=== PATIENT | female | born 1990 | race Caucasian/White ===

== ENCOUNTER 2017-12-23 07:53 | Emergency (ER) | payer BC, SELFPAY ==
--- OUTSIDE RECORDS SUMMARY | 2017-12-23 07:55 | XMS REPORT | Clinical Summary ---
:1990 Author Organization [facility] Address [address] [place] [address] Care Team Providers Name Role Phone Jae Dong MD Primary Care Provider Allergies Active Allergy Reactions Severity Noted Date Comments Ciprofloxacin GI Intolerance Medium 05/04/2017 Nausea & Vomiting Current Medications Prescription Sig. Disp. Refills Start Date End Date Status acetaminophen-codei Take 1 tablet Active ne (TYLENOL WITH by mouth every CODEINE #3) 300-30 4 (four) hours mg per tablet as needed for moderate pain. promethazine Take 25 mg by Active (PHENERGAN) 25 MG mouth every 6 tablet (six) hours as needed for nausea or vomiting. ranitidine (ZANTAC) Take 150 mg by Active 150 MG tablet mouth nightly as needed for heartburn. CARAFATE 100 mg/mL 05/03/2017 Discontinued suspension 7 PEPCID 20 mg tablet 05/03/2017 Discontinued 7 ZOFRAN, 05/03/2017 Discontinued HYDROCHLORIDE, 4 mg 7 tablet acetaminophen-codei 05/01/2017 Discontinued ne (TYLENOL WITH 7 CODEINE #3) 300-30 mg per tablet promethazine 05/01/2017 Discontinued (PHENERGAN) 25 MG 7 tablet sucralfate Take 1 g by Discontinued (CARAFATE) 100 mouth 3 7 mg/mL suspension (three) times a day as needed. famotidine (PEPCID) Take 20 mg by Discontinued 20 MG tablet mouth every 12 7 (twelve) hours. ondansetron Take 4 mg by Discontinued (ZOFRAN) 4 MG mouth every 12 7 tablet (twelve) hours as needed for nausea or vomiting. esomeprazole Take 20 mg by Discontinued (NexIUM) 20 MG mouth 2 (two) 7 capsule times a day. amitriptyline Take 1 tablet 30 tablet 0 05/06/2017 (ELAVIL) 25 MG (25 mg total) 7 tablet by mouth nightly for 30 days. sucralfate Take 10 mL (1 414 mL 2 05/07/2017 (CARAFATE) 100 g total) by 7 mg/mL suspension mouth every 6 (six) hours for 30 days. ALPRAZolam (XANAX) Take 1 tablet 15 tablet 0 05/07/2017 0.25 MG tablet (0.25 mg 7 total) by mouth daily as needed for anxiety for up to 15 days. ondansetron Take 1 tablet 20 tablet 0 05/07/2017 (ZOFRAN) 4 MG (4 mg total) 7 tablet by mouth every 12 (twelve) hours as needed for nausea or vomiting for up to 30 days. acetaminophen-codei Take 1 tablet 30 tablet 0 05/07/2017 ne 300-15 mg per by mouth every 7 tablet 4 (four) hours as needed for moderate pain for up to 10 days. esomeprazole Take 1 capsule 60 capsule 0 05/07/2017 (NexIUM) 40 MG (40 mg total) 7 capsule by mouth 2 (two) times a day for 30 days. ferrous sulfate 325 Take 1 tablet 30 tablet 0 05/07/2017 (65 FE) MG EC (325 mg total) 7 tablet by mouth daily for 30 days. Active Problems Problem Noted Date Peptic ulcer disease 05/12/2017 Anxiety 05/12/2017 Iron deficiency anemia 05/12/2017 Dehydration 05/06/2017 Tachycardia 05/04/2017 Encounters Date Type Specialty Care Team Description 05/07/2017 Anesthesia Event General Internal [facility], Medicine Estevan Hammonds MD 05/07/2017 Procedure Pass General Surgery 05/07/2017 Surgery General Surgery Ernie Galeana EGD WITH AMAYA Benitez MD USING COLD FORCEPS 05/07/2017 Procedure Pass Gastroenterology 05/04/2017 Hospital General Internal Brgeri, Kevin Tachycardia (Primary Dx); - Encounter Dyllan Irvin, MD Intractable vomiting with nausea, unspecified vomiting type; 05/07/2017 Perry, Dehydration; MD Mone Abdominal pain, acute, generalized; Leukocytosis, unspecified type; SIRS (systemic inflammatory response syndrome); PUD (peptic ulcer disease); Anxiety after 12/22/2016 Immunizations Name Dates Previously Given Next Due Pneumococcal Conjugate 13-Valent 05/06/2017 Social History Tobacco Use Types Packs/Day Years Used Date Never Assessed Sex Assigned at Date Recorded Not on file Last Filed Vital Signs Vital Sign Reading Time Taken Blood Pressure 108/66 05/07/2017 10:15 AM [employer] Pulse 73 05/07/2017 10:15 AM [employer] Temperature 36.8 C (98.3 F) 05/07/2017 9:45 AM [employer] Respiratory Rate 12 05/07/2017 10:15 AM [employer] Oxygen Saturation 100% 05/07/2017 10:15 AM [employer] Inhaled Oxygen Concentration - - Weight - - Height 162.6 cm (5' 4") 05/04/2017 11:45 AM [employer] Body Mass Index - - Plan of Treatment Health Maintenance Due Date Last Done Comments CERVICAL CANCER SCREENING 2010 INFLUENZA VACCINE 01/11/2018 Procedures Procedure Name Priority Date/Time Associated Comments Diagnosis SURGICAL PATHOLOGY Routine 05/07/2017 10:11 Results for this REQUEST AM [employer] procedure are in the results section. EGD WITH BIOPSY 05/07/2017 8:15 G.I BLEED AM [employer] ESTIMATED GFR Routine 05/07/2017 5:48 Results for this AM [employer] procedure are in the results section. TOTAL IRON BINDING Routine 05/07/2017 5:48 Results for this CAPACITY AM [employer] procedure are in the results section. PROTHROMBIN TIME WITH Routine 05/07/2017 5:48 Results for this INR AM [employer] procedure are in the results section. BASIC METABOLIC PANEL Routine 05/07/2017 5:48 Results for this AM [employer] procedure are in the results section. HC COMPLETE BLD COUNT Routine 05/07/2017 5:48 Results for this W/AUTO DIFF AM [employer] procedure are in the results section. ESTIMATED GFR Routine 05/06/2017 5:02 Results for this AM [employer] procedure are in the results section. COMPREHENSIVE Routine 05/06/2017 5:02 Results for this METABOLIC PANEL AM [employer] procedure are in the results section. CBC HEMOGRAM Routine 05/06/2017 5:02 Results for this AM [employer] procedure are in the results section. URINE DRUGS OF ABUSE Routine 05/05/2017 4:30 Results for this SCREEN PM [employer] procedure are in the results section. GASTRIN LEVEL Routine 05/05/2017 12:39 Results for this PM [employer] procedure are in the results section. ESTIMATED GFR Routine 05/05/2017 10:30 Results for this AM [employer] procedure are in the results section. COMPREHENSIVE Routine 05/05/2017 10:30 Results for this METABOLIC PANEL AM [employer] procedure are in the results section. HC COMPLETE BLD COUNT Routine 05/05/2017 10:30 Results for this W/AUTO DIFF AM [employer] procedure are in the results section. BLOOD CULTURE, AEROBIC Routine 05/04/2017 4:59 Results for this & ANAEROBIC PM [employer] procedure are in the results section. BLOOD CULTURE, AEROBIC Routine 05/04/2017 4:56 Results for this & ANAEROBIC PM [employer] procedure are in the results section. CT ABDOMEN PELVIS W STAT 05/04/2017 4:38 Results for this CONTRAST PM [employer] procedure are in the results section. XR CHEST 2 VW STAT 05/04/2017 2:59 Results for this PM [employer] procedure are in the results section. US GALLBLADDER STAT 05/04/2017 1:49 Results for this PM [employer] procedure are in the results section. HCG QUALITATIVE, URINE STAT 05/04/2017 12:17 Results for this SCREEN PM [employer] procedure are in the results section. URINALYSIS SCREEN AND STAT 05/04/2017 12:17 Results for this MICROSCOPY, WITH PM [employer] procedure are in REFLEX TO CULTURE the results section. URINE CULTURE STAT 05/04/2017 12:17 Results for this PM [employer] procedure are in the results section. HC COMPLETE BLD COUNT STAT 05/04/2017 11:59 Results for this W/AUTO DIFF AM [employer] procedure are in the results section. LIPASE LEVEL STAT 05/04/2017 11:48 Results for this AM [employer] procedure are in the results section. ESTIMATED GFR STAT 05/04/2017 11:48 Results for this AM [employer] procedure are in the results section. COMPREHENSIVE STAT 05/04/2017 11:48 Results for this METABOLIC PANEL AM [employer] procedure are in the results section. after 12/22/2016 Results Surgical pathology request (05/07/2017 10:11 AM) [facility] DEPARTMENT OF PATHOLOGY AND GENOMIC MEDICINE Surgical pathology report See link below for PDF [facility] DEPARTMENT OF Lab Report PATHOLOGY AND GENOMIC MEDICINE Result status This is Final Report to [facility] DEPARTMENT OF [id number] PATHOLOGY AND GENOMIC MEDICINE Performing Organization Address City/[facility] Phone Number [facility] DEPARTMENT OF PATHOLOGY AND [address] [place] [phone] [facility] Total iron binding capacity (05/07/2017 5:48 AM) Iron level 12 (L) 37 - 145 ug/dL [facility] DEPARTMENT OF PATHOLOGY AND GENOMIC MEDICINE Iron binding capacity 367 200 - 400 ug/dL [facility] DEPARTMENT OF PATHOLOGY AND GENOMIC MEDICINE % Saturation 3.3 (L) 15.0 - 38.0 % [facility] DEPARTMENT OF PATHOLOGY AND GENOMIC MEDICINE Specimen Plasma specimen Performing Organization Address [facility] Phone Number [facility] DEPARTMENT PATHOLOGY AND [address] [place] [address] [facility] Estimated GFR (05/07/2017 5:48 AM)Only the most recent of4 resultswithin the time period is included. GFR Non Af Amer >90 mL/min/1.73 m2 [facility] DEPARTMENT OF PATHOLOGY AND GENOMIC MEDICINE GFR Af Amer >90 mL/min/1.73 m2 [facility] DEPARTMENT OF Comment: PATHOLOGY AND [employer] Chronic kidney disease: <60 mL/min/1.73m2 MEDICINE Kidney failure: <15 mL/min/1.73m2 The estimated GFR is calculated from the IDMS-traceable Modification of Diet in Renal Disease Equation. The accuracy of the calculation is poor when the creatinine is normal. Calculated values >90 mL/min/1.73m2 are not reported. This equation has not been validated in children (<18 years), women, the elderly (>70 years), or ethnic groups other than Caucasians and Americans. Specimen Plasma specimen Performing Organization Address City/[facility] Phone Number [facility] DEPARTMENT OF PATHOLOGY AND [address] [place] [phone] [facility] Prothrombin time with INR (05/07/2017 5:48 AM) Prothrombin time 13.5 12.0 - 15.0 sec [facility] DEPARTMENT OF PATHOLOGY AND GENOMIC MEDICINE INR 1.0 [facility] DEPARTMENT OF Comment: PATHOLOGY AND GENOMIC The International Normalized Ratio (INR) is a therapeutic MEDICINE monitoring tool for patients who are stable on oral anticoagulant therapy. An INR of 2.0-3.0 is suggested for deep vein thrombosis/pulmonary embolism. Specimen Blood Performing Organization Address City/[facility]/Zipcode Phone Number [facility] DEPARTMENT OF PATHOLOGY AND [address] [place] [phone] GENOMIC MEDICINE CBC with platelet and differential (05/07/2017 5:48 AM)Only the most recent of3 resultswithin the time period is included. WBC 8.17 4.50 - 11.00 k/uL [facility] DEPARTMENT OF PATHOLOGY AND GENOMIC MEDICINE RBC 3.51 (L) 4.20 - 5.50 m/uL [facility] DEPARTMENT OF PATHOLOGY AND GENOMIC MEDICINE HGB 7.9 (L) 12.0 - 16.0 g/dL [facility] DEPARTMENT OF PATHOLOGY AND GENOMIC MEDICINE HCT 27.2 (L) 37.0 - 47.0 % [facility] DEPARTMENT OF PATHOLOGY AND GENOMIC MEDICINE MCV 77.5 (L) 82.0 - 100.0 fL [facility] DEPARTMENT OF PATHOLOGY AND GENOMIC MEDICINE MCH 22.5 (L) 27.0 - 34.0 pg [facility] DEPARTMENT OF PATHOLOGY AND GENOMIC MEDICINE MCHC 29.0 (L) 31.0 - 37.0 g/dL [facility] DEPARTMENT OF PATHOLOGY AND GENOMIC MEDICINE RDW - SD 48.6 37.0 - 55.0 fL [facility] DEPARTMENT OF PATHOLOGY AND GENOMIC MEDICINE MPV 10.2 8.8 - 13.2 fL [facility] DEPARTMENT OF PATHOLOGY AND GENOMIC MEDICINE Platelet count 411 (H) 150 - 400 k/uL [facility] DEPARTMENT OF PATHOLOGY AND GENOMIC MEDICINE Nucleated RBC 0.00 /100 WBC [facility] DEPARTMENT OF PATHOLOGY AND GENOMIC MEDICINE Neutrophils 53.3 39.0 - 69.0 % [facility] DEPARTMENT OF PATHOLOGY AND GENOMIC MEDICINE Lymphocytes 30.1 25.0 - 45.0 % [facility] DEPARTMENT OF PATHOLOGY AND GENOMIC MEDICINE Monocytes 10.3 (H) 0.0 - 10.0 % [facility] DEPARTMENT OF PATHOLOGY AND GENOMIC MEDICINE Eosinophils 5.6 (H) 0.0 - 5.0 % [facility] DEPARTMENT OF PATHOLOGY AND GENOMIC MEDICINE Basophils 0.6 0.0 - 1.0 % [facility] DEPARTMENT OF PATHOLOGY AND GENOMIC MEDICINE Immature granulocytes 0.1Comment: 0.0 - 1.0 % [facility] DEPARTMENT OF "Immature PATHOLOGY AND GENOMIC granulocytes" MEDICINE (promyelocytes, myelocytes, metamyelocytes) Specimen Blood Performing Organization Address City/State/Zipcode Phone Number [facility] DEPARTMENT OF PATHOLOGY AND [address] [place] [address] GENOMIC MEDICINE Basic metabolic panel (05/07/2017 5:48 AM) Sodium 137 135 - 148 mEq/L [facility] DEPARTMENT OF PATHOLOGY AND GENOMIC MEDICINE Potassium 4.2 3.5 - 5.0 mEq/L [facility] DEPARTMENT OF PATHOLOGY AND GENOMIC MEDICINE Chloride 100 98 - 112 mEq/L [facility] DEPARTMENT OF PATHOLOGY AND GENOMIC MEDICINE CO2 24 24 - 31 mEq/L [facility] DEPARTMENT OF PATHOLOGY AND GENOMIC MEDICINE Anion gap 13 7 - 15 mEq/L [facility] DEPARTMENT OF PATHOLOGY Comment: AND [facility] Starting from September , anion gap calculation no longer incorporates potassium. Please note the change. BUN 6 6 - 20 mg/dL [facility] DEPARTMENT OF PATHOLOGY AND GENOMIC MEDICINE Creatinine 0.7 0.5 - 0.9 mg/dL [facility] DEPARTMENT OF PATHOLOGY AND GENOMIC MEDICINE Glucose 93 65 - 99 mg/dL [facility] DEPARTMENT OF PATHOLOGY AND GENOMIC MEDICINE Calcium 8.8 8.3 - 10.2 mg/dL [facility] DEPARTMENT OF PATHOLOGY AND GENOMIC MEDICINE Specimen Plasma specimen Performing Organization Address City/State/Zipcode Phone Number [facility] DEPARTMENT OF PATHOLOGY [address] [address] [facility] CBC hemogram (05/06/2017 5:02 AM) WBC 8.66 4.50 - 11.00 k/uL [facility] DEPARTMENT OF PATHOLOGY AND GENOMIC MEDICINE RBC 3.28 (L) 4.20 - 5.50 m/uL [facility] DEPARTMENT OF PATHOLOGY AND GENOMIC MEDICINE HGB 7.6 (L) 12.0 - 16.0 g/dL [facility] DEPARTMENT OF PATHOLOGY AND GENOMIC MEDICINE HCT 25.6 (L) 37.0 - 47.0 % [facility] DEPARTMENT OF PATHOLOGY AND GENOMIC MEDICINE MCV 78.0 (L) 82.0 - 100.0 fL [facility] DEPARTMENT OF PATHOLOGY AND GENOMIC MEDICINE MCH 23.2 (L) 27.0 - 34.0 pg [facility] DEPARTMENT OF PATHOLOGY AND GENOMIC MEDICINE MCHC 29.7 (L) 31.0 - 37.0 g/dL [facility] DEPARTMENT OF PATHOLOGY AND GENOMIC MEDICINE RDW - SD 49.4 37.0 - 55.0 fL [facility] DEPARTMENT OF PATHOLOGY AND GENOMIC MEDICINE MPV 9.9 8.8 - 13.2 fL [facility] DEPARTMENT OF PATHOLOGY AND GENOMIC MEDICINE Platelet count 390 150 - 400 k/uL [facility] DEPARTMENT OF PATHOLOGY AND GENOMIC MEDICINE Nucleated RBC 0.20 /100 WBC [facility] DEPARTMENT OF PATHOLOGY AND GENOMIC MEDICINE Specimen Blood Performing Organization Address City/[facility] Phone Number [facility] DEPARTMENT OF PATHOLOGY [place] [address] GENOMIC MEDICINE Comprehensive metabolic panel (05/06/2017 5:02 AM)Only the most recent of3 resultswithin the time period is included. Sodium 136 135 - 148 mEq/L [facility] DEPARTMENT OF PATHOLOGY AND GENOMIC MEDICINE Potassium 4.1 3.5 - 5.0 mEq/L [facility] DEPARTMENT OF PATHOLOGY AND GENOMIC MEDICINE Chloride 100 98 - 112 mEq/L [facility] DEPARTMENT OF PATHOLOGY AND GENOMIC MEDICINE CO2 23 (L) 24 - 31 mEq/L [facility] DEPARTMENT OF PATHOLOGY AND GENOMIC MEDICINE Anion gap 13 7 - 15 mEq/L [facility] DEPARTMENT OF Comment: PATHOLOGY AND GENOMIC Starting from September , anion gap calculation MEDICINE no longer incorporates potassium. Please note the change. BUN 7 6 - 20 mg/dL [facility] DEPARTMENT OF PATHOLOGY AND GENOMIC MEDICINE Creatinine 0.7 0.5 - 0.9 mg/dL [facility] DEPARTMENT OF PATHOLOGY AND GENOMIC MEDICINE Glucose 90 65 - 99 mg/dL [facility] DEPARTMENT OF PATHOLOGY AND GENOMIC MEDICINE Calcium 8.4 8.3 - 10.2 mg/dL [facility] DEPARTMENT OF PATHOLOGY AND GENOMIC MEDICINE Protein 6.1 (L) 6.3 - 8.3 g/dL [facility] DEPARTMENT OF Comment: PATHOLOGY AND GENOMIC [place] 4.6-7.0 g/dL MEDICINE 1 week 4.4-7.6 g/dL 7 months-1year5.1-7.3 g/dL 1-2 years5.6-7.5 g/dL >3 years6.0-8.0 g/dL 18-150 6.3-8.3 g/dL Albumin 2.9 (L) 3.5 - 5.0 g/dL [facility] DEPARTMENT OF PATHOLOGY AND GENOMIC MEDICINE A/G ratio 0.9 0.7 - 3.8 [facility] DEPARTMENT OF PATHOLOGY AND GENOMIC MEDICINE Alkaline phosphatase 58 35 - 104 U/L [facility] DEPARTMENT OF PATHOLOGY AND GENOMIC MEDICINE AST 17 10 - 35 U/L [facility] DEPARTMENT OF PATHOLOGY AND GENOMIC MEDICINE ALT 16 5 - 50 U/L [facility] DEPARTMENT OF PATHOLOGY AND GENOMIC MEDICINE Total bilirubin <0.2 0.0 - 1.2 mg/dL [facility] DEPARTMENT OF PATHOLOGY AND GENOMIC MEDICINE Specimen Plasma specimen Performing Organization Address City/State/Zipcode Phone Number [facility] DEPARTMENT OF PATHOLOGY AND [address] [place] [phone] [facility] Urine drugs of abuse screen (05/05/2017 4:30 PM) Amphetamine screen, urine Negative [facility] DEPARTMENT OF PATHOLOGY AND GENOMIC MEDICINE Barbiturate screen, urine Negative [facility] DEPARTMENT OF PATHOLOGY AND GENOMIC MEDICINE Benzodiazepine screen, Negative [facility] DEPARTMENT OF urine PATHOLOGY AND GENOMIC MEDICINE Cannabinoid screen, urine Positive (A) [facility] DEPARTMENT OF PATHOLOGY AND GENOMIC MEDICINE Cocaine screen, urine Negative [facility] DEPARTMENT OF PATHOLOGY AND GENOMIC MEDICINE Methadone metabolite Negative [facility] DEPARTMENT OF (EDDP), urine PATHOLOGY AND GENOMIC MEDICINE Opiates screen, urine Positive (A) [facility] DEPARTMENT OF PATHOLOGY AND GENOMIC MEDICINE Oxycodone screen, urine Negative [facility] DEPARTMENT OF PATHOLOGY AND GENOMIC MEDICINE Phencyclidine screen, urine Negative [facility] DEPARTMENT OF PATHOLOGY AND GENOMIC MEDICINE Tricyclic screen, urine Negative [facility] DEPARTMENT OF Comment: PATHOLOGY AND GENOMIC Drug screen minimum concentration of detectability MEDICINE Holmkvxgtoir1557 ng/mL Barbiturates 200 ng/mL Lmsoakiuaegrrgz859 ng/mL Mmxwovl804 ng/mL Jhzovnubh490 ng/mL Iuqhnty857 ng/mL Yfmrawuit246 ng/mL Phencyclidine 25 ng/mL Jdtlssnhtdso85 ng/mL Qwcuwsyiqd7584 ng/mL Negative test results indicates presumptive evidence of lack of clinically significant drug concentration in this urine specimen. Positive test results are presumptive evidence of clinically significant drug concentration in this urine specimen. Testing performed for medical purposes only. Specimen Urine Performing Organization Address City/[facility] Phone Number [facility] DEPARTMENT OF [facility] AND [address] [place] [address] [facility] MEDICINE Gastrin level (05/05/2017 12:39 PM) Gastrin 136 (H) 0 - 100 pg/mL [facility] Comment: Performed by [facility], [address] [place], [place] [id number] [email or web address], Tai Paz MD - Lab. Director Specimen Serum Performing Organization Address City/[facility]/Zipcode Phone Number [facility] [address] [place] [address] Blood culture, aerobic & anaerobic (05/04/2017 4:59 PM)Only the most recent of2 resultswithin the time period is included. Blood culture isolate No growth after 5 days of incubation. [facility] DEPARTMENT OF Comment: PATHOLOGY AND GENOMIC Specimen Information MEDICINE Specimen Source: Blood Specimen Site: Wrist, left Specimen Blood - Wrist, left Performing Organization Address [facility] Phone Number [facility] DEPARTMENT OF PATHOLOGY AND [address] [place] [address] Abdomen Pelvis W Contrast (05/04/2017 4:38 PM) Narrative Performed At EXAMINATION:CT ABDOMEN PELVIS W CONTRAST [facility] CLINICAL HISTORY:ABDOMINAL PAIN TECHNIQUE: Multiple axial images of the abdomen and pelvis were obtained following intravenous administration of iodinated contrast. Sagittal and coronal computerized reformatted images were also obtained. Radiation dose reduction technique was utilized. COMPARISON:None. FINDINGS: Abdomen: The appendix is visualized and has a normal appearance. The kidneys function symmetrically. No calcified gallstones are seen. The liver, spleen, pancreas, and adrenal glands within normal limits. The abdominal aorta is of normal caliber. Pelvis: 1. No mass, fluid collection, or adenopathy is identified in the pelvis. IMPRESSION: No acute abnormality. [facility]-[id number] Procedure Note [facility], Radiology Results Incoming - 05/04/2017 4:46 PM [employer] EXAMINATION: CT ABDOMEN PELVIS W CONTRAST CLINICAL HISTORY: ABDOMINAL PAIN TECHNIQUE: Multiple axial images of the abdomen and pelvis were obtained following intravenous administration of iodinated contrast. Sagittal and coronal computerized reformatted images were also obtained. Radiation dose reduction technique was utilized. COMPARISON: None. FINDINGS: Abdomen: The appendix is visualized and has a normal appearance. The kidneys function symmetrically. No calcified gallstones are seen. The liver, spleen, pancreas, and adrenal glands within normal limits. The abdominal aorta is of normal caliber. Pelvis: 1. No mass, fluid collection, or adenopathy is identified in the pelvis. IMPRESSION: No acute abnormality. [id number] Performing Organization Address [facility]/Zipcode Phone Number [facility] [address] [place] [address] XR Chest 2 Vw (05/04/2017 2:59 PM) Narrative Performed At EXAMINATION:XR CHEST 2 VW [facility] CLINICAL HISTORY:Pneumonia COMPARISON:None. IMPRESSION: Frontal and lateral views reveal a normal cardiomediastinal silhouette. Lungs are clear. Pleural margins are sharp. The remainder of the examination is unremarkable. [facility]-[id number] Procedure Note [facility], Radiology Results Incoming - 05/04/2017 3:04 PM [employer] EXAMINATION: XR CHEST 2 VW CLINICAL HISTORY: Pneumonia COMPARISON: None. IMPRESSION: Frontal and lateral views reveal a normal cardiomediastinal silhouette. Lungs are clear. Pleural margins are sharp. The remainder of the examination is unremarkable. [facility]-[id number] Performing Organization Address [facility] Phone Number [facility] [address] [place] [address] [place] Gallbladder (05/04/2017 1:49 PM) Narrative Performed At EXAMINATION:US GALLBLADDER [facility] CLINICAL HISTORY:Cholecystitis COMPARISON:Gallbladder ultrasound from 01/18/2012 IMPRESSION: The gallbladder is unremarkable. No gallstones or sludge is identified. No pericholecystic fluid or gallbladder wall thickening. The common bile duct measures 0.4 cm and the gallbladder wall measures 0.1 cm. Both of these measurements are within normal limits. No radiographic evidence of acute cholecystitis. INCIDENTAL FINDINGS: The portal vein is patent and demonstrates hepatopedal flow. The diameter of the portal vein measures 1.1 cm. Flow velocity within the portal vein measures 45 cm/s. 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 No gallstones or sludge is identified. No pericholecystic fluid or gallbladder wall thickening. The common bile duct measures 0.4 cm and the gallbladder wall measures 0.1 cm. Both of these measurements are within normal limits. No radiographic evidence of acute cholecystitis. INCIDENTAL FINDINGS: The portal vein is patent and demonstrates hepatopedal flow. The diameter of the portal vein measures 1.1 cm. Flow velocity within the portal vein measures 45 cm/s. [facility]-[id number] Performing Organization Address [facility]/[place] Phone Number [facility] [address] [place] [address] Urinalysis screen and microscopy, with reflex to culture (05/04/2017 12:17 PM) Specimen site Clean catch [facility] DEPARTMENT OF PATHOLOGY AND GENOMIC MEDICINE Color, UA Straw [facility] DEPARTMENT OF PATHOLOGY AND GENOMIC MEDICINE Appearance, UA Clear [facility] DEPARTMENT OF PATHOLOGY AND GENOMIC MEDICINE Specific gravity, UA 1.014 1.001 - 1.035 [facility] DEPARTMENT OF PATHOLOGY AND GENOMIC MEDICINE pH, UA 6.0 5.0 - 8.5 [facility] DEPARTMENT OF PATHOLOGY AND GENOMIC MEDICINE Protein, UA Negative Negative [facility] DEPARTMENT OF PATHOLOGY AND GENOMIC MEDICINE Glucose, UA Negative Negative [facility] DEPARTMENT OF PATHOLOGY AND GENOMIC MEDICINE Ketones, UA 1+ (A) Negative [facility] DEPARTMENT OF PATHOLOGY AND GENOMIC MEDICINE Bilirubin, UA Negative Negative [facility] DEPARTMENT OF PATHOLOGY AND GENOMIC MEDICINE Blood, UA Negative Negative [facility] DEPARTMENT OF PATHOLOGY AND GENOMIC MEDICINE Nitrite, UA Negative Negative [facility] DEPARTMENT OF PATHOLOGY AND GENOMIC MEDICINE Urobilinogen, UA <2.0 <2.0 [facility] DEPARTMENT OF PATHOLOGY AND GENOMIC MEDICINE Leukocyte esterase, UA Negative Negative [facility] DEPARTMENT OF PATHOLOGY AND GENOMIC MEDICINE Epithelial cells, UA 7 /HPF [facility] DEPARTMENT OF PATHOLOGY AND GENOMIC MEDICINE WBC, UA 1 0 - 4 /HPF [facility] DEPARTMENT OF PATHOLOGY AND GENOMIC MEDICINE RBC, UA 1 0 - 2 /HPF [facility] DEPARTMENT OF PATHOLOGY AND GENOMIC MEDICINE Bacteria, UA Few None seen [facility] DEPARTMENT OF PATHOLOGY AND GENOMIC MEDICINE Yeast, UA None seen [facility] DEPARTMENT OF PATHOLOGY AND GENOMIC MEDICINE Yeast with pseudohyphae, UA None seen [facility] DEPARTMENT OF PATHOLOGY AND GENOMIC MEDICINE Specimen Urine Performing Organization Address City/[facility] Phone Number [facility] DEPARTMENT OF PATHOLOGY AND [address] [place], [place] [phone] [facility] hCG qualitative, urine screen (05/04/2017 12:17 PM) hCG qualitative, urine NegativeComment: [facility] DEPARTMENT OF Sensitivity of HCG test: 25 PATHOLOGY AND GENOMIC mIU/mL MEDICINE Specimen Urine Performing Organization Address City/[facility] Phone Number [facility] DEPARTMENT OF PATHOLOGY AND [address] [place] [phone] [facility] Urine culture (05/04/2017 12:17 PM) Urine culture SEE COMMENTComment: Bacteriuria [facility] DEPARTMENT OF PATHOLOGY screen negative. AND GENOMIC MEDICINE Performing Organization Address City/[facility]/Zipcode Phone Number [facility] DEPARTMENT OF PATHOLOGY AND [address] [place] [phone] [facility] Lipase level (05/04/2017 11:48 AM) Lipase 35 13 - 60 U/L [facility] DEPARTMENT OF PATHOLOGY AND GENOMIC MEDICINE Specimen Plasma specimen Performing Organization Address City/[facility]/Zipcode Phone Number [facility] DEPARTMENT OF PATHOLOGY AND [address] [place] [phone] [facility] after 12/22/2016 Insurance Payer Benefit Plan / Group Subscriber ID Type Phone Address BCBS BCBS CHOICE PPO/[employer] EMPL PPO xxxxxxxxxxxx PPO
--- OUTSIDE RECORDS SUMMARY | 2017-12-23 07:57 | XMS REPORT | Summary of Care ---
:1990 Author Organization [facility] Address [id number] [place] [phone]- Encounter HQ Vladislav(FIN) [id number] Date(s): 12/20/15 - 12/21/[address] [phone] Discharge Diagnosis: Leukocytosis Discharge Diagnosis: Abdominal pain Discharge Disposition: Home Attending Physician: Siddharth Edward MD Vital Signs Most recent to oldest [Reference Range]: 1 2 Temperature Oral [96.4-99.1 DegF] 98.1 DegF 97.9 DegF (12/20/15 11:57 PM) (12/20/15 4:28 PM) Blood Pressure [90-140/60-90 mmHg] 135/75 mmHg 143/78 mmHg (12/20/15 11:57 PM) *HI* (12/20/15 4:28 PM) Respiratory Rate [14-20 BRMIN] 16 BRMIN 18 BRMIN (12/20/15 11:57 PM) (12/20/15 4:28 PM) Peripheral Pulse Rate [60-100 bpm] 85 bpm 98 bpm (12/20/15 11:57 PM) (12/20/15 4:28 PM) Weight 87.727 kg (12/20/15 4:28 PM) Problem List Condition Effective Dates Status Health Status Informant Gastric ulcer(Confirmed) Resolved Allergies, Adverse Reactions, Alerts Substance Reaction Severity Status NKDA Active Medications Bentyl 20 mg, 2 mL, Route: IM, Drug form: INJ, ONCE, Dosing Weight 87.727, kg, Start date: 12/20/15 22:35:00 CDT, Stop date: 12/20/15 22:35:00 CDT Notes: (Same as: Bentyl) Start Date: 12/20/15 Stop Date: 12/20/15 Status: CompletedGI cocktail 30 mL, Route: PO, Drug Form: SUSP, Dosing Weight 87.727, kg, ONCE, STAT, Start date: 12/20/15 21:27:00 CDT, Stop date: 12/20/15 21:27:00 CDT Notes: G.I. Cocktail=antacid with simethicone 22.5 mL - lidocaine viscous 7.5 mL Start Date: 12/20/15 Stop Date: 12/20/15 Status: Completedmorphine Sulfate 4 mg, Route: IVP, Drug form: INJ, ONCE, Dosing Weight 87.727, kg, Priority: STAT , Start date: 12/20/15 19:36:00 CDT, Stop date: 12/20/15 19:36:00 CDT Start Date: 12/20/15 Stop Date: 12/20/15 Status: Completedondansetron 4 mg, 2 mL, Route: IVP, Drug form: INJ, ONCE, Dosing Weight 87.727, kg, Priority : STAT, Start date: 12/20/15 18:37:00 CDT, Stop date: 12/20/15 18:37:00 CDT Notes: (Same as: Barrera) MEDICATION WASTE Product Size: 4 mgProduct Wasted: ___ mg Start Date: 12/20/15 Stop Date: 12/20/15 Status: CompletedReglan 10 mg, 2 mL, Route: IVP, Drug form: INJ, ONCE, Dosing Weight 87.727, kg, Priority: STAT, Start date:12/20/15 22:35:00 CDT, Stop date: 12/20/15 22:35:00 CDT Notes: (Same as: Reglan) Start Date: 12/20/15 Stop Date: 12/20/15 Status: CompletedSaline Flush 0.9% 10 mL, Route: IVP, Drug Form: INJ, Dosing Weight 87.727, kg, PRN, PRN Line Flush , Start date: 12/20/15 18:37:00 CDT, Duration: 30 day, Stop date: 01/19/16 18:36 :00 CDT Notes: (Same as: BD Posiflush) Start Date: 12/20/15 Stop Date: 12/21/15 Status: DiscontinuedSodium Chloride 0.9% (Bolus) IV 1,000 mL, 2,000 ml/hr, Infuse Over: 30 minutes, Route: IV, 1,000, Drug form: INJ , ONCE, Priority: STAT, Dosing Weight 87.727 kg, Start date: 12/20/15 18:37:00 CDT, Duration: 1 doses or times, Stop date: 12/20/15 18:37:00 CDT Start Date: 12/20/15 Stop Date: 12/20/15 Status: CompletedTylenol with Codeine #3 oral tablet 1 - 2 tab, PO, Q4H, PRN Pain, X 2 day, # 20 tab, 0 Refill(s) Start Date: 12/20/15 Stop Date: 12/22/15 Status: CompletedZofran 4 mg oral tablet 4 mg=1 tab, PO, BID, X 5 day, # 10 tab, 0 Refill(s) Start Date: 12/21/15 Stop Date: 12/26/15 Status: Suspended Results ELECTROLYTES Most recent to oldest [Reference Range]: 1 Sodium Lvl [135-145 mEq/L] 139 mEq/L (12/20/15 7:23 PM) Potassium Lvl [3.5-5.1 mEq/L] 3.7 mEq/L (12/20/15 7:23 PM) Chloride Lvl [95-109 mEq/L] 106 mEq/L (12/20/15 7:23 PM) CO2 [24-32 mEq/L] 25 mEq/L (12/20/15 7:23 PM) AGAP [10.0-20.0 mEq/L] 11.7 mEq/L (12/20/15 7:23 PM) CHEM PANEL Most recent to oldest [Reference Range]: 1 Creatinine Lvl [0.50-1.40 mg/dL] 0.76 mg/dL (12/20/15 7:23 PM) eGFR 109 mL/min/1.73m2 1 *NA* (12/20/15 7:23 PM) BUN [7-22 mg/dL] 8 mg/dL (12/20/15 7:23 PM) Glucose Lvl [70-99 mg/dL] 95 mg/dL (12/20/15 7:23 PM) Calcium Lvl [8.5-10.5 mg/dL] 8.8 mg/dL (12/20/15 7:23 PM) Lipase Lvl [73-393 unit/L] 129 unit/L (12/20/15 7:23 PM) 1Result Comment: The eGFR is calculated using the CKD-EPI formula. In most young , healthy individualsthe eGFR will be >90 mL/min/1.73m2. The eGFR declines with age. An eGFR of 60-89 may be normal in some populations, particularly the elderly, for whom the CKD-EPI formula has not been extensively validated. Use of the eGFR is not recommended in the following populations: Individuals with unstable creatinine concentrations, including patients and those with serious co-morbid conditions. Patients with extremes in muscle mass or diet. The data above are obtained from the National Kidney Disease Education Program ( NKDEP) which additionally recommends that when the eGFR is used in patients with extremes of body mass index for purposesof drug dosing, the eGFR should be multiplied by the estimated BMI.URINE CHEM Most recent to oldest [Reference Range]: 1 U Preg [Negative] Negative (12/20/15 6:17 PM) URINE AND STOOL Most recent to oldest [Reference Range]: 1 UA Turbidity [Clear] Clear (12/20/15 6:17 PM) UA Color [Yellow] Yellow *NA* (12/20/15 6:17 PM) UA pH [5.0-8.0] >=9.0 *ABN* (12/20/15 6:17 PM) UA Spec Grav [<=1.030] 1.015 (12/20/15 6:17 PM) UA Glucose [Negative] Negative (12/20/15 6:17 PM) UA Blood [Negative] Negative (12/20/15 6:17 PM) UA Ketones [Negative] Negative *NA* (12/20/15 6:17 PM) UA Protein [Negative] Trace *ABN* (12/20/15 6:17 PM) UA Urobilinogen [0.1-1.0 EU/dL] 0.2 EU/dL (12/20/15 6:17 PM) UA Bili [Negative] Negative *NA* (12/20/15 6:17 PM) UA Leuk Est [Negative] Negative (12/20/15 6:17 PM) UA Nitrite [Negative] Negative (12/20/15 6:17 PM) UA WBC [None Seen /HPF] 0-2 /HPF (12/20/15 6:17 PM) UA RBC [0-2 /HPF] 0-2 /HPF (12/20/15 6:17 PM) UA Bacteria [None Seen /HPF] Few /HPF (12/20/15 6:17 PM) UA Sq Epi [Few /LPF] Moderate /LPF *ABN* (12/20/15 6:17 PM) Micro? Performed (12/20/15 6:17 PM) HEMATOLOGY Most recent to oldest [Reference Range]: 1 WBC [3.7-10.4 K/CMM] 16.4 K/CMM *HI* (12/20/15 7:23 PM) RBC [4.20-5.40 M/CMM] 4.47 M/CMM (12/20/15 7:23 PM) Hgb [12.0-16.0 g/dL] 11.6 g/dL *LOW* (12/20/15 7:23 PM) Hct [36.0-48.0 %] 36.3 % (12/20/15 7:23 PM) MCV [80.0-98.0 fL] 81.3 fL (12/20/15 7:23 PM) MCH [27.0-31.0 pg] 25.9 pg *LOW* (12/20/15 7:23 PM) MCHC [32.0-36.0 g/dL] 31.9 g/dL *LOW* (12/20/15 7:23 PM) RDW [11.5-14.5 %] 18.3 % *HI* (12/20/15 7:23 PM) Platelet [133-450 K/CMM] 450 K/CMM (12/20/15 7:23 PM) MPV [7.4-10.4 fL] 8.0 fL (12/20/15 7:23 PM) Segs [45.0-75.0 %] 80.0 % *HI* (12/20/15 7:23 PM) Lymphocytes [20.0-40.0 %] 14.3 % *LOW* (12/20/15 7:23 PM) Monocytes [2.0-12.0 %] 4.7 % (12/20/15 7:23 PM) Eosinophils [0.0-4.0 %] 0.6 % (12/20/15 7:23 PM) Basophils [0.0-1.0 %] 0.4 % (12/20/15 7:23 PM) Segs-Bands # [1.5-8.1 K/CMM] 13.1 K/CMM *HI* (12/20/15 7:23 PM) Lymphocytes # [1.0-5.5 K/CMM] 2.4 K/CMM (12/20/15 7:23 PM) Monocytes # [0.0-0.8 K/CMM] 0.8 K/CMM (12/20/15 7:23 PM) Eosinophils # [0.0-0.5 K/CMM] 0.1 K/CMM (12/20/15 7:23 PM) Basophils # [0.0-0.2 K/CMM] 0.1 K/CMM (12/20/15 7:23 PM) Immunizations No data available for this section Procedures Procedure Date Related Diagnosis Body Site Tonsillectomy Social History Social History Type Response Smoking Status Current some day smoker; Ready to change: No; Concerns about tobacco use in household: No; Exposure to Tobacco Smoke None; Cigarette Smoking Last 365 Days No; Reg Smoking Cessation Counseling No Assessment and Plan No data available for this section
--- OUTSIDE RECORDS SUMMARY | 2017-12-23 07:57 | XMS REPORT | Summary of Care ---
:1990 Author Organization [facility] Address [id number] [place] [id number] Encounter HQ [email or web address]_[facility]rain(FIN) [id number] Date(s): 12/21/15 - 12/24/15 [facility] [id number] [place] [address] [phone] Discharge Disposition: Home Attending Physician: Payton Lynne MD Admitting Physician: Payton Lynne MD Vital Signs Most recent to oldest 1 2 3 [Reference Range]: Height 162.56 cm 162.56 cm (12/21/15 9:10 PM) (12/21/15 3:41 PM) Temperature Oral [96.4-99.1 98.1 DegF 97.8 DegF 97.4 DegF DegF] (12/24/15 4:00 PM) (12/24/15 12:00 PM) (12/24/15 8:00 AM) Blood Pressure [90-140/60-90 118/74 mmHg 117/74 mmHg 130/79 mmHg mmHg] (12/24/15 4:00 PM) (12/24/15 12:00 PM) (12/24/15 8:00 AM) Respiratory Rate [14-20 BRMIN] 18 BRMIN 18 BRMIN 18 BRMIN (12/24/15 4:00 PM) (12/24/15 12:00 PM) (12/24/15 8:00 AM) Peripheral Pulse Rate [60-100 64 bpm 65 bpm 64 bpm bpm] (12/24/15 4:00 PM) (12/24/15 12:00 PM) (12/24/15 8:00 AM) Weight 86.364 kg 88.636 kg (12/21/15 9:10 PM) (12/21/15 3:41 PM) Body Mass Index 32.68 m2 33.54 m2 (12/21/15 9:10 PM) (12/21/15 3:41 PM) Problem List Condition Effective Dates Status Health Status Informant Gastric ulcer(Confirmed) Resolved Allergies, Adverse Reactions, Alerts Substance Reaction Severity Status NKDA Active Medications Carafate 1 g/10 mL oral suspension 1 gm=10 mL, PO, QID, # 1200 mL, 0 Refill(s), Pharmacy: [facility] [id number] [facility] Start Date: 12/24/15 Stop Date: 01/23/16 Status: OrderedCarafate 1 g/10 mL oral suspension 1 gm, 10 mL, Route: PO, Drug form: SUSP, QID, Dosing Weight 86.364, kg, Start date: 12/23/15 13:00:00 CDT, Duration: 30 day, Stop date: 01/22/16 9:00:00 CDT Notes: Enteral feeds may interfere with the absorption of this medication. Shake well. Take 1 hr before or 2 hrs after antacids, dairy pdt, minerals & meals. (Same As: Carafate) Start Date: 12/23/15 Stop Date: 12/24/15 Status: Discontinuedciprofloxacin 400 mg, 200 mL, Route: IVPB, Drug form: INJ, [id number], Dosing Weight 88.636, kg, Start date: 12/20/1620:00:00 CDT, Duration: 30 day, Stop date: 01/20/16 9:00:00 CDT Notes: Do not refrigerate Start Date: 12/21/15 Stop Date: 12/23/15 Status: DiscontinuedFlagyl 500 mg, 100 mL, Route: IVPB, Drug form: INJ, [id number], Dosing Weight 88.636, kg, Start date: 12/21/15 21:00:00 CDT, Duration: 30 day, Stop date: 01/20/16 13:00: 00 CDT Notes: (Same as: Flagyl) Avoid alcohol. Start Date: 12/21/15 Stop Date: 12/23/15 Status: Discontinuedmorphine Sulfate 4 mg, 1 mL, Route: IVP, Drug form: INJ, ONCE, Dosing Weight 88.636, kg, Priority : STAT, Start date: 12/21/15 17:05:00 CDT, Stop date: 12/21/15 17:05:00 CDT Notes: (Same as:MORPhine Sulfate) Start Date: 12/21/15 Stop Date: 12/21/15 Status: Completedmorphine Sulfate 4 mg, 1 mL, Route: IVP, Drug form: INJ, ONCE, Dosing Weight 88.636, kg, Priority : STAT, Start date: 12/21/15 16:04:00 CDT, Stop date: 12/21/15 16:04:00 CDT Notes: (Same as:MORPhine Sulfate) Start Date: 12/21/15 Stop Date: 12/21/15 Status: Completedmorphine Sulfate 4 mg, 1 mL, Route: IVP, Drug form: INJ, Q4H, Dosing Weight 88.636, kg, PRN Pain Score 7-10, Start date: 12/21/15 20:22:00 CDT, Duration: 30 day, Stop date: 02/26 20:21:00 CDT Notes: (Same as:MORPhine Sulfate) Start Date: 12/21/15 Stop Date: 12/24/15 Status: Discontinuednicotine 21 mg, 1 patch, Route: TOP, Drug form: ERFILM, Daily, Dosing Weight 86.364, kg, Start date: 12/22/1618:42:00 CDT, Duration: 30 day, Stop date: 01/22/16 9:00:00 CDT Notes: (Same as: Habitrol)"Remove old patch before application of new patch "WASTE: F/P - P Waste Black; E - P Waste Black Start Date: 12/23/15 Stop Date: 12/24/15 Status: Discontinuedondansetron 4 mg, 2 mL, Route: IVP, Drug form: INJ, Q6H, Dosing Weight 88.636, kg, PRN Nausea & Vomiting, Start date: 12/21/15 20:22:00 CDT, Duration: 30 day, Stop date: 01/20/16 20:21:00 CDT Notes: (Same as: Zofran) MEDICATION WASTE Product Size: 4 mgProduct Wasted: ___ mg Start Date: 12/21/15 Stop Date: 12/24/15 Status: Discontinuedpantoprazole 40 mg, Route: IVP, Drug form: INJ, Daily, Dosing Weight 88.636, kg, Patient is NPO, Start date: 12/22/15 9:00:00 CDT, Duration: 30 day, Stop date: 01/20/16 9: 00:00 CDT Notes: Same as: Protonix) Start Date: 12/22/15 Stop Date: 12/22/15 Status: Discontinuedpantoprazole 40 mg oral enteric coated tablet 40 mg=1 tab, PO, BID-Before Meals, # 60 tab, 0 Refill(s), Pharmacy: [facility] [id number] [facility] Start Date: 12/24/15 Stop Date: 01/23/16 Status: Orderedpantoprazole 80 mg + sodium chloride 0.9% INJ 100 mL 100 mL, Rate: 10 ml/hr, Infuse over: 10 hr, Route: IVPB, Dosing Weight 86.364 kg , Total Volume: 100,Infuse at 8 mg / hr for 72 hours for GI bleeding, Start date : 12/22/15 20:36:00 CDT, Duration: 72 hr, Stop date: 12/25/15 20:35:00 CDT Start Date: 12/22/15 Stop Date: 12/24/15 Status: DiscontinuedPhenergan + sodium chloride 0.9% INJ 50 mL 12.5 mg, 0.5 mL, Route: IVPB, Q4H, Dosing Weight 88.636, kg, PRN Nausea & Vomiting, Start date: 12/21/15 20:22:00 CDT, Duration: 30 day, Stop date: 20:21:00 CDT Notes: (Same as: Phenergan) Start Date: 12/21/15 Stop Date: 12/24/15 Status: Discontinuedpotassium chloride 20 mEq, 1 tab, Route: PO, Drug form: ERTAB, ONCE, Dosing Weight 86.364, kg, Start date: 12/24/15 9:52:00 CDT, Stop date: 12/24/15 9:52:00 CDT Notes: (Same as: K-Dur 20)"Do Not Crush" With food and full glass of water Start Date: 12/24/15 Stop Date: 12/24/15 Status: Completedpromethazine + sodium chloride 0.9% INJ 50 mL 25 mg, 1 mL, Route: IVPB, ONCE, Dosing Weight 88.636, kg, Priority: STAT, Start date: 12/21/15 16:04:00 CDT, Stop date: 12/21/15 16:04:00 CDT Notes: (Same as: Phenergan) Start Date: 12/21/15 Stop Date: 12/21/15 Status: CompletedProtonix 40 mg, 1 tab, Route: PO, Drug form: ECTAB, BID-Before Meals, Dosing Weight 86.364, kg, Start date: 12/24/15 16:30:00 CDT, Duration: 30 day, Stop date: 05/28 7:30:00 CDT Notes: Tablet should not be chewed or crushed.(Same as: Protonix) Start Date: 12/24/15 Stop Date: 12/24/15 Status: DiscontinuedProtonix + sodium chloride 0.9% 10 ml INJ (PF) 20 mL 80 mg, Route: IVP, ONCE, Start date: 12/22/15 21:16:00 CDT, Stop date: 12/22/15 21:16:00 CDT Notes: For IV push reconstitute with 10 ml 0.9% sodium chloride and push over 2 minutes. (Same as: Protonix) Start Date: 12/22/15 Stop Date: 12/23/15 Status: CompletedRemove old Nicotine patch before applying Q24H Remove old Nicotine patch before applying Q24H, ONCE, Drug form: MISC, Route: N /A, Daily, 12/24/15 21:00:00 CDT, Duration: 30 day, Stop date: 01/23/16 9:00:00 CDT Start Date: 12/24/15 Stop Date: 12/24/15 Status: CanceledSaline Flush 0.9% 10 ml, Route: IVP, Drug Form: INJ, Dosing Weight 88.636, kg, PRN, PRN Line Flush , Start date: 12/21/15 20:22:00 CDT, Duration: 30 day, Stop date: 01/20/16 20:21 :00 CDT Notes: (Same as: BD Posiflush) Start Date: 12/21/15 Stop Date: 12/24/15 Status: DiscontinuedSaline Flush 0.9% 10 mL, Route: IVP, Drug Form: INJ, Dosing Weight 88.636, kg, PRN, PRN Line Flush , Start date: 12/21/15 16:04:00 CDT, Duration: 30 day, Stop date: 01/20/16 16:03 :00 CDT Notes: (Same as: BD Posiflush) Start Date: 12/21/15 Stop Date: 12/22/15 Status: DiscontinuedSodium Chloride 0.9% (Bolus) IV 1,000 mL, 2,000 ml/hr, Infuse Over: 30 minutes, Route: IV, 1,000, Drug form: INJ , ONCE, Priority: STAT, Dosing Weight 88.636 kg, Start date: 12/21/15 16:04:00 CDT, Duration: 1 doses or times, Stop date: 12/21/15 16:04:00 CDT Start Date: 12/21/15 Stop Date: 12/21/15 Status: Completedsodium chloride 0.9% 1000 ml INJ 1,000 mL 1,000 mL, Rate: 125 ml/hr, Infuse over: 8 hr, Route: IV, Dosing Weight 88.636 kg , Total Volume: 1,000, Start date: 12/21/15 20:22:00 CDT, Duration: 30 day, Stop date: 01/20/16 20:21:00 CDT Start Date: 12/21/15 Stop Date: 12/24/15 Status: Discontinuedsodium chloride 0.9% 1000 ml INJ 1,000 mL 1,000 mL, Rate: 20 ml/hr, Infuse over: 50 hr, Route: IV, Dosing Weight 86.364 kg , Total Volume: 1,000, Start date: 12/23/15 12:54:00 CDT, Duration: 2 hr, Stop date: 12/23/15 14:53:00 CDT Start Date: 12/23/15 Stop Date: 12/23/15 Status: CompletedSodium Chloride 0.9% IV 20 mL + pantoprazole 80 mg 20 mL, Rate: 240 ml/hr, Infuse over: 5 minutes, Route: IVP, Dosing Weight 86.364 kg, Total Volume: 20, Start date: 12/22/15 20:36:00 CDT, Duration: 1 doses or times, Stop date: 12/22/15 20:40:00 CDT Start Date: 12/22/15 Stop Date: 12/22/15 Status: DeletedTylenol 650 mg, 2 tab, Route: PO, Drug form: TAB, Q6H, Dosing Weight 86.364, kg, PRN Pain 1-3/Temp > 100.4 F, Start date: 12/23/15 22:53:00 CDT, Duration: 30 day, Stop date: 01/22/16 22:52:00 CDT Notes: Do not exceed 4 gm/day. (Same as: Tylenol) Start Date: 12/23/15 Stop Date: 12/24/15 Status: Discontinued Results ELECTROLYTES Most recent to oldest 1 2 3 [Reference Range]: Sodium Lvl [135-145 mEq/L] 140 mEq/L 140 mEq/L 136 mEq/L (12/24/15 6:08 AM) (12/22/15 2:33 AM) (12/21/15 4:21 PM) Potassium Lvl [3.5-5.1 3.3 mEq/L 3.9 mEq/L 3.9 mEq/L mEq/L] *LOW* (12/22/15 2:33 AM) (12/21/15 4:21 PM) (12/24/15 6:08 AM) Chloride Lvl [95-109 mEq/L] 106 mEq/L 107 mEq/L 104 mEq/L (12/24/15 6:08 AM) (12/22/15 2:33 AM) (12/21/15 4:21 PM) CO2 [24-32 mEq/L] 23 mEq/L 23 mEq/L 20 mEq/L *LOW* *LOW* *LOW* (12/24/15 6:08 AM) (12/22/15 2:33 AM) (12/21/15 4:21 PM) AGAP [10.0-20.0 mEq/L] 14.3 mEq/L 13.9 mEq/L 15.9 mEq/L (12/24/15 6:08 AM) (12/22/15 2:33 AM) (12/21/15 4:21 PM) CHEM PANEL Most recent to oldest 1 2 3 [Reference Range]: Creatinine Lvl [0.50-1.40 0.64 mg/dL 0.61 mg/dL 0.74 mg/dL mg/dL] (12/24/15 6:08 AM) (12/22/15 2:33 AM) (12/21/15 4:21 PM) eGFR 123 mL/min/1.73m2 1 125 mL/min/1.73m2 2 111 mL/min/1.73m2 3 *NA* *NA* *NA* (12/24/15 6:08 AM) (12/22/15 2:33 AM) (12/21/15 4:21 PM) BUN [7-22 mg/dL] 5 mg/dL 10 mg/dL 9 mg/dL *LOW* (12/22/15 2:33 AM) (12/21/15 4:21 PM) (12/24/15 6:08 AM) B/C Ratio [6-25] 12 (12/21/15 4:21 PM) Glucose Lvl [70-99 mg/dL] 108 mg/dL 88 mg/dL 103 mg/dL *HI* (12/22/15 2:33 AM) *HI* (12/24/15 6:08 AM) (12/21/15 4:21 PM) Total Protein [6.4-8.4 8.4 g/dL g/dL] (12/21/15 4:21 PM) Albumin Lvl [3.5-5.0 g/dL] 4.4 g/dL (12/21/15 4:21 PM) Globulin [2.0-4.0 g/dL] 4.0 g/dL (12/21/15 4:21 PM) A/G Ratio [0.7-1.6] 1.1 (12/21/15 4:21 PM) Calcium Lvl [8.5-10.5 7.6 mg/dL 8.1 mg/dL 8.8 mg/dL mg/dL] *LOW* *LOW* (12/21/15 4:21 PM) (12/24/15 6:08 AM) (12/22/15 2:33 AM) ALT [0-65 unit/L] 26 unit/L (12/21/15 4:21 PM) AST [0-37 unit/L] 23 unit/L (12/21/15 4:21 PM) Alk Phos [39-136 unit/L] 91 unit/L (12/21/15 4:21 PM) Bili Total [0.2-1.3 mg/dL] 0.6 mg/dL (12/21/15 4:21 PM) Lipase Lvl [73-393 unit/L] 139 unit/L (12/21/15 4:21 PM) 1Result Comment: The eGFR is calculated [...] eGFR should be multiplied by the estimated BMI.2Result Comment: The eGFR is calculated using the CKD-EPI formula. In most young, healthy individualsthe eGFR will be >90 mL/ min/1.73m2. The eGFR declines with age. An eGFR [...] eGFR should be multiplied by the estimated BMI.3Result Comment: The eGFR is calculated using the CKD-EPI formula. In most young, healthy individualsthe eGFR will be >90 mL/ min/1.73m2. The eGFR declines with age. An eGFR [...] recent to oldest [Reference Range]: 1 2 3 U Preg [Negative] Negative (12/21/15 5:21 PM) URINE AND STOOL Most recent to oldest [Reference Range]: 1 2 3 UA Turbidity [Clear] Clear (12/21/15 5:21 PM) UA Color [Yellow] Yellow *NA* (12/21/15 5:21 PM) UA pH [5.0-8.0] 8.0 (12/21/15 5:21 PM) UA Spec Grav [<=1.030] 1.015 (12/21/15 5:21 PM) UA Glucose [Negative] Negative (12/21/15 5:21 PM) UA Blood [Negative] Negative (12/21/15 5:21 PM) UA Ketones [Negative mg/dL] >=80 mg/dL *ABN* (12/21/15 5:21 PM) UA Protein [Negative] Negative (12/21/15 5:21 PM) UA Urobilinogen [0.1-1.0 EU/dL] 0.2 EU/dL (12/21/15 5:21 PM) UA Bili [Negative] Negative *NA* (12/21/15 5:21 PM) UA Leuk Est [Negative] Negative (12/21/15 5:21 PM) UA Nitrite [Negative] Negative (12/21/15 5:21 PM) UA WBC [None Seen /HPF] 0-2 /HPF (12/21/15 5:21 PM) UA RBC [0-2 /HPF] 0-2 /HPF (12/21/15 5:21 PM) UA Bacteria [None Seen /HPF] Occasional /HPF (12/21/15 5:21 PM) UA Sq Epi [Few /LPF] Few /LPF (12/21/15 5:21 PM) UA Mucus [None Seen] See Note (12/21/15 5:21 PM) HEMATOLOGY Most recent to oldest 1 2 3 [Reference Range]: WBC [3.7-10.4 K/CMM] 9.5 K/CMM 14.8 K/CMM 16.6 K/CMM (12/24/15 6:08 AM) *HI* *HI* (12/22/15 2:33 AM) (12/21/15 4:21 PM) RBC [4.20-5.40 M/CMM] 3.93 M/CMM 4.21 M/CMM 4.76 M/CMM *LOW* (12/22/15 2:33 AM) (12/21/15 4:21 PM) (12/24/15 6:08 AM) Hgb [12.0-16.0 g/dL] 10.5 g/dL 11.1 g/dL 12.5 g/dL *LOW* *LOW* (12/21/15 4:21 PM) (12/24/15 6:08 AM) (12/22/15 2:33 AM) Hct [36.0-48.0 %] 32.3 % 34.7 % 38.3 % *LOW* *LOW* (12/21/15 4:21 PM) (12/24/15 6:08 AM) (12/22/15 2:33 AM) MCV [80.0-98.0 fL] 82.2 fL 82.4 fL 80.5 fL (12/24/15 6:08 AM) (12/22/15 2:33 AM) (12/21/15 4:21 PM) MCH [27.0-31.0 pg] 26.7 pg 26.4 pg 26.3 pg *LOW* *LOW* *LOW* (12/24/15 6:08 AM) (12/22/15 2:33 AM) (12/21/15 4:21 PM) MCHC [32.0-36.0 g/dL] 32.4 g/dL 32.1 g/dL 32.6 g/dL (12/24/15 6:08 AM) (12/22/15 2:33 AM) (12/21/15 4:21 PM) RDW [11.5-14.5 %] 17.7 % 18.3 % 18.0 % *HI* *HI* *HI* (12/24/15 6:08 AM) (12/22/15 2:33 AM) (12/21/15 4:21 PM) Platelet [133-450 K/CMM] 371 K/CMM 419 K/CMM 497 K/CMM (12/24/15 6:08 AM) (12/22/15 2:33 AM) *HI* (12/21/15 4:21 PM) MPV [7.4-10.4 fL] 8.1 fL 8.3 fL 7.8 fL (12/24/15 6:08 AM) (12/22/15 2:33 AM) (12/21/15 4:21 PM) Segs [45.0-75.0 %] 79.0 % 78.9 % *HI* *HI* (12/22/15 2:33 AM) (12/21/15 4:21 PM) Lymphocytes [20.0-40.0 %] 14.1 % 15.3 % *LOW* *LOW* (12/22/15 2:33 AM) (12/21/15 4:21 PM) Monocytes [2.0-12.0 %] 6.3 % 5.1 % (12/22/15 2:33 AM) (12/21/15 4:21 PM) Eosinophils [0.0-4.0 %] 0.3 % 0.1 % (12/22/15 2:33 AM) (12/21/15 4:21 PM) Basophils [0.0-1.0 %] 0.3 % 0.6 % (12/22/15 2:33 AM) (12/21/15 4:21 PM) Segs-Bands # [1.5-8.1 K/CMM] 11.7 K/CMM 13.1 K/CMM *HI* *HI* (12/22/15 2:33 AM) (12/21/15 4:21 PM) Lymphocytes # [1.0-5.5 2.1 K/CMM 2.5 K/CMM K/CMM] (12/22/15 2:33 AM) (12/21/15 4:21 PM) Monocytes # [0.0-0.8 K/CMM] 0.9 K/CMM 0.8 K/CMM *HI* (12/21/15 4:21 PM) (12/22/15 2:33 AM) Basophils # [0.0-0.2 K/CMM] 0.1 K/CMM (12/21/15 4:21 PM) Immunizations No data available for this section Procedures Procedure Date Related Diagnosis Body Site Tonsillectomy Social History Social History Type Response Smoking Status Current some day smoker; Ready to change: No; Concerns about tobacco use in household: No; Exposure to Tobacco Smoke None; Cigarette Smoking Last 365 Days No; Reg Smoking Cessation Counseling No Assessment and Plan Extracted from: Title: Clinical Document Author: Ethan Plunkett MD Date: 12/21/15 History and Physical Attending: Payton Lynne MD Service: Emergency Medicine Service Code status: None Specified=FULL CODE Reason for Admission: INTRATABLE ABD PAIN,VOMITING,DEHYDRATION Working DRG: None Documented Isolation: None Documented Consulting Physicians: Cas Malcolm MD Office: MSO: [id number] Service: General Surgery CC: throwing up all the time HPI: This is a 25 yo w/ below PMHx who p/w 2 day h/o N/V and abdominal pain. Located along R side of abdomen (RUQ>RLQ), w/ radiation to R flank and back. Described as sharp and constant. Nothing aggravates or allevi ates the pain. No unusual foods eaten, nobody around her has these symptoms. Has h/o PUD (seen by EGD) but these symptoms are different. Pt was seen in the ER the day before w/ the same symptoms, was gi porsha Tylenol 3 and zofran which did not help the symptoms (vomited back up). Last BM was the day before admission. Denies CP, SOB, urinary symptoms, fevers/ chills, cough, or any other additional complaints. PMHx: Gastric ulcer PSHx: tonsillectomy FHx: reviewed and noncontributory SHx: Current everyday smoker Denies EtOH, illicit drugs Meds: See medicine reconciliation Medication List Active Medications Ordered sodium chloride: 10 mL, IVP, PRN, PRN: Line Flush. Prescribed acetaminophen-codeine: 1 - 2 tab, PO, Q4H, for 2 day, PRN: Pain, 20 tab, 0 Refill(s). ondansetron: 4 mg, 1 tab, PO, BID, for 5 day, 10 tab, 0 Refill(s). Medications Inactivated in the Last 72 Hours dicyclomine: 20 mg, 2 mL, IM, ONCE. GI cocktail: 30 mL, PO, ONCE. GI cocktail: 30 mL, PYXIS, ONCE. GI cocktail: 30 mL, PYXIS, ONCE. iohexol: 100 mL, PYXIS, ONCE. metoclopramide: 10 mg, 2 mL, IVP, ONCE. metoclopramide: 10 mg, 2 mL, PYXIS, ONCE. morphine Sulfate: 4 mg, IVP, ONCE. morphine Sulfate: 4 mg, 1 mL, PYXIS, ONCE. morphine Sulfate: 4 mg, 1 mL, IVP, ONCE. morphine Sulfate: 4 mg, 1 mL, PYXIS, ONCE. morphine Sulfate: 4 mg, 1 mL, IVP, ONCE. morphine Sulfate: 4 mg, 1 mL, PYXIS, ONCE. ondansetron: 4 mg, 2 mL, IVP, ONCE. ondansetron: 4 mg, 2 mL, PYXIS, ONCE. promethazine: 25 mg, 1 mL, PYXIS, ONCE. promethazine + sodium chloride 0.9% INJ 50 mL: 25 mg, 1 mL, 153 ml/hr, IVPB, ONCE. sodium chloride: 10 mL, IVP, PRN, PRN: Line Flush. Sodium Chloride 0.9% IV: 1,000 mL, 2,000 ml/hr, IV, ONCE. Sodium Chloride 0.9% IV: 1,000 mL, PYXIS, ONCE. Sodium Chloride 0.9% IV: 1,000 mL, 2,000 ml/hr, IV, ONCE. Sodium Chloride 0.9% IV: 1,000 mL, PYXIS, ONCE. Allergies: NKDA ROS: See HPI. All other systems reviewed by myself are negative unless noted above. Physical Exam: Vitals Tmp(F) Pulse BP RR SpO2 FIO2 12/20 18:35 ---- 76 124/72 16 100 --- 12/20 15:41 98.0 82 130/76 16 100 --- 24 Hr Tmax: 98.0F (36.67c) at 12/20 15:41 Vital Signs are the last 5 in the past 48 hours. General: NAD, nontoxic appearing HEENT: NCAT, PERRL, dry MM, no JVD Cardiovascular: RRR, S1S2 Respiratory: CTAB Abdomen: soft, +BS, ND, TTP over R side of abdomen and flank Extremities: no b/l LE edema Skin: no rashes Neurologic: comprehension and speech intact, CN III-XII grossly intact Musculoskeletal: symmetric strength in all extremities Rectal/: no b/l CVA tenderness Labs: 24hr Labs 12/20 1721 U Preg Negative UA Color Yellow UA Turbidity Clear UA Spec Grav 1.015 UA pH 8.0 UA Protein Negative UA Glucose Negative UA Ketones >=80 UA Bili Negative UA Blood Negative UA Urobilinogen 0.2 UA Nitrite Negative UA Leuk Est Negative UA RBC 0-2 UA WBC 0-2 UA Bacteria Occasional UA Mucus See Note UA Sq Epi Few 12/20 1621 Sodium Lvl 136 Potassium Lvl 3.9 Chloride Lvl 104 CO2 20 L AGAP 15.9 Glucose Lvl 103 H Creatinine Lvl 0.74 BUN 9 B/C Ratio 12 Total Protein 8.4 Albumin Lvl 4.4 Globulin 4.0 A/G Ratio 1.1 Calcium Lvl 8.8 ALT 26 AST 23 Alk Phos 91 Bili Total 0.6 eGFR 111 Lipase Lvl 139 WBC 16.6 H RBC 4.76 Hgb 12.5 Hct 38.3 MCV 80.5 MCH 26.3 L MCHC 32.6 RDW 18.0 H Platelet 497 H MPV 7.8 Segs 78.9 H Monocytes 5.1 Lymphocytes 15.3 L Eosinophils 0.1 Basophils 0.6 Segs-Bands # 13.1 H Lymphocytes # 2.5 Monocytes # 0.8 Basophils # 0.1 Micro: none Imaging: CT abd/pelvis: 1. Nonspecific nonobstructed bowel gas pattern as above discussed. No evidence of acute appendicitis. Multiple scattered subcentimeter retroperitoneal mesenteric lymph nodes are seen grea test in the right lower abdominal quadrant. Additionally, mild hazy diffusely increased attenuation is seen in the central mesentery without focal localization. Findings are suspicious for a nonspecific enteritis or mesenteric adenitis. 2. Suspect small mildly complex left ovarian cyst. RUQ u/s: Unremarkable right upper quadrant abdominal ultrasound. Assessment and Plan: This is a 25 yo who p/w N/V and R sided abdominal pain. Found to have enteritis and leukocytosis. Appendix and gallbladder are unremarkable. Pt has h/o gastric ulcers but location and symptoms are not entirely consistent w/ this. # enteritis w/ significant leukocytosis: cipro/flagyl, NPO, iv fluids, general surgery was consulted in the ER, pain and nausea control Prophylaxis: ambulation Diet: NPO Ethan Knutson
--- OUTSIDE RECORDS SUMMARY | 2017-12-23 07:57 | XMS REPORT | Continuity of Care Document ---
:1990 Author Organization Interface Problems Problem Status Onset Classification Date Comments Source Date Reported Discharge 04/14/2016 [facility] Diagnosis: 6 Abdominal pain, acute, epigastric INTRACTABLE Active [facility] VOMITING 6 [place] ABDOMINAL PAIN Active [facility] 6 Eb INTRATABLE ABD Active [facility] PAIN,VOMITING,DE 6 [place] HYDRATION VOMITING Active [facility] 6 Eb Discharge 12/24/2015 [facility] Diagnosis: 6 Leukocytosis Discharge 12/24/2015 [facility] Diagnosis: 6 Abdominal pain VOMITING/STOMACH Active [facility] PAIN 6 [place] Gastric ulcer Active Problem 04/14/2016 [facility] CYCLICAL Active [facility] VOMITING, Eb INTRACTABLE Medications Medication Details Route Status Patient Ordering Order Source Instructions Provider Date Sucralfate 100 1 gm=10 mL, Active 04/11/ [facility] MG/ML Oral PO, QID, # 2016 [place] Suspension 1200 mL, 0 [Carafate] Refill(s), Pharmacy: [facility] dicyclomine 20 20 mg=1 tab, Active 30/ MH mg oral tablet PO, QID, # 56 2016 [place] tab, 1 Refill(s), Pharmacy: [facility] gabapentin 300 300 mg=1 cap, Active 10/30/ MH MG Oral Capsule PO, TID, # 30 2015 [place] [Neurontin] cap, 1 Refill(s), Pharmacy: [facility] Protonix 40 mg, Route: No Longer IVP, Drug Active 2015 [place] form: INJ, BID-Meals, Dosing Weight 88.636, kg, Start date: 04/10/16 8:00:00 CDT, Duration: 30 day, Stop date: 05/09/16 17:00:00 CSTNotes: For IV push reconstitute with 10 ml 0.9% sodium chloride and push over 2 minutes. (Same as: Protonix) Bentyl 20 mg, 1 tab, No Longer Route: PO, Active 2015 [place] Drug form: TAB, QID, Dosing Weight 88.636, kg, Start date: 04/09/16 21:00:00 CDT, Duration: 30 day, Stop date: 05/09/16 17:00:00 CSTNotes: (Same as: Bentyl) Sucralfate 100 1 gm, 10 mL, No Longer MG/ML Oral Route: PO, Active 2015 [place] Suspension Drug form: [Carafate] SUSP, QID-Before Meals, Dosing Weight 88.636, kg, Start date: 04/09/16 21:00:00 CDT, Duration: 30 day, Stop date: 05/09/16 16:30:00 CSTNotes: Enteral feeds may interfere with the absorption of this medication. Shake well. Take 1 hr before or 2 hrs after antacids, dairy pdt, minerals & meals. (Same As: Carafate) Reglan 10 mg, 2 mL, No Longer Route: IVP, Active 2015 [place] Drug form: INJ, Q6H, Dosing Weight 88.636, kg, Start date: 04/09/16 18:00:00 CDT, Duration: 30 day, Stop date: 05/09/16 12:00:00 CSTNotes: (Same as: Reglan) Acetaminophen 650 mg, 2 tab, No Longer Route: PO, Active 2015 [place] Drug form: TAB, Q4H, Dosing Weight 88.636, kg, PRN Pain 1-3/Temp > 100.4 F, Start date: 04/09/16 17:41:00 CDT, Duration: 30 day, Stop date: 05/09/16 17:40:00 CSTNotes: Do not exceed 4 gm/day. (Same as: Tylenol) pantoprazole 40 mg, 1 tab, Inactive Route: PO, 2015 [place] Drug form: ECTAB, BID-Before Meals, Dosing Weight 88.636, kg, Start date: 04/09/16 16:30:00 CDT, Duration: 30 day, Stop date: 05/09/16 7:30:00 CSTNotes: Tablet should not be chewed or crushed. (Same as: Protonix) Sucralfate 100 1 gm, 10 mL, Inactive MG/ML Oral Route: PO, 2015 [place] Suspension Drug form: [Carafate] SUSP, QID, Dosing Weight 88.636, kg, Start date: 04/09/16 13:00:00 CDT, Duration: 30 day, Stop date: 05/09/16 9:00:00 CSTNotes: Enteral feeds may interfere with the absorption of this medication. Shake well. Take 1 hr before or 2 hrs after antacids, dairy pdt, minerals & meals. (Same As: Carafate) gabapentin 300 300 mg, 1 cap, No Longer MG Oral Capsule Route: PO, Active 2015 [place] [Neurontin] Drug form: CAP, TID, Dosing Weight 88.636, kg, Start date: 04/09/16 13:00:00 CDT, Duration: 30 day, Stop date: 05/09/16 9:00:00 CSTNotes: (Same as: Neurontin) Zofran ODT 4 mg, 1 tab, No Longer Route: PO, Active 2015 [place] Drug form: TABDIS, BID, Dosing Weight 88.636, kg, PRN Nausea & Vomiting, Start date: 04/09/16 10:58:00 CDT, Duration: 30 day, Stop date: 05/09/16 10:57:00 CSTNotes: (Same as: Zofran ODT) influenza virus 0.5 mL, Route: Inactive vaccine, IM, Drug Form: 2015 [place] inactivated SUSP, Daily, Start date: 04/09/16 9:00:00 CDT, Duration: 1 doses or times, Stop date: 04/09/16 9:00:00 CDTNotes: (Same as: Fluzone Quadrivalent, Fluarix Quadrivalent) For 3 years of age and older (0.5 mL IM) Shake well before use Metoclopramide 5 5 mg, 1 tab, Inactive MG Oral Tablet Route: PO, 2015 [place] [Reglan] Drug form: TAB, TID-Before Meals, Dosing Weight 88.636, kg, Start date: 04/09/16 7:30:00 CDT, Duration: 30 day, Stop date: 05/08/16 16:30:00 CSTNotes: (Same as: Reglan) Take 30 min before meals Protonix 40 mg, 1 tab, No Longer Route: PO, Active 2015 [place] Drug form: ECTAB, Before Breakfast, Dosing Weight 88.636, kg, Start date: 04/09/16 7:30:00 CDT, Duration: 30 day, Stop date: 05/08/16 7:30:00 CSTNotes: Tablet should not be chewed or crushed. (Same as: Protonix) pantoprazole 40 mg, Route: Inactive IVP, Drug 2015 [place] form: INJ, Before Breakfast, Dosing Weight 88.636, kg, Start date: 04/09/16 7:30:00 CDT, Duration: 30 day, Stop date: 05/08/16 7:30:00 CSTNotes: For IV push reconstitute with 10 ml 0.9% sodium chloride and push over 2 minutes. (Same as: Protonix) Protonix 40 mg, Route: Inactive IV, Drug form: 2015 [place] INJ, ONCE, Dosing Weight 88.636, kg, Start date: 04/09/16 4:43:00 CDT, Stop date: 04/09/16 4:43:00 CDTNotes: For IV push reconstitute with 10 ml 0.9% sodium chloride and push over 2 minutes. (Same as: Protonix) Phenergan 25 mg, 2 tab, No Longer Route: PO, Active 2015 [place] Drug form: TAB, Q6H, Dosing Weight 88.636, kg, PRN Nausea & Vomiting, Start date: 04/08/16 19:28:00 CDT, Stop date: 05/08/16 19:27:00 CSTNotes: (Same as: Phenergan) Zofran 4 mg, 2 mL, No Longer Route: IVP, Active 2015 [place] Drug form: INJ, Q8H, Dosing Weight 88.636, kg, PRN Nausea, Start date: 04/08/16 19:28:00 CDT, Duration: 30 day, Stop date: 05/08/16 19:27:00 CSTNotes: (Same as: Zofran) MEDICATION WASTE Product Size: 4 mg Product Wasted: ___ mg Morphine 2 mg, 1 mL, No Longer Route: IVP, Active 2015 [place] Drug form: INJ, Q2H, Dosing Weight 88.636, kg, PRN Pain Score 7-10, Start date: 04/08/16 19:27:00 CDT, Duration: 30 day, Stop date: 05/08/16 19:26:00 CSTNotes: (Same as:MORPhine Sulfate) Ibuprofen 600 mg, 1 tab, Inactive Route: PO, 2015 [place] Drug form: TAB, TID, Dosing Weight 88.636, kg, Start date: 04/08/16 18:20:00 CDT, Duration: 30 day, Stop date: 05/08/16 17:00:00 CSTNotes: (Same as: Motrin) "Do Not Crush" Take with food. Saline Flush 10 ml, Route: No Longer 0.9% IVP, Drug Active 2015 [place] Form: INJ, Dosing Weight 88.636, kg, PRN, PRN Line Flush, Start date: 04/08/16 16:35:00 CDT, Duration: 30 day, Stop date: 05/08/16 15:34:00 CSTNotes: (Same as: BD Posiflush) Sodium Chloride 1,000 mL, No Longer 0.154 MEQ/ML Rate: 125 Active 2015 [place] Injectable ml/hr, Infuse Solution over: 8 hr, Route: IV, Dosing Weight 88.636 kg, Total Volume: 1,000, Start date: 04/08/16 16:35:00 CDT, Duration: 30 day, Stop date: 05/08/16 16:34:00 [employer] Ondansetron 4 mg, 2 mL, No Longer Route: IVP, Active 2015 [place] Drug form: INJ, Q6H, Dosing Weight 88.636, kg, PRN Nausea & Vomiting, Start date: 04/08/16 16:35:00 CDT, Duration: 30 day, Stop date: 05/08/16 16:34:00 CSTNotes: (Same as: Zofran) MEDICATION WASTE Product Size: 4 mg Product Wasted: ___ mg Zofran 4 mg, Route: Inactive IVP, Drug 2015 [place] form: INJ, ONCE, Dosing Weight 88.636, kg, Priority: STAT, Start date: 04/08/16 15:22:00 CDT, Stop date: 04/08/16 15:22:00 CDT gabapentin 300 300 mg=1 cap, No Longer MG Oral Capsule PO, TID, # 30 Active 2015 [place] [Neurontin] cap, 1 Refill(s) Promethazine 25 mg=1 supp, No Longer Hydrochloride 25 NM, Q6H, PRN Active 2015 [place] MG Rectal Nausea & Suppository Vomiting, X 3 [Phenergan] day, # 12 supp, 0 Refill(s) Ondansetron 4 MG 4 mg=1 tab, No Longer Disintegrating PO, BID, PRN Active 2015 [place] Tablet [Zofran] Nausea and Vomiting, Dissolve tab under tongue, X 5 day, # 10 tab, 0 Refill(s) pantoprazole 40 mg, Route: Inactive IVP, Drug 2015 [place] form: INJ, ONCE, Dosing Weight 88.636, kg, For IV push reconstitute with 10 ml 0.9% sodium chloride and push over at least 3 minutes, Priority: STAT, Start date: 04/08/16 11:05:00 CDT, Stop date: 04/08/16 11:05:00 CDTNotes: (Same as: Protonix) Metoclopramide 10 mg, 2 mL, Inactive Route: IVP, 2015 [place] Drug form: INJ, ONCE, Dosing Weight 88.636, kg, Priority: STAT, Start date: 04/08/16 11:05:00 CDT, Stop date: 04/08/16 11:05:00 CDTNotes: (Same as: Reglan) Saline Flush 10 mL, Route: Inactive 0.9% IVP, Drug 2015 [place] Form: INJ, Dosing Weight 88.636, kg, PRN, PRN Line Flush, Start date: 04/08/16 11:05:00 CDT, Duration: 30 day, Stop date: 05/08/16 10:04:00 CSTNotes: (Same as: BD Posiflush) Sodium Chloride 1,000 mL, Inactive 0.154 MEQ/ML 2,000 ml/hr, 2015 [place] Injectable Infuse Over: Solution 30 minutes, Route: IV, 1,000, Drug form: INJ, ONCE, Priority: STAT, Dosing Weight 88.636 kg, Start date: 04/08/16 11:05:00 CDT, Duration: 1 doses or times, Stop date: 04/08/16 11:05:00 CDT Hydromorphone 1 mg, 1 mL, Inactive Route: IVP, 2015 [place] Drug form: INJ, ONCE, Dosing Weight 88.636, kg, Priority: STAT, Start date: 04/08/16 11:05:00 CDT, Stop date: 04/08/16 11:05:00 CDTNotes: Same as: Dilaudid Remove old Remove old Inactive Nicotine patch Nicotine patch 2015 [place] before applying before Q24H applying Q24H, ONCE, Drug form: MISC, Route: N/A, Daily, 12/24/15 21:00:00 CDT, Duration: 30 day, Stop date: 01/23/16 9:00:00 CDT Sucralfate 100 1 gm=10 mL, Active MG/ML Oral PO, QID, # 2016 [place] Suspension 1200 mL, 0 [Carafate] Refill(s), Pharmacy: [facility] [id number] pantoprazole 40 40 mg=1 tab, Active mg oral enteric PO, BID-Before 2015 [place] coated tablet Meals, # 60 tab, 0 Refill(s), Pharmacy: [facility] [id number] [facility] Protonix 40 mg, 1 tab, Inactive Route: PO, 2015 [place] Drug form: ECTAB, BID-Before Meals, Dosing Weight 86.364, kg, Start date: 12/24/15 16:30:00 CDT, Duration: 30 day, Stop date: 01/23/16 7:30:00 CDTNotes: Tablet should not be chewed or crushed. (Same as: Protonix) potassium 20 mEq, 1 tab, Inactive chloride Route: PO, 2015 [place] Drug form: ERTAB, ONCE, Dosing Weight 86.364, kg, Start date: 12/24/15 9:52:00 CDT, Stop date: 12/24/15 9:52:00 CDTNotes: (Same as: K-Dur 20) "Do Not Crush" With food and full glass of water Tylenol 650 mg, 2 tab, No Longer Route: PO, Active 2015 [place] Drug form: TAB, Q6H, Dosing Weight 86.364, kg, PRN Pain 1-3/Temp > 100.4 F, Start date: 12/23/15 22:53:00 CDT, Duration: 30 day, Stop date: 01/22/16 22:52:00 CDTNotes: Do not exceed 4 gm/day. (Same as: Tylenol) Nicotine 21 mg, 1 No Longer patch, Route: Active 2015 [place] TOP, Drug form: ERFILM, Daily, Dosing Weight 86.364, kg, Start date: 12/23/15 19:42:00 CDT, Duration: 30 day, Stop date: 01/22/16 9:00:00 CDTNotes: (Same as: Habitrol) "Remove old patch before application of new patch" WASTE: F/P - P Waste Black; E - P Waste Black Sucralfate 100 1 gm, 10 mL, No Longer MG/ML Oral Route: PO, Active 2015 [place] Suspension Drug form: [Carafate] SUSP, QID, Dosing Weight 86.364, kg, Start date: 12/23/15 13:00:00 CDT, Duration: 30 day, Stop date: 01/22/16 9:00:00 CDTNotes: Enteral feeds may interfere with the absorption of this medication. Shake well. Take 1 hr before or 2 hrs after antacids, dairy pdt, minerals & meals. (Same As: Carafate) Sodium Chloride 1,000 mL, Inactive 0.154 MEQ/ML Rate: 2015 [place] Injectable ml/hr, Infuse Solution over: 50 hr, Route: IV, Dosing Weight 86.364 kg, Total Volume: 1,000, Start date: 12/23/15 12:54:00 CDT, Duration: 2 hr, Stop date: 12/23/15 14:53:00 CDT Protonix + 80 mg, Route: No Longer sodium chloride IVP, ONCE, Active 2015 [place] 0.9% 10 ml INJ Start date: (PF) 20 mL 12/22/15 21:16:00 CDT, Stop date: 12/22/15 21:16:00 CDTNotes: For IV push reconstitute with 10 ml 0.9% sodium chloride and push over 2 minutes. (Same as: Protonix) Sodium Chloride 100 mL, Rate: No Longer 0.154 MEQ/ML 10 ml/hr, Active 2015 [place] Injectable Infuse over: Solution 10 hr, Route: IVPB, Dosing Weight 86.364 kg, Total Volume: 100, Infuse at 8 mg / hr for 72 hours for GI bleeding, Start date: 12/22/15 20:36:00 CDT, Duration: 72 hr, Stop date: 12/25/15 20:35:00 CDT Sodium Chloride 20 mL, Rate: Inactive 0.9% IV 20 mL + 240 ml/hr, 2015 [place] pantoprazole 80 Infuse over: 5 mg minutes, Route: IVP, Dosing Weight 86.364 kg, Total Volume: 20, Start date: 12/22/15 20:36:00 CDT, Duration: 1 doses or times, Stop date: 12/22/15 20:40:00 CDT pantoprazole 40 mg, Route: Inactive IVP, Drug 2015 [place] form: INJ, Daily, Dosing Weight 88.636, kg, Patient is NPO, Start date: 12/22/15 9:00:00 CDT, Duration: 30 day, Stop date: 01/20/16 9:00:00 CDTNotes: Same as: Protonix) Flagyl 500 mg, 100 No Longer mL, Route: Active 2015 [place] IVPB, Drug form: INJ, [id number], Dosing Weight 88.636, kg, Start date: 12/21/15 21:00:00 CDT, Duration: 30 day, Stop date: 01/20/16 13:00:00 CDTNotes: (Same as: Flagyl) Avoid alcohol. Ciprofloxacin 400 mg, 200 No Longer mL, Route: Active 2015 [place] IVPB, Drug form: INJ, [id number], Dosing Weight 88.636, kg, Start date: 12/21/15 21:00:00 CDT, Duration: 30 day, Stop date: 01/20/16 9:00:00 CDTNotes: Do not refrigerate Phenergan 12.5 mg, 0.5 No Longer mL, Route: Active 2015 [place] IVPB, Q4H, Dosing Weight 88.636, kg, PRN Nausea & Vomiting, Start date: 12/21/15 20:22:00 CDT, Duration: 30 day, Stop date: 01/20/16 20:21:00 CDTNotes: (Same as: Phenergan) Sodium Chloride 1,000 mL, No Longer 0.154 MEQ/ML Rate: 125 Active 2015 [place] Injectable ml/hr, Infuse Solution over: 8 hr, Route: IV, Dosing Weight 88.636 kg, Total Volume: 1,000, Start date: 12/21/15 20:22:00 CDT, Duration: 30 day, Stop date: 01/20/16 20:21:00 CDT Saline Flush 10 ml, Route: No Longer 0.9% IVP, Drug Active 2015 [place] Form: INJ, Dosing Weight 88.636, kg, PRN, PRN Line Flush, Start date: 12/21/15 20:22:00 CDT, Duration: 30 day, Stop date: 01/20/16 20:21:00 CDTNotes: (Same as: BD Posiflush) Ondansetron 4 mg, 2 mL, No Longer Route: IVP, Active 2015 [place] Drug form: INJ, Q6H, Dosing Weight 88.636, kg, PRN Nausea & Vomiting, Start date: 12/21/15 20:22:00 CDT, Duration: 30 day, Stop date: 01/20/16 20:21:00 CDTNotes: (Same as: Zofran) MEDICATION WASTE Product Size: 4 mg Product Wasted: ___ mg Morphine 4 mg, 1 mL, No Longer Route: IVP, Active 2015 [place] Drug form: INJ, Q4H, Dosing Weight 88.636, kg, PRN Pain Score 7-10, Start date: 12/21/15 20:22:00 CDT, Duration: 30 day, Stop date: 01/20/16 20:21:00 CDTNotes: (Same as:MORPhine Sulfate) Morphine 4 mg, 1 mL, Inactive Route: IVP, 2015 [place] Drug form: INJ, ONCE, Dosing Weight 88.636, kg, Priority: STAT, Start date: 12/21/15 17:05:00 CDT, Stop date: 12/21/15 17:05:00 CDTNotes: (Same as:MORPhine Sulfate) Morphine 4 mg, 1 mL, Inactive Route: IVP, 2015 [place] Drug form: INJ, ONCE, Dosing Weight 88.636, kg, Priority: STAT, Start date: 12/21/15 16:04:00 CDT, Stop date: 12/21/15 16:04:00 CDTNotes: (Same as:MORPhine Sulfate) Promethazine 25 mg, 1 mL, Inactive Route: IVPB, 2015 [place] ONCE, Dosing Weight 88.636, kg, Priority: STAT, Start date: 12/21/15 16:04:00 CDT, Stop date: 12/21/15 16:04:00 CDTNotes: (Same as: Phenergan) Saline Flush 10 mL, Route: No Longer 0.9% IVP, Drug Active 2015 [place] Form: INJ, Dosing Weight 88.636, kg, PRN, PRN Line Flush, Start date: 12/21/15 16:04:00 CDT, Duration: 30 day, Stop date: 01/20/16 16:03:00 CDTNotes: (Same as: BD Posiflush) Sodium Chloride 1,000 mL, Inactive 0.154 MEQ/ML 2,000 ml/hr, 2015 [place] Injectable Infuse Over: Solution 30 minutes, Route: IV, 1,000, Drug form: INJ, ONCE, Priority: STAT, Dosing Weight 88.636 kg, Start date: 12/21/15 16:04:00 CDT, Duration: 1 doses or times, Stop date: 12/21/15 16:04:00 CDT Ondansetron 4 MG 4 mg=1 tab, On Hold Oral Tablet PO, BID, X 5 2015 [place] [Zofran] day, # 10 tab, 0 Refill(s) Acetaminophen 1 - 2 tab, PO, No Longer 300 MG / Codeine Q4H, PRN Pain, Active 2015 [place] Phosphate 30 MG X 2 day, # 20 Oral Tablet tab, 0 [Tylenol with Refill(s) Codeine #3] Bentyl 20 mg, 2 mL, Inactive Route: IM, 2015 [place] Drug form: INJ, ONCE, Dosing Weight 87.727, kg, Start date: 12/20/15 22:35:00 CDT, Stop date: 12/20/15 22:35:00 CDTNotes: (Same as: Bentyl) Reglan 10 mg, 2 mL, Inactive Route: IVP, 2015 [place] Drug form: INJ, ONCE, Dosing Weight 87.727, kg, Priority: STAT, Start date: 12/20/15 22:35:00 CDT, Stop date: 12/20/15 22:35:00 CDTNotes: (Same as: Reglan) GI cocktail 30 mL, Route: Inactive PO, Drug Form: 2015 [place] SUSP, Dosing Weight 87.727, kg, ONCE, STAT, Start date: 12/20/15 21:27:00 CDT, Stop date: 12/20/15 21:27:00 CDTNotes: G.I. Cocktail=antac id with simethicone 22.5 mL - lidocaine viscous 7.5 mL Morphine 4 mg, Route: Inactive IVP, Drug 2015 [place] form: INJ, ONCE, Dosing Weight 87.727, kg, Priority: STAT, Start date: 12/20/15 19:36:00 CDT, Stop date: 12/20/15 19:36:00 CDT Ondansetron 4 mg, 2 mL, Inactive Route: IVP, 2016 [place] Drug form: INJ, ONCE, Dosing Weight 87.727, kg, Priority: STAT, Start date: 12/20/15 18:37:00 CDT, Stop date: 12/20/15 18:37:00 CDTNotes: (Same as: [place]) MEDICATION WASTE Product Size: 4 mg Product Wasted: ___ mg Sodium Chloride 1,000 mL, Inactive 0.154 MEQ/ML 2,000 ml/hr, 2015 [place] Injectable Infuse Over: Solution 30 minutes, Route: IV, 1,000, Drug form: INJ, ONCE, Priority: STAT, Dosing Weight 87.727 kg, Start date: 12/20/15 18:37:00 CDT, Duration: 1 doses or times, Stop date: 12/20/15 18:37:00 CDT Saline Flush 10 mL, Route: No Longer 0.9% IVP, Drug Active 2015 [place] Form: INJ, Dosing Weight 87.727, kg, PRN, PRN Line Flush, Start date: 12/20/15 18:37:00 CDT, Duration: 30 day, Stop date: 01/19/16 18:36:00 CDTNotes: (Same as: BD Posiflush) Allergies, Adverse Reactions, Alerts Substance Category Reaction Severity Reaction Status Date Comments Source type Reported NKDA Assertion Drug Active allergy [place] Immunizations Immunization Date Given Site Status Last Updated Comments Source influenza virus 04/11/2016 Not Given [facility] vaccine, inactivated Results Order Name Results Value Reference Date Interpretation Comments Source Range ELECTROLYTE AGAP 9.9 meq/L 10.0 - 10 S 20.0 [place] ELECTROLYTE Sodium Lvl 141 meq/L 135 - 145 04/11 [facility] S /2015 [place] ELECTROLYTE Potassium 3.9 meq/L 3.5 - 5.1 04/11 S Lvl /2015 [place] ELECTROLYTE eGFR 121 04/11 Result Comment: The eGFR is calculated using the CKD-EPI formula. In most young, healthy individuals the eGFR will be > 90 mL/min/1.73m2. The eGFR declines with age. An eGFR of 60-89 may be normal in S mL/min/1.7 /2016 some populations, particularly the elderly, for whom the CKD-EPI formula has not been extensively validated. Use of the eGFR is not recommended in the following populations: [address] Individuals with unstable creatinine concentrations, including patients and those with serious co-morbid conditions. Patients with extremes in muscle mass or diet. The data above are obtained from the National Kidney Disease Education Program (NKDEP) which additionally recommends that when the eGFR is used in patients with extremes of body mass index for purposes of drug dosing, the eGFR should be multiplied by the estimated BMI. ELECTROLYTE Chloride Lvl 105 meq/L 95 - 109 04/11 S [place] ELECTROLYTE Calcium Lvl 7.8 mg/dL 8.5 - 10.5 04/11 [place] ELECTROLYTE CO2 30 meq/L 24 - 32 04/11 [place] ELECTROLYTE Glucose Lvl 111 mg/dL 70 - 99 04/11 [place] ELECTROLYTE BUN 2 mg/dL 7 - 22 04/11 [place] ELECTROLYTE Creatinine 0.67 mg/dL 0.50 - 04/11 S Lvl 1. [place] HEMATOLOGY Hgb 10.1 g/dL 12.0 - 04/11 MH 16.0 [place] HEMATOLOGY RBC X 10x6 3.73 M/CMM 4.20 - 04/11 MH 5.40 [place] HEMATOLOGY MCV 81.8 fL 80.0 - 04/11 MH 98.0 [place] HEMATOLOGY WBC X 10x3 8.7 K/CMM 3.7 - 10.4 04/11 [place] HEMATOLOGY Hct 30.5 % 36.0 - 04/11 MH 48.0 [place] HEMATOLOGY MPV 9.0 fL 7.4 - 10.4 04/11 [place] HEMATOLOGY MCHC 33.2 g/dL 32.0 - 04/11 MH 36.0 [place] HEMATOLOGY MCH 27.1 pg 27.0 - 04/11 MH 31.0 [place] HEMATOLOGY RDW 17.4 % 11. - 04/11 MH 14. [place] HEMATOLOGY Platelet 360 K/CMM 133 - 450 04/11 [place] HEMATOLOGY Platelet 393 K/CMM 133 - 450 04/10 [place] HEMATOLOGY RDW 17.2 % 11. - 04/10 MH 14. [place] HEMATOLOGY MPV 8.6 fL 7.4 - 10.4 04/10 [place] HEMATOLOGY MCV 82.1 fL 80.0 - 04/10 MH 98.0 [place] HEMATOLOGY Hct 33.2 % 36.0 - 04/10 MH 48.0 [place] HEMATOLOGY MCH 26.8 pg 27.0 - 04/10 MH 31.0 [place] HEMATOLOGY MCHC 32.6 g/dL 32.0 - 04/10 MH 36.0 [place] HEMATOLOGY Hgb 10.8 g/dL 12.0 - 04/10 MH 16.0 [place] HEMATOLOGY WBC X 10x3 7.1 K/CMM 3.7 - 10.4 04/10 [place] HEMATOLOGY RBC X 10x6 4.04 M/CMM 4.20 - 04/10 MH 5. [place] CHEM PANEL eGFR 121 04/10 Result Comment: The eGFR is calculated using the CKD-EPI formula. In most young, healthy individuals the eGFR will be >90 mL/ min/1.73m2. The eGFR declines with age. An eGFR of 60-89 may be normal in mL/min/1. some populations, particularly the elderly, for whom the CKD-EPI formula has not been extensively validated. Use of the eGFR is not recommended in the following populations: [place] [address] Individuals with unstable creatinine concentrations, including patients and those with serious co-morbid conditions. Patients with extremes in muscle mass or diet. The data above are obtained from the National Kidney Disease Education Program (NKDEP) which additionally recommends that when the eGFR is used in patients with extremes of body mass index for purposes of drug dosing, the eGFR should be multiplied by the estimated BMI. CHEM PANEL Creatinine 0.67 mg/dL 0.50 - 04/10 [facility] Lvl 1. [place] CHEM PANEL BUN 4 mg/dL 7 - 22 04/10 [place] CHEM PANEL Chloride Lvl 108 meq/L 95 - 109 04/10 [place] CHEM PANEL Potassium 3.5 meq/L 3.5 - 5.1 04/10 MH Lvl [place] CHEM PANEL Calcium Lvl 7.8 mg/dL 8.5 - 10.5 04/10 [place] CHEM PANEL CO2 31 meq/L 24 - 32 04/10 [place] CHEM PANEL Glucose Lvl 95 mg/dL 70 - 99 04/10 [place] CHEM PANEL AGAP 7.5 meq/L 10.0 - 04/10 [facility] 20.0 [place] CHEM PANEL Sodium Lvl 143 meq/L 135 - 145 04/10 [place] CHEM PANEL Procalcitoni <0.05 0.00 - 04/09 [facility] n Lvl ng/mL 0. [place] HEMATOLOGY MPV 8.6 fL 7.4 - 10.4 04/09 [place] HEMATOLOGY Platelet 431 K/CMM 133 - 450 04/09 [place] HEMATOLOGY WBC X 10x3 11.5 K/CMM 3.7 - 10.4 04/09 [place] HEMATOLOGY RBC X 10x6 4.10 M/CMM 4.20 - 04/09 MH 5. [place] HEMATOLOGY Hgb 11.1 g/dL 12.0 - 04/09 MH 16.0 [place] HEMATOLOGY MCH 27.0 pg 27.0 - 04/09 MH 31.0 [place] HEMAT[facility] MCV 79.8 fL 80.0 - 04/09 MH 98.0 [place] [facility] HEMAT[facility] Hct 32.7 % 36.0 - 04/09 MH 48.0 [place] [facility] HEMATOLOGY RDW 17.7 % 11.5 - 04/09 MH 14. [place] [facility] HEMATOLOGY MCHC 33.9 g/dL 32.0 - 04/09 MH 36.0 [place] [facility] HEMATOLOGY Segs 68.8 % 45.0 - 04/09 MH 75.0 [place] HEMATOLOGY Basophils 0.4 % 0.0 - 1.0 04/09 [place] HEMAT[facility] Lymphocytes 2.5 K/CMM 1.0 - 5.5 04/09 MH # /2015 [place] HEMATOLOGY Segs-Bands # 7.9 K/CMM 1.5 - 8.1 04/09 [place] HEMATOLOGY Eosinophils 0.1 K/CMM 0.0 - 0.5 04/09 MH # /2015 [place] [facility] HEMATOLOGY Monocytes # 0.9 K/CMM 0.0 - 0.8 04/09 [place] HEMATOLOGY Eosinophils 1.1 % 0.0 - 4.0 04/09 [place] HEMATOLOGY Monocytes 8.1 % 2.0 - 12.0 04/09 [place] HEMATOLOGY Lymphocytes 21.6 % 20.0 - 04/09 MH 40.0 2016 [place] [facility] CHEM PANEL Lipase Lvl 129 unit/L 73 - 393 04/08 [place] ELECTROLYTE AGAP 9.5 meq/L 10.0 - 04/08 S 20.0 [place] [facility] ELECTROLYTE B/C Ratio 8 6 - 25 04/08 S [place] [facility] ELECTROLYTE A/G Ratio 1.2 0.7 - 1.6 04/08 S [facility] [facility] ELECTROLYTE Globulin 3.3 g/dL 2.7 - 4.2 04/08 S [facility] [place] ELECTROLYTE CO2 29 meq/L 24 - 32 04/08 S [place] ELECTROLYTE Chloride Lvl 106 meq/L 95 - 109 04/08 S [place] ELECTROLYTE Bili Total 0.4 mg/dL 0.2 - 1.3 04/08 S [place] ELECTROLYTE Calcium Lvl 8.5 mg/dL 8.5 - 10.5 04/08 S [place] ELECTROLYTE Total 7.1 g/dL 6.4 - 8.4 04/08 S Protein [place] ELECTROLYTE ASPARTATE 15 unit/L 0 - 37 04/08 S TRANSAMINASE [place] ELECTROLYTE eGFR 117 04/08 Result Comment: The eGFR is calculated using the CKD-EPI formula. In most young, healthy individuals the eGFR will be > 90 mL/min/1.73m2. The eGFR declines with age. An eGFR of 60-89 may be normal in mL/min/1. some populations, particularly the elderly, for whom the CKD-EPI formula has not been extensively validated. Use of the eGFR is not recommended in the following populations: [place] 3m2 Individuals with unstable creatinine concentrations, including patients and those with serious co-morbid conditions. Patients with extremes in muscle mass or diet. The data above are obtained from the National Kidney Disease Education Program (NKDEP) which additionally recommends that when the eGFR is used in patients with extremes of body mass index for purposes of drug dosing, the eGFR should be multiplied by the estimated BMI. ELECTROLYTE Albumin Lvl 3.8 g/dL 3.5 - 5.0 04/08 S [place] ELECTROLYTE Glucose Lvl 114 mg/dL 70 - 99 04/08 S [place] ELECTROLYTE ALANINE 20 unit/L 0 - 65 04/08 S AMINOTRANSFE /2015 [place] RASE ELECTROLYTE Alk Phos 80 unit/L 39 - 136 04/08 S [place] ELECTROLYTE Potassium 3.5 meq/L 3.5 - 5.1 04/08 S Lvl /2015 [place] ELECTROLYTE BUN 6 mg/dL 7 - 22 04/08 S [place] ELECTROLYTE Sodium Lvl 141 meq/L 135 - 145 04/08 S /2015 [place] ELECTROLYTE Creatinine 0.71 mg/dL 0.50 - 04/08 S Lvl 1.40 /2015 [place] HEMATOLOGY Basophils 0.3 % 0.0 - 1.0 04/08 [place] HEMATOLOGY Eosinophils 0.1 K/CMM 0.0 - 0.5 04/08 MH # /2015 [place] HEMATOLOGY Segs-Bands # 10.1 K/CMM 1.5 - 8.1 04/08 [place] HEMATOLOGY Lymphocytes 1.7 K/CMM 1.0 - 5.5 04/08 MH # /2016 [place] HEMATOLOGY Monocytes # 0.7 K/CMM 0.0 - 0.8 04/08 [place] HEMATOLOGY Segs 80.1 % 45.0 - 04/08 MH 75.0 [place] HEMATOLOGY Monocytes 5.8 % 2.0 - 12.0 04/08 /2015 [place] HEMATOLOGY Eosinophils 0.6 % 0.0 - 4.0 04/08 [place] HEMATOLOGY Lymphocytes 13.2 % 20.0 - 04/08 MH 40.0 [place] URINE AND UA Sq Epi Few /LPF Few /LPF 04/08 STOOL [place] URINE AND UA Spec Grav 1.015 <=1.030 04/08 STOOL [place] URINE AND UA Turbidity Clear Clear 04/08 STOOL [place] (04/08/16 11:28 AM) URINE AND UA Color Yellow Yellow 04/08 STOOL [place] *NA* (04/08/16 11:28 AM) URINE AND UA Bili Negative Negative 04/08 STOOL [place] *NA* (04/08/16 11:28 AM) URINE AND UA Ketones Negative Negative 04/08 STOOL mg/dL mg/dL [place] URINE AND UA Glucose Negative Negative 04/08 STOOL mg/dL mg/dL [place] URINE AND UA pH 8.5 5.0 - 8.0 04/08 STOOL [place] URINE AND UA Protein Negative Negative 04/08 STOOL mg/dL mg/dL [place] URINE AND UA Leuk Est Negative Negative 04/08 STOOL [place] (04/08/16 11:28 AM) URINE AND UA Nitrite Negative Negative 04/08 STOOL [place] (04/08/16 11:28 AM) URINE AND UA 0.2 EU/dL 0.1 - 1.0 04/08 STOOL Urobilinogen [place] URINE AND UA Blood Negative Negative 04/08 STOOL [place] (04/08/16 11:28 AM) URINE CHEM U Preg Negative Negative 04/08 [place] (04/08/16 11:28 AM) Abdomen Abdomen Clinical Indication: Worsening right upper quadrant pain, had EGD this morning; 04/08 - [facility] acute acute series /2015 - [place] series w w chest 1 Comparison: None chest 1 view DX view DX Read by: Cristobal Augustin MD Dictated Date/time: 04/08/16 13:14 FINDINGS: Electronically Signed by: Cristobal Augustin MD 04/08/16 13:15 FINAL REPORT The single view of the chest shows no consolidation effusion or pneumothorax. Heart size, vascular markings, and osseous structures are within normal limits. The supine and upright views of the abdomen shows a non-obstructive bowel gas pattern. There is no abnormal dilatation of bowel loops. No significant air fluid levels. There is no pneumoperitoneum. Ther e are no radiopaque densities noted. There are no clinically significant osseous abnormalities noted. IMPRESSION: 1. No acute radiographic abnormalities of the chest. 2. No acute radiographic abnormalities of the abdomen. SL: [id number] ELECTROLYTE AGAP 14.3 meq/L 10.0 - 12/23 MH S 20.0 [place] ELECTROLYTE Sodium Lvl 140 meq/L 135 - 145 12/23 S [place] ELECTROLYTE Potassium 3.3 meq/L 3.5 - 5.1 12/23 S Lvl [place] ELECTROLYTE CO2 23 meq/L 24 - 32 12/23 S [place] ELECTROLYTE Calcium Lvl 7.6 mg/dL 8.5 - 10.5 12/23 S [place] ELECTROLYTE Creatinine 0.64 mg/dL 0.50 - 12/23 S Lvl 1.40 [place] ELECTROLYTE BUN 5 mg/dL 7 - 22 12/23 S [place] ELECTROLYTE Chloride Lvl 106 meq/L 95 - 109 12/23 S [place] ELECTROLYTE eGFR 123 12/23 Result Comment: The eGFR is calculated using the CKD-EPI formula. In most young, healthy individuals the eGFR will be > 90 mL/min/1.73m2. The eGFR declines with age. An eGFR of 60-89 may be normal in [facility] mL/min/1.7 some populations, particularly the elderly, for whom the CKD-EPI formula has not been extensively validated. Use of the eGFR is not recommended in the following populations: [place] [address] Individuals with unstable creatinine concentrations, including patients and those with serious co-morbid conditions. Patients with extremes in muscle mass or diet. The data above are obtained from the National Kidney Disease Education Program (NKDEP) which additionally recommends that when the eGFR is used in patients with extremes of body mass index for purposes of drug dosing, the eGFR should be multiplied by the estimated BMI. ELECTROLYTE Glucose Lvl 108 mg/dL 70 - 99 12/23 S [place] HEMATOLOGY Platelet 371 K/CMM 133 - 450 12/23 [place] HEMATOLOGY MPV 8.1 fL 7.4 - 10.4 12/23 [place] HEMATOLOGY MCV 82.2 fL 80.0 - 12/23 MH 98.0 [place] HEMATOLOGY MCHC 32.4 g/dL 32.0 - 12/23 MH 36.0 [place] HEMATOLOGY RDW 17.7 % 11.5 - 12/23 MH 14.5 [place] HEMATOLOGY MCH 26.7 pg 27.0 - 12/23 MH 31.0 [place] HEMATOLOGY RBC X 10x6 3.93 M/CMM 4.20 - 12/23 MH 5.40 [place] HEMATOLOGY Hct 32.3 % 36.0 - 12/23 MH 48.0 [place] HEMATOLOGY Hgb 10.5 g/dL 12.0 - 12/23 MH 16.0 [place] HEMATOLOGY WBC X 10x3 9.5 K/CMM 3.7 - 10.4 12/23 [place] Gallbladder Gallbladder HEPATOBILIARY SCAN: 12/22 - [facility] H[facility] w scan HIDA - [place] meds NM meds NM HISTORY: Acute right upper quadrant pain, no evidence of gallstones by ultrasound.. Read by: Cristobal Brown MD Dictated Date/time: 12/23/15 13:55 Electronically Signed by: Cristobal Brown MD 12/23/15 13:57 FINAL REPORT PROCEDURE: 6.4 mCi of technetium 99m Choletec were given intravenously followed by anterior imaging over the upper abdomen. FINDINGS: There is prompt uptake and excretion of activity by the liver with prompt visualization of the biliary tree, gallbladder and small bowel. IMPRESSION: Normal hepatobiliary scan. [id number] CHEM PANEL eGFR 125 12/21 Result Comment: The eGFR is calculated using the CKD-EPI formula. In most young, healthy individuals the eGFR will be >90 mL/ min/1.73m2. The eGFR declines with age. An eGFR of 60-89 may be normal in mL/min/1.7 some populations, particularly the elderly, for whom the CKD-EPI formula has not been extensively validated. Use of the eGFR is not recommended in the following populations: [address] Individuals with unstable creatinine concentrations, including patients and those with serious co-morbid conditions. Patients with extremes in muscle mass or diet. The data above are obtained from the National Kidney Disease Education Program (NKDEP) which additionally recommends that when the eGFR is used in patients with extremes of body mass index for purposes of drug dosing, the eGFR should be multiplied by the estimated BMI. CHEM PANEL Potassium 3.9 meq/L 3.5 - 5.1 12/21 MH Lvl [place] CHEM PANEL Chloride Lvl 107 meq/L 95 - 109 12/21 [place] CHEM PANEL Creatinine 0.61 mg/dL 0.50 - 12/21 MH Lvl 1.40 [place] CHEM PANEL Sodium Lvl 140 meq/L 135 - 145 12/21 [place] CHEM PANEL Calcium Lvl 8.1 mg/dL 8.5 - 10.5 12/21 [place] CHEM PANEL BUN 10 mg/dL 7 - 22 12/21 [place] CHEM PANEL Glucose Lvl 88 mg/dL 70 - 99 12/21 [place] CHEM PANEL CO2 23 meq/L 24 - 32 07 MH /2015 [place] CHEM PANEL AGAP 13.9 meq/L 10.0 - 12/21 MH 20.0 [place] HEMATOLOGY Platelet 419 K/CMM 133 - 450 12/21 [place] HEMATOLOGY MPV 8.3 fL 7.4 - 10.4 07 [place] HEMATOLOGY RDW 18.3 % 11.5 - 12/21 MH 14.5 [place] HEMATOLOGY MCV 82.4 fL 80.0 - 12/21 MH 98.0 [place] HEMATOLOGY MCHC 32.1 g/dL 32.0 - 12/21 MH 36.0 [place] HEMATOLOGY MCH 26.4 pg 27.0 - 12/21 MH 31.0 [place] HEMATOLOGY Hct 34.7 % 36.0 - 12/21 MH 48.0 [place] HEMATOLOGY RBC X 10x6 4.21 M/CMM 4.20 - 12/21 MH 5.40 [place] HEMATOLOGY Hgb 11.1 g/dL 12.0 - 12/21 MH 16.0 [place] HEMATOLOGY WBC X 10x3 14.8 K/CMM 3.7 - 10.4 07 [place] HEMATOLOGY Lymphocytes 2.1 K/CMM 1.0 - 5.5 12/21 MH # /2015 [place] HEMATOLOGY Monocytes # 0.9 K/CMM 0.0 - 0.8 12/21 MH [place] HEMATOLOGY Segs-Bands # 11.7 K/CMM 1.5 - 8.1 12/21 [place] HEMATOLOGY Eosinophils 0.3 % 0.0 - 4.0 12/21 [place] HEMATOLOGY Lymphocytes 14.1 % 20.0 - 12/21 MH 40.0 [place] HEMATOLOGY Basophils 0.3 % 0.0 - 1.0 12/21 [place] HEMATOLOGY Monocytes 6.3 % 2.0 - 12.0 12/21 [place] HEMATOLOGY Segs 79.0 % 45.0 - 12/21 MH 75.0 [place] URINE AND UA Color Yellow Yellow 12/20 STOOL [place] *NA* (12/21/15 5:21 PM) URINE AND UA Turbidity Clear Clear 12/20 STOOL /2015 [place] (12/21/15 5:21 PM) URINE AND UA 0.2 EU/dL 0.1 - 1.0 12/20 STOOL Urobilinogen /2015 [place] URINE AND UA Nitrite Negative Negative 12/20 STOOL [place] (12/21/15 5:21 PM) URINE AND UA Sq Epi Few /LPF Few /LPF 12/20 [place] URINE AND UA WBC 0-2 /HPF None Seen 12/20 STOOL /HPF [place] URINE AND UA pH 8.0 5.0 - 8.0 12/20 [place] URINE AND UA Spec Grav 1.015 <=1.030 12/20 [place] URINE AND UA Protein Negative Negative 12/20 [place] (12/21/15 5:21 PM) URINE AND UA Bili Negative Negative 12/20 [place] *NA* (12/21/15 5:21 PM) URINE AND UA Glucose Negative Negative 12/20 [place] (12/21/15 5:21 PM) URINE AND UA Leuk Est Negative Negative 12/20 [place] (12/21/15 5:21 PM) URINE AND UA Blood Negative Negative 12/20 [place] (12/21/15 5:21 PM) URINE AND UA Ketones >=80 mg/dL Negative 12/20 [facility] mg/dL [place] URINE AND UA RBC 0-2 /HPF 0 - 2 12/20 [place] URINE AND UA Bacteria Occasional None Seen 12/20 STOOL /HPF /HPF [place] URINE AND UA Mucus See Note None Seen 12/20 [place] (12/21/15 5:21 PM) URINE CHEM U Preg Negative Negative 12/20 [place] (12/21/15 5:21 PM) CHEM PANEL Lipase Lvl 139 unit/L 73 - 393 12/20 [place] CHEM PANEL eGFR 111 12/20 Result Comment: The eGFR is calculated using the CKD-EPI formula. In most young, healthy individuals the eGFR will be >90 mL/ min/1.73m2. The eGFR declines with age. An eGFR of 60-89 may be normal in mL/min/1.7 some populations, particularly the elderly, for whom the CKD-EPI formula has not been extensively validated. Use of the eGFR is not recommended in the following populations: [address] Individuals with unstable creatinine concentrations, including patients and those with serious co-morbid conditions. Patients with extremes in muscle mass or diet. The data above are obtained from the National Kidney Disease Education Program (NKDEP) which additionally recommends that when the eGFR is used in patients with extremes of body mass index for purposes of drug dosing, the eGFR should be multiplied by the estimated BMI. CHEM PANEL Albumin Lvl 4.4 g/dL 3.5 - 5.0 12/20 [place] CHEM PANEL ALANINE 26 unit/L 0 - 65 12/20 AMINOTRANS [place] RASE CHEM PANEL BUN 9 mg/dL 7 - 22 12/20 [place] CHEM PANEL Glucose Lvl 103 mg/dL 70 - 99 12/20 [place] CHEM PANEL Alk Phos 91 unit/L 39 - 136 12/20 [place] CHEM PANEL Creatinine 0.74 mg/dL 0.50 - 12/20 MH Lvl 1.40 [place] CHEM PANEL ASPARTATE 23 unit/L 0 - 37 12/20 MH [place] CHEM PANEL Total 8.4 g/dL 6.4 - 8.4 12/20 [place] CHEM PANEL Chloride Lvl 104 meq/L 95 - 109 12/20 [place] CHEM PANEL Potassium 3.9 meq/L 3.5 - 5.1 12/20 MH Lvl [place] CHEM PANEL Sodium Lvl 136 meq/L 135 - 145 12/20 [place] CHEM PANEL Bili Total 0.6 mg/dL 0.2 - 1.3 12/20 [place] CHEM PANEL Calcium Lvl 8.8 mg/dL 8.5 - 10.5 12/20 [place] CHEM PANEL CO2 20 meq/L 24 - 32 12/20 [place] CHEM PANEL A/G Ratio 1.1 0.7 - 1.6 12/20 [place] CHEM PANEL Globulin 4.0 g/dL 2.0 - 4.0 12/20 [place] CHEM PANEL B/C Ratio 12 6 - 25 12/20 [place] CHEM PANEL AGAP 15.9 meq/L 10.0 - 07 MH 20.0 /2015 [place] HEMATOLOGY Lymphocytes 2.5 K/CMM 1.0 - 5.5 07/10 MH # /2016 [place] HEMATOLOGY Basophils # 0.1 K/CMM 0.0 - 0.2 07/ /2015 [place] HEMATOLOGY Monocytes # 0.8 K/CMM 0.0 - 0.8 07 [place] HEMATOLOGY Monocytes 5.1 % 2.0 - 12.0 07 [place] HEMATOLOGY Lymphocytes 15.3 % 20.0 - 07 MH 40.0 /2015 [place] HEMATOLOGY Eosinophils 0.1 % 0.0 - 4.0 12/20 [place] HEMATOLOGY Segs-Bands # 13.1 K/CMM 1.5 - 8.1 12/20 [place] HEMATOLOGY Basophils 0.6 % 0.0 - 1.0 12/20 [place] HEMATOLOGY Segs 78.9 % 45.0 - 12/20 MH 75.0 [place] HEMATOLOGY MPV 7.8 fL 7.4 - 10.4 12/20 [place] HEMATOLOGY MCH 26.3 pg 27.0 - 12/20 MH 31.0 [place] HEMATOLOGY RDW 18.0 % 11.5 - 12/20 MH 14.5 [place] HEMATOLOGY MCHC 32.6 g/dL 32.0 - 12/20 MH 36.0 [place] HEMATOLOGY Platelet 497 K/CMM 133 - 450 12/20 [place] HEMATOLOGY WBC X 10x3 16.6 K/CMM 3.7 - 10.4 12/20 [place] HEMATOLOGY RBC X 10x6 4.76 M/CMM 4.20 - 12/20 MH 5.40 /2015 [place] HEMATOLOGY Hgb 12.5 g/dL 12.0 - 12/20 MH 16.0 [place] HEMATOLOGY Hct 38.3 % 36.0 - 12/20 MH 48.0 [place] HEMATOLOGY MCV 80.5 fL 80.0 - 12/20 MH 98.0 /2015 [place] Abdomen/Pel Abdomen/Pelv Study: Abdomen/Pelvis wo IV contrast CT 12/21/2015 5: 29 PM CDT 12/20 - [facility] wo IV is wo IV /2015 - [place] contrast CT contrast CT Patient Name: DONNY VEELZ MR: [id number] Read by: David Zambrano MD Dictated Date/time: 12/21/15 19:02 : 1990; Age: 25 years y/o Female Electronically Signed by: Daivd Zambrano MD 12/21/15 19:10 FINAL REPORT Ordering Physician: Yarelis Heck Clinical Indication: Acute right lower abdominal quadrant pain for 3 days. Comparison: 12/30/2015. TECHNIQUE: Multiple contiguous transaxial CT images were obtained through the abdomen and pelvis. Sagittal and coronal reformatted images were prepared. IV CONTRAST: None. GI CONTRAST: None. CT ABDOMEN WITHOUT CONTRAST: BOWEL: Nonspecific nonobstructed bowel gas pattern. Normal appendix. Under distended appropriately thick-walled stomach. PERITONEUM: No free intraperitoneal fluid or air. RETROPERITONEUM: Multiple scattered subcentimeter retroperitoneal mesenteric lymph nodes greatest in the right lower abdominal quadrant. No lymphadenopathy, mass, or focal fluid collection is appreciate d. Mild hazy induration is seen in the central mesenteric fat diffusely. ABDOMINAL AORTA: Normal caliber abdominal aorta. SOLID ORGANS: The nonenhanced liver, gallbladder, spleen, pancreas, adrenal glands and kidneys are normal. Incidental contrast in the gallbladder, current examination consistent with vicarious excretion from the prior examination. LUNG BASES: Clear lung bases. Normal size heart. OSSEOUS STRUCTURES: No fracture, dislocation, or suspicious focal osseous lesion. CT PELVIS WITHOUT CONTRAST: URINARY BLADDER: Normal nonopacified urinary bladder. SOLID ORGANS: Normal uterus and ovaries with a small low-attenuation left ovarian lesion at 1.8 cm suspicious for a cyst or complex cysts. LYMPH NODES: Small to mildly enlarged benign-appearing bilateral inguinal lymph nodes. FREE FLUID: No free pelvic fluid. OSSEOUS STRUCTURES: No fracture, dislocation, or suspicious focal osseous lesion. IMPRESSION: 1. Nonspecific nonobstructed bowel gas pattern as above discussed. No evidence of acute appendicitis. Multiple scattered subcentimeter retroperitoneal mesenteric lymph nodes are seen greatest in the rig ht lower abdominal quadrant. Additionally, mild hazy diffusely increased attenuation is seen in the central mesentery without focal localization. Findings are suspicious for a nonspecific enteritis or mesenteric adenitis. 2. Suspect small mildly complex left ovarian cyst. SL: TPAINTER-PC Abdomen RUQ Abdomen RUQ Patient Name: DONNY VELEZ 12/20 - [facility] /2015 - Eb : 1990; Age: 25 years y/o Female MR: [id number] Read by: Jim Yates MD Dictated Date/time: 12/21/15 18:40 Electronically Signed by: Jim Yates MD 12/21/15 18:43 FINAL REPORT Study: Abdomen RUQ US dated 12/21/2015 Clinical Indication: Upper abdominal pain, acute; Comparison: CT abdomen pelvis dated 12/21/2015 TECHNIQUE: Grayscale and limited color sonographic evaluation of the right upper quadrant of the abdomen and gallbladder region was performed with standard technique. FINDINGS: LIVER: The visualized liver shows normal contour, size, and morphology with normal parenchymal echo texture. BILE DUCTS: The intrahepatic and extrahepatic bile ducts are not dilated with the common bile duct measuring 2.8 mm. The distal common bile duct is not well seen. GALLBLADDER: There are no gallstones, gallbladder sludge, pericholecystic fluid or wall thickening. PANCREAS: The visualized pancreas appears unremarkable. RIGHT KIDNEY: The right kidney measures 10.3 x 3.9 x 4.6 cm. No right pelvocaliectasis, no right nephrolithiasis and no right renal mass lesion identified. ASCITES: There is no right upper quadrant abdominal ascites. IMPRESSION: 1. Unremarkable right upper quadrant abdominal ultrasound. SL: RYNEODEBIRD- CHEM PANEL Lipase Lvl 129 unit/L 73 - 393 12/20 MH /2015 [place] ELECTROLYTE AGAP 11.7 meq/L 10.0 - 12/20 MH S 20.0 /2015 [place] ELECTROLYTE eGFR 109 12/20 Result Comment: The eGFR is calculated using the CKD-EPI formula. In most young, healthy individuals the eGFR will be > 90 mL/min/1.73m2. The eGFR declines with age. An eGFR of 60-89 may be normal in S mL/min/1.7 /2016 some populations, particularly the elderly, for whom the CKD-EPI formula has not been extensively validated. Use of the eGFR is not recommended in the following populations: [address] Individuals with unstable creatinine concentrations, including patients and those with serious co-morbid conditions. Patients with extremes in muscle mass or diet. The data above are obtained from the National Kidney Disease Education Program (NKDEP) which additionally recommends that when the eGFR is used in patients with extremes of body mass index for purposes of drug dosing, the eGFR should be multiplied by the estimated BMI. ELECTROLYTE BUN 8 mg/dL 7 - 22 12/20 S [place] ELECTROLYTE Glucose Lvl 95 mg/dL 70 - 99 / S [place] ELECTROLYTE Sodium Lvl 139 meq/L 135 - 145 07/ S [place] ELECTROLYTE Creatinine 0.76 mg/dL 0.50 - 12/20 S Lvl 1.40 [place] ELECTROLYTE CO2 25 meq/L 24 - 32 07/ S /2015 [place] ELECTROLYTE Calcium Lvl 8.8 mg/dL 8.5 - 10.5 12/20 S [place] ELECTROLYTE Chloride Lvl 106 meq/L 95 - 109 12/20 S [place] ELECTROLYTE Potassium 3.7 meq/L 3.5 - 5.1 12/20 S Lvl /2015 [place] HEMATOLOGY Hct 36.3 % 36.0 - 12/20 MH 48.0 [place] HEMATOLOGY Hgb 11.6 g/dL 12.0 - 12/20 MH 16.0 [place] HEMATOLOGY RBC X 10x6 4.47 M/CMM 4.20 - 12/20 MH 5.40 [place] HEMATOLOGY Platelet 450 K/CMM 133 - 450 12/20 [place] HEMATOLOGY RDW 18.3 % 11.5 - 12/20 MH 14.5 [place] HEMATOLOGY MCHC 31.9 g/dL 32.0 - 12/20 MH 36.0 [place] HEMATOLOGY MCH 25.9 pg 27.0 - 12/20 MH 31.0 [place] HEMATOLOGY MCV 81.3 fL 80.0 - 12/20 MH 98.0 [place] HEMATOLOGY MPV 8.0 fL 7.4 - 10.4 12/20 [place] HEMATOLOGY WBC X 10x3 16.4 K/CMM 3.7 - 10.4 12/20 [place] HEMATOLOGY Eosinophils 0.1 K/CMM 0.0 - 0.5 /10 MH # /2015 [place] HEMATOLOGY Monocytes # 0.8 K/CMM 0.0 - 0.8 10 [place] HEMATOLOGY Basophils # 0.1 K/CMM 0.0 - 0.2 12/20 [place] HEMATOLOGY Lymphocytes 14.3 % 20.0 - 12/20 MH 40.0 [place] HEMATOLOGY Segs 80.0 % 45.0 - 12/20 MH 75.0 [place] HEMATOLOGY Monocytes 4.7 % 2.0 - 12.0 12/20 [place] HEMATOLOGY Lymphocytes 2.4 K/CMM 1.0 - 5.5 12/20 MH # /2015 [place] HEMATOLOGY Segs-Bands # 13.1 K/CMM 1.5 - 8.1 12/20 [place] HEMATOLOGY Basophils 0.4 % 0.0 - 1.0 12/20 [place] HEMATOLOGY Eosinophils 0.6 % 0.0 - 4.0 12/20 [place] URINE AND UA Bacteria Few /HPF None Seen 12/19 STOOL /HPF [place] URINE AND UA RBC 0-2 /HPF 0 - 2 12/19 [place] URINE AND UA WBC 0-2 /HPF None Seen 12/19 STOOL /HPF [place] URINE AND UA Sq Epi Moderate Few /LPF 12/19 STOOL /LPF [place] URINE AND UA Nitrite Negative Negative 12/19 STOOL [place] (12/20/15 6:17 PM) URINE AND UA Blood Negative Negative 12/19 [place] (12/20/15 6:17 PM) URINE AND UA Leuk Est Negative Negative 12/19 STOOL [place] (12/20/15 6:17 PM) URINE AND UA Turbidity Clear Clear 12/19 STOOL [place] (12/20/15 6:17 PM) URINE AND UA Spec Grav 1.015 <=1.030 12/19 STOOL [place] URINE AND UA Color Yellow Yellow 12/19 [place] *NA* (12/20/15 6:17 PM) URINE AND UA 0.2 EU/dL 0.1 - 1.0 12/19 [facility] Urobilinogen [place] URINE AND Micro? Performed 12/19 STOOL [place] (12/20/15 6:17 PM) URINE AND UA Glucose Negative Negative 12/19 STOOL [place] (12/20/15 6:17 PM) URINE AND UA pH >=9.0 5.0 - 8.0 12/19 [place] *ABN* (12/20/15 6:17 PM) URINE AND UA Ketones Negative Negative 12/19 [place] *NA* (12/20/15 6:17 PM) URINE AND UA Protein Trace Negative 12/19 [place] *ABN* (12/20/15 6:17 PM) URINE AND UA Bili Negative Negative 12/19 [place] *NA* (12/20/15 6:17 PM) URINE CHEM U Preg Negative Negative 12/19 [place] (12/20/15 6:17 PM) Pelvis w Pelvis w Patient Name: DONNY VELEZ 12/19 - [facility] Transvag Transvag and - [place] and Pelvis Pelvis : 1990; Age: 25 years y/o Female Doppler US Doppler US MR: [id number] Read by: Sal Ayala MD Dictated Date/time: 12/20/15 22:21 Electronically Signed by: Sal Ayala MD 12/20/15 22:25 FINAL REPORT Study: Pelvis w Transvag and Pelvis Doppler US 12/20/2015 9:23 PM CDT Ordering Physician: Yarelis Heck Clinical Indication: Abdominal pain, acute; Comparison: None US PELVIS Technique: Grayscale, color and Doppler transabdominal and transvaginal imaging of the pelvis was performed with standard technique. FINDINGS: TRANSABDOMINAL PELVIC ULTRASOUND: UTERUS: The transabdominal pelvic ultrasound evaluation of the uterus shows that the heterogeneous uterus measures about 6.9 cm x 3.6 cm x 4.9 cm in size. The uterine parenchyma is not well assessed on the transabdominal pelvic ultrasound. OVARIES: The ovaries are not well seen on the transabdominal portion of the exam, related to bowel gas in the pelvis. OTHER FINDINGS: The transabdominal sonographic images show no free fluid in the pelvic cul-de-sac. IMPRESSION: 1. Limited assessment of the uterine parenchyma and ovaries on the transabdominal pelvic ultrasound, related to bowel gas in the pelvis. This necessitated a pelvic transvaginal ultrasound. Recommend cor relation with the transvaginal pelvic ultrasound report. TRANSVAGINAL PELVIC ULTRASOUND: UTERUS: The pelvic transvaginal sonographic images show normal uterine contour and morphology. There is normal parenchymal echotexture. The endometrial stripe measures 8.0 mm in thickness. OVARIES: The transvaginal pelvic sonographic images show that the right ovary measures 3.9 cm x 1.8 cm x 1.6 cm and the left ovary measures 3.1 cm x 2.0 cm x 2.3 cm. There are no adnexal masses. Pelvic Doppler evaluation of the ovaries demonstrate grossly normal waveforms. No sonographic evidence of ovarian torsion detected. If there is further concern, followup pelvic sonography or MRI of the pelvis may be performed. IMPRESSION: 1. Heterogeneous uterus. No definite fibroids. 2. No sonographic evidence of ovarian torsion detected. No definite adnexal mass detected. SL: [facility] ED ED CT SCAN OF THE ABDOMEN AND PELVIS WITH CONTRAST. 12/19 - [facility] Abdomen/Pel Abdomen/Pel - [facility] IV is IV HX: Clinical Indication: Lower abdominal pain. Urinary urgency. Nausea and vomiting. . contrast contrast only CT only CT Comparison: None Read by: Sal Ayala MD Dictated Date/time: 12/20/15 20:16 Electronically Signed by: Sal Ayala MD 12/20/15 20:20 FINAL REPORT Technique: Helical CT images were obtained from the domes the diaphragms to the symphysis pubis following the administration of intravenous contrast. No p.o. contrast was given. ABDOMEN AND PELVIS: The lung bases are clear. The heart is normal in size. Grossly normal gallbladder. Diffuse fatty liver infiltration. The spleen, pancreas, and adrenals are normal in appearance. The kidneys show good, symmetrical, excretion without hydronephrosis. Duplicated left collecting system. The bladder is nondistended. Prominent heterogeneous uterus and adnexas. IMPRESSION: 1. No definite acute abdominal or pelvic process detected. SL: [facility] Vital Signs Vital Sign Value Date Comments Source Respitory Rate 16 04/11/2016 [facility] Temperature Oral (F) 98 F 04/11/2016 [facility] Systolic (mm Hg) 118 04/11/2016 [facility] Diastolic (mm Hg) 71 04/11/2016 [facility] Heart Rate 77 04/11/2016 [facility] Respitory Rate 18 04/11/2016 [facility] Temperature Oral (F) 97.4 F 04/11/2016 [facility] Heart Rate 72 04/11/2016 [facility] Systolic (mm Hg) 125 04/11/2016 [facility] Diastolic (mm Hg) 78 04/11/2016 [facility] Temperature Oral (F) 98.1 F 04/11/2016 [facility] Systolic (mm Hg) 123 04/11/2016 [facility] Diastolic (mm Hg) 80 04/11/2016 [facility] Heart Rate 72 04/11/2016 [facility] Respitory Rate 18 04/11/2016 [facility] Height 162.56 cm 04/08/2016 [facility] Weight 88.636 04/08/2016 [facility] BMI Calculated 33.54 04/08/2016 [facility] Height 162.56 cm 04/08/2016 [facility] Weight 88.636 04/08/2016 [facility] BMI Calculated 33.54 04/08/2016 [facility] Systolic (mm Hg) 118 12/24/2015 [facility] Diastolic (mm Hg) 74 12/24/2015 [facility] Temperature Oral (F) 98.1 F 12/24/2015 [facility] Heart Rate 64 12/24/2015 [facility] Respitory Rate 18 12/24/2015 [facility] Systolic (mm Hg) 117 12/24/2015 [facility] Diastolic (mm Hg) 74 12/24/2015 [facility] Respitory Rate 18 12/24/2015 [facility] Heart Rate 65 12/24/2015 [facility] Temperature Oral (F) 97.8 F 12/24/2015 [facility] Temperature Oral (F) 97.4 F 12/24/2015 [facility] Heart Rate 64 12/24/2015 [facility] Systolic (mm Hg) 130 12/24/2015 [facility] Diastolic (mm Hg) 79 12/24/2015 [facility] Respitory Rate 18 12/24/2015 [facility] Height 162.56 cm 12/22/2015 [facility] BMI Calculated 32.68 12/22/2015 [facility] Weight 86.364 12/22/2015 [facility] Height 162.56 cm 12/21/2015 [facility] BMI Calculated 33.54 12/21/2015 [facility] Weight 88.636 12/21/2015 [facility] Heart Rate 85 12/21/2015 [facility] Temperature Oral (F) 98.1 F 12/21/2015 [facility] Respitory Rate 16 12/21/2015 [facility] Systolic (mm Hg) 135 12/21/2015 [facility] Diastolic (mm Hg) 75 12/21/2015 [facility] Weight 87.727 12/20/2015 [facility] Temperature Oral (F) 97.9 F 12/20/2015 [facility] Respitory Rate 18 12/20/2015 [facility] Systolic (mm Hg) 143 12/20/2015 [facility] Diastolic (mm Hg) 78 12/20/2015 [facility] Heart Rate 98 12/20/2015 [facility] Encounters Location Location Encounter Encounter Reason Attending ADM DC Status Source Details Type Number For Provider Date Date [facility] [id number] Siddharth 12/19 12/20 [facility] /2015 [facility] O[facility] [id number] Janeana 12/20 12/24 [facility] /2015 [facility] [id number] Janeana 04/08 04/11 Eb Lynne /2015 [facility] Procedures Procedure Code Date Perfomer Comments Source Tonsillectomy [id number] [facility]
--- OUTSIDE RECORDS SUMMARY | 2017-12-23 07:58 | XMS REPORT | Summary of Care ---
:1990 Author Organization [facility] Address [id number] [place] [id number] Encounter HQ [place]_[employer]rain(FIN) [id number] Date(s): 04/08/16 - 04/11/16 [facility] [id number] [place] [phone] Discharge Diagnosis: Abdominal pain, acute, epigastric Discharge Disposition: Home or Self Care Attending Physician: Payton Lynne MD Admitting Physician: Payton Lynne MD Vital Signs Most recent to oldest 1 2 3 [Reference Range]: Height 162.56 cm 162.56 cm (04/08/16 5:42 PM) (04/08/16 10:37 AM) Temperature Oral 98 DegF 97.4 DegF 98.1 DegF [96.4-99.1 DegF] (04/11/16 8:00 AM) (04/11/16 4:20 AM) (04/10/16 11:55 PM) Blood Pressure 118/71 mmHg 125/78 mmHg 123/80 mmHg [90-140/60-90 mmHg] (04/11/16 8:00 AM) (04/11/16 4:20 AM) (04/10/16 11:55 PM ) Respiratory Rate [14-20 16 BRMIN 18 BRMIN 18 BRMIN BRMIN] (04/11/16 8:00 AM) (04/11/16 4:20 AM) (04/10/16 11:55 PM) Peripheral Pulse Rate 77 bpm 72 bpm 72 bpm [60-100 bpm] (04/11/16 8:00 AM) (04/11/16 4:20 AM) (04/10/16 11:55 PM) Weight 88.636 kg 88.636 kg (04/08/16 5:42 PM) (04/08/16 10:37 AM) Body Mass Index 33.54 m2 33.54 m2 (04/08/16 5:42 PM) (04/08/16 10:37 AM) Problem List Condition Effective Dates Status Health Status Informant Gastric ulcer(Confirmed) Active Allergies, Adverse Reactions, Alerts Substance Reaction Severity Status NKDA Active Medications acetaminophen 650 mg, 2 tab, Route: PO, Drug form: TAB, Q4H, Dosing Weight 88.636, kg, PRN Pain 1-3/Temp > 100.4 F, Start date: 04/09/16 17:41:00 CDT, Duration: 30 day, Stop date: 05/09/16 17:40:00 [employer] Notes: Do not exceed 4 gm/day. (Same as: Tylenol) Start Date: 04/09/16 Stop Date: 04/11/16 Status: DiscontinuedBentyl 20 mg, 1 tab, Route: PO, Drug form: TAB, QID, Dosing Weight 88.636, kg, Start date: 04/09/16 21:00:00 CDT, Duration: 30 day, Stop date: 05/09/16 17:00:00 [employer] Notes: (Same as: Bentyl) Start Date: 04/09/16 Stop Date: 04/11/16 Status: DiscontinuedCarafate 1 g/10 mL oral suspension 1 gm, 10 mL, Route: PO, Drug form: SUSP, QID, Dosing Weight 88.636, kg, Start date: 04/09/16 13:00:00 CDT, Duration: 30 day, Stop date: 05/09/16 9:00:00 [employer] Notes: Enteral feeds may interfere with the absorption of this medication. Shake well. Take 1 hr before or 2 hrs after antacids, dairy pdt, minerals & meals. (Same As: Carafate) Start Date: 04/09/16 Stop Date: 04/09/16 Status: DiscontinuedCarafate 1 g/10 mL oral suspension 1 gm=10 mL, PO, QID, # 1200 mL, 0 Refill(s), Pharmacy: [id number] Start Date: 04/11/16 Stop Date: 05/11/16 Status: OrderedCarafate 1 g/10 mL oral suspension 1 gm, 10 mL, Route: PO, Drug form: SUSP, QID-Before Meals, Dosing Weight 88.636 , kg, Start date: 04/09/16 21:00:00 CDT, Duration: 30 day, Stop date: 05/09/16 16:30:00 [employer] Notes: Enteral feeds may interfere with the absorption of this medication. Shake well. Take 1 hr before or 2 hrs after antacids, dairy pdt, minerals & meals. (Same As: Carafate) Start Date: 04/09/16 Stop Date: 04/11/16 Status: Discontinueddicyclomine 20 mg oral tablet 20 mg=1 tab, PO, QID, # 56 tab, 1 Refill(s), Pharmacy: [id number] Start Date: 04/11/16 Stop Date: 05/09/16 Status: Orderedhydromorphone 1 mg, 1 mL, Route: IVP, Drug form: INJ, ONCE, Dosing Weight 88.636, kg, Priority : STAT, Start date: 04/08/16 11:05:00 CDT, Stop date: 04/08/16 11:05:00 CDT Notes: Same as: Dilaudid Start Date: 04/08/16 Stop Date: 04/08/16 Status: Completedibuprofen 600 mg, 1 tab, Route: PO, Drug form: TAB, TID, Dosing Weight 88.636, kg, Start date: 04/08/16 18:20:00 CDT, Duration: 30 day, Stop date: 05/08/16 17:00:00 [employer] Notes: (Same as: Motrin)"Do Not Crush" Take with food. Start Date: 04/08/16 Stop Date: 04/08/16 Status: Discontinuedinfluenza virus vaccine, inactivated 0.5 mL, Route: IM, Drug Form: SUSP, Daily, Start date: 04/09/16 9:00:00 CDT, Duration: 1 doses or times, Stop date: 04/09/16 9:00:00 CDT Notes: (Same as: Fluzone Quadrivalent, Fluarix Quadrivalent)For 3 years of age and older (0.5 mL IM)Shake well before use Start Date: 04/09/16 Stop Date: 04/09/16 Status: Completedmetoclopramide 10 mg, 2 mL, Route: IVP, Drug form: INJ, ONCE, Dosing Weight 88.636, kg, Priority: STAT, Start date:04/08/16 11:05:00 CDT, Stop date: 04/08/16 11:05:00 CDT Notes: (Same as: Reglan) Start Date: 04/08/16 Stop Date: 04/08/16 Status: Completedmorphine Sulfate 2 mg, 1 mL, Route: IVP, Drug form: INJ, Q2H, Dosing Weight 88.636, kg, PRN Pain Score 7-10, Start date: 04/08/16 19:27:00 CDT, Duration: 30 day, Stop date: 19:26:00 [employer] Notes: (Same as:MORPhine Sulfate) Start Date: 04/08/16 Stop Date: 04/11/16 Status: DiscontinuedNeurontin 300 mg oral capsule 300 mg, 1 cap, Route: PO, Drug form: CAP, TID, Dosing Weight 88.636, kg, Start date: 04/09/16 13:00:00 CDT, Duration: 30 day, Stop date: 05/09/16 9:00:00 [employer] Notes: (Same as: Neurontin) Start Date: 04/09/16 Stop Date: 04/11/16 Status: DiscontinuedNeurontin 300 mg oral capsule 300 mg=1 cap, PO, TID, # 30 cap, 1 Refill(s) Start Date: 04/08/16 Stop Date: 04/11/16 Status: DiscontinuedNeurontin 300 mg oral capsule 300 mg=1 cap, PO, TID, # 30 cap, 1 Refill(s), Pharmacy: [id number] Start Date: 04/11/16 Status: Orderedondansetron 4 mg, 2 mL, Route: IVP, Drug form: INJ, Q6H, Dosing Weight 88.636, kg, PRN Nausea & Vomiting, Start date: 04/08/16 16:35:00 CDT, Duration: 30 day, Stop date: 05/08/16 16:34:00 [employer] Notes: (Same as: Zofran) MEDICATION WASTE Product Size: 4 mgProduct Wasted: ___ mg Start Date: 04/08/16 Stop Date: 04/11/16 Status: Discontinuedpantoprazole 40 mg, Route: IVP, Drug form: INJ, ONCE, Dosing Weight 88.636, kg, For IV push reconstitute with 10 ml 0.9% sodium chloride and push over at least 3 minutes, Priority: STAT, Start date: 04/08/16 11:05:00 CDT, Stop date: 04/08/16 11:05:00 CDT Notes: (Same as: Protonix) Start Date: 04/08/16 Stop Date: 04/08/16 Status: Completedpantoprazole 40 mg, 1 tab, Route: PO, Drug form: ECTAB, BID-Before Meals, Dosing Weight 88.636, kg, Start date: 04/09/16 16:30:00 CDT, Duration: 30 day, Stop date: 7:30:00 [employer] Notes: Tablet should not be chewed or crushed.(Same as: Protonix) Start Date: 04/09/16 Stop Date: 04/09/16 Status: Discontinuedpantoprazole 40 mg, Route: IVP, Drug form: INJ, Before Breakfast, Dosing Weight 88.636, kg, Start date: 04/09/16 7:30:00 CDT, Duration: 30 day, Stop date: 05/08/16 7:30:00 [employer] Notes: For IV push reconstitute with 10 ml 0.9% sodium chloride and push over 2 minutes. (Same as: Protonix) Start Date: 04/09/16 Stop Date: 04/09/16 Status: DiscontinuedPhenergan 25 mg, 2 tab, Route: PO, Drug form: TAB, Q6H, Dosing Weight 88.636, kg, PRN Nausea & Vomiting, Start date: 04/08/16 19:28:00 CDT, Stop date: 05/08/16 19 :27:00 [employer] Notes: (Same as: Phenergan) Start Date: 04/08/16 Stop Date: 04/11/16 Status: DiscontinuedPhenergan 25 mg rectal suppository 25 mg=1 supp, KS, Q6H, PRN Nausea & Vomiting, X 3 day, # 12 supp, 0 Refill(s ) Start Date: 04/08/16 Stop Date: 04/11/16 Status: CompletedProtonix 40 mg, Route: IV, Drug form: INJ, ONCE, Dosing Weight 88.636, kg, Start date: 4:43:00 CDT, Stop date: 04/09/16 4:43:00 CDT Notes: For IV push reconstitute with 10 ml 0.9% sodium chloride and push over 2 minutes. (Same as: Protonix) Start Date: 04/09/16 Stop Date: 04/09/16 Status: CompletedProtonix 40 mg, 1 tab, Route: PO, Drug form: ECTAB, Before Breakfast, Dosing Weight 88.636, kg, Start date: 04/09/16 7:30:00 CDT, Duration: 30 day, Stop date: 05/08 7:30:00 [employer] Notes: Tablet should not be chewed or crushed.(Same as: Protonix) Start Date: 04/09/16 Stop Date: 04/08/16 Status: CanceledProtonix 40 mg, Route: IVP, Drug form: INJ, BID-Meals, Dosing Weight 88.636, kg, Start date: 04/10/16 8:00:00CDT, Duration: 30 day, Stop date: 05/09/16 17:00:00 [employer] Notes: For IV push reconstitute with 10 ml 0.9% sodium chloride and push over 2 minutes. (Same as: Protonix) Start Date: 04/10/16 Stop Date: 04/11/16 Status: DiscontinuedReglan 10 mg, 2 mL, Route: IVP, Drug form: INJ, Q6H, Dosing Weight 88.636, kg, Start date: 04/09/16 18:00:00 CDT, Duration: 30 day, Stop date: 05/09/16 12:00:00 [employer] Notes: (Same as: Reglan) Start Date: 04/09/16 Stop Date: 04/11/16 Status: DiscontinuedReglan 5 mg oral tablet 5 mg, 1 tab, Route: PO, Drug form: TAB, TID-Before Meals, Dosing Weight 88.636, kg, Start date: 04/09/16 7:30:00 CDT, Duration: 30 day, Stop date: 05/08/16 16: 30:00 [employer] Notes: (Same as: Reglan) Take 30 min before meals Start Date: 04/09/16 Stop Date: 04/09/16 Status: DiscontinuedSaline Flush 0.9% 10 mL, Route: IVP, Drug Form: INJ, Dosing Weight 88.636, kg, PRN, PRN Line Flush , Start date: 04/08/16 11:05:00 CDT, Duration: 30 day, Stop date: 05/08/16 10:04 :00 [employer] Notes: (Same as: BD Posiflush) Start Date: 04/08/16 Stop Date: 04/08/16 Status: DiscontinuedSaline Flush 0.9% 10 ml, Route: IVP, Drug Form: INJ, Dosing Weight 88.636, kg, PRN, PRN Line Flush , Start date: 04/08/16 16:35:00 CDT, Duration: 30 day, Stop date: 05/08/16 15:34 :00 [employer] Notes: (Same as: BD Posiflush) Start Date: 04/08/16 Stop Date: 04/11/16 Status: DiscontinuedSodium Chloride 0.9% (Bolus) IV 1,000 mL, 2,000 ml/hr, Infuse Over: 30 minutes, Route: IV, 1,000, Drug form: INJ , ONCE, Priority: STAT, Dosing Weight 88.636 kg, Start date: 04/08/16 11:05:00 CDT, Duration: 1 doses or times, Stop date: 04/08/16 11:05:00 CDT Start Date: 04/08/16 Stop Date: 04/08/16 Status: Completedsodium chloride 0.9% 1000 ml INJ 1,000 mL 1,000 mL, Rate: 125 ml/hr, Infuse over: 8 hr, Route: IV, Dosing Weight 88.636 kg , Total Volume: 1,000, Start date: 04/08/16 16:35:00 CDT, Duration: 30 day, Stop date: 05/08/16 16:34:00 [employer] Start Date: 04/08/16 Stop Date: 04/11/16 Status: DiscontinuedZofran 4 mg, Route: IVP, Drug form: INJ, ONCE, Dosing Weight 88.636, kg, Priority: STAT , Start date: 04/08/16 15:22:00 CDT, Stop date: 04/08/16 15:22:00 CDT Start Date: 04/08/16 Stop Date: 04/08/16 Status: CompletedZofran 4 mg, 2 mL, Route: IVP, Drug form: INJ, Q8H, Dosing Weight 88.636, kg, PRN Nausea, Start date: 04/08/16 19:28:00 CDT, Duration: 30 day, Stop date: 19:27:00 [employer] Notes: (Same as: Zofran) MEDICATION WASTE Product Size: 4 mgProduct Wasted: ___ mg Start Date: 04/08/16 Stop Date: 04/11/16 Status: DiscontinuedZofran ODT 4 mg, 1 tab, Route: PO, Drug form: TABDIS, BID, Dosing Weight 88.636, kg, PRN Nausea & Vomiting,Start date: 04/09/16 10:58:00 CDT, Duration: 30 day, Stop date: 05/09/16 10:57:00 [employer] Notes: (Same as: Zofran ODT) Start Date: 04/09/16 Stop Date: 04/11/16 Status: DiscontinuedZofran ODT 4 mg oral tablet, disintegrating 4 mg=1 tab, PO, BID, PRN Nausea and Vomiting, Dissolve tab under tongue, X 5 day , # 10 tab, 0 Refill(s) Start Date: 04/08/16 Stop Date: 04/13/16 Status: Completed Results ELECTROLYTES Most recent to oldest 1 2 3 [Reference Range]: Sodium Lvl [135-145 mEq/L] 141 mEq/L 143 mEq/L 141 mEq/L (04/11/16 3:44 AM) (04/10/16 3:33 AM) (04/08/16 11:28 AM) Potassium Lvl [3.5-5.1 3.9 mEq/L 3.5 mEq/L 3.5 mEq/L mEq/L] (04/11/16 3:44 AM) (04/10/16 3:33 AM) (04/08/16 11:28 AM) Chloride Lvl [95-109 mEq/L] 105 mEq/L 108 mEq/L 106 mEq/L (04/11/16 3:44 AM) (04/10/16 3:33 AM) (04/08/16 11:28 AM) CO2 [24-32 mEq/L] 30 mEq/L 31 mEq/L 29 mEq/L (04/11/16 3:44 AM) (04/10/16 3:33 AM) (04/08/16 11:28 AM) AGAP [10.0-20.0 mEq/L] 9.9 mEq/L 7.5 mEq/L 9.5 mEq/L *LOW* *LOW* *LOW* (04/11/16 3:44 AM) (04/10/16 3:33 AM) (04/08/16 11:28 AM) CHEM PANEL Most recent to oldest 1 2 3 [Reference Range]: Creatinine Lvl [0.50-1.40 0.67 mg/dL 0.67 mg/dL 0.71 mg/dL mg/dL] (04/11/16 3:44 AM) (04/10/16 3:33 AM) (04/08/16 11:28 AM) eGFR 121 mL/min/1.73m2 1 121 mL/min/1.73m2 2 117 mL/min/1.73m2 3 *NA* *NA* *NA* (04/11/16 3:44 AM) (04/10/16 3:33 AM) (04/08/16 11:28 AM) BUN [7-22 mg/dL] 2 mg/dL 4 mg/dL 6 mg/dL *LOW* *LOW* *LOW* (04/11/16 3:44 AM) (04/10/16 3:33 AM) (04/08/16 11:28 AM) B/C Ratio [6-25] 8 (04/08/16 11:28 AM) Glucose Lvl [70-99 mg/dL] 111 mg/dL 95 mg/dL 114 mg/dL *HI* (04/10/16 3:33 AM) *HI* (04/11/16 3:44 AM) (04/08/16 11:28 AM) Total Protein [6.4-8.4 g/dL] 7.1 g/dL (04/08/16 11:28 AM) Albumin Lvl [3.5-5.0 g/dL] 3.8 g/dL (04/08/16 11:28 AM) Globulin [2.7-4.2 g/dL] 3.3 g/dL (04/08/16 11:28 AM) A/G Ratio [0.7-1.6] 1.2 (04/08/16 11:28 AM) Calcium Lvl [8.5-10.5 mg/dL] 7.8 mg/dL 7.8 mg/dL 8.5 mg/dL *LOW* *LOW* (04/08/16 11:28 AM) (04/11/16 3:44 AM) (04/10/16 3:33 AM) ALT [0-65 unit/L] 20 unit/L (04/08/16 11:28 AM) AST [0-37 unit/L] 15 unit/L (04/08/16 11:28 AM) Alk Phos [39-136 unit/L] 80 unit/L (04/08/16 11:28 AM) Bili Total [0.2-1.3 mg/dL] 0.4 mg/dL (04/08/16 11:28 AM) Lipase Lvl [73-393 unit/L] 129 unit/L (04/08/16 11:28 AM) Procalcitonin Lvl [0.00-0.10 <0.05 ng/mL ng/mL] (04/09/16 4:19 AM) 1Result Comment: The eGFR is calculated using [...] 1 2 3 U Preg [Negative] Negative (04/08/16 11:28 AM) URINE AND STOOL Most recent to oldest [Reference Range]: 1 2 3 UA Turbidity [Clear] Clear (04/08/16 11:28 AM) UA Color [Yellow] Yellow *NA* (04/08/16 11:28 AM) UA pH [5.0-8.0] 8.5 *HI* (04/08/16 11:28 AM) UA Spec Grav [<=1.030] 1.015 (04/08/16 11:28 AM) UA Glucose [Negative mg/dL] Negative mg/dL (04/08/16 11:28 AM) UA Blood [Negative] Negative (04/08/16 11:28 AM) UA Ketones [Negative mg/dL] Negative mg/dL *NA* (04/08/16 11:28 AM) UA Protein [Negative mg/dL] Negative mg/dL (04/08/16 11:28 AM) UA Urobilinogen [0.1-1.0 EU/dL] 0.2 EU/dL (04/08/16 11:28 AM) UA Bili [Negative] Negative *NA* (04/08/16 11:28 AM) UA Leuk Est [Negative] Negative (04/08/16 11:28 AM) UA Nitrite [Negative] Negative (04/08/16 11:28 AM) UA Sq Epi [Few /LPF] Few /LPF (04/08/16 11:28 AM) HEMATOLOGY Most recent to oldest 1 2 3 [Reference Range]: WBC [3.7-10.4 K/CMM] 8.7 K/CMM 7.1 K/CMM 11.5 K/CMM (04/11/16 3:44 AM) (04/10/16 11:52 AM) *HI* (04/09/16 4:19 AM) RBC [4.20-5.40 M/CMM] 3.73 M/CMM 4.04 M/CMM 4.10 M/CMM *LOW* *LOW* *LOW* (04/11/16 3:44 AM) (04/10/16 11:52 AM) (04/09/16 4:19 AM) Hgb [12.0-16.0 g/dL] 10.1 g/dL 10.8 g/dL 11.1 g/dL *LOW* *LOW* *LOW* (04/11/16 3:44 AM) (04/10/16 11:52 AM) (04/09/16 4:19 AM) Hct [36.0-48.0 %] 30.5 % 33.2 % 32.7 % *LOW* *LOW* *LOW* (04/11/16 3:44 AM) (04/10/16 11:52 AM) (04/09/16 4:19 AM) MCV [80.0-98.0 fL] 81.8 fL 82.1 fL 79.8 fL (04/11/16 3:44 AM) (04/10/16 11:52 AM) *LOW* (04/09/16 4:19 AM) MCH [27.0-31.0 pg] 27.1 pg 26.8 pg 27.0 pg (04/11/16 3:44 AM) *LOW* (04/09/16 4:19 AM) (04/10/16 11:52 AM) MCHC [32.0-36.0 g/dL] 33.2 g/dL 32.6 g/dL 33.9 g/dL (04/11/16 3:44 AM) (04/10/16 11:52 AM) (04/09/16 4:19 AM) RDW [11.5-14.5 %] 17.4 % 17.2 % 17.7 % *HI* *HI* *HI* (04/11/16 3:44 AM) (04/10/16 11:52 AM) (04/09/16 4:19 AM) Platelet [133-450 K/CMM] 360 K/CMM 393 K/CMM 431 K/CMM (04/11/16 3:44 AM) (04/10/16 11:52 AM) (04/09/16 4:19 AM) MPV [7.4-10.4 fL] 9.0 fL 8.6 fL 8.6 fL (04/11/16 3:44 AM) (04/10/16 11:52 AM) (04/09/16 4:19 AM) Segs [45.0-75.0 %] 68.8 % 80.1 % (04/09/16 4:19 AM) *HI* (04/08/16 11:28 AM) Lymphocytes [20.0-40.0 %] 21.6 % 13.2 % (04/09/16 4:19 AM) *LOW* (04/08/16 11:28 AM) Monocytes [2.0-12.0 %] 8.1 % 5.8 % (04/09/16 4:19 AM) (04/08/16 11:28 AM) Eosinophils [0.0-4.0 %] 1.1 % 0.6 % (04/09/16 4:19 AM) (04/08/16 11:28 AM) Basophils [0.0-1.0 %] 0.4 % 0.3 % (04/09/16 4:19 AM) (04/08/16 11:28 AM) Segs-Bands # [1.5-8.1 K/CMM] 7.9 K/CMM 10.1 K/CMM (04/09/16 4:19 AM) *HI* (04/08/16 11:28 AM) Lymphocytes # [1.0-5.5 2.5 K/CMM 1.7 K/CMM K/CMM] (04/09/16 4:19 AM) (04/08/16 11:28 AM) Monocytes # [0.0-0.8 K/CMM] 0.9 K/CMM 0.7 K/CMM *HI* (04/08/16 11:28 AM) (04/09/16 4:19 AM) Eosinophils # [0.0-0.5 0.1 K/CMM 0.1 K/CMM K/CMM] (04/09/16 4:19 AM) (04/08/16 11:28 AM) Immunizations Not Given Vaccine Date Status Refusal Reason influenza virus vaccine, inactivated 04/11/16 Not Given Patient Refuses Procedures Procedure Date Related Diagnosis Body Site Tonsillectomy Social History Social History Type Response Substance Abuse Use: None. Alcohol Never Smoking Status Current some day smoker; Ready to change: No; Concerns about tobacco use in household: No; Exposure to Tobacco Smoke None; Other Tobacco Frequency half a pack; Cigarette Smoking Last 365 Days No; Reg Smoking Cessation Counseling No Assessment and Plan Extracted from: Title: Clinical Document Author: Vidal Plunkett MD Date: 04/11/16 Progress Note - Daily [facility] Completed: Mar, 17:36 by Vidal Plunkett MD RM: [id number] - 1P, BL PN3 [id number] 26y (: 1990) F Attending: Payton Lynne MD Service: Internal Medicine Reason for Admission: INTRACTABLE VOMITING Working DRG: None Documented Code status: None Specified=FULL CODE Current diet: Isolation: None Documented Allergies: NKDA SUBJECTIVE No further nausea ro vomitting 24hr Labs 04/11 0344 Glucose Lvl 111 H BUN 2 L Creatinine Lvl 0.67 Sodium Lvl 141 Potassium Lvl 3.9 Chloride Lvl 105 CO2 30 AGAP 9.9 L Calcium Lvl 7.8 L eGFR 121 WBC 8.7 RBC 3.73 L Hgb 10.1 L Hct 30.5 L MCV 81.8 MCH 27.1 MCHC 33.2 RDW 17.4 H Platelet 360 MPV 9.0 Hurtado still necessary (Yes/No): Line still necessary (Yes/No): Vitals Tmp(F) Pulse BP RR SpO2 FIO2 04/11 08:00 98 77 118/71 16 100 --- 04/11 04:20 97.4 72 125/78 18 98 --- 04/10 23:55 98.1 72 123/80 18 97 --- 04/10 20:08 98.0 75 124/78 18 99 --- 04/10 16:00 98.3 82 117/78 18 --- --- 24 Hr Tmax: 98.1F (36.72c) at 04/10 23:55 Vital Signs are the last 5 in the past 48 hours. Date Wt(kg) Wt(lb) Ht(cm) Ht(in) Method 04/08 (initial) 88.64 195.00 162.56 64.00 Estimated I&O Record In Out Bal 04/11 24hr Tot 0 0 0 04/10 24hr Tot [phone] Medications (13) Active Scheduled Meds (5): 04/09/16 dicyclomine (Bentyl) 20 mg PO QID 04/09/16 gabapentin (Neurontin 300 mg oral capsule) 300 mg PO TID 04/09/16 metoclopramide (Reglan) 10 mg IVP Q6H 04/10/16 pantoprazole (Protonix) 40 mg IVP BID-Meals 04/09/16 sucralfate (Carafate 1 g/10 mL oral suspension) 1 gm PO QID-Before Meals Unscheduled Meds: None PRN Meds (7): 04/09/16 acetaminophen 650 mg PO Q4H 04/08/16 morphine Sulfate 2 mg IVP Q2H 04/08/16 ondansetron 4 mg IVP Q6H 04/08/16 ondansetron (Zofran) 4 mg IVP Q8H 04/09/16 ondansetron (Zofran ODT) 4 mg PO BID 04/08/16 promethazine (Phenergan) 25 mg PO Q6H 04/08/16 sodium chloride (Saline Flush 0.9%) 10 ml IVP PRN One Time Meds: None Continuous Infusions (1): 04/08/16 sodium chloride 0.9% 1000 ml INJ 1,000 mL 1,000 mL 125 ml/hr EXAM: HEENT: EOM intact, No scleral icterus NECK: Supple CHEST: CTA B/L, No retractions, CVS: S1 and S2 WNL ABDOMEN: soft, BS +, no rebound, No guarding, No tenderness EXT: No edema, SKIN: No jaundice NEURO: AAO x 3 ASSESSMENT: 1. Upper abdominal pain. 2. Nausea and vomiting. 3. History of gastric and duodenal ulcer. Endcoscopy x2. RECOMMENDATIONS: 1. PPI IV b.i.d. 2. Carafate suspension q.i.d. 3. Reglan q.i.d. 4. Advance diet to bariatric soft sidet 5. Dc ernesto today. F/U Dr Pérez in 1-2 weeks. Pt to call to schedule office vist Extracted from: Title: Discharge Summary Author: Payton Lynne MD Date: 04/11/16 Discharge Summary [facility] Hospitalist Name: Jaye Pérez Record Number: [id number] Admission Date: 04/08/2016 Discharge Date: 04/11/2016 Copies to: Diagnoses: 1. Gastric ulcer - pain 2. Nicotine dependence Procedures: none Chief Complaint: abdominal pain, N/V HPI: 26 year old F with pmh of gastric ulcer, ?pancreatitis who just had EGD completed today, complains of 2 weeks of intractable nausea and vomiting, and body aches. She has been vomiting roughly 2x/da y. But over the past 4 days, vomiting has worsened in frequency to over 4- 5xday. She noticed specks of blood in her vomitus today. She has been able to keep down broth and water, but has a difficult darrell e with solid food. She was given zofran for nausea, but wasn't able to hold it down for it to benefit her. Dr. Pérez, who performed EGD, told her to come to ER if her symptoms did not improve, thus she presented today for treatment. Labs showed elevated WBC with left shift, no fever, hgb wnl. Vitals stable. She was treated with pain medication, zofran, reglan, and IV fluid hydration. ER called GI for consultation PMH: as noted above Hospital course: patient did well with IV PPI and bowel rest with slow advancement to re-introduce clears/fulls and now soft. Vitals T98 BP18/71 R16 P77 HEENT; looks well Lungs clear Cardiovascular S1S2 RRR without murmur Abdomen soft, NT/ND with +BS Discharge condition: stable Recent signficant physical findings: Recent significant lab & radiology results: Discharge therapy: Medications see discharge medication reconciliation Diet low fat, soft, advance as able Activity as tolerated Follow up 1. PCP 1 week hospital follow up 2. Gastroenterology in 2 weeks Time spent with face to face evaluation and discharge care support < 30 minutes Extracted from: Title: Hospitalist H&P Author: Helen Dong MD Date: 04/08/16 Patient was admitted on 04/08/2016 Attending: Helen Dong MD Service: Internal Medicine Code status: None Specified=FULL CODE Reason for Admission: INTRACTABLE VOMITING Working DRG: None Documented Isolation: None Documented Consulting Physicians: Vidal Plunkett MD Office: Service: Gastroenterology 26 year old F with pmh of gastric ulcer, ?pancreatitis who just had EGD completed today, complains of 2 weeks of intractable nausea and vomiting, and body aches. She has been vomiting roughly 2x/day. Bu t over the past 4 days, vomiting has worsened in frequency to over 4-5xday. She noticed specks of blood in her vomitus today. She has been able to keep down broth and water, but has a difficult time wit h solid food. She was given zofran for nausea, but wasn't able to hold it down for it to benefit her. Dr. Pérez, who performed EGD, told her to come to ER if her symptoms did not improve, thus she p resented today for treatment. Labs showed elevated WBC with left shift, no fever, hgb wnl. Vitals stable. She was treated with pain medication, zofran, reglan, and IV fluid hydration. ER called GI for consultation. PMH: please see HPI SH: no smoking, illicit drug use, or etoh use FH: noncontributory Home Meds: Please see med rec Allergies: NKDA ROS: 14 point systems reviewed and are negative unless otherwise noted in HPI I&O Record In Out Bal 04/08 24hr Tot 1022 0 1022 04/07 24hr Tot 0 0 0 Lines, Tubes, and Drains: 04/08/2016 11:33 Peripheral Lines: Antecubital Left 20 gauge Over the needle catheter Vitals Tmp(F) Pulse BP RR SpO2 FIO2 04/08 17:09 98.2 74 155/90 18 100 --- 04/08 16:15 98.2 80 135/84 18 99 --- 04/08 13:40 98.6 72 106/59 18 --- --- 04/08 12:04 ---- 83 133/81 18 --- --- 04/08 10:37 97.6 81 150/88 18 99 --- 24 Hr Tmax: 98.6F (37.00c) at 04/08 13:40 Vital Signs are the last 5 in the past 48 hours. Physical Exam General: alert, awake, NAD, well nourished HEENT: normocephalic, atraumatic, PERRLA, EOMI, normal pharynx, tongue midline , uvula midline, no cervical or posterior auricular lymphadenopathy Cardiovascular: rrr, no m/r/g, no JVD, no carotid bruits, chest wall tenderness noted Respiratory: CTAB, no w/r/c, normal respiratory effort, symmetric air entry Abdomen: flat, ND, nl BS, tenderness especially at right upper and right lower quadrants, with associated + muscle spasm, no HSM, no renal bruits Extremities: no edema, cyanosis Integumentary: dry, intact. Neurologic: no focal deficits Psych: normal affect, no SI/HI Medications (9) Active Scheduled: (3) influenza virus vaccine (inactivated) quad PF 0.5 mL syringe 0.5 mL, IM, Daily metoclopramide 5 mg, PO, TID-Before Meals pantoprazole 40 mg, PO, Before Breakfast Continuous: (1) sodium chloride 0.9% 1000 ml INJ 1,000 mL 1,000 mL, IV, 125 ml/hr PRN: (5) morphine Sulfate 2 mg, IVP, Q2H ondansetron 4 mg, IVP, Q8H ondansetron 4 mg/2ml INJ VL 4 mg 2 mL, IVP, Q6H promethazine 25 mg, PO, Q6H sodium chloride 0.9% 10 ml flush syr BD 10 ml, IVP, PRN Labs (Last four charted values) WBC H 12.7 (APR 08) Hgb L 11.3 (APR 08) Hct L 33.7 (APR 08) Plt 398 (APR 08) Na 141 (APR 08) K 3.5 (APR 08) CO2 29 (APR 08) Cl 106 (APR 08) Cr 0.71 (APR 08) BUN L 6 (APR 08) Glucose Random H 114 (APR 08) Ca 8.5 (APR 08) No qualifying data available Assessment and Plan: Intractable nausea and vomiting - reglan standing - prn zofran and phenergan - protonix IV daily - GI consultation - liquid diet - IV fluid hydration - pain control for muscle aches - advance diet per tolerance Large Gastric Ulcer - protonix daily IV, will switch to oral as pt can tolerate it - avoid NSAIDs, aspirin, etc Leukocytosis - possibly secondary to intravascular volume depletion - will repeat in AM, no empiric abx at this point - check procalcitonin DVT Prophylaxis: SCDs, ambulation, as per protocol 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
[2017-12-23] MEDS ORDERED: NA CHLORIDE 0.9% 1,000 ML ONE (08:41)
[2017-12-23] MEDS ORDERED: PROMETHAZINE 25 MG/ML VIAL ONE (08:41)
[2017-12-23 09:15] LABS: Absolute Lymphocytes (CBC) 0.8 K/uL (0.7-4.9); Absolute Monocytes 0.9 K/uL (0.1-1.3); Absolute Neutrophil 18.9 K/uL (1.8-8.0); Basophils % 1.3 % (0-1.3); Eosinophils % 0.1 % (0-4.4); Hematocrit 32.8 % (36.0-45.0); MCH 24.6 pg (27.0-35.0); MCV 76.3 fL (80-100); MPV 8.2 fL (7.6-11.3); Monocytes % 4.3 % (3.3-12.3)
[2017-12-23 09:20] LABS: BUN Blood Urea Nitrogen 9 mg/dL (7-18); Bicarbonate 25 mmol/L (21-32); Glucose Level 109 mg/dL (74-106); Potassium 3.5 mmol/L (3.5-5.1); Sodium Level 139 mmol/L (136-145)
[2017-12-23] MEDS ORDERED: ONDANSETRON 4 MG/2 ML VIAL ONE (09:52)
[2017-12-23] MEDS ORDERED: FAMOTIDINE 20 MG/2 ML VIAL IV ONE (09:52)
[2017-12-23 10:18] LABS: Urine Blood 3+ (NEG); Urine Glucose NEGATIVE (NEG); Urine Protein 1+ (NEG); Urine pH 8.5 (5.0-7.0)
[2017-12-23 10:42] LABS: Platelet Estimate INCR
[2017-12-23 10:43] LABS: Anisocytosis 2+; Blood Morphology Comment NOTED (NOT SEEN)
--- NOTE | 2017-12-23 11:04 | RAD REPORT ---
EXAM DESCRIPTION: CTAbdomen Pelvis W Contrast - 12/23/2017 10:20 am CLINICAL HISTORY: Abdominal pain. iv only;Abd pain COMPARISON: Abdomen Pelvis W Contrast dated 12/31/2016; Abdomen Pelvis W Contrast dated 07/12/2016 TECHNIQUE: Biphasic CT imaging of the abdomen and pelvis was performed with 100 ml non-ionic IV cont rast. All CT scans are performed using dose optimization technique as appropriate and may include automated exposure control or mA/KV adjustment according to patient size. FINDINGS: The lung bases are clear. The liver, spleen, pancreas, adrenal glands and kidneys are within normal limits. No bowel obstruction, free air, free fluid or abscess. Mild with cecal mucosal thickening is present. The appendix is normal. No evidence of significant lymphadenopathy. No suspicious bony findings. IMPRESSION: Mild cecal inflammatory changes can be seen focal colitis or typhlitis.
--- NOTE | 2017-12-23 11:26 | EDPHYS ---
Physician Documentation [facility] Name: Jaye Pérez Age: 27 yrs Sex: Female : 1990 Arrival Date: 12/23/2017 Time: 07:57 Bed 8 Private MD: Diana Linton K ED Physician Richard Castro HPI: 12/23 08:39 This 27 yrs old Female presents to ER via Ambulatory with complaints of jr8 Nausea/Vomiting. 08:39 The patient presents to the emergency department with nausea, vomiting. Onset: The jr8 symptoms/episode began/occurred acutely, yesterday. Possible causes: unknown. The symptoms are aggravated by food , The symptoms are alleviated by nothing. Associated signs and symptoms: The patient has no apparent associated signs or symptoms. Severity of symptoms: At their worst the symptoms were moderate in the emergency department the symptoms are unchanged. The patient has not experienced similar symptoms in the past. The patient has not recently seen a physician. Historical: - Allergies: 08:10 Cipro (Upset stomach); aa5 - PMHx: 08:10 GERD; PUD; aa5 - PSHx: 08:10 Tonsillectomy; aa5 - Immunization history:: Adult Immunizations up to date. - Social history:: Smoking status: Patient uses tobacco products, smokes one pack cigarettes per day. - Ebola Screening: : No symptoms or risks identified at this time. ROS: 08:39 Eyes: Negative for injury, pain, redness, and discharge, ENT: Negative for injury, jr8 pain, and discharge, Neck: Negative for injury, pain, and swelling, Cardiovascular: Negative for chest pain, palpitations, and edema, Respiratory: Negative for shortness of breath, cough, wheezing, and pleuritic chest pain, Back: Negative for injury and pain, MS/Extremity: Negative for injury and deformity, Skin: Negative for injury, rash, and discoloration, Neuro: Negative for headache, weakness, numbness, tingling, and seizure. 08:39 Abdomen/GI: Positive for nausea and vomiting, Negative for abdominal pain, diarrhea, constipation, abdominal cramps, abdominal distension, anorexia, dysphagia, hematemesis, black/tarry stool, rectal pain, rectal bleeding, bowel incontinence, flatulence. Exam: 08:39 ENT: Nares patent. No nasal discharge, no septal abnormalities noted. Tympanic jr8 membranes are normal and external auditory canals are clear. Oropharynx with no redness, swelling, or masses, exudates, or evidence of obstruction, uvula midline. Mucous membranes moist. Cardiovascular: Regular rate and rhythm with a normal S1 and S2. No gallops, murmurs, or rubs. Normal PMI, no JVD. No pulse deficits. Respiratory: Lungs have equal breath sounds bilaterally, clear to auscultation and percussion. No rales, rhonchi or wheezes noted. No increased work of breathing, no retractions or nasal flaring. Back: No spinal tenderness. No costovertebral tenderness. Full range of motion. Skin: Warm, dry with normal turgor. Normal color with no rashes, no lesions, and no evidence of cellulitis. MS/ Extremity: Pulses equal, no cyanosis. Neurovascular intact. Full, normal range of motion. Neuro: Awake and alert, GCS 15, oriented to person, place, time, and situation. Cranial nerves II-XII grossly intact. Motor strength 5/5 in all extremities. Sensory grossly intact. Cerebellar exam normal. Normal gait. 08:39 Abdomen/GI: Inspection: abdomen appears normal, Bowel sounds: active, all quadrants, Palpation: soft, in all quadrants, nontender, in all quadrants, mass, is not appreciated, rebound tenderness, is not appreciated, voluntary guarding, is not appreciated, involuntary guarding, is not appreciated, no appreciated organomegaly, Indicators: McBurney's point is not tender, Wolf's sign is negative, Rovsing's sign is negative, Liver: no appreciated palpable abnormalities, tenderness, is not appreciated. Vital Signs: 08:16 Weight 81.65 kg (R); Height 5 ft. 4 in. (162.56 cm) (R); Pain 0/10; aa5 08:18 BP 121 / 77; Pulse 87; Resp 18; Temp 99; Pulse Ox 99% on R/A; ag 09:37 BP 123 / 72; Pulse 124; Resp 18; Pulse Ox 100% on R/A; hj 10:50 BP 109 / 66; Pulse 83; Resp 20; Pulse Ox 100% on R/A; aj 11:36 BP 115 / 65; Pulse 85; Resp 17; Temp 99.8(A); Pulse Ox 99% on R/A; ae1 08:16 Body Mass Index 30.90 (81.65 kg, 162.56 cm) aa5 MDM: 08:17 Patient medically screened. jr8 11:21 Data reviewed: vital signs, nurses notes, lab test result(s), radiologic studies, CT jr8 scan, and as a result, I will discharge patient. Data interpreted: Pulse oximetry: on room air is 100 %. Interpretation: normal. Counseling: I had a detailed discussion with the patient and/or guardian regarding: the historical points, exam findings, and any diagnostic results supporting the discharge/admit diagnosis, lab results, radiology results, the need for outpatient follow up, a family practitioner, a day haul or farm charter bus driver, to return to the emergency department if symptoms worsen or persist or if there are any questions or concerns that arise at home. Response to treatment: the patient's symptoms have markedly improved after treatment, patient is well hydrated. 12/23 08:35 Order name: CBC with Diff; Complete Time: 10:44 12/23 08:35 Order name: Basic Metabolic Panel; Complete Time: 09:24 jr8 12/23 09:43 Order name: CT Abd/Pelvis - W/Contrast; Complete Time: 11:15 jr8 12/23 10:08 Order name: Urine Dipstick--Ancillary (enter results); Complete Time: 10:44 eb 12/23 10:08 Order name: Urine --Ancillary (enter results); Complete Time: 10:44 eb 12/23 10:42 Order name: Manual Differential; Complete Time: 10:44 EDMS 12/23 08:35 Order name: Urine Test (obtain specimen); Complete Time: 10:12 8 12/23 08:35 Order name: Urine Dipstick-Ancillary (obtain specimen); Complete Time: 10:12 12/23 08:35 Order name: IV; Complete Time: 09:02 jr8 Administered Medications: 08:35 Drug: Phenergan 12.5 mg Route: IVP; Site: left antecubital; hj 09:52 Follow up: Response: No adverse reaction hj 08:35 Drug: NS 0.9% 1000 ml Route: IV; Rate: 1000 ml; Site: left antecubital; hj 11:50 Follow up: IV Status: Completed infusion ae1 09:43 Drug: Zofran 4 mg Route: IVP; Site: left antecubital; hj 09:52 Follow up: Response: No adverse reaction hj 09:43 Drug: Pepcid 20 mg Route: IVP; Site: left antecubital; hj 09:52 Follow up: Response: No adverse reaction hj 11:42 Drug: Augmentin 875 mg Route: PO; ae1 11:50 Follow up: Response: Medication administered at discharge. ae1 11:42 Drug: Flagyl 500 mg Route: PO; ae1 11:50 Follow up: Response: Medication administered at discharge. ae1 Disposition: 15:27 Co-signature as Attending Physician, Richard Castro MD I agree with the assessment and kdr plan of care. Disposition: 12/23/17 11:26 Discharged to Home. Impression: Typhlitis. - Condition is Stable. - Discharge Instructions: Abdominal Pain, Adult. - Prescriptions for ondansetron 4 mg Oral tablet,disintegrating - take 1 tablet by ORAL route every 6 hours As needed; 12 tablet. Augmentin 875- 125 mg Oral Tablet - take 1 tablet by ORAL route every 12 hours for 10 days; 20 tablet. Flagyl 500 mg Oral Tablet - take 1 tablet by ORAL route every 6 hours for 10 days; 40 tablet. - Medication Reconciliation Form, Thank You Letter, Antibiotic Education, Prescription Opioid Use form. - Work release form (12/23/17 11:51). jr8 - Follow up: Diana Linton MD; When: 2 - 3 days; Reason: Recheck today's complaints, Continuance of care, Re-evaluation by your physician. - Problem is new. - Symptoms have improved. Signatures: Dispatcher [employer] EDWI Richard Castro MD MD [facility] Nimo Pugh RN RN aa5 Francisco J Tan PA PA jr8 Eduard Messina RN RN Romel Draper RN RN ae1 Corrections: (The following items were deleted from the chart) 11:50 11:26 12/23/2017 11:26 Discharged to Home. Impression: Typhlitis. Condition is Stable. ae1 Forms are Medication Reconciliation Form, Thank You Letter, Antibiotic Education, Prescription Opioid Use. Follow up: Diana Linton; When: 2 - 3 days; Reason: Recheck today's complaints, Continuance of care, Re-evaluation by your physician. Problem is new. Symptoms have improved. jr8
--- NOTE | 2017-12-23 11:26 | ER ---
Nurse's Notes [facility] Name: Jaye Pérez Age: 27 yrs Sex: Female : 1990 Arrival Date: 12/23/2017 Time: 07:57 Bed 8 Private MD: Diana Linton K Diagnosis: Typhlitis Presentation: 12/23 08:10 Presenting complaint: Patient states: nausea and vomiting x 2 days ago. Pt denies abd aa5 pain. Pt states "I had diarrhea about 4 days ago but none since then". 08:10 Transition of care: patient was not received from another setting of care. Onset of aa5 symptoms was December 2017. Risk Assessment: Do you want to hurt yourself or someone else? Patient reports no desire to harm self or others. Initial Sepsis Screen: Does the patient meet any 2 criteria? No. Patient's initial sepsis screen is negative. Does the patient have a suspected source of infection? No. Patient's initial sepsis screen is negative. Care prior to arrival: None. 08:10 Method Of Arrival: Ambulatory aa5 08:10 Acuity: JEREMIAH 3 aa5 Triage Assessment: 08:30 General: Appears in no apparent distress. uncomfortable, Behavior is calm, cooperative, hj appropriate for age. Pain: Complains of pain in abdomen. GI: Reports lower abdominal pain, upper abdominal pain, nausea, vomiting. Historical: - Allergies: 08:10 Cipro (Upset stomach); aa5 - PMHx: 08:10 GERD; PUD; aa5 - PSHx: 08:10 Tonsillectomy; aa5 - Immunization history:: Adult Immunizations up to date. - Social history:: Smoking status: Patient uses tobacco products, smokes one pack cigarettes per day. - Ebola Screening: : No symptoms or risks identified at this time. Screenin:29 Abuse screen: Denies threats or abuse. Denies injuries from another. Nutritional hj screening: No deficits noted. Tuberculosis screening: No symptoms or risk factors identified. Fall Risk None identified. Assessment: 08:30 GI: Abdomen is non-distended. hj 08:30 General: Appears in no apparent distress. uncomfortable, Behavior is calm, cooperative, hj appropriate for age. Pain: Denies pain. Neuro: Level of Consciousness is awake, alert, obeys commands, Oriented to person, place, time, situation, Appropriate for age. Cardiovascular: Capillary refill < 3 seconds Patient's skin is warm and dry. Respiratory: Airway is patent Respiratory effort is even, unlabored, Respiratory pattern is regular, symmetrical. : No signs and/or symptoms were reported regarding the genitourinary system. EENT: No signs and/or symptoms were reported regarding the EENT system. Derm: No signs and/or symptoms reported regarding the dermatologic system. Musculoskeletal: No signs and/or symptoms reported regarding the musculoskeletal system. 09:37 Reassessment: Patient and/or family updated on plan of care and expected duration. Pain hj level reassessed. Patient is alert, oriented x 3, equal unlabored respirations, skin warm/dry/pink. awaiting results and POC;. 10:50 General: Appears in no apparent distress. uncomfortable, Behavior is calm, cooperative, aj appropriate for age. Neuro: Level of Consciousness is awake, alert, obeys commands, Oriented to person, place, time, situation, Appropriate for age. Respiratory: Airway is patent Respiratory effort is even, unlabored, Respiratory pattern is regular, symmetrical. GI: Abdomen is obese, Reports nausea, vomiting. Derm: Skin is intact, is healthy with good turgor, Skin is pink, warm \\T\\ dry. normal. Vital Signs: 08:16 Weight 81.65 kg (R); Height 5 ft. 4 in. (162.56 cm) (R); Pain 0/10; aa5 08:18 BP 121 / 77; Pulse 87; Resp 18; Temp 99; Pulse Ox 99% on R/A; ag 09:37 BP 123 / 72; Pulse 124; Resp 18; Pulse Ox 100% on R/A; hj 10:50 BP 109 / 66; Pulse 83; Resp 20; Pulse Ox 100% on R/A; aj 11:36 BP 115 / 65; Pulse 85; Resp 17; Temp 99.8(A); Pulse Ox 99% on R/A; ae1 08:16 Body Mass Index 30.90 (81.65 kg, 162.56 cm) aa5 ED Course: 07:57 Patient arrived in ED. sb2 07:57 Diana Linton MD is Private Physician. sb2 08:09 Arm band placed on Patient placed in an exam room, on a stretcher. aa5 08:16 Triage completed. aa5 08:17 Francisco J Tan PA is [facility]. jr8 08:17 Richard Castro MD is Attending Physician. jr8 08:18 Romel Draper, MARCIA is Primary Nurse. ae1 08:30 Initial lab(s) drawn, by co, sent to lab. Inserted saline lock: 22 gauge in left hj antecubital area, using aseptic technique. Blood collected. 08:31 Patient has correct armband on for positive identification. Placed in gown. Bed in low hj position. Call light in reach. Side rails up X 1. 08:52 Eduard Messina, RN is Primary Nurse. hj 09:50 Radiology exam delayed due to test not completed at this time. vr 10:[address] mw3 10:12 Urine collected: clean catch specimen, clear. ag 10:17 CT completed. Patient tolerated procedure well. Patient moved back from CT. mw3 10:21 CT Abd/Pelvis - W/Contrast In Process Unspecified. EDMS 10:50 Primary Nurse role handed off by Eduard Messina, MARCIA aj 10:50 Vicenta Coleman, MARCIA is Primary Nurse. aj 11:25 Diana Linton MD is Referral Physician. jr8 11:49 No provider procedures requiring assistance completed. IV discontinued, intact, ae1 bleeding controlled, Pressure dressing applied. Administered Medications: 08:35 Drug: Phenergan 12.5 mg Route: IVP; Site: left antecubital; hj 09:52 Follow up: Response: No adverse reaction hj 08:35 Drug: NS 0.9% 1000 ml Route: IV; Rate: 1000 ml; Site: left antecubital; hj 11:50 Follow up: IV Status: Completed infusion ae1 09:43 Drug: Zofran 4 mg Route: IVP; Site: left antecubital; hj 09:52 Follow up: Response: No adverse reaction hj 09:43 Drug: Pepcid 20 mg Route: IVP; Site: left antecubital; hj 09:52 Follow up: Response: No adverse reaction hj 11:42 Drug: Augmentin 875 mg Route: PO; ae1 11:50 Follow up: Response: Medication administered at discharge. ae1 11:42 Drug: Flagyl 500 mg Route: PO; ae1 11:50 Follow up: Response: Medication administered at discharge. ae1 Outcome: 11: Discharge ordered by . angela 11:49 Discharged to home ambulatory. ae1 11:49 Condition: stable 11:49 Discharge instructions given to patient, Instructed on discharge instructions, follow up and referral plans. medication usage, Demonstrated understanding of instructions, Prescriptions given X 3. 11:50 Patient left the ED. ae1 Signatures: Dispatcher [employer] EDMS Vicenta Coleman RN RN Nimo Aragon RN RN jan5 Josette Walton Josh, PA PA jr8 Mayte Charlton Henry, RN RN Romel Blakely RN RN ae1 Tatiana Zuniga sb2 Meri Ruelas mw3
[2017-12-23] MEDS ORDERED: metroNIDAZOLE 500 MG TABLET ONE (11:37)
[2017-12-23] MEDS ORDERED: AMOX/K CLAV 875 MG TAB ONE (11:37)
[2017-12-23 11:59] VITALS: BP 115/65; TEMP 99.8; O2SAT 99
== END 2017-12-23 11:50 | disposition home or self-care (01) ==
LOC: ER 07:53
DX: K37 Unspecified appendicitis (principal); F17.210 Nicotine dependence, cigarettes, uncomplicated; Z88.1 Allergy status to other antibiotic agents
CPT/HCPCS: 36415; 74177; 80048; 81003; 81025; 85025; 96361; 96374; 96375; 99284; J2405; J2550; J7030; Q9967

== ENCOUNTER 2017-12-24 06:01 | Observation (INO) | payer SELFPAY ==
--- OUTSIDE RECORDS SUMMARY | 2017-12-24 06:03 | XMS REPORT | Clinical Summary ---
:1990 Author Organization [facility] [employer] Address [address] [place] [address] Care Team Providers Name Role Phone Jae [...] Team Description 05/07/2017 Anesthesia Event General Internal [facility], Medicine Estevan Hammonds MD 05/07/2017 Procedure Pass [...] syndrome); PUD (peptic ulcer disease); Anxiety after 12/23/2016 Immunizations Name Dates Previously Given Next Due Pneumococcal Conjugate 13-Valent 05/06/2017 Social History Tobacco Use Types Packs/Day Years Used Date Never Assessed Sex Assigned at Date Recorded Not on file Last Filed Vital Signs Vital Sign Reading Time Taken Blood Pressure 108/66 05/07/2017 10:15 AM [facility] Pulse 73 05/07/2017 10:15 AM [facility] Temperature 36.8 C (98.3 F) 05/07/2017 9:45 AM [facility] Respiratory Rate 12 05/07/2017 10:15 AM [facility] Oxygen Saturation 100% 05/07/2017 10:15 AM [facility] Inhaled Oxygen Concentration - - Weight - - Height 162.6 cm (5' 4") 05/04/2017 11:45 AM [facility] Body Mass Index - - Plan of Treatment Health Maintenance Due Date Last Done Comments CERVICAL CANCER SCREENING 2010 INFLUENZA VACCINE 01/11/2018 Procedures Procedure Name Priority Date/Time Associated Comments Diagnosis SURGICAL PATHOLOGY Routine 05/07/2017 10:11 Results for this REQUEST AM [facility] procedure are in the results section. EGD WITH BIOPSY 05/07/2017 8:15 G.I BLEED AM [facility] ESTIMATED GFR Routine 05/07/2017 5:48 Results for this AM [facility] procedure are in the results section. TOTAL IRON BINDING Routine 05/07/2017 5:48 Results for this CAPACITY AM [facility] procedure are in the results section. PROTHROMBIN TIME WITH Routine 05/07/2017 5:48 Results for this INR AM [facility] procedure are in the results section. BASIC METABOLIC PANEL Routine 05/07/2017 5:48 Results for this AM [facility] procedure are in the results section. HC COMPLETE BLD COUNT Routine 05/07/2017 5:48 Results for this W/AUTO DIFF AM [facility] [facility] procedure are in the results section. ESTIMATED GFR Routine 05/06/2017 5:02 Results for this AM [facility] procedure are in the results section. COMPREHENSIVE Routine 05/06/2017 5:02 Results for this METABOLIC PANEL AM [facility] procedure are in the results section. CBC HEMOGRAM Routine 05/06/2017 5:02 Results for this AM [facility] procedure are in the results section. URINE DRUGS OF ABUSE Routine 05/05/2017 4:30 Results for this SCREEN PM [facility] procedure are in the results section. GASTRIN LEVEL Routine 05/05/2017 12:39 Results for this PM [facility] procedure are in the results section. ESTIMATED GFR Routine 05/05/2017 10:30 Results for this AM [facility] [facility] procedure are in the results section. COMPREHENSIVE Routine 05/05/2017 10:30 Results for this METABOLIC PANEL AM [facility] procedure are in the results section. HC COMPLETE BLD COUNT Routine 05/05/2017 10:30 Results for this W/AUTO DIFF AM [facility] procedure are in the results section. BLOOD CULTURE, AEROBIC Routine 05/04/2017 4:59 Results for this & ANAEROBIC PM [facility] procedure are in the results section. BLOOD CULTURE, AEROBIC Routine 05/04/2017 4:56 Results for this & ANAEROBIC PM [facility] procedure are in the results section. CT ABDOMEN PELVIS W STAT 05/04/2017 4:38 Results for this CONTRAST PM [facility] [facility] procedure are in the results section. XR CHEST 2 VW STAT 05/04/2017 2:59 Results for this PM [facility] procedure are in the results section. US GALLBLADDER STAT 05/04/2017 1:49 Results for this PM [facility] procedure are in the results section. HCG QUALITATIVE, URINE STAT 05/04/2017 12:17 Results for this SCREEN PM [facility] [facility] procedure are in the results section. URINALYSIS SCREEN AND STAT 05/04/2017 12:17 Results for this MICROSCOPY, WITH PM [facility] [facility] procedure are in REFLEX TO CULTURE the results section. URINE CULTURE STAT 05/04/2017 12:17 Results for this PM [facility] [facility] procedure are in the results section. HC COMPLETE BLD COUNT STAT 05/04/2017 11:59 Results for this W/AUTO DIFF AM [facility] [facility] procedure are in the results section. LIPASE LEVEL STAT 05/04/2017 11:48 Results for this AM [facility] [facility] procedure are in the results section. ESTIMATED GFR STAT 05/04/2017 11:48 Results for this AM [facility] procedure are in the results section. COMPREHENSIVE STAT 05/04/2017 11:48 Results for this METABOLIC PANEL AM [facility] [facility] procedure are in the results section. after 12/23/2016 Results Surgical pathology request (05/07/2017 10:11 AM) [facility] DEPARTMENT OF PATHOLOGY AND GENOMIC MEDICINE Surgical pathology report See link below for PDF [facility] DEPARTMENT OF Lab Report PATHOLOGY AND GENOMIC MEDICINE Result status This is Final Report to [facility] DEPARTMENT OF [id number] PATHOLOGY AND GENOMIC MEDICINE Performing Organization Address City/[facility] Services[facility] Phone Number [facility] DEPARTMENT OF PATHOLOGY AND [address] [place] [phone] [facility] Total iron binding capacity (05/07/2017 5:48 AM) Iron level 12 (L) 37 - 145 ug/dL [facility] DEPARTMENT OF PATHOLOGY AND GENOMIC MEDICINE Iron binding capacity 367 200 - 400 ug/dL [facility] DEPARTMENT OF PATHOLOGY AND GENOMIC MEDICINE % Saturation 3.3 (L) 15.0 - 38.0 % [facility] DEPARTMENT OF PATHOLOGY AND GENOMIC MEDICINE Specimen Plasma specimen Performing Organization Address [facility] Services[facility] Phone Number [facility] DEPARTMENT PATHOLOGY AND [address] [place] [address] [facility] Estimated GFR (05/07/2017 5:48 AM)Only the most recent of4 resultswithin the time period is included. GFR Non Af Amer >90 mL/min/1.73 m2 [facility] DEPARTMENT OF PATHOLOGY AND GENOMIC MEDICINE GFR Af Amer >90 mL/min/1.73 m2 [facility] DEPARTMENT OF Comment: PATHOLOGY AND PredicSis Chronic kidney disease: <60 mL/min/1.73m2 MEDICINE Kidney [...] Americans. Specimen Plasma specimen Performing Organization Address City/[facility] Services[facility] Phone Number [facility] DEPARTMENT OF PATHOLOGY AND [address] [place] [phone] [facility] Prothrombin time with INR (05/07/2017 5:48 AM) Prothrombin time 13.5 12.0 - 15.0 sec [facility] DEPARTMENT OF PATHOLOGY AND GENOMIC MEDICINE INR 1.0 [facility] DEPARTMENT OF Comment: PATHOLOGY AND GENOMIC The International Normalized Ratio (INR) is a therapeutic MEDICINE monitoring tool for patients who are stable on oral anticoagulant therapy. An INR of 2.0-3.0 is suggested for deep vein thrombosis/pulmonary embolism. Specimen Blood Performing Organization Address City/[facility]/Zipcode Phone Number [facility] DEPARTMENT OF PATHOLOGY AND [address] [place] [phone] GENOMIC MEDICINE CBC with platelet and differential (05/07/2017 5:48 AM)Only the most recent of3 resultswithin the time period is included. WBC 8.17 4.50 - 11.00 k/uL [facility] DEPARTMENT OF PATHOLOGY AND GENOMIC MEDICINE RBC 3.51 (L) 4.20 - 5.50 m/uL [facility] DEPARTMENT OF PATHOLOGY AND GENOMIC MEDICINE HGB 7.9 (L) 12.0 - 16.0 g/dL [facility] DEPARTMENT OF PATHOLOGY AND GENOMIC MEDICINE HCT 27.2 (L) 37.0 - 47.0 % [facility] DEPARTMENT OF PATHOLOGY AND GENOMIC MEDICINE MCV 77.5 (L) 82.0 - 100.0 fL [facility] DEPARTMENT OF PATHOLOGY AND GENOMIC MEDICINE MCH 22.5 (L) 27.0 - 34.0 pg [facility] DEPARTMENT OF PATHOLOGY AND GENOMIC MEDICINE MCHC 29.0 (L) 31.0 - 37.0 g/dL [facility] DEPARTMENT OF PATHOLOGY AND GENOMIC MEDICINE RDW - SD 48.6 37.0 - 55.0 fL [facility] DEPARTMENT OF PATHOLOGY AND GENOMIC MEDICINE MPV 10.2 8.8 - 13.2 fL [facility] DEPARTMENT OF PATHOLOGY AND GENOMIC MEDICINE Platelet count 411 (H) 150 - 400 k/uL [facility] DEPARTMENT OF PATHOLOGY AND GENOMIC MEDICINE Nucleated RBC 0.00 /100 WBC [facility] DEPARTMENT OF PATHOLOGY AND GENOMIC MEDICINE Neutrophils 53.3 39.0 - 69.0 % [facility] DEPARTMENT OF PATHOLOGY AND GENOMIC MEDICINE Lymphocytes 30.1 25.0 - 45.0 % [facility] DEPARTMENT OF PATHOLOGY AND GENOMIC MEDICINE Monocytes 10.3 (H) 0.0 - 10.0 % [facility] DEPARTMENT OF PATHOLOGY AND GENOMIC MEDICINE Eosinophils 5.6 (H) 0.0 - 5.0 % [facility] DEPARTMENT OF PATHOLOGY AND GENOMIC MEDICINE Basophils 0.6 0.0 - 1.0 % [facility] DEPARTMENT OF PATHOLOGY AND GENOMIC MEDICINE Immature granulocytes 0.1Comment: 0.0 - 1.0 % [facility] DEPARTMENT OF "Immature PATHOLOGY AND GENOMIC granulocytes" MEDICINE (promyelocytes, myelocytes, metamyelocytes) Specimen Blood Performing Organization Address City/State/Zipcode Phone Number [facility] DEPARTMENT OF PATHOLOGY AND [address] [place] [address] GENOMIC MEDICINE Basic metabolic panel (05/07/2017 5:48 AM) Sodium 137 135 - 148 mEq/L [facility] DEPARTMENT OF PATHOLOGY AND GENOMIC MEDICINE Potassium 4.2 3.5 - 5.0 mEq/L [facility] DEPARTMENT OF PATHOLOGY AND GENOMIC MEDICINE Chloride 100 98 - 112 mEq/L [facility] DEPARTMENT OF PATHOLOGY AND GENOMIC MEDICINE CO2 24 24 - 31 mEq/L [facility] DEPARTMENT OF PATHOLOGY AND GENOMIC MEDICINE Anion gap 13 7 - 15 mEq/L [facility] DEPARTMENT OF PATHOLOGY Comment: AND [facility] Starting from September , anion gap calculation no longer incorporates potassium. Please note the change. BUN 6 6 - 20 mg/dL [facility] DEPARTMENT OF PATHOLOGY AND GENOMIC MEDICINE Creatinine 0.7 0.5 - 0.9 mg/dL [facility] DEPARTMENT OF PATHOLOGY AND GENOMIC MEDICINE Glucose 93 65 - 99 mg/dL [facility] DEPARTMENT OF PATHOLOGY AND GENOMIC MEDICINE Calcium 8.8 8.3 - 10.2 mg/dL [facility] DEPARTMENT OF PATHOLOGY AND GENOMIC MEDICINE Specimen Plasma specimen Performing Organization Address City/State/Zipcode Phone Number [facility] DEPARTMENT OF PATHOLOGY [address] [address] [facility] CBC hemogram (05/06/2017 5:02 AM) WBC 8.66 4.50 - 11.00 k/uL [facility] DEPARTMENT OF PATHOLOGY AND GENOMIC MEDICINE RBC 3.28 (L) 4.20 - 5.50 m/uL [facility] DEPARTMENT OF PATHOLOGY AND GENOMIC MEDICINE HGB 7.6 (L) 12.0 - 16.0 g/dL [facility] DEPARTMENT OF PATHOLOGY AND GENOMIC MEDICINE HCT 25.6 (L) 37.0 - 47.0 % [facility] DEPARTMENT OF PATHOLOGY AND GENOMIC MEDICINE MCV 78.0 (L) 82.0 - 100.0 fL [facility] DEPARTMENT OF PATHOLOGY AND GENOMIC MEDICINE MCH 23.2 (L) 27.0 - 34.0 pg [facility] DEPARTMENT OF PATHOLOGY AND GENOMIC MEDICINE MCHC 29.7 (L) 31.0 - 37.0 g/dL [facility] DEPARTMENT OF PATHOLOGY AND GENOMIC MEDICINE RDW - SD 49.4 37.0 - 55.0 fL [facility] DEPARTMENT OF PATHOLOGY AND GENOMIC MEDICINE MPV 9.9 8.8 - 13.2 fL [facility] DEPARTMENT OF PATHOLOGY AND GENOMIC MEDICINE Platelet count 390 150 - 400 k/uL [facility] DEPARTMENT OF PATHOLOGY AND GENOMIC MEDICINE Nucleated RBC 0.20 /100 WBC [facility] DEPARTMENT OF PATHOLOGY AND GENOMIC MEDICINE Specimen Blood Performing Organization Address City/[facility] Services[facility] Phone Number [facility] DEPARTMENT OF PATH[place] [address] GENOMIC MEDICINE Comprehensive metabolic panel (05/06/2017 5:02 AM)Only the most recent of3 resultswithin the time period is included. Sodium 136 135 - 148 mEq/L [facility] DEPARTMENT OF PATHOLOGY AND GENOMIC MEDICINE Potassium 4.1 3.5 - 5.0 mEq/L [facility] DEPARTMENT OF PATHOLOGY AND GENOMIC MEDICINE Chloride 100 98 - 112 mEq/L [facility] DEPARTMENT OF PATHOLOGY AND GENOMIC MEDICINE CO2 23 (L) 24 - 31 mEq/L [facility] DEPARTMENT OF PATHOLOGY AND GENOMIC MEDICINE Anion gap 13 7 - 15 mEq/L [facility] DEPARTMENT OF Comment: PATHOLOGY AND GENOMIC Starting from September , anion gap calculation MEDICINE no longer incorporates potassium. Please note the change. BUN 7 6 - 20 mg/dL [facility] DEPARTMENT OF PATHOLOGY AND GENOMIC MEDICINE Creatinine 0.7 0.5 - 0.9 mg/dL [facility] DEPARTMENT OF PATHOLOGY AND GENOMIC MEDICINE Glucose 90 65 - 99 mg/dL [facility] DEPARTMENT OF PATHOLOGY AND GENOMIC MEDICINE Calcium 8.4 8.3 - 10.2 mg/dL [facility] DEPARTMENT OF PATHOLOGY AND GENOMIC MEDICINE Protein 6.1 (L) 6.3 - 8.3 g/dL [facility] DEPARTMENT OF Comment: PATHOLOGY AND GENOMIC [place] 4.6-7.0 g/dL MEDICINE 1 week 4.4-7.6 g/dL 7 months-1year5.1-7.3 g/dL 1-2 years5.6-7.5 g/dL >3 years6.0-8.0 g/dL 18-150 6.3-8.3 g/dL Albumin 2.9 (L) 3.5 - 5.0 g/dL [facility] DEPARTMENT OF PATHOLOGY AND GENOMIC MEDICINE A/G ratio 0.9 0.7 - 3.8 [facility] DEPARTMENT OF PATHOLOGY AND GENOMIC MEDICINE Alkaline phosphatase 58 35 - 104 U/L [facility] DEPARTMENT OF PATHOLOGY AND GENOMIC MEDICINE AST 17 10 - 35 U/L [facility] DEPARTMENT OF PATHOLOGY AND GENOMIC MEDICINE ALT 16 5 - 50 U/L [facility] DEPARTMENT OF PATHOLOGY AND GENOMIC MEDICINE Total bilirubin <0.2 0.0 - 1.2 mg/dL [facility] DEPARTMENT OF PATHOLOGY AND GENOMIC MEDICINE Specimen Plasma specimen Performing Organization Address City/State/Zipcode Phone Number [facility] DEPARTMENT OF PATHOLOGY AND [address] [place] [phone] [facility] Urine drugs of abuse screen (05/05/2017 4:30 PM) Amphetamine screen, urine Negative [facility] DEPARTMENT OF PATHOLOGY AND GENOMIC MEDICINE Barbiturate screen, urine Negative [facility] DEPARTMENT OF PATHOLOGY AND GENOMIC MEDICINE Benzodiazepine screen, Negative [facility] DEPARTMENT OF urine PATHOLOGY AND GENOMIC MEDICINE Cannabinoid screen, urine Positive (A) [facility] DEPARTMENT OF PATHOLOGY AND GENOMIC MEDICINE Cocaine screen, urine Negative [facility] DEPARTMENT OF PATHOLOGY AND GENOMIC MEDICINE Methadone metabolite Negative [facility] DEPARTMENT OF (EDDP), urine PATHOLOGY AND GENOMIC MEDICINE Opiates screen, urine Positive (A) [facility] DEPARTMENT OF PATHOLOGY AND GENOMIC MEDICINE Oxycodone screen, urine Negative [facility] DEPARTMENT OF PATHOLOGY AND GENOMIC MEDICINE Phencyclidine screen, urine Negative [facility] DEPARTMENT OF PATHOLOGY AND GENOMIC MEDICINE Tricyclic screen, urine Negative [facility] DEPARTMENT OF Comment: PATHOLOGY AND GENOMIC Drug screen minimum concentration of detectability MEDICINE Tuhfuenpktnb9026 ng/mL Barbiturates 200 ng/mL Zolgvfzrutrfsjr579 ng/mL Wldbebz479 ng/mL Wykjzwneg794 ng/mL Xvmpbdh325 ng/mL Upcyttkgf113 ng/mL Phencyclidine 25 ng/mL Qkvomjqfkukb90 ng/mL Mkjmhsniqo5315 ng/mL Negative test results indicates presumptive evidence of lack of clinically significant drug concentration in this urine specimen. Positive test results are presumptive evidence of clinically significant drug concentration in this urine specimen. Testing performed for medical purposes only. Specimen Urine Performing Organization Address City/[facility] Services[facility] Phone Number [facility] DEPARTMENT OF [facility] AND [address] [place] [phone] [facility] MEDICINE Gastrin level (05/05/2017 12:39 PM) Gastrin 136 (H) 0 - 100 pg/mL [facility] Comment: Performed by [employer], [address], [place] [id number] [email or web address], Tai Paz MD - Lab. Director Specimen Serum Performing Organization Address City/[facility]/Zipcode Phone Number [facility] [address] [place] [address] Blood culture, aerobic & anaerobic (05/04/2017 4:59 PM)Only the most recent of2 resultswithin the time period is included. Blood culture isolate No growth after 5 days of incubation. [facility] DEPARTMENT OF Comment: PATHOLOGY AND GENOMIC Specimen Information MEDICINE Specimen Source: Blood Specimen Site: Wrist, left Specimen Blood - Wrist, left Performing Organization Address [facility] Phone Number [facility] DEPARTMENT OF PATHOLOGY AND [address] [place] [address] Abdomen Pelvis W Contrast [...] in the pelvis. IMPRESSION: No acute abnormality. [facility]-[id number] Procedure Note [facility], Radiology Results Incoming - 05/04/2017 4:46 PM [facility] [facility] EXAMINATION: CT ABDOMEN PELVIS W CONTRAST CLINICAL [...] in the pelvis. IMPRESSION: No acute abnormality. [id number] Performing Organization Address [facility]/Zipcode Phone Number [facility] [address] [place] [address] XR Chest 2 Vw (05/04/2017 2:59 PM) Narrative Performed At EXAMINATION:XR CHEST 2 VW [facility] CLINICAL HISTORY:Pneumonia COMPARISON:None. IMPRESSION: Frontal and lateral views reveal a normal cardiomediastinal silhouette. Lungs are clear. Pleural margins are sharp. The remainder of the examination is unremarkable. [facility]-[id number] Procedure Note [facility], Radiology Results Incoming - 05/04/2017 3:04 PM [facility] [facility] EXAMINATION: XR CHEST 2 VW CLINICAL HISTORY: Pneumonia COMPARISON: None. IMPRESSION: Frontal and lateral views reveal a normal cardiomediastinal silhouette. Lungs are clear. Pleural margins are sharp. The remainder of the examination is unremarkable. [facility]-[id number] Performing Organization Address [facility] Phone Number [facility] [address] [place] [address] [place] Gallbladder (05/04/2017 1:49 PM) Narrative Performed At EXAMINATION:US GALLBLADDER [facility] CLINICAL HISTORY:Cholecystitis COMPARISON:Gallbladder ultrasound from 01/18/2012 [...] within the portal vein measures 45 cm/s. [facility]-[id number] Procedure Note Interface, Radiology Results Incoming - 05/04/2017 1:55 PM [facility] [facility] EXAMINATION: US GALLBLADDER CLINICAL HISTORY:Cholecystitis COMPARISON: Gallbladder [...] within the portal vein measures 45 cm/s. [facility]-[id number] Performing Organization Address [facility]/Zipcoal Phone Number [facility] [address] [place] [address] Urinalysis screen and microscopy, with reflex to culture (05/04/2017 12:17 PM) Specimen site Clean catch [facility] DEPARTMENT OF PATHOLOGY AND GENOMIC MEDICINE Color, UA Straw [facility] DEPARTMENT OF PATHOLOGY AND GENOMIC MEDICINE Appearance, UA Clear [facility] DEPARTMENT OF PATHOLOGY AND GENOMIC MEDICINE Specific gravity, UA 1.014 1.001 - 1.035 [facility] DEPARTMENT OF PATHOLOGY AND GENOMIC MEDICINE pH, UA 6.0 5.0 - 8.5 [facility] DEPARTMENT OF PATHOLOGY AND GENOMIC MEDICINE Protein, UA Negative Negative [facility] DEPARTMENT OF PATHOLOGY AND GENOMIC MEDICINE Glucose, UA Negative Negative [facility] DEPARTMENT OF PATHOLOGY AND GENOMIC MEDICINE Ketones, UA 1+ (A) Negative [facility] DEPARTMENT OF PATHOLOGY AND GENOMIC MEDICINE Bilirubin, UA Negative Negative [facility] DEPARTMENT OF PATHOLOGY AND GENOMIC MEDICINE Blood, UA Negative Negative [facility] DEPARTMENT OF PATHOLOGY AND GENOMIC MEDICINE Nitrite, UA Negative Negative [facility] DEPARTMENT OF PATHOLOGY AND GENOMIC MEDICINE Urobilinogen, UA <2.0 <2.0 [facility] DEPARTMENT OF PATHOLOGY AND GENOMIC MEDICINE Leukocyte esterase, UA Negative Negative [facility] DEPARTMENT OF PATHOLOGY AND GENOMIC MEDICINE Epithelial cells, UA 7 /HPF [facility] DEPARTMENT OF PATHOLOGY AND GENOMIC MEDICINE WBC, UA 1 0 - 4 /HPF [facility] DEPARTMENT OF PATHOLOGY AND GENOMIC MEDICINE RBC, UA 1 0 - 2 /HPF [facility] DEPARTMENT OF PATHOLOGY AND GENOMIC MEDICINE Bacteria, UA Few None seen [facility] DEPARTMENT OF PATHOLOGY AND GENOMIC MEDICINE Yeast, UA None seen [facility] DEPARTMENT OF PATHOLOGY AND GENOMIC MEDICINE Yeast with pseudohyphae, UA None seen [facility] DEPARTMENT OF PATHOLOGY AND GENOMIC MEDICINE Specimen Urine Performing Organization Address City/[facility] Phone Number [facility] DEPARTMENT OF PATHOLOGY AND [address] [place], [place] [phone] [facility] hCG qualitative, urine screen (05/04/2017 12:17 PM) hCG qualitative, urine NegativeComment: [facility] DEPARTMENT OF Sensitivity of HCG test: 25 PATHOLOGY AND GENOMIC mIU/mL MEDICINE Specimen Urine Performing Organization Address City/[facility] Services[facility] Phone Number [facility] DEPARTMENT OF PATHOLOGY AND [address] [place] [phone] [facility] Urine culture (05/04/2017 12:17 PM) Urine culture SEE COMMENTComment: Bacteriuria [facility] DEPARTMENT OF PATHOLOGY screen negative. AND GENOMIC MEDICINE Performing Organization Address City/[facility]/Zipcode Phone Number [facility] DEPARTMENT OF PATHOLOGY AND [address] [place] [phone] [facility] Lipase level (05/04/2017 11:48 AM) Lipase 35 13 - 60 [facility] DEPARTMENT OF PATHOLOGY AND GENOMIC MEDICINE Specimen Plasma specimen Performing Organization Address City/[facility]/Zipcode Phone Number [facility] DEPARTMENT OF PATHOLOGY AND [address] [place] [id number] [facility] after 12/23/2016 Insurance Payer Benefit Plan / Group Subscriber ID Type Phone Address BCBS BCBS CHOICE PPO/FEDERAL EMPL PPO xxxxxxxxxxxx PPO
--- OUTSIDE RECORDS SUMMARY | 2017-12-24 06:06 | XMS REPORT | Continuity of Care Document ---
:1990 Author Organization Interface Problems Problem Status Onset Classification Date Comments Source Date Reported Discharge 04/14/2016 [facility] Diagnosis: 6 Abdominal pain, acute, epigastric INTRACTABLE Active [facility] VOMITING 6 [place] ABDOMINAL PAIN Active [facility] 6 Eb INTRATABLE ABD Active [facility] PAIN,VOMITING,DE 6 [place] HYDRATION VOMITING Active [facility] 6 Eb Discharge 12/24/2015 [facility] Diagnosis: 6 Leukocytosis Discharge 12/24/2015 [facility] Diagnosis: 6 Abdominal pain VOMITING/STOMACH Active [facility] PAIN 6 [place] Gastric ulcer Active Problem 04/14/2016 [facility] CYCLICAL Active [facility] VOMITING, Eb INTRACTABLE Medications Medication Details Route Status Patient Ordering Order Source Instructions Provider Date Sucralfate 100 1 gm=10 mL, Active 04/11/ MH MG/ML Oral PO, QID, # 2016 [facility] Suspension 1200 mL, 0 [Carafate] Refill(s), Pharmacy: [facility] 462 dicyclomine 20 20 mg=1 tab, Active 30/ MH mg oral tablet PO, QID, # 56 2016 [place] tab, 1 Refill(s), Pharmacy: [facility] 462 gabapentin 300 300 mg=1 cap, Active 10/30/ MH MG Oral Capsule PO, TID, # 30 2015 [place] [Neurontin] cap, 1 Refill(s), Pharmacy: [facility] 462 Protonix 40 mg, Route: No Longer IVP, Drug Active 2015 [facility] form: INJ, BID-Meals, Dosing Weight 88.636, kg, Start date: 04/10/16 8:00:00 CDT, Duration: 30 day, Stop date: 05/09/16 17:00:00 CSTNotes: For IV push reconstitute with 10 ml 0.9% sodium chloride and push over 2 minutes. (Same as: Protonix) Bentyl 20 mg, 1 tab, No Longer Route: PO, Active 2015 [facility] Drug form: TAB, QID, Dosing Weight 88.636, kg, Start date: 04/09/16 21:00:00 CDT, Duration: 30 day, Stop date: 05/09/16 17:00:00 CSTNotes: (Same as: Bentyl) Sucralfate 100 1 gm, 10 mL, No Longer MG/ML Oral Route: PO, Active 2015 [facility] Suspension Drug form: [Carafate] SUSP, QID-Before Meals, [...] mL, No Longer Route: IVP, Active 2015 [facility] Drug form: INJ, Q6H, Dosing Weight 88.636, kg, Start date: 04/09/16 18:00:00 CDT, Duration: 30 day, Stop date: 05/09/16 12:00:00 CSTNotes: (Same as: Reglan) Acetaminophen 650 mg, 2 tab, No Longer Route: PO, Active 2015 [facility] Drug form: TAB, Q4H, Dosing Weight 88.636, kg, PRN Pain 1-3/Temp > 100.4 F, Start date: 04/09/16 17:41:00 CDT, Duration: 30 day, Stop date: 05/09/16 17:40:00 CSTNotes: Do not exceed 4 gm/day. (Same as: Tylenol) pantoprazole 40 mg, 1 tab, Inactive Route: PO, 2015 [facility] Drug form: ECTAB, BID-Before Meals, Dosing Weight 88.636, kg, Start date: 04/09/16 16:30:00 CDT, Duration: 30 day, Stop date: 05/09/16 7:30:00 CSTNotes: Tablet should not be chewed or crushed. (Same as: Protonix) Sucralfate 100 1 gm, 10 mL, Inactive MG/ML Oral Route: PO, 2015 [facility] Suspension Drug form: [Carafate] SUSP, QID, Dosing [...] MG Oral Capsule Route: PO, Active 2015 [facility] [Neurontin] Drug form: CAP, TID, Dosing Weight 88.636, kg, Start date: 04/09/16 13:00:00 CDT, Duration: 30 day, Stop date: 05/09/16 9:00:00 CSTNotes: (Same as: Neurontin) Zofran ODT 4 mg, 1 tab, No Longer Route: PO, Active 2015 [facility] Drug form: TABDIS, BID, Dosing Weight 88.636, kg, PRN Nausea & Vomiting, Start date: 04/09/16 10:58:00 CDT, Duration: 30 day, Stop date: 05/09/16 10:57:00 CSTNotes: (Same as: Zofran ODT) influenza virus 0.5 mL, Route: Inactive vaccine, IM, Drug Form: 2015 [facility] inactivated SUSP, Daily, Start date: 04/09/16 9:00:00 [...] tab, No Longer Route: PO, Active 2015 [facility] Drug form: ECTAB, Before Breakfast, Dosing Weight 88.636, kg, Start date: 04/09/16 7:30:00 CDT, Duration: 30 day, Stop date: 05/08/16 7:30:00 CSTNotes: Tablet should not be chewed or crushed. (Same as: Protonix) pantoprazole 40 mg, Route: Inactive IVP, Drug 2015 [facility] form: INJ, Before Breakfast, Dosing Weight 88.636, kg, Start date: 04/09/16 7:30:00 CDT, Duration: 30 day, Stop date: 05/08/16 7:30:00 CSTNotes: For IV push reconstitute with 10 ml 0.9% sodium chloride and push over 2 minutes. (Same as: Protonix) Protonix 40 mg, Route: Inactive IV, Drug form: 2015 [facility] INJ, ONCE, Dosing Weight 88.636, kg, Start date: 04/09/16 4:43:00 CDT, Stop date: 04/09/16 4:43:00 CDTNotes: For IV push reconstitute with 10 ml 0.9% sodium chloride and push over 2 minutes. (Same as: Protonix) Phenergan 25 mg, 2 tab, No Longer Route: PO, Active 2015 [facility] Drug form: TAB, Q6H, Dosing Weight 88.636, kg, PRN Nausea & Vomiting, Start date: 04/08/16 19:28:00 CDT, Stop date: 05/08/16 19:27:00 CSTNotes: (Same as: Phenergan) Zofran 4 mg, 2 mL, No Longer Route: IVP, Active 2015 [facility] Drug form: INJ, Q8H, Dosing Weight 88.636, kg, PRN Nausea, Start date: 04/08/16 19:28:00 CDT, Duration: 30 day, Stop date: 05/08/16 19:27:00 CSTNotes: (Same as: Zofran) MEDICATION WASTE Product Size: 4 mg Product Wasted: ___ mg Morphine 2 mg, 1 mL, No Longer Route: IVP, Active 2015 [facility] Drug form: INJ, Q2H, Dosing Weight 88.636, kg, PRN Pain Score 7-10, Start date: 04/08/16 19:27:00 CDT, Duration: 30 day, Stop date: 05/08/16 19:26:00 CSTNotes: (Same as:MORPhine Sulfate) Ibuprofen 600 mg, 1 tab, Inactive Route: PO, 2015 [facility] Drug form: TAB, TID, Dosing Weight 88.636, kg, Start date: 04/08/16 18:20:00 CDT, Duration: 30 day, Stop date: 05/08/16 17:00:00 CSTNotes: (Same as: Motrin) "Do Not Crush" Take with food. Saline Flush 10 ml, Route: No Longer 0.9% IVP, Drug Active 2015 [facility] Form: INJ, Dosing Weight 88.636, kg, PRN, PRN Line Flush, Start date: 04/08/16 16:35:00 CDT, Duration: 30 day, Stop date: 05/08/16 15:34:00 CSTNotes: (Same as: BD Posiflush) Sodium Chloride 1,000 mL, No Longer 0.154 MEQ/ML Rate: 125 Active 2015 [facility] Injectable ml/hr, Infuse Solution over: 8 hr, Route: IV, Dosing Weight 88.636 kg, Total Volume: 1,000, Start date: 04/08/16 16:35:00 CDT, Duration: 30 day, Stop date: 05/08/16 16:34:00 [employer] Ondansetron 4 mg, 2 mL, No Longer Route: IVP, Active 2015 [facility] Drug form: INJ, Q6H, Dosing Weight 88.636, kg, PRN Nausea & Vomiting, Start date: 04/08/16 16:35:00 CDT, Duration: 30 day, Stop date: 05/08/16 16:34:00 CSTNotes: (Same as: Zofran) MEDICATION WASTE Product Size: 4 mg Product Wasted: ___ mg Zofran 4 mg, Route: Inactive IVP, Drug 2015 [place] form: INJ, ONCE, Dosing Weight 88.636, kg, Priority: STAT, Start date: 04/08/16 15:22:00 CDT, Stop date: 04/08/16 15:22:00 CDT gabapentin 300 300 mg=1 cap, No Longer MG Oral Capsule PO, TID, # 30 Active 2015 [facility] [Neurontin] cap, 1 Refill(s) Promethazine 25 mg=1 supp, No Longer Hydrochloride 25 AR, Q6H, PRN Active 2015 [facility] MG Rectal Nausea & Suppository Vomiting, X 3 [Phenergan] day, # 12 supp, 0 Refill(s) Ondansetron 4 MG 4 mg=1 tab, No Longer Disintegrating PO, BID, PRN Active 2015 [facility] Tablet [Zofran] Nausea and Vomiting, Dissolve tab under tongue, X 5 day, # 10 tab, 0 Refill(s) pantoprazole 40 mg, Route: Inactive IVP, Drug 2015 [facility] form: INJ, ONCE, Dosing Weight 88.636, kg, For IV push reconstitute with 10 ml 0.9% sodium chloride and push over at least 3 minutes, Priority: STAT, Start date: 04/08/16 11:05:00 CDT, Stop date: 04/08/16 11:05:00 CDTNotes: (Same as: Protonix) Metoclopramide 10 mg, 2 mL, Inactive Route: IVP, 2015 [facility] Drug form: INJ, ONCE, Dosing Weight 88.636, kg, Priority: STAT, Start date: 04/08/16 11:05:00 CDT, Stop date: 04/08/16 11:05:00 CDTNotes: (Same as: Reglan) Saline Flush 10 mL, Route: Inactive 0.9% IVP, Drug 2015 [place] Form: INJ, Dosing Weight 88.636, kg, PRN, PRN Line Flush, Start date: 04/08/16 11:05:00 CDT, Duration: 30 day, Stop date: 05/08/16 10:04:00 CSTNotes: (Same as: BD Posiflush) Sodium Chloride 1,000 mL, Inactive 0.154 MEQ/ML 2,000 ml/hr, 2015 [place] Injectable Infuse Over: Solution 30 minutes, Route: IV, 1,000, Drug form: INJ, ONCE, Priority: STAT, Dosing Weight 88.636 kg, Start date: 04/08/16 11:05:00 CDT, Duration: 1 doses or times, Stop date: 04/08/16 11:05:00 CDT Hydromorphone 1 mg, 1 mL, Inactive Route: IVP, 2015 [facility] Drug form: INJ, ONCE, Dosing Weight 88.636, kg, Priority: STAT, Start date: 04/08/16 11:05:00 CDT, Stop date: 04/08/16 11:05:00 CDTNotes: Same as: Dilaudid Remove old Remove old Inactive Nicotine patch Nicotine patch 2015 [place] before applying before Q24H applying Q24H, ONCE, Drug form: MISC, Route: N/A, Daily, 12/24/15 21:00:00 CDT, Duration: 30 day, Stop date: 01/23/16 9:00:00 CDT Sucralfate 100 1 gm=10 mL, Active MG/ML Oral PO, QID, # 2016 [place] Suspension 1200 mL, 0 [Carafate] Refill(s), Pharmacy: [facility] [id number] [facility] pantoprazole 40 40 mg=1 tab, Active mg oral enteric PO, BID-Before 2015 [place] coated tablet Meals, # 60 tab, 0 Refill(s), Pharmacy: [facility] [id number] [place] [facility] Protonix 40 mg, 1 tab, Inactive Route: PO, 2015 [facility] Drug form: ECTAB, BID-Before Meals, Dosing Weight 86.364, kg, Start date: 12/24/15 16:30:00 CDT, Duration: 30 day, Stop date: 01/23/16 7:30:00 CDTNotes: Tablet should not be chewed or crushed. (Same as: Protonix) potassium 20 mEq, 1 tab, Inactive chloride Route: PO, 2015 [facility] Drug form: ERTAB, ONCE, Dosing Weight 86.364, kg, Start date: 12/24/15 9:52:00 CDT, Stop date: 12/24/15 9:52:00 CDTNotes: (Same as: K-Dur 20) "Do Not Crush" With food and full glass of water Tylenol 650 mg, 2 tab, No Longer Route: PO, Active 2015 [facility] Drug form: TAB, Q6H, Dosing Weight 86.364, kg, PRN Pain 1-3/Temp > 100.4 F, Start date: 12/23/15 22:53:00 CDT, Duration: 30 day, Stop date: 01/22/16 22:52:00 CDTNotes: Do not exceed 4 gm/day. (Same as: Tylenol) Nicotine 21 mg, 1 No Longer patch, Route: Active 2015 [facility] TOP, Drug form: ERFILM, Daily, Dosing Weight 86.364, kg, Start date: 12/23/15 19:42:00 CDT, Duration: 30 day, Stop date: 01/22/16 9:00:00 CDTNotes: (Same as: Habitrol) "Remove old patch before application of new patch" WASTE: F/P - P Waste Black; E - P Waste Black Sucralfate 100 1 gm, 10 mL, No Longer MG/ML Oral Route: PO, Active 2015 [facility] Suspension Drug form: [Carafate] SUSP, QID, Dosing Weight 86.364, kg, Start date: 12/23/15 13:00:00 CDT, Duration: 30 day, Stop date: 01/22/16 9:00:00 CDTNotes: Enteral feeds may interfere with the absorption of this medication. Shake well. Take 1 hr before or 2 hrs after antacids, dairy pdt, minerals & meals. (Same As: Carafate) Sodium Chloride 1,000 mL, Inactive 0.154 MEQ/ML Rate: 2015 [facility] Injectable ml/hr, Infuse Solution over: 50 hr, Route: IV, Dosing Weight 86.364 kg, Total Volume: 1,000, Start date: 12/23/15 12:54:00 CDT, Duration: 2 hr, Stop date: 12/23/15 14:53:00 CDT Protonix + 80 mg, Route: No Longer sodium chloride IVP, ONCE, Active 2015 [place] 0.9% 10 ml INJ Start date: (PF) [...] 40 mg, Route: Inactive IVP, Drug 2015 [facility] form: INJ, Daily, Dosing Weight 88.636, kg, Patient is NPO, Start date: 12/22/15 9:00:00 CDT, Duration: 30 day, Stop date: 01/20/16 9:00:00 CDTNotes: Same as: Protonix) Flagyl 500 mg, 100 No Longer mL, Route: Active 2015 [facility] IVPB, Drug form: INJ, [id number], Dosing Weight 88.636, kg, Start date: 12/21/15 21:00:00 CDT, Duration: 30 day, Stop date: 01/20/16 13:00:00 CDTNotes: (Same as: Flagyl) Avoid alcohol. Ciprofloxacin 400 mg, 200 No Longer mL, Route: Active 2015 [facility] IVPB, Drug form: INJ, [id number], Dosing Weight 88.636, kg, Start date: 12/21/15 21:00:00 CDT, Duration: 30 day, Stop date: 01/20/16 9:00:00 CDTNotes: Do not refrigerate Phenergan 12.5 mg, 0.5 No Longer mL, Route: Active 2015 [facility] IVPB, Q4H, Dosing Weight 88.636, kg, PRN Nausea & Vomiting, Start date: 12/21/15 20:22:00 CDT, Duration: 30 day, Stop date: 01/20/16 20:21:00 CDTNotes: (Same as: Phenergan) Sodium Chloride 1,000 mL, No Longer 0.154 MEQ/ML Rate: 125 Active 2015 [facility] Injectable ml/hr, Infuse Solution over: 8 hr, Route: IV, Dosing Weight 88.636 kg, Total Volume: 1,000, Start date: 12/21/15 20:22:00 CDT, Duration: 30 day, Stop date: 01/20/16 20:21:00 CDT Saline Flush 10 ml, Route: No Longer 0.9% IVP, Drug Active 2015 [place] Form: INJ, Dosing Weight 88.636, kg, PRN, PRN Line Flush, Start date: 12/21/15 20:22:00 CDT, Duration: 30 day, Stop date: 01/20/16 20:21:00 CDTNotes: (Same as: BD Posiflush) Ondansetron 4 mg, 2 mL, No Longer Route: IVP, Active 2015 [facility] Drug form: INJ, Q6H, Dosing Weight 88.636, kg, PRN Nausea & Vomiting, Start date: 12/21/15 20:22:00 CDT, Duration: 30 day, Stop date: 01/20/16 20:21:00 CDTNotes: (Same as: Zofran) MEDICATION WASTE Product Size: 4 mg Product Wasted: ___ mg Morphine 4 mg, 1 mL, No Longer Route: IVP, Active 2015 [facility] Drug form: INJ, Q4H, Dosing Weight 88.636, kg, PRN Pain Score 7-10, Start date: 12/21/15 20:22:00 CDT, Duration: 30 day, Stop date: 01/20/16 20:21:00 CDTNotes: (Same as:MORPhine Sulfate) Morphine 4 mg, 1 mL, Inactive Route: IVP, 2015 [facility] Drug form: INJ, ONCE, Dosing Weight 88.636, kg, Priority: STAT, Start date: 12/21/15 17:05:00 CDT, Stop date: 12/21/15 17:05:00 CDTNotes: (Same as:MORPhine Sulfate) Morphine 4 mg, 1 mL, Inactive Route: IVP, 2015 [facility] Drug form: INJ, ONCE, Dosing Weight 88.636, kg, Priority: STAT, Start date: 12/21/15 16:04:00 CDT, Stop date: 12/21/15 16:04:00 CDTNotes: (Same as:MORPhine Sulfate) Promethazine 25 mg, 1 mL, Inactive Route: IVPB, 2015 [facility] ONCE, Dosing Weight 88.636, kg, Priority: STAT, Start date: 12/21/15 16:04:00 CDT, Stop date: 12/21/15 16:04:00 CDTNotes: (Same as: Phenergan) Saline Flush 10 mL, Route: No Longer 0.9% IVP, Drug Active 2015 [facility] Form: INJ, Dosing Weight 88.636, kg, PRN, PRN Line Flush, Start date: 12/21/15 16:04:00 CDT, Duration: 30 day, Stop date: 01/20/16 16:03:00 CDTNotes: (Same as: BD Posiflush) Sodium Chloride 1,000 mL, Inactive 0.154 MEQ/ML 2,000 ml/hr, 2015 [facility] Injectable Infuse Over: Solution 30 minutes, Route: IV, 1,000, Drug form: INJ, ONCE, Priority: STAT, Dosing Weight 88.636 kg, Start date: 12/21/15 16:04:00 CDT, Duration: 1 doses or times, Stop date: 12/21/15 16:04:00 CDT Ondansetron 4 MG 4 mg=1 tab, On Hold Oral Tablet PO, BID, X 5 2015 [facility] [Zofran] day, # 10 tab, 0 Refill(s) Acetaminophen 1 - 2 tab, PO, No Longer 300 MG / Codeine Q4H, PRN Pain, Active 2015 [facility] Phosphate 30 MG X 2 day, # 20 Oral Tablet tab, 0 [Tylenol with Refill(s) Codeine #3] Bentyl 20 mg, 2 mL, Inactive Route: IM, 2015 [facility] Drug form: INJ, ONCE, Dosing Weight 87.727, kg, Start date: 12/20/15 22:35:00 CDT, Stop date: 12/20/15 22:35:00 CDTNotes: (Same as: Bentyl) Reglan 10 mg, 2 mL, Inactive Route: IVP, 2015 [facility] Drug form: INJ, ONCE, Dosing Weight 87.727, kg, Priority: STAT, Start date: 12/20/15 22:35:00 CDT, Stop date: 12/20/15 22:35:00 CDTNotes: (Same as: Reglan) GI cocktail 30 mL, Route: Inactive PO, Drug Form: 2015 [facility] SUSP, Dosing Weight 87.727, kg, ONCE, STAT, Start date: 12/20/15 21:27:00 CDT, Stop date: 12/20/15 21:27:00 CDTNotes: G.I. Cocktail=antac id with simethicone 22.5 mL - lidocaine viscous 7.5 mL Morphine 4 mg, Route: Inactive IVP, Drug 2015 [facility] form: INJ, ONCE, Dosing Weight 87.727, kg, Priority: STAT, Start date: 12/20/15 19:36:00 CDT, Stop date: 12/20/15 19:36:00 CDT Ondansetron 4 mg, 2 mL, Inactive Route: IVP, 2016 [facility] Drug form: INJ, ONCE, Dosing Weight 87.727, kg, Priority: STAT, Start date: 12/20/15 18:37:00 CDT, Stop date: 12/20/15 18:37:00 CDTNotes: (Same as: Barrera) MEDICATION WASTE Product Size: 4 mg Product Wasted: ___ mg Sodium Chloride 1,000 mL, Inactive 0.154 MEQ/ML 2,000 ml/hr, 2015 [facility] Injectable Infuse Over: Solution 30 minutes, Route: IV, 1,000, Drug form: INJ, ONCE, Priority: STAT, Dosing Weight 87.727 kg, Start date: 12/20/15 18:37:00 CDT, Duration: 1 doses or times, Stop date: 12/20/15 18:37:00 CDT Saline Flush 10 mL, Route: No Longer 0.9% IVP, Drug Active 2015 [facility] Form: INJ, Dosing Weight 87.727, kg, PRN, PRN Line Flush, Start date: 12/20/15 18:37:00 CDT, Duration: 30 day, Stop date: 01/19/16 18:36:00 CDTNotes: (Same as: BD Posiflush) Allergies, Adverse Reactions, Alerts Substance Category Reaction Severity Reaction Status Date Comments Source type Reported NKDA Assertion Drug Active allergy [facility] Immunizations Immunization Date Given Site Status Last Updated Comments Source influenza virus 04/11/2016 Not Given [facility] vaccine, inactivated Results Order Name Results Value Reference Date Interpretation Comments Source Range ELECTROLYTE AGAP 9.9 meq/L 10.0 - 10 S 20.0 [facility] ELECTROLYTE Sodium Lvl 141 meq/L 135 - 145 04/11 MH S /2015 [facility] ELECTROLYTE Potassium 3.9 meq/L 3.5 - 5.1 04/11 S Lvl /2015 [facility] ELECTROLYTE eGFR 121 04/11 Result Comment: The [...] is not recommended in the following populations: [address] Individuals with unstable creatinine concentrations, including [...] 105 meq/L 95 - 109 04/11 S [facility] ELECTROLYTE Calcium Lvl 7.8 mg/dL 8.5 - 10.5 04/11 [facility] ELECTROLYTE CO2 30 meq/L 24 - 32 04/11 [facility] ELECTROLYTE Glucose Lvl 111 mg/dL 70 - 99 04/11 [facility] ELECTROLYTE BUN 2 mg/dL 7 - 22 04/11 [facility] ELECTROLYTE Creatinine 0.67 mg/dL 0.50 - 04/11 S Lvl 1. [facility] HEMATOLOGY Hgb 10.1 g/dL 12.0 - 04/11 MH 16.0 [facility] HEMATOLOGY RBC X 10x6 3.73 M/CMM 4.20 - 04/11 MH 5.40 [facility] HEMATOLOGY MCV 81.8 fL 80.0 - 04/11 MH 98.0 [facility] HEMATOLOGY WBC X 10x3 8.7 K/CMM 3.7 - 10.4 04/11 [facility] HEMATOLOGY Hct 30.5 % 36.0 - 04/11 MH 48.0 [facility] HEMATOLOGY MPV 9.0 fL 7.4 - 10.4 04/11 [facility] HEMATOLOGY MCHC 33.2 g/dL 32.0 - 04/11 MH 36.0 [facility] HEMATOLOGY MCH 27.1 pg 27.0 - 04/11 MH 31.0 [facility] HEMATOLOGY RDW 17.4 % 11. - 04/11 MH 14. [facility] HEMATOLOGY Platelet 360 K/CMM 133 - 450 04/11 [facility] HEMATOLOGY Platelet 393 K/CMM 133 - 450 04/10 [facility] HEMATOLOGY RDW 17.2 % 11. - 04/10 MH 14. [facility] HEMATOLOGY MPV 8.6 fL 7.4 - 10.4 04/10 [facility] HEMATOLOGY MCV 82.1 fL 80.0 - 04/10 MH 98.0 [facility] HEMATOLOGY Hct 33.2 % 36.0 - 04/10 MH 48.0 [facility] HEMATOLOGY MCH 26.8 pg 27.0 - 04/10 MH 31.0 [facility] HEMATOLOGY MCHC 32.6 g/dL 32.0 - 04/10 MH 36.0 [facility] HEMATOLOGY Hgb 10.8 g/dL 12.0 - 04/10 MH 16.0 [facility] HEMATOLOGY WBC X 10x3 7.1 K/CMM 3.7 - 10.4 04/10 [facility] HEMATOLOGY RBC X 10x6 4.04 M/CMM 4.20 - 04/10 MH 5. [facility] CHEM PANEL eGFR 121 04/10 Result Comment: [...] is not recommended in the following populations: [place] [address] Individuals with unstable creatinine concentrations, including patients [...] mg/dL 0.50 - 04/10 MH Lvl 1. [facility] CHEM PANEL BUN 4 mg/dL 7 - 22 04/10 [facility] CHEM PANEL Chloride Lvl 108 meq/L 95 - 109 04/10 [facility] CHEM PANEL Potassium 3.5 meq/L 3.5 - 5.1 04/10 MH Lvl [facility] CHEM PANEL Calcium Lvl 7.8 mg/dL 8.5 - 10.5 04/10 [facility] CHEM PANEL CO2 31 meq/L 24 - 32 04/10 [facility] CHEM PANEL Glucose Lvl 95 mg/dL 70 - 99 04/10 [facility] CHEM PANEL AGAP 7.5 meq/L 10.0 - 04/10 MH 20.0 [facility] CHEM PANEL Sodium Lvl 143 meq/L 135 - 145 04/10 [facility] CHEM PANEL Procalcitoni <0.05 0.00 - 04/09 MH n Lvl ng/mL 0. [facility] HEMATOLOGY MPV 8.6 fL 7.4 - 10.4 04/09 [facility] HEMATOLOGY Platelet 431 K/CMM 133 - 450 04/09 [facility] HEMATOLOGY WBC X 10x3 11.5 K/CMM 3.7 - 10.4 04/09 [facility] HEMATOLOGY RBC X 10x6 4.10 M/CMM 4.20 - 04/09 MH 5. [facility] HEMATOLOGY Hgb 11.1 g/dL 12.0 - 04/09 MH 16.0 [facility] HEMATOLOGY MCH 27.0 pg 27.0 - 04/09 MH 31.0 [facility] HEMATOLOGY MCV 79.8 fL 80.0 - 04/09 MH 98.0 [facility] HEMATOLOGY Hct 32.7 % 36.0 - 04/09 MH 48.0 [facility] HEMATOLOGY RDW 17.7 % 11.5 - 04/09 MH 14. [facility] HEMATOLOGY MCHC 33.9 g/dL 32.0 - 04/09 MH 36.0 [facility] HEMATOLOGY Segs 68.8 % 45.0 - 04/09 MH 75.0 [facility] HEMATOLOGY Basophils 0.4 % 0.0 - 1.0 04/09 [facility] HEMATOLOGY Lymphocytes 2.5 K/CMM 1.0 - 5.5 04/09 MH # /2015 [facility] HEMATOLOGY Segs-Bands # 7.9 K/CMM 1.5 - 8.1 04/09 [facility] HEMATOLOGY Eosinophils 0.1 K/CMM 0.0 - 0.5 04/09 MH # /2015 [facility] HEMATOLOGY Monocytes # 0.9 K/CMM 0.0 - 0.8 04/09 [facility] HEMATOLOGY Eosinophils 1.1 % 0.0 - 4.0 04/09 [facility] HEMATOLOGY Monocytes 8.1 % 2.0 - 12.0 04/09 [facility] HEMATOLOGY Lymphocytes 21.6 % 20.0 - 04/09 MH 40.0 2016 [facility] CHEM PANEL Lipase Lvl 129 unit/L 73 - 393 04/08 [facility] ELECTROLYTE AGAP 9.5 meq/L 10.0 - 04/08 S 20.0 [facility] ELECTROLYTE B/C Ratio 8 6 - 25 04/08 S [facility] ELECTROLYTE A/G Ratio 1.2 0.7 - 1.6 04/08 S [facility] ELECTROLYTE Globulin 3.3 g/dL 2.7 - 4.2 04/08 S [facility] ELECTROLYTE CO2 29 meq/L 24 - 32 04/08 S [facility] ELECTROLYTE Chloride Lvl 106 meq/L 95 - 109 04/08 S [facility] ELECTROLYTE Bili Total 0.4 mg/dL 0.2 - 1.3 04/08 S [facility] ELECTROLYTE Calcium Lvl 8.5 mg/dL 8.5 - 10.5 04/08 S [facility] ELECTROLYTE Total 7.1 g/dL 6.4 - 8.4 04/08 S Protein [facility] ELECTROLYTE ASPARTATE 15 unit/L 0 - 37 04/08 S TRANSAMINASE [facility] ELECTROLYTE eGFR 117 04/08 Result Comment: The [...] is not recommended in the following populations: [facility] 3m2 Individuals with unstable creatinine concentrations, including [...] 3.8 g/dL 3.5 - 5.0 04/08 S [facility] ELECTROLYTE Glucose Lvl 114 mg/dL 70 - 99 04/08 S [facility] ELECTROLYTE ALANINE 20 unit/L 0 - 65 04/08 S AMINOTRANSFE /2015 [facility] RASE ELECTROLYTE Alk Phos 80 unit/L 39 - 136 04/08 S [facility] ELECTROLYTE Potassium 3.5 meq/L 3.5 - 5.1 04/08 S Lvl /2015 [facility] ELECTROLYTE BUN 6 mg/dL 7 - 22 04/08 S [facility] ELECTROLYTE Sodium Lvl 141 meq/L 135 - 145 04/08 S /2015 [facility] ELECTROLYTE Creatinine 0.71 mg/dL 0.50 - 04/08 S Lvl 1.40 /2015 [facility] HEMATOLOGY Basophils 0.3 % 0.0 - 1.0 04/08 [facility] HEMATOLOGY Eosinophils 0.1 K/CMM 0.0 - 0.5 04/08 MH # /2015 [facility] HEMATOLOGY Segs-Bands # 10.1 K/CMM 1.5 - 8.1 04/08 [facility] HEMATOLOGY Lymphocytes 1.7 K/CMM 1.0 - 5.5 04/08 MH # /2016 [facility] HEMATOLOGY Monocytes # 0.7 K/CMM 0.0 - 0.8 04/08 [facility] HEMATOLOGY Segs 80.1 % 45.0 - 04/08 MH 75.0 [facility] HEMATOLOGY Monocytes 5.8 % 2.0 - 12.0 04/08 /2015 [facility] HEMATOLOGY Eosinophils 0.6 % 0.0 - 4.0 04/08 [facility] HEMATOLOGY Lymphocytes 13.2 % 20.0 - 04/08 MH 40.0 [facility] URINE AND UA Sq Epi Few /LPF Few /LPF 04/08 STOOL [facility] URINE AND UA Spec Grav 1.015 <=1.030 04/08 STOOL [facility] URINE AND UA Turbidity Clear Clear 04/08 [facility]OOL [facility] (04/08/16 11:28 AM) URINE AND UA Color Yellow Yellow 04/08 STOOL [facility] *NA* (04/08/16 11:28 AM) URINE AND UA Bili Negative Negative 04/08 STOOL [facility] *NA* (04/08/16 11:28 AM) URINE AND UA Ketones Negative Negative 04/08 [facility] mg/dL mg/dL [facility] URINE AND UA Glucose Negative Negative 04/08 [facility] mg/dL mg/dL [facility] URINE AND UA pH 8.5 5.0 - 8.0 04/08 STOOL [facility] URINE AND UA Protein Negative Negative 04/08 [facility] mg/dL mg/dL [facility] URINE AND UA Leuk Est Negative Negative 04/08 [facility] (04/08/16 11:28 AM) URINE AND UA Nitrite Negative Negative 04/08 [facility] (04/08/16 11:28 AM) URINE AND UA 0.2 EU/dL 0.1 - 1.0 04/08 [facility] Urobilinogen [facility] URINE AND UA Blood Negative Negative 04/08 STOOL [facility] (04/08/16 11:28 AM) URINE CHEM U Preg Negative Negative 04/08 [facility] (04/08/16 11:28 AM) Abdomen Abdomen Clinical Indication: Worsening right upper quadrant pain, had EGD this morning; 04/08 - [facility] acute acute series /2015 - [place] series w w chest 1 Comparison: None [...] acute radiographic abnormalities of the abdomen. SL: [id number] ELECTROLYTE AGAP 14.3 meq/L 10.0 - 12/23 MH S 20.0 [facility] ELECTROLYTE Sodium Lvl 140 meq/L 135 - 145 12/23 S [facility] ELECTROLYTE Potassium 3.3 meq/L 3.5 - 5.1 12/23 S Lvl [facility] ELECTROLYTE CO2 23 meq/L 24 - 32 12/23 S [facility] ELECTROLYTE Calcium Lvl 7.6 mg/dL 8.5 - 10.5 12/23 S [facility] ELECTROLYTE Creatinine 0.64 mg/dL 0.50 - 12/23 S Lvl 1.40 [facility] ELECTROLYTE BUN 5 mg/dL 7 - 22 12/23 S [facility] ELECTROLYTE Chloride Lvl 106 meq/L 95 - 109 12/23 S [facility] ELECTROLYTE eGFR 123 12/23 Result Comment: The eGFR is calculated using the CKD-EPI formula. In most young, healthy individuals the eGFR will be > 90 mL/min/1.73m2. The eGFR declines with age. An eGFR of 60-89 may be normal in [facility] mL/min/1.7 some populations, particularly the elderly, for whom the CKD-EPI formula has not been extensively validated. Use of the eGFR is not recommended in the following populations: [place] [id number] Individuals with unstable creatinine concentrations, including patients [...] 108 mg/dL 70 - 99 12/23 S [facility] HEMATOLOGY Platelet 371 K/CMM 133 - 450 12/23 [facility] HEMATOLOGY MPV 8.1 fL 7.4 - 10.4 12/23 [facility] HEMATOLOGY MCV 82.2 fL 80.0 - 12/23 MH 98.0 [facility] HEMATOLOGY MCHC 32.4 g/dL 32.0 - 12/23 MH 36.0 [facility] HEMATOLOGY RDW 17.7 % 11.5 - 12/23 MH 14.5 [facility] HEMATOLOGY MCH 26.7 pg 27.0 - 12/23 MH 31.0 [facility] HEMATOLOGY RBC X 10x6 3.93 M/CMM 4.20 - 12/23 MH 5.40 [facility] HEMATOLOGY Hct 32.3 % 36.0 - 12/23 MH 48.0 [facility] HEMATOLOGY Hgb 10.5 g/dL 12.0 - 12/23 MH 16.0 [facility] HEMATOLOGY WBC X 10x3 9.5 K/CMM 3.7 - 10.4 12/23 [facility] Gallbladder Gallbladder HEPATOBILIARY SCAN: 12/22 [facility] w scan HIDA - [facility] meds NM meds NM HISTORY: Acute right [...] and small bowel. IMPRESSION: Normal hepatobiliary scan. [id number] CHEM PANEL eGFR 125 12/21 Result Comment: [...] is not recommended in the following populations: [address] Individuals with unstable creatinine concentrations, including [...] meq/L 3.5 - 5.1 12/21 MH Lvl [facility] CHEM PANEL Chloride Lvl 107 meq/L 95 - 109 12/21 [facility] CHEM PANEL Creatinine 0.61 mg/dL 0.50 - 12/21 MH Lvl 1.40 [facility] CHEM PANEL Sodium Lvl 140 meq/L 135 - 145 12/21 [facility] CHEM PANEL Calcium Lvl 8.1 mg/dL 8.5 - 10.5 12/21 [facility] CHEM PANEL BUN 10 mg/dL 7 - 22 12/21 [facility] CHEM PANEL Glucose Lvl 88 mg/dL 70 - 99 12/21 [facility] CHEM PANEL CO2 23 meq/L 24 - 32 07 MH /2015 [facility] CHEM PANEL AGAP 13.9 meq/L 10.0 - 12/21 MH 20.0 [facility] HEMATOLOGY Platelet 419 K/CMM 133 - 450 12/21 [facility] HEMATOLOGY MPV 8.3 fL 7.4 - 10.4 07 [facility] HEMATOLOGY RDW 18.3 % 11.5 - 12/21 MH 14.5 [facility] HEMATOLOGY MCV 82.4 fL 80.0 - 12/21 MH 98.0 [facility] HEMATOLOGY MCHC 32.1 g/dL 32.0 - 12/21 MH 36.0 [facility] HEMATOLOGY MCH 26.4 pg 27.0 - 12/21 MH 31.0 [facility] HEMATOLOGY Hct 34.7 % 36.0 - 12/21 MH 48.0 [facility] HEMATOLOGY RBC X 10x6 4.21 M/CMM 4.20 - 12/21 MH 5.40 [facility] HEMATOLOGY Hgb 11.1 g/dL 12.0 - 12/21 MH 16.0 [facility] HEMATOLOGY WBC X 10x3 14.8 K/CMM 3.7 - 10.4 07 [facility] HEMATOLOGY Lymphocytes 2.1 K/CMM 1.0 - 5.5 12/21 MH # /2015 [facility] HEMATOLOGY Monocytes # 0.9 K/CMM 0.0 - 0.8 12/21 MH [facility] HEMATOLOGY Segs-Bands # 11.7 K/CMM 1.5 - 8.1 12/21 [facility] HEMATOLOGY Eosinophils 0.3 % 0.0 - 4.0 12/21 [facility] HEMATOLOGY Lymphocytes 14.1 % 20.0 - 12/21 MH 40.0 [facility] HEMATOLOGY Basophils 0.3 % 0.0 - 1.0 12/21 [facility] HEMATOLOGY Monocytes 6.3 % 2.0 - 12.0 12/21 [facility] HEMATOLOGY Segs 79.0 % 45.0 - 12/21 MH 75.0 [facility] URINE AND UA Color Yellow Yellow 12/20 STOOL [facility] *NA* (12/21/15 5:21 PM) URINE AND UA Turbidity Clear Clear 12/20 STOOL /2015 [facility] (12/21/15 5:21 PM) URINE AND UA 0.2 EU/dL 0.1 - 1.0 12/20 [facility] Urobilinogen /2015 [facility] URINE AND UA Nitrite Negative Negative 12/20 STOOL [facility] (12/21/15 5:21 PM) URINE AND UA Sq Epi Few /LPF Few /LPF 12/20 [facility] URINE AND UA WBC 0-2 /HPF None Seen 12/20 STOOL /HPF [facility] URINE AND UA pH 8.0 5.0 - 8.0 12/20 [facility] URINE AND UA Spec Grav 1.015 <=1.030 12/20 [facility] URINE AND UA Protein Negative Negative 12/20 [facility] (12/21/15 5:21 PM) URINE AND UA Bili Negative Negative 12/20 [facility] *NA* (12/21/15 5:21 PM) URINE AND UA Glucose Negative Negative 12/20 [facility] (12/21/15 5:21 PM) URINE AND UA Leuk Est Negative Negative 12/20 [facility] (12/21/15 5:21 PM) URINE AND UA Blood Negative Negative 12/20 [facility] (12/21/15 5:21 PM) URINE AND UA Ketones >=80 mg/dL Negative 12/20 [facility] mg/dL [facility] URINE AND UA RBC 0-2 /HPF 0 - 2 12/20 [facility] URINE AND UA Bacteria Occasional None Seen 12/20 STOOL /HPF /HPF [facility] URINE AND UA Mucus See Note None Seen 12/20 [facility] (12/21/15 5:21 PM) URINE CHEM U Preg Negative Negative 12/20 [facility] (12/21/15 5:21 PM) CHEM PANEL Lipase Lvl 139 unit/L 73 - 393 12/20 [facility] CHEM PANEL eGFR 111 12/20 Result Comment: [...] is not recommended in the following populations: [address] Individuals with unstable creatinine concentrations, including [...] Lvl 4.4 g/dL 3.5 - 5.0 12/20 [facility] CHEM PANEL ALANINE 26 unit/L 0 - 65 12/20 AMINOTRANS [facility] RASE CHEM PANEL BUN 9 mg/dL 7 - 22 12/20 [facility] CHEM PANEL Glucose Lvl 103 mg/dL 70 - 99 12/20 [facility] CHEM PANEL Alk Phos 91 unit/L 39 - 136 12/20 [facility] CHEM PANEL Creatinine 0.74 mg/dL 0.50 - 12/20 MH Lvl 1.40 [facility] CHEM PANEL ASPARTATE 23 unit/L 0 - 37 12/20 MH [facility] CHEM PANEL Total 8.4 g/dL 6.4 - 8.4 12/20 [facility] CHEM PANEL Chloride Lvl 104 meq/L 95 - 109 12/20 [facility] CHEM PANEL Potassium 3.9 meq/L 3.5 - 5.1 12/20 MH Lvl [facility] CHEM PANEL Sodium Lvl 136 meq/L 135 - 145 12/20 [facility] CHEM PANEL Bili Total 0.6 mg/dL 0.2 - 1.3 12/20 [facility] CHEM PANEL Calcium Lvl 8.8 mg/dL 8.5 - 10.5 12/20 [facility] CHEM PANEL CO2 20 meq/L 24 - 32 12/20 [facility] CHEM PANEL A/G Ratio 1.1 0.7 - 1.6 12/20 [facility] CHEM PANEL Globulin 4.0 g/dL 2.0 - 4.0 12/20 [facility] CHEM PANEL B/C Ratio 12 6 - 25 12/20 [facility] CHEM PANEL AGAP 15.9 meq/L 10.0 - 07 MH 20.0 /2015 [facility] HEMATOLOGY Lymphocytes 2.5 K/CMM 1.0 - 5.5 07/10 MH # /2016 [facility] HEMATOLOGY Basophils # 0.1 K/CMM 0.0 - 0.2 07/ /2015 [facility] HEMATOLOGY Monocytes # 0.8 K/CMM 0.0 - 0.8 07 [facility] HEMATOLOGY Monocytes 5.1 % 2.0 - 12.0 07 [facility] HEMATOLOGY Lymphocytes 15.3 % 20.0 - 07 MH 40.0 /2015 [facility] HEMATOLOGY Eosinophils 0.1 % 0.0 - 4.0 12/20 [facility] HEMATOLOGY Segs-Bands # 13.1 K/CMM 1.5 - 8.1 12/20 [facility] HEMATOLOGY Basophils 0.6 % 0.0 - 1.0 12/20 [facility] HEMATOLOGY Segs 78.9 % 45.0 - 12/20 MH 75.0 [facility] HEMATOLOGY MPV 7.8 fL 7.4 - 10.4 12/20 [facility] HEMATOLOGY MCH 26.3 pg 27.0 - 12/20 MH 31.0 [facility] HEMATOLOGY RDW 18.0 % 11.5 - 12/20 MH 14.5 [facility] HEMATOLOGY MCHC 32.6 g/dL 32.0 - 12/20 MH 36.0 [facility] HEMATOLOGY Platelet 497 K/CMM 133 - 450 12/20 [facility] HEMATOLOGY WBC X 10x3 16.6 K/CMM 3.7 - 10.4 12/20 [facility] HEMATOLOGY RBC X 10x6 4.76 M/CMM 4.20 - 12/20 MH 5.40 /2015 [facility] HEMATOLOGY Hgb 12.5 g/dL 12.0 - 12/20 MH 16.0 [facility] HEMATOLOGY Hct 38.3 % 36.0 - 12/20 MH 48.0 [facility] HEMATOLOGY MCV 80.5 fL 80.0 - 12/20 MH 98.0 /2015 [facility] Abdomen/Pel Abdomen/Pelv Study: Abdomen/Pelvis wo IV contrast CT 12/21/2015 5: 29 PM CDT 12/20 - Ani ceron wo IV is wo IV /2015 - [place] contrast CT contrast CT Patient Name: DONNY VELEZ MR: [id number] Read by: David Zambrano MD Dictated Date/time: 12/21/15 19:02 : 1990; Age: 25 years y/o Female Electronically Signed by: David Zambrano MD 12/21/15 19:10 FINAL REPORT Ordering [...] RUQ Patient Name: DONNY VELEZ 12/20 - [facility] /2015 - Eb : 1990; Age: 25 years y/o Female MR: [id number] Read by: Jim Yates MD Dictated Date/time: [...] unit/L 73 - 393 12/20 MH /2015 [facility] ELECTROLYTE AGAP 11.7 meq/L 10.0 - 12/20 MH S 20.0 /2015 [facility] ELECTROLYTE eGFR 109 12/20 Result Comment: The [...] is not recommended in the following populations: [address] Individuals with unstable creatinine concentrations, including [...] 8 mg/dL 7 - 22 12/20 S [facility] ELECTROLYTE Glucose Lvl 95 mg/dL 70 - 99 / S [facility] ELECTROLYTE Sodium Lvl 139 meq/L 135 - 145 07/ S [facility] ELECTROLYTE Creatinine 0.76 mg/dL 0.50 - 12/20 S Lvl 1.40 [facility] ELECTROLYTE CO2 25 meq/L 24 - 32 07/ S /2015 [facility] ELECTROLYTE Calcium Lvl 8.8 mg/dL 8.5 - 10.5 12/20 S [facility] ELECTROLYTE Chloride Lvl 106 meq/L 95 - 109 12/20 S [facility] ELECTROLYTE Potassium 3.7 meq/L 3.5 - 5.1 12/20 S Lvl /2015 [facility] HEMATOLOGY Hct 36.3 % 36.0 - 12/20 MH 48.0 [facility] HEMATOLOGY Hgb 11.6 g/dL 12.0 - 12/20 MH 16.0 [facility] HEMATOLOGY RBC X 10x6 4.47 M/CMM 4.20 - 12/20 MH 5.40 [facility] HEMATOLOGY Platelet 450 K/CMM 133 - 450 12/20 [facility] HEMATOLOGY RDW 18.3 % 11.5 - 12/20 MH 14.5 [facility] HEMATOLOGY MCHC 31.9 g/dL 32.0 - 12/20 MH 36.0 [facility] HEMATOLOGY MCH 25.9 pg 27.0 - 12/20 MH 31.0 [facility] HEMATOLOGY MCV 81.3 fL 80.0 - 12/20 MH 98.0 [facility] HEMATOLOGY MPV 8.0 fL 7.4 - 10.4 12/20 [facility] HEMATOLOGY WBC X 10x3 16.4 K/CMM 3.7 - 10.4 12/20 [facility] HEMATOLOGY Eosinophils 0.1 K/CMM 0.0 - 0.5 /10 MH # /2015 [facility] HEMATOLOGY Monocytes # 0.8 K/CMM 0.0 - 0.8 10 [facility] HEMATOLOGY Basophils # 0.1 K/CMM 0.0 - 0.2 12/20 [facility] HEMATOLOGY Lymphocytes 14.3 % 20.0 - 12/20 MH 40.0 [facility] HEMATOLOGY Segs 80.0 % 45.0 - 12/20 MH 75.0 [facility] HEMATOLOGY Monocytes 4.7 % 2.0 - 12.0 12/20 [facility] HEMATOLOGY Lymphocytes 2.4 K/CMM 1.0 - 5.5 12/20 MH # /2015 [facility] HEMATOLOGY Segs-Bands # 13.1 K/CMM 1.5 - 8.1 12/20 [facility] HEMATOLOGY Basophils 0.4 % 0.0 - 1.0 12/20 [facility] HEMATOLOGY Eosinophils 0.6 % 0.0 - 4.0 12/20 [facility] URINE AND UA Bacteria Few /HPF None Seen 12/19 STOOL /HPF [facility] URINE AND UA RBC 0-2 /HPF 0 - 2 12/19 [facility] URINE AND UA WBC 0-2 /HPF None Seen 12/19 STOOL /HPF [facility] URINE AND UA Sq Epi Moderate Few /LPF 12/19 STOOL /LPF [facility] URINE AND UA Nitrite Negative Negative 12/19 STOOL [facility] (12/20/15 6:17 PM) URINE AND UA Blood Negative Negative 12/19 [facility] (12/20/15 6:17 PM) URINE AND UA Leuk Est Negative Negative 12/19 STOOL [facility] (12/20/15 6:17 PM) URINE AND UA Turbidity Clear Clear 12/19 STOOL [facility] (12/20/15 6:17 PM) URINE AND UA Spec Grav 1.015 <=1.030 12/19 STOOL [facility] URINE AND UA Color Yellow Yellow 12/19 [facility] *NA* (12/20/15 6:17 PM) URINE AND UA 0.2 EU/dL 0.1 - 1.0 12/19 [facility] Urobilinogen [facility] URINE AND Micro? Performed 12/19 STOOL [facility] (12/20/15 6:17 PM) URINE AND UA Glucose Negative Negative 12/19 STOOL [facility] (12/20/15 6:17 PM) URINE AND UA pH >=9.0 5.0 - 8.0 12/19 [facility] *ABN* (12/20/15 6:17 PM) URINE AND UA Ketones Negative Negative 12/19 [facility] *NA* (12/20/15 6:17 PM) URINE AND UA Protein Trace Negative 12/19 [facility] *ABN* (12/20/15 6:17 PM) URINE AND UA Bili Negative Negative 12/19 [facility] *NA* (12/20/15 6:17 PM) URINE CHEM U Preg Negative Negative 12/19 [facility] (12/20/15 6:17 PM) Pelvis w Pelvis w Patient Name: DONNY VELEZ 12/19 - [facility] Transvag Transvag and - [place] and Pelvis Pelvis : 1990; Age: 25 years y/o Female Doppler US Doppler US MR: [id number] Read by: Sal Ayala MD Dictated Date/time: [...] ABDOMEN AND PELVIS WITH CONTRAST. 12/19 - [facility] Abdomen/Pel Abdomen/Pel - [facility] IV is IV HX: Clinical Indication: Lower [...] Date Comments Source Respitory Rate 16 04/11/2016 [facility] Temperature Oral (F) 98 F 04/11/2016 [facility] Systolic (mm Hg) 118 04/11/2016 [facility] Diastolic (mm Hg) 71 04/11/2016 [facility] Heart Rate 77 04/11/2016 [facility] Respitory Rate 18 04/11/2016 [facility] Temperature Oral (F) 97.4 F 04/11/2016 [facility] Heart Rate 72 04/11/2016 [facility] Systolic (mm Hg) 125 04/11/2016 [facility] Diastolic (mm Hg) 78 04/11/2016 [facility] Temperature Oral (F) 98.1 F 04/11/2016 [facility] Systolic (mm Hg) 123 04/11/2016 [facility] Diastolic (mm Hg) 80 04/11/2016 [facility] Heart Rate 72 04/11/2016 [facility] Respitory Rate 18 04/11/2016 [facility] Height 162.56 cm 04/08/2016 [facility] Weight 88.636 04/08/2016 [facility] BMI Calculated 33.54 04/08/2016 [facility] Height 162.56 cm 04/08/2016 [facility] Weight 88.636 04/08/2016 [facility] BMI Calculated 33.54 04/08/2016 [facility] Systolic (mm Hg) 118 12/24/2015 [facility] Diastolic (mm Hg) 74 12/24/2015 [facility] Temperature Oral (F) 98.1 F 12/24/2015 [facility] Heart Rate 64 12/24/2015 [facility] Respitory Rate 18 12/24/2015 [facility] Systolic (mm Hg) 117 12/24/2015 [facility] Diastolic (mm Hg) 74 12/24/2015 [facility] Respitory Rate 18 12/24/2015 [facility] Heart Rate 65 12/24/2015 [facility] Temperature Oral (F) 97.8 F 12/24/2015 [facility] Temperature Oral (F) 97.4 F 12/24/2015 [facility] Heart Rate 64 12/24/2015 [facility] Systolic (mm Hg) 130 12/24/2015 [facility] Diastolic (mm Hg) 79 12/24/2015 [facility] Respitory Rate 18 12/24/2015 [facility] Height 162.56 cm 12/22/2015 [facility] BMI Calculated 32.68 12/22/2015 [facility] Weight 86.364 12/22/2015 [facility] Height 162.56 cm 12/21/2015 [facility] BMI Calculated 33.54 12/21/2015 [facility] Weight 88.636 12/21/2015 [facility] Heart Rate 85 12/21/2015 [facility] Temperature Oral (F) 98.1 F 12/21/2015 [facility] Respitory Rate 16 12/21/2015 [facility] Systolic (mm Hg) 135 12/21/2015 [facility] Diastolic (mm Hg) 75 12/21/2015 [facility] Weight 87.727 12/20/2015 [facility] Temperature Oral (F) 97.9 F 12/20/2015 [facility] Respitory Rate 18 12/20/2015 [facility] Systolic (mm Hg) 143 12/20/2015 [facility] Diastolic (mm Hg) 78 12/20/2015 [facility] Heart Rate 98 12/20/2015 [facility] Encounters Location Location Encounter Encounter Reason Attending ADM DC Status Source Details Type Number For Provider Date Date [facility] [id number] Siddharth 12/19 12/20 [facility] /2015 [facility] OBS [id number] Janeana 12/20 12/24 [facility] [place] /2015 [facility] [id number] Janeana 04/08 04/11 Eb Lynne /2015 [facility] Procedures Procedure Code Date Perfomer Comments Source Tonsillectomy [id number] [facility]
[2017-12-24] MEDS ORDERED: METOCLOPRAMIDE 10 MG/2mL INJ ONE (06:52)
[2017-12-24] MEDS ORDERED: NA CHLORIDE 0.9% 1,000 ML ONE (06:52)
[2017-12-24] MEDS ORDERED: DIPHENHYDRAMINE 50 MG/ML VIAL ONE (06:52)
[2017-12-24 06:56] LABS: Absolute Lymphocytes (CBC) 1.3 K/uL (0.7-4.9); Absolute Monocytes 0.9 K/uL (0.1-1.3); Absolute Neutrophil 17.9 K/uL (1.8-8.0); Basophils % 0.2 % (0-1.3); Eosinophils % 0.1 % (0-4.4); Lymphocytes % 6.5 % (15.3-44.8); MCH 24.9 pg (27.0-35.0); MCV 75.5 fL (80-100); MPV 8.4 fL (7.6-11.3); Monocytes % 4.5 % (3.3-12.3); RBC Red Blood Cell Count 4.37 M/uL (3.86-4.86)
[2017-12-24 07:15] LABS: ALT/SGPT 22 U/L (12-78); AST/SGOT 19 U/L (15-37); Albumin 4.1 g/dL (3.4-5.0); Alkaline Phosphatase 93 U/L (45-117); Amylase Level 69 U/L (25-115); BUN Blood Urea Nitrogen 13 mg/dL (7-18); Bicarbonate 26 mmol/L (21-32); Bilirubin Direct 0.1 mg/dL (0-0.2); Bilirubin Total 0.4 mg/dL (0.2-1.0); Glucose Level 121 mg/dL (74-106); Lipase 128 U/L (73-393); Potassium 3.6 mmol/L (3.5-5.1); Protein, Total 8.7 g/dL (6.4-8.2); Sodium Level 138 mmol/L (136-145)
[2017-12-24] MEDS ORDERED: MORPHINE 4 MG/ML SYR ONE (07:22)
[2017-12-24] MEDS ORDERED: ONDANSETRON 4 MG/2 ML VIAL ONE ×2 (07:22→10:35)
[2017-12-24] MEDS ORDERED: METRONIDAZOLE 500mg IVPB 500 MG/100 ML BAG IV ONE (07:22)
--- NOTE | 2017-12-24 07:43 | EDPHYS ---
Physician Documentation [facility] Name: Jaye Pérez Age: 27 yrs Sex: Female : 1990 Arrival Date: 12/24/2017 Time: 06:07 Bed 8 Private MD: Diana Linton K ED Physician Chidi Rivera HPI: 12/24 06:38 This 27 yrs old Female presents to ER via Ambulatory with complaints of jmm Vomiting. 06:38 The patient presents to the emergency department with nausea, vomiting. Onset: The jmm symptoms/episode began/occurred gradually, 2 day(s) ago. Associated signs and symptoms: Pertinent positives: abdominal pain, vomiting. This is a 27 old female with a history of PUD that presents to the ED with vomiting and abdominal pain beginning approx 2 days ago. The patient was evaluated in the ED yesterday and diagnosed with colitis. The patient states after about 3 hours home she was unable to keep her meds or fluids down.. 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 - Social history:: Smoking status: Patient uses tobacco products, smokes one-half pack cigarettes per day. - Ebola Screening: : No symptoms or risks identified at this time. ROS: 06:38 Constitutional: Negative for fever, chills, and weight loss, Cardiovascular: Negative jmm for chest pain, palpitations, and edema, Respiratory: Negative for shortness of breath, cough, wheezing, and pleuritic chest pain. 06:38 MS/Extremity: Negative for injury and deformity, Skin: Negative for injury, rash, and discoloration, Neuro: Negative for headache, weakness, numbness, tingling, and seizure. 06:38 Abdomen/GI: Positive for abdominal pain, nausea and vomiting. 06:38 All other systems are negative. Exam: 06:38 Head/Face: atraumatic. Chest/axilla: Normal chest wall appearance and motion. jmm Cardiovascular: Regular rate and rhythm. No edema appreciated Respiratory: Normal respirations, no respiratory distress appreciated 06:38 Constitutional: The patient appears alert, awake, uncomfortable. 06:38 Abdomen/GI: Inspection: abdomen appears normal, Bowel sounds: normal, Palpation: soft, mild abdominal tenderness, in the right lower quadrant and left lower quadrant. 06:38 Back: CVA tenderness, is absent. 06:38 Skin: Appearance: Color: normal in color. 06:38 Neuro: Orientation: is normal, Mentation: is normal, Memory: is normal. 06:38 Psych: Behavior/mood is pleasant, cooperative. Vital Signs: 06:22 BP 130 / 75; Pulse 76; Resp 16; Temp 98.6(O); Pulse Ox 99% on R/A; Weight 81.65 kg; lp1 Height 5 ft. 4 in. (162.56 cm); Pain 6/10; 07:30 BP 118 / 78; Pulse 76; Resp 18; Pulse Ox 98% on R/A; ph 08:42 BP 112 / 75; Pulse 71; Resp 18; Temp 97.8; Pulse Ox 99% on R/A; ph 09:07 BP 132 / 87; Pulse 68; Resp 17; Pulse Ox 100% on R/A; dh3 10:35 BP 142 / 82; Pulse 72; Resp 18; Pulse Ox 99% on R/A; aj1 06:22 Body Mass Index 30.90 (81.65 kg, 162.56 cm) lp1 MDM: 06:36 Patient medically screened. [facility] 06:44 Data reviewed: vital signs, nurses notes. [facility] 07:38 Data reviewed: lab test result(s). Counseling: I had a detailed discussion with the [facility] patient and/or guardian regarding: the historical points, exam findings, and any diagnostic results supporting the discharge/admit diagnosis, lab results, the need for further work-up and treatment in the hospital. Physician consultation: Clau Paez MD. ED course: I discussed the patient with Dr. dave whom accepted admission. . 12/24 06:23 Order name: Amylase, Serum; Complete Time: 07:30 [facility] 12/24 06:23 Order name: Basic Metabolic Panel; Complete Time: 07:30 [facility] 12/24 06:23 Order name: CBC with Diff; Complete Time: 07:04 [facility] 12/24 06:23 Order name: Creatinine for Radiology; Complete Time: 07:30 [facility] 12/24 06:23 Order name: Hepatic Function; Complete Time: 07:30 [facility] 12/24 06:23 Order name: Lipase; Complete Time: 07:30 [facility] 12/24 06:23 Order name: Urine Microscopic Only; Complete Time: 08:14 [facility] 12/24 06:47 Order name: Urine Dipstick--Ancillary (enter results); Complete Time: 08:14 ms 12/24 07:48 Order name: Basic Metabolic Panel EDMS 12/24 07:48 Order name: Basic Metabolic Panel EDMS 12/24 07:48 Order name: Lipase EDMS 12/24 07:48 Order name: Lipase EDMS 12/24 07:49 Order name: CBC with Automated Diff EDOH 12/24 07:49 Order name: CBC with Automated Diff EDOH 12/24 06:23 Order name: IV Saline Lock; Complete Time: 06:56 [facility] 12/24 06:23 Order name: Labs collected and sent; Complete Time: 06:56 [facility] 12/24 06:23 Order name: Urine Dipstick-Ancillary (obtain specimen); Complete Time: 06:56 [facility] 12/24 07:49 Order name: NPO EDOH 12/24 07:49 Order name: Liver (Hepatic) Function EDOH 12/24 07:49 Order name: Liver (Hepatic) Function EDMS Administered Medications: 06:57 Drug: NS 0.9% 1000 ml Route: IV; Rate: 1 bolus; Site: right antecubital; bb 06:57 Drug: Reglan 10 mg Route: IVP; Site: right antecubital; bb 06:57 Drug: diphenhydrAMINE 12.5 mg Route: IVP; Site: right antecubital; bb 07:11 CANCELLED (Duplicate Order): Rocephin - (cefTRIAXone) 1 grams IVPB once over 30 mins; sv (mix in 50 mL NS) 07:32 Drug: Rocephin 1 grams Route: IV; Rate: calculated rate; Site: right antecubital; ph 07:33 Drug: Flagyl 500 mg Volume: 100 ml; Route: IVPB; Rate: 200 ml/hr; Infused Over: 30 ph mins; Site: right antecubital; 07:33 Drug: morphine 4 mg Route: IVP; Site: right antecubital; ph 07:33 Drug: Zofran 4 mg Route: IVP; Site: right antecubital; ph 10:35 Drug: Zofran 4 mg Route: IVP; Site: right antecubital; aj1 Disposition: 19:08 Co-signature as Attending Physician, Chidi Rivera MD. rn Disposition: 12/24/17 07:42 Hospitalization ordered by Clau Paez for Observation. Preliminary diagnosis are Colitis, Failed Outpatient Therapy, Intractable Vomiting. - Bed requested for Telemetry/MedSurg (observation). - Status is Observation. aj1 - Condition is Stable. - Problem is new. - Symptoms are unchanged. UTI on Admission? Yes Signatures: Dispatcher [employer] EDMS Yessica Browne RN MARCIA aj1 Kaya Allen RN RN Osmar Mtz PA PA [facility] Brittani Pinto, RN Chidi Bridges MD MD rn Pena, Laura, RN RN [facility] Tia Gregory RN RN Guera Ling Corrections: (The following items were deleted from the chart) 07:11 07:03 Rocephin - (cefTRIAXone) 1 grams IVPB once over 30 mins; (mix in 50 mL NS) sv ordered. [facility] 08:14 07:42 Hospitalization Ordered by Clau Paez MD for Observation. Preliminary [facility] diagnosis is Colitis; Failed Outpatient Therapy; Intractable Vomiting. Bed requested for Telemetry/MedSurg (observation). Status is Observation. Condition is Stable. Problem is new. Symptoms are unchanged. UTI on Admission? No. [facility] 08:33 08:14 12/24/2017 07:42 Hospitalization Ordered by Clau Paez MD for Observation. eb Preliminary diagnosis is Colitis; Failed Outpatient Therapy; Intractable Vomiting. Bed requested for Telemetry/MedSurg (observation). Status is Observation. Condition is Stable. Problem is new. Symptoms are unchanged. UTI on Admission? Yes. lilly 11:46 08:33 12/24/2017 07:42 Hospitalization Ordered by Clau Paez MD for Observation. aj1 Preliminary diagnosis is Colitis; Failed Outpatient Therapy; Intractable Vomiting. Bed requested for Telemetry/MedSurg (observation). Status is Observation. Condition is Stable. Problem is new. Symptoms are unchanged. UTI on Admission? Yes. eb
--- NOTE | 2017-12-24 07:43 | ER ---
Nurse's Notes [facility] Name: Jaye Pérez Age: 27 yrs Sex: Female : 1990 Arrival Date: 12/24/2017 Time: 06:07 Bed 8 Private MD: Diana Linton K Diagnosis: Colitis;Failed Outpatient Therapy;Intractable Vomiting Presentation: 12/24 06:21 Presenting complaint: Patient states: "I was here yesterday and diagnosed with colitis. lp1 They told me to come back if the pain got worse"; Patient states N/V x 3-4 hours, pain to throat from vomiting, denies abdominal pain, diarrhea; Patient states unable to tolerate PO meds prescribed. Transition of care: patient was not received from another setting of care. Onset of symptoms was December 24, 2017. Risk Assessment: Do you want to hurt yourself or someone else? Patient reports no desire to harm self or others. Initial Sepsis Screen: Does the patient meet any 2 criteria? No. Patient's initial sepsis screen is negative. Does the patient have a suspected source of infection? No. Patient's initial sepsis screen is negative. Care prior to arrival: None. 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 - Social history:: Smoking status: Patient uses tobacco products, smokes one-half pack cigarettes per day. - Ebola Screening: : No symptoms or risks identified at this time. Screenin:25 Abuse screen: Denies threats or abuse. Denies injuries from another. Nutritional lp1 screening: No deficits noted. Tuberculosis screening: No symptoms or risk factors identified. Fall Risk None identified. Assessment: 06:24 General: Appears uncomfortable, Behavior is appropriate for age. Pain: Complains of lp1 pain in throat from vomiting Pain currently is 6 out of 10 on a pain scale. Neuro: Level of Consciousness is awake, alert, obeys commands. Cardiovascular: Patient's skin is warm and dry. Respiratory: Respiratory effort is even, unlabored. GI: Abdomen is non-distended, Bowel sounds present X 4 quads. Reports nausea, vomiting. : Denies burning with urination. EENT: No signs and/or symptoms were reported regarding the EENT system. Derm: Skin is intact, Skin is dry, Skin is pale. Musculoskeletal: Circulation, motion, and sensation intact. 09:05 Reassessment: Patient appears in no apparent distress at this time. Patient and/or ph family updated on plan of care and expected duration. Pain level reassessed. Patient is alert, oriented x 3, equal unlabored respirations, skin warm/dry/pink. Pt resting quietly, attempted to call report to 2nd floor, placed on hold for 5 min, will attempt again. 10:35 General: Appears in no apparent distress. comfortable, Behavior is calm, cooperative, aj1 appropriate for age. Pain: Complains of pain in left lower quadrant and right lower quadrant Pain does not radiate. Quality of pain is described as crampy, Patient states that her pain is better since she was given pain medication. Neuro: Level of Consciousness is awake, alert, obeys commands. Cardiovascular: Patient's skin is warm and dry. Respiratory: Airway is patent Respiratory effort is even, unlabored, Respiratory pattern is regular, symmetrical. GI: Abdomen is non-distended, Bowel sounds present X 4 quads. Abd is soft X 4 quads Reports nausea, vomiting, Patient currently denies diarrhea. : No signs and/or symptoms were reported regarding the genitourinary system. EENT: No signs and/or symptoms were reported regarding the EENT system. Derm: No signs and/or symptoms reported regarding the dermatologic system. Skin is pink, warm \\T\\ dry. normal. Musculoskeletal: No signs and/or symptoms reported regarding the musculoskeletal system. Circulation, motion, and sensation intact. 10:35 Reassessment: Patient states that her pain is better but she is feeling nauseated. aj1 Notified VENUS Seth. Order received. 11:16 Reassessment: Report given to MARCIA Han on 2nd floor. aj1 Vital Signs: 06:22 BP 130 / 75; Pulse 76; Resp 16; Temp 98.6(O); Pulse Ox 99% on R/A; Weight 81.65 kg; lp1 Height 5 ft. 4 in. (162.56 cm); Pain 6/10; 07:30 BP 118 / 78; Pulse 76; Resp 18; Pulse Ox 98% on R/A; ph 08:42 BP 112 / 75; Pulse 71; Resp 18; Temp 97.8; Pulse Ox 99% on R/A; ph 09:07 BP 132 / 87; Pulse 68; Resp 17; Pulse Ox 100% on R/A; dh3 10:35 BP 142 / 82; Pulse 72; Resp 18; Pulse Ox 99% on R/A; aj1 06:22 Body Mass Index 30.90 (81.65 kg, 162.56 cm) lp1 ED Course: 06:07 Patient arrived in ED. es 06:12 Diana Linton MD is Private Physician. es 06:20 Camila Saavedra, MARCIA is Primary Nurse. lp1 06:22 Triage completed. lp1 06:22 Osmar Turner PA is PHCP. jm 06:22 Chidi Rivera MD is Attending Physician. jmm 06:22 Arm band placed on left wrist. lp1 06:26 Patient has correct armband on for positive identification. Placed in gown. Bed in low lp1 position. Pulse ox on. NIBP on. 07:35 called and connected with Osmar DONOVAN for patient admission consulation. eb 07:42 Clau Paez MD is Hospitalizing Provider. jm 08:49 No provider procedures requiring assistance completed. Inserted saline lock: 20 gauge ph in right antecubital area, using aseptic technique. ,using aseptic technique. inserted by previous shift. Patient admitted, IV remains in place. Administered Medications: 06:57 Drug: NS 0.9% 1000 ml Route: IV; Rate: 1 bolus; Site: right antecubital; bb 06:57 Drug: Reglan 10 mg Route: IVP; Site: right antecubital; bb 06:57 Drug: diphenhydrAMINE 12.5 mg Route: IVP; Site: right antecubital; bb 07:11 CANCELLED (Duplicate Order): Rocephin - (cefTRIAXone) 1 grams IVPB once over 30 mins; sv (mix in 50 mL NS) 07:32 Drug: Rocephin 1 grams Route: IV; Rate: calculated rate; Site: right antecubital; ph 07:33 Drug: Flagyl 500 mg Volume: 100 ml; Route: IVPB; Rate: 200 ml/hr; Infused Over: 30 ph mins; Site: right antecubital; 07:33 Drug: morphine 4 mg Route: IVP; Site: right antecubital; ph 07:33 Drug: Zofran 4 mg Route: IVP; Site: right antecubital; ph 10:35 Drug: Zofran 4 mg Route: IVP; Site: right antecubital; aj1 Outcome: 07:42 Decision to Hospitalize by Provider. lilly 11:15 Admitted to Med/surg accompanied by tech, via wheelchair. [facility] 11:15 Condition: good 11:15 Discharge instructions given to patient, Instructed on the need for admit, Demonstrated understanding of instructions. 11:46 Patient left the ED. [facility] Signatures: Yessica Browne RN RN aj1 Osmar Turner PA PA [facility] Lexie Hamilton Brenda RN RN Camila Saavedra RN RN 1 Tia Gregory RN RN Jada Garza [facility] Guera Ling Stephanie RN
[2017-12-24] MEDS ORDERED: MORPHINE 4 MG/ML SYR IV PRN (07:46)
[2017-12-24] MEDS ORDERED: ACETAMINOPHEN 500 MG TAB PO PRN (07:46)
[2017-12-24 07:54] LABS: Urine Blood 3+ (NEG); Urine Glucose NEGATIVE (NEG); Urine Protein 3+ (NEG); Urine Specific Gravity >1.030 (1.005-1.030)
[2017-12-24 07:57] LABS: Urine Bacteria >50 /HPF (<20); Urine Culture Reflex Order REFLEXED; Urine RBC TNTC /HPF (NONE SEEN)
[2017-12-24] MEDS: D5 0.45 NS 1,000 ML IV SCH ×3 (08:00→19:51)
[2017-12-24] MEDS ORDERED: CEFTRIAXONE 1 GM/NS 50 ML 1 GM/50 ML BAG IV SCH (09:00)
[2017-12-24] MEDS ORDERED: CEFTRIAXONE/SWI 1gm 1 GM/10 ML SYR IV SCH ×2 (09:00→21:00)
[2017-12-24] MEDS ORDERED: ONDANSETRON 4 MG/2 ML VIAL IV ONE (11:54)
[2017-12-24 11:55] VITALS: BMI 29.5
[2017-12-24] MEDS ORDERED: Levofloxacin 750mg IV 750 MG/150 ML BAG IV SCH (13:00)
[2017-12-24] MEDS: MORPHINE 4 MG/ML SYR IV PRN ×2 (15:11→19:52)
--- NOTE | 2017-12-24 15:15 | HP ---
Date of Admission: 12/24/2017 Reason For Admission: Nausea and vomiting. History Of Present Illness: This is a 27-year-old female with history of peptic ulcer disease, migra ine, presented to emergency room last night with history of 24 hours of migraine headache, fatigue, n ausea and vomiting. She was evaluated. CT scan of the abdomen showed very mild colitis in the cecum area, but the patient was sent home with oral antibiotic. Apparently, the patient could not tolerat e any oral intake, continued to have nausea and vomiting, and she came back to emergency room, where labs showed white blood cells of 20,000, hemoglobin 10.9, platelets 467. Chemistry within normal. T he patient was admitted for presumed gastroenteritis. Currently the patient is continuing to have na usea. She is unable to keep anything down. She would like me to have ice chips. She denies any abd ominal pain. There was no diarrhea or black stools. She did not have any hemoptysis. No fever or c hills. She reported history of peptic ulcer disease. Review of Systems: Otherwise as below. Past Medical History: Significant for peptic ulcer disease and migraine. Allergies: TO CIPRO. Home Medication: Nexium. Past Surgical History: Tonsillectomy. Social History: She is . She has no kids. 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 She does smoke half pack a day for many years. Does not drink, only socially. Does not use any drugs. Family History: Father had lung cancer. He is alive. Mother alive and healthy. Review of Systems: Denies any fever, chills, night sweats, dizziness, lightheaded. She does have headache. There is no chest pain or abdominal pain. She does have nausea and vomiting. She did not have any diarrhea. D enies dysuria, frequency, urgency, hematuria. There is no loss of consciousness. There is no fall. There is no history of depression, anxiety, seizure or stroke. Physical Examination: Vital Signs: Blood pressure is 142/82, respiratory rate 18, pulse 72, temperature 98.6. This patien t is saturating 99% on room air. General: The patient is alert and oriented. Does not look in any distress. HEENT: Atraumatic, normocephalic. PERRLA. Oral mucosa is moist. Neck: Supple. No JVP. No carotid bruits. Chest: Clear to auscultation. Good air entry. Heart: Regular rate and rhythm. S1, S2 normal. No gallop or murmur. Abdomen: Soft, nontender. No masses. No hepatosplenomegaly. Positive bowel sounds. Extremities: No clubbing, no edema. No calf tenderness. Neurologic: Grossly intact. Cranial nerve exams 2 through 12 intact. Normal sensation. Normal refl exes. Normal muscle strength. Laboratory Data: Today showed CBC within normal except for white blood cells 20.2, hematocrit 33, MC V of 75. Chemistry within normal. Glucose 121. Amylase and lipase within normal. CAT scan of the abdomen done last night showed mild cecal inflammatory changes. Assessment And Plan: Ms. Pérez is a 27-year-old female with history of refractory nausea and vomi ting for the last 48 hours admitted with questionable colitis. 1.Acute colitis. We will continue patient on IV fluids, keep her n.p.o. I will continue IV antibio tic. The patient allergic to Cipro, so we will use Flagyl and ceftriaxone. Cultures are done in the emergency room. 2.Microcytic anemia. We will check stool occult blood and also check iron profile, patient may be i sarita deficient. 3.Symptomatic treatment for nausea with Zofran. 4.No deep vein thrombosis prophylaxis. The patient is active. 5.Symptomatic treatment for pain. JAQUELIN Voice ID: [id number]
[2017-12-24] MEDS ORDERED: PROCHLORPERAZINE PR PRN (15:58)
[2017-12-24] MEDS ORDERED: SODIUM CHLORIDE 0.9% 10ML INJ IV PRN (16:01)
[2017-12-24] MEDS: LORazepam 2 MG/ML VIAL IV PRN (17:01)
[2017-12-24] MEDS: PANTOPRAZOLE 40 MG INJ IVP SCH (17:01)
[2017-12-24] MEDS: METRONIDAZOLE 500mg IVPB 500 MG/100 ML BAG IV SCH (17:02)
[2017-12-24] MEDS: ONDANSETRON 4 MG/2 ML VIAL IV PRN (19:53)
[2017-12-24] MEDS: CEFTRIAXONE/SWI 1gm 1 GM/10 ML SYR IV SCH (20:04)
[2017-12-24] MEDS: PROMETHAZINE 25 MG/ML VIAL IV PRN (22:40)
[2017-12-25] MEDS: MORPHINE 4 MG/ML SYR IV PRN ×3 (00:04→13:14)
[2017-12-25] MEDS: METRONIDAZOLE 500mg IVPB 500 MG/100 ML BAG IV SCH ×3 (00:05→17:09)
[2017-12-25 04:57] LABS: Absolute Lymphocytes (CBC) 1.5 K/uL (0.7-4.9); Absolute Monocytes 1.1 K/uL (0.1-1.3); Absolute Neutrophil 14.5 K/uL (1.8-8.0); Basophils % 0.3 % (0-1.3); Eosinophils % 0.5 % (0-4.4); Hematocrit 29.4 % (36.0-45.0); Lymphocytes % 8.7 % (15.3-44.8); MCH 24.9 pg (27.0-35.0); MCV 75.3 fL (80-100); MPV 8.2 fL (7.6-11.3); Monocytes % 6.7 % (3.3-12.3)
[2017-12-25] MEDS: ONDANSETRON 4 MG/2 ML VIAL IV PRN ×3 (05:17→12:58)
[2017-12-25] MEDS: D5 0.45 NS 1,000 ML IV SCH ×3 (05:17→23:35)
[2017-12-25 05:18] LABS: ALT/SGPT 18 U/L (12-78); AST/SGOT 9 U/L (15-37); Albumin 3.4 g/dL (3.4-5.0); Alkaline Phosphatase 76 U/L (45-117); BUN Blood Urea Nitrogen 11 mg/dL (7-18); Bicarbonate 27 mmol/L (21-32); Bilirubin Direct < 0.1 mg/dL (0-0.2); Bilirubin Total 0.3 mg/dL (0.2-1.0); Glucose Level 127 mg/dL (74-106); Lipase 156 U/L (73-393); Potassium 3.3 mmol/L (3.5-5.1); Protein, Total 7.1 g/dL (6.4-8.2); Sodium Level 139 mmol/L (136-145)
[2017-12-25] MEDS: LORazepam 2 MG/ML VIAL IV PRN (05:46)
[2017-12-25] MEDS ORDERED: KCL 20 MEQ/100 mL IVPB 20 MEQ/100 ML BAG IV SCH (07:00)
[2017-12-25 07:33] LABS: Magnesium 2.2 mg/dL (1.8-2.4)
[2017-12-25] MEDS ORDERED: POTASSIUM CL 40 MEQ in NA CHLORIDE 0.9% 500 ML IV SCH (08:00)
[2017-12-25 09:13] VITALS: O2SAT 98
[2017-12-25] MEDS: KCL 20 MEQ/100 mL IVPB 20 MEQ/100 ML BAG IV SCH (09:22)
[2017-12-25] MEDS: CEFTRIAXONE/SWI 1gm 1 GM/10 ML SYR IV SCH ×2 (09:22→20:35)
[2017-12-25] MEDS: PANTOPRAZOLE 40 MG INJ IVP SCH ×2 (09:22→20:35)
[2017-12-25] MEDS: MAGNES/ALUMIN/SIMET 30ML UCUP PO SCH ×3 (11:55→23:35)
[2017-12-25] MEDS: PROMETHAZINE 25 MG/ML VIAL IV PRN (14:14)
--- NOTE | 2017-12-25 16:34 | PN ---
Subjective: Currently, the patient is lying in bed. She is sleeping, but she is stating that she co ntinued to have nausea and vomiting all over the night. She is not able to keep anything down. She continued to have some back and stomach pain. No fever, no chills overnight, no diarrhea. Objective: Vital Signs: Blood pressure 156/83, respiratory rate 18, pulse 66, temperature 98.9. Sh e is saturating 98% on room air. General: She is sleeping, but arousable. Does not look in any distress. HEENT: Atraumatic, normocephalic. PERRLA. Oral mucosa is moist. Neck: Supple. No JVD. No carotid bruits. Chest: Clear to auscultation. Good air entry. Heart: Regular rate and rhythm. S1, S2 normal. No gallop. Abdomen: Soft, nontender. No masses. No hepatosplenomegaly. Positive bowel sounds. Extremities: No clubbing, cyanosis, or edema. No calf tenderness. Neurologic: Grossly intact. Laboratory Data: Today showed white blood cells down from 20,000 to 17,000. The patient continued t o be anemic with hemoglobin dropped to 9.7, platelets 426. Chemistry within normal except for sodium of , glucose 127, calcium 8, iron low at 19, ferritin low at 30, globulin is 3.7. Urine c ulture was less than 10,000 colony, most likely contamination. Plan: This is a 27-year-old female, presented with intractable nausea, vomiting, found to have a mil d colitis on CT. 1.Acute colitis. Not much better. We will keep the patient n.p.o. for now and will continue for na usea and vomiting with Phenergan and Zofran. The pain is slightly better. The patient is drowsy. I will reduce morphine to 2 mg every 4 hours. The patient currently on antibiotic with ceftriaxone an d Flagyl. She is allergic to Cipro. We will continue that for now and will not advance diet. 2.Severe heartburn, although try Maalox if th patient can tolerate it and she does not vomit it. We will order every 6 hours. 3.Leukocytosis. White blood cells down from 20 to 17. No culture done in the emergency room. I wi ll proceed with blood culture today with most likely going to be negative as the patient on antibioti c. 4.Microcytic anemia. The patient has severe iron deficiency. She will need to start on iron tablet as outpatient 3 times a day with vitamin C or orange juice. Follow up with primary doctor. __ still pending. 5.We will hold off DVT prophylaxis. The patient is young and she can ambulate. PAULINE/LAVELLE Voice ID: [id number] Report ID: [id number]
[2017-12-26] MEDS: METRONIDAZOLE 500mg IVPB 500 MG/100 ML BAG IV SCH ×3 (00:05→16:43)
[2017-12-26] MEDS ORDERED: POTASSIUM 25 MEQ EFFERV TAB PO ONE (00:17)
[2017-12-26] MEDS: PROMETHAZINE 25 MG/ML VIAL IV PRN ×3 (00:59→16:57)
[2017-12-26] MEDS: MORPHINE 4 MG/ML SYR IV PRN ×2 (01:17→11:35)
[2017-12-26] MEDS: ONDANSETRON 4 MG/2 ML VIAL IV PRN ×2 (04:16→12:42)
[2017-12-26] MEDS: MAGNES/ALUMIN/SIMET 30ML UCUP PO SCH ×3 (05:53→16:46)
[2017-12-26 07:37] LABS: BUN Blood Urea Nitrogen 8 mg/dL (7-18); Bicarbonate 29 mmol/L (21-32); Glucose Level 119 mg/dL (74-106); Magnesium 2.2 mg/dL (1.8-2.4); Potassium 3.3 mmol/L (3.5-5.1); Sodium Level 140 mmol/L (136-145)
[2017-12-26] MEDS: D5 0.45 NS 1,000 ML IV SCH ×2 (08:25→16:41)
[2017-12-26] MEDS: PANTOPRAZOLE 40 MG INJ IVP SCH (08:27)
[2017-12-26] MEDS: CEFTRIAXONE/SWI 1gm 1 GM/10 ML SYR IV SCH (08:27)
[2017-12-26] MEDS: KCL 20 MEQ/100 mL IVPB 20 MEQ/100 ML BAG IV SCH ×2 (10:43→12:41)
[2017-12-26 11:57] LABS: Absolute Lymphocytes (CBC) 1.9 K/uL (0.7-4.9); Absolute Monocytes 0.9 K/uL (0.1-1.3); Absolute Neutrophil 7.1 K/uL (1.8-8.0); Basophils % 0.5 % (0-1.3); Eosinophils % 1.8 % (0-4.4); Hematocrit 34.3 % (36.0-45.0); MCH 24.6 pg (27.0-35.0); MCV 75.9 fL (80-100); MPV 8.4 fL (7.6-11.3); Monocytes % 8.7 % (3.3-12.3); RBC Red Blood Cell Count 4.51 M/uL (3.86-4.86)
[2017-12-26 16:17] VITALS: BP 123/84; TEMP 98.9
[2017-12-26] MEDS ORDERED: HOME MED 1 EA UNK (Esomeprazole Mag Trihydrate [Nexium] 40 MG) PO SCH (21:00)
--- NOTE | 2017-12-27 07:21 | DS ---
Date of Discharge: 12/26/2017 Admitting Diagnoses: 1.Intractable nausea and vomiting. 2.Acute colitis. 3.Microcytic anemia. Discharge Diagnoses: 1.Acute colitis, improved. 2.Intractable nausea and vomiting, resolving. 3.Microcytic anemia, stable. 4.History of peptic ulcer disease. 5.History of migraine headaches. Hospital Course: The patient is a 27-year-old female with history of peptic ulcer disease, migraines , comes in with nausea and vomiting. CT scan of the abdomen showed some very mild colitis in the cec um area and this was done in the ER previous to admission. She was sent home with oral antibiotics. However, patient could not tolerate any oral intake, therefore came back to the ER. Upon return, irish kay had an elevated white count of 20,000. Her chemistry was normal. She was started on IV fluids, IV antibiotics. Her condition improved. Her white count normalized. She did not have any further lef t shift. She does have some mild hypokalemia, which was corrected. She was noticed to be anemic and had microcytic anemia. Therefore, iron studies were done, which showed iron deficiency anemia with iron that is low. The patient currently menstruating. The patient was informed that she should be o n iron supplementation. Her blood cultures did not show any growth. Her urine cultures showed mixed kellee. The patient's condition improved. She was started on clear liquid diet which she tolerated well and was advanced to GI soft diet. The patient denies any further nausea or vomiting. The patie nt was then cleared for discharge and sent home in a stable condition. Activity: As tolerated. Medications: As per medication reconciliation list. Followup: Follow up with primary care physician in 2-3 days. Return to ER for worsening condition. Physical Examination: General: Awake, alert, oriented x3. No acute distress. CV: S1, S2. No murmurs. Respiratory: Clear to auscultation bilaterally. No wheezing. Gastrointestinal: Abdomen is soft, no ntender, nondistended. Positive bowel sounds. Extremities: No clubbing, cyanosis, edema. Neurologic: Nonfocal. SA/MODL Voice ID: [id number] Report ID: [id number]
== END 2017-12-26 18:02 | disposition home or self-care (01) ==
LOC: ER 06:01 → ERHOLD 07:45 → 2ND 11:12
PROVIDERS: ADMIT Internal Medicine; ATTEND Internal Medicine
DX: K52.9 Noninfective gastroenteritis and colitis, unspecified (principal); D50.9 Iron deficiency anemia, unspecified; Z87.11 Personal history of peptic ulcer disease; F17.210 Nicotine dependence, cigarettes, uncomplicated; Z88.0 Allergy status to penicillin
CPT/HCPCS: 36415; 80048; 80076; 81003; 81015; 82150; 82728; 83540; 83690; 83735; 84132; 84466; 85025; 87040; 87086; 87088; 96374; 96375; 99285; C9113; G0378; J0696; J2405; J2550; J2765; J7030

== ENCOUNTER 2018-03-11 07:35 | Emergency (ER) | payer SELFPAY ==
--- OUTSIDE RECORDS SUMMARY | 2018-03-11 07:37 | XMS REPORT | Clinical Summary ---
:1990 Author Organization [facility] Address [address] [place] [address] Care Team Providers Name Role Phone Jae [...] Team Description 05/07/2017 Anesthesia Event General Internal [facility], Medicine Estevan Hammonds MD 05/07/2017 Procedure Pass General Surgery 05/07/2017 Surgery General Surgery Ernie Galeana EGD WITH AMAYA Benitez MD USING COLD FORCEPS 05/07/2017 Procedure Pass Gastroenterology 05/04/2017 Hospital General Internal Brgeri, Kevin Tachycardia (Primary Dx); - Encounter Dyllan Irvin, MD Intractable vomiting with nausea, unspecified vomiting type; 05/07/2017 Perry, Cate; MD Mone Abdominal pain, acute, generalized; Leukocytosis, unspecified type; SIRS (systemic inflammatory response syndrome); PUD (peptic ulcer disease); Anxiety after 03/10/2017 Immunizations Name Dates Previously Given Next Due Pneumococcal Conjugate 13-Valent 05/06/2017 Social History Tobacco Use Types Packs/Day Years Used Date Never Assessed Sex Assigned at Date Recorded Not on file Last Filed Vital Signs Vital Sign Reading Time Taken Blood Pressure 108/66 05/07/2017 10:15 AM [facility] Pulse 73 05/07/2017 10:15 AM [facility] Temperature 36.8 C (98.3 F) 05/07/2017 9:45 AM [facility] Respiratory Rate 12 05/07/2017 10:15 AM [facility] Oxygen Saturation 100% 05/07/2017 10:15 AM [facility] Inhaled Oxygen Concentration - - Weight - - Height 162.6 cm (5' 4") 05/04/2017 11:45 AM [facility] Body Mass Index - - Plan of Treatment Health Maintenance Due Date Last Done Comments CERVICAL CANCER SCREENING 2010 INFLUENZA VACCINE 01/11/2018 Procedures Procedure Name Priority Date/Time Associated Comments Diagnosis SURGICAL PATHOLOGY Routine 05/07/2017 10:11 Results for this REQUEST AM [facility] procedure are in the results section. EGD WITH BIOPSY 05/07/2017 8:15 G.I BLEED AM [facility] ZZESTIMATED GFR Routine 05/07/2017 5:48 Results for this AM [facility] procedure are in the results section. TOTAL IRON BINDING Routine 05/07/2017 5:48 Results for this CAPACITY AM [facility] procedure are in the results section. PROTHROMBIN TIME WITH Routine 05/07/2017 5:48 Results for this INR AM [facility] procedure are in the results section. BASIC METABOLIC PANEL Routine 05/07/2017 5:48 Results for this AM [facility] procedure are in the results section. HC COMPLETE BLD COUNT Routine 05/07/2017 5:48 Results for this W/AUTO DIFF AM [facility] procedure are in the results section. ZZESTIMATED GFR Routine 05/06/2017 5:02 Results for this AM [facility] procedure are in the results section. COMPREHENSIVE Routine 05/06/2017 5:02 Results for this METABOLIC PANEL AM [facility] procedure are in the results section. CBC HEMOGRAM Routine 05/06/2017 5:02 Results for this AM [facility] procedure are in the results section. URINE DRUGS OF ABUSE Routine 05/05/2017 4:30 Results for this SCREEN PM [facility] procedure are in the results section. GASTRIN LEVEL Routine 05/05/2017 12:39 Results for this PM [facility] procedure are in the results section. ZZESTIMATED GFR Routine 05/05/2017 10:30 Results for this AM [facility] procedure are in the results section. COMPREHENSIVE Routine 05/05/2017 10:30 Results for this METABOLIC PANEL AM [facility] procedure are in the results section. HC COMPLETE BLD COUNT Routine 05/05/2017 10:30 Results for this W/AUTO DIFF AM [facility] procedure are in the results section. BLOOD CULTURE, AEROBIC Routine 05/04/2017 4:59 Results for this & ANAEROBIC PM [facility] procedure are in the results section. BLOOD CULTURE, AEROBIC Routine 05/04/2017 4:56 Results for this & ANAEROBIC PM [facility] procedure are in the results section. CT ABDOMEN PELVIS W STAT 05/04/2017 4:38 Results for this CONTRAST PM [facility] procedure are in the results section. XR CHEST 2 VW STAT 05/04/2017 2:59 Results for this PM [facility] procedure are in the results section. US GALLBLADDER STAT 05/04/2017 1:49 Results for this PM [facility] procedure are in the results section. HCG QUALITATIVE, URINE STAT 05/04/2017 12:17 Results for this SCREEN PM [facility] procedure are in the results section. URINALYSIS SCREEN AND STAT 05/04/2017 12:17 Results for this MICROSCOPY, WITH PM [facility] procedure are in REFLEX TO CULTURE the results section. URINE CULTURE STAT 05/04/2017 12:17 Results for this PM [facility] procedure are in the results section. HC COMPLETE BLD COUNT STAT 05/04/2017 11:59 Results for this W/AUTO DIFF AM [facility] procedure are in the results section. LIPASE LEVEL STAT 05/04/2017 11:48 Results for this AM [facility] procedure are in the results section. ZZESTIMATED GFR STAT 05/04/2017 11:48 Results for this AM [facility] procedure are in the results section. COMPREHENSIVE STAT 05/04/2017 11:48 Results for this METABOLIC PANEL AM [facility] procedure are in the results section. after 03/10/2017 Results Surgical pathology request (05/07/2017 10:11 AM) [facility] DEPARTMENT OF PATHOLOGY AND GENOMIC MEDICINE Surgical pathology report See link below for PDF [facility] DEPARTMENT OF Lab Report PATHOLOGY AND GENOMIC MEDICINE Result status This is Final Report to [facility] DEPARTMENT OF [id number] PATHOLOGY AND GENOMIC MEDICINE Performing Organization Address City/[facility] Phone Number [facility] DEPARTMENT OF PATHOLOGY AND [address] [place] [address] [facility] Total iron binding capacity (05/07/2017 5:48 AM) Iron level 12 (L) 37 - 145 ug/dL [facility] DEPARTMENT OF PATHOLOGY AND GENOMIC MEDICINE Iron binding capacity 367 200 - 400 ug/dL [facility] DEPARTMENT OF PATHOLOGY AND GENOMIC MEDICINE % Saturation 3.3 (L) 15.0 - 38.0 % [facility] DEPARTMENT OF PATHOLOGY AND GENOMIC MEDICINE Specimen Plasma specimen Performing Organization Address City/[facility] Phone Number [facility] PATHOLOGY AND [address] [place] [address] [facility] Estimated GFR (05/07/2017 5:48 AM)Only the most recent of4 resultswithin the time period is included. GFR Non Af Amer >90 mL/min/1.73 m2 [facility] DEPARTMENT OF PATHOLOGY AND GENOMIC MEDICINE GFR Af Amer >90 mL/min/1.73 m2 [facility] DEPARTMENT OF Comment: PATHOLOGY AND GENOMIC Chronic kidney disease: <60 mL/min/1.73m2 MEDICINE Kidney [...] Americans. Specimen Plasma specimen Performing Organization Address City/State/[facility] Phone Number [facility] DEPARTMENT OF PATHOLOGY AND [address] [place] [address] [facility] Prothrombin time with INR (05/07/2017 5:48 AM) Prothrombin time 13.5 12.0 - 15.0 sec [facility] DEPARTMENT OF PATHOLOGY AND GENOMIC MEDICINE INR 1.0 [facility] DEPARTMENT OF Comment: PATHOLOGY AND GENOMIC The International Normalized Ratio (INR) is a therapeutic MEDICINE monitoring tool for patients who are stable on oral anticoagulant therapy. An INR of 2.0-3.0 is suggested for deep vein thrombosis/pulmonary embolism. Specimen Blood Performing Organization Address City/[facility]/Zipcode Phone Number [facility] DEPARTMENT PATHOLOGY AND [address] [place] [address] [email or web address] [place] CBC with platelet and differential (05/07/2017 5:48 AM)Only the most recent of3 resultswithin the time period is included. WBC 8.17 4.50 - 11.00 k/uL [facility] DEPARTMENT OF PATHOLOGY AND GENOMIC MEDICINE RBC 3.51 (L) 4.20 - 5.50 m/uL [facility] DEPARTMENT OF PATHOLOGY AND GENOMIC MEDICINE HGB 7.9 (L) 12.0 - 16.0 g/dL [facility] DEPARTMENT OF PATHOLOGY AND GENOMIC MEDICINE HCT 27.2 (L) 37.0 - 47.0 % [facility] DEPARTMENT OF PATHOLOGY AND GENOMIC MEDICINE MCV 77.5 (L) 82.0 - 100.0 fL [facility] DEPARTMENT OF PATHOLOGY AND GENOMIC MEDICINE MCH 22.5 (L) 27.0 - 34.0 pg [facility] DEPARTMENT OF PATHOLOGY AND GENOMIC MEDICINE MCHC 29.0 (L) 31.0 - 37.0 g/dL [facility] DEPARTMENT OF PATHOLOGY AND GENOMIC MEDICINE RDW - SD 48.6 37.0 - 55.0 fL [facility] DEPARTMENT OF PATHOLOGY AND GENOMIC MEDICINE MPV 10.2 8.8 - 13.2 fL [facility] DEPARTMENT OF PATHOLOGY AND GENOMIC MEDICINE Platelet count 411 (H) 150 - 400 k/uL [facility] DEPARTMENT OF PATHOLOGY AND GENOMIC MEDICINE Nucleated RBC 0.00 /100 WBC [facility] DEPARTMENT OF PATHOLOGY AND GENOMIC MEDICINE Neutrophils 53.3 39.0 - 69.0 % [facility] DEPARTMENT OF PATHOLOGY AND GENOMIC MEDICINE Lymphocytes 30.1 25.0 - 45.0 % [facility] DEPARTMENT OF PATHOLOGY AND GENOMIC MEDICINE Monocytes 10.3 (H) 0.0 - 10.0 % [facility] DEPARTMENT OF PATHOLOGY AND GENOMIC MEDICINE Eosinophils 5.6 (H) 0.0 - 5.0 % [facility] DEPARTMENT OF PATHOLOGY AND GENOMIC MEDICINE Basophils 0.6 0.0 - 1.0 % [facility] DEPARTMENT OF PATHOLOGY AND GENOMIC MEDICINE Immature granulocytes 0.1Comment: 0.0 - 1.0 % [facility] DEPARTMENT OF "Immature PATHOLOGY AND GENOMIC granulocytes" MEDICINE (promyelocytes, myelocytes, metamyelocytes) Specimen Blood Performing Organization Address City/[facility]/Zipcode Phone Number [facility] DEPARTMENT OF PATHOLOGY AND [address] [place] [address] [email or web address] [place] Basic metabolic panel (05/07/2017 5:48 AM) Sodium 137 135 - 148 mEq/L [facility] DEPARTMENT OF PATHOLOGY AND GENOMIC MEDICINE Potassium 4.2 3.5 - 5.0 mEq/L [facility] DEPARTMENT OF PATHOLOGY AND GENOMIC MEDICINE Chloride 100 98 - 112 mEq/L [facility] DEPARTMENT OF PATHOLOGY AND GENOMIC MEDICINE CO2 24 24 - 31 mEq/L [facility] DEPARTMENT OF PATHOLOGY AND GENOMIC MEDICINE Anion gap 13 7 - 15 mEq/L [facility] DEPARTMENT OF PATHOLOGY Comment: AND GENOMIC [place] Starting from September , anion gap calculation no longer incorporates potassium. Please note the change. BUN 6 6 - 20 mg/dL [facility] DEPARTMENT OF PATHOLOGY AND GENOMIC MEDICINE Creatinine 0.7 0.5 - 0.9 mg/dL [facility] DEPARTMENT OF PATHOLOGY AND GENOMIC MEDICINE Glucose 93 65 - 99 mg/dL [facility] DEPARTMENT OF PATHOLOGY AND GENOMIC MEDICINE Calcium 8.8 8.3 - 10.2 mg/dL [facility] DEPARTMENT OF PATHOLOGY AND GENOMIC MEDICINE Specimen Plasma specimen Performing Organization Address City/State/[facility] Hospitalconv Phone Number [facility] OF PATHOLOGY AND [address] [place] [address] CBC hemogram (05/06/2017 5:02 AM) WBC 8.66 4.50 - 11.00 k/uL [facility] DEPARTMENT OF PATHOLOGY AND GENOMIC MEDICINE RBC 3.28 (L) 4.20 - 5.50 m/uL [facility] DEPARTMENT OF PATHOLOGY AND GENOMIC MEDICINE HGB 7.6 (L) 12.0 - 16.0 g/dL [facility] DEPARTMENT OF PATHOLOGY AND GENOMIC MEDICINE HCT 25.6 (L) 37.0 - 47.0 % [facility] DEPARTMENT OF PATHOLOGY AND GENOMIC MEDICINE MCV 78.0 (L) 82.0 - 100.0 fL [facility] DEPARTMENT OF PATHOLOGY AND GENOMIC MEDICINE MCH 23.2 (L) 27.0 - 34.0 pg [facility] DEPARTMENT OF PATHOLOGY AND GENOMIC MEDICINE MCHC 29.7 (L) 31.0 - 37.0 g/dL [facility] DEPARTMENT OF PATHOLOGY AND GENOMIC MEDICINE RDW - SD 49.4 37.0 - 55.0 fL [facility] DEPARTMENT OF PATHOLOGY AND GENOMIC MEDICINE MPV 9.9 8.8 - 13.2 fL [facility] DEPARTMENT OF PATHOLOGY AND GENOMIC MEDICINE Platelet count 390 150 - 400 k/uL [facility] DEPARTMENT OF PATHOLOGY AND GENOMIC MEDICINE Nucleated RBC 0.20 /100 WBC [facility] DEPARTMENT OF PATHOLOGY AND GENOMIC MEDICINE Specimen Blood Performing Organization Address City/State/Zipcode Phone Number [facility] DEPARTMENT OF PATHOLOGY AND [address] [place] [address] GENOMIC MEDICINE Comprehensive metabolic panel (05/06/2017 5:02 AM)Only the most recent of3 resultswithin the time period is included. Sodium 136 135 - 148 mEq/L [facility] DEPARTMENT OF PATHOLOGY AND GENOMIC MEDICINE Potassium 4.1 3.5 - 5.0 mEq/L [facility] DEPARTMENT OF PATHOLOGY AND GENOMIC MEDICINE Chloride 100 98 - 112 mEq/L [facility] DEPARTMENT OF PATHOLOGY AND GENOMIC MEDICINE CO2 23 (L) 24 - 31 mEq/L [facility] DEPARTMENT OF PATHOLOGY AND GENOMIC MEDICINE Anion gap 13 7 - 15 mEq/L [facility] DEPARTMENT OF Comment: PATHOLOGY AND GENOMIC Starting from September , anion gap calculation MEDICINE no longer incorporates potassium. Please note the change. BUN 7 6 - 20 mg/dL [facility] DEPARTMENT OF PATHOLOGY AND GENOMIC MEDICINE Creatinine 0.7 0.5 - 0.9 mg/dL [facility] DEPARTMENT OF PATHOLOGY AND GENOMIC MEDICINE Glucose 90 65 - 99 mg/dL [facility] DEPARTMENT OF PATHOLOGY AND GENOMIC MEDICINE Calcium 8.4 8.3 - 10.2 mg/dL [facility] DEPARTMENT OF PATHOLOGY AND GENOMIC MEDICINE Protein 6.1 (L) 6.3 - 8.3 g/dL [facility] DEPARTMENT OF Comment: PATHOLOGY AND GENOMIC 4.6-7.0 g/dL MEDICINE 1 week 4.4-7.6 g/dL 7 months-1year5.1-7.3 g/dL 1-2 years5.6-7.5 g/dL >3 years6.0-8.0 g/dL 18-150 6.3-8.3 g/dL Albumin 2.9 (L) 3.5 - 5.0 g/dL [facility] DEPARTMENT OF PATHOLOGY AND GENOMIC MEDICINE A/G ratio 0.9 0.7 - 3.8 [facility] DEPARTMENT OF PATHOLOGY AND GENOMIC MEDICINE Alkaline phosphatase 58 35 - 104 U/L [facility] DEPARTMENT OF PATHOLOGY AND GENOMIC MEDICINE AST 17 10 - 35 U/L [facility] DEPARTMENT OF PATHOLOGY AND GENOMIC MEDICINE ALT 16 5 - 50 U/L [facility] DEPARTMENT OF PATHOLOGY AND GENOMIC MEDICINE Total bilirubin <0.2 0.0 - 1.2 mg/dL [facility] DEPARTMENT OF PATHOLOGY AND GENOMIC MEDICINE Specimen Plasma specimen Performing Organization Address City/[facility] Phone Number [facility] DEPARTMENT OF PATHOLOGY AND [address] [place] [address] [facility] Urine drugs of abuse screen (05/05/2017 4:30 PM) Amphetamine screen, urine Negative [facility] DEPARTMENT OF PATHOLOGY AND GENOMIC MEDICINE Barbiturate screen, urine Negative [facility] DEPARTMENT OF PATHOLOGY AND GENOMIC MEDICINE Benzodiazepine screen, Negative [facility] DEPARTMENT OF urine PATHOLOGY AND GENOMIC MEDICINE Cannabinoid screen, urine Positive (A) [facility] DEPARTMENT OF PATHOLOGY AND GENOMIC MEDICINE Cocaine screen, urine Negative [facility] DEPARTMENT OF PATHOLOGY AND GENOMIC MEDICINE Methadone metabolite Negative [facility] DEPARTMENT OF (EDDP), urine PATHOLOGY AND GENOMIC MEDICINE Opiates screen, urine Positive (A) [facility] DEPARTMENT OF PATHOLOGY AND GENOMIC MEDICINE Oxycodone screen, urine Negative [facility] DEPARTMENT OF PATHOLOGY AND GENOMIC MEDICINE Phencyclidine screen, urine Negative [facility] DEPARTMENT OF PATHOLOGY AND GENOMIC MEDICINE Tricyclic screen, urine Negative [facility] DEPARTMENT OF Comment: PATHOLOGY AND GENOMIC Drug screen minimum concentration of detectability MEDICINE Ulwmchyahdlw2949 ng/mL Barbiturates 200 ng/mL Iqykiechbgfinmu783 ng/mL Vmddfwr976 ng/mL Xusspjrsv040 ng/mL Rmxosdh630 ng/mL Ftycqwpcv672 ng/mL Phencyclidine 25 ng/mL Tkfqhpcuwjvy91 ng/mL Qrcjmaboyd0743 ng/mL Negative test results indicates presumptive evidence of lack of clinically significant drug concentration in this urine specimen. Positive test results are presumptive evidence of clinically significant drug concentration in this urine specimen. Testing performed for medical purposes only. Specimen Urine Performing Organization Address [facility] Phone Number [facility] DEPARTMENT OF PATHOLOGY AND [address] [place] [address] [facility] MEDICINE Gastrin level (05/05/2017 12:39 PM) Gastrin 136 (H) 0 - 100 pg/mL [facility] Comment: Performed by [employer], [address] [place], [place] [id number] [email or web address], Tai Paz MD - Lab. Director Specimen Serum Performing Organization Address [facility] Phone Number [facility] [address] [place] [address] Blood culture, aerobic & anaerobic (05/04/2017 4:59 PM)Only the most recent of2 resultswithin the time period is included. Blood culture isolate No growth after 5 days of incubation. [facility] DEPARTMENT OF Comment: PATHOLOGY AND GENOMIC Specimen Information MEDICINE Specimen Source: Blood Specimen Site: Wrist, left Specimen Blood - Wrist, left Performing Organization Address [facility] Phone Number [facility] DEPARTMENT OF PATHOLOGY AND [address] [place] [address] Abdomen Pelvis W Contrast [...] in the pelvis. IMPRESSION: No acute abnormality. [facility]-[id number] Procedure Note Interface, Radiology Results [facility] - 05/04/2017 4:46 PM [facility] EXAMINATION: CT ABDOMEN PELVIS W CONTRAST CLINICAL [...] in the pelvis. IMPRESSION: No acute abnormality. [facility]-[id number] Performing Organization Address [facility]/Zipcode Phone Number [facility] [address] [place] [address] XR Chest 2 Vw (05/04/2017 2:59 PM) Narrative Performed At EXAMINATION:XR CHEST 2 VW [facility] CLINICAL HISTORY:Pneumonia COMPARISON:None. IMPRESSION: Frontal and lateral views reveal a normal cardiomediastinal silhouette. Lungs are clear. Pleural margins are sharp. The remainder of the examination is unremarkable. [facility]-[id number] Procedure Note Hm Interface, Radiology Results Incoming - 05/04/2017 3:04 PM [facility] EXAMINATION: XR CHEST 2 VW CLINICAL HISTORY: Pneumonia COMPARISON: None. IMPRESSION: Frontal and lateral views reveal a normal cardiomediastinal silhouette. Lungs are clear. Pleural margins are sharp. The remainder of the examination is unremarkable. [facility]-[id number] Performing Organization Address [facility] Phone Number [facility] [address] [place] [address] [place] Gallbladder (05/04/2017 1:49 PM) Narrative Performed At EXAMINATION:US GALLBLADDER [facility] CLINICAL HISTORY:Cholecystitis COMPARISON:Gallbladder ultrasound from 01/18/2012 [...] within the portal vein measures 45 cm/s. [facility]-[id number] Procedure Note [facility], Radiology Results Incoming - 05/04/2017 1:55 PM [facility] EXAMINATION: US GALLBLADDER CLINICAL HISTORY:Cholecystitis COMPARISON: Gallbladder [...] within the portal vein measures 45 cm/s. [facility]-[id number] Performing Organization Address [facility]conv Phone Number [facility] [address] [place] [address] Urinalysis screen and microscopy, with reflex to culture (05/04/2017 12:17 PM) Specimen site Clean catch [facility] DEPARTMENT OF PATHOLOGY AND GENOMIC MEDICINE Color, UA Straw [facility] DEPARTMENT OF PATHOLOGY AND GENOMIC MEDICINE Appearance, UA Clear [facility] DEPARTMENT OF PATHOLOGY AND GENOMIC MEDICINE Specific gravity, UA 1.014 1.001 - 1.035 [facility] DEPARTMENT OF PATHOLOGY AND GENOMIC MEDICINE pH, UA 6.0 5.0 - 8.5 [facility] DEPARTMENT OF PATHOLOGY AND GENOMIC MEDICINE Protein, UA Negative Negative [facility] DEPARTMENT OF PATHOLOGY AND GENOMIC MEDICINE Glucose, UA Negative Negative [facility] DEPARTMENT OF PATHOLOGY AND GENOMIC MEDICINE Ketones, UA 1+ (A) Negative [facility] DEPARTMENT OF PATHOLOGY AND GENOMIC MEDICINE Bilirubin, UA Negative Negative [facility] DEPARTMENT OF PATHOLOGY AND GENOMIC MEDICINE Blood, UA Negative Negative [facility] DEPARTMENT OF PATHOLOGY AND GENOMIC MEDICINE Nitrite, UA Negative Negative [facility] DEPARTMENT OF PATHOLOGY AND GENOMIC MEDICINE Urobilinogen, UA <2.0 <2.0 [facility] DEPARTMENT OF PATHOLOGY AND GENOMIC MEDICINE Leukocyte esterase, UA Negative Negative [facility] DEPARTMENT OF PATHOLOGY AND GENOMIC MEDICINE Epithelial cells, UA 7 /HPF [facility] DEPARTMENT OF PATHOLOGY AND GENOMIC MEDICINE WBC, UA 1 0 - 4 /HPF [facility] DEPARTMENT OF PATHOLOGY AND GENOMIC MEDICINE RBC, UA 1 0 - 2 /HPF [facility] DEPARTMENT OF PATHOLOGY AND GENOMIC MEDICINE Bacteria, UA Few None seen [facility] DEPARTMENT OF PATHOLOGY AND GENOMIC MEDICINE Yeast, UA None seen [facility] DEPARTMENT OF PATHOLOGY AND GENOMIC MEDICINE Yeast with pseudohyphae, UA None seen [facility] DEPARTMENT OF PATHOLOGY AND GENOMIC MEDICINE Specimen Urine Performing Organization Address City/[facility] Phone Number [facility] DEPARTMENT OF PATHOLOGY AND [address] [place] [address] hCG qualitative, urine screen (05/04/2017 12:17 PM) hCG qualitative, urine NegativeComment: [facility] DEPARTMENT OF Sensitivity of HCG test: 25 PATHOLOGY AND GENOMIC mIU/mL MEDICINE Specimen Urine Performing Organization Address City/[facility] Phone Number [facility] DEPARTMENT OF PATHOLOGY AND [address] [place], [place] [id number] [facility] Urine culture (05/04/2017 12:17 PM) Urine culture SEE COMMENTComment: Bacteriuria [facility] DEPARTMENT OF PATHOLOGY screen negative. AND GENOMIC MEDICINE Performing Organization Address City/[facility] Phone Number [facility] DEPARTMENT OF PATHOLOGY AND [address] [place] [address] Lipase level (05/04/2017 11:48 AM) Lipase 35 13 - 60 U/L [facility] DEPARTMENT OF PATHOLOGY AND GENOMIC MEDICINE Specimen Plasma specimen Performing Organization Address City/[facility] Phone Number [facility] DEPARTMENT OF PATHOLOGY AND [address] [place] [address] after 03/10/2017 Insurance Payer Benefit Plan / Group Subscriber ID Type Phone Address BCBS BCBS CHOICE PPO/[employer] PPO xxxxxxxxxxxx PPO [id number] [phone] [facility] [address] [place] [address]
[2018-03-11] MEDS ORDERED: ONDANSETRON 4 MG (ODT) TAB ONE (07:57)
[2018-03-11 08:11] LABS: Urine Blood NEGATIVE (NEG); Urine Glucose NEGATIVE (NEG); Urine Protein NEGATIVE (NEG); Urine pH 7.5 (5.0-7.0)
[2018-03-11 08:25] LABS: Urine Bacteria <20 /HPF (<20); Urine Culture Reflex Order NOT NEEDED; Urine RBC NONE SEEN /HPF (NONE SEEN)
[2018-03-11] MEDS ORDERED: ONDANSETRON 4 MG/2 ML VIAL ONE (08:34)
[2018-03-11] MEDS ORDERED: NA CHLORIDE 0.9% 1,000 ML ONE (08:34)
[2018-03-11 09:06] LABS: ALT/SGPT 45 U/L (12-78); AST/SGOT 24 U/L (15-37); Albumin 4.1 g/dL (3.4-5.0); Alkaline Phosphatase 86 U/L (45-117); BUN Blood Urea Nitrogen 10 mg/dL (7-18); Bicarbonate 24 mmol/L (21-32); Bilirubin Direct 0.1 mg/dL (0-0.2); Bilirubin Total 0.5 mg/dL (0.2-1.0); Glucose Level 106 mg/dL (74-106); Lipase 186 U/L (73-393); Potassium 3.9 mmol/L (3.5-5.1); Sodium Level 136 mmol/L (136-145)
[2018-03-11 09:10] LABS: Absolute Lymphocytes (CBC) 1.6 K/uL (0.7-4.9); Absolute Monocytes 0.6 K/uL (0.1-1.3); Absolute Neutrophil 8.9 K/uL (1.8-8.0); Basophils % 0.2 % (0-1.3); Hematocrit 33.1 % (36.0-45.0); Lymphocytes % 13.9 % (15.3-44.8); MCH 24.2 pg (27.0-35.0); MCV 74.6 fL (80-100); MPV 7.9 fL (7.6-11.3); Monocytes % 5.4 % (3.3-12.3); RBC Red Blood Cell Count 4.43 M/uL (3.86-4.86)
[2018-03-11] MEDS ORDERED: KETOROLAC 30 MG/ML INJ ONE (09:30)
[2018-03-11] MEDS ORDERED: FAMOTIDINE 20 MG/2 ML VIAL IV ONE (09:57)
[2018-03-11] MEDS ORDERED: METOCLOPRAMIDE 10 MG/2mL INJ ONE (10:14)
--- NOTE | 2018-03-11 10:24 | RAD REPORT ---
EXAM DESCRIPTION: RAD - Abdomen Acute Series - 03/11/2018 10:16 am CLINICAL HISTORY: Vomiting, abdominal pain, shortness of breath COMPARISON: Chest exam October 2016, CT abdomen December 2017 FINDINGS: Lungs are clear. Heart size and pulmonary vasculature are normal. No pleural effusion, pne umothorax or other acute cardiopulmonary process seen. Bowel gas pattern is nonspecific. No bowel obstruction, free air or other acute findings. Moderate st ool volume is present in nondilated colon. No gastric dilatation. There are no suspicious calcificati ons seen. No other suspicious for significant findings. IMPRESSION: Negative acute abdomen series for acute or significant finding.
--- NOTE | 2018-03-11 10:59 | ER ---
Nurse's Notes [facility] Name: Jaye Pérez Age: 28 yrs Sex: Female : 1990 Arrival Date: 03/11/2018 Time: 07:38 Bed 19 Private MD: Diana Linton K Diagnosis: Nausea and vomiting Presentation: 03/11 07:47 Presenting complaint: Patient states: two teeth pulled 4 days ago and given ss amoxicillin, Tylenol #3 and ibuprofen. Patient reports since yesterday she feels like the medication is making her vomit. She is just wanting something to help her keep the medication down so that she can get some pain relief. Transition of care: patient was not received from another setting of care. Onset of symptoms was March 10, 2018. Risk Assessment: Do you want to hurt yourself or someone else? Patient reports no desire to harm self or others. Initial Sepsis Screen: Does the patient meet any 2 criteria? No. Patient's initial sepsis screen is negative. Does the patient have a suspected source of infection? No. Patient's initial sepsis screen is negative. Care prior to arrival: None. 07:47 Method Of Arrival: Ambulatory ss 07:47 Acuity: JEREMIAH 5 ss Historical: - Allergies: 07:49 Cipro (Upset stomach); ss - PMHx: 07:49 GERD; PUD; ss - PSHx: 07:49 Tonsillectomy; ss - Immunization history:: Flu vaccine is not up to date. - Ebola Screening: : Patient denies exposure to infectious person Patient denies travel to an Ebola-affected area in the 21 days before illness onset. - Social history:: Smoking status: Patient/guardian denies using tobacco. Screenin:57 Abuse screen: Denies threats or abuse. Nutritional screening: No deficits noted. em Tuberculosis screening: No symptoms or risk factors identified. Fall Risk None identified. Assessment: 08:00 General: Appears in no apparent distress. comfortable, Behavior is calm, cooperative, em Reports fever for 12-24 hours. Pain: Complains of pain in face Pain currently is 3 out of 10 on a pain scale. Neuro: Level of Consciousness is awake, alert, obeys commands, Oriented to person, place, time, situation. Cardiovascular: Capillary refill < 3 seconds Patient's skin is warm and dry. Respiratory: Airway is patent Respiratory effort is even, unlabored, Respiratory pattern is regular, symmetrical. GI: Abdomen is flat, Reports nausea, vomiting, Patient currently denies abdominal pain. : No signs and/or symptoms were reported regarding the genitourinary system. EENT: Poor dentition noted. Reports teeth pulled 4 days ago. Derm: Skin is intact, Skin is pink, warm \T\ dry. Musculoskeletal: Range of motion: intact in all extremities. 08:24 Reassessment: Patient appears in no apparent distress at this time. Patient and/or em family updated on plan of care and expected duration. Pain level reassessed. Patient is alert, oriented x 3, equal unlabored respirations, skin warm/dry/pink. given water for PO challenge, pt unable to tolerate fluids, provider notified. 09:21 Reassessment: Patient appears in no apparent distress at this time. Patient and/or em family updated on plan of care and expected duration. Pain level reassessed. Patient is alert, oriented x 3, equal unlabored respirations, skin warm/dry/pink. Patient states feeling better. 09:25 Reassessment: pt request pain medication for facial pain, provider notified, new em medication orders received. 09:50 Reassessment: Patient appears in no apparent distress at this time. Patient and/or em family updated on plan of care and expected duration. Pain level reassessed. Patient is alert, oriented x 3, equal unlabored respirations, skin warm/dry/pink. pt vomited again, provider notified. 10:30 Reassessment: Patient appears in no apparent distress at this time. Patient and/or em family updated on plan of care and expected duration. Pain level reassessed. Patient is alert, oriented x 3, equal unlabored respirations, skin warm/dry/pink. vomiting has decreased but still feels nauseous, provider at bedside. Vital Signs: 07:49 BP 124 / 63; Pulse 70; Resp 15; Temp 98.4(TE); Pulse Ox 100% on R/A; em 08:55 BP 118 / 68; Pulse 67; Resp 18; Pulse Ox 100% on R/A; Pain 3/10; em 09:21 BP 109 / 71; Pulse 70; Resp 18; Pulse Ox 100% on R/A; Pain 6/10; em 10:22 BP 107 / 64; Pulse 79; Resp 17; Pulse Ox 99% ; mh5 11:20 BP 124 / 81; Pulse 74; Resp 18; Pulse Ox 99% on R/A; em ED Course: 07:38 Patient arrived in ED. mr 07:38 Diana Linton MD is Private Physician. mr 07:43 Parker Roberts MD is Attending Physician. gs 07:49 Triage completed. ss 07:49 Arm band placed on right wrist. ss 07:57 Hunter Gudino LVN is Primary Nurse. em 07:57 Patient has correct armband on for positive identification. Bed in low position. Call em light in reach. 07:57 No provider procedures requiring assistance completed. em 08:44 Initial lab(s) drawn, by me, sent to lab. Inserted saline lock: 20 gauge in right em forearm, using aseptic technique. Blood collected. 10:12 Abdomen Acute Series XRAY In Process Unspecified. EDMS 11:19 IV discontinued, intact, bleeding controlled, No redness/swelling at site. Pressure em dressing applied. Administered Medications: 07:58 Drug: Zofran 4 mg Route: PO; em 08:30 Follow up: Response: No adverse reaction; Nausea unchanged em 08:42 Drug: NS 0.9% 1000 ml Route: IV; Rate: 1 bolus; Site: right forearm; em 09:19 Follow up: IV Status: Completed infusion; IV Intake: 1000ml em 08:46 Drug: Zofran 4 mg Route: IVP; Site: right forearm; ss 09:19 Follow up: Response: No adverse reaction; Nausea is decreased; Vomiting decreased em 09:29 Drug: TORadol 15 mg Route: IVP; Site: right forearm; ss 10:13 Follow up: Response: No adverse reaction; Pain is decreased em 10:25 Drug: Pepcid 20 mg Route: IVP; Site: right forearm; ss 10:47 Follow up: Response: No adverse reaction em 10:26 Drug: Reglan 10 mg Route: IVP; Site: right forearm; ss 10:48 Follow up: Response: No adverse reaction em Intake: 09:19 IV: 1000ml; Total: 1000ml. em Outcome: 10:58 Discharge ordered by . gs 11:19 Discharged to home ambulatory. em 11:19 Condition: good 11:19 Discharge instructions given to patient, Instructed on discharge instructions, follow up and referral plans. medication usage, Demonstrated understanding of instructions, follow-up care, medications, Prescriptions given X 3. 11:22 Patient left the ED. em Signatures: Dispatcher [employer] Radha Tian Shahab, Hunter, PUMP SERVICER HELPER PUMP SERVICER HELPER em Sandra Ellis, MARCIA RN Radha Lara 5 Parker Roberts MD MD gs Corrections: (The following items were deleted from the chart) 08:00 07:49 Pulse 70bpm; Resp 15bpm; Pulse Ox 100% RA; Temp 98.4F Temporal; ss em
--- NOTE | 2018-03-11 10:59 | EDPHYS ---
Physician Documentation [facility] Name: Jaye Pérez Age: 28 yrs Sex: Female : 1990 Arrival Date: 03/11/2018 Time: 07:38 Bed 19 Private MD: Diana Linton K ED Physician Parker Roberts HPI: 03/11 10:50 This 28 yrs old Female presents to ER via Ambulatory with complaints of gs Vomiting. 10:50 The patient presents to the emergency department with nausea, vomiting. Onset: The gs symptoms/episode began/occurred yesterday. Possible causes: antibiotics, penicillin, amoxicillin. The symptoms are aggravated by nothing. The symptoms are alleviated by nothing. Associated signs and symptoms: Pertinent negatives: diarrhea, fever. Severity of symptoms: At their worst the symptoms were moderate in the emergency department the symptoms have improved moderately. The patient has experienced similar episodes in the past, a few times. Historical: - Allergies: 07:49 Cipro (Upset stomach); ss - PMHx: 07:49 GERD; PUD; ss - PSHx: 07:49 Tonsillectomy; ss - Immunization history:: Flu vaccine is not up to date. - Ebola Screening: : Patient denies exposure to infectious person Patient denies travel to an Ebola-affected area in the 21 days before illness onset. - Social history:: Smoking status: Patient/guardian denies using tobacco. ROS: 10:50 All other systems are negative. gs Exam: 10:50 Eyes: Pupils equal round and reactive to light, extra-ocular motions intact. Lids and gs lashes normal. Conjunctiva and sclera are non-icteric and not injected. Cornea within normal limits. Periorbital areas with no swelling, redness, or edema. Neck: Trachea midline, no thyromegaly or masses palpated, and no cervical lymphadenopathy. Supple, full range of motion without nuchal rigidity, or vertebral point tenderness. No Meningismus. Chest/axilla: Normal chest wall appearance and motion. Nontender with no deformity. No lesions are appreciated. Cardiovascular: Regular rate and rhythm with a normal S1 and S2. No gallops, murmurs, or rubs. Normal PMI, no JVD. No pulse deficits. 10:50 Respiratory: Lungs have equal breath sounds bilaterally, clear to auscultation and percussion. No rales, rhonchi or wheezes noted. No increased work of breathing, no retractions or nasal flaring. Abdomen/GI: Soft, non-tender, with normal bowel sounds. No distension or tympany. No guarding or rebound. No evidence of tenderness throughout. Back: No spinal tenderness. No costovertebral tenderness. Full range of motion. Female : Normal external genitalia. Skin: Warm, dry with normal turgor. Normal color with no rashes, no lesions, and no evidence of cellulitis. MS/ Extremity: Pulses equal, no cyanosis. Neurovascular intact. Full, normal range of motion. Neuro: Awake and alert, GCS 15, oriented to person, place, time, and situation. Cranial nerves II-XII grossly intact. Motor strength 5/5 in all extremities. Sensory grossly intact. Cerebellar exam normal. Normal gait. 10:50 Constitutional: The patient appears alert, awake. 10:50 Head/face: Exam is negative for swelling. 10:50 ENT: Dental exam: dental caries, that is moderate, diffusely. Vital Signs: 07:49 BP 124 / 63; Pulse 70; Resp 15; Temp 98.4(TE); Pulse Ox 100% on R/A; em 08:55 BP 118 / 68; Pulse 67; Resp 18; Pulse Ox 100% on R/A; Pain 3/10; em 09:21 BP 109 / 71; Pulse 70; Resp 18; Pulse Ox 100% on R/A; Pain 6/10; em 10:22 BP 107 / 64; Pulse 79; Resp 17; Pulse Ox 99% ; mh5 11:20 BP 124 / 81; Pulse 74; Resp 18; Pulse Ox 99% on R/A; em MDM: 07:51 Patient medically screened. 10:50 Differential diagnosis: medication reaction, sbo, gastroenteritis. Data reviewed: vital gs signs, nurses notes. 03/11 07:53 Order name: Urine Microscopic Only; Complete Time: 09: 03/11 08:08 Order name: Urine Dipstick--Ancillary (enter results); Complete Time: 09: 03/11 08:08 Order name: Urine --Ancillary (enter results); Complete Time: 09: 03/11 08:24 Order name: Basic Metabolic Panel; Complete Time: 09: 03/11 08:24 Order name: CBC with Diff; Complete Time: 09:13 03/11 08:24 Order name: Hepatic Function; Complete Time: 09:13 03/11 08:24 Order name: Lipase; Complete Time: 09:13 03/11 09:54 Order name: Abdomen Acute Series XRAY; Complete Time: 10:47 03/11 07:53 Order name: Urine Test (obtain specimen); Complete Time: 07:58 03/11 07:53 Order name: Urine Dipstick-Ancillary (obtain specimen); Complete Time: 07:58 03/11 08:10 Order name: PO challenge; Complete Time: 08:16 03/11 08:24 Order name: IV Saline Lock; Complete Time: 08:42 03/11 08:24 Order name: Labs collected and sent; Complete Time: 08:42 gs Administered Medications: 07:58 Drug: Zofran 4 mg Route: PO; em 08:30 Follow up: Response: No adverse reaction; Nausea unchanged em 08:42 Drug: NS 0.9% 1000 ml Route: IV; Rate: 1 bolus; Site: right forearm; em 09:19 Follow up: IV Status: Completed infusion; IV Intake: 1000ml em 08:46 Drug: Zofran 4 mg Route: IVP; Site: right forearm; ss 09:19 Follow up: Response: No adverse reaction; Nausea is decreased; Vomiting decreased em 09:29 Drug: TORadol 15 mg Route: IVP; Site: right forearm; ss 10:13 Follow up: Response: No adverse reaction; Pain is decreased em 10:25 Drug: Pepcid 20 mg Route: IVP; Site: right forearm; ss 10:47 Follow up: Response: No adverse reaction em 10:26 Drug: Reglan 10 mg Route: IVP; Site: right forearm; ss 10:48 Follow up: Response: No adverse reaction em Disposition: 03/11/18 10:58 Discharged to Home. Impression: Nausea and vomiting. - Condition is Stable. - Discharge Instructions: Nausea and Vomiting, Adult. - Prescriptions for Zofran 4 mg Oral Tablet - take 1 tablet by ORAL route every 12 hours As needed; 6 tablet. Phenergan 25 mg Rectal Suppository - insert 1 suppository by RECTAL route every 6 hours As needed; 12 suppository. Clindamycin HCl 150 mg Oral Capsule - take 1 capsule by ORAL route every 6 hours for 7 days; 28 capsule. - Medication Reconciliation Form, Thank You Letter, Antibiotic Education, Prescription Opioid Use, Work release form form. - Follow up: Private Physician; When: 2 - 3 days; Reason: Re-evaluation by your physician. Signatures: Dispatcher [employer] EDHunter Becerra, SPICE MILLER HAMMER MILL SPICE MILLER HAMMER MILL Sandra Clemente RN RN ss Starr, Gregory, MD MD gs Corrections: (The following items were deleted from the chart) 11:22 10:58 03/11/2018 10:58 Discharged to Home. Impression: Nausea and vomiting. Condition em is Stable. Forms are Medication Reconciliation Form, Thank You Letter, Antibiotic Education, Prescription Opioid Use. Follow up: Private Physician; When: 2 - 3 days; Reason: Re-evaluation by your physician. gs
[2018-03-11 11:28] VITALS: TEMP 98.4
[2018-03-11 11:31] VITALS: O2SAT 99
[2018-03-11 11:32] VITALS: BP 124/81
== END 2018-03-11 11:22 | disposition home or self-care (01) ==
LOC: ER 07:35
DX: R11.2 Nausea with vomiting, unspecified (principal); Z88.8 Allergy status to other drugs, medicaments and biological substances
CPT/HCPCS: 36415; 74022; 80048; 80076; 81003; 81015; 81025; 83690; 85025; 96361; 96374; 96375; 99284; J2405; J2765; J7030

== ENCOUNTER 2018-10-03 21:41 | Emergency (ER) | payer SELFPAY ==
--- OUTSIDE RECORDS SUMMARY | 2018-10-03 21:44 | XMS REPORT | Clinical Summary ---
:1990 Author Organization [employer] Address [address] [place] [id number] Care Team Providers Name Role Phone Jae Dong MD Primary Care Provider Allergies Active Allergy Reactions Severity Noted Date Comments Ciprofloxacin GI Intolerance Medium 05/04/2017 Nausea & Vomiting Medications Medication Sig Dispensed Refills Start Date End Date Status acetaminophen-codeine Take 1 tablet by 0 Active (TYLENOL WITH CODEINE mouth every 4 #3) 300-30 mg per (four) hours as tablet needed for moderate pain. promethazine Take 25 mg by 0 Active (PHENERGAN) 25 MG mouth every 6 tablet (six) hours as needed for nausea or vomiting. ranitidine (ZANTAC) Take 150 mg by 0 Active 150 MG tablet mouth nightly as needed for heartburn. Active Problems Problem Noted Date Peptic ulcer disease 05/12/2017 Anxiety 05/12/2017 Iron deficiency anemia 05/12/2017 Dehydration 05/06/2017 Tachycardia 05/04/2017 Immunizations Name Dates Previously Given Next Due Pneumococcal Conjugate 13-Valent 05/06/2017 Social History Tobacco Use Types Packs/Day Years Used Date Never Assessed Sex Assigned at Date Recorded Not on file Job Start Date Occupation Industry Not on file Not on file Not on file Travel History Travel Start Travel End No recent travel history available. Last Filed Vital Signs Not on file Plan of Treatment Health Maintenance Due Date Last Done Comments CERVICAL CANCER SCREENING 2010 INFLUENZA VACCINE 01/11/2019 Results Not on fileafter 10/02/2017 Insurance Payer Benefit Plan / Group Subscriber ID Type Phone Address BCBS BCBS CHOICE PPO/FEDERAL EMPL PPO xxxxxxxxxxxx PPO Advance Directives Patient has advance care planning documents on file. For more information, please contact:Chip [id number] [place] [address]
[2018-10-03] MEDS ORDERED: PROMETHAZINE 25 MG/ML VIAL ONE (22:43)
[2018-10-03] MEDS ORDERED: ONDANSETRON 4 MG (ODT) TAB ONE (22:43)
[2018-10-03] MEDS ORDERED: PEN G BENZ LA 2.4 MU/4 ML SYRINGE IM ONE (22:45)
--- NOTE | 2018-10-03 23:46 | ER ---
Nurse's Notes [facility] Name: Jaye Pérez Age: 28 yrs Sex: Female : 1990 Arrival Date: 10/03/2018 Time: 21:42 Bed 20 Private MD: Diana Linton K Diagnosis: Nausea and vomiting;Patient's other noncompliance with medication regimen-second to N/V;Dental caries Presentation: 10/03 21:54 Presenting complaint: Patient states: vomiting intermittent X3 days with abd pain. 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 Transition of care: patient was not received from another setting of care. Onset of symptoms is unknown. Risk Assessment: Do you want to hurt yourself or someone else? Patient reports no desire to harm self or others. Care prior to arrival: None. 21:54 Method Of Arrival: Ambulatory ak1 21:54 Acuity: JEREMIAH 3 ak1 22:00 Initial Sepsis Screen: Does the patient meet any 2 criteria? No. Patient's initial ed1 sepsis screen is negative. Does the patient have a suspected source of infection? No. Patient's initial sepsis screen is negative. AUDIT TECH: 21:55 LMP 09/18/2018 ak1 Historical: - Allergies: 21:55 Cipro (Upset stomach); ak1 - Home Meds: 21:55 None [Active]; ak1 - PMHx: 21:55 GERD; PUD; ak1 - PSHx: 21:55 Tonsillectomy; ak1 - Immunization history:: Adult Immunizations unknown. - Social history:: Smoking status: Patient uses tobacco products, smokes one-half pack cigarettes per day. - Ebola Screening: : No symptoms or risks identified at this time. Screenin:00 Abuse screen: Denies threats or abuse. Denies injuries from another. Nutritional ed1 screening: No deficits noted. Tuberculosis screening: No symptoms or risk factors identified. Fall Risk None identified. Assessment: 22:00 General: Appears uncomfortable, Behavior is calm, cooperative, Pt states "I am getting ed1 all of my teeth pulled and I have been on these antibiotics and they are making my stomach hurt and making me nauseated.. Pain: Complains of pain in mouth Pain currently is 7 out of 10 on a pain scale. Quality of pain is described as aching, throbbing, Pain began 2-3 days ago. Is continuous. Neuro: Level of Consciousness is awake, alert, obeys commands, Oriented to person, place, time, situation. Cardiovascular: Denies chest pain, Heart tones S1 S2 present. Respiratory: Airway is patent Respiratory effort is even, unlabored, Respiratory pattern is regular, symmetrical, Breath sounds are clear bilaterally. GI: Abdomen is non-distended, Bowel sounds present X 4 quads. Abd is soft and non tender X 4 quads. Reports nausea, vomiting, Patient currently denies diarrhea. : No signs and/or symptoms were reported regarding the genitourinary system. EENT: Poor dentition noted. Derm: Skin is intact, is healthy with good turgor, Skin is dry, Skin is normal, Skin temperature is warm. Musculoskeletal: Circulation, motion, and sensation intact. Range of motion: intact in all extremities. 23:50 Reassessment: Patient appears in no apparent distress at this time. Patient and/or ed1 family updated on plan of care and expected duration. Pain level reassessed. Patient is alert, oriented x 3, equal unlabored respirations, skin warm/dry/pink. Pt states nausea has improved but she still has abdominal pain but doesn't want to wait for any further testing. Vital Signs: 21:55 BP 134 / 84; Pulse 79; Resp 16; Temp 99(O); Pulse Ox 99% on R/A; Weight 74.84 kg (R); ak1 Height 5 ft. 5 in. (165.10 cm) (R); Pain 7/10; 23:50 BP 129 / 76; Pulse 83; Resp 17; Pulse Ox 100% on R/A; Pain 7/10; ed1 21:55 Body Mass Index 27.46 (74.84 kg, 165.10 cm) ak1 ED Course: 21:42 Patient arrived in ED. am2 21:43 Diana Linton MD is Private Physician. am2 21:55 Triage completed. ak1 21:55 Arm band placed on Patient placed in an exam room, on a stretcher, Patient notified of ak1 wait time. 21:57 Kinga Aguilar FNP-C [facility]. snw 21:57 Chidi Rivera MD is Attending Physician. snw 22:00 Patient has correct armband on for positive identification. Placed in gown. Bed in low ed1 position. Call light in reach. 22:03 Katja Hamilton, RN is Primary Nurse. ed1 23:45 Diana Linton MD is Referral Physician. snw 23:50 No provider procedures requiring assistance completed. Patient did not have IV access ed1 during this emergency room visit. Administered Medications: 22:42 Drug: Zofran 8 mg Route: PO; ed1 23:51 Follow up: Response: No adverse reaction; Nausea is decreased ed1 22:42 Drug: Bicillin L-A 2.4 million units Route: IM; Site: right gluteus; ed1 23:51 Follow up: Response: No adverse reaction ed1 22:42 Drug: Phenergan 25 mg Route: IM; Site: left deltoid; ed1 23:50 Follow up: Response: No adverse reaction; Nausea is decreased ed1 Outcome: 23:45 Discharge ordered by MD. snw 23:50 Discharged to home ambulatory. ed1 23:50 Condition: good 23:50 Discharge instructions given to patient, Instructed on discharge instructions, follow up and referral plans. medication usage, Demonstrated understanding of instructions, follow-up care, medications, Prescriptions given X 2. 23:51 Patient left the ED. ed1 Signatures: Kinga Aguilar, PIPE FITTER MARINE-C PIPE FITTER MARINE-Csnw Katja Hamilton, RN RN ed1 Daisy Varela RN RN ak1 Vicenta Sher am2
--- NOTE | 2018-10-03 23:46 | EDPHYS ---
Physician Documentation [facility] Name: Jaye Pérez Age: 28 yrs Sex: Female : 1990 Arrival Date: 10/03/2018 Time: 21:42 Bed 20 Private MD: Diana Linton K ED Physician Chidi Rivera HPI: 10/03 22:18 This 28 yrs old Female presents to ER via Ambulatory with complaints of snw Nausea/Vomiting, chills. 22:18 The patient presents to the emergency department with nausea, vomiting. Onset: The snw symptoms/episode began/occurred 3 day(s) ago, and became persistent. Possible causes: antibiotics, and possibly T#3. Associated signs and symptoms: Pertinent positives: abdominal pain, nausea, vomiting. Severity of symptoms: At their worst the symptoms were moderate. The patient has experienced similar episodes in the past. pt was given T#3 and amoxil for dental caries. She stopped taking the meds for concern this was causing the N/V. 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 - Social history:: Smoking status: Patient uses tobacco products, smokes one-half pack cigarettes per day. - Ebola Screening: : No symptoms or risks identified at this time. ROS: 22:18 Constitutional: Negative for fever, chills, and weight loss, Eyes: Negative for injury, snw pain, redness, and discharge, ENT: Negative for injury, pain, and discharge, Neck: Negative for injury, pain, and swelling, Cardiovascular: Negative for chest pain, palpitations, and edema, Respiratory: Negative for shortness of breath, cough, wheezing, and pleuritic chest pain, Back: Negative for injury and pain, : Negative for injury, bleeding, discharge, and swelling, MS/Extremity: Negative for injury and deformity, Skin: Negative for injury, rash, and discoloration, Neuro: Negative for headache, weakness, numbness, tingling, and seizure. 22:18 Abdomen/GI: Positive for nausea and vomiting. Exam: 22:17 Constitutional: This is a well developed, well nourished patient who is awake, alert, snw and in no acute distress. Head/Face: Normocephalic, atraumatic. Eyes: Pupils equal round and reactive to light, extra-ocular motions intact. Lids and lashes normal. Conjunctiva and sclera are non-icteric and not injected. Cornea within normal limits. Periorbital areas with no swelling, redness, or edema. Neck: Trachea midline, no thyromegaly or masses palpated, and no cervical lymphadenopathy. Supple, full range of motion without nuchal rigidity, or vertebral point tenderness. No Meningismus. Chest/axilla: Normal chest wall appearance and motion. Nontender with no deformity. No lesions are appreciated. Cardiovascular: Regular rate and rhythm with a normal S1 and S2. No gallops, murmurs, or rubs. Normal PMI, no JVD. No pulse deficits. Respiratory: Lungs have equal breath sounds bilaterally, clear to auscultation and percussion. No rales, rhonchi or wheezes noted. No increased work of breathing, no retractions or nasal flaring. Abdomen/GI: Soft, non-tender, with normal bowel sounds. No distension or tympany. No guarding or rebound. No evidence of tenderness throughout. Back: No spinal tenderness. No costovertebral tenderness. Full range of motion. MS/ Extremity: Pulses equal, no cyanosis. Neurovascular intact. Full, normal range of motion. Neuro: Awake and alert, GCS 15, oriented to person, place, time, and situation. Cranial nerves II-XII grossly intact. Motor strength 5/5 in all extremities. Sensory grossly intact. Cerebellar exam normal. Normal gait. Psych: Awake, alert, with orientation to person, place and time. Behavior, mood, and affect are within normal limits. 22:17 ENT: TM's: are normal, Nose: is normal, Dental exam: dental caries, that is moderate, that is severe, diffusely. 22:17 Skin: Appearance: normal except for affected area, Color: normal in color, Temperature: cool, Moisture: damp. Vital Signs: 21:55 BP 134 / 84; Pulse 79; Resp 16; Temp 99(O); Pulse Ox 99% on R/A; Weight 74.84 kg (R); ak1 Height 5 ft. 5 in. (165.10 cm) (R); Pain 7/10; 23:50 BP 129 / 76; Pulse 83; Resp 17; Pulse Ox 100% on R/A; Pain 7/10; ed1 21:55 Body Mass Index 27.46 (74.84 kg, 165.10 cm) ak1 MDM: 22:08 Patient medically screened. snw 23:47 Data reviewed: vital signs, nurses notes. Data interpreted: Pulse oximetry: on room air snw is 99 %. Interpretation: normal. Counseling: I had a detailed discussion with the patient and/or guardian regarding: the historical points, exam findings, and any diagnostic results supporting the discharge/admit diagnosis, the need for outpatient follow up, to return to the emergency department if symptoms worsen or persist or if there are any questions or concerns that arise at home. Administered Medications: 22:42 Drug: Zofran 8 mg Route: PO; ed1 23:51 Follow up: Response: No adverse reaction; Nausea is decreased ed1 22:42 Drug: Bicillin L-A 2.4 million units Route: IM; Site: right gluteus; ed1 23:51 Follow up: Response: No adverse reaction ed1 22:42 Drug: Phenergan 25 mg Route: IM; Site: left deltoid; ed1 23:50 Follow up: Response: No adverse reaction; Nausea is decreased ed1 Disposition: 10/04 02:46 Co-signature as Attending Physician, Chidi Rivera MD. rn Disposition: 10/03/18 23:45 Discharged to Home. Impression: Nausea and vomiting, Patient's other noncompliance with medication regimen - second to N/V, Dental caries. - Condition is Stable. - Discharge Instructions: Dental Pain, Clear Liquid Diet, Adult, Nausea and Vomiting, Adult, Diet and Dental Disease. - Prescriptions for Zofran 4 mg Oral Tablet - take 1 tablet by ORAL route every 12 hours As needed; 20 tablet. Phenergan 25 mg Rectal Suppository - insert 1 suppository by RECTAL route every 6 hours As needed; 12 suppository. - Medication Reconciliation Form, Thank You Letter, Antibiotic Education, Prescription Opioid Use form. - Follow up: Diana Linton MD; When: 2 - 3 days; Reason: Recheck today's complaints, Continuance of care, Re-evaluation by your physician. Follow up: Emergency Department; When: As needed; Reason: Worsening of condition. 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 [facility] 23:51 23:45 10/03/2018 23:45 Discharged to Home. Impression: Nausea and vomiting; Patient's ed1 other noncompliance with medication regimen - second to N/V; Dental caries. Condition is Stable. Forms are Medication Reconciliation Form, Thank You Letter, Antibiotic Education, Prescription Opioid Use. Follow up: Diana Linton; When: 2 - 3 days; Reason: Recheck today's complaints, Continuance of care, Re-evaluation by your physician. Follow up: Emergency Department; When: As needed; Reason: Worsening of condition. snw
[2018-10-04 00:33] VITALS: BP 134/84; TEMP 99; O2SAT 99
== END 2018-10-03 23:51 | disposition home or self-care (01) ==
LOC: ER 21:41
DX: Z91.14 Patient's other noncompliance with medication regimen (principal); K02.9 Dental caries, unspecified; F17.210 Nicotine dependence, cigarettes, uncomplicated; Z88.1 Allergy status to other antibiotic agents
CPT/HCPCS: 96372; 99283; J0561; J2550

== ENCOUNTER 2020-01-16 19:09 | Emergency (ER) | payer SELFPAY ==
--- OUTSIDE RECORDS SUMMARY | 2020-01-16 19:12 | XMS REPORT | Clinical Summary ---
:1990 Author Organization [facility] Address [address] [place] [id number] Care Team Providers Name Role Phone Jae Dong MD Primary Care Provider Allergies Active Allergy Reactions Severity Noted Date Comments Ciprofloxacin GI Intolerance Medium 05/04/2017 Nausea & Vom iting Medications Medication Sig Dispensed Refills Start Date End Date Status acetaminophen-codeine Take 1 tablet by 0 Active (TYLENOL WITH CODEINE mouth every 4 #3) 300-30 mg per (four) hours as tablet needed for moderate pain. promethazine Take 25 mg by 0 Act johnny (PHENERGAN) 25 MG mouth every 6 tablet (six) hours as needed for nausea or vomiting. ranitidine (ZANTAC) Take 150 mg by 0 Active 150 MG tablet mouth nightly as needed for heartburn. 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
--- OUTSIDE RECORDS SUMMARY | 2020-01-16 19:14 | XMS REPORT | Continuity of Care Document ---
:1990 Author Organization [employer] Care Team Providers Name Role Phone [employer] Unavailable Un available Problems Problem Status Onset Classification Date Comments Sourc e Date Reported Discharge 04/14/2016 YUNI Bee nd Diagnosis: 6 Abdominal pain, acute, epigastric [facility] [place] ABDOMINAL PAIN [facility] 6 Eb VOMITING Active [facility] 6 Eb INTRATABLE ABD Active [facility] PAIN,VOMITING,DE 6 Her pelaez HYDRATION Discharge 12/24/2015 YUNI Bee nd Diagnosis: 6 Leukocytosis Discharge 12/24/2015 YUNI Bee nd Diagnosis: 6 Abdominal pain VOMITING/STOMACH Active [facility] 6 Eb Gastric ulcer Active Problem 04/14/2016 Kenyon davidson (disorder) CYCLICAL Active [facility] VOMITING, Eb INTRACTABLE Medications Medication Details Route Status Patient Ordering Order Source Instructions Provider Date Sucralfate 100 1 gm = 10 mL, Active 1030/ MH MG/ML Oral PO, QID, # 2016 [place] Suspension 1200 mL, 0 [Carafate] Refill(s), Pharmacy: [facility] dicyclomine 20 20 mg = 1 tab, Active 1030/ MH mg oral tablet PO, QID, # 56 2016 [place] tab, 1 Refill(s), Pharmacy: [facility] 462 gabapentin 300 300 mg = 1 Active 1030/ MH MG Oral Capsule cap, PO, TID, 2016 Kenyon davidson [Neurontin] # 30 cap, 1 Refill(s), Pharmacy: [facility] 462 Protonix Notes: For IV No Longer push Active 2015 [place] reconstitute with 10 ml 0.9% sodium chloride and push over 2 minutes. (Same as: Protonix) Jossyl Notes: (Same No Longer as: Bentyl) Active 2016 [place] Sucralfate 100 Notes: Enteral No Longer MG/ML Oral feeds october Active 2015 [place] Suspension interfere with [Carafate] the absorption of this medication. Shake well. Take 1 hr before or 2 hrs after antacids, dairy pdt, minerals & meals. (Same As: Carafate) Reglan Notes: (Same No Longer as: Reglan) Active 2015 [place] Acetaminophen Notes: Do not No Longer exceed 4 Active 2015 [place] gm/day. (Same as: Tylenol) pantoprazole Notes: Tablet Inactive should not be 2015 [place] chewed or crushed. (Same as: Protonix) Sucralfate 100 Notes: Enteral Inactive H MG/ML Oral feeds october 2015 [place] Suspension interfere with [Carafate] the absorption of this medication. Shake well. Take 1 hr before or 2 hrs after antacids, dairy pdt, minerals & meals. (Same As: Carafate) gabapentin 300 Notes: (Same No Longer MG Oral Capsule as: Neurontin) Active 2015 [place] [Neurontin] Zofran ODT Notes: (Same No Longer as: Zofran Active 2015 [place] ODT) influenza virus Notes: (Same Inactive vaccine, as: Fluzone 2015 [place] inactivated Quadrivalent, Fluarix Quadrivalent) For 3 years of age and older (0.5 mL IM) Shake well before use Metoclopramide 5 Notes: (Same Inactive H MG Oral Tablet as: Reglan) 2016 [place] and [Reglan] Take 30 min before meals Protonix Notes: Tablet No Longer should not be Active 2015 [place] chewed or crushed. (Same as: Protonix) pantoprazole Notes: For IV Inactive push 2015 [place] reconstitute with 10 ml 0.9% sodium chloride and push over 2 minutes. (Same as: Protonix) Protonix Notes: For IV Inactive push 2015 [place] reconstitute with 10 ml 0.9% sodium chloride and push over 2 minutes. (Same as: Protonix) Phenergan Notes: (Same No Longer as: Phenergan) Active 2015 [place] Zofran Notes: (Same No Longer as: Zofran) Active 2015 [place] MEDICATION WASTE Product Size: 4 mg Product Wasted: ___ mg Morphine Notes: (Same No Longer as:MORPhine Active 2015 [place] Sulfate) Ibuprofen Notes: (Same Inactive as: Motrin) 2015 [place] "Do Not Crush" Take with food. Saline Flush Notes: (Same No Longer 0.9% as: BD Active 2015 [place] Posiflush) Sodium Chloride 1,000 mL, No Longer 0.154 MEQ/ML Rate: 125 Active 2015 [place] Injectable ml/hr, Infuse Solution over: 8 hr, Route: IV, Dosing Weight 88.636 kg, Total Volume: 1,000, Start date: 04/08/16 16:35:00 CDT, Duration: 30 day, Stop date: 05/08/16 16:34:00 USED [employer] Ondansetron Notes: (Same No Longer as: Zofran) Active 2015 [place] MEDICATION WASTE Product Size: 4 mg Product Wasted: ___ mg Zofran 4 mg, Route: Inactive IVP, Drug 2015 [place] form: INJ, ONCE, Dosing Weight 88.636, kg, Priority: STAT, Start date: 04/08/16 15:22:00 CDT, Stop date: 04/08/16 15:22:00 CDT gabapentin 300 300 mg = 1 No Longer MG Oral Capsule cap, PO, TID, Active 2015 [place] [Neurontin] # 30 cap, 1 Refill(s) Promethazine 25 mg = 1 No Longer Hydrochloride 25 supp, FL, Q6H, Active 2015 [place] MG Rectal PRN Nausea & Suppository Vomiting, X 3 [Phenergan] day, # 12 supp, 0 Refill(s) Ondansetron 4 MG 4 mg = 1 tab, No Longer Disintegrating PO, BID, PRN Active 2015 [facility] land Tablet [Zofran] Nausea and Vomiting, Dissolve tab under tongue, X 5 day, # 10 tab, 0 Refill(s) pantoprazole Notes: (Same Inactive as: Protonix) 2015 [place] Metoclopramide Notes: (Same Inactive as: Reglan) 2015 [place] Saline Flush Notes: (Same Inactive 0.9% as: BD 2015 [place] Posiflush) Sodium Chloride 1,000 mL, Inactive 0.154 MEQ/ML 2,000 ml/hr, 2015 [place] Injectable Infuse Over: Solution 30 minutes, Route: IV, 1,000, Drug form: INJ, ONCE, Priority: STAT, Dosing Weight 88.636 kg, Start date: 04/08/16 11:05:00 CDT, Duration: 1 doses or times, Stop date: 04/08/16 11:05:00 CDT Hydromorphone Notes: Same Inactive as: Dilaudid 2015 [place] Remove old Remove old Inactive Nicotine patch Nicotine patch 2015 [facility] before applying before Q24H applying Q24H, ONCE, Drug form: MISC, Route: N/A, Daily, 12/24/15 21:00:00 CDT, Duration: 30 day, Stop date: 01/23/16 9:00:00 CDT Sucralfate 100 1 gm = 10 mL, Active MG/ML Oral PO, QID, # 2015 [place] Suspension 1200 mL, 0 [Carafate] Refill(s), Pharmacy: [email or web address] pantoprazole 40 40 mg = 1 tab, Active H mg oral enteric PO, BID-Before 2015 [place] coated tablet Meals, # 60 tab, 0 Refill(s), Pharmacy: [email or web address] Protonix Notes: Tablet Inactive should not be 2015 [place] chewed or crushed. (Same as: Protonix) potassium Notes: (Same Inactive chloride as: K-Dur 20) 2015 [place] "Do Not Crush" With food and full glass of water Tylenol Notes: Do not No Longer exceed 4 Active 2015 [place] gm/day. (Same as: Tylenol) Nicotine Notes: (Same No Longer as: Habitrol) Active 2015 [place] "Remove old patch before application of new patch" WASTE: F/P - P Waste Black; E - P Waste Black Sucralfate 100 Notes: Enteral No Longer MG/ML Oral feeds may Active 2015 [place] Suspension interfere with [Carafate] the absorption of this medication. Shake well. Take 1 hr before or 2 hrs after antacids, dairy pdt, minerals & meals. (Same As: Carafate) Sodium Chloride 1,000 mL, Inactive 0.154 MEQ/ML Rate: 20 2015 [place] Injectable ml/hr, Infuse Solution over: 50 hr, Route: IV, Dosing Weight 86.364 kg, Total Volume: 1,000, Start date: 12/23/15 12:54:00 CDT, Duration: 2 hr, Stop date: 12/23/15 14:53:00 CDT Protonix + Notes: For IV No Longer sodium chloride push Active 2015 [place] 0.9% 10 ml INJ reconstitute (PF) 20 mL with 10 ml 0.9% sodium chloride and push over 2 minutes. (Same as: Protonix) Sodium Chloride 100 mL, Rate: No Longer 0.154 MEQ/ML 10 ml/hr, Active 2015 [place] Injectable Infuse over: Solution 10 hr, Route: IVPB, Dosing Weight 86.364 kg, Total Volume: 100, Infuse at 8 mg / hr for 72 hours for GI bleeding, Start date: 12/22/15 20:36:00 CDT, Duration: 72 hr, Stop date: 12/25/15 20:35:00 CDT Sodium Chloride 20 mL, Rate: Inactive 0.9% IV 20 mL + 240 ml/hr, 2015 [place] and pantoprazole 80 Infuse over: 5 mg minutes, Route: IVP, Dosing Weight 86.364 kg, Total Volume: 20, Start date: 12/22/15 20:36:00 CDT, Duration: 1 doses or times, Stop date: 12/22/15 20:40:00 CDT pantoprazole Notes: Same Inactive as: Protonix) 2015 [place] Flagyl Notes: (Same No Longer as: Flagyl) Active 2015 [place] Avoid alcohol. Ciprofloxacin Notes: Do not No Longer refrigerate Active 2015 [place] Phenergan Notes: (Same No Longer as: Phenergan) Active 2015 [place] Sodium Chloride 1,000 mL, No Longer 0.154 MEQ/ML Rate: 125 Active 2015 [place] Injectable ml/hr, Infuse Solution over: 8 hr, Route: IV, Dosing Weight 88.636 kg, Total Volume: 1,000, Start date: 12/21/15 20:22:00 CDT, Duration: 30 day, Stop date: 01/20/16 20:21:00 CDT Saline Flush Notes: (Same No Longer 0.9% as: BD Active 2015 [place] Posiflush) Ondansetron Notes: (Same No Longer as: Zofran) Active 2015 [place] MEDICATION WASTE Product Size: 4 mg Product Wasted: ___ mg Morphine Notes: (Same No Longer as:MORPhine Active 2015 [place] Sulfate) Morphine Notes: (Same Inactive as:MORPhine 2015 [place] Sulfate) Morphine Notes: (Same Inactive as:MORPhine 2015 [place] Sulfate) Promethazine Notes: (Same Inactive as: Phenergan) 2015 [place] Saline Flush Notes: (Same No Longer 0.9% as: BD Active 2015 [place] Posiflush) Sodium Chloride 1,000 mL, Inactive 0.154 MEQ/ML 2,000 ml/hr, 2016 [facility] nd Injectable Infuse Over: Solution 30 minutes, Route: IV, 1,000, Drug form: INJ, ONCE, Priority: STAT, Dosing Weight 88.636 kg, Start date: 12/21/15 16:04:00 CDT, Duration: 1 doses or times, Stop date: 12/21/15 16:04:00 CDT Ondansetron 4 MG 4 mg = 1 tab, On Hold 07/10/ M H Oral Tablet PO, BID, X 5 2015 [place] [Zofran] day, # 10 tab, 0 Refill(s) Acetaminophen 1 - 2 tab, PO, No Longer 07/10/ M H 300 MG / Codeine Q4H, PRN Pain, Active 2015 [place] Phosphate 30 MG X 2 day, # 20 Oral Tablet tab, 0 [Tylenol with Refill(s) Codeine #3] Bentyl Notes: (Same Inactive as: Bentyl) 2015 [place] Reglan Notes: (Same Inactive as: Reglan) 2015 [place] GI cocktail Notes: G.I. Inactive Cocktail = 2015 [place] antacid with simethicone 22.5 mL - lidocaine viscous 7.5 mL Morphine 4 mg, Route: Inactive IVP, Drug 2015 [place] form: INJ, ONCE, Dosing Weight 87.727, kg, Priority: STAT, Start date: 12/20/15 19:36:00 CDT, Stop date: 12/20/15 19:36:00 CDT Ondansetron Notes: (Same Inactive as: Zofran) 2015 [place] MEDICATION WASTE Product Size: 4 mg Product Wasted: ___ mg Sodium Chloride 1,000 mL, Inactive 0.154 MEQ/ML 2,000 ml/hr, 2015 [facility] nd Injectable Infuse Over: Solution 30 minutes, Route: IV, 1,000, Drug form: INJ, ONCE, Priority: STAT, Dosing Weight 87.727 kg, Start date: 12/20/15 18:37:00 CDT, Duration: 1 doses or times, Stop date: 12/20/15 18:37:00 CDT Saline Flush Notes: (Same No Longer 0.9% as: BD Active 2015 [place] Posiflush) Allergies, Adverse Reactions, Alerts No Known Medication Allergies Immunizations Immunization Date Given Site Status Last Updated Comments Jaylyn rce influenza virus 04/11/2016 Not Given [facility] vaccine, inactivated Results Order Name Results Value Reference Date Interpretation Comments Jaylyn rce Range ELECTROLYTE AGAP 9.9 10.0 - 10 MH S 20.0 [place] ELECTROLYTE Sodium Lvl 141 135 - 145 10/30 MH S [place] ELECTROLYTE Potassium 3.9 3.5 - 5.1 10/30 MH S Lvl /2015 [place] ELECTROLYTE eGFR 121 10/ Result Comment: The [place] eGFR is calculated using the CKD-EPI formula. In most young, healthy individuals the eGFR will be >90 mL/min/1.73m2 . The eGFR declines with age. An eGFR of 60-89 may be normal in some populations, particularly the elderly, for whom the CKD-EPI formula has not been extensively validated. Use of the eGFR is not recommended in the following populations:< br/>
Malinda viduals with unstable creatinine concentration s, including patients and those with serious co-morbid conditions.<b r/>
Patie nts with extremes in muscle mass or diet.

The data above are obtained from the National Kidney Disease Education Program (NKDEP) which additionally recommends that when the eGFR is used in patients with extremes of body mass index for purposes of drug dosing, the eGFR should be multiplied by the estimated BMI. ELECTROLYTE Chloride Lvl 105 95 - 109 04/11 MH S [place] ELECTROLYTE Calcium Lvl 7.8 8.5 - 10.5 04/11 S [place] ELECTROLYTE CO2 30 24 - 32 04/11 S [place] ELECTROLYTE Glucose Lvl 111 70 - 99 04/11 S [place] ELECTROLYTE BUN 2 7 - 22 04/11 S [place] ELECTROLYTE Creatinine 0.67 0.50 - 10 MH S Lvl 1.40 [place] HEMATOLOGY Hgb 10.1 12.0 - 04/11 MH 16.0 [place] HEMATOLOGY RBC X 10x6 3.73 4.20 - 04/11 MH 5.40 [place] HEMATOLOGY MCV 81.8 80.0 - 04/11 MH 98.0 [place] HEMATOLOGY WBC X 10x3 8.7 3.7 - 10.4 04/11 [place] HEMATOLOGY Hct 30.5 36.0 - 04/11 MH 48.0 [place] HEMATOLOGY MPV 9.0 7.4 - 10.4 04/11 [place] HEMATOLOGY MCHC 33.2 32.0 - 04/11 MH 36.0 [place] HEMATOLOGY MCH 27.1 27.0 - 04/11 MH 31.0 [place] HEMATOLOGY RDW 17.4 11.5 - 04/11 MH 14. [place] HEMATOLOGY Platelet 360 133 - 450 04/11 [place] HEMATOLOGY Platelet 393 133 - 450 04/10 [place] HEMATOLOGY RDW 17.2 11.5 - 04/10 MH 14. [place] HEMATOLOGY MPV 8.6 7.4 - 10.4 04/10 [place] HEMATOLOGY MCV 82.1 80.0 - 04/10 MH 98.0 [place] HEMATOLOGY Hct 33.2 36.0 - 04/10 MH 48.0 [place] HEMATOLOGY MCH 26.8 27.0 - 04/10 MH 31.0 [place] HEMATOLOGY MCHC 32.6 32.0 - 04/10 MH 36.0 [place] HEMATOLOGY Hgb 10.8 12.0 - 04/10 MH 16.0 [place] HEMATOLOGY WBC X 10x3 7.1 3.7 - 10.4 04/10 [place] HEMATOLOGY RBC X 10x6 4.04 4.20 - 04/10 MH 5.40 [place] CHEM PANEL eGFR 121 04/10 Result Comment: The [place] eGFR is calculated using the CKD-EPI formula. In most young, healthy individuals the eGFR will be >90 mL/min/1.73m2 . The eGFR declines with age. An eGFR of 60-89 may be normal in some populations, particularly the elderly, for whom the CKD-EPI formula has not been extensively validated. Use of the eGFR is not recommended in the following populations:< br/>
Malinda viduals with unstable creatinine concentration s, including patients and those with serious co-morbid conditions.<b r/>
Patie nts with extremes in muscle mass or diet.

The data above are obtained from the National Kidney Disease Education Program (NKDEP) which additionally recommends that when the eGFR is used in patients with extremes of body mass index for purposes of drug dosing, the eGFR should be multiplied by the estimated BMI. CHEM PANEL Creatinine 0.67 0.50 - 04/10 MH Lvl 1. [place] CHEM PANEL BUN 4 7 - 22 04/10 [place] CHEM PANEL Chloride Lvl 108 95 - 109 04/10 [place] CHEM PANEL Potassium 3.5 3.5 - 5.1 04/10 MH Lvl /2015 [place] CHEM PANEL Calcium Lvl 7.8 8.5 - 10.5 04/10 [place] CHEM PANEL CO2 31 24 - 32 04/10 [place] CHEM PANEL Glucose Lvl 95 70 - 99 04/10 [place] CHEM PANEL AGAP 7.5 10.0 - 04/10 MH 20.0 [place] CHEM PANEL Sodium Lvl 143 135 - 145 04/10 [place] CHEM PANEL Procalcitoni <0.05 0.00 - 04/09 MH n Lvl ng/mL 0. [place] HEMATOLOGY MPV 8.6 7.4 - 10.4 04/09 [place] HEMATOLOGY Platelet 431 133 - 450 04/09 [place] HEMATOLOGY WBC X 10x3 11.5 3.7 - 10.4 04/09 [place] HEMATOLOGY RBC X 10x6 4.10 4.20 - 04/09 MH 5. [place] HEMATOLOGY Hgb 11.1 12.0 - 04/09 MH 16.0 [place] HEMATOLOGY MCH 27.0 27.0 - 04/09 MH 31.0 [place] HEMATOLOGY MCV 79.8 80.0 - 04/09 MH 98.0 [place] HEMATOLOGY Hct 32.7 36.0 - 04/09 MH 48.0 [place] HEMATOLOGY RDW 17.7 11.5 - 04/09 MH 14. [place] HEMATOLOGY MCHC 33.9 32.0 - 04/09 MH 36.0 [place] HEMATOLOGY Segs 68.8 45.0 - 04/09 MH 75.0 [place] HEMATOLOGY Basophils 0.4 0.0 - 1.0 04/09 [place] HEMATOLOGY Lymphocytes 2.5 1.0 - 5.5 04/09 MH # /2015 [place] HEMATOLOGY Segs-Bands # 7.9 1.5 - 8.1 04/09 [place] HEMATOLOGY Eosinophils 0.1 0.0 - 0.5 04/09 MH # /2015 [place] HEMATOLOGY Monocytes # 0.9 0.0 - 0.8 04/09 [place] HEMATOLOGY Eosinophils 1.1 0.0 - 4.0 04/09 [place] HEMATOLOGY Monocytes 8.1 2.0 - 12.0 04/09 [place] HEMATOLOGY Lymphocytes 21.6 20.0 - 04/09 MH 40.0 [place] CHEM PANEL Lipase Lvl 129 73 - 393 04/08 [place] ELECTROLYTE AGAP 9.5 10.0 - 04/08 MH S 20.0 2016 [place] ELECTROLYTE B/C Ratio 8 6 - 25 04/08 S [place] ELECTROLYTE A/G Ratio 1.2 0.7 - 1.6 04/08 S [place] ELECTROLYTE Globulin 3.3 2.7 - 4.2 04/08 S [place] ELECTROLYTE CO2 29 24 - 32 04/08 S [place] ELECTROLYTE Chloride Lvl 106 95 - 109 04/08 S [place] ELECTROLYTE Bili Total 0.4 0.2 - 1.3 04/08 S [place] ELECTROLYTE Calcium Lvl 8.5 8.5 - 10.5 04/08 S [place] ELECTROLYTE Total 7.1 6.4 - 8.4 04/08 S Protein [place] ELECTROLYTE ASPARTATE 15 0 - 37 04/08 S TRANSAMINASE [place] ELECTROLYTE eGFR 117 04/08 MH S Comment: The [place] eGFR is calculated using the CKD-EPI formula. In most young, healthy individuals the eGFR will be >90 mL/min/1.73m2 . The eGFR declines with age. An eGFR of 60-89 may be normal in some populations, particularly the elderly, for whom the CKD-EPI formula has not been extensively validated. Use of the eGFR is not recommended in the following populations:< br/>
Malinda viduals with unstable creatinine concentration s, including patients and those with serious co-morbid conditions.<b r/>
Patie nts with extremes in muscle mass or diet.

The data above are obtained from the National Kidney Disease Education Program (NKDEP) which additionally recommends that when the eGFR is used in patients with extremes of body mass index for purposes of drug dosing, the eGFR should be multiplied by the estimated BMI. ELECTROLYTE Albumin Lvl 3.8 3.5 - 5.0 04/08 S [place] ELECTROLYTE Glucose Lvl 114 70 - 99 04/08 S [place] ELECTROLYTE ALANINE 20 0 - 65 04/08 S AMINOTRANSFE [place] RASE ELECTROLYTE Alk Phos 80 39 - 136 04/08 S [place] ELECTROLYTE Potassium 3.5 3.5 - 5.1 04/08 S Lvl /2015 [place] ELECTROLYTE BUN 6 7 - 22 04/08 S /2015 [place] ELECTROLYTE Sodium Lvl 141 135 - 145 04/08 MH S /2015 [place] ELECTROLYTE Creatinine 0.71 0.50 - 04/08 MH S Lvl 1.40 /2015 [place] HEMATOLOGY Basophils 0.3 0.0 - 1.0 04/08 [place] HEMATOLOGY Eosinophils 0.1 0.0 - 0.5 04/08 MH # /2016 [place] HEMATOLOGY Segs-Bands # 10.1 1.5 - 8.1 04/08 [place] HEMATOLOGY Lymphocytes 1.7 1.0 - 5.5 04/08 MH # /2016 [place] HEMATOLOGY Monocytes # 0.7 0.0 - 0.8 04/08 [place] HEMATOLOGY Segs 80.1 45.0 - 04/08 MH 75.0 [place] HEMATOLOGY Monocytes 5.8 2.0 - 12.0 04/08 [place] HEMATOLOGY Eosinophils 0.6 0.0 - 4.0 04/08 [place] HEMATOLOGY Lymphocytes 13.2 20.0 - 04/08 MH 40.0 [place] URINE AND UA Sq Epi Few /LPF Few /LPF 04/08 STOOL /2015 [place] URINE AND UA Spec Grav 1.015 <=1.030 04/08 STOOL /2015 [place] URINE AND UA Turbidity Clear Clear 04/08 STOOL (04/08/16 11:28 AM) /2015 [facility] URINE AND UA Color Yellow Yellow 04/08 STOOL *NA* /2015 [place] (04/08/16 11:28 AM) URINE AND UA Bili Negative Negative 04/08 STOOL *NA* /2015 [place] (04/08/16 11:28 AM) URINE AND UA Ketones Negative Negative 04/08 [place] mg/dL mg/dL [place] URINE AND UA Glucose Negative Negative 04/08 STO[place] mg/dL mg/dL [place] URINE AND UA pH 8.5 5.0 - 8.0 04/08 STOOL /2015 [place] URINE AND UA Protein Negative Negative 04/08 [place] mg/dL mg/dL [place] URINE AND UA Leuk Est Negative Negative 04/08 STOOL (04/08/16 11:28 AM) /2015 [place] [facility] URINE AND UA Nitrite Negative Negative 04/08 MH STOOL (04/08/16 11:28 AM) [facility] URINE AND UA 0.2 0.1 - 1.0 04/08 STOOL Urobilinogen [place] URINE AND UA Blood Negative Negative 04/08 STOOL (04/08/16 11:28 AM) [facility] URINE CHEM U Preg Negative Negative 04/08 (04/08/16 11:28 AM) [facility] ELECTROLYTE AGAP 14.3 10.0 - 12/23 MH S 20.0 [place] ELECTROLYTE Sodium Lvl 140 135 - 145 12/23 S [place] ELECTROLYTE Potassium 3.3 3.5 - 5.1 12/23 MH S Lvl /2015 [place] ELECTROLYTE CO2 23 24 - 32 12/23 S [place] ELECTROLYTE Calcium Lvl 7.6 8.5 - 10.5 12/23 S [place] ELECTROLYTE Creatinine 0.64 0.50 - 12/23 MH S Lvl 1.40 [place] ELECTROLYTE BUN 5 7 - 22 12/23 S [place] ELECTROLYTE Chloride Lvl 106 95 - 109 12/23 S [place] ELECTROLYTE eGFR 123 12/23 MH S Comment: The [place] eGFR is calculated using the CKD-EPI formula. In most young, healthy individuals the eGFR will be >90 mL/min/1.73m2 . The eGFR declines with age. An eGFR of 60-89 may be normal in some populations, particularly the elderly, for whom the CKD-EPI formula has not been extensively validated. Use of the eGFR is not recommended in the following populations:< br/>
Malinda viduals with unstable creatinine concentration s, including patients and those with serious co-morbid conditions.<b r/>
Patie nts with extremes in muscle mass or diet.

The data above are obtained from the National Kidney Disease Education Program (NKDEP) which additionally recommends that when the eGFR is used in patients with extremes of body mass index for purposes of drug dosing, the eGFR should be multiplied by the estimated BMI. ELECTROLYTE Glucose Lvl 108 70 - 99 12/23 MH S [place] HEMATOLOGY Platelet 371 133 - 450 12/23 [place] HEMATOLOGY MPV 8.1 7.4 - 10.4 12/23 [place] HEMATOLOGY MCV 82.2 80.0 - 12/23 MH 98.0 /2015 [place] HEMATOLOGY MCHC 32.4 32.0 - 12/23 MH 36.0 /2015 [place] HEMATOLOGY RDW 17.7 11.5 - 12/23 MH 14.5 /2015 [place] HEMATOLOGY MCH 26.7 27.0 - 12/23 MH 31.0 /2015 [place] HEMATOLOGY RBC X 10x6 3.93 4.20 - 12/23 MH 5.40 /2015 [place] HEMATOLOGY Hct 32.3 36.0 - 12/23 MH 48.0 /2015 [place] HEMATOLOGY Hgb 10.5 12.0 - 12/23 MH 16.0 [place] HEMATOLOGY WBC X 10x3 9.5 3.7 - 10.4 12/23 [place] CHEM PANEL eGFR 125 12/21 Result Comment: The [place] eGFR is calculated using the CKD-EPI formula. In most young, healthy individuals the eGFR will be >90 mL/min/1.73m2 . The eGFR declines with age. An eGFR of 60-89 may be normal in some populations, particularly the elderly, for whom the CKD-EPI formula has not been extensively validated. Use of the eGFR is not recommended in the following populations:< br/>
Malinda viduals with unstable creatinine concentration s, including patients and those with serious co-morbid conditions.<b r/>
Patie nts with extremes in muscle mass or diet.

The data above are obtained from the National Kidney Disease Education Program (NKDEP) which additionally recommends that when the eGFR is used in patients with extremes of body mass index for purposes of drug dosing, the eGFR should be multiplied by the estimated BMI. CHEM PANEL Potassium 3.9 3.5 - 5.1 12/21 MH Lvl /2015 [place] CHEM PANEL Chloride Lvl 107 95 - 109 12/21 [place] CHEM PANEL Creatinine 0.61 0.50 - 12/21 MH Lvl 1.40 [place] CHEM PANEL Sodium Lvl 140 135 - 145 12/21 [place] CHEM PANEL Calcium Lvl 8.1 8.5 - 10.5 12/21 [place] CHEM PANEL BUN 10 7 - 22 12/21 [place] CHEM PANEL Glucose Lvl 88 70 - 99 12/21 [place] CHEM PANEL CO2 23 24 - 32 07 /2015 [place] CHEM PANEL AGAP 13.9 10.0 - 12/21 MH 20.0 [place] HEMATOLOGY Platelet 419 133 - 450 07 /2015 [place] HEMATOLOGY MPV 8.3 7.4 - 10.4 07 /2015 [place] HEMATOLOGY RDW 18.3 11.5 - 07 MH 14.5 /2015 [place] HEMATOLOGY MCV 82.4 80.0 - 12/21 MH 98.0 /2015 [place] HEMATOLOGY MCHC 32.1 32.0 - 12/21 MH 36.0 /2015 [place] HEMATOLOGY MCH 26.4 27.0 - 12/21 MH 31.0 [place] HEMATOLOGY Hct 34.7 36.0 - 12/21 MH 48.0 [place] HEMATOLOGY RBC X 10x6 4.21 4.20 - 12/21 MH 5.40 /2015 [place] HEMATOLOGY Hgb 11.1 12.0 - 12/21 MH 16.0 [place] HEMATOLOGY WBC X 10x3 14.8 3.7 - 10.4 12/21 /2015 [place] HEMATOLOGY Lymphocytes 2.1 1.0 - 5.5 12/21 MH # /2015 [place] HEMATOLOGY Monocytes # 0.9 0.0 - 0.8 12/21 [place] HEMATOLOGY Segs-Bands # 11.7 1.5 - 8.1 12/21 [place] HEMATOLOGY Eosinophils 0.3 0.0 - 4.0 12/21 [place] HEMATOLOGY Lymphocytes 14.1 20.0 - 12/21 MH 40.0 [place] HEMATOLOGY Basophils 0.3 0.0 - 1.0 12/21 [place] HEMATOLOGY Monocytes 6.3 2.0 - 12.0 12/21 [place] HEMATOLOGY Segs 79.0 45.0 - 12/21 MH 75.0 [place] URINE AND UA Color Yellow Yellow 12/20 STOOL *NA* /2015 [place] (12/21/15 5:21 PM) URINE AND UA Turbidity Clear Clear 12/20 STOOL (12/21/15 5:21 PM) /2015 [facility] URINE AND UA 0.2 0.1 - 1.0 12/20 STOOL Urobilinogen /2015 [place] URINE AND UA Nitrite Negative Negative 12/20 STOOL (12/21/15 5:21 PM) [place] URINE AND UA Sq Epi Few /LPF Few /LPF 12/20 STOOL [place] URINE AND UA WBC 0-2 /HPF None Seen 12/20 STOOL /HPF /2015 [place] URINE AND UA pH 8.0 5.0 - 8.0 12/20 [place] URINE AND UA Spec Grav 1.015 <=1.030 12/20 STOOL [place] URINE AND UA Protein Negative Negative 12/20 STO[facility] (12/21/15 5:21 PM) [place] [facility]INE AND UA Bili Negative Negative 12/20 STOOL *NA* /2015 [place] (12/21/15 5:21 PM) URINE AND UA Glucose Negative Negative 12/20 [facility] (12/21/15 5:21 PM) [place] URINE AND UA Leuk Est Negative Negative 12/20 [facility] (12/21/15 5:21 PM) [place] URINE AND UA Blood Negative Negative 12/20 STO[place] (12/21/15 5:21 PM) [place] URINE AND UA Ketones >=80 mg/dL Negative 12/20 [place] mg/dL [place] URINE AND UA RBC 0-2 /HPF 0 - 2 12/20 [place] URINE AND UA Bacteria Occasional None Seen 12/20 [place] /HPF /HPF [place] URINE AND UA Mucus See Note None Seen 12/20 [place] (12/21/15 5:21 PM) [place] URINE CHEM U Preg Negative Negative 12/20 (12/21/15 5:21 PM) [place] CHEM PANEL Lipase Lvl 139 73 - 393 12/20 [place] CHEM PANEL eGFR 111 12/20 [facility] Comment: The [place] eGFR is calculated using the CKD-EPI formula. In most young, healthy individuals the eGFR will be >90 mL/min/1.73m2 . The eGFR declines with age. An eGFR of 60-89 may be normal in some populations, particularly the elderly, for whom the CKD-EPI formula has not been extensively validated. Use of the eGFR is not recommended in the following populations:< br/>
Malinda viduals with unstable creatinine concentration s, including patients and those with serious co-morbid conditions.<b r/>
Patie nts with extremes in muscle mass or diet.

The data above are obtained from the National Kidney Disease Education Program (NKDEP) which additionally recommends that when the eGFR is used in patients with extremes of body mass index for purposes of drug dosing, the eGFR should be multiplied by the estimated BMI. CHEM PANEL Albumin Lvl 4.4 3.5 - 5.0 07/10 [facility] /2015 [place] CHEM PANEL ALANINE 26 0 - 65 07/10 [facility] AMINOTRANSFE /2015 [place] RASE CHEM PANEL BUN 9 7 - 22 07/10 [facility] [place] CHEM PANEL Glucose Lvl 103 70 - 99 07/10 [facility] [place] CHEM PANEL Alk Phos 91 39 - 136 07/10 [place] CHEM PANEL Creatinine 0.74 0.50 - 07/10 [facility] Lvl 1.40 /2015 [place] CHEM PANEL ASPARTATE 23 0 - 37 07/10 [facility] TRANSAMINASE /2015 [place] CHEM PANEL Total 8.4 6.4 - 8.4 07/10 [facility] Protein /2015 [place] CHEM PANEL Chloride Lvl 104 95 - 109 07/10 [facility] [place] CHEM PANEL Potassium 3.9 3.5 - 5.1 07/10 [facility] Lvl /2015 [place] CHEM PANEL Sodium Lvl 136 135 - 145 07/10 [facility] [place] CHEM PANEL Bili Total 0.6 0.2 - 1.3 07/10 [facility] [place] CHEM PANEL Calcium Lvl 8.8 8.5 - 10.5 07/10 [facility] [place] CHEM PANEL CO2 20 24 - 32 07/10 [facility] [place] CHEM PANEL A/G Ratio 1.1 0.7 - 1.6 07/10 MH /2015 [place] CHEM PANEL Globulin 4.0 2.0 - 4.0 07/10 MH /2015 [place] CHEM PANEL B/C Ratio 12 6 - 25 07/10 [facility] [place] CHEM PANEL AGAP 15.9 10.0 - 07/10 MH 20.0 /2016 [place] HEMATOLOGY Lymphocytes 2.5 1.0 - 5.5 07/10 MH # /2016 [place] HEMATOLOGY Basophils # 0.1 0.0 - 0.2 07/10 [facility] [place] HEMATOLOGY Monocytes # 0.8 0.0 - 0.8 07/ [place] HEMATOLOGY Monocytes 5.1 2.0 - 12.0 07 [place] HEMATOLOGY Lymphocytes 15.3 20.0 - 07 MH 40.0 [place] HEMATOLOGY Eosinophils 0.1 0.0 - 4.0 07 [place] HEMATOLOGY Segs-Bands # 13.1 1.5 - 8.1 12/20 [place] HEMATOLOGY Basophils 0.6 0.0 - 1.0 12/20 [place] HEMATOLOGY Segs 78.9 45.0 - 07 MH 75.0 /2015 [place] HEMATOLOGY MPV 7.8 7.4 - 10.4 12/20 [place] HEMATOLOGY MCH 26.3 27.0 - 12/20 MH 31.0 [place] HEMATOLOGY RDW 18.0 11.5 - 12/20 MH 14.5 [place] HEMATOLOGY MCHC 32.6 32.0 - 12/20 MH 36.0 [place] HEMATOLOGY Platelet 497 133 - 450 12/20 [place] HEMATOLOGY WBC X 10x3 16.6 3.7 - 10.4 07 [place] HEMATOLOGY RBC X 10x6 4.76 4.20 - 12/20 MH 5.40 /2015 [place] HEMATOLOGY Hgb 12.5 12.0 - 12/20 MH 16.0 [place] HEMATOLOGY Hct 38.3 36.0 - 12/20 MH 48.0 [place] HEMATOLOGY MCV 80.5 80.0 - 12/20 MH 98.0 [place] CHEM PANEL Lipase Lvl 129 73 - 393 12/20 [place] ELECTROLYTE AGAP 11.7 10.0 - 0710 MH S 20.0 [place] ELECTROLYTE eGFR 109 12/20 Result [facility] S /2015 Comment: The [place] eGFR is calculated using the CKD-EPI formula. In most young, healthy individuals the eGFR will be >90 mL/min/1.73m2 . The eGFR declines with age. An eGFR of 60-89 may be normal in some populations, particularly the elderly, for whom the CKD-EPI formula has not been extensively validated. Use of the eGFR is not recommended in the following populations:< br/>
Malinda viduals with unstable creatinine concentration s, including patients and those with serious co-morbid conditions.<b r/>
Patie nts with extremes in muscle mass or diet.

The data above are obtained from the National Kidney Disease Education Program (NKDEP) which additionally recommends that when the eGFR is used in patients with extremes of body mass index for purposes of drug dosing, the eGFR should be multiplied by the estimated BMI. ELECTROLYTE BUN 8 7 - 22 07/10 MH S /2015 [place] ELECTROLYTE Glucose Lvl 95 70 - 99 07/10 MH S /2015 [place] ELECTROLYTE Sodium Lvl 139 135 - 145 07/10 MH S /2015 [place] ELECTROLYTE Creatinine 0.76 0.50 - 07/10 MH S Lvl 1.40 /2015 [place] ELECTROLYTE CO2 25 24 - 32 07/10 MH S /2015 [place] ELECTROLYTE Calcium Lvl 8.8 8.5 - 10.5 07/10 MH S /2015 [place] ELECTROLYTE Chloride Lvl 106 95 - 109 07/10 MH S /2015 [place] ELECTROLYTE Potassium 3.7 3.5 - 5.1 07/10 MH S Lvl /2015 [place] HEMATOLOGY Hct 36.3 36.0 - 07 MH 48.0 /2015 [place] HEMATOLOGY Hgb 11.6 12.0 - 07 MH 16.0 /2015 [place] HEMATOLOGY RBC X 10x6 4.47 4.20 - 0710 MH 5.40 /2015 [place] HEMATOLOGY Platelet 450 133 - 450 07/ MH /2015 [place] HEMATOLOGY RDW 18.3 11.5 - 07 MH 14.5 /2015 [place] HEMATOLOGY MCHC 31.9 32.0 - 07/10 MH 36.0 /2015 [place] HEMATOLOGY MCH 25.9 27.0 - 0710 MH 31.0 /2015 [place] HEMATOLOGY MCV 81.3 80.0 - 0710 MH 98.0 /2016 [place] HEMATOLOGY MPV 8.0 7.4 - 10.4 07/10 MH /2015 [place] HEMATOLOGY WBC X 10x3 16.4 3.7 - 10.4 07/10 MH /2015 [place] HEMATOLOGY Eosinophils 0.1 0.0 - 0.5 07/10 MH # /2016 [place] HEMATOLOGY Monocytes # 0.8 0.0 - 0.8 07/10 MH /2015 [place] HEMATOLOGY Basophils # 0.1 0.0 - 0.2 07/10 MH /2015 [place] HEMATOLOGY Lymphocytes 14.3 20.0 - 12/20 MH 40.0 [place] HEMATOLOGY Segs 80.0 45.0 - 12/20 MH 75.0 [place] HEMATOLOGY Monocytes 4.7 2.0 - 12.0 12/20 [place] HEMATOLOGY Lymphocytes 2.4 1.0 - 5.5 12/20 MH # /2015 [place] HEMATOLOGY Segs-Bands # 13.1 1.5 - 8.1 12/20 [place] HEMATOLOGY Basophils 0.4 0.0 - 1.0 12/20 [place] HEMATOLOGY Eosinophils 0.6 0.0 - 4.0 12/20 [place] URINE AND UA Bacteria Few /HPF None Seen 12/19 STOOL /HPF /2015 [place] URINE AND UA RBC 0-2 /HPF 0 - 2 12/19 STOOL /2015 [place] URINE AND UA WBC 0-2 /HPF None Seen 12/19 [place]OOL /HPF [place] URINE AND UA Sq Epi Moderate Few /LPF 12/19 [place] /LPF /2015 [place] URINE AND UA Nitrite Negative Negative 12/19 STO[place] (12/20/15 6:17 PM) [place] URINE AND UA Blood Negative Negative 12/19 STOOL (12/20/15 6:17 PM) [place] URINE AND UA Leuk Est Negative Negative 12/19 [place]OOL (12/20/15 6:17 PM) [place] URINE AND UA Turbidity Clear Clear 12/19 [place] (12/20/15 6:17 PM) [place] URINE AND UA Spec Grav 1.015 <=1.030 12/19 [place] /2015 [place] URINE AND UA Color Yellow Yellow 12/19 [place] *NA* /2015 [place] (12/20/15 6:17 PM) URINE AND UA 0.2 0.1 - 1.0 12/19 [place] Urobilinogen /2015 [place] URINE AND Micro? Performed 12/19 [place] (12/20/15 6:17 PM) [place] URINE AND UA Glucose Negative Negative 12/19 [place] (12/20/15 6:17 PM) [place] URINE AND UA pH >=9.0 5.0 - 8.0 12/19 [place] *ABN* /2015 [place] (12/20/15 6:17 PM) URINE AND UA Ketones Negative Negative 12/19 [place] *NA* /2015 [place] (12/20/15 6:17 PM) URINE AND UA Protein Trace Negative 12/19 [place] *ABN* /2015 [place] (12/20/15 6:17 PM) URINE AND UA Bili Negative Negative 12/19 [place] *NA* /2015 [place] (12/20/15 6:17 PM) URINE CHEM U Preg Negative Negative 12/19 (12/20/15 6:17 PM) [place] Pathology Reports No Data Provided for This Section Diagnostic Reports Report Value Date Source Abdomen acute series w Clinical Indication: Worseni ng right upper quadrant pain, had EGD this morning; 04/08/2016 [facility] chest 1 view DX Comparison: None FINDINGS: The single view of the chest shows no consolidation effusion or pneumothorax. Heart size, vascular markings, and osseous structures are within normal limits. The supine and upright views of the abdomen shows a non-obstructive bowel gas pattern. There is no abnormal dilatation of bowel loops. No significant air fluid levels. There is no pneumoperitoneum. Ther e are no radiopaque densitie s noted. There are no clinically significant osseous abnormalities noted. IMPRESSION: 1. No acute radiographic abnormalities of the ch est. 2. No acute radiographic abnormalities of the ab domen. SL: [id number] Gallbladder scan HIDA w HEPATOBILIARY SCAN: 12/23/2015 [facility] HISTORY: Acute right upper q uadrant pain, no evidence of gallstones by ultrasound.. PROCEDURE: 6.4 mCi of techne tium 99m Choletec were given intravenously followed by anterior imaging over the upper abdomen. FINDINGS: There is prompt up take and excretion of activity by the liver with prompt visualization of the biliary tree, gallbladder and small bowel. IMPRESSION: Normal hepatobiliary scan. SL [id number] Abdomen/Pelvis wo IV Study: Abdomen/Pelvis wo IV contrast CT 12/21/2015 5:29 PM CDT 12/21/2015 [facility] contrast CT Patient Name: JAYE PÉREZ MR: [id number] : 1990; Age: 25 years y/o Female Ordering Physician: Yarelis Heck Clinical Indication: Acute right lower abdominal quadrant pain for 3 days. Comparison: 12/30/2015. TECHNIQUE: Multiple contiguo us transaxial CT images were obtained through the abdomen and pelvis. Sagittal and coronal reformatted images were prepared. IV CONTRAST: None. GI CONTRAST: None. CT ABDOMEN WITHOUT CONTRAST: BOWEL: Nonspecific nonobstru cted bowel gas pattern. Normal appendix. Under distended appropriately thick-walled stomach. PERITONEUM: No free intraperitoneal fluid or air . RETROPERITONEUM: Multiple sc attered subcentimeter retroperitoneal mesenteric lymph nodes greatest in the right lower abdominal quadrant. No lymphadenopathy, mass, or focal fluid collection is appreciate d. Mild hazy induration is seen in the central m esenteric fat diffusely. ABDOMINAL AORTA: Normal caliber abdominal aorta. SOLID ORGANS: The nonenhance d liver, gallbladder, spleen, pancreas, adrenal glands and kidneys are normal. Incidental contrast in the gallbladder, current examination consistent with vicarious excretion from the prior examination. LUNG BASES: Clear lung bases. Normal size heart. OSSEOUS STRUCTURES: No fract ure, dislocation, or suspicious focal osseous lesion. CT PELVIS WITHOUT CONTRAST: URINARY BLADDER: Normal nonopacified urinary makenna dder. SOLID ORGANS: Normal uterus and ovaries with a small low-attenuation left ovarian lesion at 1.8 cm suspicious for a cyst or complex cysts. LYMPH NODES: Small to mildly enlarged benign-appearing bilateral inguinal lymph nodes. FREE FLUID: No free pelvic fluid. OSSEOUS STRUCTURES: No fract ure, dislocation, or suspicious focal osseous lesion. IMPRESSION: [...] 2. Suspect small mildly complex left ovarian cys t. SL: [facility]- Abdomen RUQ US Patient Name: JAYE PÉREZ 6 Ani Parson : 1990; Age: 25 years y/o Female MR: [id number] Study: Abdomen RUQ US dated 12/21/2015 Clinical Indication: Upper abdominal pain, acute ; Comparison: CT abdomen pelvis dated 12/21/2015 TECHNIQUE: Grayscale and limited color sonographic evaluation of the right upper quadrant of the abdomen and gallbladder region was performed with standard technique. FINDINGS: LIVER: The visualized liver shows n ormal contour, size, and morphology with normal parenchymal echo texture. BILE DUCTS: The intrahepatic and extrahe patic bile ducts are not dilated with the common bile duct measuring 2.8 mm. The distal common bile duct is not well seen. GALLBLADDER: There are no gallstones, gal lbladder sludge, pericholecystic fluid or wall thickening. PANCREAS: The visualized pancreas appears unremarkable. RIGHT KIDNEY: The right kidney measures 10.3 x 3.9 x 4.6 cm. No right pelvocaliectasis, n o right nephrolithiasis and no right renal mass lesion identified. ASCITES: There is no right upper quadrant abdominal ascit es. IMPRESSION: 1. Unremarkable right upper quadrant abdominal u ltrasound. SL: [facility]ER[facility]-PC Pelvis w Transvag and Patient Name: JAYE PÉREZ 02/2016 [facility] Pelvis Doppler US : 1990; Age: 25 years y/o Female MR: [id number] Study: Pelvis w Transvag and Pelvis Doppler US 9:23 PM CDT Ordering Physician: Yarelis Heck Clinical Indication: Abdominal pain, acute; Comparison: None US PELVIS Technique: Grayscale, color and Doppler transabdominal and transvaginal imaging of the pelvis was performed with standard technique. FINDINGS: TRANSABDOMINAL PELVIC ULTRASOUND: UTERUS: The transabdominal p elvic ultrasound evaluation of the uterus shows that the heterogeneous uterus measures about 6.9 cm x 3.6 cm x 4.9 cm in size. The uterine parenchyma is not well assessed on the transabdominal pelvic ultrasound. OVARIES: The ovaries are not well seen on the transabdominal portion of the exam, related to bowel gas in the pelvis. OTHER FINDINGS: The transabd ominal sonographic images show no free fluid in the pelvic cul-de-sac. IMPRESSION: 1. Limited assessment of the uterine parenchyma and ovaries on the transabdominal pelvic ultrasound, related to bowel gas in the pelvis. This necessitated a pelvic transvaginal ultrasound. Recommend cor relation with the transvaginal pelvic ultrasound report. TRANSVAGINAL PELVIC ULTRASOUND: UTERUS: The pelvic transvagi nal sonographic images show normal uterine contour and morphology. There is normal parenchymal echotexture. The endometrial stripe measures 8.0 mm in thickness. OVARIES: The transvaginal pe lvic sonographic images show that the right ovary [...] No definite fibroids. 2. No sonographic evidence o f ovarian torsion detected. No definite adnexal mass detected. SL: [facility] ED Abdomen/Pelvis IV CT SCAN OF THE ABDOMEN AND PELVIS WITH CONTRAST. 12/20/2015 [facility] contrast only CT HX: Clinical Indication: Low er abdominal pain. Urinary urgency. Nausea and vomiting. . Comparison: None Technique: Helical CT images were obtained from the domes the diaphragms to the symphysis pubis following the administration of intravenous contrast. No p.o. contrast was given. ABDOMEN AND PELVIS: The lung bases are clear. The heart is normal in size. Grossly normal gallbladder. Diffuse fatty liver infiltration. The spleen, pancreas, and adrenals are normal in appearance. The kidneys show good, symmetric al, excretion without hydronephrosis. Duplicated left collecting system. The bladder is nondistended. Prominent heterogen eous uterus and adnexas. IMPRESSION: 1. No definite acute abdominal or pelvic process detected. SL: [facility] Consultation Notes No Data Provided for This Section Discharge Summaries No Data Provided for This Section History and Physicals No Data Provided for This Section Vital Signs Vital Sign Value Date Comments Source Respitory Rate 16 04/11/2016 [facility] Temperature Oral (F) 98 F 04/11/2016 [place] [facility] Systolic (mm Hg) 118 04/11/2016 [place] Diastolic (mm Hg) 71 04/11/2016 [place] Heart Rate 77 04/11/2016 [place] Respitory Rate 18 04/11/2016 [facility] Temperature Oral (F) 97.4 F 04/11/2016 [place] Heart Rate 72 04/11/2016 [facility] Systolic (mm Hg) 125 04/11/2016 [place] Diastolic (mm Hg) 78 04/11/2016 [place] Temperature Oral (F) 98.1 F 04/11/2016 [place] Systolic (mm Hg) 123 04/11/2016 [place] Diastolic (mm Hg) 80 04/11/2016 [place] Heart Rate 72 04/11/2016 [place] Respitory Rate 18 04/11/2016 [place] Height 162.56 cm 04/08/2016 [place] Weight 88.636 04/08/2016 [place] BMI Calculated 33.54 04/08/2016 [place] Height 162.56 cm 04/08/2016 [place] Weight 88.636 04/08/2016 [place] BMI Calculated 33.54 04/08/2016 [place] Systolic (mm Hg) 118 12/24/2015 [place] Diastolic (mm Hg) 74 12/24/2015 [place] Temperature Oral (F) 98.1 F 12/24/2015 [place] Heart Rate 64 12/24/2015 [place] Respitory Rate 18 12/24/2015 [place] Systolic (mm Hg) 117 12/24/2015 [place] Diastolic (mm Hg) 74 12/24/2015 [place] Respitory Rate 18 12/24/2015 [place] Heart Rate 65 12/24/2015 [place] Temperature Oral (F) 97.8 F 12/24/2015 [place] Temperature Oral (F) 97.4 F 12/24/2015 [place] Heart Rate 64 12/24/2015 [place] Systolic (mm Hg) 130 12/24/2015 [place] Diastolic (mm Hg) 79 12/24/2015 [place] Respitory Rate 18 [facility] 162.56 cm 12/22/2015 [place] BMI Calculated 32.68 12/22/2015 [place] Weight 86.364 12/22/2015 [place] Height 162.56 cm 12/21/2015 [place] BMI Calculated 33.54 12/21/2015 [place] Weight 88.636 12/21/2015 [place] Heart Rate 85 12/21/2015 [place] Temperature Oral (F) 98.1 F 12/21/2015 [place] Respitory Rate 16 12/21/2015 [place] Systolic (mm Hg) 135 12/21/2015 [place] Diastolic (mm Hg) 75 12/21/2015 [place] Weight 87.727 12/20/2015 [facility] [place] Temperature Oral (F) 97.9 F 12/20/2015 [facility] Respitory Rate 18 12/20/2015 [facility] Systolic (mm Hg) 143 12/20/2015 [facility] Diastolic (mm Hg) 78 12/20/2015 [facility] Rate 98 12/20/2015 [facility] Encounters Location Location Encounter Encounter Reason Attending ADM DC Stat us Source Details Type Number For Provider Date Date Visit [facility] Emergency [id number] Siddharth 12/19 12/20 [facility] [place] /2015 Pam ramirez [facility] OBS [id number] Janeana 12/20 12/24 [facility] Observation [place] /2015 [facility] Inpatient [id number] Juneana 04/08 04/11 [facility] /2015 [facility] Procedures Procedure Code Date Perfomer Comments Source Tonsillectomy [id number] [facility] Assessment and Plan Assessment and Plan Date Source Extracted from:Title: Clinical Document 04/11/2016 [facility] Author: Vidal Plunkett MD Date: 04/11/16 Progress Note - Daily [facility] Completed: Mar, 17:36 by Vidal Plunkett MD RM: [id number] - 1P, BL PN3 MEE PÉREZ 26y (: 1990) F Attending: Payton Lynne [...] 9.0 Hurtado still necessary (Yes/No): Line still neces juliane (Yes/No): Vitals Tmp(F) Pulse BP RR SpO2 FIO2 04/11 08:00 98 77 118/71 16 100 --- 04/11 04:20 97.4 72 125/78 18 98 --- 04/10 23:55 98.1 72 123/80 18 97 --- 04/10 20:08 98.0 75 124/78 18 99 --- 04/10 16:00 98.3 82 117/78 18 --- --- 24 Hr Tmax: 98.1F (36.72c) at 04/10 23:5 5 Vital Signs are the last 5 in the past 48 hours. Date Wt(kg) Wt(lb) Ht(cm) Ht(in) Method 04/08 (initial) 88.64 195.00 162.56 64.00 Estimated I&O Record In Out Bal 04/11 24hr Tot 0 0 0 04/10 24hr Tot 2635 0 2635 Medications (13) Active Scheduled Meds (5): 04/09/16 dicyclomine (Bentyl) 20 mg PO QID 04/09/16 gabapentin (Neurontin 300 mg oral capsule) 300 mg P O TID 04/09/16 metoclopramide (Reglan) 10 mg IVP [...] diet to bariatric soft sidet 5. Dc hoome today. F/U Dr Pérez in 1 -2 weeks. Pt to call to schedule office vist Extracted from:Title: Discharge Summary Author: Payton Lynne MD Date: 04/11/16 Discharge Summary [facility] Hospitalist Name: Jaye Pérez Record Number: [id number] Admission Date: 04/08/2016 Discharge Date: 04/11/2016 Copies to: Diagnoses: 1. Gastric ulcer - pain 2. Nicotine depen dence Procedures: none Chief Complaint: abdominal pain, N/V HPI: 26 year old F with pmh of gastric u lcer, ?pancreatitis who just had EGD completed today, complains of 2 weeks of intractable nausea and vomiting, and body aches. She has been vomiting roughly 2x/da y. But over the past 4 days, vomiting murguia s worsened in frequency to over 4-5xday. She [...] above Hospital course: patient did well with I V PPI and bowel rest with slow advancement to re-introduce clears/fulls and now soft. Vitals T98 BP18/71 R16 P77 HEENT; looks well Lungs clear Cardiovascular S1S2 RRR without murmur Abdomen soft, NT/ND with +BS Discharge condition: stable Recent signficant physical findings: Recent significant lab and radiology results: Discharge therapy: Medications see discharge medication reconciliation Diet low fat, soft, advance as able Activity as tolerated Follow up 1. PCP 1 week hospital follow up 2. Gastroenterology in 2 weeks Time spent with face to face evaluation and discharge care support < 30 minutes Extracted from:Title: Hospitalist H&P Author: Helen Dong MD Date: 04/08/16 Patient was admitted on 04/08/2016 Attending: Helen Dong MD Ph one: Service: Internal Medicine Code status: None Specified=FULL CODE Reason for Admission: INTRACTABLE VOMITING Working DRG: None Documented Isolation: None Documented Consulting Physicians: Vidal Plunkett MD Office: Service: Gas troenterology 26 year old F with pmh of gastric ulcer, ?pancreatitis who just had EGD completed today, complains of 2 weeks of intractable nausea and vomiting, and body aches. She has been vomiting roughly 2x/day. Bu t over the past 4 days, vomiting has wor sened in frequency to over 4-5xday. She noticed [...] point systems reviewed and are negative unless other chaves noted in HPI I&O Record In Out Bal 04/08 24hr Tot 1022 0 1022 04/07 24hr Tot 0 0 0 Lines, Tubes, and Drains: 04/08/2016 11:33 Peripheral Lines: Antec ubital Left 20 gauge Over the needle catheter Vitals Tmp(F) Pulse BP RR SpO2 FIO2 04/08 17:09 98.2 74 155/90 18 100 --- 04/08 16:15 98.2 80 135/84 18 99 --- 04/08 13:40 98.6 72 106/59 18 --- --- 04/08 12:04 ---- 83 133/81 18 --- --- 04/08 10:37 97.6 81 150/88 18 99 --- 24 Hr Tmax: 98.6F (37.00c) at 04/08 13:4 0 Vital Signs are the last 5 in the past 48 hours. Physical Exam General: alert, awake, NAD, well nourished HEENT: normocephalic, atraumatic, PERRLA , EOMI, normal pharynx, tongue midline, uvula midline, no cervical or posterior auricular lymphadenopathy Cardiovascular: rrr, no m/r/g, no JVD, n o carotid bruits, chest wall tenderness noted Respiratory: CTAB, no w/r/c, normal respiratory effort, symm etric air entry Abdomen: flat, ND, nl BS, tenderness karina ecially at right upper and right lower quadrants, with associated + muscle spasm, no HSM, no renal bruits Extremities: no edema, cyanosis Integumentary: dry, intact. Neurologic: no focal deficits Psych: normal affect, no SI/HI Medications (9) Active Scheduled: (3) influenza virus vaccine (inactivated) quad PF 0.5 mL s yringe 0.5 mL, IM, Daily metoclopramide 5 mg, [...] 08) Ca 8.5 (APR 08) No qualifying melia a available Assessment and Plan: Intractable nausea and [...] Prophylaxis: SCDs, ambulation, as per protocol Code: Special Library Librarian spent with patient: 30 minutes. Extracted from:Title: Clinical Document 12/25/2015 [place] Author: Ethan Plunkett MD Date: 12/21/15 History and Physical Attending: Payton Lynne MD Ph one: Service: Emergency Medicine Service Code status: None Specified=FULL CODE Reason for Admission: INTRATABLE ABD PAIN,VOMITING,DEHYDRATI ON Working DRG: None Documented Isolation: None Documented Consulting Physicians: Cas Malcolm MD Office: MSO: [id number] Service: General Surgery CC: throwing up all the time HPI: This is a 25 yo w/ below PMHx who p /w 2 day h/o N/V and abdominal pain. Located along R side of abdomen (RUQ>RLQ), w/ radiation to R flank and back. Described as sharp and constant. Nothing aggravates or alleviates the pain. No un usual foods eaten, nobody around her has these symptoms. Has h/o PUD (seen by EGD) but these symptoms are different. Pt was seen in the ER the day before w/ the s aruna symptoms, was given Tylenol 3 and zo rordigo which did not help the symptoms (vomited back up). Last BM was the day before admission. Denies CP, SOB, urinary symptoms, fevers/chills, cough, or any other additional complaints. PMHx: Gastric ulcer PSHx: tonsillectomy FHx: reviewed and noncontributory SHx: Current everyday smoker Denies EtOH, illicit drugs Meds: See medicine reconciliation Medication List Active Medications Ordered sodium chloride: 10 mL, IVP, PRN, PRN: Line Flush . Prescribed acetaminophen-codeine: 1 - 2 tab, PO, [...] 0.9% IV: 1,000 mL, 2,000 ml/hr, IV, O NCE. Sodium Chloride 0.9% IV: 1,000 mL, PYXIS, ONCE. Sodium Chloride 0.9% IV: 1,000 mL, 2,000 ml/hr, IV, O NCE. Sodium Chloride 0.9% IV: 1,000 mL, PYXIS, ONCE. Allergies: NKDA ROS: See HPI. All other systems reviewed by myself are negative u nless noted above. Physical Exam: Vitals Tmp(F) Pulse BP RR SpO2 FIO2 12/20 18:35 ---- 76 124/72 16 100 --- 12/20 15:41 98.0 82 130/76 16 100 --- 24 Hr Tmax: 98.0F (36.67c) at 12/20 15:4 1 Vital Signs are the last 5 in the past 48 hours. General: NAD, nontoxic appearing HEENT: NCAT, PERRL, dry MM, no JVD Cardiovascular: RRR, S1S2 Respiratory: CTAB Abdomen: soft, +BS, ND, TTP over R side of abdomen and flank Extremities: no b/l LE edema Skin: no rashes Neurologic: comprehension and speech intact, CN III-XII irene sly intact Musculoskeletal: symmetric strength in all extremities [...] Micro: none Imaging: CT abd/pelvis: 1. Nonspecific nonobstruc daphne bowel gas pattern as above discussed. No evidence of acute appendicitis. Multiple scattered subcentimeter retroperitoneal mesenteric lymph nodes are seen grea test in the right lower abdominal quadra nt. Additionally, mild hazy diffusely increased attenuation is seen in the central mesentery without focal localization. Findings are suspicious for a nonspecific enteritis or mesenteric adenitis. 2. Suspect small mildly complex left ovarian cyst. RUQ u/s: Unremarkable right upper quadrant abdominal ultraso und. Assessment and Plan: This is a 25 [...] control Prophylaxis: ambulation Diet: NPO Ethan Knutson Plan of Care No Data Provided for This Section Social History Social History Date Source Social History TypeResponse 04/08/2016 [facility] Substance Abuse Use: None. Alcohol Never Smoking Status Current some day smoker; Ready to change : No; Concerns about tobacco use in household: No; Exposure to Tobacco Smoke None; Other Tobacco Frequency half a pack; Cigarette Smoking Last 365 Days No; Reg Smoking Cessation Counseling No Family History No Data Provided for This Section Advance Directives No Data Provided for This Section Functional Status No Data Provided for This Section
--- OUTSIDE RECORDS SUMMARY | 2020-01-16 19:19 | XMS REPORT | Continuity of Care Document ---
:1990 Author Organization [facility] t Address 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 07-12 [facility] disease disease 00:00: st 00 Anxiety Anxiety Disease Active 2016-06 [place] 07-12 [facility] 00:00: st 00 Iron Iron Disease Active 2016-06 [place] deficiency deficiency 07-12 Vt thodi anemia anemia 00:00: st 00 Dehydratio Dehydratio Disease Active 2016-06 [place] n 1-24 [facility] 00:00: st 00 Tachycardi Tachycardi Disease Active 2016-06 [place] a a 1-22 [facility] 00:00: st 00 INTRACTABL Diagnosis Active 2015-062016-04-20 Memoria E VOMITING 0-27 16:37:00 l 00:00: Eb INTRACTABL 00 E VOMITING [facility] Active 2015-062016-04-08 Memoria PAIN 0-27 15:58:00 l 00:00: [place] ABDOMINAL 00 PAIN Active 04/08/2016 [facility] [place] VOMITING Diagnosis Active 2015-12-21 M emoria 7-10 19:15:00 l VOMITING 00:00: Garry n 00 Active 12/21/2015 [facility] INTRATABLE Diagnosis Active 2016-01-15 Memoria ABD 12-20 12:01:00 l PAIN,VOMIT 00:00: Garry n ING,DEHYDR INTRATABLE 00 ATION ABD PAIN,VOMIT ING,DEHYDR ATION Active 12/21/2015 [facility]/S Diagnosis Active 2016-01-12 Memoria TOMACH 12-19 09:13:00 l PAIN 00:00: [place] VOMITING/S 00 TOMACH PAIN Active 12/20/2015 [facility] Gastric Problem Active 2016-04-14 Kehinde batsheva ulcer 00:11:43 l (disorder) Gastric Her pelaez ulcer (disorder) Active Problem 04/14/2016 [facility] CYCLICAL Diagnosis Active 2016-04-20 M emoria VOMITING, 16:37:00 l INTRACTABL CYCLICAL He rmann E VOMITING, INTRACTABL E Active [facility] Discharge Problem 2015-062016-04-14 2016-04-14 Memoria Diagnosis: 0 00:11:43 00:11:43 l Abdominal 05:00: Eb pain, Discharge 00 acute, Diagnosis: epigastric Abdominal pain, acute, epigastric 04/08/2016 04/14/2016 [facility] Discharge Problem 2015-12-24 2015-12-24 Memoria Diagnosis: 12-19 00:19:47 00:19:47 l Leukocytos 05:00: Garry n is Discharge 00 Diagnosis: Leukocytos is 12/20/2015 12/24/2015 [facility] Discharge Problem 2015-12-24 2015-12-24 Memoria Diagnosis: 12-19 00:19:47 00:19:47 l Abdominal 05:00: Eb pain Discharge 00 Diagnosis: Abdominal pain 12/20/2015 12/24/2015 [facility] Allergies, Adverse Reactions, Alerts Allergy Allergy Status Severity Reaction(s) Onset Inactive Treating Comm ents Source Name Type Date Date Clinician Bina Dennis Active GI 2016-06 Nausea & [place] xacin ty to Intolerance 07-04 Vomiting Met hodi adverse 00:00: st reaction 00 s to drug Social History Social Habit Start Date Stop Date Quantity Comments Source Sex Assigned At [facility] ethodist Social History 2016-04-08 2016-04-08 [facility] ermann 22:45:24 22:45:24 Medications Ordered Filled Start Stop Current Ordering Indication Dosage Frequency Signature Comments Components Source Medication Medication Date Date Medication? Clinician (SIG) Name Name acetaminoph 2016-06 Yes 1{tbl} Q4H Take 1 [place] en-codeine 1-25 tablet by Meth felipe (TYLENOL 15:02: mouth st WITH 10 every 4 CODEINE #3) (four) 300-30 mg hours as per tablet needed for moderate pain. promethazin 2016-06 Yes 25mg Q6H Take 25 mg Saunders e 1-25 by mouth Methodi (PHENERGAN) 15:02: every 6 st 25 MG 10 (six) tablet hours as needed for nausea or vomiting. ranitidine 2016-06 Yes 150mg QD Take 150 [place] (ZANTAC) 1-25 mg by Methodi 150 MG 15:02: mouth st tablet 10 nightly as needed for heartburn. Sucralfate 2015-06 Yes 1 gm = 10 Me moria 100 MG/ML 0-30 mL, PO, l Oral 16:50: QID, # Eb Suspension 12 1200 mL, 0 [Carafate] Refill(s), Pharmacy: [place] [id number] Sucralfate 2015-06 Yes 1 gm = 10 Me moria 100 MG/ML 0-30 mL, PO, l Oral 16:50: QID, # Eb Suspension 12 1200 mL, 0 [Carafate] Refill(s), Pharmacy: [facility] dicyclomine 2015-06 Yes 20 mg = 1 M emoria 20 mg oral 0-30 tab, PO, l tablet 16:50: QID, # 56 Garry n 00 tab, 1 Refill(s), Pharmacy: [facility] gabapentin 2015-06 Yes 300 mg = 1 M emoria 300 MG Oral 0-30 cap, PO, l Capsule 16:50: TID, # 30 Verna nn [Neurontin] 00 cap, 1 Refill(s), Pharmacy: [facility] dicyclomine 2015-06 Yes 20 mg = 1 M emoria 20 mg oral 0-30 tab, PO, l tablet 16:50: QID, # 56 Garry n 00 tab, 1 Refill(s), Pharmacy: [place] [id number] gabapentin 2015-06 Yes 300 mg = 1 M emoria 300 MG Oral 0-30 cap, PO, l Capsule 16:50: TID, # 30 Verna nn [Neurontin] 00 cap, 1 Refill(s), Pharmacy: [id number] Protonix 2015-06 No Notes: For Mem oria 0-29 IV push l 13:00: reconstitu Eb 00 te with 10 ml 0.9% sodium chloride and push over 2 minutes. (Same as: Protonix) Protonix 2015-06 No Notes: For Mem oria 0-29 IV push l 13:00: reconstitu Eb 00 te with 10 ml 0.9% sodium chloride and push over 2 minutes. (Same as: Protonix) Bentyl 2015-06 No Notes: Memoria 0-29 (Same as: l 02:00: Bentyl) [place] Sucralfate 2015-06 No Notes: Memor ia 100 MG/ML 0-29 Enteral l Oral 02:00: feeds may Eb Suspension 00 interfere [Carafate] with the absorption of this medication . Shake well. Take 1 hr before or 2 hrs after antacids, dairy pdt, minerals & meals. (Same As: Carafate) Bentyl 2015-06 No Notes: Memoria 0-29 (Same as: l 02:00: Bentyl) Eb Sucralfate 2015-06 No Notes: Memor ia 100 MG/ML 0-29 Enteral l Oral 02:00: feeds may [place] Suspension 00 interfere [Carafate] with the absorption of this medication . Shake well. Take 1 hr before or 2 hrs after antacids, dairy pdt, minerals & meals. (Same As: Carafate) Reglan 2015-06 No Notes: Memoria 0-28 (Same as: l 23:00: Reglan) [place] 00 Reglan 2015-06 No Notes: Memoria 0-28 (Same as: l 23:00: Reglan) Eb Acetaminoph 2015-06 No Notes: Do M emoria en 0-28 not exceed l 22:41: 4 gm/day. Eb (Same as: Tylenol) Acetaminoph 2015-06 No Notes: Do M emoria en 0-28 not exceed l 22:41: 4 gm/day. [place] (Same as: Tylenol) pantoprazol 2015-06 No Notes: Kehinde batsheva e 0-28 Tablet l 21:30: should not [place] 00 be chewed or crushed. (Same as: Protonix) pantoprazol 2015-06 No Notes: Kehinde batsheva e 0-28 Tablet l 21:30: should not [place] 00 be chewed or crushed. (Same as: Protonix) Sucralfate 2015-06 No Notes: Memor ia 100 MG/ML 0-28 Enteral l Oral 18:00: feeds may Eb Suspension 00 interfere [Carafate] with the absorption of this medication . Shake well. Take 1 hr before or 2 hrs after antacids, dairy pdt, minerals & meals. (Same As: Carafate) gabapentin 2015-06 No Notes: Memor ia 300 MG Oral 0-28 (Same as: l Capsule 18:00: Neurontin) Herm bean [Neurontin] 00 Sucralfate 2015-06 No Notes: Memor ia 100 MG/ML 0-28 Enteral l Oral 18:00: feeds may [place] Suspension 00 interfere [Carafate] with the absorption of this medication . Shake well. Take 1 hr before or 2 hrs after antacids, dairy pdt, minerals & meals. (Same As: Carafate) gabapentin 2015-06 No Notes: Memor ia 300 MG Oral 0-28 (Same as: l Capsule 18:00: Neurontin) Herm bean [Neurontin] 00 Zofran ODT 2015-06 No Notes: Memor ia 0-28 (Same as: l 15:58: Zofran [place] 00 ODT) Zofran ODT 2015-06 No Notes: Memor ia 0-28 (Same as: l 15:58: Zofran Eb 00 ODT) influenza 2015-06 No Notes: Memori a virus 0-28 (Same as: l vaccine, 14:00: Fluzone Garry n inactivated 00 Quadrivale nt, Fluarix Quadrivale nt) For 3 years of age and older (0.5 mL IM) Shake well before use influenza 2015-06 No Notes: Memori a virus 0-28 (Same as: l vaccine, 14:00: Fluzone Garry n inactivated 00 Quadrivale nt, Fluarix Quadrivale nt) For 3 years of age and older (0.5 mL IM) Shake well before use Metoclopram 2015-06 No Notes: Kehinde batsheva rebecca 5 MG 0-28 (Same as: l Oral Tablet 12:30: Reglan) Her pelaez [Reglan] 00 Take 30 min before meals Protonix 2015-06 No Notes: Memoria 0-28 Tablet l 12:30: should not Eb 00 be chewed or crushed. (Same as: Protonix) pantoprazol 2015-06 No Notes: For Memoria e 0-28 IV push l 12:30: reconstitu [place] 00 te with 10 ml 0.9% sodium chloride and push over 2 minutes. (Same as: Protonix) Metoclopram 2015-06 No Notes: Kehinde batsheva rebecca 5 MG 0-28 (Same as: l Oral Tablet 12:30: Reglan) Her pealez [Reglan] 00 Take 30 min before meals Protonix 2015-06 No Notes: Memoria 0-28 Tablet l 12:30: should not Eb 00 be chewed or crushed. (Same as: Protonix) pantoprazol 2015-06 No Notes: For Memoria e 0-28 IV push l 12:30: reconstitu [place] 00 te with 10 ml 0.9% sodium chloride and push over 2 minutes. (Same as: Protonix) Protonix 2015-06 No Notes: For Mem oria 0-28 IV push l 09:43: reconstitu Eb 00 te with 10 ml 0.9% sodium chloride and push over 2 minutes. (Same as: Protonix) Protonix 2015-06 No Notes: For Mem oria 0-28 IV push l 09:43: reconstitu [place] 00 te with 10 ml 0.9% sodium chloride and push over 2 minutes. (Same as: Protonix) Phenergan 2015-06 No Notes: Memori a 0-28 (Same as: l 00:28: Phenergan) Eb 00 Zofran 2015-06 No Notes: Memoria 0-28 (Same as: l 00:28: Zofran) [place] 00 MEDICATION WASTE Product Size: 4 mg Product Wasted: ___ mg Phenergan 2015-06 No Notes: Memori a 0-28 (Same as: l 00:28: Phenergan) Eb 00 Zofran 2015-06 No Notes: Memoria 0-28 (Same as: l 00:28: Zofran) Eb 00 MEDICATION WASTE Product Size: 4 mg Product Wasted: ___ mg Morphine 2015-06 No Notes: Memoria 0-28 (Same l 00:27: as:MORPhin [place] 00 e Sulfate) Morphine 2015-06 No Notes: Memoria 0-28 (Same l 00:27: as:MORPhin Eb 00 e Sulfate) Ibuprofen 2015-06 No Notes: Memori a 0-27 (Same as: l 23:20: Motrin) Eb 00 "Do Not Crush" Take with food. Ibuprofen 2015-06 No Notes: Memori a 0-27 (Same as: l 23:20: Motrin) Eb 00 "Do Not Crush" Take with food. Saline 2015-06 No Notes: Memoria Flush 0.9% 0-27 (Same as: l 21:35: BD [place] 00 Posiflush) Sodium 2015-06 No 1,000 mL, Memori a Chloride 0-27 Rate: 125 l 0.154 21:35: ml/hr, Eb MEQ/ML 00 Infuse Injectable over: 8 Solution hr, Route: IV, Dosing Weight 88.636 kg, Total Volume: 1,000, Start date: 04/08/16 16:35:00 CDT, Duration: 30 day, Stop date: 05/08/16 16:34:00 [employer] Ondansetron 2015-06 No Notes: Kehinde batsheva 0-27 (Same as: l 21:35: Zofran) Eb 00 MEDICATION WASTE Product Size: 4 mg Product Wasted: ___ mg Saline 2015-06 No Notes: Memoria Flush 0.9% 0-27 (Same as: l 21:35: BD Eb 00 Posiflush) Sodium 2015-06 No 1,000 mL, Memori a Chloride 0-27 Rate: 125 l 0.154 21:35: ml/hr, [place] MEQ/ML 00 Infuse Injectable over: 8 Solution hr, Route: IV, Dosing Weight 88.636 kg, Total Volume: 1,000, Start date: 04/08/16 16:35:00 CDT, Duration: 30 day, Stop date: 05/08/16 16:34:00 [employer] Ondansetron 2016-1 No Notes: Kehinde batsheva 0-27 (Same as: l 21:35: Zofran) [place] MEDICATION WASTE Product Size: 4 mg Product Wasted: ___ mg Zofran 2015-06 No 4 mg, Memoria 0-27 Route: l 20:22: IVP, Drug Eb form: INJ, ONCE, Dosing Weight 88.636, kg, Priority: STAT, Start date: 04/08/16 15:22:00 CDT, Stop date: 04/08/16 15:22:00 CDT Zofran 2015-06 No 4 mg, Memoria 0-27 Route: l 20:22: IVP, Drug form: INJ, ONCE, Dosing Weight 88.636, kg, Priority: STAT, Start date: 04/08/16 15:22:00 CDT, Stop date: 04/08/16 15:22:00 CDT gabapentin 2015-06 No 300 mg = 1 M emoria 300 MG Oral 0-27 cap, PO, l Capsule 19:52: TID, # 30 Verna nn [Neurontin] 00 cap, 1 Refill(s) Promethazin 2015-06 No 25 mg = 1 M emoria e 0-27 supp, MO, l Hydrochlori 19:52: Q6H, PRN He rmbean de 25 MG 00 Nausea & Rectal Vomiting, Suppository X 3 day, # [Phenergan] 12 supp, 0 Refill(s) Ondansetron 2015-06 No 4 mg = 1 Me moria 4 MG 0-27 tab, PO, l Disintegrat 19:52: BID, PRN He rmbean ing Tablet 00 Nausea and [Zofran] Vomiting, Dissolve tab under tongue, X 5 day, # 10 tab, 0 Refill(s) gabapentin 2015-06 No 300 mg = 1 M emoria 300 MG Oral 0-27 cap, PO, l Capsule 19:52: TID, # 30 Verna nn [Neurontin] 00 cap, 1 Refill(s) Promethazin 2015-06 No 25 mg = 1 M emoria e 0-27 supp, MO, l Hydrochlori 19:52: Q6H, PRN He rmann de 25 MG 00 Nausea & Rectal Vomiting, Suppository X 3 day, # [Phenergan] 12 supp, 0 Refill(s) Ondansetron 2015-06 No 4 mg = 1 Me moria 4 MG 0-27 tab, PO, l Disintegrat 19:52: BID, PRN He rmann ing Tablet 00 Nausea and [Zofran] Vomiting, Dissolve tab under tongue, X 5 day, # 10 tab, 0 Refill(s) pantoprazol 2015-06 No Notes: Kehinde batsheva e 0-27 (Same as: l 16:05: Protonix) Metoclopram 2015-06 No Notes: Kehinde batsheva rebecca 0-27 (Same as: l 16:05: Reglan) [place] Saline 2015-06 No Notes: Memoria Flush 0.9% 0-27 (Same as: l 16:05: BD [place] Posiflush) Sodium 2015-06 No 1,000 mL, Memori a Chloride 0-27 2,000 l 0.154 16:05: ml/hr, Eb MEQ/ML 00 Infuse Injectable Over: 30 Solution minutes, Route: IV, 1,000, Drug form: INJ, ONCE, Priority: STAT, Dosing Weight 88.636 kg, Start date: 04/08/16 11:05:00 CDT, Duration: 1 doses or times, Stop date: 04/08/16 11:05:00 CDT Hydromorpho 2015-06 No Notes: Kehinde batsheva ne 0-27 Same as: l 16:05: Dilaudid pantoprazol 2015-06 No Notes: Kehinde batsheva e 0-27 (Same as: l 16:05: Protonix) Metoclopram 2015-06 No Notes: Kehinde batsheva rebecca 0-27 (Same as: l 16:05: Reglan) Eb Saline 2015-06 No Notes: Memoria Flush 0.9% 0-27 (Same as: l 16:05: BD Eb Posiflush) Sodium 2015-06 No 1,000 mL, Memori a Chloride 0-27 2,000 l 0.154 16:05: ml/hr, [place] MEQ/ML 00 Infuse Injectable Over: 30 Solution minutes, Route: IV, 1,000, Drug form: INJ, ONCE, Priority: STAT, Dosing Weight 88.636 kg, Start date: 04/08/16 11:05:00 CDT, Duration: 1 doses or times, Stop date: 04/08/16 11:05:00 CDT Hydromorpho 2015-06 No Notes: Kehinde batsheva ne 0-27 Same as: l 16:05: Dilaudid Eb 00 Remove old No Remove Memor ia Nicotine 7-14 old l patch 02:00: Nicotine Eb before 00 patch applying before Q24H applying Q24H, ONCE, Drug form: MISC, Route: N/A, Daily, 12/24/15 21:00:00 CDT, Duration: 30 day, Stop date: 01/23/16 9:00:00 CDT Remove old No Remove Memor ia Nicotine 7-14 old l patch 02:00: Nicotine [place] before 00 patch applying before Q24H applying Q24H, ONCE, Drug form: MISC, Route: N/A, Daily, 12/24/15 21:00:00 CDT, Duration: 30 day, Stop date: 01/23/16 9:00:00 CDT Sucralfate Yes 1 gm = 10 Me moria 100 MG/ML 7-13 mL, PO, l Oral 22:14: QID, # Eb Suspension 00 1200 mL, 0 [Carafate] Refill(s), Pharmacy: [email or web address] pantoprazol Yes 40 mg = 1 M emoria e 40 mg 7-13 tab, PO, l oral 22:14: BID-Before Eb enteric 00 Meals, # coated 60 tab, 0 tablet Refill(s), Pharmacy: [email or web address] Sucralfate Yes 1 gm = 10 Me moria 100 MG/ML 7-13 mL, PO, l Oral 22:14: QID, # Eb Suspension 00 1200 mL, 0 [Carafate] Refill(s), Pharmacy: [email or web address] pantoprazol Yes 40 mg = 1 M emoria e 40 mg 7-13 tab, PO, l oral 22:14: BID-Before [place] enteric 00 Meals, # coated 60 tab, 0 tablet Refill(s), Pharmacy: [email or web address] Protonix No Notes: Memoria 7-13 Tablet l 21:30: should not [place] 00 be chewed or crushed. (Same as: Protonix) Protonix No Notes: Memoria 7-13 Tablet l 21:30: should not Eb 00 be chewed or crushed. (Same as: Protonix) potassium No Notes: Memori a chloride 7-13 (Same as: l 14:52: K-Dur 20) Eb "Do Not Crush" With food and full glass of water potassium No Notes: Memori a chloride 7-13 (Same as: l 14:52: K-Dur 20) Eb 00 "Do Not Crush" With food and full glass of water Tylenol No Notes: Do Memor ia 7-13 not exceed l 03:53: 4 gm/day. Eb (Same as: Tylenol) Tylenol No Notes: Do Memor ia 7-13 not exceed l 03:53: 4 gm/day. [place] 00 (Same as: Tylenol) Nicotine No Notes: Memoria 7-13 (Same as: l 00:42: Habitrol) Eb 00 "Remove old patch before applicatio n of new patch" WASTE: F/P - P Waste Black; E - P Waste Black Nicotine No Notes: Memoria 7-13 (Same as: l 00:42: Habitrol) Eb 00 "Remove old patch before applicatio n of new patch" WASTE: F/P - P Waste Black; E - P Waste Black Sucralfate No Notes: Memor ia 100 MG/ML 7-12 Enteral l Oral 18:00: feeds may [place] Suspension interfere [Carafate] with the absorption of this medication . Shake well. Take 1 hr before or 2 hrs after antacids, dairy pdt, minerals & meals. (Same As: Carafate) Sucralfate No Notes: Memor ia 100 MG/ML 7-12 Enteral l Oral 18:00: feeds may [place] Suspension 00 interfere [Carafate] with the absorption of this medication . Shake well. Take 1 hr before or 2 hrs after antacids, dairy pdt, minerals & meals. (Same As: Carafate) Sodium No 1,000 mL, Memori a Chloride -12 Rate: 20 l 0.154 17:54: ml/hr, Eb MEQ/ML 00 Infuse Injectable over: 50 Solution hr, Route: IV, Dosing Weight 86.364 kg, Total Volume: 1,000, Start date: 12/23/15 12:54:00 CDT, Duration: 2 hr, Stop date: 12/23/15 14:53:00 CDT Sodium 2016-0 No 1,000 mL, Memori a Chloride 7-12 Rate: 20 l 0.154 17:54: ml/hr, [place] MEQ/ML 00 Infuse Injectable over: 50 Solution hr, Route: IV, Dosing Weight 86.364 kg, Total Volume: 1,000, Start date: 12/23/15 12:54:00 CDT, Duration: 2 hr, Stop date: 12/23/15 14:53:00 CDT Protonix + 2015- No Notes: For Ivy emoria sodium 7-12 IV push l chloride 02:16: reconstitu Her pelaez 0.9% 10 ml 00 te with 10 INJ (PF) 20 ml 0.9% mL sodium chloride and push over 2 minutes. (Same as: Protonix) Protonix + 2016-0 No Notes: For Ivy emoria sodium 7-12 IV push l chloride 02:16: reconstitu Her pelaez 0.9% 10 ml 00 te with 10 INJ (PF) 20 ml 0.9% mL sodium chloride and push over 2 minutes. (Same as: Protonix) Sodium 2016-0 No 100 mL, Memoria Chloride 7-12 Rate: 10 l 0.154 01:36: ml/hr, [place] MEQ/ML 00 Infuse Injectable over: 10 Solution hr, Route: IVPB, Dosing Weight 86.364 kg, Total Volume: 100, Infuse at 8 mg / hr for 72 hours for GI bleeding, Start date: 12/22/15 20:36:00 CDT, Duration: 72 hr, Stop date: 12/25/15 20:35:00 CDT Sodium 2016-0 No 20 mL, Memoria Chloride 7-12 Rate: 240 l 0.9% IV 20 01:36: ml/hr, Verna nn mL + 00 Infuse pantoprazol over: 5 e 80 mg minutes, Route: IVP, Dosing Weight 86.364 kg, Total Volume: 20, Start date: 12/22/15 20:36:00 CDT, Duration: 1 doses or times, Stop date: 12/22/15 20:40:00 CDT Sodium 2015- No 100 mL, Memoria Chloride 12-22 Rate: 10 l 0.154 01:36: ml/hr, Eb MEQ/ML 00 Infuse Injectable over: 10 Solution hr, Route: IVPB, Dosing Weight 86.364 kg, Total Volume: 100, Infuse at 8 mg / hr for 72 hours for GI bleeding, Start date: 12/22/15 20:36:00 CDT, Duration: 72 hr, Stop date: 12/25/15 20:35:00 CDT Sodium No 20 mL, Memoria Chloride 12-22 Rate: 240 l 0.9% IV 20 01:36: ml/hr, Verna nn mL + 00 Infuse pantoprazol over: 5 e 80 mg minutes, Route: IVP, Dosing Weight 86.364 kg, Total Volume: 20, Start date: 12/22/15 20:36:00 CDT, Duration: 1 doses or times, Stop date: 12/22/15 20:40:00 CDT pantoprazol No Notes: Kehinde batsheva e 12-21 Same as: l 14:00: Protonix) [place] pantoprazol No Notes: Kehinde batsheva e 12-21 Same as: l 14:00: Protonix) Eb 00 Flagyl No Notes: Memoria 12-21 (Same as: l 02:00: Flagyl) [place] Avoid alcohol. Ciprofloxac No Notes: Do M emoria in 12-21 not l 02:00: refrigerat Eb 00 e Flagyl No Notes: Memoria 12-21 (Same as: l 02:00: Flagyl) Eb 00 Avoid alcohol. Ciprofloxac No Notes: Do M emoria in 12-21 not l 02:00: refrigerat Eb 00 e Phenergan No Notes: Memori a - (Same as: l 01:22: Phenergan) Eb 00 Sodium No 1,000 mL, Memori a Chloride 12-21 Rate: 125 l 0.154 01:22: ml/hr, Eb MEQ/ML 00 Infuse Injectable over: 8 Solution hr, Route: IV, Dosing Weight 88.636 kg, Total Volume: 1,000, Start date: 12/21/15 20:22:00 CDT, Duration: 30 day, Stop date: 01/20/16 20:21:00 CDT Saline No Notes: Memoria Flush 0.9% 7-11 (Same as: l 01:22: BD Eb 00 Posiflush) Ondansetron No Notes: Kehinde batsheva 7-11 (Same as: l 01:22: Zofran) Eb 00 MEDICATION WASTE Product Size: 4 mg Product Wasted: ___ mg Morphine No Notes: Memoria 7-11 (Same l 01:22: as:MORPhin [place] 00 e Sulfate) Phenergan No Notes: Memori a 7-11 (Same as: l 01:22: Phenergan) [place] 00 Sodium No 1,000 mL, Memori a Chloride 7-11 Rate: 125 l 0.154 01:22: ml/hr, Eb MEQ/ML 00 Infuse Injectable over: 8 Solution hr, Route: IV, Dosing Weight 88.636 kg, Total Volume: 1,000, Start date: 12/21/15 20:22:00 CDT, Duration: 30 day, Stop date: 01/20/16 20:21:00 CDT Saline No Notes: Memoria Flush 0.9% 7-11 (Same as: l 01:22: BD [place] 00 Posiflush) Ondansetron No Notes: Kehinde batsheva 7-11 (Same as: l 01:22: Zofran) Eb 00 MEDICATION WASTE Product Size: 4 mg Product Wasted: ___ mg Morphine No Notes: Memoria 7-11 (Same l 01:22: as:MORPhin [place] 00 e Sulfate) Morphine No Notes: Memoria 7-10 (Same l 22:05: as:MORPhin [place] 00 e Sulfate) Morphine No Notes: Memoria 7-10 (Same l 22:05: as:MORPhin [place] 00 e Sulfate) Morphine No Notes: Memoria 7-10 (Same l 21:04: as:MORPhin Eb 00 e Sulfate) Promethazin No Notes: Kehinde batsheva e 7-10 (Same as: l 21:04: Phenergan) [place] 00 Saline No Notes: Memoria Flush 0.9% 7-10 (Same as: l 21:04: BD Eb 00 Posiflush) Sodium No 1,000 mL, Memori a Chloride 7-10 2,000 l 0.154 21:04: ml/hr, [place] MEQ/ML 00 Infuse Injectable Over: 30 Solution minutes, Route: IV, 1,000, Drug form: INJ, ONCE, Priority: STAT, Dosing Weight 88.636 kg, Start date: 12/21/15 16:04:00 CDT, Duration: 1 doses or times, Stop date: 12/21/15 16:04:00 CDT Morphine No Notes: Memoria 7-10 (Same l 21:04: as:MORPhin Eb 00 e Sulfate) Promethazin No Notes: Kehinde batsheva e 7-10 (Same as: l 21:04: Phenergan) [place] 00 Saline No Notes: Memoria Flush 0.9% 7-10 (Same as: l 21:04: BD Eb 00 Posiflush) Sodium No 1,000 mL, Memori a Chloride 7-10 2,000 l 0.154 21:04: ml/hr, Eb MEQ/ML 00 Infuse Injectable Over: 30 Solution minutes, Route: IV, 1,000, Drug form: INJ, ONCE, Priority: STAT, Dosing Weight 88.636 kg, Start date: 12/21/15 16:04:00 CDT, Duration: 1 doses or times, Stop date: 12/21/15 16:04:00 CDT Ondansetron 2015- Yes 4 mg = 1 Me moria 4 MG Oral 7-10 tab, PO, l Tablet 05:00: BID, X 5 [place] [Zofran] 00 day, # 10 tab, 0 Refill(s) Ondansetron 0 Yes 4 mg = 1 Me moria 4 MG Oral 7-10 tab, PO, l Tablet 05:00: BID, X 5 Eb [Zofran] 00 day, # 10 tab, 0 Refill(s) Acetaminoph No 1 - 2 tab, Memoria en 300 MG / 7-10 PO, Q4H, l Codeine 04:52: PRN Pain, Verna nn Phosphate 00 X 2 day, # 30 MG Oral 20 tab, 0 Tablet Refill(s) [Tylenol with Codeine #3] Acetaminoph No 1 - 2 tab, Memoria en 300 MG / 7-10 PO, Q4H, l Codeine 04:52: PRN Pain, Verna nn Phosphate 00 X 2 day, # 30 MG Oral 20 tab, 0 Tablet Refill(s) [Tylenol with Codeine #3] Bentyl No Notes: Memoria 7-10 (Same as: l 03:35: Bentyl) Eb 00 Reglan No Notes: Memoria 7-10 (Same as: l 03:35: Reglan) [place] 00 Bentyl No Notes: Memoria 7-10 (Same as: l 03:35: Bentyl) Eb 00 Reglan No Notes: Memoria 7-10 (Same as: l 03:35: Reglan) Eb 00 GI cocktail No Notes: Kehinde batsheva 7-10 G.I. l 02:27: Cocktail = Eb 00 antacid with simethicon e 22.5 mL - lidocaine viscous 7.5 mL GI cocktail No Notes: Kehinde batsheva 7-10 G.I. l 02:27: Cocktail = Eb 00 antacid with simethicon e 22.5 mL - lidocaine viscous 7.5 mL Morphine No 4 mg, Memoria 7-10 Route: l 00:36: IVP, Drug [place] 00 form: INJ, ONCE, Dosing Weight 87.727, kg, Priority: STAT, Start date: 12/20/15 19:36:00 CDT, Stop date: 12/20/15 19:36:00 CDT Morphine No 4 mg, Memoria 7-10 Route: l 00:36: IVP, Drug Eb 00 form: INJ, ONCE, Dosing Weight 87.727, kg, Priority: STAT, Start date: 12/20/15 19:36:00 CDT, Stop date: 12/20/15 19:36:00 CDT Ondansetron No Notes: Kehinde batsheva 12-19 (Same as: l 23:37: Zofran) Eb 00 MEDICATION WASTE Product Size: 4 mg Product Wasted: ___ mg Sodium No 1,000 mL, Memori a Chloride 7-09 2,000 l 0.154 23:37: ml/hr, [place] MEQ/ML 00 Infuse Injectable Over: 30 Solution minutes, Route: IV, 1,000, Drug form: INJ, ONCE, Priority: STAT, Dosing Weight 87.727 kg, Start date: 12/20/15 18:37:00 CDT, Duration: 1 doses or times, Stop date: 12/20/15 18:37:00 CDT Saline No Notes: Memoria Flush 0.9% 12-19 (Same as: l 23:37: BD [place] 00 Posiflush) Ondansetron No Notes: Kehinde batsheva 12-19 (Same as: l 23:37: Zofran) [place] 00 MEDICATION WASTE Product Size: 4 mg Product Wasted: ___ mg Sodium No 1,000 mL, [facility] a Chloride 7 2,000 l 0.154 23:37: ml/hr, [place] MEQ/ML 00 Infuse Injectable Over: 30 Solution minutes, Route: IV, 1,000, Drug form: INJ, ONCE, Priority: STAT, Dosing Weight 87.727 kg, Start date: 12/20/15 18:37:00 CDT, Duration: 1 doses or times, Stop date: 12/20/15 18:37:00 CDT Saline No Notes: [facility] Flush 0.9% 12-19 (Same as: l 23:37: BD [place] 00 Posiflush) Immunizations Ordered Immunization Filled Immunization Date Status Commen ts Source Name Name Pneumococcal 2017-05-06 Completed [facility] Conjugate 13-Valent 00:00:00 Metho dist Vital Signs Vital Name Observation Time Observation Value Comments Source Respitory Rate 2016-04-11 13:00:00 [place] Temperature Oral (F) 2016-04-11 13:00:00 98 F Ani P[place] Systolic (mm Hg) 2016-04-11 13:00:00 Kehinde rial Eb Diastolic (mm Hg) 2016-04-11 13:00:00 Mem orial [place] Heart Rate 2016-04-11 13:00:00 [facility] Eb Respitory Rate 2016-04-11 09:20:00 [facility] al [place] Temperature Oral (F) 2016-04-11 09:20:00 97.4 F [facility] Heart Rate 2016-04-11 09:20:00 [facility] Systolic (mm Hg) 2016-04-11 09:20:00 Kehinde rial Eb Diastolic (mm Hg) 2016-04-11 09:20:00 Mem orial Eb Temperature Oral (F) 2016-04-11 04:55:00 98.1 F [facility] Eb Systolic (mm Hg) 2016-04-11 04:55:00 Kehinde rial [place] Diastolic (mm Hg) 2016-04-11 04:55:00 Mem orial [place] Heart Rate 2016-04-11 04:55:00 [facility] Eb Respitory Rate 2016-04-11 04:55:00 [facility] Eb Height 2016-04-08 22:42:00 162.56 cm [facility] [place] Weight 2016-04-08 22:42:00 [facility] BMI Calculated 2016-04-08 22:42:00 [facility] [place] Height 2016-04-08 15:37:00 162.56 cm [facility] [place] Weight 2016-04-08 15:37:00 [facility] [place] BMI Calculated 2016-04-08 15:37:00 [facility] [place] Systolic (mm Hg) 2015-12-24 21:00:00 Kehinde rial [place] Diastolic (mm Hg) 2015-12-24 21:00:00 Mem orial Eb Temperature Oral (F) 2015-12-24 21:00:00 98.1 F [facility] Heart Rate 2015-12-24 21:00:00 [facility] Respitory Rate 2015-12-24 21:00:00 [facility] [place] Systolic (mm Hg) 2015-12-24 17:00:00 Kehinde rial [place] Diastolic (mm Hg) 2015-12-24 17:00:00 Mem o[facility] Eb Respitory Rate 2015-12-24 17:00:00 [facility] Eb Heart Rate 2015-12-24 17:00:00 [facility] Eb Temperature Oral (F) 2015-12-24 17:00:00 97.8 F [facility] [place] Temperature Oral (F) 2015-12-24 13:00:00 97.4 F [facility] [place] Heart Rate 2015-12-24 13:00:00 [facility] [place] Systolic (mm Hg) 2015-12-24 13:00:00 Kehinde rial [place] Diastolic (mm Hg) 2015-12-24 13:00:00 [facility] [place] Respitory Rate 2015-12-24 13:00:00 [facility] Eb Height 2015-12-22 02:10:00 162.56 cm [facility] [place] BMI Calculated 2015-12-22 02:10:00 [facility] [place] Weight 2015-12-22 02:10:00 [facility] [place] Height 2015-12-21 20:41:00 162.56 cm [facility] [place] BMI Calculated 2015-12-21 20:41:00 [facility] Eb Weight 2015-12-21 20:41:00 [facility] Heart Rate 2015-12-21 04:57:00 [facility] Temperature Oral (F) 2015-12-21 04:57:00 98.1 F [facility] Respitory Rate 2015-12-21 04:57:00 [facility] [place] Systolic (mm Hg) 2015-12-21 04:57:00 Kehinde rial Eb Diastolic (mm Hg) 2015-12-21 04:57:00 Mem o[facility] Eb Weight 2015-12-20 21:28:00 [facility] [place] Temperature Oral (F) 2015-12-20 21:28:00 97.9 F [facility] [place] Respitory Rate 2015-12-20 21:28:00 [facility] al Eb Systolic (mm Hg) 2015-12-20 21:28:00 Kehinde rial Eb Diastolic (mm Hg) 2015-12-20 21:28:00 Mem o[facility] [place] Heart Rate 2015-12-20 21:28:00 [facility] [place] Procedures Procedure Date / Time Performed Performing Clinician [facility] Planned Activity Planned Date Details Comments Source Future Scheduled 2020-01-12 INFLUENZA VACCINE [place] [facility] Test 00:00:00 [code = INFLUENZA VACCINE] Future Scheduled 2010 Screening for [facility] Vt thodist Test 00:00:00 malignant neoplasm of cervix (procedure) [code = 636108417] Encounters Start End Encounter Admission Attending Care Care Encounter Source Date/Time Date/Time Type Type Clinicians Facility Department ID 2016-04-08 2016-04-11 Outpatient White, [facility] [id number] 10:34:00 10:50:00 Janeana 02 [place] 2016-04-08 2016-04-11 Outpatient White, PL PL [id number] 10:34:00 10:50:00 Janeana 02 Lib[place] 2015-12-21 2015-12-24 Outpatient White, MHPL PL [id number] 15:38:00 19:08:00 Janeana [place] 2015-12-21 2015-12-24 Outpatient White, PL PL [id number] 15:38:00 19:08:00 Janeana [place] 2015-12-20 2015-12-21 [place] [id number] 16:20:00 00:07:00 Siddharth 00 Cas 2015-12-20 2015-12-21 Outpatient [place], PL [facility] [id number] 16:20:00 00:07:00 Siddharth 00 Cas Results Test Description Test Time Test Comments Results Result Comments Source ELECTROLYTES 2016-04-11 9.9 [facility] pel[facility]z 08:44:00 ELECTROLYTES 2016-04-11 141 [facility] pelaez 08:44:00 ELECTROLYTES 2016-04-11 3.9 [facility] pelaez 08:44:00 ELECTROLYTES 2016-04-11 121 [facility] pelaez 08:44:00 ELECTROLYTES 2016-04-11 105 [facility] pelaez 08:44:00 ELECTROLYTES 2016-04-11 7.8 [facility] pelaez 08:44:00 ELECTROLYTES 2016-04-11 30 [facility] pelaez 08:44:00 ELECTROLYTES 2016-04-11 111 [facility] pelaez 08:44:00 ELECTROLYTES 2016-04-11 2 [facility] pelaez 08:44:00 ELECTROLYTES 2016-04-11 0.67 [facility] pelaez 08:44:00 HEMATOLOGY 2016-04-11 10.1 [facility] [place] 08:44:00 HEMATOLOGY 2016-04-11 3.73 [facility] [place] [facility] 08:44:00 HEMATOLOGY 2016-04-11 81.8 [facility] [place] 08:44:00 HEMATOLOGY 2016-04-11 8.7 [facility] [place] nn 08:44:00 HEMATOLOGY 2016-04-11 30.5 [facility] [place] nn 08:44:00 HEMATOLOGY 2016-04-11 9.0 [facility] [place] nn 08:44:00 HEMATOLOGY 2016-04-11 33.2 [facility] [place] nn 08:44:00 HEMATOLOGY 2016-04-11 08:44:00 Test Item Value Reference Range Interpretation Comme nts MCH (test code = MCH) 27.1 pg 27.0-31.0 [facility] CclqdymQBHWXHVAPH9178-19-26 08:44:0017.4[facility]annHEMATOLOGY 2016-04-11 08:44:93383Wrnmdplk MmzbwlaHMICEFZCEMIY2998-25-08 08:44:009.9[facility] XotkxxoCUMIAZSAFFFO7206-96-15 08:44:17495Mmcilzyx BqyqwkxUJRAVVRIOMNV7087-70-39 08:44:003.9[facility] RrgwtrtAGVVKWIPEJIL3615-23-86 08:44:88486Grduyiwp [place] TSCFTVSQFCAQ9359-51-52 08:44:13771Aqbrmsku RcgjqkuTUCUKDAFUHQJ8208-16-94 08:44:007.8[facility] BctncwwCVQPJKYMOJHA6654-84-41 08:44:0030[facility] [place] PRENOFVYAYZO5089-82-57 08:44:55878Rkfhfqhn PesmmqvTDKOPOORKEEQ0301-96-63 08:44:002[facility] QisjhzeFUISOVOBOUIU4941-29-10 08:44:000.67[facility] Eb TSZAWFPEPX5241-77-36 08:44:0010.1[facility] VemeahuPVGQRIRXJO6904-63-56 08:44:00 3.73[facility] GijvkqsNWEIZJVJZR9521-83-14 08:44:0081.8[facility] HermannHEMATOLOGY 2016-04-11 08:44:008.7[facility] VvjtlldIHCTNJRCGI6222-10-06 08:44:0030.5[facility] BomnhscHPHMKCOVEF9219-53-91 08:44:009.0[facility] JjeqcyxKSILHVPTNF8506-00-16 08:44:0033.2[facility] JcpcnhoOHCMTLFXQE0967-95-98 08:44:00 Test Item Value Reference Range Interpretation Comments MCH (test code = MCH) 27.1 pg 27.0-31.0 [facility] VzafqrcDUJWHIVIUJ7729-79-13 08:44:0017.4[facility]annHEMATOLOGY 2016-04-11 08:44:38780Btolkvmk MqjxrmnTOJIGELACR7248-10-46 16:52:69445Wiyegkza DdpdhczGRKLBEEHYA8864-96-99 16:52:0017.2[facility] XcqrmgbLEHYAMXMLF9019-10-16 16:52:008.emorial ZauircwFVQILPRXEA3554-64-45 16:52:0082.1[facility] Eb TSWAXZUGTO8795-98-72 16:52:0033.2[facility] ChttercILHTNTXMEM9999-38-16 16:52:00 Test Item Value Reference Range Interpretation Comments MCH (test code = MCH) 26.8 pg 27.0-31.0 [facility] AonsqiaKJKQDWYEVM1384-43-10 16:52:0032.6[facility] HermannHEMATOLOGY 2016-04-10 16:52:0010.8[facility] ObstfikHRRJWJFIEF2838-25-65 16:52:007.1[facility] DpxluuxYMHENAPNVM6199-75-98 16:52:004.04[facility] TotjbbtLXNHDEZLHR5729-45-29 16:52:93560Vjbbtvoe HrxaweuCDXYEVUXJX6908-53-05 16:52:0017.2[facility] [place] WDRETIABFH0818-59-51 16:52:008.emorial FpfjsxjTCXGCLSKSV1135-53-11 16:52:00 82.emorial CneadpnJQHBLZMYIQ3205-07-89 16:52:0033.2[facility]annHEMATOLOGY 2016-04-10 16:52:00 Test Item Value Reference Range Interpretation Comments MCH (test code = MCH) 26.8 pg 27.0-31.0 [facility] XaeaybsLBBPNCIHNG2379-73-82 16:52:0032.6[facility]annHEMATOLOGY 2016-04-10 16:52:0010.8[facility] BmyiqqrSRDJZKACQR5953-93-02 16:52:007.1[facility] RlglxvxFXMZHHOZTA6792-42-00 16:52:004.04[facility] HermannCHEM CNTDO1543-22-71 08:33:16164Padyonth HermannCHEM FHPEI1788-32-63 08:33:000.67[facility] HermannCHEM JJEYM2147-40-36 08:33:004[facility] HermannCHEM PKNBA8172-34-91 08:33:20149 [facility]annCHEM VLOOU2546-20-48 08:33:003.5[facility]annCHEM PANEL 2016-04-10 08:33:007.8[facility] HermannCHEM LIOJU4503-44-08 08:33:0031[facility] HermannCHEM DAQAO7447-67-13 08:33:0095[facility]annCHEM BZUAN5874-59-89 08:33:007.5[facility] HermannCHEM UVMES7207-70-13 08:33:64492Nbxenhhz HermannCHEM FVKIF6832-94-33 08:33:97172Iwdcayms HermannCHEM JYSAG9567-55-83 08:33:000.67 [facility]annCHEM NIQPX0002-04-85 08:33:004[facility] HermannCHEM PANEL 2016-04-10 08:33:14035Pzhhgfqq HermannCHEM EBXTM2615-66-08 08:33:003.5[facility] HermannCHEM WZEAN0534-24-73 08:33:007.8[facility] HermannCHEM OGNUM3681-72-27 08:33:0031[facility] HermannCHEM VKVJG7316-99-88 08:33:0095[facility] HermannCHEM BJAUC0731-05-20 08:33:007.5[facility] HermannCHEM XKNSE5847-32-36 08:33:92105 [facility] DywqfjoRNZFUCUTZH3987-34-56 09:19:008.6[facility]annHEMATOLOGY 2016-04-09 09:19:37527Ttqpiijd WkcwatsMXKGFYRTRM2935-89-38 09:19:0011.5[facility] WlyuacyQVSQVBMJUH0512-85-00 09:19:004.10[facility] RuyrpcfOAQEKNOXOC7456-18-94 09:19:0011.1[facility] MlrchdhAODDVJEFHJ8525-35-51 09:19:00 Test Item Value Reference Range Interpretation Comments MCH (test code = MCH) 27.0 pg 27.0-31.0 [facility] KmagafuGXAPFWKAJM1721-61-01 09:19:0079.8[facility] HermannHEMATOLOGY 2016-04-09 09:19:0032.7[facility] DgqwjeqPOFODNQJAM0452-71-25 09:19:0017.7[facility] JhutqxzVJOSSOGKCE7275-04-36 09:19:0033.9[facility] NakowjmYYSXHXZADB5561-97-34 09:19:0068.8[facility] OiznyutZCFPVCQCRZ0563-81-51 09:19:000.4[facility] Eb AXANCRQLGA7879-47-92 09:19:002.5[facility] XjwivxlCINMIGYOKT0911-84-94 09:19:007.9 [facility] NfxatceIAKQBLUSHY5247-42-91 09:19:000.1[facility] HermannHEMATOLOGY 2016-04-09 09:19:000.9[facility] QflfuiiYFMKBLFXHX8781-04-43 09:19:001.1[facility] YiaajcgRVEBSTBVWH9011-14-52 09:19:008.1[facility] EcciskeYAQPQAQZUX9843-51-90 09:19:0021.6[facility] EayvctbIYCGDCSJJM2642-31-93 09:19:008.6[facility] Eb CAPXCLXRLJ8838-22-20 09:19:78068Osgfvcui WgfaifcMYJANABQQA6555-72-96 09:19:00 11.5[facility] QpbkzehMINCKCMIYT6607-83-37 09:19:004.10[facility] HermannHEMATOLOGY 2016-04-09 09:19:0011.1[facility] NjsmjfyEDFRVPWECX4691-88-12 09:19:00 Test Item Value Reference Range Interpretation Comments MCH (test code = MCH) 27.0 pg 27.0-31.0 [facility] OrxwmsiLGKSWGNLNF6604-82-35 09:19:0079.8[facility] HermannHEMATOLOGY 2016-04-09 09:19:0032.7[facility] ZcuuaumNKEFYNKUFK9338-86-64 09:19:0017.7[facility] TsemspeAJEFYVLWIV2195-24-66 09:19:0033.9[facility] MmzrjsnWLSTYENRGI4546-43-98 09:19:0068.8[facility] ZrwvjhcCRQJJKZKGU1417-59-48 09:19:000.4[facility] Eb BHGBNGJCOD9924-28-02 09:19:002.5[facility] GoxdxsvJOQCNOSYDV2393-13-33 09:19:007.9 [facility] DdfsrmmTZIGDSKNCU4042-41-60 09:19:000.1[facility] HermannHEMATOLOGY 2016-04-09 09:19:000.9[facility] KyaozveQBHJIHFMZV2629-45-64 09:19:001.1[facility] DeqkmzrQGLIKDPHCE8040-12-46 09:19:008.1[facility] GzycqyjRYLKTIUHCI8575-01-26 09:19:0021.6[facility] HermannCHEM RWQUM3355-88-41 16:28:91667Vrjgsjdz Eb LYKHEIAEBDZZ2682-77-14 16:28:009.5[facility] YumsekiDNCTHVJBZRBX2008-36-66 16:28:008[facility] QprjzzyKCAPSBPJNRQN5832-62-52 16:28:001.2[facility] Eb BXYYHSEWMOYS3364-52-75 16:28:003.3[facility] VcwywbrGRNFIFAYUBEA5372-16-16 16:28:0029[facility] TsiooszKBRAKXQGNHRQ7216-23-27 16:28:55175Uqtesshk Eb WYJRNYKFGWET5005-88-03 16:28:000.4[facility] FxrxyuqQMHEAJZGERZL2697-14-60 16:28:008.5[facility] JxwnkhzVIFNOUUWUZKL8666-89-00 16:28:007.1[facility] [place] ARGCLBZKIYXR1192-91-36 16:28:0015[facility] GtztglgNGSNUYLYPQIR0014-31-08 16:28:00 117[facility] AsqxblvPNAWQZOMPAKA1315-46-36 16:28:003.8[facility] Eb UERJYDLWRDMG4113-91-15 16:28:86541Qiqkpqom CqikzklXDGJWGRLEWJS9311-70-02 16:28:0020[facility] CsizttiVLEKEXOMTFHF8562-42-17 16:28:0080[facility] Eb OLCSKRZKCXIA5749-19-60 16:28:003.5[facility] MmengulZGLSTKQPXCGZ7873-95-71 16:28:006[facility] KlqujjcSOGAMDIXSAOR6076-47-72 16:28:22254Cgzoecpv [place] UFANQSVJZVEP5203-11-99 16:28:000.71[facility] WxlgdblIDFAPDCGED3762-71-48 16:28:00 0.3[facility] YbwtsxbTJNLIIZCIO2916-00-43 16:28:000.1[facility] HermannHEMATOLOGY 2016-04-08 16:28:0010.1[facility] KgjssuuZBXYQGWYYC4343-28-31 16:28:001.7[facility] MfhqxlgSYBGLPKIWQ0742-22-38 16:28:000.7[facility] LufvppwDKCSGDCJVV7796-38-46 16:28:0080.1[facility] TfmsytyNICBQWAEZV7861-16-90 16:28:005.8[facility] Eb IYQYMCILYW9113-81-22 16:28:000.6[facility] PfjopghSLQSNHBZIO3359-43-75 16:28:00 13.2[facility]annURINE AND BBZKJ8819-77-05 16:28:00 Test Item Value Reference Range Interpretation Comments UA Spec Grav (test code = UA Spec 1.015 1 Grav) [facility] PFPZK9955-23-76 16:28:00Clear (04/08/16 11:28 AM) [facility] XFQTE0956-57-16 16:28:00Yellow *NA*(04/08/16 11:28 AM) [facility] MPEZW9406-66-47 16:28:00Negative *NA*(04/08/16 11:28 AM)[facility] EGUHK2932-77-17 16:28:00 Test Item Value Reference Range Interpretation Comments UA pH (test code = UA pH) 8.5 1 5.0-8.0 [facility] SFWZP0757-91-39 16:28:00Negative (04/08/16 11:28 AM) [facility] PLYVT0559-01-13 16:28:00Negative (04/08/16 11:28 AM) [facility] SGOCB2730-67-86 16:28:000.2[facility] LFPEK1994-84-89 16:28:00Negative (04/08/16 11:28 AM)[facility] CHEM 2016-04-08 16:28:00Negative (04/08/16 11:28 AM)[facility] HermannCHEM PANEL 2016-04-08 16:28:12364Fgyckcph WosiiecPOUCNAWQMIFH3052-93-99 16:28:009.5[facility] ZwkceqbTIEIPTOCYJBJ1039-47-95 16:28:008[facility] IxynmojNMDTOJNSUIWC6882-30-26 16:28:001.2[facility] NludksdMNAIIVYCJYBU7760-62-36 16:28:003.3[facility] Eb OWNWNIAZSSDT0688-93-38 16:28:0029[facility] OfgqqdcNRPVQUEDKOBG1584-49-83 16:28:00 106[facility] YxhvwkhFLVONXESRHJM9319-40-92 16:28:000.4[facility] Eb KIMIRQMTSGTY0125-70-27 16:28:008.5[facility] JuozjbsBARHFYKTQMZK3978-52-37 16:28:007.1[facility] KoogmhvFFOHLJPIDSYP3568-02-32 16:28:0015[facility] [place] WHAPRWOIRCHI7315-87-43 16:28:01340Dtpiaulx VspbtesDRMAMRTNQYKG7726-63-92 16:28:003.8[facility] NwjgqrnRNNLFZZBWVIU8353-87-37 16:28:13624Czbloyhn [place] RAPRWWBIKRGK0710-95-33 16:28:0020[facility] AotyopxNSDPSIGVIRIR6307-72-75 16:28:00 80[facility] FdypcvqHHEVVUNKINZV6507-44-43 16:28:003.5[facility] HermannELECTROLYTES 2016-04-08 16:28:006[facility] MwzdxytXYVJZHVELJJB2322-06-59 16:28:18109Kuxzphtm KfybtxsRDXUOEJLZUEQ4366-65-46 16:28:000.71[facility] EjtjkyaWUIYDZVUPP9693-41-26 16:28:000.3[facility] JzzafswABKMEWSZWQ4547-82-63 16:28:000.1[facility] Eb EYMYBGMMYT2351-03-84 16:28:0010.1[facility] SeunbzuXOKHYURAST2700-59-14 16:28:00 1.7[facility] FcvgplvAUQOYXLOXC6309-12-95 16:28:000.7[facility] HermannHEMATOLOGY 2016-04-08 16:28:0080.1[facility] GwkvrnsEREJYNRMSQ7894-54-84 16:28:005.8[facility] IpqmuvfZPWTXKFCVK4985-69-15 16:28:000.6[facility] HhjgmglAGTMUGHLKI9090-12-69 16:28:0013.2[facility] NONOL7483-01-80 16:28:00 Test Item Value Reference Range Interpretation Comments UA Spec Grav (test code = UA Spec 1.015 1 Grav) [facility] XWOJG8788-29-48 16:28:00Clear (04/08/16 11:28 AM) [facility] LAYMV6731-07-27 16:28:00Yellow *NA*(04/08/16 11:28 AM) [facility] SRJCL7624-35-20 16:28:00Negative *NA*(04/08/16 11:28 AM)[facility] FTKXC9409-69-79 16:28:00 Test Item Value Reference Range Interpretation Comments UA pH (test code = UA pH) 8.5 1 5.0-8.0 [facility] NWXQJ4140-17-12 16:28:00Negative (04/08/16 11:28 AM) [facility] JIHBL1635-47-51 16:28:00Negative (04/08/16 11:28 AM) [facility] GJHQJ6798-16-47 16:28:000.2[facility] AXYAC9388-92-31 16:28:00Negative (04/08/16 11:28 AM)[facility] CHEM 2016-04-08 16:28:00Negative (04/08/16 11:28 AM)[facility] HermannELECTROLYTES 2015-12-24 11:08:0014.3[facility] WkhrrnwVQYQKBQTBYJN6179-44-07 11:08:98710 [facility] DnahdcwWQIKMGZQJBCK2134-85-16 11:08:003.3[facility] HermannELECTROLYTES 2015-12-24 11:08:0023[facility] YujyfoqFVEYIRXBCTGS9499-07-92 11:08:007.6[facility] WwqgvjgCPSFCMTMCVLD6973-37-75 11:08:000.64[facility] WpgewfhWPOSMUEKFDMI3664-43-14 11:08:005[facility] LujzefiEZOTGYEJTQDA2090-82-00 11:08:47076Plpidxlf Eb RESPXDZZVBTJ9194-91-07 11:08:98338Tnczgisb XdgiccsASWQSPQIQLSU0366-74-62 11:08:07667Pbghigmq TzxonlzQHIBOPXTHS9533-49-08 11:08:71674Ghyicigb Eb FXWNPSAQLS8476-04-12 11:08:008.1[facility] ZhdcievNXAECGHJIA8231-03-09 11:08:00 82.2[facility] XylydztJOXINTWVNB6974-85-82 11:08:0032.4[facility] HermannHEMATOLOGY 2015-12-24 11:08:0017.7[facility] UddnbsrALUTXCHYKO6996-20-23 11:08:00 Test Item Value Reference Range Interpretation Comments MCH (test code = MCH) 26.7 pg 27.0-31.0 [facility] GaduqckLFBCRZDXML7971-18-18 11:08:003.93[facility]annHEMATOLOGY 2015-12-24 11:08:0032.3[facility] OmphzpzSDSVMHEUIF5658-78-48 11:08:0010.5[facility] GchuduyOFAIVUINXP8567-31-24 11:08:009.5[facility] GbvgnmoYLEVJSKAHREQ1152-19-30 11:08:0014.3[facility] SltgsenPZGQIQHAAATQ1546-14-55 11:08:82055Fzvgdlgr Eb HWINBEWEYATR5963-06-82 11:08:003.3[facility] HhsjldbGZPPFIRNLMHP3694-68-80 11:08:0023[facility] DwvpdhdEHUAKHTISUXT2232-95-12 11:08:007.6[facility] Eb TFMANORKSVMR1323-93-86 11:08:000.64[facility] WrnfsvpNUOWFCMICLTJ9336-03-86 11:08:005[facility] KyknlzrSHNSYWWKUWXZ8580-47-33 11:08:29281Oaffwkgl Eb XVCEKNFPTEWE1558-51-94 11:08:28536Ldyctukt GggbncxAJQPGSXMGLUM0248-02-10 11:08:78096Qbkvokox ZjerqwfFMETOLXGSU7676-08-51 11:08:01502Ueiqaknz Eb GAEWMNIBHE6346-76-89 11:08:008.1[facility] ShvukyzEPDXIBMXDD8709-91-23 11:08:00 82.2[facility] HsbvwfySGZBNYJLGV2675-52-89 11:08:0032.4[facility]annHEMATOLOGY 2015-12-24 11:08:0017.7[facility] BohhkbnXFBQHYFDAA1223-93-11 11:08:00 Test Item Value Reference Range Interpretation Comments MCH (test code = MCH) 26.7 pg 27.0-31.0 [facility] NjyfekeSQLHCKETWQ7476-69-22 11:08:003.93[facility]annHEMATOLOGY 2015-12-24 11:08:0032.3[facility] XlqjtxkRQGKSWJLWQ2905-04-93 11:08:0010.5[facility] JwncqduAUMAEXGZAM3882-77-80 11:08:009.5[facility] HermannCHEM PBOFU3338-49-20 07:33:63969Dgwkcmmr HermannCHEM KTGNI7786-13-60 07:33:003.9[facility] HermannCHEM PIXYL7045-55-20 07:33:55370Mzymyonm HermannCHEM WJCLU1663-89-73 07:33:000.61 [facility] HermannCHEM TMQSE9010-33-54 07:33:76831Uefpvyla HermannCHEM PANEL 2015-12-22 07:33:008.1[facility] HermannCHEM JQDDZ1200-79-03 07:33:0010[facility] HermannCHEM LKHRM2124-46-48 07:33:0088[facility] HermannCHEM FVMHT1830-02-94 07:33:0023[facility] HermannCHEM KUKSG2903-41-37 07:33:0013.9[facility] [place] SFGOPVVYFB3330-41-72 07:33:14196[place] ZmuxcfrVJENJFDRMB9317-12-87 07:33:008.3 [facility] VcoqugvYVTYDMANKD2831-90-08 07:33:0018.3[facility]annHEMATOLOGY 2015-12-22 07:33:0082.4[facility] HdamgpnTAGBAJOFWP7676-97-97 07:33:0032.1[facility] GfvyoorSLWQJXMOTL7394-00-08 07:33:00 Test Item Value Reference Range Interpretation Comments MCH (test code = MCH) 26.4 pg 27.0-31.0 [facility] ZooafjtHAUVFVHYWO0759-49-84 07:33:0034.7[facility]annHEMATOLOGY 2015-12-22 07:33:004.21[facility] FhbyxnvQGKMQAPXWH2801-74-96 07:33:0011.1[facility] BkkljsyUGXKABUJMD6516-60-25 07:33:0014.8[facility] InpgkslGDORMLDKMN1395-49-92 07:33:002.1[facility] HsqhlyfNNVLONFSGN5675-13-38 07:33:000.9[facility] Eb JLYOELKESP9224-53-49 07:33:0011.7[facility] VxmvxlwVOKAERANOK3347-19-34 07:33:00 0.3[facility] GyknnczWKSMDWCNCV5749-89-61 07:33:0014.1[facility]annHEMATOLOGY 2015-12-22 07:33:000.3[facility] HizdwmqXSQKFWVRCB5008-60-59 07:33:006.3[facility] GubjpyeWLYZCKSBAZ8915-57-82 07:33:0079.0[facility]annCHEM IWWLV8878-42-57 07:33:30371Cprlfazu HermannCHEM WZYTM9116-70-93 07:33:003.9[facility]annCHE[facility] LMXKT4276-06-13 07:33:74087Zysbwzqi HermannCHEM ZKSEE4581-06-17 07:33:000.61 [facility] IDMCF2488-79-69 07:33:41125Wkbbnasb HermannCHEM PANEL 2015-12-22 07:33:008.1[facility]annCHE[facility] MMDDU0324-23-02 07:33:0010[facility]annCHE[facility] VTQTR3764-77-04 07:33:0088[facility]annCHE[facility] GLWIP8427-37-67 07:33:0023[facility]annCHE[facility] LFXSK0248-27-73 07:33:0013.9[facility] Eb TNTVVQNXNJ7823-38-82 07:33:03034Vgbnokbu BbvyzlpIHFTUAPKRN5989-36-27 07:33:008.3 [facility] EduiuyrFYSXUFUOPT8327-57-56 07:33:0018.3[facility]annHEMATOLOGY 2015-12-22 07:33:0082.4[facility] TbkbyxqICHBLHLCXN9695-86-98 07:33:0032.1[facility] DngaqvyOCNJLCYDEM2537-55-28 07:33:00 Test Item Value Reference Range Interpretation Comments MCH (test code = MCH) 26.4 pg 27.0-31.0 [facility] HhwrqbpPUGCEZCKVO6487-73-43 07:33:0034.7[facility]annHEMATOLOGY 2015-12-22 07:33:004.21[facility] PyuvsqcCTBULIXFMT7822-47-48 07:33:0011.1[facility] WekuwgzCNCJZAEILS5974-38-92 07:33:0014.8[facility] VromslyNMJZWRDBKQ7686-01-46 07:33:002.1[facility] FrvfwpkODRFMXYOLV2525-46-85 07:33:000.9[facility] [place] EJMQLYARHI2196-36-77 07:33:0011.7[facility] UwotxhmQFOSUBIHTS8067-54-06 07:33:00 0.3[facility] ReoqnjqRUZOWCEAGG9539-84-87 07:33:0014.1[facility]annHEMATOLOGY 2015-12-22 07:33:000.3[facility] OeqzwbwRSMFQBVBDF4404-48-83 07:33:006.3[facility] ZdgjeijNNTVNMRZLF9781-24-72 07:33:0079.0[facility] STOOL 2015-12-21 22:21:00Yellow *NA*(12/21/15 5:21 PM)[facility] STOOL 2015-12-21 22:21:00Clear (12/21/15 5:21 PM)[facility] STOOL 2015-12-21 22:21:000.2[facility] AGVYA4704-26-78 22:21:00Negative (12/21/15 5:21 PM)[facility] IEDOM0401-43-13 22:21:00 Test Item Value Reference Range Interpretation Comments UA pH (test code = UA pH) 8.0 1 5.0-8.0 [facility] XSFKS4348-93-53 22:21:00 Test Item Value Reference Range Interpretation Comments UA Spec Grav (test code = UA Spec 1.015 1 Grav) [facility] CTSLT3265-79-03 22:21:00Negative (12/21/15 5:21 PM) [facility] FTZNI1480-02-99 22:21:00Negative *NA*(12/21/15 5:21 PM) [facility] DUVYX1348-12-65 22:21:00Negative (12/21/15 5:21 PM) [facility] TQIKJ2455-27-99 22:21:00Negative (12/21/15 5:21 PM) [facility] HISJW8211-87-47 22:21:00Negative (12/21/15 5:21 PM) [facility] BYNOH6013-34-04 22:21:00See Note (12/21/15 5:21 PM) [facility] WLQG2155-39-22 22:21:00Negative (12/21/15 5:21 PM)[facility] KDDWE0072-84-64 22:21:00Yellow *NA*(12/21/15 5:21 PM)[facility] RZAVP3950-63-55 22:21:00Clear (12/21/15 5:21 PM)[facility] AND DSYER4681-79-17 22:21:000.2[facility] FGTQH3887-94-87 22:21:00Negative (12/21/15 5:21 PM)[facility] QCEJP5966-22-72 22:21:00 Test Item Value Reference Range Interpretation Comments UA pH (test code = UA pH) 8.0 1 5.0-8.0 [facility] WDTTL3226-64-04 22:21:00 Test Item Value Reference Range Interpretation Comments UA Spec Grav (test code = UA Spec 1.015 1 Grav) [facility] DSLCV2762-49-38 22:21:00Negative (12/21/15 5:21 PM) [facility] RHEKV8426-49-44 22:21:00Negative *NA*(12/21/15 5:21 PM) [facility] RUJPL2633-28-72 22:21:00Negative (12/21/15 5:21 PM) [facility] JJYWC1979-51-80 22:21:00Negative (12/21/15 5:21 PM) [facility] ANQUW1061-53-18 22:21:00Negative (12/21/15 5:21 PM) [facility] DGRPR1181-51-05 22:21:00See Note (12/21/15 5:21 PM) [facility] NGFK7238-50-76 22:21:00Negative (12/21/15 5:21 PM)[facility]annCHEM DQSEW6262-94-92 21:21:11712Mfxnevor HermannCHEM ZXQZN3440-08-16 21:21:65909Yqicikky HermannCHEM FYHMM0450-66-50 21:21:004.4[facility]annCHEM GVNXM9520-79-32 21:21:0026[facility]annCHE[facility] SWMLQ8938-12-09 21:21:009[facility]annCHE[facility] DJPGI2177-17-72 21:21:71388Iftaiawc HermannCHEM OQGYU6921-73-23 21:21:0091[facility]annCHEM BAHER6050-17-13 21:21:000.74[facility]annCHEM OZFIM3621-62-02 21:21:0023[facility]annCHEM NCQUU2535-74-47 21:21:008.4 [facility]annCHE[facility] BNNGL2852-82-78 21:21:93068Annobtbs HermannCHEM PANEL 2015-12-21 21:21:003.9[facility]annCHEM CQMHX2240-58-66 21:21:66959Zttbdvuc HermannCHEM ZHMHO5814-39-01 21:21:000.6[facility]annCHEM MPYHX8184-11-25 21:21:008.8[facility]annCHEM ZVQID3697-85-11 21:21:0020[facility]annCHE[facility] PDVHW1796-36-42 21:21:001.1[facility]annCHEM YMMIL0351-36-35 21:21:004.0 [facility] ZCYOV2855-61-99 21:21:0012[facility]annCHEM PANEL 2015-12-21 21:21:0015.9[facility] PpoafifHGYFAQDIEY2633-96-33 21:21:002.5[facility] JzamdbxVCTXUKFROD6338-76-39 21:21:000.1[facility] NdnycnfLHSRZDMJZS4236-03-10 21:21:000.8[facility] YbsicthRKUAKWNLFH3083-85-50 21:21:005.1[facility] Eb CASJYJVWWW5192-04-43 21:21:0015.3[facility] GpksxdgYOZDYHISMD1689-16-49 21:21:00 0.1[facility] GnfdniyFEHMNHJMPR7005-63-15 21:21:0013.1[facility]annHEMATOLOGY 2015-12-21 21:21:000.6[facility] PyanrlvKDQPLVWZIS5361-06-20 21:21:0078.9[facility] HqdgtkjDMWDWWKFAN9843-29-91 21:21:007.8[facility] YzucdmpEKIBXBNLZA7584-70-09 21:21:00 Test Item Value Reference Range Interpretation Comments MCH (test code = MCH) 26.3 pg 27.0-31.0 [facility] GdtwevxQWXWJVCFYI9852-30-57 21:21:0018.0[facility]annHEMATOLOGY 2015-12-21 21:21:0032.6[facility] KxkkrelMOGSFQPWZX5102-00-06 21:21:25270Utvecdzc QcxeopxWDYEKQNNCB3581-93-93 21:21:0016.6[facility] ArixpknFUSMYEQKSH0982-94-32 21:21:004.76[facility] TyxjgbdQCBJPORDQW6416-35-78 21:21:0012.5[facility] [place] ALFAJYVWFT0150-08-31 21:21:0038.3[facility] CuiwjuzPEVVJUPFNQ6228-74-11 21:21:00 80.5[facility]annCHEM WHGMQ0569-13-28 21:21:03201Sufpldna HermannCHEM PANEL 2015-12-21 21:21:42761Edtzmrjf HermannCHEM KRRKL2129-29-90 21:21:004.4[facility]annCHE[facility] XMOUK8012-37-25 21:21:0026[facility]annCHE[facility] SZSTI0920-51-33 21:21:009[facility]CHE[facility] NKPLI8916-59-26 21:21:95703Xercvuae HermannCHEM XULXI4316-95-36 21:21:0091[facility]annCHE[facility] OVSRX1937-07-26 21:21:000.74 [facility] HHKSV2366-18-40 21:21:0023[facility]annCHEM PANEL 2015-12-21 21:21:008.4[facility]annCHE[facility] ATNYP6899-39-10 21:21:76475Kdfxyxlh HermannCHEM IDLGZ8979-97-68 21:21:003.9[facility]annCHE[facility] KIAVC2290-28-55 21:21:33439Aoozfvjf HermannCHEM MNHSZ4989-24-73 21:21:000.6[facility]annCHE[facility] WBANC8757-22-17 21:21:008.8[facility]annCHE[facility] TESBZ6890-95-80 21:21:0020 [facility] ATCYR3690-60-38 21:21:001.1[facility]annCHEM PANEL 2015-12-21 21:21:004.0[facility]annCHE[facility] RTRDQ3411-39-67 21:21:0012[facility]annCHE[facility] LERMW8343-23-42 21:21:0015.9[facility] RpdkugaAGKRPVUOFX8560-38-58 21:21:002.5[facility] ZajxvodUOZCLQPUWM9937-12-67 21:21:000.1[facility] EQRRMONJOD9443-47-37 21:21:000.8[facility] LghlaqkKYGEZZXRMS6829-77-12 21:21:005.1 [facility] AcdegcxURNYWPIZYI7272-63-97 21:21:0015.3[facility]annHEMATOLOGY 2015-12-21 21:21:000.1[facility] NxdeapkFLIIWFMUZA5947-00-88 21:21:0013.1[facility] FutztezDJRDORIGCU3245-14-90 21:21:000.6[facility] KnzmrjdNZZDTFJAOV0993-53-45 21:21:0078.9[facility] RlqquznSEFWRUNSUJ6411-82-13 21:21:007.8[facility] FUKPHRXYGG3091-52-97 21:21:00 Test Item Value Reference Range Interpretation Comments MCH (test code = MCH) 26.3 pg 27.0-31.0 [facility] ZaewehxTMZNMCKFYF9493-73-50 21:21:0018.0[facility]annHEMATOLOGY 2015-12-21 21:21:0032.6[facility] YrkwuokDUWEQXVXMG5162-02-59 21:21:24446Puangsyl ZbpxbojJAMRSIQJRS8164-93-84 21:21:0016.6[facility] HdoqolcQECEDYMEDN4675-36-26 21:21:004.76[facility] FleydugAXJKGJCGWY3334-75-52 21:21:0012.5[facility] NDGUGGJHFK3124-04-88 21:21:0038.3[facility] FrhdxtfWIETHRBDZB1372-45-75 21:21:00 80.5[facility]annCHEM XHIAN7051-28-04 00:23:80760Rxljrymc HermannELECTROLYTES 2015-12-21 00:23:0011.7[facility] IjkdysbCHNXDRHNBPLG0861-61-47 00:23:18250 [facility] QqnfdteJGFFBFCIRUKS9860-69-30 00:23:008[facility] HermannELECTROLYTES 2015-12-21 00:23:0095[facility] HwbzeusKGTJHFIZTZMW5033-73-83 00:23:44603Wlotlcsq CdphqfzXALZLCEEENNO6660-18-11 00:23:000.76[facility] KwbyuxmRCKSMVHVPNLQ4833-68-27 00:23:0025[facility] DprcsxeDACEXNNXQAKW5487-40-41 00:23:008.8[facility] [place] LCPLQOUDTCZB5841-28-44 00:23:18487Csnzfpgo XhcvkkeQKRYKIHJOWIN3970-67-50 00:23:003.7[facility] BssxbhhGIPTYKVOFN1727-54-52 00:23:0036.3[facility] Eb EDNROMWHKU8144-45-89 00:23:0011.6[facility] SncijtkDRRNXOMETQ8970-73-12 00:23:00 4.47[facility] GkzqisxGWSRRVRIIN7524-01-59 00:23:58522Kzjijhvf HermannHEMATOLOGY 2015-12-21 00:23:0018.3[facility] NusagbwUVMJAWGAPC5007-91-66 00:23:0031.9[facility] BnbohchEJZEVRQFVE8495-52-69 00:23:00 Test Item Value Reference Range Interpretation Comments MCH (test code = MCH) 25.9 pg 27.0-31.0 [facility] RbvkullXLZSGPYFWK4186-56-20 00:23:0081.3[facility]annHEMATOLOGY 2015-12-21 00:23:008.0[facility] ZjjtmmcXDEIOETNEY9641-83-16 00:23:0016.4[facility] JbgcprvKYOIIRUBTI2862-93-67 00:23:000.1[facility] CwudfpgVIRGNGLHRV6173-31-67 00:23:000.8[facility] RymtujtBHXSACLRSB2130-87-05 00:23:000.1[facility] [place] NETPAGTNOI1105-88-85 00:23:0014.3[facility] CppbkacHPKZQFHARR0575-82-62 00:23:00 80.0[facility] LjwrjwwLAGGCPVQIO1471-87-09 00:23:004.7[facility]annHEMATOLOGY 2015-12-21 00:23:002.4[facility] WuuqvrcFYDVKBNTMY6101-58-06 00:23:0013.1[facility] PbonoejSUZIAUVNCF4622-54-38 00:23:000.4[facility] VzrbqktWINPDVJSSP7575-32-62 00:23:000.6[facility]annCHEM UPRCJ2784-94-73 00:23:43936Zedhmdjd [place] NAFUZLUSNNYI8299-01-98 00:23:0011.7[facility] WylqmefAQUTAJKFURCM3194-69-99 00:23:94052Azmlgznu IvrqejgKUONXTTEDBCJ8125-40-32 00:23:008[facility] BNWBMBCSVSLT1571-01-47 00:23:0095[facility] IdiodkcYEDCQGFMQTKN1003-84-75 00:23:00 139[facility] LvsskmoZFDGPYKXRGJM7283-61-81 00:23:000.76[facility] [place] FKBRCPMTQZFA1089-14-99 00:23:0025[facility] XquzhsnOZDOXHNATGZU7619-83-13 00:23:00 8.8[facility] EozyujbHPPDHYUKHJCX5202-84-31 00:23:75247Mypaqskz [place] BAPDVDLAKMUO7271-78-31 00:23:003.7[facility] AjgohuuWMNYXVOAND8176-83-42 00:23:00 36.3[facility] OmawwuuYWGHNDYJMP1318-66-02 00:23:0011.6[facility]annHEMATOLOGY 2015-12-21 00:23:004.47[facility] CthrupzRJZKMACPDU4695-77-44 00:23:08792Mciqwenj HghlyhaZUZJLCURTK3190-55-62 00:23:0018.3[facility] YfsmbpdMPSHYYNXVT8711-95-39 00:23:0031.9[facility] PduxcmwUVTMBFLRLA4265-75-50 00:23:00 Test Item Value Reference Range Interpretation Comments MCH (test code = MCH) 25.9 pg 27.0-31.0 [facility] SjobkadUTYLHOZSED0246-95-47 00:23:0081.3[facility]annHEMATOLOGY 2015-12-21 00:23:008.0[facility] WfhswctNOVICNHBYL6272-57-98 00:23:0016.4[facility] TzmbdcgNZWEXWDDUS9599-70-29 00:23:000.1[facility] LgwiluoEOMSZWVNPD8382-18-11 00:23:000.8[facility] MeshcvlYRQKMGVQAY6491-77-17 00:23:000.1[facility] Eb OZTMLNTMAT8686-02-03 00:23:0014.3[facility] DojqvcfGLYRLMRECH9077-45-11 00:23:00 80.0[facility] OntzrkbXHDHCZCJRV9583-11-92 00:23:004.7[facility]annHEMATOLOGY 2015-12-21 00:23:002.4[facility] JtnbcvsGIXPPWOAAT2507-45-71 00:23:0013.1[facility] VjctwuvJBDXHODWXX3917-53-98 00:23:000.4[facility] YwawawrSLPQRHTJVH8118-60-61 00:23:000.6[facility]UR[facility] AND VWJMU7177-59-44 23:17:00Negative (12/20/15 6:17 PM)[facility] UEWBZ7702-80-88 23:17:00Negative (12/20/15 6:17 PM)[facility] YNXBX1308-10-83 23:17:00Negative (12/20/15 6:17 PM) [facility] FYOJA6096-01-60 23:17:00Clear (12/20/15 6:17 PM)[facility] DLESK2954-40-16 23:17:00 Test Item Value Reference Range Interpretation Comments UA Spec Grav (test code = UA Spec 1.015 1 Grav) [facility] TBFNW6764-81-08 23:17:00Yellow *NA*(12/20/15 6:17 PM) [facility] SKUDB4924-61-69 23:17:000.2[facility] NHXOR4108-59-38 23:17:00Performed (12/20/15 6:17 PM)[facility] TKDOX8332-80-92 23:17:00Negative (12/20/15 6:17 PM)[facility] STOOL 2015-12-20 23:17:00>=9.0 *ABN*(12/20/15 6:17 PM)[facility] STOOL 2015-12-20 23:17:00Negative *NA*(12/20/15 6:17 PM)[facility] STOOL 2015-12-20 23:17:00Trace *ABN*(12/20/15 6:17 PM)[facility] STOOL 2015-12-20 23:17:00Negative *NA*(12/20/15 6:17 PM)[facility] CHEM 2015-12-20 23:17:00Negative (12/20/15 6:17 PM)[facility] STOOL 2015-12-20 23:17:00Negative (12/20/15 6:17 PM)[facility] STOOL 2015-12-20 23:17:00Negative (12/20/15 6:17 PM)[facility] STOOL 2015-12-20 23:17:00Negative (12/20/15 6:17 PM)[facility] STOOL 2015-12-20 23:17:00Clear (12/20/15 6:17 PM)[facility] STOOL 2015-12-20 23:17:00 Test Item Value Reference Range Interpretation Comments UA Spec Grav (test code = UA Spec 1.015 1 Grav) [facility] BIIGN9663-81-01 23:17:00Yellow *NA*(12/20/15 6:17 PM) [facility] ETMPU7696-63-95 23:17:000.2[facility] RHCWM5868-01-47 23:17:00Performed (12/20/15 6:17 PM)[facility] SHNWC7306-95-99 23:17:00Negative (12/20/15 6:17 PM)[facility] STOOL 2015-12-20 23:17:00>=9.0 *ABN*(12/20/15 6:17 PM)[facility] STOOL 2015-12-20 23:17:00Negative *NA*(12/20/15 6:17 PM)[facility] STOOL 2015-12-20 23:17:00Trace *ABN*(12/20/15 6:17 PM)[facility] STOOL 2015-12-20 23:17:00Negative *NA*(12/20/15 6:17 PM)[facility] CHEM 2015-12-20 23:17:00Negative (12/20/15 6:17 PM)[facility]
[2020-01-16 20:47] LABS: Absolute Lymphocytes (CBC) 3.7 K/uL (0.7-4.9); Basophils % 0.5 % (0-1.3); Hematocrit 38.2 % (36.0-45.0); MPV 8.7 fL (7.6-11.3); RBC Red Blood Cell Count 4.68 M/uL (3.86-4.86)
[2020-01-16 21:14] LABS: ALT/SGPT 23 U/L (12-78); AST/SGOT 18 U/L (15-37); Albumin 3.9 g/dL (3.4-5.0); Alkaline Phosphatase 81 U/L (45-117); BUN Blood Urea Nitrogen 8 mg/dL (7-18); Bicarbonate 22 mmol/L (21-32); Bilirubin Direct 0.1 mg/dL (0-0.2); Bilirubin Total 0.4 mg/dL (0.2-1.0); Glucose Level 86 mg/dL (74-106); NT PRO-BNP 30 pg/mL (<125); Potassium 3.4 mmol/L (3.5-5.1); Protein, Total 7.7 g/dL (6.4-8.2); Sodium Level 140 mmol/L (136-145); Troponin I < 0.02 ng/mL (0.0-0.045)
[2020-01-16] MEDS ORDERED: ACETAMINOPHEN 500 MG TAB ONE (22:22)
[2020-01-16 22:55] LABS: Urine Blood NEGATIVE (NEG); Urine Glucose NEGATIVE (NEG); Urine Protein NEGATIVE (NEG)
[2020-01-16] MEDS ORDERED: KETOROLAC 30 MG/ML INJ ONE (23:38)
--- NOTE | 2020-01-17 01:34 | ER ---
Nurse's Notes [facility] Name: Jaye Pérez Age: 29 yrs Sex: Female : 1990 Arrival Date: 01/16/2020 Time: 19:13 Bed 20 Private MD: Diagnosis: Bronchitis;UTI;Chest Pain Presentation: 01/15 19:46 Chief complaint: Patient states: Cough x 2-3 months. SOB with coughing. Chest pain x 1 ca1 week. Been tested twice for Covid, both test came back negative. Last one was 10-11 days ago. Hx of chronic bronchitis and pneumonia x 4. Coronavirus screen: Client denies travel out of the [place] in the last 14 days. cough unrelated to allergies, difficulty breathing, headache, runny nose, shortness of breath, Client presents with at least one sign or symptom that may indicate coronavirus-19. The client reports previous COVID testing was negative. Date of collection: January 07, 2020 [facility] Staff notified of need for isolation. Ebola Screen: Patient negative for fever greater than or equal to 101.5 degrees Fahrenheit, and additional compatible Ebola Virus Disease symptoms Patient denies exposure to infectious person. Patient denies travel to an Ebola-affected area in the 21 days before illness onset. No symptoms or risks identified at this time. Initial Sepsis Screen: Does the patient meet any 2 criteria? No. Patient's initial sepsis screen is negative. Does the patient have a suspected source of infection? No. Patient's initial sepsis screen is negative. Risk Assessment: Do you want to hurt yourself or someone else? Patient reports no desire to harm self or others. Onset of symptoms was January 16, 2020. 19:46 Method Of Arrival: Ambulatory ca1 19:46 Acuity: JEREMIAH 3 ca1 Triage Assessment: 21:00 Respiratory: Reports shortness of breath Onset: The symptoms/episode began/occurred mt2 gradually, the patient has moderate shortness of breath. [employer] REPA[employer]ER: 19:52 LMP 01/09/2020 ca1 Historical: - Allergies: 19:51 Cipro (Upset stomach); ca1 - PMHx: 19:51 GERD; PUD; ca1 - PSHx: 19:51 Tonsillectomy; ca1 - Immunization history:: Adult Immunizations up to date. - Social history:: Smoking status: Patient reports the use of cigarette tobacco products, smokes one-half pack cigarettes per day. Screenin:27 Abuse screen: Denies threats or abuse. Nutritional screening: No deficits noted. mt2 Tuberculosis screening: No symptoms or risk factors identified. Fall Risk None identified. Assessment: 20:27 Reassessment: Patient and/or family updated on plan of care and expected duration. Pain mt2 level reassessed. Patient is alert, oriented x 3, equal unlabored respirations, skin warm/dry/pink. General: Appears uncomfortable, Behavior is cooperative. Pain: Complains of pain in anterior aspect of right upper chest and right breast Quality of pain is described as aching. Neuro: No deficits noted. Cardiovascular: Reports chest pain, Rhythm is sinus rhythm. Respiratory: Airway is patent Respiratory effort is unlabored, Sputum is yellow Breath sounds with rhonchi. GI: No deficits noted. : No deficits noted. EENT: No deficits noted. Derm: No deficits noted. Musculoskeletal: No deficits noted. 21:30 Reassessment: Patient and/or family updated on plan of care and expected duration. Pain mt2 level reassessed. Patient is alert, oriented x 3, equal unlabored respirations, skin warm/dry/pink. General: Appears uncomfortable, Behavior is cooperative. Pain: Complains of pain in anterior aspect of right upper chest, right lateral posterior chest and right breast Pain currently is 7 out of 10 on a pain scale. Quality of pain is described as aching. 22:30 Reassessment: Patient and/or family updated on plan of care and expected duration. Pain mt2 level reassessed. Patient is alert, oriented x 3, equal unlabored respirations, skin warm/dry/pink. General: Appears uncomfortable, Behavior is cooperative. Pain: Complains of pain in chest Pain Quality of pain is described as aching. 23:30 Reassessment: Patient and/or family updated on plan of care and expected duration. Pain mt2 level reassessed. Patient is alert, oriented x 3, equal unlabored respirations, skin warm/dry/pink. General: Appears uncomfortable, Behavior is cooperative. Pain: Complains of pain in back Pain currently is 9 out of 10 on a pain scale. Quality of pain is described as aching. 01/16 00:30 Reassessment: No changes from previously documented assessment. Patient and/or family mt2 updated on plan of care and expected duration. Pain level reassessed. Patient is alert, oriented x 3, equal unlabored respirations, skin warm/dry/pink. NOTIFIED MD OF PT C/O BACK PAIN. TORADOL NOT EFFECTIVE. General: Appears uncomfortable, Behavior is cooperative. 01:10 Reassessment: Patient and/or family updated on plan of care and expected duration. Pain mt2 level reassessed. Patient is alert, oriented x 3, equal unlabored respirations, skin warm/dry/pink. General: Appears uncomfortable, Behavior is cooperative. Pain: Complains of pain in back Pain currently is 9 out of 10 on a pain scale. Quality of pain is described as aching. Vital Signs: 01/15 19:46 BP 130 / 91; Pulse 83; Resp 19 S; Temp 97.9(TE); Pulse Ox 99% on R/A; Weight 77.11 kg ca1 (R); Height 5 ft. 4 in. (162.56 cm) (R); 19:52 BP 121 / 82; ca1 20:29 BP 109 / 79; Pulse 79; Resp 17; Temp 98.1(O); Pulse Ox 97% on R/A; Pain 6/10; mt2 21:30 BP 117 / 71; Pulse 72; Resp 19; Pulse Ox 96% on R/A; Pain 8/10; mt2 22:32 BP 114 / 69; Pulse 79; Resp 17; Pulse Ox 97% on R/A; Pain 5/10; mt2 23:30 BP 107 / 61; Pulse 73; Resp 16; Temp 98.2(O); Pulse Ox 96% on R/A; Pain 9/10; mt2 01/16 00:30 BP 98 / 62; Pulse 67; Resp 16; Pulse Ox 97% on R/A; Pain 7/10; mt2 01:48 BP 125 / 71; Pulse 61; Resp 16; Pulse Ox 97% ; Pain 5/10; mt2 01/15 19:46 Body Mass Index 29.18 (77.11 kg, 162.56 cm) ca1 ED Course: 01/15 19:13 Patient arrived in ED. cf2 19:47 Brianda Calvillo, MARCIA is Primary Nurse. mt2 19:51 Triage completed. ca1 19:51 Arm band placed on right wrist. ca1 19:58 Boyd Boswell MD is Attending Physician. 7 20:20 Initial lab(s) drawn, by me, sent to lab. First set of blood cultures drawn by me. mt2 20:30 Inserted saline lock: 20 gauge in left antecubital area, using aseptic technique. Blood mt2 collected. 21:00 Placed in gown. Bed in low position. Call light in reach. Side rails up X 1. mt2 22:10 Chest Single View XRAY In Process Unspecified. EDMS 23:15 CT Chest For PE Angio In Process Unspecified. EDMS 08 01:06 Urine --Ancillary (enter results) Sent. mt2 01:06 Urine Dipstick--Ancillary (enter results) Sent. mt2 01:49 No provider procedures requiring assistance completed. IV discontinued, intact, mt2 bleeding controlled, No redness/swelling at site. Pressure dressing applied. Administered Medications: 01/15 22:12 Drug: Tylenol 1000 mg Route: PO; mt2 23:00 Follow up: Response: No adverse reaction; Pain is unchanged, physician notified mt2 23:00 Drug: TORadol 30 mg Route: IVP; Site: left antecubital; mt2 08 00:30 Follow up: Response: No adverse reaction; Pain is unchanged, physician notified mt2 Outcome: 01:33 Discharge ordered by . 7 01:49 Discharged to home ambulatory. mt2 01:49 Condition: good 01:49 Discharge instructions given to patient, Instructed on discharge instructions, follow up and referral plans. medication usage, Demonstrated understanding of instructions, follow-up care, medications, Prescriptions given X 4. 02:00 Patient left the ED. mt2 Signatures: Dispatcher [employer] EDFL Pilar Rodriguez RN RN ca1 Hal Beltre cf2 Boyd Boswell MD MD 7 Brianda Calvillo RN RN mt2 Corrections: (The following items were deleted from the chart) 01:05 01:05 BP 003 / ??? mt2 mt2
--- NOTE | 2020-01-17 01:34 | EDPHYS ---
Physician Documentation [facility] Name: Jaye Pérez Age: 29 yrs Sex: Female : 1990 Arrival Date: 01/16/2020 Time: 19:13 Bed 20 Private MD: ED Physician Boyd Boswell HPI: 01/15 20:33 This 29 yrs old Female presents to ER via Ambulatory with complaints of mh7 Shortness Of Breath, Chest Pain, Swollen Glands. 20:33 The patient has shortness of breath with coughing. Onset: The symptoms/episode mh7 began/occurred 1 week(s) ago. Duration: The symptoms are intermittent, with no pattern. The patient's shortness of breath is aggravated by coughing, is alleviated by nothing. Associated signs and symptoms: Pertinent positives: chest pain, productive cough, Pertinent negatives: diaphoresis, dizziness, fever, hemoptysis, loss of consciousness, nausea, numbness in extremities, visual changes, vomiting. Associated signs and symptoms: Pertinent positives: wheezing. Severity of symptoms: At their worst the symptoms were moderate yesterday, in the emergency department the symptoms have improved moderately. The patient has experienced similar episodes in the past, a few times. The patient has been recently seen by a physician: the patient's primary care provider. 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 - Social history:: Smoking status: Patient reports the use of cigarette tobacco products, smokes one-half pack cigarettes per day. ROS: 20:33 Constitutional: Negative for fever, chills, and weight loss, Eyes: Negative for injury, mh7 pain, redness, and discharge, ENT: Negative for injury, pain, and discharge, Neck: Negative for injury, pain, and swelling, Abdomen/GI: Negative for abdominal pain, nausea, vomiting, diarrhea, and constipation, Back: Negative for injury and pain, : Negative for injury, bleeding, discharge, and swelling, MS/Extremity: Negative for injury and deformity, Skin: Negative for injury, rash, and discoloration, Neuro: Negative for headache, weakness, numbness, tingling, and seizure, Psych: Negative for depression, anxiety, suicide ideation, homicidal ideation, and hallucinations, Allergy/Immunology: Negative for hives, rash, and allergies, Endocrine: Negative for neck swelling, polydipsia, polyuria, polyphagia, and marked weight changes, Hematologic/Lymphatic: Negative for swollen nodes, abnormal bleeding, and unusual bruising. Exam: 20:33 Constitutional: This is a well developed, well nourished patient who is awake, alert, mh7 and in no acute distress. Head/Face: Normocephalic, atraumatic. Eyes: Pupils equal round and reactive to light, extra-ocular motions intact. Lids and lashes normal. Conjunctiva and sclera are non-icteric and not injected. Cornea within normal limits. Periorbital areas with no swelling, redness, or edema. Neck: Trachea midline, no thyromegaly or masses palpated, and no cervical lymphadenopathy. Supple, full range of motion without nuchal rigidity, or vertebral point tenderness. No Meningismus. Chest/axilla: Normal chest wall appearance and motion. Nontender with no deformity. No lesions are appreciated. Cardiovascular: Regular rate and rhythm with a normal S1 and S2. No gallops, murmurs, or rubs. Normal PMI, no JVD. No pulse deficits. 20:33 Abdomen/GI: Soft, non-tender, with normal bowel sounds. No distension or tympany. No guarding or rebound. No evidence of tenderness throughout. Back: No spinal tenderness. No costovertebral tenderness. Full range of motion. Skin: Warm, dry with normal turgor. Normal color with no rashes, no lesions, and no evidence of cellulitis. MS/ Extremity: Pulses equal, no cyanosis. Neurovascular intact. Full, normal range of motion. Neuro: Awake and alert, GCS 15, oriented to person, place, time, and situation. Cranial nerves II-XII grossly intact. Motor strength 5/5 in all extremities. Sensory grossly intact. Cerebellar exam normal. Normal gait. Psych: Awake, alert, with orientation to person, place and time. Behavior, mood, and affect are within normal limits. 20:33 Chest/axilla: Inspection: normal, Palpation: tenderness, that is moderate, of the anterior aspect of right upper chest, that totally reproduces the patient's complaints. 20:33 Respiratory: the patient does not display signs of respiratory distress, Respirations: normal, Breath sounds: rhonchi, that are mild, are scattered, Respiratory rate: 17 Vital Signs: 19:46 BP 130 / 91; Pulse 83; Resp 19 S; Temp 97.9(TE); Pulse Ox 99% on R/A; Weight 77.11 kg ca1 (R); Height 5 ft. 4 in. (162.56 cm) (R); 19:52 BP 121 / 82; ca1 20:29 BP 109 / 79; Pulse 79; Resp 17; Temp 98.1(O); Pulse Ox 97% on R/A; Pain 6/10; mt2 21:30 BP 117 / 71; Pulse 72; Resp 19; Pulse Ox 96% on R/A; Pain 8/10; mt2 22:32 BP 114 / 69; Pulse 79; Resp 17; Pulse Ox 97% on R/A; Pain 5/10; mt2 23:30 BP 107 / 61; Pulse 73; Resp 16; Temp 98.2(O); Pulse Ox 96% on R/A; Pain 9/10; mt2 01/16 00:30 BP 98 / 62; Pulse 67; Resp 16; Pulse Ox 97% on R/A; Pain 7/10; mt2 01:48 BP 125 / 71; Pulse 61; Resp 16; Pulse Ox 97% ; Pain 5/10; mt2 01/15 19:46 Body Mass Index 29.18 (77.11 kg, 162.56 cm) ca1 MDM: 01/15 20:[address] [facility] 01/16 01:30 Differential diagnosis: Anemia Anxiety Reaction asthma, Bronchitis CHF exacerbation, mh7 Chronic Obstructive Pulmonary Disease Myocardial Infarction pneumonia, Pneumothorax pulmonary edema, Pulmonary Embolism reactive airway disease. Data reviewed: vital signs, nurses notes, lab test result(s), cardiac enzymes, CBC, electrolytes, urinalysis, EKG, radiologic studies, CT scan, plain films. Data interpreted: Pulse oximetry: on room air is 97 %. Interpretation: normal. Counseling: I had a detailed discussion with the patient and/or guardian regarding: the historical points, exam findings, and any diagnostic results supporting the discharge/admit diagnosis, lab results, radiology results, the need for outpatient follow up, to return to the emergency department if symptoms worsen or persist or if there are any questions or concerns that arise at home. 03:32 Response to treatment: the patient's symptoms have resolved after treatment, the [facility] patient's blood pressure is in an acceptable range, mental status has returned to baseline, the patient no longer shows bradycardia, the patient is not short of breath, the patient is not tachycardic, the patient's pain is gone, the patient's temperature has normalized. 01/15 20:31 Order name: CBC with Diff; Complete Time: 21:00 [facility] 01/15 20:31 Order name: Basic Metabolic Panel; Complete Time: 21:55 [facility] 01/15 20:31 Order name: LFT's; Complete Time: 21:55 [facility] 01/15 20:31 Order name: Troponin I; Complete Time: 21:55 [facility] 01/15 20:31 Order name: PROBNP; Complete Time: 21:55 [facility] 01/15 20:31 Order name: DD; Complete Time: 21:00 [facility] 01/15 20:31 Order name: Chest Single View XRAY [facility] 01/15 21:57 Order name: CT Chest For PE Angio [facility] 01/15 22:25 Order name: Urine Dipstick--Ancillary (enter results) [facility] 01/15 22:25 Order name: Urine --Ancillary (enter results) [facility] 01/15 22:25 Order name: Urine Dipstick-Ancillary; Complete Time: 23:27 [facility] 01/15 22:25 Order name: Urine --Ancillary; Complete Time: 23:27 [facility] 01/15 20:31 Order name: Urine Test (obtain specimen); Complete Time: 22:35 [facility] 01/15 20:31 Order name: EKG - Nurse/Tech; Complete Time: 20:33 [facility] Administered Medications: 01/15 22:12 Drug: Tylenol 1000 mg Route: PO; mn2 23:00 Follow up: Response: No adverse reaction; Pain is unchanged, physician notified mt2 23:00 Drug: TORadol 30 mg Route: IVP; Site: left antecubital; mn2 01/16 00:30 Follow up: Response: No adverse reaction; Pain is unchanged, physician notified mt2 Disposition: 03:32 Co-signature as Attending Physician, Boyd Boswell MD. [facility] Disposition: 01/17/20 01:33 Discharged to Home. Impression: Bronchitis, UTI, Chest Pain. - Condition is Stable. - Discharge Instructions: Urinary Tract Infection, Adult, [id number], Acute Bronchitis, [id number], Nonspecific Chest Pain, [id number]. - Prescriptions for Keflex 500 mg Oral Capsule - take 1 capsule by ORAL route every 12 hours for 7 days; 14 capsule. Tessalon Perles 100 mg Oral Capsule - take 1 capsule by ORAL route every 8 hours As needed; 15 capsule. Zithromax Z- Matt 250 mg Oral Tablet - take 1 tablet by ORAL route as directed for 5 days Day 1 - take two (2) tablets one time. Day 2, 3, 4 , 5 take one (1) tablet once daily.; 6 tablet. Prednisone 20 mg Oral Tablet - take 2 tablet by ORAL route once daily for 5 days; 10 tablet. Albuterol Sulfate 90 mcg/actuation - inhale 1-2 puff by INHALATION route every 4-6 hours; 1 Inhaler. - Medication Reconciliation Form, Thank You Letter, Antibiotic Education, Prescription Opioid Use, Work release form form. - Follow up: Private Physician; When: 1 - 2 days; Reason: Worsening of condition, Recheck today's complaints, Continuance of care, Re-evaluation by your physician. - Problem is an acute exacerbation. - Symptoms have improved. Signatures: Dispatcher [employer] EDNM Pilar Rodriguez RN RN [facility] Boyd Boswell MD MD 7 Brianda Calvillo RN RN mt2 Corrections: (The following items were deleted from the chart) 02:00 01:33 01/17/2020 01:33 Discharged to Home. Impression: Bronchitis; UTI; Chest Pain. mt2 Condition is Stable. Forms are Medication Reconciliation Form, Thank You Letter, Antibiotic Education, Prescription Opioid Use. Follow up: Private Physician; When: 1 - 2 days; Reason: Worsening of condition, Recheck today's complaints, Continuance of care, Re-evaluation by your physician. Problem is an acute exacerbation. Symptoms have improved. 7
[2020-01-17 02:14] VITALS: TEMP 98.2
[2020-01-17 02:16] VITALS: O2SAT 97
[2020-01-17 02:17] VITALS: BP 125/71
--- NOTE | 2020-01-17 07:24 | RAD REPORT ---
EXAM DESCRIPTION: RAD - Chest Single View - 01/16/2020 10:09 pm CLINICAL HISTORY: COUGH, shortness of breath COMPARISON: February 2018 TECHNIQUE: AP portable chest image was obtained 01/16/2020 10:09 pm . FINDINGS: Lungs are clear. Heart and vasculature are normal. No measurable pleural effusion and no p neumothorax. No acute bony abnormality seen. No acute aortic findings suspected. IMPRESSION: No acute cardiopulmonary process.
--- NOTE | 2020-01-17 10:31 | RAD REPORT ---
EXAM DESCRIPTION: CT - Chest For Pe Angio - 01/17/2020 5:04 am CLINICAL HISTORY: SOB COMPARISON: None Available. TECHNIQUE: CTA of the chest obtained following the uncomplicated intravenous administration of iodin ated contrast. 3-D/MIP reformatted images of the chest available for evaluation. FINDINGS: Chest: Pulmonary arteries: Contrast bolus is adequate.No filling defects identified in the pulmonary arterie s to suggest pulmonary embolus. Thyroid: No abnormalities of the visualized thyroid. Great Vessels: Great vessels have normal anatomic configuration. Thoracic Aorta: No abnormalities of the thoracic aorta identified. Heart: No cardiomegaly, significant pericardial effusion, or coronary artery atherosclerosis Lymph Nodes: No enlarged mediastinal lymph nodes identified. Esophagus: No abnormalities of the esophagus identified. Other: No additional findings. Lungs: No airspace opacities identified. Pleura: No pleural effusion or pneumothorax. Trachea/Airways: No abnormalities of the visualized trachea or airways. Bones: No destructive osseous lesions. Upper Abdomen: Limited images of the upper abdomen demonstrate no definite abnormalities of visualize d portions of the liver, gallbladder, pancreas, spleen, adrenal glands, or kidneys. IMPRESSION: 1. No pulmonary embolus. This exam was performed according to our departmental dose-optimization program, which includes autom ated exposure control, adjustment of the mA and/or kV according to patient size and/or use of iterati ve reconstruction technique. Electronically signed by: Fabián nKight 01/16/2020 11:26 PM CDT Due to temporary technical issues with the PACS/Fluency reporting system, reports are being signed by the in house radiologist without review as a courtesy to ensure prompt reporting. The interpreting r adiologist is fully responsible for the content of the report.
== END 2020-01-17 02:00 | disposition home or self-care (01) ==
LOC: ER 19:09
DX: J40 Bronchitis, not specified as acute or chronic (principal); N39.0 Urinary tract infection, site not specified; R07.9 Chest pain, unspecified; F17.210 Nicotine dependence, cigarettes, uncomplicated; Z88.6 Allergy status to analgesic agent
CPT/HCPCS: 36415; 71045; 71275; 80048; 80076; 81003; 81025; 83880; 84484; 85025; 85379; 93005; 96374; 99284; Q9967

== ENCOUNTER 2020-08-05 20:47 | Inpatient (IN) | payer SELFPAY ==
--- OUTSIDE RECORDS SUMMARY | 2020-08-05 20:55 | XMS REPORT | Continuity of Care Document ---
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 [place] ulcer ulcer 07-12 [facility] disease disease 00:00: st 00 Anxiety Anxiety Disease Active 2016-06 [facility] 07-12 [facility] 00:00: st 00 Iron Iron Disease Active 2016-06 [place] deficiency deficiency 07-12 Ny thodi anemia anemia 00:00: st 00 Dehydratio Dehydratio Disease Active 2016-06 H hilaria n n 1- [facility] 00:00: st 00 Tachycardi Tachycardi Disease Active 2016-06 H hilaria a a - [facility]i 00:00: st 00 ABDOMINAL Diagnosis Active 2015-062016-04-08 Memoria PAIN 0 15:58:00 l 00:00: Eb ABDOMINAL 00 PAIN Active 04/08/2016 [facility] INTRACTABL Diagnosis Active 2015-062016-04-20 Memoria E VOMITING 16:37:00 l 00:00: Hilger INTRACTABL 00 E VOMITING Active 04/08/2016 [facility] VOMITING Diagnosis Active 2015-12-21 M emoria 12-20 19:15:00 l VOMITING 00:00: Garry n 00 Active 12/21/2015 [facility] INTRATABLE Diagnosis Active 2016-01-15 Memoria ABD 12-20 12:01:00 l PAIN,VOMIT 00:00: Garry n ING,DEHYDR INTRATABLE 00 ATION ABD PAIN,VOMIT ING,DEHYDR ATION Active 12/21/2015 [facility] VOMITING/S Diagnosis Active 2016-01-12 Memoria TOMACH 12-19 09:13:00 l PAIN 00:00: Eb VOMITING/S 00 TOMACH PAIN Active 12/20/2015 [facility] Gastric Problem Active 2016-04-14 Kehinde batsheva ulcer 00:11:43 l (disorder) Gastric Her pelaez ulcer (disorder) Active Problem 04/14/2016 [facility] CYCLICAL Diagnosis Active 2016-04-20 M emoria VOMITING, 16:37:00 l INTRACTABL CYCLICAL He rmann E VOMITING, INTRACTABL E Active [facility] History of Past Illness Condition Condition Condition Status Onset Resolution Last Treating Co mments Source Name Details Category Date Date Treatment Clinician Date Discharge Problem 2015-062016-04-14 2016-04-14 Memoria Diagnosis: 0 00:11:43 00:11:43 l Abdominal 05:00: Eb pain, Discharge 00 acute, Diagnosis: epigastric Abdominal pain, acute, epigastric 04/08/2016 04/14/2016 [facility] Discharge Problem 2015-12-24 2015-12-24 Memoria Diagnosis: 12-19 00:19:47 00:19:47 l Leukocytos 05:00: Garry n is Discharge 00 Diagnosis: Leukocytos is 12/20/2015 12/24/2015 [facility] Discharge Problem 2015-12-24 2015-12-24 Memoria Diagnosis: 7-09 00:19:47 00:19:47 l Abdominal 05:00: Eb pain Discharge 00 Diagnosis: Abdominal pain 12/20/2015 12/24/2015 [facility] Allergies, Adverse Reactions, Alerts Allergy Allergy Status Severity Reaction(s) Onset Inactive Treating Comm ents Source Name Type Date Date Clinician Bina Dennis Active GI 2016-06 Nausea & [place] xacin ty to Intolerance -22 Vomiting Met hodi adverse 00:00: st reaction 00 s to drug Social History Social Habit Start Date Stop Date Quantity Comments Source Sex Assigned At [facility] ethodist Social History 2016-04-08 2016-04-08 [facility] 22:45:24 22:45:24 Medications Ordered Filled Start Stop Current Ordering Indication Dosage Frequency Signature Comments Components Source Medication Medication Date Date Medication? Clinician (SIG) Name Name promethazin 2016-06 Yes 25mg Q6H Take 25 mg Saunders e 1-25 by mouth Methodi (PHENERGAN) 15:02: every 6 st 25 MG 10 (six) tablet hours as needed for nausea or vomiting. ranitidine 2016-06 Yes 150mg QD Take 150 [place] (ZANTAC) 1-25 mg by Methodi 150 MG 15:02: mouth st tablet 10 nightly as needed for heartburn. acetaminoph 2016-06 Yes 1{tbl} Q4H Take 1 [place] en-codeine 1-25 tablet by Meth felipe (TYLENOL 15:02: mouth st WITH 10 every 4 CODEINE #3) (four) 300-30 mg hours as per tablet needed for moderate pain. Sucralfate 2015-06 Yes 1 gm = 10 Me moria 100 MG/ML 0-30 mL, PO, l Oral 16:50: QID, # Hilger Suspension 12 1200 mL, 0 [Carafate] Refill(s), Pharmacy: [facility] Sucralfate 2015-06 Yes 1 gm = 10 Me moria 100 MG/ML 0-30 mL, PO, l Oral 16:50: QID, # Hilger Suspension 12 1200 mL, 0 [Carafate] Refill(s), Pharmacy: [facility] dicyclomine 2015-06 Yes 20 mg = 1 M emoria 20 mg oral 0-30 tab, PO, l tablet 16:50: QID, # 56 Garry n 00 tab, 1 Refill(s), Pharmacy: [facility] gabapentin 2015-06 Yes 300 mg = 1 M emoria 300 MG Oral 0-30 cap, PO, l Capsule 16:50: TID, # 30 Verna nn [Neurontin] 00 cap, 1 Refill(s), Pharmacy: [facility] dicyclomine 2015-06 Yes 20 mg = 1 M emoria 20 mg oral 0-30 tab, PO, l tablet 16:50: QID, # 56 Garry n 00 tab, 1 Refill(s), Pharmacy: [facility] gabapentin 2015-06 Yes 300 mg = 1 M emoria 300 MG Oral 0-30 cap, PO, l Capsule 16:50: TID, # 30 Verna nn [Neurontin] 00 cap, 1 Refill(s), Pharmacy: [facility] Protonix 2015-06 No Notes: For Mem oria 0-29 IV push l 13:00: reconstitu Eb 00 te with 10 ml 0.9% sodium chloride and push over 2 minutes. (Same as: Protonix) Protonix 2015-06 No Notes: For Mem oria 0-29 IV push l 13:00: reconstitu Hilger 00 te with 10 ml 0.9% sodium [...] Memoria 0-29 (Same as: l 02:00: Bentyl) Hilger 00 Sucralfate 2015-06 No Notes: Memor ia 100 MG/ML 0-29 Enteral l Oral 02:00: feeds may Hilger Suspension 00 interfere [Carafate] with the absorption of this medication . Shake well. Take 1 hr before or 2 hrs after antacids, dairy pdt, minerals & meals. (Same As: Carafate) Reglan 2015-06 No Notes: Memoria 0-28 (Same as: l 23:00: Reglan) Eb 00 Reglan 2015-06 No Notes: Memoria 0-28 (Same as: l 23:00: Reglan) Hilger 00 Acetaminoph 2015-06 No Notes: Do M emoria en 0-28 not exceed l 22:41: 4 gm/day. Hilger 00 (Same as: Tylenol) Acetaminoph 2015-06 No Notes: Do M emoria en 0-28 not exceed l 22:41: 4 gm/day. Eb 00 (Same as: Tylenol) pantoprazol 2015-06 No Notes: Kehinde batsheva e 0-28 Tablet l 21:30: should not Eb 00 be chewed or crushed. (Same as: Protonix) pantoprazol 2015-06 No Notes: Kehinde batsheva e 0-28 Tablet l 21:30: should not Hilger 00 be chewed or crushed. (Same as: Protonix) Sucralfate 2015-06 No Notes: Memor ia 100 MG/ML 0-28 Enteral l Oral 18:00: feeds may Hilger Suspension 00 interfere [Carafate] with the absorption [...] 0-28 Enteral l Oral 18:00: feeds may Hilger Suspension 00 interfere [Carafate] with the absorption of this medication . Shake well. Take 1 hr before or 2 hrs after antacids, dairy pdt, minerals & meals. (Same As: Carafate) gabapentin 2015-06 No Notes: Memor ia 300 MG Oral 0-28 (Same as: l Capsule 18:00: Neurontin) Herm bean [Neurontin] 00 Zofran ODT 2015-06 No Notes: Memor ia 0-28 (Same as: l 15:58: Zofran Hilger 00 ODT) Zofran ODT 2015-06 No Notes: Memor ia 0-28 (Same as: l 15:58: Zofran Hilger 00 ODT) influenza 2015-06 No Notes: Memori [...] mL IM) Shake well before use Metoclopram 2016 No Notes: Kehinde batsheva rebecca 5 MG 0-28 (Same as: l Oral Tablet 12:30: Reglan) Her pelaez [Reglan] 00 Take 30 min before meals Protonix 2015-06 No Notes: Memoria 0-28 Tablet l 12:30: should not Eb 00 be chewed or crushed. (Same as: Protonix) pantoprazol 2015-06 No Notes: For Memoria e 0-28 IV push l 12:30: reconstitu Eb 00 te with 10 ml 0.9% sodium chloride and push over 2 minutes. (Same as: Protonix) Metoclopram 2015-06 No Notes: Kehinde batsheva rebecca 5 MG 0-28 (Same as: l Oral Tablet 12:30: Reglan) Her pelaez [Reglan] 00 Take 30 min before meals Protonix 2015-06 No Notes: Memoria 0-28 Tablet l 12:30: should not Hilger 00 be chewed or crushed. (Same as: Protonix) pantoprazol 2015-06 No Notes: For Memoria e 0-28 IV push l 12:30: reconstitu Hilger 00 te with 10 ml 0.9% sodium chloride and push over 2 minutes. (Same as: Protonix) Protonix 2015-06 No Notes: For Mem oria 0-28 IV push l 09:43: reconstitu Hilger 00 te with 10 ml 0.9% sodium chloride and push over 2 minutes. (Same as: Protonix) Protonix 2015-06 No Notes: For Mem oria 0-28 IV push l 09:43: reconstitu Eb 00 te with 10 ml 0.9% sodium chloride and push over 2 minutes. (Same as: Protonix) Phenergan 2015-06 No Notes: Memori a 0-28 (Same as: l 00:28: Phenergan) Hilger 00 Zofran 2015-06 No Notes: Memoria 0-28 (Same as: l 00:28: Zofran) Hilger 00 MEDICATION WASTE Product Size: 4 mg Product Wasted: ___ mg Phenergan 2015-06 No Notes: Memori a 0-28 (Same as: l 00:28: Phenergan) Hilger 00 Zofran 2015-06 No Notes: Memoria 0-28 (Same as: l 00:28: Zofran) Eb 00 MEDICATION WASTE Product Size: 4 mg Product Wasted: ___ mg Morphine 2015-06 No Notes: Memoria 0-28 (Same l 00:27: as:MORPhin Eb 00 e Sulfate) Morphine 2015-06 No Notes: Memoria 0-28 (Same l 00:27: as:MORPhin Eb 00 e Sulfate) Ibuprofen 2015-06 No Notes: Memori a 0-27 (Same as: l 23:20: Motrin) Eb 00 "Do Not Crush" Take with food. Ibuprofen 2015-06 No Notes: Memori a 0-27 (Same as: l 23:20: Motrin) Hilger 00 "Do Not Crush" Take with food. Saline 2015-06 No Notes: Memoria Flush 0.9% 0-27 (Same as: l 21:35: BD Hilger 00 Posiflush) Sodium 2015-06 No 1,000 mL, Memori a Chloride 0-27 Rate: 125 l 0.154 21:35: ml/hr, Eb MEQ/ML 00 Infuse Injectable over: 8 Solution hr, Route: IV, Dosing Weight 88.636 kg, Total Volume: 1,000, Start date: 04/08/16 16:35:00 CDT, Duration: 30 day, Stop date: 05/08/16 16:34:00 [employer] Ondansetron 2015-06 No Notes: Kehinde batsheva 0-27 (Same as: l 21:35: Zofran) Hilger 00 MEDICATION WASTE Product Size: 4 mg Product Wasted: ___ mg Saline 2015-06 No Notes: Memoria Flush 0.9% 0-27 (Same as: l 21:35: BD Eb 00 Posiflush) Sodium 2015-06 No 1,000 mL, Memori a Chloride 0-27 Rate: 125 l 0.154 21:35: ml/hr, Hilger MEQ/ML 00 Infuse Injectable over: 8 Solution hr, Route: IV, Dosing Weight 88.636 kg, Total Volume: 1,000, Start date: 04/08/16 16:35:00 CDT, Duration: 30 day, Stop date: 05/08/16 16:34:00 [employer] Ondansetron 2015-06 No Notes: Kehinde batsheva 0-27 (Same as: l 21:35: Zofran) Hilger 00 MEDICATION WASTE Product Size: 4 mg Product Wasted: ___ mg Zofran 2015-06 No 4 mg, Memoria 0-27 Route: l 20:22: IVP, Drug Hilger 00 form: INJ, ONCE, Dosing Weight 88.636, kg, Priority: STAT, Start date: 04/08/16 15:22:00 CDT, Stop date: 04/08/16 15:22:00 CDT Zofran 2015-06 No 4 mg, Memoria 0-27 Route: l 20:22: IVP, Drug Hilger 00 form: INJ, ONCE, Dosing Weight 88.636, kg, Priority: STAT, Start date: 04/08/16 15:22:00 CDT, Stop date: 04/08/16 15:22:00 CDT gabapentin 2015-06 No 300 mg = 1 M emoria 300 MG Oral 0-27 cap, PO, l Capsule 19:52: TID, # 30 Verna nn [Neurontin] 00 cap, 1 Refill(s) Promethazin 2015-06 No 25 mg = 1 M emoria e 0-27 supp, IN, l Hydrochlori 19:52: Q6H, PRN Junior mena 25 MG 00 Nausea & Rectal Vomiting, [...] = 1 M emoria e 0-27 supp, IN, l Hydrochlori 19:52: Q6H, PRN He rmann [...] rebecca 0-27 (Same as: l 16:05: Reglan) Saline 2015-06 No Notes: Memoria Flush 0.9% 0-27 (Same as: l 16:05: BD Eb 00 Posiflush) Sodium 2015-06 No [...] e 0-27 (Same as: l 16:05: Protonix) Eb 00 Metoclopram 2015-06 No Notes: Kehinde batsheva rebecca 0-27 (Same as: l 16:05: Reglan) Hilger 00 Saline 2015-06 No Notes: Memoria Flush 0.9% 0-27 (Same as: l 16:05: BD Eb 00 Posiflush) Sodium 2015-06 No 1,000 mL, Memori a Chloride 0-27 2,000 l 0.154 16:05: ml/hr, Hilger MEQ/ML 00 Infuse Injectable Over: 30 Solution minutes, Route: IV, 1,000, Drug form: INJ, ONCE, Priority: STAT, Dosing Weight 88.636 kg, Start date: 04/08/16 11:05:00 CDT, Duration: 1 doses or times, Stop date: 04/08/16 11:05:00 CDT Hydromorpho 2015-06 No Notes: Kehinde batsheva ne 0-27 Same as: l 16:05: Dilaudid Hilger 00 Remove old No Remove Memor ia [...] 00 1200 mL, 0 [Carafate] Refill(s), Pharmacy: [id number] pantoprazol Yes 40 mg = 1 M emoria e 40 mg 7-13 tab, PO, l oral 22:14: BID-Before Eb enteric 00 Meals, # coated 60 tab, 0 tablet Refill(s), Pharmacy: [id number] Sucralfate Yes 1 gm = 10 Me moria 100 MG/ML 7-13 mL, PO, l Oral 22:14: QID, # Eb Suspension 00 1200 mL, 0 [Carafate] Refill(s), Pharmacy: [id number] [facility] pantoprazol Yes 40 mg = 1 M emoria e 40 mg 7-13 tab, PO, l oral 22:14: BID-Before Hilger enteric 00 Meals, # coated 60 tab, 0 tablet Refill(s), Pharmacy: [facility] [id number] [facility] Protonix No Notes: Memoria 7-13 Tablet l 21:30: should not Eb 00 be chewed or crushed. (Same as: Protonix) Protonix No Notes: Memoria 7-13 Tablet l 21:30: should not Eb 00 be chewed or crushed. (Same as: Protonix) potassium No Notes: Memori a chloride 7-13 (Same as: l 14:52: K-Dur 20) Hilger 00 "Do Not Crush" With food and full glass of water potassium No Notes: Memori a chloride 7-13 (Same as: l 14:52: K-Dur 20) Eb 00 "Do Not Crush" With food and full glass of water Tylenol No Notes: Do Memor ia 7-13 not exceed l 03:53: 4 gm/day. Eb 00 (Same as: Tylenol) Tylenol No Notes: Do Memor ia 7-13 not exceed l 03:53: 4 gm/day. Hilger 00 (Same as: Tylenol) Nicotine No Notes: Memoria 7-13 (Same as: l 00:42: Habitrol) Hilger 00 "Remove old patch before applicatio n [...] 7-12 Enteral l Oral 18:00: feeds may Eb Suspension 00 interfere [Carafate] with the absorption of this medication . Shake well. Take 1 hr before or 2 hrs after antacids, dairy pdt, minerals & meals. (Same As: Carafate) Sucralfate No Notes: Memor ia 100 MG/ML 7-12 Enteral l Oral 18:00: feeds may Eb Suspension 00 interfere [Carafate] with the absorption of this medication . Shake well. Take 1 hr before or 2 hrs after antacids, dairy pdt, minerals & meals. (Same As: Carafate) Sodium No 1,000 mL, Memori a Chloride 7-12 Rate: 20 l 0.154 17:54: ml/hr, Hilger MEQ/ML 00 Infuse Injectable over: 50 Solution hr, Route: IV, Dosing Weight 86.364 kg, Total Volume: 1,000, Start date: 12/23/15 12:54:00 CDT, Duration: 2 hr, Stop date: 12/23/15 14:53:00 CDT Sodium No 1,000 mL, Memori a Chloride 712 Rate: 20 l 0.154 17:54: ml/hr, Hilger MEQ/ML 00 Infuse Injectable over: 50 Solution hr, Route: IV, Dosing Weight 86.364 kg, Total Volume: 1,000, Start date: 12/23/15 12:54:00 CDT, Duration: 2 hr, Stop date: 12/23/15 14:53:00 CDT Protonix + No Notes: For M emoria sodium 712 IV push l chloride 02:16: reconstitu Her pelaez 0.9% 10 ml 00 te with 10 INJ (PF) 20 ml 0.9% mL sodium chloride and push over 2 minutes. (Same as: Protonix) Protonix + No Notes: For M emoria sodium 7-12 IV push l chloride 02:16: reconstitu Her pelaez 0.9% 10 ml 00 te with 10 INJ (PF) 20 ml 0.9% mL sodium chloride and push over 2 minutes. (Same as: Protonix) Sodium 0 No 100 mL, Memoria Chloride 7-12 Rate: 10 l 0.154 01:36: ml/hr, Eb [...] times, Stop date: 12/22/15 20:40:00 CDT Sodium 2016-0 No 100 mL, Memoria Chloride 7-12 Rate: 10 l 0.154 01:36: ml/hr, Hilger MEQ/ML 00 Infuse Injectable over: 10 Solution [...] e 12-21 Same as: l 14:00: Protonix) Hilger 00 pantoprazol No Notes: Kehinde batsheva e 12-21 Same as: l 14:00: Protonix) Hilger 00 Flagyl No Notes: Memoria 12-21 (Same as: l 02:00: Flagyl) Eb 00 Avoid alcohol. Ciprofloxac No Notes: Do M emoria in 12-21 not l 02:00: refrigerat Hilger 00 e Flagyl No Notes: Memoria - (Same as: l 02:00: Flagyl) Eb Avoid alcohol. Ciprofloxac No Notes: Do M emoria in 12-21 not l 02:00: refrigerat Eb 00 e Phenergan No Notes: Memori a 7-11 (Same as: l :22: Phenergan) Eb 00 Sodium No 1,000 mL, Memori a Chloride 11 Rate: 125 l 0.154 01:22: ml/hr, Eb MEQ/ML 00 Infuse Injectable over: 8 Solution hr, Route: IV, Dosing Weight 88.636 kg, Total Volume: 1,000, Start date: 12/21/15 20:22:00 CDT, Duration: 30 day, Stop date: 01/20/16 20:21:00 CDT Saline No Notes: Memoria Flush 0.9% 7-11 (Same as: l 01:22: BD Eb 00 Posiflush) Ondansetron No Notes: Kehinde batsheva -11 (Same as: l 01:22: Zofran) Eb 00 MEDICATION WASTE Product Size: 4 mg Product Wasted: ___ mg Morphine No Notes: Memoria 7-11 (Same l 01:22: as:MORPhin Hilger 00 e Sulfate) Phenergan No Notes: Memori a 7-11 (Same as: l :22: Phenergan) Hilger 00 Sodium No 1,000 mL, Memori a Chloride -11 Rate: 125 l 0.154 01:22: ml/hr, Hilger MEQ/ML 00 Infuse Injectable over: 8 Solution hr, Route: IV, Dosing Weight 88.636 kg, Total Volume: 1,000, Start date: 12/21/15 20:22:00 CDT, Duration: 30 day, Stop date: 01/20/16 20:21:00 CDT Saline No Notes: Memoria Flush 0.9% 7-11 (Same as: l :22: BD Eb 00 Posiflush) Ondansetron No Notes: Kehinde batsheva 7-11 (Same as: l 01:22: Zofran) Hilger 00 MEDICATION WASTE Product Size: 4 mg Product Wasted: ___ mg Morphine No Notes: Memoria 7-11 (Same l 01:22: as:MORPhin Eb 00 e Sulfate) Morphine No Notes: Memoria 7-10 (Same l 22:05: as:MORPhin Eb 00 e Sulfate) Morphine No Notes: Memoria 7-10 (Same l 22:05: as:MORPhin Eb 00 e Sulfate) Morphine No Notes: Memoria 7-10 (Same l 21:04: as:MORPhin Hilger 00 e Sulfate) Promethazin No Notes: Kehinde batsheva e 7-10 (Same as: l 21:04: Phenergan) Eb 00 Saline No Notes: Memoria Flush 0.9% [...] e 7-10 (Same as: l 21:04: Phenergan) Eb 00 Saline No Notes: Memoria Flush 0.9% [...] times, Stop date: 12/21/15 16:04:00 CDT Ondansetron Yes 4 mg = 1 Me moria 4 MG Oral 7-10 tab, PO, l Tablet 05:00: BID, X 5 Eb [Zofran] 00 day, # 10 tab, 0 Refill(s) Ondansetron Yes 4 mg = 1 Me moria 4 MG Oral 7-10 tab, PO, l Tablet 05:00: BID, X 5 Hilger [Zofran] 00 day, # 10 tab, 0 [...] 7-10 (Same as: l 03:35: Bentyl) Eb Reglan No Notes: Memoria 7-10 (Same as: l 03:35: Reglan) Eb Bentyl No Notes: Memoria 7-10 (Same as: l 03:35: Bentyl) Eb Reglan No Notes: Memoria 7-10 (Same as: l 03:35: Reglan) Eb GI cocktail No Notes: Kehinde batsheva 7-10 G.I. l 02:27: Cocktail = Eb 00 antacid with simethicon e 22.5 mL - lidocaine viscous 7.5 mL GI cocktail No Notes: Kehinde batsheva 7-10 G.I. l 02:27: Cocktail = Eb 00 antacid with simethicon e 22.5 mL - lidocaine viscous 7.5 mL Morphine 2015-0 No 4 mg, Memoria 7-10 Route: l 00:36: IVP, Drug Eb 00 form: INJ, ONCE, Dosing Weight 87.727, kg, Priority: STAT, Start date: 12/20/15 19:36:00 CDT, Stop date: 12/20/15 19:36:00 CDT Morphine 2015-0 No 4 mg, Memoria 710 Route: l 00:36: IVP, Drug Hilger 00 form: INJ, ONCE, Dosing Weight 87.727, kg, Priority: STAT, Start date: 12/20/15 19:36:00 CDT, Stop date: 12/20/15 19:36:00 CDT Ondansetron 0 No Notes: Kehinde batsheva 12-19 (Same as: l 23:37: Zofran) Eb 00 MEDICATION WASTE Product Size: 4 mg Product Wasted: ___ mg Sodium 2015- No 1,000 mL, Memori a Chloride 12-19 2,000 l 0.154 23:37: ml/hr, Hilger MEQ/ML 00 Infuse Injectable Over: 30 Solution minutes, Route: IV, 1,000, Drug form: INJ, ONCE, Priority: STAT, Dosing Weight 87.727 kg, Start date: 12/20/15 18:37:00 CDT, Duration: 1 doses or times, Stop date: 12/20/15 18:37:00 CDT Saline 2015-0 No Notes: Memoria Flush 0.9% 12-19 (Same as: l 23:37: BD Hilger 00 Posiflush) Ondansetron 0 No Notes: Kehinde batsheva 12-19 (Same as: l 23:37: Zofran) Eb 00 MEDICATION WASTE Product Size: 4 mg Product Wasted: ___ mg Sodium 2016-0 No 1,000 mL, Memori a Chloride 12-19 2,000 l 0.154 23:37: ml/hr, Eb MEQ/ML 00 Infuse Injectable Over: 30 Solution minutes, Route: IV, 1,000, Drug form: INJ, ONCE, Priority: STAT, Dosing Weight 87.727 kg, Start date: 12/20/15 18:37:00 CDT, Duration: 1 doses or times, Stop date: 12/20/15 18:37:00 CDT Saline 2015-0 No Notes: Memoria Flush 0.9% 12-19 (Same as: l 23:37: BD Hilger 00 Posiflush) Immunizations Ordered Immunization Filled Immunization Date Status Commen ts Source Name Name Pneumococcal 2017-05-06 Completed [facility] Conjugate 13-Valent 00:00:00 Metho dist Vital Signs Vital Name Observation Time Observation Value Comments Source Respitory Rate 2016-04-11 13:00:00 Memori al Hilger Temperature Oral (F) 2016-04-11 13:00:00 98 F Memorial Eb Systolic (mm Hg) 2016-04-11 13:00:00 Kehinde rial Hilger Diastolic (mm Hg) 2016-04-11 13:00:00 Mem orial Hilger Heart Rate 2016-04-11 13:00:00 Memorial Eb Respitory Rate 2016-04-11 09:20:00 Memori al Hilger Temperature Oral (F) 2016-04-11 09:20:00 97.4 F [facility] Hilger Heart Rate 2016-04-11 09:20:00 [facility] Hilger Systolic (mm Hg) 2016-04-11 09:20:00 Kehinde rial Hilger Diastolic (mm Hg) 2016-04-11 09:20:00 Mem orial Eb Temperature Oral (F) 2016-04-11 04:55:00 98.1 F [facility] Hilger Systolic (mm Hg) 2016-04-11 04:55:00 Kehinde rial Hilger Diastolic (mm Hg) 2016-04-11 04:55:00 Mem orial Eb Heart Rate 2016-04-11 04:55:00 Memorial Eb Respitory Rate 2016-04-11 04:55:00 Memori al Eb Height 2016-04-08 22:42:00 162.56 cm Memorial Eb Weight 2016-04-08 22:42:00 Memorial Eb BMI Calculated 2016-04-08 22:42:00 Memori al Hilger Height 2016-04-08 15:37:00 162.56 cm [facility] Hilger Weight 2016-04-08 15:37:00 Memorial Eb BMI Calculated 2016-04-08 15:37:00 Memori al Eb Systolic (mm Hg) 2015-12-24 21:00:00 Kehinde rial Eb Diastolic (mm Hg) 2015-12-24 21:00:00 Mem orial Hilger Temperature Oral (F) 2015-12-24 21:00:00 98.1 F Memorial Eb Heart Rate 2015-12-24 21:00:00 [facility] Hilger Respitory Rate 2015-12-24 21:00:00 Memori al Hilger Systolic (mm Hg) 2015-12-24 17:00:00 Kehinde rial Eb Diastolic (mm Hg) 2015-12-24 17:00:00 Mem orial Hilger Respitory Rate 2015-12-24 17:00:00 Memori al Hilger Heart Rate 2015-12-24 17:00:00 [facility] Hilger Temperature Oral (F) 2015-12-24 17:00:00 97.8 F [facility] Hilger Temperature Oral (F) 2015-12-24 13:00:00 97.4 F Memorial Eb Heart Rate 2015-12-24 13:00:00 [facility] Hilger Systolic (mm Hg) 2015-12-24 13:00:00 Kehinde rial Eb Diastolic (mm Hg) 2015-12-24 13:00:00 Mem orial Eb Respitory Rate 2015-12-24 13:00:00 Memori al Eb Height 2015-12-22 02:10:00 162.56 cm [facility] Hilger BMI Calculated 2015-12-22 02:10:00 Memori al Eb Weight 2015-12-22 02:10:00 [facility] Hilger Height 2015-12-21 20:41:00 162.56 cm [facility] Hilger BMI Calculated 2015-12-21 20:41:00 Memori al Hilger Weight 2015-12-21 20:41:00 Memorial Eb Heart Rate 2015-12-21 04:57:00 Memorial Eb Temperature Oral (F) 2015-12-21 04:57:00 98.1 F [facility] Hilger Respitory Rate 2015-12-21 04:57:00 Memori al Eb Systolic (mm Hg) 2015-12-21 04:57:00 Kehinde rial Hilger Diastolic (mm Hg) 2015-12-21 04:57:00 Mem orial Eb Weight 2015-12-20 21:28:00 [facility] Hilger Temperature Oral (F) 2015-12-20 21:28:00 97.9 F [facility] Eb Respitory Rate 2015-12-20 21:28:00 Jackson lee Hilger Systolic (mm Hg) 2015-12-20 21:28:00 Kehinde mae Eb Diastolic (mm Hg) 2015-12-20 21:28:00 Mem bronwyn Eb Heart Rate 2015-12-20 21:28:00 [facility] Procedures Procedure Date / Time Performed Performing Clinician Sour e Tonsillectomy [facility] Plan of Care Planned Activity Planned Date Details Comments Source Future Scheduled 2020-01-12 INFLUENZA VACCINE [facility] 00:00:00 [code = INFLUENZA VACCINE] Future Scheduled 2010 Screening for [facility] 00:00:00 malignant neoplasm of cervix (procedure) [code = 473691948] Future Scheduled 2005 COVID-19 VACCINE ([facility] [place] [facility] 00:00:00 of 2) [code = COVID-19 VACCINE (1 of 2)] Encounters Start End Encounter Admission Attending Care Care Encounter Source Date/Time Date/Time Type Type Clinicians Facility Department ID 2020-08-05 2020-08-05 Refill [facility] [id number] 00:00:00 00:00:00 Miya Boogie [id number] [place] [id number] Profess [id number] [address] 2020-08-05 2020-08-05 Telephone Kiar[facility] [id number] 00:00:00 00:00:00 Miya Boogie [id number] [place] [id number] Professio [id number] [address] 2020-06-22 2020-06-22 Emergency [facility] [id number] 16:21:00 19:02:00 Danna Boogie [id number] [place] [id number] [place] [id number] [facility] 2020-06-22 2020-06-22 Urgent [facility] [id number] 15:21:26 15:41:26 [facility] [id number] Care Tiff [id number] Professio [phone] nal 044 Office [facility] 2020-06-19 2020-06-19 Office Kiarra [facility] [id number] 14:48:50 15:18:50 Visit Miya Boogie 350.1.13.10 [place] [id number] Professio [phone] nal 085 [facility] 2020-06-19 2020-06-19 Telephone Kiarra DCNILESH [id number] 00:00:00 00:00:00 Miya Boogie 350.1.13.10 [place] 4.2.7.2.686 Professio [phone] nal 085 [facility] 2016-04-08 2016-04-11 Outpatient White, MHPL MHPL [id number] 10:34:00 10:50:00 Janeana 02 Gardi 2016-04-08 2016-04-11 Outpatient White, MHPL MHPL [id number] 10:34:00 10:50:00 Janeana 02 Gardi 2015-12-21 2015-12-24 Outpatient White, MHPL MHPL [id number] 15:38:00 19:08:00 Janeana Gardi 2015-12-21 2015-12-24 Outpatient White, MHPL MHPL [id number] 15:38:00 19:08:00 Janeana Gardi 2015-12-20 2015-12-21 Outpatient Ingalacain, MHPL MHPL [id number] 16:20:00 00:07:00 Siddharth 00 Cas 2015-12-20 2015-12-21 Outpatient Ingalacain, MHPL MHPL [id number] 16:20:00 00:07:00 Siddharth 00 Cas Results Test Description Test Time Test Comments Results Result Comments Source [facility] 2016-04-11 08:44:00 Test Item Value Reference Range Interpretation Comme nts MCH (test code = MCH) 27.1 pg 27.0-31.0 [facility] GldhfewZCNODJPPSW8020-52-01 08:44:0017.4[facility] HermannHEMATOLOGY 2016-04-11 08:44:60328Pukwtcoc PavihhsLMQTBQRTRITO2939-46-06 08:44:009.9[facility] PvjmhpkFXSXLVWQQUYA5709-55-10 08:44:64576Pbejisvx DwgmjumURPJNCANNVDE3391-96-90 08:44:003.9[facility] GpycjlxEDALZMJQOONR4270-26-99 08:44:44937Wxkvzscr Hilger NJVFMBXNOWCB9723-97-77 08:44:44553Yivttnrd ZthuxylLMKQYSTLLITO0132-18-89 08:44:007.8[facility] IknlushBSAMRQLTPXSJ2291-12-61 08:44:0030[facility] GAMZQMDLHFZJ2011-78-99 08:44:76665Zmgcuudl FrqzajuNNBFJXSLRXQD2300-28-18 08:44:002[facility] EgmrkpzEMRIVVXZDQRW1969-46-10 08:44:000.67[facility] CPUGSWDVNK5198-35-88 08:44:0010.1[facility] UfxhkenRUPYZFBGOO9602-66-03 08:44:00 3.73[facility] NolgwaiQZATKHGQDC2837-93-42 08:44:0081.8[facility]annHEMATOLOGY 2016-04-11 08:44:008.7[facility] YsgbrejMTJDOEONPJ0070-77-46 08:44:0030.5[facility] JpiyjdgAOVUNLKAQD7132-26-35 08:44:009.0[facility] FhhidhnNZOIHVXNMB0439-67-32 08:44:0033.2[facility] VbsomkcZQEKGVVBGR5640-15-11 08:44:00 Test Item Value Reference Range Interpretation Comments MCH (test code = MCH) 27.1 pg 27.0-31.0 [facility] FqxwcueGVUZAOUCAJ6962-32-52 08:44:0017.4[facility]annHEMATOLOGY 2016-04-11 08:44:35907Thjhwkqs WnigbaiZCDSCGEOKHFS0740-12-12 08:44:009.9[facility] KfqperbGTZALQQLYCDO4902-44-04 08:44:56876Xecvtvit LxngpjyRKDQOQPSEJUM9175-25-53 08:44:003.9[facility] AqzpjoeUAZNISEBHSOL4088-39-58 08:44:96508Hlwisams Eb SJDKBPXXNEUE9393-66-04 08:44:36967Cefixgyb KenzynlCULBTTDWEFTA7965-74-38 08:44:007.8[facility] WkoixhjTYMYQERKYJWU1986-90-36 08:44:0030[facility] RIOIEXNYQJID2686-48-72 08:44:61064Fkamlrtu DajdnarCUXIOZIAEJJW7600-76-61 08:44:002[facility] VaezpppHXIGKWTOCPXZ3362-52-63 08:44:000.67[facility] Eb RSPLFNVXFJ2883-99-41 08:44:0010.1[facility] KatsjpgEWFURUIGST0193-01-49 08:44:00 3.73[facility] RviaxfmXMCWJDGGYH5435-50-49 08:44:0081.8[facility] HermannHEMATOLOGY 2016-04-11 08:44:008.7[facility] QbmdlqvQXKSSIKJVC9570-51-84 08:44:0030.5[facility] XyzpsddNVMOKGEKVY7510-23-25 08:44:009.0[facility] QridiasOLCRCBVPAY6958-85-38 08:44:0033.2[facility] WbwxzuxIDSETPWAXX6557-29-16 16:52:01617Bjiurpeb Eb MXLDDJTRBZ6695-57-54 16:52:0017.2[facility] VromkgtUGNYOSNYKU6906-00-52 16:52:00 8.6[facility] ZuahvfuGCCOHOOMQZ0968-78-98 16:52:0082.1[facility] HermannHEMATOLOGY 2016-04-10 16:52:0033.2[facility] XcldjrdXEITDLRYYW0618-62-82 16:52:00 Test Item Value Reference Range Interpretation Comments MCH (test code = MCH) 26.8 pg 27.0-31.0 [facility] CecquecXNZTWIRFRA4486-94-38 16:52:0032.6[facility] HermannHEMATOLOGY 2016-04-10 16:52:0010.8[facility] YojytorGMCOFGNGJZ0702-88-22 16:52:007.1[facility] YveapnvAXFHMUECVL2161-96-81 16:52:004.04[facility] ChjtdmuDLEOCQFHMW6122-72-23 16:52:79329Yoybrzvb ZsonyzbVDKIHPLPUL2350-20-74 16:52:0017.2[facility] Hilger AHQWWRAKAW4257-52-00 16:52:008.6[facility] JjqvitwHQWKTIDYFV1963-28-92 16:52:00 82.1[facility] KglmssgTFKZOVYHOD9421-86-31 16:52:0033.2[facility] HermannHEMATOLOGY 2016-04-10 16:52:00 Test Item Value Reference Range Interpretation Comments MCH (test code = MCH) 26.8 pg 27.0-31.0 [facility] UltppprMTTALNBIXJ6106-89-17 16:52:0032.6[facility] HermannHEMATOLOGY 2016-04-10 16:52:0010.8[facility] VdxujvaZETTGMEZSN0225-17-55 16:52:007.1[facility] DxohjtzDHBNXFVYYA9349-75-52 16:52:004.04[facility] HermannCHEM KYZEQ2814-51-16 08:33:39365Ywpmhmca HermannCHEM CZCYJ9341-13-07 08:33:000.67[facility] HermannCHEM XZOQF2875-14-08 08:33:004[facility] HermannCHEM FEJWE1117-17-65 08:33:78503 [facility] HermannCHEM UKXQC3576-00-18 08:33:003.5[facility] HermannCHEM PANEL 2016-04-10 08:33:007.8[facility] HermannCHEM YWMHJ4883-41-47 08:33:0031[facility] HermannCHEM HFZVR5425-17-30 08:33:0095[facility] HermannCHEM IUKZC4458-60-31 08:33:007.5[facility] HermannCHEM XWBTX1796-76-43 08:33:54733Lwliwuyr HermannCHEM XBOWF0941-34-18 08:33:61011Divyeyhh HermannCHEM KVHNF0779-13-23 08:33:000.67 [facility] HermannCHEM WXFPF6106-74-76 08:33:004[facility] HermannCHEM PANEL 2016-04-10 08:33:70613Xslqqqoy HermannCHEM YNYCY1402-83-19 08:33:003.5[facility] HermannCHEM PZLIE5859-05-77 08:33:007.8[facility] HermannCHEM MCYPC7989-64-82 08:33:0031[facility] HermannCHEM RWMRT2229-03-89 08:33:0095[facility] HermannCHEM TUUAC0396-53-05 08:33:007.5[facility] HermannCHEM XUOQJ3916-11-88 08:33:15084 [facility] PculsepEFOVNZNMKV7804-01-66 09:19:008.6[facility] HermannHEMATOLOGY 2016-04-09 09:19:59703Krdlopyj EwhhmvjHOZEOIOJAJ7567-76-82 09:19:0011.5[facility] IqusdskETXIBHJORQ8946-77-79 09:19:004.10[facility] EsijjpyEVPNPKIAZX6688-83-71 09:19:0011.1[facility] WydyyowBFATQAYBDE2280-45-84 09:19:00 Test Item Value Reference Range Interpretation Comments MCH (test code = MCH) 27.0 pg 27.0-31.0 [facility] QjofvfwZDNNZFGPUU2473-90-01 09:19:0079.8[facility] HermannHEMATOLOGY 2016-04-09 09:19:0032.7[facility] PklucxrUMECRUMTRZ4582-86-03 09:19:0017.7[facility] UnfnwmeZLPKHBNZBM9239-25-60 09:19:0033.9[facility] RcdofwcHFCFDUTSZM0179-05-72 09:19:0068.8[facility] QviweeeWXZJVFKGBL1754-17-53 09:19:000.4[facility] Eb EMQKGNGEMW0848-50-33 09:19:002.5[facility] CsgziuwCDTCLRFWFK9993-99-74 09:19:007.9 [facility] UwogmgkUBUWWIGAVQ4846-44-65 09:19:000.1[facility] HermannHEMATOLOGY 2016-04-09 09:19:000.9[facility] HiexsxyDWIMKCPXDR8665-90-73 09:19:001.1[facility] LdcnphaZWIVZTXBWP4658-25-49 09:19:008.1[facility] TpfcsiwFTITWEXFJG6854-95-65 09:19:0021.6[facility] UmvlxngORYPYDGSUZ0554-90-97 09:19:008.6[facility] Eb XWTIDOUQMA4556-65-86 09:19:12437Vycsulby CokaeluKZDWQQBJUQ4151-85-25 09:19:00 11.5[facility] PvhchgoWQAPTSMEFH7695-21-44 09:19:004.10[facility] HermannHEMATOLOGY 2016-04-09 09:19:0011.1[facility] EjnmuykFEDKQODUSW4860-60-67 09:19:00 Test Item Value Reference Range Interpretation Comments MCH (test code = MCH) 27.0 pg 27.0-31.0 [facility] SjrxobyNIDUGODAVK9995-84-09 09:19:0079.8[facility] HermannHEMATOLOGY 2016-04-09 09:19:0032.7[facility] NxlemqcVQUPHFPLJE2455-59-66 09:19:0017.7[facility] YtzqsekCAUCQFDCLX6187-18-91 09:19:0033.9[facility] ErtbijdPVAZFWXKRL2655-27-02 09:19:0068.8[facility] LgocgxnOSKBVXFPOE1051-23-82 09:19:000.4[facility] Eb SUYZTDVOIJ7322-73-78 09:19:002.5[facility] LiwqbswEHARUJLAWT3093-66-87 09:19:007.9 [facility] WxczjnrSVWLTNIDBN1741-07-89 09:19:000.1[facility] HermannHEMATOLOGY 2016-04-09 09:19:000.9[facility] GisfpsmUBQTRJNQJH1450-60-16 09:19:001.1[facility] OtazucnDSMPSMAAZD6758-01-06 09:19:008.1[facility] HwmbqosVHHSDDMDGN7694-98-48 09:19:0021.6[facility] HermannCHEM NFUTK9815-88-74 16:28:09941Tgayxwrn Eb FTBYYTTQOIKY0667-88-56 16:28:009.5[facility] BpbxunlTIIYAGDMFTKL0640-75-49 16:28:008[facility] NiwijcuLAOCJUGMDARI8636-57-16 16:28:001.2[facility] Hilger IVEGZYELMPOK8392-08-41 16:28:003.3[facility] DtedvmfCFRCJYJXVEFM1075-79-21 16:28:0029[facility] FatihaoWBLCAIXLPJDP0200-45-74 16:28:29155Qtmuntqq Hilger EXKYOCAXQGSB3044-50-24 16:28:000.4[facility] UtqqrbtXYDFANRXUZGJ3055-43-76 16:28:008.5[facility] NbwfckvQCNUYJZHROYT5951-46-21 16:28:007.1[facility] Eb RCOVMCHHNLRB4180-12-86 16:28:0015[facility] YgksabuHCPEBYQINFOY8899-15-75 16:28:00 117[facility] SyothlcJSAAEOLHYHTE0683-77-55 16:28:003.8[facility] Eb DZXHNXJJVXQK5768-69-50 16:28:03966Nwevldck JassvzeMCVMBRBZQPEN5810-06-69 16:28:0020[facility] ExsdyppCKKPYKINULWT0343-12-16 16:28:0080[facility] BWBELQKKUDVA7057-93-50 16:28:003.5[facility] SgktnalCNRYJJAUJMVX0948-85-03 16:28:006[facility] DdyfwmyUBEMVKHTGXXY6963-40-99 16:28:64336Kvdoavfg Hilger MLZRJVTAGQGW5836-13-95 16:28:000.71[facility] TuvjxppNFBSHTPBZF5384-49-73 16:28:00 0.3[facility] QqoiqydUVCTOSGPTR8256-70-86 16:28:000.1[facility] HermannHEMATOLOGY 2016-04-08 16:28:0010.1[facility] GgjyotrAYKXPWCXBM9003-88-98 16:28:001.7[facility] TjspzkpMHLOUXZBFP3641-26-25 16:28:000.7[facility] YxaivelDMKWOOILGV2905-75-59 16:28:0080.1[facility] HjkxmeyYRWEIIOQGA9816-08-59 16:28:005.8[facility] Eb RWJCDBWSYS3378-99-60 16:28:000.6[facility] UpbhawpIVLOQJRMTE2144-25-54 16:28:00 13.2[facility]annURINE AND LQKEL1872-15-39 16:28:00 Test Item Value Reference Range Interpretation Comments UA Spec Grav (test code = UA Spec 1.015 1 Grav) [facility] LEVBU0943-50-70 16:28:00Clear (04/08/16 11:28 AM) [facility] UCMOA0136-11-51 16:28:00Yellow *NA*(04/08/16 11:28 AM) [facility] OFMNC7135-66-09 16:28:00Negative *NA*(04/08/16 11:28 AM)[facility] FERCU6759-79-82 16:28:00 Test Item Value Reference Range Interpretation Comments UA pH (test code = UA pH) 8.5 1 5.0-8.0 [facility] SQDMA2129-52-45 16:28:00Negative (04/08/16 11:28 AM) [facility] HBJGP0104-89-29 16:28:00Negative (04/08/16 11:28 AM) [facility] CEDCM1286-71-02 16:28:000.2[facility] AND YFJKC4461-06-07 16:28:00Negative (04/08/16 11:28 AM)[facility] CHEM 2016-04-08 16:28:00Negative (04/08/16 11:28 AM)[facility] HermannCHEM PANEL 2016-04-08 16:28:55258Ooylkkdi MrovcdvRMCRHAKRPNIJ3670-30-22 16:28:009.5[facility] ZpwceocFIPRPDMDWGHZ9636-40-17 16:28:008[facility] AviicupVJAQGGZPEBGB1286-09-99 16:28:001.2[facility] MimhfdgYYTOHQHSPMJB4824-54-88 16:28:003.3[facility] JULNNNRHQNOL4139-75-81 16:28:0029[facility] ItvehhsAFNUEZTWQVEL1137-90-07 16:28:00 106[facility] OkfyelzXYZXVKTHQJOL4399-53-94 16:28:000.4[facility] Eb HHACTHAKCDED7956-41-73 16:28:008.5[facility] IlpdojnJPXWGTEMVTNV3061-27-45 16:28:007.1[facility] VlitvdlWTQNDPSXJCZV6932-48-48 16:28:0015[facility] Eb RMOHKMKFEHYN5339-78-02 16:28:77732Jhvuvzun NvtpdrxRNYSCDOBUIMQ1176-15-55 16:28:003.8[facility] TgckxlfLEFLKVHHJMGQ6950-23-61 16:28:37342Eqgdotfd Hilger OCRDIETBSTDR6270-35-07 16:28:0020[facility] NlgbijgGKNYSMVGJEIZ4730-36-93 16:28:00 80[facility] KomrytrNDUSXFWUPBTP9873-23-68 16:28:003.5[facility] HermannELECTROLYTES 2016-04-08 16:28:006[facility] BnlxnbyTCAHDJGCUFNL5061-30-19 16:28:94505Dkstxthy ZjdkgmzLIMPJDLUNYXP8178-42-19 16:28:000.71[facility] AmigokwOTATISLVPX4386-51-44 16:28:000.3[facility] MazrvjeRRUAQMVXSY9405-81-83 16:28:000.1[facility] Eb AWSRNLLAPH6511-44-10 16:28:0010.1[facility] KsxtsqnIYERMXAOKI9610-61-87 16:28:00 1.7[facility] OovtfaySZLNPADOIW4866-37-41 16:28:000.7[facility] HermannHEMATOLOGY 2016-04-08 16:28:0080.1[facility] YdclzdxIQCZXSCOEI2179-76-49 16:28:005.8[facility] AqaswxuVROVNGXXZB0276-13-24 16:28:000.6[facility] RlluzshNKZTMRHVQT1326-38-07 16:28:0013.2[facility] AND ERTYR2069-28-34 16:28:00 Test Item Value Reference Range Interpretation Comments UA Spec Grav (test code = UA Spec 1.015 1 Grav) [facility] EIBHO9168-46-98 16:28:00Clear (04/08/16 11:28 AM) [facility] FVDHR3307-87-84 16:28:00Yellow *NA*(04/08/16 11:28 AM) [facility] QLLZJ0523-18-62 16:28:00Negative *NA*(04/08/16 11:28 AM)[facility] IECNF3818-57-79 16:28:00 Test Item Value Reference Range Interpretation Comments UA pH (test code = UA pH) 8.5 1 5.0-8.0 [facility] IDAQB7859-61-28 16:28:00Negative (04/08/16 11:28 AM) [facility] MWRFP9048-71-81 16:28:00Negative (04/08/16 11:28 AM) [facility] AGVMC3166-94-55 16:28:000.2[facility] XNRMD8487-52-30 16:28:00Negative (04/08/16 11:28 AM)[facility] CHEM 2016-04-08 16:28:00Negative (04/08/16 11:28 AM)[facility] HermannELECTROLYTES 2015-12-24 11:08:0014.3[facility] OyqgxmqNYXVQWMMOEFO6701-65-97 11:08:93092 [facility] IhrhxbhRKCEKKFOQLJN8466-63-06 11:08:003.3[facility] HermannELECTROLYTES 2015-12-24 11:08:0023[facility] NcgavtqHKXNOXCWDIER9803-16-26 11:08:007.6[facility] VfsyjnqECPSMCUJDGWH3987-84-41 11:08:000.64[facility] UndwojqCZBBCFMHBAMU7551-93-58 11:08:005[facility] DwdvfmhBZSJRHGXYYJT3547-43-28 11:08:28266Dbgdvxyf Hilger ABGKYZPZSYTO3235-25-45 11:08:21542Jhcizxde LyebaztUVQTVFRDBEAN5008-10-46 11:08:53570Gsezsvft QqrzgfjTUIHVRYSFN3302-25-15 11:08:48427Jweddvbz Eb WALIBMSPJP4116-70-95 11:08:008.1[facility] ItblacwAVZUEEBYQX0974-58-79 11:08:00 82.2[facility] JrqnivdKUYDFOXQLC6287-89-38 11:08:0032.4[facility]annHEMATOLOGY 2015-12-24 11:08:0017.7[facility] PxldvqdDGHPQZQWOH2597-37-31 11:08:00 Test Item Value Reference Range Interpretation Comments MCH (test code = MCH) 26.7 pg 27.0-31.0 [facility] PoptrfxBXKFTWRHSN9143-74-54 11:08:003.93[facility] HermannHEMATOLOGY 2015-12-24 11:08:0032.3[facility] BsanclbIQYEUEUBBV4081-10-90 11:08:0010.5[facility] LseizpyQRNISPERIJ2144-72-85 11:08:009.5[facility] ZdwuxrzNAGVBGZHTYWY6464-02-21 11:08:0014.3[facility] GzvwdmoEMXLDFRUSHGA6083-16-32 11:08:28248Ltokteld Hilger ZXWSYTKFWZHQ5628-88-36 11:08:003.3[facility] FtjnrifLFLXWIQEDUFI4522-24-19 11:08:0023[facility] RvmootbQRKFWTNFGHDD8000-31-70 11:08:007.6[facility] Eb AWETYZBFOIEJ6477-18-01 11:08:000.64[facility] LymptpcUFNFZCKILGPC7925-52-66 11:08:005[facility] BmeszitGBVRPVJXGEXM2937-36-82 11:08:51931Fgiooelf Eb HQYJFZCSPIJH6941-14-04 11:08:45359Qbmxqklt PxjnsxxVQJJTUQNBQXT0294-56-48 11:08:04985Roccgbbh FmipqllDWRORXVZEO3690-04-85 11:08:51114Skqxsoei Eb COYVQBRBWY2842-82-23 11:08:008.1[facility] GvdjoknJVMEXOLVEH8208-05-37 11:08:00 82.2[facility] UflopohRQHENYWDXI2562-87-39 11:08:0032.4[facility]annHEMATOLOGY 2015-12-24 11:08:0017.7[facility] LeumuvlDXCKQWELIG4605-46-83 11:08:00 Test Item Value Reference Range Interpretation Comments MCH (test code = MCH) 26.7 pg 27.0-31.0 [facility] GntfqobTWIAMVZWRV7863-67-34 11:08:003.93[facility]annHEMATOLOGY 2015-12-24 11:08:0032.3[facility] AhbzzvtGAIWDXJXWE1384-07-59 11:08:0010.5[facility] YklhbtgJPYFNGUDTG4007-76-19 11:08:009.5[facility] HermannCHEM LRMKD0462-67-32 07:33:78318Mljpmkjl HermannCHEM MPIEK0713-96-23 07:33:003.9[facility] HermannCHEM CQSGC5511-84-87 07:33:55690Riubypyu HermannCHEM WBPID4567-62-40 07:33:000.61 [facility]annCHEM GBZFX4507-38-11 07:33:15584Ufetrpyh HermannCHEM PANEL 2015-12-22 07:33:008.1[facility] HermannCHEM TGUYU7430-67-09 07:33:0010[facility] HermannCHEM KVIPG0910-97-35 07:33:0088[facility] HermannCHEM AAMAH2453-92-99 07:33:0023[facility] HermannCHEM MAZYP3010-89-76 07:33:0013.9[facility] Eb GEYXJKAIBH4201-42-92 07:33:25351Tppxyhdk AbiztfjEBAOGEWGVS1560-05-63 07:33:008.3 [facility] CxtevphTQCNFRJPVN0411-69-97 07:33:0018.3[facility] HermannHEMATOLOGY 2015-12-22 07:33:0082.4[facility] DgndymbIFEERTVTOX3214-76-05 07:33:0032.1[facility] MxetyyvDKYSRVINJD7819-84-18 07:33:00 Test Item Value Reference Range Interpretation Comments MCH (test code = MCH) 26.4 pg 27.0-31.0 [facility] NpykrlrTREUNLNMIT3846-98-25 07:33:0034.7[facility] HermannHEMATOLOGY 2015-12-22 07:33:004.21[facility] VbdpeddVFNETZZFQP3879-05-34 07:33:0011.1[facility] VmazyqsGDSJMQVHTV7299-23-20 07:33:0014.8[facility] GzojtdrATXEZOUGPA3288-85-08 07:33:002.1[facility] RsqhsgzTMFDDCMXFP0762-65-80 07:33:000.9[facility] Eb FHQUYDOLTZ3075-98-19 07:33:0011.7[facility] KolkmqwAHILOQVFQM5055-33-36 07:33:00 0.3[facility] JybhzdkRYCQSZJPBU4171-97-05 07:33:0014.1[facility] HermannHEMATOLOGY 2015-12-22 07:33:000.3[facility] OpzijxiLYLENHPRCP5940-40-99 07:33:006.3[facility] WouflgpPTDCHLMSJH9277-38-80 07:33:0079.0[facility] HermannCHEM DENGY3856-86-83 07:33:36341Mgpqyxav HermannCHEM AGJIG1757-01-12 07:33:003.9[facility] HermannCHEM AZLTU0987-50-57 07:33:43996Xwwquhgy HermannCHEM TNTQL4683-28-64 07:33:000.61 [facility]annCHEM WXZWG8292-59-27 07:33:88486Fimdirya HermannCHEM PANEL 2015-12-22 07:33:008.1[facility] HermannCHEM BNNSG3526-22-64 07:33:0010[facility] HermannCHEM GQZZS1822-59-41 07:33:0088[facility] HermannCHEM QXJHF2678-31-37 07:33:0023[facility] HermannCHEM DMOQZ7404-34-55 07:33:0013.9[facility]ger YLXHMDRUSJ6793-62-26 07:33:12253Abnxlakq CashahwBTYAOIZUKJ2705-25-62 07:33:008.3 [facility] DmkjkpiMFUWAKGBAZ7928-95-54 07:33:0018.3[facility] HermannHEMATOLOGY 2015-12-22 07:33:0082.4[facility] AbffualLWBUZXHTNF5312-31-66 07:33:0032.1[facility] DhqfeexUPYLSSUOSR9564-22-95 07:33:00 Test Item Value Reference Range Interpretation Comments MCH (test code = MCH) 26.4 pg 27.0-31.0 [facility] NmuwjfxPGADFGYCAW6587-87-06 07:33:0034.7[facility] HermannHEMATOLOGY 2015-12-22 07:33:004.21[facility] VoewcykMFAKRCHFHM6903-68-54 07:33:0011.1[facility] FvbdbccCDYKAMWDUN6354-38-10 07:33:0014.8[facility] FtsoquyRTMFSPGVOF4197-28-12 07:33:002.1[facility] AbymbuhGZWPIUKRQE1727-83-34 07:33:000.9[facility] Eb TXAOCRKSEE9356-68-78 07:33:0011.7[facility] McylgnwMZYEOEMEWM2517-54-29 07:33:00 0.3[facility] WbovvxnPMVZHUSTAU2251-29-83 07:33:0014.1[facility] HermannHEMATOLOGY 2015-12-22 07:33:000.3[facility] UzexrtdJVPSOPHBRF0090-83-17 07:33:006.3[facility] LojapkkYDHPADNPKH4493-24-73 07:33:0079.0[facility] STOOL 2015-12-21 22:21:00Yellow *NA*(12/21/15 5:21 PM)[facility] 2015-12-21 22:21:00Clear (12/21/15 5:21 PM)[facility] ST[facility]OL 2015-12-21 22:21:000.2[facility] JVOSE5050-13-61 22:21:00Negative (12/21/15 5:21 PM)[facility] HRGQM0334-40-32 22:21:00 Test Item Value Reference Range Interpretation Comments UA pH (test code = UA pH) 8.0 1 5.0-8.0 [facility] GQIWX3976-55-95 22:21:00 Test Item Value Reference Range Interpretation Comments UA Spec Grav (test code = UA Spec 1.015 1 Grav) [facility] CAGHH3724-47-71 22:21:00Negative (12/21/15 5:21 PM) [facility] MKTXW8733-30-21 22:21:00Negative *NA*(12/21/15 5:21 PM) [facility] IACGP3733-84-06 22:21:00Negative (12/21/15 5:21 PM) [facility] AMJZL4003-71-34 22:21:00Negative (12/21/15 5:21 PM) [facility] ZGVXU1960-54-90 22:21:00Negative (12/21/15 5:21 PM) [facility] CGDLB3358-22-46 22:21:00See Note (12/21/15 5:21 PM) [facility] ZFOA9328-81-56 22:21:00Negative (12/21/15 5:21 PM)[facility] AGNNR9632-47-30 22:21:00Yellow *NA*(12/21/15 5:21 PM)[facility] UTFXM2321-75-83 22:21:00Clear (12/21/15 5:21 PM)[facility] ATPZS3304-49-57 22:21:000.2[facility] RXBVP2990-25-25 22:21:00Negative (12/21/15 5:21 PM)[facility] NUQIH2907-24-50 22:21:00 Test Item Value Reference Range Interpretation Comments UA pH (test code = UA pH) 8.0 1 5.0-8.0 [facility] AVZVD5318-21-10 22:21:00 Test Item Value Reference Range Interpretation Comments UA Spec Grav (test code = UA Spec 1.015 1 Grav) [facility] DFVAM9212-17-86 22:21:00Negative (12/21/15 5:21 PM) [facility] BRLSF0347-85-01 22:21:00Negative *NA*(12/21/15 5:21 PM) [facility] GKPQS3452-46-33 22:21:00Negative (12/21/15 5:21 PM) [facility] HPJOU0424-05-88 22:21:00Negative (12/21/15 5:21 PM) [facility] DHVSO8720-72-48 22:21:00Negative (12/21/15 5:21 PM) [facility] SUYJL1765-73-24 22:21:00See Note (12/21/15 5:21 PM) [facility] EDLU4281-62-09 22:21:00Negative (12/21/15 5:21 PM)[facility]annCHEM SISCF5690-32-30 21:21:17727Lnnmtipg HermannCHEM MJAGO3147-40-96 21:21:14329Pihbmzdk HermannCHEM ULPKG6462-86-41 21:21:004.4[facility]annCHEM GYODG3378-90-40 21:21:0026[facility]annCHEM ASRGU8393-51-47 21:21:009[facility]annCHEM NYGWE7364-37-43 21:21:26709Parpcvjr HermannCHEM FJQHC9397-16-66 21:21:0091[facility]annCHEM GVGUS0468-53-30 21:21:000.74[facility]annCHEM ORBPK3443-21-35 21:21:0023[facility]annCHEM KJGOH3430-15-60 21:21:008.4 [facility]annCHEM HPRWO2931-22-79 21:21:15795Ukziphzq HermannCHEM PANEL 2015-12-21 21:21:003.9[facility]annCHEM FSRLE8598-72-74 21:21:74748Fjznlitm HermannCHEM RGQQK0230-61-52 21:21:000.6[facility]annCHEM YCBUN6735-90-12 21:21:008.8[facility]annCHEM FRDBO7117-20-62 21:21:0020[facility]annCHEM XLZDP5677-82-15 21:21:001.1[facility]annCHEM VHOKO5614-26-26 21:21:004.0 [facility]annCHEM MJZYO8815-55-45 21:21:0012[facility]annCHEM PANEL 2015-12-21 21:21:0015.9[facility] TuhbamzDVTVYMJEIC8555-22-87 21:21:002.5[facility] UryhqbgMLKLHJAZVW2504-25-63 21:21:000.1[facility] AlgrzdwQKSZCPUJUF9939-50-99 21:21:000.8[facility] DhtsynfTQVQRKJKAF4796-30-82 21:21:005.1[facility] BXPDRVWXGJ2055-16-56 21:21:0015.3[facility] LxhafbmWAPPIUKEIP5883-07-48 21:21:00 0.1[facility] JbtsacaRUYDWRODQJ1997-70-56 21:21:0013.1[facility]annHEMATOLOGY 2015-12-21 21:21:000.6[facility] VbegexrRGXREHENAA8129-59-94 21:21:0078.9[facility] TdclwamBMYKTNYIUQ3741-11-53 21:21:007.8[facility] WigznsqJRVJCSWCYC0225-38-69 21:21:00 Test Item Value Reference Range Interpretation Comments MCH (test code = MCH) 26.3 pg 27.0-31.0 [facility] AewqhucGWSYSAMZBV4808-18-79 21:21:0018.0[facility]annHEMATOLOGY 2015-12-21 21:21:0032.6[facility] OcgzqbxGMKVNFSIIO3734-96-09 21:21:74777Etugflff YwwcuzsBRPKFUOIZQ4376-79-26 21:21:0016.6[facility] JseaxrhNHCHIPKULG7899-10-50 21:21:004.76[facility] XucgudiBRWAXCTVBA7415-15-60 21:21:0012.5[facility] XKQMHLVSRT0860-61-25 21:21:0038.3[facility] BpgxevrFJVOQKGZIZ9176-00-31 21:21:00 80.5[facility] HermannCHEM HUFFD7497-96-95 21:21:20532Hlkuhyix HermannCHEM PANEL 2015-12-21 21:21:94671Ildajltp HermannCHEM DOFHT1651-02-16 21:21:004.4[facility]annCHEM VEFAC5767-92-37 21:21:0026[facility]annCHEM VTGSZ1655-91-47 21:21:009[facility]annCHEM WLUSO1130-03-49 21:21:11990Jphjukac HermannCHEM EZEZY1972-04-21 21:21:0091[facility]annCHEM TRSPR2674-44-84 21:21:000.74 [facility]annCHEM ICRXP5181-15-16 21:21:0023[facility] HermannCHEM PANEL 2015-12-21 21:21:008.4[facility] HermannCHEM APPAV4227-52-31 21:21:84923Pwkvatre HermannCHEM NORDZ7424-85-03 21:21:003.9[facility] HermannCHEM JCTGB7961-09-55 21:21:21892Uxgpnxdq HermannCHEM AZFQN6443-54-85 21:21:000.6[facility] HermannCHEM QLIGD3437-25-57 21:21:008.8[facility] HermannCHEM NFAHV0319-28-57 21:21:0020 [facility]annCHEM QADHZ0910-95-40 21:21:001.1[facility] HermannCHEM PANEL 2015-12-21 21:21:004.0[facility]annCHEM WSCKD3624-72-89 21:21:0012[facility]annCHEM QCFTR5160-17-68 21:21:0015.9[facility] HxcayqdMYPGGFJMYU8401-30-52 21:21:002.5[facility] KpfkoczCPASPDVFSZ8474-10-55 21:21:000.1[facility] ZTIHPVYMSY7032-46-60 21:21:000.8[facility] CnuphkoVCOIVNTEAN0682-08-21 21:21:005.1 [facility] VdtvpecSIMMVSERCD8140-97-04 21:21:0015.3[facility] HermannHEMATOLOGY 2015-12-21 21:21:000.1[facility] AtwokgrHDQDXKHKTG9394-73-62 21:21:0013.1[facility] IoggxqyXMLREXSLOS4624-55-01 21:21:000.6[facility] IsqndwrLTQLVQXMNN8661-23-92 21:21:0078.9[facility] LbeqegjESKRXZOWNM1970-95-45 21:21:007.8[facility] HIFIIEAXNC0735-66-30 21:21:00 Test Item Value Reference Range Interpretation Comments MCH (test code = MCH) 26.3 pg 27.0-31.0 [facility] PpntainJOGCLEMFNG6197-24-12 21:21:0018.0[facility] HermannHEMATOLOGY 2015-12-21 21:21:0032.6[facility] YgncpasYZRJRIMRPV3867-58-05 21:21:92258Siieduld VoazzehYGPJYLCDDA1381-33-98 21:21:0016.6[facility] YsgsooiYEVQKCDKFN8765-50-27 21:21:004.76[facility] AihxlgpGHQAJRWJOM2532-41-91 21:21:0012.5[facility] KERCOPRKKO2477-04-93 21:21:0038.3[facility] NsllovtKOPOMASCPZ6496-08-27 21:21:00 80.5[facility] HermannCHEM JFNNS4138-07-21 00:23:43669Zfzpaekd HermannELECTROLYTES 2015-12-21 00:23:0011.7[facility] TajpnqzEGBOFYQDZJXT5475-54-91 00:23:15355 [facility] GhvgpxdJBNKZMJRNJKK3824-37-76 00:23:008[facility] HermannELECTROLYTES 2015-12-21 00:23:0095[facility] RaobxtvIWLSLZUPRWBA6687-38-54 00:23:14229Zqfypdlb GizfrlkXQESWNLDALWD1018-12-51 00:23:000.76[facility] ZdmerwqMYZRNRWCIJWR6113-72-47 00:23:0025[facility] BkmmxhyAFZERCXTJTFG9923-49-97 00:23:008.8[facility] VPRCNHKVUQSA2794-31-31 00:23:52909Vqftkwsd YnozwtfKNJNDFPBFOGA5237-10-81 00:23:003.7[facility] RquemcdGDBFOYTXUC3538-24-47 00:23:0036.3[facility] Eb MIQDTZCSOI8812-92-54 00:23:0011.6[facility] KknbmgvBQGHOYPSME7393-91-04 00:23:00 4.47[facility] CjollykBOZOOVNEXL0735-73-32 00:23:22682Twtvoqea HermannHEMATOLOGY 2015-12-21 00:23:0018.3[facility] HuyloovRLEPJRJVQD1869-68-56 00:23:0031.9[facility] LzngdtsSPCRGRVVCQ8500-60-79 00:23:00 Test Item Value Reference Range Interpretation Comments MCH (test code = MCH) 25.9 pg 27.0-31.0 [facility] AosxmuuHCZRQSXYJO1880-05-58 00:23:0081.3[facility] HermannHEMATOLOGY 2015-12-21 00:23:008.0[facility] IutrpurTZEPNSYIIW6337-57-25 00:23:0016.4[facility] BbtfxovFUHDOFNYRO3103-37-73 00:23:000.1[facility] FsjfzanQYVYWVQIKY4292-04-84 00:23:000.8[facility] QijrltzFCDQMWYGYW1484-77-10 00:23:000.1[facility] Hilger QFUUWRDXFH2592-19-40 00:23:0014.3[facility] FdqtbelUNTERQWZEB9501-17-31 00:23:00 80.0[facility] FswildzPCHLNXJVHQ0308-05-60 00:23:004.7[facility] HermannHEMATOLOGY 2015-12-21 00:23:002.4[facility] WttqzkxJAYMXVZVRJ6260-31-37 00:23:0013.1[facility] ZvahmjvQELONQBXOH0517-71-69 00:23:000.4[facility] TwkgbrlGUCGWOXMVL8058-37-09 00:23:000.6[facility] HermannCHEM ZCHUU0190-46-40 00:23:14820Rbalvdjl Eb ZVWNBUYYXWDW1547-81-74 00:23:0011.7[facility] FfkghymSRTMZQEGLXVE3368-48-79 00:23:30875Ktfyopah MqdyomzTKTIUPOXTNWB8198-58-79 00:23:008[facility] Eb RQLYMTSDWMYB4288-64-55 00:23:0095[facility] YzdreugJMPYLURUGMBQ0137-77-22 00:23:00 139[facility] HbdmurfGOUSZGHGSZTH8296-19-88 00:23:000.76[facility] Eb FSXWPNFJXVWP5122-21-81 00:23:0025[facility] ItdvrofABSUGFRLOMQW6544-36-09 00:23:00 8.8[facility] RlvgxtzDFLHZMEVBPRG1125-81-16 00:23:09073Owcertzx Eb QDKLDMVXOGCA5810-85-32 00:23:003.7[facility] YqjzbwlZPXSPQDZQD7801-44-56 00:23:00 36.3[facility] IiymewzROMPHRTPDL5913-06-98 00:23:0011.6[facility] HermannHEMATOLOGY 2015-12-21 00:23:004.47[facility] OylmgsoYXJXXCIWYC9863-44-79 00:23:64511Kgcsgzmu UioabdoIKKTRJPMMM9631-46-01 00:23:0018.3[facility] LlnesnfLESPVSNCGH9342-25-58 00:23:0031.9[facility] WlugkmwLAXQSBVPAI1704-63-52 00:23:00 Test Item Value Reference Range Interpretation Comments MCH (test code = MCH) 25.9 pg 27.0-31.0 [facility] OfljmoxWKGILBHKNI9897-53-34 00:23:0081.3[facility] HermannHEMATOLOGY 2015-12-21 00:23:008.0[facility] LftwlvhURPYLGCKRR0244-21-56 00:23:0016.4[facility] FrsslznSBAIEKCDYB4460-44-64 00:23:000.1[facility] VnuhdimSZVYSUWJJO6780-11-96 00:23:000.8[facility] TedrtqyCJUKIEYSPV7646-76-19 00:23:000.1[facility] Eb CXQFLCUAXI5325-57-22 00:23:0014.3[facility] FkakmoxARRREGNOVE5843-77-39 00:23:00 80.0[facility] OjlvuowPYRJLHHAVL3620-56-19 00:23:004.7[facility] HermannHEMATOLOGY 2015-12-21 00:23:002.4[facility] JvkhkiyZOFCHFDBFA1683-02-74 00:23:0013.1[facility] YgeenrzJYZMTDLYWY0308-23-62 00:23:000.4[facility] RezjmimXZEBVNVCEY1396-19-91 00:23:000.6[facility] HermannURINE AND ORHDN1881-08-49 23:17:00Negative (12/20/15 6:17 PM)[facility] AND YDDOE7350-97-72 23:17:00Negative (12/20/15 6:17 PM)[facility] AND SAJNX1755-24-11 23:17:00Negative (12/20/15 6:17 PM) [facility] AND IVQYY4496-77-31 23:17:00Clear (12/20/15 6:17 PM)[facility] AND GCFZX9789-63-69 23:17:00 Test Item Value Reference Range Interpretation Comments UA Spec Grav (test code = UA Spec 1.015 1 Grav) [facility] YJZKB1441-93-33 23:17:00Yellow *NA*(12/20/15 6:17 PM) [facility] XNCJY2472-16-78 23:17:000.2[facility] AND VDQAE2917-69-03 23:17:00Performed (12/20/15 6:17 PM)[facility] AND AEYYV9448-25-80 23:17:00Negative (12/20/15 6:17 PM)[facility] STOOL [...] Spec 1.015 1 Grav) [facility] QKZEG8190-27-39 23:17:00Yellow *NA*(12/20/15 6:17 PM) [facility] SALSG4022-06-78 23:17:000.2[facility] AND QBWBB4588-39-84 23:17:00Performed (12/20/15 6:17 PM)[facility] AND ISBTU6517-04-34 23:17:00Negative (12/20/15 6:17 PM)[facility] STOOL 2015-12-20 23:17:00>=9.0 *ABN*(12/20/15 6:17 PM)[facility] STOOL 2015-12-20 23:17:00Negative *NA*(12/20/15 6:17 PM)[facility] STOOL 2015-12-20 23:17:00Trace *ABN*(12/20/15 6:17 PM)[facility] STOOL 2015-12-20 23:17:00Negative *NA*(12/20/15 6:17 PM)[facility] CHEM 2015-12-20 23:17:00Negative (12/20/15 6:17 PM)[facility] Eb
[2020-08-05 22:12] LABS: Absolute Lymphocytes (CBC) 3.2 K/uL (0.7-4.9); Basophils % 0.3 % (0-1.3); Hematocrit 38.8 % (36.0-45.0); Lymphocytes % 16.6 % (15.3-44.8); MPV 8.6 fL (7.6-11.3); RBC Red Blood Cell Count 4.59 M/uL (3.86-4.86)
[2020-08-05 22:13] LABS: Urine Blood NEGATIVE (NEG); Urine Glucose NEGATIVE (NEG); Urine Protein NEGATIVE (NEG); Urine Specific Gravity 1.015 (1.005-1.030); Urine pH 6.5 (5.0-7.0)
[2020-08-05 22:16] LABS: Protime INR 1.13
[2020-08-05 22:21] LABS: Urine Bacteria 20-50 /HPF (<20); Urine RBC NONE SEEN /HPF (NONE SEEN)
[2020-08-05 22:31] LABS: SARS-COV-2 RT PCR NEGATIVE (NEGATIVE)
[2020-08-05 22:38] LABS: ALT/SGPT 23 U/L (12-78); AST/SGOT 17 U/L (15-37); Albumin 3.8 g/dL (3.4-5.0); Alkaline Phosphatase 114 U/L (45-117); BUN Blood Urea Nitrogen 7 mg/dL (7-18); Bicarbonate 22 mmol/L (21-32); Bilirubin Direct 0.1 mg/dL (0-0.2); Bilirubin Total 0.4 mg/dL (0.2-1.0); Ferritin 38.1 ng/mL (8-388); Glucose Level 92 mg/dL (74-106); Lipase 68 U/L (73-393); Potassium 3.5 mmol/L (3.5-5.1); Protein, Total 8.1 g/dL (6.4-8.2); Sodium Level 139 mmol/L (136-145); Troponin (Emerg Dept Use Only) < 0.02 ng/mL (0.0-0.045)
[2020-08-05] MEDS ORDERED: ALBUTEROL 2.5 MG/3 ML NEB SOL ONE (23:27)
[2020-08-05] MEDS ORDERED: METHYLPREDNISOLONE 125 MG INJ ONE (23:27)
[2020-08-05] MEDS ORDERED: IPRATROPIUM BROM 0.5MG/2.5ML ONE (23:27)
--- NOTE | 2020-08-06 00:23 | EDPHYS ---
Physician Documentation [facility] Name: Jaye Pérez Age: 30 yrs Sex: Female : 1990 Arrival Date: 08/05/2020 Time: 20:58 Bed 24 Private MD: ED Physician Hiram Hyatt HPI: 08/06 04:00 This 30 yrs old Female presents to ER via Ambulatory with complaints of Chest tw4 Pain, Shortness Of Breath. 04:00 The patient has shortness of breath at rest. Onset: The symptoms/episode began/occurred tw4 just prior to arrival, 3 month(s) ago, and became worse yesterday. Duration: The symptoms are continuous, and are unchanged since they started. The patient's shortness of breath has no apparent modifying factors. Associated signs and symptoms: The patient has no apparent associated signs or symptoms. The patient has experienced similar episodes in the past, several times. 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 - Social history:: Smoking status: Patient reports the use of cigarette tobacco products, smokes one-half pack cigarettes per day. ROS: 04:00 Constitutional: Negative for fever, chills, and weight loss, Eyes: Negative for injury, tw4 pain, redness, and discharge, Cardiovascular: Negative for chest pain, palpitations, and edema, Abdomen/GI: Negative for abdominal pain, nausea, vomiting, diarrhea, and constipation, Back: Negative for injury and pain, MS/Extremity: Negative for injury and deformity, Skin: Negative for injury, rash, and discoloration, Neuro: Negative for headache, weakness, numbness, tingling, and seizure. 04:00 Respiratory: Positive for shortness of breath, wheezing. Exam: 04:00 Constitutional: This is a well developed, well nourished patient who is awake, alert, tw4 and in no acute distress. Head/Face: Normocephalic, atraumatic. Chest/axilla: Normal chest wall appearance and motion. Nontender with no deformity. No lesions are appreciated. Cardiovascular: Regular rate and rhythm with a normal S1 and S2. No gallops, murmurs, or rubs. Normal PMI, no JVD. No pulse deficits. 04:00 Abdomen/GI: Soft, non-tender, with normal bowel sounds. No distension or tympany. No guarding or rebound. No evidence of tenderness throughout. Back: No spinal tenderness. No costovertebral tenderness. Full range of motion. Skin: Warm, dry with normal turgor. Normal color with no rashes, no lesions, and no evidence of cellulitis. MS/ Extremity: Pulses equal, no cyanosis. Neurovascular intact. Full, normal range of motion. Neuro: Awake and alert, GCS 15, oriented to person, place, time, and situation. Cranial nerves II-XII grossly intact. Motor strength 5/5 in all extremities. Sensory grossly intact. Cerebellar exam normal. Normal gait. 04:00 Respiratory: mild respiratory distress is noted, Respirations: normal, Breath sounds: wheezing: Vital Signs: 08/05 21:02 BP 143 / 77; Pulse 115; Resp 20; Temp 99.8; Pulse Ox 91% ; Weight 79.38 kg; Height 5 ll1 ft. 4 in. (162.56 cm); Pain 8/10; 22:29 BP 128 / 84; Pulse 105; Resp 20; Pulse Ox 96% 3 lpm ; vg1 23:00 BP 99 / 60; Pulse 100; Resp 24; Pulse Ox 96% on 3 lpm NC; vg1 23:30 BP 118 / 58; Pulse 105; Resp 18; Pulse Ox 97% on R/A; vg1 08/06 00:00 BP 123 / 78; Pulse 116; Resp 20; Pulse Ox 93% on 4 lpm NC; sf 00:34 BP 123 / 78; Pulse 122; Resp 24 S; Pulse Ox 96% on Nebulizer Mask; bb 02:00 BP 124 / 70; Pulse 118; Resp 20; Pulse Ox 94% ; sf 03:00 BP 114 / 70; Pulse 117; Resp 20; Pulse Ox 93% ; sf 02 21:02 Body Mass Index 30.04 (79.38 kg, 162.56 cm) ll1 MDM: 08/05 21:15 Patient medically screened. 08/06 04:00 Differential diagnosis: Anemia Anxiety Reaction Myocardial Infarction pneumonia, tw4 Pneumothorax reactive airway disease, Sepsis. Data reviewed: vital signs, nurses notes. Data interpreted: Pulse oximetry: Interpretation: normal. Counseling: I had a detailed discussion with the patient and/or guardian regarding: the historical points, exam findings, and any diagnostic results supporting the discharge/admit diagnosis, lab results, radiology results. Counseling: I had a detailed discussion with the patient and/or guardian regarding: smoking cessation. Physician consultation: Arnold Roman MD regarding admission, to the telemetry unit. patient's condition, and will see patient in inpatient room. 08/05 21:14 Order name: Blood Culture Adult (2) 08/05 21:14 Order name: BMP 08/05 21:14 Order name: C-Reactive Protein 08/05 21:14 Order name: CBC with Diff 08/05 21:14 Order name: D-Dimer 08/05 21:14 Order name: Ferritin 08/05 21:14 Order name: Flu 08/05 21:14 Order name: Lactate 08/05 21:14 Order name: LFT's 08/05 21:14 Order name: Lipase; Complete Time: 00:19 08/05 21:14 Order name: Procalcitonin; Complete Time: 00:19 08/05 21:14 Order name: PT-INR; Complete Time: 00:19 08/05 21:14 Order name: Ptt, Activated; Complete Time: 00:19 08/05 21:14 Order name: Strep; Complete Time: 00:19 08/05 21:14 Order name: Troponin (emerg Dept Use Only); Complete Time: 00:19 08/05 21:14 Order name: Urine Microscopic Only; Complete Time: 00:19 [facility] 08/05 21:15 Order name: Blood Culture [facility] 08/05 21:15 Order name: Basic Metabolic Panel; Complete Time: 00:19 [facility] 08/05 21:15 Order name: C-Reactive Protein; Complete Time: 00:19 [facility] 08/05 21:15 Order name: CBC with Automated Diff; Complete Time: 00: [facility] 08/05 21:15 Order name: D-Dimer; Complete Time: 00:19 [facility] 08/05 21:15 Order name: Ferritin; Complete Time: 00:19 [facility] 08/05 21:15 Order name: Lactate; Complete Time: 00: [facility] 08/05 21:15 Order name: Liver (Hepatic) Function; Complete Time: 00:19 [facility] 08/05 21:48 Order name: Urine Dipstick--Ancillary (enter results); Complete Time: 00:19 [facility] 08/05 21:48 Order name: Urine --Ancillary (enter results); Complete Time: 00:19 [facility] 08/05 22:22 Order name: Urine Culture [facility] 08/05 22:23 Order name: Throat Culture [facility] 08/05 21:14 Order name: CXR XRAY 08/05 21:14 Order name: EKG; Complete Time: 21:16 08/05 21:14 Order name: Cardiac monitoring; Complete Time: 21:41 08/05 21:14 Order name: Droplet/Contact Precautions; Complete Time: 21:25 [facility] 08/05 21:14 Order name: EKG - Nurse/Tech; Complete Time: 21:41 08/05 21:14 Order name: IV Start; Complete Time: 23:00 08/05 21:14 Order name: Labs collected and sent; Complete Time: 23:00 08/05 21:14 Order name: O2 Per Protocol; Complete Time: 21:25 08/05 21:14 Order name: O2 Sat Monitoring; Complete Time: 21:25 08/05 21:14 Order name: Urine Dipstick-Ancillary (obtain specimen); Complete Time: 23:04 08/05 22:31 Order name: COVID-19/FLU A+B; Complete Time: 00:19 [facility] 08/06 00:19 Order name: CT Chest For PE Angio tw4 08/06 00:55 Order name: CONS Physician Consult EDMS EC:15 Rate is 102 beats/min. Rhythm is regular. QRS Plummer is Normal. SC interval is normal. tw4 QRS interval is normal. QT interval is normal. No Q waves. T waves are Normal. No ST changes noted. Clinical impression: Sinus tachycardia. Interpreted by me. Reviewed by me. Administered Medications: 08/05 23:18 Drug: SOLU-Medrol 125 mg Route: IVP; Site: right forearm; vg1 23:56 Follow up: Response: No adverse reaction vg1 23:19 Drug: DuoNeb (3:1) (2.5 mg - 0.5 mg) 3 ml Route: Nebulizer; vg1 08/06 00:03 Follow up: Response: No adverse reaction vg1 00:17 Drug: DuoNeb (3:1) (2.5 mg - 0.5 mg) 3 ml Route: Nebulizer; bb 01:10 Follow up: Response: No adverse reaction; No change in condition bb 00:54 Drug: TORadol 30 mg Route: IVP; Site: right forearm; bb 01:15 Follow up: Response: No adverse reaction bb 01:14 Drug: Magnesium Sulfate 2 grams Route: IVPB; Infused Over: 30 mins; Site: right forearm;bb 01:40 Follow up: IV Status: Completed infusion; IV Intake: 100ml sf 02:00 Drug: Rocephin 1 grams Route: IV; Rate: calculated rate; Site: right antecubital; sf 02:05 Follow up: IV Status: Completed infusion; IV Intake: 10ml sf 03:20 Follow up: Response: No adverse reaction sf 02:05 Drug: Zithromax 500 mg Route: IVPB; Infused Over: 1 hrs; Site: right antecubital; sf 03:19 Follow up: IV Status: Completed infusion; IV Intake: 250ml sf Disposition: 08/06/20 00:22 Hospitalization ordered by Arnold Roman for Inpatient Admission. Preliminary diagnosis are Pneumonia, unspecified organism, Acute bronchospasm, Hypoxemia. - Bed requested for Telemetry/MedSurg (Inpatient). - Status is Inpatient Admission. aa5 - Condition is Stable. - Problem is new. - Symptoms have improved. Signatures: Dispatcher [employer] EDVA Brittani Pinto RN RN bb Nimo Pugh RN RN aa5 Francisco J Tan PA PA jr8 Aleyda Wilder RN RN Hiram Hyatt MD MD tw4 Josette Wilder RN RN vg1 Shadi Grady RN RN ll1 Norm Powell RN RN sf Corrections: (The following items were deleted from the chart) 08/05 21:27 21:14 [place] ordered. [facility] 21:30 21:15 Influenza Screen (A ordered. EDVA EDMS 21:31 21:16 CORONAVIRUS+MR.LAB.BRZ ordered. EDVA EDVA 08/06 00:25 00:22 Hospitalization Ordered by Clem De Leon DO for Inpatient Admission. Preliminary tw4 diagnosis is Pneumonia, unspecified organism; Acute bronchospasm; Hypoxemia. Bed requested for Telemetry/MedSurg (Inpatient). Status is Inpatient Admission. Condition is Stable. Problem is new. Symptoms have improved. 4 01:18 00:25 08/06/2020 00:22 Hospitalization Ordered by Arnold Roman MD for Inpatient cg Admission. Preliminary diagnosis is Pneumonia, unspecified organism; Acute bronchospasm; Hypoxemia. Bed requested for Telemetry/MedSurg (Inpatient). Status is Inpatient Admission. Condition is Stable. Problem is new. Symptoms have improved. 4 07:34 01:18 08/06/2020 00:22 Hospitalization Ordered by Arnold Roman MD for Inpatient cg Admission. Preliminary diagnosis is Pneumonia, unspecified organism; Acute bronchospasm; Hypoxemia. Bed [facility] ER HOLD. Status is Inpatient Admission. Condition is Stable. Problem is new. Symptoms have improved. 08:41 07:34 08/06/2020 00:22 Hospitalization Ordered by Arnold Roman MD for Inpatient aa5 Admission. Preliminary diagnosis is Pneumonia, unspecified organism; Acute bronchospasm; Hypoxemia. Bed requested for Telemetry/MedSurg (Inpatient). Status is Inpatient Admission. Condition is Stable. Problem is new. Symptoms have improved.
--- NOTE | 2020-08-06 00:23 | ER ---
Nurse's Notes [facility] Name: Jaye Pérez Age: 30 yrs Sex: Female : 1990 Arrival Date: 08/05/2020 Time: 20:58 Bed 24 Private MD: Diagnosis: Pneumonia, unspecified organism;Acute bronchospasm;Hypoxemia Presentation: 08/05 21:02 Chief complaint: Patient states: CP, cough, wheezing, SOB for 6 days. Low grade fever ll1 at home. Coronavirus screen: Client denies travel out of the [place] in the last 14 days. congestion, cough unrelated to allergies, difficulty breathing, shortness of breath, Client presents with at least one sign or symptom that may indicate coronavirus-19. Standard/surgical mask placed on the client. Ebola Screen: Patient denies travel to an Ebola-affected area in the 21 days before illness onset. Initial Sepsis Screen: Does the patient meet any 2 criteria? HR > 90 bpm. No. Patient's initial sepsis screen is negative. Does the patient have a suspected source of infection? Yes: Productive cough/pneumonia. Risk Assessment: Do you want to hurt yourself or someone else? Patient reports no desire to harm self or others. Onset of symptoms was July 31, 2020. 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 - Social history:: Smoking status: Patient reports the use of cigarette tobacco products, smokes one-half pack cigarettes per day. Screenin/23 22:32 Abuse screen: Denies threats or abuse. Nutritional screening: No deficits noted. vg1 Tuberculosis screening: No symptoms or risk factors identified. Fall Risk No fall in past 12 months (0 pts). No secondary diagnosis (0 pts). IV access (20 points). Ambulatory Aid- None/Bed Rest/Nurse Assist (0 pts). Gait- Normal/Bed Rest/Wheelchair (0 pts) Mental Status- Oriented to own ability (0 pts). Total Chase Fall Scale indicates No Risk (0-24 pts). Assessment: 21:30 General: Appears in no apparent distress. uncomfortable, Behavior is calm, cooperative. vg1 Pain: Complains of pain in back and chest Pain does not radiate. Pain currently is 8 out of 10 on a pain scale. Neuro: Level of Consciousness is awake, alert, obeys commands, Oriented to person, place, time, situation. Cardiovascular: Patient's skin is warm and dry. Respiratory: Reports shortness of breath cough that is pain with cough pain with respiration Airway is patent Respiratory effort is even, labored, Respiratory pattern is Breath sounds with wheezes bilaterally. GI: No signs and/or symptoms were reported involving the gastrointestinal system. : No signs and/or symptoms were reported regarding the genitourinary system. EENT: No signs and/or symptoms were reported regarding the EENT system. Derm: Skin is intact, is healthy with good turgor. Musculoskeletal: Circulation, motion, and sensation intact. 23:41 Reassessment: Patient appears in no apparent distress at this time. Patient and/or vg1 family updated on plan of care and expected duration. Pain level reassessed. Patient is alert, oriented x 3, equal unlabored respirations, skin warm/dry/pink. 08/06 00:17 Reassessment:. General: Appears uncomfortable, Behavior is calm, cooperative. Pain: bb Complains of pain in chest and back Pain currently is 9 out of 10 on a pain scale. Pain began 2-3 days ago. Neuro: Level of Consciousness is awake, alert, obeys commands, Oriented to person, place, time, situation. Respiratory: Airway is patent Respiratory effort is labored, Respiratory pattern is regular, Breath sounds with wheezes bilaterally. 00:56 Reassessment: pt to CT via stretcher with O2 accompanied by fuel testing technician. bb Vital Signs: 08/05 21:02 BP 143 / 77; Pulse 115; Resp 20; Temp 99.8; Pulse Ox 91% ; Weight 79.38 kg; Height 5 ll1 ft. 4 in. (162.56 cm); Pain 8/10; 22:29 BP 128 / 84; Pulse 105; Resp 20; Pulse Ox 96% 3 lpm ; vg1 23:00 BP 99 / 60; Pulse 100; Resp 24; Pulse Ox 96% on 3 lpm NC; vg1 23:30 BP 118 / 58; Pulse 105; Resp 18; Pulse Ox 97% on R/A; vg1 08/06 00:00 BP 123 / 78; Pulse 116; Resp 20; Pulse Ox 93% on 4 lpm NC; sf 00:34 BP 123 / 78; Pulse 122; Resp 24 S; Pulse Ox 96% on Nebulizer Mask; bb 02:00 BP 124 / 70; Pulse 118; Resp 20; Pulse Ox 94% ; sf 03:00 BP 114 / 70; Pulse 117; Resp 20; Pulse Ox 93% ; sf 08/05 21:02 Body Mass Index 30.04 (79.38 kg, 162.56 cm) [facility] ED Course: 08/05 20:58 Patient arrived in ED. am4 21:04 Triage completed. ll1 21:05 Arm band placed on. ll1 21:08 Hiram Hyatt MD is Attending Physician. tw4 21:18 Josette Wilder, RN is Primary Nurse. vg1 21:41 EKG done, by facility maintenance technician. vg1 21:42 COVID swab sent to lab. Flu and/or RSV swab sent to lab. Strep swab sent to lab. vg1 21:45 CXR XRAY In Process Unspecified. EDMS 21:53 Inserted saline lock: 20 gauge in right forearm, using aseptic technique. Blood 1 collected. 21:53 Initial lab(s) drawn, by ga, sent to lab. First set of blood cultures drawn by me. vg1 22:10 Second set of blood cultures drawn by me. vg1 22:33 Patient has correct armband on for positive identification. Bed in low position. Call vg1 light in reach. Side rails up X 1. 22:34 potline monitor on. Pulse ox on. NIBP on. vg1 22:34 Oxygen administration via nasal cannula \T\ 3L/min. vg1 08/06 00:22 Clem De Leon DO is Hospitalizing Provider. tw4 00:25 Hospitalizing Provider role handed off by Clem De Leon DO tw4 00:25 Arnold Roman MD is Hospitalizing Provider. tw4 01:17 CT Chest For PE Angio In Process Unspecified. EDMS 01:30 No provider procedures requiring assistance completed. Patient admitted, IV remains in sf place. Administered Medications: 08/05 23:18 Drug: SOLU-Medrol 125 mg Route: IVP; Site: right forearm; vg1 23:56 Follow up: Response: No adverse reaction vg1 23:19 Drug: DuoNeb (3:1) (2.5 mg - 0.5 mg) 3 ml Route: Nebulizer; vg1 08/06 00:03 Follow up: Response: No adverse reaction vg1 00:17 Drug: DuoNeb (3:1) (2.5 mg - 0.5 mg) 3 ml Route: Nebulizer; bb 01:10 Follow up: Response: No adverse reaction; No change in condition bb 00:54 Drug: TORadol 30 mg Route: IVP; Site: right forearm; bb 01:15 Follow up: Response: No adverse reaction bb 01:14 Drug: Magnesium Sulfate 2 grams Route: IVPB; Infused Over: 30 mins; Site: right forearm;bb 01:40 Follow up: IV Status: Completed infusion; IV Intake: 100ml sf 02:00 Drug: Rocephin 1 grams Route: IV; Rate: calculated rate; Site: right antecubital; sf 02:05 Follow up: IV Status: Completed infusion; IV Intake: 10ml sf 03:20 Follow up: Response: No adverse reaction sf 02:05 Drug: Zithromax 500 mg Route: IVPB; Infused Over: 1 hrs; Site: right antecubital; sf 03:19 Follow up: IV Status: Completed infusion; IV Intake: 250ml sf Intake: 01:40 IV: 100ml; Total: 100ml. sf 02:05 IV: 10ml; Total: 110ml. sf 03:19 IV: 250ml; Total: 360ml. sf Outcome: 00:22 Decision to Hospitalize by Provider. tw4 01:30 Admitted to ER Hold. Please see [facility] for further documentation. sf 01:30 Condition: stable 01:30 Instructed on the need for admit. 08:35 Admitted to Med/surg accompanied by tech, via wheelchair, with oxygen, with chart, aa5 Report called to MARCIA Demarco 08:41 Patient left the ED. aa5 Signatures: Dispatcher [employer] EDMS Brittani Pinto RN RN Nimo Pugh RN RN aa5 Hiram Hyatt MD MD 4 Josette Wilder RN RN vg1 Shadi Grady RN RN 1 Luanne Lara [facility] Norm Powell RN RN Corrections: (The following items were deleted from the chart) 08/05 22:33 22:10 Initial lab(s) drawn, by ga, sent to lab. First set of blood cultures drawn by vg1 , 1
[2020-08-06] MEDS ORDERED: IPRATROPIUM BROM 0.5MG/2.5ML ONE ×2 (00:25→05:16)
[2020-08-06] MEDS ORDERED: ALBUTEROL 2.5 MG/3 ML NEB SOL ONE ×2 (00:25→05:16)
[2020-08-06] MEDS ORDERED: KETOROLAC 30 MG/ML INJ ONE (01:03)
[2020-08-06] MEDS ORDERED: Magnesium Sulfate 2gm IVPB 2 G/50 ML BAG IV ONE (01:08)
[2020-08-06] MEDS ORDERED: CEFTRIAXONE/SWI 1gm 1 GM/10 ML SYR ONE (02:08)
[2020-08-06] MEDS ORDERED: AZITHROMYCIN 500 MG INJ IVPB ONE (02:08)
[2020-08-06] MEDS ORDERED: NA CHLORIDE 0.9% 250 ML ONE (02:08)
--- NOTE | 2020-08-06 02:37 | P.HP ---
Certification for Inpatient Patient admitted to: Inpatient With expected LOS: >2 Midnights Patient will require the following post-hospital care: None Practitioner: I am a practitioner with admitting privileges, knowledge of patient current condition, hospital course, and medical plan of care. Services: Services provided to patient in accordance with Admission requirements found in Title 42 Section 412.3 of the Code of Federal Regulations Patient History Date of Service: 08/06/20 Primary Care Provider: Diana Linton Reason for admission: Asthma Exacerbation with Hypoxia History of Present Illness: This is a 30-year-old female with a history of recent diagnosis of asthma. Currently under the care of a group fitness manager in the [facility] system. Patient presented to the emergency room tonight with acute worsening of shortness of breath that started about a week ago. Stated that she has started to have to utilize her rescue inhaler and daily nebulizers more frequently. Has become progressively worse tonight to the point where she needed emergency care. Patient was worked up in the emergency room and found to have sodium 139, potassium 3.5, chloride 107, bicarb 22, BUN of 7, 0.62 creatinine, glucose 92. White blood cell count was 19.3, hemoglobin 13.1, hematocrit 38.8, platelet 361. CRP elevated 130. Chest x-ray with atypical findings. CT PE protocol was ordered at that time as patient's D-dimer was also elevated. CT PE protocol showed no pulmonary embolism but did have multifocal ground-glass opacities that was new compared to prior studies. Patient was put on antibiotics and was given multiple rounds of breathing treatments and Solu-Medrol while in the emergency room. Even post treatment patient was still having shortness of breath with wheezing. Patient was on nasal cannula via 4 L per min still satting between 90-91% but was able to talk in full sentences. Original saturations prior to oxygen therapy was in the 80s and continued to dip down without oxygen supplementation. Medicine was consulted at that time for further evaluation and admission. Allergies ciprofloxacin [From Cipro] Adverse Reaction (Intermediate, Verified 12/24/17 11:41) Nausea/Vomiting Home medications list reviewed: Yes Home Medications: Esomeprazole Mag Trihydrate [Nexium] 40 mg PO BID 12/24/17 Ciprofloxacin HCl [Cipro 500 MG Tablet] 500 mg PO BID #14 tab 12/26/17 metroNIDAZOLE [Flagyl] 500 mg PO Q8H #21 tablet 12/26/17 - Past Medical/Surgical History Has patient received pneumonia vaccine in the past: No Diabetic: No -: peptic ulcers -: gerd -: tonsillectomy - Social History Smoking Status: Light Tobacco smoker (1-9 cigarettes/day) Counseled patient to stop smoking for: more than 10 minutes Smoking therapy provided: Yes Patient receptive to therapy: Yes Alcohol use: Yes CD- Drugs: No Caffeine use: Yes Place of Residence: Home Review of Systems General: Unremarkable Eyes: Unremarkable ENT: Unremarkable Respiratory: Cough, Shortness of Breath, SOB with Excertion Cardiovascular: Unremarkable Gastrointestinal: Unremarkable Genitourinary: Unremarkable Musculoskeletal: Back Pain Integumentary: Unremarkable Neurological: Unremarkable Lymphatics: Unremarkable Physical Examination - Vital Signs Temperature: 99.8 F Blood Pressure: 128/84 Pulse: 105 Respirations: 24 Pulse Ox (%): 91 (4 lpm) - Physical Exam General: Alert, In no apparent distress, Oriented x3 HEENT: PERRLA, Mucous membr. moist/pink, EOMI Neck: Supple, 2+ carotid pulse no bruit, JVD not distended Respiratory: Expiratory wheezes, Rhonchi/gurgles Cardiovascular: No edema, Normal pulses, Normal S1 S2, No gallops, No rubs, No murmurs, Irregular heart rate/rhythm (Sinus tachycardia) Capillary refill: <2 Seconds Gastrointestinal: Normal bowel sounds, Soft and benign, Non-distended, No ascites, No tenderness, No masses, No rebound, No guarding Musculoskeletal: No clubbing, No swelling, No contractures, No erythema, No tenderness, No warmth Integumentary: No rashes, No breakdown, No significant lesion, No tenderness/swelling, No erythema, No warmth, No cyanosis Neurological: Normal speech, Normal strength at 5/5 x4 extr, Normal tone, Sensation intact, Cranial nerves 3-12 intact, Normal affect Lymphatics: No axilla or inguinal lymphadenopathy - Studies Laboratory Data (last 24 hrs) 08/05/20 21:53: PT 13.0 H, INR 1.13, APTT 25.7 08/05/20 21:53: WBC 19.30 H, Hgb 13.1, Hct 38.8, Plt Count 361 08/05/20 21:53: Sodium 139, Potassium 3.5, BUN 7, Creatinine 0.62, Glucose 92, Total Bilirubin 0.4, AST 17, ALT 23, Alkaline Phosphatase 114, Lipase 68 L Microbiology Data (last 24 hrs): 08/05/20 21:38 Throat Group A Streptococcus Rapid Screen - Final Assessment and Plan - Problems (Diagnosis) (1) Asthma with exacerbation Current Visit: Yes Status: Acute Qualifiers: Asthma severity: moderate Asthma persistence: persistent Qualified Code(s): J45.41 - Moderate persistent asthma with (acute) exacerbation (2) Hypoxia Current Visit: Yes Status: Acute - Plan 1. Patient will be admitted to telemetry floor we will monitor are rate and vital signs including continuous pulse oximetry. 2. Patient will remain on nasal cannula and will have breathing treatments via DuoNeb every 4-6 hr as needed. Patient will continue on Solu-Medrol therapy 40 mg t.i.d. as well. 3. We will consult pulmonology for further evaluation and management since sigrid lee had moderate to severe persistent asthma tonight 4. Will continue to lightly hydrate patient 5. Check labs in the a.m. 6. We will continue antibiotic therapy as there is signs of atypical infection. Patient has not been on any current steroid therapy and had elevated white cell count with elevation in her CRP. Low-grade fever upon arrival with atypical CT findings. 7. DVT prophylaxis Discharge Plan: Home Plan to discharge in: 48 Hours - Advance Directives Does patient have a Living Will: No Does patient have a Durable POA for Healthcare: No - Code Status/Comfort Care Code Status Assessed: Yes Code Status: Full Code Critical Care: No Time Spent Managing Pts Care (In Minutes): 80
[2020-08-06] MEDS ORDERED: NA CHLORIDE 0.9% 1,000 ML IV SCH (04:49)
[2020-08-06] MEDS ORDERED: ACETAMINOPHEN 500 MG TAB PO ONE (04:53)
[2020-08-06] MEDS ORDERED: NA CHLORIDE 0.9% 500 ML IV ONE (04:53)
[2020-08-06] MEDS ORDERED: ALBUTEROL 2.5 MG/3 ML NEB SOL NEB ONE (04:55)
[2020-08-06] MEDS ORDERED: IPRATROPIUM BROM 0.5MG/2.5ML NEB ONE (04:55)
[2020-08-06] MEDS ORDERED: CEFTRIAXONE/SWI 1gm 1 GM/10 ML SYR IV SCH (05:00)
[2020-08-06] MEDS ORDERED: NA CHLORIDE 0.9% 1,000 ML ONE (05:16)
[2020-08-06] MEDS ORDERED: ACETAMINOPHEN 500 MG TAB ONE (05:17)
[2020-08-06] MEDS: METHYLPREDNISOLONE 40 MG INJ IV SCH ×3 (06:00→16:37)
[2020-08-06] MEDS ORDERED: METHYLPREDNISOLONE 40 MG INJ ONE (06:14)
--- NOTE | 2020-08-06 08:05 | RAD REPORT ---
EXAM DESCRIPTION: [place] Single View08/05/2020 9:45 pm CLINICAL HISTORY: Cough COMPARISON: 2019 FINDINGS: Mild bilateral pulmonary opacities. The heart is normal size IMPRESSION: Mild bilateral pulmonary opacities probably pneumonia
[2020-08-06] MEDS: ACETAMINOPHEN 500 MG TAB PO PRN ×2 (09:52→16:37)
[2020-08-06] MEDS ORDERED: INFLUENZA VACCINE (for 3y+) 0.5 ML DOSE IMVAC ONE (10:00)
--- NOTE | 2020-08-06 10:53 | RAD REPORT ---
EXAM DESCRIPTION: CT - Chest For Pe Angio - 08/06/2020 6:56 am CLINICAL HISTORY: SOB TECHNIQUE: Contiguous axial images obtained through the chest during angiographic phase following th e uneventful administration of IV contrast. Sagittal and coronal reformatted images were provided. CO P reformatted images were provided. This exam was performed according to our departmental dose-optimization program, which includes autom ated exposure control, adjustment of the mA and/or kV according to patient size and/or use of iterati ve reconstruction technique. COMPARISON: 01/16/2020 FINDINGS: Diagnostic quality: There is good opacification of the pulmonary arterial tree. Motion art ifact degrades image quality and limits evaluation of segmental and subsegmental vessels. Lungs: Multifocal groundglass opacities bilaterally, new from the prior. Airways are patent. Pleura: No effusion. No pneumothorax. Heart and pericardium: The heart is normal in size. No pericardial effusion. Mediastinum and monique: Soft tissue density in the anterior mediastinum thought to represent residual t hymic tissue. No pathologically enlarged lymph nodes. Lower neck and chest wall: Unremarkable Vessels: No pulmonary arterial filling defects. No thoracic aortic aneurysm. Upper abdomen: Unremarkable Bones: Mild multilevel osteophytic lipping. IMPRESSION: 1. Motion artifact degrades image quality and limits evaluation of segmental and subse gmental vessels. No central pulmonary embolic disease. 2. Multifocal infiltrates. Imaging features can be seen with viral pneumonia, though are nonspecifi c and can occur with a variety of infectious and noninfectious processes. PneInd Reference: https://p ubs.rsna.org/doi/full/[email or web address] 3. Other findings as above. Electronically signed by: Amandeep Higginbotham MD 08/06/2020 1:29 AM [facility] Due to temporary technical issues with the PACS/Fluency reporting system, reports are being signed by the in house radiologist without review as a courtesy to ensure prompt reporting. The interpreting r adiologist is fully responsible for the content of the report.
--- NOTE | 2020-08-06 11:17 | P.PN ---
Subjective Date of Service: 08/06/20 Chief Complaint: Asthma Exacerbation with Hypoxia Subjective: No new changes Patient reports she feels about the same this morning. She is still wheezing, coughing (productive cough with clear mucus), and has pleuritic chest pain. She also reports a headache. She says breathing treatments mildly improve her symptoms. She feels best when laying with head of bed elevated. Symptoms started a week ago and worsened over the weekend. Of note, 4 years ago she was hospitalized for pneumonia for 3 weeks and received the pneumonia vaccine. Prior to that she had been hospitalized for pneumonia twice before. In June, she was admitted for recurrent bronchitis. She was diagnosed with allergic asthma <1 yr ago and has been seeing Dr. Plunkett at [facility]. At home she uses a steroid and albuterol inhaler and also has breathing treatments at home with occasional relief. Review of Systems General: Sweats, Malaise Eyes: Unremarkable ENT: Unremarkable Respiratory: Cough, Shortness of Breath, SOB with Excertion, Pleuritic Pain, Sputum, Wheezing Cardiovascular: Unremarkable Gastrointestinal: Unremarkable Genitourinary: Unremarkable Musculoskeletal: Unremarkable Integumentary: Unremarkable Neurological: Unremarkable Lymphatics: Unremarkable Physical Examination - Vital Signs Temperature: 98.0 F Blood Pressure: 118/74 Pulse: 106 Respirations: 19 Pulse Ox (%): 93 - Physical Exam General: Alert, Oriented x3, Cooperative, Mild distress HEENT: Atraumatic, Normocephalic, PERRLA, Mucous membr. moist/pink, EOMI Neck: Supple, 2+ carotid pulse no bruit, JVD not distended, No Thyromegaly, No LAD Respiratory: Expiratory wheezes, Rhonchi/gurgles Cardiovascular: No edema, Normal pulses, Regular rate/rhythm, Normal S1 S2, No gallops, No rubs, No murmurs Capillary refill: <2 Seconds Gastrointestinal: Normal bowel sounds, Soft and benign, Non-distended, No ascites, No tenderness, No masses, No rebound, No guarding Musculoskeletal: No clubbing, No swelling, No contractures, No erythema, No tenderness, No warmth Integumentary: No rashes, No breakdown, No significant lesion, No tenderness/swelling, No erythema, No warmth, No cyanosis Neurological: Normal gait, Normal speech, Normal strength at 5/5 x4 extr, Normal tone, Sensation intact, Cranial nerves 3-12 intact, Normal affect Lymphatics: No axilla or inguinal lymphadenopathy - Studies Laboratory Data (last 24 hrs) 08/05/20 21:53: PT 13.0 H, INR 1.13, APTT 25.7 08/05/20 21:53: WBC 19.30 H, Hgb 13.1, Hct 38.8, Plt Count 361 08/05/20 21:53: Sodium 139, Potassium 3.5, BUN 7, Creatinine 0.62, Glucose 92, Total Bilirubin 0.4, AST 17, ALT 23, Alkaline Phosphatase 114, Lipase 68 L Microbiology Data (last 24 hrs): 08/05/20 21:38 Throat Group A Streptococcus Rapid Screen - Final Assessment & Plan - Plan #asthma exacerbation: telemetry and continuous pulse oximetry. On duonebs PRN q 4-6hr. Pulm consulted. #recurrent pneumonia requiring hospitalization: continue antibiotics. sputum and blood cultures pending. pulm consulted. Discharge Plan: Home Plan to discharge in: 24 Hours - Advance Directives Does patient have a Living Will: No Does patient have a Durable POA for Healthcare: No - Code Status/Comfort Care Code Status Assessed: Yes Code Status: Full Code Critical Care: No Time Spent Managing PTS Care (In Minutes): 55
[2020-08-06] MEDS: IPRATROPIUM BROM 0.5MG/2.5ML NEB PRN ×3 (11:25→23:00)
[2020-08-06] MEDS: ALBUTEROL 2.5 MG/3 ML NEB SOL NEB PRN ×3 (11:25→23:00)
[2020-08-06] MEDS: CEFTRIAXONE/SWI 1gm 1 GM/10 ML SYR IV SCH (12:12)
[2020-08-06] MEDS ORDERED: CEFTRIAXONE 1 GM/NS 50 ML 1 GM/50 ML BAG IV SCH (13:00)
[2020-08-06] MEDS: MORPHINE 2 MG/ML SYR IV PRN ×2 (13:17→19:49)
[2020-08-06] MEDS: ENOXAPARIN 40 MG/0.4 ML SQ SCH (16:37)
[2020-08-06] MEDS ORDERED: AZITHROMYCIN IV 250 MG in NA CHLORIDE 0.9% 250 ML IVPB SCH (21:00)
[2020-08-06] MEDS: ONDANSETRON 4 MG/2 ML VIAL IV PRN (22:33)
[2020-08-07] MEDS: METHYLPREDNISOLONE 40 MG INJ IV SCH ×2 (00:01→09:53)
[2020-08-07] MEDS: CEFTRIAXONE/SWI 1gm 1 GM/10 ML SYR IV SCH ×2 (00:06→11:48)
[2020-08-07] MEDS: ALBUTEROL 2.5 MG/3 ML NEB SOL NEB PRN (03:00)
[2020-08-07] MEDS: IPRATROPIUM BROM 0.5MG/2.5ML NEB PRN (03:00)
[2020-08-07] MEDS: MORPHINE 2 MG/ML SYR IV PRN ×3 (03:05→21:37)
[2020-08-07] MEDS: ACETAMINOPHEN 500 MG TAB PO PRN (03:09)
[2020-08-07 04:51] LABS: Basophils % 0.5 % (0-1.3); Hematocrit 35.3 % (36.0-45.0); Lymphocytes % 2.9 % (15.3-44.8); RBC Red Blood Cell Count 4.07 M/uL (3.86-4.86)
[2020-08-07 04:52] LABS: BUN Blood Urea Nitrogen 14 mg/dL (7-18); Bicarbonate 25 mmol/L (21-32); Glucose Level 158 mg/dL (74-106); Potassium 4.2 mmol/L (3.5-5.1); Sodium Level 138 mmol/L (136-145)
[2020-08-07 05:31] LABS: Blood Morphology Comment NOTED (NOT SEEN); Ovalocytes 1+; Platelet Estimate ADEQ
--- NOTE | 2020-08-07 05:39 | EKG ---
Test Date: 2020-08-05 Test Time: 21:36:52 Dental Specialist: EFFIE MEASUREMENT RESULTS: Intervals: Rate: 102 RI: 134 QRSD: 80 QT: 340 QTc: 443 [place]: P: 69 RI: 134 QRS: 77 T: 49 INTERPRETIVE STATEMENTS: Sinus tachycardia Otherwise normal ECG Compared to ECG 01/16/2020 20:08:58 Sinus rhythm no longer present Sinus arrhythmia no longer present Electronically Signed On 08-07-20 05:35:51 [employer]PORT [employer] SCREENER by Tommy Duarte
--- NOTE | 2020-08-07 07:24 | RAD REPORT ---
EXAM DESCRIPTION: RAD - Chest Single View - 08/07/2020 6:50 am CLINICAL HISTORY: pneumonia COMPARISON: Portable chest August 05, CT chest August 06 TECHNIQUE: AP portable chest image was obtained 08/07/2020 6:50 am . FINDINGS: Lung volumes are significantly reduced compared to the prior study. Bilateral lung base op acification remains. No failure or volume overload. No progressive finding in the upper lung ribeiro. Heart and vasculature are normal. No measurable pleural effusion and no pneumothorax. No acute bony abnormality seen. No acute aortic findings suspected. IMPRESSION: Low lung volume examination with bilateral lung base opacification from pneumonia, atele ctasis or a combination. Lung base findings are not significantly different from comparison.
[2020-08-07] MEDS: ALBUTEROL 2.5 MG/3 ML NEB SOL NEB SCH ×4 (07:35→20:10)
[2020-08-07] MEDS: IPRATROPIUM BROM 0.5MG/2.5ML NEB SCH ×4 (07:35→20:10)
[2020-08-07] MEDS ORDERED: HOME MED 1 EA UNK (Esomeprazole Mag Trihydrate [Nexium] 40 MG Capsule.Dr) PO SCH (09:00)
[2020-08-07] MEDS ORDERED: AZITHROMYCIN 250 MG TAB PO SCH (09:00)
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
[2020-08-07] MEDS: PANTOPRAZOLE 40MG TABLET PO SCH ×2 (09:53→21:37)
[2020-08-07] MEDS: ONDANSETRON 4 MG/2 ML VIAL IV PRN (11:48)
--- NOTE | 2020-08-07 13:11 | P.CNS ---
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 Allergies ciprofloxacin [From Cipro] Adverse Reaction (Intermediate, Verified 12/24/17 11:41) Nausea/Vomiting Home Medications: Esomeprazole Mag Trihydrate [Nexium] 40 mg PO BID 12/24/17 Albuterol Inhaler [Ventolin Inhaler*] 2 puff IN [id number] PRN 08/06/20 Albuterol Sulfate [Albuterol Sulfate 0.083% Neb Soln] 1 amp IN TID PRN 08/06/20 Fexofenadine HCl [Aimee Allergy] 180 mg PO DAILY 08/06/20 Multivitamin 1 tab PO DAILY 08/06/20 - Past Medical/Surgical History Diabetic: No -: peptic ulcers -: gerd -: Asthma -: tonsillectomy - Social History Smoking Status: Current every day smoker Alcohol use: Yes CD- Drugs: No Caffeine use: Yes Place of Residence: Home Review of Systems 10-point ROS is otherwise unremarkable General: Weakness Respiratory: Shortness of Breath Physical Examination Temp Pulse Resp BP Pulse Ox 98.0 F 106 H 19 113/51 L 89 L 08/07/20 12:00 08/07/20 12:00 08/07/20 12:00 08/07/20 12:00 08/07/20 12:00 General: Alert, In no apparent distress, Oriented x3 Respiratory: Clear to auscultation bilaterally, Friction rub Cardiovascular: Regular rate/rhythm Gastrointestinal: Normal bowel sounds, Soft and benign - Problems (1) Asthma with exacerbation Current Visit: Yes Status: Acute Plan: Patient is 30 years of age with a history of asthma active smoker admitted with worsening dyspnea she is bilateral ground-glass changes very highly suggestive of for franks virus infection although she denies any active symptoms white count as increase significantly I suspect is from the steroid change to p.o. prednisone pro calcitonin levels consistently negative patient does as a borderline fever of 99 change to p.o. 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
[2020-08-07] MEDS: levoFLOXacin 500 MG TAB PO SCH (13:55)
[2020-08-07 15:50] LABS: Blood O2 Saturation 92.5 % (92-98.5)
[2020-08-07 15:51] LABS: Arterial Blood Carboxyhemoglob 0.9 % (0-1.5); Blood Gas Oxyhemoglobin 90.7 % (94-97)
[2020-08-07] MEDS: ALPRAZOLAM 0.5 MG TABLET PO PRN (17:15)
[2020-08-07] MEDS: ENOXAPARIN 40 MG/0.4 ML SQ SCH (17:15)
[2020-08-07] MEDS: predniSONE 20 MG TAB PO SCH (21:36)
[2020-08-08] MEDS: ALBUTEROL 2.5 MG/3 ML NEB SOL NEB SCH ×4 (02:30→20:15)
[2020-08-08] MEDS: IPRATROPIUM BROM 0.5MG/2.5ML NEB SCH ×4 (02:30→20:15)
[2020-08-08] MEDS: ALPRAZOLAM 0.5 MG TABLET PO PRN (03:28)
[2020-08-08 06:44] LABS: Absolute Lymphocytes (CBC) 2.4 K/uL (0.7-4.9); Basophils % 0.2 % (0-1.3); Hematocrit 35.8 % (36.0-45.0); Lymphocytes % 8.5 % (15.3-44.8); MPV 8.8 fL (7.6-11.3); RBC Red Blood Cell Count 4.14 M/uL (3.86-4.86)
[2020-08-08 07:07] LABS: ALT/SGPT 21 U/L (12-78); AST/SGOT 14 U/L (15-37); Albumin 3.4 g/dL (3.4-5.0); Alkaline Phosphatase 101 U/L (45-117); BUN Blood Urea Nitrogen 15 mg/dL (7-18); Bicarbonate 28 mmol/L (21-32); Bilirubin Total 0.2 mg/dL (0.2-1.0); Ferritin 22.1 ng/mL (8-388); Glucose Level 106 mg/dL (74-106); Magnesium 2.3 mg/dL (1.8-2.4); NT PRO-BNP 62 pg/mL (<125); Potassium 4.1 mmol/L (3.5-5.1); Protein, Total 7.4 g/dL (6.4-8.2); Sodium Level 138 mmol/L (136-145)
--- NOTE | 2020-08-08 09:00 | RAD REPORT ---
EXAM DESCRIPTION: RAD - Chest Single View - 08/08/2020 8:53 am CLINICAL HISTORY: pneumonia COMPARISON: Portable August 07, CT chest August 06 TECHNIQUE: AP portable chest image was obtained 08/08/2020 8:53 am . FINDINGS: Patchy airspace opacification is present in both lung bases in both upper lobes. Pattern i s stable from the prior day study. Heart and vasculature are normal. No measurable pleural effusion and no pneumothorax. No acute bony abnormality seen. No acute aortic findings suspected. IMPRESSION: Scattered small bilateral pneumonia findings stable from August 07.
[2020-08-08] MEDS: PANTOPRAZOLE 40MG TABLET PO SCH ×2 (09:41→21:45)
[2020-08-08] MEDS: MORPHINE 2 MG/ML SYR IV PRN ×2 (09:41→21:45)
[2020-08-08] MEDS: predniSONE 20 MG TAB PO SCH ×2 (09:41→21:50)
[2020-08-08] MEDS: levoFLOXacin 500 MG TAB PO SCH (09:41)
--- NOTE | 2020-08-08 11:14 | P.PN ---
Subjective Date of Service: 08/08/20 Primary Care Provider: Diana Linton Chief Complaint: Asthma Exacerbation with Hypoxia Subjective: Improving Patient appears better than yesterday, speaking in more complete sentences. continues to be nauseous and have coughing its. working on weaning down O2 yesterday. felt comfortable on 2L for a few hours but back up to 94% on 4L at bedside. reports she feels more uncomfortable at night. Review of Systems General: As per HPI Eyes: Unremarkable ENT: Unremarkable Respiratory: Cough, Shortness of Breath, SOB with Excertion, Pleuritic Pain, Sputum, Wheezing, As per HPI Cardiovascular: Unremarkable Gastrointestinal: Unremarkable Genitourinary: Unremarkable Musculoskeletal: Unremarkable Integumentary: Unremarkable Neurological: Unremarkable Lymphatics: Unremarkable Physical Examination - Vital Signs Temperature: 98.1 F Blood Pressure: 124/64 Pulse: 95 Respirations: 24 Pulse Ox (%): 94 - Physical Exam General: Alert, In no apparent distress, Oriented x3, Cooperative HEENT: Atraumatic, Normocephalic, PERRLA, Mucous membr. moist/pink, EOMI, Sclerae nonicteric Neck: Supple, 2+ carotid pulse no bruit, JVD not distended, No Thyromegaly, No LAD Respiratory: Expiratory wheezes, Rhonchi/gurgles Cardiovascular: No edema, Normal pulses, Regular rate/rhythm, Normal S1 S2, No gallops, No rubs, No murmurs Capillary refill: <2 Seconds Gastrointestinal: Normal bowel sounds, Soft and benign, Non-distended, No ascites, No tenderness, No masses, No rebound, No guarding Musculoskeletal: No clubbing, No swelling, No contractures, No erythema, No tenderness, No warmth Integumentary: No rashes, No breakdown, No significant lesion, No tenderness/swelling, No erythema, No warmth, No cyanosis Neurological: Normal gait, Normal speech, Normal strength at 5/5 x4 extr, Normal tone, Sensation intact, Cranial nerves 3-12 intact, Normal affect Lymphatics: No axilla or inguinal lymphadenopathy - Studies Microbiology Data (last 24 hrs): 08/05/20 21:38 Throat Culture & Sensitivity - Final NORMAL UPPER RESPIRATORY KAILEE GROWN. 08/05/20 21:40 Clean Catch Urine Belva Count - Final BETWEEN 10,000 & 100,000 CFU/ML 08/05/20 21:40 Clean Catch Urine - Final MIXED KAILEE. Assessment And Plan - Plan #asthma exacerbation: telemetry and continuous pulse oximetry. DuoNebs to q4hr RAVEN. patient on 94% O2 Sat on 4L. will work on weaning oxygen today. #recurrent pneumonia requiring hospitalization: switched patient to Levaquin and prednisone per pulm recommendations. ABGs ordered showing mild primary respiratory alkalosis with appropriately compensated metabolic acidosis. sputum culture: gram + cocci in pairs/chains and gram - rods. retested patient for covid, awaiting results. Blood cultures negative for 24 hours. waiting on results for IgE levels and alpha 1 antitrypsin levels. patient is active smoker. follow up CXR shows no changes. #GERD: restarted home medications. Discharge Plan: Home Plan to discharge in: 48 Hours - Code Status/Comfort Care Code Status Assessed: Yes (full code) Critical Care: No Time Spent Managing PTS Care (In Minutes): 55
[2020-08-08] MEDS: ENOXAPARIN 40 MG/0.4 ML SQ SCH (17:19)
[2020-08-08] MEDS: BENZONATATE 100 MG CAP PO PRN (17:19)
[2020-08-08] MEDS: ACETAMINOPHEN 500 MG TAB PO PRN (18:42)
[2020-08-09] MEDS: ALBUTEROL 2.5 MG/3 ML NEB SOL NEB SCH ×3 (01:55→14:31)
[2020-08-09] MEDS: IPRATROPIUM BROM 0.5MG/2.5ML NEB SCH ×3 (01:55→14:31)
[2020-08-09] MEDS ORDERED: NA CHLORIDE 0.9% 250 ML IV ONE (09:46)
--- NOTE | 2020-08-09 09:55 | P.DS ---
Admission Date: 08/06/20 Discharge Date: 08/09/20 Primary Care Provider: Diana Linton Disposition: ROUTINE DISCHARGE Discharge Condition: GOOD Reason for Admission: Asthma Exacerbation with Hypoxia Consultations: pulm - Problems (1) Pneumonia Current Visit: Yes Status: Acute Qualifiers: Pneumonia type: due to unspecified organism Laterality: bilateral Lung location: lower lobe of lung Qualified Code(s): J18.9 - Pneumonia, unspecified organism (2) Asthma with exacerbation Current Visit: Yes Status: Acute Qualifiers: Asthma severity: moderate Asthma persistence: persistent Qualified Code(s): J45.41 - Moderate persistent asthma with (acute) exacerbation (3) Hypoxia Current Visit: Yes Status: Acute (4) GERD (gastroesophageal reflux disease) Current Visit: Yes Status: Chronic Qualifiers: Esophagitis presence: esophagitis presence not specified Qualified Code(s): K21.9 - Gastro-esophageal reflux disease without esophagitis Brief History of Present Illness: 30-year-old female with a history of asthma and recurrent hospitalizations for pneumonia and acute bronchitis presents to the ED with acute worsening of shortness of breath that started about a week ago. Stated that she has started to have to utilize her rescue inhaler and daily nebulizers more frequently. White blood cell count was 19.3. CRP elevated 130. Chest x-ray with bilateral pneumonia findings. CT PE protocol showed no pulmonary embolism but did have multifocal ground-glass opacities that was new compared to prior studies. Patient was put on antibiotics and was given multiple rounds of breathing treatments and Solu-Medrol while in the emergency room. Even post treatment patient was still having shortness of breath with wheezing. Patient was on nasal cannula via 4 L per min still satting between 90-91% but was able to talk in full sentences. Original saturations prior to oxygen therapy was in the 80s and continued to dip down without oxygen supplementation. Medicine was consulted at that time for further evaluation and admission. Hospital Course: Patient was admitted to the floor and remained on nasal canula with breathing treatments via DuoNebs every 4-6 hours. Pulmonlogy was consulted. Steroid therapy was changed from SoluMedrol to prednisone. Antibiotic therapy was changed from ceftriaxone and azithromycin to levofloxacin. Will continue levaquin and prednisone outpatient. Patient now on 2L of O2 and has home oxygen arranged for discharge. sputum culture showed gram + cocci in pairs/chains and gram - rods. retested patient for covid, awaiting results. Blood cultures negative for 24 hours. waiting on results for IgE levels and alpha 1 antitrypsin levels. follow up CXR was not worse than previous imaging. patient will followup with outpatient seo team lead at [facility]. Vital Signs/Physical Exam: Temp Pulse Resp BP Pulse Ox 98.0 F 86 20 114/58 L 91 08/09/20 08:00 08/09/20 08:00 08/09/20 08:00 08/09/20 08:00 08/09/20 08:00 General: Alert, In no apparent distress, Oriented x3 HEENT: Atraumatic, Normocephalic, PERRLA, Mucous membr. moist/pink, EOMI, Sclerae nonicteric Neck: Supple, 2+ carotid pulse no bruit, JVD not distended, No Thyromegaly, No LAD Respiratory: Normal air movement, Expiratory wheezes Cardiovascular: No edema, Normal pulses, Regular rate/rhythm, Normal S1 S2, No gallops, No rubs, No murmurs Capillary refill: <2 Seconds Gastrointestinal: Normal bowel sounds, Soft and benign, Non-distended, No ascites, No tenderness, No masses, No rebound, No guarding Musculoskeletal: No clubbing, No swelling, No contractures, No erythema, No tenderness, No warmth Integumentary: No rashes, No breakdown, No significant lesion, No tenderness/swelling, No erythema, No warmth, No cyanosis Neurological: Normal gait, Normal speech, Normal strength at 5/5 x4 extr, Normal tone, Sensation intact, Cranial nerves 3-12 intact, Normal affect Lymphatics: No axilla or inguinal lymphadenopathy Laboratory Data at Discharge: WBC 27.80 K/uL (4.3-10.9) H* D 08/08/20 06:13 Hgb 11.6 g/dL (12.0-15.0) L 08/08/20 06:13 Hct 35.8 % (36.0-45.0) L 08/08/20 06:13 Plt Count 381 K/uL (152-406) 08/08/20 06:13 PT 13.0 SECONDS (9.5-12.5) H 08/05/20 21:53 INR 1.13 08/05/20 21:53 APTT 25.7 SECONDS (24.3-36.9) 08/05/20 21:53 Sodium 138 mmol/L (136-145) 08/08/20 06:13 Potassium 4.1 mmol/L (3.5-5.1) 08/08/20 06:13 BUN 15 mg/dL (7-18) 08/08/20 06:13 Creatinine 0.63 mg/dL (0.55-1.3) 08/08/20 06:13 Glucose 106 mg/dL (74-106) 08/08/20 06:13 Phosphorus 4.0 mg/dL (2.5-4.9) 08/08/20 06:13 Magnesium 2.3 mg/dL (1.8-2.4) 08/08/20 06:13 Total Bilirubin 0.2 mg/dL (0.2-1.0) 08/08/20 06:13 AST 14 U/L (15-37) L 08/08/20 06:13 ALT 21 U/L (12-78) 08/08/20 06:13 Alkaline Phosphatase 101 U/L (45-117) 08/08/20 06:13 Lipase 68 U/L (73-393) L 08/05/20 21:53 Home Medications: Esomeprazole Mag Trihydrate [Nexium] 40 mg PO BID 12/24/17 Albuterol Inhaler [Ventolin Inhaler*] 2 puff IN [id number] PRN 08/06/20 Albuterol Sulfate [Albuterol Sulfate 0.083% Neb Soln] 1 amp IN TID PRN 08/06/20 Fexofenadine HCl [Aimee Allergy] 180 mg PO DAILY 08/06/20 Multivitamin 1 tab PO DAILY 08/06/20 Benzonatate [Tessalon Perle*] 100 mg PO TID PRN 10 Days #30 cap 08/09/20 levoFLOXacin [Levaquin*] 500 mg PO DAILY #8 tab 08/09/20 predniSONE [Prednisone*] 20 mg PO BID #18 tab 08/09/20 New Medications: levoFLOXacin [Levaquin*] 500 mg PO DAILY #8 tab predniSONE [Prednisone*] 20 mg PO BID #18 tab Benzonatate [Tessalon Perle*] 100 mg PO TID PRN 10 Days #30 cap PRN Reason: Cough Physician Discharge Instructions: continue taking levofloxacin for 8 days continue taking prednisone as prescribed please followup with seo team lead at [facility] for further monitoring of O2 sats and ICS inhaler. Diet: Regular Followup: Diana Linton MD [Primary Care Provider] - Time spent managing pt's care (in minutes): 70
[2020-08-09] MEDS: ALPRAZOLAM 0.5 MG TABLET PO PRN (10:07)
[2020-08-09] MEDS: levoFLOXacin 500 MG TAB PO SCH (10:07)
[2020-08-09] MEDS: PANTOPRAZOLE 40MG TABLET PO SCH (10:07)
[2020-08-09] MEDS: predniSONE 20 MG TAB PO SCH (10:08)
[2020-08-09] MEDS: BENZONATATE 100 MG CAP PO PRN (10:18)
[2020-08-09 10:55] LABS: Absolute Lymphocytes (CBC) 4.2 K/uL (0.7-4.9); Basophils % 0.5 % (0-1.3); Hematocrit 38.1 % (36.0-45.0); Lymphocytes % 18.9 % (15.3-44.8); MPV 8.6 fL (7.6-11.3); RBC Red Blood Cell Count 4.43 M/uL (3.86-4.86)
[2020-08-09 15:20] VITALS: O2SAT 94
[2020-08-09 16:19] VITALS: BP 128/58; TEMP 99.5
== END 2020-08-09 17:35 | disposition home or self-care (01) | DRG 202 ==
LOC: ER 20:47 → ERHOLD 08-06 00:53 → 2ND 08-06 08:32
PROVIDERS: ADMIT Hospitalist; ATTEND Hospitalist
DX: J45.41 Moderate persistent asthma with (acute) exacerbation (principal); J18.9 Pneumonia, unspecified organism; K21.9 Gastro-esophageal reflux disease without esophagitis; F17.210 Nicotine dependence, cigarettes, uncomplicated; Z88.1 Allergy status to other antibiotic agents; Z79.899 Other long term (current) drug therapy; Z79.52 Long term (current) use of systemic steroids; Z20.822 Contact with and (suspected) exposure to COVID-19
CPT/HCPCS: 0240U; 36415; 71045; 71275; 80048; 80053; 80076; 81003; 81015; 81025; 82103; 82728; 82785; 82805; 83605; 83690; 83735; 83880; 84100; 84145; 84439; 84443; 84484; 85025; 85379; 85610; 85730; 86140; 87040; 87070; 87081; 87086; 87088; 87205; 93005; 94010; 94640; 94760; 99285; J0456; J0696; J1650; J2270; J2405; J2920; J2930; J3475; J7030; J7050; J7512; Q9967; U0002

== ENCOUNTER 2020-12-09 13:09 | Emergency (ER) | payer SELFPAY ==
--- OUTSIDE RECORDS SUMMARY | 2020-12-09 13:27 | XMS REPORT | Continuity of Care Document ---
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 [place] ulcer ulcer 07-12 [facility] disease disease 00:00: st 00 Anxiety Anxiety Disease Active 2016-06 [place] 07-12 [facility] 00:00: st 00 Iron Iron Disease Active 2016-06 [place] deficiency deficiency 07-12 Me thodi anemia anemia 00:00: st 00 Dehydratio Dehydratio Disease Active 2016-06 H hilaria n n 1-24 Methodi 00:00: st 00 Tachycardi Tachycardi Disease Active 2016-06 H hilaria a a - Methodi 00:00: st 00 INTRACTABL Diagnosis Active 2015-062016-04-20 Memoria E VOMITING 16:37:00 l 00:00: [place] INTRACTABL 00 E VOMITING Active 04/08/2016 [facility] [place] ABDOMINAL Diagnosis Active 2015-062016-04-08 Memoria PAIN 0 15:58:00 l 00:00: Eb ABDOMINAL 00 PAIN Active 04/08/2016 [facility] [place] VOMITING Diagnosis Active 2015-12-21 M emoria 12-20 19:15:00 l VOMITING 00:00: Garry n 00 Active 12/21/2015 [facility] INTRATABLE Diagnosis Active 2016-01-15 Memoria ABD 12-20 12:01:00 l PAIN,VOMIT 00:00: Garry n ING,DEHYDR INTRATABLE 00 ATION ABD PAIN,VOMIT ING,DEHYDR ATION Active 12/21/2015 [facility] [place] VOMITING/S Diagnosis Active 2016-01-12 Memoria TOMACH 12-19 09:13:00 l PAIN 00:00: Eb VOMITING/S 00 TOMACH PAIN Active 12/20/2015 [facility] Gastric Problem Active 2016-04-14 Kehinde batsheva ulcer 00:11:43 l (disorder) Gastric Her pelaez ulcer (disorder) Active Problem 04/14/2016 [facility] CYCLICAL Diagnosis Active 2016-04-20 M emoria VOMITING, 16:37:00 l INTRACTABL CYCLICAL He rmann E VOMITING, INTRACTABL E Active [facility] History of Past Illness Condition Condition Condition Status Onset Resolution Last Treating Co mments Source Name Details Category Date Date Treatment Clinician Date Discharge Problem 2015-062016-04-14 2016-04-14 Memoria Diagnosis: 0 00:11:43 00:11:43 l Abdominal 05:00: Eb pain, Discharge 00 acute, Diagnosis: epigastric Abdominal pain, acute, epigastric 04/08/2016 04/14/2016 [facility] Discharge Problem 2015-12-24 2015-12-24 Memoria Diagnosis: 12-19 00:19:47 00:19:47 l Leukocytos 05:00: Garry n is Discharge 00 Diagnosis: Leukocytos is 12/20/2015 12/24/2015 [facility] Discharge Problem 2015-12-24 2015-12-24 Memoria Diagnosis: 12-19 00:19:47 00:19:47 l Abdominal 05:00: Eb pain Discharge 00 Diagnosis: Abdominal pain 12/20/2015 12/24/2015 [facility] Allergies, Adverse Reactions, Alerts Allergy Allergy Status Severity Reaction(s) Onset Inactive Treating Comm ents Source Name Type Date Date Clinician Bina Dennis Active GI 2016-06 Nausea & [place] xacin ty to Intolerance 07-04 Vomiting Met hodi adverse 00:00: st reaction 00 s to drug Social History Social Habit Start Date Stop Date Quantity Comments Source Social History 2016-04-08 2016-04-08 [facility] ermann 22:45:24 22:45:24 Sex Ass[birth year] At [birth year] [facility] ethodist 00:00:00 00:00:00 Medications Ordered Filled Start Stop Current Ordering [...] 12 1200 mL, 0 [Carafate] Refill(s), Pharmacy: [facility] Sucralfate 2015-06 Yes 1 gm = 10 Me moria 100 MG/ML 0-30 mL, PO, l Oral 16:50: QID, # Eb Suspension 12 1200 mL, 0 [Carafate] Refill(s), Pharmacy: [facility] 462 dicyclomine 2015-06 Yes 20 mg = 1 M emoria 20 mg oral 0-30 tab, PO, l tablet 16:50: QID, # 56 Garry n 00 tab, 1 Refill(s), Pharmacy: [facility] gabapentin 2015-06 Yes 300 mg = 1 M emoria 300 MG Oral 0-30 cap, PO, l Capsule 16:50: TID, # 30 Verna nn [Neurontin] 00 cap, 1 Refill(s), Pharmacy: [facility] dicyclomine 2015-06 Yes 20 mg = 1 M emoria 20 mg oral 0-30 tab, PO, l tablet 16:50: QID, # 56 Garry n 00 tab, 1 Refill(s), Pharmacy: [facility] gabapentin 2015-06 Yes 300 mg = 1 M emoria 300 MG Oral 0-30 cap, PO, l Capsule 16:50: TID, # 30 Verna nn [Neurontin] 00 cap, 1 Refill(s), Pharmacy: [facility] Protonix 2015-06 No Notes: For Mem oria [...] 0-29 (Same as: l 02:00: Bentyl) Eb 00 Sucralfate 2015-06 No Notes: Memor ia 100 MG/ML 0-29 Enteral l Oral 02:00: feeds may [place] Suspension 00 interfere [Carafate] with the absorption of this medication . Shake well. Take 1 hr before or 2 hrs after antacids, dairy pdt, minerals & meals. (Same As: Carafate) Bentyl 2015-06 No Notes: Memoria 0-29 (Same as: l 02:00: Bentyl) Eb 00 Sucralfate 2015-06 No Notes: Memor ia 100 MG/ML 0-29 Enteral l Oral 02:00: feeds may [place] Suspension 00 interfere [Carafate] with the absorption of this medication . Shake well. Take 1 hr before or 2 hrs after antacids, dairy pdt, minerals & meals. (Same As: Carafate) Reglan 2015-06 No Notes: Memoria 0-28 (Same as: l 23:00: Reglan) [place] 00 Reglan 2015-06 No Notes: Memoria 0-28 (Same as: l 23:00: Reglan) [place] 00 Acetaminoph 2015-06 No Notes: Do M emoria en 0-28 not exceed l 22:41: 4 gm/day. Eb 00 (Same as: Tylenol) Acetaminoph 2015-06 No Notes: Do M emoria en 0-28 not exceed l 22:41: 4 gm/day. Eb 00 (Same as: Tylenol) pantoprazol 2015-06 No Notes: Kehinde batsheva e 0-28 Tablet l 21:30: should not [place] 00 be chewed or crushed. (Same as: Protonix) pantoprazol 2015-06 No Notes: Kehinde batsheva e 0-28 Tablet l 21:30: should not [place] 00 be chewed or crushed. (Same as: [...] 0-28 Enteral l Oral 18:00: feeds may [place] Suspension 00 interfere [Carafate] with the absorption [...] as: l 15:58: Zofran Eb 00 ODT) Zofran ODT 2015-06 No Notes: Memor ia 0-28 (Same as: l 15:58: Zofran [place] 00 ODT) influenza 2015-06 No Notes: Memori [...] Memoria 0-28 Tablet l 12:30: should not [place] 00 be chewed or crushed. (Same as: [...] Memoria 0-28 Tablet l 12:30: should not [place] 00 be chewed or crushed. (Same as: Protonix) pantoprazol 2015-06 No Notes: For Memoria e 0-28 IV push l 12:30: reconstitu Eb 00 te with 10 ml 0.9% sodium chloride and push over 2 minutes. (Same as: Protonix) Protonix 2015-06 No Notes: For Mem oria 0-28 IV push l 09:43: reconstitu [place] 00 te with 10 ml 0.9% sodium chloride and push over 2 minutes. (Same as: Protonix) Protonix 2015-06 No Notes: For Mem oria 0-28 IV push l 09:43: reconstitu Eb 00 te with 10 ml 0.9% sodium chloride and push over 2 minutes. (Same as: Protonix) Phenergan 2015-06 No Notes: Memori a 0-28 (Same as: l 00:28: Phenergan) [place] 00 Zofran 2015-06 No Notes: Memoria 0-28 (Same as: l 00:28: Zofran) [place] 00 MEDICATION WASTE Product Size: 4 mg Product Wasted: ___ mg Phenergan 2015-06 No Notes: Memori a 0-28 (Same as: l 00:28: Phenergan) Eb 00 Zofran 2015-06 No Notes: Memoria 0-28 (Same as: l 00:28: Zofran) [place] 00 MEDICATION WASTE Product Size: 4 mg Product Wasted: ___ mg Morphine 2015-06 No Notes: Memoria 0-28 (Same l 00:27: as:MORPhin Eb 00 e Sulfate) Morphine 2015-06 No Notes: Memoria 0-28 (Same l 00:27: as:MORPhin Eb 00 e Sulfate) Ibuprofen 2015-06 No Notes: Memori a 0-27 (Same as: l 23:20: Motrin) [place] 00 "Do Not Crush" Take with food. Ibuprofen 2015-06 No Notes: Memori a 0-27 (Same as: l 23:20: Motrin) Eb 00 "Do Not Crush" Take with food. 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 Ondansetron 2015-06 No Notes: Kehinde batsheva 0-27 (Same as: l 21:35: Zofran) [place] 00 MEDICATION WASTE Product Size: 4 mg Product Wasted: ___ mg 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 Ondansetron 2015-06 No Notes: Kehinde batsheva 0-27 (Same as: l 21:35: Zofran) [place] 00 MEDICATION WASTE Product Size: 4 mg Product Wasted: ___ mg Zofran 2015-06 No 4 mg, Memoria 0-27 Route: l 20:22: IVP, Drug [place] 00 form: INJ, ONCE, Dosing Weight 88.636, kg, Priority: STAT, Start date: 04/08/16 15:22:00 CDT, Stop date: 04/08/16 15:22:00 CDT Zofran 2015-06 No 4 mg, Memoria 0-27 Route: l 20:22: IVP, Drug Eb 00 form: INJ, ONCE, Dosing Weight 88.636, kg, Priority: STAT, Start date: 04/08/16 15:22:00 CDT, Stop date: 04/08/16 15:22:00 CDT gabapentin 2015-06 No 300 mg = 1 M emoria 300 MG Oral 0-27 cap, PO, l Capsule 19:52: TID, # 30 Verna nn [Neurontin] 00 cap, 1 Refill(s) Promethazin 2015-06 No 25 mg = 1 M emoria e 0-27 supp, [place], l Hydrochlori 19:52: Q6H, PRN He rmbean [...] = 1 M emoria e 0-27 supp, [place], l Hydrochlori 19:52: Q6H, PRN He rmann [...] e 0-27 (Same as: l 16:05: Protonix) [place] 00 Metoclopram 2015-06 No Notes: Kehinde batsheva rebecca 0-27 (Same as: l 16:05: Reglan) Saline 2015-06 No Notes: Memoria Flush 0.9% 0-27 (Same as: l 16:05: BD [place] 00 Posiflush) Sodium 2015-06 No 1,000 mL, Memori a Chloride 0-27 2,000 l 0.154 16:05: ml/hr, [place] MEQ/ML 00 Infuse Injectable Over: 30 Solution minutes, Route: IV, 1,000, Drug form: INJ, ONCE, Priority: STAT, Dosing Weight 88.636 kg, Start date: 04/08/16 11:05:00 CDT, Duration: 1 doses or times, Stop date: 04/08/16 11:05:00 CDT Hydromorpho 2015-06 No Notes: Kehinde batsheva ne 0-27 Same as: l 16:05: Dilaudid [place] 00 pantoprazol 2015-06 No Notes: Kehinde batsheva e 0-27 (Same as: l 16:05: Protonix) Eb Metoclopram 2015-06 No Notes: Kehinde batsheva rebecca 0-27 (Same as: l 16:05: Reglan) [place] Saline 2015-06 No Notes: Memoria Flush 0.9% 0-27 (Same as: l 16:05: BD [place] 00 Posiflush) Sodium 2015-06 No 1,000 mL, Memori a Chloride 0-27 2,000 l 0.154 16:05: ml/hr, [place] MEQ/ML 00 Infuse Injectable Over: 30 Solution [...] old l patch 02:00: Nicotine Eb before patch applying before Q24H applying Q24H, ONCE, Drug form: MISC, Route: N/A, Daily, 12/24/15 21:00:00 CDT, Duration: 30 day, Stop date: 01/23/16 9:00:00 CDT Remove old No Remove Memor ia Nicotine 7-14 old l patch 02:00: Nicotine [place] before patch applying before Q24H applying Q24H, ONCE, Drug form: MISC, Route: N/A, Daily, 12/24/15 21:00:00 CDT, Duration: 30 day, Stop date: 01/23/16 9:00:00 CDT Sucralfate Yes 1 gm = 10 Me moria 100 MG/ML 7-13 mL, PO, l Oral 22:14: QID, # Eb Suspension 00 1200 mL, 0 [Carafate] Refill(s), Pharmacy: [id number] [id number] [facility] [employer] pantoprazol Yes 40 mg = 1 M emoria e 40 mg 7-13 tab, PO, l oral 22:14: BID-Before Eb enteric 00 Meals, # coated 60 tab, 0 tablet Refill(s), Pharmacy: [facility] [id number] [facility] [employer] Sucralfate Yes 1 gm = 10 Me moria 100 MG/ML 7-13 mL, PO, l Oral 22:14: QID, # [place] Suspension 00 1200 mL, 0 [Carafate] Refill(s), Pharmacy: [facility] [id number] [facility] [employer] pantoprazol Yes 40 mg = 1 M emoria e 40 mg 7-13 tab, PO, l oral 22:14: BID-Before Eb enteric 00 Meals, # coated 60 tab, 0 tablet Refill(s), Pharmacy: [facility] [id number] [facility] [employer] Protonix No Notes: Memoria 7-13 Tablet l 21:30: should not Eb 00 be chewed or crushed. (Same as: Protonix) Protonix No Notes: Memoria 7-13 Tablet l 21:30: should not Eb 00 be chewed or crushed. (Same as: Protonix) potassium No Notes: Memori a chloride 7-13 (Same as: l 14:52: K-Dur 20) [place] 00 "Do Not Crush" With food and [...] 4 gm/day. Eb 00 (Same as: Tylenol) Nicotine No Notes: [...] 7-12 Enteral l Oral 18:00: feeds may [place] Suspension 00 interfere [Carafate] with the absorption of this medication . Shake well. Take 1 hr before or 2 hrs after antacids, dairy pdt, minerals & meals. (Same As: Carafate) Sucralfate No Notes: Memor ia 100 MG/ML 7-12 Enteral l Oral 18:00: feeds may [place] Suspension 00 interfere [Carafate] with the absorption of this medication . Shake well. Take 1 hr before or 2 hrs after antacids, dairy pdt, minerals & meals. (Same As: Carafate) Sodium 2015- No 1,000 mL, Memori a Chloride 7-12 Rate: 20 l 0.154 17:54: ml/hr, [place] MEQ/ML 00 Infuse Injectable over: 50 Solution hr, Route: IV, Dosing Weight 86.364 kg, Total Volume: 1,000, Start date: 12/23/15 12:54:00 CDT, Duration: 2 hr, Stop date: 12/23/15 14:53:00 CDT Sodium 2015- No 1,000 mL, Memori a Chloride 7-12 Rate: 20 l 0.154 17:54: ml/hr, [place] MEQ/ML 00 Infuse Injectable over: 50 Solution [...] over 2 minutes. (Same as: Protonix) Sodium 2015-0 No 100 mL, Memoria Chloride 7-12 Rate: [...] 7-12 Rate: 10 l 0.154 01:36: ml/hr, [place] MEQ/ML 00 Infuse Injectable over: 10 Solution [...] times, Stop date: 12/22/15 20:40:00 CDT pantoprazol 0 No Notes: Kehinde batsheva e 7-11 Same as: l 14:00: Protonix) [place] pantoprazol 0 No Notes: Kehinde batsheva e 7-11 Same as: l 14:00: Protonix) [place] 00 Flagyl 0 No Notes: Memoria 7-11 (Same as: l 02:00: Flagyl) Eb 00 Avoid alcohol. Ciprofloxac No Notes: Do M emoria in 12-21 not l 02:00: refrigerat [place] 00 e Flagyl No Notes: Memoria 7-11 (Same as: l 02:00: Flagyl) [place] Avoid alcohol. Ciprofloxac No Notes: Do M emoria in 12-21 not l 02:00: refrigerat Eb e Phenergan No Notes: Memori a 7-11 (Same as: l 01:22: Phenergan) [place] 00 Sodium No 1,000 mL, Memori a Chloride 7-11 Rate: 125 l 0.154 01:22: ml/hr, [place] MEQ/ML 00 Infuse Injectable over: 8 Solution hr, Route: IV, Dosing Weight 88.636 kg, Total Volume: 1,000, Start date: 12/21/15 20:22:00 CDT, Duration: 30 day, Stop date: 01/20/16 20:21:00 CDT Saline No Notes: Memoria Flush 0.9% 7-11 (Same as: l 01:22: BD Eb 00 Posiflush) Ondansetron No Notes: Kehinde batsheva 7-11 (Same as: l :22: Zofran) MEDICATION WASTE Product Size: 4 mg Product Wasted: ___ mg Morphine No Notes: Memoria 7-11 (Same l 01:22: as:MORPhin [place] 00 e Sulfate) Phenergan No Notes: Memori a 7-11 (Same as: l 01:22: Phenergan) Eb 00 [...] 0.9% 7-11 (Same as: l 01:22: BD [place] 00 Posiflush) Ondansetron No Notes: Kehinde batsheva 7-11 (Same as: l 01:22: Zofran) [place] 00 MEDICATION WASTE Product Size: 4 mg [...] 0.9% 7-10 (Same as: l 21:04: BD [place] 00 Posiflush) Sodium No 1,000 mL, Memori a Chloride 7-10 2,000 l 0.154 21:04: ml/hr, [place] MEQ/ML 00 Infuse Injectable Over: 30 Solution minutes, Route: IV, 1,000, Drug form: INJ, ONCE, Priority: STAT, Dosing Weight 88.636 kg, Start date: 12/21/15 16:04:00 CDT, Duration: 1 doses or times, Stop date: 12/21/15 16:04:00 CDT Morphine No Notes: Memoria 7-10 (Same l 21:04: as:MORPhin [place] 00 e Sulfate) Promethazin No Notes: Kehinde batsheva e 7-10 (Same as: l 21:04: Phenergan) Eb 00 Saline No Notes: Memoria Flush 0.9% 7-10 (Same as: l 21:04: BD [place] 00 Posiflush) Sodium No 1,000 mL, Memori a Chloride 7-10 2,000 l 0.154 21:04: ml/hr, [place] MEQ/ML 00 Infuse Injectable Over: 30 Solution minutes, Route: IV, 1,000, Drug form: INJ, ONCE, Priority: STAT, Dosing Weight 88.636 kg, Start date: 12/21/15 16:04:00 CDT, Duration: 1 doses or times, Stop date: 12/21/15 16:04:00 CDT Ondansetron Yes 4 mg = 1 Me moria 4 MG Oral 7-10 tab, PO, l Tablet 05:00: BID, X 5 [place] [Zofran] 00 day, # 10 tab, 0 Refill(s) Ondansetron Yes 4 mg = 1 Me moria 4 MG Oral 7-10 tab, PO, l Tablet 05:00: BID, X 5 [place] [Zofran] 00 day, # 10 tab, 0 [...] Memoria 7-10 (Same as: l 03:35: Reglan) [place] 00 Bentyl No Notes: Memoria 7-10 (Same as: l 03:35: Bentyl) Eb 00 Reglan No Notes: Memoria 7-10 (Same as: l 03:35: Reglan) Eb GI cocktail No Notes: Kehinde batsheva 7-10 G.I. l 02:27: Cocktail = [place] antacid with simethicon e 22.5 mL - lidocaine viscous 7.5 mL GI cocktail No Notes: Kehinde batsheva 7-10 G.I. l 02:27: Cocktail = Eb 00 antacid with simethicon e 22.5 mL - lidocaine viscous 7.5 mL Morphine 2015-0 No 4 mg, Memoria 7-10 Route: l 00:36: IVP, Drug [place] 00 form: INJ, ONCE, Dosing Weight 87.727, kg, Priority: STAT, Start date: 12/20/15 19:36:00 CDT, Stop date: 12/20/15 19:36:00 CDT Morphine 2015-0 No 4 mg, Memoria 710 Route: l 00:36: IVP, Drug form: INJ, ONCE, Dosing Weight 87.727, kg, Priority: STAT, Start date: 12/20/15 19:36:00 CDT, Stop date: 12/20/15 19:36:00 CDT Ondansetron No Notes: Kehinde batsheva 12-19 (Same as: l 23:37: Zofran) Eb 00 MEDICATION WASTE Product Size: 4 mg Product Wasted: ___ mg Sodium 2015- No 1,000 mL, Memori a Chloride 12-19 2,000 l 0.154 23:37: ml/hr, [place] MEQ/ML 00 Infuse Injectable Over: 30 Solution minutes, Route: IV, 1,000, Drug form: INJ, ONCE, Priority: STAT, Dosing Weight 87.727 kg, Start date: 12/20/15 18:37:00 CDT, Duration: 1 doses or times, Stop date: 12/20/15 18:37:00 CDT Saline 0 No Notes: Memoria Flush 0.9% 12-19 (Same as: l 23:37: BD Eb Posiflush) Ondansetron 0 No Notes: Kehinde batsheva [...] times, Stop date: 12/20/15 18:37:00 CDT Saline 2015- No Notes: Memoria Flush 0.9% 12-19 (Same as: l 23:37: BD [place] 00 Posiflush) Immunizations Ordered Immunization Filled Immunization Date Status Commen ts Source Name Name Pneumococcal 2017-05-06 Completed [facility] Conjugate 13-Valent 00:00:00 Metho dist Vital Signs Vital Name Observation Time Observation Value Comments Source Respitory Rate 2016-04-11 13:00:00 Memori al [place] Temperature Oral (F) 2016-04-11 13:00:00 98 F [facility] Eb Systolic (mm Hg) 2016-04-11 13:00:00 Kehinde rial [place] Diastolic (mm Hg) 2016-04-11 13:00:00 Mem orial [place] Heart Rate 2016-04-11 13:00:00 [facility] [place] Respitory Rate 2016-04-11 09:20:00 Memori al Be Temperature Oral (F) 2016-04-11 09:20:00 97.4 F Memorial Eb Heart Rate 2016-04-11 09:20:00 [facility] [place] Systolic (mm Hg) 2016-04-11 09:20:00 Kehinde rial [place] Diastolic (mm Hg) 2016-04-11 09:20:00 Mem orial Eb Temperature Oral (F) 2016-04-11 04:55:00 98.1 F Memorial Eb Systolic (mm Hg) 2016-04-11 04:55:00 Kehinde rial Eb Diastolic (mm Hg) 2016-04-11 04:55:00 Mem orial [place] Heart Rate 2016-04-11 04:55:00 Memorial Eb Respitory Rate 2016-04-11 04:55:00 Memori al Eb Height 2016-04-08 22:42:00 162.56 cm [facility] [place] Weight 2016-04-08 22:42:00 [facility] [place] BMI Calculated 2016-04-08 22:42:00 Memori al Eb Height 2016-04-08 15:37:00 162.56 cm Memorial Eb Weight 2016-04-08 15:37:00 [facility] Eb BMI Calculated 2016-04-08 15:37:00 Memori al Eb Systolic (mm Hg) 2015-12-24 21:00:00 Kehinde rial [place] Diastolic (mm Hg) 2015-12-24 21:00:00 Mem orial Eb Temperature Oral (F) 2015-12-24 21:00:00 98.1 F Memorial Eb Heart Rate 2015-12-24 21:00:00 [facility] Eb Respitory Rate 2015-12-24 21:00:00 Memori al [place] Systolic (mm Hg) 2015-12-24 17:00:00 Kehinde rial [place] Diastolic (mm Hg) 2015-12-24 17:00:00 Mem orial [place] Respitory Rate 2015-12-24 17:00:00 Memori al [place] Heart Rate 2015-12-24 17:00:00 Memorial Be Temperature Oral (F) 2015-12-24 17:00:00 97.8 F [facility] Eb Temperature Oral (F) 2015-12-24 13:00:00 97.4 F [facility] [place] Heart Rate 2015-12-24 13:00:00 [facility] Eb Systolic (mm Hg) 2015-12-24 13:00:00 Kehinde rial [place] Diastolic (mm Hg) 2015-12-24 13:00:00 Mem orial Eb Respitory Rate 2015-12-24 13:00:00 Memori al [place] Height 2015-12-22 02:10:00 162.56 cm Memorial Eb BMI Calculated 2015-12-22 02:10:00 Memori al Eb Weight 2015-12-22 02:10:00 [facility] [place] Height 2015-12-21 20:41:00 162.56 cm Memorial Eb BMI Calculated 2015-12-21 20:41:00 Memori al Eb Weight 2015-12-21 20:41:00 [facility] [place] Heart Rate 2015-12-21 04:57:00 [facility] Eb Temperature Oral (F) 2015-12-21 04:57:00 98.1 F [facility] Eb Respitory Rate 2015-12-21 04:57:00 Memori al Eb Systolic (mm Hg) 2015-12-21 04:57:00 Kehinde rial [place] Diastolic (mm Hg) 2015-12-21 04:57:00 Mem orial Eb Weight 2015-12-20 21:28:00 [facility] [place] Temperature Oral (F) 2015-12-20 21:28:00 97.9 F Memorial Be Respitory Rate 2015-12-20 21:28:00 Jackson lee Eb Systolic (mm Hg) 2015-12-20 21:28:00 Kehinde mae [place] Diastolic (mm Hg) 2015-12-20 21:28:00 Mem bronwyn [place] Heart Rate 2015-12-20 21:28:00 [facility] Procedures Procedure Date / Time Performed Performing Clinician [facility] e Tonsillectomy [facility] Plan of Care Planned Activity Planned Date Details Comments Source Future Scheduled 2021-01-11 INFLUENZA VACCINE [place] [facility] Test 00:00:00 [code = INFLUENZA VACCINE] Future Scheduled 2010 Screening for [facility]odist Test 00:00:00 malignant neoplasm of cervix (procedure) [code = 495666413] Future Scheduled 2001 COVID-19 VACCINE (1) Amelia yennifer [facility]ist Test 00:00:00 [code = COVID-19 VACCINE (1)] Encounters Start End Encounter Admission Attending Care Care Encounter Source Date/Time Date/Time Type Type Clinicians Facility Department ID 2020-11-15 2020-11-15 Refill JAQAUN Plunkett [id number] 00:00:00 00:00:00 Miya Boogie [id number] [place] [id number] Professio [id number] nal 085 [facility] 2020-09-04 2020-09-04 Orders Doctor MILO [id number] 00:00:00 00:00:00 Only Unassigned, JEANIE [id number] [facility] [id number] 2020-09-02 2020-09-02 Telephone JAQUAN Plunkett [id number] 00:00:00 00:00:00 Miya Boogie [id number] [place] [id number] Professio [id number] nal 085 [facility] 2020-09-02 2020-09-02 Patient JAQUAN Dash [id number] 00:00:00 00:00:00 Outreach [facility] [id number] [facility] [id number] EZIO [id number] 2020-08-15 2020-08-15 Office Kiarra OKNILESH [id number] 15:09:23 15:39:23 Visit Miya Rawlings [id number] [place] [id number] Joesph [id number] [address] 2016-04-08 2016-04-11 Outpatient White, [facility] MHPL [id number] 10:34:00 10:50:00 Janeana [place] 2016-04-08 2016-04-11 Outpatient White, [facility] [id number] 10:34:00 10:50:00 Janeana [place] 2015-12-21 2015-12-24 Outpatient White, [facility] [id number] 15:38:00 19:08:00 Janeana [place] 2015-12-21 2015-12-24 Outpatient White, [facility] MHPL [id number] 15:38:00 19:08:00 Janeana [place] 2015-12-20 2015-12-21 Outpatient Ingalacain, [facility] MHPL [id number] 16:20:00 00:07:00 Siddharth 00 Cas 2015-12-20 2015-12-21 Outpatient Carolinecain, [facility] [id number] 16:20:00 00:07:00 Siddharth 00 Cas Results Test Description Test Time Test Comments Results Result Comments Source HEMATOLOGY 2016-04-11 08:44:00 Test Item Value Reference Range Interpretation Comme nts MCH (test code = MCH) 27.1 pg 27.0-31.0 [facility] [id number] 08:44:[facility] 2016-04-11 08:44:85839Gyhfiumf LodufsoYYRPQDILUONP8657-61-81 08:44:009.9[facility] UbbvxteTEWTQYJSZTWP0430-40-35 08:44:84267Zqkgpumw QlvfpqlDUIQFPYUUJDN8454-84-77 08:44:003.9[facility] ZtwihrfNWNRFEFFMTGD4588-68-45 08:44:45050Jnhhucdx [place] JYDDGSCHNWBK1809-37-62 08:44:45456Zrshycur OkecjepHHEKYXUKFYOG9737-00-00 08:44:007.8[facility] NklwbpoZLUYCEBMOIGE7737-16-81 08:44:0030[facility] Eb OBAPZVBLNYXW6258-62-89 08:44:09623Ukmhsmvk IwstlrhEAIRUWJUXRNS6219-52-97 08:44:002[facility] KbinqcjTEDCJVEIKBQY1606-49-71 08:44:000.67[facility] [place] PQQFMGHVVD5660-92-08 08:44:0010.1[facility] BgezchgZCJTJWGTPV1668-02-51 08:44:00 3.73[facility] ZqufguaEHDALOWHLK5055-57-53 08:44:0081.8[facility] 2016-04-11 08:44:008.7[facility] UrurimxBKWJXIOBCA5215-65-60 08:44:0030.5[facility] XhqwljrQYADJWBVEX7836-56-04 08:44:009.0[facility] FenlqjtRVYYKDPPFO6469-12-01 08:44:0033.2[facility] BvofpyqRQDWUSPBMK7342-73-01 08:44:00 Test Item Value Reference Range Interpretation Comments MCH (test code = MCH) 27.1 pg 27.0-31.0 [facility] AweljcaJJQLNMVPZV1773-95-60 08:44:0017.4[facility]MAT[facility]Y 2016-[facility]-11 08:44:50500Jqhzaatf UhfmsfvXEUMHBSMYOWS0013-12-68 08:44:009.9[facility] LhxxzuwFMTLEWRLTQUE2840-92-63 08:44:47326Gsznqpek ShdyinlIIJJRBKYVPLN4953-76-04 08:44:003.9[facility] MsvdsoxZEPOYCBTZMFG2315-95-00 08:44:34668Azigzcmt Eb JZYCKAMZFJSI0112-85-39 08:44:63813Mxuvvcnk JgpydzqQEHCFMMDEKWK6984-33-62 08:44:007.8[facility] MahyoxqQAWIVSKHSTDE2707-06-79 08:44:0030[facility] DVUGLLLCLOKG8220-37-74 08:44:93790Beactwvk TemqcxkNRVCIRDXQUOY9517-26-47 08:44:002[facility] EysyyrhKXCRWLNRXLZH1533-34-44 08:44:000.67[facility] Eb ELAIOZEREH2202-79-40 08:44:0010.1[facility] HkhmvrhOYJMPTBNWW2693-40-58 08:44:00 3.73[facility] BzihfeqEYENMEWLPF4350-61-97 08:44:0081.8[facility]annHEMATOLOGY 2016-04-11 08:44:008.7[facility] JkybezvNVAOLIMKOM4849-01-77 08:44:0030.5[facility] IzoeznmGKBTJQGJRV5727-43-03 08:44:009.0[facility] CwaacpkHMMTCNPDYP9927-69-64 08:44:0033.2[facility] AghpkssBLIVSMVMJY5376-67-02 16:52:62529Qhqogadl [place] NBIFOGQXJR8617-37-90 16:52:0017.2[facility] AubwuaeEHWUDVONFO5387-24-75 16:52:00 8.6[facility] UznwiyrWOIEXHUGIM2556-90-44 16:52:0082.1[facility]annHEMATOLOGY 2016-04-10 16:52:0033.2[facility] BjdsnebCYTACSJFDY2505-72-70 16:52:00 Test Item Value Reference Range Interpretation Comments MCH (test code = MCH) 26.8 pg 27.0-31.0 [facility] UhbrxjhTKUWSQHKNT7932-84-58 16:52:0032.6[facility]annHEMATOLOGY 2016-04-10 16:52:0010.8[facility] ReyyribXUIZYDKFTT1732-83-42 16:52:007.1[facility] EmatqygXGUXPNHKNN3197-43-88 16:52:004.04[facility] BuduvmyEERBKJDZCQ8403-82-98 16:52:63022Ybaupbmv CygixhyEVICWCYBTO9296-51-95 16:52:0017.2[facility] VMSKIBIULT4727-23-72 16:52:008.6[facility] UvxqybzKNWXBUXBCX7876-58-13 16:52:00 82.1[facility] OwxyfoqMWPIVSQEVU7610-46-20 16:52:0033.2[facility]annHEMATOLOGY 2016-04-10 16:52:00 Test Item Value Reference Range Interpretation Comments MCH (test code = MCH) 26.8 pg 27.0-31.0 [facility] ZunbzuhOXXBAISSGJ5388-01-33 16:52:0032.6[facility]annHEMATOLOGY 2016-04-10 16:52:0010.8[facility] YahufstILZKDPLMZT6681-09-57 16:52:007.1[facility] BchvfibRXVONYSSAP5354-45-38 16:52:004.04[facility]annCHEM BHCGX2819-66-63 08:33:94861Zyyuiuhc HermannCHEM VDSGN3620-73-75 08:33:000.67[facility]annCHEM MDUFL5959-65-51 08:33:004[facility]annCHE[facility] ZSSHK9588-78-45 08:33:87987 [facility]annCHE[facility] CEZZJ8681-39-57 08:33:003.5[facility]annCHEM PANEL 2016-04-10 08:33:007.8[facility]annCHEM LIHCG3351-65-48 08:33:0031[facility]annCHEM VAFTW1783-93-60 08:33:0095[facility]annCHEM MUNPT4998-27-80 08:33:007.5[facility]annCHEM CEWDC8786-46-11 08:33:71511Qlykzlgh HermannCHEM EQWAY2722-17-73 08:33:99440Mtrlyawe HermannCHEM VEKVO2532-75-81 08:33:000.67 [facility]annCHE[facility] ETPEW7356-11-27 08:33:004[facility]annCHEM PANEL 2016-04-10 08:33:45560Pnyowwri HermannCHEM XSUBI0572-07-82 08:33:003.5[facility]annCHEM VDPVE6566-67-52 08:33:007.8[facility]annCHEM RWGST4975-64-17 08:33:0031[facility]annCHEM IEVRG5037-72-89 08:33:0095[facility]annCHEM NNQQQ9063-01-73 08:33:007.5[facility]annCHEM NSBPD4153-32-09 08:33:41934 [facility] DrrguejHHGFAMEGAF9431-92-05 09:19:008.6[facility]annHEMATOLOGY 2016-04-09 09:19:48702Uarntobd MksagitGJSFPARRXF6601-46-47 09:19:0011.5[facility] IpeclqcCEEBHBNVFE3990-69-59 09:19:004.10[facility] LszcheyXXMJNCAVUU7977-19-34 09:19:0011.1[facility] PqryoprKCYNMMFRWZ5996-03-75 09:19:00 Test Item Value Reference Range Interpretation Comments MCH (test code = MCH) 27.0 pg 27.0-31.0 [facility] AznigwcGYSJIJLTNJ7342-20-26 09:19:0079.8[facility]annHEMATOLOGY 2016-04-09 09:19:0032.7[facility] EinyrnfCAIOCHGLRC9754-70-85 09:19:0017.7[facility] WsnqpgkBBLYLYMRII3214-25-64 09:19:0033.9[facility] IslnyovMQDHETEQTW0974-32-46 09:19:0068.8[facility] SukjyveUGVHCYFNHH6972-39-21 09:19:000.4[facility] XMAAGDHIUV8126-06-49 09:19:002.5[facility] NxdmutdQUXSKTCASI9865-17-74 09:19:007.9 [facility] GlitefuRFOTRPZNBT6326-51-68 09:19:000.1[facility]annHEMATOLOGY 2016-04-09 09:19:000.9[facility] GbwqfndHWCZCHDEGB5990-60-52 09:19:001.1[facility] FynltbsXRITHSXHEN9245-03-17 09:19:008.1[facility] UxezecdFSEEMKQDFS0785-31-65 09:19:0021.6[facility] HpxhwfwQRUFGAGGVJ9491-12-96 09:19:008.6[facility] Eb XGAUEKVSLY4830-87-02 09:19:62305Tvrcswrz TyprkvkXILOXSBNFK9369-70-39 09:19:00 11.5[facility] SjqgujsSECKHXOQUZ2787-28-89 09:19:004.10[facility]annHEMATOLOGY 2016-04-09 09:19:0011.1[facility] WuvtkhnYOFACXCKLZ0188-42-27 09:19:00 Test Item Value Reference Range Interpretation Comments MCH (test code = MCH) 27.0 pg 27.0-31.0 [facility] MrgmryoJIKRHOCOMK9338-73-16 09:19:0079.8[facility]annHEMATOLOGY 2016-04-09 09:19:0032.7[facility] QnfweraNIWBIHDSUA7366-05-02 09:19:0017.7[facility] KufdgnqBVJNWYJUUQ8640-10-54 09:19:0033.9[facility] RdpebefQRBGPLLWPS5728-45-55 09:19:0068.8[facility] ExhpytmPKXNFGKHDN8104-50-29 09:19:000.4[facility] PENSVQPCOJ1396-96-92 09:19:002.5[facility] AdkoscrFUQVXBGSLE9963-33-08 09:19:007.9 [facility] KjpvhzqZESXTJRXFY5563-99-38 09:19:000.1[facility]annHEMATOLOGY 2016-04-09 09:19:000.9[facility] DxgfswsEFJKDTMMWA5705-67-65 09:19:001.1[facility] WjsdwluOXMBBICKAG4659-44-30 09:19:008.1[facility] OfgyxlyDTFLLYVNFC0890-38-06 09:19:0021.6[facility]annCHEM VWOZL9242-80-17 16:28:49712Bivnkfhu Eb VKRLAJAAKZPJ6519-25-41 16:28:009.5[facility] GlbbiwkBUKAQHVRBFLJ4604-96-02 16:28:008[facility] BoasutfBTJLVOYIFSGZ7873-81-18 16:28:001.2[facility] VFWWDDHUXOQR0336-83-35 16:28:003.3[facility] ZtzwyzpQYJUEZJUMOWC5433-50-76 16:28:0029[facility] YhkzdxaAXSMYTFYOESO9091-13-08 16:28:19162Wqkwdstm Eb NMJWZGSBPUWX6784-81-62 16:28:000.4[facility] MbqmzovRYAPETBXMRRF4192-43-91 16:28:008.5[facility] XzndgqpQYQDKXPLGBJA7173-47-26 16:28:007.1[facility] Eb QMSXBFLQFCTV4094-89-22 16:28:0015[facility] RhembufSGCAHBQLAEFN3199-78-00 16:28:00 117[facility] PhxnfouIIIIFHRAHNHH1765-09-07 16:28:003.8[facility] Eb RBWQWETNEIJC4427-13-43 16:28:78244Kpepzcow LjubyefDLCKTKZWVYPM9891-67-19 16:28:0020[facility] GnkpoyaENOAJHODFRTB2118-86-79 16:28:0080[facility] URBQKWCTJUXX5908-17-40 16:28:003.5[facility] ZndeqpxRSRSUBDXIEDO8867-86-93 16:28:006[facility] NfhzlxxDXXVOEGNIIUH7402-25-73 16:28:98196Laotnbry Eb CVUJHHTGJTQV7418-65-76 16:28:000.71[facility] DpljunsIGQQODTOTK7654-03-05 16:28:00 0.3[facility] NvjrbvxVYEPAWQVJC9511-32-55 16:28:000.1[facility]annHEMATOLOGY 2016-04-08 16:28:0010.1[facility] VyunqnlWSIEMQEGZV7782-82-15 16:28:001.7[facility] ZvxznrjLIFOFEALXZ6292-49-86 16:28:000.7[facility] EtrargwFYAJUHIKUM5178-96-85 16:28:0080.1[facility] RfbkphuIUKRYCNYZG4472-91-14 16:28:005.8[facility] CVNVVRVDDX7338-99-42 16:28:000.6[facility] SovvqbvDXFLNKKHNQ5351-44-14 16:28:00 13.2[facility]UR[facility] AND WVGAA2235-55-34 16:28:00 Test Item Value Reference Range Interpretation Comments UA Spec Grav (test code = UA Spec 1.015 1 Grav) [facility] OLOAH9915-70-36 16:28:00Clear (04/08/16 11:28 AM) [facility] QTWBL7284-65-17 16:28:00Yellow *NA*(04/08/16 11:28 AM) [facility] LCGLH8731-05-26 16:28:00Negative *NA*(04/08/16 11:28 AM)[facility] TAAZK8288-12-90 16:28:00 Test Item Value Reference Range Interpretation Comments UA pH (test code = UA pH) 8.5 1 5.0-8.0 [facility] JTTSU8221-06-03 16:28:00Negative (04/08/16 11:28 AM) [facility] ZFYST2576-17-57 16:28:00Negative (04/08/16 11:28 AM) [facility] MPYYT3676-59-65 16:28:000.2[facility] LVPUY3632-99-84 16:28:00Negative (04/08/16 11:28 AM)[facility] CHEM 2016-04-08 16:28:00Negative (04/08/16 11:28 AM)[facility]annCHEM PANEL 2016-04-08 16:28:19867Vigqmnva WpeqgmdYGKOUWHRUGIY5806-87-57 16:28:009.5[facility] GsuytufJDADGRJGVVJH4850-14-45 16:28:008[facility] YfzkiciBAOBCAGQFDZL5754-85-39 16:28:001.2[facility] EozladwHAUODDMDORGH2911-73-84 16:28:003.3[facility] Eb GBXTURWAJBDF7056-53-62 16:28:0029[facility] BukbwhaBRYUKPELKYFJ3153-63-22 16:28:00 106[facility] XyxirylSQHHZBUQBGRV3246-41-56 16:28:000.4[facility] Eb ROCAZVAHRWBY2700-49-58 16:28:008.5[facility] RzgwfmyWUQLXWIOWLTH6275-07-68 16:28:007.1[facility] DzizpqiUWUMKJZRBSBS9534-48-89 16:28:0015[facility] Eb SLIVSJKWCMCE5822-07-43 16:28:27395Ecmrxevq WczlqymKLHEDHUZWLJG7511-63-68 16:28:003.8[facility] AxhkkpdWZOPWGDWICPU1528-76-48 16:28:47590Qqrbxowk Eb AHSKRETRXEOT5373-20-59 16:28:0020[facility] DrrfzscALDQWHILDJKW3016-12-12 16:28:00 80[facility] BklzjbyXLVAJJZBSOWY5934-61-40 16:28:003.5[facility] HermannELECTROLYTES 2016-04-08 16:28:006[facility] SpbhshgGFRFSJQOGWOY0527-52-51 16:28:42000Znbwgecb OiqfwqjCYQMBJYWUUXJ8051-17-05 16:28:000.71[facility] TdafrofRGKQEKMYEO0321-71-57 16:28:000.3[facility] NsrsltaUBJTMCWEUN5350-20-18 16:28:000.1[facility] Eb FQXQVBBKPH5329-39-34 16:28:0010.1[facility] KsgigxpJJMAELMXGQ3500-63-15 16:28:00 1.7[facility] TdzkwzuYQJVUTXRXY4835-40-52 16:28:000.7[facility]annHEMATOLOGY 2016-04-08 16:28:0080.1[facility] YsxnricALZZDTHAMS3487-34-50 16:28:005.8[facility] PqzyygzUSVZPULTOX5235-95-13 16:28:000.6[facility] MszbgphUCCWYOOGZB3486-83-69 16:28:0013.2[facility] AGFIF2905-61-52 16:28:00 Test Item Value Reference Range Interpretation Comments UA Spec Grav (test code = UA Spec 1.015 1 Grav) [facility] DIVVQ3362-01-03 16:28:00Clear (04/08/16 11:28 AM) [facility] KEQVP9610-86-98 16:28:00Yellow *NA*(04/08/16 11:28 AM) [facility] CSNFG6462-99-45 16:28:00Negative *NA*(04/08/16 11:28 AM)[facility] LULVQ6797-25-05 16:28:00 Test Item Value Reference Range Interpretation Comments UA pH (test code = UA pH) 8.5 1 5.0-8.0 [facility] LOUQT5456-79-53 16:28:00Negative (04/08/16 11:28 AM) [facility] NHLPE3490-44-65 16:28:00Negative (04/08/16 11:28 AM) [facility] WSYTM8189-81-58 16:28:000.2[facility] VWMUX9060-82-92 16:28:00Negative (04/08/16 11:28 AM)[facility] CHEM 2016-04-08 16:28:00Negative (04/08/16 11:28 AM)[facility] HermannELECTROLYTES 2015-12-24 11:08:0014.3[facility] LwshuxnYLDQWQARRRUR9442-81-09 11:08:97893 [facility] ZuiezuoXZDZKSGJGBJI5576-20-34 11:08:003.3[facility] HermannELECTROLYTES 2015-12-24 11:08:0023[facility] CawyoauFFWLBANKMDKE8899-22-71 11:08:007.6[facility] KaphkujYKAGAELGPZCO8410-82-50 11:08:000.64[facility] DjlobjxBZJSHEHAWBBP5365-47-61 11:08:005[facility] IuntbetYXNLYQWFCRNC7182-10-31 11:08:62415Dletayla Eb LWDNOZNPIWES4904-14-15 11:08:06719Javvmgls NnqkiwmWDPQJTCEJRWX0073-01-64 11:08:51617Qumyrmoe LmzpvwvTLUNUTPLBP6100-18-20 11:08:13107Fcjhvree [place] OBYSAVZDKF5263-96-74 11:08:008.1[facility] NbmkrweKVTHKIXTNB5637-88-39 11:08:00 82.2[facility] ZpycbqqACRXJKSFVH8340-90-04 11:08:0032.4[facility]annHEMATOLOGY 2015-12-24 11:08:0017.7[facility] VylmpcfBKIFNSFHTZ4457-08-65 11:08:00 Test Item Value Reference Range Interpretation Comments MCH (test code = MCH) 26.7 pg 27.0-31.0 [facility] ZbmnbucYTQRYTKQLN5762-44-87 11:08:003.93[facility]annHEMATOLOGY 2015-12-24 11:08:0032.3[facility] TafuxmcCSXHUUXEEB2404-04-61 11:08:0010.5[facility] DsvkrdtVKIBMRUPML7395-57-74 11:08:009.5[facility] DohvbheMGUAEALWVORD9488-07-30 11:08:0014.3[facility] BeeadmuYWYAFNHGKIEI0239-51-55 11:08:32769Kwrnilib Eb NGNSLCEWSYKR8899-90-23 11:08:003.3[facility] IwjwglcHVMUMYSJXLBT7224-66-99 11:08:0023[facility] QhmcxdtVLAWIHDWAHEO5193-50-28 11:08:007.6[facility] JYVKZZEONUZZ6364-87-93 11:08:000.64[facility] AtrmpqbLHSRWCCJWGXG4510-13-58 11:08:005[facility] AvwtfiuIJNUSOHTHIZI2775-03-42 11:08:35955Dumzfxfk Eb XCYTZJLCRRWH9951-27-16 11:08:76312Zcejazjj TkwietwBVSLVHMJKRLQ3967-67-65 11:08:00300Ehfljols GyqusvtXIAYUSSAFR7355-56-67 11:08:51042Omzzhvva Eb SQRXJNOCUY9049-03-90 11:08:008.1[facility] IiyqsxyXYPVCPFAZM9906-61-56 11:08:00 82.2[facility] HoxiwdiWIFFYHDTCC0889-69-03 11:08:0032.4[facility]annHEMATOLOGY 2015-12-24 11:08:0017.7[facility] PqjjjkdWOYRHJUZSB1416-44-78 11:08:00 Test Item Value Reference Range Interpretation Comments MCH (test code = MCH) 26.7 pg 27.0-31.0 [facility] UmisuzrPSBKLFNLWV3655-22-36 11:08:003.93[facility]annHEMATOLOGY 2015-12-24 11:08:0032.3[facility] ByllgalTEQDDCJIWU1896-05-92 11:08:0010.5[facility] UumgvmoJZYMVSJAUP2081-61-67 11:08:009.5[facility] HermannCHEM XQHTR8069-42-69 07:33:41285Touwmsfa HermannCHEM UMBWV0013-67-41 07:33:003.9[facility]annCHEM QCPJY2988-86-53 07:33:81470Sskfqepj HermannCHEM NSDQD8454-38-49 07:33:000.61 [facility]annCHEM FJLTY6897-56-40 07:33:84567Daxagrpe HermannCHEM PANEL 2015-12-22 07:33:008.1[facility]annCHEM BFTRS8934-61-23 07:33:0010[facility]annCHEM PTTYR1740-19-22 07:33:0088[facility]annCHEM HLFMU9023-20-35 07:33:0023[facility]annCHEM YRNYL3223-74-41 07:33:0013.9[facility] Eb OCGBRYOMPC7817-68-38 07:33:85251Thslniva WhephvgBEHTFOUFTW9292-17-17 07:33:008.3 [facility] MeezhwsLOTQUHJRPQ5016-68-37 07:33:0018.3[facility]annHEMATOLOGY 2015-12-22 07:33:0082.4[facility] NkmriyeTOQVKFDSMX3068-27-38 07:33:0032.1[facility] PztfslhKEQFBUSTDY9759-74-70 07:33:00 Test Item Value Reference Range Interpretation Comments MCH (test code = MCH) 26.4 pg 27.0-31.0 [facility] NgjxyjhBWTXTYHQCL2705-75-70 07:33:0034.7[facility]annHEMATOLOGY 2015-12-22 07:33:004.21[facility] TndorsvBDXAGYHEHD7133-17-06 07:33:0011.1[facility] DqkqfbkJYTVULSNMJ5514-70-76 07:33:0014.8[facility] PkdvvhnWROAZEUTGI5824-05-98 07:33:002.1[facility] UyppbqvMIXTJRZUGQ9902-30-80 07:33:000.9[facility] Eb QOGEXYJWEK8094-65-79 07:33:0011.7[facility] XxaouriEJIMIOOOVB5644-14-72 07:33:00 0.3[facility] PhqdpceIHHXXZYLSP9478-60-49 07:33:0014.1[facility]annHEMATOLOGY 2015-12-22 07:33:000.3[facility] FjnybkqLIQUNMEOAU5056-34-42 07:33:006.3[facility] NlxaalnBXQAKIFFNQ0533-59-50 07:33:0079.0[facility] HermannCHEM XFDVQ2704-90-32 07:33:48849Mqvxjvfo HermannCHEM ZVBVT5954-81-82 07:33:003.9[facility] HermannCHEM VDQWS6050-06-43 07:33:22572Qquwthba HermannCHEM SEEBX7083-46-48 07:33:000.61 [facility]annCHEM EFDSJ1132-38-13 07:33:48812Sdtykctj HermannCHEM PANEL 2015-12-22 07:33:008.1[facility] HermannCHEM POXLR4303-09-66 07:33:0010[facility]annCHEM ZNSFP4640-67-24 07:33:0088[facility] HermannCHEM MAGMV9491-54-48 07:33:0023[facility] HermannCHEM XNPJI7042-72-97 07:33:0013.9[facility] Eb OOFJZEYJZX5533-22-94 07:33:61058Krpfrfnf RvqpoqgWXJQZOPOMH5557-89-82 07:33:008.3 [facility] SznlixiENECXJZFDP5494-81-46 07:33:0018.3[facility]annHEMATOLOGY 2015-12-22 07:33:0082.4[facility] LmjrwxjPVXYRRANFM9875-21-48 07:33:0032.1[facility] EbyjoawUBLHBWNAWX4587-32-50 07:33:00 Test Item Value Reference Range Interpretation Comments MCH (test code = MCH) 26.4 pg 27.0-31.0 [facility] DdllmkhEFNWEAJXOG0504-25-95 07:33:0034.7[facility]annHEMATOLOGY 2015-12-22 07:33:004.21[facility] BnqvvhsWREQDCKDJS4870-40-58 07:33:0011.1[facility] AqvxmbgIMDSKQRRRS4610-07-12 07:33:0014.8[facility] NlxlekiASVBNGSUHV2943-53-23 07:33:002.1[facility] UrljwdlGIHLVSZULZ7199-86-15 07:33:000.9[facility] CRYWTQMDIV8059-85-26 07:33:0011.7[facility] FqswafkMRGGRQSXXP1339-22-00 07:33:00 0.3[facility] UevlwfvNHWCMTZOAG1956-66-66 07:33:0014.1[facility]annHEMATOLOGY 2015-12-22 07:33:000.3[facility] RmvioloDHBCLHDLDO9768-04-78 07:33:006.3[facility] VllunmxMPKRSSPYDM4856-40-89 07:33:0079.0[facility] STOOL 2015-12-21 22:21:00Yellow *NA*(12/21/15 5:21 PM)[facility] STOOL 2015-12-21 22:21:00Clear (12/21/15 5:21 PM)[facility] STOOL 2015-12-21 22:21:000.2[facility] LZGIY2515-47-75 22:21:00Negative (12/21/15 5:21 PM)[facility] SAXVB5568-29-12 22:21:00 Test Item Value Reference Range Interpretation Comments UA pH (test code = UA pH) 8.0 1 5.0-8.0 [facility] XDGBG6361-86-81 22:21:00 Test Item Value Reference Range Interpretation Comments UA Spec Grav (test code = UA Spec 1.015 1 Grav) [facility] JUAMV2702-36-62 22:21:00Negative (12/21/15 5:21 PM) [facility] TJXRB6057-16-68 22:21:00Negative *NA*(12/21/15 5:21 PM) [facility] PPOPH9883-93-67 22:21:00Negative (12/21/15 5:21 PM) [facility] JKWIR0139-04-60 22:21:00Negative (12/21/15 5:21 PM) [facility] BENGI8162-91-93 22:21:00Negative (12/21/15 5:21 PM) [facility] LDJRH1426-49-79 22:21:00See Note (12/21/15 5:21 PM) [facility] CWZT8847-80-62 22:21:00Negative (12/21/15 5:21 PM)[facility] AWIDF5176-93-61 22:21:00Yellow *NA*(12/21/15 5:21 PM)[facility] PCPWE1267-35-33 22:21:00Clear (12/21/15 5:21 PM)[facility] IFJXV7588-82-20 22:21:000.2[facility] KUUBM7701-69-03 22:21:00Negative (12/21/15 5:21 PM)[facility] ARPKF3276-79-17 22:21:00 Test Item Value Reference Range Interpretation Comments UA pH (test code = UA pH) 8.0 1 5.0-8.0 [facility] DRZMU5694-46-89 22:21:00 Test Item Value Reference Range Interpretation Comments UA Spec Grav (test code = UA Spec 1.015 1 Grav) [facility] ETHWX1812-03-16 22:21:00Negative (12/21/15 5:21 PM) [facility] OSGIB8197-39-34 22:21:00Negative *NA*(12/21/15 5:21 PM) [facility] NWAKE1466-36-80 22:21:00Negative (12/21/15 5:21 PM) [facility] TTFDI8646-75-17 22:21:00Negative (12/21/15 5:21 PM) [facility] OXKBQ9620-44-33 22:21:00Negative (12/21/15 5:21 PM) [facility] ADWGA6438-06-59 22:21:00See Note (12/21/15 5:21 PM) [facility] KMIC9635-13-03 22:21:00Negative (12/21/15 5:21 PM)[facility] HermannCHEM YBVGQ9891-18-97 21:21:12571Fobxoprv HermannCHEM XYIID9091-49-38 21:21:59623Jtuchcte HermannCHEM WXRXH4827-28-24 21:21:004.4[facility] HermannCHEM NOOEM5208-49-05 21:21:0026[facility] HermannCHEM DPVWC2766-77-78 21:21:009[facility] HermannCHE[facility] ZLCWL5223-95-65 21:21:38320Pncpuwck HermannCHEM VUUHB4332-02-97 21:21:0091[facility]annCHE[facility] EVIEW3866-56-00 21:21:000.74[facility] GJJHF4699-29-90 21:21:0023[facility] CZDTP9547-42-21 21:21:008.4 [facility] GFQZR9569-02-67 21:21:33509Zcugdqyo HermannCHEM PANEL 2015-12-21 21:21:003.9[facility]annCHE[facility] WIFUK4096-87-79 21:21:09572Yakakzdl [facility]annCHEM YQCEY4031-31-28 21:21:000.6[facility] MVXDN0934-56-82 21:21:008.8[facility] FXEZJ5725-42-18 21:21:0020[facility] MGKIO5207-15-47 21:21:001.1[facility] HXSOQ1640-07-76 21:21:004.0 [facility] DFIOS7238-03-07 21:21:0012[facility]annCHEM PANEL 2015-12-21 21:21:0015.9[facility] UwygkrcCAYQKGPWSN5216-13-34 21:21:002.5[facility] AfuwkfaFZZXNMMRNB4760-60-58 21:21:000.1[facility] GoyyjxnBBSVBBVDQV2226-12-77 21:21:000.8[facility] WsiihhgVARSKNDVAP5828-26-35 21:21:005.1[facility] IGKOMKGJEZ1491-57-72 21:21:0015.3[facility] RjpaewtZTTPAGDMNV0860-79-55 21:21:00 0.1[facility] VmpozxbMGFJHGTZWZ2050-85-31 21:21:0013.1[facility]annHEMATOLOGY 2015-12-21 21:21:000.6[facility] CbhqfqiRDKJZAIPLC9525-69-75 21:21:0078.9[facility] WkazjwxBPCUPPOPUG1497-83-36 21:21:007.8[facility] XxatlpfWRCPYFUHUK6697-93-08 21:21:00 Test Item Value Reference Range Interpretation Comments MCH (test code = MCH) 26.3 pg 27.0-31.0 [facility] RziiotsUOOSGXIMRR6012-04-91 21:21:0018.0[facility]annHEMATOLOGY 2015-12-21 21:21:0032.6[facility] TisehmwIGMLAFTRYM6642-27-50 21:21:22502Lnvnvwdz SwfkzykSFVUISCTJD1453-93-73 21:21:0016.6[facility] JrmuoeeWPBNTDYHEN2279-41-45 21:21:004.76[facility] CpzhnzuLHBIXKMVSF0565-02-75 21:21:0012.5[facility] Eb FSKALVTWPO0699-60-92 21:21:0038.3[facility] IpsfdqgBOEMRJQIDH2964-62-83 21:21:00 80.5[facility]annCHE[facility] NFPGS9439-84-72 21:21:73237Wdaktcvk HermannCHEM PANEL 2015-12-21 21:21:51553Vvuidzvb [facility]annCHEM LWEDN7914-12-28 21:21:004.4[facility]annCHE[facility] CGYNG9275-98-68 21:21:0026[facility]annCHE[facility] UHWZF7872-16-78 21:21:009[facility]annCHE[facility] REVCV8554-65-92 21:21:69224Owxojqys HermannCHEM GEWXE4300-95-08 21:21:0091[facility] VDWZZ3949-95-54 21:21:000.74 [facility] JRZYO3692-50-05 21:21:0023[facility]annCHEM PANEL 2015-12-21 21:21:008.4[facility]CHE[facility] PFVKW8541-75-90 21:21:44976Vwcaaqgr [facility]annCHEM CZQVE2443-04-33 21:21:003.9[facility] WLTRK0151-66-03 21:21:66265Fuzrijph HermannCHEM AJBAV1400-26-99 21:21:000.6[facility]annCHE[facility] LOHEE7429-57-00 21:21:008.8[facility]CHE[facility] VDXLY0217-22-77 21:21:0020 [facility] ZMNXN3043-08-92 21:21:001.1[facility]annCHEM PANEL 2015-12-21 21:21:004.0[facility]annCHE[facility] CAWVH2592-26-40 21:21:0012[facility]CHE[facility] WCBDB5558-09-98 21:21:0015.9[facility] YboymdrEPSNPOORKS6251-93-99 21:21:002.5[facility] WbqfrnbGHNDAVFSTC4481-98-03 21:21:000.1[facility] GAOJPXGBEJ3848-18-35 21:21:000.8[facility] BdnwijaBTFIKFPEPF4681-55-73 21:21:005.1 [facility] QfcacumFMNUVPSMSD2272-93-55 21:21:0015.3[facility] HermannHEMATOLOGY 2015-12-21 21:21:000.1[facility] LzvxlajPGLMDJXAPL6104-46-94 21:21:0013.1[facility] HtzimsyIXABHRBSPU0942-13-03 21:21:000.6[facility] SlyyjgeOENRLRXMCI2704-74-99 21:21:0078.9[facility] ZpepwzoQXUZWXRJEO7410-47-11 21:21:007.8[facility] CVADLCAVFY3383-97-68 21:21:00 Test Item Value Reference Range Interpretation Comments MCH (test code = MCH) 26.3 pg 27.0-31.0 [facility] JilkckmUEGTERFRTX4313-37-69 21:21:0018.0[facility]annHEMATOLOGY 2015-12-21 21:21:0032.6[facility] PpmatjdBKGHVZFRKW0717-14-59 21:21:22732Pxsaixvm BsqvigzXPSGYJQYGT6737-87-02 21:21:0016.6[facility] VqupfckKCNOPZPDQW3194-05-40 21:21:004.76[facility] OgcwvrlQJMFVOMYDO6822-48-83 21:21:0012.5[facility] DRCSRWFAKG8740-25-92 21:21:0038.3[facility] UkpeepdHUGZHGBZDG8444-01-57 21:21:00 80.5[facility]annCHEM RGZAN7854-11-15 00:23:35156Mlqxlxcw HermannELECTROLYTES 2015-12-21 00:23:0011.7[facility] TsqcblhGFVWIGFUVTWI5836-44-38 00:23:26737 [facility] GlfwvbxBFENMENXUDCN1039-56-04 00:23:008[facility] HermannELECTROLYTES 2015-12-21 00:23:0095[facility] RopdzmaTWYYLCAEZJGD6598-31-94 00:23:20440Yttzkcpc WqfwlqpWJHKBZREDYTW2143-42-47 00:23:000.76[facility] KxvkkpqAKYJTYFZQCET3999-38-55 00:23:0025[facility] OkyageuXKNRCSGNVUZR1590-15-83 00:23:008.8[facility] UNXUEBMYTCXL7723-15-24 00:23:03786Zbnfuwmi MhzklsyKMPOIRFBWDKJ4373-53-53 00:23:003.7[facility] UjztvcoXHNPLDQKHN1822-33-00 00:23:0036.3[facility] Eb EEBDXZCNVV8331-82-31 00:23:0011.6[facility] WpjejohNMBDTFVEPQ2839-64-99 00:23:00 4.47[facility] XwlruglRBCQZOTTNP4155-68-48 00:23:47074Komletsj HermannHEMATOLOGY 2015-12-21 00:23:0018.3[facility] DwhdtmiJTIGNAWHPH0767-12-01 00:23:0031.9[facility] NkfxhkkYOMILYWOMI8641-00-56 00:23:00 Test Item Value Reference Range Interpretation Comments MCH (test code = MCH) 25.9 pg 27.0-31.0 [facility] RmjwkloSWTPDBLSUH0262-74-25 00:23:0081.3[facility]annHEMATOLOGY 2015-12-21 00:23:008.0[facility] LphpdkkVPVYYECJZW1192-86-41 00:23:0016.4[facility] VusqafsYCORFOJFLX2786-34-70 00:23:000.1[facility] GeqcrreZJJQEEPTEI1233-17-00 00:23:000.8[facility] DojrdijXEOZDKNTUO9111-86-15 00:23:000.1[facility] XIERTURRER4506-94-58 00:23:0014.3[facility] GvxvpdvTDVCEOJGZT0094-25-60 00:23:00 80.0[facility] IvorcbjFHOXIZWGQJ5292-01-91 00:23:004.7[facility]annHEMATOLOGY 2015-12-21 00:23:002.4[facility] QjqujpiURCSXPNYSM3768-76-70 00:23:0013.1[facility] ZvoktucODUQQLLTMG4414-24-62 00:23:000.4[facility] RmspohjRMSVDYUFOJ2417-91-68 00:23:000.6[facility]annCHEM XAVBC8237-31-01 00:23:17212Vaaoxpiz [place] VPYIUMUAGCVF3882-03-28 00:23:0011.7[facility] WlflsovFNXWTKHGUYUS2114-96-53 00:23:10319Jjaaxuhk SsuiyssNBOAZURLEVKO7704-97-57 00:23:008[facility] MXQHYYUMSPQV7371-82-93 00:23:0095[facility] UnudsusFNSEHUIWQSFA0377-28-05 00:23:00 139[facility] NxueohvCOCNFQYRMHHJ4578-82-26 00:23:000.76[facility] AKCOQICPNCJN0926-02-14 00:23:0025[facility] YwavuzaBTAQCVZYPRSO2695-84-62 00:23:00 8.8[facility] PtcguimDZITJMLPUJPH1437-40-68 00:23:26848Qedvherf [place] IUYOMDCWAUFN8976-49-14 00:23:003.7[facility] XglbwuiABDKEISHVV8801-82-54 00:23:00 36.3[facility] CceqpngCVHXFCSRKP6537-85-37 00:23:0011.6[facility]annHEMATOLOGY 2015-12-21 00:23:004.47[facility] KrgnhhgIVYBFSTVOF2819-13-74 00:23:67458Uksxwyoq GyxlwgiSVOFUNAYBA1673-43-10 00:23:0018.3[facility] CntyinkHHNEWYVLSL0097-29-50 00:23:0031.9[facility] LjeassdKETNDGXDNF7615-30-52 00:23:00 Test Item Value Reference Range Interpretation Comments MCH (test code = MCH) 25.9 pg 27.0-31.0 [facility] WmvtaooHBRNQCEHOX0126-69-53 00:23:0081.3[facility]annHEMATOLOGY 2015-12-21 00:23:008.0[facility] LdjhfvcDZMXZLAWDP1091-26-38 00:23:0016.4[facility] OycssxsTZBCLYAIJG9065-58-99 00:23:000.1[facility] TmdyidkYAGJYDQTTH8451-59-58 00:23:000.8[facility] SjapdkiZRYNJPRZOL2597-15-15 00:23:000.1[facility] FRZBGFCWZN4162-87-48 00:23:0014.3[facility] PpciesdOSQLBGRPWA9162-77-31 00:23:00 80.0[facility] WcnxkikOJDTNKSWRO3650-39-69 [facility].7[facility] 2015-[facility]21 00:23:002.4[facility] [id number] 00:23:0013.1[facility] [id number] 00:23:000.4[facility] [id number] 00:23:000.6[facility] [id number] 23:17:00Negative (12/20/15 6:17 PM)[facility] [id number] 23:17:00Negative (12/20/15 6:17 PM)[facility] [id number] 23:17:00Negative (12/20/15 6:17 PM) [facility] [id number] 23:17:00Clear (12/20/15 6:17 PM)[facility] [id number] 23:17:00 Test Item Value Reference Range Interpretation Comments UA Spec Grav (test code = UA Spec 1.015 1 Grav) [facility] [id number] 23:17:00Yellow *NA*(12/20/15 6:17 PM) [facility] [id number] 23:17:000.2[facility] [id number] 23:17:00Performed (12/20/15 6:17 PM)[facility] [id number] 23:17:00Negative (12/20/15 6:17 PM)[facility] STOOL [...] Spec 1.015 1 Grav) [facility] [id number] 23:17:00Yellow *NA*(12/20/15 6:17 PM) [facility] [id number] 23:17:000.2[facility] [id number] 23:17:00Performed (12/20/15 6:17 PM)[facility] [id number] 23:17:00Negative (12/20/15 6:17 PM)[facility] STOOL 2015-12-20 23:17:00>=9.0 *ABN*(12/20/15 6:17 PM)[facility] STOOL 2015-12-20 23:17:00Negative *NA*(12/20/15 6:17 PM)[facility] STOOL 2015-12-20 23:17:00Trace *ABN*(12/20/15 6:17 PM)[facility] STOOL 2015-12-20 23:17:00Negative *NA*(12/20/15 6:17 PM)[facility]M 2015-12-20 23:17:00Negative (12/20/15 6:17 PM)[facility]
--- NOTE | 2020-12-09 14:55 | RAD REPORT ---
EXAM DESCRIPTION: Belle Karimi (2 Views)12/09/2020 2:05 pm CLINICAL HISTORY: Cough COMPARISON: July 2020 FINDINGS: The lungs appear clear of acute infiltrate. The heart is normal size IMPRESSION: No acute abnormalities displayed
[2020-12-09] MEDS ORDERED: KETOROLAC 30 MG/ML INJ ONE (15:45)
[2020-12-09 16:43] LABS: Urine Blood Negative (Negative); Urine Glucose Negative (Negative); Urine Protein Negative (Negative)
[2020-12-09] MEDS ORDERED: NA CHLORIDE 0.9% 1,000 ML ONE (17:05)
--- NOTE | 2020-12-09 17:06 | RAD REPORT ---
EXAM DESCRIPTION: CT - Chest For Pe Angio - 12/09/2020 4:55 pm CLINICAL HISTORY: Chest pain COMPARISON: July 2020 TECHNIQUE: Dynamically enhanced axial 3 mm thick images of the chest were obtained during administra tion of <100> mL Isovue 370 IV contrast. Coronal and oblique reconstruction images were generated and reviewed. Exam utilizes a protocol for optimal evaluation of pulmonary arterial tree. Maximum intensity projections 3D imaging was utilized All CT scans are performed using dose optimization technique as appropriate and may include automated exposure control or mA/KV adjustment according to patient size. FINDINGS: A pulmonary embolus is not seen. A thoracic aortic aneurysm is not noted. A pleural effusion is not seen. A pericardial effusion is not seen. A lung consolidation is not present. The wall of the esophagus appears mildly thickened IMPRESSION: Negative for a pulmonary embolism. All of the esophagus appears mildly thickened which may indicate pathology such as inflammation
--- NOTE | 2020-12-09 17:10 | ER ---
Nurse's Notes [facility] Name: Jaye Pérez Age: 30 yrs Sex: Female : 1990 Arrival Date: 12/09/2020 Time: 13:10 Bed 23 Private MD: Diana Linton K Diagnosis: Chest pain, unspecified;Esophagitis, unspecified Presentation: 12/09 13:47 Chief complaint: Patient states: Intermittent right shoulder pain, lasting a couple jl7 hours at a time, since Tuesday, hurts worse with movement, denies trauma, feels sore. Coronavirus screen: Client denies travel out of the [place] in the last 14 days. At this time, the client does not indicate any symptoms associated with coronavirus-19. Ebola Screen: No symptoms or risks identified at this time. Initial Sepsis Screen: Does the patient meet any 2 criteria? No. Patient's initial sepsis screen is negative. Does the patient have a suspected source of infection? No. Patient's initial sepsis screen is negative. Risk Assessment: Do you want to hurt yourself or someone else? Patient reports no desire to harm self or others. Onset of symptoms was December 07, 2020. Care prior to arrival: None. 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 - Social history:: Smoking status: Patient/guardian denies using tobacco, but has a distant history of tobacco abuse. Screenin:17 Abuse screen: Denies threats or abuse. Denies injuries from another. Nutritional ld1 screening: No deficits noted. Tuberculosis screening: No symptoms or risk factors identified. Fall Risk None identified. Assessment: 13:45 Reassessment: JENNIFER Goss in triage assessing pt. [facility] 15:17 General: Appears in no apparent distress. comfortable, Behavior is calm, cooperative, ld1 appropriate for age. Pain: Complains of pain in anterior aspect of right upper chest Pain radiates to right scapular area Pain currently is 8 out of 10 on a pain scale. Quality of pain is described as shooting, throbbing, Pain began 2-3 days ago. Is intermittent. Neuro: Level of Consciousness is awake, alert, obeys commands, Oriented to person, place, time, situation, Appropriate for age. Cardiovascular: Capillary refill < 3 seconds Patient's skin is warm and dry. Respiratory: Airway is patent Respiratory effort is even, unlabored, Respiratory pattern is regular, symmetrical, Breath sounds are clear bilaterally. GI: Abdomen is round non-distended. : No signs and/or symptoms were reported regarding the genitourinary system. EENT: No signs and/or symptoms were reported regarding the EENT system. Derm: No signs and/or symptoms reported regarding the dermatologic system. Musculoskeletal: No signs and/or symptoms reported regarding the musculoskeletal system. 17:37 Reassessment: Patient appears in no apparent distress at this time. No changes from ld1 previously documented assessment. Patient and/or family updated on plan of care and expected duration. Pain level reassessed. Vital Signs: 13:47 BP 135 / 85; Pulse 83; Resp 19; Temp 97.1(TE); Pulse Ox 100% on R/A; Weight 92.99 kg jl7 (R); Pain 7/10; 15:17 BP 132 / 82; Pulse 80; Resp 18; Pulse Ox 100% on R/A; Pain 8/10; ld1 17:37 BP 128 / 86; Pulse 76; Resp 18; Pulse Ox 100% on R/A; ld1 ED Course: 13:10 Patient arrived in ED. am2 13:10 Diana Linton MD is Private Physician. am2 13:47 Ana Paula Simon FNP-C [facility] kb 13:47 Chidi Rivera MD is Attending Physician. kb 13:50 Triage completed. jl7 13:50 Arm band placed on right wrist. jl7 13:52 Patient placed in waiting room, Patient notified of wait time. jl7 14:05 Chest Pa And Lat (2 Views) XRAY In Process Unspecified. EDMS 15:08 Isabel Valladares, MARCIA is Primary Nurse. ld1 15:17 Patient has correct armband on for positive identification. Placed in gown. Bed in low ld1 position. Side rails up X2. secured entrance monitor on. Pulse ox on. NIBP on. 15:17 No provider procedures requiring assistance completed. Patient maintains SpO2 ld1 saturation greater than 95% on room air. 15:54 Initial lab(s) drawn, by me, sent to lab. Inserted saline lock: 20 gauge in left dh3 antecubital area, using aseptic technique. Blood collected. 15:59 D-Dimer Sent. ld1 16:55 CT Chest For PE Angio In Process Unspecified. EDMS 17:23 Urine --Ancillary (enter results) Sent. ld1 17:39 IV discontinued, intact, bleeding controlled, No redness/swelling at site. ld1 Administered Medications: 15:59 Drug: Ketorolac 30 mg Route: IVP; Site: left antecubital; ld1 16:15 Follow up: Response: No adverse reaction ld1 17:23 Not Given (Patient Refused): NS 0.9% 1000 ml IV at 1000 ml once ld1 Outcome: 17:09 Discharge ordered by . kb 17:39 Discharged to home ambulatory. ld1 17:39 Condition: stable 17:39 Discharge instructions given to patient, Instructed on discharge instructions, follow up and referral plans. medication usage, Demonstrated understanding of instructions, follow-up care, medications. 17:40 Patient left the ED. ld1 Signatures: Dispatcher [employer] EDMS Ana Paula Simon, PORTABLE POWER TOOL REPAIRER-C PORTABLE POWER TOOL REPAIRER-Len Leon, RN RN jl7 Vicenta Sher Deanna [facility] Isabel Valladares RN RN ld1
--- NOTE | 2020-12-09 17:11 | EDPHYS ---
Physician Documentation [facility] Name: Jaye Pérez Age: 30 yrs Sex: Female : 1990 Arrival Date: 12/09/2020 Time: 13:10 Bed 23 Private MD: Diana Linton K ED Physician Chidi Rivera HPI: 12/09 19:26 This 30 yrs old Female presents to ER via Ambulatory with complaints of Chest kb Pain, Cough, Sinus Congestion. 19:26 The patient or guardian reports chest pain that is located primarily in the anterior kb aspect of right upper chest and right scapular area. The pain radiates to right back. Associated signs and symptoms: Pertinent positives: shortness of breath. The chest pain is described as aching. Duration: The patient or guardian reports a single episode. Modifying factors: The symptoms are alleviated by nothing. the symptoms are aggravated by movement. Severity of pain: At its worst the pain was moderate in the emergency department the pain is unchanged. The patient has not experienced similar symptoms in the past. The patient has not recently seen a physician. Pt reports pain to right upper chest and back that started 4 days ago. States the pain is worse with movement or lifting. STates she feels herself breathing heavier lately, but not like an asthma attack. 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 - Social history:: Smoking status: Patient/guardian denies using tobacco, but has a distant history of tobacco abuse. ROS: 19:24 Constitutional: Negative for fever, chills, and weight loss. kb 19:24 Cardiovascular: Positive for chest pain, with movement, of the right scapular area and anterior aspect of right upper chest. 19:24 All other systems are negative. 19:25 Respiratory: Positive for shortness of breath. kb Exam: 19:25 Constitutional: This is a well developed, well nourished patient who is awake, alert, kb and in no acute distress. Head/Face: Normocephalic, atraumatic. ENT: Moist Mucous membranes Cardiovascular: Regular rate and rhythm with a normal S1 and S2. No gallops, murmurs, or rubs. No pulse deficits. Respiratory: Respirations even and unlabored. No increased work of breathing, no retractions or nasal flaring. Abdomen/GI: Soft, non-tender. No distention Skin: Warm, dry with normal turgor. Normal color. MS/ Extremity: Pulses equal, no cyanosis. Neurovascular intact. Full, normal range of motion. Neuro: Awake and alert, GCS 15, oriented to person, place, time, and situation. Moves all extremities. Normal gait. Psych: Awake, alert, with orientation to person, place and time. Behavior, mood, and affect are within normal limits. 19:25 Chest/axilla: Palpation: tenderness, that is mild, of the anterior aspect of right upper chest and right scapular area, that totally reproduces the patient's complaints. Vital Signs: 13:47 BP 135 / 85; Pulse 83; Resp 19; Temp 97.1(TE); Pulse Ox 100% on R/A; Weight 92.99 kg jl7 (R); Pain 7/10; 15:17 BP 132 / 82; Pulse 80; Resp 18; Pulse Ox 100% on R/A; Pain 8/10; ld1 17:37 BP 128 / 86; Pulse 76; Resp 18; Pulse Ox 100% on R/A; ld1 MDM: 13:53 Patient medically screened. kb 17:08 Data reviewed: vital signs, nurses notes. Data interpreted: Pulse oximetry: on room air kb is 100 %. Interpretation: normal. Counseling: I had a detailed discussion with the patient and/or guardian regarding: the historical points, exam findings, and any diagnostic results supporting the discharge/admit diagnosis, lab results, radiology results, the need for outpatient follow up, a family practitioner, to return to the emergency department if symptoms worsen or persist or if there are any questions or concerns that arise at home. 12/09 15:21 Order name: D-Dimer; Complete Time: 16:33 kb 12/09 16:43 Order name: Urine Dipstick-Ancillary; Complete Time: 16:47 EDMS 12/09 13:47 Order name: Chest Pa And Lat (2 Views) XRAY; Complete Time: 15:01 kb 12/09 16:31 Order name: CT Chest For PE Angio; Complete Time: 17:08 kb 12/09 16:44 Order name: Urine --Ancillary (enter results) bd 12/09 16:44 Order name: Urine --Ancillary EDMS 12/09 15:21 Order name: EKG; Complete Time: 15:21 kb 12/09 15:21 Order name: EKG - Nurse/Tech; Complete Time: 15:36 kb Administered Medications: 15:59 Drug: Ketorolac 30 mg Route: IVP; Site: left antecubital; ld1 16:15 Follow up: Response: No adverse reaction ld1 17:23 Not Given (Patient Refused): NS 0.9% 1000 ml IV at 1000 ml once ld1 Disposition: 18:32 Co-signature as Attending Physician, Chidi Rivera MD. rn Disposition Summary: 12/09/20 17:09 Discharge Ordered Location: Home kb Condition: Stable kb Diagnosis - Chest pain, unspecified kb - Esophagitis, unspecified kb Followup: kb - With: Emergency Department - When: As needed - Reason: Worsening of condition Followup: kb - With: Private Physician - When: 2 - 3 days - Reason: Recheck today's complaints, Continuance of care, Re-evaluation by your physician Discharge Instructions: - Discharge Summary Sheet kb - Nonspecific Chest Pain, Adult, [id number] kb Forms: - Medication Reconciliation Form kb - Thank You Letter kb - Antibiotic Education kb - Prescription Opioid Use kb Prescriptions: - Protonix 40 mg Oral Tablet - take 1 tablet by ORAL route once daily; 30 tablet; Refills: 0, Product kb Selection Permitted Signatures: Dispatcher [employer] EDCO Ana Paula Simon, ONCOLOGY TRANSPLANT NETWORK MANAGER-C ONCOLOGY TRANSPLANT NETWORK MANAGER-Ckb Chidi Rivera MD MD rn Leal, Jahala RN RN jl7 Isabel Valladares, RN RN ld1
[2020-12-09 17:52] VITALS: TEMP 97.1; O2SAT 100
[2020-12-09 17:59] VITALS: BP 128/86
--- NOTE | 2020-12-10 16:35 | EKG ---
Test Date: 2020-12-09 Test Time: 15:28:27 [employer] Director: ELIZABETH MEASUREMENT RESULTS: Intervals: Rate: 76 PA: 128 QRSD: 78 QT: 380 QTc: 427 [place]: P: 34 PA: 128 QRS: 37 T: 4 INTERPRETIVE STATEMENTS: Normal sinus rhythm Normal ECG Compared to ECG 08/05/2020 21:36:52 Sinus tachycardia no longer present Electronically Signed On 12-10-20 16:33:08 CDT by Tommy Duarte
== END 2020-12-09 17:40 | disposition home or self-care (01) ==
LOC: ER 13:09
DX: K20.90 Esophagitis, unspecified without bleeding (principal); Z88.1 Allergy status to other antibiotic agents
CPT/HCPCS: 36415; 71046; 71275; 81003; 81025; 82565; 85379; 93005; 96374; 99285; J7030; Q9967

== ENCOUNTER 2020-12-18 11:37 | Emergency (ER) | payer SELFPAY ==
--- OUTSIDE RECORDS SUMMARY | 2020-12-18 11:44 | XMS REPORT | Continuity of Care Document ---
:1990 Author Organization 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 07-12 [facility]i disease disease 00:00: st 00 Anxiety Anxiety Disease Active 2016-06 [place] 07-12 Methodi 00:00: st 00 Iron Iron Disease Active 2016-06 [place] deficiency deficiency 07-12 Me thodi anemia anemia 00:00: st 00 Dehydratio Dehydratio Disease Active 2016-06 H hilaria n n 1-24 Methodi 00:00: st 00 Tachycardi Tachycardi Disease Active 2016-06 H hilaria a a - Methodi 00:00: st 00 INTRACTABL Diagnosis Active 2015-062016-04-20 Memoria E VOMITING 16:37:00 l 00:00: [place] INTRACTABL 00 E VOMITING Active 04/08/2016 [facility] Eb ABDOMINAL Diagnosis Active 2015-062016-04-08 Memoria PAIN 0 15:58:00 l 00:00: [place] ABDOMINAL 00 PAIN Active 04/08/2016 [facility] Eb VOMITING Diagnosis Active 2015-12-21 M emoria 12-20 19:15:00 l VOMITING 00:00: Garry n 00 Active 12/21/2015 [facility] Eb INTRATABLE Diagnosis Active 2016-01-15 Memoria ABD 12-20 12:01:00 l PAIN,VOMIT 00:00: Garry n ING,DEHYDR INTRATABLE 00 ATION ABD PAIN,VOMIT ING,DEHYDR ATION Active 12/21/2015 [facility] [place] VOMITING/S Diagnosis Active 2016-01-12 Memoria TOMACH 12-19 09:13:00 l PAIN 00:00: Eb VOMITING/S 00 TOMACH PAIN Active 12/20/2015 [facility] Gastric Problem Active 2016-04-14 Kehinde batsheva ulcer 00:11:43 l (disorder) Gastric Her pelaez ulcer (disorder) Active Problem 04/14/2016 [facility] CYCLICAL Diagnosis Active 2016-04-20 M emoria VOMITING, 16:37:00 l INTRACTABL CYCLICAL He rmann E VOMITING, INTRACTABL E Active [facility] History of Past Illness Condition Condition Condition Status Onset Resolution Last Treating Co mments Source Name Details Category Date Date Treatment Clinician Date Discharge Problem 2015-062016-04-14 2016-04-14 Memoria Diagnosis: 0 00:11:43 00:11:43 l Abdominal 05:00: Eb pain, Discharge 00 acute, Diagnosis: epigastric Abdominal pain, acute, epigastric 04/08/2016 04/14/2016 [facility] Discharge Problem 2015-12-24 2015-12-24 Memoria Diagnosis: 12-19 00:19:47 00:19:47 l Leukocytos 05:00: Garry n is Discharge 00 Diagnosis: Leukocytos is 12/20/2015 12/24/2015 [facility] Discharge Problem 2015-12-24 2015-12-24 Memoria Diagnosis: 12-19 00:19:47 00:19:47 l Abdominal 05:00: Eb pain Discharge 00 Diagnosis: Abdominal pain 12/20/2015 12/24/2015 [facility] Allergies, Adverse Reactions, Alerts Allergy Allergy Status Severity Reaction(s) Onset Inactive Treating Comm ents Source Name Type Date Date Clinician Bina Dennis Active GI 2016-06 Nausea & [place] xacin ty to Intolerance 07-04 Vomiting Met hodi adverse 00:00: st reaction 00 s to drug Social History Social Habit Start Date Stop Date Quantity Comments Source Social History 2016-04-08 2016-04-08 [facility] ermann 22:45:24 22:45:24 Sex Assigned At [address] [facility] ethodist 00:00:00 00:00:00 Medications Ordered Filled Start [...] 12 1200 mL, 0 [Carafate] Refill(s), Pharmacy: [facility] Sucralfate 2015-06 Yes 1 gm = 10 Me moria 100 MG/ML 0-30 mL, PO, l Oral 16:50: QID, # [place] Suspension 12 1200 mL, 0 [Carafate] Refill(s), Pharmacy: [facility] dicyclomine 2015-06 Yes 20 mg = 1 M emoria 20 mg oral 0-30 tab, PO, l tablet 16:50: QID, # 56 Garry n 00 tab, 1 Refill(s), Pharmacy: [facility] gabapentin 2015-06 Yes 300 mg = 1 M emoria 300 MG Oral 0-30 cap, PO, l Capsule 16:50: TID, # 30 Verna nn [Neurontin] 00 cap, 1 Refill(s), Pharmacy: [facility] dicyclomine 2015-06 Yes 20 mg = 1 M emoria 20 mg oral 0-30 tab, PO, l tablet 16:50: QID, # 56 Garry n 00 tab, 1 Refill(s), Pharmacy: [facility] gabapentin 2015-06 Yes 300 mg = 1 M emoria 300 MG Oral 0-30 cap, PO, l Capsule 16:50: TID, # 30 Verna nn [Neurontin] 00 cap, 1 Refill(s), Pharmacy: [facility] Protonix 2015-06 No Notes: For Mem [...] Memoria 0-29 (Same as: l 02:00: Bentyl) [place] 00 Sucralfate 2015-06 No Notes: Memor ia 100 MG/ML 0-29 Enteral l Oral 02:00: feeds may [place] Suspension 00 interfere [Carafate] with the absorption of this medication . Shake well. Take 1 hr before or 2 hrs after antacids, dairy pdt, minerals & meals. (Same As: Carafate) Bentyl 2015-06 No Notes: Memoria 0-29 (Same as: l 02:00: Bentyl) [place] 00 Sucralfate 2015-06 No Notes: Memor ia 100 MG/ML 0-29 Enteral l Oral 02:00: feeds may [place] Suspension 00 interfere [Carafate] with the absorption of this medication . Shake well. Take 1 hr before or 2 hrs after antacids, dairy pdt, minerals & meals. (Same As: Carafate) Reglan 2015-06 No Notes: Memoria 0-28 (Same as: l 23:00: Reglan) [place] 00 Reglan 2015-06 No Notes: Memoria 0-28 (Same as: l 23:00: Reglan) Eb 00 Acetaminoph 2015-06 No Notes: Do M emoria en 0-28 not exceed l 22:41: 4 gm/day. Eb 00 (Same as: Tylenol) Acetaminoph 2015-06 No Notes: Do M emoria en 0-28 not exceed l 22:41: 4 gm/day. Eb 00 (Same as: Tylenol) pantoprazol 2015-06 No Notes: Kehinde batsheva e 0-28 Tablet l 21:30: should not [place] 00 be chewed or crushed. (Same as: Protonix) pantoprazol 2015-06 No Notes: Kehinde batsheva e 0-28 Tablet l 21:30: should not Eb 00 be chewed or crushed. (Same as: Protonix) Sucralfate 2015-06 No Notes: Memor ia 100 MG/ML 0-28 Enteral l Oral 18:00: feeds may [place] Suspension 00 interfere [Carafate] with the absorption [...] 0-28 Enteral l Oral 18:00: feeds may [place] Suspension 00 interfere [Carafate] with the absorption of this medication . Shake well. Take 1 hr before or 2 hrs after antacids, dairy pdt, minerals & meals. (Same As: Carafate) gabapentin 2015-06 No Notes: Memor ia 300 MG Oral 0-28 (Same as: l Capsule 18:00: Neurontin) Herm bean [Neurontin] 00 Zofran ODT 2015-06 No Notes: Memor ia 0-28 (Same as: l 15:58: Zofran [place] 00 ODT) Zofran ODT 2015-06 No Notes: Memor ia 0-28 (Same as: l 15:58: Zofran [place] 00 ODT) influenza 2015-06 No Notes: Memori [...] Memoria 0-28 Tablet l 12:30: should not [place] 00 be chewed or crushed. (Same as: [...] e 0-28 IV push l 12:30: reconstitu [place] 00 te with 10 ml 0.9% sodium chloride and push over 2 minutes. (Same as: Protonix) Protonix 2015-06 No Notes: For Mem oria 0-28 IV push l 09:43: reconstitu [place] 00 te with 10 ml 0.9% sodium chloride and push over 2 minutes. (Same as: Protonix) Protonix 2015-06 No Notes: For Mem oria 0-28 IV push l 09:43: reconstitu Eb 00 te with 10 ml 0.9% sodium chloride and push over 2 minutes. (Same as: Protonix) Phenergan 2015-06 No Notes: Memori a 0-28 (Same as: l 00:28: Phenergan) [place] 00 Zofran 2015-06 No Notes: Memoria 0-28 (Same as: l 00:28: Zofran) Eb 00 MEDICATION WASTE Product Size: 4 mg Product Wasted: ___ mg Phenergan 2015-06 No Notes: Memori a 0-28 (Same as: l 00:28: Phenergan) [place] 00 Zofran 2015-06 No Notes: Memoria 0-28 [...] a 0-27 (Same as: l 23:20: Motrin) [place] 00 "Do Not Crush" Take with food. [...] Duration: 30 day, Stop date: 05/08/16 16:34:00 [employer] Ondansetron 2015-06 No Notes: Kehinde batsheva 0-27 (Same as: l 21:35: Zofran) [place] 00 MEDICATION WASTE Product Size: 4 mg [...] Duration: 30 day, Stop date: 05/08/16 16:34:00 [employer] Ondansetron 2015-06 No Notes: Kehinde batsheva 0-27 (Same as: l 21:35: Zofran) [place] 00 MEDICATION WASTE Product Size: 4 mg Product Wasted: ___ mg Zofran 2015-06 No 4 mg, Memoria 0-27 Route: l 20:22: IVP, Drug [place] 00 form: INJ, ONCE, Dosing Weight 88.636, kg, Priority: STAT, Start date: 04/08/16 15:22:00 CDT, Stop date: 04/08/16 15:22:00 CDT Zofran 2015-06 No 4 mg, Memoria 0-27 Route: l 20:22: IVP, Drug [place] 00 form: INJ, ONCE, Dosing Weight 88.636, kg, Priority: STAT, Start date: 04/08/16 15:22:00 CDT, Stop date: 04/08/16 15:22:00 CDT gabapentin 2015-06 No 300 mg = 1 M emoria 300 MG Oral 0-27 cap, PO, l Capsule 19:52: TID, # 30 Verna nn [Neurontin] 00 cap, 1 Refill(s) Promethazin 2015-06 No 25 mg = 1 M emoria e 0-27 supp, SC, l Hydrochlori 19:52: Q6H, PRN He rmbean [...] = 1 M emoria e 0-27 supp, SC, l Hydrochlori 19:52: Q6H, PRN He rmann [...] e 0-27 (Same as: l 16:05: Protonix) [place] 00 Metoclopram 2015-06 No Notes: Kehinde batsheva rebecca 0-27 (Same as: l 16:05: Reglan) Saline 2015-06 No Notes: Memoria Flush 0.9% 0-27 (Same as: l 16:05: BD Eb 00 Posiflush) Sodium 2015-06 No 1,000 mL, Memori a Chloride 0-27 2,000 l 0.154 16:05: ml/hr, [place] MEQ/ML 00 Infuse Injectable Over: 30 Solution minutes, Route: IV, 1,000, Drug form: INJ, ONCE, Priority: STAT, Dosing Weight 88.636 kg, Start date: 04/08/16 11:05:00 CDT, Duration: 1 doses or times, Stop date: 04/08/16 11:05:00 CDT Hydromorpho 2015-06 No Notes: Kehinde batsheva ne 0-27 Same as: l 16:05: Dilaudid Eb 00 pantoprazol 2015-06 No Notes: Kehinde batsheva [...] ne 0-27 Same as: l 16:05: Dilaudid [place] 00 Remove old No Remove Memor ia Nicotine 7-14 old l patch 02:00: Nicotine [place] before patch applying before Q24H applying Q24H, ONCE, Drug form: MISC, Route: N/A, Daily, 12/24/15 21:00:00 CDT, Duration: 30 day, Stop date: 01/23/16 9:00:00 CDT Remove old No Remove Memor ia Nicotine 7-14 old l patch 02:00: Nicotine [place] before patch applying before Q24H applying Q24H, ONCE, Drug form: MISC, Route: N/A, Daily, 12/24/15 21:00:00 CDT, Duration: 30 day, Stop date: 01/23/16 9:00:00 CDT Sucralfate Yes 1 gm = 10 Me moria 100 MG/ML 7-13 mL, PO, l Oral 22:14: QID, # [place] Suspension 00 1200 mL, 0 [Carafate] Refill(s), Pharmacy: [facility] [id number] [facility] [employer] pantoprazol Yes 40 mg = 1 M emoria e 40 mg 7-13 tab, PO, l oral 22:14: BID-Before [place] enteric 00 Meals, # coated 60 tab, 0 tablet Refill(s), Pharmacy: [place] [id number] [facility] [employer] Sucralfate Yes 1 gm = 10 Me moria 100 MG/ML 7-13 mL, PO, l Oral 22:14: QID, # Eb Suspension 00 1200 mL, 0 [Carafate] Refill(s), Pharmacy: [place] [id number] [facility] [employer] pantoprazol Yes 40 mg = 1 M emoria e 40 mg 7-13 tab, PO, l oral 22:14: BID-Before Eb enteric 00 Meals, # coated 60 tab, 0 tablet Refill(s), Pharmacy: [place] [id number] [facility] [employer] Protonix No Notes: Memoria 7-13 Tablet l 21:30: should not [place] 00 be chewed or crushed. (Same as: Protonix) Protonix No Notes: Memoria 7-13 Tablet l 21:30: should not [place] 00 be chewed or crushed. (Same as: Protonix) potassium No Notes: Memori a chloride 7-13 (Same as: l 14:52: K-Dur 20) [place] 00 "Do Not Crush" With food and [...] 7-13 not exceed l 03:53: 4 gm/day. [place] 00 (Same as: Tylenol) Nicotine No Notes: Memoria 7-13 (Same as: l 00:42: Habitrol) [place] 00 "Remove old patch before applicatio n [...] 7-12 Rate: 20 l 0.154 17:54: ml/hr, [place] MEQ/ML 00 Infuse Injectable over: 50 Solution hr, Route: IV, Dosing Weight 86.364 kg, Total Volume: 1,000, Start date: 12/23/15 12:54:00 CDT, Duration: 2 hr, Stop date: 12/23/15 14:53:00 CDT Sodium 2015- No 1,000 mL, Memori a Chloride 7-12 Rate: 20 l 0.154 17:54: ml/hr, Eb [...] 7-12 Rate: 10 l 0.154 01:36: ml/hr, [place] MEQ/ML 00 Infuse Injectable over: 10 Solution [...] e 7-11 Same as: l 14:00: Protonix) Eb pantoprazol 0 No Notes: Kehinde batsheva e 7-11 Same as: l 14:00: Protonix) [place] 00 Flagyl 0 No Notes: Memoria 7-11 (Same as: l 02:00: Flagyl) [place] 00 Avoid alcohol. Ciprofloxac No Notes: Do M emoria in 12-21 not l 02:00: refrigerat Eb 00 e Flagyl No Notes: Memoria 7-11 (Same as: l 02:00: Flagyl) Eb Avoid alcohol. Ciprofloxac No Notes: Do M emoria in 12-21 not l 02:00: refrigerat Eb e Phenergan No Notes: Memori a 7-11 (Same as: l 01:22: Phenergan) [place] 00 Sodium No 1,000 mL, Memori a [...] Notes: Memoria 7-11 (Same l 01:22: as:MORPhin [place] 00 e Sulfate) Phenergan No Notes: Memori a 7-11 (Same as: l 01:22: Phenergan) Eb 00 Sodium No 1,000 mL, Memori a Chloride 7-11 Rate: 125 l 0.154 01:22: ml/hr, [place] MEQ/ML 00 Infuse Injectable over: 8 Solution [...] Notes: Memoria 7-10 (Same l 22:05: as:MORPhin [place] 00 e Sulfate) Morphine No Notes: Memoria 7-10 (Same l 22:05: as:MORPhin Eb 00 e Sulfate) Morphine No Notes: Memoria 7-10 (Same l 21:04: as:MORPhin [place] 00 e Sulfate) Promethazin No Notes: Kehinde batsheva e 7-10 (Same as: l 21:04: Phenergan) [place] 00 Saline No Notes: Memoria Flush 0.9% 7-10 (Same as: l 21:04: BD Eb 00 Posiflush) Sodium No 1,000 mL, Memori a Chloride 7-10 2,000 l 0.154 21:04: ml/hr, [place] MEQ/ML 00 Infuse Injectable Over: 30 Solution minutes, Route: IV, 1,000, Drug form: INJ, ONCE, Priority: STAT, Dosing Weight 88.636 kg, Start date: 12/21/15 16:04:00 CDT, Duration: 1 doses or times, Stop date: 12/21/15 16:04:00 CDT Morphine No Notes: Memoria 7-10 (Same l 21:04: as:MORPhin Eb 00 e Sulfate) Promethazin No Notes: Kehinde batsheva e 7-10 (Same as: l 21:04: Phenergan) [place] 00 Saline No Notes: Memoria Flush 0.9% 7-10 (Same as: l 21:04: BD Eb 00 Posiflush) Sodium No 1,000 mL, Memori a Chloride 7-10 2,000 l 0.154 21:04: ml/hr, [place] MEQ/ML 00 Infuse Injectable Over: 30 Solution minutes, Route: IV, 1,000, Drug form: INJ, ONCE, Priority: STAT, Dosing Weight 88.636 kg, Start date: 12/21/15 16:04:00 CDT, Duration: 1 doses or times, Stop date: 12/21/15 16:04:00 CDT Ondansetron Yes 4 mg = 1 Me moria 4 MG Oral 7-10 tab, PO, l Tablet 05:00: BID, X 5 [place] [Zofran] 00 day, # 10 tab, 0 Refill(s) Ondansetron Yes 4 mg = 1 Me moria 4 MG Oral 7-10 tab, PO, l Tablet 05:00: BID, X 5 [place] [Zofran] 00 day, # 10 tab, 0 [...] (Same as: l 03:35: Reglan) Eb 00 Bentyl No Notes: Memoria 7-10 (Same as: l 03:35: Bentyl) [place] 00 Reglan No Notes: Memoria 7-10 (Same as: l 03:35: Reglan) Eb GI cocktail No Notes: Kehinde batsheva 7-10 G.I. l 02:27: Cocktail = Eb antacid with simethicon e 22.5 mL - lidocaine viscous 7.5 mL GI cocktail No Notes: Kehinde batsheva 7-10 G.I. l 02:27: Cocktail = Eb 00 antacid with simethicon e 22.5 mL - lidocaine viscous 7.5 mL Morphine 2015-0 No 4 mg, Memoria 7-10 Route: l 00:36: IVP, Drug [place] 00 form: INJ, ONCE, Dosing Weight 87.727, kg, Priority: STAT, Start date: 12/20/15 19:36:00 CDT, Stop date: 12/20/15 19:36:00 CDT Morphine 2015-0 No 4 mg, Memoria 710 Route: l 00:36: IVP, Drug form: INJ, ONCE, Dosing Weight 87.727, kg, Priority: STAT, Start date: 12/20/15 19:36:00 CDT, Stop date: 12/20/15 19:36:00 CDT Ondansetron No Notes: Kehinde batsheva 12-19 (Same as: l 23:37: Zofran) [place] 00 MEDICATION WASTE Product Size: 4 mg [...] 12-19 (Same as: l 23:37: BD Eb 00 Posiflush) Immunizations Ordered Immunization Filled Immunization Date Status Commen ts Source Name Name Pneumococcal 2017-05-06 Completed [facility] Conjugate 13-Valent 00:00:00 Metho dist Vital Signs Vital Name Observation Time Observation Value Comments Source Respitory Rate 2016-04-11 13:00:00 Memori al Eb Temperature Oral (F) 2016-04-11 13:00:00 98 F [facility] Eb Systolic (mm Hg) 2016-04-11 13:00:00 Kehinde rial Eb Diastolic (mm Hg) 2016-04-11 13:00:00 Mem orial [place] Heart Rate 2016-04-11 13:00:00 [facility] Eb Respitory Rate 2016-04-11 09:20:00 Memori al Eb Temperature Oral (F) 2016-04-11 09:20:00 97.4 F [facility] Eb Heart Rate 2016-04-11 09:20:00 [facility] [place] Systolic (mm Hg) 2016-04-11 09:20:00 Kehinde rial [place] Diastolic (mm Hg) 2016-04-11 09:20:00 Mem orial [place] Temperature Oral (F) 2016-04-11 04:55:00 98.1 F [facility] Eb Systolic (mm Hg) 2016-04-11 04:55:00 Kehinde rial [place] Diastolic (mm Hg) 2016-04-11 04:55:00 Mem orial Eb Heart Rate 2016-04-11 04:55:00 [facility] Eb Respitory Rate 2016-04-11 04:55:00 Memori al Eb Height 2016-04-08 22:42:00 162.56 cm [facility] [place] Weight 2016-04-08 22:42:00 [facility] Eb BMI Calculated 2016-04-08 22:42:00 Memori al Eb Height 2016-04-08 15:37:00 162.56 cm [facility] [place] Weight 2016-04-08 15:37:00 [facility] [place] BMI Calculated 2016-04-08 15:37:00 Memori al [place] Systolic (mm Hg) 2015-12-24 21:00:00 Kehinde rial [place] Diastolic (mm Hg) 2015-12-24 21:00:00 Mem orial [place] Temperature Oral (F) 2015-12-24 21:00:00 98.1 F [facility] Eb Heart Rate 2015-12-24 21:00:00 [facility] [place] Respitory Rate 2015-12-24 21:00:00 Memori al Eb Systolic (mm Hg) 2015-12-24 17:00:00 Kehinde rial [place] Diastolic (mm Hg) 2015-12-24 17:00:00 Mem orial [place] Respitory Rate 2015-12-24 17:00:00 Memori al Eb Heart Rate 2015-12-24 17:00:00 [facility] Eb Temperature Oral (F) 2015-12-24 17:00:00 97.8 F [facility] Eb Temperature Oral (F) 2015-12-24 13:00:00 97.4 F [facility] Eb Heart Rate 2015-12-24 13:00:00 [facility] Eb Systolic (mm Hg) 2015-12-24 13:00:00 Kehinde rial [place] Diastolic (mm Hg) 2015-12-24 13:00:00 Mem orial [place] Respitory Rate 2015-12-24 13:00:00 Memori al [place] Height 2015-12-22 02:10:00 162.56 cm [facility] [place] BMI Calculated 2015-12-22 02:10:00 Memori al Eb Weight 2015-12-22 02:10:00 [facility] Eb Height 2015-12-21 20:41:00 162.56 cm Memorial Eb BMI Calculated 2015-12-21 20:41:00 Memori al [place] Weight 2015-12-21 20:41:00 [facility] [place] Heart Rate 2015-12-21 04:57:00 [facility] [place] Temperature Oral (F) 2015-12-21 04:57:00 98.1 F [facility] [place] Respitory Rate 2015-12-21 04:57:00 Memori al [place] Systolic (mm Hg) 2015-12-21 04:57:00 Kehinde rial Eb Diastolic (mm Hg) 2015-12-21 04:57:00 Mem orial [place] Weight 2015-12-20 21:28:00 [facility] Eb Temperature Oral (F) 2015-12-20 21:28:00 97.9 F [facility] [place] Respitory Rate 2015-12-20 21:28:00 Jackson lee [place] Systolic (mm Hg) 2015-12-20 21:28:00 Kehinde mae Eb Diastolic (mm Hg) 2015-12-20 21:28:00 Mem bronwyn [place] Heart Rate 2015-12-20 21:28:00 [facility] Procedures Procedure Date / Time Performed Performing Clinician [facility] e Tonsillectomy [facility] Plan of Care Planned Activity Planned Date Details Comments Source Future Scheduled 2021-01-11 INFLUENZA VACCINE [place] [facility] 00:00:00 [code = INFLUENZA VACCINE] Future Scheduled 2010 Screening for [facility] 00:00:00 malignant neoplasm of cervix (procedure) [code = 346115548] Future Scheduled 2001 COVID-19 VACCINE (1) Amelia ston [facility] 00:00:00 [code = COVID-19 VACCINE (1)] Encounters Start End Encounter Admission Attending Care Care Encounter Source Date/Time Date/Time Type Type Clinicians Facility Department ID 2020-11-15 2020-11-15 Refill JAQUAN Plunkett [id number] 00:00:00 00:00:00 Miya Boogie [id number] [facility] [id number] Professio [phone] nal [facility] 2020-09-04 2020-09-04 Orders Doctor MILO [id number] 00:00:00 00:00:00 Only Unassigned, JEANIE [id number] [place] [facility] [phone] [id number] 2020-09-02 2020-09-02 Patient JAQUAN Dash [id number] 00:00:00 00:00:00 Outreach Abiel DUMONT [id number] [facility] [id number] PAVILLION [id number] [id number] 2020-09-02 2020-09-02 Telephone JAQUAN Plunkett [id number] 00:00:00 00:00:00 Miya Boogie [id number] [place] [id number] Professio [phone] nal 085 [facility] 2020-08-15 2020-08-15 Office JAQUAN Plunkett [id number] 15:09:23 15:39:23 Visit Miya Boogie [id number] [facility] [id number] Professio [phone] nal [address] [place] [address] 2016-04-08 2016-04-11 Outpatient White, [facility] MH[facility] [id number] 10:34:00 10:50:00 Janeana Redwater 2016-04-08 2016-04-11 Outpatient White, [facility]PL [facility] [id number] 10:34:00 10:50:00 Janeana Redwater 2015-12-21 2015-12-24 Outpatient White, [facility]PL [facility]PL [id number] 15:38:00 19:08:00 Janeana Redwater 2015-12-21 2015-12-24 Outpatient White, [facility]PL [facility]PL [id number] 15:38:00 19:08:00 Janeana Redwater 2015-12-20 2015-12-21 Outpatient Carolinecain, [facility]PL [facility] [id number] 16:20:00 00:07:00 Siddharth 00 Cas 2015-12-20 2015-12-21 Outpatient Carolinecain, [facility] [id number] 16:20:00 00:07:00 Siddharth 00 Cas Results Test Description Test Time Test Comments Results Result Comments Source HEMATOLOGY 2016-04-11 08:44:00 Test Item Value Reference Range Interpretation Comme nts MCH (test code = MCH) 27.1 pg 27.0-31.0 [facility] TbxbhcqVKUUXPAOLK7453-41-70 08:44:0017.4[facility] 2016-04-11 08:44:41951Aaxpahno GsioagtVSDDIENRIXWK8555-95-58 08:44:009.9[facility] KuavdzsAKNXWIXBGMGD2637-93-57 08:44:99593Banimwqz VdehghaGDNPGEZXEZYV7330-82-95 08:44:003.9[facility] HgfdzbqQIRLHCCWKZWG4068-98-20 08:44:62199Tpwlorwv Eb PWHTVFTWLEFD0897-08-34 08:44:13153Lbbdwicp UuxcqkwTRDHDDHRHCXP9296-45-03 08:44:007.8[facility] JufvdexMBMAUXKGNBOQ3803-05-08 08:44:0030[facility] [place] VEXYIOYLHHYN7304-70-94 08:44:48915Otcweoxa QmcjtoaWUUXMLLYVEWR2719-55-09 08:44:002[facility] UkaaoyzLEZVSQWYLNOY4340-51-30 08:44:000.67[facility] Eb BSXJFQSHYC3089-56-69 08:44:0010.1[facility] LmhejqxLMZZVFPLGD7544-38-93 08:44:00 3.73[facility] JdvgflqVEGJWTVPXK4565-63-29 08:44:0081.8[facility] 2016-04-11 08:44:008.7[facility] XthlunqYVULXTKTNB8551-38-15 08:44:0030.5[facility] YnswiygGIWJZLYPVP7072-21-22 08:44:009.0[facility] QnzxoxlFUQGRURTTK3815-03-75 08:44:0033.2[facility] WkvcjkrJNULZHRGRT0814-25-64 08:44:00 Test Item Value Reference Range Interpretation Comments MCH (test code = MCH) 27.1 pg 27.0-31.0 [facility] KcjbvrfRFJDCHNBSX0145-88-75 08:44:0017.4[facility] 2016-04-11 08:44:53836Pnbrpcpo JyukylnVLLQDMFJGVEA5014-58-52 08:44:009.9[facility] YiecwdfXTHOHDZPWMRX7362-33-24 08:44:26134Vlmramur CgiqunrVQCSCJPJFGAB7328-86-75 08:44:003.9[facility] SthkvokFRZHMOLMFEBY9318-72-18 08:44:26645Jpkicvoh Eb RYIFYWBTESZH9530-24-99 08:44:54477Xjgbitxh CsxvmunBUESUVVDXLKJ5935-80-73 08:44:007.8[facility] XsnrqetFMRHLDKRZFRA4430-00-04 08:44:0030[facility] [place] FPHJPJXYKHAB8781-36-03 08:44:86705Nwzdcsaa RnxdgiwDSBEZIYNAFWW6224-53-77 08:44:002[facility] WaecppsSMTJOFLGVUTR9642-29-26 08:44:000.67[facility] [place] BNPSMSOZCR2297-56-24 08:44:0010.1[facility] RamegyoKHFKCJFJVX4979-81-27 08:44:00 3.73[facility] TwuqdnpMSJLAPDNTD4652-13-56 08:44:0081.8[facility]ann[facility] 2016-04-11 08:44:008.7[facility] OkxsacrVWIHJATCMD6727-92-50 08:44:0030.5[facility] KaapnmfEXBJIEZXMG5330-00-91 08:44:009.0[facility] EccnvugAVIKGJZYSN6339-25-52 08:44:0033.2[facility] LxejgvmAQFHLURJHV8283-46-38 16:52:12753Uacjivni Eb LOYIEMVONW5086-46-16 16:52:0017.2[facility] JkmcwwmMFFCBXQIYH3369-59-64 16:52:00 8.6[facility] KuuzesmSZZMASVYED8473-99-59 16:52:0082.1[facility]annHEMATOLOGY 2016-04-10 16:52:0033.2[facility] OoihugmRJUHWRNEOJ0853-97-06 16:52:00 Test Item Value Reference Range Interpretation Comments MCH (test code = MCH) 26.8 pg 27.0-31.0 [facility] YocdznjPANAKWNWEF4118-22-93 16:52:0032.6[facility]annHEMATOLOGY 2016-04-10 16:52:0010.8[facility] QmavdayXQUXHBXXUI5390-09-68 16:52:007.1[facility] ZrueaygVBKPBUBPML2848-94-65 16:52:004.04[facility] KdsloioZZYRYKCOQU1428-83-86 16:52:13948Mbhjypfd GtjdjzcBWQZSISSVG1512-78-68 16:52:0017.2[facility] [place] NKYCCBZNYR7691-65-19 16:52:008.6[facility] XlwhlrvLHEWCLNHTV5353-41-42 16:52:00 82.1[facility] XkmpvlbDKSWLOXJHB3893-10-00 16:52:0033.2[facility]annHEMATOLOGY 2016-04-10 16:52:00 Test Item Value Reference Range Interpretation Comments MCH (test code = MCH) 26.8 pg 27.0-31.0 [facility] AnyqyxuRIIHXOSGYT2585-26-13 16:52:0032.6[facility]annHEMATOLOGY 2016-04-10 16:52:0010.8[facility] HaywsixELPXNWRNZK9336-05-44 16:52:007.1[facility] KwishaoJMIAWWQGQE7580-64-59 16:52:004.04[facility] HermannCHEM XYJDX8444-67-46 08:33:39852Haujoeru HermannCHEM GYDWF6060-56-71 08:33:000.67[facility] HermannCHEM RYALY5761-29-79 08:33:004[facility] HermannCHEM FMEOG6800-79-42 08:33:66066 [facility]annCHEM SCACS5496-29-38 08:33:003.5[facility]annCHEM PANEL 2016-04-10 08:33:007.8[facility] HermannCHEM LEFMM1013-81-21 08:33:0031[facility] HermannCHEM UZJBL9945-86-76 08:33:0095[facility]annCHEM JRHVA9004-45-47 08:33:007.5[facility] HermannCHEM XKWAG4831-72-80 08:33:66943Mrjohame HermannCHEM ZHFWK8376-77-06 08:33:62390Yicggepi HermannCHEM OTHFU7864-27-58 08:33:000.67 [facility] ONKOA7162-33-34 08:33:004[facility]annCHEM PANEL 2016-04-10 08:33:22756Kofubtyd HermannCHEM TDNMV7706-58-22 08:33:003.5[facility]annCHEM YRZJN8860-59-63 08:33:007.8[facility]annCHEM GJMFT6766-92-56 08:33:0031[facility]annCHEM FVLRI0453-67-85 08:33:0095[facility]annCHEM VJOJZ3200-28-24 08:33:007.5[facility] HermannCHEM KQYSN7525-95-36 08:33:27000 [facility] UujlmnqIQRDLNATDX2055-55-81 09:19:008.6[facility]annHEMATOLOGY 2016-04-09 09:19:03762Wczfkbvi YmmkwmzVOLAVRSVKG2100-04-60 09:19:0011.5[facility] PlaqcpfPRKACOJCMD2824-73-45 09:19:004.10[facility] UuemiczOCNIAXVUSE1068-97-65 09:19:0011.1[facility] LerfqwgCLLRKUTZHN7613-92-33 09:19:00 Test Item Value Reference Range Interpretation Comments MCH (test code = MCH) 27.0 pg 27.0-31.0 [facility] SeyupefPUXAKOKXEC2480-38-93 09:19:0079.8[facility] HermannHEMATOLOGY 2016-04-09 09:19:0032.7[facility] WopfbmbAMCDYQILKU9631-94-61 09:19:0017.7[facility] NmnahbmRPPIVZCUMJ8811-98-94 09:19:0033.9[facility] PzzihvaFDKHHWJJVC8973-34-81 09:19:0068.8[facility] LpxpjvfHEBCISXWNJ4054-89-68 09:19:000.4[facility] [place] JNCGEXEISV3608-65-46 09:19:002.5[facility] RhqasbmTSYCZLNOQD0963-74-87 09:19:007.9 [facility] HycqvurJSKCTKIIEO9882-82-74 09:19:000.1[facility] HermannHEMATOLOGY 2016-04-09 09:19:000.9[facility] TryuhtzBCAHASMVYU4292-27-12 09:19:001.1[facility] LlfuhemGDYYLOACAR2932-35-25 09:19:008.1[facility] QremrlsECWWTFRSWM7598-21-50 09:19:0021.6[facility] SbxllbaJZFLFOEEAN9684-16-13 09:19:008.6[facility] [place] TIYPGHBDHQ6713-95-19 09:19:97890Qrxqijlq WetqutaXHWZGDQRXU8391-56-53 09:19:00 11.5[facility] BbxvqgfAHXOCUPWEQ7096-75-87 09:19:004.10[facility] HermannHEMATOLOGY 2016-04-09 09:19:0011.1[facility] PmaqknsZAVIETLLZT7074-52-49 09:19:00 Test Item Value Reference Range Interpretation Comments MCH (test code = MCH) 27.0 pg 27.0-31.0 [facility] SopcobfCXJDVQUEVR4725-94-22 09:19:0079.8[facility] HermannHEMATOLOGY 2016-04-09 09:19:0032.7[facility] PeloloaXITEFREXDF8445-64-78 09:19:0017.7[facility] IsinyrtHNNZXKLDRB9401-06-60 09:19:0033.9[facility] IzklajnLTOERKRQAR8274-37-38 09:19:0068.8[facility] IzuipnaJTMOVSINPW5728-81-08 09:19:000.4[facility] Eb AGWZEWWOBF3283-16-48 09:19:002.5[facility] FkitpkbSNIPAYPKJQ7498-49-62 09:19:007.9 [facility] RfcmrsjMPPIIOLLRF2149-95-14 09:19:000.1[facility]annHEMATOLOGY 2016-04-09 09:19:000.9[facility] McaiajoXCQPEKXAAG6176-87-76 09:19:001.1[facility] ArhzcdmYYSNZCZQJD5236-62-19 09:19:008.1[facility] CfkgyqsIXXUSPPIRQ0537-08-34 09:19:0021.6[facility] HermannCHEM VJPVD9114-61-23 16:28:55887Lklszvpy Eb TUEGBUENGIGZ6127-39-02 16:28:009.5[facility] YpiyxqdRVRKFALHHTIQ2793-76-39 16:28:008[facility] DdulnhrFJLDLERLIBBK6539-28-50 16:28:001.2[facility] [place] XAONJPSLTFRY9046-29-08 16:28:003.3[facility] DecipxxLYYZBDSSLEMK3996-63-67 16:28:0029[facility] ZmyxtdvRJWNYSJBPHBJ3870-07-58 16:28:88628Ulgymiib [place] WYOXNEFASKPK1012-14-35 16:28:000.4[facility] ItsoravAYRBGFDTJYGL6837-37-35 16:28:008.5[facility] YkshocuUXWYEWCYYGKG3331-83-42 16:28:007.1[facility] [place] ZVNIGCISJRFQ5526-60-34 16:28:0015[facility] MjmunueAEUGLMGJFRPH1701-20-70 16:28:00 117[facility] RwseutfKIMZWFUQUCKM6405-07-88 16:28:003.8[facility] [place] UQRIGJIKWNBM2527-46-82 16:28:68790Ygnxzksv UopsyddCKHGPJTAZDCT4476-39-83 16:28:0020[facility] WwiwjaxPHLDEGFYHADC0861-69-29 16:28:0080[facility] [place] JPBHMWRIHAYH9788-00-55 16:28:003.5[facility] MtfbhwpUZHRBHTNQJNS1144-28-51 16:28:006[facility] SnkjzdlOGMBVWBALDHW0752-42-95 16:28:23957Qnldvwvd [place] EMWZMYCZLEII5529-95-27 16:28:000.71[facility] EvljgftDWHIJYZTGR9778-18-72 16:28:00 0.3[facility] DdurysgFVGRKBYOGS8763-30-69 16:28:000.1[facility] HermannHEMATOLOGY 2016-04-08 16:28:0010.1[facility] VjeewhzMBPTHXVALL2229-18-03 16:28:001.7[facility] CziaowfMFEIEJBUOA8343-77-36 16:28:000.7[facility] YebhysjOBMNGMHYTF7043-37-78 16:28:0080.1[facility] IybgkpkIOJGXJZYGG3246-32-84 16:28:005.8[facility] [place] DBYJNDGFGC3753-70-85 16:28:000.6[facility] KcptbofADPAWHXWWW5051-64-16 16:28:00 13.2[facility]UR[facility] AND HNHMN8717-68-21 16:28:00 Test Item Value Reference Range Interpretation Comments UA Spec Grav (test code = UA Spec 1.015 1 Grav) [facility] QTAEW4964-84-98 16:28:00Clear (04/08/16 11:28 AM) [facility] DEFOV0718-86-68 16:28:00Yellow *NA*(04/08/16 11:28 AM) [facility] NPNOY5929-77-98 16:28:00Negative *NA*(04/08/16 11:28 AM)[facility] VSLBQ3064-05-73 16:28:00 Test Item Value Reference Range Interpretation Comments UA pH (test code = UA pH) 8.5 1 5.0-8.0 [facility] JMVDW9084-69-72 16:28:00Negative (04/08/16 11:28 AM) [facility] GVOLQ7749-74-76 16:28:00Negative (04/08/16 11:28 AM) [facility] VQIKX0241-28-52 16:28:000.2[facility] HIKSD3663-71-74 16:28:00Negative (04/08/16 11:28 AM)[facility] CHEM 2016-04-08 16:28:00Negative (04/08/16 11:28 AM)[facility] HermannCHEM PANEL 2016-04-08 16:28:64092Rmkjpsdq PrjrflfKWPUSTPSPOWG3812-17-43 16:28:009.5[facility] UtmcfntHBDYYSGASOGQ4568-35-62 16:28:008[facility] UfwzytuFBMZPQRSDGWG3411-19-64 16:28:001.2[facility] AntfsgdEZFVZVVSMELO4638-29-65 16:28:003.3[facility] Eb IPUIHDSJUDTV9122-79-74 16:28:0029[facility] JqsgrqrLSHLVDALRLFX0200-01-14 16:28:00 106[facility] BtfzturGOSRWBPJFYCB4300-34-49 16:28:000.4[facility] [place] TDGLYBZFJWUN5608-41-00 16:28:008.5[facility] BwhxeizVJPIROEUMTMF2939-59-54 16:28:007.1[facility] XparwrzZHYTZLXBGHVN9524-94-92 16:28:0015[facility] Eb PTXUTJDTEVEA2555-08-34 16:28:17236Iatcvvyd FkfanefVZPWJDIMOHHK0292-73-39 16:28:003.8[facility] UpafqltVQZHHTJOPLVO8419-15-41 16:28:46078Oqjnucse Eb QGFXSZLTLITT6847-19-04 16:28:0020[facility] JbcszfnOCKUWJJKXLYM7656-16-64 16:28:00 80[facility] OcsgeqhPWEABBLVOQZF1994-54-20 16:28:003.5[facility] HermannELECTROLYTES 2016-04-08 16:28:006[facility] ViovbexWHCCCXGOXTBL7191-25-70 16:28:83580Crhivcrw XgtkqsxBCTOMCSSRTHL7704-59-90 16:28:000.71[facility] UzkdwhmOVSWWXUKDI3718-46-27 16:28:000.3[facility] SuhgxajUDAZQEVHDO9382-25-50 16:28:000.1[facility] Eb JONJDTJBVU4296-55-88 16:28:0010.1[facility] NeptqmmUQGWYGOBCW1155-11-78 16:28:00 1.7[facility] CkhkuupFLALHUATFO6033-12-92 16:28:000.7[facility] HermannHEMATOLOGY 2016-04-08 16:28:0080.1[facility] TmdctyjQZLTDJAAVE6120-42-21 16:28:005.8[facility] EfribgsSQREUWBBMI2465-04-22 16:28:000.6[facility] BvudxcyLXFFZFXYXB1463-14-49 16:28:0013.2[facility] CRURO5678-38-58 16:28:00 Test Item Value Reference Range Interpretation Comments UA Spec Grav (test code = UA Spec 1.015 1 Grav) [facility] WBQSR1259-46-98 16:28:00Clear (04/08/16 11:28 AM) [facility] JZDST6595-25-52 16:28:00Yellow *NA*(04/08/16 11:28 AM) [facility] BTWAW2649-86-69 16:28:00Negative *NA*(04/08/16 11:28 AM)[facility] VKUTX0142-48-77 16:28:00 Test Item Value Reference Range Interpretation Comments UA pH (test code = UA pH) 8.5 1 5.0-8.0 [facility] LQIKN4880-14-00 16:28:00Negative (04/08/16 11:28 AM) [facility] CCCOC5314-12-58 16:28:00Negative (04/08/16 11:28 AM) [facility] VBXZH7493-49-98 16:28:000.2[facility] OFQUB7808-83-97 16:28:00Negative (04/08/16 11:28 AM)[facility] CHEM 2016-04-08 16:28:00Negative (04/08/16 11:28 AM)[facility] HermannELECTROLYTES 2015-12-24 11:08:0014.3[facility] ZxqlooeVZSEUNLOKTIS4558-28-98 11:08:53226 [facility] AxsibbnZSHGYPLZVGMM1839-71-23 11:08:003.3[facility] HermannELECTROLYTES 2015-12-24 11:08:0023[facility] PiwbsynEFVQWKXPTSCY7352-79-23 11:08:007.6[facility] GfgyibrATJSLNYUZJHP3161-78-95 11:08:000.64[facility] UakjbklAKBPHNEKOJWE8414-51-54 11:08:005[facility] SqvvexmZZDKKFXDSAWJ2665-43-79 11:08:31672Wwfnzrws Eb EXVITAGTUPGZ6595-49-46 11:08:58606Avhqbats XcpstdyTVOCYCOZSYXO3792-87-08 11:08:08036Drkupmlm HvrxwotGPAFMBWYJC4200-64-44 11:08:65047Wfbbohnz Eb MMJVXTUQGN5114-08-70 11:08:008.1[facility] NbgnpvvZSDQVMCFCL0521-90-93 11:08:00 82.2[facility] NvlyiiqPTGXBZAZII5017-17-63 11:08:0032.4[facility] HermannHEMATOLOGY 2015-12-24 11:08:0017.7[facility] TrfpwufZLXFLGOBNM5072-15-42 11:08:00 Test Item Value Reference Range Interpretation Comments MCH (test code = MCH) 26.7 pg 27.0-31.0 [facility] UfdongfHUOIMRKVYO2331-65-34 11:08:003.93[facility] HermannHEMATOLOGY 2015-12-24 11:08:0032.3[facility] EonosqoYTSXAEVJCJ2993-43-68 11:08:0010.5[facility] ChgfjejDGFVOBVMAD2834-47-09 11:08:009.5[facility] OkqemiaPFNWRGRZGYIV6284-79-61 11:08:0014.3[facility] WxzobevZGBHPZVEAIFW7203-96-69 11:08:59041Kqlzqjcl [place] RCGTHGVKELCX3516-18-29 11:08:003.3[facility] ZmdpvxzSXZWKRWZKDAG8714-00-17 11:08:0023[facility] QxqlqdxJOAYGWPKAHET3706-47-21 11:08:007.6[facility] [place] AMNHPJCTYWDI8612-21-06 11:08:000.64[facility] MhsrujwAHSWBZRFUMAQ8853-53-37 11:08:005[facility] XascfulEJNTCMGUBUAM4318-37-08 11:08:74847Yxbsqatb [place] JVCROSLZTVJY1777-82-57 11:08:39829Iokjicac RufznagARYRCEQTLGBS3784-20-48 11:08:33956Mxvfpwrs YqgzfcxNHTISNJEJX8813-58-10 11:08:63507Xapkxaxh Eb APMVAAZAYO4699-01-73 11:08:008.1[facility] HbnarxbWWMPANEKPB5974-42-67 11:08:00 82.2[facility] OthxgnnPDDOJIEJGU1708-60-84 11:08:0032.4[facility] HermannHEMATOLOGY 2015-12-24 11:08:0017.7[facility] PtnvavqFVMKHMWJDV3465-95-36 11:08:00 Test Item Value Reference Range Interpretation Comments MCH (test code = MCH) 26.7 pg 27.0-31.0 [facility] GtylsiqCYLGVYINND0868-99-44 11:08:003.93[facility] HermannHEMATOLOGY 2015-12-24 11:08:0032.3[facility] ZyxglbrVBRPXHAMLA3285-90-64 11:08:0010.5[facility] AthhdadLGREYWVLRZ2093-46-04 11:08:009.5[facility] HermannCHEM HTJQR5321-35-82 07:33:94452Ssktrmgd HermannCHEM OCSVH7030-66-47 07:33:003.9[facility] HermannCHEM GKUHX6770-44-42 07:33:66811Mbhtqmma HermannCHEM DNCXG2926-63-02 07:33:000.61 [facility]annCHEM XUMFP7379-03-22 07:33:31673Cqcpumpw HermannCHEM PANEL 2015-12-22 07:33:008.1[facility] HermannCHEM HHSID0171-77-12 07:33:0010[facility] HermannCHEM CDCSB2377-39-47 07:33:0088[facility] HermannCHEM VSOJP1786-96-26 07:33:0023[facility] HermannCHEM HGFFV4073-87-53 07:33:0013.9[facility] Eb XMLSCDZGXV0768-64-73 07:33:75762Zizzkhml PwblwmhDQKYLOIOVV2924-10-87 07:33:008.3 [facility] HjsdhcrGAYPIDYBLM2437-07-89 07:33:0018.3[facility] HermannHEMATOLOGY 2015-12-22 07:33:0082.4[facility] UfbkimfSNHMTDNUBK7131-85-90 07:33:0032.1[facility] RaidhnaHOIBQWJSYR7405-32-19 07:33:00 Test Item Value Reference Range Interpretation Comments MCH (test code = MCH) 26.4 pg 27.0-31.0 [facility] IzqjhhtKXJEEVPIKS4807-09-47 07:33:0034.7[facility] HermannHEMATOLOGY 2015-12-22 07:33:004.21[facility] DyvjpxdALYJHNPAVS4096-27-67 07:33:0011.1[facility] DgxotdmSUWKHBMDTT0538-99-54 07:33:0014.8[facility] KsnqzywTGZCMCUMTU1050-92-65 07:33:002.1[facility] VzzewysTTFXMBROIV4390-90-75 07:33:000.9[facility] Eb PJSDKRNMKG9695-63-64 07:33:0011.7[facility] DgkrjquRKVTEIRYIY0033-17-47 07:33:00 0.3[facility] HdkohnjPBICXFIGRY8612-53-98 07:33:0014.1[facility] HermannHEMATOLOGY 2015-12-22 07:33:000.3[facility] YufiwqzMJOUTUBJRL5501-88-98 07:33:006.3[facility] YzwgooeMOSNQLNEIN6144-04-61 07:33:0079.0[facility] HermannCHEM DVBWO5469-57-75 07:33:59609Skargpqq HermannCHEM KGRON2779-78-80 07:33:003.9[facility] HermannCHEM VRKQE4436-51-11 07:33:88513Fhkicyim HermannCHEM DPMXO4577-78-38 07:33:000.61 [facility]annCHEM YTSXC0072-18-12 07:33:37391Pnqfmsku HermannCHEM PANEL 2015-12-22 07:33:008.1[facility] HermannCHEM WTKNN4818-71-02 07:33:0010[facility] HermannCHEM WCNVI0493-99-38 07:33:0088[facility] HermannCHEM BJNPA4537-32-53 07:33:0023[facility] HermannCHEM WVMQW9567-94-19 07:33:0013.9[facility] Eb XODISXZRTJ2937-35-39 07:33:99426Hwoqbxeg AjwimagINXHPOJZIW1037-82-82 07:33:008.3 [facility] MotaiogZTQNWMCTMR2334-72-20 07:33:0018.3[facility]annHEMATOLOGY 2015-12-22 07:33:0082.4[facility] YjxxaboYZSGTGLLXQ5105-94-19 07:33:0032.1[facility] EvvuycgHSJOCTTWXJ4729-70-56 07:33:00 Test Item Value Reference Range Interpretation Comments MCH (test code = MCH) 26.4 pg 27.0-31.0 [facility] DkxkqwsNBCIYVEOSW2157-65-87 07:33:0034.7[facility]annHEMATOLOGY 2015-12-22 07:33:004.21[facility] JhnbvjtBXXBFQCTDS0325-72-90 07:33:0011.1[facility] EsayuwuGTXXSFBLBK7328-62-63 07:33:0014.8[facility] GogmvepRUOPLVYQLQ8435-00-16 07:33:002.1[facility] DxgopwmYKWJYZSJSW5566-56-14 07:33:000.9[facility] Eb WAAKGODTCS8970-74-47 07:33:0011.7[facility] UfyehwbJIAFQXTCAR0626-89-35 07:33:00 0.3[facility] LnmzyhdTLBCFWHXFN3180-91-39 07:33:0014.1[facility] HermannHEMATOLOGY 2015-12-22 07:33:000.3[facility] MqkhmosDDQNEVKRGR7744-19-64 07:33:006.3[facility] AarwameCXPZDBULZO3379-30-63 07:33:0079.0[facility] STOOL 2015-12-21 22:21:00Yellow *NA*(12/21/15 5:21 PM)[facility] STOOL 2015-12-21 22:21:00Clear (12/21/15 5:21 PM)[facility] STOOL 2015-12-21 22:21:000.2[facility] RALYK0443-79-09 22:21:00Negative (12/21/15 5:21 PM)[facility] VZCGR5701-61-39 22:21:00 Test Item Value Reference Range Interpretation Comments UA pH (test code = UA pH) 8.0 1 5.0-8.0 [facility] HEIWQ5388-95-86 22:21:00 Test Item Value Reference Range Interpretation Comments UA Spec Grav (test code = UA Spec 1.015 1 Grav) [facility] JLNCQ6228-44-43 22:21:00Negative (12/21/15 5:21 PM) [facility] XNGYN4695-78-82 22:21:00Negative *NA*(12/21/15 5:21 PM) [facility] WMUQM7127-97-82 22:21:00Negative (12/21/15 5:21 PM) [facility] JWLHA5231-56-15 22:21:00Negative (12/21/15 5:21 PM) [facility] WWWSO3268-56-95 22:21:00Negative (12/21/15 5:21 PM) [facility] JJNJQ1764-35-25 22:21:00See Note (12/21/15 5:21 PM) [facility] XMAI3051-41-88 22:21:00Negative (12/21/15 5:21 PM)[facility] KQJES7572-96-04 22:21:00Yellow *NA*(12/21/15 5:21 PM)[facility] PGZSU6003-08-89 22:21:00Clear (12/21/15 5:21 PM)[facility] AND XFNDI0682-26-30 22:21:000.2[facility] XQLQL1610-52-82 22:21:00Negative (12/21/15 5:21 PM)[facility] JPSJL7073-42-69 22:21:00 Test Item Value Reference Range Interpretation Comments UA pH (test code = UA pH) 8.0 1 5.0-8.0 [facility] NXSKU3019-76-42 22:21:00 Test Item Value Reference Range Interpretation Comments UA Spec Grav (test code = UA Spec 1.015 1 Grav) [facility] FVAFP4411-93-43 22:21:00Negative (12/21/15 5:21 PM) [facility] DSGXI8803-29-10 22:21:00Negative *NA*(12/21/15 5:21 PM) [facility] ZDKIJ2068-21-44 22:21:00Negative (12/21/15 5:21 PM) [facility] LYLRM5425-49-66 22:21:00Negative (12/21/15 5:21 PM) [facility] WGJPF4513-60-62 22:21:00Negative (12/21/15 5:21 PM) [facility] TGDPY7990-31-80 22:21:00See Note (12/21/15 5:21 PM) [facility] JTRH0938-98-94 22:21:00Negative (12/21/15 5:21 PM)[facility] HermannCHEM ARUZL3446-98-69 21:21:83188Zkjywpge HermannCHEM RMUED5184-54-25 21:21:65305Zgoczkjz HermannCHEM FJCRN0378-11-92 21:21:004.4[facility] HermannCHEM WUTHU1471-25-73 21:21:0026[facility] HermannCHEM SURFH9335-77-07 21:21:009[facility]annCHEM KMNFR8590-36-72 21:21:51203Qkdefswq HermannCHEM BNQKM6615-83-06 21:21:0091[facility]annCHEM HCRRA2096-85-55 21:21:000.74[facility] HermannCHEM EPPKH2131-99-60 21:21:0023[facility] HermannCHEM VSUMG7675-25-49 21:21:008.4 [facility]annCHEM BZOKY9633-34-46 21:21:44225Xxocorbv HermannCHEM PANEL 2015-12-21 21:21:003.9[facility] HermannCHEM XWPDV8279-51-75 21:21:77909Wrbxygjd HermannCHEM UVCCD2909-00-47 21:21:000.6[facility] HermannCHEM PXJYF8441-57-52 21:21:008.8[facility] HermannCHEM IIDSW9909-51-12 21:21:0020[facility] HermannCHEM HUVEI4285-96-56 21:21:001.1[facility] HermannCHEM YYZHE8858-04-75 21:21:004.0 [facility]annCHEM AWGJD3144-65-67 21:21:0012[facility] HermannCHEM PANEL 2015-12-21 21:21:0015.9[facility] RpceirzADOWXFYQXX4905-69-27 21:21:002.5[facility] HsjhgxlLPIBMKSUHX8855-95-54 21:21:000.1[facility] AmzbzsvBJLRRJJJNO5154-26-18 21:21:000.8[facility] MmhpzinHCWBJOFUOE5687-98-33 21:21:005.1[facility] Eb KIWUAMONKK8714-77-50 21:21:0015.3[facility] XnrdbwxBKGJHDAOLS6787-46-91 21:21:00 0.1[facility] VzeryfdDSKVVACAJY8106-55-80 21:21:0013.1[facility] HermannHEMATOLOGY 2015-12-21 21:21:000.6[facility] BnlzmspWIFCSQEBYM0637-51-18 21:21:0078.9[facility] JdntkqcRQBYKTPHLD9405-90-64 21:21:007.8[facility] NjklalbOBTVQBXEIQ3370-63-23 21:21:00 Test Item Value Reference Range Interpretation Comments MCH (test code = MCH) 26.3 pg 27.0-31.0 [facility] AxgkdbeUQYIZPNBHO5449-67-15 21:21:0018.0[facility] HermannHEMATOLOGY 2015-12-21 21:21:0032.6[facility] RlwzcwnZENLDOGTON2363-20-80 21:21:37348Lcvdsyrg NenksvyPFTQYIVAHG9233-98-11 21:21:0016.6[facility] MeotakcYVFLPDWDXO9193-60-69 21:21:004.76[facility] TrdopvzZCAXDJIVXX6646-03-86 21:21:0012.5[facility] Eb CWGCWFCCDK2877-74-93 21:21:0038.3[facility] RqlwqewKQGFAWBRXY5332-01-36 21:21:00 80.5[facility] HermannCHEM QHCCG5588-98-42 21:21:65811Mldtucpy HermannCHEM PANEL 2015-12-21 21:21:64151Kvvltoom HermannCHEM TJDRB4922-19-23 21:21:004.4[facility] HermannCHEM TZOZJ9959-82-24 21:21:0026[facility] HermannCHEM CNCVU5525-94-14 21:21:009[facility] HermannCHEM JGQYQ1264-86-03 21:21:16464Rwovqqmg HermannCHEM YNARQ1505-79-15 21:21:0091[facility] HermannCHEM YRIKZ7517-39-21 21:21:000.74 [facility]annCHEM ADDSK7496-16-10 21:21:0023[facility] HermannCHEM PANEL 2015-12-21 21:21:008.4[facility] HermannCHEM JWRTZ0196-10-87 21:21:48572Zfvxoflu HermannCHEM LYXUG2081-55-83 21:21:003.9[facility] HermannCHEM KTENG1415-20-18 21:21:63656Jwsudpos HermannCHEM NDPTX2679-01-27 21:21:000.6[facility] HermannCHEM HWUYN6051-60-87 21:21:008.8[facility] HermannCHEM OTJOO8120-31-39 21:21:0020 [facility]annCHEM WNGYL0012-77-77 21:21:001.1[facility] HermannCHEM PANEL 2015-12-21 21:21:004.0[facility] HermannCHEM INSMZ8358-79-73 21:21:0012[facility] HermannCHEM DGYTC3826-56-08 21:21:0015.9[facility] EdzncclUPVPVRSDUQ6195-06-61 21:21:002.5[facility] UcajgohKKKAVOJKUN1035-77-23 21:21:000.1[facility] Eb HVZXIECILB7262-81-48 21:21:000.8[facility] KbtmrdiNQILPFEHZC8918-75-08 21:21:005.1 [facility] LvegctaZUBDJPLVLB2590-79-34 21:21:0015.3[facility] HermannHEMATOLOGY 2015-12-21 21:21:000.1[facility] ZhktmmtPTQQHLTCZV0139-93-26 21:21:0013.1[facility] IkphegeAIGTLRSTFP6458-41-43 21:21:000.6[facility] IzlgjxuQIILUJRSYM7788-90-19 21:21:0078.9[facility] KfmjqpiEXGPFFMZCU7427-84-66 21:21:007.8[facility] [place] OWTOOEWRXC8210-20-77 21:21:00 Test Item Value Reference Range Interpretation Comments MCH (test code = MCH) 26.3 pg 27.0-31.0 [facility] SgjycuyDRESQUJGXL6376-29-09 21:21:0018.0[facility]annHEMATOLOGY 2015-12-21 21:21:0032.6[facility] WhhbtljJISMUBRJNK1543-56-52 21:21:58792Vhgcdwxf MyihhusNPABRGGNGA0596-48-85 21:21:0016.6[facility] JndcvjhPNVZWDVLZT2152-66-20 21:21:004.76[facility] JeihgtyICQUMJBAOG0498-27-43 21:21:0012.5[facility] ILTPVPEQMA5362-02-08 21:21:0038.3[facility] JmirdkhZNQVPCFSRV4483-54-32 21:21:00 80.5[facility]annCHEM QVHJP5545-26-35 00:23:50595Wzlpbiqt HermannELECTROLYTES 2015-12-21 00:23:0011.7[facility] CplrfjiFXLIHZEZRBHL9380-95-21 00:23:20382 [facility] WfdzlmoOVAGJAHNGCLO5243-61-38 00:23:008[facility] HermannELECTROLYTES 2015-12-21 00:23:0095[facility] DpghzmhTNMCLXPPFEDO4390-68-42 00:23:98142Geqwjgze XmhiureBLIFSTBPWXEV3412-22-36 00:23:000.76[facility] BaifvqmVQGZMLZREMYN4773-48-61 00:23:0025[facility] KwgtghvQJEEGKQUIQHT6163-02-20 00:23:008.8[facility] WGNJWOKZMVGR7607-02-25 00:23:54654Wwjxjuhh IrcdlttMUUHVKUZXZGO5913-60-89 00:23:003.7[facility] GzzajchTKBAZJUPZH6490-74-59 00:23:0036.3[facility] Eb PFCAPSZLDB1634-77-82 00:23:0011.6[facility] NhtshkoEJLICZHGEX5071-70-65 00:23:00 4.47[facility] JxhkehrQCPZPCYVEO6886-43-54 00:23:86574Xryrpsdx HermannHEMATOLOGY 2015-12-21 00:23:0018.3[facility] FydbkhrFOUXBPTQCJ2932-80-75 00:23:0031.9[facility] ZewokaoEPDDPNWMPB4527-49-89 00:23:00 Test Item Value Reference Range Interpretation Comments MCH (test code = MCH) 25.9 pg 27.0-31.0 [facility] OsaypwzPCMCKGLKZA0080-21-21 00:23:0081.3[facility]annHEMATOLOGY 2015-12-21 00:23:008.0[facility] PdvhhfqSVNZCHEUGE3572-13-86 00:23:0016.4[facility] WepfzgrRLUTKAMUWE9038-11-92 00:23:000.1[facility] CwiyeqvDZGAILQMDC3042-52-27 00:23:000.8[facility] QmnoodjODVWGVKCZR0803-13-72 00:23:000.1[facility] JMSGLBJFGZ4253-44-23 00:23:0014.3[facility] MomiugsZCFEPXMBQN3134-01-78 00:23:00 80.0[facility] GjrtmhpJGZGWGNPAY4410-27-42 00:23:004.7[facility]annHEMATOLOGY 2015-12-21 00:23:002.4[facility] MvsnnhmKIGOTYDQAE7388-98-22 00:23:0013.1[facility] BbulhotNACJXAVKOX3700-57-40 00:23:000.4[facility] TgidxazZJDMRIQQVK3179-51-56 00:23:000.6[facility]annCHEM AQYNP2376-58-71 00:23:85056Kzcxooyo Eb YWHLHWSITOLZ6060-41-62 00:23:0011.7[facility] TvdoqlzYDSCRLPKVWIC1425-29-36 00:23:67801Jawaxonw HjfmtziEUQISANIAQSF3598-91-74 00:23:008[facility] ZZFFTXXOXSBG3362-00-72 00:23:0095[facility] DjhnfwsZHIWDRQQXUPV3676-02-55 00:23:00 139[facility] TmaozwfDEAZSSTAKIXJ7365-79-19 00:23:000.76[facility] BOPEEQVHFTAN6870-77-63 00:23:0025[facility] OksgbaaUTBJFNBWIEHC5526-52-64 00:23:00 8.8[facility] GxqukyhDWYPRJPTCASV1595-37-90 00:23:15886Utvmqtlh [place] MINKRBBXXSYP8837-41-14 00:23:003.7[facility] ZnkexzmYONZHCRCKD1978-59-24 00:23:00 36.3[facility] LdsaesjRWLOFANGDA6083-60-32 00:23:0011.6[facility]annHEMATOLOGY 2015-12-21 00:23:004.47[facility] XchbedpAZGDGFFLDS3503-06-96 00:23:63468Bkpzvnbz OtaqpnxVPMMFJBSKL1046-36-97 00:23:0018.3[facility] KpakwoyKPZGXWHLKT5397-96-25 00:23:0031.9[facility] MygzoheLVMBQVQCOY7785-11-06 00:23:00 Test Item Value Reference Range Interpretation Comments MCH (test code = MCH) 25.9 pg 27.0-31.0 [facility] CdtaxlpRQGNCRJBYA3782-05-65 00:23:0081.3[facility]annHEMATOLOGY 2015-12-21 00:23:008.0[facility] XqueugzKEOXAPEBJC4930-28-07 00:23:0016.4[facility] DfsmujmHLJXPZPVHO1832-66-84 00:23:000.1[facility] IytegetSHWTUDJFSP9961-18-40 00:23:000.8[facility] MvidglgXUGCMCCPVB0511-56-03 00:23:000.1[facility] HFFYTVSAVQ3874-71-35 00:23:0014.3[facility] MikyxwxUDUMZYKJXC2869-42-60 00:23:00 80.0[facility] KoombewRZNDBAZNZA6515-65-59 00:23:004.7[facility]annHEMATOLOGY 2015-12-21 00:23:002.4[facility] UvjslguJCQBUAUTQD3526-60-03 00:23:0013.1[facility] DwgfmoiBRNOLZRTTW9305-34-90 00:23:000.4[facility] GuexqviSWLFPLIMGN7298-13-37 00:23:000.6[facility]URINE AND NFKGW9114-40-09 23:17:00Negative (12/20/15 6:17 PM)[facility] IJVEZ4824-08-26 23:17:00Negative (12/20/15 6:17 PM)[facility] MKXXG7404-92-57 23:17:00Negative (12/20/15 6:17 PM) [facility] BICTC0799-85-91 23:17:00Clear (12/20/15 6:17 PM)[facility] ZEJEJ9010-63-88 23:17:00 Test Item Value Reference Range Interpretation Comments UA Spec Grav (test code = UA Spec 1.015 1 Grav) [facility] JNLXN7108-22-31 23:17:00Yellow *NA*(12/20/15 6:17 PM) [facility] WNUQE9914-74-00 23:17:000.2[facility] DPKMN6168-66-90 23:17:00Performed (12/20/15 6:17 PM)[facility] UUXHI4607-91-92 23:17:00Negative (12/20/15 6:17 PM)[facility] STOOL [...] Spec 1.015 1 Grav) [facility] TKZOS8069-29-35 23:17:00Yellow *NA*(12/20/15 6:17 PM) [facility] WOSUV7006-31-43 23:17:000.2[facility] YETCC0326-39-46 23:17:00Performed (12/20/15 6:17 PM)[facility] UIWAH2417-83-40 23:17:00Negative (12/20/15 6:17 PM)[facility] STOOL 2015-12-20 23:17:00>=9.0 *ABN*(12/20/15 6:17 PM)[facility] STOOL 2015-12-20 23:17:00Negative *NA*(12/20/15 6:17 PM)[facility] STOOL 2015-12-20 23:17:00Trace *ABN*(12/20/15 6:17 PM)[facility] STOOL 2015-12-20 23:17:00Negative *NA*(12/20/15 6:17 PM)[facility] CHEM 2015-12-20 23:17:00Negative (12/20/15 6:17 PM)[facility]
--- NOTE | 2020-12-18 13:19 | RAD REPORT ---
EXAM DESCRIPTION: RAD - Chest Single View - 12/18/2020 1:04 pm CLINICAL HISTORY: DYSPNEA Chest pain. COMPARISON: Chest Pa And Lat (2 Views) dated 12/09/2020; Chest Single View dated 08/08/2020; Chest Sin gle View dated 08/07/2020; Chest Single View dated 08/05/2020; Chest For Pe Angio dated 12/09/2020 FINDINGS: Portable technique limits examination quality. The lungs are grossly clear. The heart is normal in size. No displaced fractures. IMPRESSION: No acute intrathoracic process suspected.
--- NOTE | 2020-12-18 15:41 | ER ---
Nurse's Notes [facility] Name: Jaye Pérez Age: 30 yrs Sex: Female : 1990 Arrival Date: 12/18/2020 Time: 11:40 Bed 8 Private MD: Diagnosis: Cough Presentation: 12/18 11:52 Chief complaint: Patient states: productive cough, runny nose, and inside of mouth sv itches x 3 days. Zyrtec, Advil, Nexium, and Protonix taken this morning. Coronavirus screen: Client denies travel out of the [place] in the last 14 days. Client presents with at least one sign or symptom that may indicate coronavirus-19. Standard/surgical mask placed on the client. Provider contacted for isolation considerations. Ebola Screen: No symptoms or risks identified at this time. Initial Sepsis Screen: Does the patient meet any 2 criteria? HR > 90 bpm. No. Patient's initial sepsis screen is negative. Does the patient have a suspected source of infection? No. Patient's initial sepsis screen is negative. Risk Assessment: Do you want to hurt yourself or someone else? Patient reports no desire to harm self or others. Onset of symptoms was December 15, 2020. 11:52 Method Of Arrival: Ambulatory sv 11:52 Acuity: JEREMIAH 2 sv Triage Assessment: 11:54 General: Appears in no apparent distress. comfortable, Behavior is calm, cooperative, sv appropriate for age. Pain: Denies pain. Neuro: Level of Consciousness is awake, alert, obeys commands, Oriented to person, place, time, situation, Gait is steady. Respiratory: Respiratory effort is even, unlabored, Respiratory pattern is regular, symmetrical. 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 - Social history:: Smoking status: Patient reports the use of cigarette tobacco products, smokes one-half pack cigarettes per day. Screenin:06 Abuse screen: Denies threats or abuse. Denies injuries from another. Nutritional kg screening: No deficits noted. Tuberculosis screening: No symptoms or risk factors identified. Fall Risk None identified. No fall in past 12 months (0 pts). No secondary diagnosis (0 pts). No IV (0 pts). Ambulatory Aid- None/Bed Rest/Nurse Assist (0 pts). Gait- Normal/Bed Rest/Wheelchair (0 pts) Mental Status- Oriented to own ability (0 pts). Total Chase Fall Scale indicates No Risk (0-24 pts). Assessment: 12:04 General: Appears in no apparent distress. Behavior is calm, cooperative, appropriate kg for age, quiet. Pain: Denies pain. Neuro: No deficits noted. Cardiovascular: Heart tones S1 S2. Respiratory: Reports cough that is productive, pain with cough since 7/5 itchy throat, runny nose x 3 days. Airway is patent Trachea midline Respiratory effort is even, unlabored, relaxed, Respiratory pattern is regular, symmetrical, Breath sounds are clear bilaterally. GI: No deficits noted. : No deficits noted. EENT: No deficits noted. Derm: No deficits noted. Musculoskeletal: No deficits noted. 13:00 Reassessment: Patient and/or family updated on plan of care and expected duration. Pain kg level reassessed. Reassessment: No changes from previously documented assessment. 14:55 Reassessment: Patient and/or family updated on plan of care and expected duration. Pain kg level reassessed. Patient states feeling better. 15:29 Reassessment: No changes from previously documented assessment. Patient and/or family ll1 updated on plan of care and expected duration. Pain level reassessed. Patient is alert, oriented x 3, equal unlabored respirations, skin warm/dry/pink. Vital Signs: 11:52 BP 124 / 67; Pulse 112; Resp 20; Temp 98.6; Pulse Ox 98% ; Weight 92.99 kg; Height 5 sv ft. 4 in. (162.56 cm); Pain 0/10; 12:00 BP 122 / 83; Pulse 86; Resp 20; Pulse Ox 98% on R/A; kg 13:28 BP 113 / 59; Pulse 75; Resp 20; Pulse Ox 100% on R/A; kg 14:00 BP 110 / 76; Pulse 77; Resp 20; Pulse Ox 100% on R/A; kg 14:30 BP 107 / 59; Pulse 70; Resp 20; Pulse Ox 99% on R/A; kg 15:29 BP 113 / 61; Pulse 79; Resp 18; Pulse Ox 100% on R/A; ll1 11:52 Body Mass Index 35.19 (92.99 kg, 162.56 cm) ED Course: 11:40 Patient arrived in ED. 11:46 Shadi Grady, RN is Primary Nurse. ll1 11:46 Arm band placed on Patient placed in an exam room, on a stretcher. ll1 11:54 Triage completed. 11:58 Francisco J Tan PA is PHCP. jr8 11:58 Chidi Rivera MD is Attending Physician. jr8 12:07 Patient has correct armband on for positive identification. Bed in low position. Call kg light in reach. Side rails up X 1. 13:04 XRAY Chest (1 view) In Process Unspecified. EDMS 15:29 No provider procedures requiring assistance completed. Patient did not have IV access ll1 during this emergency room visit. Administered Medications: No medications were administered Outcome: 15:21 Discharge ordered by . jr8 15:29 Discharged to home ambulatory. ll1 15:29 Condition: stable 15:29 Discharge instructions given to patient, Instructed on discharge instructions, follow up and referral plans. no drinking with medication, no driving heavy equipment, medication usage, Demonstrated understanding of instructions, follow-up care, medications, Prescriptions given X 2. 15:30 Patient left the ED. ll1 Signatures: Dispatcher [employer] EDMS Kaya Allen RN RN Francisco J Tan PA PA rust Shadi Grady, RN RN 1 Letitia Fonseca RN RN Dina Betancourt
--- NOTE | 2020-12-18 15:41 | EDPHYS ---
Physician Documentation [facility] Name: Jaye Pérez Age: 30 yrs Sex: Female : 1990 Arrival Date: 12/18/2020 Time: 11:40 Bed 8 Private MD: ED Physician Chidi Rivera HPI: 12/18 13:24 This 30 yrs old Female presents to ER via Ambulatory with complaints of Cough.jr8 13:24 The patient or guardian reports cough, that is intermittent, described as moderate, jr8 with no sputum. Onset: The symptoms/episode began/occurred gradually, 2 day(s) ago. Severity of symptoms: At their worst the symptoms were mild, in the emergency department the symptoms are unchanged. Modifying factors: The symptoms are alleviated by nothing, the symptoms are aggravated by nothing. Associated signs and symptoms: The patient has no apparent associated signs or symptoms. The patient has not experienced similar symptoms in the past. The patient has not recently seen a physician. 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 - Social history:: Smoking status: Patient reports the use of cigarette tobacco products, smokes one-half pack cigarettes per day. ROS: 13:24 Eyes: Negative for injury, pain, redness, and discharge, ENT: Negative for injury, jr8 pain, and discharge, Neck: Negative for injury, pain, and swelling, Cardiovascular: Negative for chest pain, palpitations, and edema, Abdomen/GI: Negative for abdominal pain, nausea, vomiting, diarrhea, and constipation, Back: Negative for injury and pain, MS/Extremity: Negative for injury and deformity, Skin: Negative for injury, rash, and discoloration, Neuro: Negative for headache, weakness, numbness, tingling, and seizure. 13:24 Respiratory: Positive for cough, Negative for shortness of breath, sputum production, wheezing. Exam: 13:24 Constitutional: This is a well developed, well nourished patient who is awake, alert, jr8 and in no acute distress. ENT: Nares patent. No nasal discharge, no septal abnormalities noted. Tympanic membranes are normal and external auditory canals are clear. Oropharynx with no redness, swelling, or masses, exudates, or evidence of obstruction, uvula midline. Mucous membranes moist. Neck: Trachea midline, no thyromegaly or masses palpated, and no cervical lymphadenopathy. Supple, full range of motion without nuchal rigidity, or vertebral point tenderness. No Meningismus. Cardiovascular: Regular rate and rhythm with a normal S1 and S2. No gallops, murmurs, or rubs. Normal PMI, no JVD. No pulse deficits. Respiratory: Lungs have equal breath sounds bilaterally, clear to auscultation and percussion. No rales, rhonchi or wheezes noted. No increased work of breathing, no retractions or nasal flaring. Abdomen/GI: Soft, non-tender, with normal bowel sounds. No distension or tympany. No guarding or rebound. No evidence of tenderness throughout. Back: No spinal tenderness. No costovertebral tenderness. Full range of motion. Skin: Warm, dry with normal turgor. Normal color with no rashes, no lesions, and no evidence of cellulitis. MS/ Extremity: Pulses equal, no cyanosis. Neurovascular intact. Full, normal range of motion. Neuro: Awake and alert, GCS 15, oriented to person, place, time, and situation. Cranial nerves II-XII grossly intact. Motor strength 5/5 in all extremities. Sensory grossly intact. Cerebellar exam normal. Normal gait. Vital Signs: 11:52 BP 124 / 67; Pulse 112; Resp 20; Temp 98.6; Pulse Ox 98% ; Weight 92.99 kg; Height 5 sv ft. 4 in. (162.56 cm); Pain 0/10; 12:00 BP 122 / 83; Pulse 86; Resp 20; Pulse Ox 98% on R/A; kg 13:28 BP 113 / 59; Pulse 75; Resp 20; Pulse Ox 100% on R/A; kg 14:00 BP 110 / 76; Pulse 77; Resp 20; Pulse Ox 100% on R/A; kg 14:30 BP 107 / 59; Pulse 70; Resp 20; Pulse Ox 99% on R/A; kg 15:29 BP 113 / 61; Pulse 79; Resp 18; Pulse Ox 100% on R/A; ll1 11:52 Body Mass Index 35.19 (92.99 kg, 162.56 cm) sv MDM: 11:58 Patient medically screened. jr8 13:24 Data reviewed: vital signs, nurses notes, lab test result(s), radiologic studies, plain jr8 films. Data interpreted: Pulse oximetry: on room air is 98 %. Interpretation: normal. Counseling: I had a detailed discussion with the patient and/or guardian regarding: the historical points, exam findings, and any diagnostic results supporting the discharge/admit diagnosis, lab results, radiology results, the need for outpatient follow up, a family practitioner, to return to the emergency department if symptoms worsen or persist or if there are any questions or concerns that arise at home. 12/18 14:31 Order name: SARS-COV-2 RT PCR; Complete Time: 15:13 EDKY 12/18 12:11 Order name: XRAY Chest (1 view); Complete Time: 13:20 jr8 Administered Medications: No medications were administered Disposition: 15:34 Co-signature as Attending Physician, Chidi Rivera MD. rn Disposition Summary: 12/18/20 15:21 Discharge Ordered Location: Home jr8 Problem: new jr8 Symptoms: have improved jr8 Condition: Stable jr8 Diagnosis - Cough jr8 Followup: jr8 - With: Private Physician - When: 2 - 3 days - Reason: Recheck today's complaints, Continuance of care, Re-evaluation by your physician Discharge Instructions: - Discharge Summary Sheet jr8 - Cough, Adult jr8 Forms: - Medication Reconciliation Form jr8 - Thank You Letter jr8 - Antibiotic Education jr8 - Prescription Opioid Use jr8 - Work release form ll1 Prescriptions: - promethazine-DM 6.25-15 mg/5 mL Oral syrup - take 5 milliliter by ORAL route every 4-6 hours As needed as needed, not to jr8 exceed 30 mL in 24 hours; 100 milliliter; Refills: 0, Product Selection Permitted - Prednisone 20 mg Oral Tablet - take 1 tablet by ORAL route once daily for 5 days; 5 tablet; Refills: 0, jr8 Product Selection Permitted Signatures: Dispatcher [facility] Kaya Cuadra RN RN sv Nieto, Roman, MD MD rn Roszak, Josh, PA PA jr8 Corrections: (The following items were deleted from the chart) 13:31 12:35 CORONAVIRUS+BRZ ordered. EDMS EDMS
[2020-12-18 15:58] VITALS: TEMP 98.6
[2020-12-18 16:09] VITALS: BP 113/61; O2SAT 100
== END 2020-12-18 15:30 | disposition home or self-care (01) ==
LOC: ER 11:37
DX: R05 Cough (principal); F17.210 Nicotine dependence, cigarettes, uncomplicated; Z88.1 Allergy status to other antibiotic agents; Z20.822 Contact with and (suspected) exposure to COVID-19
CPT/HCPCS: 71045; 99283; U0003

== ENCOUNTER 2021-05-20 11:06 | Emergency (ER) | payer SELFPAY ==
--- OUTSIDE RECORDS SUMMARY | 2021-05-20 11:09 | XMS REPORT | Continuity of Care Document ---
:1990 Author Organization [facility] t Address [address] [place] [address] Care Team Providers Name Role Phone Meño Dong MD Primary Care Physician Teddy JAMISON Attending Clinician TEDDY Attending Clinician Unavailable TEDDY Attending Clinician Unavailable Doctor Unassigned, Name Attending Clinician Unavailable Dipesh Dash DO Attending Clinician CARMEN Attending Clinician Unavailable FLIP Attending Clinician Unavailable ANENE Attending Clinician Unavailable ANALISA JUNIOR Attending Clinician Unavailable Problems Condition Condition Condition Status Onset Resolution Last Treating Co mments Source Name Details Category Date Date Treatment Clinician Date Anxiety Anxiety Disease Active 2016-06 [facility] 07[facility]: [facility] 00 l Iron Iron Disease Active 2016-06 [facility] deficiency deficiency 07-12 anemia anemia 00:00: Hospita 00 l 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 ulcer 07-12 disease disease 00:00: Hospita 00 l Dehydratio Dehydratio Disease Active 2016-06 M ethodi n n 07-06 00:00: Hospita 00 l Tachycardi Tachycardi Disease Active 2016-06 ethodi a a 07-04 00:00: Hospita 00 l Allergies, Adverse Reactions, Alerts Allergy Allergy Status Severity Reaction(s) Onset Inactive Treating Comm ents Source Name Type Date Date Clinician Harmanrofarturo Propensi Active GI 2016-06 Nausea & Meth felipe xacin ty to Intolerance 07-[address] adverse 00:00: Hospita reaction 00 l s to drug CIPROFLO DRUG Active Med N/V 2016-06 Univers XACIN INGREDI 07-01 ity of 00:00: [address] Social History Social Habit Start Date Stop Date Quantity Comments Source Sex Assigned At [birth year] [facility] 00:00:00 00:00:00 Smoking Status Start Date Stop Date Source Unknown if ever smoked [facility] Medications Ordered Filled Start Stop Current Ordering Indication Dosage Frequency Signature Comments Components Source Medication Medication Date Date Medication? Clinician (SIG) Name Name promethazin 2016-06 Yes 25mg Q6H Take 25 mg Methodi e 1-[address] (PHENERGAN) 21:02: every 6 Hos alicia 25 MG 10 (six) l tablet hours as needed for nausea or vomiting. ranitidine 2016-06 Yes 150mg QD Take 150 Me thodi (ZANTAC) 1-[address] 150 MG 21:02: mouth Hospita tablet 10 nightly as l needed for heartburn. acetaminoph 2016-06 Yes 1{tbl} Q4H Take 1 Me thodi en-codeine 1-[address] (TYLENOL 21:02: mouth Hospita WITH 10 every 4 l CODEINE #3) (four) 300-30 mg hours as per tablet needed for moderate pain. Immunizations Ordered Immunization Filled Immunization Date Status Commen ts Source Name Name Pneumococcal 2017-05-06 Completed [facility]jug[facility] 13-[facility] 00:00:00 Hospi arturo Procedures This patient has no known procedures. Plan of Care Planned Activity Planned Date Details Comments Source Future Scheduled Test COVID-19 VACCINE (1) [facility] [code = COVID-19 VACCINE (1)] Future Scheduled Test Screening for [facility] malignant neoplasm of cervix (procedure) [code = 280241709] Future Scheduled Test INFLUENZA VACCINE [facility] [code = INFLUENZA VACCINE] Encounters Start End Encounter Admission Attending Care Care Encounter Source Date/Time Date/Time Type Type Clinicians Facility Department ID 2021-04-11 Emergency [facility] [id number] [facility] 16:19:09 [facility] of [facility] 2020-11-15 2020-11-15 Refill Teddy [facility] [id number] 00:00:00 00:00:00 Anjum Boogie [id number] [place] [id number] Professio [phone] nal 085 [facility] 2020-09-04 2020-09-04 Outpatient R ANJUM ESPINAL [facility] [id number] [facility] 09:50:00 09:50:00 ANJUM ESPINAL [id number] i ty [facility] 2020-09-04 2020-09-04 Outpatient R ANJUM ESPINAL [facility] [id number] Univers 09:50:00 09:50:00 ANJUM ESPINAL i ty [facility] 2020-09-04 2020-09-04 Orders Doctor MILO [id number] 00:00:00 00:00:00 Only Unassigned, JEANIE [id number] [place] [facility] [id number] 2020-09-02 2020-09-02 Patient Hardy [facility] [id number] 00:00:00 00:00:[address] [facility] [id number] [facility] [id number] PAVILLION [id number] 2020-09-02 2020-09-02 Telephone Teddy [facility] [id number] 00:00:00 00:00:00 Anjum Boogie [id number] [place] [id number] Professio [phone] [facility] [address] [place] [address] 2020-08-15 2020-08-15 Office Teddy [facility] [id number] 15:09:23 15:39:23 Visit Anjum Boogie [id number] [place] [id number] Professio [id number] nal 085 [facility] 2020-08-15 2020-08-15 Outpatient R ANJUM ESPINAL [facility] [id number] Univers 15:00:00 15:00:00 ANJUM ESPINAL [id number] i ty of [facility] 2020-08-15 2020-08-15 Outpatient R ANJUM ESPINAL [facility] 10 [id number] Univers 15:00:00 15:00:00 ANJUM ESPINAL i ty of [facility] 2020-08-08 2020-08-08 Outpatient R ANJUM ESPINAL [facility] 10 [id number] Univers 15:30:00 15:30:00 ANJUM ESPINAL i ty of [facility] 2020-08-08 2020-08-08 Outpatient R ANJUM ESPINAL [facility] [id number] Univers 10:40:00 10:40:00 ANJUM ESPINAL [id number] i ty of [facility] 2020-06-22 2020-06-22 Outpatient R [facility] [id number] Univers 15:20:00 15:20:00 [id number] [facility] 2020-06-22 2020-06-22 Outpatient R CARMEN [facility] [id number] Univers 15:20:00 15:20:00 DAWN ity [facility] 2020-06-19 2020-06-19 Outpatient R ANJUM ESPINAL [facility] [id number] Univers 14:40:00 14:40:00 ANJUM ESPINAL [id number] i ty of [facility] 2020-06-19 2020-06-19 Outpatient R ANJUM ESPINAL [facility] [id number] Univers 14:40:00 14:40:00 ANJUM ESPINAL i ty of [facility] 2020-06-19 2020-06-19 Outpatient R ANJUM ESPINAL [facility] [id number] Univers 14:40:00 14:40:00 ANJUM ESPINAL i ty of [facility] 2020-04-30 2020-04-30 Outpatient R [facility] [id number] Univers 19:20:00 19:20:00 [id number] ity [facility] 2020-04-30 2020-04-30 Outpatient R FLIP [facility] [id number] Univers 19:20:00 19:20:00 MILO [facility] 2020-03-14 2020-03-14 Outpatient R STAN ESPINALGil [facility] [id number] Univers 13:20:00 13:20:00 ANJUM ESPINAL i ty of [facility] 2020-03-14 2020-03-14 Outpatient R ANJUM ESPINAL [facility] [id number] Univers 10:40:00 10:40:00 ANJUM ESPINAL [id number] i ty of [facility] 2020-03-14 2020-03-14 Outpatient R ANGELA ESPINALMIGil [facility] [id number] Univers 10:40:00 10:40:00 ANJUM ESPINAL i ty of [facility] 2020-03-07 2020-03-07 Outpatient R [facility] [id number] Univers 14:20:00 14:20:00 [id number] ity [facility] 2020-03-07 2020-03-07 Outpatient R ADELA [facility] [id number] Univers 14:20:00 14:20:00 MARIA E [facility] 2020-02-28 2020-02-28 Outpatient R [facility] [id number] Univers 09:00:00 09:00:00 [id number] ity [facility] 2020-02-28 2020-02-28 Outpatient R [facility] [id number] Univers 09:00:00 09:00:00 [facility] 2019-12-05 2019-12-05 Outpatient R JUNIOR, BRIANDA [facility] [id number] Univers [facility] This patient has no known results.
--- NOTE | 2021-05-20 15:13 | RAD REPORT ---
EXAM DESCRIPTION: RAD - Chest Pa And Lat (2 Views) - 05/20/2021 2:56 pm CLINICAL HISTORY: COUGH COMPARISON: Chest Single View dated 12/18/2020; Chest Pa And Lat (2 Views) dated 12/09/2020; Chest Sing le View dated 08/08/2020; Chest Single View dated 08/07/2020 FINDINGS: Lines: None. Lungs: No evidence of edema or pneumonia. Pleural: No significant pleural effusions or pneumothorax. Cardiac: The heart size is within normal limits. Bones: No acute fractures. Other: IMPRESSION: No acute cardiopulmonary disease.
[2021-05-20] MEDS ORDERED: IBUPROFEN 400 MG TAB ONE (15:25)
--- NOTE | 2021-05-20 16:55 | EDPHYS ---
Physician Documentation [facility] Name: Jaye Pérez Age: 31 yrs Sex: Female : 1990 Arrival Date: 05/20/2021 Time: 11:08 Bed Treatment Private MD: ED Physician Rhea Lius HPI: 05/20 12:38 This 31 yrs old Female presents to ER via Ambulatory with complaints of Asthma and sp3 bronchitis. 12:38 31-year-old female with history of allergic asthma, GERD, peptic ulcer disease presents sp3 to the ED for 2 days of worsening cough and congestion and nebulizer use. Patient states that she has been wheezing and has had to use her nebulizer on top of her inhaled metered-dose inhaler. She denies fever, sore throat, chest pain, back pain abdominal pain, nausea, vomiting, diarrhea. Patient had pneumonia last year and presented with similar symptoms.. Historical: - Allergies: 11:42 Cipro (Upset stomach); [facility] - Home Meds: 11:42 albuterol sulfate 90 mcg/actuation Inhl HFAA 2 puffs every 4-6 hours [Active]; [facility] albuterol sulfate 2.5 mg /3 mL (0.083 %) Inhl nebu 3 mL 3 times per day [Active]; Aimee 180 mg Oral tab 1 tab once daily [Active]; multivitamin Oral tab daily [Active]; Nexium 40 mg Oral cpDR 1 cap 2 times per day [Active]; - PMHx: 11:42 bronchitis/asthma; GERD; PUD; [facility] - PSHx: 11:42 Dentures; Tonsillectomy; [facility] - Immunization history:: Adult Immunizations up to date. - Social history:: Smoking status: Patient reports the use of cigarette tobacco products, smokes one-half pack cigarettes per day. ROS: 12:39 Constitutional: Negative for fever, chills, and weight loss, Eyes: Negative for injury, sp3 pain, redness, and discharge, ENT: Negative for injury, pain, and discharge, Neck: Negative for injury, pain, and swelling, Cardiovascular: Negative for chest pain, palpitations, and edema, Abdomen/GI: Negative for abdominal pain, nausea, vomiting, diarrhea, and constipation, Back: Negative for injury and pain, MS/Extremity: Negative for injury and deformity, Skin: Negative for injury, rash, and discoloration, Neuro: Negative for headache, weakness, numbness, tingling, and seizure, Psych: Negative for depression, anxiety, suicide ideation, homicidal ideation, and hallucinations, Allergy/Immunology: Negative for hives, rash, and allergies, Endocrine: Negative for neck swelling, polydipsia, polyuria, polyphagia, and marked weight changes. 12:39 All other systems are negative. Exam: 12:40 Constitutional: This is a well developed, well nourished patient who is awake, alert, sp3 and in no acute distress. Head/Face: Normocephalic, atraumatic. Eyes: Pupils equal round and reactive to light, extra-ocular motions intact. Lids and lashes normal. Conjunctiva and sclera are non-icteric and not injected. Cornea within normal limits. Periorbital areas with no swelling, redness, or edema. ENT: Nares patent. No nasal discharge, no septal abnormalities noted. External auditory canals are clear. Oropharynx with no redness, swelling, or masses, exudates, or evidence of obstruction, uvula midline. Mucous membranes moist. Neck: Trachea midline, no thyromegaly or masses palpated, and no cervical lymphadenopathy. Supple, full range of motion without nuchal rigidity, or vertebral point tenderness. No Meningismus. Chest/axilla: Normal chest wall appearance and motion. Nontender with no deformity. No lesions are appreciated. Cardiovascular: Regular rate and rhythm with a normal S1 and S2. No gallops, murmurs, or rubs. Normal PMI, no JVD. No pulse deficits. Abdomen/GI: Soft, non-tender, with normal bowel sounds. No distension or tympany. No guarding or rebound. No evidence of tenderness throughout. Skin: Warm, dry with normal turgor. Normal color with no rashes, no lesions, and no evidence of cellulitis. MS/ Extremity: Pulses equal, no cyanosis. Neurovascular intact. Full, normal range of motion. Neuro: Awake and alert, GCS 15, oriented to person, place, time, and situation. Cranial nerves II-XII grossly intact. Motor strength 5/5 in all extremities. Sensory grossly intact. Cerebellar exam normal. Normal gait. 12:40 Respiratory: Patient with diffuse rhonchi with scattered wheezes. Pulse oxygenation is 100% on room air and patient is not tachypneic. No signs of respiratory distress or accessory muscle use noted. Patient speaks in full sentences without any difficulty.. Vital Signs: 11:36 BP 126 / 79; Pulse 81; Resp 16; Temp 97.8; Pulse Ox 100% ; Weight 90.72 kg; Height 5 jh5 ft. 4 in. (162.56 cm); 12:05 BP 112 / 65; Pulse 76; Resp 18; Temp 98.2; Pulse Ox 100% on R/A; ld1 14:24 BP 118 / 66; Pulse 79; Resp 18; Pulse Ox 100% on R/A; ld1 16:06 BP 121 / 72; Pulse 82; Resp 18; Pulse Ox 100% on R/A; ld1 11:36 Body Mass Index 34.33 (90.72 kg, 162.56 cm) 5 MDM: 12:29 Patient medically screened. sp3 12:41 Data reviewed: vital signs, nurses notes. ED course: 31-year-old with bronchitis versus sp3 pneumonia. Will obtain chest x-ray and determine best course of outpatient treatment. If no pneumonia, will discharge on Zithromax p.o. and prednisone with continued use of nebulizers as needed at home follow-up with her PCP. I meant highly suspicious of acute coronary syndrome, sepsis, shock, vascular issue including TAD, pulmonary embolism, or any other critical findings at this time.. 16:52 ED course: Covid is negative and x-ray demonstrates bronchitis. Will discharge on sp3 Zithromax and prednisone.. 12 15:06 Order name: SARS-COV-2 RT PCR (Document "Date of Onset" if Symptomatic); Complete Time: iw 16:52 05/20 12:30 Order name: Chest Pa And Lat (2 Views) XRAY; Complete Time: 16:07 sp3 Administered Medications: 15:32 Drug: Ibuprofen 800 mg Route: PO; ld1 15:32 Follow up: Response: No adverse reaction ld1 Disposition Summary: 05/20/21 16:55 Discharge Ordered Location: Home sp3 Condition: Stable sp3 Diagnosis - Acute bronchitis, unspecified sp3 Followup: sp3 - With: Private Physician - When: As needed - Reason: Recheck today's complaints Discharge Instructions: - Discharge Summary Sheet sp3 - Acute Bronchitis, Adult sp3 Forms: - Medication Reconciliation Form sp3 - Work release form ld1 - Thank You Letter sp3 - Antibiotic Education sp3 - Prescription Opioid Use sp3 Prescriptions: - Zithromax Z-Matt 250 mg Oral Tablet - take 1 tablet by ORAL route as directed for 5 days Day 1 - take two (2) tablets sp3 one time. Day 2, 3, 4 , 5 take one (1) tablet once daily.; 6 tablet; Refills: 0, Product Selection Permitted - Prednisone 20 mg Oral Tablet - take 2 tablets by ORAL route once daily for 5 days; 10 tablet; Refills: 0, sp3 Product Selection Permitted Signatures: Dispatcher [employer] Isabel Johansen RN RN ld1 Rhea Luis MD MD sp3 Beverly Barragan RN RN jh5
--- NOTE | 2021-05-20 16:55 | ER ---
Nurse's Notes [facility] Name: Jaye Pérez Age: 31 yrs Sex: Female : 1990 Arrival Date: 05/20/2021 Time: 11:08 Bed Treatment Private MD: Diagnosis: Acute bronchitis, unspecified Presentation: 05/20 11:36 Chief complaint: Patient states: a week ago my asthma has been acting up, however, last [facility] 3 days it's worse and I am having a hard time breathing deeply; it's hurting to breath. I have a cough. Uncomfortable to lay down dur to the pain. I have albuterol at home and it's helping me a lot but I am in pain when I cough. Coronavirus screen: Vaccine status: Patient reports being unvaccinated. Client denies travel out of the [place] in the last 14 days. Ebola Screen: Patient negative for fever greater than or equal to 101.5 degrees Fahrenheit, and additional compatible Ebola Virus Disease symptoms Patient denies exposure to infectious person. Patient denies travel to an Ebola-affected area in the 21 days before illness onset. No symptoms or risks identified at this time. Initial Sepsis Screen: Does the patient meet any 2 criteria? No. Patient's initial sepsis screen is negative. Does the patient have a suspected source of infection? No. Patient's initial sepsis screen is negative. Risk Assessment: Do you want to hurt yourself or someone else? Patient reports no desire to harm self or others. Onset of symptoms was May 2021. 11:36 Method Of Arrival: Ambulatory [facility] 11:36 Acuity: JEREMIAH 3 5 Triage Assessment: 11:43 General: Appears in no apparent distress. obese, well groomed, well nourished, Behavior [facility] is calm, cooperative, appropriate for age. Pain: Complains of pain in chest. Cardiovascular: No deficits noted. Capillary refill < 3 seconds Patient's skin is warm and dry. Respiratory: Airway is patent Trachea midline Respiratory effort is even, unlabored, Respiratory pattern is regular, symmetrical. Historical: - Allergies: 11:42 Cipro (Upset stomach); 5 - Home Meds: 11:42 albuterol sulfate 90 mcg/actuation Inhl HFAA 2 puffs every 4-6 hours [Active]; jh5 albuterol sulfate 2.5 mg /3 mL (0.083 %) Inhl nebu 3 mL 3 times per day [Active]; Aimee 180 mg Oral tab 1 tab once daily [Active]; multivitamin Oral tab daily [Active]; Nexium 40 mg Oral cpDR 1 cap 2 times per day [Active]; - PMHx: 11:42 bronchitis/asthma; GERD; PUD; jh5 - PSHx: 11:42 Dentures; Tonsillectomy; jh5 - Immunization history:: Adult Immunizations up to date. - Social history:: Smoking status: Patient reports the use of cigarette tobacco products, smokes one-half pack cigarettes per day. Screenin:52 Abuse screen: Denies threats or abuse. Denies injuries from another. Nutritional ld1 screening: No deficits noted. Tuberculosis screening: No symptoms or risk factors identified. Fall Risk None identified. Assessment: 12:52 General: Appears in no apparent distress. comfortable, Behavior is calm, cooperative, ld1 appropriate for age. Pain: Complains of pain in chest Pain does not radiate. Pain currently is 6 out of 10 on a pain scale. Quality of pain is described as throbbing, Pain began gradually, Is continuous. Neuro: Level of Consciousness is awake, alert, obeys commands, Oriented to person, place, time, situation, Appropriate for age. Cardiovascular: Capillary refill < 3 seconds Patient's skin is warm and dry. Respiratory: Airway is patent Respiratory effort is even, unlabored, Respiratory pattern is regular, symmetrical. GI: Abdomen is flat, non-distended. : No signs and/or symptoms were reported regarding the genitourinary system. EENT: No signs and/or symptoms were reported regarding the EENT system. Derm: No signs and/or symptoms reported regarding the dermatologic system. Musculoskeletal: No signs and/or symptoms reported regarding the musculoskeletal system. 15:15 Reassessment: Patient appears in no apparent distress at this time. Patient and/or iw family updated on plan of care and expected duration. Pain level reassessed. Patient is alert, oriented x 3, equal unlabored respirations, skin warm/dry/pink. pt c/o pain in chest, offered tylenol or motrin, Dr. Luis notified. General:. 16:06 Reassessment: Patient appears in no apparent distress at this time. No changes from ld1 previously documented assessment. Patient and/or family updated on plan of care and expected duration. Pain level reassessed. Patient is alert, oriented x 3, equal unlabored respirations, skin warm/dry/pink. Vital Signs: 11:36 BP 126 / 79; Pulse 81; Resp 16; Temp 97.8; Pulse Ox 100% ; Weight 90.72 kg; Height 5 [facility] ft. 4 in. (162.56 cm); 12:05 BP 112 / 65; Pulse 76; Resp 18; Temp 98.2; Pulse Ox 100% on R/A; ld1 14:24 BP 118 / 66; Pulse 79; Resp 18; Pulse Ox 100% on R/A; ld1 16:06 BP 121 / 72; Pulse 82; Resp 18; Pulse Ox 100% on R/A; ld1 11:36 Body Mass Index 34.33 (90.72 kg, 162.56 cm) [facility] ED Course: 11:08 Patient arrived in ED. ds1 11:42 Triage completed. [facility] 12:06 Rhea Luis MD is Attending Physician. sp3 12:51 Isabel Valladares, MARCIA is Primary Nurse. ld1 12:52 Patient has correct armband on for positive identification. Placed in gown. Bed in low ld1 position. Call light in reach. Side rails up X2. telemarketing sales representative on. Pulse ox on. NIBP on. Door closed. Noise minimized. Warm blanket given. 12:52 No provider procedures requiring assistance completed. Patient maintains SpO2 ld1 saturation greater than 95% on room air. 14:57 Chest Pa And Lat (2 Views) XRAY In Process Unspecified. EDMS 15:15 SARS-COV-2 RT PCR (Document "Date of Onset" if Symptomatic) Sent. iw 16:28 SARS-COV-2 RT PCR (Document "Date of Onset" if Symptomatic) Sent. ld1 16:57 Arm band placed on right wrist. ld1 16:57 Patient did not have IV access during this emergency room visit. ld1 Administered Medications: 15:32 Drug: Ibuprofen 800 mg Route: PO; ld1 15:32 Follow up: Response: No adverse reaction ld1 Outcome: 16:55 Discharge ordered by . sp3 16:57 Discharged to home ambulatory. ld1 16:57 Condition: stable 16:57 Discharge instructions given to patient, Instructed on discharge instructions, follow up and referral plans. medication usage, Demonstrated understanding of instructions, follow-up care, medications, Prescriptions given X 2. 17:00 Patient left the ED. ld1 Signatures: Dispatcher [employer] [facility] Dasha Guerin ds1 Svetlana Rowe RN RN iw Isabel Valladares RN RN ld1 Rhea Luis MD MD sp3 Beverly Barragan RN RN jh5
[2021-05-20 17:05] VITALS: O2SAT 100
[2021-05-20 17:07] VITALS: TEMP 98.2
[2021-05-20 17:09] VITALS: BP 121/72
== END 2021-05-20 17:00 | disposition home or self-care (01) ==
LOC: ER 11:06
DX: J20.9 Acute bronchitis, unspecified (principal); F17.210 Nicotine dependence, cigarettes, uncomplicated; Z88.1 Allergy status to other antibiotic agents
CPT/HCPCS: 71046; 99285; U0003

== ENCOUNTER 2021-12-03 17:39 | Emergency (ER) | payer SELFPAY ==
--- OUTSIDE RECORDS SUMMARY | 2021-12-03 17:42 | XMS REPORT | Continuity of Care Document ---
:1990 Author Organization [facility] t Address [address] [place] [address] Care Team Providers Name Role Phone Meño Dong MD Primary Care Physician Kiarra JAMISON Attending Clinician Nurse, Urgent Care Attending Clinician Unavailable Doctor Unassigned, Name Attending Clinician Unavailable Dipesh Dash DO Attending Clinician Payers Payer Name Policy Type Policy Number Effective Date Expiration Date S ource Problems Condition Condition Condition Status Onset Resolution [...] 00 l Tachycardi Tachycardi Disease Active 2016-06 M ethodi a a [facility] Hosp[facility] 00 l No known No known Disease Unive rs active active ity of problems problems [facility] Allergies, Adverse Reactions, Alerts Allergy Allergy Status Severity Reaction(s) Onset Inactive Treating Comm ents Source Name Type Date Date Clinician Bina Dennis Active GI 2016-06 Nausea & Meth felipe xacin ty to Intolerance 07-[address] adverse 00:00: Hospita reaction 00 l s to drug Ciproflo Propensi Active Nausea 2016-06 Other Univer s xacin ty to and/or 07-01 reaction( ity of adverse Vomiting 00:00: s): GI [place] reaction 00 Intoleran Medic al s ceNausea Branch & Vomiting Social History Social Habit Start Date Stop Date Quantity Comments Source History of Cigarette Smoker Universi ty of tobacco use [facility] Exposure to Not sure University of SARS-CoV-2 [facility] (event) [place] Tobacco use and 2020-03-07 2020-03-07 Never used Universit y of exposure 00:00:00 00:00:00 [facility] Sex Assigned At [birth year] Universit y of 00:00:00 00:00:00 [facility] Smoking Status Start Date Stop Date Source Current every day smoker 2020-03-07 00:00:00 Uni versity of [facility] Unknown if ever smoked [facility] Medications Ordered Filled Start Stop Current Ordering Indication Dosage Frequency Signature Comments Components Source Medication Medication Date Date Medication? Clinician (SIG) Name Name ALBUTEROL 2021- No Inhale. [facility] ers SULFATE HFA 3-21 -21 ity of INHALE 08:29: 00:00 [place] 51 :00 [facility] ALBUTEROL 2021- No Inhale. [facility] ers SULFATE HFA 3-21 -21 ity of INHALE 08:29: 00:00 [place] 51 :00 [facility] ALBUTEROL 0 Yes [id number] INHALE TWO Univers 90 3-21 PUFFS BY ity of mcg/actuati 00:00: MOUTH [place] on inhaler 00 EVERY 6 Medica l HOURS Branch NEEDED FOR WHEEZING OR SHORTNESS OF BREATH ALBUTEROL Yes [id number] INHALE TWO Univers 90 3-21 PUFFS BY ity of mcg/actuati 00:00: MOUTH [place] on inhaler 00 EVERY 6 Medica l HOURS Branch NEEDED FOR WHEEZING OR SHORTNESS OF BREATH FLUTICASONE Yes [id number] INHALE ONE Univers PROPION-YULY 6-07 PUFF BY ity o f METEROL 00:00: MOUTH TWICE A Medical mcg/actuati DAY Branch on AePB FLUTICASONE Yes [id number] INHALE ONE Univers PROPION-YULY 6-07 PUFF BY ity o f METEROL 00:00: MOUTH 14 TWICE A Medical mcg/actuati DAY Branch on AePB FLUTICASONE Yes [id number] INHALE ONE Univers PROPION-YULY 6-07 PUFF BY ity o f METEROL 00:00: MOUTH TWICE A Medical mcg/actuati DAY Branch on AePB albuterol Yes [id number] 2.5mg Inhale 3 Univers 2.5 mg /3 2-23 mL every 6 ity of mL (0.083 00:00: (six) [place] %) 00 hours as Medical nebulizer needed for Bran ch solution Wheezing or Shortness of Breath. May also nebulize one extra every 6 hours. albuterol Yes [id number] 2.5mg Inhale 3 Univers 2.5 mg /3 2-23 mL every 6 ity of mL (0.083 00:00: (six) [place] %) 00 hours as Medical nebulizer needed for Bran ch solution Wheezing or Shortness of Breath. May also nebulize one extra every 6 hours. albuterol Yes [id number] 2.5mg Inhale 3 Univers 2.5 mg /3 2-23 mL every 6 ity of mL (0.083 00:00: (six) [place] %) 00 hours as Medical nebulizer needed for Bran ch solution Wheezing or Shortness of Breath. May also nebulize one extra every 6 hours. azithromyci Yes [id number] Take 1 Univers n 250 mg 1-11 tablet ity of tablet 00:00: daily x 4 [place] 00 days. Medical Branch albuterol Yes [id number] 2{puff} Inhale 2 Univers 90 1-11 Puffs ity of mcg/actuati 00:00: every 6 [place] as on inhaler 00 (six) Medical hours as Branch needed for Wheezing or Shortness of Breath. azithromyci Yes [id number] Take 1 Univers n 250 mg 1-11 tablet ity of tablet 00:00: daily x 4 [place] 00 days. Medical Branch azithromyci Yes [id number] Take 1 Univers n 250 mg 1-11 tablet ity of tablet 00:00: daily x 4 [place] 00 days. Medical Branch albuterol 2021- No [id number] 2{puff} Inhale 2 Univers 90 1-11 03-21 Puffs ity of mcg/actuati 00:00: 00:00 every 6 [place] on inhaler 00 :00 (six) Medical hours as Branch needed for Wheezing or Shortness of Breath. albuterol 2021- No [id number] 2{puff} Inhale 2 Univers 90 1-11 03-21 Puffs ity of mcg/actuati 00:00: 00:00 every 6 [place] on inhaler 00 :00 (six) Medical hours as Branch needed for Wheezing or Shortness of Breath. benzonatate Yes [id number] 100mg Take 1 Univers 100 mg 1-10 capsule by ity of capsule 00:00: mouth 3 [place] 00 (three) Medical times Branch daily as needed for Cough. benzonatate Yes [id number] 100mg Take 1 Univers 100 mg 1-10 capsule by ity of capsule 00:00: mouth 3 [place] 00 (three) Medical times Branch daily as needed for Cough. benzonatate Yes [id number] 100mg Take 1 Univers 100 mg 1-10 capsule by ity of capsule 00:00: mouth 3 [place] 00 (three) Medical times Branch daily as needed for Cough. esomeprazol 2019-06 Yes Take by Un ana m e magnesium -18 mouth. ity of (NEXIUM 19:24: [place] ORAL) Medical Branch cetirizine 2019-06 Yes Take by Uni vers HCl (ZYRTEC -18 mouth. ity of ORAL) 19:24: [place] [address] Medical Branch ALBUTEROL 2019-06 Yes Inhale. Unive rs SULFATE HFA -18 ity of INHALE 19:24: [place] [address] Medical Branch esomeprazol 2019-06 Yes Take by Un ana m e magnesium 1-18 mouth. ity of (NEXIUM 19:24: [place] ORAL) 12 Medical Branch cetirizine 2019-06 Yes Take by Uni vers HCl (ZYRTEC 1-18 mouth. ity of ORAL) 19:24: [place] 12 Medical Branch esomeprazol 2019-06 Yes Take by Un ana m e magnesium 1-18 mouth. ity of (NEXIUM 19:24: [place] ORAL) 12 Medical Branch cetirizine 2019-06 Yes Take by Uni vers HCl (ZYRTEC 1-18 mouth. ity of ORAL) 19:24: [place] 12 Medical Branch methylPREDN 2019-06 Yes [id number] Take by Univers ISolone 1-18 mouth ity of (MEDROL, 00:00: SEE-INSTRU [place] as CARISSA,) 4 mg 00 CTIONS. Medica l tablets follow Branch package directions azithromyci 2019-06 Yes [id number] 250mg Take 1 Univers n 1-18 tablet by ity of (ZITHROMAX 00:00: mouth [place] Z-CARISSA) 250 00 daily. Medical mg tablet Take 500 Branch mg day 1, then 250 mg days 2 to 5. methylPREDN 2019-06 Yes [id number] Take by Univers ISolone 1-18 mouth ity of (MEDROL, 00:00: SEE-INSTRU [place] CARISSA,) 4 mg 00 CTIONS. Medica l tablets follow Branch package directions azithromyci 2019-06 Yes [id number] 250mg Take 1 Univers n 1-18 tablet by ity of (ZITHROMAX 00:00: mouth [place] Z-CARISSA) 250 00 daily. Medical mg tablet Take 500 Branch mg day 1, then 250 mg days 2 to 5. methylPREDN 2019-06 Yes [id number] Take by Univers ISolone 1-18 mouth ity of (MEDROL, 00:00: SEE-INSTRU [place] CARISSA,) 4 mg 00 CTIONS. Medica l tablets follow Branch package directions azithromyci 2019-06 Yes [id number] 250mg Take 1 Univers n 1-18 tablet by ity of (ZITHROMAX 00:00: mouth [place] Z-CARISSA) 250 00 daily. Medical mg tablet Take 500 Branch mg day 1, then 250 mg days 2 to 5. promethazin 2016-06 Yes 25mg Q6H Take 25 [...] tablet needed for moderate pain. Immunizations Ordered Filled Immunization Date Status Comments [facility] e Immunization Name Name Pneumococcal 2017-05-06 Completed [facility] Conjugate 13-Valent 00:00:00 Hospi arturo Pneumococcal 13 2017-05-06 Completed Universit y of Conjugate, PCV13 00:00:00 [facility] dical (Prevnar 13) Branch Pneumococcal 13 2017-05-06 Completed Universit y of Conjugate, PCV13 00:00:00 [facility] dical (Prevnar 13) Branch Pneumococcal 13 2017-05-06 Completed Universit y of Conjugate, PCV13 00:00:00 [facility] dical (Prevnar 13) Branch Procedures This patient has no known procedures. Plan of Care Planned Activity Planned Date Details Comments Source Future Scheduled Test COVID-19 VACCINE (1) [facility] [code = COVID-19 VACCINE (1)] Future Scheduled Test Screening for [facility] malignant neoplasm of cervix (procedure) [code = 563265314] Future Scheduled Test INFLUENZA VACCINE [facility] [code = INFLUENZA VACCINE] Encounters Start End Encounter Admission Attending Care Care Encounter Source Date/Time Date/Time Type Type Clinicians Facility Department ID 2021-08-28 2021-08-28 Refill JAQUAN Plunkett [id number] Univers 00:00:00 00:00:00 Miya BOOGIE [id number] i José Antonio [id number] Allan WATERS [id number] Me dical NAL 085 Branch BUILDING 2021-06-08 2021-06-08 Letter Nurse, Aamir PARTIDA [id number] Univers 00:00:00 00:00:00 (Out) Urgent Care HEALTH [id number] ity of JORGE [id number] [place] as LUIS?BLEA [phone] Sc homer [address] MEDICAL OFFICE BUILDING 2020-11-15 2020-11-15 Refill Kiarra WYNILESH [id number] 00:00:00 00:00:00 Shipat[place] Boogie [id number] Wink [id number] Professio [phone] nal 085 [facility] 2020-09-04 2020-09-04 Orders Doctor MILO [id number] 00:00:00 00:00:00 Only Unassigned, JEANIE [id number] [facility] [id number] 2020-09-02 2020-09-02 Patient Hardy [facility] [id number] 00:00:00 00:00:00 Outreach [facility] [id number] [facility] [id number] PAVILLION [id number] 2020-09-02 2020-09-02 Telephone Kiarra [facility] [id number] 00:00:00 00:00:00 Anamikabasil Gueydan [id number] Wink [id number] Professio [id number] nal 085 [facility] 2020-08-15 2020-08-15 Office Kiarra [facility] [id number] 15:09:23 15:39:23 Visit Miya Boogie [id number] [place] [id number] Professio [phone] [address] Results This patient has no known results.
[2021-12-03 18:06] LABS: Urine Blood Negative (Negative); Urine Glucose Negative (Negative); Urine Protein Negative (Negative)
[2021-12-03 18:28] LABS: Absolute Lymphocytes (CBC) 2.1 K/uL (0.7-4.9); Hematocrit 41.9 % (36.0-45.0); Lymphocytes % 9.9 % (15.3-44.8); MPV 8.1 fL (7.6-11.3); RBC Red Blood Cell Count 4.71 M/uL (3.86-4.86)
[2021-12-03] MEDS ORDERED: ONDANSETRON 4 MG/2 ML VIAL ONE ×2 (18:41→18:57)
[2021-12-03 18:48] LABS: Albumin 4.3 g/dL (3.4-5.0); Bilirubin Total 0.3 mg/dL (0.2-1.0); Potassium 3.8 mmol/L (3.5-5.1); Protein, Total 8.3 g/dL (6.4-8.2)
[2021-12-03] MEDS ORDERED: METRONIDAZOLE 500mg IVPB 500 MG/100 ML BAG IV ONE (18:50)
[2021-12-03] MEDS ORDERED: FAMOTIDINE 20 MG/2 ML VIAL IV ONE (18:50)
[2021-12-03] MEDS ORDERED: CIPROFLOXACIN HCL 500 MG TAB ONE (18:50)
[2021-12-03] MEDS ORDERED: MORPHINE 4 MG/ML SYR ONE (18:57)
[2021-12-03] MEDS ORDERED: NA CHLORIDE 0.9% 1,000 ML ONE (18:57)
--- NOTE | 2021-12-03 20:04 | RAD REPORT ---
EXAM DESCRIPTION: CT - Chest For Pe Angio - 12/03/2021 7:53 pm CLINICAL HISTORY: Dyspnea, chronic, unclear etiology COMPARISON: Chest For Pe Angio dated 12/09/2020; Chest For Pe Angio dated 08/06/2020; Chest For Pe Ang io dated 01/16/2020Chest For Pe Angio dated 12/09/2020; Chest For Pe Angio dated 08/06/2020; Chest For Pe Angio dated 01/16/2020 TECHNIQUE: Dynamically enhanced axial 3 mm thick images of the chest were obtained during administra tion of <100> mL Isovue 370 IV contrast. Coronal and oblique reconstruction images were generated and reviewed. Exam utilizes a protocol for optimal evaluation of pulmonary arterial tree. Maximum intensity projections 3D imaging was utilized All CT scans are performed using dose optimization technique as appropriate and may include automated exposure control or mA/KV adjustment according to patient size. FINDINGS: Chest Wall: No suspicious thyroid nodules or pathologic lymphadenopathy. Lungs: No acute abnormality. Pleura: No significant effusions or pneumothorax. Mediastinum/monique: No pathologic lymphadenopathy. Moderate circumferential thickened distal esophagus may reflect esophagitis. Small hiatal hernia also noted. Pulmonary arteries/Aorta: No filling defect identified. No aortic aneurysm. Heart: No significant pericardial effusion. Normal heart size. Upper abdomen: No acute abnormality. Bones: No acute abnormality. IMPRESSION: Negative for pulmonary embolism. Moderate thickening of the distal esophagus suggesting gastroesophageal reflux disease. Endoscopy could better evaluate.
--- NOTE | 2021-12-03 20:11 | RAD REPORT ---
EXAM DESCRIPTION: CTAbdomen Pelvis W Contrast - 12/03/2021 7:53 pm CLINICAL HISTORY: RLQ abdominal pain COMPARISON: Abdomen Pelvis W Contrast dated 12/23/2017; Abdomen Pelvis W Contrast dated 12/31/2016 ; Abdomen Pelvis W Contrast dated 07/12/2016; Chest For Pe Angio dated 12/03/2021; Abdomen Exam Limit ed dated 12/03/2021 TECHNIQUE: CT of the abdomen and pelvis was performed. All CT scans are performed using dose optimization technique as appropriate and may include automated exposure control or mA/KV adjustment according to patient size. FINDINGS: Lower chest: Small hiatal hernia. Circumferential thickened distal esophagus suggesting es ophagitis. Liver: No acute abnormality or suspicious lesions. Biliary: No biliary ductal dilatation. Stomach: No significant focal abnormality. Duodenum: No significant focal abnormality. Pancreas: No significant abnormality. Spleen: No significant abnormality. Adrenal: No suspicious lesions. Kidney/ureter: No hydronephrosis. No renal calculi. Retroperitoneum: No retroperitoneal adenopathy. Vascular: No aneurysm. Bowel: No significant focal abnormality. Normal appendix. Peritoneum: No ascites or free air. Bladder: Grossly unremarkable. Reproductive: Multi-septated pelvic mass measuring 8 x 6.9 cm likely arising from the right adnexa. A normal left ovary is seen. Bones: No acute fracture. Other: n/a IMPRESSION: Complex septated pelvic lesion, presumably arising from the right adnexa. Ultrasound cou ld confirm ovarian flow to exclude torsion as a possibility. Normal appendix.
--- NOTE | 2021-12-03 20:17 | RAD REPORT ---
EXAM DESCRIPTION: US - Abdomen Exam Limited - 12/03/2021 8:06 pm CLINICAL HISTORY: ABD PAIN COMPARISON: Abdomen Pelvis W Contrast dated 12/23/2017 FINDINGS: The gallbladder demonstrates no gallstones. No pericholecystic fluid or gallbladder wall t hickening. The common bile duct is normal measuring 2 mm. The liver demonstrates no findings of intrahepatic biliary dilatation. IMPRESSION: Unremarkable examination.
[2021-12-03 20:26] LABS: Blood Morphology Comment NOT SEEN (NOT SEEN); Platelet Estimate INCR; Platelets, Giant PRESENT
--- NOTE | 2021-12-03 20:34 | RAD REPORT ---
EXAM DESCRIPTION: RAD - Chest Single View - 12/03/2021 8:23 pm CLINICAL HISTORY: COUGH COMPARISON: Chest Pa And Lat (2 Views) dated 05/20/2021; Chest Single View dated 12/18/2020; Chest Pa A nd Lat (2 Views) dated 12/09/2020; Chest Single View dated 08/08/2020 FINDINGS: Lines: None. Lungs: No evidence of edema or pneumonia. Pleural: No significant pleural effusions or pneumothorax. Cardiac: The heart size is within normal limits. Bones: No acute fractures. Other: IMPRESSION: No acute cardiopulmonary disease.
[2021-12-03] MEDS ORDERED: PANTOPRAZOLE 40 MG INJ ONE (20:51)
--- NOTE | 2021-12-03 21:22 | ER ---
Nurse's Notes [facility] Name: Jaye Pérez Age: 31 yrs Sex: Female : 1990 Arrival Date: 12/03/2021 Time: 17:42 Bed 14 Private MD: Diagnosis: Abdominal pain, unspecified-ruq/rlq;Elevated white blood cell count;Pelvic and perineal pain-8x6.9 cm right adnexal mass;Esophagitis, unspecified;Tobacco use Presentation: 12/03 18:01 Chief complaint: Patient states: Pt reports that she had been having some chest and ss back discomfort that began 4 days ago, which she believed to be an asthma exacerbation. Prescribed Prednisone two days ago by Dr. Hassan and then shortly after began having R sided abd pain with nausea. Coronavirus screen: Client denies travel out of the [place] in the last 14 days. Ebola Screen: Patient denies exposure to infectious person. Patient denies travel to an Ebola-affected area in the 21 days before illness onset. Initial Sepsis Screen: Does the patient meet any 2 criteria? No. Patient's initial sepsis screen is negative. Does the patient have a suspected source of infection? No. Patient's initial sepsis screen is negative. Risk Assessment: Do you want to hurt yourself or someone else? Patient reports no desire to harm self or others. Onset of symptoms was December 01, 2021. 18:01 Method Of Arrival: Ambulatory ss 18:01 Acuity: JEREMIAH 3 ss Triage Assessment: 22:13 General: Appears in no apparent distress. uncomfortable, Behavior is calm, cooperative, bh1 appropriate for age. GI: Abdomen is round. 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 - Social history:: Smoking status: Patient reports the use of cigarette tobacco products, smokes one-half pack cigarettes per day. Screenin:58 Abuse screen: Denies threats or abuse. Nutritional screening: No deficits noted. [facility] Tuberculosis screening: No symptoms or risk factors identified. Fall Risk None identified. Assessment: 17:57 Pain: Complains of pain in back and chest. 1 18:01 Cardiovascular: No deficits noted. Respiratory: No deficits noted. 1 22:13 GI: Bowel sounds present X 4 quads. Abd is soft Abdomen is tender to palpation in right [facility] lower quadrant. Vital Signs: 18:01 BP 141 / 92; Pulse 98; Resp 17; Temp 98.3(O); Pulse Ox 99% on R/A; Weight 92.99 kg; Height 5 ft. 5 in. (165.10 cm); Pain 7/10; 18:20 BP 129 / 89; Pulse 88; Resp 20; Pulse Ox 98% on R/A; bh1 19:05 BP 138 / 90; Pulse 72; Resp 18; Pulse Ox 98% on R/A; bh1 20:12 BP 144 / 98; Pulse 72; Resp 18; Pulse Ox 100% on R/A; bh1 20:37 BP 137 / 75; Pulse 87; Resp 20; Pulse Ox 97% on R/A; bh1 21:41 BP 130 / 84; Pulse 88; Resp 20; Temp 98.6(O); Pulse Ox 100% on R/A; 1 18:01 Body Mass Index 34.11 (92.99 kg, 165.10 cm) ED Course: 17:42 Patient arrived in ED. rg4 17:42 Richard Castro MD is Attending Physician. kdr 17:50 Shelli Cervantes RN is Primary Nurse. 1 17:58 No apparent distress. Resting quietly. Awaiting ED provider evaluation. 1 17:58 Patient has correct armband on for positive identification. Bed in low position. Call [facility] light in reach. Adult w/ patient. Pulse ox on. NIBP on. 17:58 No provider procedures requiring assistance completed. 1 18:05 Triage completed. ss 18:05 Arm band placed on right wrist. ss 18:20 Inserted saline lock: 20 gauge in right wrist, using aseptic technique. Blood collected.1 18:21 No apparent distress. Resting quietly. Awaiting lab results. 1 19:04 Procalcitonin Sent. 1 19:04 Lactate Sent. 1 19:05 Urine Culture Sent. 1 19:05 Blood Culture Adult (2) Sent. 1 19:06 No apparent distress. Resting quietly. Awaiting lab results, Awaiting radiology [address] Scan. 19:14 Attending Physician role handed off by Richard Castro MD [facility] 19:14 Montrell Li MD is Attending Physician. [facility] 19:54 CT Abd/Pelvis - IV Contrast Only In Process Unspecified. EDMS 19:55 Chest For Pe Angio In Process Unspecified. EDMS 19:[address] Patient taken to ultrasound. 1 19:55 Troponin High Sensitivity Sent. 1 20:08 US Abdomen Limited In Process Unspecified. EDMS 20:12 No apparent distress. Resting quietly. Awaiting lab results, Awaiting radiology results.bh1 20:25 Chest Single View XRAY In Process Unspecified. EDMS 20:37 Troponin High Sensitivity Sent. 1 20:38 No apparent distress. Resting quietly. 1 21:09 US Transvaginal Study (Probe) In Process Unspecified. EDMS 21:20 Dr. Li initiated call to [facility] for transfer. wm 21:36 Pt was accepted for transfer by Sunday Sotelo at 21:36, spoke to Tiff Schwartz. wm 21:42 No apparent distress. transfer approval from receiving facility. 1 22:13 Patient transferred, IV remains in place. [facility] Administered Medications: 10:00 Drug: Rocephin (cefTRIAXone) 1 grams Route: IV; Rate: per protocol; Site: right wrist; [facility] 22:15 Follow up: IV Status: Completed infusion; IV Intake: 10ml [facility] 18:37 Drug: Zofran (Ondansetron) 4 mg Route: IVP; Site: right wrist; [facility] 18:38 Follow up: Response: No adverse reaction [facility] 19:04 Follow up: Response: No adverse reaction bh1 19:03 Drug: Flagyl (metroNIDAZOLE) 500 mg Volume: 100 ml; Route: IVPB; Rate: 200 ml/hr; bh1 Infused Over: 30 mins; Site: right wrist; 20:11 Follow up: IV Status: Completed infusion; IV Intake: 200ml 1 19:03 Drug: Pepcid (famotidine) 20 mg Route: IVP; Site: right wrist; bh1 19:04 Follow up: Response: No adverse reaction 1 19:04 Drug: Cipro (ciprofloxacin) 500 mg Route: PO; bh1 19:05 Follow up: Response: No adverse reaction 1 20:11 Follow up: Response: No adverse reaction 1 19:04 Drug: NS 0.9% 1000 ml Route: IV; Rate: 1 bolus; Site: right wrist; 1 20:12 Follow up: IV Status: Completed infusion; IV Intake: 1000ml 1 19:04 Drug: Zofran (Ondansetron) 4 mg Route: IVP; Site: right wrist; bh1 19:05 Follow up: Response: No adverse reaction 1 19:04 Drug: morphine 4 mg Route: IVP; Infused Over: 4 mins; Site: left wrist; bh1 19:05 Follow up: Response: No adverse reaction 1 20:48 Drug: ProTONIX (pantoprazole) 40 mg Route: IVP; Site: right wrist; bh1 20:48 Follow up: Response: No adverse reaction [facility] 22:16 Drug: Dilaudid (HYDROmorphone) 1 mg Route: IVP; Site: right wrist; 1 22:17 Follow up: Response: No adverse reaction [facility] Medication: 17:58 VIS not applicable for this client. [facility] Point of Care Testing: Urine : 18:20 hCG Reading: Negative; Control Reading: Positive; 1 Intake: 20:11 IV: 200ml; Total: 200ml. bh1 20:12 IV: 1000ml; Total: 1200ml. 1 22:15 IV: 10ml; Total: 1210ml. [facility] Outcome: 21:22 ER care complete, transfer ordered by MD. cadet 22:02 Transferred by private ambulance to [facility]. 1 22:02 Condition: stable 22:02 Demonstrated understanding of instructions. 22:23 Patient left the ED. [facility] Signatures: Dispatcher [employer] Montrell Louis MD MD cha Rittger, Kevin, MD MD kdr Smirch, Shelby, RN RN Isadora Wilder 4 Dina Betancourt Shelli Cervantes RN RN [facility] Corrections: (The following items were deleted from the chart) 18: 17:57 Pain: Complains of pain in abdomen [place] [id number] 18:01 17:57 GI: Bowel sounds present X 4 quads. Abd is soft Abdomen is tender to palpation in [facility] right upper quadrant, left upper quadrant, right lower quadrant, left lower quadrant and abdomen diffusely [facility] 22:14 18:05 Allergies: None; [facility] 22:14 22:14 Allergies: Cipro (Upset stomach); [place] [id number] 22:56 21:20 Pt was accepted for transfer by Sunday Sotelo at 21:36, spoke [facility]
--- NOTE | 2021-12-03 21:22 | EDPHYS ---
Physician Documentation [facility] Name: Jaye Pérez Age: 31 yrs Sex: Female : 1990 Arrival Date: 12/03/2021 Time: 17:42 Bed 14 Private MD: MERVAT Physician Montrell Li HPI: 12/03 19:42 This 31 yrs old Female presents to ER via Ambulatory with complaints of chichi Abdominal Pain. 19:42 The patient presents with abdominal pain in the epigastric area, in the upper abdomen, chichi in the right upper quadrant, right lower quadrant. Onset: The symptoms/episode began/occurred 2 day(s) ago. The symptoms radiate to back. Associated signs and symptoms: Pertinent positives: nausea and vomiting, shortness of breath, vomiting. The symptoms are described as crampy. Modifying factors: The symptoms are alleviated by nothing, the symptoms are aggravated by nothing. 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 [facility] Historical: - Allergies: 22:14 NKDA; [facility] - Home Meds: 22:14 albuterol sulfate 90 mcg/actuation Inhl HFAA 2 puffs every 4-6 hours [Active]; [facility] albuterol sulfate 2.5 mg /3 mL (0.083 %) Inhl nebu 3 mL 3 times per day [Active]; Aimee 180 mg Oral tab 1 tab once daily [Active]; multivitamin Oral tab daily [Active]; Nexium 40 mg Oral cpDR 1 cap 2 times per day [Active]; - PMHx: 18:05 bronchitis/asthma; GERD; PUD; ss - PSHx: 18:05 Dentures; Tonsillectomy; ss - Immunization history:: Client reports having NOT received the Covid vaccine. - Social history:: Smoking status: Patient reports the use of cigarette tobacco products, smokes one-half pack cigarettes per day. ROS: 19:43 Constitutional: Negative for fever, chills, and weight loss, Eyes: Negative for injury, chichi pain, redness, and discharge, ENT: Negative for injury, pain, and discharge, Neck: Negative for injury, pain, and swelling, : Negative for injury, bleeding, discharge, and swelling, MS/Extremity: Negative for injury and deformity, Skin: Negative for injury, rash, and discoloration, Neuro: Negative for headache, weakness, numbness, tingling, and seizure, Psych: Negative for depression, anxiety, suicide ideation, homicidal ideation, and hallucinations, Allergy/Immunology: Negative for hives, rash, and allergies, Endocrine: Negative for neck swelling, polydipsia, polyuria, polyphagia, and marked weight changes, Hematologic/Lymphatic: Negative for swollen nodes, abnormal bleeding, and unusual bruising. 19:43 Cardiovascular: Positive for chest pain, with cough. 19:43 Respiratory: Positive for cough, wheezing. 19:43 Abdomen/GI: Positive for abdominal pain, nausea and vomiting, of the epigastric area, right upper quadrant and right lower quadrant. 19:43 Back: Positive for pain at rest, of the right subscapular area, right mid back and right low back. Exam: 19:43 Constitutional: This is a well developed, well nourished patient who is awake, alert, chichi and in no acute distress. Head/Face: Normocephalic, atraumatic. Eyes: Pupils equal round and reactive to light, extra-ocular motions intact. Lids and lashes normal. Conjunctiva and sclera are non-icteric and not injected. Cornea within normal limits. Periorbital areas with no swelling, redness, or edema. ENT: Nares patent. No nasal discharge, no septal abnormalities noted. Tympanic membranes are normal and external auditory canals are clear. Oropharynx with no redness, swelling, or masses, exudates, or evidence of obstruction, uvula midline. Mucous membranes moist. Neck: Trachea midline, no thyromegaly or masses palpated, and no cervical lymphadenopathy. Supple, full range of motion without nuchal rigidity, or vertebral point tenderness. No Meningismus. Chest/axilla: Normal chest wall appearance and motion. Nontender with no deformity. No lesions are appreciated. Cardiovascular: Regular rate and rhythm with a normal S1 and S2. No gallops, murmurs, or rubs. Normal PMI, no JVD. No pulse deficits. Respiratory: Lungs have equal breath sounds bilaterally, clear to auscultation and percussion. No rales, rhonchi or wheezes noted. No increased work of breathing, no retractions or nasal flaring. Back: No spinal tenderness. No costovertebral tenderness. Full range of motion. Skin: Warm, dry with normal turgor. Normal color with no rashes, no lesions, and no evidence of cellulitis. MS/ Extremity: Pulses equal, no cyanosis. Neurovascular intact. Full, normal range of motion. Neuro: Awake and alert, GCS 15, oriented to person, place, time, and situation. Cranial nerves II-XII grossly intact. Motor strength 5/5 in all extremities. Sensory grossly intact. Cerebellar exam normal. Normal gait. 19:43 Abdomen/GI: Inspection: abdomen appears normal, Bowel sounds: normal, in all quadrants, Palpation: mild abdominal tenderness, moderate abdominal tenderness, in the right upper quadrant, Liver: no appreciated palpable abnormalities, Hernia: not appreciated. 20:43 ECG was reviewed by the Attending Physician. [facility] Vital Signs: 18:01 BP 141 / 92; Pulse 98; Resp 17; Temp 98.3(O); Pulse Ox 99% on R/A; Weight 92.99 kg; ss Height 5 ft. 5 in. (165.10 cm); Pain 7/10; 18:20 BP 129 / 89; Pulse 88; Resp 20; Pulse Ox 98% on R/A; bh1 19:05 BP 138 / 90; Pulse 72; Resp 18; Pulse Ox 98% on R/A; bh1 20:12 BP 144 / 98; Pulse 72; Resp 18; Pulse Ox 100% on R/A; bh1 20:37 BP 137 / 75; Pulse 87; Resp 20; Pulse Ox 97% on R/A; bh1 21:41 BP 130 / 84; Pulse 88; Resp 20; Temp 98.6(O); Pulse Ox 100% on R/A; bh1 18:01 Body Mass Index 34.11 (92.99 kg, 165.10 cm) MDM: 19:15 Patient medically screened. [facility] 19:46 HEART Score: History: Slightly Suspicious (0). Data reviewed: vital signs, nurses [facility] notes, lab test result(s), EKG, radiologic studies, CT scan, plain films, ultrasound. 12/03 17:43 Order name: CBC with Diff; Complete Time: 21:19 kdr 12/03 17:43 Order name: CMP; Complete Time: 18:53 kdr 12/03 17:43 Order name: Lipase; Complete Time: 18:53 kdr 12/03 18:06 Order name: Urine Dipstick-Ancillary; Complete Time: 18:37 [facility] 12/03 18:08 Order name: Urine --Ancillary (enter results); Complete Time: 18:37 [facility] 12/03 18:32 Order name: COVID-19 SARS RT PCR (Document "Date of Onset" if Symptomatic); Complete [email or web address] Time: 20:10 12/03 18:35 Order name: Blood Culture Adult (2) [facility] 12/03 18:37 Order name: Urine Culture [facility] 12/03 18:37 Order name: CT Abd/Pelvis - IV Contrast Only; Complete Time: 20:15 [facility] 12/03 18:40 Order name: Lactate; Complete Time: 19:45 [facility] 12/03 18:40 Order name: Procalcitonin; Complete Time: 19:45 [facility] 12/03 18:54 Order name: US Abdomen Limited; Complete Time: 20:22 [facility] 12/03 19:47 Order name: Troponin High Sensitivity; Complete Time: 21:19 [facility] 12/03 20:26 Order name: Manual Differential; Complete Time: 21:19 [facility] 12/03 19:42 Order name: Chest Single View XRAY; Complete Time: 21:19 [facility] 12/03 19:47 Order name: EKG; Complete Time: 19:48 [facility] 12/03 19:48 Order name: Chest For Pe Angio; Complete Time: 20:10 [facility] 12/03 20:17 Order name: US Transvaginal Study (Probe); Complete Time: 21:48 [facility] 12/03 17:43 Order name: IV Saline Lock; Complete Time: 18:20 [facility] 12/03 17:43 Order name: Labs collected and sent; Complete Time: 18:20 [facility] 12/03 17:43 Order name: Urine Dipstick-Ancillary (obtain specimen); Complete Time: 18:07 [facility] 12/03 17:43 Order name: Urine Test (obtain specimen); Complete Time: 18:20 [facility] 12/03 19:47 Order name: EKG - Nurse/Tech; Complete Time: 20:37 [facility] EC:43 Rate is 78 beats/min. Rhythm is regular. QRS Wister is Normal. [place] interval is normal. QRS chichi interval is normal. QT interval is normal. No Q waves. T waves are Normal. No ST changes noted. Clinical impression: Normal ECG and No evidence of ischemia. Interpreted by me. Reviewed by me. Administered Medications: 10:00 Drug: Rocephin (cefTRIAXone) 1 grams Route: IV; Rate: per protocol; Site: right wrist; bh1 22:15 Follow up: IV Status: Completed infusion; IV Intake: 10ml bh1 18:37 Drug: Zofran (Ondansetron) 4 mg Route: IVP; Site: right wrist; bh1 18:38 Follow up: Response: No adverse reaction bh1 19:04 Follow up: Response: No adverse reaction bh1 19:03 Drug: Flagyl (metroNIDAZOLE) 500 mg Volume: 100 ml; Route: IVPB; Rate: 200 ml/hr; bh1 Infused Over: 30 mins; Site: right wrist; 20:11 Follow up: IV Status: Completed infusion; IV Intake: 200ml bh1 19:03 Drug: Pepcid (famotidine) 20 mg Route: IVP; Site: right wrist; bh1 19:04 Follow up: Response: No adverse reaction bh1 19:04 Drug: Cipro (ciprofloxacin) 500 mg Route: PO; bh1 19:05 Follow up: Response: No adverse reaction bh1 20:11 Follow up: Response: No adverse reaction bh1 19:04 Drug: NS 0.9% 1000 ml Route: IV; Rate: 1 bolus; Site: right wrist; bh1 20:12 Follow up: IV Status: Completed infusion; IV Intake: 1000ml bh1 19:04 Drug: Zofran (Ondansetron) 4 mg Route: IVP; Site: right wrist; bh1 19:05 Follow up: Response: No adverse reaction bh1 19:04 Drug: morphine 4 mg Route: IVP; Infused Over: 4 mins; Site: left wrist; bh1 19:05 Follow up: Response: No adverse reaction bh1 20:48 Drug: ProTONIX (pantoprazole) 40 mg Route: IVP; Site: right wrist; bh1 20:48 Follow up: Response: No adverse reaction bh1 22:16 Drug: Dilaudid (HYDROmorphone) 1 mg Route: IVP; Site: right wrist; bh1 22:17 Follow up: Response: No adverse reaction bh1 Point of Care Testing: Urine : 18:20 hCG Reading: Negative; Control Reading: Positive; 1 Disposition Summary: 12/03/21 21:22 Transfer Ordered Transfer Location: [facility] chichi Reason: Higher level of care chichi Condition: Fair chichi Problem: new chichi Symptoms: have improved chichi Accepting Physician: to [facility](12/03/21 22:23) [facility] Diagnosis - Abdominal pain, unspecified - ruq/rlq chichi - Elevated white blood cell count chichi - Pelvic and perineal pain - 8x6.9 cm right adnexal mass chichi - Esophagitis, unspecified chichi - Tobacco use chichi Forms: - Medication Reconciliation Form chichi - SBAR form chichi Signatures: Dispatcher [employer] EDMS Montrell Li MD MD cha Rittger, Kevin, MD MD [facility] Sandra Ellis RN RN Shelli Cervantes RN RN [facility] Corrections: (The following items were deleted from the chart) 19:45 19:42 Chest Abdomen Pelvis W Con+CT.RAD.BRZ ordered. EDMS EDMS 19:48 19:42 Thorax W/ Con+CT.RAD.BRZ ordered. EDGA EDGA 21:23 21:22 to [facility] 22:14 18:05 Allergies: None; [facility] 22:14 22:14 Allergies: Cipro (Upset stomach); [place] [id number] 22:23 21:23 to [place] [id number]
--- NOTE | 2021-12-03 21:44 | RAD REPORT ---
EXAM DESCRIPTION: US - Transvaginal Study Probe - 12/03/2021 9:07 pm CLINICAL HISTORY: right ovarian cyst/mass Pelvic pain. COMPARISON: PELVIC COMPLETE dated 05/23/2011; Abdomen Pelvis W Contrast dated 12/03/2021 FINDINGS: The uterus is normal in size, shape and echotexture. The uterus measures 9 cm The endometrial stripe measures 10 mm, within normal limits for age The left ovary measures 3 x 1.5 x 2.5 cm with volume of 6 cc. Vascular flow is present. In the right adnexa, complex cystic mass with septa measures 4.4 x 7.3 x 6.7 cm. The cystic portions have low leve l internal echoes this appears to be associated with right ovarian tissue which does demonstrate vasc ular flow No significant pelvic ascites. IMPRESSION: 1. Bilateral ovarian blood flow is present. 2. Complex cystic right adnexal mass is indeterminate but could represent an endometrioma, hydrosalpi nx, cystic neoplasm. Recommend outpatient gynecology referral.
[2021-12-03] MEDS ORDERED: CEFTRIAXONE 1000 MG/VIAL ONE (22:01)
[2021-12-03] MEDS ORDERED: HYDROMORPHONE HCL 1 MG/ML INJ ONE (22:15)
[2021-12-03 23:02] VITALS: BP 130/84; TEMP 98.6; O2SAT 100
--- NOTE | 2021-12-05 17:32 | EKG ---
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
== END 2021-12-03 22:23 | disposition short-term general hospital (02) ==
LOC: ER 17:39
DX: R10.9 Unspecified abdominal pain (principal); D72.829 Elevated white blood cell count, unspecified; N83.8 Other noninflammatory disorders of ovary, fallopian tube and broad ligament; K20.90 Esophagitis, unspecified without bleeding; Z72.0 Tobacco use; K21.9 Gastro-esophageal reflux disease without esophagitis; J45.909 Unspecified asthma, uncomplicated; Z20.822 Contact with and (suspected) exposure to COVID-19
CPT/HCPCS: 36415; 71045; 71275; 74177; 76705; 76830; 80053; 81003; 81025; 83605; 83690; 84145; 84484; 85025; 87040; 87086; 87088; 93005; 99285; C9113; J1170; J2405; J3490; J7030; Q9967; U0003

== ENCOUNTER 2021-12-09 21:30 | Inpatient (IN) | payer SELFPAY ==
[2021-12-09] MEDS ORDERED: ONDANSETRON 4 MG/2 ML VIAL ONE (23:26)
[2021-12-09] MEDS ORDERED: MORPHINE 4 MG/ML SYR ONE (23:26)
[2021-12-09] MEDS ORDERED: NA CHLORIDE 0.9% 1,000 ML ONE (23:27)
[2021-12-09 23:52] LABS: Absolute Lymphocytes (CBC) 2.8 K/uL (0.7-4.9); Hematocrit 39.9 % (36.0-45.0); Lymphocytes % 14.2 % (15.3-44.8); MCV 88.8 fL (80-100); MPV 8.1 fL (7.6-11.3); RBC Red Blood Cell Count 4.49 M/uL (3.86-4.86)
[2021-12-10 00:17] LABS: Albumin 3.9 g/dL (3.4-5.0); Bilirubin Total 0.3 mg/dL (0.2-1.0); Potassium 3.7 mmol/L (3.5-5.1); Protein, Total 7.4 g/dL (6.4-8.2)
[2021-12-10] MEDS ORDERED: HYDROMORPHONE HCL 1 MG/ML INJ ONE ×3 (01:03→22:37)
[2021-12-10] MEDS ORDERED: MORPHINE 4 MG/ML SYR ONE (04:36)
[2021-12-10] MEDS ORDERED: CIPROFLOXACIN 400mg IV 400 MG/200 ML BAG IV ONE (04:36)
[2021-12-10] MEDS ORDERED: FAMOTIDINE 20 MG/2 ML VIAL IV ONE (04:36)
[2021-12-10] MEDS ORDERED: METRONIDAZOLE 500mg IVPB 500 MG/100 ML BAG IV ONE (04:37)
[2021-12-10] MEDS ORDERED: NA CHLORIDE 0.9% 1,000 ML ONE (04:37)
--- NOTE | 2021-12-10 05:26 | P.HP ---
Certification for Inpatient Patient admitted to: Inpatient With expected LOS: <2 Midnights Patient will require the following post-hospital care: None Practitioner: I am a practitioner with admitting privileges, knowledge of patient current condition, hospital course, and medical plan of care. Services: Services provided to patient in accordance with Admission requirements found in Title 42 Section 412.3 of the Code of Federal Regulations <Sherri Lockett - Last Filed: 12/10/21 05:16> Patient History Date of Service: 12/10/21 Reason for admission: Int N/V/Abd Pain, Leukocytosis History of Present Illness: Patient is a 31 y/o F who presented to the ED with complaints of abdominal pain, nausea, and vomiting. Patient reports that she was seen here 4 days ago and transferred for ovarian cyst. She had laproscopic ovarian cystectomy at [facility] and was discharged and told to follow up with OBGYN. She cannot recall the name of the surgeon. She reports feeling well the first 2 days post op then slowly started feeling worse. She was not prescribed any antibiotics upon discharge. In the ED today, her WBC is 19.[address] shows mild infiltrative surrounding the proximal pancreas and the duodenal C-loop appears somewhat thickened, possibly reactive or related to nonspecific duodenitis. Multiloculated cystic appearance of the right ovary decreased in overall size. She was started on cipro/flagyl in ED. Attempts were made to transfer back to [facility], but did not have bed available. They state that they could potenti ally take her in the afternoon. She is admitted here for further management. Home medications list reviewed: Yes - Past Medical/Surgical History Diabetic: No -: peptic ulcers -: gerd -: Asthma -: tonsillectomy Psychosocial/ Personal History: Patient lives at home. She has a significant other. - Family History Family History: Reviewed- Non-Contributory - Social History Smoking Status: Current every day smoker Alcohol use: Yes CD- Drugs: No Caffeine use: Yes Place of Residence: Home <Sherri Lockett - Last Filed: 12/10/21 05:16> Date of Service: 12/10/21 <Arnold Roman - Last Filed: 12/10/21 15:51> Allergies ciprofloxacin [From Cipro] Adverse Reaction (Intermediate, Verified 12/24/17 11:41) Nausea/Vomiting Home Medications: Albuterol Inhaler [Ventolin Inhaler*] 2 puff IN [id number] PRN 08/06/20 predniSONE [Deltasone] 20 mg PO BID #10 tab 08/09/20 Cetirizine HCl [Zyrtec] 1 cap PO DAILY PRN 12/10/21 Esomeprazole Magnesium [Nexium 24Hr] 1 tab PO DAILY 12/10/21 Fluticasone/Salmeterol [Fluticasone-Salmeterol 232-14] 1 puff IN DAILY 12/10/21 Review of Systems Gastrointestinal: Nausea, Vomiting, Abdominal Pain <Sherri Lockett - Last Filed: 12/10/21 05:16> Physical Examination - Physical Exam General: Alert, In no apparent distress HEENT: Atraumatic, PERRLA, EOMI, Sclerae nonicteric Neck: Supple, 2+ carotid pulse no bruit, No LAD, Without JVD or thyroid abnormality Respiratory: Clear to auscultation bilaterally, Normal air movement Cardiovascular: Regular rate/rhythm, Normal S1 S2 Gastrointestinal: Normal bowel sounds, Non-distended, Other (incision sites without infection), Tenderness Musculoskeletal: No tenderness Integumentary: No rashes Neurological: Normal speech, Normal strength at 5/5 x4 extr, Normal tone, Normal affect - Studies Laboratory Data (last 24 hrs) 12/09/21 23:28: Lipase Cancelled 12/09/21 23:28: Sodium 135 L, Potassium 3.7, BUN 9, Creatinine 0.62, Glucose 114 H, Total Bilirubin 0.3, AST 11 L, ALT 22, Alkaline Phosphatase 71, Lipase 169 12/09/21 23:28: WBC 19.7 H, Hgb 13.4, Hct 39.9, Plt Count 430 H <Sherri Lockett - Last Filed: 12/10/21 05:16> - Studies Laboratory Data (last 24 hrs) 12/09/21 23:28: Lipase Cancelled 12/09/21 23:28: Sodium 135 L, Potassium 3.7, BUN 9, Creatinine 0.62, Glucose 114 H, Total Bilirubin 0.3, AST 11 L, ALT 22, Alkaline Phosphatase 71, Lipase 169 12/09/21 23:28: WBC 19.7 H, Hgb 13.4, Hct 39.9, Plt Count 430 H <Arnold Roman - Last Filed: 12/10/21 15:51> Assessment and Plan - Problems (Diagnosis) (1) Leukocytosis Current Visit: Yes Status: Acute Qualifiers: Leukocytosis type: unspecified Qualified Code(s): D72.829 - Elevated white blood cell count, unspecified (2) Intractable nausea and vomiting Current Visit: Yes Status: Acute (3) Abdominal pain Current Visit: Yes Status: Acute Qualifiers: Abdominal location: unspecified location Qualified Code(s): R10.9 - Unspecified abdominal pain (4) Duodenitis Current Visit: Yes Status: Acute (5) Post op infection Current Visit: Yes Status: Acute Qualifiers: Encounter type: initial encounter Postoperative infection type: unspecified type Qualified Code(s): T81.40XA - Infection following a procedure, unspecified, initial encounter - Plan -NPO. Advance diet as tolerated -Continue IV cipro and flagyl -Lipase WNL but CT suggestive of pancreatitis. Continue IVF and monitor lipase -pain management as needed -Monitor and replete electrolytes per protocol -Reconcile and continue home medications -Lovenox for VTE ppx -Full code Discharge Plan: Home Plan to discharge in: 48 Hours - Advance Directives Does patient have a Living Will: No Does patient have a Durable POA for Healthcare: No - Code Status/Comfort Care Code Status Assessed: Yes (Full) Critical Care: No Time Spent Managing Pts Care (In Minutes): 50 <Sherri Lockett - Last Filed: 12/10/21 05:16> Date of Service: 12/10/21 Subjective: HPI as mentioned above Physical Examination: Vitals: Afebrile vital signs are stable Physical exam: Cardiovascular: Within normal limits. Lungs: Within normal limits Abdomen: Within normal limits Neuro: Awake, alert, oriented to person place and time Assessment: 1. Abdominal pain Plan: 1. Continue with current plan of care as mentioned above <Arnold Roman - Last Filed: 12/10/21 15:51>
[2021-12-10] MEDS ORDERED: PROMETHAZINE INJ 25 MG/ML AMP ONE (05:56)
--- NOTE | 2021-12-10 07:04 | EDPHYS ---
Physician Documentation [facility] Name: Jaye Pérez Age: 31 yrs Sex: Female : 1990 Arrival Date: 12/09/2021 Time: 21:38 Bed 23 Private MD: ED Physician Richard Castro HPI: 12/10 08:51 This 31 yrs old Female presents to ER via Ambulatory with complaints of Post Surgical kdr Pain, Vomiting. 08:51 The patient had a recent left ovarian cyst removed at [facility]. That was a few kdr days ago. She initially been seen here and diagnosed with the left ovarian cyst and transferred to [facility] in [place]. Patient states that she waited there for approximately 10 hours in the ER without any 1 addressing her circumstances and therefore she left [facility] and went to [facility]. At [facility] she was treated and had the left ovarian cyst removed laparoscopically. Since then she has had persistent pain that has worsened over the last couple days and now has also started to have some vomiting today. She ran out of pain medications a couple of days ago.. Onset: The symptoms/episode began/occurred 3 day(s) ago. Severity of symptoms: At their worst the symptoms were severe incapacitating in the emergency department the symptoms are unchanged. The patient has not experienced similar symptoms in the past. The patient has been recently seen by a physician: The patient has been recently seen at the [facility] Emergency Department. Historical: - Allergies: 12/09 21:52 NKDA; ld1 - PMHx: 21:52 GERD; PUD; bronchitis/asthma; ld1 - PSHx: 21:52 Dentures; Tonsillectomy; ld1 - Immunization history:: Adult Immunizations up to date, Client reports having NOT received the Covid vaccine. - Social history:: Smoking status: Patient reports the use of cigarette tobacco products, smokes one-half pack cigarettes per day, Patient/guardian denies using alcohol. ROS: 12/10 08:51 Constitutional: Negative for fever, chills, and weight loss, Eyes: Negative for injury, kdr pain, redness, and discharge, ENT: Negative for injury, pain, and discharge, Neck: Negative for injury, pain, and swelling, Cardiovascular: Negative for chest pain, palpitations, and edema, Respiratory: Negative for shortness of breath, cough, wheezing, and pleuritic chest pain, Back: Negative for injury and pain, : Negative for injury, bleeding, discharge, and swelling, MS/Extremity: Negative for injury and deformity, Skin: Negative for injury, rash, and discoloration, Neuro: Negative for headache, weakness, numbness, tingling, and seizure activity. Psych: Negative for depression, anxiety, suicide ideation, homicidal ideation, and hallucinations, Allergy/Immunology: Negative for hives, rash, and allergies, Endocrine: Negative for neck swelling, polydipsia, polyuria, polyphagia, and marked weight changes, Hematologic/Lymphatic: Negative for swollen nodes, abnormal bleeding, and unusual bruising. Abdomen/GI: Positive for abdominal pain, nausea and vomiting, Negative for vomiting, diarrhea, constipation, abdominal cramps, abdominal distension, anorexia, dysphagia, hematemesis, black/tarry stool, rectal pain, rectal bleeding, bowel incontinence. Exam: 08:54 Constitutional: This is a well developed, well nourished patient who is awake, alert, kdr and in no acute distress. Head/Face: Normocephalic, atraumatic. Eyes: Pupils equal round and reactive to light, extra-ocular motions intact. Lids and lashes normal. Conjunctiva and sclera are non-icteric and not injected. Cornea within normal limits. Periorbital areas with no swelling, redness, or edema. Neck: Trachea midline, no thyromegaly or masses palpated, and no cervical lymphadenopathy. Supple, full range of motion without nuchal rigidity, or vertebral point tenderness. No Meningismus. Chest/axilla: Normal chest wall appearance and motion. Nontender with no deformity. No lesions are appreciated. Cardiovascular: Regular rate and rhythm with a normal S1 and S2. No gallops, murmurs, or rubs. Normal PMI, no JVD. No pulse deficits. Respiratory: Lungs have equal breath sounds bilaterally, clear to auscultation and percussion. No rales, rhonchi or wheezes noted. No increased work of breathing, no retractions or nasal flaring. Back: No spinal tenderness. No costovertebral tenderness. Full range of motion. Skin: Warm, dry with normal turgor. Normal color with no rashes, no lesions, and no evidence of cellulitis. MS/ Extremity: Pulses equal, no cyanosis. Neurovascular intact. Full, normal range of motion. Neuro: Awake and alert, GCS 15, oriented to person, place, time, and situation. Cranial nerves II-XII grossly intact. Motor strength 5/5 in all extremities. Sensory grossly intact. Cerebellar exam normal. Normal gait. Psych: Awake, alert, with orientation to person, place and time. Behavior, mood, and affect are within normal limits. 08:54 Abdomen/GI: Inspection: obese Bowel sounds: active, Palpation: soft, mild abdominal tenderness. Vital Signs: 12/09 21:52 BP 146 / 89; Pulse 103; Resp 18; Temp 99.0(TE); Pulse Ox 98% on R/A; Weight 102.06 kg; ld1 Height 5 ft. 5 in. (165.10 cm); Pain 9/10; 22:00 BP 136 / 79; Pulse 90; Resp 17; Pulse Ox 99% on R/A; ll3 23:00 BP 146 / 92; Pulse 91; Resp 18; Pulse Ox 98% on R/A; ll3 12/10 00:09 BP 157 / 82; Pulse 77; Resp 18; Pulse Ox 100% on R/A; ll3 01:43 BP 124 / 78; Pulse 91; Resp 18; Pulse Ox 97% on R/A; ll3 03:00 BP 121 / 73; Pulse 79; Resp 17; Pulse Ox 97% on R/A; ll3 04:30 BP 126 / 83; Pulse 75; Resp 17; Pulse Ox 98% on R/A; ll3 05:43 BP 140 / 86; Pulse 80; Resp 18; Pulse Ox 99% on R/A; ll3 06:47 BP 120 / 81; Pulse 63; Resp 18; Pulse Ox 97% on R/A; ll3 12/09 21:52 Body Mass Index 37.44 (102.06 kg, 165.10 cm) ld1 MDM: 07:04 Patient medically screened. kdr 08:54 Data reviewed: vital signs, nurses notes, lab test result(s). kdr 12/09 23:11 Order name: CBC with Diff; Complete Time: 02:09 kdr 12/09 23:11 Order name: Comprehensive Metabolic Panel; Complete Time: 03:35 kdr 12/10 02:39 Order name: Lipase; Complete Time: 03:35 EDMS 12/10 05:24 Order name: COVID 19 CPL (Document "Date of Onset" if Symptomatic) ll3 12/10 05:52 Order name: COVID 19 CPL EDMS 12/09 23:11 Order name: CT Abd/Pelvis - IV Contrast Only kdr 12/10 06:43 Order name: SARS-COV-2 RT PCR EDMS Administered Medications: 12/09 23:35 Drug: NS 0.9% 1000 ml Route: IV; Rate: 1 bolus; Site: left antecubital; ll3 12/10 01:42 Follow up: Response: No adverse reaction; IV Status: Completed infusion; IV Intake: ll3 1000ml 12/09 23:36 Drug: Zofran (Ondansetron) 4 mg Route: IVP; Site: left antecubital; 3 12/10 01:02 Follow up: Response: No adverse reaction 3 12/09 23:38 Drug: morphine 4 mg Route: IVP; Infused Over: 4 mins; Site: left antecubital; 3 12/10 01:02 Follow up: Response: No adverse reaction ll3 01:00 Drug: Dilaudid (HYDROmorphone) 1 mg Route: IVP; Site: left antecubital; ll3 01:42 Follow up: Response: No adverse reaction ll3 04:30 Drug: Zofran (Ondansetron) 4 mg Route: IVP; Site: left antecubital; ll3 04:33 Drug: NS 0.9% 1000 ml Route: IV; Rate: 1 bolus; Site: left antecubital; ll3 04:38 Drug: Pepcid (famotidine) 20 mg Route: IVP; Site: left antecubital; ll3 04:50 Drug: Flagyl (metroNIDAZOLE) 500 mg Volume: 100 ml; Route: IVPB; Rate: 200 ml/hr; ll3 Infused Over: 30 mins; Site: left antecubital; 05:17 Follow up: IV Status: Completed infusion; IV Intake: 100ml bb 04:51 Drug: morphine 4 mg Route: IVP; Infused Over: 4 mins; Site: left antecubital; ll3 05:37 Drug: Cipro (ciprofloxacin) 400 mg Volume: 200 ml; Route: IVPB; Infused Over: 60 mins; ll3 Site: left antecubital; 05:56 Drug: Phenergan (promethazine) 12.5 mg Route: IVP; Site: left antecubital; ll3 05:56 Drug: Dilaudid (HYDROmorphone) 1 mg Route: IVP; Site: left antecubital; ll3 Disposition Summary: 12/10/21 07:04 Hospitalization Ordered Hospitalization Status: Inpatient Admission kdr Provider: Arnold Roman Location: Telemetry/MedSurg (Inpatient) kdr Condition: Fair kdr Problem: new kdr Symptoms: have improved kdr Bed/Room Type: Standard kdr Room Assignment: 209(12/10/21 08:13) ja1 Diagnosis - Abdominal pain, Generalized - Post Op kdr - Vomiting kdr Forms: - Medication Reconciliation Form kdr - SBAR form kdr Signatures: Dispatcher [employer] EDMS Richard Castro MD MD kdr Mono Hughes RN RN ja1 Isabel Valladares RN RN ld1 Clemencia Bee RN RN ll3 Brittani Pinto RN bb Corrections: (The following items were deleted from the chart) 02:39 02:10 LIPASE+C.LAB.BRZ ordered. EDMS EDMS 08:13 07:04 kdr ja1
--- NOTE | 2021-12-10 07:04 | ER ---
Nurse's Notes [facility] Name: Jaye Pérez Age: 31 yrs Sex: Female : 1990 Arrival Date: 12/09/2021 Time: 21:38 Bed 23 Private MD: Diagnosis: Abdominal pain, Generalized-Post Op;Vomiting Presentation: 12/09 21:52 Chief complaint: Patient states: Left ovarian cyst removed - pt c/o vomiting, severe ld1 abdominal pain. Coronavirus screen: At this time, the client does not indicate any symptoms associated with coronavirus-19. Ebola Screen: No symptoms or risks identified at this time. Initial Sepsis Screen: Does the patient meet any 2 criteria? No. Patient's initial sepsis screen is negative. Does the patient have a suspected source of infection? No. Patient's initial sepsis screen is negative. Risk Assessment: Do you want to hurt yourself or someone else? Patient reports no desire to harm self or others. Onset of symptoms was December 09, 2021. 21:52 Method Of Arrival: Ambulatory ld1 21:52 Acuity: JEREMIAH 3 ld1 Triage Assessment: 21:53 General: Appears in no apparent distress. comfortable, Behavior is calm, cooperative, ld1 appropriate for age. Pain: Complains of pain in abdomen Pain does not radiate. Pain currently is 9 out of 10 on a pain scale. Quality of pain is described as throbbing. EENT: No signs and/or symptoms were reported regarding the EENT system. Neuro: Level of Consciousness is awake, alert, obeys commands, Oriented to person, place, time, situation. Cardiovascular: Capillary refill < 3 seconds Patient's skin is warm and dry. Respiratory: Airway is patent Respiratory effort is even, unlabored. GI: Abdomen is round non-distended, Reports lower abdominal pain, nausea, vomiting. Historical: - Allergies: 21:52 NKDA; ld1 - PMHx: 21:52 GERD; PUD; bronchitis/asthma; ld1 - PSHx: 21:52 Dentures; Tonsillectomy; ld1 - Immunization history:: Adult Immunizations up to date, Client reports having NOT received the Covid vaccine. - Social history:: Smoking status: Patient reports the use of cigarette tobacco products, smokes one-half pack cigarettes per day, Patient/guardian denies using alcohol. Screenin/30 00:10 Abuse screen: Denies threats or abuse. Nutritional screening: No deficits noted. ll3 Tuberculosis screening: No symptoms or risk factors identified. Fall Risk No fall in past 12 months (0 pts). No secondary diagnosis (0 pts). IV access (20 points). Ambulatory Aid- None/Bed Rest/Nurse Assist (0 pts). Gait- Normal/Bed Rest/Wheelchair (0 pts) Mental Status- Oriented to own ability (0 pts). Total Chase Fall Scale indicates No Risk (0-24 pts). Assessment: 12/09 22:00 Reassessment: No changes from previously documented assessment. Patient and/or family ll3 updated on plan of care and expected duration. Pain level reassessed. Patient is alert, oriented x 3, equal unlabored respirations, skin warm/dry/pink. 12/10 01:43 Reassessment: No changes from previously documented assessment. Patient and/or family ll3 updated on plan of care and expected duration. Pain level reassessed. Patient is alert, oriented x 3, equal unlabored respirations, skin warm/dry/pink. 03:00 Reassessment: No changes from previously documented assessment. Patient and/or family ll3 updated on plan of care and expected duration. Pain level reassessed. Patient is alert, oriented x 3, equal unlabored respirations, skin warm/dry/pink. 04:00 Reassessment: No changes from previously documented assessment. Patient and/or family ll3 updated on plan of care and expected duration. Pain level reassessed. Patient is alert, oriented x 3, equal unlabored respirations, skin warm/dry/pink. 05:43 Reassessment: No changes from previously documented assessment. Patient and/or family ll3 updated on plan of care and expected duration. Pain level reassessed. Patient is alert, oriented x 3, equal unlabored respirations, skin warm/dry/pink. 06:47 Reassessment: No changes from previously documented assessment. Patient and/or family ll3 updated on plan of care and expected duration. Pain level reassessed. Patient is alert, oriented x 3, equal unlabored respirations, skin warm/dry/pink. Vital Signs: 12/09 21:52 BP 146 / 89; Pulse 103; Resp 18; Temp 99.0(TE); Pulse Ox 98% on R/A; Weight 102.06 kg; ld1 Height 5 ft. 5 in. (165.10 cm); Pain 9/10; 22:00 BP 136 / 79; Pulse 90; Resp 17; Pulse Ox 99% on R/A; ll3 23:00 BP 146 / 92; Pulse 91; Resp 18; Pulse Ox 98% on R/A; ll3 12/10 00:09 BP 157 / 82; Pulse 77; Resp 18; Pulse Ox 100% on R/A; ll3 01:43 BP 124 / 78; Pulse 91; Resp 18; Pulse Ox 97% on R/A; ll3 03:00 BP 121 / 73; Pulse 79; Resp 17; Pulse Ox 97% on R/A; ll3 04:30 BP 126 / 83; Pulse 75; Resp 17; Pulse Ox 98% on R/A; ll3 05:43 BP 140 / 86; Pulse 80; Resp 18; Pulse Ox 99% on R/A; ll3 06:47 BP 120 / 81; Pulse 63; Resp 18; Pulse Ox 97% on R/A; ll3 12/09 21:52 Body Mass Index 37.44 (102.06 kg, 165.10 cm) ld1 ED Course: 12/09 21:38 Patient arrived in ED. bp1 21:53 Triage completed. ld1 21:53 Arm band placed on right wrist. ld1 22:33 Richard Castro MD is Attending Physician. kdr 23:00 No provider procedures requiring assistance completed. Inserted saline lock: 22 gauge ll3 in left antecubital area, using aseptic technique. Blood collected. 23:38 Clemencia Bee, MARCIA is Primary Nurse. ll3 12/10 00:10 Patient has correct armband on for positive identification. Bed in low position. Call ll3 light in reach. Side rails up X 1. 01:05 CT Abd/Pelvis - IV Contrast Only In Process Unspecified. EDMS 05:37 COVID 19 CPL (Document "Date of Onset" if Symptomatic) Sent. ll3 07:03 Arnold Roman MD is Hospitalizing Provider. kdr Administered Medications: 12/09 23:35 Drug: NS 0.9% 1000 ml Route: IV; Rate: 1 bolus; Site: left antecubital; ll3 12/10 01:42 Follow up: Response: No adverse reaction; IV Status: Completed infusion; IV Intake: ll3 1000ml 12/09 23:36 Drug: Zofran (Ondansetron) 4 mg Route: IVP; Site: left antecubital; ll3 12/10 01:02 Follow up: Response: No adverse reaction ll3 12/09 23:38 Drug: morphine 4 mg Route: IVP; Infused Over: 4 mins; Site: left antecubital; ll3 12/10 01:02 Follow up: Response: No adverse reaction ll3 01:00 Drug: Dilaudid (HYDROmorphone) 1 mg Route: IVP; Site: left antecubital; ll3 01:42 Follow up: Response: No adverse reaction ll3 04:30 Drug: Zofran (Ondansetron) 4 mg Route: IVP; Site: left antecubital; ll3 04:33 Drug: NS 0.9% 1000 ml Route: IV; Rate: 1 bolus; Site: left antecubital; ll3 04:38 Drug: Pepcid (famotidine) 20 mg Route: IVP; Site: left antecubital; ll3 04:50 Drug: Flagyl (metroNIDAZOLE) 500 mg Volume: 100 ml; Route: IVPB; Rate: 200 ml/hr; ll3 Infused Over: 30 mins; Site: left antecubital; 05:17 Follow up: IV Status: Completed infusion; IV Intake: 100ml bb 04:51 Drug: morphine 4 mg Route: IVP; Infused Over: 4 mins; Site: left antecubital; ll3 05:37 Drug: Cipro (ciprofloxacin) 400 mg Volume: 200 ml; Route: IVPB; Infused Over: 60 mins; ll3 Site: left antecubital; 05:56 Drug: Phenergan (promethazine) 12.5 mg Route: IVP; Site: left antecubital; ll3 05:56 Drug: Dilaudid (HYDROmorphone) 1 mg Route: IVP; Site: left antecubital; ll3 Medication: 00:09 VIS not applicable for this client. ll3 Intake: 01:42 IV: 1000ml; Total: 1000ml. ll3 05:17 IV: 100ml; Total: 1100ml. bb Outcome: 07:04 Decision to Hospitalize by Provider. kdr 09:03 Patient left the ED. iw Signatures: Dispatcher [employer] EDMS Richard Castro MD MD kdr Brittani Pinto RN RN Svetlana Diez RN RN iw [place], Brittany bp1 Dibbern, Lauren, RN RN ld1 Clemencia Bee RN RN ll3 Corrections: (The following items were deleted from the chart) 05:25 02:28 Pepcid (famotidine) 20 mg IVP in left antecubital ll3 ll3
[2021-12-10] MEDS ORDERED: ACETAMINOPHEN 500 MG TAB PO PRN (07:31)
[2021-12-10 08:19] VITALS: BMI 37.6
[2021-12-10] MEDS: ENOXAPARIN 40 MG/0.4 ML SQ SCH ×2 (09:00→09:18)
[2021-12-10] MEDS: Ciprofloxacin 200mg IV 200 MG/100 ML IV.SOLN. IV SCH ×2 (09:18→22:35)
[2021-12-10] MEDS: PROMETHAZINE INJ 25 MG/ML AMP IV PRN ×3 (09:18→20:10)
[2021-12-10] MEDS: METRONIDAZOLE 500mg IVPB 500 MG/100 ML BAG IV SCH ×2 (09:19→17:03)
[2021-12-10] MEDS: NA CHLORIDE 0.9% 1,000 ML IV SCH (09:19)
[2021-12-10] MEDS: MORPHINE 4 MG/ML SYR IV PRN ×2 (11:59→20:10)
--- NOTE | 2021-12-10 16:24 | RAD REPORT ---
EXAM DESCRIPTION: CT - Abdomen Pelvis W Contrast - 12/10/2021 6:02 am CLINICAL HISTORY: Abdominal pain, post-op TECHNIQUE: Axial computed tomography images of the abdomen and pelvis with intravenous contrast. S agittal and coronal reformatted images were created and reviewed. This CT exam was performed using one or more of the following dose reduction techniques: automated exposure control, adjustment of t he mA and/or kV according to patient size, and/or use of iterative reconstruction technique. COMPARISON: CT Abdomen Pelvis dated 12/03/2021 FINDINGS: Lung bases: Unremarkable. No mass. No consolidation. Mediastinum: Small hiatal hernia. ABDOMEN: Liver: Unremarkable. No mass. Gallbladder and bile ducts: Unremarkable. No calcified stones. No ductal dilation. Pancreas: Mild infiltrative changes surrounding the proximal pancreas. No ductal dilation. Spleen: Unremarkable. No splenomegaly. Adrenals: Unremarkable. No mass. Kidneys and ureters: Unremarkable. No solid mass. No hydronephrosis. Stomach and bowel: The duodenal C-loop appears somewhat thickened. Moderate stool most pronounced at the proximal to mid large bowel. No obstruction. No appreciable mucosal thickening. PELVIS: Appendix: Normal caliber appendix. No findings to suggest acute appendicitis. Bladder: The urinary bladder is partially decompressed. Reproductive: Multiloculated cystic appearance of the right ovary with interval decrease in size no w measuring approximately 4.9 x 3.5 x 3.1 cm (previously 8 x 6.9 x 4.3 cm). Involuting left ovarian c orpus luteal cyst. The uterus is unremarkable. ABDOMEN and PELVIS: Intraperitoneal space: Unremarkable. No free air. No significant fluid collection. Bones/joints: No acute fracture. No dislocation. Soft tissues: Unremarkable. Vasculature: Unremarkable. No abdominal aortic aneurysm. Lymph nodes: Unremarkable. No enlarged lymph nodes. IMPRESSION: 1. Mild infiltrative surrounding the proximal pancreas. Suggest laboratory correlation for acute pancreatitis. The duodenal C-loop appears somewhat thickened, possibly reactive or related to nonspecific duodenitis. 2. Multiloculated cystic appearance of the right ovary decreased in overall size. 3. Other findings as above. Electronically signed by: Amandeep Higginbotham MD 12/10/2021 1:47 AM CDT Due to temporary technical issues with the PACS/Fluency reporting system, reports are being signed by the in house radiologists without. review as a courtesy to insure prompt reporting. The interpreting radiologist is fully responsible for the content of the report.
[2021-12-11] MEDS ORDERED: FENTANYL CITR 100 MCG/2 ML IV ONE (00:59)
[2021-12-11] MEDS: METRONIDAZOLE 500mg IVPB 500 MG/100 ML BAG IV SCH ×2 (01:59→08:12)
[2021-12-11] MEDS: ONDANSETRON 4 MG/2 ML VIAL IV PRN ×2 (02:03→13:00)
[2021-12-11] MEDS: NA CHLORIDE 0.9% 1,000 ML IV SCH (03:15)
[2021-12-11 04:21] VITALS: O2SAT 99
[2021-12-11] MEDS: HYDROMORPHONE HCL 1 MG/ML INJ IV PRN ×2 (05:14→10:26)
[2021-12-11 06:17] LABS: Absolute Lymphocytes (CBC) 2.3 K/uL (0.7-4.9); Hematocrit 36.1 % (36.0-45.0); Lymphocytes % 14.3 % (15.3-44.8); MCV 87.9 fL (80-100); MPV 8.1 fL (7.6-11.3); RBC Red Blood Cell Count 4.11 M/uL (3.86-4.86)
[2021-12-11 06:36] LABS: Albumin 3.3 g/dL (3.4-5.0); Bilirubin Total 0.3 mg/dL (0.2-1.0); Magnesium 1.9 mg/dL (1.8-2.4); Phosphorus 2.4 mg/dL (2.5-4.9); Potassium 3.6 mmol/L (3.5-5.1); Protein, Total 6.4 g/dL (6.4-8.2)
[2021-12-11] MEDS: ENOXAPARIN 40 MG/0.4 ML SQ SCH (07:16)
[2021-12-11] MEDS: Ciprofloxacin 200mg IV 200 MG/100 ML IV.SOLN. IV SCH (08:12)
[2021-12-11 13:46] VITALS: BP 159/87; TEMP 99.2
--- NOTE | 2021-12-12 23:54 | P.DS ---
Discharge Date: 12/11/21 Disposition: ROUTINE DISCHARGE Discharge Condition: GOOD Reason for Admission: Int N/V/Abd Pain, Leukocytosis Brief History of Present Illness: Patient is a 31 y/o F who presented to the ED with complaints of abdominal pain, nausea, and vomiting. Patient reports that she was seen here 4 days ago and transferred for ovarian cyst. She had laproscopic ovarian cystectomy at [facility] and was discharged and told to follow up with OBGYN. She cannot recall the name of the surgeon. She reports feeling well the first 2 days post op then slowly started feeling worse. She was not prescribed any antibiotics upon discharge. In the ED today, her WBC is 19.[address] shows mild infiltrative surrounding the proximal pancreas and the duodenal C-loop appears somewhat thickened, possibly reactive or related to nonspecific duodenitis. Multi loculated cystic appearance of the right ovary decreased in overall size. She was started on cipro/flagyl in ED. Attempts were made to transfer back to [facility], but did not have bed available. They state that they could potentially take her in the afternoon. She is admitted here for further management. Hospital Course: Patient is improving. Patient is tolerating diet. Patient still has some nausea symptoms but patient was advised to follow with gynecology as an outpatient. Patient will also need to follow with Gastroenterology. At this time, patient is stable for discharge home. Vital Signs/Physical Exam: Temp Pulse Resp BP Pulse Ox 99.2 F 89 18 159/87 H 98 12/11/21 12:00 12/11/21 12:00 12/11/21 12:00 12/11/21 12:00 12/11/21 12:00 General: Alert, In no apparent distress, Oriented x3 Laboratory Data at Discharge: WBC 15.8 K/uL (4.3-10.9) H D 12/11/21 05:33 Hgb 12.3 g/dL (12.0-15.0) 12/11/21 05:33 Hct 36.1 % (36.0-45.0) 12/11/21 05:33 Plt Count 380 K/uL (152-406) 12/11/21 05:33 Sodium 136 mmol/L (136-145) 12/11/21 05:33 Potassium 3.6 mmol/L (3.5-5.1) 12/11/21 05:33 BUN 8 mg/dL (7-18) 12/11/21 05:33 Creatinine 0.52 mg/dL (0.55-1.3) L 12/11/21 05:33 Glucose 96 mg/dL (74-106) 12/11/21 05:33 Phosphorus 2.4 mg/dL (2.5-4.9) L 12/11/21 05:33 Magnesium 1.9 mg/dL (1.8-2.4) 12/11/21 05:33 Total Bilirubin 0.3 mg/dL (0.2-1.0) 12/11/21 05:33 AST 10 U/L (15-37) L 12/11/21 05:33 ALT 18 U/L (12-78) 12/11/21 05:33 Alkaline Phosphatase 68 U/L (45-117) 12/11/21 05:33 Lipase 169 U/L (73-393) 12/09/21 23:28 Lipase Cancelled 12/09/21 23:28 Home Medications: Albuterol Inhaler [Ventolin Inhaler*] 2 puff IN [id number] PRN 08/06/20 Cetirizine HCl [Zyrtec] 1 cap PO DAILY PRN 12/10/21 Esomeprazole Magnesium [Nexium 24Hr] 1 tab PO DAILY 12/10/21 Fluticasone/Salmeterol [Fluticasone-Salmeterol 232-14] 1 puff IN DAILY 12/10/21 Hydrocodone 7.5/APAP 325 [[place] 7.5/325 mg] 1 tab PO Q6H PRN #30 tab 12/11/21 Promethazine Tab [Phenergan] 25 mg PO Q6HP PRN #30 tab 12/11/21 New Medications: Hydrocodone 7.5/APAP 325 [[place] 7.5/325 mg] 1 tab PO Q6H PRN #30 tab PRN Reason: Pain Promethazine Tab [Phenergan] 25 mg PO Q6HP PRN #30 tab PRN Reason: nausea and vomiting Physician Discharge Instructions: OK to d/c IV and d/c home follow up with primary care doctor in 1-2 weeks follow up with [facility] in 1-2 weeks new prescriptions written for patient to be taken to pharmacy call nurses station at [phone] with any questions regarding your admission Diet: AHA Activity: Fall precautions Followup: Shelby Snell MD [ACTIVE - CAN ADMIT] - Time spent managing pt's care (in minutes): 35
== END 2021-12-11 14:13 | disposition home or self-care (01) | DRG 863 ==
LOC: ER 21:30 → ERHOLD 12-10 05:20 → 2ND 12-10 08:44
PROVIDERS: ADMIT Hospitalist; ATTEND Hospitalist
DX: T81.40XA Infection following a procedure, unspecified, initial encounter (principal); K29.80 Duodenitis without bleeding; D72.829 Elevated white blood cell count, unspecified; R11.2 Nausea with vomiting, unspecified; F17.210 Nicotine dependence, cigarettes, uncomplicated; K21.9 Gastro-esophageal reflux disease without esophagitis; J45.909 Unspecified asthma, uncomplicated; Z20.822 Contact with and (suspected) exposure to COVID-19
CPT/HCPCS: 36415; 74177; 80053; 83690; 83735; 84100; 84145; 85025; 96361; 96365; 96375; 99284; J0744; J1170; J1650; J2405; J2550; J3010; J3490; J7030; Q9967; U0003

== ENCOUNTER 2023-01-15 08:51 | Emergency (ER) | payer OTHER, SELFPAY ==
[2023-01-15] MEDS ORDERED: KETOROLAC 30 MG/ML INJ ONE (09:10)
[2023-01-15] MEDS ORDERED: NA CHLORIDE 0.9% 1,000 ML ONE (09:10)
[2023-01-15] MEDS ORDERED: ONDANSETRON 4 MG/2 ML VIAL ONE (09:10)
[2023-01-15] MEDS ORDERED: FAMOTIDINE 20 MG/2 ML VIAL IV ONE (09:10)
[2023-01-15 09:15] LABS: Absolute Lymphocytes (CBC) 3.6 K/uL (0.7-4.9); Hematocrit 19.5 % (36.0-45.0); Lymphocytes % 19.6 % (15.3-44.8); MCV 89.8 fL (80-100); MPV 7.8 fL (7.6-11.3); RBC Red Blood Cell Count 2.17 M/uL (3.86-4.86)
[2023-01-15 09:31] LABS: Albumin 3.1 g/dL (3.4-5.0); Bilirubin Total 0.1 mg/dL (0.2-1.0); Potassium 3.8 mEq/L (3.5-5.1); Protein, Total 6.1 g/dL (6.4-8.2)
--- OUTSIDE RECORDS SUMMARY | 2023-01-15 09:45 | XMS REPORT | Continuity of Care Document ---
:1990 Author Organization [facility] t Address [address] [facility] [address] [place] [address] Care Team Providers Name Role Phone Diana Linton MD Primary Care Physician BECKIE LIMON Attending Clinician Unavailable BECKIE LIMON Attending Clinician Unavailable NEHAL WALTER Attending Clinician Unavailable Nehal Walter DO Attending Clinician [email or web address] Attending Clinician Unavailable AMY JEONG Attending Clinician Unavailable Amy Jeong MD Attending Clinician ALFRED MORAN Attending Clinician Unavailable Alfred Moran MD Attending Clinician Pcp, Patient Does Not Have A Attending Clinician [phone] Doctor Unassigned, [place] Attending Clinician Unavailable Asya Presley MD Attending Clinician [phone] Sourav Ayers MD Attending Clinician Daniel Villatoro MD Attending Clinician [phone] Shantell Asif CRNA Attending Clinician Gilda Butler Attending Clinician GILDA BUTLER Attending Clinician Unavailable VARSHA MCGEE Attending Clinician Unavailable Varsha Mcgee MD Attending Clinician Anjum Espinal DO Attending Clinician Nurse, [facility] Attending Clinician Unavailable Dawn Daniel Attending Clinician DAWN MORALES Attending Clinician Unavailable ANJUM ESPINAL Attending Clinician Unavailable ANJUM ESPINAL Attending Clinician Unavailable Abiel Dash DO Attending Clinician MELISA NOEL Attending Clinician Unavailable MILO CASTELAN Attending Clinician Unavailable MARIA E CHAPMAN Attending Clinician Unavailable BRIANDA JUNIOR Attending Clinician Unavailable Payton Lynne Attending Clinician Siddharth Edward Attending Clinician [phone] [email or web address] Admitting Clinician Unavailable AMY JEONG Admitting Clinician Unavailable ALFRED MORAN Admitting Clinician Unavailable SOURAV AYERS Admitting Clinician Unavailable VARSHA MCGEE Admitting Clinician Unavailable Varsha Mcgee MD Admitting Clinician MELISA NOEL Admitting Clinician Unavailable Payton Lynne Admitting Clinician Payers Payer Name Policy Type Policy Number Effective Date Expiration Date S charisma PHCS GENERIC [id number] 2021 00:00:00 Problems Condition Condition Condition Status Onset Resolution Last Treating Co mments Source Name Details Category Date Date Treatment Clinician Date Intractabl Intractabl Disease Active M ethodi e e 12-05 st abdominal abdominal 00:00: [facility] pain pain 00 l CHEST CHEST Diagnosis Active 2021-12-14 Mem oria PAINS,VOMI PAINS,VOMI 12-04 21:44:00 l TING,INFEC TING,INFEC 00:00: [place] TION TION 00 Active 12/04/2021 [facility] [place] 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 ulcer 07-12 st disease disease 00:00: Hospita 00 l Anxiety Anxiety Disease Active 2016-06 Method[facility] 07-12 st 00:00: Hospita 00 l Iron Iron Disease Active 2016-06 [facility] deficiency deficiency 07-12 anemia anemia 00:00: Hospita 00 l Dehydratio Dehydratio Disease Active 2016-06 M annelieseodi n n 07-06 st 00:00: Hospita 00 l Tachycardi Tachycardi Disease Active 2016-06 M annelieseodi a a 07-04 00:00: Hospita 00 l INTRACTABL INTRACTAB Diagnosis Active 2015-062016-04-20 Memoria E VOMITING LE 0-27 16:37:00 l VOMITING 00:00: Eb Active 04[facility]08[facility] ABDOMINAL ABDOMINAL Diagnosis Active 2015-062016-04-08 [facility] PAIN PAIN 0-27 15:58:00 l Active 00:00: Eb 04/08/2016 [facility] INTRATABLE INTRATABL Diagnosis Active 2016-01-15 [facility]oria ABD E ABD 12-20 12:01:00 l PAIN,VOMIT PAIN,VOMIT 00:00: [place] ING,DEHYDR ING,DEHYDR 00 ATION ATION Active 12/21/2015 [facility] VOMITING VOMITING Diagnosis Active 2015-12-21 Memoria Active 12-20 19:15:00 l 12/21/2015 00:00: Garry gracia [facility] 00 [place] VOMITING/S VOMITING/ Diagnosis Active 2016-01-12 Memoria TOMACH STOMACH 12-19 09:13:00 l PAIN PAIN 00:00: [place] Active 12/20/2015 [facility] No known No known Disease Unive rs active active ity of problems problems [place] [facility] Gastric Gastric Problem Active 2021-12-07 Nv moria ulcer ulcer 21:14:31 l (disorder) (disorder) Junior flood Active Problem 12/07/2021 [facility] [place] CYCLICAL CYCLICAL Diagnosis Active 2016-04-20 Memoria VOMITING, VOMITING, 16:37:00 l INTRACTABL INTRACTABL Junior [facility] Active [facility] History of Past Illness Condition Condition Condition Status Onset Resolution Last Treating Co mments Source Name Details Category Date Date Treatment Clinician Date Discharge Discharge Problem 2015-062016-04-14 2016-04-14 Memoria Diagnosis: Diagnosis: 00:11:43 00:11:43 l Abdominal Abdominal 05:00: [place] pain, pain, 00 acute, acute, epigastric epigastric 6 04/14/2016 [facility] Discharge Discharge Problem 2015-12-24 2015-12-24 Memoria Diagnosis: Diagnosis: 12-19 00:19:47 00:19:47 l Leukocytos Leukocytos 05:00: Junior flood is is 00 12/20/2015 12/24/2015 [facility] Discharge Discharge Problem 2015-12-24 2015-12-24 Memoria Diagnosis: Diagnosis: 12-19 00:19:47 00:19:47 l Abdominal Abdominal 05:00: [place] pain pain 00 12/20/2015 12/24/2015 [facility] Allergies, Adverse Reactions, Alerts Allergy Allergy Status Severity Reaction(s) Onset Inactive Treating Comm ents Source Name Type Date Date Clinician Ciproflo Propensi Active GI 2016-06 Nausea & Meth felipe xacin ty to Intolerance 07-[address] adverse 00:00: Hospita reaction 00 l s to drug CIPROFLO DRUG Active Med N/V 2016-06 Univers XACIN INGREDI 07-01 ity of 00:00: [address] Branch Ciproflo Propensi Active Nausea 2016-06 Other Univer s xacin ty to and/or 07-01 reaction( ity of adverse Vomiting 00:00: s): GI [place] reaction 00 Intoleran Medic al s ceNausea Branch & Vomiting No Known No Known Active Memori a Medicati Medicati l on on Eb Allergie Allergvero s s Social History Social Habit Start Date Stop Date Quantity Comments Source History of tobacco Cigarette Smoker [facility] Gender identity [facility] Sexual orientation [facility] History of Social 2022-08-19 2022-08-[address] function 00:00:00 00:00:00 Hospital Exposure to 2022-04-01 2022-04-11 Not sure University SARS-CoV-2 (event) 00:00:00 06:01:00 [facility] Tobacco use and 2020-03-07 2020-03-07 Smokeless Universit y of exposure 00:00:00 00:00:00 tobacco non-user [facility] Social History 2016-04-08 2016-04-08 [facility] 22:45:24 22:45:24 Sex [birth year] At [birth year] [employer] 00:00:00 00:00:00 Hospital Smoking Status Start Date Stop Date Source Smokes tobacco daily 2020-03-07 00:00:00 Univers ity of [facility] Tobacco smoking consumption Meth [facility] unknown Medications Ordered Filled Start Stop Current Ordering Indication Dosage Frequency Signature Comments Components Source Medication Medication Date Date Medication? Clinician (SIG) Name Name iopamidol 2022- No [id number] 70mL 70 mL, U nivers (ISOVUE 01-13 Intravenou ity o f 370-500 mL) 11:15: 10:24 s, ONCE, 1 [place] injection 00 :00 dose, On Medica l 70 mL Trudy 01/13/23 Branch at 0615, Routine metoclopram 2022- No 10mg 10 mg, Uni vers rebecca HCl 01-13 Slow IV ity of (REGLAN) 10:15: 10:28 Push, [place] injection 00 :00 ONCE, 1 Medical 10 mg dose, On Branch Trudy 01/13/23 at 0515, VIRGILIO NaCl 0.9% 2022- No 1000mL at 999 Uni vers (NS) bolus 01-13 mL/hr, ity of infusion 08:45: 09:00 1,000 mL, [place] as 1,000 mL 00 :00 IV Medical Infusion, Branch ONCE, 1 dose, On Trudy 01/13/23 at 0345, VIRGILIO proMETHazin 2022- No 12.5mg 12.5 mg, Univers e 01-13 IV ity of (PHENERGAN) 08:30: 08:24 Piggyback, [place] 12.5 mg in 00 :00 ONCE, 1 Medica l NaCl 0.9% dose, On Branch (NS) 50 mL Trudy 01/13/23 IV at 0330, piggyback VIRGILIO famotidine 2022- No 20mg 20 mg, Univ ers (PEPCID 01-13 Slow IV ity of (PF)) 08:00: 08:00 Push, [place] injection 00 :00 ONCE, 1 Medical 20 mg dose, On Branch Trudy 01/13/23 at 0300, VIRGILIO cetirizine 2022- No Take by Uni vers HCl (ZYRTEC 01-13 mouth. ity o f ORAL) 06:17: 00:00 [place] 24 :00 Medical Branch ondansetron 3-0 Yes [id number] 4mg Take 1 Univers 4 mg 8-03 tablet by ity of disintegrat 00:00: mouth [place] ing tablet 00 every 8 Medica l (eight) Branch hours as needed for Nausea and Vomiting (N/V). ondansetron 3-0 3- No [id number] 4mg Take 1 Univers 4 mg 8-03 08-03 tablet by ity of disintegrat 00:00: 00:00 [place] tablet 00 :00 every 8 Medica l (eight) Branch hours as needed for Nausea and Vomiting (N/V). ondansetron 3-0 3- No [id number] 4mg Take 1 Univers 4 mg 8-03 08-03 tablet by ity of disintegrat 00:00: 00:00 [place] tablet 00 :00 every 8 Medica l (eight) Branch hours as needed for Nausea and Vomiting (N/V). ondansetron 2023-0 3- No [id number] 4mg Take 1 Univers 4 mg 8-03 08-03 tablet by ity of disintegrat 00:00: 00:00 [place] tablet 00 :00 every 8 Medica l (eight) Branch hours as needed for Nausea and Vomiting (N/V). ondansetron 3-0 3- No [id number] 4mg Take 1 Univers 4 mg 8-03 08-03 tablet by ity of disintegrat 00:00: 00:00 [place] tablet 00 :00 every 8 Medica l (eight) Branch hours as needed for Nausea and Vomiting (N/V). proMETHazin Yes [id number] 12.5mg Insert 1 Univers e 12.5 mg 7-30 Suppositor [place]y of suppository 00:00: [place] 00 rectum Medical every 6 Branch (six) hours as needed for Nausea and Vomiting (N/V). ondansetron Yes [id number] 4mg Take 1 Univers 4 mg 7-30 tablet by ity of disintegrat 00:00: mouth [place] ing tablet 00 every 8 Medica l (eight) Branch hours as needed for Nausea and Vomiting (N/V). proMETHazin Yes [id number] 12.5mg Insert 1 Univers e 12.5 mg 7-30 Suppositor ity of suppository 00:00: y [place] 00 rectum Medical every 6 Branch (six) hours as needed for Nausea and Vomiting (N/V). ondansetron 2022- No [id number] 4mg Take 1 Univers 4 mg 7-30 08-03 tablet by ity of disintegrat 00:00: 00:00 [place] tablet 00 :00 every 8 Medica l (eight) Branch hours as needed for Nausea and Vomiting (N/V). FENTanyl PF 2022- No 50ug 50 mcg, Un ana m (SUBLIMAZE 01-06 Slow IV ity o f (PF)) 08:30: 07:34 Push, [place] injection 00 :00 ONCE, 1 Medical 50 mcg dose, On Branch Trudy 01/06/23 at 0330, Routine iopamidol 2022- No [id number] 75mL 75 mL, U nivers (ISOVUE 01-06 Intravenou ity o f 370-500 mL) 08:15: 07:23 s, ONCE, 1 [place] injection 00 :00 dose, On Medica l 75 mL [place] Branch 01/06/23 at 0315, Routine NaCl 0.9% 0 Yes 1000mL at 999 Univ ers (NS) IV 7-27 mL/hr, ity of infusion 08:00: Intravenou [place] as 1,000 mL 00 s, Medical CONTINUOUS Branch , Starting on Trudy 01/06/23 at 0300, Until Discontinu ed, Routine ketorolac 2022- No 30mg 30 mg, Unive rs (TORADOL) 01-06 Slow IV ity of injection 07:30: 06:44 Push, [place] 30 mg 00 :00 ONCE, 1 Medical dose, On Branch Trudy 01/06/23 at 0230, Routine ondansetron 2022- No 4mg 4 mg, Slow Univers (ZOFRAN 01-06 IV Push, ity of (PF)) 06:45: 06:44 ONCE, 1 [place] injection 4 00 :00 dose, On Medi magaly mg [place] Branch 01/06/23 at 0145, VIRGILIO ibuprofen Yes [id number] 800mg Take 1 U nivers 800 mg - tablet by ity of tablet 00:00: mouth [place] 00 every 8 Medical (eight) Branch hours as needed for Alternate with [place] for pain scale 1-3. ondansetron Yes [id number] 4mg Take 1 Univers (ZOFRAN) 4 01-06 tablet by ity of mg tablet 00:00: mouth [place] 00 every 8 Medical (eight) Branch hours as needed for Nausea and Vomiting (N/V). HYDROcodone 2022- Yes [id number] 1{tbl} Take 1 U nivers -acetaminop 7- 08-04 tablet by it y of hen (NORCO) 00:00: 04:59 mouth [place] 10-325 mg 00 :00 every 6 Medical tablet (six) Branch hours as needed for Pain (scale 7-10) for up to 7 days. Indication s: acute pain HYDROcodone 2022-0 2022- Yes [id number] 1{tbl} Take 1 U nivers -acetaminop 7-27 08-04 tablet by it y of hen (NORCO) 00:00: 04:59 mouth [place] 10-325 mg 00 :00 every 6 Medical tablet (six) Branch hours as needed for Pain (scale 7-10) for up to 7 days. Indication s: acute pain HYDROcodone 2022-2022- No [id number] 1{tbl} Take 1 U nivers -acetaminop 7-27 08-03 tablet by it y of hen (NORCO) 00:00: 00:00 mouth [place] 10-325 mg 00 :00 every 6 Medical tablet (six) Branch hours as needed for Pain (scale 7-10) for up to 7 days. Indication s: acute pain ketorolac 2021-06 No 30mg 30 mg, Unive rs (TORADOL) 0-30 10-30 Slow IV ity of injection 12:30: 11:32 Push, [place] 30 mg 00 :00 ONCE, 1 Medical dose, On Branch 04/11/22 at 0730, Routine iopamidol 2021-06 No [id number] 74mL 74 mL, U nivers (ISOVUE 0-23 10-23 Intravenou ity o f 370-500 mL) 14:00: 13:00 s, ONCE, 1 [place] injection 00 :00 dose, On Medica l 74 mL [place] Branch 04/04/22 at 0900, Routine HYDROcodone 2021-06 No 1{tbl} 1 tablet, Univers -acetaminop 0-23 10-23 Oral, ity of hen (NORCO 13:00: 12:55 ONCE, 1 [place] 5) 5-325 mg 00 :00 dose, On Medi magaly tablet 1 Sun Branch tablet 04/04/22 at 0800, VIRGILIO dexamethaso 2021-06 No 8mg 8 mg, Slow Univers ne sod phos 0-23 10-23 IV Push, ity of PF 13:00: 13:00 ONCE, 1 [place] injection 8 00 :00 dose, On Medi magaly mg Sun Branch 04/04/22 at 0800, 1 mL azithromyci 2021-06 Yes [id number] 250mg Z-Carissa = Univers n 0-23 500 mg day ity of (ZITHROMAX 00:00: 1, [place] Z-CARISSA) 250 00 250 mg Medical mg tablet days 2 to Branc h 5. acetaminoph 2021-06 Yes [id number] 1{tbl} Take 1 Un ana m en-codeine 0-23 tablet by ity of 300-30 mg 00:00: mouth [place] tablet 00 every 6 Medical (six) Branch hours as needed for Pain (scale 7-10). Indication s: acute pain azithromyci 2021-06 Yes [id number] 250mg Z-Carissa = Univers n 0-23 500 mg day ity of (ZITHROMAX 00:00: 1, [place] Z-CARISSA) 250 00 250 mg Medical mg tablet days 2 to Branc h 5. acetaminoph 2021-06 Yes [id number] 1{tbl} Take 1 Un ana m en-codeine 0-23 tablet by ity of 300-30 mg 00:00: mouth [place] tablet 00 every 6 Medical (six) Branch hours as needed for Pain (scale 7-10). Indication s: acute pain azithromyci 2021-06 Yes [id number] 250mg Z-Carissa = Univers n 0-23 500 mg day ity of (ZITHROMAX 00:00: 1, then [place] Z-CARISSA) 250 00 250 mg Medical mg tablet days 2 to Branc h 5. acetaminoph 2021-06 Yes [id number] 1{tbl} Take 1 Un ana m en-codeine 0-23 tablet by ity of 300-30 mg 00:00: mouth [place] tablet 00 every 6 Medical (six) Branch hours as needed for Pain (scale 7-10). Indication s: acute pain predniSONE 2021-06- No [id number] 20mg Take 1 Univers 20 mg 0-23 10-27 tablet by ity of tablet 00:00: 04:59 mouth in [place] 00 :00 the Medical morning Branch and 1 tablet in the evening. Do all this for 3 days. esomeprazol 0 Yes 20mg QD Take 20 mg Methodi e (NexIUM) - by mouth st 20 MG 08:05: daily Hospita capsule 19 before l breakfast. esomeprazol 2021-0 Yes 20mg QD Take 20 mg Methodi e (NexIUM) -[address] 20 MG 08:05: daily Hospita capsule 19 before l breakfast. cetirizine 2021-0 Yes 10mg QD Take 10 mg M ethodi (ZyrTEC) 10 12-[address] MG tablet 08:05: daily. Hospit a 19 l cetirizine 2021-0 Yes 10mg QD Take 10 mg M ethodi (ZyrTEC) 10 12-[address] MG tablet 08:05: daily. Hospit a 19 l esomeprazol 0 Yes 20mg QD Take 20 mg Methodi e (NexIUM) - by mouth st 20 MG 08:05: daily Hospita capsule 19 before l breakfast. cetirizine 0 Yes 10mg QD Take 10 mg M ethodi (ZyrTEC) 10 12-[address] MG tablet 08:05: daily. Hospit a 19 l esomeprazol 0 Yes 20mg QD Take 20 mg Methodi e (NexIUM) 12-[address] 20 MG 08:05: daily Hospita capsule 19 before l breakfast. cetirizine 0 Yes 10mg QD Take 10 mg M ethodi (ZyrTEC) 10 12-[address] MG tablet 08:05: daily. Hospit a 19 l ranitidine 2021- No 150mg QD Take 150 M ethodi (ZANTAC) 6-25 06-[address] 150 MG 15:15: 00:00 mouth Hospita tablet 41 :00 nightly as l needed for heartburn. promethazin 2021- No 25mg Q6H Take 25 mg Methodi e 6-25 06-[address] (PHENERGAN) 15:15: 00:00 every 6 Ho spita 25 MG 35 :00 (six) l tablet hours as needed for nausea or vomiting. acetaminoph 2021- No 1{tbl} Q4H Take 1 M ethodi en-codeine 6-25 06-[address] (TYLENOL 15:15: 00:00 mouth Hospita WITH 26 :00 every 4 l CODEINE #3) (four) 300-30 mg hours as per tablet needed for moderate pain. ibuprofen 2021- No 600mg Q6H Take 1 Meth felipe (ADVIL) 600 6- 07-[address] MG tablet 00:00: 04:59 (600 mg Hosp caroline 00 :00 total) by l mouth every 6 (six) hours as needed for mild pain for up to 30 days. acetaminoph 2021- [place] [id number] 1{tbl} Q4H Take 1 Methodi en-codeine 6-25 07-[address] (TYLENOL 00:00: 04:59 mouth Hospita WITH 00 :00 every 4 l CODEINE #3) (four) 300-30 mg hours as per tablet needed for moderate pain for up to 7 days .acute pain. fluticasone Yes 1{puff} Q.5D Inhale 1 Methodi propion-yuly 5-[address] meteroL 00:00: (two) Hospita 232-14 00 times a l mcg/actuati day. on aerosol powdr breath activated fluticasone Yes 1{puff} Q.5D Inhale 1 Methodi propion-yuly 5-[address] meteroL 00:00: (two) Hospita 232-14 00 times a l mcg/actuati day. on aerosol powdr breath activated fluticasone Yes 1{puff} Q.5D Inhale 1 Methodi propion-yuly 5-[address] meteroL 00:00: (two) Hospita 232-14 00 times a l mcg/actuati day. on aerosol powdr breath activated fluticasone Yes 1{puff} Q.5D Inhale 1 Methodi propion-yuly 5-[address] meteroL 00:00: (two) Hospita 232-14 00 times a l mcg/actuati day. on aerosol powdr breath activated ALBUTEROL 2021- No Inhale. [facility] ers SULFATE HFA 3-21 -21 ity of INHALE 08:29: 00:00 [place] 51 :00 Medical Branch ALBUTEROL 2021-0 2021- No Inhale. [facility] ers SULFATE HFA 3-21 -21 ity of INHALE 08:29: 00:00 [place] 51 :00 Medical Branch ALBUTEROL 2021-0 Yes [id number] INHALE TWO Univers 90 3-21 PUFFS BY ity of mcg/actuati 00:00: MOUTH [place] on inhaler 00 EVERY 6 Medica l HOURS Branch NEEDED FOR WHEEZING OR SHORTNESS OF BREATH ALBUTEROL 0 Yes [id number] INHALE TWO Univers 90 3-21 PUFFS BY ity of mcg/actuati 00:00: MOUTH [place] on inhaler 00 EVERY 6 Medica l HOURS Branch NEEDED FOR WHEEZING OR SHORTNESS OF BREATH ALBUTEROL 2021-0 Yes [id number] INHALE TWO Univers 90 3-21 PUFFS BY ity of mcg/actuati 00:00: MOUTH [place] on inhaler 00 EVERY 6 Medica l HOURS Branch NEEDED FOR WHEEZING OR SHORTNESS OF BREATH ALBUTEROL 2021-0 Yes [id number] INHALE TWO Univers 90 3-21 PUFFS BY ity of mcg/actuati 00:00: MOUTH [place] on inhaler 00 EVERY 6 Medica l HOURS Branch NEEDED FOR WHEEZING OR SHORTNESS OF BREATH ALBUTEROL 2021-0 Yes [id number] INHALE TWO Univers 90 3-21 PUFFS BY ity of mcg/actuati 00:00: MOUTH [place] on inhaler 00 EVERY 6 Medica l HOURS Branch NEEDED FOR WHEEZING OR SHORTNESS OF BREATH ALBUTEROL 2021-0 Yes [id number] INHALE TWO Univers 90 3-21 PUFFS BY ity of mcg/actuati 00:00: MOUTH [place] on inhaler 00 EVERY 6 Medica l HOURS Branch NEEDED FOR WHEEZING OR SHORTNESS OF BREATH ALBUTEROL 2021-0 Yes [id number] INHALE TWO Univers 90 3-21 PUFFS BY ity of mcg/actuati 00:00: MOUTH [place] on inhaler 00 EVERY 6 Medica l HOURS Branch NEEDED FOR WHEEZING OR SHORTNESS OF BREATH ALBUTEROL 2021-0 Yes [id number] INHALE TWO Univers 90 3-21 PUFFS BY ity of mcg/actuati 00:00: MOUTH [place] on inhaler 00 EVERY 6 Medica l HOURS Branch NEEDED FOR WHEEZING OR SHORTNESS OF BREATH ALBUTEROL 2021-0 Yes [id number] INHALE TWO Univers 90 3-21 PUFFS BY ity of mcg/actuati 00:00: MOUTH [place] on inhaler 00 EVERY 6 Medica l HOURS Branch NEEDED FOR WHEEZING OR SHORTNESS OF BREATH ALBUTEROL 2021-0 3- No [id number] INHALE TWO Univers 90 3-21 08-03 PUFFS BY ity of mcg/actuati 00:00: 00:00 MOUTH [place] on inhaler 00 :00 EVERY 6 Medica l HOURS Branch NEEDED FOR WHEEZING OR SHORTNESS OF BREATH FLUTICASONE 2020-0 Yes [id number] INHALE ONE Univers PROPION-YULY 6-07 PUFF BY ity o f METEROL 00:00: MOUTH [place] 55-14 00 TWICE A Medical mcg/actuati DAY Branch on AePB FLUTICASONE Yes [id number] INHALE ONE Univers PROPION-YULY 6-07 PUFF BY ity o f METEROL 00:00: [facility] TWICE A Medical mcg/actuati DAY Branch on AePB FLUTICASONE Yes [id number] INHALE ONE Univers PROPION-YULY 6-07 PUFF BY ity o f METEROL 00:00: [facility] TWICE A Medical mcg/actuati DAY Branch on AePB FLUTICASONE Yes [id number] INHALE ONE Univers PROPION-YULY 6-07 PUFF BY ity o f METEROL 00:00: [facility] TWICE A Medical mcg/actuati DAY Branch on AePB FLUTICASONE Yes [id number] INHALE ONE Univers PROPION-YULY 6-07 PUFF BY ity o f METEROL 00:00: [facility] TWICE A Medical mcg/actuati DAY Branch on AePB FLUTICASONE Yes [id number] INHALE ONE Univers PROPION-YULY 6-07 PUFF BY ity o f METEROL 00:00: [facility] TWICE A Medical mcg/actuati DAY Branch on AePB FLUTICASONE Yes [id number] INHALE ONE Univers PROPION-YULY 6-07 PUFF BY ity o f METEROL 00:00: [facility] TWICE A Medical mcg/actuati DAY Branch on AePB FLUTICASONE Yes [id number] INHALE ONE Univers PROPION-YULY 6-07 PUFF BY ity o f METEROL 00:00: [facility] TWICE A Medical mcg/actuati DAY Branch on AePB FLUTICASONE Yes [id number] INHALE ONE Univers PROPION-YULY 6-07 PUFF BY ity o f METEROL 00:00: [facility] TWICE A Medical mcg/actuati DAY Branch on AePB FLUTICASONE Yes [id number] INHALE ONE Univers PROPION-YULY 6-07 PUFF BY ity o f METEROL 00:00: [facility] TWICE A Medical mcg/actuati DAY Branch on AePB FLUTICASONE 2022- No [id number] INHALE ONE Univers PROPION-YULY 11-17 08-03 PUFF BY ity of METEROL 00:00: 00:00 MOUTH [place] 55-14 00 :00 TWICE A Medical mcg/actuati DAY Branch on AePB albuterol Yes [id number] 2.5mg Inhale 3 Univers 2.5 mg /3 2-23 mL every 6 ity of mL (0.083 00:00: (six) [place] %) 00 hours as Medical nebulizer needed for Bran ch solution Wheezing or Shortness of Breath. May also nebulize one extra every 6 hours. albuterol Yes [id number] 2.5mg Inhale 3 Univers 2.5 mg /3 2-23 mL every 6 ity of mL (0.083 00:00: () [place] %) 00 hours as Medical nebulizer needed for Bran ch solution Wheezing or Shortness of Breath. May also nebulize one extra every 6 hours. albuterol Yes [id number] 2.5mg Inhale 3 Univers 2.5 mg /3 2-23 mL every 6 ity of mL (0.083 00:00: () [place] %) 00 hours as Medical nebulizer needed for Bran ch solution Wheezing or Shortness of Breath. May also nebulize one extra every 6 hours. albuterol Yes [id number] 2.5mg Inhale 3 Univers 2.5 mg /3 2-23 mL every 6 ity of mL (0.083 00:00: () [place] %) 00 hours as Medical nebulizer needed for Bran ch solution Wheezing or Shortness of Breath. May also nebulize one extra every 6 hours. albuterol Yes [id number] 2.5mg Inhale 3 Univers 2.5 mg /3 2-23 mL every 6 ity of mL (0.083 00:00: (six) [place] %) 00 hours as Medical nebulizer needed for Bran ch solution Wheezing or Shortness of Breath. May also nebulize one extra every 6 hours. albuterol Yes [id number] 2.5mg Inhale 3 Univers 2.5 mg /3 2-23 mL every 6 ity of mL (0.083 00:00: (six) [place] %) 00 hours as Medical nebulizer needed for Bran ch solution Wheezing or Shortness of Breath. May also nebulize one extra every 6 hours. albuterol Yes [id number] 2.5mg Inhale 3 Univers 2.5 mg /3 2-23 mL every 6 ity of mL (0.083 00:00: (formerly [facility]) [place] %) 00 hours as Medical nebulizer needed for Bran ch solution Wheezing or Shortness of Breath. May also nebulize one extra every 6 hours. albuterol Yes [id number] 2.5mg Inhale 3 Univers 2.5 mg /3 2-23 mL every 6 ity of mL (0.083 00:00: (formerly [facility]) [place] %) 00 hours as Medical nebulizer needed for Bran ch solution Wheezing or Shortness of Breath. May also nebulize one extra every 6 hours. albuterol Yes [id number] 2.5mg Inhale 3 Univers 2.5 mg /3 2-23 mL every 6 ity of mL (0.083 00:00: (formerly [facility]) [place] %) 00 hours as Medical nebulizer needed for Bran ch solution Wheezing or Shortness of Breath. May also nebulize one extra every 6 hours. albuterol Yes [id number] 2.5mg Inhale 3 Univers 2.5 mg /3 2-23 mL every 6 ity of mL (0.083 00:00: (formerly [facility]) [place] %) 00 hours as Medical nebulizer needed for Bran ch solution Wheezing or Shortness of Breath. May also nebulize one extra every 6 hours. albuterol 2022- No [id number] 2.5mg Inhale 3 [facility] 2.5 mg /3 2-23 08-03 mL every 6 ity of mL (0.083 00:00: 00:00 (formerly [facility]) [place] %) 00 :00 hours as Medical nebulizer needed for Bran ch solution Wheezing or Shortness of Breath. May also nebulize one extra every 6 hours. azithromyci Yes [id number] Take 1 [facility] n 250 mg 1-11 tablet ity of tablet 00:00: daily x 4 [place] 00 days. Medical Branch albuterol Yes [id number] 2{puff} Inhale 2 [facility] 90 1-11 Puffs ity of mcg/actuati 00:00: every 6 [place] on inhaler 00 (six) Medical hours as Branch needed for Wheezing or Shortness of Breath. azithromyci Yes [id number] Take 1 [facility] n 250 mg 1-11 tablet ity of tablet 00:00: daily x 4 [place] 00 days. Medical Branch azithromyci Yes [id number] Take 1 [facility] n 250 mg 1-11 tablet ity of tablet 00:00: daily x 4 [place] 00 days. Medical Branch azithromyci Yes [id number] Take 1 [facility] n 250 mg 1-11 tablet ity of tablet 00:00: daily x 4 [place] 00 days. Medical Branch azithromyci Yes [id number] Take 1 [facility] n 250 mg 1-11 tablet ity of tablet 00:00: daily x 4 [place] 00 days. Medical Branch azithromyci Yes [id number] Take 1 [facility] n 250 mg 1-11 tablet ity of tablet 00:00: daily x 4 [place] 00 days. Medical Branch azithromyci Yes [id number] Take 1 [facility] n 250 mg 1-11 tablet ity of tablet 00:00: daily x 4 [place] 00 days. Medical Branch azithromyci Yes [id number] Take 1 [facility] n 250 mg 1-11 tablet ity of tablet 00:00: daily x 4 [place] 00 days. Medical Branch azithromyci Yes [id number] Take 1 [facility] n 250 mg 1-11 tablet ity of tablet 00:00: daily x 4 [place] 00 days. Medical Branch albuterol Yes INHALE TWO Me th[facility] (PROAIR 1-[address] [facility]) 90 00:[facility] m[facility] 00 EVERY 6 l on inhaler HOURS NEEDED FOR WHEEZING OR SHORTNESS OF BREATH albuterol Yes INHALE TWO [facility] (PROAIR 1-[address] [facility]) 90 00:00: [facility] mcg/actuati 00 EVERY 6 l on inhaler HOURS NEEDED FOR WHEEZING OR SHORTNESS OF BREATH albuterol Yes INHALE TWO [facility] (PROAIR 1-[address] [facility]FA) 90 00:00: [facility] mcg/actuati 00 EVERY 6 l on inhaler HOURS NEEDED FOR WHEEZING OR SHORTNESS OF BREATH albuterol Yes INHALE TWO Me [facility] (PROAIR 1-[address] [facility]) 90 00:00: [facility] mcg/actuati 00 EVERY 6 l on inhaler HOURS NEEDED FOR WHEEZING OR SHORTNESS OF BREATH albuterol 2021- No [id number] 2{puff} Inhale 2 [facility] 90 1-11 03-21 Puffs ity of mcg/actuati 00:00: 00:00 every 6 [place] on inhaler 00 :00 (six) Medical hours as Branch needed for Wheezing or Shortness of Breath. albuterol 2021- No [id number] 2{puff} Inhale 2 [facility] 90 1-11 03-21 Puffs ity of mcg/actuati 00:00: 00:00 every 6 [place] on inhaler 00 :00 (six) Medical hours as Branch needed for Wheezing or Shortness of Breath. benzonatate Yes [id number] 100mg Take 1 [facility] 100 mg 1-10 capsule by ity of capsule 00:00: mouth 3 (three) Medical times Branch daily as needed for Cough. benzonatate Yes [id number] 100mg Take 1 [facility] 100 mg 1-10 capsule by ity of capsule 00:00: mouth 3 (three) Medical times Branch daily as needed for Cough. benzonatate 0 Yes [id number] 100mg Take 1 [facility] 100 mg 1-10 capsule by ity of capsule 00:00: mouth 3 (three) Medical times Branch daily as needed for Cough. benzonatate 0 Yes [id number] 100mg Take 1 [facility] 100 mg 1-10 capsule by ity of capsule 00:00: mouth 3 00 (three) Medical times Branch daily as needed for Cough. benzonatate 0 Yes [id number] 100mg Take 1 [facility] 100 mg 1-10 capsule by ity of capsule 00:00: mouth 3 00 (three) Medical times Branch daily as needed for Cough. benzonatate 0 Yes [id number] 100mg Take 1 [facility] 100 mg 1-10 capsule by ity of capsule 00:00: mouth 3 00 (three) Medical times Branch daily as needed for Cough. benzonatate Yes [id number] 100mg Take 1 [facility] 100 mg 1-10 capsule by ity of capsule 00:00: mouth 3 00 (three) Medical times Branch daily as needed for Cough. benzonatate 0 Yes [id number] 100mg Take 1 [facility] 100 mg 1-10 capsule by ity of capsule 00:00: mouth 3 (three) Medical times Branch daily as needed for Cough. benzonatate 0 Yes [id number] 100mg Take 1 [facility] 100 mg 1-10 capsule by ity of capsule 00:00: mouth 3 00 (three) Medical times Branch daily as needed for Cough. esomeprazol 2019-06 Yes Take by Uni vers e magnesium 1-18 mouth. ity of (NEXIUM 19:24: [place] ORAL) [address] [place] [address] cetirizine 2019-06 Yes Take by Univ ers HCl (ZYRTEC 1-18 mouth. ity of ORAL) 19:24: [address] ALBUTEROL 2019-06 Yes Inhale. Unive rs SULFATE HFA 1-18 ity of INHALE 19:24: [address] esomeprazol 2019-06 Yes Take by Uni vers e magnesium 1-18 mouth. ity of (NEXIUM 19:24: [place] ORAL) [address] [place] [address] Branch cetirizine 2019-06 Yes Take by Univ ers HCl (ZYRTEC 1-18 mouth. ity of ORAL) 19:24: [address] Branch esomeprazol 2019-06 Yes Take by Uni vers e magnesium 1-18 mouth. ity of (NEXIUM 19:24: [place] ORAL) [address] [place] [address] Branch cetirizine 2019-06 Yes Take by Univ ers HCl (ZYRTEC 1-18 mouth. ity of ORAL) 19:24: [address] Branch esomeprazol 2019-06 Yes Take by Uni vers e magnesium 1-18 mouth. ity of (NEXIUM 19:24: [place] ORAL) [address] [place] [address] cetirizine 2019-06 Yes Take by Univ ers HCl (ZYRTEC 1-18 mouth. ity of ORAL) 19:24: [address] Branch esomeprazol 2019-06 Yes Take by Uni vers e magnesium 1-18 mouth. ity of (NEXIUM 19:24: [place] ORAL) Medical Branch cetirizine 2019-06 Yes Take by Univ ers HCl (ZYRTEC 1-18 mouth. ity of ORAL) 19:24: [place] [address] Medical Branch esomeprazol 2019-06 Yes Take by Uni vers e magnesium 1-18 mouth. ity of (NEXIUM 19:24: [place] ORAL) Medical Branch cetirizine 2019-06 Yes Take by Univ ers HCl (ZYRTEC 1-18 mouth. ity of ORAL) 19:24: [place] [address] Medical Branch esomeprazol 2019-06 Yes Take by Uni vers e magnesium 1-18 mouth. ity of (NEXIUM 19:24: [place] ORAL) Medical Branch cetirizine 2019-06 Yes Take by Univ ers HCl (ZYRTEC 1-18 mouth. ity of ORAL) 19:24: [place] [address] Medical Branch esomeprazol 2019-06 Yes Take by Uni vers e magnesium 1-18 mouth. ity of (NEXIUM 19:24: [place] ORAL) Medical Branch cetirizine 2019-06 Yes Take by Univ ers HCl (ZYRTEC 1-18 mouth. ity of ORAL) 19:24: [place] [address] Medical Branch esomeprazol 2019-06 Yes Take by Uni vers e magnesium 1-18 mouth. ity of (NEXIUM 19:24: [place] ORAL) Medical Branch cetirizine 2019-06 Yes Take by Univ ers HCl (ZYRTEC 1-18 mouth. ity of ORAL) 19:24: [place] [address] Medical Branch esomeprazol 2019-06 Yes Take by Uni vers e magnesium 1-18 mouth. ity of (NEXIUM 19:24: [place] ORAL) Medical Branch cetirizine 2019-06 Yes Take by Univ ers HCl (ZYRTEC 1-18 mouth. ity of ORAL) 19:24: [place] [address] Medical Branch esomeprazol 2019-06 Yes Take by Uni vers e magnesium 1-18 mouth. ity of (NEXIUM 19:24: [place] ORAL) Medical Branch methylPREDN 2019-06 Yes [id number] Take by Univers ISolone 1-18 mouth ity of (MEDROL, 00:00: SEE-INSTRU [place] CAR[place],) 4 mg 00 CTIONS. Medica l tablets follow Branch package directions azithromyci 2019-06 Yes [id number] 250mg Take 1 [facility] n 1-18 tablet by ity of (ZITHROMAX 00:00: mouth [place] Z-CARISSA) 250 00 daily. Medical mg tablet Take 500 Branch mg day 1, then 250 mg days 2 to 5. methylPREDN 2019-06 Yes [id number] Take by Univers ISolone 1-18 mouth ity of (MEDROL, 00:00: SEE-INSTRU [place] CARISSA,) 4 mg 00 CTIONS. Medica l tablets follow Branch package directions azithromyci 2019-06 Yes [id number] 250mg Take 1 [facility] n 1-18 tablet by ity of (ZITHROMAX 00:00: mouth [place] Z-CARISSA) 250 00 daily. Medical mg tablet Take 500 Branch mg day 1, then 250 mg days 2 to 5. methylPREDN 2019-06 Yes [id number] Take by Univers ISolone 1-18 mouth ity of (MEDROL, 00:00: SEE-INSTRU [place] CAR[place],) 4 mg 00 CTIONS. Medica l tablets follow Branch package directions azithromyci 2019-06 Yes [id number] 250mg Take 1 [facility] n 1-18 tablet by ity of (ZITHROMAX 00:00: mouth [place] Z-CARISSA) 250 00 daily. Medical mg tablet Take 500 Branch mg day 1, then 250 mg days 2 to 5. methylPREDN 2019-06 Yes [id number] Take by Univers ISolone 1-18 mouth ity of (MEDROL, 00:00: SEE-INSTRU [place],) 4 mg 00 CTIONS. Medica l tablets follow Branch package directions azithromyci 2019-06 Yes [id number] 250mg Take 1 [facility] n 1-18 tablet by ity of (ZITHROMAX 00:00: mouth [place] Z-CARISSA) 250 00 daily. Medical mg tablet Take 500 Branch mg day 1, then 250 mg days 2 to 5. methylPREDN 2019-06 Yes [id number] Take by Univers ISolone 1-18 mouth ity of (MEDROL, 00:00: SEE-INSTRU [place],) 4 mg 00 CTIONS. Medica l tablets follow Branch package directions azithromyci 2019-06 Yes [id number] 250mg Take 1 [facility] n 1-18 tablet by ity of (ZITHROMAX 00:00: mouth [place] Z-CARISSA) 250 00 daily. Medical mg tablet Take 500 Branch mg day 1, then 250 mg days 2 to 5. methylPREDN 2019-06 Yes [id number] Take by [facility] ISolone 1-18 mouth ity of (MEDROL, 00:00: SEE-INSTRU [place],) 4 mg 00 CTIONS. Medica l tablets follow Branch package directions azithromyci 2019-06 Yes [id number] 250mg Take 1 [facility] n 1-18 tablet by ity of (ZITHROMAX 00:00: mouth [place] Z-CARISSA) 250 00 daily. Medical mg tablet Take 500 Branch mg day 1, then 250 mg days 2 to 5. methylPREDN 2019-06 Yes [id number] Take by [facility] ISolone 1-18 mouth ity of (MEDROL, 00:00: SEE-INSTRU [place],) 4 mg 00 CTIONS. Medica l tablets follow Branch package directions azithromyci 2019-06 Yes [id number] 250mg Take 1 [facility] n 1-18 tablet by ity of (ZITHROMAX 00:00: mouth [place] Z-CARISSA) 250 00 daily. Medical mg tablet Take 500 Branch mg day 1, then 250 mg days 2 to 5. methylPREDN 2019-06 Yes [id number] Take by [facility] ISolone 1-18 mouth ity of (MEDROL, 00:00: SEE-INSTRU [place],) 4 mg 00 CTIONS. Medica l tablets follow Branch package directions azithromyci 2019-06 Yes [id number] 250mg Take 1 [facility] n 1-18 tablet by ity of (ZITHROMAX 00:00: mouth [place] Z-CARISSA) 250 00 daily. Medical mg tablet Take 500 Branch mg day 1, then 250 mg days 2 to 5. methylPREDN 2019-06 Yes [id number] Take by [facility] ISolone 1-18 mouth ity of (MEDROL, 00:00: SEE-INSTRU [place],) 4 mg 00 CTIONS. Medica l tablets follow Branch package directions azithromyci 2019-06 Yes [id number] 250mg Take 1 [facility] n 1-18 tablet [...] mL, PO, l Oral 16:50: QID, # [place] Suspension 12 1200 mL, 0 [Carafate] Refill(s), Pharmacy: [facility] Sucralfate 2015-06 Yes 1 gm = 10 Me [place] 100 MG/ML 0-30 mL, PO, l Oral 16:50: QID, # [place] Suspension 12 1200 mL, 0 [Carafate] Refill(s), Pharmacy: [facility] Sucralfate 2015-06 Yes 1 gm = 10 Me [place] 100 MG/ML 0-30 mL, PO, l Oral 16:50: QID, # [place] Suspension 12 1200 mL, 0 [Carafate] Refill(s), Pharmacy: [facility] Sucralfate 2015-06 Yes 1 gm = 10 Me [place] 100 MG/ML 0-30 mL, PO, l Oral 16:50: QID, # [place] Suspension 12 1200 mL, 0 [Carafate] Refill(s), Pharmacy: [facility] Sucralfate 2015-06 Yes 1 gm = 10 Me [place] 100 MG/ML 0-30 mL, PO, l Oral 16:50: QID, # [place] Suspension 12 1200 mL, 0 [Carafate] Refill(s), Pharmacy: [facility] Sucralfate 2015-06 Yes 1 gm = 10 Me [place] 100 MG/ML 0-30 mL, PO, l Oral 16:50: QID, # [place] Suspension 12 1200 mL, 0 [Carafate] Refill(s), Pharmacy: [facility] [address] [place] [address] 2015-06 Yes 1 gm = 10 Me [place] 100 MG/ML 0-30 mL, PO, l Oral 16:50: QID, # [place] Suspension 12 1200 mL, 0 [Carafate] Refill(s), Pharmacy: [facility] [address] [place] [address] 2015-06 Yes 1 gm = 10 Me [place] 100 MG/ML 0-30 mL, PO, l Oral 16:50: QID, # [place] Suspension 12 1200 mL, 0 [Carafate] Refill(s), Pharmacy: [address] 2015-06 Yes 1 gm = 10 Me [place] 100 MG/ML 0-30 mL, PO, l Oral 16:50: QID, # [place] Suspension 12 1200 mL, 0 [Carafate] Refill(s), Pharmacy: [address] 2015-06 Yes 1 gm = 10 Me [place] 100 MG/ML 0-30 mL, PO, l Oral 16:50: QID, # [place] Suspension 12 1200 mL, 0 [Carafate] Refill(s), Pharmacy: [address] 2015-06 Yes 1 gm = 10 Me [place] 100 MG/ML 0-30 mL, PO, l Oral 16:50: QID, # [place] Suspension 12 1200 mL, 0 [Carafate] Refill(s), Pharmacy: [facility] [address] [place] [address] 2015-06 Yes 1 gm = 10 Me [place] 100 MG/ML 0-30 mL, PO, l Oral 16:50: QID, # [place] Suspension 12 1200 mL, 0 [Carafate] Refill(s), Pharmacy: [facility] [address] [place] [address] 2015-06 Yes 1 gm = 10 Me [place] 100 MG/ML 0-30 mL, PO, l Oral 16:50: QID, # [place] Suspension 12 1200 mL, 0 [Carafate] Refill(s), Pharmacy: [facility] [address] [place] [address] 2015-06 Yes 1 gm = 10 Me [place] 100 MG/ML 0-30 mL, PO, l Oral 16:50: QID, # [place] Suspension 12 1200 mL, 0 [Carafate] Refill(s), Pharmacy: [place] [address] Sucralfate 2015-06 Yes 1 gm = 10 Me mor[place] 100 MG/ML 0-30 mL, PO, l Oral 16:50: QID, # [place] Suspension 12 1200 mL, 0 [Carafate] Refill(s), Pharmacy: [facility] Sucralfate 2015-06 Yes 1 gm = 10 Me [place] 100 MG/ML 0-30 mL, PO, l Oral 16:50: QID, # [place] Suspension 12 1200 mL, 0 [Carafate] Refill(s), Pharmacy: [place] [address] Sucralfate 2015-06 Yes 1 gm = 10 Me [place] 100 MG/ML 0-30 mL, PO, l Oral 16:50: QID, # [place] Suspension 12 1200 mL, 0 [Carafate] Refill(s), Pharmacy: [place] [address] Sucralfate 2015-06 Yes 1 gm = 10 Me [place] 100 MG/ML 0-30 mL, PO, l Oral 16:50: QID, # [place] Suspension 12 1200 mL, 0 [Carafate] Refill(s), Pharmacy: [place] [address] dicyclomine 2015-06 Yes 20 mg = 1 M emoria 20 mg oral 0-30 tab, PO, l tablet 16:50: QID, # 56 [place] n 00 tab, 1 Refill(s), Pharmacy: [place] [address] gabapentin 2015-06 Yes 300 mg = 1 M emoria 300 MG Oral 0-30 cap, PO, l Capsule 16:50: TID, # 30 [place] nn [Neurontin] 00 cap, 1 Refill(s), Pharmacy: [facility] dicyclomine 2015-06 Yes 20 mg = 1 M emoria 20 mg oral 0-30 tab, PO, l tablet 16:50: QID, # 56 [place] n 00 tab, 1 Refill(s), Pharmacy: [facility] gabapentin 2015-06 Yes 300 mg = 1 M [place] 300 MG Oral 0-30 cap, PO, l Capsule 16:50: TID, # 30 [place] [Neurontin] 00 cap, 1 Refill(s), Pharmacy: [facility] dicyclomine 2015-06 Yes 20 mg = 1 M emoria 20 mg oral 0-30 tab, PO, l tablet 16:50: QID, # 56 [place] n 00 tab, 1 Refill(s), Pharmacy: [facility] gabapentin 2015-06 Yes 300 mg = 1 M [place] 300 MG Oral 0-30 cap, PO, l Capsule 16:50: TID, # 30 [place] nn [Neurontin] 00 cap, 1 Refill(s), Pharmacy: [facility] dicyclomine 2015-06 Yes 20 mg = 1 M [place] 20 mg oral 0-30 tab, PO, l tablet 16:50: QID, # 56 [place] n 00 tab, 1 Refill(s), Pharmacy: [facility] gabapentin 2015-06 Yes 300 mg = 1 M [place] 300 MG Oral 0-30 cap, PO, l Capsule 16:50: TID, # 30 [place] [Neurontin] 00 cap, 1 Refill(s), Pharmacy: [place] [address] dicyclomine 2015-06 Yes 20 mg = 1 M [place] 20 mg oral 0-30 tab, PO, l tablet 16:50: QID, # 56 [place] n 00 tab, 1 Refill(s), Pharmacy: [facility] gabapentin 2015-06 Yes 300 mg = 1 M [place] 300 MG Oral 0-30 cap, PO, l Capsule 16:50: TID, # 30 [place] [Neurontin] 00 cap, 1 Refill(s), Pharmacy: [facility] dicyclomine 2015-06 Yes 20 mg = 1 M [place] 20 mg oral 0-30 tab, PO, l tablet 16:50: QID, # 56 [place] n 00 tab, 1 Refill(s), Pharmacy: [facility] gabapentin 2015-06 Yes 300 mg = 1 M [place] 300 MG Oral 0-30 cap, PO, l Capsule 16:50: TID, # 30 [place] [Neurontin] 00 cap, 1 Refill(s), Pharmacy: [facility] dicyclomine 2015-06 Yes 20 mg = 1 M [place] 20 mg oral 0-30 tab, PO, l tablet 16:50: QID, # 56 [place] 00 tab, 1 Refill(s), Pharmacy: [facility] gabapentin 2015-06 Yes 300 mg = 1 M [place] 300 MG Oral 0-30 cap, PO, l Capsule 16:50: TID, # 30 [place] [Neurontin] 00 cap, 1 Refill(s), Pharmacy: [place] [address] dicyclomine 2015-06 Yes 20 mg = 1 M [place] 20 mg oral 0-30 tab, PO, l tablet 16:50: QID, # 56 [place] n 00 tab, 1 Refill(s), Pharmacy: [place] [address] gabapentin 2015-06 Yes 300 mg = 1 M [place] 300 MG Oral 0-30 cap, PO, l Capsule 16:50: TID, # 30 [place] nn [Neurontin] 00 cap, 1 Refill(s), Pharmacy: [place] [address] dicyclomine 2015-06 Yes 20 mg = 1 M [place] 20 mg oral 0-30 tab, PO, l tablet 16:50: QID, # 56 [place] n 00 tab, 1 Refill(s), Pharmacy: [place] [address] gabapentin 2015-06 Yes 300 mg = 1 M [place] 300 MG Oral 0-30 cap, PO, l Capsule 16:50: TID, # 30 [place] nn [Neurontin] 00 cap, 1 Refill(s), Pharmacy: [facility] dicyclomine 2015-06 Yes 20 mg = 1 M [place] 20 mg oral 0-30 tab, PO, l tablet 16:50: QID, # 56 [place] n 00 tab, 1 Refill(s), Pharmacy: [facility] gabapentin 2015-06 Yes 300 mg = 1 M [place] 300 MG Oral 0-30 cap, PO, l Capsule 16:50: TID, # 30 [place] nn [Neurontin] 00 cap, 1 Refill(s), Pharmacy: [facility] dicyclomine 2015-06 Yes 20 mg = 1 M [place] 20 mg oral 0-30 tab, PO, l tablet 16:50: QID, # 56 [place] n 00 tab, 1 Refill(s), Pharmacy: [facility] gabapentin 2015-06 Yes 300 mg = 1 M [place] 300 MG Oral 0-30 cap, PO, l Capsule 16:50: TID, # 30 [place] nn [Neurontin] 00 cap, 1 Refill(s), Pharmacy: [facility] dicyclomine 2015-06 Yes 20 mg = 1 M [place] 20 mg oral 0-30 tab, PO, l tablet 16:50: QID, # 56 [place] n 00 tab, 1 Refill(s), Pharmacy: [facility] gabapentin 2015-06 Yes 300 mg = 1 M [place] 300 MG Oral 0-30 cap, PO, l Capsule 16:50: TID, # 30 [place] nn [Neurontin] 00 cap, 1 Refill(s), Pharmacy: [facility] dicyclomine 2015-06 Yes 20 mg = 1 M [place] 20 mg oral 0-30 tab, PO, l tablet 16:50: QID, # 56 [place] n 00 tab, 1 Refill(s), Pharmacy: [facility] gabapentin 2015-06 Yes 300 mg = 1 M [place] 300 MG Oral 0-30 cap, PO, l Capsule 16:50: TID, # 30 [place] nn [Neurontin] 00 cap, 1 Refill(s), Pharmacy: [place] [address] dicyclomine 2015-06 Yes 20 mg = 1 M [place] 20 mg oral 0-30 tab, PO, l tablet 16:50: QID, # 56 [place] n 00 tab, 1 Refill(s), Pharmacy: [facility] gabapentin 2015-06 Yes 300 mg = 1 M [place] 300 MG Oral 0-30 cap, PO, l Capsule 16:50: TID, # 30 [place] nn [Neurontin] 00 cap, 1 Refill(s), Pharmacy: [facility] dicyclomine 2015-06 Yes 20 mg = 1 M [place] 20 mg oral 0-30 tab, PO, l tablet 16:50: QID, # 56 [place] n 00 tab, 1 Refill(s), Pharmacy: [facility] gabapentin 2015-06 Yes 300 mg = 1 M [place] 300 MG Oral 0-30 cap, PO, l Capsule 16:50: TID, # 30 [place] nn [Neurontin] 00 cap, 1 Refill(s), Pharmacy: [facility] dicyclomine 2015-06 Yes 20 mg = 1 M [place] 20 mg oral 0-30 tab, PO, l tablet 16:50: QID, # 56 [place] n 00 tab, 1 Refill(s), Pharmacy: [place] [address] gabapentin 2015-06 Yes 300 mg = 1 M emoria 300 MG Oral 0-30 cap, PO, l Capsule 16:50: TID, # 30 [place] nn [Neurontin] 00 cap, 1 Refill(s), Pharmacy: [place] [address] dicyclomine 2015-06 Yes 20 mg = 1 M emoria 20 mg oral 0-30 tab, PO, l tablet 16:50: QID, # 56 [place] n 00 tab, 1 Refill(s), Pharmacy: [place] [address] gabapentin 2015-06 Yes 300 mg = 1 M emoria 300 MG Oral 0-30 cap, PO, l Capsule 16:50: TID, # 30 [place] nn [Neurontin] 00 cap, 1 Refill(s), Pharmacy: [place] [address] dicyclomine 2015-06 Yes 20 mg = 1 M emoria 20 mg oral 0-30 tab, PO, l tablet 16:50: QID, # 56 [place] n 00 tab, 1 Refill(s), Pharmacy: [facility] gabapentin 2015-06 Yes 300 mg = 1 M emoria 300 MG Oral 0-30 cap, PO, l Capsule 16:50: TID, # 30 [place] nn [Neurontin] 00 cap, 1 Refill(s), Pharmacy: [facility] Protonix 2015-06 No Notes: For Mem oria 0-29 IV push l 13:00: reconstitu [place] 00 te with 10 ml 0.9% sodium chloride and push over 2 minutes. (Same as: Protonix) Protonix 2015-06 No Notes: For Mem oria 0-29 IV push l 13:00: reconstitu [place] 00 te with 10 ml 0.9% sodium [...] oria 0-29 IV push l 13:00: reconstitu [place] 00 te with 10 ml 0.9% sodium chloride and push over 2 minutes. (Same as: Protonix) Protonix 2015-06 No Notes: For Mem oria 0-29 IV push l 13:00: reconstitu [place] 00 te with 10 ml 0.9% sodium [...] oria 0-29 IV push l 13:00: reconstitu [place] 00 te with 10 ml 0.9% sodium chloride and push over 2 minutes. (Same as: Protonix) Protonix 2015-06 No Notes: For Mem oria 0-29 IV push l 13:00: reconstitu [place] 00 te with 10 ml 0.9% sodium chloride and push over 2 minutes. (Same as: Protonix) Protonix 2015-06 No Notes: For Mem oria 0-29 IV push l 13:00: reconstitu [place] 00 te with 10 ml 0.9% sodium [...] oria 0-29 IV push l 13:00: reconstitu [place] 00 te with 10 ml 0.9% sodium chloride and push over 2 minutes. (Same as: Protonix) Protonix 2015-06 No Notes: For Mem oria 0-29 IV push l 13:00: reconstitu [place] 00 te with 10 ml 0.9% sodium chloride and push over 2 minutes. (Same as: Protonix) Bentyl 2015-06 No Notes: Memoria 0-29 (Same as: l 02:00: Bentyl) [place] 00 Sucralfate 2015-06 No Notes: Memor ia 100 MG/ML 0-29 Enteral l Oral 02:00: feeds may [place] Suspension 00 interfere [Carafate] with the absorption [...] pdt, minerals & meals. (Same As: Carafate) [facility] 2015-06 No Notes: Memoria 0-29 (Same as: l 02:00: Bentyl) [place] Sucralfate 2015-06 No Notes: Memor ia 100 MG/ML 0-29 Enteral l Oral 02:00: feeds may [place] Suspension 00 interfere [Carafate] with the absorption of this medication . Shake well. Take 1 hr before or 2 hrs after antacids, dairy pdt, minerals & meals. (Same As: Carafate) [facility] 2015-06 No Notes: Memoria 0-29 (Same as: l 02:00: Bentyl) [place] Sucralfate 2015-06 No Notes: Memor ia 100 MG/ML 0-29 Enteral l Oral 02:00: feeds may [place] Suspension 00 interfere [Carafate] with the absorption of this medication . Shake well. Take 1 hr before or 2 hrs after antacids, dairy pdt, minerals & meals. (Same As: Carafate) [facility] 2015-06 No Notes: Memoria 0-29 (Same as: l 02:00: Bentyl) [place] Sucralfate 2015-06 No Notes: Memor ia 100 MG/ML 0-29 Enteral l Oral 02:00: feeds may [place] Suspension 00 interfere [Carafate] with the absorption of this medication . Shake well. Take 1 hr before or 2 hrs after antacids, dairy pdt, minerals & meals. (Same As: Carafate) [facility] 2015-06 No Notes: Memoria 0-29 (Same as: l 02:00: Bentyl) [place] Sucralfate 2015-06 No Notes: Memor ia 100 MG/ML 0-29 Enteral l Oral 02:00: feeds may [place] Suspension 00 interfere [Carafate] with the absorption of this medication . Shake well. Take 1 hr before or 2 hrs after antacids, dairy pdt, minerals & meals. (Same As: Carafate) [facility] 2015-06 No Notes: Memoria 0-29 (Same as: l 02:00: Bentyl) [place] Sucralfate 2015-06 No Notes: Memor ia 100 MG/ML 0-29 Enteral l Oral 02:00: feeds may [place] Suspension 00 interfere [Carafate] with the absorption of this medication . Shake well. Take 1 hr before or 2 hrs after antacids, dairy pdt, minerals & meals. (Same As: Carafate) [facility] 2015-06 No Notes: Memoria 0-29 (Same as: l 02:00: Bentyl) [place] 00 Sucralfate 2015-06 No Notes: Memor ia 100 MG/ML 0-29 Enteral l Oral 02:00: feeds may [place] Suspension 00 interfere [Carafate] with the absorption of this medication . Shake well. Take 1 hr before or 2 hrs after antacids, dairy pdt, minerals & meals. (Same As: Carafate) [facility] 2015-06 No Notes: Memoria 0-29 (Same as: l 02:00: Bentyl) [place] Sucralfate 2015-06 No Notes: Memor ia 100 MG/ML 0-29 Enteral l Oral 02:00: feeds may [place] Suspension 00 interfere [Carafate] with the absorption of this medication . Shake well. Take 1 hr before or 2 hrs after antacids, dairy pdt, minerals & meals. (Same As: Carafate) [facility] 2015-06 No Notes: Memoria 0-29 (Same as: l 02:00: Bentyl) Eb Sucralfate 2015-06 No Notes: Memor ia 100 MG/ML 0-29 Enteral l Oral 02:00: feeds may Eb Suspension 00 interfere [Carafate] with the absorption of this medication . Shake well. Take 1 hr before or 2 hrs after antacids, dairy pdt, minerals & meals. (Same As: Carafate) [facility] 2015-06 No Notes: Memoria 0-29 (Same as: l 02:00: Bentyl) [place] 00 Sucralfate 2015-06 No Notes: Memor ia 100 MG/ML 0-29 Enteral l Oral 02:00: feeds may Eb Suspension 00 interfere [Carafate] with the absorption of this medication . Shake well. Take 1 hr before or 2 hrs after antacids, dairy pdt, minerals & meals. (Same As: Carafate) [facility] 2015-06 No Notes: Memoria 0-29 (Same as: l 02:00: Bentyl) Eb 00 Sucralfate 2015-06 No Notes: Memor ia 100 MG/ML 0-29 Enteral l Oral 02:00: feeds may Eb Suspension 00 interfere [Carafate] with the absorption of this medication . Shake well. Take 1 hr before or 2 hrs after antacids, dairy pdt, minerals & meals. (Same As: Carafate) [facility] 2015-06 No Notes: Memoria 0-29 (Same as: l 02:00: Bentyl) Sucralfate 2015-06 No Notes: Memor ia 100 MG/ML 0-29 Enteral l Oral 02:00: feeds may Eb Suspension 00 interfere [Carafate] with the absorption of this medication . Shake well. Take 1 hr before or 2 hrs after antacids, dairy pdt, minerals & meals. (Same As: Carafate) [facility] 2015-06 No Notes: Memoria 0-29 (Same as: l 02:00: Bentyl) Sucralfate 2015-06 No Notes: Memor ia 100 MG/ML 0-29 Enteral l Oral 02:00: feeds may Eb Suspension 00 interfere [Carafate] with the absorption of this medication . Shake well. Take 1 hr before or 2 hrs after antacids, dairy pdt, minerals & meals. (Same As: Carafate) [facility] 2015-06 No Notes: Memoria 0-29 (Same as: l 02:00: Bentyl) Sucralfate 2015-06 No Notes: Memor ia 100 MG/ML 0-29 Enteral l Oral 02:00: feeds may Eb Suspension 00 interfere [Carafate] with the absorption of this medication . Shake well. Take 1 hr before or 2 hrs after antacids, dairy pdt, minerals & meals. (Same As: Carafate) [facility] 2015-06 No Notes: Memoria 0-29 (Same as: l 02:00: Bentyl) Sucralfate 2015-06 No Notes: Memor ia 100 MG/ML 0-29 Enteral l Oral 02:00: feeds may [place] Suspension 00 interfere [Carafate] with the absorption of this medication . Shake well. Take 1 hr before or 2 hrs after antacids, dairy pdt, minerals & meals. (Same As: Carafate) [facility] 2015-06 No Notes: Memoria 0-29 (Same as: l 02:00: Bentyl) [place] 00 Sucralfate 2015-06 No Notes: Memor ia 100 MG/ML 0-29 Enteral l Oral 02:00: feeds may Eb Suspension 00 interfere [Carafate] with the absorption of this medication . Shake well. Take 1 hr before or 2 hrs after antacids, dairy pdt, minerals & meals. (Same As: Carafate) Bentyl 2015-06 No Notes: Memoria 0-29 (Same as: l 02:00: Bentyl) [place] 00 Sucralfate 2015-06 No Notes: Memor ia 100 MG/ML 0-29 Enteral l Oral 02:00: feeds may Eb Suspension 00 interfere [Carafate] with the absorption of this medication . Shake well. Take 1 hr before or 2 hrs after antacids, dairy pdt, minerals & meals. (Same As: Carafate) Reglan 2015-06 No Notes: Memoria 0-28 (Same as: l 23:00: Reglan) [place] 00 Reglan 2015-06 No Notes: Memoria 0-28 (Same as: l 23:00: Reglan) [place] 2015-06 No Notes: Memoria 0-28 (Same as: l 23:00: Reglan) [place] 00 Reglan 2015-06 No Notes: Memoria 0-28 (Same as: l 23:00: Reglan) Eb 00 Reglan 2015-06 No Notes: Memoria 0-28 (Same as: l 23:00: Reglan) [place] 00 Reglan 2015-06 No Notes: Memoria 0-28 (Same as: l 23:00: Reglan) [place] 00 Reglan 2015-06 No Notes: Memoria 0-28 (Same as: l 23:00: Reglan) [place] 00 Reglan 2015-06 No Notes: Memoria 0-28 [...] Memoria 0-28 (Same as: l 23:00: Reglan) [place] 00 Reglan 2015-06 No Notes: Memoria 0-28 (Same as: l 23:00: Reglan) Eb 00 Reglan 2015-06 No Notes: Memoria 0-28 (Same as: l 23:00: Reglan) Reglan 2015-06 No Notes: Memoria 0-28 (Same as: l 23:00: Reglan) [place] 00 Reglan 2015-06 No Notes: Memoria 0-28 (Same as: l 23:00: Reglan) Eb 00 Reglan 2015-06 No Notes: Memoria 0-28 (Same as: l 23:00: Reglan) Reglan 2015-06 No Notes: Memoria 0-28 (Same as: l 23:00: Reglan) Acetaminoph 2015-06 No Notes: Do M emoria en 0-28 not exceed l 22:41: 4 gm/day. (Same as: Tylenol) Acetaminoph 2015-06 No Notes: Do M emoria en 0-28 not exceed l 22:41: 4 gm/day. (Same as: Tylenol) Acetaminoph 2015-06 No Notes: Do M emoria en 0-28 not exceed l 22:41: 4 gm/day. (Same as: Tylenol) Acetaminoph 2015-06 No Notes: Do M emoria en 0-28 not exceed l 22:41: 4 gm/day. (Same as: Tylenol) Acetaminoph 2015-06 No Notes: Do M emoria en 0-28 not exceed l 22:41: 4 gm/day. (Same as: Tylenol) Acetaminoph 2015-06 No Notes: Do M emoria en 0-28 not exceed l 22:41: 4 gm/day. (Same as: Tylenol) Acetaminoph 2015-06 No Notes: Do M emoria en 0-28 not exceed l 22:41: 4 gm/day. (Same as: Tylenol) Acetaminoph 2015-06 No Notes: Do M emoria en 0-28 not exceed l 22:41: 4 gm/day. Eb 00 (Same as: [facility]enol) [facility] No Notes: Do M emoria en 0-28 not exceed l 22:41: 4 gm/day. Eb 00 (Same as: Tylenol) [facility] No Notes: Do M emoria en 0-28 not exceed l 22:41: 4 gm/day. Eb 00 (Same as: Tylenol) [facility] No Notes: Do M emoria en 0-28 not exceed l 22:41: 4 gm/day. [place] 00 (Same as: Tylenol) [facility] No Notes: Do M emoria en 0-28 not exceed l 22:41: 4 gm/day. [place] 00 (Same as: Tylenol) [facility] No Notes: Do M emoria en 0-28 not exceed l 22:41: 4 gm/day. Eb 00 (Same as: Tylenol) [facility] No Notes: Do M emoria en 0-28 not exceed l 22:41: 4 gm/day. [place] 00 (Same as: Tylenol) [facility] No Notes: Do M emoria en 0-28 not exceed l 22:41: 4 gm/day. [place] 00 (Same as: Tylenol) [facility] No Notes: Do M emoria en 0-28 not exceed l 22:41: 4 gm/day. Eb 00 (Same as: Tylenol) [facility] No Notes: Do M emoria en 0-28 not exceed l 22:41: 4 gm/day. Eb 00 (Same as: Tylenol) [facility] No Notes: Do M emoria en 0-28 not exceed l 22:41: 4 gm/day. (Same as: Tylenol) pantoprazol 2015-06 No Notes: Kehinde batsheva e 0-28 Tablet l 21:30: should not Eb 00 be chewed or crushed. (Same as: Protonix) pantoprazol 2015-06 No Notes: Kehinde batsheva e 0-28 Tablet l 21:30: should not Eb 00 be chewed or crushed. (Same as: Protonix) pantoprazol 2015-06 No Notes: Kehinde batsheva e 0-28 Tablet l 21:30: should not [place] 00 be chewed or crushed. (Same as: Protonix) pantoprazol 2015-06 No Notes: Kehinde batsheva e 0-28 Tablet l 21:30: should not [place] 00 be chewed or crushed. (Same as: Protonix) pantoprazol 2015-06 No Notes: Kehinde batsheva e 0-28 Tablet l 21:30: should not [place] 00 be chewed or crushed. (Same as: Protonix) pantoprazol 2015-06 No Notes: Kehinde batsheva e 0-28 Tablet l 21:30: should not [place] 00 be chewed or crushed. (Same as: [...] e 0-28 Tablet l 21:30: should not [place] 00 be chewed or crushed. (Same as: Protonix) pantoprazol 2015-06 No Notes: Kehinde batsheva e 0-28 Tablet l 21:30: should not Eb 00 be chewed or crushed. (Same as: Protonix) pantoprazol 2015-06 No Notes: Kehinde batsheva e 0-28 Tablet l 21:30: should not [place] 00 be chewed or crushed. (Same as: [...] e 0-28 Tablet l 21:30: should not [place] 00 be chewed or crushed. (Same as: Protonix) pantoprazol 2015-06 No Notes: Kehinde batsheva e 0-28 Tablet l 21:30: should not Eb 00 be chewed or crushed. (Same as: Protonix) pantoprazol 2015-06 No Notes: Kehinde batsheva e 0-28 Tablet l 21:30: should not [place] 00 be chewed or crushed. (Same as: Protonix) pantoprazol 2015-06 No Notes: Kehinde batsheva e 0-28 Tablet l 21:30: should not [place] 00 be chewed or crushed. (Same as: Protonix) Sucralfate 2015-06 No Notes: Memor ia 100 MG/ML 0-28 Enteral l Oral 18:00: feeds may [place] Suspension 00 interfere [Carafate] with the absorption [...] 0-28 Enteral l Oral 18:00: feeds may [place] Suspension 00 interfere [Carafate] with the absorption [...] 0-28 Enteral l Oral 18:00: feeds may [place] Suspension 00 interfere [Carafate] with the absorption [...] 0-28 Enteral l Oral 18:00: feeds may [place] Suspension 00 interfere [Carafate] with the absorption [...] 0-28 Enteral l Oral 18:00: feeds may [place] Suspension 00 interfere [Carafate] with the absorption [...] 0-28 Enteral l Oral 18:00: feeds may [place] Suspension 00 interfere [Carafate] with the absorption [...] 0-28 Enteral l Oral 18:00: feeds may [place] Suspension 00 interfere [Carafate] with the absorption [...] 0-28 Enteral l Oral 18:00: feeds may [place] Suspension 00 interfere [Carafate] with the absorption [...] ia 0-28 (Same as: l 15:58: Zofran [place] 00 ODT) Zofran ODT 2015-06 No Notes: Memor ia 0-28 (Same as: l 15:58: Zofran [place] 00 ODT) Zofran ODT 2015-06 No Notes: Memor ia 0-28 (Same as: l 15:58: Zofran Eb 00 ODT) Zofran ODT 2015-06 No Notes: Memor ia 0-28 (Same as: l 15:58: Zofran [place] 00 ODT) Zofran ODT 2015-06 No Notes: Memor ia 0-28 (Same as: l 15:58: Zofran Eb 00 ODT) Zofran ODT 2015-06 No Notes: Memor ia 0-28 (Same as: l 15:58: Zofran [place] 00 ODT) Zofran ODT 2015-06 No Notes: Memor ia 0-28 (Same as: l 15:58: Zofran [place] 00 ODT) Zofran ODT 2015-06 No Notes: Memor ia 0-28 (Same as: l 15:58: Zofran Eb 00 ODT) Zofran ODT 2015-06 No Notes: Memor ia 0-28 (Same as: l 15:58: Zofran [place] 00 ODT) Zofran ODT 2015-06 No Notes: Memor ia 0-28 (Same as: l 15:58: Zofran Eb 00 ODT) Zofran ODT 2015-06 No Notes: Memor ia 0-28 (Same as: l 15:58: Zofran [place] 00 ODT) Zofran ODT 2015-06 No Notes: Memor ia 0-28 (Same as: l 15:58: Zofran [place] 00 ODT) Zofran ODT 2015-06 No Notes: Memor ia 0-28 (Same as: l 15:58: Zofran [place] 00 ODT) Zofran ODT 2015-06 No Notes: Memor ia 0-28 (Same as: l 15:58: Zofran [place] 00 ODT) Zofran ODT 2015-06 No Notes: Memor ia 0-28 (Same as: l 15:58: Zofran Eb 00 ODT) Zofran ODT 2015-06 No Notes: Memor ia 0-28 (Same as: l 15:58: Zofran [place] 00 ODT) influenza 2015-06 No Notes: Memori [...] mL IM) Shake well before use influenza 2016- No Notes: Memori a virus 0-28 (Same as: l vaccine, 14:00: Fluzone Garry n inactivated 00 Quadrivale nt, Fluarix Quadrivale nt) For 3 years of age and older (0.5 mL IM) Shake well before use influenza 2016- No Notes: Memori a virus 0-28 (Same as: l vaccine, 14:00: Fluzone [place] inactivated 00 Quadrivale nt, Fluarix Quadrivale nt) For 3 years of age and older (0.5 mL IM) Shake well before use influenza 2016- No Notes: Memori a virus 0-28 (Same as: l vaccine, 14:00: Fluzone [place] inactivated 00 Quadrivale nt, Fluarix Quadrivale nt) For 3 years of age and older (0.5 mL IM) Shake well before use influenza 2016- No Notes: Memori a virus 0-28 (Same as: l vaccine, 14:00: Fluzone [place] inactivated 00 Quadrivale nt, Fluarix Quadrivale nt) For 3 years of age and older (0.5 mL IM) Shake well before use influenza 2016- No Notes: Memori a virus 0-28 (Same as: l vaccine, 14:00: Fluzone [place] inactivated 00 Quadrivale nt, Fluarix Quadrivale nt) For 3 years of age and older (0.5 mL IM) Shake well before use influenza 2016- No Notes: Memori a virus 0-28 (Same as: l vaccine, 14:00: Fluzone [place] inactivated 00 Quadrivale nt, Fluarix Quadrivale nt) For 3 years of age and older (0.5 mL IM) Shake well before use influenza 2016- No Notes: Memori a virus 0-28 (Same as: l vaccine, 14:00: Fluzone [place] inactivated 00 Quadrivale nt, Fluarix Quadrivale nt) For 3 years of age and older (0.5 mL IM) Shake well before use influenza 2016- No Notes: Memori a virus 0-28 (Same as: l vaccine, 14:00: Fluzone [place] inactivated 00 Quadrivale nt, Fluarix Quadrivale nt) For 3 years of age and older (0.5 mL IM) Shake well before use influenza 2016 No Notes: Memori a virus 0-28 (Same as: l vaccine, 14:00: Fluzone [place] inactivated 00 Quadrivale nt, Fluarix Quadrivale nt) For 3 years of age and older (0.5 mL IM) Shake well before use influenza 2016 No Notes: Memori a virus 0-28 (Same as: l vaccine, 14:00: Fluzone [place] inactivated 00 Quadrivale nt, Fluarix Quadrivale nt) For 3 years of age and older (0.5 mL IM) Shake well before use influenza 2016 No Notes: Memori a virus 0-28 (Same as: l vaccine, 14:00: Fluzone [place] inactivated 00 Quadrivale nt, Fluarix Quadrivale nt) For 3 years of age and older (0.5 mL IM) Shake well before use influenza 2016 No Notes: Memori a virus 0-28 (Same as: l vaccine, 14:00: Fluzone [place] inactivated 00 Quadrivale nt, Fluarix Quadrivale nt) For 3 years of age and older (0.5 mL IM) Shake well before use influenza 2016 No Notes: Memori a virus 0-28 (Same as: l vaccine, 14:00: Fluzone [place] inactivated 00 Quadrivale nt, Fluarix Quadrivale nt) For 3 years of age and older (0.5 mL IM) Shake well before use influenza 2016 No Notes: Memori a virus 0-28 (Same as: l vaccine, 14:00: Fluzone [place] inactivated 00 Quadrivale nt, Fluarix Quadrivale nt) For 3 years of age and older (0.5 mL IM) Shake well before use influenza 2016 No Notes: Memori a virus 0-28 (Same [...] e 0-28 IV push l 12:30: reconstitu [place] 00 te with 10 ml 0.9% sodium [...] e 0-28 IV push l 12:30: reconstitu [place] 00 te with 10 ml 0.9% sodium chloride and push over 2 minutes. (Same as: Protonix) Metoclopram 2015-06 No Notes: Kehinde batsheva rebecca 5 MG 0-28 (Same as: l Oral Tablet 12:30: Reglan) Her pelaez [Reglan] 00 Take 30 min before meals Protonix 2015-06 No Notes: Memoria 0-28 Tablet l 12:30: should not [place] 00 be chewed or crushed. (Same as: Protonix) pantoprazol 2015-06 No Notes: For Memoria e 0-28 IV push l 12:30: reconstitu [place] 00 te with 10 ml 0.9% sodium chloride and push over 2 minutes. (Same as: Protonix) Metoclopram 2015-06 No Notes: Kehinde batsheva rebecca 5 MG 0-28 (Same as: l Oral Tablet 12:30: Reglan) Her pelaez [Reglan] 00 Take 30 min before meals Protonix 2015-06 No Notes: Memoria 0-28 Tablet l 12:30: should not [place] 00 be chewed or crushed. (Same as: [...] Memoria 0-28 Tablet l 12:30: should not [place] 00 be chewed or crushed. (Same as: [...] Memoria 0-28 Tablet l 12:30: should not [place] 00 be chewed or crushed. (Same as: Protonix) Metoclopram 2015-06 No Notes: Kehinde batsheva rebecca 5 MG 0-28 (Same as: l Oral Tablet 12:30: Reglan) Her pelaez [Reglan] 00 Take 30 min before meals Protonix 2015-06 No Notes: Memoria 0-28 Tablet l 12:30: should not [place] 00 be chewed or crushed. (Same as: Protonix) pantoprazol 2015-06 No Notes: For Memoria e 0-28 IV push l 12:30: reconstitu [place] 00 te with 10 ml 0.9% sodium chloride and push over 2 minutes. (Same as: Protonix) pantoprazol 2015-06 No Notes: [...] Memoria 0-28 Tablet l 12:30: should not [place] 00 be chewed or crushed. (Same as: Protonix) pantoprazol 2015-06 No Notes: For Memoria e 0-28 IV push l 12:30: reconstitu [place] 00 te with 10 ml 0.9% sodium [...] e 0-28 IV push l 12:30: reconstitu [place] 00 te with 10 ml 0.9% sodium [...] Memoria 0-28 Tablet l 12:30: should not [place] 00 be chewed or crushed. (Same as: [...] e 0-28 IV push l 12:30: reconstitu [place] 00 te with 10 ml 0.9% sodium [...] e 0-28 IV push l 12:30: reconstitu [place] 00 te with 10 ml 0.9% sodium [...] e 0-28 IV push l 12:30: reconstitu [place] 00 te with 10 ml 0.9% sodium [...] Memoria 0-28 Tablet l 12:30: should not [place] 00 be chewed or crushed. (Same as: Protonix) pantoprazol 2015-06 No Notes: For Memoria e 0-28 IV push l 12:30: reconstitu [place] 00 te with 10 ml 0.9% sodium [...] oria 0-28 IV push l 09:43: reconstitu [place] 00 te with 10 ml 0.9% sodium chloride and push over 2 minutes. (Same as: Protonix) Protonix 2015-06 No Notes: For Mem oria 0-28 IV push l 09:43: reconstitu Eb 00 te with 10 ml 0.9% sodium chloride and push over 2 minutes. (Same as: Protonix) Protonix 2015-06 No Notes: For Mem oria 0-28 IV push l 09:43: reconstitu [place] 00 te with 10 ml 0.9% sodium chloride and push over 2 minutes. (Same as: Protonix) Protonix 2015-06 No Notes: For Mem oria 0-28 IV push l 09:43: reconstitu Eb 00 te with 10 ml 0.9% sodium chloride and push over 2 minutes. (Same as: Protonix) Protonix 2015-06 No Notes: For Mem oria 0-28 IV push l 09:43: reconstitu [place] 00 te with 10 ml 0.9% sodium chloride and push over 2 minutes. (Same as: Protonix) Protonix 2015-06 No Notes: For Mem oria 0-28 IV push l 09:43: reconstitu Eb 00 te with 10 ml 0.9% sodium chloride and push over 2 minutes. (Same as: Protonix) Protonix 2015-06 No Notes: For Mem oria 0-28 IV push l 09:43: reconstitu [place] 00 te with 10 ml 0.9% sodium chloride and push over 2 minutes. (Same as: Protonix) Protonix 2015-06 No Notes: For Mem oria 0-28 IV push l 09:43: reconstitu Eb 00 te with 10 ml 0.9% sodium chloride and push over 2 minutes. (Same as: Protonix) Protonix 2015-06 No Notes: For Mem oria 0-28 IV push l 09:43: reconstitu [place] 00 te with 10 ml 0.9% sodium chloride and push over 2 minutes. (Same as: Protonix) Protonix 2015-06 No Notes: For Mem oria 0-28 IV push l 09:43: reconstitu Eb 00 te with 10 ml 0.9% sodium chloride and push over 2 minutes. (Same as: Protonix) Protonix 2015-06 No Notes: For Mem oria 0-28 IV push l 09:43: reconstitu [place] 00 te with 10 ml 0.9% sodium chloride and push over 2 minutes. (Same as: Protonix) Protonix 2015-06 No Notes: For Mem oria 0-28 IV push l 09:43: reconstitu [place] 00 te with 10 ml 0.9% sodium chloride and push over 2 minutes. (Same as: Protonix) Protonix 2015-06 No Notes: For Mem oria 0-28 IV push l 09:43: reconstitu Eb 00 te with 10 ml 0.9% sodium chloride and push over 2 minutes. (Same as: Protonix) Protonix 2015-06 No Notes: For Mem oria 0-28 IV push l 09:43: reconstitu [place] 00 te with 10 ml 0.9% sodium chloride and push over 2 minutes. (Same as: Protonix) Protonix 2015-06 No Notes: For Mem oria 0-28 IV push l 09:43: reconstitu [place] 00 te with 10 ml 0.9% sodium chloride and push over 2 minutes. (Same as: Protonix) Protonix 2015-06 No Notes: For Mem oria 0-28 IV push l 09:43: reconstitu Eb 00 te with 10 ml 0.9% sodium chloride and push over 2 minutes. (Same as: Protonix) Phenergan 2015-06 No Notes: Memori a 0-28 (Same as: l 00:28: Phenergan) [place] Zofran 2015-06 No Notes: Memoria 0-28 (Same as: l 00:28: Zofran) Eb 00 MEDICATION WASTE Product Size: 4 mg Product Wasted: ___ mg Phenergan 2015-06 No Notes: Memori a 0-28 (Same as: l 00:28: Phenergan) [place] Zofran 2015-06 No Notes: Memoria 0-28 (Same as: l 00:28: Zofran) [place] 00 MEDICATION WASTE Product Size: 4 mg Product Wasted: ___ mg Phenergan 2015-06 No Notes: Memori a 0-28 (Same as: l 00:28: Phenergan) Eb Zofran 2015-06 No Notes: Memoria 0-28 (Same [...] a 0-28 (Same as: l 00:28: Phenergan) [place] 00 Zo2015-06 No Notes: Memoria 0-28 (Same as: l 00:28: Zofran) Eb 00 MEDICATION WASTE Product Size: 4 mg Product Wasted: ___ mg Phenergan 2015-06 No Notes: Memori a 0-28 (Same as: l 00:28: Phenergan) [place] 00 Zoan 2015-06 No Notes: Memoria 0-28 (Same as: l 00:28: Zofran) Eb 00 MEDICATION WASTE Product Size: 4 mg Product Wasted: ___ mg Phenergan 2015-06 No Notes: Memori a 0-28 (Same as: l 00:28: Phenergan) Eb Zoan 2015-06 No Notes: Memoria 0-28 (Same as: l 00:28: Zofran) Eb 00 MEDICATION WASTE Product Size: 4 mg Product Wasted: ___ mg Phenergan 2015-06 No Notes: Memori a 0-28 (Same as: l 00:28: Phenergan) Eb 2015-06 No Notes: Memoria 0-28 (Same as: l 00:28: Zofran) Eb 00 MEDICATION WASTE Product Size: 4 mg Product Wasted: ___ mg Phenergan 2015-06 No Notes: Memori a 0-28 (Same as: l 00:28: Phenergan) [place] 00 Zofran 2015-06 No Notes: Memoria 0-28 (Same as: l 00:28: Zofran) Eb 00 MEDICATION WASTE Product Size: 4 mg Product Wasted: ___ mg Phenergan 2015-06 No Notes: Memori a 0-28 (Same as: l 00:28: Phenergan) [place] 00 Zofran 2015-06 No Notes: Memoria 0-28 [...] a 0-28 (Same as: l 00:28: Phenergan) [place] 00 Zofran 2015-06 No Notes: Memoria 0-28 (Same as: l 00:28: Zofran) Eb 00 MEDICATION WASTE Product Size: 4 mg Product Wasted: ___ mg Phenergan 2015-06 No Notes: Memori a 0-28 (Same as: l 00:28: Phenergan) Eb Zofran 2015-06 No Notes: Memoria 0-28 (Same as: l 00:28: Zofran) Eb 00 MEDICATION WASTE Product Size: 4 mg Product Wasted: ___ mg Phenergan 2015-06 No Notes: Memori a 0-28 (Same as: l 00:28: Phenergan) [place] Zofran 2015-06 No Notes: Memoria 0-28 (Same as: l 00:28: Zofran) Eb 00 MEDICATION WASTE Product Size: 4 mg Product Wasted: ___ mg Phenergan 2015-06 No Notes: Memori a 0-28 (Same as: l 00:28: Phenergan) Eb Zofran 2015-06 No Notes: Memoria 0-28 (Same as: l 00:28: Zofran) Eb 00 MEDICATION WASTE Product Size: 4 mg Product Wasted: ___ mg Phenergan 2015-06 No Notes: Memori a 0-28 (Same as: l 00:28: Phenergan) Eb Zofran 2015-06 No Notes: Memoria 0-28 (Same as: l 00:28: Zofran) [place] 00 MEDICATION WASTE Product Size: 4 mg Product Wasted: ___ mg Phenergan 2015-06 No Notes: Memori a 0-28 (Same as: l 00:28: Phenergan) Eb Zofran 2015-06 No Notes: Memoria 0-28 (Same as: l 00:28: Zofran) [place] 00 MEDICATION WASTE Product Size: 4 mg Product Wasted: ___ mg Morphine 2015-06 No Notes: Memoria 0-28 (Same l 00:27: as:MORPhin [place] 00 e Sulfate) Morphine 2015-06 No Notes: Memoria 0-28 (Same l 00:27: as:MORPhin [place] 00 e Sulfate) Morphine 2015-06 No Notes: [...] Notes: Memoria 0-28 (Same l 00:27: as:MORPhin [place] 00 e Sulfate) Morphine 2015-06 No Notes: Memoria 0-28 (Same l 00:27: as:MORPhin Eb 00 e Sulfate) Morphine 2015-06 No Notes: Memoria 0-28 (Same l 00:27: as:MORPhin Eb 00 e Sulfate) Morphine 2015-06 No Notes: Memoria 0-28 (Same l 00:27: as:MORPhin [place] 00 e Sulfate) Morphine 2015-06 No Notes: Memoria 0-28 (Same l 00:27: as:MORPhin Eb 00 e Sulfate) Morphine 2015-06 No Notes: Memoria 0-28 (Same l 00:27: as:MORPhin [place] 00 e Sulfate) Morphine 2015-06 No Notes: Memoria 0-28 (Same l 00:27: as:MORPhin Eb 00 e Sulfate) Morphine 2015-06 No Notes: Memoria 0-28 (Same l 00:27: as:MORPhin [place] 00 e Sulfate) Morphine 2015-06 No Notes: Memoria 0-28 (Same l 00:27: as:MORPhin Eb 00 e Sulfate) Morphine 2015-06 No Notes: Memoria 0-28 (Same l 00:27: as:MORPhin Eb 00 e Sulfate) Morphine 2015-06 No Notes: Memoria 0-28 (Same l 00:27: as:MORPhin [place] 00 e Sulfate) Morphine 2015-06 No Notes: [...] a 0-27 (Same as: l 23:20: Motrin) [place] 00 "Do Not Crush" Take with food. Ibuprofen 2015-06 No Notes: Memori a 0-27 (Same as: l 23:20: Motrin) Eb 00 "Do Not Crush" Take with food. Ibuprofen 2015-06 No Notes: Memori a 0-27 (Same as: l 23:20: Motrin) [place] 00 "Do Not Crush" Take with food. Ibuprofen 2015-06 No Notes: Memori a 0-27 (Same as: l 23:20: Motrin) [place] 00 "Do Not Crush" Take with food. Ibuprofen 2016 No Notes: Memori a 0-27 (Same as: l 23:20: Motrin) [place] 00 "Do Not Crush" Take with food. Ibuprofen 2016 No Notes: Memori a 0-27 (Same as: l 23:20: Motrin) Eb 00 "Do Not Crush" Take with food. Ibuprofen 2016 No Notes: Memori a 0-27 (Same as: l 23:20: Motrin) [place] 00 "Do Not Crush" Take with food. Ibuprofen 2016 No Notes: Memori a 0-27 (Same as: l 23:20: Motrin) [place] 00 "Do Not Crush" Take with food. Ibuprofen 2015-06 No Notes: Memori a 0-27 (Same as: l 23:20: Motrin) Eb 00 "Do Not Crush" Take with food. Ibuprofen 2015-06 No Notes: Memori a 0-27 (Same as: l 23:20: Motrin) Eb 00 "Do Not Crush" Take with food. Ibuprofen 2016 No Notes: Memori a 0-27 (Same as: l 23:20: Motrin) Eb 00 "Do Not Crush" Take with food. Ibuprofen 2015-06 No Notes: Memori a 0-27 (Same as: l 23:20: Motrin) Eb 00 "Do Not Crush" Take with food. Ibuprofen 2015-06 No Notes: Memori a 0-27 (Same as: l 23:20: Motrin) Eb 00 "Do Not Crush" Take with food. Ibuprofen 2016 No Notes: Memori a 0-27 (Same as: l 23:20: Motrin) [place] 00 "Do Not Crush" Take with food. Ibuprofen 2016 No Notes: Memori a 0-27 (Same as: l 23:20: Motrin) Eb 00 "Do Not Crush" Take with food. Ibuprofen 2015-06 No Notes: Memori a 0-27 (Same as: l 23:20: Motrin) [place] 00 "Do Not Crush" Take with food. Saline 2015-06 No Notes: Memoria Flush 0.9% 0-27 (Same as: l 21:35: BD [place] 00 Posiflush) Sodium 2015-06 No 1,000 mL, Memori a Chloride 0-27 Rate: 125 l 0.154 21:35: ml/hr, Eb MEQ/ML 00 Infuse Injectable over: 8 Solution hr, Route: IV, Dosing Weight 88.636 kg, Total Volume: 1,000, Start date: 04/08/16 16:35:00 CDT, Duration: 30 day, Stop date: 05/08/16 16:34:00 [employer] Ondansetron 2015-06 No Notes: Kehinde batsheva 0-27 [...] Duration: 30 day, Stop date: 05/08/16 16:34:00 [employer] Ondansetron 2015-06 No Notes: Kehinde batsheva 0-27 (Same as: l 21:35: Zofran) Eb 00 MEDICATION WASTE Product Size: 4 mg Product Wasted: ___ mg Saline 2015-06 No Notes: Memoria Flush 0.9% 0-27 (Same as: l 21:35: BD [place] 00 Posiflush) Sodium 2015-06 No 1,000 mL, Mem[facility] a Chloride 0-27 Rate: 125 l 0.154 21:35: ml/hr, [place] MEQ/ML 00 Infuse Injectable over: 8 Solution hr, Route: IV, Dosing Weight 88.636 kg, Total Volume: 1,000, Start date: 04/08/16 16:35:00 CDT, Duration: 30 day, Stop date: 05/08/16 16:34:00 [employer] Ondansetron 2015-06 No Notes: Kehinde batsheva 0-27 (Same as: l 21:35: Zofran) [place] 00 MEDICATION WASTE Product Size: 4 mg [...] Duration: 30 day, Stop date: 05/08/16 16:34:00 [employer] Ondansetron 2015-06 No Notes: Kehinde batsheva 0-27 (Same as: l 21:35: Zofran) [place] 00 MEDICATION WASTE Product Size: 4 mg Product Wasted: ___ mg Saline 2015-06 No Notes: Mem[facility] Flush 0.9% 0-27 (Same as: l 21:35: BD [place] 00 Posiflush) Sodium 2015-06 No 1,000 mL, Mem[facility] a Chloride 0-27 Rate: 125 l 0.154 21:35: ml/hr, [place] MEQ/ML 00 Infuse Injectable over: 8 Solution hr, Route: IV, Dosing Weight 88.636 kg, Total Volume: 1,000, Start date: 04/08/16 16:35:00 CDT, Duration: 30 day, Stop date: 05/08/16 16:34:00 [employer] Ondansetron 2015-06 No Notes: Kehinde batsheva 0-27 (Same as: l 21:35: Zofran) [place] 00 MEDICATION WASTE Product Size: 4 mg Product Wasted: ___ mg Saline 2015-06 No Notes: Memoria Flush 0.9% 0-27 (Same as: l 21:35: BD [place] 00 Posiflush) Sodium 2015-06 No 1,000 mL, Mem[facility] a Chloride 0-27 Rate: 125 l 0.154 21:35: ml/hr, [place] MEQ/ML 00 Infuse Injectable over: 8 Solution hr, Route: IV, Dosing Weight 88.636 kg, Total Volume: 1,000, Start date: 04/08/16 16:35:00 CDT, Duration: 30 day, Stop date: 05/08/16 16:34:00 [employer] Ondansetron 2015-06 No Notes: Kehinde batsheva 0-27 (Same as: l 21:35: Zofran) Eb 00 MEDICATION WASTE Product Size: 4 mg Product Wasted: ___ mg Saline 2015-06 No Notes: Memoria Flush 0.9% 0-27 (Same as: l 21:35: BD [place] 00 Posiflush) Sodium 2015-06 No 1,000 mL, Mem[facility] a Chloride 0-27 Rate: 125 l 0.154 21:35: ml/hr, [place] MEQ/ML 00 Infuse Injectable over: 8 Solution hr, Route: IV, Dosing Weight 88.636 kg, Total Volume: 1,000, Start date: 04/08/16 16:35:00 CDT, Duration: 30 day, Stop date: 05/08/16 16:34:00 [employer] Ondansetron 2015-06 No Notes: Kehinde batsheva 0-27 (Same as: l 21:35: Zofran) [place] 00 MEDICATION WASTE Product Size: 4 mg Product Wasted: ___ mg Saline 2015-06 No Notes: Memoria Flush 0.9% 0-27 (Same as: l 21:35: BD [place] 00 Posiflush) Sodium 2015-06 No 1,000 mL, Mem[facility] a Chloride 0-27 Rate: 125 l 0.154 21:35: ml/hr, [place] MEQ/ML 00 Infuse Injectable over: 8 Solution hr, Route: IV, Dosing Weight 88.636 kg, Total Volume: 1,000, Start date: 04/08/16 16:35:00 CDT, Duration: 30 day, Stop date: 05/08/16 16:34:00 [employer] Saline 2015-06 No Notes: [facility] Flush 0.9% 0-27 (Same as: l 21:35: BD Eb 00 Posiflush) Sodium 2015-06 No 1,000 mL, [facility] a Chloride 0-27 Rate: 125 l 0.154 21:35: ml/hr, [place] MEQ/ML 00 Infuse Injectable over: 8 Solution hr, Route: IV, Dosing Weight 88.636 kg, Total Volume: 1,000, Start date: 04/08/16 16:35:00 CDT, Duration: 30 day, Stop date: 05/08/16 16:34:00 [employer] Ondansetron 2015-06 No Notes: Kehinde batsheva 0-27 (Same as: l 21:35: Zofran) Eb 00 MEDICATION WASTE Product Size: 4 mg Product Wasted: ___ mg Ondansetron 2015-06 No Notes: Kehinde batsheva 0-27 [...] Duration: 30 day, Stop date: 05/08/16 16:34:00 [employer] Ondansetron 2015-06 No Notes: Kehinde batsheva 0-27 [...] Duration: 30 day, Stop date: 05/08/16 16:34:00 [employer] Ondansetron 2015-06 No Notes: Kehinde batsheva 0-27 (Same as: l 21:35: Zofran) [place] 00 MEDICATION WASTE Product Size: 4 mg [...] Duration: 30 day, Stop date: 05/08/16 16:34:00 [employer] Ondansetron 2015-06 No Notes: Kehinde batsheva 0-27 (Same as: l 21:35: Zofran) Eb 00 MEDICATION WASTE Product Size: 4 mg Product Wasted: ___ mg Saline 2015-06 No Notes: [facility] Flush 0.9% 0-27 (Same as: l 21:35: BD [place] 00 Posiflush) Sodium 2015-06 No 1,000 mL, [facility] a Chloride 0-27 Rate: 125 l 0.154 21:35: ml/hr, [place] MEQ/ML 00 Infuse Injectable over: 8 Solution hr, Route: IV, Dosing Weight 88.636 kg, Total Volume: 1,000, Start date: 04/08/16 16:35:00 CDT, Duration: 30 day, Stop date: 05/08/16 16:34:00 [employer] Ondansetron 2015-06 No Notes: Kehinde batsheva 0-27 (Same as: l 21:35: Zofran) Eb 00 MEDICATION WASTE Product Size: 4 mg Product Wasted: ___ mg Saline 2015-06 No Notes: [facility] Flush 0.9% 0-27 (Same as: l 21:35: BD Eb 00 Posiflush) Sodium 2015-06 No 1,000 mL, [facility] a Chloride 0-27 Rate: 125 l 0.154 21:35: ml/hr, [place] MEQ/ML 00 Infuse Injectable over: 8 Solution hr, Route: IV, Dosing Weight 88.636 kg, Total Volume: 1,000, Start date: 04/08/16 16:35:00 CDT, Duration: 30 day, Stop date: 05/08/16 16:34:00 [employer] Ondansetron 2015-06 No Notes: Kehinde batsheva 0-27 (Same as: l 21:35: Zofran) Eb 00 MEDICATION WASTE Product Size: 4 mg Product Wasted: ___ mg Saline 2015-06 No Notes: [facility] Flush 0.9% 0-27 (Same as: l 21:35: BD [place] 00 Posiflush) Sodium 2015-06 No 1,000 mL, [facility] a Chloride 0-27 Rate: 125 l 0.154 21:35: ml/hr, Eb MEQ/ML 00 Infuse Injectable over: 8 Solution hr, Route: IV, Dosing Weight 88.636 kg, Total Volume: 1,000, Start date: 04/08/16 16:35:00 CDT, Duration: 30 day, Stop date: 05/08/16 16:34:00 [employer] Ondansetron 2015-06 No Notes: Kehinde batsheva 0-27 [...] Duration: 30 day, Stop date: 05/08/16 16:34:00 [employer] Ondansetron 2015-06 No Notes: Kehinde batsheva 0-27 [...] Duration: 30 day, Stop date: 05/08/16 16:34:00 [employer] Ondansetron 2015-06 No Notes: Kehinde batsheva 0-27 (Same as: l 21:35: Zofran) [place] 00 MEDICATION WASTE Product Size: 4 mg Product Wasted: ___ mg Saline 2015-06 No Notes: [facility] Flush 0.9% 0-27 (Same as: l 21:35: BD [place] 00 Posiflush) Sodium 2015-06 No 1,000 mL, [facility] a Chloride 0-27 Rate: 125 l 0.154 21:35: ml/hr, [place] MEQ/ML 00 Infuse Injectable over: 8 Solution hr, Route: IV, Dosing Weight 88.636 kg, Total Volume: 1,000, Start date: 04/08/16 16:35:00 CDT, Duration: 30 day, Stop date: 05/08/16 16:34:00 [employer] Ondansetron 2015-06 No Notes: Kehinde batsheva 0-27 [...] Memoria 0-27 Route: l 20:22: IVP, Drug [place] 00 form: INJ, ONCE, Dosing Weight 88.636, kg, Priority: STAT, Start date: 04/08/16 15:22:00 CDT, Stop date: 04/08/16 15:22:00 CDT Zofran 2015- No 4 mg, Memoria 0-27 Route: l 20:22: IVP, Drug [place] 00 form: INJ, ONCE, Dosing Weight 88.636, [...] Memoria 0-27 Route: l 20:22: IVP, Drug [place] 00 form: INJ, ONCE, Dosing Weight 88.636, [...] Memoria 0-27 Route: l 20:22: IVP, Drug [place] 00 form: INJ, ONCE, Dosing Weight 88.636, kg, Priority: STAT, Start date: 04/08/16 15:22:00 CDT, Stop date: 04/08/16 15:22:00 CDT Zofran 2015-06 No 4 mg, [facility] 0-27 Route: l 20:22: IVP, Drug [place] 00 form: INJ, ONCE, Dosing Weight 88.636, kg, Priority: STAT, Start date: 04/08/16 15:22:00 CDT, Stop date: 04/08/16 15:22:00 CDT Zofran 2015- No 4 mg, [facility] 0-27 Route: l 20:22: IVP, Drug [place] 00 form: INJ, ONCE, Dosing Weight 88.636, kg, Priority: STAT, Start date: 04/08/16 15:22:00 CDT, Stop date: 04/08/16 15:22:00 CDT Zofran 2015- No 4 mg, [facility] 0-27 Route: l 20:22: IVP, Drug [place] 00 form: INJ, ONCE, Dosing Weight 88.636, kg, Priority: STAT, Start date: 04/08/16 15:22:00 CDT, Stop date: 04/08/16 15:22:00 CDT Zofran 2015-06 No 4 mg, [facility] 0-27 Route: l 20:22: IVP, Drug [place] 00 form: INJ, ONCE, Dosing Weight 88.636, kg, Priority: STAT, Start date: 04/08/16 15:22:00 CDT, Stop date: 04/08/16 15:22:00 CDT Zofran 2015-06 No 4 mg, [facility] 0-27 Route: l 20:22: IVP, Drug [place] 00 form: INJ, ONCE, Dosing Weight 88.636, kg, Priority: STAT, Start date: 04/08/16 15:22:00 CDT, Stop date: 04/08/16 15:22:00 CDT Zofran 2015-06 No 4 mg, [facility] 0-27 Route: l 20:22: IVP, Drug [place] 00 form: INJ, ONCE, Dosing Weight 88.636, kg, Priority: STAT, Start date: 04/08/16 15:22:00 CDT, Stop date: 04/08/16 15:22:00 CDT Zofran 2015-06 No 4 mg, [facility] 0-27 Route: l 20:22: IVP, Drug [place] 00 form: INJ, ONCE, Dosing Weight 88.636, kg, Priority: STAT, Start date: 04/08/16 15:22:00 CDT, Stop date: 04/08/16 15:22:00 CDT Zofran 2015- No 4 mg, [facility] 0-27 Route: l 20:22: IVP, Drug [place] 00 form: INJ, ONCE, Dosing Weight 88.636, [...] Memoria 0-27 Route: l 20:22: IVP, Drug [place] 00 form: INJ, ONCE, Dosing Weight 88.636, kg, Priority: STAT, Start date: 04/08/16 15:22:00 CDT, Stop date: 04/08/16 15:22:00 CDT gabapentin 2015-06 No 300 mg = 1 M emoria 300 MG Oral 0-27 cap, PO, l Capsule 19:52: TID, # 30 Verna nn [Neurontin] 00 cap, 1 Refill(s) Promethazin 2015-06 No 25 mg = 1 M emoria e 0-27 supp, ID, l Hydrochlori 19:52: Q6H, PRN He aleena de 25 MG 00 Nausea & Rectal [...] = 1 M emoria e 0-27 supp, ID, l Hydrochlori 19:52: Q6H, PRN He rmann [...] = 1 M emoria e 0-27 supp, ID, l Hydrochlori 19:52: Q6H, PRN He rmann [...] = 1 M emoria e 0-27 supp, ID, l Hydrochlori 19:52: Q6H, PRN He rmann [...] = 1 M emoria e 0-27 supp, ID, l Hydrochlori 19:52: Q6H, PRN He rmann [...] = 1 M emoria e 0-27 supp, ID, l Hydrochlori 19:52: Q6H, PRN He rmann [...] = 1 M emoria e 0-27 supp, ID, l Hydrochlori 19:52: Q6H, PRN He rmann [...] = 1 M emoria e 0-27 supp, ID, l Hydrochlori 19:52: Q6H, PRN He rmann [...] = 1 M emoria e 0-27 supp, ID, l Hydrochlori 19:52: Q6H, PRN He rmann de 25 MG 00 Nausea & Rectal Vomiting, Suppository X 3 day, # [Phenergan] 12 supp, 0 Refill(s) gabapentin 2015-06 No 300 mg = 1 M emoria 300 MG Oral 0-27 cap, PO, l Capsule 19:52: TID, # 30 Verna nn [Neurontin] 00 cap, 1 Refill(s) Promethazin 2015-06 No 25 mg = 1 M emoria e 0-27 supp, ID, l Hydrochlori 19:52: Q6H, PRN He rmann [...] 5 day, # 10 tab, 0 Refill(s) Ondansetron 2015-06 No 4 mg [...] = 1 M emoria e 0-27 supp, ID, l Hydrochlori 19:52: Q6H, PRN He rmann [...] = 1 M emoria e 0-27 supp, ID, l Hydrochlori 19:52: Q6H, PRN He rmann [...] = 1 M emoria e 0-27 supp, ID, l Hydrochlori 19:52: Q6H, PRN He rmann [...] = 1 M emoria e 0-27 supp, ID, l Hydrochlori 19:52: Q6H, PRN He rmann [...] = 1 M emoria e 0-27 supp, ID, l Hydrochlori 19:52: Q6H, PRN He rmann [...] = 1 M emoria e 0-27 supp, ID, l Hydrochlori 19:52: Q6H, PRN He rmann [...] = 1 M emoria e 0-27 supp, ID, l Hydrochlori 19:52: Q6H, PRN He rmann [...] = 1 M emoria e 0-27 supp, ID, l Hydrochlori 19:52: Q6H, PRN He rmann [...] ne 0-27 Same as: l 16:05: Dilaudid [place] 00 pantoprazol 2015-06 No Notes: Kehinde batsheva e 0-27 (Same as: l 16:05: Protonix) [place] 00 Metoclopram 2015-06 No Notes: Kehinde batsheva rebecca 0-27 (Same as: l 16:05: Reglan) [place] 00 Saline 2015-06 No Notes: Memoria Flush 0.9% 0-27 (Same as: l 16:05: BD [place] 00 Posiflush) Sodium 2015-06 No 1,000 mL, Mem[facility] a Chloride 0-27 2,000 l 0.154 16:05: ml/hr, [place] MEQ/ML 00 Infuse Injectable Over: 30 Solution minutes, Route: IV, 1,000, Drug form: INJ, ONCE, Priority: STAT, Dosing Weight 88.636 kg, Start date: 04/08/16 11:05:00 CDT, Duration: 1 doses or times, Stop date: 04/08/16 11:05:00 CDT Hydromorpho 2015-06 No Notes: Kehinde batsheva ne 0-27 Same as: l 16:05: Dilaudid Eb pantoprazol 2015-06 No Notes: Kehinde batsheva e 0-27 (Same as: l 16:05: Protonix) Eb Metoclopram 2015-06 No Notes: Kehinde batsheva rebecca 0-27 (Same as: l 16:05: Reglan) [place] 00 Saline 2015-06 No Notes: Mem[facility] Flush 0.9% 0-27 (Same as: l 16:05: BD [place] 00 Posiflush) Sodium 2015-06 No 1,000 mL, Mem[facility] a Chloride 0-27 2,000 l 0.154 16:05: ml/hr, [place] MEQ/ML 00 Infuse Injectable Over: 30 Solution [...] e 0-27 (Same as: l 16:05: Protonix) [place] 00 Metoclopram 2015-06 No Notes: Kehinde batsheva rebecca 0-27 (Same as: l 16:05: Reglan) [place] 00 Saline 2015-06 No Notes: [facility] Flush 0.9% 0-27 (Same as: l 16:05: BD [place] 00 Posiflush) Sodium 2015-06 No 1,000 mL, [...] ne 0-27 Same as: l 16:05: Dilaudid [place] 00 pantoprazol 2015-06 No Notes: Kehinde batsheva e 0-27 (Same as: l 16:05: Protonix) [place] Metoclopram 2015-06 No Notes: Kehinde batsheva rebecca 0-27 (Same as: l 16:05: Reglan) [place] 00 Saline 2015-06 No Notes: Memoria Flush 0.9% 0-27 (Same as: l 16:05: BD Eb 00 Posiflush) Sodium 2015-06 No 1,000 mL, Mem[facility] a Chloride 0-27 2,000 l 0.154 16:05: ml/hr, [place] MEQ/ML 00 Infuse Injectable Over: 30 Solution minutes, Route: IV, 1,000, Drug form: INJ, ONCE, Priority: STAT, Dosing Weight 88.636 kg, Start date: 04/08/16 11:05:00 CDT, Duration: 1 doses or times, Stop date: 04/08/16 11:05:00 CDT Hydromorpho 2015-06 No Notes: Kehinde batsheva ne 0-27 Same as: l 16:05: Dilaudid [place] 00 pantoprazol 2015-06 No Notes: Kehinde batsheva e 0-27 (Same as: l 16:05: Protonix) Eb 00 Metoclopram 2015-06 No Notes: Kehinde batsheva rebecca 0-27 (Same as: l 16:05: Reglan) [place] 00 Saline 2015-06 No Notes: Memoria Flush 0.9% 0-27 (Same as: l 16:05: BD Eb 00 Posiflush) Sodium 2015-06 No 1,000 mL, Mem[facility] a Chloride 0-27 2,000 l 0.154 16:05: ml/hr, [place] MEQ/ML 00 Infuse Injectable Over: 30 Solution minutes, Route: IV, 1,000, Drug form: INJ, ONCE, Priority: STAT, Dosing Weight 88.636 kg, Start date: 04/08/16 11:05:00 CDT, Duration: 1 doses or times, Stop date: 04/08/16 11:05:00 CDT Hydromorpho 2015-06 No Notes: Kehinde batsheva ne 0-27 Same as: l 16:05: Dilaudid [place] 00 pantoprazol 2015-06 No Notes: Kehinde batsheva e 0-27 (Same as: l 16:05: Protonix) [place] Metoclopram 2015-06 No Notes: Kehinde batsheva rebecca 0-27 (Same as: l 16:05: Reglan) [place] 00 Saline 2015-06 No Notes: Memoria Flush [...] e 0-27 (Same as: l 16:05: Protonix) [place] 00 Metoclopram 2015-06 No Notes: Kehinde batsheva rebecca 0-27 (Same as: l 16:05: Reglan) [place] 00 Saline 2015-06 No Notes: Memoria Flush 0.9% 0-27 (Same as: l 16:05: BD Eb 00 Posiflush) Sodium 2015-06 No 1,000 mL, Mem[facility] a Chloride 0-27 2,000 l 0.154 16:05: ml/hr, [place] MEQ/ML 00 Infuse Injectable Over: 30 Solution [...] rebecca 0-27 (Same as: l 16:05: Reglan) [place] Saline 2015-06 No Notes: Memoria Flush 0.9% 0-27 (Same as: l 16:05: BD [place] 00 Posiflush) Sodium 2015-06 No 1,000 mL, Mem[facility] a Chloride 0-27 2,000 l 0.154 16:05: ml/hr, [place] MEQ/ML 00 Infuse Injectable Over: 30 Solution minutes, Route: IV, 1,000, Drug form: INJ, ONCE, Priority: STAT, Dosing Weight 88.636 kg, Start date: 04/08/16 11:05:00 CDT, Duration: 1 doses or times, Stop date: 04/08/16 11:05:00 CDT Hydromorpho 2015-06 No Notes: Kehinde batsheva ne 0-27 Same as: l 16:05: Dilaudid [place] 00 pantoprazol 2015-06 No Notes: Kehinde batsheva e 0-27 (Same as: l 16:05: Protonix) [place] 00 Metoclopram 2015-06 No Notes: Kehinde batsheva rebecca 0-27 (Same as: l 16:05: Reglan) Eb 00 Saline 2015-06 No Notes: Memoria Flush 0.9% 0-27 (Same as: l 16:05: BD Eb 00 Posiflush) pantoprazol 2015-06 No Notes: Kehinde batsheva e 0-27 (Same as: l 16:05: Protonix) Eb 00 Metoclopram 2015-06 No Notes: Kehinde batsheva rebecca 0-27 (Same as: l 16:05: Reglan) Saline 2015-06 No Notes: Memoria Flush 0.9% 0-27 (Same as: l 16:05: BD Eb 00 Posiflush) Sodium 2015-06 No 1,000 mL, Mem[facility] a Chloride 0-27 2,000 l 0.154 16:05: ml/hr, [place] MEQ/ML 00 Infuse Injectable Over: 30 Solution minutes, Route: IV, 1,000, Drug form: INJ, ONCE, Priority: STAT, Dosing Weight 88.636 kg, Start date: 04/08/16 11:05:00 CDT, Duration: 1 doses or times, Stop date: 04/08/16 11:05:00 CDT Sodium 2015-06 No 1,000 mL, Mem[facility] a Chloride 0-27 2,000 l 0.154 16:05: ml/hr, Eb MEQ/ML 00 Infuse Injectable Over: 30 Solution minutes, Route: IV, 1,000, Drug form: INJ, ONCE, Priority: STAT, Dosing Weight 88.636 kg, Start date: 04/08/16 11:05:00 CDT, Duration: 1 doses or times, Stop date: 04/08/16 11:05:00 CDT pantoprazol 2015-06 No Notes: Kehinde batsheva e 0-27 (Same as: l 16:05: Protonix) Hydromorpho 2015-06 No Notes: Kehinde batsheva ne 0-27 Same as: l 16:05: Dilaudid Metoclopram 2015-06 No Notes: Kehinde batsheva rebecca 0-27 (Same as: l 16:05: Reglan) Saline 2015-06 No Notes: Memoria Flush 0.9% 0-27 (Same as: l 16:05: BD [place] 00 Posiflush) Sodium 2015-06 No 1,000 mL, Mem[facility] a Chloride 0-27 2,000 l 0.154 16:05: ml/hr, [place] MEQ/ML 00 Infuse Injectable Over: 30 Solution minutes, Route: IV, 1,000, Drug form: INJ, ONCE, Priority: STAT, Dosing Weight 88.636 kg, Start date: 04/08/16 11:05:00 CDT, Duration: 1 doses or times, Stop date: 04/08/16 11:05:00 CDT Hydromorpho 2015-06 No Notes: Kehinde batsheva ne 0-27 Same as: l 16:05: Dilaudid [place] 00 Hydromorpho 2015-06 No Notes: Kehinde batsheva ne 0-27 Same as: l 16:05: Dilaudid [place] 00 pantoprazol 2015-06 No Notes: Kehinde batsheva e 0-27 (Same as: l 16:05: Protonix) [place] 00 Metoclopram 2015-06 No Notes: Kehinde batsheva rebecca 0-27 (Same as: l 16:05: Reglan) [place] 00 Saline 2015-06 No Notes: Memoria Flush 0.9% 0-27 (Same as: l 16:05: BD Eb 00 Posiflush) Sodium 2015-06 No 1,000 mL, Mem[facility] a Chloride 0-27 2,000 l 0.154 16:05: ml/hr, [place] MEQ/ML 00 Infuse Injectable Over: 30 Solution minutes, Route: IV, 1,000, Drug form: INJ, ONCE, Priority: STAT, Dosing Weight 88.636 kg, Start date: 04/08/16 11:05:00 CDT, Duration: 1 doses or times, Stop date: 04/08/16 11:05:00 CDT Hydromorpho 2015-06 No Notes: Kehinde batsheva ne 0-27 Same as: l 16:05: Dilaudid Eb pantoprazol 2015-06 No Notes: Kehinde batsheva e 0-27 (Same as: l 16:05: Protonix) Eb 00 Metoclopram 2015-06 No Notes: Kehinde batsheva rebecca 0-27 (Same as: l 16:05: Reglan) Eb 00 Saline 2015-06 No Notes: Memoria Flush [...] 0-27 Same as: l 16:05: Dilaudid Eb pantoprazol 2015-06 No Notes: Kehinde batsheva e 0-27 (Same as: l 16:05: Protonix) Eb Metoclopram 2015-06 No Notes: Kehinde batsheva rebecca 0-27 (Same as: l 16:05: Reglan) Eb Saline 2015-06 No Notes: Memoria Flush 0.9% 0-27 (Same as: l 16:05: BD Eb 00 Posiflush) Sodium 2015-06 No 1,000 mL, Memori a Chloride 0-27 2,000 l 0.154 16:05: ml/hr, [place] MEQ/ML 00 Infuse Injectable Over: 30 Solution [...] rebecca 0-27 (Same as: l 16:05: Reglan) [place] Saline 2015-06 No Notes: Memoria Flush 0.9% 0-27 (Same as: l 16:05: BD Eb 00 Posiflush) Sodium 2015-06 No 1,000 mL, Mem[facility] a Chloride 0-27 2,000 l 0.154 16:05: ml/hr, [place] MEQ/ML 00 Infuse Injectable Over: 30 Solution minutes, Route: IV, 1,000, Drug form: INJ, ONCE, Priority: STAT, Dosing Weight 88.636 kg, Start date: 04/08/16 11:05:00 CDT, Duration: 1 doses or times, Stop date: 04/08/16 11:05:00 CDT Hydromorpho 2015-06 No Notes: Kehinde batsheva ne 0-27 Same as: l 16:05: Dilaudid [place] 00 pantoprazol 2015-06 No Notes: Kehinde batsheva e 0-27 (Same as: l 16:05: Protonix) Eb 00 Metoclopram 2015-06 No Notes: Kehinde batsheva rebecca 0-27 (Same as: l 16:05: Reglan) Eb 00 Saline 2015-06 No Notes: [facility] Flush 0.9% 0-27 (Same as: l 16:05: BD Eb 00 Posiflush) Sodium 2015-06 No 1,000 mL, Mem[facility] a Chloride 0-27 2,000 l 0.154 16:05: ml/hr, [place] MEQ/ML 00 Infuse Injectable Over: 30 Solution [...] e 0-27 (Same as: l 16:05: Protonix) [place] 00 Metoclopram 2015-06 No Notes: Kehinde batsheva rebecca 0-27 (Same as: l 16:05: Reglan) [place] 00 Saline 2015-06 No Notes: Memoria Flush 0.9% 0-27 (Same as: l 16:05: BD [place] 00 Posiflush) Sodium 2015-06 No 1,000 mL, [...] Dilaudid Eb 00 Remove old No Remove old M emoria Nicotine 7-14 Nicotine l patch 02:00: patch Eb before 00 before applying applying Q24H Q24H, ONCE, Drug form: MISC, Route: N/A, Daily, 12/24/15 21:00:00 CDT, Duration: 30 day, Stop date: 01/23/16 9:00:00 CDT Remove old No Remove old M emoria Nicotine 7-14 Nicotine l patch 02:00: patch [place] before 00 before applying applying Q24H Q24H, ONCE, Drug form: MISC, Route: N/A, Daily, 12/24/15 21:00:00 CDT, Duration: 30 day, Stop date: 01/23/16 9:00:00 CDT Remove old No Remove old M emoria Nicotine 7-14 Nicotine l patch 02:00: patch Eb before 00 before applying applying Q24H Q24H, ONCE, Drug form: MISC, Route: N/A, Daily, 12/24/15 21:00:00 CDT, Duration: 30 day, Stop date: 01/23/16 9:00:00 CDT Remove old No Remove old M emoria Nicotine 7-14 Nicotine l patch 02:00: patch Eb before 00 before applying applying Q24H Q24H, ONCE, Drug form: MISC, Route: N/A, Daily, 12/24/15 21:00:00 CDT, Duration: 30 day, Stop date: 01/23/16 9:00:00 CDT Remove old No Remove old M emoria Nicotine 7-14 Nicotine l patch 02:00: patch Eb before 00 before applying applying Q24H Q24H, ONCE, Drug form: MISC, Route: N/A, Daily, 12/24/15 21:00:00 CDT, Duration: 30 day, Stop date: 01/23/16 9:00:00 CDT Remove old No Remove old M emoria Nicotine 7-14 Nicotine l patch 02:00: patch Eb before 00 before applying applying Q24H Q24H, ONCE, Drug form: MISC, Route: N/A, Daily, 12/24/15 21:00:00 CDT, Duration: 30 day, Stop date: 01/23/16 9:00:00 CDT Remove old 2016-0 No Remove old M emoria Nicotine 7-14 Nicotine l patch 02:00: patch [place] before 00 before applying applying Q24H Q24H, ONCE, Drug form: MISC, Route: N/A, Daily, 12/24/15 21:00:00 CDT, Duration: 30 day, Stop date: 01/23/16 9:00:00 CDT Remove old 2015-0 No Remove old M emoria Nicotine 7-14 Nicotine l patch 02:00: patch [place] before 00 before applying applying Q24H Q24H, ONCE, Drug form: MISC, Route: N/A, Daily, 12/24/15 21:00:00 CDT, Duration: 30 day, Stop date: 01/23/16 9:00:00 CDT Remove old 2015-0 No Remove old M emoria Nicotine 7-14 Nicotine l patch 02:00: patch Eb before 00 before applying applying Q24H Q24H, ONCE, Drug form: MISC, Route: N/A, Daily, 12/24/15 21:00:00 CDT, Duration: 30 day, Stop date: 01/23/16 9:00:00 CDT Remove old 2015-0 No Remove old M emoria Nicotine 7-14 Nicotine l patch 02:00: patch [place] before 00 before applying applying Q24H Q24H, ONCE, Drug form: MISC, Route: N/A, Daily, 12/24/15 21:00:00 CDT, Duration: 30 day, Stop date: 01/23/16 9:00:00 CDT Remove old 2015-0 No Remove old M emoria Nicotine 7-14 Nicotine l patch 02:00: patch [place] before 00 before applying applying Q24H Q24H, ONCE, Drug form: MISC, Route: N/A, Daily, 12/24/15 21:00:00 CDT, Duration: 30 day, Stop date: 01/23/16 9:00:00 CDT Remove old 2015-0 No Remove old M emoria Nicotine 7-14 Nicotine l patch 02:00: patch [place] before 00 before applying applying Q24H Q24H, ONCE, Drug form: MISC, Route: N/A, Daily, 12/24/15 21:00:00 CDT, Duration: 30 day, Stop date: 01/23/16 9:00:00 CDT Remove old 2016-0 No Remove old M emoria Nicotine 7-14 Nicotine l patch 02:00: patch [place] before 00 before applying applying Q24H Q24H, ONCE, Drug form: MISC, Route: N/A, Daily, 12/24/15 21:00:00 CDT, Duration: 30 day, Stop date: 01/23/16 9:00:00 CDT Remove old 2015-0 No Remove old M em[facility] Nicotine 7-14 Nicotine l patch 02:00: patch [place] before 00 before applying applying Q24H Q24H, ONCE, Drug form: MISC, Route: N/A, Daily, 12/24/15 21:00:00 CDT, Duration: 30 day, Stop date: 01/23/16 9:00:00 CDT Remove old 2015-0 No Remove old M em[place] Nicotine 7-14 Nicotine l patch 02:00: patch [place] before 00 before applying applying Q24H Q24H, ONCE, Drug form: MISC, Route: N/A, Daily, 12/24/15 21:00:00 CDT, Duration: 30 day, Stop date: 01/23/16 9:00:00 CDT Remove old 2015-0 No Remove old M emoria Nicotine 7-14 Nicotine l patch 02:00: patch [place] before 00 before applying applying Q24H Q24H, ONCE, Drug form: MISC, Route: N/A, Daily, 12/24/15 21:00:00 CDT, Duration: 30 day, Stop date: 01/23/16 9:00:00 CDT Remove old 2015-0 No Remove old M emoria Nicotine 7-14 Nicotine l patch 02:00: patch Eb before 00 before applying applying Q24H Q24H, ONCE, Drug form: MISC, Route: N/A, Daily, 12/24/15 21:00:00 CDT, Duration: 30 day, Stop date: 01/23/16 9:00:00 CDT Remove old 2016- No Remove old M emoria Nicotine 7-14 Nicotine l patch 02:00: patch [place] before 00 before applying applying Q24H Q24H, ONCE, Drug form: MISC, Route: N/A, Daily, 12/24/15 21:00:00 CDT, Duration: 30 day, Stop date: 01/23/16 9:00:00 CDT Sucralfate Yes 1 gm = 10 Me moria 100 MG/ML 7-13 mL, PO, l Oral 22:14: QID, # Eb Suspension 00 1200 mL, 0 [Carafate] Refill(s), Pharmacy: [facility] [id number] [facility] pantoprazol Yes 40 mg = 1 M emoria e 40 mg 7-13 tab, PO, l oral 22:14: BID-Before [place] enteric 00 Meals, # coated 60 tab, 0 tablet Refill(s), Pharmacy: [facility] [id number] [facility] Sucralfate Yes 1 gm = 10 Me moria 100 MG/ML 7-13 mL, PO, l Oral 22:14: QID, # [place] Suspension 00 1200 mL, 0 [Carafate] Refill(s), Pharmacy: [facility] [id number] [facility] pantoprazol Yes 40 mg = 1 M emoria e 40 mg 7-13 tab, PO, l oral 22:14: BID-Before Eb enteric 00 Meals, # coated 60 tab, 0 tablet Refill(s), Pharmacy: [facility] [id number] [facility] Sucralfate Yes 1 gm = 10 Me moria 100 MG/ML 7-13 mL, PO, l Oral 22:14: QID, # [place] Suspension 00 1200 mL, 0 [Carafate] Refill(s), Pharmacy: [facility] [id number] [facility] pantoprazol Yes 40 mg = 1 M emoria e 40 mg 7-13 tab, PO, l oral 22:14: BID-Before [place] enteric 00 Meals, # coated 60 tab, 0 tablet Refill(s), Pharmacy: [facility] [id number] [facility] Sucralfate Yes 1 gm = 10 Me moria 100 MG/ML 7-13 mL, PO, l Oral 22:14: QID, # Eb Suspension 00 1200 mL, 0 [Carafate] Refill(s), Pharmacy: [facility] [id number] [facility] pantoprazol Yes 40 mg = 1 M emoria e 40 mg 7-13 tab, PO, l oral 22:14: BID-Before Eb enteric 00 Meals, # coated 60 tab, 0 tablet Refill(s), Pharmacy: [facility] [id number] [facility] Sucralfate Yes 1 gm = 10 Me moria 100 MG/ML 7-13 mL, PO, l Oral 22:14: QID, # [place] Suspension 00 1200 mL, 0 [Carafate] Refill(s), Pharmacy: [facility] [id number] [facility] pantoprazol Yes 40 mg = 1 M emoria e 40 mg 7-13 tab, PO, l oral 22:14: BID-Before [place] enteric 00 Meals, # coated 60 tab, 0 tablet Refill(s), Pharmacy: [facility] [id number] [facility] Sucralfate Yes 1 gm = 10 Me moria 100 MG/ML 7-13 mL, PO, l Oral 22:14: QID, # Eb Suspension 00 1200 mL, 0 [Carafate] Refill(s), Pharmacy: [facility] [address] [facility] pantoprazol Yes 40 mg = 1 M emoria e 40 mg 7-13 tab, PO, l oral 22:14: BID-Before [place] enteric 00 Meals, # coated 60 tab, 0 tablet Refill(s), Pharmacy: [facility] [id number] [facility] Sucralfate Yes 1 gm = 10 Me moria 100 MG/ML 7-13 mL, PO, l Oral 22:14: QID, # [place] Suspension 00 1200 mL, 0 [Carafate] Refill(s), Pharmacy: [facility] [address] [facility] pantoprazol Yes 40 mg = 1 M emoria e 40 mg 7-13 tab, PO, l oral 22:14: BID-Before [place] enteric 00 Meals, # coated 60 tab, 0 tablet Refill(s), Pharmacy: [facility] [address] [facility] Sucralfate Yes 1 gm = 10 Me moria 100 MG/ML 7-13 mL, PO, l Oral 22:14: QID, # Eb Suspension 00 1200 mL, 0 [Carafate] Refill(s), Pharmacy: [facility] [address] [facility] pantoprazol Yes 40 mg = 1 M emoria e 40 mg 7-13 tab, PO, l oral 22:14: BID-Before Eb enteric 00 Meals, # coated 60 tab, 0 tablet Refill(s), Pharmacy: [facility] [id number] [facility] Sucralfate Yes 1 gm = 10 Me moria 100 MG/ML 7-13 mL, PO, l Oral 22:14: QID, # [place] Suspension 00 1200 mL, 0 [Carafate] Refill(s), Pharmacy: [facility] [address] [facility] pantoprazol Yes 40 mg = 1 M emoria e 40 mg 7-13 tab, PO, l oral 22:14: BID-Before Eb enteric 00 Meals, # coated 60 tab, 0 tablet Refill(s), Pharmacy: [facility] [id number] [facility] Sucralfate Yes 1 gm = 10 Me moria 100 MG/ML 7-13 mL, PO, l Oral 22:14: QID, # [place] Suspension 00 1200 mL, 0 [Carafate] Refill(s), Pharmacy: [facility] [address] [facility] pantoprazol Yes 40 mg = 1 M emoria e 40 mg 7-13 tab, PO, l oral 22:14: BID-Before Eb enteric 00 Meals, # coated 60 tab, 0 tablet Refill(s), Pharmacy: [facility] [id number] [facility] Sucralfate Yes 1 gm = 10 Me moria 100 MG/ML 7-13 mL, PO, l Oral 22:14: QID, # Eb Suspension 00 1200 mL, 0 [Carafate] Refill(s), Pharmacy: [facility] [address] [facility] pantoprazol Yes 40 mg = 1 M emoria e 40 mg 7-13 tab, PO, l oral 22:14: BID-Before Eb enteric 00 Meals, # coated 60 tab, 0 tablet Refill(s), Pharmacy: [facility] [id number] [facility] Sucralfate Yes 1 gm = 10 Me moria 100 MG/ML 7-13 mL, PO, l Oral 22:14: QID, # [place] Suspension 00 1200 mL, 0 [Carafate] Refill(s), Pharmacy: [facility] [address] [facility] pantoprazol Yes 40 mg = 1 M emoria e 40 mg 7-13 tab, PO, l oral 22:14: BID-Before [place] enteric 00 Meals, # coated 60 tab, 0 tablet Refill(s), Pharmacy: [facility] [id number] [facility] Sucralfate Yes 1 gm = 10 Me moria 100 MG/ML 7-13 mL, PO, l Oral 22:14: QID, # [place] Suspension 00 1200 mL, 0 [Carafate] Refill(s), Pharmacy: [facility] [id number] [facility] pantoprazol Yes 40 mg = 1 M emoria e 40 mg 7-13 tab, PO, l oral 22:14: BID-Before [place] enteric 00 Meals, # coated 60 tab, 0 tablet Refill(s), Pharmacy: [facility] [id number] [facility] Sucralfate Yes 1 gm = 10 Me moria 100 MG/ML 7-13 mL, PO, l Oral 22:14: QID, # [place] Suspension 00 1200 mL, 0 [Carafate] Refill(s), Pharmacy: [facility] [address] [facility] pantoprazol Yes 40 mg = 1 M emoria e 40 mg 7-13 tab, PO, l oral 22:14: BID-Before [place] enteric 00 Meals, # coated 60 tab, 0 tablet Refill(s), Pharmacy: [facility] [id number] [facility] Sucralfate Yes 1 gm = 10 Me moria 100 MG/ML 7-13 mL, PO, l Oral 22:14: QID, # [place] Suspension 00 1200 mL, 0 [Carafate] Refill(s), Pharmacy: [facility] [id number] [facility] pantoprazol Yes 40 mg = 1 M emoria e 40 mg 7-13 tab, PO, l oral 22:14: BID-Before [place] enteric 00 Meals, # coated 60 tab, 0 tablet Refill(s), Pharmacy: [facility] [id number] [facility] Sucralfate Yes 1 gm = 10 Me moria 100 MG/ML 7-13 mL, PO, l Oral 22:14: QID, # [place] Suspension 00 1200 mL, 0 [Carafate] Refill(s), Pharmacy: [facility] [id number] [facility] pantoprazol Yes 40 mg = 1 M emoria e 40 mg 7-13 tab, PO, l oral 22:14: BID-Before [place] enteric 00 Meals, # coated 60 tab, 0 tablet Refill(s), Pharmacy: [facility] [id number] [facility] Sucralfate Yes 1 gm = 10 Me moria 100 MG/ML 7-13 mL, PO, l Oral 22:14: QID, # [place] Suspension 00 1200 mL, 0 [Carafate] Refill(s), Pharmacy: [facility] [id number] [facility] pantoprazol Yes 40 mg = 1 M emoria e 40 mg 7-13 tab, PO, l oral 22:14: BID-Before Eb enteric 00 Meals, # coated 60 tab, 0 tablet Refill(s), Pharmacy: [facility] [id number] [facility] Sucralfate Yes 1 gm = 10 Me moria 100 MG/ML 7-13 mL, PO, l Oral 22:14: QID, # [place] Suspension 00 1200 mL, 0 [Carafate] Refill(s), Pharmacy: [facility] [id number] [facility] pantoprazol Yes 40 mg = 1 M emoria e 40 mg 7-13 tab, PO, l oral 22:14: BID-Before Eb enteric 00 Meals, # coated 60 tab, 0 tablet Refill(s), Pharmacy: [facility] [id number] [facility] Protonix No Notes: Memoria 7-13 Tablet l 21:30: should not Eb 00 be chewed or crushed. (Same as: Protonix) Protonix No Notes: Memoria 7-13 Tablet l 21:30: should not Eb 00 be chewed or crushed. (Same as: Protonix) Protonix No Notes: Memoria 7-13 Tablet l 21:30: should not [place] 00 be chewed or crushed. (Same as: Protonix) Protonix No Notes: Memoria 7-13 Tablet l 21:30: should not Eb 00 be chewed or crushed. (Same as: Protonix) Protonix 0 No Notes: Memoria 7-13 Tablet l 21:30: should not Eb 00 be chewed or crushed. (Same as: Protonix) Protonix No Notes: Memoria 7-13 Tablet l 21:30: should not Eb 00 be chewed or crushed. (Same as: Protonix) Protonix 2015-0 No Notes: Memoria 7-13 Tablet l 21:30: should not Eb 00 be chewed or crushed. (Same as: Protonix) Protonix 2015-0 No Notes: Memoria 7-13 Tablet l 21:30: should not Eb 00 be chewed or crushed. (Same as: Protonix) Protonix 2015-0 No Notes: Memoria 7-13 Tablet l 21:30: should not Eb 00 be chewed or crushed. (Same as: Protonix) Protonix 2015-0 No Notes: Memoria 7-13 Tablet l 21:30: should not [place] 00 be chewed or crushed. (Same as: Protonix) Protonix 2015-0 No Notes: Memoria 7-13 Tablet l 21:30: should not Eb 00 be chewed or crushed. (Same as: Protonix) Protonix 2015-0 No Notes: Memoria 7-13 Tablet l 21:30: should not Eb 00 be chewed or crushed. (Same as: Protonix) Protonix 0 No Notes: Memoria 7-13 Tablet l 21:30: should not [place] 00 be chewed or crushed. (Same as: Protonix) Protonix 0 No Notes: Memoria 7-13 Tablet l 21:30: should not Eb 00 be chewed or crushed. (Same as: Protonix) Protonix 0 No Notes: Memoria 7-13 Tablet l 21:30: should not Eb 00 be chewed or crushed. (Same as: Protonix) Protonix 2015-0 No Notes: Memoria 7-13 Tablet l 21:30: should not [place] 00 be chewed or crushed. (Same as: Protonix) Protonix 2015-0 No Notes: Memoria 7-13 Tablet l 21:30: should not [place] 00 be chewed or crushed. (Same as: Protonix) Protonix 2015-0 No Notes: Memoria 7-13 Tablet l 21:30: should not Eb 00 be chewed or crushed. (Same as: Protonix) potassium 2016-0 No Notes: Memori a chloride 7-13 (Same as: l 14:52: K-Dur 20) Eb 00 "Do Not Crush" With food and full glass of water potassium 2016-0 No Notes: Memori a chloride 7-13 (Same as: l 14:52: K-Dur 20) [place] 00 "Do Not Crush" With food and full glass of water potassium 2016-0 No Notes: Memori a chloride 7-13 (Same as: l 14:52: K-Dur 20) [place] 00 "Do Not Crush" With food and full glass of water potassium 2016-0 No Notes: Memori a chloride 7-13 (Same as: l 14:52: K-Dur 20) Eb 00 "Do Not Crush" With food and full glass of water potassium 2016-0 No Notes: Memori a chloride 7-13 (Same as: l 14:52: K-Dur 20) Eb 00 "Do Not Crush" With food and full glass of water potassium 2016-0 No Notes: Memori a chloride 7-13 (Same as: l 14:52: K-Dur 20) [place] 00 "Do Not Crush" With food and full glass of water potassium 2016-0 No Notes: Memori a chloride 7-13 (Same as: l 14:52: K-Dur 20) [place] 00 "Do Not Crush" With food and full glass of water potassium 2016-0 No Notes: Memori a chloride 7-13 (Same as: l 14:52: K-Dur 20) [place] 00 "Do Not Crush" With food and full glass of water potassium 2016-0 No Notes: Memori a chloride 7-13 (Same as: l 14:52: K-Dur 20) [place] 00 "Do Not Crush" With food and full glass of water potassium 2016-0 No Notes: Memori a chloride 7-13 (Same as: l 14:52: K-Dur 20) Eb 00 "Do Not Crush" With food and full glass of water potassium 2016-0 No Notes: Memori a chloride 7-13 (Same as: l 14:52: K-Dur 20) [place] 00 "Do Not Crush" With food and full glass of water potassium 2016-0 No Notes: Memori a chloride 7-13 (Same as: l 14:52: K-Dur 20) Eb 00 "Do Not Crush" With food and full glass of water potassium 2016-0 No Notes: Memori a chloride 7-13 (Same as: l 14:52: K-Dur 20) [place] "Do Not Crush" With food and full glass of water potassium 0 No Notes: Memori a chloride 7-13 (Same as: l 14:52: K-Dur 20) [place] "Do Not Crush" With food and full glass of water potassium 0 No Notes: Memori a chloride 7-13 (Same as: l 14:52: K-Dur 20) Eb "Do Not Crush" With food and full glass of water potassium 0 No Notes: Memori a chloride 7-13 (Same as: l 14:52: K-Dur 20) Eb "Do Not Crush" With food and full glass of water potassium 2015-0 No Notes: Memori a chloride 7-13 (Same as: l 14:52: K-Dur 20) [place] 00 "Do Not Crush" With food and full glass of water potassium 2015-0 No Notes: Memori a chloride 7-13 (Same as: l 14:52: K-Dur 20) [place] "Do Not Crush" With food and full glass of water Tylenol 0 No Notes: Do Memor ia 7-13 not exceed l 03:53: 4 gm/day. (Same as: Tylenol) Tylenol No Notes: Do Memor ia 7-13 not exceed l 03:53: 4 gm/day. Eb 00 (Same as: Tylenol) Tylenol No Notes: Do Memor ia 7-13 not exceed l 03:53: 4 gm/day. Eb 00 (Same as: Tylenol) Tylenol No Notes: Do Memor ia 7-13 not exceed l 03:53: 4 gm/day. [place] 00 (Same as: Tylenol) Tylenol No Notes: Do Memor ia 7-13 not exceed l 03:53: 4 gm/day. Eb 00 (Same as: Tylenol) Tylenol No Notes: Do Memor ia 7-13 not exceed l 03:53: 4 gm/day. Eb 00 (Same as: Tylenol) Tylenol No Notes: Do Memor ia 7-13 not exceed l 03:53: 4 gm/day. (Same as: Tylenol) Tylenol No Notes: Do Memor ia 7-13 not exceed l 03:53: 4 gm/day. (Same as: Tylenol) Tylenol No Notes: Do Memor ia 7-13 not exceed l 03:53: 4 gm/day. (Same as: Tylenol) Tylenol No Notes: Do Memor ia 7-13 not exceed l 03:53: 4 gm/day. (Same as: Tylenol) Tylenol No Notes: Do Memor ia 7-13 not exceed l 03:53: 4 gm/day. (Same as: Tylenol) Tylenol No Notes: Do Memor ia 7-13 not exceed l 03:53: 4 gm/day. (Same as: Tylenol) Tylenol No Notes: Do Memor ia 7-13 not exceed l 03:53: 4 gm/day. (Same as: Tylenol) Tylenol No Notes: Do Memor ia 7-13 not exceed l 03:53: 4 gm/day. (Same as: Tylenol) Tylenol No Notes: Do Memor ia 7-13 not exceed l 03:53: 4 gm/day. (Same as: Tylenol) Tylenol No Notes: Do Memor ia 7-13 not exceed l 03:53: 4 gm/day. (Same as: Tylenol) Tylenol No Notes: Do Memor ia 7-13 not exceed l 03:53: 4 gm/day. (Same as: Tylenol) Tylenol No Notes: Do Memor ia 7-13 not exceed l 03:53: 4 gm/day. (Same as: Tylenol) Nicotine No Notes: Memoria 7-13 (Same as: l 00:42: Habitrol) "Remove old patch before applicatio n of new patch" WASTE: F/P - P Waste Black; E - P Waste Black Nicotine No Notes: Memoria 7-13 (Same as: l 00:42: Habitrol) "Remove old patch before applicatio n of new patch" WASTE: F/P - P Waste Black; E - P Waste Black Nicotine 2016-0 No Notes: Memoria 7- (Same as: l 00:42: Habitrol) "Remove old patch before applicatio n of new patch" WASTE: F/P - P Waste Black; E - P Waste Black Nicotine 2016-0 No Notes: Memoria 7- (Same as: l 00:42: Habitrol) "Remove old patch before applicatio n of new patch" WASTE: F/P - P Waste Black; E - P Waste Black Nicotine 2016-0 No Notes: Memoria 7 (Same as: l 00:42: Habitrol) "Remove old patch before applicatio n of new patch" WASTE: F/P - P Waste Black; E - P Waste Black Nicotine 2016-0 No Notes: Memoria 7- (Same as: l 00:42: Habitrol) "Remove old patch before applicatio n of new patch" WASTE: F/P - P Waste Black; E - P Waste Black Nicotine 2016-0 No Notes: Memoria 7- (Same as: l 00:42: Habitrol) "Remove old patch before applicatio n of new patch" WASTE: F/P - P Waste Black; E - P Waste Black Nicotine 2016-0 No Notes: Memoria 7- (Same as: l 00:42: Habitrol) "Remove old patch before applicatio n of new patch" WASTE: F/P - P Waste Black; E - P Waste Black Nicotine 2016-0 No Notes: Memoria 7- (Same as: l 00:42: Habitrol) "Remove old patch before applicatio n of new patch" WASTE: F/P - P Waste Black; E - P Waste Black Nicotine 2016-0 No Notes: Memoria 7-13 (Same as: l 00:42: Habitrol) "Remove old patch before applicatio n of new patch" WASTE: F/P - P Waste Black; E - P Waste Black Nicotine 2016-0 No Notes: Memoria 7-13 (Same as: l 00:42: Habitrol) "Remove old patch before applicatio n of new patch" WASTE: F/P - P Waste Black; E - P Waste Black Nicotine No Notes: Memoria 7-13 (Same as: l 00:42: Habitrol) "Remove old patch before applicatio n of new patch" WASTE: F/P - P Waste Black; E - P Waste Black Nicotine No Notes: Memoria 7-13 (Same as: l 00:42: Habitrol) "Remove old patch before applicatio n of new patch" WASTE: F/P - P Waste Black; E - P Waste Black Nicotine No Notes: Memoria 7-13 (Same as: l 00:42: Habitrol) "Remove old patch before applicatio n of new patch" WASTE: F/P - P Waste Black; E - P Waste Black Nicotine No Notes: Memoria 7-13 (Same as: l 00:42: Habitrol) "Remove old patch before applicatio n of new patch" WASTE: F/P - P Waste Black; E - P Waste Black Nicotine No Notes: Memoria 7-13 (Same as: l 00:42: Habitrol) "Remove old patch before applicatio n of new patch" WASTE: F/P - P Waste Black; E - P Waste Black Nicotine No Notes: Memoria 7-13 (Same as: l 00:42: Habitrol) "Remove old patch before applicatio n of new patch" WASTE: F/P - P Waste Black; E - P Waste Black Nicotine No Notes: Memoria 7-13 (Same as: l 00:42: Habitrol) "Remove old patch before applicatio n of new patch" WASTE: F/P - P Waste Black; E - P Waste Black Sucralfate No Notes: Memor ia 100 MG/ML 12-22 Enteral l Oral 18:00: feeds may interfere [Carafate] with the absorption of this [...] 7-12 Enteral l Oral 18:00: feeds may [place] Suspension 00 interfere [Carafate] with the absorption [...] 7-12 Enteral l Oral 18:00: feeds may [place] Suspension 00 interfere [Carafate] with the absorption [...] 7-12 Enteral l Oral 18:00: feeds may [place] Suspension 00 interfere [Carafate] with the absorption [...] 7-12 Enteral l Oral 18:00: feeds may [place] Suspension 00 interfere [Carafate] with the absorption of this medication . Shake well. Take 1 hr before or 2 hrs after antacids, dairy pdt, minerals & meals. (Same As: Carafate) Sucralfate 0 No Notes: Memor ia 100 MG/ML 7-12 Enteral l Oral 18:00: feeds may [place] Suspension 00 interfere [Carafate] with the absorption [...] 7-12 Enteral l Oral 18:00: feeds may [place] Suspension 00 interfere [Carafate] with the absorption of this medication . Shake well. Take 1 hr before or 2 hrs after antacids, dairy pdt, minerals & meals. (Same As: Carafate) Sodium 2016-0 No 1,000 mL, Memori a Chloride 7-12 Rate: 20 l 0.154 17:54: ml/hr, [place] MEQ/ML 00 Infuse Injectable over: 50 Solution hr, Route: IV, Dosing Weight 86.364 kg, Total Volume: 1,000, Start date: 12/23/15 12:54:00 CDT, Duration: 2 hr, Stop date: 12/23/15 14:53:00 CDT Sodium 2016-0 No 1,000 mL, Memori a Chloride 7-12 Rate: 20 l 0.154 17:54: ml/hr, [place] MEQ/ML 00 Infuse Injectable over: 50 Solution [...] 7-12 Rate: 20 l 0.154 17:54: ml/hr, [place] MEQ/ML 00 Infuse Injectable over: 50 Solution hr, Route: IV, Dosing Weight 86.364 kg, Total Volume: 1,000, Start date: 12/23/15 12:54:00 CDT, Duration: 2 hr, Stop date: 12/23/15 14:53:00 CDT Sodium 2016-0 No 1,000 mL, Memori a Chloride 7-12 Rate: 20 l 0.154 17:54: ml/hr, [place] MEQ/ML 00 Infuse Injectable over: 50 Solution [...] 7-12 Rate: 20 l 0.154 17:54: ml/hr, [place] MEQ/ML 00 Infuse Injectable over: 50 Solution hr, Route: IV, Dosing Weight 86.364 kg, Total Volume: 1,000, Start date: 12/23/15 12:54:00 CDT, Duration: 2 hr, Stop date: 12/23/15 14:53:00 CDT Sodium 2016-0 No 1,000 mL, Memori a Chloride 7-12 Rate: 20 l 0.154 17:54: ml/hr, [place] MEQ/ML 00 Infuse Injectable over: 50 Solution hr, Route: IV, Dosing Weight 86.364 kg, Total Volume: 1,000, Start date: 12/23/15 12:54:00 CDT, Duration: 2 hr, Stop date: 12/23/15 14:53:00 CDT Sodium 2016-0 No 1,000 mL, Memori a Chloride 7-12 Rate: 20 l 0.154 17:54: ml/hr, [place] MEQ/ML 00 Infuse Injectable over: 50 Solution hr, Route: IV, Dosing Weight 86.364 kg, Total Volume: 1,000, Start date: 12/23/15 12:54:00 CDT, Duration: 2 hr, Stop date: 12/23/15 14:53:00 CDT Sodium 2016-0 No 1,000 mL, Memori a Chloride 7-12 Rate: 20 l 0.154 17:54: ml/hr, [place] MEQ/ML 00 Infuse Injectable over: 50 Solution hr, Route: IV, Dosing Weight 86.364 kg, Total Volume: 1,000, Start date: 12/23/15 12:54:00 CDT, Duration: 2 hr, Stop date: 12/23/15 14:53:00 CDT Sodium 2016-0 No 1,000 mL, Memori a Chloride 7-12 Rate: 20 l 0.154 17:54: ml/hr, [place] MEQ/ML 00 Infuse Injectable over: 50 Solution [...] 7-12 Rate: 20 l 0.154 17:54: ml/hr, [place] MEQ/ML 00 Infuse Injectable over: 50 Solution hr, Route: IV, Dosing Weight 86.364 kg, Total Volume: 1,000, Start date: 12/23/15 12:54:00 CDT, Duration: 2 hr, Stop date: 12/23/15 14:53:00 CDT Sodium 2016-0 No 1,000 mL, Memori a Chloride 7-12 Rate: 20 l 0.154 17:54: ml/hr, [place] MEQ/ML 00 Infuse Injectable over: 50 Solution hr, Route: IV, Dosing Weight 86.364 kg, Total Volume: 1,000, Start date: 12/23/15 12:54:00 CDT, Duration: 2 hr, Stop date: 12/23/15 14:53:00 CDT Sodium 2016-0 No 1,000 mL, Memori a Chloride 7-12 Rate: 20 l 0.154 17:54: ml/hr, [place] MEQ/ML 00 Infuse Injectable over: 50 Solution hr, Route: IV, Dosing Weight 86.364 kg, Total Volume: 1,000, Start date: 12/23/15 12:54:00 CDT, Duration: 2 hr, Stop date: 12/23/15 14:53:00 CDT Protonix + 2016 No Notes: For M emoria sodium 7-12 [...] 2 minutes. (Same as: Protonix) Protonix + 2016 No Notes: For M emoria sodium 7-12 [...] 2 minutes. (Same as: Protonix) Protonix + [id number] No Notes: For M emoria sodium 7-12 [...] 2 minutes. (Same as: Protonix) Protonix + 2016 No Notes: For M emoria sodium 7-12 IV push l chloride 02:16: reconstitu Her pelaez 0.9% 10 ml 00 te with 10 INJ (PF) 20 ml 0.9% mL sodium chloride and push over 2 minutes. (Same as: Protonix) Protonix + 2015-0 No Notes: For M emoria sodium 7-12 IV push l chloride 02:16: reconstitu Her pelaez 0.9% 10 ml 00 te with 10 INJ (PF) 20 ml 0.9% mL sodium chloride and push over 2 minutes. (Same as: Protonix) Protonix + 2016-0 No Notes: For M emoria sodium 7-12 IV push l chloride 02:16: reconstitu Her pelaez 0.9% 10 ml 00 te with 10 INJ (PF) 20 ml 0.9% mL sodium chloride and push over 2 minutes. (Same as: Protonix) Protonix + No Notes: For Ivy emoria sodium 7-12 IV push l chloride 02:16: reconstitu Her pelaez 0.9% 10 ml 00 te with 10 INJ (PF) 20 ml 0.9% mL sodium chloride and push over 2 minutes. (Same as: Protonix) Protonix + No Notes: For Ivy emoria sodium 7-12 IV push l chloride 02:16: reconstitu Her pelaez 0.9% 10 ml 00 te with 10 INJ (PF) 20 ml 0.9% mL sodium chloride and push over 2 minutes. (Same as: Protonix) Protonix + No Notes: For Ivy emoria sodium 7-12 IV push l chloride 02:16: reconstitu Her pelaez 0.9% 10 ml 00 te with 10 INJ (PF) 20 ml 0.9% mL sodium chloride and push over 2 minutes. (Same as: Protonix) Protonix + No Notes: For Ivy emoria sodium 7-12 [...] 7-12 Rate: 10 l 0.154 01:36: ml/hr, [place] MEQ/ML 00 Infuse Injectable over: 10 Solution [...] 7-12 Rate: 10 l 0.154 01:36: ml/hr, [place] MEQ/ML 00 Infuse Injectable over: 10 Solution [...] 7-12 Rate: 10 l 0.154 01:36: ml/hr, [place] MEQ/ML 00 Infuse Injectable over: 10 Solution [...] 7-12 Rate: 10 l 0.154 01:36: ml/hr, [place] MEQ/ML 00 Infuse Injectable over: 10 Solution [...] 7-12 Rate: 10 l 0.154 01:36: ml/hr, [place] MEQ/ML 00 Infuse Injectable over: 10 Solution [...] 7-12 Rate: 10 l 0.154 01:36: ml/hr, [place] MEQ/ML 00 Infuse Injectable over: 10 Solution [...] 7-12 Rate: 10 l 0.154 01:36: ml/hr, [place] MEQ/ML 00 Infuse Injectable over: 10 Solution [...] 7-12 Rate: 10 l 0.154 01:36: ml/hr, [place] MEQ/ML 00 Infuse Injectable over: 10 Solution [...] 7-12 Rate: 10 l 0.154 01:36: ml/hr, [place] MEQ/ML 00 Infuse Injectable over: 10 Solution [...] 7-12 Rate: 10 l 0.154 01:36: ml/hr, [place] MEQ/ML 00 Infuse Injectable over: 10 Solution [...] 7-12 Rate: 10 l 0.154 01:36: ml/hr, [place] MEQ/ML 00 Infuse Injectable over: 10 Solution [...] hr, Stop date: 12/25/15 20:35:00 CDT Sodium 2015-0 No 20 mL, [facility] Chloride 7-12 Rate: 240 l 0.9% IV 20 01:36: ml/hr, Verna nn mL + 00 Infuse pantoprazol over: 5 e 80 mg minutes, Route: IVP, Dosing Weight 86.364 kg, Total Volume: 20, Start date: 12/22/15 20:36:00 CDT, Duration: 1 doses or times, Stop date: 12/22/15 20:40:00 CDT pantoprazol No Notes: Kehinde batsheva e 7-11 Same as: l 14:00: Protonix) [place] pantoprazol No Notes: Kehinde batsheva e 7-11 Same as: l 14:00: Protonix) [place] pantoprazol No Notes: Kehinde batsheva e 7-11 Same as: l 14:00: Protonix) [place] pantoprazol No Notes: Kehinde batsheva e 7-11 Same as: l 14:00: Protonix) [place] pantoprazol No Notes: Kehinde batsheva e 7-11 Same as: l 14:00: Protonix) Eb pantoprazol No Notes: Kehinde batsheva e 7-11 Same as: l 14:00: Protonix) [place] pantoprazol No Notes: Kehinde batsheva e 7-11 Same as: l 14:00: Protonix) [place] pantoprazol No Notes: Kehinde batsheva e 7-11 Same as: l 14:00: Protonix) [place] pantoprazol No Notes: Kehinde batsheva e 7-11 Same as: l 14:00: Protonix) Eb pantoprazol No Notes: Kehinde batsheva e 7-11 Same as: l 14:00: Protonix) Eb 00 pantoprazol 2015-0 No Notes: Kehinde batsheva e 7-11 Same as: l 14:00: Protonix) [place] 00 pantoprazol 0 No Notes: Kehinde batsheva e 7-11 Same as: l 14:00: Protonix) Eb pantoprazol No Notes: Kehinde batsheva e 7-11 Same as: l 14:00: Protonix) [place] pantoprazol 0 No Notes: Kehinde batsheva e 7-11 Same as: l 14:00: Protonix) [place] pantoprazol No Notes: Kehinde batsheva e 7-11 Same as: l 14:00: Protonix) Eb pantoprazol No Notes: Kehinde batsheva e 7-11 Same as: l 14:00: Protonix) [place] pantoprazol No Notes: Kehinde batsheva e 7-11 Same as: l 14:00: Protonix) [place] pantoprazol 0 No Notes: Kehinde batsheva e 7-11 Same as: l 14:00: Protonix) Eb 00 Flagyl No Notes: [facility]oria 7- (Same as: l 02:00: Flagyl) Eb Avoid alcohol. Ciprofloxac No Notes: Do M emoria in 12-21 not l 02:00: refrigerat [place] 00 e Flagyl No Notes: [facility] 12-21 (Same as: l 02:00: Flagyl) Eb Avoid alcohol. Ciprofloxac No Notes: Do M emoria in 12-21 not l 02:00: refrigerat Eb 00 e Flagyl No Notes: [facility] - (Same as: l 02:00: Flagyl) Eb Avoid alcohol. Ciprofloxac No Notes: Do M emoria in 12-21 not l 02:00: refrigerat Eb 00 e Flagyl No Notes: [facility] - (Same as: l 02:00: Flagyl) Eb Avoid alcohol. Ciprofloxac No Notes: Do M emoria in 12-21 not l 02:00: refrigerat [place] 00 e Flagyl No Notes: [facility] 12-21 (Same as: l 02:00: Flagyl) [place] Avoid alcohol. Ciprofloxac No Notes: Do M emoria in 12-21 not l 02:00: refrigerat [place] 00 e Flagyl No Notes: [facility] 12-21 (Same as: l 02:00: Flagyl) Eb Avoid alcohol. Ciprofloxac No Notes: Do M emoria in 12-21 not l 02:00: refrigerat [place] 00 e Flagyl No Notes: [facility] 12-21 (Same as: l 02:00: Flagyl) Eb Avoid alcohol. Ciprofloxac No Notes: Do M emoria in 12-21 not l 02:00: refrigerat Eb 00 e Flagyl No Notes: [facility] 12-21 (Same as: l 02:00: Flagyl) Eb Avoid alcohol. Ciprofloxac No Notes: Do M emoria in 12-21 not l 02:00: refrigerat [place] 00 e Flagyl No Notes: [facility] 12-21 (Same as: l 02:00: Flagyl) Eb Avoid alcohol. Ciprofloxac No Notes: Do M emoria in 12-21 not l 02:00: refrigerat Eb 00 e Flagyl No Notes: [facility] 12-21 (Same as: l 02:00: Flagyl) Eb Avoid alcohol. Ciprofloxac No Notes: Do M emoria in 12-21 not l 02:00: refrigerat [place] 00 e Flagyl No Notes: [facility] 12-21 (Same as: l 02:00: Flagyl) [place] Avoid alcohol. Ciprofloxac 0 No Notes: Do M emoria in 12-21 not l 02:00: refrigerat [place] 00 e Flagyl No Notes: [facility] 12-21 (Same as: l 02:00: Flagyl) [place] 00 Avoid alcohol. Ciprofloxac No Notes: Do M emoria in 12-21 not l 02:00: refrigerat [place] 00 e Flagyl No Notes: [facility] 12-21 (Same as: l 02:00: Flagyl) [place] Avoid alcohol. Ciprofloxac No Notes: Do M emoria in 12-21 not l 02:00: refrigerat Eb 00 e Flagyl No Notes: [facility] 12-21 (Same as: l 02:00: Flagyl) Eb Avoid alcohol. Ciprofloxac No Notes: Do M emoria in 12-21 not l 02:00: refrigerat Eb 00 e Flagyl No Notes: [facility] 12-21 (Same as: l 02:00: Flagyl) Eb Avoid alcohol. Ciprofloxac No Notes: Do M emoria in 12-21 not l 02:00: refrigerat [place] 00 e Flagyl No Notes: [facility] 12-21 (Same as: l 02:00: Flagyl) [place] Avoid alcohol. Ciprofloxac No Notes: Do M emoria in 12-21 not l 02:00: refrigerat Eb 00 e Flagyl No Notes: [facility] 12-21 (Same as: l 02:00: Flagyl) [place] Avoid alcohol. Ciprofloxac No Notes: Do M emoria in 12-21 not l 02:00: refrigerat [place] 00 e Flagyl No Notes: [facility] 12-21 (Same as: l 02:00: Flagyl) [place] Avoid alcohol. Ciprofloxac No Notes: Do M emoria in 12-21 not l 02:00: refrigerat Eb 00 e Phenergan No Notes: Memori a 12-21 (Same as: l 01:22: Phenergan) Eb 00 [...] batsheva 7-11 (Same as: l :22: Zofran) [place] 00 MEDICATION WASTE Product Size: 4 mg Product Wasted: ___ mg Morphine No Notes: [facility]oria 7-11 (Same l 01:22: as:MORPhin [place] 00 e Sulfate) Phenergan No Notes: Memori a 7-11 (Same as: l :22: Phenergan) [place] 00 Sodium No 1,000 mL, [facility] a Chloride 7-11 Rate: 125 l 0.154 01:22: ml/hr, [place] MEQ/ML 00 Infuse Injectable over: 8 Solution hr, Route: IV, Dosing Weight 88.636 kg, Total Volume: 1,000, Start date: 12/21/15 20:22:00 CDT, Duration: 30 day, Stop date: 01/20/16 20:21:00 CDT Saline No Notes: [facility] Flush 0.9% 7-11 (Same as: l :22: BD Eb 00 Posiflush) Ondansetron No Notes: Kehinde batsheva 7-11 (Same as: l :: Zofran) [place] 00 MEDICATION WASTE Product Size: 4 mg Product Wasted: ___ mg Morphine No Notes: [facility] 7-11 (Same l :22: as:MORPhin Eb 00 e Sulfate) Phenergan No Notes: Memori a 7-11 (Same as: l :22: Phenergan) [place] 00 Sodium No 1,000 mL, Memori a [...] batsheva 7-11 (Same as: l :22: Zofran) Eb 00 MEDICATION WASTE Product Size: 4 mg Product Wasted: ___ mg Morphine No Notes: [facility] 7-11 (Same l 01:22: as:MORPhin Eb 00 e Sulfate) Phenergan No Notes: Memori a 7-11 (Same as: l :22: Phenergan) [place] 00 Sodium No 1,000 mL, [facility] a Chloride 7-11 Rate: 125 l 0.154 01:22: ml/hr, [place] MEQ/ML 00 Infuse Injectable over: 8 Solution hr, Route: IV, Dosing Weight 88.636 kg, Total Volume: 1,000, Start date: 12/21/15 20:22:00 CDT, Duration: 30 day, Stop date: 01/20/16 20:21:00 CDT Saline No Notes: [facility] Flush 0.9% 7-11 (Same as: l :22: BD [place] 00 Posiflush) Ondansetron No Notes: Kehinde batsheva 7-11 (Same as: l :: Zofran) Eb 00 MEDICATION WASTE Product Size: 4 mg Product Wasted: ___ mg Morphine No Notes: [facility] 7-11 (Same l :22: as:MORPhin [place] 00 e Sulfate) Phenergan No Notes: Memori a 7-11 (Same as: l :22: Phenergan) [place] 00 Sodium No 1,000 mL, Memori a [...] batsheva 7-11 (Same as: l :22: Zofran) Eb 00 MEDICATION WASTE Product Size: 4 mg Product Wasted: ___ mg Morphine No Notes: [facility]oria 7-11 (Same l 01:22: as:MORPhin [place] 00 e Sulfate) Phenergan No Notes: Memori [...] 0.9% 7-11 (Same as: l :22: BD [place] 00 Posiflush) Ondansetron No Notes: Kehinde batsheva 7-11 (Same as: l :: Zofran) [place] 00 MEDICATION WASTE Product Size: 4 mg Product Wasted: ___ mg Morphine No Notes: [facility] 7-11 (Same l :22: as:MORPhin [place] 00 e Sulfate) Phenergan No Notes: Memori a 7-11 (Same as: l :22: Phenergan) [place] 00 Sodium No 1,000 mL, [facility] a Chloride 7-11 Rate: 125 l 0.154 01:22: ml/hr, [place] MEQ/ML 00 Infuse Injectable over: 8 Solution hr, Route: IV, Dosing Weight 88.636 kg, Total Volume: 1,000, Start date: 12/21/15 20:22:00 CDT, Duration: 30 day, Stop date: 01/20/16 20:21:00 CDT Saline No Notes: [facility] Flush 0.9% 7-11 (Same as: l :22: BD Eb 00 Posiflush) Ondansetron No Notes: Kehinde batsheva 7-11 (Same as: l :22: Zofran) [place] 00 MEDICATION WASTE Product Size: 4 mg Product Wasted: ___ mg Morphine No Notes: [facility] 7-11 (Same l 01:22: as:MORPhin Eb 00 e Sulfate) Phenergan No Notes: Memori a 7-11 (Same as: l :22: Phenergan) Eb 00 Sodium No 1,000 mL, [facility] a Chloride 7-11 Rate: 125 l 0.154 01:22: ml/hr, [place] MEQ/ML 00 Infuse Injectable over: 8 Solution hr, Route: IV, Dosing Weight 88.636 kg, Total Volume: 1,000, Start date: 12/21/15 20:22:00 CDT, Duration: 30 day, Stop date: 01/20/16 20:21:00 CDT Saline No Notes: [facility] Flush 0.9% 7-11 (Same as: l :22: BD [place] 00 Posiflush) Ondansetron No Notes: Kehinde batsheva 7-11 (Same as: l :: Zofran) [place] 00 MEDICATION WASTE Product Size: 4 mg Product Wasted: ___ mg Morphine No Notes: [facility] 7-11 (Same l :22: as:MORPhin [place] 00 e Sulfate) Phenergan No Notes: Memori a 7-11 (Same as: l :22: Phenergan) Eb 00 Sodium No 1,000 mL, [facility] a Chloride 7-11 Rate: 125 l 0.154 01:22: ml/hr, [place] MEQ/ML 00 Infuse Injectable over: 8 Solution hr, Route: IV, Dosing Weight 88.636 kg, Total Volume: 1,000, Start date: 12/21/15 20:22:00 CDT, Duration: 30 day, Stop date: 01/20/16 20:21:00 CDT Saline No Notes: [facility] Flush 0.9% 7-11 (Same as: l :22: BD Eb 00 Posiflush) Ondansetron No Notes: Kehinde batsheva 7-11 (Same as: l :22: Zofran) Eb 00 MEDICATION WASTE Product Size: 4 mg Product Wasted: ___ mg Morphine No Notes: [facility] 7-11 (Same l 01:22: as:MORPhin [place] 00 e Sulfate) Phenergan No Notes: Memori a 7-11 (Same as: l :22: Phenergan) Eb 00 Sodium No 1,000 mL, [facility] a Chloride 7-11 Rate: 125 l 0.154 01:22: ml/hr, [place] MEQ/ML 00 Infuse Injectable over: 8 Solution hr, Route: IV, Dosing Weight 88.636 kg, Total Volume: 1,000, Start date: 12/21/15 20:22:00 CDT, Duration: 30 day, Stop date: 01/20/16 20:21:00 CDT Saline No Notes: [facility] Flush 0.9% 7-11 (Same as: l :22: BD Eb 00 Posiflush) Ondansetron No Notes: Kehinde batsheva 7-11 (Same as: l :: Zofran) [place] 00 MEDICATION WASTE Product Size: 4 mg Product Wasted: ___ mg Morphine No Notes: [facility] 7-11 (Same l :22: as:MORPhin [place] 00 e Sulfate) Phenergan No Notes: Memori a 7-11 (Same as: l :22: Phenergan) [place] 00 Sodium No 1,000 mL, [facility] a Chloride 7-11 Rate: 125 l 0.154 01:22: ml/hr, [place] MEQ/ML 00 Infuse Injectable over: 8 Solution hr, Route: IV, Dosing Weight 88.636 kg, Total Volume: 1,000, Start date: 12/21/15 20:22:00 CDT, Duration: 30 day, Stop date: 01/20/16 20:21:00 CDT Saline No Notes: [facility] Flush 0.9% 7-11 (Same as: l :22: BD [place] 00 Posiflush) Ondansetron No Notes: Kehinde batsheva 7-11 (Same as: l :22: Zofran) [place] 00 MEDICATION WASTE Product Size: 4 mg Product Wasted: ___ mg Morphine No Notes: [facility] 7-11 (Same l 01:22: as:MORPhin Eb 00 e Sulfate) Phenergan No Notes: Memori a 7-11 (Same as: l :22: Phenergan) [place] 00 Sodium No 1,000 mL, Memori a [...] Notes: Kehinde batsheva 7-11 (Same as: l :: Zofran) Eb 00 MEDICATION WASTE Product Size: 4 mg Product Wasted: ___ mg Morphine No Notes: [facility] 7-11 (Same l :22: as:MORPhin Eb 00 e Sulfate) Phenergan No Notes: Memori [...] 0.9% 7-11 (Same as: l :22: BD [place] 00 Posiflush) Ondansetron No Notes: Kehinde batsheva 7-11 (Same as: l :22: Zofran) [place] 00 MEDICATION WASTE Product Size: 4 mg Product Wasted: ___ mg Morphine No Notes: [facility] 7-11 (Same l 01:22: as:MORPhin Eb 00 e Sulfate) Phenergan No Notes: Memori a 7-11 (Same as: l :22: Phenergan) [place] 00 Sodium No 1,000 mL, [facility] a Chloride 7-11 Rate: 125 l 0.154 01:22: ml/hr, [place] MEQ/ML 00 Infuse Injectable over: 8 Solution hr, Route: IV, Dosing Weight 88.636 kg, Total Volume: 1,000, Start date: 12/21/15 20:22:00 CDT, Duration: 30 day, Stop date: 01/20/16 20:21:00 CDT Saline No Notes: [facility] Flush 0.9% 7-11 (Same as: l :22: BD [place] 00 Posiflush) Ondansetron No Notes: Kehinde batsheva 7-11 (Same as: l :: Zofran) [place] 00 MEDICATION WASTE Product Size: 4 mg Product Wasted: ___ mg Morphine No Notes: [facility] 7-11 (Same l :22: as:MORPhin [place] 00 e Sulfate) Phenergan No Notes: Memori a 7-11 (Same as: l :22: Phenergan) Eb 00 Sodium No 1,000 mL, Mem[facility] a Chloride 7-11 Rate: 125 l 0.154 01:22: ml/hr, [place] MEQ/ML 00 Infuse Injectable over: 8 Solution hr, Route: IV, Dosing Weight 88.636 kg, Total Volume: 1,000, Start date: 12/21/15 20:22:00 CDT, Duration: 30 day, Stop date: 01/20/16 20:21:00 CDT Saline No Notes: [facility] Flush 0.9% 7-11 (Same as: l :22: BD [place] 00 Posiflush) Ondansetron No Notes: Kehinde batsheva 7-11 (Same as: l :22: Zofran) [place] 00 MEDICATION WASTE Product Size: 4 mg Product Wasted: ___ mg Morphine No Notes: [facility] 7-11 (Same l 01:22: as:MORPhin [place] 00 e Sulfate) Phenergan No Notes: Memori [...] BD Eb 00 Posiflush) Ondansetron No Notes: Kehnide batsheva 7-11 (Same as: l :: Zofran) Eb 00 MEDICATION WASTE Product Size: 4 mg Product Wasted: ___ mg Morphine No Notes: [facility] 7-11 (Same l :22: as:MORPhin Eb 00 e Sulfate) Phenergan No Notes: Memori a 7-11 (Same as: l :22: Phenergan) [place] 00 Sodium No 1,000 mL, [facility] a Chloride 7-11 Rate: 125 l 0.154 01:22: ml/hr, [place] MEQ/ML 00 Infuse Injectable over: 8 Solution hr, Route: IV, Dosing Weight 88.636 kg, Total Volume: 1,000, Start date: 12/21/15 20:22:00 CDT, Duration: 30 day, Stop date: 01/20/16 20:21:00 CDT Saline No Notes: [facility] Flush 0.9% 7-11 (Same as: l 01:22: BD [place] 00 Posiflush) Ondansetron No Notes: Kehinde batsheva 7-11 (Same as: l 01:22: Zofran) [place] 00 MEDICATION WASTE Product Size: 4 mg Product Wasted: ___ mg Morphine No Notes: [facility] 7-11 (Same l 01:22: as:MORPhin Eb 00 e Sulfate) Phenergan No Notes: Memori a 7-11 (Same as: l 01:22: Phenergan) [place] 00 Sodium No 1,000 mL, [facility] a Chloride 7-11 Rate: 125 l 0.154 01:22: ml/hr, [place] MEQ/ML 00 Infuse Injectable over: 8 Solution hr, Route: IV, Dosing Weight 88.636 kg, Total Volume: 1,000, Start date: 12/21/15 20:22:00 CDT, Duration: 30 day, Stop date: 01/20/16 20:21:00 CDT Saline No Notes: [facility] Flush 0.9% 7-11 (Same as: l 01:22: BD [place] 00 Posiflush) Ondansetron No Notes: Kehinde batsheva 7-11 (Same as: l 01:22: Zofran) Eb 00 MEDICATION WASTE Product Size: 4 mg Product Wasted: ___ mg Morphine No Notes: [facility] 7-11 (Same l 01:22: as:MORPhin [place] 00 e Sulfate) Morphine No Notes: [facility] 7-10 (Same l 22:05: as:MORPhin [place] 00 e Sulfate) Morphine No Notes: [facility] 7-10 (Same l 22:05: as:MORPhin Eb 00 e Sulfate) Morphine No Notes: [facility] 7-10 (Same l 22:05: as:MORPhin [place] 00 e Sulfate) Morphine No Notes: [facility] 7-10 (Same l 22:05: as:MORPhin [place] 00 e Sulfate) Morphine No Notes: [facility] 7-10 (Same l 22:05: as:MORPhin [place] 00 e Sulfate) Morphine No Notes: [facility] 7-10 (Same l 22:05: as:MORPhin [place] 00 e Sulfate) Morphine No Notes: [facility] 7-10 (Same l 22:05: as:MORPhin Eb 00 e Sulfate) Morphine No Notes: [facility] 7-10 (Same l 22:05: as:MORPhin [place] 00 e Sulfate) Morphine No Notes: [facility] 7-10 (Same l 22:05: as:MORPhin [place] 00 e Sulfate) Morphine No Notes: [facility] 7-10 (Same l 22:05: as:MORPhin Eb 00 e Sulfate) Morphine No Notes: [facility] 7-10 (Same l 22:05: as:MORPhin [place] 00 e Sulfate) Morphine No Notes: [facility] 7-10 (Same l 22:05: as:MORPhin [place] 00 e Sulfate) Morphine No Notes: [facility] 7-10 (Same l 22:05: as:MORPhin Eb 00 e Sulfate) Morphine No Notes: [facility] 7-10 (Same l 22:05: as:MORPhin Eb 00 e Sulfate) Morphine No Notes: [facility] 7-10 (Same l 22:05: as:MORPhin Eb 00 e Sulfate) Morphine No Notes: [facility] 7-10 (Same l 22:05: as:MORPhin [place] 00 e Sulfate) Morphine No Notes: [facility] 7-10 (Same l 22:05: as:MORPhin Eb 00 e Sulfate) Morphine No Notes: [facility] 7-10 (Same l 22:05: as:MORPhin Eb 00 e Sulfate) Morphine No Notes: [facility] 7-10 (Same l 21:04: as:MORPhin Eb 00 e Sulfate) Promethazin 2015- No Notes: Kehinde batsheva e 7-10 (Same as: l 21:04: Phenergan) Eb 00 Saline 2015- No Notes: [facility] Flush 0.9% 7-10 (Same as: l 21:04: BD Eb 00 Posiflush) Sodium 0 No 1,000 mL, Memori a Chloride 7-10 2,000 l 0.154 21:04: ml/hr, [place] MEQ/ML 00 Infuse Injectable Over: 30 Solution minutes, Route: IV, 1,000, Drug form: INJ, ONCE, Priority: STAT, Dosing Weight 88.636 kg, Start date: 12/21/15 16:04:00 CDT, Duration: 1 doses or times, Stop date: 12/21/15 16:04:00 CDT Morphine No Notes: [facility] 7-10 (Same l 21:04: as:MORPhin Eb 00 e Sulfate) Promethazin No Notes: Kehinde batsheva e 7-10 (Same as: l 21:04: Phenergan) [place] 00 Saline No Notes: [facility] Flush 0.9% [...] times, Stop date: 12/21/15 16:04:00 CDT Morphine 0 No Notes: [facility] 7-10 (Same l 21:04: as:MORPhin [place] 00 e Sulfate) Promethazin No Notes: Kehinde batsheva e 7-10 (Same as: l 21:04: Phenergan) [place] 00 Saline No Notes: [facility] Flush 0.9% 7-10 (Same as: l 21:04: BD [place] 00 Posiflush) Sodium No 1,000 mL, Memori [...] e 7-10 (Same as: l 21:04: Phenergan) [place] 00 Saline No Notes: [facility] Flush 0.9% [...] e 7-10 (Same as: l 21:04: Phenergan) [place] 00 Saline No Notes: [facility] Flush 0.9% [...] Notes: [facility] 7-10 (Same l 21:04: as:MORPhin [place] 00 e Sulfate) Promethazin No Notes: Kehinde batsheva e 7-10 (Same as: l 21:04: Phenergan) [place] 00 Saline No Notes: [facility] Flush 0.9% 7-10 (Same as: l 21:04: BD Eb 00 Posiflush) Sodium No 1,000 mL, Mem[facility] a Chloride 7-10 2,000 l 0.154 21:04: ml/hr, [place] MEQ/ML 00 Infuse Injectable Over: 30 Solution minutes, Route: IV, 1,000, Drug form: INJ, ONCE, Priority: STAT, Dosing Weight 88.636 kg, Start date: 12/21/15 16:04:00 CDT, Duration: 1 doses or times, Stop date: 12/21/15 16:04:00 CDT Morphine No Notes: [facility] 7-10 (Same l 21:04: as:MORPhin Eb 00 e Sulfate) Promethazin No Notes: Kehinde batsheva e 7-10 (Same as: l 21:04: Phenergan) Eb Saline No Notes: [facility] Flush 0.9% 7-10 (Same as: l 21:04: BD [place] 00 Posiflush) Sodium No 1,000 mL, [facility] a Chloride 7-10 2,000 l 0.154 21:04: ml/hr, [place] MEQ/ML 00 Infuse Injectable Over: 30 Solution [...] 0.9% 7-10 (Same as: l 21:04: BD [place] 00 Posiflush) Sodium No 1,000 mL, Memori [...] e 7-10 (Same as: l 21:04: Phenergan) [place] 00 Saline No Notes: [facility] Flush 0.9% [...] 0.9% 7-10 (Same as: l 21:04: BD [place] 00 Posiflush) Sodium No 1,000 mL, [facility] a Chloride 7-10 2,000 l 0.154 21:04: ml/hr, [place] MEQ/ML 00 Infuse Injectable Over: 30 Solution minutes, Route: IV, 1,000, Drug form: INJ, ONCE, Priority: STAT, Dosing Weight 88.636 kg, Start date: 12/21/15 16:04:00 CDT, Duration: 1 doses or times, Stop date: 12/21/15 16:04:00 CDT Morphine No Notes: [facility] 7-10 (Same l 21:04: as:MORPhin [place] 00 e Sulfate) Promethazin No Notes: Kehinde batsheva e 7-10 (Same as: l 21:04: Phenergan) Eb 00 Saline No Notes: [facility] Flush 0.9% 7-10 (Same as: l 21:04: BD [place] 00 Posiflush) Sodium No 1,000 mL, Memori [...] 0.9% 7-10 (Same as: l 21:04: BD [place] 00 Posiflush) Sodium 0 No 1,000 mL, [facility] a Chloride 7-10 2,000 l 0.154 21:04: ml/hr, Eb MEQ/ML 00 Infuse Injectable Over: 30 Solution minutes, Route: IV, 1,000, Drug form: INJ, ONCE, Priority: STAT, Dosing Weight 88.636 kg, Start date: 12/21/15 16:04:00 CDT, Duration: 1 doses or times, Stop date: 12/21/15 16:04:00 CDT Morphine 0 No Notes: [facility] 7-10 (Same l 21:04: as:MORPhin Eb 00 e Sulfate) Promethazin No Notes: Kehinde batsheva e 7-10 (Same as: l 21:04: Phenergan) [place] 00 Saline No Notes: [facility] Flush 0.9% 7-10 (Same as: l 21:04: BD Eb 00 Posiflush) Sodium No 1,000 mL, [facility] a Chloride 7-10 2,000 l 0.154 21:04: ml/hr, [place] MEQ/ML 00 Infuse Injectable Over: 30 Solution minutes, Route: IV, 1,000, Drug form: INJ, ONCE, Priority: STAT, Dosing Weight 88.636 kg, Start date: 12/21/15 16:04:00 CDT, Duration: 1 doses or times, Stop date: 12/21/15 16:04:00 CDT Morphine 0 No Notes: [facility] 7-10 (Same l 21:04: as:MORPhin Eb 00 e Sulfate) Promethazin No Notes: Kehinde batsheva e 7-10 (Same as: l 21:04: Phenergan) Eb 00 Saline No Notes: [facility] Flush 0.9% 7-10 (Same as: l 21:04: BD [place] 00 Posiflush) Sodium No 1,000 mL, Memori [...] e 7-10 (Same as: l 21:04: Phenergan) [place] 00 Saline No Notes: [facility] Flush 0.9% 7-10 (Same as: l 21:04: BD Eb 00 Posiflush) Sodium No 1,000 mL, [facility] a Chloride 7-10 2,000 l 0.154 21:04: ml/hr, [place] MEQ/ML 00 Infuse Injectable Over: 30 Solution minutes, Route: IV, 1,000, Drug form: INJ, ONCE, Priority: STAT, Dosing Weight 88.636 kg, Start date: 12/21/15 16:04:00 CDT, Duration: 1 doses or times, Stop date: 12/21/15 16:04:00 CDT Morphine No Notes: [facility] 7-10 (Same l 21:04: as:MORPhin [place] 00 e Sulfate) Promethazin No Notes: Kehinde batsheva e 7-10 (Same as: l 21:04: Phenergan) [place] 00 Saline No Notes: [facility] Flush 0.9% 7-10 (Same as: l 21:04: BD Eb 00 Posiflush) Sodium No 1,000 mL, [facility] a Chloride 7-10 2,000 l 0.154 21:04: ml/hr, [place] MEQ/ML 00 Infuse Injectable Over: 30 Solution minutes, Route: IV, 1,000, Drug form: INJ, ONCE, Priority: STAT, Dosing Weight 88.636 kg, Start date: 12/21/15 16:04:00 CDT, Duration: 1 doses or times, Stop date: 12/21/15 16:04:00 CDT Morphine No Notes: [facility] 7-10 (Same l 21:04: as:MORPhin Eb 00 e Sulfate) Promethazin No Notes: Kehinde batsheva e 7-10 (Same as: l 21:04: Phenergan) Saline 2016-0 No Notes: [facility] Flush 0.9% 7-10 (Same as: l 21:04: BD Eb Posiflush) Sodium 2016-0 No 1,000 mL, [facility] a Chloride 7-10 2,000 l 0.154 21:04: ml/hr, Eb MEQ/ML 00 Infuse Injectable Over: 30 Solution minutes, Route: IV, 1,000, Drug form: INJ, ONCE, Priority: STAT, Dosing Weight 88.636 kg, Start date: 12/21/15 16:04:00 CDT, Duration: 1 doses or times, Stop date: 12/21/15 16:04:00 CDT Ondansetron 2016-0 Yes 4 mg = 1 Me moria 4 MG Oral 7-10 tab, PO, l Tablet 05:00: BID, X 5 [place] [Zofran] 00 day, # 10 tab, 0 Refill(s) Ondansetron 2016-0 Yes 4 mg = 1 Me moria 4 MG Oral 7-10 tab, PO, l Tablet 05:00: BID, X 5 [place] [Zofran] 00 day, # 10 tab, 0 Refill(s) Ondansetron 2016-0 Yes 4 mg = 1 Me moria 4 MG Oral 7-10 tab, PO, l Tablet 05:00: BID, X 5 Eb [Zofran] 00 day, # 10 tab, 0 Refill(s) Ondansetron 2016-0 Yes 4 mg = 1 Me moria 4 MG Oral 7-10 tab, PO, l Tablet 05:00: BID, X 5 [place] [Zofran] 00 day, # 10 tab, 0 Refill(s) Ondansetron 2016-0 Yes 4 mg = 1 Me moria 4 MG Oral 7-10 tab, PO, l Tablet 05:00: BID, X 5 Eb [Zofran] 00 day, # 10 tab, 0 Refill(s) Ondansetron 2016-0 Yes 4 mg = 1 Me moria 4 MG Oral 7-10 tab, PO, l Tablet 05:00: BID, X 5 Eb [Zofran] 00 day, # 10 tab, 0 Refill(s) Ondansetron 2016-0 Yes 4 mg = 1 Me moria 4 MG Oral 7-10 tab, PO, l Tablet 05:00: BID, X 5 [place] [Zofran] 00 day, # 10 tab, 0 Refill(s) Ondansetron 2016-0 Yes 4 mg = 1 Me moria 4 MG Oral 7-10 tab, PO, l Tablet 05:00: BID, X 5 Eb [Zofran] 00 day, # 10 tab, 0 Refill(s) Ondansetron 2016-0 Yes 4 mg = 1 Me moria 4 MG Oral 7-10 tab, PO, l Tablet 05:00: BID, X 5 [place] [Zofran] 00 day, # 10 tab, 0 Refill(s) Ondansetron 2016-0 Yes 4 mg = 1 Me moria 4 MG Oral 7-10 tab, PO, l Tablet 05:00: BID, X 5 [place] [Zofran] 00 day, # 10 tab, 0 Refill(s) Ondansetron 2016-0 Yes 4 mg = 1 Me moria 4 MG Oral 7-10 tab, PO, l Tablet 05:00: BID, X 5 Eb [Zofran] 00 day, # 10 tab, 0 Refill(s) Ondansetron 2016-0 Yes 4 mg = 1 Me moria 4 MG Oral 7-10 tab, PO, l Tablet 05:00: BID, X 5 Eb [Zofran] 00 day, # 10 tab, 0 Refill(s) Ondansetron 2016-0 Yes 4 mg = 1 Me moria 4 MG Oral 7-10 tab, PO, l Tablet 05:00: BID, X 5 [place] [Zofran] 00 day, # 10 tab, 0 Refill(s) Ondansetron 2016-0 Yes 4 mg = 1 Me moria 4 MG Oral 7-10 tab, PO, l Tablet 05:00: BID, X 5 [place] [Zofran] 00 day, # 10 tab, 0 Refill(s) Ondansetron 2016-0 Yes 4 mg = 1 Me moria 4 MG Oral 7-10 tab, PO, l Tablet 05:00: BID, X 5 [place] [Zofran] 00 day, # 10 tab, 0 Refill(s) Ondansetron 2016-0 Yes 4 mg = 1 Me moria [...] PO, l Tablet 05:00: BID, X 5 [place] [Zofran] 00 day, # 10 tab, 0 [...] Memoria 7-10 (Same as: l 03:35: Bentyl) [place] 00 Reglan No Notes: Memoria 7-10 (Same as: l 03:35: Reglan) Eb 00 Bentyl No Notes: Memoria 7-10 (Same as: l 03:35: Bentyl) [place] 00 Reglan 2016-0 No Notes: Memoria 7-10 (Same as: l 03:35: Reglan) [place] Bentyl No Notes: Memoria 7-10 (Same as: l 03:35: Bentyl) [place] Reglan No Notes: Memoria 7-10 (Same as: l 03:35: Reglan) Eb Bentyl No Notes: Memoria 7-10 (Same as: l 03:35: Bentyl) [place] Reglan No Notes: Memoria 7-10 (Same as: l 03:35: Reglan) Eb [place] No Notes: Memoria 7-10 (Same as: l 03:35: Bentyl) Eb Reglan No Notes: Memoria 7-10 (Same as: l 03:35: Reglan) [place] Bentyl No Notes: Memoria 7-10 (Same as: l 03:35: Bentyl) [place] Reglan No Notes: Memoria 7-10 (Same as: l 03:35: Reglan) Eb [place] No Notes: Memoria 7-10 (Same as: l 03:35: Bentyl) Eb Reglan No Notes: Memoria 7-10 (Same as: l 03:35: Reglan) [place] Bentyl No Notes: Memoria 7-10 (Same as: l 03:35: Bentyl) Eb Reglan No Notes: Memoria 7-10 (Same as: l 03:35: Reglan) [place] Bentyl No Notes: Memoria 7-10 (Same as: l 03:35: Bentyl) Eb Reglan No Notes: Memoria 7-10 (Same as: l 03:35: Reglan) [place] Bentyl No Notes: Memoria 7-10 (Same as: l 03:35: Bentyl) [place] Reglan No Notes: Memoria 7-10 (Same as: l 03:35: Reglan) [place] Bentyl No Notes: Memoria 7-10 (Same as: l 03:35: Bentyl) [place] Reglan No Notes: Memoria 7-10 (Same as: [...] Memoria 7-10 (Same as: l 03:35: Reglan) [place] 00 Bentyl No Notes: Memoria 7-10 (Same as: l 03:35: Bentyl) [place] 00 Reglan No Notes: Memoria 7-10 (Same as: l 03:35: Reglan) [place] 00 Bentyl No Notes: Memoria 7-10 (Same as: l 03:35: Bentyl) [place] 00 Reglan No Notes: Memoria 7-10 (Same as: l 03:35: Reglan) [place] 00 Bentyl No Notes: Memoria 7-10 (Same as: l 03:35: Bentyl) [place] 00 Reglan No Notes: [facility]oria 7-10 (Same as: l 03:35: Reglan) Eb [place] No Notes: [facility]oria 7-10 (Same as: l 03:35: Bentyl) [place] Reglan No Notes: [facility]oria 7-10 (Same as: l 03:35: Reglan) [place] GI cocktail No Notes: Kehinde batsheva 7-10 G.I. l 02:27: Cocktail = [place] 00 antacid with simethicon e 22.5 mL [...] batsheva 7-10 G.I. l 02:27: Cocktail = [place] 00 antacid with simethicon e 22.5 mL - lidocaine viscous 7.5 mL GI cocktail No Notes: Kehinde batsheva 7-10 G.I. l 02:27: Cocktail = [place] 00 antacid with simethicon e 22.5 mL - lidocaine viscous 7.5 mL GI cocktail No Notes: Kehinde batsheva 7-10 G.I. l 02:27: Cocktail = [place] 00 antacid with simethicon e 22.5 mL - lidocaine viscous 7.5 mL GI cocktail No Notes: Kehinde batsheva 7-10 G.I. l 02:27: Cocktail = [place] 00 antacid with simethicon e 22.5 mL - lidocaine viscous 7.5 mL GI cocktail No Notes: Kehinde batsheva 7-10 G.I. l 02:27: Cocktail = [place] 00 antacid with simethicon e 22.5 mL [...] batsheva 7-10 G.I. l 02:27: Cocktail = [place] 00 antacid with simethicon e 22.5 mL [...] batsheva 7-10 G.I. l 02:27: Cocktail = [place] 00 antacid with simethicon e 22.5 mL - lidocaine viscous 7.5 mL GI cocktail No Notes: Kehinde batsheva 7-10 G.I. l 02:27: Cocktail = [place] 00 antacid with simethicon e 22.5 mL - lidocaine viscous 7.5 mL GI cocktail No Notes: Kehinde batsheva 7-10 G.I. l 02:27: Cocktail = [place] 00 antacid with simethicon e 22.5 mL - lidocaine viscous 7.5 mL Morphine 2016-0 No 4 mg, Memoria 7-10 Route: l 00:36: IVP, Drug Eb 00 form: INJ, ONCE, Dosing Weight 87.727, kg, Priority: STAT, Start date: 12/20/15 19:36:00 CDT, Stop date: 12/20/15 19:36:00 CDT Morphine 2016-0 No 4 mg, Memoria 7-10 Route: l 00:36: IVP, Drug [place] 00 form: INJ, ONCE, Dosing Weight 87.727, kg, Priority: STAT, Start date: 12/20/15 19:36:00 CDT, Stop date: 12/20/15 19:36:00 CDT Morphine 2016-0 No 4 mg, Memoria 7-10 Route: l 00:36: IVP, Drug Eb 00 form: INJ, ONCE, Dosing Weight 87.727, kg, Priority: STAT, Start date: 12/20/15 19:36:00 CDT, Stop date: 12/20/15 19:36:00 CDT Morphine 2016-0 No 4 mg, Memoria 7-10 Route: l 00:36: IVP, Drug [place] 00 form: INJ, ONCE, Dosing Weight 87.727, kg, Priority: STAT, Start date: 12/20/15 19:36:00 CDT, Stop date: 12/20/15 19:36:00 CDT Morphine 2016-0 No 4 mg, Memoria 7-10 Route: l 00:36: IVP, Drug [place] 00 form: INJ, ONCE, Dosing Weight 87.727, kg, Priority: STAT, Start date: 12/20/15 19:36:00 CDT, Stop date: 12/20/15 19:36:00 CDT Morphine 2016-0 No 4 mg, Memoria 7-10 Route: l 00:36: IVP, Drug Eb 00 form: INJ, ONCE, Dosing Weight 87.727, kg, Priority: STAT, Start date: 12/20/15 19:36:00 CDT, Stop date: 12/20/15 19:36:00 CDT Morphine 2016-0 No 4 mg, Memoria 7-10 Route: l 00:36: IVP, Drug Eb 00 form: INJ, ONCE, Dosing Weight 87.727, kg, Priority: STAT, Start date: 12/20/15 19:36:00 CDT, Stop date: 12/20/15 19:36:00 CDT Morphine 2016-0 No 4 mg, Memoria 7-10 Route: l 00:36: IVP, Drug [place] 00 form: INJ, ONCE, Dosing Weight 87.727, kg, Priority: STAT, Start date: 12/20/15 19:36:00 CDT, Stop date: 12/20/15 19:36:00 CDT Morphine 2016-0 No 4 mg, Memoria 7-10 Route: l 00:36: IVP, Drug [place] 00 form: INJ, ONCE, Dosing Weight 87.727, kg, Priority: STAT, Start date: 12/20/15 19:36:00 CDT, Stop date: 12/20/15 19:36:00 CDT Morphine 2016-0 No 4 mg, Memoria 7-10 Route: l 00:36: IVP, Drug Eb 00 form: INJ, ONCE, Dosing Weight 87.727, kg, Priority: STAT, Start date: 12/20/15 19:36:00 CDT, Stop date: 12/20/15 19:36:00 CDT Morphine 2016-0 No 4 mg, Memoria 7-10 Route: l 00:36: IVP, Drug [place] 00 form: INJ, ONCE, Dosing Weight 87.727, kg, Priority: STAT, Start date: 12/20/15 19:36:00 CDT, Stop date: 12/20/15 19:36:00 CDT Morphine 2016-0 No 4 mg, Memoria 7-10 Route: l 00:36: IVP, Drug Eb 00 form: INJ, ONCE, Dosing Weight 87.727, kg, Priority: STAT, Start date: 12/20/15 19:36:00 CDT, Stop date: 12/20/15 19:36:00 CDT Morphine 2016-0 No 4 mg, Memoria 7-10 Route: l 00:36: IVP, Drug [place] 00 form: INJ, ONCE, Dosing Weight 87.727, kg, Priority: STAT, Start date: 12/20/15 19:36:00 CDT, Stop date: 12/20/15 19:36:00 CDT Morphine 2016-0 No 4 mg, Memoria 7-10 Route: l 00:36: IVP, Drug [place] 00 form: INJ, ONCE, Dosing Weight 87.727, kg, Priority: STAT, Start date: 12/20/15 19:36:00 CDT, Stop date: 12/20/15 19:36:00 CDT Morphine 2016-0 No 4 mg, Memoria 7-10 Route: l 00:36: IVP, Drug [place] 00 form: INJ, ONCE, Dosing Weight 87.727, kg, Priority: STAT, Start date: 12/20/15 19:36:00 CDT, Stop date: 12/20/15 19:36:00 CDT Morphine 2016-0 No 4 mg, Memoria 7-10 Route: l 00:36: IVP, Drug Eb 00 form: INJ, ONCE, Dosing Weight 87.727, kg, Priority: STAT, Start date: 12/20/15 19:36:00 CDT, Stop date: 12/20/15 19:36:00 CDT Morphine 2016-0 No 4 mg, Memoria 7-10 Route: l 00:36: IVP, Drug Eb 00 form: INJ, ONCE, Dosing Weight 87.727, kg, Priority: STAT, Start date: 12/20/15 19:36:00 CDT, Stop date: 12/20/15 19:36:00 CDT Morphine 2016-0 No 4 mg, Memoria 7-10 Route: l 00:36: IVP, Drug form: INJ, ONCE, Dosing Weight 87.727, kg, Priority: STAT, Start date: 12/20/15 19:36:00 CDT, Stop date: 12/20/15 19:36:00 CDT Ondansetron No Notes: Kehinde batsheva 12-19 (Same as: l 23:37: Zofran) Eb 00 MEDICATION WASTE Product Size: 4 mg Product Wasted: ___ mg Sodium No 1,000 mL, Memori a Chloride 12-19 2,000 l 0.154 23:37: ml/hr, [place] MEQ/ML 00 Infuse Injectable Over: 30 Solution minutes, Route: IV, 1,000, Drug form: INJ, ONCE, Priority: STAT, Dosing Weight 87.727 kg, Start date: 12/20/15 18:37:00 CDT, Duration: 1 doses or times, Stop date: 12/20/15 18:37:00 CDT Saline 0 No Notes: Memoria Flush 0.9% 12-19 (Same as: l 23:37: BD [place] Posiflush) Ondansetron 0 No Notes: Kehinde batsheva 12-19 (Same as: l 23:37: Zofran) Eb 00 MEDICATION WASTE Product Size: 4 mg Product Wasted: ___ mg Sodium No 1,000 mL, Memori a Chloride 12-19 2,000 l 0.154 23:37: ml/hr, Eb MEQ/ML 00 Infuse Injectable Over: 30 Solution minutes, Route: IV, 1,000, Drug form: INJ, ONCE, Priority: STAT, Dosing Weight 87.727 kg, Start date: 12/20/15 18:37:00 CDT, Duration: 1 doses or times, Stop date: 12/20/15 18:37:00 CDT Saline 2016-0 No Notes: [facility] Flush 0.9% 7-09 (Same as: l 23:37: BD [place] 00 Posiflush) Ondansetron No Notes: Kehinde batsheva 12-19 (Same as: l 23:37: Zofran) [place] 00 MEDICATION WASTE Product Size: 4 mg Product Wasted: ___ mg Sodium 2016 No 1,000 mL, Memori a Chloride 7-09 2,000 l 0.154 23:37: ml/hr, [place] MEQ/ML 00 Infuse Injectable Over: 30 Solution minutes, Route: IV, 1,000, Drug form: INJ, ONCE, Priority: STAT, Dosing Weight 87.727 kg, Start date: 12/20/15 18:37:00 CDT, Duration: 1 doses or times, Stop date: 12/20/15 18:37:00 CDT Saline No Notes: [facility] Flush 0.9% 7- (Same as: l 23:37: BD Eb 00 Posiflush) Ondansetron No Notes: Kehinde batsheva 12-19 (Same as: l 23:37: Zofran) Eb 00 MEDICATION WASTE Product Size: 4 mg Product Wasted: ___ mg Sodium No 1,000 mL, Memori a Chloride 7-09 2,000 l 0.154 23:37: ml/hr, [place] MEQ/ML 00 Infuse Injectable Over: 30 Solution minutes, Route: IV, 1,000, Drug form: INJ, ONCE, Priority: STAT, Dosing Weight 87.727 kg, Start date: 12/20/15 18:37:00 CDT, Duration: 1 doses or times, Stop date: 12/20/15 18:37:00 CDT Saline No Notes: [facility] Flush 0.9% 7-09 (Same as: l 23:37: BD Eb 00 Posiflush) Ondansetron No Notes: Kehinde batsheva 12-19 (Same as: l 23:37: Zofran) Eb 00 MEDICATION WASTE Product Size: 4 mg Product Wasted: ___ mg Sodium No 1,000 mL, Memori a Chloride 7-09 2,000 l 0.154 23:37: ml/hr, Eb MEQ/ML 00 Infuse Injectable Over: 30 Solution minutes, Route: IV, 1,000, Drug form: INJ, ONCE, Priority: STAT, Dosing Weight 87.727 kg, Start date: 12/20/15 18:37:00 CDT, Duration: 1 doses or times, Stop date: 12/20/15 18:37:00 CDT Saline No Notes: [facility] Flush 0.9% 7- (Same as: l 23:37: BD Eb 00 Posiflush) Ondansetron No Notes: Kehinde batsheva 7- (Same as: l 23:37: Zofran) Eb 00 MEDICATION WASTE Product Size: 4 mg Product Wasted: ___ mg Sodium No 1,000 mL, Memori a Chloride 7-09 2,000 l 0.154 23:37: ml/hr, Eb MEQ/ML 00 Infuse Injectable Over: 30 Solution minutes, Route: IV, 1,000, Drug form: INJ, ONCE, Priority: STAT, Dosing Weight 87.727 kg, Start date: 12/20/15 18:37:00 CDT, Duration: 1 doses or times, Stop date: 12/20/15 18:37:00 CDT Saline No Notes: [facility] Flush 0.9% - (Same as: l 23:37: BD Eb 00 Posiflush) Ondansetron No Notes: Kehinde batsheva 12-19 (Same as: l 23:37: Zofran) Eb 00 MEDICATION WASTE Product Size: 4 mg Product Wasted: ___ mg Sodium No 1,000 mL, Memori a Chloride 7-09 2,000 l 0.154 23:37: ml/hr, Eb MEQ/ML 00 Infuse Injectable Over: 30 Solution minutes, Route: IV, 1,000, Drug form: INJ, ONCE, Priority: STAT, Dosing Weight 87.727 kg, Start date: 12/20/15 18:37:00 CDT, Duration: 1 doses or times, Stop date: 12/20/15 18:37:00 CDT Saline No Notes: [facility] Flush 0.9% 7-09 (Same as: l 23:37: BD Eb 00 Posiflush) Ondansetron No Notes: Kehinde batsheva 12-19 (Same as: l 23:37: Zofran) [place] 00 MEDICATION WASTE Product Size: 4 mg Product Wasted: ___ mg Sodium 2016 No 1,000 mL, Memori a Chloride 7-09 2,000 l 0.154 23:37: ml/hr, Eb MEQ/ML 00 Infuse Injectable Over: 30 Solution minutes, Route: IV, 1,000, Drug form: INJ, ONCE, Priority: STAT, Dosing Weight 87.727 kg, Start date: 12/20/15 18:37:00 CDT, Duration: 1 doses or times, Stop date: 12/20/15 18:37:00 CDT Saline No Notes: [facility] Flush 0.9% 7- (Same as: l 23:37: BD [place] 00 Posiflush) Ondansetron No Notes: Kehinde batsheva 12-19 (Same as: l 23:37: Zofran) [place] 00 MEDICATION WASTE Product Size: 4 mg Product Wasted: ___ mg Sodium No 1,000 mL, Memori a Chloride 7-09 2,000 l 0.154 23:37: ml/hr, Eb MEQ/ML 00 Infuse Injectable Over: 30 Solution minutes, Route: IV, 1,000, Drug form: INJ, ONCE, Priority: STAT, Dosing Weight 87.727 kg, Start date: 12/20/15 18:37:00 CDT, Duration: 1 doses or times, Stop date: 12/20/15 18:37:00 CDT Saline No Notes: Mem[facility] Flush 0.9% 7-09 (Same as: l 23:37: BD [place] 00 Posiflush) Ondansetron No Notes: Kehinde batsheva 12-19 (Same as: l 23:37: Zofran) [place] 00 MEDICATION WASTE Product Size: 4 mg Product Wasted: ___ mg Sodium No 1,000 mL, Memori a Chloride 7-09 2,000 l 0.154 23:37: ml/hr, [place] MEQ/ML 00 Infuse Injectable Over: 30 Solution minutes, Route: IV, 1,000, Drug form: INJ, ONCE, Priority: STAT, Dosing Weight 87.727 kg, Start date: 12/20/15 18:37:00 CDT, Duration: 1 doses or times, Stop date: 12/20/15 18:37:00 CDT Ondansetron No Notes: Kehinde batsheva 7- (Same as: l 23:37: Zofran) Eb 00 MEDICATION WASTE Product Size: 4 mg Product Wasted: ___ mg Saline No Notes: Memoria Flush 0.9% 7- (Same as: l 23:37: BD Eb 00 Posiflush) Sodium No 1,000 mL, Memori a Chloride 7-09 2,000 l 0.154 23:37: ml/hr, Eb MEQ/ML 00 Infuse Injectable Over: 30 Solution minutes, Route: IV, 1,000, Drug form: INJ, ONCE, Priority: STAT, Dosing Weight 87.727 kg, Start date: 12/20/15 18:37:00 CDT, Duration: 1 doses or times, Stop date: 12/20/15 18:37:00 CDT Saline No Notes: [facility] Flush 0.9% -09 (Same as: l 23:37: BD [place] 00 Posiflush) Ondansetron No Notes: Kehinde batsheva - (Same as: l 23:37: Zofran) [place] 00 MEDICATION WASTE Product Size: 4 mg Product Wasted: ___ mg Sodium 2016 No 1,000 mL, Memori a Chloride 7-09 2,000 l 0.154 23:37: ml/hr, Eb MEQ/ML 00 Infuse Injectable Over: 30 Solution minutes, Route: IV, 1,000, Drug form: INJ, ONCE, Priority: STAT, Dosing Weight 87.727 kg, Start date: 12/20/15 18:37:00 CDT, Duration: 1 doses or times, Stop date: 12/20/15 18:37:00 CDT Saline 2016-0 No Notes: Mem[facility] Flush 0.9% 7-09 (Same as: l 23:37: BD Eb 00 Posiflush) Ondansetron No Notes: Kehinde batsheva 12-19 (Same as: l 23:37: Zofran) [place] 00 MEDICATION WASTE Product Size: 4 mg Product Wasted: ___ mg Sodium 2016 No 1,000 mL, Memori a Chloride 7-09 2,000 l 0.154 23:37: ml/hr, [place] MEQ/ML 00 Infuse Injectable Over: 30 Solution minutes, Route: IV, 1,000, Drug form: INJ, ONCE, Priority: STAT, Dosing Weight 87.727 kg, Start date: 12/20/15 18:37:00 CDT, Duration: 1 doses or times, Stop date: 12/20/15 18:37:00 CDT Saline No Notes: Mem[facility] Flush 0.9% 7- (Same as: l 23:37: BD Eb 00 Posiflush) Ondansetron No Notes: Kehinde batsheva 12-19 (Same as: l 23:37: Zofran) [place] 00 MEDICATION WASTE Product Size: 4 mg Product Wasted: ___ mg Sodium No 1,000 mL, Memori a Chloride 7-09 2,000 l 0.154 23:37: ml/hr, [place] MEQ/ML 00 Infuse Injectable Over: 30 Solution minutes, Route: IV, 1,000, Drug form: INJ, ONCE, Priority: STAT, Dosing Weight 87.727 kg, Start date: 12/20/15 18:37:00 CDT, Duration: 1 doses or times, Stop date: 12/20/15 18:37:00 CDT Saline No Notes: Mem[facility] Flush 0.9% 7-09 (Same as: l 23:37: BD [place] 00 Posiflush) Ondansetron No Notes: Kehinde batsheva 12-19 (Same as: l 23:37: Zofran) [place] 00 MEDICATION WASTE Product Size: 4 mg Product Wasted: ___ mg Sodium No 1,000 mL, Memori a Chloride 7-09 2,000 l 0.154 23:37: ml/hr, [place] MEQ/ML 00 Infuse Injectable Over: 30 Solution minutes, Route: IV, 1,000, Drug form: INJ, ONCE, Priority: STAT, Dosing Weight 87.727 kg, Start date: 12/20/15 18:37:00 CDT, Duration: 1 doses or times, Stop date: 12/20/15 18:37:00 CDT Saline No Notes: Mem[facility] Flush 0.9% 7- (Same as: l 23:37: BD Eb 00 Posiflush) Ondansetron No Notes: Kehinde batsheva 7- (Same as: l 23:37: Zofran) Eb 00 MEDICATION WASTE Product Size: 4 mg Product Wasted: ___ mg Sodium No 1,000 mL, Memori a Chloride 7-09 2,000 l 0.154 23:37: ml/hr, Eb MEQ/ML 00 Infuse Injectable Over: 30 Solution minutes, Route: IV, 1,000, Drug form: INJ, ONCE, Priority: STAT, Dosing Weight 87.727 kg, Start date: 12/20/15 18:37:00 CDT, Duration: 1 doses or times, Stop date: 12/20/15 18:37:00 CDT Saline No Notes: [facility] Flush 0.9% - (Same as: l 23:37: BD Eb 00 Posiflush) Ondansetron No Notes: Kehinde batsheva 12-19 (Same as: l 23:37: Zofran) Eb 00 MEDICATION WASTE Product Size: 4 mg Product Wasted: ___ mg Sodium No 1,000 mL, Memori a Chloride 7-09 2,000 l 0.154 23:37: ml/hr, [place] MEQ/ML 00 Infuse Injectable Over: 30 Solution minutes, Route: IV, 1,000, Drug form: INJ, ONCE, Priority: STAT, Dosing Weight 87.727 kg, Start date: 12/20/15 18:37:00 CDT, Duration: 1 doses or times, Stop date: 12/20/15 18:37:00 CDT Saline No Notes: [facility] Flush 0.9% 12-19 (Same as: l 23:37: BD Eb 00 Posiflush) Ondansetron No Notes: Kehinde batsheva 12-19 (Same as: l 23:37: Zofran) [place] 00 MEDICATION WASTE Product Size: 4 mg Product Wasted: ___ mg Sodium No 1,000 mL, Memori a Chloride 12-19 2,000 l 0.154 23:37: ml/hr, [place] MEQ/ML 00 Infuse Injectable Over: 30 Solution minutes, Route: IV, 1,000, Drug form: INJ, ONCE, Priority: STAT, Dosing Weight 87.727 kg, Start date: 12/20/15 18:37:00 CDT, Duration: 1 doses or times, Stop date: 12/20/15 18:37:00 CDT Saline No Notes: Memoria Flush 0.9% 12-19 (Same as: l 23:37: BD Eb Posiflush) Immunizations Ordered Filled Immunization Date Status Comments [facility] e Immunization Name Name Pneumococcal 2017-05-06 Completed [facility] Conjugate 13-[facility]ent 00:00:00 Hospi art[facility] Pneumococcal 2017-05-06 Completed [facility] Conjugate 13-Valent 00:00:00 Hospi arturo Pneumococcal 2017-05-06 Completed [facility] Conjugate 13-Valent 00:00:00 Hospi arturo Pneumococcal 2017-05-06 Completed [facility] Conjugate 13-Valent 00:00:00 Hospi arturo Pneumococcal 13 2017-05-06 Completed [facility] Conjugate, PCV13 00:00:00 [place] [facility]Pre[facility] Pneumococcal 13 2017-05-06 Completed [facility] Conjugate, PCV13 00:00:00 [place] [facility] (Prevnar 13) [facility] Pneumococcal 13 2017-05-06 Completed [facility] Conjugate, PCV13 00:00:00 [place] [facility] (Prevnar 13) [facility] Pneumococcal 13 2017-05-06 Completed [facility] Conjugate, PCV13 00:00:00 [place] [facility] (Prevnar 13) Branch Pneumococcal 13 2017-05-06 Completed [facility] of Conjugate, PCV13 00:00:00 [place] [facility] (Prevnar 13) Branch Pneumococcal 13 2017-05-06 Completed [facility] Conjugate, PCV13 00:00:00 [place] [facility] (Prevnar 13) [facility] Pneumococcal 13 2017-05-06 Completed [facility] of Conjugate, PCV13 00:00:00 [place] [facility] (Prevnar 13) Branch Pneumococcal 13 2017-05-06 Completed [facility] of Conjugate, PCV13 00:00:00 [place] [facility] (Prevnar 13) Branch Pneumococcal 13 2017-05-06 Completed [facility] of Conjugate, PCV13 00:00:00 [place] [facility] (Prevnar 13) Branch Pneumococcal 13 2017-05-06 Completed [facility] of Conjugate, PCV13 00:00:00 [place] [facility] (Prevnar 13) Branch Pneumococcal 13 2017-05-06 Completed [facility] of Conjugate, PCV13 00:00:00 [place] [facility] (Prevnar 13) Branch Pneumococcal 2017-05-06 Completed [facility] Conjugate 13-Valent 00:00:00 Hospi arturo Vital Signs Vital Name Observation Time Observation Value Comments Source Systolic blood 2023-01-13 11:01:00 118 mm[Hg] [facility] of pressure [facility] Diastolic blood 2023-01-13 11:01:00 82 mm[Hg] Unive rsity of [facility] Heart rate 2023-01-13 11:01:00 100 /min [facility] Respiratory rate 2023-01-13 11:01:00 15 /min [facility] Oxygen saturation in 2023-01-13 11:01:00 100 /min [facility] Arterial blood by [facility] Pulse oximetry Branch Body temperature 2023-01-13 07:45:00 36.67 Raquel [facility] Body height 2023-01-13 07:45:00 165.1 cm [facility] Body weight 2023-01-13 07:45:00 86.183 kg [facility] BMI 2023-01-13 07:45:00 31.62 kg/m2 [facility] Systolic blood 2023-01-06 08:15:00 149 mm[Hg] Univer sity of pressure [facility] Diastolic blood 2023-01-06 08:15:00 99 mm[Hg] Unive rsity of pressure [facility] Heart rate 2023-01-06 08:15:00 91 /min [facility] Body temperature 2023-01-06 08:15:00 36.94 Raquel [facility] [place] [facility] Respiratory rate 2023-01-06 08:15:00 15 /min [facility] Oxygen saturation in 2023-01-06 08:15:00 98 /min [facility] Arterial blood by [facility] magaly Pulse oximetry Branch Body height 2023-01-06 06:11:00 165.1 cm [facility] Body weight 2023-01-06 06:11:00 88.451 kg [facility] BMI 2023-01-06 06:11:00 32.45 kg/m2 [facility] Systolic blood 2022-04-11 10:51:00 150 mm[Hg] Univer [facility]ity of pressure [facility] Diastolic blood 2022-04-11 10:51:00 105 mm[Hg] Unive rsity of pressure [facility] Heart rate 2022-04-11 10:51:00 104 /min [facility] Body temperature 2022-04-11 10:51:00 37 Raquel [facility] [place] [facility] Respiratory rate 2022-04-11 10:51:00 24 /min [facility] [place] [facility] Body height 2022-04-11 10:51:00 165.1 cm [facility] Body weight 2022-04-11 10:51:00 92.987 kg [facility] BMI 2022-04-11 10:51:00 34.11 kg/m2 [facility] Oxygen saturation in 2022-04-11 10:51:00 97 /min [facility] Arterial blood by [facility] Pulse oximetry Branch Systolic blood 2022-04-04 12:26:00 162 mm[Hg] Univer [facility]ity of pressure [facility] Diastolic blood 2022-04-04 12:26:00 98 mm[Hg] Unive rsity of pressure [facility] Heart rate 2022-04-04 12:26:00 90 /min [facility] [place] [facility] Body temperature 2022-04-04 12:26:00 37.11 Raquel [facility] [place] [facility] Respiratory rate 2022-04-04 12:26:00 18 /min [facility] [place] [facility] Body weight 2022-04-04 12:26:00 96.616 kg Universi ty [facility] BMI 2022-04-04 12:26:00 36.56 kg/m2 Universi [facility] Oxygen saturation in 2022-04-04 12:26:00 99 /min University of Arterial blood by [facility] Pulse oximetry Branch Systolic blood 2021-12-04 07:33:00 153 mm[Hg] Univer sity of pressure [facility] Diastolic blood 2021-12-04 07:33:00 96 mm[Hg] [facility]ive rsity of [facility] Heart rate 2021-12-04 07:33:00 104 [facility] Body temperature 2021-12-04 07:33:00 36.22 Raquel [facility] Respiratory rate 2021-12-04 07:33:00 18 /min [facility] in 2021-12-04 07:33:00 99 /min [facility] Arterial blood by [facility] Pulse oximetry Branch Body weight 2021-12-04 04:49:00 97 kg [facility]i [facility] BMI 2021-12-04 04:49:00 36.71 kg/m2 [facility] Systolic blood 2021-12-06 00:00:00 114 mm[Hg] [facility] pressure Diastolic blood 2021-12-06 00:00:00 62 mm[Hg] [facility] pressure Heart rate 2021-12-06 00:00:00 67 /min [facility] Respiratory rate 2021-12-06 00:00:00 15 /min [facility] Oxygen saturation in 2021-12-06 00:00:00 96 /min [facility] Arterial blood by Pulse oximetry Body temperature 2021-12-05 23:45:00 36.39 Raqule [facility] Body height 2021-12-05 09:15:00 165.1 cm [facility] Body weight 2021-12-05 09:15:00 99.791 kg [facility] BMI 2021-12-05 09:15:00 36.61 kg/m2 [facility] Heart Rate 2021-12-05 03:02:31 [facility] [place] Respitory Rate 2021-12-05 03:02:31 Memori al Eb Systolic (mm Hg) 2021-12-05 03:02:15 Kehinde rial Eb Diastolic (mm Hg) 2021-12-05 03:02:15 Mem orial [place] Heart Rate 2021-12-05 03:02:15 [facility] Eb Temperature Oral (F) 2021-12-05 03:01:45 98.5 F [facility] [place] Heart Rate 2021-12-04 22:37:04 [facility] [place] Respitory Rate 2021-12-04 22:37:04 Memori al [place] Systolic (mm Hg) 2021-12-04 22:36:56 Kehinde rial [place] Diastolic (mm Hg) 2021-12-04 22:36:56 Mem orial [place] Temperature Oral (F) 2021-12-04 22:36:02 98.8 F [facility] Eb Height 2021-12-04 19:28:00 162.56 cm [facility] [place] BMI Calculated 2021-12-04 19:28:00 Memori al Eb Weight 2021-12-04 19:28:00 [facility] Eb Systolic (mm Hg) 2021-12-04 19:28:00 Kehinde rial Eb Diastolic (mm Hg) 2021-12-04 19:28:00 Mem orial [place] Respitory Rate 2021-12-04 19:28:00 Memori al Eb Temperature Oral (F) 2021-12-04 19:28:00 98.6 F [facility] [place] Respitory Rate 2016-04-11 13:00:00 Mem[facility] al [place] Temperature Oral (F) 2016-04-11 13:00:00 98 F [facility] Systolic (mm Hg) 2016-04-11 13:00:00 Kehinde rial Eb Diastolic (mm Hg) 2016-04-11 13:00:00 Mem orial [place] Heart Rate 2016-04-11 13:00:00 [facility] [place] Respitory Rate 2016-04-11 09:20:00 Memori al [place] Temperature Oral (F) 2016-04-11 09:20:00 97.4 F [facility] [place] Heart Rate 2016-04-11 09:20:00 [facility] [place] Systolic (mm Hg) 2016-04-11 09:20:00 Kehinde rial [place] Diastolic (mm Hg) 2016-04-11 09:20:00 Mem orial Eb Temperature Oral (F) 2016-04-11 04:55:00 98.1 F [facility] [place] Systolic (mm Hg) 2016-04-11 04:55:00 Kehinde rial [place] Diastolic (mm Hg) 2016-04-11 04:55:00 Mem orial Eb Heart Rate 2016-04-11 04:55:00 [facility] [place] Respitory Rate 2016-04-11 04:55:00 Memori al Eb Height 2016-04-08 22:42:00 162.56 cm [facility] [place] Weight 2016-04-08 22:42:00 [facility] [place] BMI Calculated 2016-04-08 22:42:00 Memori al Eb Height 2016-04-08 15:37:00 162.56 cm [facility] [place] Weight 2016-04-08 15:37:00 [facility] [place] BMI Calculated 2016-04-08 15:37:00 [facility] Systolic (mm Hg) 2015-12-24 21:00:00 [place] [facility] Diastolic (mm Hg) 2015-12-24 21:00:00 [facility] Temperature Oral (F) 2015-12-24 21:00:00 98.1 F [facility] Heart Rate 2015-12-24 21:00:00 [facility] Respitory Rate 2015-12-24 21:00:00 [facility] [place] Systolic (mm Hg) 2015-12-24 17:00:00 [place] [place] Diastolic (mm Hg) 2015-12-24 17:00:00 [facility] [place] Respitory Rate 2015-12-24 17:00:00 [facility] [place] Heart Rate 2015-12-24 17:00:00 [facility] Temperature Oral (F) 2015-12-24 17:00:00 97.8 F [facility] [place] Temperature Oral (F) 2015-12-24 13:00:00 97.4 F [facility] [place] Heart Rate 2015-12-24 13:00:00 [facility] Systolic (mm Hg) 2015-12-24 13:00:00 [facility] Diastolic (mm Hg) 2015-12-24 13:00:00 [facility] [place] Respitory Rate 2015-12-24 13:00:00 [facility] [place] Height 2015-12-22 02:10:00 162.56 cm [facility] BMI Calculated 2015-12-22 02:10:00 [facility] Weight 2015-12-22 02:10:00 [facility] Height 2015-12-21 20:41:00 162.56 cm [facility] [place] BMI Calculated 2015-12-21 20:41:00 [facility] [place] Weight 2015-12-21 20:41:00 [facility] [place] Heart Rate 2015-12-21 04:57:00 [facility] [place] Temperature Oral (F) 2015-12-21 04:57:00 98.1 F [facility] Respitory Rate 2015-12-21 04:57:00 [facility] Systolic (mm Hg) 2015-12-21 04:57:00 Kehinde rial [place] Diastolic (mm Hg) 2015-12-21 04:57:00 [facility] Weight 2015-12-20 21:28:00 [facility] [place] Temperature Oral (F) 2015-12-20 21:28:00 97.9 F [facility] Respitory Rate 2015-12-20 21:28:00 [facility] [place] Systolic (mm Hg) 2015-12-20 21:28:00 Kehinde rial [facility] Diastolic (mm Hg) 2015-12-20 21:28:00 [facility] Heart Rate 2015-12-20 21:28:00 [facility] [place] Procedures Procedure Date / Time Performing Clinician Source Performed LIPASE 2023-01-13 08:02:00 Nehal Walter [facility] MAGNESIUM 2023-01-13 08:02:00 Nehal Walter [facility] COMP. METABOLIC PANEL 2023-01-13 08:02:00 Nehal Walter [facility] ([id number]) [facility] CBC WITH DIFF 2023-01-13 08:02:00 Nehal Walter [facility] CONSENT/REFUSAL FOR 2023-01-13 07:40:08 Doctor Unassigned, [facility] DIAGNOSIS AND TREATMENT [place] [facility] CT ABDOMEN PELVIS W 2023-01-06 07:22:00 Amy Jeong [facility] CONTRAST [facility] POCT TEST 2023-01-06 06:25:00 Amy Jeong [facility] Medical Branch LIPASE 2023-01-06 06:22:00 Amy Jeong [facility] COMP. METABOLIC PANEL 2023-01-06 06:22:00 Amy Jeong [facility] ([id number]) Medical Branch CBC WITH DIFF 2023-01-06 06:22:00 Amy Jeong [facility] URINALYSIS 2023-01-06 06:22:00 Amy Jeong [facility] NOTICE OF PRIVACY 2023-01-06 06:09:49 Doctor Unassigned, [facility] PRACTICES [place] [facility] [place] CONSENT/REFUSAL FOR 2023-01-06 06:06:53 Doctor Unassigned, [facility] CONSENT/REFUSAL FOR 2022-04-11 10:47:45 Doctor Unasandra, [facility] DI[facility] EKG-12 LEAD 2022-04-04 14:39:04 Alfred Moran [facility] CT CHEST PULMONARY 2022-04-04 13:07:00 Alfred Moran [facility] ANGIOGRAM Medical Branch RAPID INFLUENZA A/B 2022-04-04 12:51:00 Alfred Moran [facility] COVID-19 (ID NOW RAPID 2022-04-04 12:51:00 Alfred Moran [facility] TESTING) Medical Branch XR CHEST 1 VW 2022-04-04 12:50:26 Alfred Moran [facility] POCT TEST 2022-04-04 12:38:00 Alfred Moran [facility] LIPASE 2022-04-04 12:37:00 Alfred Moran [facility] TROPONIN I 2022-04-04 12:37:00 Alfred Moran [facility] COMP. METABOLIC PANEL 2022-04-04 12:37:00 Alfred Moran [facility] ([id number]) Medical Branch CBC WITH DIFF 2022-04-04 12:37:00 Alfred Moran [facility] [place] [facility] CONSENT/REFUSAL FOR 2022-04-04 12:23:39 Doctor Unassigned, [facility] DIAGNOSIS AND TREATMENT [place] [facility] REFERRAL- 2021-12-17 05:01:00 Doctor Unassigned, [facility] REQUEST/RESPONSE [place] [facility] SURGICAL PATHOLOGY 2021-12-05 22:30:00 [facility] REQUEST Jonathan CYTOLOGY 2021-12-05 22:20:00 [facility] Ho spital (NON-GYNECOLOGICAL) Jonathan REQUEST ID AN ELECTIVE 2021-12-05 21:29:00 Kyle Merchant [facility] ENDOTRACHEAL AIRWAY SALPINGO-OOPHORECTOMY, 2021-12-05 21:24:00 [facility] LAPAROSCOPIC Jonathan COVID-19 QUALITATIVE 2021-12-05 20:26:00 Fernandez [facility] RT-PCR [facility] PELVIC TRANSABDOMINAL 2021-12-05 15:15:50 Fernandez [facility] PELVIC TRANSVAGINAL 2021-12-05 15:15:50 Fernandez [facility] CT RENAL STONE PROTOCOL 2021-12-05 12:58:57 Fernandez [facility] CBC WITH PLATELET AND 2021-12-05 09:42:00 [facility] DIFFERENTIAL COMPREHENSIVE METABOLIC 2021-12-05 09:42:00 Tirricathy, Aatif [facility] PANEL LIPASE LEVEL 2021-12-05 09:42:00 [facility], [facility] HCG QUALITATIVE, SERUM 2021-12-05 09:42:00 [facility] SCREEN ESTIMATED GFR 2021-12-05 09:42:00 [facility], [facility] URINE CULTURE 2021-12-05 09:34:00 [facility], [facility]EN AND 2021-12-05 09:18:00 [facility], [facility] MICROSCOPY, WITH REFLEX TO CULTURE [facility] Plan of Care Planned Activity Planned Date Details Comments Source Future Scheduled 2023-01-14 COVID-19 [facility]ACCINE [facility] Test 19:59:23 (#1) [code = COVID-19 VACCINE (#1)] Future Scheduled 2023-01-14 [facility] 19:59:23 screening (procedure) [code = 405839982] Future Scheduled 2023-01-14 [facility] Test 19:59:23 malignant neoplasm of cervix (procedure) [code = 694316857] Future Scheduled 2023-01-14 INFLUENZA VACCINE [facility] Test 19:59:23 [code = INFLUENZA VACCINE] Future Scheduled 2022-11-26 [facility]ZA VACCINE [facility] Test 22:34:18 [code = INFLUENZA VACCINE] Future Scheduled 2022-11-26 COVID-19 VACCINE [facility] Test 22:34:18 (#1) [code = COVID-19 VACCINE (#1)] Future Scheduled 2022-11-26 [facility] Test 22:34:18 screening (procedure) [code = 569818705] Future Scheduled 2022-11-26 [facility] Test 22:34:18 malignant neoplasm of cervix (procedure) [code = 699098197] Future Scheduled 2022-11-26 INFL[facility]ENZA VACCINE [facility] Test 22:34:18 [code = INFLUENZA VACCINE] Future Scheduled 2022-11-26 COVID-19 VACCINE [facility] Test 22:34:18 (#1) [code = COVID-19 VACCINE (#1)] Future Scheduled 2022-11-26 [facility] Test 22:34:18 screening (procedure) [code = 173381280] Future Scheduled 2022-11-26 [facility] Test 22:34:18 malignant neoplasm of cervix (procedure) [code = 674388505] Future Scheduled 2022-06-05 COVID-19 VACCINE [facility] Test 08:45:21 (#1) [code = COVID-19 VACCINE (#1)] Future Scheduled 2022-06-05 [facility] 08:45:21 screening (procedure) [code = 462440042] Future Scheduled 2022-06-05 [facility] Test 08:45:21 malignant neoplasm of cervix (procedure) [code = 119500301] Future Scheduled 2022-06-05 INFL[facility]ENZA VACCINE [facility] Test 08:45:21 [code = INFLUENZA VACCINE] Future Scheduled COVID-[address] [facility] Test (1) [code = COVID-19 VACCINE (1)] Future Scheduled [facility]ening for [facility] Test malignant neoplasm of cervix (procedure) [code = 806440924] Future Scheduled INFLUENZA VACCINE [facility] Test [code = INFLUENZA VACCINE] Encounters Start End Encounter Admission Attending Care Care Encounter Source Date/Time Date/Time Type Type Clinicians Facility Department ID 2023-01-18 2023-01-18 Outpatient R BECKIE LIMON [facility] [id number] Univers 13:15:00 13:15:00 BECKIE LIMON [facility] 2023-01-13 2023-01-13 Emergency X SABA RUST ERT [id number] Univers 02:54:00 07:28:00 [facility] 2023-01-13 2023-01-13 Emergency [facility] 1.2.840.[id number] [facility] 02:54:00 07:28:00 Nehal [facility].10 [facility] 4.2.7.2.686 [facility] [id number] [place] [id number] [place] 2023-01-12 2023-01-12 Outpatient GC_GCBZW_Ka PRIV PRIV [id number] [facility] 00:00:00 00:00:00 diyala_S [id number] Medic al 2023-01-11 2023-01-11 [facility] 1.2.840.114 [id number] Univers 00:00:00 00:00:00 Beckie chakraborty 350.1.13.10 [facility] 4.2.7.2.686 [facility] [id number] Nv dical [facility] 134 [facility] 2023-01-10 2023-01-10 Outpatient S[facility] [id number] August 16:33:27 16:33:27 [id number] F Lorenzo 2023-01-09 2023-01-09 Emergency X SABA RUST ERT [id number] Univers 08:11:00 11:33:00 NEHAL reyes [facility] 2023-01-06 2023-01-06 Emergency X ADENIKE RUST ERT [id number] Univers 01:15:00 03:28:00 AMY reyes [facility] 2023-01-06 2023-01-06 Emergency Adenike, RUST 1.2.595.644 [id number] Univers 01:15:00 03:28:00 Amy PATEL 350.1.13.10 ity of [place] 4.2.7.2.686 [facility] [id number] [address] 2022-11-30 2022-11-30 Outpatient SFA SFA [id number] August 15:34:13 15:34:13 [id number] F Lorenzo 2022-04-11 2022-04-11 Emergency X ADENIKE RUST ERT [id number] Univers 05:51:00 07:00:00 AMY reyes [facility] 2022-04-11 2022-04-11 Emergency Adenike RUST 1.2.667.020 [id number] Univers 05:51:00 07:00:00 Amy Chakraborty JORGE 350.1.13.10 ity of [place] 4.2.7.[address] [place] [id number] 2022-04-04 2022-04-04 Emergency X NATIVIDAD, RUST ERT [id number] Univers 07:30:00 09:57:00 ALFRED ity [facility] 2022-04-04 2022-04-04 Emergency Vasut, RUST 1.2.455.688 [id number] Univers 07:30:00 09:57:00 Alfred PATEL 350.1.13.10 i ty of [place] 4.2.7.2.686 [facility] [id number] [address] 2021-12-17 2021-12-17 Telephone Pcp, RUST 1.2.421.900 [id number] Univers 00:00:00 00:00:00 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 1 [id number] Methodi 04:35:00 20:00:00 Sourav Ayers [address]1.[address] 3.430.2.7 Hospit a .3.873513 l .8 2021-12-05 2021-12-05 Anesthesia Daniel Villatoro 1.2.840. 1 [id number] Methodi 16:24:00 17:57:00 Event Shantell Asif Milo 67519.1.[address] 3.430.2.7 Hospit a .3.256302 l .8 2021-12-05 2021-12-05 Surgery Nicole 1.2.840.1 [id number] Methodi 15:30:00 16:55:[address] Jonathan 3.430.2.7 Hospit a .3.681300 l .8 2021-12-04 2021-12-05 Emergency nullFlavo [facility] [id number] Memoria 18:52:14 09:28:00 [place] [address] [place] [address] 2021-12-04 2021-12-05 Emergency nullFlavo [facility] [id number] Memoria 18:52:14 09:28:00 r Eb [address] [place] [address] 2021-12-04 2021-12-05 Emergency nullFlavo [facility] [id number] Memoria 18:52:14 09:28:00 [place] [address] [place] [address] 2021-12-04 2021-12-05 Outpatient Luke, [facility] [id number] 13:52:14 04:28:00 Gilda De La Fuente 2021-12-04 2021-12-05 Outpatient Luke, [facility] [id number] 675 13:52:14 04:28:00 Gilda De La Fuente 2021-12-04 2021-12-05 Emergency E LUKE, [facility] 7503 [facility] 13:52:00 04:28:00 GILDA 2021-12-05 2021-12-05 Travel 1.2.840.1 1.2.699.623 [id number] Methodi 00:00:00 00:00:[address] 3.430.2.7 0.2.7.3.698 Ho spita .3.182028 084.8 l .8 2021-12-03 2021-12-04 Emergency X MCGEE, RUST ERT [id number] Univers 23:50:00 03:14:00 VARSHA reyes [facility] 2021-12-03 2021-12-04 Emergency Mcgee, TRAUMA 1.2.840.114 [id number] Univers 23:50:00 03:14:00 Varsha [facility] 350.1.13.10 [place] [id number] [place] [address] Branch 2021-08-28 2021-08-28 Lucio Espinal RUST 1.2.840.114 [id number] Univers 00:00:00 00:00:00 Anjum PATEL 350.1.13.10 i ty [place] [id number] Nv homer BARNARD 085 [facility] 2021-06-08 2021-06-08 Letter NurseAamir RUST 1.2.840.114 [id number] Univers 00:00:00 00:00:00 (Out) Urgent Care HEALTH 350.1.13.10 ity of [place] 4.2.7.2.686 [place] as LUIS?BLEA [id number] [address] MEDICAL OFFICE [facility] 2021-06-04 2021-06-04 Telephone Abelino RUST 1.2.418.681 [id number] Univers 00:00:00 00:00:00 Dawn HEALTH 350.1.13.10 it y of [place] 4.2.7.2.686 [place] as LUIS?BLEA [id number] [address] OFFICE [facility] 2021-06-03 2021-06-03 Outpatient R ABELINO [facility] [id number] Univers 16:20:00 19:31:01 DAWN ity [facility] 2021-06-03 2021-06-[address] [facility] 1.2.840.114 [id number] Univers 16:20:00 16:40:00 Care Dawn HEALTH 350.1.13.10 it y of [place] 4.2.7.2.686 [place] as LUIS?BLEA [id number] [address] OFFICE [facility] 2020-11-15 2020-11-15 Refill Kiarra RUST 1.2.840.114 [id number] 00:00:00 00:00:00 Anjum Patel 350.1.13.10 [place] 4.2.7.2.686 Profnighat [id number] [facility] 2020-09-04 2020-09-04 Outpatient R ANJUM ESPINAL [facility] 10 [id number] Univers 09:50:00 09:50:00 ANJUM ESPINAL [facility] 2020-09-04 2020-09-04 Orders Doctor MILO 1.2.840.114 [id number] 00:00:00 00:00:00 Only Unassigned, JEANIE 350.1.13.10 [place] [facility] 4.2.7.2.686 [id number] 009 2020-09-02 2020-09-02 Patient Hardy RUST 1.2.840.114 [id number] 00:00:00 00:00:00 Outreach [facility] 350.1.13.10 [facility] 4.2.7.2.686 [place]AVILLI[place]RAHAM [id number] [facility] 2020-09-022020-09-02 Telephone Kiarra RUST 1.2.048.919 [id number] 00:00:00 00:00:00 Anjum Patel 350.1.13.10 [place] 4.2.7.2.686 Professio [phone] nal 085 [facility] 2020-08-15 2020-08-15 Office Kiarra RUST 1.2.840.114 [id number] 15:09:23 15:39:23 Visit Anjum Patel 350.1.13.10 [place] 4.2.7.2.686 Professio [id number] nal 085 [facility] 2020-08-15 2020-08-15 Outpatient R ANJUM ESPINAL [facility] 10 [id number] Univers 15:00:00 15:00:00 ANJUM ESPINAL i ty [facility] 2020-08-08 2020-08-08 Outpatient R ANJUM ESPINAL [facility] 10 [id number] Univers 15:30:00 15:30:00 ANJUM ESPINAL i ty [facility] 2020-06-22 2020-06-22 Emergency [facility] [id number] Univers 16:21:00 19:02:00 MELISA [facility] 2020-06-22 2020-06-22 Outpatient R ABELINO [facility] [id number] Univers 15:20:00 15:20:00 DAWN [facility] 2020-06-19 2020-06-19 Outpatient R ANJUM ESPINAL [facility] 10 [id number] Univers 14:40:00 14:40:00 ANJUM ESPINAL i ty [facility] 2020-06-19 2020-06-19 Outpatient R ANJUM ESPINAL [facility] 10 [id number] Univers 14:40:00 14:40:00 ANJUM ESPINAL i ty [facility] 2020-04-30 2020-04-30 Outpatient R FLIP [facility] [id number] Univers 19:20:00 19:20:00 MILO ity [facility] 2020-03-14 2020-03-14 Outpatient R ANJUM ESPINAL [facility] 10 [id number] Univers 13:20:00 13:20:00 ANJUM ESPINAL i ty [facility] 2020-03-14 2020-03-14 Outpatient R ANJUM ESPINAL [facility] 10 [id number] Univers 10:40:00 10:40:00 ANJUM ESPINAL i ty [facility] 2020-03-07 2020-03-07 Outpatient R ADELA [facility] [id number] Univers 14:20:00 14:20:00 MARIA E ity [facility] 2020-02-28 2020-02-28 Outpatient R [facility] [id number] Univers 09:00:00 09:00:[facility] 2019-12-05 2019-12-05 Outpatient R JUNIORBRIANDA SALCEDO [facility] [id number] Univers 14:00:00 14:00:00 [facility] 2016-04-08 2016-04-11 Inpatient nullFlavo [facility] [id number] Memoria 15:34:00 15:50:00 r Eb 02 [facility] 2016-04-08 2016-04-11 Inpatient nullFlavo [facility] [id number] Memoria 15:34:00 15:50:00 r Eb 02 [facility] 2016-04-08 2016-04-11 Inpatient nullFlavo [facility] [id number] Memoria 15:34:00 15:50:00 r Eb 02 [facility] 2016-04-08 2016-04-11 Outpatient White, [facility] [id number] 10:34:00 10:50:00 Janeana 02 [place] 2016-04-08 2016-04-11 Outpatient White, [facility] [id number] 10:34:00 10:50:00 Janeana 02 [place] 2015-12-21 2015-12-25 OBS nullFlavo [facility] [id number] Memoria 20:38:00 00:08:00 Observatio r Eb 01 l n Patient [facility] 2015-12-21 2015-12-25 OBS nullFlavo [facility] [id number] Memoria 20:38:00 00:08:00 Observatio r Eb 01 l n Patient [facility] 2015-12-21 2015-12-25 OBS nullFlavo [facility] [id number] Memoria 20:38:00 00:08:00 Observatio r [place] 01 l n Patient [facility] 2015-12-21 2015-12-24 Outpatient White, [facility] [id number] 15:38:00 19:08:00 Janeana [place] 2015-12-21 2015-12-24 Outpatient White, [facility] [id number] 675 15:38:00 19:08:00 Janeana [place] 2015-12-20 2015-12-21 EC nullFlavo [facility] [id number] Memoria 21:20:00 05:07:00 Emergency r [place] 00 l [facility] 2015-12-20 2015-12-21 EC nullFlavo [facility] [id number] Memoria 21:20:00 05:07:00 Emergency r Eb 00 l [facility] 2015-12-20 2015-12-21 EC nullFlavo [facility] [id number] Memoria 21:20:00 05:07:00 Emergency r Eb 00 l [facility] 2015-12-20 2015-12-21 Outpatient Carolinecain, [facility] [id number] 16:20:00 00:07:00 Siddharth 00 Cas 2015-12-20 2015-12-21 Outpatient Ingalacain, [facility] [id number] 16:20:00 00:07:00 Siddharth 00 Cas Results Test Description Test Time Test Comments Results Result Comments Source CBC WITH DIFF 2023-01-06 07:56:34 Test Item Value Reference Range Interpretation Comme nts WBC (test code = 6690-2) 19.00 See_Comment H [A utomated message] The system which ge nerated this result transmit daphne reference range: 4.30 - 1 1.10 10*3/?L. The reference r bertha was not used to interpr et this result as normal/abnor mal. RBC (test code = 789-8) 5.25 See_Comment [Au tomated message] The system which ge nerated this result transmit daphne reference range: 3.93 - 5 .25 10*6/?L. The reference r bertha was not used to interpr et this result as normal/abnor mal. HGB (test code = 718-7) 15.6 g/dL 11.6-15.0 H HCT (test code = 4544-3) 45.2 % 35.7-45.2 MCV (test code = 787-2) 86.1 fL 80.6-95.5 MCH (test code = 785-6) 29.7 pg 25.9-32.8 MCHC (test code = 786-4) 34.5 g/dL 31.6-35.1 RDW-SD (test code = 17668-6) 46.3 fL 39.0-49.9 RDW-CV (test code = 788-0) 14.6 % 12.0-15.5 PLT (test code = 777-3) 432 See_Comment H [Au tomated message] The system which ge nerated this result transmit daphne reference range: 166 - 35 8 10*3/?L. The reference range was not used to interpret th is result as normal/abnormal . MPV (test code = 67628-8) 9.4 fL 9.5-12.9 L NRBC/100 WBC (test code = 0.0 See_Comment [ Automated message] The 7980333082) system which [employer]aiser nerated this result transmit daphne reference range: 0.0 - 10 .0 /100 WBCs. The reference r bertha was not used to interpr et this result as normal/abnor mal. NRBC x10^3 (test code = See_Comment [Au tomated message] The 5268292069) system which [employer] nerated this result transmit daphne reference range: 10*3/?L. The reference range was not u sed to interpret this result as normal/abnormal . GRAN MAT (NEUT) % (test code 79.2 % = 770-8) IMM GRAN % (test code = 0.30 % 3301864881) LYMPH % (test code = 736-9) 13.0 % MONO % (test code = 5905-5) 5.4 % EOS % (test code = 713-8) 1.6 % BASO % (test code = 706-2) 0.5 % GRAN MAT x10^3(ANC) (test 15.05 10*3/uL 1.88-7.09 H code = 6384798491) IMM GRAN x10^3 (test code = 0.06 10*3/uL 0.00-0.06 9930072032) LYMPH x10^3 (test code = 2.47 10*3/uL 1.32-3.29 731-0) MONO x10^3 (test code = 1.02 10*3/uL 0.33-0.92 H 742-7) EOS x10^3 (test code = 0.31 10*3/uL 0.03-0.39 711-2) BASO x10^3 (test code = 0.09 10*3/uL 0.01-0.07 H 704-7) Lab Interpretation (test Abnormal code = 71212-3) [facility]. METABOLIC PANEL (87401)2023-01-06 06:56:21 Test Item Value Reference Range Interpretation Comments NA (test code = 137 mmol/L 135-145 9065471542) K (test code = 4.0 mmol/L 3.5-5.0 8016198323) CL (test code = 103 mmol/L 98-108 5403682493) CO2 TOTAL (test code = 24 mmol/L 23-31 5839331738) AGAP (test code = 10 2-16 6597062304) BUN (test code = 15 mg/dL 7-23 4466338325) GLUCOSE (test code = 121 mg/dL 70-110 H 2769265267) CREATININE (test code = 0.59 mg/dL 0.50-1.04 0542583979) TOTAL BILI (test code = 0.8 mg/dL 0.1-1.6 5311197747) CALCIUM (test code = 9.7 mg/dL 8.6-10.6 7704240216) T PROTEIN (test code = 8.6 g/dL 6.3-8.2 H 3021989661) ALBUMIN (test code = 4.8 g/dL 3.5-5.0 0536181287) ALK PHOS (test code = 86 U/L 34-122 7614372107) ALTv (test code = 32 U/L 5-35 1742-6) AST(SGOT) (test code = 29 U/L 13-40 4526504389) eGFR (test code = 117.4 mL/min/1.73m2 7420683606) YANG (test code = YANG) Association of Glomerular Filtration Rate (GFR) and Staging of Kidney Disease* + --+ --+ ------+| GFR (mL/min/1.73 m2) ?| With Kidney Damage ?| ?Without Kidney Damage+ --------+ --------+ +| ?>90 ?| ?Stage one ?| ? Normal ?+ ---+ ---+ -------+| ?60-89 ?| ?Stage two ?| ? Decreased GFR ? + --+ --+ ------+| ?30-59 ?| ?Stage three ?| ? Stage three ? + --+ --+ ------+| ?15-29 ?| ?Stage four ? | ? Stage four ?+ ---+ ---+ -------+| ?<15 (or dialysis) ? ?| ?Stage five ? | ? Stage five ?+ ---+ ---+ -------+ *Each stage assumes the associated GFR level has been in effect for at least three months. ?Stages 1 to 5, with or without kidney disease, indicate chronic kidney disease. Notes: Determination of stages one and two (with eGFR >59mL/min/1.73 m2) requires estimation of kidney damage for at least three months as defined by structural or functional abnormalities of the kidney, manifested by either:Pathological abnormalities or Markers of kidney damage (including abnormalities in the composition of the blood or urine or abnormalities in imaging tests). Lab Interpretation Abnormal (test code = 91997-4) [facility]00 Test Item Value Reference Range Interpretation Comments LIPASE (test code = 2892783013) 73 U/L 0-220 Lab Interpretation (test code = Normal 46267-6) [facility] [id number] 06:25:00 Test Item Value Reference Range Interpretation Comments POCT PREG (test code = 1605) Negative On board controls acceptable with C Yes Line (test code = 3574) Lab Interpretation (test code = Normal 05930-3) [facility] [id number] 13:55:39 Test Item Value Reference Interpretation Comments Range TROPONIN I (test 0.003 ng/mL See_Comment [Automated code = 8262494800) message] The system which generated this result transmitted reference range : <=0.034. The reference range was not used to interpret this result as normal/abnormal . YANG (test code = Reference (Normal) YANG) Range (defined by the 99th percentile reference limit): <= 0.034 ng/mL Note: Cardiac troponin begins to rise 3-4 hours after the onset of ischemia. Repeat in 4-6 hours if the sample was drawn within 3-4 hours of the onset of the symptom and found normal. Diagnosis of myocardial injury is made with acute changes in cTn concentrations with at least one serial sample above the 99th percentile upper reference limit (URL), taken together with the patient's clinical presentation. Biotin has been reported to cause a negative bias, interpret results relative to patient's use of biotin. Lab Interpretation Normal (test code = 48290-0) [facility]. METABOLIC PANEL ([id number])2022-04-04 13:44:42 Test Item Value Reference Range Interpretation Comments NA (test code = 137 mmol/L 135-145 2656629240) K (test code = 4.4 mmol/L 3.5-5 0858473769) CL (test code = 106 mmol/L 98-108 0607022819) CO2 TOTAL (test code 24 mmol/L 23-31 = 7655370144) AGAP (test code = 2-16 5876908633) BUN (test code = 12 mg/dL 7-23 0302730586) GLUCOSE (test code = 98 mg/dL 70-110 6337433261) CREATININE (test code 0.70 mg/dL 0.5-1.04 = 8886147406) TOTAL BILI (test code 0.3 mg/dL 0.1-1.1 = 5145243415) CALCIUM (test code = 9.4 mg/dL 8.6-10.6 9131896462) T PROTEIN (test code 6.9 g/dL 6.3-8.2 = 6671837429) ALBUMIN (test code = 4.3 g/dL 3.5-5 6175577416) ALK PHOS (test code = 61 U/L 34-122 0461440980) ALTv (test code = 23 U/L 5-35 1742-6) AST(SGOT) (test code 22 U/L 13-40 = 1138572623) eGFR (test code = mL/min/1.73m2 2145018298) YANG (test code = YANG) Association of Glomerular Filtration Rate (GFR) and Staging of Kidney Disease* + + +- +| GFR (mL/min/1.73 m2) ?| With Kidney Damage ?| ?Without Kidney Damage+ ------+ ----+ ------+| ?>90 ?| ?Stage one ?| ? Normal ?+ -+ + -+| ?60-89 ?| ?Stage two ?| ? Decreased GFR ? + + +- +| ?30-59 ?| ?Stage three ?| ? Stage three ? + + +- +| ?15-29 ?| ?Stage four ? | ? Stage four ?+ -+ + -+| ?<15 (or dialysis) ? ?| ?Stage five ? | ? Stage five ?+ -+ + -+ *Each stage assumes the associated GFR level has been in effect for at least three months. ?Stages 1 to 5, with or without kidney disease, indicate chronic kidney disease. Notes: Determination of stages one and two (with eGFR >59mL/min/1.73 m2) requires estimation of kidney damage for at least three months as defined by structural or functional abnormalities of the kidney, manifested by either:Pathological abnormalities or Markers of kidney damage (including abnormalities in the composition of the blood or urine or abnormalities in imaging tests). [facility] Center[facility]IP[facility], [id number] 13:44:22 Test Item Value Reference Range Interpretation Comments LIPASE (test code = 2008349725) 121 U/L 0-220 Lab Interpretation (test code = Normal 26619-3) [facility] Center[facility] WITH [id number] 12:58:22 Test Item Value Reference Range Interpretation Comments WBC (test code = See_Comment [Automated 6394-2) message] The sy stem which generated this result transmitted reference range : 4.30 - 11.10 10*3/?L. The reference range was not used to interpret this result as normal/abnormal . RBC (test code = See_Comment [Automated 789-8) message] The sy stem which generated this result transmitted reference range : 3.93 - 5.25 10*6/?L. The reference range was not used to interpret this result as normal/abnormal . HGB (test code = 13.1 g/dL 11.6-15 718-7) HCT (test code = 39.1 % 35.7-45.2 4544-3) MCV (test code = 85.4 fL 80.6-95.5 787-2) MCH (test code = 28.6 pg 25.9-32.8 785-6) MCHC (test code = 33.5 g/dL 31.6-35.1 786-4) RDW-SD (test code = 46.5 fL 39-49.9 65144-4) RDW-CV (test code = 15.1 % 12-15.5 788-0) PLT (test code = See_Comment H [Automated 777-3) message] The sy stem which generated this result transmitted reference range : 166 - 358 10*3/ ?L. The reference r bertha was not used to interpret this result as normal/abnormal . MPV (test code = 9.9 fL 9.5-12.9 02766-4) NRBC/100 WBC (test See_Comment [Automat ed code = 3523281649) message] The system which generated this result transmitted reference range : 0.0 - 10.0 /100 WBCs. The refer ence range was not u sed to interpret th is result as normal/abnormal . NRBC x10^3 (test code See_Comment [Auto mated = 5566597602) message] The s ystem which generated this result transmitted reference range : 10*3/?L. The reference range was not used to interpret this result as normal/abnormal . GRAN MAT (NEUT) % 56.7 % (test code = 770-8) IMM GRAN % (test code 0.30 % = 3069563641) LYMPH % (test code = 28.5 % 736-9) MONO % (test code = 9.6 % 5905-5) EOS % (test code = 4.4 % 713-8) BASO % (test code = 0.5 % 706-2) GRAN MAT x10^3(ANC) 6.23 10*3/uL 1.88-7.09 (test code = 2131158688) IMM GRAN x10^3 (test 0.03 10*3/uL 0-0.06 code = 5747315289) LYMPH x10^3 (test code 3.13 10*3/uL 1.32-3.29 = 731-0) MONO x10^3 (test code 1.05 10*3/uL 0.33-0.92 H = 742-7) EOS x10^3 (test code = 0.48 10*3/uL 0.03-0.39 H 711-2) BASO x10^3 (test code 0.06 10*3/uL 0.01-0.07 = 704-7) Lab Interpretation Abnormal (test code = 68148-3) [facility] CenterPO[facility] [id number] 12:38:00 Test Item Value Reference Range Interpretation Comments POCT PREG (test code = 1605) negative On board controls acceptable with present C Line (test code = 3574) POCT PREG LOT # (test code = 3575) [id number] POCT PREG TEST DATE (test code = 3576) Lab Interpretation (test code = Normal 06290-9) [facility] CenterS[facility] [id number] 17:43:26 Test Item Value Reference Range Interpretation Comments Case number (test code = [id number]) Surgical pathology See link below for report (test code = PDF Lab Report 2258) Result status (test code This is Final Report = [id number]) [id number] [id number] 15:33:08 Test Item Value Reference Range Interpretation Comments Case number (test code = [id number]) Cytology See link below for (non-gynecological) PDF Lab Report report (test code = 1178) Result status (test code This is Final Report = [id number]) [facility] [id number] [facility] rlteuto5251-66-56 18:18:00 Test Item Value Reference Range Interpretation Comments Urine culture No growth Specimen isolate (test after 24 InformationSpe cimen code = 65519-7) hours Source: [facility] eSpecimen [facility] [Presence] in Respiratory specimen by FILIBERTO with probe [id number] 16:45:40 Test Item Value Reference Range Interpretation Comments SARS-CoV-2 (COVID-19) RNA Not detected [Presence] in Respiratory specimen by FILIBERTO with probe detection (test code = 00062-2) Whether patient is employed in a Unknown healthcare setting (test code = 53931-4) Whether the patient has symptoms Unknown related to condition of interest (test code = 88126-9) Whether the patient was Unknown hospitalized for condition of interest (test code = 02329-2) Whether the patient was admitted Unknown to intensive care unit (ICU) for condition of interest (test code = 83893-8) Whether patient resides in a Unknown congregate care setting (test code = 32281-4) status (test code = Unknown 29935-0) Date and time of symptom onset Unknown (test code = 79632-6) [facility] [id number] 20:13:43 Test Item Value Reference Range Interpretation Comments Glucose Lvl (test code = Glucose Lvl) 88 70-99 [facility]2022-06-24 20:13:43 Test Item Value Reference Range Interpretation Comments BUN (test code = BUN) 16 -22 [facility]2022-06-24 20:13:43 Test Item Value Reference Range Interpretation Comments Creatinine Lvl (test code = Creatinine 0.82 0.50-1.40 Lvl) [facility]2022-06-24 20:13:43 Test Item Value Reference Range Interpretation Comments Sodium Lvl (test code = Sodium Lvl) 139 135-145 [facility]2022-06-24 20:13:43 Test Item Value Reference Range Interpretation Comments Potassium Lvl (test code = Potassium 3.7 3.5-5.1 Lvl) [facility]2022-06-24 20:13:43 Test Item Value Reference Range Interpretation Comments Chloride Lvl (test code = Chloride Lvl) 107 95-109 [facility]2022-06-24 20:13:43 Test Item Value Reference Range Interpretation Comments CO2 (test code = CO2) 25 24-32 [facility]2022-06-24 20:13:43 Test Item Value Reference Range Interpretation Comments Calcium Lvl (test code = Calcium Lvl) 8.8 8.5-10.5 [place] 059912-06-24 20:13:43 Test Item Value Reference Range Interpretation Comments AGAP (test code = AGAP) 10.7 10.0-20.0 [place] 059912-06-24 20:13:43 Test Item Value Reference Range Interpretation Comments eGFR (test code = eGFR) 94 [place] 059912-06-24 20:13:43 Test Item Value Reference Range Interpretation Comments Total Protein (test code = Total 7.8 6.4-8.4 Protein) [place] 059912-06-24 20:13:43 Test Item Value Reference Range Interpretation Comments Albumin Lvl (test code = Albumin Lvl) 3.9 3.5-5.0 [place] 059912-06-24 20:13:43 Test Item Value Reference Range Interpretation Comments Globulin (test code = Globulin) 3.9 2.7-4.2 [place] 059912-06-24 20:13:43 Test Item Value Reference Range Interpretation Comments A/G Ratio (test code = A/G Ratio) 1.0 1 0.7-1.6 [place] 059912-06-24 20:13:43 Test Item Value Reference Range Interpretation Comments ALANINE AMINOTRANSFERASE 28 See_Comment [A utomated message] (test code = ALANINE The sys tem which AMINOTRANSFERASE) generated this result transmitted ref erence range: <=65. Th e reference range was not used to int erpret this result as normal/abnormal . [place] 059912-06-24 20:13:43 Test Item Value Reference Range Interpretation Comments AST (test code = AST) 16 See_Comment [Auto mated message] The system which ge nerated this result transmit daphne reference range : <=37. The reference range was not used to interpr et this result as fatuma l/abnormal. [place] 059912-06-24 20:13:43 Test Item Value Reference Range Interpretation Comments Alk Phos (test code = Alk Phos) 78 39-136 [place] 059912-06-24 20:13:43 Test Item Value Reference Range Interpretation Comments Bili Total (test code = Bili Total) 0.4 0.2-1.3 [facility]2022-06-24 20:13:43 Test Item Value Reference Range Interpretation Comments Bili Direct (test code no gt See_Comment [Aut omated message] The = Bili Direct) system which generated this result tra nsmitted reference range : <=0.3. The reference r bertha was not used to int erpret this result as fatuma l/abnormal. [place] 059912-06-24 20:13:43 Test Item Value Reference Range Interpretation Comments Bili Indirect Unable to See_Comment [Automated (test code = Bili Calculate message] T he system Indirect) which generated this result transmitted reference range : <=1.0. The reference range was not used to interpret this result as normal/abnormal . [facility]2022-06-24 20:13:43 Test Item Value Reference Range Interpretation Comments Lipase Lvl (test code = Lipase Lvl) 203 73-393 [place] 326662-06-24 20:13:43 Test Item Value Reference Range Interpretation Comments WBC X 10x3 (test code = WBC X 10x3) 12.8 3.7-10.4 [place] [address]-06-24 20:13:43 Test Item Value Reference Range Interpretation Comments RBC X 10x6 (test code = RBC X 10x6) 4.52 4.20-5.40 [place] 326662-06-24 20:13:43 Test Item Value Reference Range Interpretation Comments Hgb (test code = Hgb) 13.5 12.0-16.0 [place] [address]-06-24 20:13:43 Test Item Value Reference Range Interpretation Comments Hct (test code = Hct) 40.5 36.0-48.0 [place] [address]-06-24 20:13:43 Test Item Value Reference Range Interpretation Comments MCV (test code = MCV) 89.5 80.0-98.0 [place] 326662-06-24 20:13:43 Test Item Value Reference Range Interpretation Comments MCH (test code = MCH) 29.8 pg 27.0-31.0 [place] 326662-06-24 20:13:43 Test Item Value Reference Range Interpretation Comments MCHC (test code = MCHC) 33.3 32.0-36.0 [facility]AxivicdUFCPONDPWW2538-79-05 20:13:43 Test Item Value Reference Range Interpretation Comments RDW (test code = RDW) 15.3 11.5-14.5 [facility] HospitalKqzvkbxHEMLTYYDHH2819-14-95 20:13:43 Test Item Value Reference Range Interpretation Comments Platelet (test code = Platelet) 373 133-450 [facility] HospitalDhipkedOGTSSYTLEH1926-24-02 20:13:43 Test Item Value Reference Range Interpretation Comments MPV (test code = MPV) 8.1 7.4-10.4 [place] 326662-06-24 20:13:43 Test Item Value Reference Range Interpretation Comments Segs (test code = Segs) 65.2 45.0-75.0 [place] 326662-06-24 20:13:43 Test Item Value Reference Range Interpretation Comments Lymphocytes (test code = Lymphocytes) 21.9 20.0-40.0 [place] 326662-06-24 20:13:43 Test Item Value Reference Range Interpretation Comments Monocytes (test code = Monocytes) 10.3 2.0-12.0 [place] 326662-06-24 20:13:43 Test Item Value Reference Range Interpretation Comments Eosinophils (test code = 2.3 See_Comment [A utomated message] The Eosinophils) system which ge nerated this result tra nsmitted reference range : <=4.0. The reference r bertha was not used to int erpret this result as normal/abnormal . [facility] HospitalBjboyopYBXBMIZABO8932-56-78 20:13:43 Test Item Value Reference Range Interpretation Comments Basophils (test code = 0.3 See_Comment [Aut omated message] The Basophils) system which ge nerated this result tra nsmitted reference range : <=1.0. The reference r bertha was not used to int erpret this result as normal/abnormal . [facility] HospitalDdnofuuLPPVKYGKKM0588-52-16 20:13:43 Test Item Value Reference Range Interpretation Comments Neutrophils # (test code = Neutrophils 8.3 1.5-8.1 #) [facility] HospitalKzkgmdoITZFJGAURB4495-61-11 20:13:43 Test Item Value Reference Range Interpretation Comments Lymphocytes # (test code = Lymphocytes 2.8 1.0-5.5 #) [place] 326662-06-24 20:13:43 Test Item Value Reference Range Interpretation Comments Monocytes # (test code 1.3 See_Comment [Aut omated message] The = Monocytes #) system which generated this result tra nsmitted reference range : <=0.8. The reference r bertha was not used to int erpret this result as normal/abnormal . [place] 326662-06-24 20:13:43 Test Item Value Reference Range Interpretation Comments Eosinophils # (test code 0.3 See_Comment [A utomated message] The = Eosinophils #) system whic h generated this result tra nsmitted reference range : <=0.5. The reference r bertha was not used to int erpret this result as normal/abnormal . [place] 059912-06-24 20:13:43 Test Item Value Reference Range Interpretation Comments Glucose Lvl (test code = Glucose Lvl) 88 70-99 [place] 059912-06-24 20:13:43 Test Item Value Reference Range Interpretation Comments BUN (test code = BUN) 16 7-22 [place] 059912-06-24 20:13:43 Test Item Value Reference Range Interpretation Comments Creatinine Lvl (test code = Creatinine 0.82 0.50-1.40 Lvl) [place] 059912-06-24 20:13:43 Test Item Value Reference Range Interpretation Comments Sodium Lvl (test code = Sodium Lvl) 139 135-145 [place] 059912-06-24 20:13:43 Test Item Value Reference Range Interpretation Comments Potassium Lvl (test code = Potassium 3.7 3.5-5.1 Lvl) [place] 059912-06-24 20:13:43 Test Item Value Reference Range Interpretation Comments Chloride Lvl (test code = Chloride Lvl) 107 95-109 [place] 059912-06-24 20:13:43 Test Item Value Reference Range Interpretation Comments CO2 (test code = CO2) 25 24-32 [place] 059912-06-24 20:13:43 Test Item Value Reference Range Interpretation Comments Calcium Lvl (test code = Calcium Lvl) 8.8 8.5-10.5 [place] 059912-06-24 20:13:43 Test Item Value Reference Range Interpretation Comments AGAP (test code = AGAP) 10.7 10.0-20.0 [place] 059912-06-24 20:13:43 Test Item Value Reference Range Interpretation Comments eGFR (test code = eGFR) 94 [place] 059912-06-24 20:13:43 Test Item Value Reference Range Interpretation Comments Total Protein (test code = Total 7.8 6.4-8.4 Protein) [place] 059912-06-24 20:13:43 Test Item Value Reference Range Interpretation Comments Albumin Lvl (test code = Albumin Lvl) 3.9 3.5-5.0 [place] 059912-06-24 20:13:43 Test Item Value Reference Range Interpretation Comments Globulin (test code = Globulin) 3.9 2.7-4.2 [place] 059912-06-24 20:13:43 Test Item Value Reference Range Interpretation Comments A/G Ratio (test code = A/G Ratio) 1.0 1 0.7-1.6 [place] 05[address]-06-24 20:13:43 Test Item Value Reference Range Interpretation Comments ALANINE AMINOTRANSFERASE 28 See_Comment [A utomated message] (test code = ALANINE The sys tem which AMINOTRANSFERASE) generated this result transmitted ref erence range: <=65. Th e reference range was not used to int erpret this result as normal/abnormal . [place] 059912-06-24 20:13:43 Test Item Value Reference Range Interpretation Comments AST (test code = AST) 16 See_Comment [Auto mated message] The system which ge nerated this result transmit daphne reference range : <=37. The reference range was not used to interpr et this result as fatuma l/abnormal. [place] 059912-06-24 20:13:43 Test Item Value Reference Range Interpretation Comments Alk Phos (test code = Alk Phos) 78 39-136 [place] 059912-06-24 20:13:43 Test Item Value Reference Range Interpretation Comments Bili Total (test code = Bili Total) 0.4 0.2-1.3 [place] 059912-06-24 20:13:43 Test Item Value Reference Range Interpretation Comments Bili Direct (test code no gt See_Comment [Aut omated message] The = Bili Direct) system which generated this result tra nsmitted reference range : <=0.3. The reference r bertha was not used to int erpret this result as fatuma l/abnormal. [facility]2022-06-24 20:13:43 Test Item Value Reference Range Interpretation Comments Bili Indirect Unable to See_Comment [Automated (test code = Bili Calculate message] T he system Indirect) which generated this result transmitted reference range : <=1.0. The reference range was not used to interpret this result as normal/abnormal . [facility]2022-06-24 20:13:43 Test Item Value Reference Range Interpretation Comments Lipase Lvl (test code = Lipase Lvl) 203 73-393 [facility] HospitalEpgnzfkROUMSNGLOQ5438-32-32 20:13:43 Test Item Value Reference Range Interpretation Comments WBC X 10x3 (test code = WBC X 10x3) 12.8 3.7-10.4 [place] 326662-06-24 20:13:43 Test Item Value Reference Range Interpretation Comments RBC X 10x6 (test code = RBC X 10x6) 4.52 4.20-5.40 [facility] HospitalTlidbycGCTQGJXYYM7130-07-36 20:13:43 Test Item Value Reference Range Interpretation Comments Hgb (test code = Hgb) 13.5 12.0-16.0 [place] 326662-06-24 20:13:43 Test Item Value Reference Range Interpretation Comments Hct (test code = Hct) 40.5 36.0-48.0 [place] 326662-06-24 20:13:43 Test Item Value Reference Range Interpretation Comments MCV (test code = MCV) 89.5 80.0-98.0 [place] 326662-06-24 20:13:43 Test Item Value Reference Range Interpretation Comments MCH (test code = MCH) 29.8 pg 27.0-31.0 [place] 326662-06-24 20:13:43 Test Item Value Reference Range Interpretation Comments MCHC (test code = MCHC) 33.3 32.0-36.0 [facility] HospitalFyljknuKFSAWBRMGI6140-40-62 20:13:43 Test Item Value Reference Range Interpretation Comments RDW (test code = RDW) 15.3 11.5-14.5 [place] [address]-06-24 20:13:43 Test Item Value Reference Range Interpretation Comments Platelet (test code = Platelet) 373 133-450 [place] 326662-06-24 20:13:43 Test Item Value Reference Range Interpretation Comments MPV (test code = MPV) 8.1 7.4-10.4 [place] 326662-06-24 20:13:43 Test Item Value Reference Range Interpretation Comments Segs (test code = Segs) 65.2 45.0-75.0 [place] 326662-06-24 20:13:43 Test Item Value Reference Range Interpretation Comments Lymphocytes (test code = Lymphocytes) 21.9 20.0-40.0 [place] [address]-06-24 20:13:43 Test Item Value Reference Range Interpretation Comments Monocytes (test code = Monocytes) 10.3 2.0-12.0 [place] 326662-06-24 20:13:43 Test Item Value Reference Range Interpretation Comments Eosinophils (test code = 2.3 See_Comment [A utomated message] The Eosinophils) system which ge nerated this result tra nsmitted reference range : <=4.0. The reference r bertha was not used to int erpret this result as normal/abnormal . [facility] HospitalZqdlyctKKSVEFNFVU5047-81-13 20:13:43 Test Item Value Reference Range Interpretation Comments Basophils (test code = 0.3 See_Comment [Aut omated message] The Basophils) system which ge nerated this result tra nsmitted reference range : <=1.0. The reference r bertha was not used to int erpret this result as normal/abnormal . [facility] HospitalAkhkxpwHVRMHCHIOO0598-40-16 20:13:43 Test Item Value Reference Range Interpretation Comments Neutrophils # (test code = Neutrophils 8.3 1.5-8.1 #) [place] 326662-06-24 20:13:43 Test Item Value Reference Range Interpretation Comments Lymphocytes # (test code = Lymphocytes 2.8 1.0-5.5 #) [place] 326662-06-24 20:13:43 Test Item Value Reference Range Interpretation Comments Monocytes # (test code 1.3 See_Comment [Aut omated message] The = Monocytes #) system which generated this result tra nsmitted reference range : <=0.8. The reference r berhta was not used to int erpret this result as normal/abnormal . [facility] HospitalXutddbgQMWEEFCFNZ3691-73-60 20:13:43 Test Item Value Reference Range Interpretation Comments Eosinophils # (test code 0.3 See_Comment [A utomated message] The = Eosinophils #) system [employer] h generated this result tra nsmitted reference range : <=0.5. The reference r bertha was not used to int erpret this result as normal/abnormal . [place] 059912-06-24 20:13:43 Test Item Value Reference Range Interpretation Comments Glucose Lvl (test code = Glucose Lvl) 88 70-99 [place] 059912-06-24 20:13:43 Test Item Value Reference Range Interpretation Comments BUN (test code = BUN) 16 7-22 [place] 059912-06-24 20:13:43 Test Item Value Reference Range Interpretation Comments Creatinine Lvl (test code = Creatinine 0.82 0.50-1.40 Lvl) [place] 059912-06-24 20:13:43 Test Item Value Reference Range Interpretation Comments Sodium Lvl (test code = Sodium Lvl) 139 135-145 [place] 059912-06-24 20:13:43 Test Item Value Reference Range Interpretation Comments Potassium Lvl (test code = Potassium 3.7 3.5-5.1 Lvl) [place] 059912-06-24 20:13:43 Test Item Value Reference Range Interpretation Comments Chloride Lvl (test code = Chloride Lvl) 107 95-109 [place] 059912-06-24 20:13:43 Test Item Value Reference Range Interpretation Comments CO2 (test code = CO2) 25 24-32 [place] 059912-06-24 20:13:43 Test Item Value Reference Range Interpretation Comments Calcium Lvl (test code = Calcium Lvl) 8.8 8.5-10.5 [place] 059912-06-24 20:13:43 Test Item Value Reference Range Interpretation Comments AGAP (test code = AGAP) 10.7 10.0-20.0 [place] 059912-06-24 20:13:43 Test Item Value Reference Range Interpretation Comments eGFR (test code = eGFR) 94 [place] [address]-06-24 20:13:43 Test Item Value Reference Range Interpretation Comments Total Protein (test code = Total 7.8 6.4-8.4 Protein) [place] [address]-06-24 20:13:43 Test Item Value Reference Range Interpretation Comments Albumin Lvl (test code = Albumin Lvl) 3.9 3.5-5.[address]06-24 20:13:43 Test Item Value Reference Range Interpretation Comments Globulin (test code = Globulin) 3.9 2.7-4.[address]06-24 20:13:43 Test Item Value Reference Range Interpretation Comments A/G Ratio (test code = A/G Ratio) 1.0 1 0.7-1.6 [address]06-24 20:13:43 Test Item Value Reference Range Interpretation Comments ALANINE AMINOTRANSFERASE 28 See_Comment [A utomated message] (test code = ALANINE The sys tem which AMINOTRANSFERASE) generated this result transmitted ref erence range: <=65. Th e reference range was not used to int erpret this result as normal/abnormal . [place] 059912-06-24 20:13:43 Test Item Value Reference Range Interpretation Comments AST (test code = AST) 16 See_Comment [Auto mated message] The system which ge nerated this result transmit daphne reference range : <=37. The reference range was not used to interpr et this result as fatuma l/abnormal. [place] 059912-06-24 20:13:43 Test Item Value Reference Range Interpretation Comments Alk Phos (test code = Alk Phos) 78 39-136 [place] 059912-06-24 20:13:43 Test Item Value Reference Range Interpretation Comments Bili Total (test code = Bili Total) 0.4 0.2-1.3 [place] [address]-06-24 20:13:43 Test Item Value Reference Range Interpretation Comments Bili Direct (test code no gt See_Comment [Aut omated message] The = Bili Direct) system which generated this result tra nsmitted reference range : <=0.3. The reference r bertha was not used to int erpret this result as fatuma l/abnormal. [place] [address]-06-24 20:13:43 Test Item Value Reference Range Interpretation Comments Bili Indirect Unable to See_Comment [Automated (test code = Bili Calculate message] T he system Indirect) which generated this result transmitted reference range : <=1.0. The reference range was not used to interpret this result as normal/abnormal . [facility]2022-06-24 20:13:43 Test Item Value Reference Range Interpretation Comments Lipase Lvl (test code = Lipase Lvl) 203 73-393 [facility]awcqwVYCGCTUQSE2256-03-59 20:13:43 Test Item Value Reference Range Interpretation Comments WBC X 10x3 (test code = WBC X 10x3) 12.8 3.7-10.4 [facility] HospitalGsrokufPDAZGIJXDC9927-87-17 20:13:43 Test Item Value Reference Range Interpretation Comments RBC X 10x6 (test code = RBC X 10x6) 4.52 4.20-5.40 [facility] HospitalPnpogtpCXLQQDIDNN7363-56-44 20:13:43 Test Item Value Reference Range Interpretation Comments Hgb (test code = Hgb) 13.5 12.0-16.0 [facility] HospitalZbsccpxLTTGFTPQGE1136-49-63 20:13:43 Test Item Value Reference Range Interpretation Comments Hct (test code = Hct) 40.5 36.0-48.0 [facility] HospitalIibstebDNISHYXWOY4633-65-16 20:13:43 Test Item Value Reference Range Interpretation Comments MCV (test code = MCV) 89.5 80.0-98.0 [facility] HospitalXmxxdjgCNYOJIAGCH8046-40-37 20:13:43 Test Item Value Reference Range Interpretation Comments MCH (test code = MCH) 29.8 pg 27.0-31.0 [facility] HospitalVqufcxmWRLBYHBODW3066-02-83 20:13:43 Test Item Value Reference Range Interpretation Comments MCHC (test code = MCHC) 33.3 32.0-36.0 [facility] HospitalBgezhncJFQFDHFCZF3783-06-54 20:13:43 Test Item Value Reference Range Interpretation Comments RDW (test code = RDW) 15.3 11.5-14.5 [facility] HospitalVucyjzuXMYWGTGRDS4383-49-35 20:13:43 Test Item Value Reference Range Interpretation Comments Platelet (test code = Platelet) 373 133-450 [facility] HospitalHocoqqiMSVAVEQCDT4108-71-99 20:13:43 Test Item Value Reference Range Interpretation Comments MPV (test code = MPV) 8.1 7.4-10.4 [place] [address]-06-24 20:13:43 Test Item Value Reference Range Interpretation Comments Segs (test code = Segs) 65.2 45.0-75.0 [place] [address]-06-24 20:13:43 Test Item Value Reference Range Interpretation Comments Lymphocytes (test code = Lymphocytes) 21.9 20.0-40.0 [place] [address]-06-24 20:13:43 Test Item Value Reference Range Interpretation Comments Monocytes (test code = Monocytes) 10.3 2.0-12.0 [place] [address]-06-24 20:13:43 Test Item Value Reference Range Interpretation Comments Eosinophils (test code = 2.3 See_Comment [A utomated message] The Eosinophils) system which ge nerated this result tra nsmitted reference range : <=4.0. The reference r bertha was not used to int erpret this result as normal/abnormal . [place] [address]-06-24 20:13:43 Test Item Value Reference Range Interpretation Comments Basophils (test code = 0.3 See_Comment [Aut omated message] The Basophils) system which ge nerated this result tra nsmitted reference range : <=1.0. The reference r bertha was not used to int erpret this result as normal/abnormal . [place] 326662-06-24 20:13:43 Test Item Value Reference Range Interpretation Comments Neutrophils # (test code = Neutrophils 8.3 1.5-8.1 #) [place] [address]-06-24 20:13:43 Test Item Value Reference Range Interpretation Comments Lymphocytes # (test code = Lymphocytes 2.8 1.0-5.5 #) [place] [address]-06-24 20:13:43 Test Item Value Reference Range Interpretation Comments Monocytes # (test code 1.3 See_Comment [Aut omated message] The = Monocytes #) system which generated this result tra nsmitted reference range : <=0.8. The reference r bertha was not used to int erpret this result as normal/abnormal . [place] 326662-06-24 20:13:43 Test Item Value Reference Range Interpretation Comments Eosinophils # (test code 0.3 See_Comment [A utomated message] The = Eosinophils #) system [employer] h generated this result tra nsmitted reference range : <=0.5. The reference r bertha was not used to int erpret this result as normal/abnormal . [facility]2022-06-24 20:13:43 Test Item Value Reference Range Interpretation Comments Glucose Lvl (test code = Glucose Lvl) [facility]2022-06-24 20:13:43 Test Item Value Reference Range Interpretation Comments Glucose Lvl (test code = Glucose Lvl) [facility]2022-06-24 20:13:43 Test Item Value Reference Range Interpretation Comments BUN (test code = BUN) 01-01 [facility]2022-06-24 20:13:43 Test Item Value Reference Range Interpretation Comments BUN (test code = BUN) 01-01 [facility]2022-06-24 20:13:43 Test Item Value Reference Range Interpretation Comments Creatinine Lvl (test code = Creatinine 0.82 0.50-1.40 Lvl) [facility]2022-06-24 20:13:43 Test Item Value Reference Range Interpretation Comments Creatinine Lvl (test code = Creatinine 0.82 0.50-1.40 Lvl) [facility]2022-06-24 20:13:43 Test Item Value Reference Range Interpretation Comments Sodium Lvl (test code = Sodium Lvl) 139 135-145 [facility]2022-06-24 20:13:43 Test Item Value Reference Range Interpretation Comments Sodium Lvl (test code = Sodium Lvl) 139 135-145 [place] 059912-06-24 20:13:43 Test Item Value Reference Range Interpretation Comments Potassium Lvl (test code = Potassium 3.7 3.5-5.1 Lvl) [place] 059912-06-24 20:13:43 Test Item Value Reference Range Interpretation Comments Potassium Lvl (test code = Potassium 3.7 3.5-5.1 Lvl) [facility]2022-06-24 20:13:43 Test Item Value Reference Range Interpretation Comments Chloride Lvl (test code = Chloride Lvl) 107 95-109 [place] 059912-06-24 20:13:43 Test Item Value Reference Range Interpretation Comments Chloride Lvl (test code = Chloride Lvl) 107 95-109 [place] 059912-06-24 20:13:43 Test Item Value Reference Range Interpretation Comments CO2 (test code = CO2) [place] 059912-06-24 20:13:43 Test Item Value Reference Range Interpretation Comments CO2 (test code = CO2) [place] 059912-06-24 20:13:43 Test Item Value Reference Range Interpretation Comments Calcium Lvl (test code = Calcium Lvl) 8.8 8.5-10.5 [facility]2022-06-24 20:13:43 Test Item Value Reference Range Interpretation Comments AGAP (test code = AGAP) 10.7 10.0-20.0 [place] 059912-06-24 20:13:43 Test Item Value Reference Range Interpretation Comments Calcium Lvl (test code = Calcium Lvl) 8.8 8.5-10.5 [place] 059912-06-24 20:13:43 Test Item Value Reference Range Interpretation Comments eGFR (test code = eGFR) 94 [facility]2022-06-24 20:13:43 Test Item Value Reference Range Interpretation Comments AGAP (test code = AGAP) 10.7 10.0-20.0 [facility]2022-06-24 20:13:43 Test Item Value Reference Range Interpretation Comments Total Protein (test code = Total 7.8 6.4-8.4 Protein) [facility]2022-06-24 20:13:43 Test Item Value Reference Range Interpretation Comments eGFR (test code = eGFR) 94 [place] 059912-06-24 20:13:43 Test Item Value Reference Range Interpretation Comments Albumin Lvl (test code = Albumin Lvl) 3.9 3.5-5.0 [place] 059912-06-24 20:13:43 Test Item Value Reference Range Interpretation Comments Globulin (test code = Globulin) 3.9 2.7-4.2 [place] 059912-06-24 20:13:43 Test Item Value Reference Range Interpretation Comments Total Protein (test code = Total 7.8 6.4-8.4 Protein) [place] 059912-06-24 20:13:43 Test Item Value Reference Range Interpretation Comments A/G Ratio (test code = A/G Ratio) 1.0 1 0.7-1.6 [place] [address]-06-24 20:13:43 Test Item Value Reference Range Interpretation Comments Albumin Lvl (test code = Albumin Lvl) 3.9 3.5-5.0 [place] 059912-06-24 20:13:43 Test Item Value Reference Range Interpretation Comments ALANINE AMINOTRANSFERASE 28 See_Comment [A utomated message] (test code = ALANINE The sys tem which AMINOTRANSFERASE) generated this result transmitted ref erence range: <=65. Th e reference range was not used to int erpret this result as normal/abnormal . [facility] [id number] 20:13:43 Test Item Value Reference Range Interpretation Comments Globulin (test code = Globulin) 3.9 2.7-4.2 [facility] [id number] 20:13:43 Test Item Value Reference Range Interpretation Comments AST (test code = AST) 16 See_Comment [Auto mated message] The system which ge nerated this result transmit daphne reference range : <=37. The reference range was not used to interpr et this result as fatuma l/abnormal. [facility] [id number] 20:13:43 Test Item Value Reference Range Interpretation Comments A/G Ratio (test code = A/G Ratio) 1.0 1 0.7-1.6 [place] [address]-06-24 20:13:43 Test Item Value Reference Range Interpretation Comments Alk Phos (test code = Alk Phos) 78 39-136 [facility] [id number] 20:13:43 Test Item Value Reference Range Interpretation Comments Bili Total (test code = Bili Total) 0.4 0.2-1.3 [facility] [id number] 20:13:43 Test Item Value Reference Range Interpretation Comments ALANINE AMINOTRANSFERASE 28 See_Comment [A utomated message] (test code = ALANINE The sys tem which AMINOTRANSFERASE) generated this result transmitted ref erence range: <=65. Th e reference range was not used to int erpret this result as normal/abnormal . [facility] [employer] [id number] 20:13:43 Test Item Value Reference Range Interpretation Comments Bili Direct (test code no gt See_Comment [Aut omated message] The = Bili Direct) system which generated this result tra nsmitted reference range : <=0.3. The reference r bertha was not used to int erpret this result as fatuma l/abnormal. [facility]2022-06-24 20:13:43 Test Item Value Reference Range Interpretation Comments AST (test code = AST) 16 See_Comment [Auto mated message] The system which ge nerated this result transmit daphne reference range : <=37. The reference range was not used to interpr et this result as fatuma l/abnormal. [place] 059912-06-24 20:13:43 Test Item Value Reference Range Interpretation Comments Bili Indirect Unable to See_Comment [Automated (test code = Bili Calculate message] T he system Indirect) which generated this result transmitted reference range : <=1.0. The reference range was not used to interpret this result as normal/abnormal . [facility]2022-06-24 20:13:43 Test Item Value Reference Range Interpretation Comments Lipase Lvl (test code = Lipase Lvl) 203 73-393 [place] 059912-06-24 20:13:43 Test Item Value Reference Range Interpretation Comments Alk Phos (test code = Alk Phos) 78 39-136 [facility] HospitalFhmcozzBZVUTRWAUQ2051-81-09 20:13:43 Test Item Value Reference Range Interpretation Comments WBC X 10x3 (test code = WBC X 10x3) 12.8 3.7-10.4 [place] 059912-06-24 20:13:43 Test Item Value Reference Range Interpretation Comments Bili Total (test code = Bili Total) 0.4 0.2-1.3 [place] 326662-06-24 20:13:43 Test Item Value Reference Range Interpretation Comments RBC X 10x6 (test code = RBC X 10x6) 4.52 4.20-5.40 [place] 326662-06-24 20:13:43 Test Item Value Reference Range Interpretation Comments Hgb (test code = Hgb) 13.5 12.0-16.0 [place] 059912-06-24 20:13:43 Test Item Value Reference Range Interpretation Comments Bili Direct (test code no gt See_Comment [Aut omated message] The = Bili Direct) system which generated this result tra nsmitted reference range : <=0.3. The reference r bertha was not used to int erpret this result as fatuma l/abnormal. [facility] HospitalXxpnriuMJZGKYVCIY0526-25-65 20:13:43 Test Item Value Reference Range Interpretation Comments Hct (test code = Hct) 40.5 36.0-48.0 [facility]2022-06-24 20:13:43 Test Item Value Reference Range Interpretation Comments Bili Indirect Unable to See_Comment [Automated (test code = Bili Calculate message] T he system Indirect) which generated this result transmitted reference range : <=1.0. The reference range was not used to interpret this result as normal/abnormal . [facility] HospitalWngnuubCYXJMZMFUE7760-84-16 20:13:43 Test Item Value Reference Range Interpretation Comments MCV (test code = MCV) 89.5 80.0-98.0 [facility]2022-06-24 20:13:43 Test Item Value Reference Range Interpretation Comments Lipase Lvl (test code = Lipase Lvl) 203 73-393 [facility] HospitalLsyevhpDGWUQIOSWE7772-19-67 20:13:43 Test Item Value Reference Range Interpretation Comments MCH (test code = MCH) 29.8 pg 27.0-31.0 [facility] HospitalUeoqbbkCHHQUHDNNL0282-76-74 20:13:43 Test Item Value Reference Range Interpretation Comments WBC X 10x3 (test code = WBC X 10x3) 12.8 3.7-10.4 [place] 326662-06-24 20:13:43 Test Item Value Reference Range Interpretation Comments MCHC (test code = MCHC) 33.3 32.0-36.0 [place] 326662-06-24 20:13:43 Test Item Value Reference Range Interpretation Comments RBC X 10x6 (test code = RBC X 10x6) 4.52 4.20-5.40 [facility] HospitalMujtnmwZVTEDQULOA2916-91-67 20:13:43 Test Item Value Reference Range Interpretation Comments RDW (test code = RDW) 15.3 11.5-14.5 [place] 326662-06-24 20:13:43 Test Item Value Reference Range Interpretation Comments Hgb (test code = Hgb) 13.5 12.0-16.0 [facility] HospitalBsnnpmeXLXDXQIPDN3964-66-60 20:13:43 Test Item Value Reference Range Interpretation Comments Platelet (test code = Platelet) 373 133-535 [facility] HospitalGkzedmeWLWAFZDOHE8907-38-69 20:13:43 Test Item Value Reference Range Interpretation Comments Hct (test code = Hct) 40.5 36.0-48.0 [place] 326662-06-24 20:13:43 Test Item Value Reference Range Interpretation Comments MPV (test code = MPV) 8.1 7.4-10.4 [facility] HospitalLmtrkptCOEMOOTXWT7499-03-30 20:13:43 Test Item Value Reference Range Interpretation Comments MCV (test code = MCV) 89.5 80.0-98.0 [place] 326662-06-24 20:13:43 Test Item Value Reference Range Interpretation Comments Segs (test code = Segs) 65.2 45.0-75.0 [facility] HospitalKdwdzwyUIMEGVNOWO5406-57-27 20:13:43 Test Item Value Reference Range Interpretation Comments MCH (test code = MCH) 29.8 pg 27.0-31.0 [facility] HospitalSlwyoysWHLXHDPPMW4808-22-66 20:13:43 Test Item Value Reference Range Interpretation Comments Lymphocytes (test code = Lymphocytes) 21.9 20.0-40.0 [facility] HospitalDlauhvwQWKISXOCRN7503-40-27 20:13:43 Test Item Value Reference Range Interpretation Comments MCHC (test code = MCHC) 33.3 32.0-36.0 [facility] HospitalEmsfoemCJPXXAEUUG8354-57-17 20:13:43 Test Item Value Reference Range Interpretation Comments Monocytes (test code = Monocytes) 10.3 2.0-12.0 [place] 326662-06-24 20:13:43 Test Item Value Reference Range Interpretation Comments RDW (test code = RDW) 15.3 11.5-14.5 [facility] HospitalQpzlyybWRPTMJIKFV0934-15-87 20:13:43 Test Item Value Reference Range Interpretation Comments Platelet (test code = Platelet) 373 133-169 [facility] HospitalEzesmhjSOTNYARSBA0902-81-97 20:13:43 Test Item Value Reference Range Interpretation Comments Eosinophils (test code = 2.3 See_Comment [A utomated message] The Eosinophils) system which ge nerated this result tra nsmitted reference range : <=4.0. The reference r bertha was not used to int erpret this result as normal/abnormal . [place] [address]-06-24 20:13:43 Test Item Value Reference Range Interpretation Comments MPV (test code = MPV) 8.1 7.4-10.4 [place] 326662-06-24 20:13:43 Test Item Value Reference Range Interpretation Comments Basophils (test code = 0.3 See_Comment [Aut omated message] The Basophils) system which ge nerated this result tra nsmitted reference range : <=1.0. The reference r bertha was not used to int erpret this result as normal/abnormal . [place] 326662-06-24 20:13:43 Test Item Value Reference Range Interpretation Comments Segs (test code = Segs) 65.2 45.0-75.0 [place] [address]-06-24 20:13:43 Test Item Value Reference Range Interpretation Comments Neutrophils # (test code = Neutrophils 8.3 1.5-8.1 #) [place] 326662-06-24 20:13:43 Test Item Value Reference Range Interpretation Comments Lymphocytes (test code = Lymphocytes) 21.9 20.0-40.0 [place] [address]-06-24 20:13:43 Test Item Value Reference Range Interpretation Comments Lymphocytes # (test code = Lymphocytes 2.8 1.0-5.5 #) [place] [address]-06-24 20:13:43 Test Item Value Reference Range Interpretation Comments Monocytes (test code = Monocytes) 10.3 2.0-12.0 [place] [address]-06-24 20:13:43 Test Item Value Reference Range Interpretation Comments Monocytes # (test code 1.3 See_Comment [Aut omated message] The = Monocytes #) system which generated this result tra nsmitted reference range : <=0.8. The reference r bertha was not used to int erpret this result as normal/abnormal . [place] [address]-06-24 20:13:43 Test Item Value Reference Range Interpretation Comments Eosinophils (test code = 2.3 See_Comment [A utomated message] The Eosinophils) system which ge nerated this result tra nsmitted reference range : <=4.0. The reference r bertha was not used to int erpret this result as normal/abnormal . [place] [address]-06-24 20:13:43 Test Item Value Reference Range Interpretation Comments Eosinophils # (test code 0.3 See_Comment [A utomated message] The = Eosinophils #) system [employer] generated this result tra nsmitted reference range : <=0.5. The reference r bertha was not used to int erpret this result as normal/abnormal . [place] 326662-06-24 20:13:43 Test Item Value Reference Range Interpretation Comments Basophils (test code = 0.3 See_Comment [Aut omated message] The Basophils) system which ge nerated this result tra nsmitted reference range : <=1.0. The reference r bertha was not used to int erpret this result as normal/abnormal . [place] [address]-06-24 20:13:43 Test Item Value Reference Range Interpretation Comments Neutrophils # (test code = Neutrophils 8.3 1.5-8.1 #) [place] 326662-06-24 20:13:43 Test Item Value Reference Range Interpretation Comments Lymphocytes # (test code = Lymphocytes 2.8 1.0-5.5 #) [place] 326662-06-24 20:13:43 Test Item Value Reference Range Interpretation Comments Monocytes # (test code 1.3 See_Comment [Aut omated message] The = Monocytes #) system which generated this result tra nsmitted reference range : <=0.8. The reference r bertha was not used to int erpret this result as normal/abnormal . [place] [address]-06-24 20:13:43 Test Item Value Reference Range Interpretation Comments Eosinophils # (test code 0.3 See_Comment [A utomated message] The = Eosinophils #) system [employer] generated this result tra nsmitted reference range : <=0.5. The reference r bertha was not used to int erpret this result as normal/abnormal . [facility] [id number] 20:13:43 Test Item Value Reference Range Interpretation Comments Glucose Lvl (test code = Glucose Lvl) 88 70-99 [facility] [id number] 20:13:43 Test Item Value Reference Range Interpretation Comments BUN (test code = BUN) 16 7-22 [facility]2022-06-24 20:13:43 Test Item Value Reference Range Interpretation Comments Creatinine Lvl (test code = Creatinine 0.82 0.50-1.40 Lvl) [facility]2022-06-24 20:13:43 Test Item Value Reference Range Interpretation Comments Sodium Lvl (test code = Sodium Lvl) 139 135-145 [place] 059912-06-24 20:13:43 Test Item Value Reference Range Interpretation Comments Potassium Lvl (test code = Potassium 3.7 3.5-5.1 Lvl) [facility]2022-06-24 20:13:43 Test Item Value Reference Range Interpretation Comments Chloride Lvl (test code = Chloride Lvl) 107 95-109 [facility]2022-06-24 20:13:43 Test Item Value Reference Range Interpretation Comments CO2 (test code = CO2) 25 24-32 [place] 059912-06-24 20:13:43 Test Item Value Reference Range Interpretation Comments Calcium Lvl (test code = Calcium Lvl) 8.8 8.5-10.5 [place] 059912-06-24 20:13:43 Test Item Value Reference Range Interpretation Comments AGAP (test code = AGAP) 10.7 10.0-20.0 [place] 059912-06-24 20:13:43 Test Item Value Reference Range Interpretation Comments eGFR (test code = eGFR) 94 [place] 059912-06-24 20:13:43 Test Item Value Reference Range Interpretation Comments Total Protein (test code = Total 7.8 6.4-8.4 Protein) [place] 059912-06-24 20:13:43 Test Item Value Reference Range Interpretation Comments Albumin Lvl (test code = Albumin Lvl) 3.9 3.5-5.0 [place] 059912-06-24 20:13:43 Test Item Value Reference Range Interpretation Comments Globulin (test code = Globulin) 3.9 2.7-4.2 [place] 059912-06-24 20:13:43 Test Item Value Reference Range Interpretation Comments A/G Ratio (test code = A/G Ratio) 1.0 1 0.7-1.6 [facility]2022-06-24 20:13:43 Test Item Value Reference Range Interpretation Comments ALANINE AMINOTRANSFERASE 28 See_Comment [A utomated message] (test code = ALANINE The sys tem which AMINOTRANSFERASE) generated this result transmitted ref erence range: <=65. Th e reference range was not used to int erpret this result as normal/abnormal . [facility] [id number] 20:13:43 Test Item Value Reference Range Interpretation Comments AST (test code = AST) 16 See_Comment [Auto mated message] The system which ge nerated this result transmit daphne reference range : <=37. The reference range was not used to interpr et this result as fatuma l/abnormal. [facility] [id number] 20:13:43 Test Item Value Reference Range Interpretation Comments Alk Phos (test code = Alk Phos) 78 39-136 [facility] [id number] 20:13:43 Test Item Value Reference Range Interpretation Comments Bili Total (test code = Bili Total) 0.4 0.2-1.3 [facility] [id number] 20:13:43 Test Item Value Reference Range Interpretation Comments Bili Direct (test code no gt See_Comment [Aut omated message] The = Bili Direct) system which generated this result tra nsmitted reference range : <=0.3. The reference r bertha was not used to int erpret this result as fatuma l/abnormal. [facility] [id number] 20:13:43 Test Item Value Reference Range Interpretation Comments Glucose Lvl (test code = Glucose Lvl) 88 70-99 [facility] [id number] 20:13:43 Test Item Value Reference Range Interpretation Comments BUN (test code = BUN) 16 7-22 [facility] [id number] 20:13:43 Test Item Value Reference Range Interpretation Comments Creatinine Lvl (test code = Creatinine 0.82 0.50-1.40 Lvl) [facility] [id number] 20:13:43 Test Item Value Reference Range Interpretation Comments Sodium Lvl (test code = Sodium Lvl) 139 135-145 [facility] [id number] 20:13:43 Test Item Value Reference Range Interpretation Comments Potassium Lvl (test code = Potassium 3.7 3.5-5.1 Lvl) [place] 059912-06-24 20:13:43 Test Item Value Reference Range Interpretation Comments Bili Indirect Unable to See_Comment [Automated (test code = Bili Calculate message] T he system Indirect) which generated this result transmitted reference range : <=1.0. The reference range was not used to interpret this result as normal/abnormal . [place] 059912-06-24 20:13:43 Test Item Value Reference Range Interpretation Comments Chloride Lvl (test code = Chloride Lvl) 107 95-109 [place] 059912-06-24 20:13:43 Test Item Value Reference Range Interpretation Comments CO2 (test code = CO2) 25 24-32 [place] 059912-06-24 20:13:43 Test Item Value Reference Range Interpretation Comments Calcium Lvl (test code = Calcium Lvl) 8.8 8.5-10.5 [place] 059912-06-24 20:13:43 Test Item Value Reference Range Interpretation Comments AGAP (test code = AGAP) 10.7 10.0-20.0 [place] 059912-06-24 20:13:43 Test Item Value Reference Range Interpretation Comments eGFR (test code = eGFR) 94 [place] 059912-06-24 20:13:43 Test Item Value Reference Range Interpretation Comments Total Protein (test code = Total 7.8 6.4-8.4 Protein) [place] 059912-06-24 20:13:43 Test Item Value Reference Range Interpretation Comments Albumin Lvl (test code = Albumin Lvl) 3.9 3.5-5.0 [place] 059912-06-24 20:13:43 Test Item Value Reference Range Interpretation Comments Globulin (test code = Globulin) 3.9 2.7-4.2 [place] 059912-06-24 20:13:43 Test Item Value Reference Range Interpretation Comments A/G Ratio (test code = A/G Ratio) 1.0 1 0.7-1.6 [place] 059912-06-24 20:13:43 Test Item Value Reference Range Interpretation Comments ALANINE AMINOTRANSFERASE 28 See_Comment [A utomated message] (test code = ALANINE The sys tem which AMINOTRANSFERASE) generated this result transmitted ref erence range: <=65. Th e reference range was not used to int erpret this result as normal/abnormal . [facility] [id number] 20:13:43 Test Item Value Reference Range Interpretation Comments Lipase Lvl (test code = Lipase Lvl) 73-393 [facility]2022-06-24 20:13:43 Test Item Value Reference Range Interpretation Comments AST (test code = AST) 16 See_Comment [Auto mated message] The system which ge nerated this result transmit daphne reference range : <=37. The reference range was not used to interpr et this result as fatuma l/abnormal. [facility] [id number]:13:43 Test Item Value Reference Range Interpretation Comments Alk Phos (test code = Alk Phos) 78 39-136 [place] 059912-06-24 20:13:43 Test Item Value Reference Range Interpretation Comments Bili Total (test code = Bili Total) 0.4 0.2-1.3 [facility]2022-06-24 20:13:43 Test Item Value Reference Range Interpretation Comments Bili Direct (test code no gt See_Comment [Aut omated message] The = Bili Direct) system which generated this result tra nsmitted reference range : <=0.3. The reference r bertha was not used to int erpret this result as fatuma l/abnormal. [facility] [id number] 20:13:43 Test Item Value Reference Range Interpretation Comments Bili Indirect Unable to See_Comment [Automated (test code = Bili Calculate message] T he system Indirect) which generated this result transmitted reference range : <=1.0. The reference range was not used to interpret this result as normal/abnormal . [facility] [id number] 20:13:43 Test Item Value Reference Range Interpretation Comments Lipase Lvl (test code = Lipase Lvl) 73393 [facility]em[facility]ewOSHHVQOTPO9469[facility]76-26 20:13:43 Test Item Value Reference Range Interpretation Comments WBC X 10x3 (test code = WBC X 10x3) 12.8 3.7-10.4 [facility] HospitalHgsmxmlPDPKPWAEXF2918-91-74 20:13:43 Test Item Value Reference Range Interpretation Comments RBC X 10x6 (test code = RBC X 10x6) 4.52 4.20-5.40 [facility]PptjgttYXPMFKGCNG1309-43-35 20:13:43 Test Item Value Reference Range Interpretation Comments Hgb (test code = Hgb) 13.5 12.0-16.0 [place] 326662-06-24 20:13:43 Test Item Value Reference Range Interpretation Comments Hct (test code = Hct) 40.5 36.0-48.0 [place] 326662-06-24 20:13:43 Test Item Value Reference Range Interpretation Comments WBC X 10x3 (test code = WBC X 10x3) 12.8 3.7-10.4 [place] 326662-06-24 20:13:43 Test Item Value Reference Range Interpretation Comments MCV (test code = MCV) 89.5 80.0-98.0 [place] 326662-06-24 20:13:43 Test Item Value Reference Range Interpretation Comments MCH (test code = MCH) 29.8 pg 27.0-31.0 [place] 326662-06-24 20:13:43 Test Item Value Reference Range Interpretation Comments MCHC (test code = MCHC) 33.3 32.0-36.0 [facility] HospitalSvjuvdpUJKWFQDSHT8319-46-47 20:13:43 Test Item Value Reference Range Interpretation Comments RDW (test code = RDW) 15.3 11.5-14.5 [place] 326662-06-24 20:13:43 Test Item Value Reference Range Interpretation Comments Platelet (test code = Platelet) 373 133-450 [place] 326662-06-24 20:13:43 Test Item Value Reference Range Interpretation Comments MPV (test code = MPV) 8.1 7.4-10.4 [place] [address]-06-24 20:13:43 Test Item Value Reference Range Interpretation Comments Segs (test code = Segs) 65.2 45.0-75.0 [place] 326662-06-24 20:13:43 Test Item Value Reference Range Interpretation Comments Lymphocytes (test code = Lymphocytes) 21.9 20.0-40.0 [facility] HospitalFtcuqwpOEBPGMNBRD6871-01-87 20:13:43 Test Item Value Reference Range Interpretation Comments Monocytes (test code = Monocytes) 10.3 2.0-12.0 [place] 326662-06-24 20:13:43 Test Item Value Reference Range Interpretation Comments Eosinophils (test code = 2.3 See_Comment [A utomated message] The Eosinophils) system which ge nerated this result tra nsmitted reference range : <=4.0. The reference r bertha was not used to int erpret this result as normal/abnormal . [place] 326662-06-24 20:13:43 Test Item Value Reference Range Interpretation Comments RBC X 10x6 (test code = RBC X 10x6) 4.52 4.20-5.40 [place] 326662-06-24 20:13:43 Test Item Value Reference Range Interpretation Comments Basophils (test code = 0.3 See_Comment [Aut omated message] The Basophils) system which ge nerated this result tra nsmitted reference range : <=1.0. The reference r bertha was not used to int erpret this result as normal/abnormal . [place] 326662-06-24 20:13:43 Test Item Value Reference Range Interpretation Comments Neutrophils # (test code = Neutrophils 8.3 1.5-8.1 #) [place] [address]-06-24 20:13:43 Test Item Value Reference Range Interpretation Comments Lymphocytes # (test code = Lymphocytes 2.8 1.0-5.5 #) [place] [address]-06-24 20:13:43 Test Item Value Reference Range Interpretation Comments Monocytes # (test code 1.3 See_Comment [Aut omated message] The = Monocytes #) system which generated this result tra nsmitted reference range : <=0.8. The reference r bertha was not used to int erpret this result as normal/abnormal . [place] [address]-06-24 20:13:43 Test Item Value Reference Range Interpretation Comments Eosinophils # (test code 0.3 See_Comment [A utomated message] The = Eosinophils #) system whic h generated this result tra nsmitted reference range : <=0.5. The reference r bertha was not used to int erpret this result as normal/abnormal . [place] 326662-06-24 20:13:43 Test Item Value Reference Range Interpretation Comments Hgb (test code = Hgb) 13.5 12.0-16.0 [facility] HospitalIcmvcdoIMZPOGNZNC7003-82-91 20:13:43 Test Item Value Reference Range Interpretation Comments Hct (test code = Hct) 40.5 36.0-48.0 [facility] HospitalSthgipuKLRWUYQLDH4859-60-66 20:13:43 Test Item Value Reference Range Interpretation Comments MCV (test code = MCV) 89.5 80.0-98.0 [facility] HospitalTilrveyUOTVDMLHPM4574-96-49 20:13:43 Test Item Value Reference Range Interpretation Comments MCH (test code = MCH) 29.8 pg 27.0-31.0 [facility] HospitalVjveajoWXLYQMXXGE2342-69-47 20:13:43 Test Item Value Reference Range Interpretation Comments MCHC (test code = MCHC) 33.3 32.0-36.0 [facility] HospitalVsmmttkQGYEIFACSN7503-13-57 20:13:43 Test Item Value Reference Range Interpretation Comments RDW (test code = RDW) 15.3 11.5-14.5 [facility] HospitalFsflpvvEXLXOFSRVK9018-07-03 20:13:43 Test Item Value Reference Range Interpretation Comments Platelet (test code = Platelet) 373 133-450 [facility] HospitalVhufmcrOBDGVMTQGM3724-01-86 20:13:43 Test Item Value Reference Range Interpretation Comments MPV (test code = MPV) 8.1 7.4-10.4 [facility] HospitalIeythznKGFMURWGMF0237-43-37 20:13:43 Test Item Value Reference Range Interpretation Comments Segs (test code = Segs) 65.2 45.0-75.0 [facility] HospitalImyfufiIRVUOXVIGF7903-74-56 20:13:43 Test Item Value Reference Range Interpretation Comments Lymphocytes (test code = Lymphocytes) 21.9 20.0-40.0 [facility] HospitalDastoehFBWJKAQLAY1220-45-35 20:13:43 Test Item Value Reference Range Interpretation Comments Monocytes (test code = Monocytes) 10.3 2.0-12.0 [place] 326662-06-24 20:13:43 Test Item Value Reference Range Interpretation Comments Eosinophils (test code = 2.3 See_Comment [A utomated message] The Eosinophils) system which ge nerated this result tra nsmitted reference range : <=4.0. The reference r bertha was not used to int erpret this result as normal/abnormal . [place] 059912-06-24 20:13:43 Test Item Value Reference Range Interpretation Comments Glucose Lvl (test code = Glucose Lvl) 88 70-99 [place] 059912-06-24 20:13:43 Test Item Value Reference Range Interpretation Comments BUN (test code = BUN) 16 7-22 [place] 326662-06-24 20:13:43 Test Item Value Reference Range Interpretation Comments Basophils (test code = 0.3 See_Comment [Aut omated message] The Basophils) system which ge nerated this result tra nsmitted reference range : <=1.0. The reference r bertha was not used to int erpret this result as normal/abnormal . [place] 059912-06-24 20:13:43 Test Item Value Reference Range Interpretation Comments Creatinine Lvl (test code = Creatinine 0.82 0.50-1.40 Lvl) [place] 059912-06-24 20:13:43 Test Item Value Reference Range Interpretation Comments Sodium Lvl (test code = Sodium Lvl) 139 135-145 [place] 059912-06-24 20:13:43 Test Item Value Reference Range Interpretation Comments Potassium Lvl (test code = Potassium 3.7 3.5-5.1 Lvl) [place] 059912-06-24 20:13:43 Test Item Value Reference Range Interpretation Comments Chloride Lvl (test code = Chloride Lvl) 107 95-109 [place] 059912-06-24 20:13:43 Test Item Value Reference Range Interpretation Comments CO2 (test code = CO2) 25 24-32 [place] 326662-06-24 20:13:43 Test Item Value Reference Range Interpretation Comments Neutrophils # (test code = Neutrophils 8.3 1.5-8.1 #) [place] 059912-06-24 20:13:43 Test Item Value Reference Range Interpretation Comments Calcium Lvl (test code = Calcium Lvl) 8.8 8.5-10.5 [place] 059912-06-24 20:13:43 Test Item Value Reference Range Interpretation Comments AGAP (test code = AGAP) 10.7 10.0-20.0 [place] 059912-06-24 20:13:43 Test Item Value Reference Range Interpretation Comments eGFR (test code = eGFR) 94 [facility]2022-06-24 20:13:43 Test Item Value Reference Range Interpretation Comments Total Protein (test code = Total 7.8 6.4-8.4 Protein) [place] 059912-06-24 20:13:43 Test Item Value Reference Range Interpretation Comments Albumin Lvl (test code = Albumin Lvl) 3.9 3.5-5.0 [place] 326662-06-24 20:13:43 Test Item Value Reference Range Interpretation Comments Lymphocytes # (test code = Lymphocytes 2.8 1.0-5.5 #) [place] 059912-06-24 20:13:43 Test Item Value Reference Range Interpretation Comments Globulin (test code = Globulin) 3.9 2.7-4.2 [place] 059912-06-24 20:13:43 Test Item Value Reference Range Interpretation Comments A/G Ratio (test code = A/G Ratio) 1.0 1 0.7-1.6 [place] 059912-06-24 20:13:43 Test Item Value Reference Range Interpretation Comments ALANINE AMINOTRANSFERASE 28 See_Comment [A utomated message] (test code = ALANINE The sys tem which AMINOTRANSFERASE) generated this result transmitted ref erence range: <=65. Th e reference range was not used to int erpret this result as normal/abnormal . [place] 059912-06-24 20:13:43 Test Item Value Reference Range Interpretation Comments AST (test code = AST) 16 See_Comment [Auto mated message] The system which ge nerated this result transmit daphne reference range : <=37. The reference range was not used to interpr et this result as fatuma l/abnormal. [place] 059912-06-24 20:13:43 Test Item Value Reference Range Interpretation Comments Alk Phos (test code = Alk Phos) 78 39-136 [place] [address]-06-24 20:13:43 Test Item Value Reference Range Interpretation Comments Monocytes # (test code 1.3 See_Comment [Aut omated message] The = Monocytes #) system which generated this result tra nsmitted reference range : <=0.8. The reference r bertha was not used to int erpret this result as normal/abnormal . [address]06-24 20:13:43 Test Item Value Reference Range Interpretation Comments Bili Total (test code = Bili Total) 0.4 0.2-1.3 [place] 059912-06-24 20:13:43 Test Item Value Reference Range Interpretation Comments Bili Direct (test code no gt See_Comment [Aut omated message] The = Bili Direct) system which generated this result tra nsmitted reference range : <=0.3. The reference r bertha was not used to int erpret this result as fatuma l/abnormal. [place] 059912-06-24 20:13:43 Test Item Value Reference Range Interpretation Comments Bili Indirect Unable to See_Comment [Automated (test code = Bili Calculate message] T he system Indirect) which generated this result transmitted reference range : <=1.0. The reference range was not used to interpret this result as normal/abnormal . [place] 059912-06-24 20:13:43 Test Item Value Reference Range Interpretation Comments Lipase Lvl (test code = Lipase Lvl) 203 73-393 [place] 326662-06-24 20:13:43 Test Item Value Reference Range Interpretation Comments WBC X 10x3 (test code = WBC X 10x3) 12.8 3.7-10.4 [place] 326662-06-24 20:13:43 Test Item Value Reference Range Interpretation Comments Eosinophils # (test code 0.3 See_Comment [A utomated message] The = Eosinophils #) system whic h generated this result tra nsmitted reference range : <=0.5. The reference r bertha was not used to int erpret this result as normal/abnormal . [place] 326662-06-24 20:13:43 Test Item Value Reference Range Interpretation Comments RBC X 10x6 (test code = RBC X 10x6) 4.52 4.20-5.40 [place] 326662-06-24 20:13:43 Test Item Value Reference Range Interpretation Comments Hgb (test code = Hgb) 13.5 12.0-16.0 [place] 326662-06-24 20:13:43 Test Item Value Reference Range Interpretation Comments Hct (test code = Hct) 40.5 36.0-48.0 [address]06-24 20:13:43 Test Item Value Reference Range Interpretation Comments MCV (test code = MCV) 89.5 80.0-98.0 [place] [address]-06-24 20:13:43 Test Item Value Reference Range Interpretation Comments MCH (test code = MCH) 29.8 pg 27.0-31.0 [place] [address]-06-24 20:13:43 Test Item Value Reference Range Interpretation Comments MCHC (test code = MCHC) 33.3 32.0-36.0 [place] [address]-06-24 20:13:43 Test Item Value Reference Range Interpretation Comments RDW (test code = RDW) 15.3 11.5-14.5 [place] [address]-06-24 20:13:43 Test Item Value Reference Range Interpretation Comments Platelet (test code = Platelet) 373 133-450 [place] 326662-06-24 20:13:43 Test Item Value Reference Range Interpretation Comments MPV (test code = MPV) 8.1 7.4-10.4 [place] [address]-06-24 20:13:43 Test Item Value Reference Range Interpretation Comments Segs (test code = Segs) 65.2 45.0-75.0 [place] [address]-06-24 20:13:43 Test Item Value Reference Range Interpretation Comments Lymphocytes (test code = Lymphocytes) 21.9 20.0-40.0 [place] [address]-06-24 20:13:43 Test Item Value Reference Range Interpretation Comments Monocytes (test code = Monocytes) 10.3 2.0-12.0 [place] [address]-06-24 20:13:43 Test Item Value Reference Range Interpretation Comments Eosinophils (test code = 2.3 See_Comment [A utomated message] The Eosinophils) system which ge nerated this result tra nsmitted reference range : <=4.0. The reference r bertha was not used to int erpret this result as normal/abnormal . [place] [address]-06-24 20:13:43 Test Item Value Reference Range Interpretation Comments Basophils (test code = 0.3 See_Comment [Aut omated message] The Basophils) system which ge nerated this result tra nsmitted reference range : <=1.0. The reference r bertha was not used to int erpret this result as normal/abnormal . [place] [address]-06-24 20:13:43 Test Item Value Reference Range Interpretation Comments Neutrophils # (test code = Neutrophils 8.3 1.5-8.1 #) [place] [address]-06-24 20:13:43 Test Item Value Reference Range Interpretation Comments Lymphocytes # (test code = Lymphocytes 2.8 1.0-5.5 #) [place] [address]-06-24 20:13:43 Test Item Value Reference Range Interpretation Comments Monocytes # (test code 1.3 See_Comment [Aut omated message] The = Monocytes #) system which generated this result tra nsmitted reference range : <=0.8. The reference r bertha was not used to int erpret this result as normal/abnormal . [place] [address]-06-24 20:13:43 Test Item Value Reference Range Interpretation Comments Eosinophils # (test code 0.3 See_Comment [A utomated message] The = Eosinophils #) system whic h generated this result tra nsmitted reference range : <=0.5. The reference r bretha was not used to int erpret this result as normal/abnormal . [place] 059912-06-24 20:13:43 Test Item Value Reference Range Interpretation Comments Glucose Lvl (test code = Glucose Lvl) 88 70-99 [place] [address]-06-24 20:13:43 Test Item Value Reference Range Interpretation Comments BUN (test code = BUN) 16 7-22 [place] [address]-06-24 20:13:43 Test Item Value Reference Range Interpretation Comments Creatinine Lvl (test code = Creatinine 0.82 0.50-1.40 Lvl) [place] 059912-06-24 20:13:43 Test Item Value Reference Range Interpretation Comments Sodium Lvl (test code = Sodium Lvl) 139 135-145 [place] [address]-06-24 20:13:43 Test Item Value Reference Range Interpretation Comments Potassium Lvl (test code = Potassium 3.7 3.5-5.1 Lvl) [place] 059912-06-24 20:13:43 Test Item Value Reference Range Interpretation Comments Chloride Lvl (test code = Chloride Lvl) 107 95-109 [facility]2022-06-24 20:13:43 Test Item Value Reference Range Interpretation Comments CO2 (test code = CO2) [place] 059912-06-24 20:13:43 Test Item Value Reference Range Interpretation Comments Calcium Lvl (test code = Calcium Lvl) 8.8 8.5-10.5 [place] 059912-06-24 20:13:43 Test Item Value Reference Range Interpretation Comments AGAP (test code = AGAP) 10.7 10.0-20.0 [place] 059912-06-24 20:13:43 Test Item Value Reference Range Interpretation Comments Glucose Lvl (test code = Glucose Lvl) 88 70-99 [facility]2022-06-24 20:13:43 Test Item Value Reference Range Interpretation Comments BUN (test code = BUN) 16 01-01 [place] 059912-06-24 20:13:43 Test Item Value Reference Range Interpretation Comments Creatinine Lvl (test code = Creatinine 0.82 0.50-1.40 Lvl) [facility]2022-06-24 20:13:43 Test Item Value Reference Range Interpretation Comments Sodium Lvl (test code = Sodium Lvl) 139 135-145 [facility]2022-06-24 20:13:43 Test Item Value Reference Range Interpretation Comments Potassium Lvl (test code = Potassium 3.7 3.5-5.1 Lvl) [place] 059912-06-24 20:13:43 Test Item Value Reference Range Interpretation Comments Chloride Lvl (test code = Chloride Lvl) 107 95-109 [facility]2022-06-24 20:13:43 Test Item Value Reference Range Interpretation Comments CO2 (test code = CO2) [place] 059912-06-24 20:13:43 Test Item Value Reference Range Interpretation Comments Calcium Lvl (test code = Calcium Lvl) 8.8 8.5-10.5 [place] 059912-06-24 20:13:43 Test Item Value Reference Range Interpretation Comments AGAP (test code = AGAP) 10.7 10.0-20.0 [place] 059912-06-24 20:13:43 Test Item Value Reference Range Interpretation Comments eGFR (test code = eGFR) 94 [facility]2022-06-24 20:13:43 Test Item Value Reference Range Interpretation Comments eGFR (test code = eGFR) 94 [place] 059912-06-24 20:13:43 Test Item Value Reference Range Interpretation Comments Total Protein (test code = Total 7.8 6.4-8.4 Protein) [place] 059912-06-24 20:13:43 Test Item Value Reference Range Interpretation Comments Albumin Lvl (test code = Albumin Lvl) 3.9 3.5-5.0 [place] 059912-06-24 20:13:43 Test Item Value Reference Range Interpretation Comments Globulin (test code = Globulin) 3.9 2.7-4.2 [place] 059912-06-24 20:13:43 Test Item Value Reference Range Interpretation Comments A/G Ratio (test code = A/G Ratio) 1.0 1 0.7-1.6 [place] 059912-06-24 20:13:43 Test Item Value Reference Range Interpretation Comments ALANINE AMINOTRANSFERASE 28 See_Comment [A utomated message] (test code = ALANINE The sys tem which AMINOTRANSFERASE) generated this result transmitted ref erence range: <=65. Th e reference range was not used to int erpret this result as normal/abnormal . [place] 059912-06-24 20:13:43 Test Item Value Reference Range Interpretation Comments AST (test code = AST) 16 See_Comment [Auto mated message] The system which ge nerated this result transmit daphne reference range : <=37. The reference range was not used to interpr et this result as fatuma l/abnormal. [place] 059912-06-24 20:13:43 Test Item Value Reference Range Interpretation Comments Alk Phos (test code = Alk Phos) 78 39-136 [place] 059912-06-24 20:13:43 Test Item Value Reference Range Interpretation Comments Bili Total (test code = Bili Total) 0.4 0.2-1.3 [place] 059912-06-24 20:13:43 Test Item Value Reference Range Interpretation Comments Bili Direct (test code no gt See_Comment [Aut omated message] The = Bili Direct) system which generated this result tra nsmitted reference range : <=0.3. The reference r bertha was not used to int erpret this result as fatuma l/abnormal. [facility]2022-06-24 20:13:43 Test Item Value Reference Range Interpretation Comments Total Protein (test code = Total 7.8 6.4-8.4 Protein) [facility]2022-06-24 20:13:43 Test Item Value Reference Range Interpretation Comments Bili Indirect Unable to See_Comment [Automated (test code = Bili Calculate message] T he system Indirect) which generated this result transmitted reference range : <=1.0. The reference range was not used to interpret this result as normal/abnormal . [facility]2022-06-24 20:13:43 Test Item Value Reference Range Interpretation Comments Lipase Lvl (test code = Lipase Lvl) 203 73-393 [facility]nnviduDHXBDSIUKI3581-94-[facility] 20:13:43 Test Item Value Reference Range Interpretation Comments WBC X 10x3 (test code = WBC X 10x3) 12.8 3.7-10.4 [facility] HospitalZnvpcruNWCORKSRAL7638-92-20 20:13:43 Test Item Value Reference Range Interpretation Comments RBC X 10x6 (test code = RBC X 10x6) 4.52 4.20-5.40 [facility] HospitalGnwfowdGMKGOFSDVZ9881-85-67 20:13:43 Test Item Value Reference Range Interpretation Comments Hgb (test code = Hgb) 13.5 12.0-16.0 [place] 326662-06-24 20:13:43 Test Item Value Reference Range Interpretation Comments Hct (test code = Hct) 40.5 36.0-48.0 [place] 326662-06-24 20:13:43 Test Item Value Reference Range Interpretation Comments MCV (test code = MCV) 89.5 80.0-98.0 [place] 326662-06-24 20:13:43 Test Item Value Reference Range Interpretation Comments MCH (test code = MCH) 29.8 pg 27.0-31.0 [place] 326662-06-24 20:13:43 Test Item Value Reference Range Interpretation Comments MCHC (test code = MCHC) 33.3 32.0-36.0 [place] 326662-06-24 20:13:43 Test Item Value Reference Range Interpretation Comments RDW (test code = RDW) 15.3 11.5-14.5 [facility]2022-06-24 20:13:43 Test Item Value Reference Range Interpretation Comments Albumin Lvl (test code = Albumin Lvl) 3.9 3.5-5.0 [place] [address]-06-24 20:13:43 Test Item Value Reference Range Interpretation Comments Platelet (test code = Platelet) 373 133-450 [place] 326662-06-24 20:13:43 Test Item Value Reference Range Interpretation Comments MPV (test code = MPV) 8.1 7.4-10.4 [place] [address]-06-24 20:13:43 Test Item Value Reference Range Interpretation Comments Segs (test code = Segs) 65.2 45.0-75.0 [place] [address]-06-24 20:13:43 Test Item Value Reference Range Interpretation Comments Lymphocytes (test code = Lymphocytes) 21.9 20.0-40.0 [place] [address]-06-24 20:13:43 Test Item Value Reference Range Interpretation Comments Monocytes (test code = Monocytes) 10.3 2.0-12.0 [place] [address]-06-24 20:13:43 Test Item Value Reference Range Interpretation Comments Eosinophils (test code = 2.3 See_Comment [A utomated message] The Eosinophils) system which ge nerated this result tra nsmitted reference range : <=4.0. The reference r bertha was not used to int erpret this result as normal/abnormal . [place] 326662-06-24 20:13:43 Test Item Value Reference Range Interpretation Comments Basophils (test code = 0.3 See_Comment [Aut omated message] The Basophils) system which ge nerated this result tra nsmitted reference range : <=1.0. The reference r bertha was not used to int erpret this result as normal/abnormal . [place] [address]-06-24 20:13:43 Test Item Value Reference Range Interpretation Comments Neutrophils # (test code = Neutrophils 8.3 1.5-8.1 #) [place] 326662-06-24 20:13:43 Test Item Value Reference Range Interpretation Comments Lymphocytes # (test code = Lymphocytes 2.8 1.0-5.5 #) [facility] 20:13:43 Test Item Value Reference Range Interpretation Comments Monocytes # (test code 1.3 See_Comment [Aut omated message] The = Monocytes #) system which generated this result tra nsmitted reference range : <=0.8. The reference r bertha was not used to int erpret this result as normal/abnormal . [facility] [id number] 20:13:43 Test Item Value Reference Range Interpretation Comments Globulin (test code = Globulin) 3.9 2.7-4.2 [facility]XducwvkDCBUMLOTYM5558-53-37 20:13:43 Test Item Value Reference Range Interpretation Comments Eosinophils # (test code 0.3 See_Comment [A utomated message] The = Eosinophils #) system whic h generated this result tra nsmitted reference range : <=0.5. The reference r bertha was not used to int erpret this result as normal/abnormal . [facility] [id number] 20:13:43 Test Item Value Reference Range Interpretation Comments A/G Ratio (test code = A/G Ratio) 1.0 1 0.7-1.6 [facility] [id number] 20:13:43 Test Item Value Reference Range Interpretation Comments ALANINE AMINOTRANSFERASE 28 See_Comment [A utomated message] (test code = ALANINE The sys tem which AMINOTRANSFERASE) generated this result transmitted ref erence range: <=65. Th e reference range was not used to int erpret this result as normal/abnormal . [facility] [id number] 20:13:43 Test Item Value Reference Range Interpretation Comments AST (test code = AST) 16 See_Comment [Auto mated message] The system which ge nerated this result transmit daphne reference range : <=37. The reference range was not used to interpr et this result as fatuma l/abnormal. [facility] [id number] 20:13:43 Test Item Value Reference Range Interpretation Comments Alk Phos (test code = Alk Phos) 78 39-136 [facility] [id number] 20:13:43 Test Item Value Reference Range Interpretation Comments Bili Total (test code = Bili Total) 0.4 0.2-1.3 [facility]2022-06-24 20:13:43 Test Item Value Reference Range Interpretation Comments Bili Direct (test code no gt See_Comment [Aut omated message] The = Bili Direct) system which generated this result tra nsmitted reference range : <=0.3. The reference r bertha was not used to int erpret this result as fatuma l/abnormal. [place] 059912-06-24 20:13:43 Test Item Value Reference Range Interpretation Comments Bili Indirect Unable to See_Comment [Automated (test code = Bili Calculate message] T he system Indirect) which generated this result transmitted reference range : <=1.0. The reference range was not used to interpret this result as normal/abnormal . [facility]2022-06-24 20:13:43 Test Item Value Reference Range Interpretation Comments Lipase Lvl (test code = Lipase Lvl) 203 73-393 [place] 326662-06-24 20:13:43 Test Item Value Reference Range Interpretation Comments WBC X 10x3 (test code = WBC X 10x3) 12.8 3.7-10.4 [place] 326662-06-24 20:13:43 Test Item Value Reference Range Interpretation Comments RBC X 10x6 (test code = RBC X 10x6) 4.52 4.20-5.40 [place] 326662-06-24 20:13:43 Test Item Value Reference Range Interpretation Comments Hgb (test code = Hgb) 13.5 12.0-16.0 [place] [address]-06-24 20:13:43 Test Item Value Reference Range Interpretation Comments Hct (test code = Hct) 40.5 36.0-48.0 [place] [address]-06-24 20:13:43 Test Item Value Reference Range Interpretation Comments MCV (test code = MCV) 89.5 80.0-98.0 [place] [address]-06-24 20:13:43 Test Item Value Reference Range Interpretation Comments MCH (test code = MCH) 29.8 pg 27.0-31.0 [place] [address]-06-24 20:13:43 Test Item Value Reference Range Interpretation Comments MCHC (test code = MCHC) 33.3 32.0-36.0 [facility] HospitalDnzcucmNJQZNXOCIT8589-06-37 20:13:43 Test Item Value Reference Range Interpretation Comments RDW (test code = RDW) 15.3 11.5-14.5 [place] 326662-06-24 20:13:43 Test Item Value Reference Range Interpretation Comments Platelet (test code = Platelet) 373 133-450 [place] 326662-06-24 20:13:43 Test Item Value Reference Range Interpretation Comments MPV (test code = MPV) 8.1 7.4-10.4 [place] 326662-06-24 20:13:43 Test Item Value Reference Range Interpretation Comments Segs (test code = Segs) 65.2 45.0-75.0 [place] [address]-06-24 20:13:43 Test Item Value Reference Range Interpretation Comments Lymphocytes (test code = Lymphocytes) 21.9 20.0-40.0 [place] 326662-06-24 20:13:43 Test Item Value Reference Range Interpretation Comments Monocytes (test code = Monocytes) 10.3 2.0-12.0 [place] 326662-06-24 20:13:43 Test Item Value Reference Range Interpretation Comments Eosinophils (test code = 2.3 See_Comment [A utomated message] The Eosinophils) system which ge nerated this result tra nsmitted reference range : <=4.0. The reference r bertha was not used to int erpret this result as normal/abnormal . [facility] HospitalPeuiqenAXYYALBICK1338-01-65 20:13:43 Test Item Value Reference Range Interpretation Comments Basophils (test code = 0.3 See_Comment [Aut omated message] The Basophils) system which ge nerated this result tra nsmitted reference range : <=1.0. The reference r bertha was not used to int erpret this result as normal/abnormal . [facility] HospitalOamugqkQOEIYDVPFS9873-96-55 20:13:43 Test Item Value Reference Range Interpretation Comments Neutrophils # (test code = Neutrophils 8.3 1.5-8.1 #) [facility] HospitalCozthhjUXSURTUOSF7123-87-52 20:13:43 Test Item Value Reference Range Interpretation Comments Lymphocytes # (test code = Lymphocytes 2.8 1.0-5.5 #) [place] 326662-06-24 20:13:43 Test Item Value Reference Range Interpretation Comments Monocytes # (test code 1.3 See_Comment [Aut omated message] The = Monocytes #) system which generated this result tra nsmitted reference range : <=0.8. The reference r bertha was not used to int erpret this result as normal/abnormal . [facility] HospitalJjuispsMUZKZCAMQV4534-26-31 20:13:43 Test Item Value Reference Range Interpretation Comments Eosinophils # (test code 0.3 See_Comment [A utomated message] The = Eosinophils #) system whic h generated this result tra nsmitted reference range : <=0.5. The reference r bertha was not used to int erpret this result as normal/abnormal . [facility]2022-06-24 20:13:43 Test Item Value Reference Range Interpretation Comments Glucose Lvl (test code = Glucose Lvl) 88 70-99 [place] 059912-06-24 20:13:43 Test Item Value Reference Range Interpretation Comments BUN (test code = BUN) 16 7-22 [place] 059912-06-24 20:13:43 Test Item Value Reference Range Interpretation Comments Creatinine Lvl (test code = Creatinine 0.82 0.50-1.40 Lvl) [place] 059912-06-24 20:13:43 Test Item Value Reference Range Interpretation Comments Sodium Lvl (test code = Sodium Lvl) 139 135-145 [place] 059912-06-24 20:13:43 Test Item Value Reference Range Interpretation Comments Potassium Lvl (test code = Potassium 3.7 3.5-5.1 Lvl) [place] 059912-06-24 20:13:43 Test Item Value Reference Range Interpretation Comments Chloride Lvl (test code = Chloride Lvl) 107 95-109 [place] 059912-06-24 20:13:43 Test Item Value Reference Range Interpretation Comments CO2 (test code = CO2) 25 24-32 [place] 059912-06-24 20:13:43 Test Item Value Reference Range Interpretation Comments Calcium Lvl (test code = Calcium Lvl) 8.8 8.5-10.5 [place] 059912-06-24 20:13:43 Test Item Value Reference Range Interpretation Comments AGAP (test code = AGAP) 10.7 10.0-20.0 [place] 059912-06-24 20:13:43 Test Item Value Reference Range Interpretation Comments eGFR (test code = eGFR) 94 [place] 059912-06-24 20:13:43 Test Item Value Reference Range Interpretation Comments Total Protein (test code = Total 7.8 6.4-8.4 Protein) [place] 059912-06-24 20:13:43 Test Item Value Reference Range Interpretation Comments Albumin Lvl (test code = Albumin Lvl) 3.9 3.5-5.0 [place] 059912-06-24 20:13:43 Test Item Value Reference Range Interpretation Comments Globulin (test code = Globulin) 3.9 2.7-4.2 [place] 059912-06-24 20:13:43 Test Item Value Reference Range Interpretation Comments A/G Ratio (test code = A/G Ratio) 1.0 1 0.7-1.6 [place] [address]-06-24 20:13:43 Test Item Value Reference Range Interpretation Comments ALANINE AMINOTRANSFERASE 28 See_Comment [A utomated message] (test code = ALANINE The sys tem which AMINOTRANSFERASE) generated this result transmitted ref erence range: <=65. Th e reference range was not used to int erpret this result as normal/abnormal . [place] 059912-06-24 20:13:43 Test Item Value Reference Range Interpretation Comments AST (test code = AST) 16 See_Comment [Auto mated message] The system which ge nerated this result transmit daphne reference range : <=37. The reference range was not used to interpr et this result as fatuma l/abnormal. [place] 059912-06-24 20:13:43 Test Item Value Reference Range Interpretation Comments Alk Phos (test code = Alk Phos) 78 39-136 [place] 059912-06-24 20:13:43 Test Item Value Reference Range Interpretation Comments Bili Total (test code = Bili Total) 0.4 0.2-1.3 [place] 059912-06-24 20:13:43 Test Item Value Reference Range Interpretation Comments Bili Direct (test code no gt See_Comment [Aut omated message] The = Bili Direct) system which generated this result tra nsmitted reference range : <=0.3. The reference r bertha was not used to int erpret this result as fatuma l/abnormal. [facility]2022-06-24 20:13:43 Test Item Value Reference Range Interpretation Comments Bili Indirect Unable to See_Comment [Automated (test code = Bili Calculate message] T he system Indirect) which generated this result transmitted reference range : <=1.0. The reference range was not used to interpret this result as normal/abnormal . [facility]2022-06-24 20:13:43 Test Item Value Reference Range Interpretation Comments Lipase Lvl (test code = Lipase Lvl) 203 73-393 [facility] HospitalXsujnulSLYVYNBXUC9586-17-18 20:13:43 Test Item Value Reference Range Interpretation Comments WBC X 10x3 (test code = WBC X 10x3) 12.8 3.7-10.4 [place] [address]662-06-24 20:13:43 Test Item Value Reference Range Interpretation Comments RBC X 10x6 (test code = RBC X 10x6) 4.52 4.20-5.40 [facility] HospitalFgjuvyqKMGOPIREPU6751-93-98 20:13:43 Test Item Value Reference Range Interpretation Comments Hgb (test code = Hgb) 13.5 12.0-16.0 [facility] HospitalRwuhmvlZSKBXRVPQH2713-55-51 20:13:43 Test Item Value Reference Range Interpretation Comments Hct (test code = Hct) 40.5 36.0-48.0 [facility] HospitalDbhabvaCEHZNJAEUD1175-76-70 20:13:43 Test Item Value Reference Range Interpretation Comments MCV (test code = MCV) 89.5 80.0-98.0 [facility] HospitalJalnfemJQWFTNUYRK7839-68-28 20:13:43 Test Item Value Reference Range Interpretation Comments MCH (test code = MCH) 29.8 pg 27.0-31.0 [place] 326662-06-24 20:13:43 Test Item Value Reference Range Interpretation Comments MCHC (test code = MCHC) 33.3 32.0-36.0 [place] 326662-06-24 20:13:43 Test Item Value Reference Range Interpretation Comments RDW (test code = RDW) 15.3 11.5-14.5 [facility] HospitalJjiaodwOPXLEZCEYA2132-82-29 20:13:43 Test Item Value Reference Range Interpretation Comments Platelet (test code = Platelet) 373 133-450 [place] [address]-06-24 20:13:43 Test Item Value Reference Range Interpretation Comments MPV (test code = MPV) 8.1 7.4-10.4 [place] [address]-06-24 20:13:43 Test Item Value Reference Range Interpretation Comments Segs (test code = Segs) 65.2 45.0-75.0 [place] [address]-06-24 20:13:43 Test Item Value Reference Range Interpretation Comments Lymphocytes (test code = Lymphocytes) 21.9 20.0-40.0 [place] [address]-06-24 20:13:43 Test Item Value Reference Range Interpretation Comments Monocytes (test code = Monocytes) 10.3 2.0-12.0 [place] [address]-06-24 20:13:43 Test Item Value Reference Range Interpretation Comments Eosinophils (test code = 2.3 See_Comment [A utomated message] The Eosinophils) system which ge nerated this result tra nsmitted reference range : <=4.0. The reference r bertha was not used to int erpret this result as normal/abnormal . [place] [address]662-06-24 20:13:43 Test Item Value Reference Range Interpretation Comments Basophils (test code = 0.3 See_Comment [Aut omated message] The Basophils) system which ge nerated this result tra nsmitted reference range : <=1.0. The reference r bertha was not used to int erpret this result as normal/abnormal . [place] [address]662-06-24 20:13:43 Test Item Value Reference Range Interpretation Comments Neutrophils # (test code = Neutrophils 8.3 1.5-8.1 #) [place] [address]-06-24 20:13:43 Test Item Value Reference Range Interpretation Comments Lymphocytes # (test code = Lymphocytes 2.8 1.0-5.5 #) [place] [address]-06-24 20:13:43 Test Item Value Reference Range Interpretation Comments Monocytes # (test code 1.3 See_Comment [Aut omated message] The = Monocytes #) system which generated this result tra nsmitted reference range : <=0.8. The reference r bertha was not used to int erpret this result as normal/abnormal . [place] 059912-06-24 20:13:43 Test Item Value Reference Range Interpretation Comments A/G Ratio (test code = A/G Ratio) 1.0 1 0.7-1.6 [place] [address]-06-24 20:13:43 Test Item Value Reference Range Interpretation Comments ALANINE AMINOTRANSFERASE 28 See_Comment [A utomated message] (test code = ALANINE The sys tem which AMINOTRANSFERASE) generated this result transmitted ref erence range: <=65. Th e reference range was not used to int erpret this result as normal/abnormal . [place] 059912-06-24 20:13:43 Test Item Value Reference Range Interpretation Comments AST (test code = AST) 16 See_Comment [Auto mated message] The system which ge nerated this result transmit daphne reference range : <=37. The reference range was not used to interpr et this result as fatuma l/abnormal. [place] 059912-06-24 20:13:43 Test Item Value Reference Range Interpretation Comments Alk Phos (test code = Alk Phos) 78 39-136 [place] 059912-06-24 20:13:43 Test Item Value Reference Range Interpretation Comments Bili Total (test code = Bili Total) 0.4 0.2-1.3 [place] [address]-06-24 20:13:43 Test Item Value Reference Range Interpretation Comments Bili Direct (test code no gt See_Comment [Aut omated message] The = Bili Direct) system which generated this result tra nsmitted reference range : <=0.3. The reference r bertha was not used to int erpret this result as fautma l/abnormal. [place] 059912-06-24 20:13:43 Test Item Value Reference Range Interpretation Comments Bili Indirect Unable to See_Comment [Automated (test code = Bili Calculate message] T he system Indirect) which generated this result transmitted reference range : <=1.0. The reference range was not used to interpret this result as normal/abnormal . [place] 059912-06-24 20:13:43 Test Item Value Reference Range Interpretation Comments Lipase Lvl (test code = Lipase Lvl) 203 73-393 [facility] HospitalUpflubdKBYGGMSLJQ6531-41-08 20:13:43 Test Item Value Reference Range Interpretation Comments WBC X 10x3 (test code = WBC X 10x3) 12.8 3.7-10.4 [place] [address]662-06-24 20:13:43 Test Item Value Reference Range Interpretation Comments Eosinophils # (test code 0.3 See_Comment [A utomated message] The = Eosinophils #) system whic h generated this result tra nsmitted reference range : <=0.5. The reference r bertha was not used to int erpret this result as normal/abnormal . [facility] HospitalKdzpmdhILRJMVKKGC3262-92-15 20:13:43 Test Item Value Reference Range Interpretation Comments RBC X 10x6 (test code = RBC X 10x6) 4.52 4.20-5.40 [place] 326662-06-24 20:13:43 Test Item Value Reference Range Interpretation Comments Hgb (test code = Hgb) 13.5 12.0-16.0 [facility] HospitalRwmrtigYSQHWIVKZD4511-55-29 20:13:43 Test Item Value Reference Range Interpretation Comments Hct (test code = Hct) 40.5 36.0-48.0 [facility] HospitalYdkrfwzDFUYIGWFHQ6333-01-85 20:13:43 Test Item Value Reference Range Interpretation Comments MCV (test code = MCV) 89.5 80.0-98.0 [facility] HospitalUllzbcsFBLCGXVVBN2318-58-17 20:13:43 Test Item Value Reference Range Interpretation Comments MCH (test code = MCH) 29.8 pg 27.0-31.0 [facility] HospitalYlpmaxxWQGEUPINZH5620-65-60 20:13:43 Test Item Value Reference Range Interpretation Comments MCHC (test code = MCHC) 33.3 32.0-36.0 [place] 326662-06-24 20:13:43 Test Item Value Reference Range Interpretation Comments RDW (test code = RDW) 15.3 11.5-14.5 [place] 326662-06-24 20:13:43 Test Item Value Reference Range Interpretation Comments Platelet (test code = Platelet) 373 408-450 [facility] HospitalHptvjleLPNETQVAMZ4969-25-60 20:13:43 Test Item Value Reference Range Interpretation Comments MPV (test code = MPV) 8.1 7.4-10.4 [place] [address]-06-24 20:13:43 Test Item Value Reference Range Interpretation Comments Segs (test code = Segs) 65.2 45.0-75.0 [place] [address]-06-24 20:13:43 Test Item Value Reference Range Interpretation Comments Lymphocytes (test code = Lymphocytes) 21.9 20.0-40.0 [place] [address]-06-24 20:13:43 Test Item Value Reference Range Interpretation Comments Monocytes (test code = Monocytes) 10.3 2.0-12.0 [place] [address]-06-24 20:13:43 Test Item Value Reference Range Interpretation Comments Eosinophils (test code = 2.3 See_Comment [A utomated message] The Eosinophils) system which ge nerated this result tra nsmitted reference range : <=4.0. The reference r bertha was not used to int erpret this result as normal/abnormal . [place] [address]-06-24 20:13:43 Test Item Value Reference Range Interpretation Comments Basophils (test code = 0.3 See_Comment [Aut omated message] The Basophils) system which ge nerated this result tra nsmitted reference range : <=1.0. The reference r bertha was not used to int erpret this result as normal/abnormal . [place] [address]-06-24 20:13:43 Test Item Value Reference Range Interpretation Comments Neutrophils # (test code = Neutrophils 8.3 1.5-8.1 #) [place] [address]-06-24 20:13:43 Test Item Value Reference Range Interpretation Comments Lymphocytes # (test code = Lymphocytes 2.8 1.0-5.5 #) [place] [address]-06-24 20:13:43 Test Item Value Reference Range Interpretation Comments Monocytes # (test code 1.3 See_Comment [Aut omated message] The = Monocytes #) system which generated this result tra nsmitted reference range : <=0.8. The reference r bertha was not used to int erpret this result as normal/abnormal . [place] [address]-06-24 20:13:43 Test Item Value Reference Range Interpretation Comments Eosinophils # (test code 0.3 See_Comment [A utomated message] The = Eosinophils #) system whic h generated this result tra nsmitted reference range : <=0.5. The reference r bertha was not used to int erpret this result as normal/abnormal . [place] 059912-06-24 20:13:43 Test Item Value Reference Range Interpretation Comments Glucose Lvl (test code = Glucose Lvl) 88 70-99 [place] 059912-06-24 20:13:43 Test Item Value Reference Range Interpretation Comments BUN (test code = BUN) 16 7-22 [place] 059912-06-24 20:13:43 Test Item Value Reference Range Interpretation Comments Creatinine Lvl (test code = Creatinine 0.82 0.50-1.40 Lvl) [place] 059912-06-24 20:13:43 Test Item Value Reference Range Interpretation Comments Sodium Lvl (test code = Sodium Lvl) 139 135-145 [place] 059912-06-24 20:13:43 Test Item Value Reference Range Interpretation Comments Potassium Lvl (test code = Potassium 3.7 3.5-5.1 Lvl) [place] 059912-06-24 20:13:43 Test Item Value Reference Range Interpretation Comments Chloride Lvl (test code = Chloride Lvl) 107 95-109 [place] 059912-06-24 20:13:43 Test Item Value Reference Range Interpretation Comments CO2 (test code = CO2) 25 24-32 [place] 059912-06-24 20:13:43 Test Item Value Reference Range Interpretation Comments Calcium Lvl (test code = Calcium Lvl) 8.8 8.5-10.5 [place] 059912-06-24 20:13:43 Test Item Value Reference Range Interpretation Comments AGAP (test code = AGAP) 10.7 10.0-20.0 [place] 059912-06-24 20:13:43 Test Item Value Reference Range Interpretation Comments eGFR (test code = eGFR) 94 [place] 059912-06-24 20:13:43 Test Item Value Reference Range Interpretation Comments Total Protein (test code = Total 7.8 6.4-8.4 Protein) [place] 059912-06-24 20:13:43 Test Item Value Reference Range Interpretation Comments Albumin Lvl (test code = Albumin Lvl) 3.9 3.5-5.0 [place] 059912-06-24 20:13:43 Test Item Value Reference Range Interpretation Comments Globulin (test code = Globulin) 3.9 2.7-4.2 [place] 059912-06-24 20:13:43 Test Item Value Reference Range Interpretation Comments Glucose Lvl (test code = Glucose Lvl) 88 70-99 [place] 059912-06-24 20:13:43 Test Item Value Reference Range Interpretation Comments BUN (test code = BUN) 16 7-22 [place] 059912-06-24 20:13:43 Test Item Value Reference Range Interpretation Comments Creatinine Lvl (test code = Creatinine 0.82 0.50-1.40 Lvl) [place] 059912-06-24 20:13:43 Test Item Value Reference Range Interpretation Comments Sodium Lvl (test code = Sodium Lvl) 139 135-145 [place] 059912-06-24 20:13:43 Test Item Value Reference Range Interpretation Comments Potassium Lvl (test code = Potassium 3.7 3.5-5.1 Lvl) [place] 059912-06-24 20:13:43 Test Item Value Reference Range Interpretation Comments Chloride Lvl (test code = Chloride Lvl) 107 95-109 [place] 059912-06-24 20:13:43 Test Item Value Reference Range Interpretation Comments CO2 (test code = CO2) 25 24-32 [place] 059912-06-24 20:13:43 Test Item Value Reference Range Interpretation Comments Calcium Lvl (test code = Calcium Lvl) 8.8 8.5-10.5 [place] 059912-06-24 20:13:43 Test Item Value Reference Range Interpretation Comments AGAP (test code = AGAP) 10.7 10.0-20.0 [place] 059912-06-24 20:13:43 Test Item Value Reference Range Interpretation Comments eGFR (test code = eGFR) 94 [place] 059912-06-24 20:13:43 Test Item Value Reference Range Interpretation Comments Total Protein (test code = Total 7.8 6.4-8.4 Protein) [place] 059912-06-24 20:13:43 Test Item Value Reference Range Interpretation Comments Albumin Lvl (test code = Albumin Lvl) 3.9 3.5-5.0 [place] 059912-06-24 20:13:43 Test Item Value Reference Range Interpretation Comments Globulin (test code = Globulin) 3.9 2.7-4.2 [place] 059912-06-24 20:13:43 Test Item Value Reference Range Interpretation Comments A/G Ratio (test code = A/G Ratio) 1.0 1 0.7-1.6 [place] 059912-06-24 20:13:43 Test Item Value Reference Range Interpretation Comments A/G Ratio (test code = A/G Ratio) 1.0 1 0.7-1.6 [place] 059912-06-24 20:13:43 Test Item Value Reference Range Interpretation Comments ALANINE AMINOTRANSFERASE 28 See_Comment [A utomated message] (test code = ALANINE The sys tem which AMINOTRANSFERASE) generated this result transmitted ref erence range: <=65. Th e reference range was not used to int erpret this result as normal/abnormal . [place] 059912-06-24 20:13:43 Test Item Value Reference Range Interpretation Comments AST (test code = AST) 16 See_Comment [Auto mated message] The system which ge nerated this result transmit daphne reference range : <=37. The reference range was not used to interpr et this result as fatuma l/abnormal. [place] 059912-06-24 20:13:43 Test Item Value Reference Range Interpretation Comments Alk Phos (test code = Alk Phos) 78 39-136 [place] 059912-06-24 20:13:43 Test Item Value Reference Range Interpretation Comments Bili Total (test code = Bili Total) 0.4 0.2-1.3 [place] 059912-06-24 20:13:43 Test Item Value Reference Range Interpretation Comments Bili Direct (test code no gt See_Comment [Aut omated message] The = Bili Direct) system which generated this result tra nsmitted reference range : <=0.3. The reference r bertha was not used to int erpret this result as fatuma l/abnormal. [facility] [id number] 20:13:43 Test Item Value Reference Range Interpretation Comments Bili Indirect Unable to See_Comment [Automated (test code = Bili Calculate message] T he system Indirect) which generated this result transmitted reference range : <=1.0. The reference range was not used to interpret this result as normal/abnormal . [facility]2022-06-24 20:13:43 Test Item Value Reference Range Interpretation Comments Lipase Lvl (test code = Lipase Lvl) 203 73-393 [facility]oqcpwGHAFHNAGHP5333-27-28 20:13:43 Test Item Value Reference Range Interpretation Comments WBC X 10x3 (test code = WBC X 10x3) 12.8 3.7-10.4 [place] 326662-06-24 20:13:43 Test Item Value Reference Range Interpretation Comments RBC X 10x6 (test code = RBC X 10x6) 4.52 4.20-5.40 [facility] HospitalVmeqhtlJBLLAMWSHM2297-27-38 20:13:43 Test Item Value Reference Range Interpretation Comments Hgb (test code = Hgb) 13.5 12.0-16.0 [facility]2022-06-24 20:13:43 Test Item Value Reference Range Interpretation Comments ALANINE AMINOTRANSFERASE 28 See_Comment [A utomated message] (test code = ALANINE The sys tem which AMINOTRANSFERASE) generated this result transmitted ref erence range: <=65. Th e reference range was not used to int erpret this result as normal/abnormal . [facility] HospitalVldsefrPWGHYAWXKJ4720-16-36 20:13:43 Test Item Value Reference Range Interpretation Comments Hct (test code = Hct) 40.5 36.0-48.0 [place] 326662-06-24 20:13:43 Test Item Value Reference Range Interpretation Comments MCV (test code = MCV) 89.5 80.0-98.0 [place] 326662-06-24 20:13:43 Test Item Value Reference Range Interpretation Comments MCH (test code = MCH) 29.8 pg 27.0-31.0 [place] 326662-06-24 20:13:43 Test Item Value Reference Range Interpretation Comments MCHC (test code = MCHC) 33.3 32.0-36.0 [place] 326662-06-24 20:13:43 Test Item Value Reference Range Interpretation Comments RDW (test code = RDW) 15.3 11.5-14.5 [place] 326662-06-24 20:13:43 Test Item Value Reference Range Interpretation Comments Platelet (test code = Platelet) 373 133-450 [facility] HospitalUtpuyfcGLOIMPXAAU3145-20-96 20:13:43 Test Item Value Reference Range Interpretation Comments MPV (test code = MPV) 8.1 7.4-10.4 [place] 326662-06-24 20:13:43 Test Item Value Reference Range Interpretation Comments Segs (test code = Segs) 65.2 45.0-75.0 [place] 326662-06-24 20:13:43 Test Item Value Reference Range Interpretation Comments Lymphocytes (test code = Lymphocytes) 21.9 20.0-40.0 [place] 326662-06-24 20:13:43 Test Item Value Reference Range Interpretation Comments Monocytes (test code = Monocytes) 10.3 2.0-12.0 [facility]2022-06-24 20:13:43 Test Item Value Reference Range Interpretation Comments AST (test code = AST) 16 See_Comment [Auto mated message] The system which ge nerated this result transmit daphne reference range : <=37. The reference range was not used to interpr et this result as fatuma l/abnormal. [facility] HospitalMtzxhfyXXNDNWIWHS1024-92-61 20:13:43 Test Item Value Reference Range Interpretation Comments Eosinophils (test code = 2.3 See_Comment [A utomated message] The Eosinophils) system which ge nerated this result tra nsmitted reference range : <=4.0. The reference r bertha was not used to int erpret this result as normal/abnormal . [facility] HospitalPngnyfxQZNQEAKDHU2689-89-77 20:13:43 Test Item Value Reference Range Interpretation Comments Basophils (test code = 0.3 See_Comment [Aut omated message] The Basophils) system which ge nerated this result tra nsmitted reference range : <=1.0. The reference r bertha was not used to int erpret this result as normal/abnormal . [place] 326662-06-24 20:13:43 Test Item Value Reference Range Interpretation Comments Neutrophils # (test code = Neutrophils 8.3 1.5-8.1 #) [facility] HospitalUfyhsyrGKUQCSZBVZ1926-36-56 20:13:43 Test Item Value Reference Range Interpretation Comments Lymphocytes # (test code = Lymphocytes 2.8 1.0-5.5 #) [place] 326662-06-24 20:13:43 Test Item Value Reference Range Interpretation Comments Monocytes # (test code 1.3 See_Comment [Aut omated message] The = Monocytes #) system which generated this result tra nsmitted reference range : <=0.8. The reference r bertha was not used to int erpret this result as normal/abnormal . [place] 326662-06-24 20:13:43 Test Item Value Reference Range Interpretation Comments Eosinophils # (test code 0.3 See_Comment [A utomated message] The = Eosinophils #) system whic h generated this result tra nsmitted reference range : <=0.5. The reference r bertha was not used to int erpret this result as normal/abnormal . [place] 059912-06-24 20:13:43 Test Item Value Reference Range Interpretation Comments Alk Phos (test code = Alk Phos) 78 39-136 [place] 059912-06-24 20:13:43 Test Item Value Reference Range Interpretation Comments Bili Total (test code = Bili Total) 0.4 0.2-1.3 [place] 059912-06-24 20:13:43 Test Item Value Reference Range Interpretation Comments Glucose Lvl (test code = Glucose Lvl) 88 70-99 [place] 059912-06-24 20:13:43 Test Item Value Reference Range Interpretation Comments BUN (test code = BUN) 16 7-22 [place] 059912-06-24 20:13:43 Test Item Value Reference Range Interpretation Comments Creatinine Lvl (test code = Creatinine 0.82 0.50-1.40 Lvl) [place] [address]-06-24 20:13:43 Test Item Value Reference Range Interpretation Comments Sodium Lvl (test code = Sodium Lvl) 139 135-145 [place] 059912-06-24 20:13:43 Test Item Value Reference Range Interpretation Comments Potassium Lvl (test code = Potassium 3.7 3.5-5.1 Lvl) [place] 059912-06-24 20:13:43 Test Item Value Reference Range Interpretation Comments Chloride Lvl (test code = Chloride Lvl) 107 95-109 [facility]2022-06-24 20:13:43 Test Item Value Reference Range Interpretation Comments Bili Direct (test code no gt See_Comment [Aut omated message] The = Bili Direct) system which generated this result tra nsmitted reference range : <=0.3. The reference r bertha was not used to int erpret this result as fatuma l/abnormal. [facility]2022-06-24 20:13:43 Test Item Value Reference Range Interpretation Comments CO2 (test code = CO2) 25 24-32 [place] 059912-06-24 20:13:43 Test Item Value Reference Range Interpretation Comments Calcium Lvl (test code = Calcium Lvl) 8.8 8.5-10.5 [facility]2022-06-24 20:13:43 Test Item Value Reference Range Interpretation Comments AGAP (test code = AGAP) 10.7 10.0-20.0 [place] 059912-06-24 20:13:43 Test Item Value Reference Range Interpretation Comments eGFR (test code = eGFR) 94 [place] 059912-06-24 20:13:43 Test Item Value Reference Range Interpretation Comments Total Protein (test code = Total 7.8 6.4-8.4 Protein) [facility]2022-06-24 20:13:43 Test Item Value Reference Range Interpretation Comments Albumin Lvl (test code = Albumin Lvl) 3.9 3.5-5.0 [place] 059912-06-24 20:13:43 Test Item Value Reference Range Interpretation Comments Globulin (test code = Globulin) 3.9 2.7-4.2 [place] 059912-06-24 20:13:43 Test Item Value Reference Range Interpretation Comments Bili Indirect Unable to See_Comment [Automated (test code = Bili Calculate message] T he system Indirect) which generated this result transmitted reference range : <=1.0. The reference range was not used to interpret this result as normal/abnormal . [facility]2022-06-24 20:13:43 Test Item Value Reference Range Interpretation Comments Lipase Lvl (test code = Lipase Lvl) 203 73-393 [facility] HospitalXebjpltKZXCRXZRWF2505-32-25 20:13:43 Test Item Value Reference Range Interpretation Comments WBC X 10x3 (test code = WBC X 10x3) 12.8 3.7-10.4 [place] 326662-06-24 20:13:43 Test Item Value Reference Range Interpretation Comments RBC X 10x6 (test code = RBC X 10x6) 4.52 4.20-5.40 [place] 326662-06-24 20:13:43 Test Item Value Reference Range Interpretation Comments Hgb (test code = Hgb) 13.5 12.0-16.0 [place] [address]-06-24 20:13:43 Test Item Value Reference Range Interpretation Comments Hct (test code = Hct) 40.5 36.0-48.0 [place] 178[address]-06-24 20:13:43 Test Item Value Reference Range Interpretation Comments MCV (test code = MCV) 89.5 80.0-98.0 [place] 326662-06-24 20:13:43 Test Item Value Reference Range Interpretation Comments MCH (test code = MCH) 29.8 pg 27.0-31.0 [facility] HospitalPpljyykSUNMGRGKNM4828-54-14 20:13:43 Test Item Value Reference Range Interpretation Comments MCHC (test code = MCHC) 33.3 32.0-36.0 [place] 326662-06-24 20:13:43 Test Item Value Reference Range Interpretation Comments RDW (test code = RDW) 15.3 11.5-14.5 [place] 326662-06-24 20:13:43 Test Item Value Reference Range Interpretation Comments Platelet (test code = Platelet) 373 133-450 [facility] HospitalOsuxklpYKPAMTNBLY1741-34-03 20:13:43 Test Item Value Reference Range Interpretation Comments MPV (test code = MPV) 8.1 7.4-10.4 [place] [address]-06-24 20:13:43 Test Item Value Reference Range Interpretation Comments Segs (test code = Segs) 65.2 45.0-75.0 [place] [address]-06-24 20:13:43 Test Item Value Reference Range Interpretation Comments Lymphocytes (test code = Lymphocytes) 21.9 20.0-40.0 [place] 326662-06-24 20:13:43 Test Item Value Reference Range Interpretation Comments Monocytes (test code = Monocytes) 10.3 2.0-12.0 [place] 326662-06-24 20:13:43 Test Item Value Reference Range Interpretation Comments Eosinophils (test code = 2.3 See_Comment [A utomated message] The Eosinophils) system which ge nerated this result tra nsmitted reference range : <=4.0. The reference r bertha was not used to int erpret this result as normal/abnormal . [place] [address]-06-24 20:13:43 Test Item Value Reference Range Interpretation Comments Basophils (test code = 0.3 See_Comment [Aut omated message] The Basophils) system which ge nerated this result tra nsmitted reference range : <=1.0. The reference r bertha was not used to int erpret this result as normal/abnormal . [place] 326662-06-24 20:13:43 Test Item Value Reference Range Interpretation Comments Neutrophils # (test code = Neutrophils 8.3 1.5-8.1 #) [place] 326662-06-24 20:13:43 Test Item Value Reference Range Interpretation Comments Lymphocytes # (test code = Lymphocytes 2.8 1.0-5.5 #) [place] 326662-06-24 20:13:43 Test Item Value Reference Range Interpretation Comments Monocytes # (test code 1.3 See_Comment [Aut omated message] The = Monocytes #) system which generated this result tra nsmitted reference range : <=0.8. The reference r bertha was not used to int erpret this result as normal/abnormal . [place] 326662-06-24 20:13:43 Test Item Value Reference Range Interpretation Comments Eosinophils # (test code 0.3 See_Comment [A utomated message] The = Eosinophils #) system whic h generated this result tra nsmitted reference range : <=0.5. The reference r bertha was not used to int erpret this result as normal/abnormal . [place] 059912-06-24 20:13:43 Test Item Value Reference Range Interpretation Comments Glucose Lvl (test code = Glucose Lvl) 88 70-99 [place] 059912-06-24 20:13:43 Test Item Value Reference Range Interpretation Comments BUN (test code = BUN) 16 7-22 [facility]2022-06-24 20:13:43 Test Item Value Reference Range Interpretation Comments Creatinine Lvl (test code = Creatinine 0.82 0.50-1.40 Lvl) [facility]2022-06-24 20:13:43 Test Item Value Reference Range Interpretation Comments Sodium Lvl (test code = Sodium Lvl) 139 135-145 [place] 059912-06-24 20:13:43 Test Item Value Reference Range Interpretation Comments Potassium Lvl (test code = Potassium 3.7 3.5-5.1 Lvl) [facility]2022-06-24 20:13:43 Test Item Value Reference Range Interpretation Comments Chloride Lvl (test code = Chloride Lvl) 107 95-109 [facility]2022-06-24 20:13:43 Test Item Value Reference Range Interpretation Comments CO2 (test code = CO2) 25 24-32 [place] 059912-06-24 20:13:43 Test Item Value Reference Range Interpretation Comments Calcium Lvl (test code = Calcium Lvl) 8.8 8.5-10.5 [place] 059912-06-24 20:13:43 Test Item Value Reference Range Interpretation Comments AGAP (test code = AGAP) 10.7 10.0-20.0 [facility]2022-06-24 20:13:43 Test Item Value Reference Range Interpretation Comments eGFR (test code = eGFR) 94 [place] 059912-06-24 20:13:43 Test Item Value Reference Range Interpretation Comments Total Protein (test code = Total 7.8 6.4-8.4 Protein) [facility]2022-06-24 20:13:43 Test Item Value Reference Range Interpretation Comments Albumin Lvl (test code = Albumin Lvl) 3.9 3.5-5.0 [place] 059912-06-24 20:13:43 Test Item Value Reference Range Interpretation Comments Globulin (test code = Globulin) 3.9 2.7-4.2 [place] 059912-06-24 20:13:43 Test Item Value Reference Range Interpretation Comments A/G Ratio (test code = A/G Ratio) 1.0 1 0.7-1.6 [place] 059912-06-24 20:13:43 Test Item Value Reference Range Interpretation Comments ALANINE AMINOTRANSFERASE 28 See_Comment [A utomated message] (test code = ALANINE The sys tem which AMINOTRANSFERASE) generated this result transmitted ref erence range: <=65. Th e reference range was not used to int erpret this result as normal/abnormal . [place] 059912-06-24 20:13:43 Test Item Value Reference Range Interpretation Comments AST (test code = AST) 16 See_Comment [Auto mated message] The system which ge nerated this result transmit daphne reference range : <=37. The reference range was not used to interpr et this result as fatuma l/abnormal. [place] 059912-06-24 20:13:43 Test Item Value Reference Range Interpretation Comments Alk Phos (test code = Alk Phos) 78 39-136 [place] 059912-06-24 20:13:43 Test Item Value Reference Range Interpretation Comments Bili Total (test code = Bili Total) 0.4 0.2-1.3 [place] 059912-06-24 20:13:43 Test Item Value Reference Range Interpretation Comments Bili Direct (test code no gt See_Comment [Aut omated message] The = Bili Direct) system which generated this result tra nsmitted reference range : <=0.3. The reference r bertha was not used to int erpret this result as fatuma l/abnormal. [place] 059912-06-24 20:13:43 Test Item Value Reference Range Interpretation Comments Bili Indirect Unable to See_Comment [Automated (test code = Bili Calculate message] T he system Indirect) which generated this result transmitted reference range : <=1.0. The reference range was not used to interpret this result as normal/abnormal . [place] 059912-06-24 20:13:43 Test Item Value Reference Range Interpretation Comments Lipase Lvl (test code = Lipase Lvl) 203 73-393 [place] 326662-06-24 20:13:43 Test Item Value Reference Range Interpretation Comments WBC X 10x3 (test code = WBC X 10x3) 12.8 3.7-10.4 [place] 326662-06-24 20:13:43 Test Item Value Reference Range Interpretation Comments RBC X 10x6 (test code = RBC X 10x6) 4.52 4.20-5.40 [facility] HospitalIfsihtpPSCSIHNMIF1756-49-77 20:13:43 Test Item Value Reference Range Interpretation Comments Hgb (test code = Hgb) 13.5 12.0-16.0 [place] [address]-06-24 20:13:43 Test Item Value Reference Range Interpretation Comments Hct (test code = Hct) 40.5 36.0-48.0 [place] [address]-06-24 20:13:43 Test Item Value Reference Range Interpretation Comments MCV (test code = MCV) 89.5 80.0-98.0 [place] 326662-06-24 20:13:43 Test Item Value Reference Range Interpretation Comments MCH (test code = MCH) 29.8 pg 27.0-31.0 [place] 326662-06-24 20:13:43 Test Item Value Reference Range Interpretation Comments MCHC (test code = MCHC) 33.3 32.0-36.0 [facility] HospitalCdkiycoQDXBBMPIZZ6918-33-34 20:13:43 Test Item Value Reference Range Interpretation Comments RDW (test code = RDW) 15.3 11.5-14.5 [facility] HospitalDjokvcvEBARFIGTGR3028-26-84 20:13:43 Test Item Value Reference Range Interpretation Comments Platelet (test code = Platelet) 373 133-450 [facility] HospitalTlpxbhfBSTZETQHFO1179-05-24 20:13:43 Test Item Value Reference Range Interpretation Comments MPV (test code = MPV) 8.1 7.4-10.4 [place] [address]-06-24 20:13:43 Test Item Value Reference Range Interpretation Comments Segs (test code = Segs) 65.2 45.0-75.0 [place] 326662-06-24 20:13:43 Test Item Value Reference Range Interpretation Comments Lymphocytes (test code = Lymphocytes) 21.9 20.0-40.0 [place] 326662-06-24 20:13:43 Test Item Value Reference Range Interpretation Comments Monocytes (test code = Monocytes) 10.3 2.0-12.0 [place] 326662-06-24 20:13:43 Test Item Value Reference Range Interpretation Comments Eosinophils (test code = 2.3 See_Comment [A utomated message] The Eosinophils) system which ge nerated this result tra nsmitted reference range : <=4.0. The reference r bertha was not used to int erpret this result as normal/abnormal . [facility] HospitalNwafgdnSGYPLULGLS7055-78-40 20:13:43 Test Item Value Reference Range Interpretation Comments Basophils (test code = 0.3 See_Comment [Aut omated message] The Basophils) system which ge nerated this result tra nsmitted reference range : <=1.0. The reference r bertha was not used to int erpret this result as normal/abnormal . [facility] HospitalWmljgwaBHQUUIHVCL7131-54-83 20:13:43 Test Item Value Reference Range Interpretation Comments Neutrophils # (test code = Neutrophils 8.3 1.5-8.1 #) [facility] HospitalHedznthFDMCFMQOKI0440-77-97 20:13:43 Test Item Value Reference Range Interpretation Comments Lymphocytes # (test code = Lymphocytes 2.8 1.0-5.5 #) [place] 326662-06-24 20:13:43 Test Item Value Reference Range Interpretation Comments Monocytes # (test code 1.3 See_Comment [Aut omated message] The = Monocytes #) system which generated this result tra nsmitted reference range : <=0.8. The reference r bertha was not used to int erpret this result as normal/abnormal . [facility] HospitalXyceaceKKKJDFRJCP2296-87-41 20:13:43 Test Item Value Reference Range Interpretation Comments Eosinophils # (test code 0.3 See_Comment [A utomated message] The = Eosinophils #) system whic h generated this result tra nsmitted reference range : <=0.5. The reference r bertha was not used to int erpret this result as normal/abnormal . [facility]2022-06-24 20:13:43 Test Item Value Reference Range Interpretation Comments Glucose Lvl (test code = Glucose Lvl) 88 70-99 [facility]2022-06-24 20:13:43 Test Item Value Reference Range Interpretation Comments BUN (test code = BUN) 16 7-22 [place] 059912-06-24 20:13:43 Test Item Value Reference Range Interpretation Comments Creatinine Lvl (test code = Creatinine 0.82 0.50-1.40 Lvl) [place] 059912-06-24 20:13:43 Test Item Value Reference Range Interpretation Comments Sodium Lvl (test code = Sodium Lvl) 139 135-145 [place] 059912-06-24 20:13:43 Test Item Value Reference Range Interpretation Comments Potassium Lvl (test code = Potassium 3.7 3.5-5.1 Lvl) [place] 059912-06-24 20:13:43 Test Item Value Reference Range Interpretation Comments Chloride Lvl (test code = Chloride Lvl) 107 95-109 [place] 059912-06-24 20:13:43 Test Item Value Reference Range Interpretation Comments CO2 (test code = CO2) 25 24-32 [place] 059912-06-24 20:13:43 Test Item Value Reference Range Interpretation Comments Calcium Lvl (test code = Calcium Lvl) 8.8 8.5-10.5 [place] 059912-06-24 20:13:43 Test Item Value Reference Range Interpretation Comments AGAP (test code = AGAP) 10.7 10.0-20.0 [place] 059912-06-24 20:13:43 Test Item Value Reference Range Interpretation Comments eGFR (test code = eGFR) 94 [place] 059912-06-24 20:13:43 Test Item Value Reference Range Interpretation Comments Total Protein (test code = Total 7.8 6.4-8.4 Protein) [place] 059912-06-24 20:13:43 Test Item Value Reference Range Interpretation Comments Albumin Lvl (test code = Albumin Lvl) 3.9 3.5-5.0 [place] 059912-06-24 20:13:43 Test Item Value Reference Range Interpretation Comments Globulin (test code = Globulin) 3.9 2.7-4.2 [place] 059912-06-24 20:13:43 Test Item Value Reference Range Interpretation Comments A/G Ratio (test code = A/G Ratio) 1.0 1 0.7-1.6 [place] 059912-06-24 20:13:43 Test Item Value Reference Range Interpretation Comments ALANINE AMINOTRANSFERASE 28 See_Comment [A utomated message] (test code = ALANINE The sys tem which AMINOTRANSFERASE) generated this result transmitted ref erence range: <=65. Th e reference range was not used to int erpret this result as normal/abnormal . [place] 059912-06-24 20:13:43 Test Item Value Reference Range Interpretation Comments AST (test code = AST) 16 See_Comment [Auto mated message] The system which ge nerated this result transmit daphne reference range : <=37. The reference range was not used to interpr et this result as fatuma l/abnormal. [place] 059912-06-24 20:13:43 Test Item Value Reference Range Interpretation Comments Alk Phos (test code = Alk Phos) 78 39-136 [place] 059912-06-24 20:13:43 Test Item Value Reference Range Interpretation Comments Bili Total (test code = Bili Total) 0.4 0.2-1.3 [place] 059912-06-24 20:13:43 Test Item Value Reference Range Interpretation Comments Bili Direct (test code no gt See_Comment [Aut omated message] The = Bili Direct) system which generated this result tra nsmitted reference range : <=0.3. The reference r bertha was not used to int erpret this result as fatuma l/abnormal. [place] 059912-06-24 20:13:43 Test Item Value Reference Range Interpretation Comments Bili Indirect Unable to See_Comment [Automated (test code = Bili Calculate message] T he system Indirect) which generated this result transmitted reference range : <=1.0. The reference range was not used to interpret this result as normal/abnormal . [facility]2022-06-24 20:13:43 Test Item Value Reference Range Interpretation Comments Lipase Lvl (test code = Lipase Lvl) 203 73-393 [place] 326662-06-24 20:13:43 Test Item Value Reference Range Interpretation Comments WBC X 10x3 (test code = WBC X 10x3) 12.8 3.7-10.4 [place] 326662-06-24 20:13:43 Test Item Value Reference Range Interpretation Comments RBC X 10x6 (test code = RBC X 10x6) 4.52 4.20-5.40 [place] 326662-06-24 20:13:43 Test Item Value Reference Range Interpretation Comments Hgb (test code = Hgb) 13.5 12.0-16.0 [place] 326662-06-24 20:13:43 Test Item Value Reference Range Interpretation Comments Hct (test code = Hct) 40.5 36.0-48.0 [place] 326662-06-24 20:13:43 Test Item Value Reference Range Interpretation Comments MCV (test code = MCV) 89.5 80.0-98.0 [place] [address]-06-24 20:13:43 Test Item Value Reference Range Interpretation Comments MCH (test code = MCH) 29.8 pg 27.0-31.0 [place] [address]-06-24 20:13:43 Test Item Value Reference Range Interpretation Comments MCHC (test code = MCHC) 33.3 32.0-36.0 [place] 326662-06-24 20:13:43 Test Item Value Reference Range Interpretation Comments RDW (test code = RDW) 15.3 11.5-14.5 [place] 326662-06-24 20:13:43 Test Item Value Reference Range Interpretation Comments Platelet (test code = Platelet) 373 133-450 [place] 326662-06-24 20:13:43 Test Item Value Reference Range Interpretation Comments MPV (test code = MPV) 8.1 7.4-10.4 [place] 326662-06-24 20:13:43 Test Item Value Reference Range Interpretation Comments Segs (test code = Segs) 65.2 45.0-75.0 [place] 326662-06-24 20:13:43 Test Item Value Reference Range Interpretation Comments Lymphocytes (test code = Lymphocytes) 21.9 20.0-40.0 [place] [address]-06-24 20:13:43 Test Item Value Reference Range Interpretation Comments Monocytes (test code = Monocytes) 10.3 2.0-12.0 [place] [address]-06-24 20:13:43 Test Item Value Reference Range Interpretation Comments Eosinophils (test code = 2.3 See_Comment [A utomated message] The Eosinophils) system which ge nerated this result tra nsmitted reference range : <=4.0. The reference r bertha was not used to int erpret this result as normal/abnormal . [place] 326662-06-24 20:13:43 Test Item Value Reference Range Interpretation Comments Basophils (test code = 0.3 See_Comment [Aut omated message] The Basophils) system which ge nerated this result tra nsmitted reference range : <=1.0. The reference r bertha was not used to int erpret this result as normal/abnormal . [place] 326662-06-24 20:13:43 Test Item Value Reference Range Interpretation Comments Neutrophils # (test code = Neutrophils 8.3 1.5-8.1 #) [place] 326662-06-24 20:13:43 Test Item Value Reference Range Interpretation Comments Lymphocytes # (test code = Lymphocytes 2.8 1.0-5.5 #) [place] [address]-06-24 20:13:43 Test Item Value Reference Range Interpretation Comments Monocytes # (test code 1.3 See_Comment [Aut omated message] The = Monocytes #) system which generated this result tra nsmitted reference range : <=0.8. The reference r bertha was not used to int erpret this result as normal/abnormal . [place] 326662-06-24 20:13:43 Test Item Value Reference Range Interpretation Comments Eosinophils # (test code 0.3 See_Comment [A utomated message] The = Eosinophils #) system whic h generated this result tra nsmitted reference range : <=0.5. The reference r bertha was not used to int erpret this result as normal/abnormal . [place] 059912-06-24 20:13:43 Test Item Value Reference Range Interpretation Comments Glucose Lvl (test code = Glucose Lvl) 88 70-99 [place] 059912-06-24 20:13:43 Test Item Value Reference Range Interpretation Comments BUN (test code = BUN) 16 7-22 [place] [address]-06-24 20:13:43 Test Item Value Reference Range Interpretation Comments Creatinine Lvl (test code = Creatinine 0.82 0.50-1.40 Lvl) [place] 059912-06-24 20:13:43 Test Item Value Reference Range Interpretation Comments Sodium Lvl (test code = Sodium Lvl) 139 135-145 [place] 059912-06-24 20:13:43 Test Item Value Reference Range Interpretation Comments Potassium Lvl (test code = Potassium 3.7 3.5-5.1 Lvl) [place] 059912-06-24 20:13:43 Test Item Value Reference Range Interpretation Comments Chloride Lvl (test code = Chloride Lvl) 107 95-109 [place] 059912-06-24 20:13:43 Test Item Value Reference Range Interpretation Comments CO2 (test code = CO2) 25 24-32 [place] 059912-06-24 20:13:43 Test Item Value Reference Range Interpretation Comments Calcium Lvl (test code = Calcium Lvl) 8.8 8.5-10.5 [place] 059912-06-24 20:13:43 Test Item Value Reference Range Interpretation Comments AGAP (test code = AGAP) 10.7 10.0-20.0 [place] 059912-06-24 20:13:43 Test Item Value Reference Range Interpretation Comments eGFR (test code = eGFR) 94 [place] 059912-06-24 20:13:43 Test Item Value Reference Range Interpretation Comments Total Protein (test code = Total 7.8 6.4-8.4 Protein) [place] 059912-06-24 20:13:43 Test Item Value Reference Range Interpretation Comments Albumin Lvl (test code = Albumin Lvl) 3.9 3.5-5.0 [place] 059912-06-24 20:13:43 Test Item Value Reference Range Interpretation Comments Globulin (test code = Globulin) 3.9 2.7-4.2 [place] 059912-06-24 20:13:43 Test Item Value Reference Range Interpretation Comments A/G Ratio (test code = A/G Ratio) 1.0 1 0.7-1.6 [place] 059912-06-24 20:13:43 Test Item Value Reference Range Interpretation Comments ALANINE AMINOTRANSFERASE 28 See_Comment [A utomated message] (test code = ALANINE The sys tem which AMINOTRANSFERASE) generated this result transmitted ref erence range: <=65. Th e reference range was not used to int erpret this result as normal/abnormal . [place] 059912-06-24 20:13:43 Test Item Value Reference Range Interpretation Comments AST (test code = AST) 16 See_Comment [Auto mated message] The system which ge nerated this result transmit daphne reference range : <=37. The reference range was not used to interpr et this result as fatuma l/abnormal. [place] 059912-06-24 20:13:43 Test Item Value Reference Range Interpretation Comments Alk Phos (test code = Alk Phos) 78 39-136 [place] 059912-06-24 20:13:43 Test Item Value Reference Range Interpretation Comments Bili Total (test code = Bili Total) 0.4 0.2-1.3 [place] 059912-06-24 20:13:43 Test Item Value Reference Range Interpretation Comments Bili Direct (test code no gt See_Comment [Aut omated message] The = Bili Direct) system which generated this result tra nsmitted reference range : <=0.3. The reference r bertha was not used to int erpret this result as fatuma l/abnormal. [place] 059912-06-24 20:13:43 Test Item Value Reference Range Interpretation Comments Bili Indirect Unable to See_Comment [Automated (test code = Bili Calculate message] T he system Indirect) which generated this result transmitted reference range : <=1.0. The reference range was not used to interpret this result as normal/abnormal . [facility]2022-06-24 20:13:43 Test Item Value Reference Range Interpretation Comments Lipase Lvl (test code = Lipase Lvl) 203 73-393 [place] 326662-06-24 20:13:43 Test Item Value Reference Range Interpretation Comments WBC X 10x3 (test code = WBC X 10x3) 12.8 3.7-10.4 [place] 326662-06-24 20:13:43 Test Item Value Reference Range Interpretation Comments RBC X 10x6 (test code = RBC X 10x6) 4.52 4.20-5.40 [place] 326662-06-24 20:13:43 Test Item Value Reference Range Interpretation Comments Hgb (test code = Hgb) 13.5 12.0-16.0 [place] 326662-06-24 20:13:43 Test Item Value Reference Range Interpretation Comments Hct (test code = Hct) 40.5 36.0-48.0 [place] 326662-06-24 20:13:43 Test Item Value Reference Range Interpretation Comments MCV (test code = MCV) 89.5 80.0-98.0 [place] [address]-06-24 20:13:43 Test Item Value Reference Range Interpretation Comments MCH (test code = MCH) 29.8 pg 27.0-31.0 [place] [address]-06-24 20:13:43 Test Item Value Reference Range Interpretation Comments MCHC (test code = MCHC) 33.3 32.0-36.0 [place] 326662-06-24 20:13:43 Test Item Value Reference Range Interpretation Comments RDW (test code = RDW) 15.3 11.5-14.5 [place] [address]-06-24 20:13:43 Test Item Value Reference Range Interpretation Comments Platelet (test code = Platelet) 373 133-450 [place] [address]-06-24 20:13:43 Test Item Value Reference Range Interpretation Comments MPV (test code = MPV) 8.1 7.4-10.4 [place] 326662-06-24 20:13:43 Test Item Value Reference Range Interpretation Comments Segs (test code = Segs) 65.2 45.0-75.0 [place] [address]-06-24 20:13:43 Test Item Value Reference Range Interpretation Comments Lymphocytes (test code = Lymphocytes) 21.9 20.0-40.0 [place] 326662-06-24 20:13:43 Test Item Value Reference Range Interpretation Comments Monocytes (test code = Monocytes) 10.3 2.0-12.0 [place] [address]-06-24 20:13:43 Test Item Value Reference Range Interpretation Comments Eosinophils (test code = 2.3 See_Comment [A utomated message] The Eosinophils) system which ge nerated this result tra nsmitted reference range : <=4.0. The reference r bertha was not used to int erpret this result as normal/abnormal . [place] 326662-06-24 20:13:43 Test Item Value Reference Range Interpretation Comments Basophils (test code = 0.3 See_Comment [Aut omated message] The Basophils) system which ge nerated this result tra nsmitted reference range : <=1.0. The reference r bertha was not used to int erpret this result as normal/abnormal . [address]06-24 20:13:43 Test Item Value Reference Range Interpretation Comments Neutrophils # (test code = Neutrophils 8.3 1.5-8.1 #) [place] 326662-06-24 20:13:43 Test Item Value Reference Range Interpretation Comments Lymphocytes # (test code = Lymphocytes 2.8 1.0-5.5 #) [place] [address]-06-24 20:13:43 Test Item Value Reference Range Interpretation Comments Monocytes # (test code 1.3 See_Comment [Aut omated message] The = Monocytes #) system which generated this result tra nsmitted reference range : <=0.8. The reference r bertha was not used to int erpret this result as normal/abnormal . [address]06-24 20:13:43 Test Item Value Reference Range Interpretation Comments Eosinophils # (test code 0.3 See_Comment [A utomated message] The = Eosinophils #) system whic h generated this result tra nsmitted reference range : <=0.5. The reference r bertha was not used to int erpret this result as normal/abnormal . [place] 059912-06-24 20:13:43 Test Item Value Reference Range Interpretation Comments Glucose Lvl (test code = Glucose Lvl) 88 70-99 [place] [address]-06-24 20:13:43 Test Item Value Reference Range Interpretation Comments BUN (test code = BUN) 16 7-22 [place] [address]-06-24 20:13:43 Test Item Value Reference Range Interpretation Comments Creatinine Lvl (test code = Creatinine 0.82 0.50-1.40 Lvl) [place] 059912-06-24 20:13:43 Test Item Value Reference Range Interpretation Comments Sodium Lvl (test code = Sodium Lvl) 139 135-145 [place] [address]-06-24 20:13:43 Test Item Value Reference Range Interpretation Comments Potassium Lvl (test code = Potassium 3.7 3.5-5.1 Lvl) [place] [address]-06-24 20:13:43 Test Item Value Reference Range Interpretation Comments Chloride Lvl (test code = Chloride Lvl) 107 95-109 [place] 059912-06-24 20:13:43 Test Item Value Reference Range Interpretation Comments CO2 (test code = CO2) 25 24-32 [place] 059912-06-24 20:13:43 Test Item Value Reference Range Interpretation Comments Calcium Lvl (test code = Calcium Lvl) 8.8 8.5-10.5 [place] 059912-06-24 20:13:43 Test Item Value Reference Range Interpretation Comments AGAP (test code = AGAP) 10.7 10.0-20.0 [place] 059912-06-24 20:13:43 Test Item Value Reference Range Interpretation Comments eGFR (test code = eGFR) 94 [place] 059912-06-24 20:13:43 Test Item Value Reference Range Interpretation Comments Total Protein (test code = Total 7.8 6.4-8.4 Protein) [place] 059912-06-24 20:13:43 Test Item Value Reference Range Interpretation Comments Albumin Lvl (test code = Albumin Lvl) 3.9 3.5-5.0 [place] 059912-06-24 20:13:43 Test Item Value Reference Range Interpretation Comments Globulin (test code = Globulin) 3.9 2.7-4.2 [place] 059912-06-24 20:13:43 Test Item Value Reference Range Interpretation Comments A/G Ratio (test code = A/G Ratio) 1.0 1 0.7-1.6 [place] 059912-06-24 20:13:43 Test Item Value Reference Range Interpretation Comments ALANINE AMINOTRANSFERASE 28 See_Comment [A utomated message] (test code = ALANINE The sys tem which AMINOTRANSFERASE) generated this result transmitted ref erence range: <=65. Th e reference range was not used to int erpret this result as normal/abnormal . [place] 059912-06-24 20:13:43 Test Item Value Reference Range Interpretation Comments AST (test code = AST) 16 See_Comment [Auto mated message] The system which ge nerated this result transmit daphne reference range : <=37. The reference range was not used to interpr et this result as fatuma l/abnormal. [place] 059912-06-24 20:13:43 Test Item Value Reference Range Interpretation Comments Alk Phos (test code = Alk Phos) 78 39-136 [facility]2022-06-24 20:13:43 Test Item Value Reference Range Interpretation Comments Bili Total (test code = Bili Total) 0.4 0.2-1.3 [facility]2022-06-24 20:13:43 Test Item Value Reference Range Interpretation Comments Bili Direct (test code no gt See_Comment [Aut omated message] The = Bili Direct) system which generated this result tra nsmitted reference range : <=0.3. The reference r bertha was not used to int erpret this result as fatuma l/abnormal. [place] 059912-06-24 20:13:43 Test Item Value Reference Range Interpretation Comments Bili Indirect Unable to See_Comment [Automated (test code = Bili Calculate message] T he system Indirect) which generated this result transmitted reference range : <=1.0. The reference range was not used to interpret this result as normal/abnormal . [facility]2022-06-24 20:13:43 Test Item Value Reference Range Interpretation Comments Lipase Lvl (test code = Lipase Lvl) 203 73-393 [id number] 20:13:43 Test Item Value Reference Range Interpretation Comments WBC X 10x3 (test code = WBC X 10x3) 12.8 3.7-10.4 [place] 326662-06-24 20:13:43 Test Item Value Reference Range Interpretation Comments RBC X 10x6 (test code = RBC X 10x6) 4.52 4.20-5.40 [place] 326662-06-24 20:13:43 Test Item Value Reference Range Interpretation Comments Hgb (test code = Hgb) 13.5 12.0-16.0 [place] [address]-06-24 20:13:43 Test Item Value Reference Range Interpretation Comments Hct (test code = Hct) 40.5 36.0-48.0 [place] 326662-06-24 20:13:43 Test Item Value Reference Range Interpretation Comments MCV (test code = MCV) 89.5 80.0-98.0 [place] 326662-06-24 20:13:43 Test Item Value Reference Range Interpretation Comments MCH (test code = MCH) 29.8 pg 27.0-31.0 [place] 326662-06-24 20:13:43 Test Item Value Reference Range Interpretation Comments MCHC (test code = MCHC) 33.3 32.0-36.0 [place] 326662-06-24 20:13:43 Test Item Value Reference Range Interpretation Comments RDW (test code = RDW) 15.3 11.5-14.5 [place] 326662-06-24 20:13:43 Test Item Value Reference Range Interpretation Comments Platelet (test code = Platelet) 373 133-450 [place] 326662-06-24 20:13:43 Test Item Value Reference Range Interpretation Comments MPV (test code = MPV) 8.1 7.4-10.4 [place] 326662-06-24 20:13:43 Test Item Value Reference Range Interpretation Comments Segs (test code = Segs) 65.2 45.0-75.0 [place] 326662-06-24 20:13:43 Test Item Value Reference Range Interpretation Comments Lymphocytes (test code = Lymphocytes) 21.9 20.0-40.0 [place] 326662-06-24 20:13:43 Test Item Value Reference Range Interpretation Comments Monocytes (test code = Monocytes) 10.3 2.0-12.0 [place] 326662-06-24 20:13:43 Test Item Value Reference Range Interpretation Comments Eosinophils (test code = 2.3 See_Comment [A utomated message] The Eosinophils) system which ge nerated this result tra nsmitted reference range : <=4.0. The reference r bertha was not used to int erpret this result as normal/abnormal . [place] 326662-06-24 20:13:43 Test Item Value Reference Range Interpretation Comments Basophils (test code = 0.3 See_Comment [Aut omated message] The Basophils) system which ge nerated this result tra nsmitted reference range : <=1.0. The reference r bertha was not used to int erpret this result as normal/abnormal . [place] 326662-06-24 20:13:43 Test Item Value Reference Range Interpretation Comments Neutrophils # (test code = Neutrophils 8.3 1.5-8.1 #) [id number] 20:13:43 Test Item Value Reference Range Interpretation Comments Lymphocytes # (test code = Lymphocytes 2.8 1.0-5.5 #) [facility] [id number] 20:13:43 Test Item Value Reference Range Interpretation Comments Monocytes # (test code 1.3 See_Comment [Aut omated message] The = Monocytes #) system which generated this result tra nsmitted reference range : <=0.8. The reference r bertha was not used to int erpret this result as normal/abnormal . [facility] [id number] 20:13:43 Test Item Value Reference Range Interpretation Comments Eosinophils # (test code 0.3 See_Comment [A utomated message] The = Eosinophils #) system whic h generated this result tra nsmitted reference range : <=0.5. The reference r bertha was not used to int erpret this result as normal/abnormal . [facility] AND [id number] 19:58:00 Test Item Value Reference Range Interpretation Comments UA Mucus (test code = UA Mucus) Few /LPF [facility] [id number] 19:58:00 Test Item Value Reference Range Interpretation Comments U Preg (test code = U Negative (12/04/21 2:58 Preg) PM) [facility] AND [id number] 19:58:00 Test Item Value Reference Range Interpretation Comments UA Color (test code = Dark Yellow UA Color) *NA*(12/04/21 2:58 PM) [facility] AND [id number] 19:58:00 Test Item Value Reference Range Interpretation Comments UA Turbidity (test code Slight *ABN*(12/04/21 = UA Turbidity) 2:58 PM) [facility] AND [id number] 19:58:00 Test Item Value Reference Range Interpretation Comments UA Spec Grav (test code = UA Spec 1.031 1 Grav) [facility] AND [id number] 19:58:00 Test Item Value Reference Range Interpretation Comments UA pH (test code = UA pH) 5.0 1 5.0-8.0 [facility] AND [id number] 19:58:00 Test Item Value Reference Range Interpretation Comments UA Protein (test code = UA Negative mg/dL Protein) [facility] AND [id number] 19:58:00 Test Item Value Reference Range Interpretation Comments UA Glucose (test code = UA Negative mg/dL Glucose) [facility] AND [id number] 19:58:00 Test Item Value Reference Range Interpretation Comments UA Ketones (test code = UA Trace mg/dL Ketones) [facility] AND [id number] 19:58:00 Test Item Value Reference Range Interpretation Comments UA Bili (test code = Negative *NA*(12/04/21 UA Bili) 2:58 PM) [facility] AND [id number] 19:58:00 Test Item Value Reference Range Interpretation Comments UA Blood (test code = Negative (12/04/21 2:58 UA Blood) PM) [facility] AND [id number] 19:58:00 Test Item Value Reference Range Interpretation Comments UA Urobilinogen (test code = UA no gt 0.1-1.0 Urobilinogen) [facility] AND [id number] 19:58:00 Test Item Value Reference Range Interpretation Comments UA Nitrite (test code Negative (12/04/21 2:58 = UA Nitrite) PM) [facility] AND [id number] 19:58:00 Test Item Value Reference Range Interpretation Comments UA Leuk Est (test Negative (12/04/21 2:58 code = UA Leuk Est) PM) [facility] AND [id number] 19:58:00 Test Item Value Reference Range Interpretation Comments UA Sq Epi (test code = UA Sq Moderate /LPF Epi) [facility] AND [id number] 19:58:00 Test Item Value Reference Range Interpretation Comments UA WBC (test code = 2 See_Comment [Automa daphne message] The UA WBC) system which ge nerated this result transmit daphne reference range : <=5. The reference range was not used to interpr et this result as fatuma l/abnormal. [facility] AND [id number] 19:58:00 Test Item Value Reference Range Interpretation Comments UA RBC (test code = 2 See_Comment [Automa daphne message] The UA RBC) system which ge nerated this result transmit daphne reference range : <=2. The reference range was not used to interpr et this result as fatuma l/abnormal. [facility] [id number] 19:58:00 Test Item Value Reference Range Interpretation Comments UA Bacteria (test code = UA Occasional /HPF Bacteria) [facility] [id number] 19:58:00 Test Item Value Reference Range Interpretation Comments UA Mucus (test code = UA Mucus) Few /LPF [facility] [id number] 19:58:00 Test Item Value Reference Range Interpretation Comments U Preg (test code = U Negative (12/04/21 2:58 Preg) PM) [facility] AND [id number] 19:58:00 Test Item Value Reference Range Interpretation Comments UA Color (test code = Dark Yellow UA Color) *NA*(12/04/21 2:58 PM) [facility] AND [id number] 19:58:00 Test Item Value Reference Range Interpretation Comments UA Turbidity (test code Slight *ABN*(12/04/21 = UA Turbidity) 2:58 PM) [facility] AND [id number] 19:58:00 Test Item Value Reference Range Interpretation Comments UA Spec Grav (test code = UA Spec 1.031 1 Grav) [facility] AND [id number] 19:58:00 Test Item Value Reference Range Interpretation Comments UA pH (test code = UA pH) 5.0 1 5.0-8.0 [facility] AND [id number] 19:58:00 Test Item Value Reference Range Interpretation Comments UA Protein (test code = UA Negative mg/dL Protein) [facility] AND [id number] 19:58:00 Test Item Value Reference Range Interpretation Comments UA Glucose (test code = UA Negative mg/dL Glucose) [facility] AND [id number] 19:58:00 Test Item Value Reference Range Interpretation Comments UA Ketones (test code = UA Trace mg/dL Ketones) [facility] AND [id number] 19:58:00 Test Item Value Reference Range Interpretation Comments UA Bili (test code = Negative *NA*(12/04/21 UA Bili) 2:58 PM) [facility] AND [id number] 19:58:00 Test Item Value Reference Range Interpretation Comments UA Blood (test code = Negative (12/04/21 2:58 UA Blood) PM) [facility] [id number] 19:58:00 Test Item Value Reference Range Interpretation Comments UA Urobilinogen (test code = UA no gt 0.1-1.0 Urobilinogen) [facility] [id number] 19:58:00 Test Item Value Reference Range Interpretation Comments UA Nitrite (test code Negative (12/04/21 2:58 = UA Nitrite) PM) [facility] [id number] 19:58:00 Test Item Value Reference Range Interpretation Comments UA Leuk Est (test Negative (12/04/21 2:58 code = UA Leuk Est) PM) [facility] [id number] 19:58:00 Test Item Value Reference Range Interpretation Comments UA Sq Epi (test code = UA Sq Moderate /LPF Epi) [facility] [id number] 19:58:00 Test Item Value Reference Range Interpretation Comments UA WBC (test code = 2 See_Comment [Automa daphne message] The UA WBC) system which ge nerated this result transmit daphne reference range : <=5. The reference range was not used to interpr et this result as fatuma l/abnormal. [facility] [id number] 19:58:00 Test Item Value Reference Range Interpretation Comments UA RBC (test code = 2 See_Comment [Automa daphne message] The UA RBC) system which ge nerated this result transmit daphne reference range : <=2. The reference range was not used to interpr et this result as fatuma l/abnormal. [facility] [id number] 19:58:00 Test Item Value Reference Range Interpretation Comments UA Bacteria (test code = UA Occasional /HPF Bacteria) [facility] [id number] 19:58:00 Test Item Value Reference Range Interpretation Comments UA Mucus (test code = UA Mucus) Few /LPF [facility] [id number] 19:58:00 Test Item Value Reference Range Interpretation Comments U Preg (test code = U Negative (12/04/21 2:58 Preg) PM) [facility] [id number] 19:58:00 Test Item Value Reference Range Interpretation Comments UA Color (test code = Dark Yellow UA Color) *NA*(12/04/21 2:58 PM) [facility] AND [id number] 19:58:00 Test Item Value Reference Range Interpretation Comments UA Turbidity (test code Slight *ABN*(12/04/21 = UA Turbidity) 2:58 PM) [facility] AND [id number] 19:58:00 Test Item Value Reference Range Interpretation Comments UA Spec Grav (test code = UA Spec 1.031 1 Grav) [facility] AND [id number] 19:58:00 Test Item Value Reference Range Interpretation Comments UA pH (test code = UA pH) 5.0 1 5.0-8.0 [facility] AND [id number] 19:58:00 Test Item Value Reference Range Interpretation Comments UA Protein (test code = UA Negative mg/dL Protein) [facility] AND [id number] 19:58:00 Test Item Value Reference Range Interpretation Comments UA Glucose (test code = UA Negative mg/dL Glucose) [facility] AND [id number] 19:58:00 Test Item Value Reference Range Interpretation Comments UA Ketones (test code = UA Trace mg/dL Ketones) [facility] AND [id number] 19:58:00 Test Item Value Reference Range Interpretation Comments UA Bili (test code = Negative *NA*(12/04/21 UA Bili) 2:58 PM) [facility] AND [id number] 19:58:00 Test Item Value Reference Range Interpretation Comments UA Blood (test code = Negative (12/04/21 2:58 UA Blood) PM) [facility] AND [id number] 19:58:00 Test Item Value Reference Range Interpretation Comments UA Urobilinogen (test code = UA no gt 0.1-1.0 Urobilinogen) [facility] AND [id number] 19:58:00 Test Item Value Reference Range Interpretation Comments UA Nitrite (test code Negative (12/04/21 2:58 = UA Nitrite) PM) [facility] AND [id number] 19:58:00 Test Item Value Reference Range Interpretation Comments UA Leuk Est (test Negative (12/04/21 2:58 code = UA Leuk Est) PM) [facility] [id number] 19:58:00 Test Item Value Reference Range Interpretation Comments UA Sq Epi (test code = UA Sq Moderate /LPF Epi) [facility] [id number] 19:58:00 Test Item Value Reference Range Interpretation Comments UA WBC (test code = 2 See_Comment [Automa daphne message] The UA WBC) system which ge nerated this result transmit daphne reference range : <=5. The reference range was not used to interpr et this result as fatuma l/abnormal. [facility] [id number] 19:58:00 Test Item Value Reference Range Interpretation Comments UA RBC (test code = 2 See_Comment [Automa daphne message] The UA RBC) system which ge nerated this result transmit daphne reference range : <=2. The reference range was not used to interpr et this result as fatuma l/abnormal. [facility] [id number] 19:58:00 Test Item Value Reference Range Interpretation Comments UA Bacteria (test code = UA Occasional /HPF Bacteria) [facility] [id number] 19:58:00 Test Item Value Reference Range Interpretation Comments UA Mucus (test code = UA Mucus) Few /LPF [facility] [id number] 19:58:00 Test Item Value Reference Range Interpretation Comments U Preg (test code = U Negative (12/04/21 2:58 Preg) PM) [facility] [id number] 19:58:00 Test Item Value Reference Range Interpretation Comments UA Color (test code = Dark Yellow UA Color) *NA*(12/04/21 2:58 PM) [facility] [id number] 19:58:00 Test Item Value Reference Range Interpretation Comments UA Turbidity (test code Slight *ABN*(12/04/21 = UA Turbidity) 2:58 PM) [facility] [id number] 19:58:00 Test Item Value Reference Range Interpretation Comments UA Spec Grav (test code = UA Spec 1.031 1 Grav) [facility] [id number] 19:58:00 Test Item Value Reference Range Interpretation Comments UA pH (test code = UA pH) 5.0 1 5.0-8.0 [facility] [id number] 19:58:00 Test Item Value Reference Range Interpretation Comments UA Protein (test code = UA Negative mg/dL Protein) [facility] AND [id number] 19:58:00 Test Item Value Reference Range Interpretation Comments UA Glucose (test code = UA Negative mg/dL Glucose) [facility] AND [id number] 19:58:00 Test Item Value Reference Range Interpretation Comments UA Color (test code = Dark Yellow UA Color) *NA*(12/04/21 2:58 PM) [facility] AND [id number] 19:58:00 Test Item Value Reference Range Interpretation Comments UA Ketones (test code = UA Trace mg/dL Ketones) [facility] AND [id number] 19:58:00 Test Item Value Reference Range Interpretation Comments UA Turbidity (test code Slight *ABN*(12/04/21 = UA Turbidity) 2:58 PM) [facility] AND [id number] 19:58:00 Test Item Value Reference Range Interpretation Comments UA Bili (test code = Negative *NA*(12/04/21 UA Bili) 2:58 PM) [facility] AND [id number] 19:58:00 Test Item Value Reference Range Interpretation Comments UA Spec Grav (test code = UA Spec 1.031 1 Grav) [facility] AND [id number] 19:58:00 Test Item Value Reference Range Interpretation Comments UA Blood (test code = Negative (12/04/21 2:58 UA Blood) PM) [facility] AND [id number] 19:58:00 Test Item Value Reference Range Interpretation Comments UA pH (test code = UA pH) 5.0 1 5.0-8.0 [facility] AND [id number] 19:58:00 Test Item Value Reference Range Interpretation Comments UA Protein (test code = UA Negative mg/dL Protein) [facility] AND [id number] 19:58:00 Test Item Value Reference Range Interpretation Comments UA Urobilinogen (test code = UA no gt 0.1-1.0 Urobilinogen) [facility] AND [id number] 19:58:00 Test Item Value Reference Range Interpretation Comments UA Nitrite (test code Negative (12/04/21 2:58 = UA Nitrite) PM) [facility] AND [id number] 19:58:00 Test Item Value Reference Range Interpretation Comments UA Glucose (test code = UA Negative mg/dL Glucose) [facility] AND [id number] 19:58:00 Test Item Value Reference Range Interpretation Comments UA Leuk Est (test Negative (12/04/21 2:58 code = UA Leuk Est) PM) [facility] AND [id number] 19:58:00 Test Item Value Reference Range Interpretation Comments UA Ketones (test code = UA Trace mg/dL Ketones) [facility] AND [id number] 19:58:00 Test Item Value Reference Range Interpretation Comments UA Sq Epi (test code = UA Sq Moderate /LPF Epi) [facility] AND [id number] 19:58:00 Test Item Value Reference Range Interpretation Comments UA Bili (test code = Negative *NA*(12/04/21 UA Bili) 2:58 PM) [facility] AND [id number] 19:58:00 Test Item Value Reference Range Interpretation Comments UA Blood (test code = Negative (12/04/21 2:58 UA Blood) PM) [facility] AND [id number] 19:58:00 Test Item Value Reference Range Interpretation Comments UA WBC (test code = 2 See_Comment [Automa daphne message] The UA WBC) system which ge nerated this result transmit daphne reference range : <=5. The reference range was not used to interpr et this result as fatuma l/abnormal. [facility] AND [id number] 19:58:00 Test Item Value Reference Range Interpretation Comments UA Urobilinogen (test code = UA no gt 0.1-1.0 Urobilinogen) [facility] AND [id number] 19:58:00 Test Item Value Reference Range Interpretation Comments UA RBC (test code = 2 See_Comment [Automa daphne message] The UA RBC) system which ge nerated this result transmit daphne reference range : <=2. The reference range was not used to interpr et this result as fatuma l/abnormal. [facility] AND [id number] 19:58:00 Test Item Value Reference Range Interpretation Comments UA Nitrite (test code Negative (12/04/21 2:58 = UA Nitrite) PM) [facility] [id number] 19:58:00 Test Item Value Reference Range Interpretation Comments UA Bacteria (test code = UA Occasional /HPF Bacteria) [facility] [id number] 19:58:00 Test Item Value Reference Range Interpretation Comments UA Leuk Est (test Negative (12/04/21 2:58 code = UA Leuk Est) PM) [facility] [id number] 19:58:00 Test Item Value Reference Range Interpretation Comments UA Mucus (test code = UA Mucus) Few /LPF [facility] [id number] 19:58:00 Test Item Value Reference Range Interpretation Comments UA Sq Epi (test code = UA Sq Moderate /LPF Epi) [facility] [id number] 19:58:00 Test Item Value Reference Range Interpretation Comments U Preg (test code = U Negative (12/04/21 2:58 Preg) PM) [facility] [id number] 19:58:00 Test Item Value Reference Range Interpretation Comments UA WBC (test code = 2 See_Comment [Automa daphne message] The UA WBC) system which ge nerated this result transmit daphne reference range : <=5. The reference range was not used to interpr et this result as fatuma l/abnormal. [facility] [id number] 19:58:00 Test Item Value Reference Range Interpretation Comments UA RBC (test code = 2 See_Comment [Automa daphne message] The UA RBC) system which ge nerated this result transmit daphne reference range : <=2. The reference range was not used to interpr et this result as fatuma l/abnormal. [facility] [id number] 19:58:00 Test Item Value Reference Range Interpretation Comments UA Bacteria (test code = UA Occasional /HPF Bacteria) [facility] [id number] 19:58:00 Test Item Value Reference Range Interpretation Comments UA Mucus (test code = UA Mucus) Few /LPF [facility] [id number] 19:58:00 Test Item Value Reference Range Interpretation Comments U Preg (test code = U Negative (6/24/22 2:58 Preg) PM) [facility] [id number] 19:58:00 Test Item Value Reference Range Interpretation Comments UA Color (test code = Dark Yellow UA Color) *NA*(12/04/21 2:58 PM) [facility] [id number] 19:58:00 Test Item Value Reference Range Interpretation Comments UA Turbidity (test code Slight *ABN*(12/04/21 = UA Turbidity) 2:58 PM) [facility] AND [id number] 19:58:00 Test Item Value Reference Range Interpretation Comments UA Spec Grav (test code = UA Spec 1.031 1 Grav) [facility] AND [id number] 19:58:00 Test Item Value Reference Range Interpretation Comments UA pH (test code = UA pH) 5.0 1 5.0-8.0 [facility] AND [id number] 19:58:00 Test Item Value Reference Range Interpretation Comments UA Protein (test code = UA Negative mg/dL Protein) [facility] AND [id number] 19:58:00 Test Item Value Reference Range Interpretation Comments UA Glucose (test code = UA Negative mg/dL Glucose) [facility] AND [id number] 19:58:00 Test Item Value Reference Range Interpretation Comments UA Ketones (test code = UA Trace mg/dL Ketones) [facility] AND [id number] 19:58:00 Test Item Value Reference Range Interpretation Comments UA Bili (test code = Negative *NA*(12/04/21 UA Bili) 2:58 PM) [facility] AND [id number] 19:58:00 Test Item Value Reference Range Interpretation Comments UA Blood (test code = Negative (12/04/21 2:58 UA Blood) PM) [facility] AND [id number] 19:58:00 Test Item Value Reference Range Interpretation Comments UA Urobilinogen (test code = UA no gt 0.1-1.0 Urobilinogen) [facility] AND [id number] 19:58:00 Test Item Value Reference Range Interpretation Comments UA Nitrite (test code Negative (12/04/21 2:58 = UA Nitrite) PM) [facility] [id number] 19:58:00 Test Item Value Reference Range Interpretation Comments UA Leuk Est (test Negative (12/04/21 2:58 code = UA Leuk Est) PM) [facility] [id number] 19:58:00 Test Item Value Reference Range Interpretation Comments UA Sq Epi (test code = UA Sq Moderate /LPF Epi) [facility] [id number] 19:58:00 Test Item Value Reference Range Interpretation Comments UA WBC (test code = 2 See_Comment [Automa daphne message] The UA WBC) system which ge nerated this result transmit daphne reference range : <=5. The reference range was not used to interpr et this result as fatuma l/abnormal. [facility] [id number] 19:58:00 Test Item Value Reference Range Interpretation Comments UA RBC (test code = 2 See_Comment [Automa daphne message] The UA RBC) system which ge nerated this result transmit daphne reference range : <=2. The reference range was not used to interpr et this result as fatuma l/abnormal. [facility] [id number] 19:58:00 Test Item Value Reference Range Interpretation Comments UA Bacteria (test code = UA Occasional /HPF Bacteria) [facility] [id number] 19:58:00 Test Item Value Reference Range Interpretation Comments UA Mucus (test code = UA Mucus) Few /LPF [facility] [id number] 19:58:00 Test Item Value Reference Range Interpretation Comments U Preg (test code = U Negative (12/04/21 2:58 Preg) PM) [facility] [id number] 19:58:00 Test Item Value Reference Range Interpretation Comments UA Color (test code = Dark Yellow UA Color) *NA*(12/04/21 2:58 PM) [facility] [id number] 19:58:00 Test Item Value Reference Range Interpretation Comments UA Turbidity (test code Slight *ABN*(12/04/21 = UA Turbidity) 2:58 PM) [facility] [id number] 19:58:00 Test Item Value Reference Range Interpretation Comments UA Spec Grav (test code = UA Spec 1.031 1 Grav) [facility] [id number] 19:58:00 Test Item Value Reference Range Interpretation Comments UA Color (test code = Dark Yellow UA Color) *NA*(12/04/21 2:58 PM) [facility] AND [id number] 19:58:00 Test Item Value Reference Range Interpretation Comments UA pH (test code = UA pH) 5.0 1 5.0-8.0 [facility] AND [id number] 19:58:00 Test Item Value Reference Range Interpretation Comments UA Turbidity (test code Slight *ABN*(12/04/21 = UA Turbidity) 2:58 PM) [facility] AND [id number] 19:58:00 Test Item Value Reference Range Interpretation Comments UA Spec Grav (test code = UA Spec 1.031 1 Grav) [facility] AND [id number] 19:58:00 Test Item Value Reference Range Interpretation Comments UA pH (test code = UA pH) 5.0 1 5.0-8.0 [facility] AND [id number] 19:58:00 Test Item Value Reference Range Interpretation Comments UA Protein (test code = UA Negative mg/dL Protein) [facility] AND [id number] 19:58:00 Test Item Value Reference Range Interpretation Comments UA Glucose (test code = UA Negative mg/dL Glucose) [facility] AND [id number] 19:58:00 Test Item Value Reference Range Interpretation Comments UA Protein (test code = UA Negative mg/dL Protein) [facility] AND [id number] 19:58:00 Test Item Value Reference Range Interpretation Comments UA Ketones (test code = UA Trace mg/dL Ketones) [facility] AND [id number] 19:58:00 Test Item Value Reference Range Interpretation Comments UA Bili (test code = Negative *NA*(12/04/21 UA Bili) 2:58 PM) [facility] AND [id number] 19:58:00 Test Item Value Reference Range Interpretation Comments UA Blood (test code = Negative (12/04/21 2:58 UA Blood) PM) [facility] AND [id number] 19:58:00 Test Item Value Reference Range Interpretation Comments UA Urobilinogen (test code = UA no gt 0.1-1.0 Urobilinogen) [facility] AND [id number] 19:58:00 Test Item Value Reference Range Interpretation Comments UA Nitrite (test code Negative (12/04/21 2:58 = UA Nitrite) PM) [facility] [id number] 19:58:00 Test Item Value Reference Range Interpretation Comments UA Leuk Est (test Negative (12/04/21 2:58 code = UA Leuk Est) PM) [facility] [id number] 19:58:00 Test Item Value Reference Range Interpretation Comments UA Glucose (test code = UA Negative mg/dL Glucose) [facility] [id number] 19:58:00 Test Item Value Reference Range Interpretation Comments UA Sq Epi (test code = UA Sq Moderate /LPF Epi) [facility] [id number] 19:58:00 Test Item Value Reference Range Interpretation Comments UA WBC (test code = 2 See_Comment [Automa daphne message] The UA WBC) system which ge nerated this result transmit daphne reference range : <=5. The reference range was not used to interpr et this result as fatuma l/abnormal. [facility] [id number] 19:58:00 Test Item Value Reference Range Interpretation Comments UA RBC (test code = 2 See_Comment [Automa daphne message] The UA RBC) system which ge nerated this result transmit daphne reference range : <=2. The reference range was not used to interpr et this result as fatuma l/abnormal. [facility] [id number] 19:58:00 Test Item Value Reference Range Interpretation Comments UA Bacteria (test code = UA Occasional /HPF Bacteria) [facility] [id number] 19:58:00 Test Item Value Reference Range Interpretation Comments UA Ketones (test code = UA Trace mg/dL Ketones) [facility] [id number] 19:58:00 Test Item Value Reference Range Interpretation Comments UA Mucus (test code = UA Mucus) Few /LPF [facility] [id number] 19:58:00 Test Item Value Reference Range Interpretation Comments U Preg (test code = U Negative (12/04/21 2:58 Preg) PM) [facility] [id number] 19:58:00 Test Item Value Reference Range Interpretation Comments UA Bili (test code = Negative *NA*(12/04/21 UA Bili) 2:58 PM) [facility] [id number] 19:58:00 Test Item Value Reference Range Interpretation Comments UA Blood (test code = Negative (12/04/21 2:58 UA Blood) PM) [facility] [id number] 19:58:00 Test Item Value Reference Range Interpretation Comments UA Urobilinogen (test code = UA no gt 0.1-1.0 Urobilinogen) [facility] [id number] 19:58:00 Test Item Value Reference Range Interpretation Comments UA Nitrite (test code Negative (12/04/21 2:58 = UA Nitrite) PM) [facility] [id number] 19:58:00 Test Item Value Reference Range Interpretation Comments UA Leuk Est (test Negative (12/04/21 2:58 code = UA Leuk Est) PM) [facility] [id number] 19:58:00 Test Item Value Reference Range Interpretation Comments UA Sq Epi (test code = UA Sq Moderate /LPF Epi) [facility] [id number] 19:58:00 Test Item Value Reference Range Interpretation Comments UA WBC (test code = 2 See_Comment [Automa daphne message] The UA WBC) system which ge nerated this result transmit daphne reference range : <=5. The reference range was not used to interpr et this result as fatuma l/abnormal. [facility] [id number] 19:58:00 Test Item Value Reference Range Interpretation Comments UA RBC (test code = 2 See_Comment [Automa daphne message] The UA RBC) system which ge nerated this result transmit daphne reference range : <=2. The reference range was not used to interpr et this result as fatuma l/abnormal. [facility] [id number] 19:58:00 Test Item Value Reference Range Interpretation Comments UA Bacteria (test code = UA Occasional /HPF Bacteria) [facility] [id number] 19:58:00 Test Item Value Reference Range Interpretation Comments UA Mucus (test code = UA Mucus) Few /LPF [facility] [id number] 19:58:00 Test Item Value Reference Range Interpretation Comments U Preg (test code = U Negative (12/04/21 2:58 Preg) PM) [facility] AND [id number] 19:58:00 Test Item Value Reference Range Interpretation Comments UA Color (test code = Dark Yellow UA Color) *NA*(12/04/21 2:58 PM) [facility] AND [id number] 19:58:00 Test Item Value Reference Range Interpretation Comments UA Turbidity (test code Slight *ABN*(12/04/21 = UA Turbidity) 2:58 PM) [facility] AND [id number] 19:58:00 Test Item Value Reference Range Interpretation Comments UA Spec Grav (test code = UA Spec 1.031 1 Grav) [facility] AND [id number] 19:58:00 Test Item Value Reference Range Interpretation Comments UA pH (test code = UA pH) 5.0 1 5.0-8.0 [facility] AND [id number] 19:58:00 Test Item Value Reference Range Interpretation Comments UA Protein (test code = UA Negative mg/dL Protein) [facility] AND [id number] 19:58:00 Test Item Value Reference Range Interpretation Comments UA Glucose (test code = UA Negative mg/dL Glucose) [facility] AND [id number] 19:58:00 Test Item Value Reference Range Interpretation Comments UA Ketones (test code = UA Trace mg/dL Ketones) [facility] AND [id number] 19:58:00 Test Item Value Reference Range Interpretation Comments UA Bili (test code = Negative *NA*(12/04/21 UA Bili) 2:58 PM) [facility] AND [id number] 19:58:00 Test Item Value Reference Range Interpretation Comments UA Blood (test code = Negative (12/04/21 2:58 UA Blood) PM) [facility] AND [id number] 19:58:00 Test Item Value Reference Range Interpretation Comments UA Urobilinogen (test code = UA no gt 0.1-1.0 Urobilinogen) [facility] AND [id number] 19:58:00 Test Item Value Reference Range Interpretation Comments UA Nitrite (test code Negative (12/04/21 2:58 = UA Nitrite) PM) [facility] [id number] 19:58:00 Test Item Value Reference Range Interpretation Comments UA Leuk Est (test Negative (12/04/21 2:58 code = UA Leuk Est) PM) [facility] [id number] 19:58:00 Test Item Value Reference Range Interpretation Comments UA Sq Epi (test code = UA Sq Moderate /LPF Epi) [facility] [id number] 19:58:00 Test Item Value Reference Range Interpretation Comments UA WBC (test code = 2 See_Comment [Automa daphne message] The UA WBC) system which ge nerated this result transmit daphne reference range : <=5. The reference range was not used to interpr et this result as fatuma l/abnormal. [facility] [id number] 19:58:00 Test Item Value Reference Range Interpretation Comments UA RBC (test code = 2 See_Comment [Automa daphne message] The UA RBC) system which ge nerated this result transmit daphne reference range : <=2. The reference range was not used to interpr et this result as fatuma l/abnormal. [facility] [id number] 19:58:00 Test Item Value Reference Range Interpretation Comments UA Bacteria (test code = UA Occasional /HPF Bacteria) [facility] [id number] 19:58:00 Test Item Value Reference Range Interpretation Comments UA Mucus (test code = UA Mucus) Few /LPF [facility] [id number] 19:58:00 Test Item Value Reference Range Interpretation Comments U Preg (test code = U Negative (12/04/21 2:58 Preg) PM) [facility] [id number] 19:58:00 Test Item Value Reference Range Interpretation Comments UA Color (test code = Dark Yellow UA Color) *NA*(12/04/21 2:58 PM) [facility] [id number] 19:58:00 Test Item Value Reference Range Interpretation Comments UA Turbidity (test code Slight *ABN*(12/04/21 = UA Turbidity) 2:58 PM) [facility] [id number] 19:58:00 Test Item Value Reference Range Interpretation Comments UA Spec Grav (test code = UA Spec 1.031 1 Grav) [facility] [id number] 19:58:00 Test Item Value Reference Range Interpretation Comments UA pH (test code = UA pH) 5.0 1 5.0-8.0 [facility] [id number] 19:58:00 Test Item Value Reference Range Interpretation Comments UA Protein (test code = UA Negative mg/dL Protein) [facility] AND [id number] 19:58:00 Test Item Value Reference Range Interpretation Comments UA Glucose (test code = UA Negative mg/dL Glucose) [facility] [id number] 19:58:00 Test Item Value Reference Range Interpretation Comments UA Ketones (test code = UA Trace mg/dL Ketones) [facility] AND [id number] 19:58:00 Test Item Value Reference Range Interpretation Comments UA Bili (test code = Negative *NA*(12/04/21 UA Bili) 2:58 PM) [facility] AND [id number] 19:58:00 Test Item Value Reference Range Interpretation Comments UA Blood (test code = Negative (12/04/21 2:58 UA Blood) PM) [facility] AND [id number] 19:58:00 Test Item Value Reference Range Interpretation Comments UA Urobilinogen (test code = UA no gt 0.1-1.0 Urobilinogen) [facility] AND [id number] 19:58:00 Test Item Value Reference Range Interpretation Comments UA Nitrite (test code Negative (12/04/21 2:58 = UA Nitrite) PM) [facility] AND [id number] 19:58:00 Test Item Value Reference Range Interpretation Comments UA Color (test code = Dark Yellow UA Color) *NA*(12/04/21 2:58 PM) [facility] [id number] 19:58:00 Test Item Value Reference Range Interpretation Comments UA Color (test code = Dark Yellow UA Color) *NA*(12/04/21 2:58 PM) [facility] [id number] 19:58:00 Test Item Value Reference Range Interpretation Comments UA Turbidity (test code Slight *ABN*(12/04/21 = UA Turbidity) 2:58 PM) [facility] AND [id number] 19:58:00 Test Item Value Reference Range Interpretation Comments UA Turbidity (test code Slight *ABN*(12/04/21 = UA Turbidity) 2:58 PM) [facility] AND [id number] 19:58:00 Test Item Value Reference Range Interpretation Comments UA Spec Grav (test code = UA Spec 1.031 1 Grav) [facility] AND [id number] 19:58:00 Test Item Value Reference Range Interpretation Comments UA pH (test code = UA pH) 5.0 1 5.0-8.0 [facility] AND [id number] 19:58:00 Test Item Value Reference Range Interpretation Comments UA Protein (test code = UA Negative mg/dL Protein) [facility] AND [id number] 19:58:00 Test Item Value Reference Range Interpretation Comments UA Glucose (test code = UA Negative mg/dL Glucose) [facility] AND [id number] 19:58:00 Test Item Value Reference Range Interpretation Comments UA Ketones (test code = UA Trace mg/dL Ketones) [facility] AND [id number] 19:58:00 Test Item Value Reference Range Interpretation Comments UA Bili (test code = Negative *NA*(12/04/21 UA Bili) 2:58 PM) [facility] AND [id number] 19:58:00 Test Item Value Reference Range Interpretation Comments UA Blood (test code = Negative (12/04/21 2:58 UA Blood) PM) [facility] AND [id number] 19:58:00 Test Item Value Reference Range Interpretation Comments UA Urobilinogen (test code = UA no gt 0.1-1.0 Urobilinogen) [facility] AND [id number] 19:58:00 Test Item Value Reference Range Interpretation Comments UA Nitrite (test code Negative (12/04/21 2:58 = UA Nitrite) PM) [facility] AND [id number] 19:58:00 Test Item Value Reference Range Interpretation Comments UA Leuk Est (test Negative (12/04/21 2:58 code = UA Leuk Est) PM) [facility] AND [id number] 19:58:00 Test Item Value Reference Range Interpretation Comments UA Spec Grav (test code = UA Spec 1.031 1 Grav) [facility] [id number] 19:58:00 Test Item Value Reference Range Interpretation Comments UA Sq Epi (test code = UA Sq Moderate /LPF Epi) [facility] [id number] 19:58:00 Test Item Value Reference Range Interpretation Comments UA WBC (test code = 2 See_Comment [Automa daphne message] The UA WBC) system which ge nerated this result transmit daphne reference range : <=5. The reference range was not used to interpr et this result as fatuma l/abnormal. [facility] [id number] 19:58:00 Test Item Value Reference Range Interpretation Comments UA RBC (test code = 2 See_Comment [Automa daphne message] The UA RBC) system which ge nerated this result transmit daphne reference range : <=2. The reference range was not used to interpr et this result as fatuma l/abnormal. [facility] [id number] 19:58:00 Test Item Value Reference Range Interpretation Comments UA Bacteria (test code = UA Occasional /HPF Bacteria) [facility] [id number] 19:58:00 Test Item Value Reference Range Interpretation Comments UA Mucus (test code = UA Mucus) Few /LPF [facility] [id number] 19:58:00 Test Item Value Reference Range Interpretation Comments U Preg (test code = U Negative (12/04/21 2:58 Preg) PM) [facility] [id number] 19:58:00 Test Item Value Reference Range Interpretation Comments UA pH (test code = UA pH) 5.0 1 5.0-8.0 [facility] [id number] 19:58:00 Test Item Value Reference Range Interpretation Comments UA Protein (test code = UA Negative mg/dL Protein) [facility] [id number] 19:58:00 Test Item Value Reference Range Interpretation Comments UA Glucose (test code = UA Negative mg/dL Glucose) [facility] [id number] 19:58:00 Test Item Value Reference Range Interpretation Comments UA Ketones (test code = UA Trace mg/dL Ketones) [facility] [id number] 19:58:00 Test Item Value Reference Range Interpretation Comments UA Leuk Est (test Negative (12/04/21 2:58 code = UA Leuk Est) PM) [facility] [id number] 19:58:00 Test Item Value Reference Range Interpretation Comments UA Bili (test code = Negative *NA*(12/04/21 UA Bili) 2:58 PM) [facility] [id number] 19:58:00 Test Item Value Reference Range Interpretation Comments UA Blood (test code = Negative (12/04/21 2:58 UA Blood) PM) [facility] [id number] 19:58:00 Test Item Value Reference Range Interpretation Comments UA Urobilinogen (test code = UA no gt 0.1-1.0 Urobilinogen) [facility] [id number] 19:58:00 Test Item Value Reference Range Interpretation Comments UA Nitrite (test code Negative (12/04/21 2:58 = UA Nitrite) PM) [facility] [id number] 19:58:00 Test Item Value Reference Range Interpretation Comments UA Leuk Est (test Negative (12/04/21 2:58 code = UA Leuk Est) PM) [facility] [id number] 19:58:00 Test Item Value Reference Range Interpretation Comments UA Sq Epi (test code = UA Sq Moderate /LPF Epi) [facility] [id number] 19:58:00 Test Item Value Reference Range Interpretation Comments UA WBC (test code = 2 See_Comment [Automa daphne message] The UA WBC) system which ge nerated this result transmit daphne reference range : <=5. The reference range was not used to interpr et this result as fatuma l/abnormal. [facility] [id number] 19:58:00 Test Item Value Reference Range Interpretation Comments UA RBC (test code = 2 See_Comment [Automa daphne message] The UA RBC) system which ge nerated this result transmit daphne reference range : <=2. The reference range was not used to interpr et this result as fatuma l/abnormal. [facility] [id number] 19:58:00 Test Item Value Reference Range Interpretation Comments UA Bacteria (test code = UA Occasional /HPF Bacteria) [facility] [id number] 19:58:00 Test Item Value Reference Range Interpretation Comments UA Mucus (test code = UA Mucus) Few /LPF [facility] [id number] 19:58:00 Test Item Value Reference Range Interpretation Comments UA Sq Epi (test code = UA Sq Moderate /LPF Epi) [facility] [id number] 19:58:00 Test Item Value Reference Range Interpretation Comments U Preg (test code = U Negative (12/04/21 2:58 Preg) PM) [facility] [id number] 19:58:00 Test Item Value Reference Range Interpretation Comments UA WBC (test code = 2 See_Comment [Automa daphne message] The UA WBC) system which ge nerated this result transmit daphne reference range : <=5. The reference range was not used to interpr et this result as fatuma l/abnormal. [facility] [id number] 19:58:00 Test Item Value Reference Range Interpretation Comments UA RBC (test code = 2 See_Comment [Automa daphne message] The UA RBC) system which ge nerated this result transmit daphne reference range : <=2. The reference range was not used to interpr et this result as fatuma l/abnormal. [facility] [id number] 19:58:00 Test Item Value Reference Range Interpretation Comments UA Bacteria (test code = UA Occasional /HPF Bacteria) [facility] [id number] 19:58:00 Test Item Value Reference Range Interpretation Comments UA Mucus (test code = UA Mucus) Few /LPF [facility] [id number] 19:58:00 Test Item Value Reference Range Interpretation Comments U Preg (test code = U Negative (12/04/21 2:58 Preg) PM) [facility] [id number] 19:58:00 Test Item Value Reference Range Interpretation Comments UA Color (test code = Dark Yellow UA Color) *NA*(12/04/21 2:58 PM) [facility] [id number] 19:58:00 Test Item Value Reference Range Interpretation Comments UA Turbidity (test code Slight *ABN*(12/04/21 = UA Turbidity) 2:58 PM) [facility] [id number] 19:58:00 Test Item Value Reference Range Interpretation Comments UA Spec Grav (test code = UA Spec 1.031 1 Grav) [facility] AND [id number] 19:58:00 Test Item Value Reference Range Interpretation Comments UA pH (test code = UA pH) 5.0 1 5.0-8.0 [facility] AND [id number] 19:58:00 Test Item Value Reference Range Interpretation Comments UA Protein (test code = UA Negative mg/dL Protein) [facility] AND [id number] 19:58:00 Test Item Value Reference Range Interpretation Comments UA Glucose (test code = UA Negative mg/dL Glucose) [facility] AND [id number] 19:58:00 Test Item Value Reference Range Interpretation Comments UA Ketones (test code = UA Trace mg/dL Ketones) [facility] AND [id number] 19:58:00 Test Item Value Reference Range Interpretation Comments UA Bili (test code = Negative *NA*(12/04/21 UA Bili) 2:58 PM) [facility] AND [id number] 19:58:00 Test Item Value Reference Range Interpretation Comments UA Blood (test code = Negative (12/04/21 2:58 UA Blood) PM) [facility] AND [id number] 19:58:00 Test Item Value Reference Range Interpretation Comments UA Urobilinogen (test code = UA no gt 0.1-1.0 Urobilinogen) [facility] AND [id number] 19:58:00 Test Item Value Reference Range Interpretation Comments UA Nitrite (test code Negative (12/04/21 2:58 = UA Nitrite) PM) [facility] AND [id number] 19:58:00 Test Item Value Reference Range Interpretation Comments UA Leuk Est (test Negative (12/04/21 2:58 code = UA Leuk Est) PM) [facility] AND [id number] 19:58:00 Test Item Value Reference Range Interpretation Comments UA Sq Epi (test code = UA Sq Moderate /LPF Epi) [facility] AND [id number] 19:58:00 Test Item Value Reference Range Interpretation Comments UA WBC (test code = 2 See_Comment [Automa daphne message] The UA WBC) system which ge nerated this result transmit daphne reference range : <=5. The reference range was not used to interpr et this result as fatuma l/abnormal. [facility] [id number] 19:58:00 Test Item Value Reference Range Interpretation Comments UA RBC (test code = 2 See_Comment [Automa daphne message] The UA RBC) system which ge nerated this result transmit daphne reference range : <=2. The reference range was not used to interpr et this result as fatuma l/abnormal. [facility] [id number] 19:58:00 Test Item Value Reference Range Interpretation Comments UA Bacteria (test code = UA Occasional /HPF Bacteria) [facility] [id number] 19:58:00 Test Item Value Reference Range Interpretation Comments UA Mucus (test code = UA Mucus) Few /LPF [facility] [id number] 19:58:00 Test Item Value Reference Range Interpretation Comments U Preg (test code = U Negative (12/04/21 2:58 Preg) PM) [facility] [id number] 19:58:00 Test Item Value Reference Range Interpretation Comments UA Color (test code = Dark Yellow UA Color) *NA*(12/04/21 2:58 PM) [facility] [id number] 19:58:00 Test Item Value Reference Range Interpretation Comments UA Turbidity (test code Slight *ABN*(12/04/21 = UA Turbidity) 2:58 PM) [facility] [id number] 19:58:00 Test Item Value Reference Range Interpretation Comments UA Spec Grav (test code = UA Spec 1.031 1 Grav) [facility] [id number] 19:58:00 Test Item Value Reference Range Interpretation Comments UA pH (test code = UA pH) 5.0 1 5.0-8.0 [facility] [id number] 19:58:00 Test Item Value Reference Range Interpretation Comments UA Protein (test code = UA Negative mg/dL Protein) [facility] [id number] 19:58:00 Test Item Value Reference Range Interpretation Comments UA Glucose (test code = UA Negative mg/dL Glucose) [facility] [id number] 19:58:00 Test Item Value Reference Range Interpretation Comments UA Ketones (test code = UA Trace mg/dL Ketones) [facility] [id number] 19:58:00 Test Item Value Reference Range Interpretation Comments UA Bili (test code = Negative *NA*(12/04/21 UA Bili) 2:58 PM) [facility] [id number] 19:58:00 Test Item Value Reference Range Interpretation Comments UA Blood (test code = Negative (12/04/21 2:58 UA Blood) PM) [facility] [id number] 19:58:00 Test Item Value Reference Range Interpretation Comments UA Urobilinogen (test code = UA no gt 0.1-1.0 Urobilinogen) [facility] [id number] 19:58:00 Test Item Value Reference Range Interpretation Comments UA Nitrite (test code Negative (12/04/21 2:58 = UA Nitrite) PM) [facility] [id number] 19:58:00 Test Item Value Reference Range Interpretation Comments UA Leuk Est (test Negative (12/04/21 2:58 code = UA Leuk Est) PM) [facility] [id number] 19:58:00 Test Item Value Reference Range Interpretation Comments UA Sq Epi (test code = UA Sq Moderate /LPF Epi) [facility] [id number] 19:58:00 Test Item Value Reference Range Interpretation Comments UA WBC (test code = 2 See_Comment [Automa daphne message] The UA WBC) system which ge nerated this result transmit daphne reference range : <=5. The reference range was not used to interpr et this result as fatuma l/abnormal. [facility] [id number] 19:58:00 Test Item Value Reference Range Interpretation Comments UA RBC (test code = 2 See_Comment [Automa daphne message] The UA RBC) system which ge nerated this result transmit daphne reference range : <=2. The reference range was not used to interpr et this result as fatuma l/abnormal. [facility] [id number] 19:58:00 Test Item Value Reference Range Interpretation Comments UA Bacteria (test code = UA Occasional /HPF Bacteria) [facility] [id number] 19:58:00 Test Item Value Reference Range Interpretation Comments UA Mucus (test code = UA Mucus) Few /LPF [facility] [id number] 19:58:00 Test Item Value Reference Range Interpretation Comments U Preg (test code = U Negative (12/04/21 2:58 Preg) PM) [facility] AND [id number] 19:58:00 Test Item Value Reference Range Interpretation Comments UA Color (test code = Dark Yellow UA Color) *NA*(12/04/21 2:58 PM) [facility] [id number] 19:58:00 Test Item Value Reference Range Interpretation Comments UA Turbidity (test code Slight *ABN*(12/04/21 = UA Turbidity) 2:58 PM) [facility] [id number] 19:58:00 Test Item Value Reference Range Interpretation Comments UA Spec Grav (test code = UA Spec 1.031 1 Grav) [facility] AND [id number] 19:58:00 Test Item Value Reference Range Interpretation Comments UA pH (test code = UA pH) 5.0 1 5.0-8.0 [facility] AND [id number] 19:58:00 Test Item Value Reference Range Interpretation Comments UA Protein (test code = UA Negative mg/dL Protein) [facility] [id number] 19:58:00 Test Item Value Reference Range Interpretation Comments UA Glucose (test code = UA Negative mg/dL Glucose) [facility] AND [id number] 19:58:00 Test Item Value Reference Range Interpretation Comments UA Ketones (test code = UA Trace mg/dL Ketones) [facility] AND [id number] 19:58:00 Test Item Value Reference Range Interpretation Comments UA Bili (test code = Negative *NA*(12/04/21 UA Bili) 2:58 PM) [facility] [id number] 19:58:00 Test Item Value Reference Range Interpretation Comments UA Blood (test code = Negative (12/04/21 2:58 UA Blood) PM) [facility] [id number] 19:58:00 Test Item Value Reference Range Interpretation Comments UA Urobilinogen (test code = UA no gt 0.1-1.0 Urobilinogen) [facility] [id number] 19:58:00 Test Item Value Reference Range Interpretation Comments UA Nitrite (test code Negative (12/04/21 2:58 = UA Nitrite) PM) [facility] [id number] 19:58:00 Test Item Value Reference Range Interpretation Comments UA Leuk Est (test Negative (12/04/21 2:58 code = UA Leuk Est) PM) [facility] [id number] 19:58:00 Test Item Value Reference Range Interpretation Comments UA Sq Epi (test code = UA Sq Moderate /LPF Epi) [facility] [id number] 19:58:00 Test Item Value Reference Range Interpretation Comments UA WBC (test code = 2 See_Comment [Automa daphne message] The UA WBC) system which ge nerated this result transmit daphne reference range : <=5. The reference range was not used to interpr et this result as fatuma l/abnormal. [facility] [id number] 19:58:00 Test Item Value Reference Range Interpretation Comments UA RBC (test code = 2 See_Comment [Automa daphne message] The UA RBC) system which ge nerated this result transmit daphne reference range : <=2. The reference range was not used to interpr et this result as fatuma l/abnormal. [facility] [id number] 19:58:00 Test Item Value Reference Range Interpretation Comments UA Bacteria (test code = UA Occasional /HPF Bacteria) [facility] [id number] 19:58:00 Test Item Value Reference Range Interpretation Comments UA Mucus (test code = UA Mucus) Few /LPF [facility] [id number] 19:58:00 Test Item Value Reference Range Interpretation Comments U Preg (test code = U Negative (12/04/21 2:58 Preg) PM) [facility] [id number] 19:58:00 Test Item Value Reference Range Interpretation Comments UA Color (test code = Dark Yellow UA Color) *NA*(12/04/21 2:58 PM) [facility] [id number] 19:58:00 Test Item Value Reference Range Interpretation Comments UA Turbidity (test code Slight *ABN*(12/04/21 = UA Turbidity) 2:58 PM) [facility] AND [id number] 19:58:00 Test Item Value Reference Range Interpretation Comments UA Spec Grav (test code = UA Spec 1.031 1 Grav) [facility] AND [id number] 19:58:00 Test Item Value Reference Range Interpretation Comments UA pH (test code = UA pH) 5.0 1 5.0-8.0 [facility] AND [id number] 19:58:00 Test Item Value Reference Range Interpretation Comments UA Protein (test code = UA Negative mg/dL Protein) [facility] AND [id number] 19:58:00 Test Item Value Reference Range Interpretation Comments UA Glucose (test code = UA Negative mg/dL Glucose) [facility] AND [id number] 19:58:00 Test Item Value Reference Range Interpretation Comments UA Ketones (test code = UA Trace mg/dL Ketones) [facility] AND [id number] 19:58:00 Test Item Value Reference Range Interpretation Comments UA Bili (test code = Negative *NA*(12/04/21 UA Bili) 2:58 PM) [facility] AND [id number] 19:58:00 Test Item Value Reference Range Interpretation Comments UA Blood (test code = Negative (12/04/21 2:58 UA Blood) PM) [facility] AND [id number] 19:58:00 Test Item Value Reference Range Interpretation Comments UA Urobilinogen (test code = UA no gt 0.1-1.0 Urobilinogen) [facility] AND [id number] 19:58:00 Test Item Value Reference Range Interpretation Comments UA Nitrite (test code Negative (12/04/21 2:58 = UA Nitrite) PM) [facility] AND [id number] 19:58:00 Test Item Value Reference Range Interpretation Comments UA Leuk Est (test Negative (12/04/21 2:58 code = UA Leuk Est) PM) [facility] AND [id number] 19:58:00 Test Item Value Reference Range Interpretation Comments UA Sq Epi (test code = UA Sq Moderate /LPF Epi) [facility] AND [id number] 19:58:00 Test Item Value Reference Range Interpretation Comments UA WBC (test code = 2 See_Comment [Automa daphne message] The UA WBC) system which ge nerated this result transmit daphne reference range : <=5. The reference range was not used to interpr et this result as fatuma l/abnormal. [facility] [id number] 19:58:00 Test Item Value Reference Range Interpretation Comments UA RBC (test code = 2 See_Comment [Automa daphne message] The UA RBC) system which ge nerated this result transmit daphne reference range : <=2. The reference range was not used to interpr et this result as fatuma l/abnormal. [facility] [id number] 19:58:00 Test Item Value Reference Range Interpretation Comments UA Bacteria (test code = UA Occasional /HPF Bacteria) [facility] [id number] 19:58:00 Test Item Value Reference Range Interpretation Comments UA Mucus (test code = UA Mucus) Few /LPF [facility] [id number] 19:58:00 Test Item Value Reference Range Interpretation Comments U Preg (test code = U Negative (12/04/21 2:58 Preg) PM) [facility] [id number] 19:58:00 Test Item Value Reference Range Interpretation Comments UA Color (test code = Dark Yellow UA Color) *NA*(12/04/21 2:58 PM) [facility] [id number] 19:58:00 Test Item Value Reference Range Interpretation Comments UA Turbidity (test code Slight *ABN*(12/04/21 = UA Turbidity) 2:58 PM) [facility] [id number] 19:58:00 Test Item Value Reference Range Interpretation Comments UA Spec Grav (test code = UA Spec 1.031 1 Grav) [facility] [id number] 19:58:00 Test Item Value Reference Range Interpretation Comments UA pH (test code = UA pH) 5.0 1 5.0-8.0 [facility] [id number] 19:58:00 Test Item Value Reference Range Interpretation Comments UA Protein (test code = UA Negative mg/dL Protein) [facility] [id number] 19:58:00 Test Item Value Reference Range Interpretation Comments UA Glucose (test code = UA Negative mg/dL Glucose) [facility] AND [id number] 19:58:00 Test Item Value Reference Range Interpretation Comments UA Ketones (test code = UA Trace mg/dL Ketones) [facility] AND [id number] 19:58:00 Test Item Value Reference Range Interpretation Comments UA Bili (test code = Negative *NA*(12/04/21 UA Bili) 2:58 PM) [facility] AND [id number] 19:58:00 Test Item Value Reference Range Interpretation Comments UA Blood (test code = Negative (12/04/21 2:58 UA Blood) PM) [facility] AND [id number] 19:58:00 Test Item Value Reference Range Interpretation Comments UA Urobilinogen (test code = UA no gt 0.1-1.0 Urobilinogen) [facility] AND [id number] 19:58:00 Test Item Value Reference Range Interpretation Comments UA Nitrite (test code Negative (12/04/21 2:58 = UA Nitrite) PM) [facility] AND [id number] 19:58:00 Test Item Value Reference Range Interpretation Comments UA Leuk Est (test Negative (12/04/21 2:58 code = UA Leuk Est) PM) [facility] AND [id number] 19:58:00 Test Item Value Reference Range Interpretation Comments UA Sq Epi (test code = UA Sq Moderate /LPF Epi) [facility] AND [id number] 19:58:00 Test Item Value Reference Range Interpretation Comments UA WBC (test code = 2 See_Comment [Automa daphne message] The UA WBC) system which ge nerated this result transmit daphne reference range : <=5. The reference range was not used to interpr et this result as fatuma l/abnormal. [facility] AND [id number] 19:58:00 Test Item Value Reference Range Interpretation Comments UA RBC (test code = 2 See_Comment [Automa daphne message] The UA RBC) system which ge nerated this result transmit daphne reference range : <=2. The reference range was not used to interpr et this result as fatuma l/abnormal. [facility] AND [id number] 19:58:00 Test Item Value Reference Range Interpretation Comments UA Bacteria (test code = UA Occasional /HPF Bacteria) [facility] [id number] 19:58:00 Test Item Value Reference Range Interpretation Comments UA Mucus (test code = UA Mucus) Few /LPF [facility] [id number] 19:58:00 Test Item Value Reference Range Interpretation Comments U Preg (test code = U Negative (12/04/21 2:58 Preg) PM) [facility] [id number] 19:58:00 Test Item Value Reference Range Interpretation Comments UA Color (test code = Dark Yellow UA Color) *NA*(12/04/21 2:58 PM) [facility] [id number] 19:58:00 Test Item Value Reference Range Interpretation Comments UA Turbidity (test code Slight *ABN*(12/04/21 = UA Turbidity) 2:58 PM) [facility] [id number] 19:58:00 Test Item Value Reference Range Interpretation Comments UA Spec Grav (test code = UA Spec 1.031 1 Grav) [facility] AND [id number] 19:58:00 Test Item Value Reference Range Interpretation Comments UA pH (test code = UA pH) 5.0 1 5.0-8.0 [facility] [id number] 19:58:00 Test Item Value Reference Range Interpretation Comments UA Protein (test code = UA Negative mg/dL Protein) [facility] [id number] 19:58:00 Test Item Value Reference Range Interpretation Comments UA Glucose (test code = UA Negative mg/dL Glucose) [facility] [id number] 19:58:00 Test Item Value Reference Range Interpretation Comments UA Ketones (test code = UA Trace mg/dL Ketones) [facility] [id number] 19:58:00 Test Item Value Reference Range Interpretation Comments UA Bili (test code = Negative *NA*(12/04/21 UA Bili) 2:58 PM) [facility] [id number] 19:58:00 Test Item Value Reference Range Interpretation Comments UA Blood (test code = Negative (12/04/21 2:58 UA Blood) PM) [facility] [id number] 19:58:00 Test Item Value Reference Range Interpretation Comments UA Urobilinogen (test code = UA no gt 0.1-1.0 Urobilinogen) [facility] AND [id number] 19:58:00 Test Item Value Reference Range Interpretation Comments UA Nitrite (test code Negative (12/04/21 2:58 = UA Nitrite) PM) [facility] AND [id number] 19:58:00 Test Item Value Reference Range Interpretation Comments UA Leuk Est (test Negative (12/04/21 2:58 code = UA Leuk Est) PM) [facility] AND [id number] 19:58:00 Test Item Value Reference Range Interpretation Comments UA Sq Epi (test code = UA Sq Moderate /LPF Epi) [facility] AND [id number] 19:58:00 Test Item Value Reference Range Interpretation Comments UA WBC (test code = 2 See_Comment [Automa daphne message] The UA WBC) system which ge nerated this result transmit daphne reference range : <=5. The reference range was not used to interpr et this result as fatuma l/abnormal. [facility] AND [id number] 19:58:00 Test Item Value Reference Range Interpretation Comments UA RBC (test code = 2 See_Comment [Automa daphne message] The UA RBC) system which ge nerated this result transmit daphne reference range : <=2. The reference range was not used to interpr et this result as fatuma l/abnormal. [facility] AND [id number] 19:58:00 Test Item Value Reference Range Interpretation Comments UA Bacteria (test code = UA Occasional /HPF Bacteria) [facility] H[id number] 08:44:00 Test Item Value Reference Range Interpretation Comments RBC X 10x6 (test code = RBC X 10x6) 3.73 4.20-5.40 [facility] HospitalUetewxeJOUZCAGBVB9167-56-57 08:44:00 Test Item Value Reference Range Interpretation Comments MCV (test code = MCV) 81.8 80.0-98.0 [facility] HospitalBkaocwwSKIZXMZSZT2815-63-32 08:44:00 Test Item Value Reference Range Interpretation Comments WBC X 10x3 (test code = WBC X 10x3) 8.7 3.7-10.4 [facility] HospitalIfabsudUNTDNAPPMR0217-67-83 08:44:00 Test Item Value Reference Range Interpretation Comments Hct (test code = Hct) 30.5 36.0-48.0 [facility] HospitalOthxjdbRAXTQALZJM7607-15-85 08:44:00 Test Item Value Reference Range Interpretation Comments MPV (test code = MPV) 9.0 7.4-10.4 [facility] HospitalUlhirrvBSHCOASNEL4752-30-52 08:44:00 Test Item Value Reference Range Interpretation Comments MCHC (test code = MCHC) 33.2 32.0-36.0 [facility] HospitalAbtzyiyROLLZWHGMR5614-74-75 08:44:00 Test Item Value Reference Range Interpretation Comments MCH (test code = MCH) 27.1 pg 27.0-31.0 [facility] HospitalFkqtkmzRIVLTBYWYH2403-97-14 08:44:00 Test Item Value Reference Range Interpretation Comments RDW (test code = RDW) 17.4 11.5-14.5 [facility] HospitalSxvneryPQTCNZJSZS9127-47-77 08:44:00 Test Item Value Reference Range Interpretation Comments Platelet (test code = Platelet) 360 133-450 [facility]XgoryibVZRYRDWDGJNM9715-73-89 08:44:00 Test Item Value Reference Range Interpretation Comments AGAP (test code = AGAP) 9.9 10.0-20.0 [facility] MichiganGrvsdktGGNCXSIGRXFF2700-75-26 08:44:00 Test Item Value Reference Range Interpretation Comments Sodium Lvl (test code = Sodium Lvl) 141 135-145 [facility] MichiganCwlnuoiIFMUIUUIFUHC9674-63-58 08:44:00 Test Item Value Reference Range Interpretation Comments Potassium Lvl (test code = Potassium 3.9 3.5-5.1 Lvl) [facility] MichiganIuwfvyhSEGVTDLZHLZI3134-34-32 08:44:00 Test Item Value Reference Range Interpretation Comments eGFR (test code = eGFR) 121 [facility] MichiganQirnefuZIFTTGCAEFNM9349-75-27 08:44:00 Test Item Value Reference Range Interpretation Comments Chloride Lvl (test code = Chloride Lvl) 105 95-109 [facility] MichiganDvyqgulJHHINYRBCIWH2713-81-22 08:44:00 Test Item Value Reference Range Interpretation Comments Calcium Lvl (test code = Calcium Lvl) 7.8 8.5-10.5 [facility] MichiganGrhiekpASJHYYIYOGVB9129-60-55 08:44:00 Test Item Value Reference Range Interpretation Comments CO2 (test code = CO2) 30 24-32 [facility] MichiganIbpaetaASSLSINXZFPT2825-91-80 08:44:00 Test Item Value Reference Range Interpretation Comments Glucose Lvl (test code = Glucose Lvl) 111 70-99 [facility] MichiganPnezcghOXBUGHZSIZAQ8014-48-82 08:44:00 Test Item Value Reference Range Interpretation Comments BUN (test code = BUN) 2 7-22 [facility] MichiganUulnlezGHLXBADMGPZH4711-74-81 08:44:00 Test Item Value Reference Range Interpretation Comments Creatinine Lvl (test code = Creatinine 0.67 0.50-1.40 Lvl) [facility] HospitalWckkthyKOTGTMPJKE5037-06-93 08:44:00 Test Item Value Reference Range Interpretation Comments Hgb (test code = Hgb) 10.1 12.0-16.0 [facility] HospitalTdasrzuORJUWERBGL0970-99-29 08:44:00 Test Item Value Reference Range Interpretation Comments RBC X 10x6 (test code = RBC X 10x6) 3.73 4.20-5.40 [facility] HospitalKzbsjczSFMXPHIMQD2189-64-10 08:44:00 Test Item Value Reference Range Interpretation Comments MCV (test code = MCV) 81.8 80.0-98.0 [facility] HospitalZlkcwwnRICLVTEOXZ0822-74-20 08:44:00 Test Item Value Reference Range Interpretation Comments WBC X 10x3 (test code = WBC X 10x3) 8.7 3.7-10.4 [facility] HospitalMfgrertHGJNLOWKFD3094-91-61 08:44:00 Test Item Value Reference Range Interpretation Comments Hct (test code = Hct) 30.5 36.0-48.0 [facility] HospitalKonfpfiGUQSAVMRLT9376-76-15 08:44:00 Test Item Value Reference Range Interpretation Comments MPV (test code = MPV) 9.0 7.4-10.4 [facility] HospitalUhgsmmuTWNPCHCJBR2695-20-04 08:44:00 Test Item Value Reference Range Interpretation Comments MCHC (test code = MCHC) 33.2 32.0-36.0 [facility] HospitalTwxkotsWZVRMMCCHO7169-33-91 08:44:00 Test Item Value Reference Range Interpretation Comments MCH (test code = MCH) 27.1 pg 27.0-31.0 [facility] HospitalCtizbdhGNHTDAQMSM0536-68-81 08:44:00 Test Item Value Reference Range Interpretation Comments RDW (test code = RDW) 17.4 11.5-14.5 [facility] HospitalMkglqieUXDDKYZPCE9297-73-22 08:44:00 Test Item Value Reference Range Interpretation Comments Platelet (test code = Platelet) 360 133-450 [facility]PwwqqawFOWAIATCFMWZ2432-53-43 08:44:00 Test Item Value Reference Range Interpretation Comments AGAP (test code = AGAP) 9.9 10.0-20.0 [facility] MichiganAsmakmsPKMYYVOLKTKH4919-61-05 08:44:00 Test Item Value Reference Range Interpretation Comments Sodium Lvl (test code = Sodium Lvl) 141 135-145 [facility] MichiganQcmbfeyUUGTCRQEBDCF8640-45-65 08:44:00 Test Item Value Reference Range Interpretation Comments Potassium Lvl (test code = Potassium 3.9 3.5-5.1 Lvl) [facility] MichiganRxqbmgvPDNHCUHRSMRQ2816-53-43 08:44:00 Test Item Value Reference Range Interpretation Comments eGFR (test code = eGFR) 121 [facility] MichiganKhsojweULZJJQMFKMAI8789-17-02 08:44:00 Test Item Value Reference Range Interpretation Comments Chloride Lvl (test code = Chloride Lvl) 105 95-109 [facility] MichiganYhcurxkRSVVBVUBEWTD1081-72-97 08:44:00 Test Item Value Reference Range Interpretation Comments Calcium Lvl (test code = Calcium Lvl) 7.8 8.5-10.5 [facility] MichiganEjvarxyAJXYSNIBJXNM3611-13-11 08:44:00 Test Item Value Reference Range Interpretation Comments CO2 (test code = CO2) 30 24-32 [facility] MichiganIiyiotdVRKZRETYHXHQ6009-04-95 08:44:00 Test Item Value Reference Range Interpretation Comments Glucose Lvl (test code = Glucose Lvl) 111 70-99 [facility] MichiganBroitnfLWDDNQUWDUUQ0447-68-37 08:44:00 Test Item Value Reference Range Interpretation Comments BUN (test code = BUN) 2 7-22 [facility] MichiganMziomjiWGONPHDTCTOA8792-27-69 08:44:00 Test Item Value Reference Range Interpretation Comments Creatinine Lvl (test code = Creatinine 0.67 0.50-1.40 Lvl) [facility] HospitalGyxbtcrRCZRVIXXHK9746-67-65 08:44:00 Test Item Value Reference Range Interpretation Comments Hgb (test code = Hgb) 10.1 12.0-16.0 [facility] HospitalDyoektnALZPCBQTCJ4444-85-12 08:44:00 Test Item Value Reference Range Interpretation Comments RBC X 10x6 (test code = RBC X 10x6) 3.73 4.20-5.40 [facility] HospitalHkqlmixUYYHMVPYLV1104-13-20 08:44:00 Test Item Value Reference Range Interpretation Comments MCV (test code = MCV) 81.8 80.0-98.0 [facility] HospitalFeiegijXMLHSYRGUN8607-02-54 08:44:00 Test Item Value Reference Range Interpretation Comments WBC X 10x3 (test code = WBC X 10x3) 8.7 3.7-10.4 [facility] HospitalOvqakdaFWNRLRQXSX5115-08-28 08:44:00 Test Item Value Reference Range Interpretation Comments Hct (test code = Hct) 30.5 36.0-48.0 [facility] HospitalEyxthytZTAWUYGTXA5420-60-47 08:44:00 Test Item Value Reference Range Interpretation Comments MPV (test code = MPV) 9.0 7.4-10.4 [facility] HospitalDeaqqfeTQYESWEQOE9908-19-17 08:44:00 Test Item Value Reference Range Interpretation Comments MCHC (test code = MCHC) 33.2 32.0-36.0 [facility] HospitalDbmyogsRATUTFKXPW4187-42-45 08:44:00 Test Item Value Reference Range Interpretation Comments MCH (test code = MCH) 27.1 pg 27.0-31.0 [facility] HospitalFyhtbsuJZPYRQPCQS0194-70-33 08:44:00 Test Item Value Reference Range Interpretation Comments RDW (test code = RDW) 17.4 11.5-14.5 [facility] HospitalLoraghmFAQYITAQEI1356-50-17 08:44:00 Test Item Value Reference Range Interpretation Comments Platelet (test code = Platelet) 360 133-450 [facility] MichiganYjkqynePFNQXKGUSALU2128-10-32 08:44:00 Test Item Value Reference Range Interpretation Comments AGAP (test code = AGAP) 9.9 10.0-20.0 [facility] MichiganLiawdndWXWDJHDNQEYI2871-92-36 08:44:00 Test Item Value Reference Range Interpretation Comments Sodium Lvl (test code = Sodium Lvl) 141 135-145 [facility] MichiganQfdfxsgGOXSLVGXWLQH7483-68-05 08:44:00 Test Item Value Reference Range Interpretation Comments Potassium Lvl (test code = Potassium 3.9 3.5-5.1 Lvl) [facility] MichiganSkixcudHOIHOPVXCLJF6670-62-68 08:44:00 Test Item Value Reference Range Interpretation Comments eGFR (test code = eGFR) 121 [facility] MichiganVheduqoERYKBWAXWKQU1152-82-82 08:44:00 Test Item Value Reference Range Interpretation Comments Chloride Lvl (test code = Chloride Lvl) 105 95-109 [facility] MichiganZgobiipKOWRATJJDBZI0675-63-28 08:44:00 Test Item Value Reference Range Interpretation Comments Calcium Lvl (test code = Calcium Lvl) 7.8 8.5-10.5 [facility] MichiganNokbrwhSCZDRQCBCCJM1632-87-51 08:44:00 Test Item Value Reference Range Interpretation Comments CO2 (test code = CO2) 30 24-32 [facility] MichiganCgbseunFSBVTFIEFSWL8520-10-40 08:44:00 Test Item Value Reference Range Interpretation Comments Glucose Lvl (test code = Glucose Lvl) 111 70-99 [facility] MichiganHdrvegfYCWALYZGUIID8254-52-85 08:44:00 Test Item Value Reference Range Interpretation Comments BUN (test code = BUN) 2 7-22 [facility] MichiganUwhvauvAGENWZABTHSI4533-24-74 08:44:00 Test Item Value Reference Range Interpretation Comments Creatinine Lvl (test code = Creatinine 0.67 0.50-1.40 Lvl) [facility] HospitalIuwmldkCOSBBUUOIE7438-90-12 08:44:00 Test Item Value Reference Range Interpretation Comments Hgb (test code = Hgb) 10.1 12.0-16.0 [facility] HospitalCrilhvmWNBVBEOKUF9654-58-05 08:44:00 Test Item Value Reference Range Interpretation Comments RBC X 10x6 (test code = RBC X 10x6) 3.73 4.20-5.40 [facility] HospitalNloghmySWGMRSMISX8763-21-31 08:44:00 Test Item Value Reference Range Interpretation Comments MCV (test code = MCV) 81.8 80.0-98.0 [facility] HospitalQsfvgkvKEJWUFSVWY3159-26-77 08:44:00 Test Item Value Reference Range Interpretation Comments WBC X 10x3 (test code = WBC X 10x3) 8.7 3.7-10.4 [facility] HospitalXcsmbagRCLCYLUHRR9542-87-85 08:44:00 Test Item Value Reference Range Interpretation Comments Hct (test code = Hct) 30.5 36.0-48.0 [facility] HospitalFntvmrxWCMQGUYXFM4540-77-80 08:44:00 Test Item Value Reference Range Interpretation Comments MPV (test code = MPV) 9.0 7.4-10.4 [facility] HospitalEtrfypiILFCJQWLFQ7260-89-18 08:44:00 Test Item Value Reference Range Interpretation Comments MCHC (test code = MCHC) 33.2 32.0-36.0 [facility] HospitalRivpnbrWFQOTFYAFW3334-85-22 08:44:00 Test Item Value Reference Range Interpretation Comments MCH (test code = MCH) 27.1 pg 27.0-31.0 [facility] HospitalMxmtjigJFLCQWDJYT9675-70-29 08:44:00 Test Item Value Reference Range Interpretation Comments RDW (test code = RDW) 17.4 11.5-14.5 [facility] HospitalEfovkbaJSDYMOFOOQ4427-44-36 08:44:00 Test Item Value Reference Range Interpretation Comments Platelet (test code = Platelet) 360 133-450 [facility]XwktiibSGSYDSZQNFZY9097-26-54 08:44:00 Test Item Value Reference Range Interpretation Comments AGAP (test code = AGAP) 9.9 10.0-20.0 [facility] MichiganOnjsvnbLJADAXJDXSZQ9679-80-95 08:44:00 Test Item Value Reference Range Interpretation Comments Sodium Lvl (test code = Sodium Lvl) 141 135-145 [facility] MichiganDcwzpgnUYLPLAPGKGIC9599-65-89 08:44:00 Test Item Value Reference Range Interpretation Comments Potassium Lvl (test code = Potassium 3.9 3.5-5.1 Lvl) [facility] MichiganYygmhppPYLEBYRUAGGR4537-86-26 08:44:00 Test Item Value Reference Range Interpretation Comments eGFR (test code = eGFR) 121 [facility] MichiganRklcwmeSIOJVELYYPDN1540-09-21 08:44:00 Test Item Value Reference Range Interpretation Comments Chloride Lvl (test code = Chloride Lvl) 105 95-109 [facility] MichiganTnyjgoxMYNFUURXHEQY9639-66-01 08:44:00 Test Item Value Reference Range Interpretation Comments Calcium Lvl (test code = Calcium Lvl) 7.8 8.5-10.5 [facility] MichiganScuvercUFBYJNUDAYUG1410-11-67 08:44:00 Test Item Value Reference Range Interpretation Comments CO2 (test code = CO2) 30 24-32 [facility] MichiganTptafvsMFAYARXWPMLX4497-15-03 08:44:00 Test Item Value Reference Range Interpretation Comments Glucose Lvl (test code = Glucose Lvl) 111 70-99 [facility] MichiganRzatmvpOOZZPRCREPNU1067-24-76 08:44:00 Test Item Value Reference Range Interpretation Comments BUN (test code = BUN) 2 7-22 [facility] MichiganQblahzbVPNTAKKMOKKK6242-72-43 08:44:00 Test Item Value Reference Range Interpretation Comments Creatinine Lvl (test code = Creatinine 0.67 0.50-1.40 Lvl) [facility] HospitalPzofyswCGRKXBQDIF1995-78-50 08:44:00 Test Item Value Reference Range Interpretation Comments Hgb (test code = Hgb) 10.1 12.0-16.0 [facility] HospitalHwxijquJZIYSVADVJ0049-12-10 08:44:00 Test Item Value Reference Range Interpretation Comments RBC X 10x6 (test code = RBC X 10x6) 3.73 4.20-5.40 [facility] HospitalBfddxddFNPNISOENG9691-73-72 08:44:00 Test Item Value Reference Range Interpretation Comments MCV (test code = MCV) 81.8 80.0-98.0 [facility] HospitalDnziglzCBGLQVSDNX7565-99-35 08:44:00 Test Item Value Reference Range Interpretation Comments WBC X 10x3 (test code = WBC X 10x3) 8.7 3.7-10.4 [facility] HospitalUpqjucrOYQSUIGKDA5121-57-34 08:44:00 Test Item Value Reference Range Interpretation Comments Hct (test code = Hct) 30.5 36.0-48.0 [facility] HospitalGqsmktbQNXXJTCXJS5992-66-61 08:44:00 Test Item Value Reference Range Interpretation Comments MPV (test code = MPV) 9.0 7.4-10.4 [facility] HospitalOqzifrjKZJLVICJYD0640-07-88 08:44:00 Test Item Value Reference Range Interpretation Comments MCHC (test code = MCHC) 33.2 32.0-36.0 [facility] HospitalQrztopiUTJIWSCSZR2734-52-52 08:44:00 Test Item Value Reference Range Interpretation Comments MCH (test code = MCH) 27.1 pg 27.0-31.0 [facility] HospitalAepikqiXEQAKKKGUQ4932-51-70 08:44:00 Test Item Value Reference Range Interpretation Comments RDW (test code = RDW) 17.4 11.5-14.5 [facility] HospitalTfraxvwBGGZECAYPY3953-03-29 08:44:00 Test Item Value Reference Range Interpretation Comments Platelet (test code = Platelet) 360 133-450 [facility] MichiganQfitqrbHVNQSNVCZURK3774-08-02 08:44:00 Test Item Value Reference Range Interpretation Comments AGAP (test code = AGAP) 9.9 10.0-20.0 [facility] MichiganCkzvwxiKYFBUUKQOBAA2399-09-68 08:44:00 Test Item Value Reference Range Interpretation Comments Sodium Lvl (test code = Sodium Lvl) 141 135-145 [facility] MichiganXomhnlbQQACSWCQYJIW9849-35-86 08:44:00 Test Item Value Reference Range Interpretation Comments Potassium Lvl (test code = Potassium 3.9 3.5-5.1 Lvl) [facility] MichiganRmfwxmcIPMVDUETXJHZ3342-30-17 08:44:00 Test Item Value Reference Range Interpretation Comments eGFR (test code = eGFR) 121 [facility] MichiganZgppxzxZULJEJPUTNUI0338-66-92 08:44:00 Test Item Value Reference Range Interpretation Comments Chloride Lvl (test code = Chloride Lvl) 105 95-109 [facility] MichiganDirfxwxBRIXLNPXRSTP9393-71-62 08:44:00 Test Item Value Reference Range Interpretation Comments Calcium Lvl (test code = Calcium Lvl) 7.8 8.5-10.5 [facility] MichiganNcpygilISJPRMCHZOYU3390-97-60 08:44:00 Test Item Value Reference Range Interpretation Comments CO2 (test code = CO2) 30 24-32 [facility] MichiganWtqrartHDMFAWMQUNBA1741-40-17 08:44:00 Test Item Value Reference Range Interpretation Comments Glucose Lvl (test code = Glucose Lvl) 111 70-99 [facility] MichiganZidorfaKUCQTILHLGKJ4500-99-57 08:44:00 Test Item Value Reference Range Interpretation Comments BUN (test code = BUN) 2 7-22 [facility] [place]NT[place]OV[place]XX5065-68-35 08:44:00 Test Item Value Reference Range Interpretation Comments Creatinine Lvl (test code = Creatinine 0.67 0.50-1.40 Lvl) [facility]GyfuqucARMNHQEPIJ9636-19-92 08:44:00 Test Item Value Reference Range Interpretation Comments Hgb (test code = Hgb) 10.1 12.0-16.0 [facility] HospitalCvsldcdWTYZYUJPHF6048-38-24 08:44:00 Test Item Value Reference Range Interpretation Comments RBC X 10x6 (test code = RBC X 10x6) 3.73 4.20-5.40 [facility] HospitalUzwzuwvKQOWWBXMFX8948-09-93 08:44:00 Test Item Value Reference Range Interpretation Comments MCV (test code = MCV) 81.8 80.0-98.0 [facility] HospitalTfkzsyzNDTOHWHFZD4640-16-04 08:44:00 Test Item Value Reference Range Interpretation Comments WBC X 10x3 (test code = WBC X 10x3) 8.7 3.7-10.4 [facility] HospitalGpqdkguBEFDTLFPPS8602-20-93 08:44:00 Test Item Value Reference Range Interpretation Comments Hct (test code = Hct) 30.5 36.0-48.0 [facility] HospitalTpmgiycTAJXLKQUCR8053-20-32 08:44:00 Test Item Value Reference Range Interpretation Comments MPV (test code = MPV) 9.0 7.4-10.4 [facility] HospitalUhtkfswRBMBBTURNK8096-51-76 08:44:00 Test Item Value Reference Range Interpretation Comments MCHC (test code = MCHC) 33.2 32.0-36.0 [facility] HospitalLfzcpolOUOXUHADLW1771-65-83 08:44:00 Test Item Value Reference Range Interpretation Comments MCH (test code = MCH) 27.1 pg 27.0-31.0 [facility] HospitalYnxkdpwYFZQMFDNFT6031-11-53 08:44:00 Test Item Value Reference Range Interpretation Comments RDW (test code = RDW) 17.4 11.5-14.5 [facility] HospitalCpojtgoQWVHBCBQKZ8983-26-02 08:44:00 Test Item Value Reference Range Interpretation Comments Platelet (test code = Platelet) 360 133-450 [facility] [place]IdtbucjGYXOFPEEBJHJ8409-13-64 08:44:00 Test Item Value Reference Range Interpretation Comments AGAP (test code = AGAP) 9.9 10.0-20.0 [facility] [place]CijcbeeBLUPTBNPEGDU9758-98-95 08:44:00 Test Item Value Reference Range Interpretation Comments Sodium Lvl (test code = Sodium Lvl) 141 135-145 [facility] MichiganRmpasmaXAHJTQQCCKQE5630-81-05 08:44:00 Test Item Value Reference Range Interpretation Comments Potassium Lvl (test code = Potassium 3.9 3.5-5.1 Lvl) [facility] [place]BoxdzagTSPPXJSMUMDH2582-88-72 08:44:00 Test Item Value Reference Range Interpretation Comments eGFR (test code = eGFR) 121 [facility] MichiganGjtfuepUNBAINSPQBRJ3407-01-95 08:44:00 Test Item Value Reference Range Interpretation Comments Chloride Lvl (test code = Chloride Lvl) 105 95-109 [facility] MichiganQuwgfkjMCMJMYGKZXHJ7256-98-05 08:44:00 Test Item Value Reference Range Interpretation Comments Calcium Lvl (test code = Calcium Lvl) 7.8 8.5-10.5 [facility] [place]OvzrecfNAFETXEBBIJA2473-57-89 08:44:00 Test Item Value Reference Range Interpretation Comments CO2 (test code = CO2) 30 24-32 [facility] MichiganBlxhureOEWAVNETNBCN9347-94-59 08:44:00 Test Item Value Reference Range Interpretation Comments Glucose Lvl (test code = Glucose Lvl) 111 70-99 [facility] MichiganQjxcgklUQUYXDJSMGOW8564-26-25 08:44:00 Test Item Value Reference Range Interpretation Comments BUN (test code = BUN) 2 7-22 [facility] MichiganFhpwecfTQKUHNFOVGEU0064-67-39 08:44:00 Test Item Value Reference Range Interpretation Comments Creatinine Lvl (test code = Creatinine 0.67 0.50-1.40 Lvl) [facility] HospitalFbeyqkhFRRFTYNMIS9796-88-62 08:44:00 Test Item Value Reference Range Interpretation Comments Hgb (test code = Hgb) 10.1 12.0-16.0 [facility] HospitalEltavvwBOVEXZZZHW4688-56-29 08:44:00 Test Item Value Reference Range Interpretation Comments RBC X 10x6 (test code = RBC X 10x6) 3.73 4.20-5.40 [facility] HospitalKxdbhziKHUCQWUXCX7957-09-21 08:44:00 Test Item Value Reference Range Interpretation Comments MCV (test code = MCV) 81.8 80.0-98.0 [facility] HospitalSftnqifVTQFAUNXLH0502-67-17 08:44:00 Test Item Value Reference Range Interpretation Comments WBC X 10x3 (test code = WBC X 10x3) 8.7 3.7-10.4 [facility] HospitalMbilzxzEMYPFQZTCD6846-67-04 08:44:00 Test Item Value Reference Range Interpretation Comments Hct (test code = Hct) 30.5 36.0-48.0 [facility] HospitalXpvvbenVEXDKFTEZN1317-42-79 08:44:00 Test Item Value Reference Range Interpretation Comments MPV (test code = MPV) 9.0 7.4-10.4 [facility] HospitalDizjvicLKMBUDSVYU9756-35-77 08:44:00 Test Item Value Reference Range Interpretation Comments MCHC (test code = MCHC) 33.2 32.0-36.0 [facility] HospitalXnijpaeUZJOFPHCYL9718-84-88 08:44:00 Test Item Value Reference Range Interpretation Comments MCH (test code = MCH) 27.1 pg 27.0-31.0 [facility] HospitalLtbblskWBHGUUCVJS2034-70-41 08:44:00 Test Item Value Reference Range Interpretation Comments RDW (test code = RDW) 17.4 11.5-14.5 [facility] HospitalJxurwtuSRXYGYVDHN8722-63-98 08:44:00 Test Item Value Reference Range Interpretation Comments Platelet (test code = Platelet) 360 133-450 [facility] [place]UiyeppzIXJBIPEXSVER5138-31-29 08:44:00 Test Item Value Reference Range Interpretation Comments AGAP (test code = AGAP) 9.9 10.0-20.0 [facility] MichiganOwrbzukVIZLYQJZSHXF7165-56-93 08:44:00 Test Item Value Reference Range Interpretation Comments Sodium Lvl (test code = Sodium Lvl) 141 135-145 [facility] MichiganGiudrpzJWVTNJEUAMET3067-52-63 08:44:00 Test Item Value Reference Range Interpretation Comments Potassium Lvl (test code = Potassium 3.9 3.5-5.1 Lvl) [facility] MichiganTodzjyxTSFPYJBFCERS8092-24-42 08:44:00 Test Item Value Reference Range Interpretation Comments eGFR (test code = eGFR) 121 [facility] MichiganAyhbeluQKAZFACXYMEL5606-57-22 08:44:00 Test Item Value Reference Range Interpretation Comments Chloride Lvl (test code = Chloride Lvl) 105 95-109 [facility] MichiganZzfxzguVDSMTRCXDLLJ4978-14-05 08:44:00 Test Item Value Reference Range Interpretation Comments Calcium Lvl (test code = Calcium Lvl) 7.8 8.5-10.5 [facility] MichiganCrmzbjxFNDRPMNTRQEC7817-13-00 08:44:00 Test Item Value Reference Range Interpretation Comments CO2 (test code = CO2) 30 24-32 [facility] [place]SdmudjzISSWCUNXZVYE8754-63-75 08:44:00 Test Item Value Reference Range Interpretation Comments Glucose Lvl (test code = Glucose Lvl) 111 70-99 [facility] MichiganDaoilyzYUJOIDCYFEJH6225-66-25 08:44:00 Test Item Value Reference Range Interpretation Comments BUN (test code = BUN) 2 7-22 [facility] MichiganAxxklunYXVXDODYYJTK7972-04-58 08:44:00 Test Item Value Reference Range Interpretation Comments Creatinine Lvl (test code = Creatinine 0.67 0.50-1.40 Lvl) [facility] HospitalNkahpjrRXJFTBJHMK7137-78-38 08:44:00 Test Item Value Reference Range Interpretation Comments Hgb (test code = Hgb) 10.1 12.0-16.0 [facility] HospitalLyygqnxBOACUHPOZO9136-07-68 08:44:00 Test Item Value Reference Range Interpretation Comments RBC X 10x6 (test code = RBC X 10x6) 3.73 4.20-5.40 [facility] HospitalVvzunooURIHSXQVHX7417-94-20 08:44:00 Test Item Value Reference Range Interpretation Comments MCV (test code = MCV) 81.8 80.0-98.0 [facility] HospitalNccgznrQDGBMAQZBC6669-38-68 08:44:00 Test Item Value Reference Range Interpretation Comments WBC X 10x3 (test code = WBC X 10x3) 8.7 3.7-10.4 [facility] HospitalIkicwzxUMEQYUBNGW5857-12-51 08:44:00 Test Item Value Reference Range Interpretation Comments Hct (test code = Hct) 30.5 36.0-48.0 [facility] HospitalAkmyytpLPOYDPRZRC4723-24-10 08:44:00 Test Item Value Reference Range Interpretation Comments MPV (test code = MPV) 9.0 7.4-10.4 [facility] HospitalMnvikexNTVFVRKXER7049-51-52 08:44:00 Test Item Value Reference Range Interpretation Comments MCHC (test code = MCHC) 33.2 32.0-36.0 [facility] HospitalHmkpbkfPTLDWVNQYQ2968-03-36 08:44:00 Test Item Value Reference Range Interpretation Comments MCH (test code = MCH) 27.1 pg 27.0-31.0 [facility] HospitalAchucvpXWDXNGZEAU6286-21-51 08:44:00 Test Item Value Reference Range Interpretation Comments RDW (test code = RDW) 17.4 11.5-14.5 [facility] HospitalYpkqncsLVTJWDZZIL9255-59-29 08:44:00 Test Item Value Reference Range Interpretation Comments Platelet (test code = Platelet) 360 133-450 [facility] MichiganTkbuemmEKKHOPKCAPBB4446-48-46 08:44:00 Test Item Value Reference Range Interpretation Comments AGAP (test code = AGAP) 9.9 10.0-20.0 [facility] [place]OxucpcdUBLJTISTNTVF7461-99-38 08:44:00 Test Item Value Reference Range Interpretation Comments Sodium Lvl (test code = Sodium Lvl) 141 135-145 [facility] MichiganStpqwzxDBIYNVKWYTGU1931-20-64 08:44:00 Test Item Value Reference Range Interpretation Comments Potassium Lvl (test code = Potassium 3.9 3.5-5.1 Lvl) [facility] MichiganLjuycihLGZVSHODKPXT6028-16-24 08:44:00 Test Item Value Reference Range Interpretation Comments eGFR (test code = eGFR) 121 [facility] MichiganPhhevxvELBNBPDSOPNC7464-86-34 08:44:00 Test Item Value Reference Range Interpretation Comments Chloride Lvl (test code = Chloride Lvl) 105 95-109 [facility] [place]XmaadgmVZYXHAMMIWAD3414-67-09 08:44:00 Test Item Value Reference Range Interpretation Comments Calcium Lvl (test code = Calcium Lvl) 7.8 8.5-10.5 [facility] [place]YcrycdnUCKOVLMZYFGU1087-23-38 08:44:00 Test Item Value Reference Range Interpretation Comments CO2 (test code = CO2) 30 24-32 [facility] MichiganBhsogztOQXNUDSTRASM8294-24-47 08:44:00 Test Item Value Reference Range Interpretation Comments Glucose Lvl (test code = Glucose Lvl) 111 70-99 [facility] [place]YxevkzlZJMVALJQPGZA0332-16-79 08:44:00 Test Item Value Reference Range Interpretation Comments BUN (test code = BUN) 2 7-22 [facility] MichiganEmqqmtoEOJNWDOFEQWT5327-70-20 08:44:00 Test Item Value Reference Range Interpretation Comments Creatinine Lvl (test code = Creatinine 0.67 0.50-1.40 Lvl) [facility] HospitalObxfczfSCKQBYUUTG2535-35-63 08:44:00 Test Item Value Reference Range Interpretation Comments Hgb (test code = Hgb) 10.1 12.0-16.0 [facility] HospitalGqiennxKPMOBLLLKZ9074-01-22 08:44:00 Test Item Value Reference Range Interpretation Comments RBC X 10x6 (test code = RBC X 10x6) 3.73 4.20-5.40 [facility] HospitalLqflijgYUHESHSMOT6108-67-19 08:44:00 Test Item Value Reference Range Interpretation Comments MCV (test code = MCV) 81.8 80.0-98.0 [facility] HospitalPcqcoosCBXEVNADCZ5951-75-68 08:44:00 Test Item Value Reference Range Interpretation Comments WBC X 10x3 (test code = WBC X 10x3) 8.7 3.7-10.4 [facility] HospitalOznhxhwSYFNTEDCPE1073-16-16 08:44:00 Test Item Value Reference Range Interpretation Comments Hct (test code = Hct) 30.5 36.0-48.0 [facility] HospitalNcwadocCYAKKIQGRO0732-96-15 08:44:00 Test Item Value Reference Range Interpretation Comments MPV (test code = MPV) 9.0 7.4-10.4 [facility] HospitalVbkotigKELEWPAECV2114-93-72 08:44:00 Test Item Value Reference Range Interpretation Comments MCHC (test code = MCHC) 33.2 32.0-36.0 [facility] HospitalHjtpjpfXFPRLGRAMR2980-81-36 08:44:00 Test Item Value Reference Range Interpretation Comments MCH (test code = MCH) 27.1 pg 27.0-31.0 [facility] HospitalQxjmqlxEJTJBHQPQT0966-76-17 08:44:00 Test Item Value Reference Range Interpretation Comments RDW (test code = RDW) 17.4 11.5-14.5 [facility] HospitalMaphnivXYVALILGHN9745-73-81 08:44:00 Test Item Value Reference Range Interpretation Comments Platelet (test code = Platelet) 360 133-450 [facility] [place]NwizxreJJXYAHDJBJNR3602-38-68 08:44:00 Test Item Value Reference Range Interpretation Comments AGAP (test code = AGAP) 9.9 10.0-20.0 [facility] [place]JrnibeoYXPHFTHZFQXX7263-25-88 08:44:00 Test Item Value Reference Range Interpretation Comments Sodium Lvl (test code = Sodium Lvl) 141 135-145 [facility] [place]EjbonrpNOBVKEPLDMYE9921-61-70 08:44:00 Test Item Value Reference Range Interpretation Comments Potassium Lvl (test code = Potassium 3.9 3.5-5.1 Lvl) [facility] MichiganFecspyaTRZDHXEVWLUX4399-20-26 08:44:00 Test Item Value Reference Range Interpretation Comments eGFR (test code = eGFR) 121 [facility] MichiganDmrpkjoAHPRIFJJTVNP7497-64-88 08:44:00 Test Item Value Reference Range Interpretation Comments Chloride Lvl (test code = Chloride Lvl) 105 95-109 [facility] MichiganNhgaaczZLELUBHELHYE2710-36-57 08:44:00 Test Item Value Reference Range Interpretation Comments Calcium Lvl (test code = Calcium Lvl) 7.8 8.5-10.5 [facility] [place]AowjnjcQGPDSSUAENDW0552-72-42 08:44:00 Test Item Value Reference Range Interpretation Comments CO2 (test code = CO2) 30 24-32 [facility] [place]IdgrfbkEIUUNNTEHUOD6910-43-36 08:44:00 Test Item Value Reference Range Interpretation Comments Glucose Lvl (test code = Glucose Lvl) 111 70-99 [facility] MichiganPlmwsjjLRMYSHQNZRBG5841-99-99 08:44:00 Test Item Value Reference Range Interpretation Comments BUN (test code = BUN) 2 7-22 [facility] MichiganYjiopikAHLBQDSXCKXJ3621-21-22 08:44:00 Test Item Value Reference Range Interpretation Comments Creatinine Lvl (test code = Creatinine 0.67 0.50-1.40 Lvl) [facility] HospitalOweczegYMQEJENEJH4983-18-59 08:44:00 Test Item Value Reference Range Interpretation Comments Hgb (test code = Hgb) 10.1 12.0-16.0 [facility] HospitalRmayqjnODCRUKNDAN1232-99-00 08:44:00 Test Item Value Reference Range Interpretation Comments RBC X 10x6 (test code = RBC X 10x6) 3.73 4.20-5.40 [facility] HospitalOovxwxsQJGVYWCCGT4220-11-83 08:44:00 Test Item Value Reference Range Interpretation Comments MCV (test code = MCV) 81.8 80.0-98.0 [facility] HospitalZpkumglRSTMUAORAI6176-69-76 08:44:00 Test Item Value Reference Range Interpretation Comments WBC X 10x3 (test code = WBC X 10x3) 8.7 3.7-10.4 [facility] HospitalHcuxyjcWKYVSXAHMK5310-44-88 08:44:00 Test Item Value Reference Range Interpretation Comments Hct (test code = Hct) 30.5 36.0-48.0 [facility] HospitalLarfybdVPSXVTHNEW5835-45-22 08:44:00 Test Item Value Reference Range Interpretation Comments MPV (test code = MPV) 9.0 7.4-10.4 [facility] HospitalRspvplmTCCHYRTUCP6839-50-14 08:44:00 Test Item Value Reference Range Interpretation Comments MCHC (test code = MCHC) 33.2 32.0-36.0 [facility] HospitalUseygriUNKNWXWOYQ6978-00-95 08:44:00 Test Item Value Reference Range Interpretation Comments MCH (test code = MCH) 27.1 pg 27.0-31.0 [facility] HospitalOzatbzuEVDZVHCHDC0868-29-77 08:44:00 Test Item Value Reference Range Interpretation Comments RDW (test code = RDW) 17.4 11.5-14.5 [facility] HospitalZacsxgvTGATOTGDCK5679-79-13 08:44:00 Test Item Value Reference Range Interpretation Comments Platelet (test code = Platelet) 360 133-450 [facility] [place]VgqrvtvGJOYOMTLJCID8864-51-80 08:44:00 Test Item Value Reference Range Interpretation Comments AGAP (test code = AGAP) 9.9 10.0-20.0 [facility] [place]XeehkgxGRCFSPOCKGWP9614-95-77 08:44:00 Test Item Value Reference Range Interpretation Comments Sodium Lvl (test code = Sodium Lvl) 141 135-145 [facility] MichiganUnqaywuRHWRYQXBTNUP7214-99-33 08:44:00 Test Item Value Reference Range Interpretation Comments Potassium Lvl (test code = Potassium 3.9 3.5-5.1 Lvl) [facility] MichiganDxopuhvTHBTVSJJUFVO0764-91-19 08:44:00 Test Item Value Reference Range Interpretation Comments eGFR (test code = eGFR) 121 [facility] [place]MyhygiuEJVZJQGASQRD5223-12-15 08:44:00 Test Item Value Reference Range Interpretation Comments Chloride Lvl (test code = Chloride Lvl) 105 95-109 [facility] MichiganDmqqgvgBCJQDNASMFDM6522-05-72 08:44:00 Test Item Value Reference Range Interpretation Comments Calcium Lvl (test code = Calcium Lvl) 7.8 8.5-10.5 [facility] MichiganMukipbdCPGZNZQZDDPG7218-22-96 08:44:00 Test Item Value Reference Range Interpretation Comments CO2 (test code = CO2) 30 24-32 [facility] [place]XpxcftnNFGNYTAXWLWT8934-48-17 08:44:00 Test Item Value Reference Range Interpretation Comments Glucose Lvl (test code = Glucose Lvl) 111 70-99 [facility] [place]XsblvssZCEZUSXMCUVF5633-20-54 08:44:00 Test Item Value Reference Range Interpretation Comments BUN (test code = BUN) 2 7-22 [facility] [place]JlfrbfcYTAGCFYAAMQN9977-66-96 08:44:00 Test Item Value Reference Range Interpretation Comments Creatinine Lvl (test code = Creatinine 0.67 0.50-1.40 Lvl) [facility] HospitalFlbnkscFLGREIOIHK9457-92-43 08:44:00 Test Item Value Reference Range Interpretation Comments Hgb (test code = Hgb) 10.1 12.0-16.0 [facility] HospitalFrrztflVHHPVMTXQT9706-25-58 08:44:00 Test Item Value Reference Range Interpretation Comments RBC X 10x6 (test code = RBC X 10x6) 3.73 4.20-5.40 [facility] HospitalDzyltyoWOSGLZVJXT4555-33-85 08:44:00 Test Item Value Reference Range Interpretation Comments MCV (test code = MCV) 81.8 80.0-98.0 [facility] HospitalGmdauwwLWWHLPGCFA2509-11-80 08:44:00 Test Item Value Reference Range Interpretation Comments WBC X 10x3 (test code = WBC X 10x3) 8.7 3.7-10.4 [facility] HospitalIazlaieYTDAZCEYAL2017-10-06 08:44:00 Test Item Value Reference Range Interpretation Comments Hct (test code = Hct) 30.5 36.0-48.0 [facility] HospitalMuvkzzaVIJILLAKOX0189-03-37 08:44:00 Test Item Value Reference Range Interpretation Comments MPV (test code = MPV) 9.0 7.4-10.4 [facility] HospitalIzyguqmNQNRXLTHCZ9057-59-31 08:44:00 Test Item Value Reference Range Interpretation Comments MCHC (test code = MCHC) 33.2 32.0-36.0 [facility] HospitalMejujdpTEBMPKTSXV3667-36-60 08:44:00 Test Item Value Reference Range Interpretation Comments MCH (test code = MCH) 27.1 pg 27.0-31.0 [facility] HospitalEyliftqBBALQSCCVS9704-10-31 08:44:00 Test Item Value Reference Range Interpretation Comments RDW (test code = RDW) 17.4 11.5-14.5 [facility] HospitalVzkhirxTLPSZEFPWX8280-77-15 08:44:00 Test Item Value Reference Range Interpretation Comments Platelet (test code = Platelet) 360 133-450 [facility] MichiganYansvhiXXNYUSUWZEIQ0954-51-98 08:44:00 Test Item Value Reference Range Interpretation Comments AGAP (test code = AGAP) 9.9 10.0-20.0 [facility] [place]LmjkwwvSPZPDQCNEAKC5102-72-38 08:44:00 Test Item Value Reference Range Interpretation Comments Sodium Lvl (test code = Sodium Lvl) 141 135-145 [facility] [place]YybddefQWRNNDQZZROF4130-06-69 08:44:00 Test Item Value Reference Range Interpretation Comments Potassium Lvl (test code = Potassium 3.9 3.5-5.1 Lvl) [facility] MichiganCymnvjsOHMAPZOJUIUR5817-80-29 08:44:00 Test Item Value Reference Range Interpretation Comments eGFR (test code = eGFR) 121 [facility]VjqvikhOWHWHSWXNZFA0154-39-84 08:44:00 Test Item Value Reference Range Interpretation Comments Chloride Lvl (test code = Chloride Lvl) 105 95-109 [facility] [place]XtrjkthUVSAAXUVUEDU4631-87-70 08:44:00 Test Item Value Reference Range Interpretation Comments AGAP (test code = AGAP) 9.9 10.0-20.0 [facility] MichiganGnhdaliGRIFWNHJBFKU1757-90-48 08:44:00 Test Item Value Reference Range Interpretation Comments Calcium Lvl (test code = Calcium Lvl) 7.8 8.5-10.5 [facility] MichiganMasqyyqDZCXKTSSLSKJ7358-48-14 08:44:00 Test Item Value Reference Range Interpretation Comments Sodium Lvl (test code = Sodium Lvl) 141 135-145 [facility] MichiganAbuthzzKDXSBDJLVOJZ0528-84-10 08:44:00 Test Item Value Reference Range Interpretation Comments CO2 (test code = CO2) 30 24-32 [facility] MichiganZnheqhwMUNZKAWPSYRU5155-63-14 08:44:00 Test Item Value Reference Range Interpretation Comments Potassium Lvl (test code = Potassium 3.9 3.5-5.1 Lvl) [facility]KfpfmweGKNRGKXVMIFP6185-70-94 08:44:00 Test Item Value Reference Range Interpretation Comments Glucose Lvl (test code = Glucose Lvl) 111 70-99 [facility]UyhnfqmBAJUMYDIZAYX2728-62-80 08:44:00 Test Item Value Reference Range Interpretation Comments eGFR (test code = eGFR) 121 [facility]LgjapgtKWZUPFIJFHRI1642-45-04 08:44:00 Test Item Value Reference Range Interpretation Comments BUN (test code = BUN) 2 7-22 [facility] MichiganSihbrzuZKMTRNDTAPMY3779-21-62 08:44:00 Test Item Value Reference Range Interpretation Comments Chloride Lvl (test code = Chloride Lvl) 105 95-109 [facility] MichiganNokgnnhXSGPQDPDECIN3087-63-95 08:44:00 Test Item Value Reference Range Interpretation Comments Creatinine Lvl (test code = Creatinine 0.67 0.50-1.40 Lvl) [facility] MichiganLutbwmkMQQEMPCFZROT2318-20-61 08:44:00 Test Item Value Reference Range Interpretation Comments Calcium Lvl (test code = Calcium Lvl) 7.8 8.5-10.5 [facility] HospitalVmbuudaDHVPZGOMQF9744-70-29 08:44:00 Test Item Value Reference Range Interpretation Comments Hgb (test code = Hgb) 10.1 12.0-16.0 [facility]IiczhraIHAGTGCANDCZ8445-00-12 08:44:00 Test Item Value Reference Range Interpretation Comments CO2 (test code = CO2) 30 24-32 [facility] HospitalEwixjnoLCZLBZIPSL0685-53-13 08:44:00 Test Item Value Reference Range Interpretation Comments RBC X 10x6 (test code = RBC X 10x6) 3.73 4.20-5.40 [facility]IyfekfgPTKPRHWLUZTQ8462-33-30 08:44:00 Test Item Value Reference Range Interpretation Comments Glucose Lvl (test code = Glucose Lvl) 111 70-99 [facility] HospitalYcjztrmNRJDQHHXEG1773-85-80 08:44:00 Test Item Value Reference Range Interpretation Comments MCV (test code = MCV) 81.8 80.0-98.0 [facility] MichiganQosjuvfTKUSGAZTRCRN5929-18-59 08:44:00 Test Item Value Reference Range Interpretation Comments BUN (test code = BUN) 2 7-22 [facility] HospitalCeciqumSPWWTBORJS8770-06-34 08:44:00 Test Item Value Reference Range Interpretation Comments WBC X 10x3 (test code = WBC X 10x3) 8.7 3.7-10.4 [facility] MichiganWzemhmaDPKOPVEDWZZE9312-31-86 08:44:00 Test Item Value Reference Range Interpretation Comments Creatinine Lvl (test code = Creatinine 0.67 0.50-1.40 Lvl) [facility] HospitalGowspozIHSMNBXPVW0873-62-05 08:44:00 Test Item Value Reference Range Interpretation Comments Hct (test code = Hct) 30.5 36.0-48.0 [facility] HospitalFrbrfszMCHUXBIGNQ3160-01-97 08:44:00 Test Item Value Reference Range Interpretation Comments Hgb (test code = Hgb) 10.1 12.0-16.0 [facility] HospitalAaeqcsiRHADQQCHYV1017-92-00 08:44:00 Test Item Value Reference Range Interpretation Comments MPV (test code = MPV) 9.0 7.4-10.4 [facility] HospitalStgaxtbBASWUXIVVE2883-02-10 08:44:00 Test Item Value Reference Range Interpretation Comments RBC X 10x6 (test code = RBC X 10x6) 3.73 4.20-5.40 [place] 923136-10-30 08:44:00 Test Item Value Reference Range Interpretation Comments MCHC (test code = MCHC) 33.2 32.0-36.0 [facility]DbmvlteUQOOHZTDAJ8484-50-98 08:44:00 Test Item Value Reference Range Interpretation Comments MCV (test code = MCV) 81.8 80.0-98.0 [facility] SystemNhqmepkTGHZXLTDWG8031-71-25 08:44:00 Test Item Value Reference Range Interpretation Comments MCH (test code = MCH) 27.1 pg 27.0-31.0 [facility] SystemYsypwgkZOZVQJIMCL9014-51-59 08:44:00 Test Item Value Reference Range Interpretation Comments WBC X 10x3 (test code = WBC X 10x3) 8.7 3.7-10.4 [facility] HospitalXmfyapsVDRPCVRTXK6609-27-55 08:44:00 Test Item Value Reference Range Interpretation Comments RDW (test code = RDW) 17.4 11.5-14.5 [facility] HospitalBsisqvpOXSZSLXMQL5432-19-14 08:44:00 Test Item Value Reference Range Interpretation Comments Hct (test code = Hct) 30.5 36.0-48.0 [facility] SystemJjoacecHHYSLXFUOF0758-25-73 08:44:00 Test Item Value Reference Range Interpretation Comments Platelet (test code = Platelet) 360 274-603 [facility] SystemKpfkgamKMPDHLNFNU5987-93-65 08:44:00 Test Item Value Reference Range Interpretation Comments MPV (test code = MPV) 9.0 7.4-10.4 [facility] SystemKnajpypAAGVFPRTMC9320-44-41 08:44:00 Test Item Value Reference Range Interpretation Comments MCHC (test code = MCHC) 33.2 32.0-36.0 [facility]VunbntlWGJQARJNIX9775-41-31 08:44:00 Test Item Value Reference Range Interpretation Comments MCH (test code = MCH) 27.1 pg 27.0-31.0 [facility] SystemGnkdhelHCQQSMHJVY0073-39-46 08:44:00 Test Item Value Reference Range Interpretation Comments RDW (test code = RDW) 17.4 11.5-14.5 [facility] SystemPqpbzghNFINXZHOUU8417-90-85 08:44:00 Test Item Value Reference Range Interpretation Comments Platelet (test code = Platelet) 360 840-450 [facility]QvuawqgRHLAJZPWZYLB0757-20-96 08:44:00 Test Item Value Reference Range Interpretation Comments AGAP (test code = AGAP) 9.9 10.0-20.0 [facility]BqytqziKBBEUGPEHECG1347-80-19 08:44:00 Test Item Value Reference Range Interpretation Comments Sodium Lvl (test code = Sodium Lvl) 141 135-145 [facility]PdpolhcVJAWJNMLHFFR2416-05-68 08:44:00 Test Item Value Reference Range Interpretation Comments Potassium Lvl (test code = Potassium 3.9 3.5-5.1 Lvl) [facility]KxbeoqzWIOHOGAPHVXY3012-95-96 08:44:00 Test Item Value Reference Range Interpretation Comments eGFR (test code = eGFR) 121 [facility]BiqtnjsEDFOHLVDFLDB8477-02-77 08:44:00 Test Item Value Reference Range Interpretation Comments Chloride Lvl (test code = Chloride Lvl) 105 95-109 [facility] MichiganAibxakeCUQINZOKEGUY3162-17-65 08:44:00 Test Item Value Reference Range Interpretation Comments Calcium Lvl (test code = Calcium Lvl) 7.8 8.5-10.5 [facility]SgwcwidPJZXPJLUIOWV0183-98-02 08:44:00 Test Item Value Reference Range Interpretation Comments CO2 (test code = CO2) 30 24-32 [facility]GmirxmsGTMUQPNSEGMV1684-41-68 08:44:00 Test Item Value Reference Range Interpretation Comments Glucose Lvl (test code = Glucose Lvl) 111 70-99 [facility]ZmimnjeOYLCVVTKBVRC8431-76-28 08:44:00 Test Item Value Reference Range Interpretation Comments BUN (test code = BUN) 2 7-22 [facility]AqowcggXDZTVRMXJZWD9626-00-09 08:44:00 Test Item Value Reference Range Interpretation Comments Creatinine Lvl (test code = Creatinine 0.67 0.50-1.40 Lvl) [facility] HospitalMdeglihYWHKWVHLRN5420-98-71 08:44:00 Test Item Value Reference Range Interpretation Comments Hgb (test code = Hgb) 10.1 12.0-16.0 [facility] HospitalUkdpkuvGQDUDGNXAW6858-94-97 08:44:00 Test Item Value Reference Range Interpretation Comments RBC X 10x6 (test code = RBC X 10x6) 3.73 4.20-5.40 [facility] HospitalScpmimdPLRYRMIQHM1569-60-65 08:44:00 Test Item Value Reference Range Interpretation Comments MCV (test code = MCV) 81.8 80.0-98.0 [facility] HospitalYgjjvmbKXAVGGJFOK5340-82-13 08:44:00 Test Item Value Reference Range Interpretation Comments WBC X 10x3 (test code = WBC X 10x3) 8.7 3.7-10.4 [facility] HospitalTuaxlipNZDJXDENAY2436-45-81 08:44:00 Test Item Value Reference Range Interpretation Comments Hct (test code = Hct) 30.5 36.0-48.0 [facility] HospitalSwcbtkrQNFGSVVPYC9088-64-09 08:44:00 Test Item Value Reference Range Interpretation Comments MPV (test code = MPV) 9.0 7.4-10.4 [facility] HospitalMtnmcdoZIWVFCSKZV1599-86-30 08:44:00 Test Item Value Reference Range Interpretation Comments MCHC (test code = MCHC) 33.2 32.0-36.0 [facility] HospitalPkwqizbEEHSFAAMBD6815-64-19 08:44:00 Test Item Value Reference Range Interpretation Comments MCH (test code = MCH) 27.1 pg 27.0-31.0 [facility] HospitalPkhauzbHFZUVIOZAL6217-86-76 08:44:00 Test Item Value Reference Range Interpretation Comments RDW (test code = RDW) 17.4 11.5-14.5 [facility] HospitalKvbhwmuDHHVCPLIQX7255-76-10 08:44:00 Test Item Value Reference Range Interpretation Comments Platelet (test code = Platelet) 360 133-450 [facility]CapcgrfWQQTPUWAQAIF4083-33-16 08:44:00 Test Item Value Reference Range Interpretation Comments AGAP (test code = AGAP) 9.9 10.0-20.0 [facility] MichiganJbqgoftXREBXBETWQCH8259-52-88 08:44:00 Test Item Value Reference Range Interpretation Comments Sodium Lvl (test code = Sodium Lvl) 141 135-145 [facility]FpyugrwVLSUSXQSZKSP3340-05-07 08:44:00 Test Item Value Reference Range Interpretation Comments Potassium Lvl (test code = Potassium 3.9 3.5-5.1 Lvl) [facility]VbefydoWGXNECCKSAUW4088-01-51 08:44:00 Test Item Value Reference Range Interpretation Comments eGFR (test code = eGFR) 121 [facility] MichiganTbxmeysBJIEJIWEFWPF1764-73-02 08:44:00 Test Item Value Reference Range Interpretation Comments Chloride Lvl (test code = Chloride Lvl) 105 95-109 [facility] MichiganLaafoniGYDNDLUNYCZT3557-50-40 08:44:00 Test Item Value Reference Range Interpretation Comments Calcium Lvl (test code = Calcium Lvl) 7.8 8.5-10.5 [facility] MichiganUhsbtdwGDVJDHHYBRUX6758-78-35 08:44:00 Test Item Value Reference Range Interpretation Comments CO2 (test code = CO2) 30 24-32 [facility] MichiganZxdvuliIKLXXMRCIDYR4452-96-74 08:44:00 Test Item Value Reference Range Interpretation Comments Glucose Lvl (test code = Glucose Lvl) 111 70-99 [facility] MichiganWdqqrilLBCUHNHLNJXH0803-74-96 08:44:00 Test Item Value Reference Range Interpretation Comments BUN (test code = BUN) 2 7-22 [facility] MichiganDzzxojxLVRXTGQJBHOB1693-88-03 08:44:00 Test Item Value Reference Range Interpretation Comments Creatinine Lvl (test code = Creatinine 0.67 0.50-1.40 Lvl) [facility] HospitalWnfxaepHHOHQUNCRY5797-56-06 08:44:00 Test Item Value Reference Range Interpretation Comments Hgb (test code = Hgb) 10.1 12.0-16.0 [facility] HospitalOuknpnfGVHMQYNUCP1766-50-06 08:44:00 Test Item Value Reference Range Interpretation Comments RBC X 10x6 (test code = RBC X 10x6) 3.73 4.20-5.40 [facility] HospitalBkpvzjuNXCAZEQYFI1448-10-33 08:44:00 Test Item Value Reference Range Interpretation Comments MCV (test code = MCV) 81.8 80.0-98.0 [facility] HospitalXywovtbYKRMVTTHWJ7897-18-60 08:44:00 Test Item Value Reference Range Interpretation Comments WBC X 10x3 (test code = WBC X 10x3) 8.7 3.7-10.4 [facility] HospitalKoufreaPIHNBVIRIG5630-74-04 08:44:00 Test Item Value Reference Range Interpretation Comments Hct (test code = Hct) 30.5 36.0-48.0 [facility] HospitalUueooexDBOLVAGDSK5374-86-23 08:44:00 Test Item Value Reference Range Interpretation Comments MPV (test code = MPV) 9.0 7.4-10.4 [facility] HospitalKvthblhKSAYBHFDGQ0301-24-16 08:44:00 Test Item Value Reference Range Interpretation Comments MCHC (test code = MCHC) 33.2 32.0-36.0 [facility] HospitalVejhtfaGTUXSZVQKC9130-47-91 08:44:00 Test Item Value Reference Range Interpretation Comments MCH (test code = MCH) 27.1 pg 27.0-31.0 [facility] HospitalGnrwdlbNGZSJFNLUN0210-52-54 08:44:00 Test Item Value Reference Range Interpretation Comments RDW (test code = RDW) 17.4 11.5-14.5 [facility] HospitalUzaluviFCLCHDWBLY8136-29-93 08:44:00 Test Item Value Reference Range Interpretation Comments Platelet (test code = Platelet) 360 133-450 [facility]LhopcjnXFOTKOAOKUFA7531-71-42 08:44:00 Test Item Value Reference Range Interpretation Comments AGAP (test code = AGAP) 9.9 10.0-20.0 [facility]OvrkrtwEMHOJAITXYGN1161-75-88 08:44:00 Test Item Value Reference Range Interpretation Comments Sodium Lvl (test code = Sodium Lvl) 141 135-145 [facility]KmmrtwmBLTPQRYNLUWG1861-09-94 08:44:00 Test Item Value Reference Range Interpretation Comments Potassium Lvl (test code = Potassium 3.9 3.5-5.1 Lvl) [facility] MichiganGeytkccBJTOEPEIWVUW0568-01-29 08:44:00 Test Item Value Reference Range Interpretation Comments eGFR (test code = eGFR) 121 [facility]PzcnnkvRAAQYVSPDCPL4037-05-95 08:44:00 Test Item Value Reference Range Interpretation Comments Chloride Lvl (test code = Chloride Lvl) 105 95-109 [facility] MichiganPveaxemSLOXXFPHAVQT9337-47-31 08:44:00 Test Item Value Reference Range Interpretation Comments Calcium Lvl (test code = Calcium Lvl) 7.8 8.5-10.5 [facility] MichiganDgxrtbfTRCRYSHFBYTV1860-12-63 08:44:00 Test Item Value Reference Range Interpretation Comments CO2 (test code = CO2) 30 24-32 [facility]PgmjabxKONJTQSPHZHE6617-62-96 08:44:00 Test Item Value Reference Range Interpretation Comments Glucose Lvl (test code = Glucose Lvl) 111 70-99 [facility]QdgyvbcGQZXEQPWLBQZ2048-86-92 08:44:00 Test Item Value Reference Range Interpretation Comments BUN (test code = BUN) 2 7-22 [facility] MichiganWeszuxgOXNAQKNSKILK0275-75-74 08:44:00 Test Item Value Reference Range Interpretation Comments Creatinine Lvl (test code = Creatinine 0.67 0.50-1.40 Lvl) [facility] HospitalWsgjetpKYZSWZIYJS0620-56-62 08:44:00 Test Item Value Reference Range Interpretation Comments Hgb (test code = Hgb) 10.1 12.0-16.0 [facility] HospitalEmwaceeCVGUYFDFJT4940-78-47 08:44:00 Test Item Value Reference Range Interpretation Comments RBC X 10x6 (test code = RBC X 10x6) 3.73 4.20-5.40 [facility] HospitalGvfvlclKQTIFTFLMK7263-59-78 08:44:00 Test Item Value Reference Range Interpretation Comments MCV (test code = MCV) 81.8 80.0-98.0 [facility] HospitalUolqgcrKURNSASRLH0360-08-72 08:44:00 Test Item Value Reference Range Interpretation Comments WBC X 10x3 (test code = WBC X 10x3) 8.7 3.7-10.4 [facility] HospitalYipuaquYPVTQGCSKV1376-86-98 08:44:00 Test Item Value Reference Range Interpretation Comments Hct (test code = Hct) 30.5 36.0-48.0 [facility] HospitalDewwdlrLRXOJDWLUL7438-92-71 08:44:00 Test Item Value Reference Range Interpretation Comments MPV (test code = MPV) 9.0 7.4-10.4 [facility] HospitalRkfpskuGUBRYZQASU4691-65-69 08:44:00 Test Item Value Reference Range Interpretation Comments MCHC (test code = MCHC) 33.2 32.0-36.0 [facility] HospitalGkccyalOFOJZNGUUY2133-70-43 08:44:00 Test Item Value Reference Range Interpretation Comments MCH (test code = MCH) 27.1 pg 27.0-31.0 [facility] HospitalKivjkkjGDZVTSTQOI5698-29-86 08:44:00 Test Item Value Reference Range Interpretation Comments RDW (test code = RDW) 17.4 11.5-14.5 [facility] HospitalJrnshxqBCBRSFYJJO0081-68-42 08:44:00 Test Item Value Reference Range Interpretation Comments Platelet (test code = Platelet) 360 133-450 [facility]NunoobsOQUFKYGPVPNC7296-97-50 08:44:00 Test Item Value Reference Range Interpretation Comments AGAP (test code = AGAP) 9.9 10.0-20.0 [facility] MichiganIwcakbwIZATMSMALHZS9070-51-98 08:44:00 Test Item Value Reference Range Interpretation Comments Sodium Lvl (test code = Sodium Lvl) 141 135-145 [facility]SghkmwoRYXCBWEGCUXU1174-99-54 08:44:00 Test Item Value Reference Range Interpretation Comments Potassium Lvl (test code = Potassium 3.9 3.5-5.1 Lvl) [facility]VjxyikcINAOXEOQNBRU5667-47-72 08:44:00 Test Item Value Reference Range Interpretation Comments eGFR (test code = eGFR) 121 [facility]KplyhiwXJXJZMXXRQCM2850-48-01 08:44:00 Test Item Value Reference Range Interpretation Comments Chloride Lvl (test code = Chloride Lvl) 105 95-109 [facility] MichiganBxwxtfqIQHTJTHSNUUM5923-51-44 08:44:00 Test Item Value Reference Range Interpretation Comments Calcium Lvl (test code = Calcium Lvl) 7.8 8.5-10.5 [facility] MichiganCvaemrtRNCHYJIHSZZR4179-16-41 08:44:00 Test Item Value Reference Range Interpretation Comments CO2 (test code = CO2) 30 24-32 [facility] MichiganTghtgmxRUQYHPGXCMCD3863-41-19 08:44:00 Test Item Value Reference Range Interpretation Comments Glucose Lvl (test code = Glucose Lvl) 111 70-99 [facility] MichiganTgalsyuTASHQFCGOCPZ1407-92-18 08:44:00 Test Item Value Reference Range Interpretation Comments BUN (test code = BUN) 2 7-22 [facility]OmxkhnxIHVXXDBZGTHP3677-14-68 08:44:00 Test Item Value Reference Range Interpretation Comments Creatinine Lvl (test code = Creatinine 0.67 0.50-1.40 Lvl) [facility]puyzyrQGFQHSSWKQ3679[facility]45-16 08:44:00 Test Item Value Reference Range Interpretation Comments Hgb (test code = Hgb) 10.1 12.0-16.0 [facility]UyfajtrUBVHLECENNSR2230-22-78 08:44:00 Test Item Value Reference Range Interpretation Comments AGAP (test code = AGAP) 9.9 10.0-20.0 [facility]QmgfpaaHZWGIDDYPFMG8027-10-44 08:44:00 Test Item Value Reference Range Interpretation Comments Sodium Lvl (test code = Sodium Lvl) 141 135-145 [facility]SmcddgnBGPCLMMMSHWH8186-02-35 08:44:00 Test Item Value Reference Range Interpretation Comments Potassium Lvl (test code = Potassium 3.9 3.5-5.1 Lvl) [facility] MichiganRdwyjzzNHKHDRPYHGPR5803-48-01 08:44:00 Test Item Value Reference Range Interpretation Comments eGFR (test code = eGFR) 121 [facility] MichiganQyuwgytUKYRBPOSMUBJ8717-23-03 08:44:00 Test Item Value Reference Range Interpretation Comments Chloride Lvl (test code = Chloride Lvl) 105 95-109 [facility]UduzwfeAXHNTCQPAMGR1214-97-30 08:44:00 Test Item Value Reference Range Interpretation Comments Calcium Lvl (test code = Calcium Lvl) 7.8 8.5-10.5 [facility]MaorqovLNXJAUMAPOYZ1316-51-79 08:44:00 Test Item Value Reference Range Interpretation Comments CO2 (test code = CO2) 30 24-32 [facility]SjgdjirTQXIWWRPFRME9052-71-50 08:44:00 Test Item Value Reference Range Interpretation Comments Glucose Lvl (test code = Glucose Lvl) 111 70-99 [facility] MichiganRtxjvizILWWQVJBAVRK9243-34-94 08:44:00 Test Item Value Reference Range Interpretation Comments BUN (test code = BUN) 2 7-22 [facility]GwvsfgnJJTRZEZHJIBG9746-09-79 08:44:00 Test Item Value Reference Range Interpretation Comments Creatinine Lvl (test code = Creatinine 0.67 0.50-1.40 Lvl) [facility] HospitalWvfgzizSQJBSGUZMX3861-27-83 08:44:00 Test Item Value Reference Range Interpretation Comments Hgb (test code = Hgb) 10.1 12.0-16.0 [facility] HospitalCzjpvuxNISTIUPFFH3842-25-68 08:44:00 Test Item Value Reference Range Interpretation Comments RBC X 10x6 (test code = RBC X 10x6) 3.73 4.20-5.40 [facility] HospitalWwqbtdtVNROPCPLKP8688-27-40 08:44:00 Test Item Value Reference Range Interpretation Comments MCV (test code = MCV) 81.8 80.0-98.0 [facility] HospitalKvuanqxLGFZQZIXQM0698-68-27 08:44:00 Test Item Value Reference Range Interpretation Comments WBC X 10x3 (test code = WBC X 10x3) 8.7 3.7-10.4 [facility] HospitalEtzqrhjZORTTWEBAL9880-29-66 08:44:00 Test Item Value Reference Range Interpretation Comments Hct (test code = Hct) 30.5 36.0-48.0 [facility] HospitalNonsimiNHMJWELLDD4608-69-69 08:44:00 Test Item Value Reference Range Interpretation Comments MPV (test code = MPV) 9.0 7.4-10.4 [facility] HospitalUkntgepKGQJLJNONW8808-77-10 08:44:00 Test Item Value Reference Range Interpretation Comments MCHC (test code = MCHC) 33.2 32.0-36.0 [facility] HospitalUwzoqnmUUJOZGHBMX4684-44-82 08:44:00 Test Item Value Reference Range Interpretation Comments MCH (test code = MCH) 27.1 pg 27.0-31.0 [facility] HospitalNvflixlGURRYCKKHE1384-82-41 08:44:00 Test Item Value Reference Range Interpretation Comments RDW (test code = RDW) 17.4 11.5-14.5 [facility] HospitalZkayxfrFDKUAASMTG9236-08-35 08:44:00 Test Item Value Reference Range Interpretation Comments Platelet (test code = Platelet) 360 133-450 [facility]RgrqxouERNVICGDGAAC8054-77-95 08:44:00 Test Item Value Reference Range Interpretation Comments AGAP (test code = AGAP) 9.9 10.0-20.0 [facility] MichiganLgkouxhHSGWDHVONOXH1888-38-57 08:44:00 Test Item Value Reference Range Interpretation Comments Sodium Lvl (test code = Sodium Lvl) 141 135-145 [facility]KiojjtxGCDUAEXAJNWF8336-30-78 08:44:00 Test Item Value Reference Range Interpretation Comments Potassium Lvl (test code = Potassium 3.9 3.5-5.1 Lvl) [facility]BwgdixfXLTRXTGVGMYZ5708-02-41 08:44:00 Test Item Value Reference Range Interpretation Comments eGFR (test code = eGFR) 121 [facility] MichiganVolzvxgHCBGQOCSRJAZ4226-37-73 08:44:00 Test Item Value Reference Range Interpretation Comments Chloride Lvl (test code = Chloride Lvl) 105 95-109 [facility] MichiganAwloyzaVAXSLBWJGPEW1748-43-56 08:44:00 Test Item Value Reference Range Interpretation Comments Calcium Lvl (test code = Calcium Lvl) 7.8 8.5-10.5 [facility] MichiganYokhsetSPCOTBEOEUIE5075-60-65 08:44:00 Test Item Value Reference Range Interpretation Comments CO2 (test code = CO2) 30 24-32 [facility] MichiganNfsefurRPZNSTJFKTKQ5954-50-72 08:44:00 Test Item Value Reference Range Interpretation Comments Glucose Lvl (test code = Glucose Lvl) 111 70-99 [facility] MichiganRntageoABSNMYUFKKKH4394-61-90 08:44:00 Test Item Value Reference Range Interpretation Comments BUN (test code = BUN) 2 7-22 [facility]JprlgwcSHNSMKCJEYVL3089-12-91 08:44:00 Test Item Value Reference Range Interpretation Comments Creatinine Lvl (test code = Creatinine 0.67 0.50-1.40 Lvl) [facility] SystemQzbnudvUKVWYSFBZA7689-38-50 08:44:00 Test Item Value Reference Range Interpretation Comments Hgb (test code = Hgb) 10.1 12.0-16.0 [facility] HospitalRoonejiZQGOBYQXWY3385-70-64 08:44:00 Test Item Value Reference Range Interpretation Comments RBC X 10x6 (test code = RBC X 10x6) 3.73 4.20-5.40 [facility] HospitalVhydguoQIJPFMYSEO1387-18-58 08:44:00 Test Item Value Reference Range Interpretation Comments MCV (test code = MCV) 81.8 80.0-98.0 [facility] SystemXdcpwwuNRSQLHZHDJ1453-00-77 08:44:00 Test Item Value Reference Range Interpretation Comments WBC X 10x3 (test code = WBC X 10x3) 8.7 3.7-10.4 [facility] HospitalAvatihuVXWLOUEHCZ0363-56-66 08:44:00 Test Item Value Reference Range Interpretation Comments Hct (test code = Hct) 30.5 36.0-48.0 [facility] HospitalCeulptbJKXKDIWOFB0834-18-55 08:44:00 Test Item Value Reference Range Interpretation Comments MPV (test code = MPV) 9.0 7.4-10.4 [facility] HospitalMxbdwkyWJHGJLQGPO0716-05-85 08:44:00 Test Item Value Reference Range Interpretation Comments MCHC (test code = MCHC) 33.2 32.0-36.0 [facility] HospitalVbtqzqlLNCHSTMHQM1423-00-30 08:44:00 Test Item Value Reference Range Interpretation Comments MCH (test code = MCH) 27.1 pg 27.0-31.0 [facility] HospitalTtprfwgOYDFCSNTJG3738-79-94 08:44:00 Test Item Value Reference Range Interpretation Comments RDW (test code = RDW) 17.4 11.5-14.5 [facility] HospitalGjlmsdoFNCTMGYWAH4056-27-87 08:44:00 Test Item Value Reference Range Interpretation Comments Platelet (test code = Platelet) 360 133-450 [facility] HospitalKtjdcfeUSBILNMSGF6421-08-40 16:52:00 Test Item Value Reference Range Interpretation Comments Platelet (test code = Platelet) 393 133450 [facility] HospitalFcjdotfYJRCUVUAFE1876-95-51 16:52:00 Test Item Value Reference Range Interpretation Comments RDW (test code = RDW) 17.2 11.5-14.5 [facility] HospitalPrmnhwkKFRKIAFAZH9040-90-37 16:52:00 Test Item Value Reference Range Interpretation Comments MPV (test code = MPV) 8.6 7.4-10.4 [facility] HospitalWrjlwdiQFLVTMVPMI6208-47-35 16:52:00 Test Item Value Reference Range Interpretation Comments MCV (test code = MCV) 82.1 80.0-98.0 [facility] HospitalRqpzybjIJFHMYHLDF3122-54-74 16:52:00 Test Item Value Reference Range Interpretation Comments Hct (test code = Hct) 33.2 36.0-48.0 [facility] HospitalHivypnyAOWDBJZRQP9865-47-24 16:52:00 Test Item Value Reference Range Interpretation Comments MCH (test code = MCH) 26.8 pg 27.0-31.0 [facility] HospitalDitjdpuIQWXQPYVVN3265-71-16 16:52:00 Test Item Value Reference Range Interpretation Comments MCHC (test code = MCHC) 32.6 32.0-36.0 [facility] HospitalFlbtmerPIHTXFHQOS5170-77-90 16:52:00 Test Item Value Reference Range Interpretation Comments Hgb (test code = Hgb) 10.8 12.0-16.0 [facility] HospitalOkwowayCTNARLNYYM4610-90-57 16:52:00 Test Item Value Reference Range Interpretation Comments WBC X 10x3 (test code = WBC X 10x3) 7.1 3.7-10.4 [facility] HospitalSkeypigGIBLALPRUI0021-69-18 16:52:00 Test Item Value Reference Range Interpretation Comments RBC X 10x6 (test code = RBC X 10x6) 4.04 4.20-5.40 [facility] HospitalJilyycmEUSDRXOQNI0096-28-79 16:52:00 Test Item Value Reference Range Interpretation Comments Platelet (test code = Platelet) 393 133450 [facility] HospitalYtkpgapKMRYACZBIV1166-82-44 16:52:00 Test Item Value Reference Range Interpretation Comments RDW (test code = RDW) 17.2 11.5-14.5 [facility] HospitalDopcjynXNUNQTZGDX9952-18-09 16:52:00 Test Item Value Reference Range Interpretation Comments MPV (test code = MPV) 8.6 7.4-10.4 [facility] HospitalPtygisbUJMVFWMKYR6666-24-51 16:52:00 Test Item Value Reference Range Interpretation Comments MCV (test code = MCV) 82.1 80.0-98.0 [facility] HospitalXpgoeqtXSOSGWOAQU1042-39-62 16:52:00 Test Item Value Reference Range Interpretation Comments Hct (test code = Hct) 33.2 36.0-48.0 [facility] HospitalKhyokgaTRAFFWHJSF1294-50-10 16:52:00 Test Item Value Reference Range Interpretation Comments MCH (test code = MCH) 26.8 pg 27.0-31.0 [facility] HospitalKtndtatFTESXRPBSY3491-09-37 16:52:00 Test Item Value Reference Range Interpretation Comments MCHC (test code = MCHC) 32.6 32.0-36.0 [facility] HospitalNyvmtemSFDDAWJVVI7872-91-71 16:52:00 Test Item Value Reference Range Interpretation Comments Hgb (test code = Hgb) 10.8 12.0-16.0 [facility] HospitalRrhfkmfWNLOELAAGW8099-24-22 16:52:00 Test Item Value Reference Range Interpretation Comments WBC X 10x3 (test code = WBC X 10x3) 7.1 3.7-10.4 [facility] HospitalGvqbpduPLIOXFUWOL2872-84-08 16:52:00 Test Item Value Reference Range Interpretation Comments RBC X 10x6 (test code = RBC X 10x6) 4.04 4.20-5.40 [facility] HospitalAmmxjbhYKQRJECPNY2239-10-09 16:52:00 Test Item Value Reference Range Interpretation Comments Platelet (test code = Platelet) 393 133-450 [facility] HospitalRmfqrlrZFIMOWJOJZ5962-12-68 16:52:00 Test Item Value Reference Range Interpretation Comments RDW (test code = RDW) 17.2 11.5-14.5 [facility] HospitalVswavpeRCXEFMCXXB1989 16:52:00 Test Item Value Reference Range Interpretation Comments MPV (test code = MPV) 8.6 7.4-10.4 [facility] HospitalDkixvelQSVYSTTNZP4701-31-94 16:52:00 Test Item Value Reference Range Interpretation Comments MCV (test code = MCV) 82.1 80.0-98.0 [facility] HospitalWgzmznfQCJYEOJXZZ0923-76-36 16:52:00 Test Item Value Reference Range Interpretation Comments Hct (test code = Hct) 33.2 36.0-48.0 [facility] HospitalYlzwkriERVWDXBPQM6886-71-83 16:52:00 Test Item Value Reference Range Interpretation Comments MCH (test code = MCH) 26.8 pg 27.0-31.0 [facility] HospitalGrszaadAFQOPWEFKT5490-01-27 16:52:00 Test Item Value Reference Range Interpretation Comments MCHC (test code = MCHC) 32.6 32.0-36.0 [facility] HospitalExszcgsCDPXKTGXNE1941-44-30 16:52:00 Test Item Value Reference Range Interpretation Comments Hgb (test code = Hgb) 10.8 12.0-16.0 [facility] HospitalLccazpoGSYOYFIUHR9369-49-28 16:52:00 Test Item Value Reference Range Interpretation Comments WBC X 10x3 (test code = WBC X 10x3) 7.1 3.7-10.4 [facility] HospitalGzpdzaiCXRQQQJGLM6715-60-63 16:52:00 Test Item Value Reference Range Interpretation Comments RBC X 10x6 (test code = RBC X 10x6) 4.04 4.20-5.40 [facility] HospitalWqmkwopRUYTRVCFOC0875-67-76 16:52:00 Test Item Value Reference Range Interpretation Comments Platelet (test code = Platelet) 393 133-450 [facility] HospitalYebcdlhFXODLTMAYR4598-36-27 16:52:00 Test Item Value Reference Range Interpretation Comments RDW (test code = RDW) 17.2 11.5-14.5 [facility] HospitalHmgberqFDZJFCROMO0565-12-89 16:52:00 Test Item Value Reference Range Interpretation Comments MPV (test code = MPV) 8.6 7.4-10.4 [facility] HospitalGikwtksXIKEAYTFMS4781-38-83 16:52:00 Test Item Value Reference Range Interpretation Comments MCV (test code = MCV) 82.1 80.0-98.0 [facility] HospitalNnsmfsuZBHTXLHPNR7337-26-90 16:52:00 Test Item Value Reference Range Interpretation Comments Hct (test code = Hct) 33.2 36.0-48.0 [facility] HospitalBmhvxvyOYWPLOLARB1448-07-28 16:52:00 Test Item Value Reference Range Interpretation Comments MCH (test code = MCH) 26.8 pg 27.0-31.0 [facility] HospitalVyacmizKWVKMWYGBL3538-37-35 16:52:00 Test Item Value Reference Range Interpretation Comments MCHC (test code = MCHC) 32.6 32.0-36.0 [facility] HospitalVqtziyjTSGSHQXMAK6528-85-25 16:52:00 Test Item Value Reference Range Interpretation Comments Hgb (test code = Hgb) 10.8 12.0-16.0 [facility] HospitalYqepwziDYYTWTBMKC8648-34-53 16:52:00 Test Item Value Reference Range Interpretation Comments WBC X 10x3 (test code = WBC X 10x3) 7.1 3.7-10.4 [facility] HospitalDqxwmwxXJHPQBDPTI1247-99-92 16:52:00 Test Item Value Reference Range Interpretation Comments RBC X 10x6 (test code = RBC X 10x6) 4.04 4.20-5.40 [facility] HospitalThwjtcoDYFBIVUCOX9693-45-74 16:52:00 Test Item Value Reference Range Interpretation Comments Platelet (test code = Platelet) 393 133-450 [facility] HospitalRgpsrnwVTYRQODQDK3018-19-30 16:52:00 Test Item Value Reference Range Interpretation Comments RDW (test code = RDW) 17.2 11.5-14.5 [facility] HospitalXpkmpjyJUNGOSTCXF2922-92-59 16:52:00 Test Item Value Reference Range Interpretation Comments MPV (test code = MPV) 8.6 7.4-10.4 [facility] HospitalAttgwtrDWUOEGBXGC9807-81-37 16:52:00 Test Item Value Reference Range Interpretation Comments MCV (test code = MCV) 82.1 80.0-98.0 [facility] HospitalCgmikmuNIFTUYZIJJ6342-12-38 16:52:00 Test Item Value Reference Range Interpretation Comments Hct (test code = Hct) 33.2 36.0-48.0 [facility] HospitalHotxrvqCVZUMUCDMF5160-69-26 16:52:00 Test Item Value Reference Range Interpretation Comments MCH (test code = MCH) 26.8 pg 27.0-31.0 [facility] HospitalMduxwmiLCAXSHCKPY8620-91-83 16:52:00 Test Item Value Reference Range Interpretation Comments MCHC (test code = MCHC) 32.6 32.0-36.0 [facility] HospitalVyfomfxROFTNBALBA7166-83-20 16:52:00 Test Item Value Reference Range Interpretation Comments Hgb (test code = Hgb) 10.8 12.0-16.0 [facility] HospitalJpkdctkKGYYXQGYJO9125-57-94 16:52:00 Test Item Value Reference Range Interpretation Comments WBC X 10x3 (test code = WBC X 10x3) 7.1 3.7-10.4 [facility] HospitalWresgbkWSDFBVDLMM7207-52-43 16:52:00 Test Item Value Reference Range Interpretation Comments RBC X 10x6 (test code = RBC X 10x6) 4.04 4.20-5.40 [facility] HospitalJcpuoksMVQPXRPSGX3583-77-24 16:52:00 Test Item Value Reference Range Interpretation Comments Platelet (test code = Platelet) 393 133-450 [facility] HospitalSbwubmoTITEMALTYM9654-04-47 16:52:00 Test Item Value Reference Range Interpretation Comments RDW (test code = RDW) 17.2 11.5-14.5 [facility] HospitalOzwgblnROMYOUFTMD8123-14-53 16:52:00 Test Item Value Reference Range Interpretation Comments MPV (test code = MPV) 8.6 7.4-10.4 [facility] HospitalQyjpoflTFKDTROUKM9674-10-19 16:52:00 Test Item Value Reference Range Interpretation Comments MCV (test code = MCV) 82.1 80.0-98.0 [facility] HospitalToocyouDYQJWLHDGR5600-55-26 16:52:00 Test Item Value Reference Range Interpretation Comments Hct (test code = Hct) 33.2 36.0-48.0 [facility] HospitalGgrifclBZTZVAMWEH1869-34-83 16:52:00 Test Item Value Reference Range Interpretation Comments MCH (test code = MCH) 26.8 pg 27.0-31.0 [facility] HospitalPwjgcbdLZWZVTQADI3445-90-20 16:52:00 Test Item Value Reference Range Interpretation Comments MCHC (test code = MCHC) 32.6 32.0-36.0 [facility] HospitalYpwbxbdWKQQRHJEYW8769-67-41 16:52:00 Test Item Value Reference Range Interpretation Comments Hgb (test code = Hgb) 10.8 12.0-16.0 [facility] HospitalXtgwdivUWLRGXPMBD1786-08-33 16:52:00 Test Item Value Reference Range Interpretation Comments WBC X 10x3 (test code = WBC X 10x3) 7.1 3.7-10.4 [facility] HospitalWajmkrhMMLJLJDPSQ2569-61-44 16:52:00 Test Item Value Reference Range Interpretation Comments RBC X 10x6 (test code = RBC X 10x6) 4.04 4.20-5.40 [facility] HospitalLakjolaWYNPLJMGIG6441-61-12 16:52:00 Test Item Value Reference Range Interpretation Comments Platelet (test code = Platelet) 393 205-337 [facility] HospitalOfkzydeKRACAVDNNZ5535-54-43 16:52:00 Test Item Value Reference Range Interpretation Comments RDW (test code = RDW) 17.2 11.5-14.5 [facility] HospitalUxgcyvyEKONBQWVHU8007-64-24 16:52:00 Test Item Value Reference Range Interpretation Comments MPV (test code = MPV) 8.6 7.4-10.4 [facility] HospitalYqkislqKCQWBAFALT4885-98-25 16:52:00 Test Item Value Reference Range Interpretation Comments MCV (test code = MCV) 82.1 80.0-98.0 [facility] HospitalWygumnwBOUMHSHOMB4783-71-84 16:52:00 Test Item Value Reference Range Interpretation Comments Hct (test code = Hct) 33.2 36.0-48.0 [facility] HospitalKhtcxhaZFDZUFJJIW4605-96-62 16:52:00 Test Item Value Reference Range Interpretation Comments MCH (test code = MCH) 26.8 pg 27.0-31.0 [facility] HospitalPtwzpdrMTGISPCILD6580-66-70 16:52:00 Test Item Value Reference Range Interpretation Comments MCHC (test code = MCHC) 32.6 32.0-36.0 [facility] HospitalSvauojiFFJJNXBHQX1808-91-29 16:52:00 Test Item Value Reference Range Interpretation Comments Hgb (test code = Hgb) 10.8 12.0-16.0 [facility] HospitalDipixfuYLWJXPKOAV1325-68-07 16:52:00 Test Item Value Reference Range Interpretation Comments WBC X 10x3 (test code = WBC X 10x3) 7.1 3.7-10.4 [facility] HospitalOfgljhyGYJPJZSBVH5574-32-35 16:52:00 Test Item Value Reference Range Interpretation Comments RBC X 10x6 (test code = RBC X 10x6) 4.04 4.20-5.40 [facility] HospitalNnkzdqgXCMKILZXHG6199-96-35 16:52:00 Test Item Value Reference Range Interpretation Comments Platelet (test code = Platelet) 393 133-178 [facility] HospitalEjmplomSXJTLZYEPE3021-19-44 16:52:00 Test Item Value Reference Range Interpretation Comments RDW (test code = RDW) 17.2 11.5-14.5 [facility] HospitalGawcyiuVQTBBFIQDN5508-93-60 16:52:00 Test Item Value Reference Range Interpretation Comments MPV (test code = MPV) 8.6 7.4-10.4 [facility] HospitalVtgxfkkOGKIRBYXHE0845-75-01 16:52:00 Test Item Value Reference Range Interpretation Comments MCV (test code = MCV) 82.1 80.0-98.0 [facility] HospitalOmbzpgxHOPFJRQPKY6696-39-91 16:52:00 Test Item Value Reference Range Interpretation Comments Hct (test code = Hct) 33.2 36.0-48.0 [facility] HospitalFnqlvfqOGKPCBPKJX2858-80-73 16:52:00 Test Item Value Reference Range Interpretation Comments MCH (test code = MCH) 26.8 pg 27.0-31.0 [facility] HospitalWpcfhrnNYBWDJJLGG1155-92-92 16:52:00 Test Item Value Reference Range Interpretation Comments MCHC (test code = MCHC) 32.6 32.0-36.0 [facility] HospitalJfpqckgQPVDMGFUXA5912-01-16 16:52:00 Test Item Value Reference Range Interpretation Comments Hgb (test code = Hgb) 10.8 12.0-16.0 [facility] HospitalTzughesCSLAPSRWBT6355-45-65 16:52:00 Test Item Value Reference Range Interpretation Comments WBC X 10x3 (test code = WBC X 10x3) 7.1 3.7-10.4 [facility] HospitalQiavtdeJOKMCLLROV7068-49-03 16:52:00 Test Item Value Reference Range Interpretation Comments RBC X 10x6 (test code = RBC X 10x6) 4.04 4.20-5.40 [facility] HospitalTmlxechZGGRGGSLAJ0504-51-98 16:52:00 Test Item Value Reference Range Interpretation Comments Platelet (test code = Platelet) 393 133-450 [facility] HospitalOlmdlddQFZNDPMWMS7459-56-47 16:52:00 Test Item Value Reference Range Interpretation Comments RDW (test code = RDW) 17.2 11.5-14.5 [facility] HospitalJvozujaWORKYIODKI4971-61-54 16:52:00 Test Item Value Reference Range Interpretation Comments MPV (test code = MPV) 8.6 7.4-10.4 [facility] HospitalJguaafyWZIHAUCYYT3579-13-35 16:52:00 Test Item Value Reference Range Interpretation Comments MCV (test code = MCV) 82.1 80.0-98.0 [facility] HospitalGegjmprNIILRHCVKZ0945-82-17 16:52:00 Test Item Value Reference Range Interpretation Comments Hct (test code = Hct) 33.2 36.0-48.0 [facility] HospitalBuaoxkuUXPRMULQEX7301-04-51 16:52:00 Test Item Value Reference Range Interpretation Comments MCH (test code = MCH) 26.8 pg 27.0-31.0 [facility] HospitalZgoninpHDPAUJBPLN6385-73-68 16:52:00 Test Item Value Reference Range Interpretation Comments MCHC (test code = MCHC) 32.6 32.0-36.0 [facility] HospitalHwvbaojADHZGSLGMZ8250-07-20 16:52:00 Test Item Value Reference Range Interpretation Comments Hgb (test code = Hgb) 10.8 12.0-16.0 [facility] HospitalBohsqpmJUHLESRYDD5090-04-82 16:52:00 Test Item Value Reference Range Interpretation Comments WBC X 10x3 (test code = WBC X 10x3) 7.1 3.7-10.4 [facility] HospitalMhbyqbqNANAQVJSOX8790-65-72 16:52:00 Test Item Value Reference Range Interpretation Comments RBC X 10x6 (test code = RBC X 10x6) 4.04 4.20-5.40 [facility] HospitalDfyttibRQJUNGFCUC1387-70-99 16:52:00 Test Item Value Reference Range Interpretation Comments Platelet (test code = Platelet) 393 133-450 [facility] HospitalXkfdrdhRJEZXECTIX3002-71-92 16:52:00 Test Item Value Reference Range Interpretation Comments RDW (test code = RDW) 17.2 11.5-14.5 [facility] HospitalVtshvknWKYJGZNUUV1808-15-59 16:52:00 Test Item Value Reference Range Interpretation Comments MPV (test code = MPV) 8.6 7.4-10.4 [facility] HospitalHuzkhfrCFELIQFECW4090-94-69 16:52:00 Test Item Value Reference Range Interpretation Comments MCV (test code = MCV) 82.1 80.0-98.0 [facility] HospitalSkrlmrkKISRKLHNOV2857-65-56 16:52:00 Test Item Value Reference Range Interpretation Comments Hct (test code = Hct) 33.2 36.0-48.0 [facility] HospitalBcribzaJOXHESBQVZ6578-71-95 16:52:00 Test Item Value Reference Range Interpretation Comments MCH (test code = MCH) 26.8 pg 27.0-31.0 [facility] HospitalLuftzsxBTBECQRKUY5223-77-85 16:52:00 Test Item Value Reference Range Interpretation Comments MCHC (test code = MCHC) 32.6 32.0-36.0 [facility] HospitalMbgacujPOANXKMFMV5260-81-29 16:52:00 Test Item Value Reference Range Interpretation Comments Hgb (test code = Hgb) 10.8 12.0-16.0 [facility] HospitalOrcxhasUQTOJPPOKF0542-17-08 16:52:00 Test Item Value Reference Range Interpretation Comments WBC X 10x3 (test code = WBC X 10x3) 7.1 3.7-10.4 [facility] HospitalMnlgblyBIASULDCKO7028-68-54 16:52:00 Test Item Value Reference Range Interpretation Comments RBC X 10x6 (test code = RBC X 10x6) 4.04 4.20-5.40 [facility] HospitalVijwedsUTIPPJZRAA2220-68-40 16:52:00 Test Item Value Reference Range Interpretation Comments Platelet (test code = Platelet) 393 133-450 [facility] HospitalQpykixnAUKWAJYMYS8326-70-52 16:52:00 Test Item Value Reference Range Interpretation Comments RDW (test code = RDW) 17.2 11.5-14.5 [facility] HospitalCrbpcyyHDWABMKYTM3672-68-07 16:52:00 Test Item Value Reference Range Interpretation Comments MPV (test code = MPV) 8.6 7.4-10.4 [facility] HospitalHtlsrnmBENDUIONJY7201-34-67 16:52:00 Test Item Value Reference Range Interpretation Comments MCV (test code = MCV) 82.1 80.0-98.0 [facility] HospitalLxloxdhBEEQMVJSOJ3648-95-50 16:52:00 Test Item Value Reference Range Interpretation Comments Hct (test code = Hct) 33.2 36.0-48.0 [facility] HospitalRccevjoHAVQXQKATI1584-57-63 16:52:00 Test Item Value Reference Range Interpretation Comments MCH (test code = MCH) 26.8 pg 27.0-31.0 [facility] HospitalQjvszgjMDUXIPIVJS8790-80-96 16:52:00 Test Item Value Reference Range Interpretation Comments MCHC (test code = MCHC) 32.6 32.0-36.0 [facility] HospitalJbhtzzdJKFOGGZGOP2984-53-80 16:52:00 Test Item Value Reference Range Interpretation Comments Hgb (test code = Hgb) 10.8 12.0-16.0 [facility] HospitalNjwhsbnQRHRYKDIHV5096-54-96 16:52:00 Test Item Value Reference Range Interpretation Comments WBC X 10x3 (test code = WBC X 10x3) 7.1 3.7-10.4 [facility] HospitalBxwlsmsOMREIOWQJB7177-32-71 16:52:00 Test Item Value Reference Range Interpretation Comments RBC X 10x6 (test code = RBC X 10x6) 4.04 4.20-5.40 [facility] HospitalOqkgqvuEDGRJHJCZX6613-93-50 16:52:00 Test Item Value Reference Range Interpretation Comments Platelet (test code = Platelet) 393 584-942 [facility] HospitalWmnfpwtNTMRJZROXD3284-77-49 16:52:00 Test Item Value Reference Range Interpretation Comments RDW (test code = RDW) 17.2 11.5-14.5 [facility] HospitalOzmmhnvCZOPFEXXSQ7626-03-48 16:52:00 Test Item Value Reference Range Interpretation Comments MPV (test code = MPV) 8.6 7.4-10.4 [facility] HospitalRwhophmWNTIFRVDNX5909-79-08 16:52:00 Test Item Value Reference Range Interpretation Comments MCV (test code = MCV) 82.1 80.0-98.0 [facility] HospitalDluuyirHVSDRHJCAT9374-15-28 16:52:00 Test Item Value Reference Range Interpretation Comments Hct (test code = Hct) 33.2 36.0-48.0 [facility] HospitalAqdiqrbUFBKIGUUCS5468-89-11 16:52:00 Test Item Value Reference Range Interpretation Comments Platelet (test code = Platelet) 393 712-105 [facility] HospitalBvimdhdPFZVCNZVXJ4783-50-48 16:52:00 Test Item Value Reference Range Interpretation Comments RDW (test code = RDW) 17.2 11.5-14.5 [facility] HospitalYstuoenHDPSVPJUCT9542-20-44 16:52:00 Test Item Value Reference Range Interpretation Comments MCH (test code = MCH) 26.8 pg 27.0-31.0 [facility] HospitalZaxepjiRWZZHPFOEB1235-40-79 16:52:00 Test Item Value Reference Range Interpretation Comments MPV (test code = MPV) 8.6 7.4-10.4 [facility] HospitalXyuyrzjMCSDLHSYFW7044-77-95 16:52:00 Test Item Value Reference Range Interpretation Comments MCHC (test code = MCHC) 32.6 32.0-36.0 [facility] HospitalZkbuiilQKPHWGYDYW7010-94-27 16:52:00 Test Item Value Reference Range Interpretation Comments MCV (test code = MCV) 82.1 80.0-98.0 [facility] HospitalJyxiylcGKHDWGOSWB5884-07-80 16:52:00 Test Item Value Reference Range Interpretation Comments Hgb (test code = Hgb) 10.8 12.0-16.0 [facility] HospitalPnbmeabVBLKFWXMAR5819-43-72 16:52:00 Test Item Value Reference Range Interpretation Comments Hct (test code = Hct) 33.2 36.0-48.0 [facility] HospitalGlwhtolOEBQKPDLWQ0110-96-58 16:52:00 Test Item Value Reference Range Interpretation Comments WBC X 10x3 (test code = WBC X 10x3) 7.1 3.7-10.4 [facility] HospitalKdlxhllWEHKASVBBK0870-12-52 16:52:00 Test Item Value Reference Range Interpretation Comments MCH (test code = MCH) 26.8 pg 27.0-31.0 [facility] HospitalJpcvlwwVSELPDHVHW2321-79-45 16:52:00 Test Item Value Reference Range Interpretation Comments RBC X 10x6 (test code = RBC X 10x6) 4.04 4.20-5.40 [facility] HospitalRdedtbrDBGORDANDR0531-37-35 16:52:00 Test Item Value Reference Range Interpretation Comments MCHC (test code = MCHC) 32.6 32.0-36.0 [facility] HospitalUuchwaiMJHCUQVPBH6269-09-30 16:52:00 Test Item Value Reference Range Interpretation Comments Hgb (test code = Hgb) 10.8 12.0-16.0 [facility] HospitalVchhtkrZMDUFEFATB6386-71-18 16:52:00 Test Item Value Reference Range Interpretation Comments WBC X 10x3 (test code = WBC X 10x3) 7.1 3.7-10.4 [facility] HospitalVoenzzjNPNHEGGDRR2787-70-42 16:52:00 Test Item Value Reference Range Interpretation Comments RBC X 10x6 (test code = RBC X 10x6) 4.04 4.20-5.40 [facility] HospitalXoncibtOJJBJMHOSP0112-39-08 16:52:00 Test Item Value Reference Range Interpretation Comments Platelet (test code = Platelet) 393 133-450 [facility] HospitalToqfjqkCORQDCBIMK5519-53-12 16:52:00 Test Item Value Reference Range Interpretation Comments RDW (test code = RDW) 17.2 11.5-14.5 [facility] HospitalDzrwzbcOXJZJFKWYX7896-53-82 16:52:00 Test Item Value Reference Range Interpretation Comments MPV (test code = MPV) 8.6 7.4-10.4 [facility] HospitalNottnrlSCEBJMDLWU3555-84-39 16:52:00 Test Item Value Reference Range Interpretation Comments MCV (test code = MCV) 82.1 80.0-98.0 [facility] HospitalWwhsuhkPDSKZLOZWR1131-91-24 16:52:00 Test Item Value Reference Range Interpretation Comments Hct (test code = Hct) 33.2 36.0-48.0 [facility] HospitalLyxzaorTAULDIATIG2196-76-41 16:52:00 Test Item Value Reference Range Interpretation Comments MCH (test code = MCH) 26.8 pg 27.0-31.0 [facility] HospitalIonycydEUUFWXDKJR5954-27-35 16:52:00 Test Item Value Reference Range Interpretation Comments MCHC (test code = MCHC) 32.6 32.0-36.0 [facility] HospitalQwtwvgyYYZYXJPSSX4655-72-85 16:52:00 Test Item Value Reference Range Interpretation Comments Hgb (test code = Hgb) 10.8 12.0-16.0 [facility] HospitalBcgubmyFXTMWRZKRQ9195-91-63 16:52:00 Test Item Value Reference Range Interpretation Comments WBC X 10x3 (test code = WBC X 10x3) 7.1 3.7-10.4 [facility] HospitalKhcshtkTANCKKFYMW9239-32-44 16:52:00 Test Item Value Reference Range Interpretation Comments RBC X 10x6 (test code = RBC X 10x6) 4.04 4.20-5.40 [facility] HospitalIcvykfmEBHUTJDEFI1010-88-18 16:52:00 Test Item Value Reference Range Interpretation Comments Platelet (test code = Platelet) 393 133-450 [facility] HospitalKogemtcIVTLPCZSJB0777-92-28 16:52:00 Test Item Value Reference Range Interpretation Comments RDW (test code = RDW) 17.2 11.5-14.5 [facility] HospitalIenauimAXVJYAJFJK0567-73-13 16:52:00 Test Item Value Reference Range Interpretation Comments MPV (test code = MPV) 8.6 7.4-10.4 [facility] HospitalWkwwtvnJHZVUEZWTL3737-12-83 16:52:00 Test Item Value Reference Range Interpretation Comments MCV (test code = MCV) 82.1 80.0-98.0 [facility] HospitalGwdyubfCCTANAFGSE0300-10-22 16:52:00 Test Item Value Reference Range Interpretation Comments Hct (test code = Hct) 33.2 36.0-48.0 [facility] HospitalIujcapqNMBPJUCWKZ4737-07-77 16:52:00 Test Item Value Reference Range Interpretation Comments MCH (test code = MCH) 26.8 pg 27.0-31.0 [facility] HospitalMqvhofbVLTFBYDELV5474-33-09 16:52:00 Test Item Value Reference Range Interpretation Comments MCHC (test code = MCHC) 32.6 32.0-36.0 [facility] HospitalEhmhmrjPZAUTUVVYB8564-61-63 16:52:00 Test Item Value Reference Range Interpretation Comments Hgb (test code = Hgb) 10.8 12.0-16.0 [facility] HospitalBrpbkojJYYCSLPMWT2261-88-40 16:52:00 Test Item Value Reference Range Interpretation Comments WBC X 10x3 (test code = WBC X 10x3) 7.1 3.7-10.4 [facility] HospitalZyenbhrPAJLNRZGTC2030-69-53 16:52:00 Test Item Value Reference Range Interpretation Comments RBC X 10x6 (test code = RBC X 10x6) 4.04 4.20-5.40 [facility] HospitalWwlvhdtXCYCHFPCJE8980-27-47 16:52:00 Test Item Value Reference Range Interpretation Comments Platelet (test code = Platelet) 393 133-450 [facility] HospitalGgheafhIDRFBWZLJB4854-39-05 16:52:00 Test Item Value Reference Range Interpretation Comments RDW (test code = RDW) 17.2 11.5-14.5 [facility] HospitalOdabfotYEKZUTMRMA4123-34-93 16:52:00 Test Item Value Reference Range Interpretation Comments MPV (test code = MPV) 8.6 7.4-10.4 [facility] HospitalBwmuoytAAWMRZDFFD9382-34-15 16:52:00 Test Item Value Reference Range Interpretation Comments MCV (test code = MCV) 82.1 80.0-98.0 [facility] HospitalAmmnwavNVOESVLZTF5177-51-29 16:52:00 Test Item Value Reference Range Interpretation Comments Hct (test code = Hct) 33.2 36.0-48.0 [facility] HospitalFjuvrqfJINOXCCUNM1897-94-62 16:52:00 Test Item Value Reference Range Interpretation Comments MCH (test code = MCH) 26.8 pg 27.0-31.0 [facility] HospitalRjckwnyLBNXKDFRDI4070-86-49 16:52:00 Test Item Value Reference Range Interpretation Comments MCHC (test code = MCHC) 32.6 32.0-36.0 [facility] HospitalBkhhhwePAFULFJNRG9348-88-06 16:52:00 Test Item Value Reference Range Interpretation Comments Hgb (test code = Hgb) 10.8 12.0-16.0 [facility] HospitalSmealxuJVDQBORPNX6861-26-71 16:52:00 Test Item Value Reference Range Interpretation Comments WBC X 10x3 (test code = WBC X 10x3) 7.1 3.7-10.4 [facility] HospitalWfggozuITEASFXVMO1534-88-42 16:52:00 Test Item Value Reference Range Interpretation Comments RBC X 10x6 (test code = RBC X 10x6) 4.04 4.20-5.40 [facility] HospitalTlbncdlKWESXLIUXI6643-29-92 16:52:00 Test Item Value Reference Range Interpretation Comments Platelet (test code = Platelet) 393 133-450 [facility] HospitalPowwwaxFTWIQPMTJI3544-26-39 16:52:00 Test Item Value Reference Range Interpretation Comments RDW (test code = RDW) 17.2 11.5-14.5 [facility] HospitalRcenzaaAVWVRWTPNW6046-74-83 16:52:00 Test Item Value Reference Range Interpretation Comments MPV (test code = MPV) 8.6 7.4-10.4 [facility] HospitalQahsvjsXJSZFSOSFN3683-94-65 16:52:00 Test Item Value Reference Range Interpretation Comments MCV (test code = MCV) 82.1 80.0-98.0 [facility] HospitalXwyqqgpUSJHXEPBBM1358-34-75 16:52:00 Test Item Value Reference Range Interpretation Comments Hct (test code = Hct) 33.2 36.0-48.0 [facility] HospitalQlwcjcsEFKVWPDKKW2410-47-90 16:52:00 Test Item Value Reference Range Interpretation Comments MCH (test code = MCH) 26.8 pg 27.0-31.0 [facility] HospitalPafdjwcIZHUBTMBSW9765-85-49 16:52:00 Test Item Value Reference Range Interpretation Comments MCHC (test code = MCHC) 32.6 32.0-36.0 [facility] HospitalKzqiedwLTPGDUKSII5071-55-98 16:52:00 Test Item Value Reference Range Interpretation Comments Hgb (test code = Hgb) 10.8 12.0-16.0 [facility] HospitalZhqfuhwUDDSZJFQED2337-83-70 16:52:00 Test Item Value Reference Range Interpretation Comments WBC X 10x3 (test code = WBC X 10x3) 7.1 3.7-10.4 [facility] HospitalAtrbjefPAEROCZCYS3581-93-16 16:52:00 Test Item Value Reference Range Interpretation Comments RBC X 10x6 (test code = RBC X 10x6) 4.04 4.20-5.40 [facility] HospitalFcmqrnuPQZJPZNOBS6266-39-73 16:52:00 Test Item Value Reference Range Interpretation Comments Platelet (test code = Platelet) 393 133-450 [facility] HospitalGcwrgbyPNJLBGLKUD0032-45-04 16:52:00 Test Item Value Reference Range Interpretation Comments RDW (test code = RDW) 17.2 11.5-14.5 [facility] HospitalQjnviuaCIMZIJLREC6809-09-21 16:52:00 Test Item Value Reference Range Interpretation Comments MPV (test code = MPV) 8.6 7.4-10.4 [facility] HospitalQwkmfqbEQEYMNEXAT6000-01-78 16:52:00 Test Item Value Reference Range Interpretation Comments MCV (test code = MCV) 82.1 80.0-98.0 [facility] HospitalZsnybwdLMYTJHSLHP4332-81-59 16:52:00 Test Item Value Reference Range Interpretation Comments Hct (test code = Hct) 33.2 36.0-48.0 [facility] HospitalUrcmxccXHBONWLWUS1530-99-75 16:52:00 Test Item Value Reference Range Interpretation Comments MCH (test code = MCH) 26.8 pg 27.0-31.0 [facility] HospitalCtzwekqNXNDQDMPMQ7423-10-30 16:52:00 Test Item Value Reference Range Interpretation Comments MCHC (test code = MCHC) 32.6 32.0-36.0 [facility] HospitalIokerpqNBBELHAFON0389-83-55 16:52:00 Test Item Value Reference Range Interpretation Comments Hgb (test code = Hgb) 10.8 12.0-16.0 [facility] HospitalDiphqjoXEWJWZCBJV7113-32-52 16:52:00 Test Item Value Reference Range Interpretation Comments WBC X 10x3 (test code = WBC X 10x3) 7.1 3.7-10.4 [facility] HospitalDrlogavWDRKTNGUJV1122-23-12 16:52:00 Test Item Value Reference Range Interpretation Comments RBC X 10x6 (test code = RBC X 10x6) 4.04 4.20-5.40 [facility]2016-10-29 08:33:00 Test Item Value Reference Range Interpretation Comments eGFR (test code = eGFR) 121 [facility]2016-10-29 08:33:00 Test Item Value Reference Range Interpretation Comments Creatinine Lvl (test code = Creatinine 0.67 0.50-1.40 Lvl) [facility]2016-10-29 08:33:00 Test Item Value Reference Range Interpretation Comments BUN (test code = BUN) 4 7- [facility]2016-10-29 08:33:00 Test Item Value Reference Range Interpretation Comments Chloride Lvl (test code = Chloride Lvl) 108 95-109 [facility]2016-10-29 08:33:00 Test Item Value Reference Range Interpretation Comments Potassium Lvl (test code = Potassium 3.5 3.5-5.1 Lvl) [facility]2016-10-29 08:33:00 Test Item Value Reference Range Interpretation Comments Calcium Lvl (test code = Calcium Lvl) 7.8 8.5-10.5 [facility]2016-10-29 08:33:00 Test Item Value Reference Range Interpretation Comments CO2 (test code = CO2) 31 24-32 [facility]2016-10-29 08:33:00 Test Item Value Reference Range Interpretation Comments Glucose Lvl (test code = Glucose Lvl) 95 70-99 [facility]2016-10-29 08:33:00 Test Item Value Reference Range Interpretation Comments AGAP (test code = AGAP) 7.5 10.0-20.0 [facility]2016-10-29 08:33:00 Test Item Value Reference Range Interpretation Comments Sodium Lvl (test code = Sodium Lvl) 143 135-145 [facility]2016-10-29 08:33:00 Test Item Value Reference Range Interpretation Comments eGFR (test code = eGFR) 121 [facility]2016-10-29 08:33:00 Test Item Value Reference Range Interpretation Comments Creatinine Lvl (test code = Creatinine 0.67 0.50-1.40 Lvl) [facility]2016-10-29 08:33:00 Test Item Value Reference Range Interpretation Comments BUN (test code = BUN) 4 - [facility]2016-10-29 08:33:00 Test Item Value Reference Range Interpretation Comments Chloride Lvl (test code = Chloride Lvl) 108 95-109 [facility]2016-10-29 08:33:00 Test Item Value Reference Range Interpretation Comments Potassium Lvl (test code = Potassium 3.5 3.5-5.1 Lvl) [facility]2016-10-29 08:33:00 Test Item Value Reference Range Interpretation Comments Calcium Lvl (test code = Calcium Lvl) 7.8 8.5-10.5 [facility]2016-10-29 08:33:00 Test Item Value Reference Range Interpretation Comments CO2 (test code = CO2) 31 24-32 [facility]2016-10-29 08:33:00 Test Item Value Reference Range Interpretation Comments Glucose Lvl (test code = Glucose Lvl) 95 70-99 [facility]2016-10-29 08:33:00 Test Item Value Reference Range Interpretation Comments AGAP (test code = AGAP) 7.5 10.0-20.0 [facility]2016-10-29 08:33:00 Test Item Value Reference Range Interpretation Comments Sodium Lvl (test code = Sodium Lvl) 143 135-145 [facility]2016-10-29 08:33:00 Test Item Value Reference Range Interpretation Comments eGFR (test code = eGFR) 121 [facility]2016-10-29 08:33:00 Test Item Value Reference Range Interpretation Comments Creatinine Lvl (test code = Creatinine 0.67 0.50-1.40 Lvl) [facility]2016-10-29 08:33:00 Test Item Value Reference Range Interpretation Comments BUN (test code = BUN) 4 7-22 [facility]2016-10-29 08:33:00 Test Item Value Reference Range Interpretation Comments Chloride Lvl (test code = Chloride Lvl) 108 95-109 [facility]2016-10-29 08:33:00 Test Item Value Reference Range Interpretation Comments Potassium Lvl (test code = Potassium 3.5 3.5-5.1 Lvl) [facility]2016-10-29 08:33:00 Test Item Value Reference Range Interpretation Comments Calcium Lvl (test code = Calcium Lvl) 7.8 8.5-10.5 [facility]2016-10-29 08:33:00 Test Item Value Reference Range Interpretation Comments eGFR (test code = eGFR) 121 [facility]2016-10-29 08:33:00 Test Item Value Reference Range Interpretation Comments Creatinine Lvl (test code = Creatinine 0.67 0.50-1.40 Lvl) [facility]2016-10-29 08:33:00 Test Item Value Reference Range Interpretation Comments BUN (test code = BUN) 4 7-22 [facility]2016-10-29 08:33:00 Test Item Value Reference Range Interpretation Comments Chloride Lvl (test code = Chloride Lvl) 108 95-109 [facility]2016-10-29 08:33:00 Test Item Value Reference Range Interpretation Comments Potassium Lvl (test code = Potassium 3.5 3.5-5.1 Lvl) [facility]2016-10-29 08:33:00 Test Item Value Reference Range Interpretation Comments Calcium Lvl (test code = Calcium Lvl) 7.8 8.5-10.5 [facility]2016-10-29 08:33:00 Test Item Value Reference Range Interpretation Comments CO2 (test code = CO2) 31 24-32 [facility]2016-10-29 08:33:00 Test Item Value Reference Range Interpretation Comments CO2 (test code = CO2) 31 24-32 [facility]2016-10-29 08:33:00 Test Item Value Reference Range Interpretation Comments Glucose Lvl (test code = Glucose Lvl) 95 70-99 [facility]2016-10-29 08:33:00 Test Item Value Reference Range Interpretation Comments AGAP (test code = AGAP) 7.5 10.0-20.0 [facility]2016-10-29 08:33:00 Test Item Value Reference Range Interpretation Comments Sodium Lvl (test code = Sodium Lvl) 143 135-145 [facility]2016-10-29 08:33:00 Test Item Value Reference Range Interpretation Comments Glucose Lvl (test code = Glucose Lvl) 95 70-99 [facility]2016-10-29 08:33:00 Test Item Value Reference Range Interpretation Comments AGAP (test code = AGAP) 7.5 10.0-20.0 [facility]2016-10-29 08:33:00 Test Item Value Reference Range Interpretation Comments Sodium Lvl (test code = Sodium Lvl) 143 135-145 [facility]2016-10-29 08:33:00 Test Item Value Reference Range Interpretation Comments eGFR (test code = eGFR) 121 [facility]2016-10-29 08:33:00 Test Item Value Reference Range Interpretation Comments Creatinine Lvl (test code = Creatinine 0.67 0.50-1.40 Lvl) [facility]2016-10-29 08:33:00 Test Item Value Reference Range Interpretation Comments BUN (test code = BUN) 4 7- [facility]2016-10-29 08:33:00 Test Item Value Reference Range Interpretation Comments Chloride Lvl (test code = Chloride Lvl) 108 95-109 [facility]2016-10-29 08:33:00 Test Item Value Reference Range Interpretation Comments Potassium Lvl (test code = Potassium 3.5 3.5-5.1 Lvl) [facility]2016-10-29 08:33:00 Test Item Value Reference Range Interpretation Comments Calcium Lvl (test code = Calcium Lvl) 7.8 8.5-10.5 [facility]2016-10-29 08:33:00 Test Item Value Reference Range Interpretation Comments CO2 (test code = CO2) 31 24-32 [facility]2016-10-29 08:33:00 Test Item Value Reference Range Interpretation Comments Glucose Lvl (test code = Glucose Lvl) 95 70-99 [facility]2016-10-29 08:33:00 Test Item Value Reference Range Interpretation Comments AGAP (test code = AGAP) 7.5 10.0-20.0 [facility]2016-10-29 08:33:00 Test Item Value Reference Range Interpretation Comments Sodium Lvl (test code = Sodium Lvl) 143 135-145 [facility]2016-10-29 08:33:00 Test Item Value Reference Range Interpretation Comments eGFR (test code = eGFR) 121 [facility]2016-10-29 08:33:00 Test Item Value Reference Range Interpretation Comments Creatinine Lvl (test code = Creatinine 0.67 0.50-1.40 Lvl) [facility]2016-10-29 08:33:00 Test Item Value Reference Range Interpretation Comments BUN (test code = BUN) 4 7- [facility]2016-10-29 08:33:00 Test Item Value Reference Range Interpretation Comments Chloride Lvl (test code = Chloride Lvl) 108 95-109 [facility]2016-10-29 08:33:00 Test Item Value Reference Range Interpretation Comments Potassium Lvl (test code = Potassium 3.5 3.5-5.1 Lvl) [facility]2016-10-29 08:33:00 Test Item Value Reference Range Interpretation Comments Calcium Lvl (test code = Calcium Lvl) 7.8 8.5-10.5 [facility]2016-10-29 08:33:00 Test Item Value Reference Range Interpretation Comments CO2 (test code = CO2) 31 24-32 [facility]2016-10-29 08:33:00 Test Item Value Reference Range Interpretation Comments Glucose Lvl (test code = Glucose Lvl) 95 70-99 [facility]2016-10-29 08:33:00 Test Item Value Reference Range Interpretation Comments AGAP (test code = AGAP) 7.5 10.0-20.0 [facility]2016-10-29 08:33:00 Test Item Value Reference Range Interpretation Comments Sodium Lvl (test code = Sodium Lvl) 143 135-145 [facility]2016-10-29 08:33:00 Test Item Value Reference Range Interpretation Comments eGFR (test code = eGFR) 121 [facility]2016-10-29 08:33:00 Test Item Value Reference Range Interpretation Comments Creatinine Lvl (test code = Creatinine 0.67 0.50-1.40 Lvl) [facility]2016-10-29 08:33:00 Test Item Value Reference Range Interpretation Comments BUN (test code = BUN) 4 7- [facility]2016-10-29 08:33:00 Test Item Value Reference Range Interpretation Comments Chloride Lvl (test code = Chloride Lvl) 108 95-109 [facility]2016-10-29 08:33:00 Test Item Value Reference Range Interpretation Comments Potassium Lvl (test code = Potassium 3.5 3.5-5.1 Lvl) [facility]2016-10-29 08:33:00 Test Item Value Reference Range Interpretation Comments Calcium Lvl (test code = Calcium Lvl) 7.8 8.5-10.5 [facility]2016-10-29 08:33:00 Test Item Value Reference Range Interpretation Comments CO2 (test code = CO2) 31 24-32 [facility]2016-10-29 08:33:00 Test Item Value Reference Range Interpretation Comments Glucose Lvl (test code = Glucose Lvl) 95 70-99 [facility]2016-10-29 08:33:00 Test Item Value Reference Range Interpretation Comments AGAP (test code = AGAP) 7.5 10.0-20.0 [facility]2016-10-29 08:33:00 Test Item Value Reference Range Interpretation Comments Sodium Lvl (test code = Sodium Lvl) 143 135-145 [facility]2016-10-29 08:33:00 Test Item Value Reference Range Interpretation Comments eGFR (test code = eGFR) 121 [facility]2016-10-29 08:33:00 Test Item Value Reference Range Interpretation Comments Creatinine Lvl (test code = Creatinine 0.67 0.50-1.40 Lvl) [facility]2016-10-29 08:33:00 Test Item Value Reference Range Interpretation Comments BUN (test code = BUN) 4 7-22 [facility]2016-10-29 08:33:00 Test Item Value Reference Range Interpretation Comments Chloride Lvl (test code = Chloride Lvl) 108 95-109 [facility]2016-10-29 08:33:00 Test Item Value Reference Range Interpretation Comments Potassium Lvl (test code = Potassium 3.5 3.5-5.1 Lvl) [facility]2016-10-29 08:33:00 Test Item Value Reference Range Interpretation Comments Calcium Lvl (test code = Calcium Lvl) 7.8 8.5-10.5 [facility]2016-10-29 08:33:00 Test Item Value Reference Range Interpretation Comments CO2 (test code = CO2) 31 24-32 [facility]2016-10-29 08:33:00 Test Item Value Reference Range Interpretation Comments Glucose Lvl (test code = Glucose Lvl) 95 70-99 [facility]2016-10-29 08:33:00 Test Item Value Reference Range Interpretation Comments AGAP (test code = AGAP) 7.5 10.0-20.0 [facility]2016-10-29 08:33:00 Test Item Value Reference Range Interpretation Comments Sodium Lvl (test code = Sodium Lvl) 143 135-145 [facility]2016-10-29 08:33:00 Test Item Value Reference Range Interpretation Comments eGFR (test code = eGFR) 121 [facility]2016-10-29 08:33:00 Test Item Value Reference Range Interpretation Comments Creatinine Lvl (test code = Creatinine 0.67 0.50-1.40 Lvl) [facility]2016-10-29 08:33:00 Test Item Value Reference Range Interpretation Comments BUN (test code = BUN) 4 7-22 [facility]2016-10-29 08:33:00 Test Item Value Reference Range Interpretation Comments Chloride Lvl (test code = Chloride Lvl) 108 95-109 [facility]2016-10-29 08:33:00 Test Item Value Reference Range Interpretation Comments Potassium Lvl (test code = Potassium 3.5 3.5-5.1 Lvl) [facility]2016-10-29 08:33:00 Test Item Value Reference Range Interpretation Comments Calcium Lvl (test code = Calcium Lvl) 7.8 8.5-10.5 [facility]2016-10-29 08:33:00 Test Item Value Reference Range Interpretation Comments CO2 (test code = CO2) 31 24-32 [facility]2016-10-29 08:33:00 Test Item Value Reference Range Interpretation Comments Glucose Lvl (test code = Glucose Lvl) 95 70-99 [facility]2016-10-29 08:33:00 Test Item Value Reference Range Interpretation Comments AGAP (test code = AGAP) 7.5 10.0-20.0 [facility]2016-10-29 08:33:00 Test Item Value Reference Range Interpretation Comments Sodium Lvl (test code = Sodium Lvl) 143 135-145 [facility]2016-10-29 08:33:00 Test Item Value Reference Range Interpretation Comments eGFR (test code = eGFR) 121 [place] 597326-10-29 08:33:00 Test Item Value Reference Range Interpretation Comments Creatinine Lvl (test code = Creatinine 0.67 0.50-1.40 Lvl) [facility]2016-10-29 08:33:00 Test Item Value Reference Range Interpretation Comments BUN (test code = BUN) 4 7- [facility]2016-10-29 08:33:00 Test Item Value Reference Range Interpretation Comments Chloride Lvl (test code = Chloride Lvl) 108 95-109 [facility]2016-10-29 08:33:00 Test Item Value Reference Range Interpretation Comments Potassium Lvl (test code = Potassium 3.5 3.5-5.1 Lvl) [facility]2016-10-29 08:33:00 Test Item Value Reference Range Interpretation Comments Calcium Lvl (test code = Calcium Lvl) 7.8 8.5-10.5 [facility]2016-10-29 08:33:00 Test Item Value Reference Range Interpretation Comments CO2 (test code = CO2) 31 24-32 [facility]2016-10-29 08:33:00 Test Item Value Reference Range Interpretation Comments Glucose Lvl (test code = Glucose Lvl) 95 70-99 [facility]2016-10-29 08:33:00 Test Item Value Reference Range Interpretation Comments AGAP (test code = AGAP) 7.5 10.0-20.0 [facility]2016-10-29 08:33:00 Test Item Value Reference Range Interpretation Comments Sodium Lvl (test code = Sodium Lvl) 143 135-145 [facility]2016-10-29 08:33:00 Test Item Value Reference Range Interpretation Comments eGFR (test code = eGFR) 121 [facility]2016-10-29 08:33:00 Test Item Value Reference Range Interpretation Comments Creatinine Lvl (test code = Creatinine 0.67 0.50-1.40 Lvl) [facility]2016-10-29 08:33:00 Test Item Value Reference Range Interpretation Comments BUN (test code = BUN) 4 7- [facility]2016-10-29 08:33:00 Test Item Value Reference Range Interpretation Comments Chloride Lvl (test code = Chloride Lvl) 108 95-109 [facility]2016-10-29 08:33:00 Test Item Value Reference Range Interpretation Comments Potassium Lvl (test code = Potassium 3.5 3.5-5.1 Lvl) [facility]2016-10-29 08:33:00 Test Item Value Reference Range Interpretation Comments Calcium Lvl (test code = Calcium Lvl) 7.8 8.5-10.5 [facility]2016-10-29 08:33:00 Test Item Value Reference Range Interpretation Comments CO2 (test code = CO2) 31 24-32 [facility]2016-10-29 08:33:00 Test Item Value Reference Range Interpretation Comments Glucose Lvl (test code = Glucose Lvl) 95 70-99 [facility]2016-10-29 08:33:00 Test Item Value Reference Range Interpretation Comments AGAP (test code = AGAP) 7.5 10.0-20.0 [facility]2016-10-29 08:33:00 Test Item Value Reference Range Interpretation Comments Sodium Lvl (test code = Sodium Lvl) 143 135-145 [facility]2016-10-29 08:33:00 Test Item Value Reference Range Interpretation Comments eGFR (test code = eGFR) 121 [facility]2016-10-29 08:33:00 Test Item Value Reference Range Interpretation Comments Creatinine Lvl (test code = Creatinine 0.67 0.50-1.40 Lvl) [facility]2016-10-29 08:33:00 Test Item Value Reference Range Interpretation Comments BUN (test code = BUN) 4 7-22 [facility]2016-10-29 08:33:00 Test Item Value Reference Range Interpretation Comments Chloride Lvl (test code = Chloride Lvl) 108 95-109 [facility]2016-10-29 08:33:00 Test Item Value Reference Range Interpretation Comments eGFR (test code = eGFR) 121 [facility]2016-10-29 08:33:00 Test Item Value Reference Range Interpretation Comments Potassium Lvl (test code = Potassium 3.5 3.5-5.1 Lvl) [facility]2016-10-29 08:33:00 Test Item Value Reference Range Interpretation Comments Creatinine Lvl (test code = Creatinine 0.67 0.50-1.40 Lvl) [facility]2016-10-29 08:33:00 Test Item Value Reference Range Interpretation Comments Calcium Lvl (test code = Calcium Lvl) 7.8 8.5-10.5 [facility]2016-10-29 08:33:00 Test Item Value Reference Range Interpretation Comments BUN (test code = BUN) 4 7-22 [facility]2016-10-29 08:33:00 Test Item Value Reference Range Interpretation Comments CO2 (test code = CO2) 31 24-32 [facility]2016-10-29 08:33:00 Test Item Value Reference Range Interpretation Comments Chloride Lvl (test code = Chloride Lvl) 108 95-109 [facility]2016-10-29 08:33:00 Test Item Value Reference Range Interpretation Comments Glucose Lvl (test code = Glucose Lvl) 95 70-99 [facility]2016-10-29 08:33:00 Test Item Value Reference Range Interpretation Comments Potassium Lvl (test code = Potassium 3.5 3.5-5.1 Lvl) [facility]2016-10-29 08:33:00 Test Item Value Reference Range Interpretation Comments Calcium Lvl (test code = Calcium Lvl) 7.8 8.5-10.5 [facility]2016-10-29 08:33:00 Test Item Value Reference Range Interpretation Comments AGAP (test code = AGAP) 7.5 10.0-20.0 [facility]2016-10-29 08:33:00 Test Item Value Reference Range Interpretation Comments CO2 (test code = CO2) 31 24-32 [facility]2016-10-29 08:33:00 Test Item Value Reference Range Interpretation Comments Sodium Lvl (test code = Sodium Lvl) 143 135-145 [facility]2016-10-29 08:33:00 Test Item Value Reference Range Interpretation Comments Glucose Lvl (test code = Glucose Lvl) 95 70-99 [facility]2016-10-29 08:33:00 Test Item Value Reference Range Interpretation Comments AGAP (test code = AGAP) 7.5 10.0-20.0 [facility]2016-10-29 08:33:00 Test Item Value Reference Range Interpretation Comments Sodium Lvl (test code = Sodium Lvl) 143 135-145 [facility]2016-10-29 08:33:00 Test Item Value Reference Range Interpretation Comments eGFR (test code = eGFR) 121 [facility]2016-10-29 08:33:00 Test Item Value Reference Range Interpretation Comments Creatinine Lvl (test code = Creatinine 0.67 0.50-1.40 Lvl) [facility]2016-10-29 08:33:00 Test Item Value Reference Range Interpretation Comments BUN (test code = BUN) 09 17- [facility]2016-10-29 08:33:00 Test Item Value Reference Range Interpretation Comments Chloride Lvl (test code = Chloride Lvl) 108 95-109 [facility]2016-10-29 08:33:00 Test Item Value Reference Range Interpretation Comments Potassium Lvl (test code = Potassium 3.5 3.5-5.1 Lvl) [facility]2016-10-29 08:33:00 Test Item Value Reference Range Interpretation Comments Calcium Lvl (test code = Calcium Lvl) 7.8 8.5-10.5 [facility]2016-10-29 08:33:00 Test Item Value Reference Range Interpretation Comments CO2 (test code = CO2) 31 24-32 [facility]2016-10-29 08:33:00 Test Item Value Reference Range Interpretation Comments Glucose Lvl (test code = Glucose Lvl) 95 70-99 [facility]2016-10-29 08:33:00 Test Item Value Reference Range Interpretation Comments AGAP (test code = AGAP) 7.5 10.0-20.0 [facility]2016-10-29 08:33:00 Test Item Value Reference Range Interpretation Comments Sodium Lvl (test code = Sodium Lvl) 143 135-145 [facility]2016-10-29 08:33:00 Test Item Value Reference Range Interpretation Comments eGFR (test code = eGFR) 121 [facility]2016-10-29 08:33:00 Test Item Value Reference Range Interpretation Comments Creatinine Lvl (test code = Creatinine 0.67 0.50-1.40 Lvl) [facility]2016-10-29 08:33:00 Test Item Value Reference Range Interpretation Comments BUN (test code = BUN) 4 7- [facility]2016-10-29 08:33:00 Test Item Value Reference Range Interpretation Comments Chloride Lvl (test code = Chloride Lvl) 108 95-109 [facility]2016-10-29 08:33:00 Test Item Value Reference Range Interpretation Comments Potassium Lvl (test code = Potassium 3.5 3.5-5.1 Lvl) [facility]2016-10-29 08:33:00 Test Item Value Reference Range Interpretation Comments Calcium Lvl (test code = Calcium Lvl) 7.8 8.5-10.5 [facility]2016-10-29 08:33:00 Test Item Value Reference Range Interpretation Comments CO2 (test code = CO2) 31 24-32 [facility]2016-10-29 08:33:00 Test Item Value Reference Range Interpretation Comments Glucose Lvl (test code = Glucose Lvl) 95 70-99 [facility]2016-10-29 08:33:00 Test Item Value Reference Range Interpretation Comments AGAP (test code = AGAP) 7.5 10.0-20.0 [facility]2016-10-29 08:33:00 Test Item Value Reference Range Interpretation Comments Sodium Lvl (test code = Sodium Lvl) 143 135-145 [facility]2016-10-29 08:33:00 Test Item Value Reference Range Interpretation Comments eGFR (test code = eGFR) 121 [facility]2016-10-29 08:33:00 Test Item Value Reference Range Interpretation Comments Creatinine Lvl (test code = Creatinine 0.67 0.50-1.40 Lvl) [facility]2016-10-29 08:33:00 Test Item Value Reference Range Interpretation Comments BUN (test code = BUN) 4 7-22 [facility]2016-10-29 08:33:00 Test Item Value Reference Range Interpretation Comments Chloride Lvl (test code = Chloride Lvl) 108 95-109 [facility]2016-10-29 08:33:00 Test Item Value Reference Range Interpretation Comments Potassium Lvl (test code = Potassium 3.5 3.5-5.1 Lvl) [facility]2016-10-29 08:33:00 Test Item Value Reference Range Interpretation Comments Calcium Lvl (test code = Calcium Lvl) 7.8 8.5-10.5 [facility]2016-10-29 08:33:00 Test Item Value Reference Range Interpretation Comments CO2 (test code = CO2) 31 24-32 [facility]2016-10-29 08:33:00 Test Item Value Reference Range Interpretation Comments Glucose Lvl (test code = Glucose Lvl) 95 70-99 [facility]2016-10-29 08:33:00 Test Item Value Reference Range Interpretation Comments AGAP (test code = AGAP) 7.5 10.0-20.0 [facility]2016-10-29 08:33:00 Test Item Value Reference Range Interpretation Comments Sodium Lvl (test code = Sodium Lvl) 143 135-145 [facility]2016-10-29 08:33:00 Test Item Value Reference Range Interpretation Comments eGFR (test code = eGFR) 121 [facility]2016-10-29 08:33:00 Test Item Value Reference Range Interpretation Comments Creatinine Lvl (test code = Creatinine 0.67 0.50-1.40 Lvl) [facility]2016-10-29 08:33:00 Test Item Value Reference Range Interpretation Comments BUN (test code = BUN) 4 7-22 [facility]2016-10-29 08:33:00 Test Item Value Reference Range Interpretation Comments Chloride Lvl (test code = Chloride Lvl) 108 95-109 [facility]2016-10-29 08:33:00 Test Item Value Reference Range Interpretation Comments Potassium Lvl (test code = Potassium 3.5 3.5-5.1 Lvl) [facility]2016-10-29 08:33:00 Test Item Value Reference Range Interpretation Comments Calcium Lvl (test code = Calcium Lvl) 7.8 8.5-10.5 [facility]2016-10-29 08:33:00 Test Item Value Reference Range Interpretation Comments CO2 (test code = CO2) 31 24-32 [facility]2016-10-29 08:33:00 Test Item Value Reference Range Interpretation Comments Glucose Lvl (test code = Glucose Lvl) 95 70-99 [facility]2016-10-29 08:33:00 Test Item Value Reference Range Interpretation Comments AGAP (test code = AGAP) 7.5 10.0-20.0 [facility]2016-10-29 08:33:00 Test Item Value Reference Range Interpretation Comments Sodium Lvl (test code = Sodium Lvl) 143 135-145 [facility]2016-10-29 08:33:00 Test Item Value Reference Range Interpretation Comments eGFR (test code = eGFR) 121 [place] 597326-10-29 08:33:00 Test Item Value Reference Range Interpretation Comments Creatinine Lvl (test code = Creatinine 0.67 0.50-1.40 Lvl) [facility]2016-10-29 08:33:00 Test Item Value Reference Range Interpretation Comments BUN (test code = BUN) 4 7-22 [facility]2016-10-29 08:33:00 Test Item Value Reference Range Interpretation Comments Chloride Lvl (test code = Chloride Lvl) 108 95-109 [facility]2016-10-29 08:33:00 Test Item Value Reference Range Interpretation Comments Potassium Lvl (test code = Potassium 3.5 3.5-5.1 Lvl) [facility]2016-10-29 08:33:00 Test Item Value Reference Range Interpretation Comments Calcium Lvl (test code = Calcium Lvl) 7.8 8.5-10.5 [facility]2016-10-29 08:33:00 Test Item Value Reference Range Interpretation Comments CO2 (test code = CO2) 31 24-32 [facility]2016-10-29 08:33:00 Test Item Value Reference Range Interpretation Comments Glucose Lvl (test code = Glucose Lvl) 95 70-99 [facility]2016-10-29 08:33:00 Test Item Value Reference Range Interpretation Comments AGAP (test code = AGAP) 7.5 10.0-20.0 [facility]2016-10-29 08:33:00 Test Item Value Reference Range Interpretation Comments Sodium Lvl (test code = Sodium Lvl) 143 135-145 [facility]2016-10-28 09:19:00 Test Item Value Reference Range Interpretation Comments Procalcitonin Lvl <0.05 ng/mL See_Comment [Automate d message] (test code = The system whic h Procalcitonin Lvl) generated this result transmit daphne reference range : <=0.10. The reference range was not used to interpret this result as normal/abnormal . [facility]PrcgrvmFXFFDHFLOV3320-25-55 09:19:00 Test Item Value Reference Range Interpretation Comments MPV (test code = MPV) 8.6 7.4-10.4 [facility] HospitalAxnkjpxTWWEJTPFFJ6301-35-60 09:19:00 Test Item Value Reference Range Interpretation Comments Platelet (test code = Platelet) 431 133-450 [facility] HospitalGujprhdHVSGCCDYJO8132-12-31 09:19:00 Test Item Value Reference Range Interpretation Comments WBC X 10x3 (test code = WBC X 10x3) 11.5 3.7-10.4 [facility] HospitalQlwltjnQYQCJZWSXQ6457-27-75 09:19:00 Test Item Value Reference Range Interpretation Comments RBC X 10x6 (test code = RBC X 10x6) 4.10 4.20-5.40 [facility] HospitalOkjfahdMVTSXZNNXN8090-23-49 09:19:00 Test Item Value Reference Range Interpretation Comments Hgb (test code = Hgb) 11.1 12.0-16.0 [facility] HospitalQrvoxjwQTKZVAMCPE8472-99-37 09:19:00 Test Item Value Reference Range Interpretation Comments MCH (test code = MCH) 27.0 pg 27.0-31.0 [facility] HospitalRijmqxoCNNHWVWDWN8139-49-86 09:19:00 Test Item Value Reference Range Interpretation Comments MCV (test code = MCV) 79.8 80.0-98.0 [facility] HospitalVovambtGWZQFYIRMU1850-94-39 09:19:00 Test Item Value Reference Range Interpretation Comments Hct (test code = Hct) 32.7 36.0-48.0 [facility] HospitalWkhjdksKCHWMRTKHZ9182-61-51 09:19:00 Test Item Value Reference Range Interpretation Comments RDW (test code = RDW) 17.7 11.5-14.5 [facility] HospitalSglueykHKOGXWUTNP0743-84-63 09:19:00 Test Item Value Reference Range Interpretation Comments MCHC (test code = MCHC) 33.9 32.0-36.0 [facility] HospitalSwpwltqDPYRLBIYGC5546-50-26 09:19:00 Test Item Value Reference Range Interpretation Comments Segs (test code = Segs) 68.8 45.0-75.0 [facility] HospitalNpaerlbKGJULSRXSK7283-87-66 09:19:00 Test Item Value Reference Range Interpretation Comments Basophils (test code = 0.4 See_Comment [Aut omated message] The Basophils) system which ge nerated this result tra nsmitted reference range : <=1.0. The reference r bertha was not used to int erpret this result as normal/abnormal . [facility] HospitalJifllmwTSCZQURZGS0538-46-51 09:19:00 Test Item Value Reference Range Interpretation Comments Lymphocytes # (test code = Lymphocytes 2.5 1.0-5.5 #) [facility] HospitalXknfyzwJQWSSHDNES8020-69-60 09:19:00 Test Item Value Reference Range Interpretation Comments Segs-Bands # (test code = Segs-Bands #) 7.9 1.5-8.1 [facility] HospitalVtdxnfvSPORRQJGZB8776-51-13 09:19:00 Test Item Value Reference Range Interpretation Comments Eosinophils # (test code 0.1 See_Comment [A utomated message] The = Eosinophils #) system whic h generated this result tra nsmitted reference range : <=0.5. The reference r bertha was not used to int erpret this result as normal/abnormal . [facility] HospitalLviuvbjACFJUTWLJE2053-90-20 09:19:00 Test Item Value Reference Range Interpretation Comments Monocytes # (test code 0.9 See_Comment [Aut omated message] The = Monocytes #) system which generated this result tra nsmitted reference range : <=0.8. The reference r bertha was not used to int erpret this result as normal/abnormal . [facility] HospitalXludeclVNDMQVTGNZ3533-09-18 09:19:00 Test Item Value Reference Range Interpretation Comments Eosinophils (test code = 1.1 See_Comment [A utomated message] The Eosinophils) system which ge nerated this result tra nsmitted reference range : <=4.0. The reference r bertha was not used to int erpret this result as normal/abnormal . [facility] HospitalAfebctaKEHENWBZXS4736-70-40 09:19:00 Test Item Value Reference Range Interpretation Comments Monocytes (test code = Monocytes) 8.1 2.0-12.0 [facility] HospitalGtqhrlpGXOPRARRBA2948-92-12 09:19:00 Test Item Value Reference Range Interpretation Comments Lymphocytes (test code = Lymphocytes) 21.6 20.0-40.0 [facility]2016-10-28 09:19:00 Test Item Value Reference Range Interpretation Comments Procalcitonin Lvl <0.05 ng/mL See_Comment [Automate d message] (test code = The system whic h Procalcitonin Lvl) generated this result transmit daphne reference range : <=0.10. The reference range was not used to interpret this result as normal/abnormal . [facility] HospitalLdoptxaEWXVGHMAZJ0766-35-34 09:19:00 Test Item Value Reference Range Interpretation Comments MPV (test code = MPV) 8.6 7.4-10.4 [facility] HospitalPydwrrzJTFWKLTDNK4220-63-03 09:19:00 Test Item Value Reference Range Interpretation Comments Platelet (test code = Platelet) 431 133-450 [facility] HospitalQtohbvmVALIEFSEBY1473-75-54 09:19:00 Test Item Value Reference Range Interpretation Comments WBC X 10x3 (test code = WBC X 10x3) 11.5 3.7-10.4 [facility] HospitalFsxfexbJPAQTHQIGZ5719-61-07 09:19:00 Test Item Value Reference Range Interpretation Comments RBC X 10x6 (test code = RBC X 10x6) 4.10 4.20-5.40 [facility] HospitalLyavtcoNQCSQJXBVY8993-31-54 09:19:00 Test Item Value Reference Range Interpretation Comments Hgb (test code = Hgb) 11.1 12.0-16.0 [facility] HospitalLsdnedwZZOBWWKWYL9163-86-30 09:19:00 Test Item Value Reference Range Interpretation Comments MCH (test code = MCH) 27.0 pg 27.0-31.0 [facility] HospitalEnlswhxZCOAJYUKJN3794-67-90 09:19:00 Test Item Value Reference Range Interpretation Comments MCV (test code = MCV) 79.8 80.0-98.0 [facility] HospitalLzunbxlBGEULZCDHJ2119-09-60 09:19:00 Test Item Value Reference Range Interpretation Comments Hct (test code = Hct) 32.7 36.0-48.0 [facility] HospitalHymyiuyXKGMRCJNNY8561-35-94 09:19:00 Test Item Value Reference Range Interpretation Comments RDW (test code = RDW) 17.7 11.5-14.5 [facility] HospitalCqadibyEPATTCZKTC3457-70-87 09:19:00 Test Item Value Reference Range Interpretation Comments MCHC (test code = MCHC) 33.9 32.0-36.0 [facility] HospitalTnwktgsPHQPULKKKC5299-42-33 09:19:00 Test Item Value Reference Range Interpretation Comments Segs (test code = Segs) 68.8 45.0-75.0 [facility] HospitalWxvbjbrXDOWDCZQBC6095-65-87 09:19:00 Test Item Value Reference Range Interpretation Comments Basophils (test code = 0.4 See_Comment [Aut omated message] The Basophils) system which ge nerated this result tra nsmitted reference range : <=1.0. The reference r bertha was not used to int erpret this result as normal/abnormal . [facility] HospitalNvfphujOZLVPLUBYP4185-07-89 09:19:00 Test Item Value Reference Range Interpretation Comments Lymphocytes # (test code = Lymphocytes 2.5 1.0-5.5 #) [facility] HospitalVhfyopkHSKILDJZNB3482-19-19 09:19:00 Test Item Value Reference Range Interpretation Comments Segs-Bands # (test code = Segs-Bands #) 7.9 1.5-8.1 [facility] HospitalTjhtpnfSUUSHNJVOV3526-79-68 09:19:00 Test Item Value Reference Range Interpretation Comments Eosinophils # (test code 0.1 See_Comment [A utomated message] The = Eosinophils #) system [facility] generated this result tra nsmitted reference range : <=0.5. The reference r bertha was not used to int erpret this result as normal/abnormal . [facility] HospitalDipjasiHQITUNNVUU6155-89-67 09:19:00 Test Item Value Reference Range Interpretation Comments Monocytes # (test code 0.9 See_Comment [Aut omated message] The = Monocytes #) system which generated this result tra nsmitted reference range : <=0.8. The reference r bertha was not used to int erpret this result as normal/abnormal . [facility] HospitalUchywyuKCPDRDKXYC1795-05-34 09:19:00 Test Item Value Reference Range Interpretation Comments Eosinophils (test code = 1.1 See_Comment [A utomated message] The Eosinophils) system which ge nerated this result tra nsmitted reference range : <=4.0. The reference r bertha was not used to int erpret this result as normal/abnormal . [facility] HospitalTdwjywsKINHMFSTKU2024-94-70 09:19:00 Test Item Value Reference Range Interpretation Comments Monocytes (test code = Monocytes) 8.1 2.0-12.0 [facility] HospitalAqaybuaSLNDSIXCAP3039-79-36 09:19:00 Test Item Value Reference Range Interpretation Comments Lymphocytes (test code = Lymphocytes) 21.6 20.0-40.0 [facility]2016-10-28 09:19:00 Test Item Value Reference Range Interpretation Comments Procalcitonin Lvl <0.05 ng/mL See_Comment [Automate d message] (test code = The system whic h Procalcitonin Lvl) generated this result transmit daphne reference range : <=0.10. The reference range was not used to interpret this result as normal/abnormal . [facility] HospitalWnaicnnPCFBJRADJD8066-93-01 09:19:00 Test Item Value Reference Range Interpretation Comments MPV (test code = MPV) 8.6 7.4-10.4 [facility] HospitalImqvkiaVZXBNYYENG0991-76-73 09:19:00 Test Item Value Reference Range Interpretation Comments Platelet (test code = Platelet) 431 133-450 [facility] HospitalMvdispxKAUTLZABET1706-49-97 09:19:00 Test Item Value Reference Range Interpretation Comments WBC X 10x3 (test code = WBC X 10x3) 11.5 3.7-10.4 [facility] HospitalGzeezloFMRKPFRXKT8679-59-12 09:19:00 Test Item Value Reference Range Interpretation Comments RBC X 10x6 (test code = RBC X 10x6) 4.10 4.20-5.40 [facility] HospitalZdumnxwCESSJBYUPU2562-96-29 09:19:00 Test Item Value Reference Range Interpretation Comments Hgb (test code = Hgb) 11.1 12.0-16.0 [facility] HospitalMrbnrtpCOORJXRDNY3919-86-13 09:19:00 Test Item Value Reference Range Interpretation Comments MCH (test code = MCH) 27.0 pg 27.0-31.0 [facility] HospitalLjmkavbPORCMYINNV2930-90-23 09:19:00 Test Item Value Reference Range Interpretation Comments MCV (test code = MCV) 79.8 80.0-98.0 [facility] HospitalBotozimDAJPTDKVLV1969-56-67 09:19:00 Test Item Value Reference Range Interpretation Comments Hct (test code = Hct) 32.7 36.0-48.0 [facility] HospitalPfwgfreIZXZIIABNS2103-57-11 09:19:00 Test Item Value Reference Range Interpretation Comments RDW (test code = RDW) 17.7 11.5-14.5 [facility] HospitalJymhqblNGKOEQKGAR0172-62-34 09:19:00 Test Item Value Reference Range Interpretation Comments MCHC (test code = MCHC) 33.9 32.0-36.0 [facility] HospitalLvuxhzfLCNPAHIKKF1723-77-34 09:19:00 Test Item Value Reference Range Interpretation Comments Segs (test code = Segs) 68.8 45.0-75.0 [facility] HospitalClvfoenSAYNDPUQMX6904-70-97 09:19:00 Test Item Value Reference Range Interpretation Comments Basophils (test code = 0.4 See_Comment [Aut omated message] The Basophils) system which ge nerated this result tra nsmitted reference range : <=1.0. The reference r bertha was not used to int erpret this result as normal/abnormal . [facility] HospitalCbieiqqVTWAAVEWCO8349-67-08 09:19:00 Test Item Value Reference Range Interpretation Comments Lymphocytes # (test code = Lymphocytes 2.5 1.0-5.5 #) [facility] HospitalMpseltaWFNMDTAAIM3205-38-98 09:19:00 Test Item Value Reference Range Interpretation Comments Segs-Bands # (test code = Segs-Bands #) 7.9 1.5-8.1 [facility] HospitalLgowyutEAAKYAHWXU6441-89-22 09:19:00 Test Item Value Reference Range Interpretation Comments Eosinophils # (test code 0.1 See_Comment [A utomated message] The = Eosinophils #) system [facility] h generated this result tra nsmitted reference range : <=0.5. The reference r bertha was not used to int erpret this result as normal/abnormal . [facility] HospitalWezxolrYWTKEBBARP7402-95-61 09:19:00 Test Item Value Reference Range Interpretation Comments Monocytes # (test code 0.9 See_Comment [Aut omated message] The = Monocytes #) system which generated this result tra nsmitted reference range : <=0.8. The reference r bertha was not used to int erpret this result as normal/abnormal . [facility] HospitalVcujvuxJJWEOSBEAV7372-47-10 09:19:00 Test Item Value Reference Range Interpretation Comments Eosinophils (test code = 1.1 See_Comment [A utomated message] The Eosinophils) system which ge nerated this result tra nsmitted reference range : <=4.0. The reference r bertha was not used to int erpret this result as normal/abnormal . [facility] HospitalWgsmirpSNPXLWKJSC9534-14-76 09:19:00 Test Item Value Reference Range Interpretation Comments Monocytes (test code = Monocytes) 8.1 2.0-12.0 [facility] HospitalFimxfbnXJHIDKTVRE9473-68-39 09:19:00 Test Item Value Reference Range Interpretation Comments Lymphocytes (test code = Lymphocytes) 21.6 20.0-40.0 [facility]2016-10-28 09:19:00 Test Item Value Reference Range Interpretation Comments Procalcitonin Lvl <0.05 ng/mL See_Comment [Automate d message] (test code = The system whic h Procalcitonin Lvl) generated this result transmit daphne reference range : <=0.10. The reference range was not used to interpret this result as normal/abnormal . [facility] HospitalTzszmdvDOWAIOUTQV7649-84-19 09:19:00 Test Item Value Reference Range Interpretation Comments MPV (test code = MPV) 8.6 7.4-10.4 [facility] HospitalCjtioneMVJCKIJMRZ2146-22-04 09:19:00 Test Item Value Reference Range Interpretation Comments Platelet (test code = Platelet) 431 133-450 [facility] HospitalMxpgvciGOZIDVJSFK1500-21-66 09:19:00 Test Item Value Reference Range Interpretation Comments WBC X 10x3 (test code = WBC X 10x3) 11.5 3.7-10.4 [facility] HospitalZwpztszIANRNMBHOR5044-53-19 09:19:00 Test Item Value Reference Range Interpretation Comments RBC X 10x6 (test code = RBC X 10x6) 4.10 4.20-5.40 [facility] HospitalLareybtHCCGCXETKA4482-57-22 09:19:00 Test Item Value Reference Range Interpretation Comments Hgb (test code = Hgb) 11.1 12.0-16.0 [facility] HospitalVixraqeJUZRGTQUNY8421-71-01 09:19:00 Test Item Value Reference Range Interpretation Comments MCH (test code = MCH) 27.0 pg 27.0-31.0 [facility] HospitalIlqnevfSOAULQQHVN8552-92-15 09:19:00 Test Item Value Reference Range Interpretation Comments MCV (test code = MCV) 79.8 80.0-98.0 [facility] HospitalHvdjxviICQQZYGMCZ4960-73-01 09:19:00 Test Item Value Reference Range Interpretation Comments Hct (test code = Hct) 32.7 36.0-48.0 [facility] HospitalKmskfbuPUBTIIQFZI4231-97-56 09:19:00 Test Item Value Reference Range Interpretation Comments RDW (test code = RDW) 17.7 11.5-14.5 [facility] HospitalVavfvyjYZJBSCLPJA8659-08-38 09:19:00 Test Item Value Reference Range Interpretation Comments MCHC (test code = MCHC) 33.9 32.0-36.0 [facility] HospitalMdhncbvKKMVUNUEGP0255-33-98 09:19:00 Test Item Value Reference Range Interpretation Comments Segs (test code = Segs) 68.8 45.0-75.0 [facility] HospitalUrhkhayXXOIQDUXAW1618-55-00 09:19:00 Test Item Value Reference Range Interpretation Comments Basophils (test code = 0.4 See_Comment [Aut omated message] The Basophils) system which ge nerated this result tra nsmitted reference range : <=1.0. The reference r bertha was not used to int erpret this result as normal/abnormal . [facility] HospitalCfcitrcCKUXKAQWAY4740-08-08 09:19:00 Test Item Value Reference Range Interpretation Comments Lymphocytes # (test code = Lymphocytes 2.5 1.0-5.5 #) [facility] HospitalRdankxgYINUSPKLEE8701-36-73 09:19:00 Test Item Value Reference Range Interpretation Comments Segs-Bands # (test code = Segs-Bands #) 7.9 1.5-8.1 [facility] HospitalKktfuduUIJQMDUHCM8084-78-32 09:19:00 Test Item Value Reference Range Interpretation Comments Eosinophils # (test code 0.1 See_Comment [A utomated message] The = Eosinophils #) system whic h generated this result tra nsmitted reference range : <=0.5. The reference r bertha was not used to int erpret this result as normal/abnormal . [facility] HospitalTovqgzlUZVOTIGHNJ2342-33-85 09:19:00 Test Item Value Reference Range Interpretation Comments Monocytes # (test code 0.9 See_Comment [Aut omated message] The = Monocytes #) system which generated this result tra nsmitted reference range : <=0.8. The reference r bertha was not used to int erpret this result as normal/abnormal . [facility] HospitalHgkozebRWEDRBSBKU9396-14-97 09:19:00 Test Item Value Reference Range Interpretation Comments Eosinophils (test code = 1.1 See_Comment [A utomated message] The Eosinophils) system which ge nerated this result tra nsmitted reference range : <=4.0. The reference r bertha was not used to int erpret this result as normal/abnormal . [facility] HospitalPcgvrhhEVUVMAKIYB9166-42-99 09:19:00 Test Item Value Reference Range Interpretation Comments Monocytes (test code = Monocytes) 8.1 2.0-12.0 [facility] HospitalWolgiojFSVNHMVZYX6985-20-39 09:19:00 Test Item Value Reference Range Interpretation Comments Lymphocytes (test code = Lymphocytes) 21.6 20.0-40.0 [facility]2016-10-28 09:19:00 Test Item Value Reference Range Interpretation Comments Procalcitonin Lvl <0.05 ng/mL See_Comment [Automate d message] (test code = The system whic h Procalcitonin Lvl) generated this result transmit daphne reference range : <=0.10. The reference range was not used to interpret this result as normal/abnormal . [facility] HospitalFfmenvsGGDQVKBSHQ5442-68-20 09:19:00 Test Item Value Reference Range Interpretation Comments MPV (test code = MPV) 8.6 7.4-10.4 [facility] HospitalWofjxefNQIBJBJAWT0240-67-32 09:19:00 Test Item Value Reference Range Interpretation Comments Platelet (test code = Platelet) 431 133-450 [facility] HospitalFitjpowOWDQOBUAJM4425-39-11 09:19:00 Test Item Value Reference Range Interpretation Comments WBC X 10x3 (test code = WBC X 10x3) 11.5 3.7-10.4 [facility] HospitalNnhxdvlGKTYTSFFOL0598-15-58 09:19:00 Test Item Value Reference Range Interpretation Comments RBC X 10x6 (test code = RBC X 10x6) 4.10 4.20-5.40 [facility] HospitalNtcmhprWMHEOMIFTP9398-76-01 09:19:00 Test Item Value Reference Range Interpretation Comments Hgb (test code = Hgb) 11.1 12.0-16.0 [facility] HospitalMnfehwnXZVEERJYDB0612-31-73 09:19:00 Test Item Value Reference Range Interpretation Comments MCH (test code = MCH) 27.0 pg 27.0-31.0 [facility] HospitalTshnflsILAKEHANWM7546-36-29 09:19:00 Test Item Value Reference Range Interpretation Comments MCV (test code = MCV) 79.8 80.0-98.0 [facility] HospitalNkyssajLHRJMIKMAP5344-06-30 09:19:00 Test Item Value Reference Range Interpretation Comments Hct (test code = Hct) 32.7 36.0-48.0 [facility] HospitalHguhdwwRMRUCNGDQT3490-10-53 09:19:00 Test Item Value Reference Range Interpretation Comments RDW (test code = RDW) 17.7 11.5-14.5 [facility] HospitalFfsdfgjVFZCYTBQZO9325-85-68 09:19:00 Test Item Value Reference Range Interpretation Comments MCHC (test code = MCHC) 33.9 32.0-36.0 [facility] HospitalZvxklbyMUBLGKZABG6649-83-08 09:19:00 Test Item Value Reference Range Interpretation Comments Segs (test code = Segs) 68.8 45.0-75.0 [facility] HospitalDixplbgJZUZTEKMQZ7653-23-30 09:19:00 Test Item Value Reference Range Interpretation Comments Basophils (test code = 0.4 See_Comment [Aut omated message] The Basophils) system which ge nerated this result tra nsmitted reference range : <=1.0. The reference r bertha was not used to int erpret this result as normal/abnormal . [facility] HospitalLuufrizCYZHILSHWB7005-28-59 09:19:00 Test Item Value Reference Range Interpretation Comments Lymphocytes # (test code = Lymphocytes 2.5 1.0-5.5 #) [facility] HospitalVlseqxoUIVYPGVKOW3902-27-21 09:19:00 Test Item Value Reference Range Interpretation Comments Segs-Bands # (test code = Segs-Bands #) 7.9 1.5-8.1 [facility] HospitalEkyrvymCYJRIVGTAR3434-02-38 09:19:00 Test Item Value Reference Range Interpretation Comments Eosinophils # (test code 0.1 See_Comment [A utomated message] The = Eosinophils #) system whic h generated this result tra nsmitted reference range : <=0.5. The reference r bertha was not used to int erpret this result as normal/abnormal . [facility] HospitalNytpkcwRENYOJNLWD4003-05-84 09:19:00 Test Item Value Reference Range Interpretation Comments Monocytes # (test code 0.9 See_Comment [Aut omated message] The = Monocytes #) system which generated this result tra nsmitted reference range : <=0.8. The reference r bertha was not used to int erpret this result as normal/abnormal . [facility] HospitalEyhwixzYDQGRMFRBY6543-67-88 09:19:00 Test Item Value Reference Range Interpretation Comments Eosinophils (test code = 1.1 See_Comment [A utomated message] The Eosinophils) system which ge nerated this result tra nsmitted reference range : <=4.0. The reference r bertha was not used to int erpret this result as normal/abnormal . [facility] HospitalSdxhueqTAEVGQOQME9078-96-32 09:19:00 Test Item Value Reference Range Interpretation Comments Monocytes (test code = Monocytes) 8.1 2.0-12.0 [facility] HospitalBuytigdTTBGQFESNJ5377-23-32 09:19:00 Test Item Value Reference Range Interpretation Comments Lymphocytes (test code = Lymphocytes) 21.6 20.0-40.0 [facility]2016-10-28 09:19:00 Test Item Value Reference Range Interpretation Comments Procalcitonin Lvl <0.05 ng/mL See_Comment [Automate d message] (test code = The system whic h Procalcitonin Lvl) generated this result transmit daphne reference range : <=0.10. The reference range was not used to interpret this result as normal/abnormal . [facility] HospitalHevyosoDYJRFBXBYG5318-78-36 09:19:00 Test Item Value Reference Range Interpretation Comments MPV (test code = MPV) 8.6 7.4-10.4 [facility] HospitalYowwryzZCQGOFWUZN3027-84-07 09:19:00 Test Item Value Reference Range Interpretation Comments Platelet (test code = Platelet) 431 133-450 [facility] HospitalDlxhgeyKYQCYXHPVT9908-10-46 09:19:00 Test Item Value Reference Range Interpretation Comments WBC X 10x3 (test code = WBC X 10x3) 11.5 3.7-10.4 [facility] HospitalLkjpykyKGRSFKBSOI4118-35-26 09:19:00 Test Item Value Reference Range Interpretation Comments RBC X 10x6 (test code = RBC X 10x6) 4.10 4.20-5.40 [facility] HospitalOcswfemYYOXOHTWHW2731-44-39 09:19:00 Test Item Value Reference Range Interpretation Comments Hgb (test code = Hgb) 11.1 12.0-16.0 [facility] HospitalEwjbhjsYRFBKEITOH8573-48-58 09:19:00 Test Item Value Reference Range Interpretation Comments MCH (test code = MCH) 27.0 pg 27.0-31.0 [facility] HospitalBwgvnypGSNUSEHCBB1352-58-17 09:19:00 Test Item Value Reference Range Interpretation Comments MCV (test code = MCV) 79.8 80.0-98.0 [facility] HospitalFoermzqSRRQDLABTQ3490-14-48 09:19:00 Test Item Value Reference Range Interpretation Comments Hct (test code = Hct) 32.7 36.0-48.0 [facility] HospitalQfwdbrpELWAFGOYFH5291-13-12 09:19:00 Test Item Value Reference Range Interpretation Comments RDW (test code = RDW) 17.7 11.5-14.5 [facility] HospitalMpqdrdeLQJVTUEKUW8300-42-86 09:19:00 Test Item Value Reference Range Interpretation Comments MCHC (test code = MCHC) 33.9 32.0-36.0 [facility] HospitalSjltcinJXHTYIZGYU9379-98-50 09:19:00 Test Item Value Reference Range Interpretation Comments Segs (test code = Segs) 68.8 45.0-75.0 [facility] HospitalCqfkrpnBQTLKSRWJR7366-70-43 09:19:00 Test Item Value Reference Range Interpretation Comments Basophils (test code = 0.4 See_Comment [Aut omated message] The Basophils) system which ge nerated this result tra nsmitted reference range : <=1.0. The reference r bertha was not used to int erpret this result as normal/abnormal . [facility] HospitalVvfjtvqUISFNXVJTE5798-23-62 09:19:00 Test Item Value Reference Range Interpretation Comments Lymphocytes # (test code = Lymphocytes 2.5 1.0-5.5 #) [facility] HospitalXpwxbpxFQXHGHPKZR1501-83-85 09:19:00 Test Item Value Reference Range Interpretation Comments Segs-Bands # (test code = Segs-Bands #) 7.9 1.5-8.1 [facility] HospitalDexsteqAIUQDEBJXK9375-28-07 09:19:00 Test Item Value Reference Range Interpretation Comments Eosinophils # (test code 0.1 See_Comment [A utomated message] The = Eosinophils #) system whic h generated this result tra nsmitted reference range : <=0.5. The reference r bertha was not used to int erpret this result as normal/abnormal . [facility] HospitalHwaoyfvLBZYTFTHKI1953-51-63 09:19:00 Test Item Value Reference Range Interpretation Comments Monocytes # (test code 0.9 See_Comment [Aut omated message] The = Monocytes #) system which generated this result tra nsmitted reference range : <=0.8. The reference r bertha was not used to int erpret this result as normal/abnormal . [facility] HospitalCgphpojWFCVXKJSDY3504-21-36 09:19:00 Test Item Value Reference Range Interpretation Comments Eosinophils (test code = 1.1 See_Comment [A utomated message] The Eosinophils) system which ge nerated this result tra nsmitted reference range : <=4.0. The reference r bertha was not used to int erpret this result as normal/abnormal . [facility] HospitalInzujizQWCFFBEAVU6801-52-53 09:19:00 Test Item Value Reference Range Interpretation Comments Monocytes (test code = Monocytes) 8.1 2.0-12.0 [facility] HospitalWfrxpwdGAZPTLMNKK8622-13-20 09:19:00 Test Item Value Reference Range Interpretation Comments Lymphocytes (test code = Lymphocytes) 21.6 20.0-40.0 [facility]2016-10-28 09:19:00 Test Item Value Reference Range Interpretation Comments Procalcitonin Lvl <0.05 ng/mL See_Comment [Automate d message] (test code = The system whic h Procalcitonin Lvl) generated this result transmit daphne reference range : <=0.10. The reference range was not used to interpret this result as normal/abnormal . [facility] HospitalHfwnrrfQPKDLXNKDJ6355-88-30 09:19:00 Test Item Value Reference Range Interpretation Comments MPV (test code = MPV) 8.6 7.4-10.4 [facility] HospitalRtmsnacYBVKALAOJX5889-93-90 09:19:00 Test Item Value Reference Range Interpretation Comments Platelet (test code = Platelet) 431 133-450 [facility] HospitalXfbkdnsEABMEFFLQT3768-20-15 09:19:00 Test Item Value Reference Range Interpretation Comments WBC X 10x3 (test code = WBC X 10x3) 11.5 3.7-10.4 [facility] HospitalNekxvmbFKBLRGRHUA4697-86-85 09:19:00 Test Item Value Reference Range Interpretation Comments RBC X 10x6 (test code = RBC X 10x6) 4.10 4.20-5.40 [facility] HospitalAiyzmgeEDKKSTDESR2807-74-47 09:19:00 Test Item Value Reference Range Interpretation Comments Hgb (test code = Hgb) 11.1 12.0-16.0 [facility] HospitalJnzbrdfYUEXOJRKWE3120-69-60 09:19:00 Test Item Value Reference Range Interpretation Comments MCH (test code = MCH) 27.0 pg 27.0-31.0 [facility] HospitalGocjzvdWFIDOIZMHX6867-09-99 09:19:00 Test Item Value Reference Range Interpretation Comments MCV (test code = MCV) 79.8 80.0-98.0 [facility] HospitalOncyvxcPULYBZEOZB9272-10-76 09:19:00 Test Item Value Reference Range Interpretation Comments Hct (test code = Hct) 32.7 36.0-48.0 [facility] HospitalGsotushMAUCRTCLIM3964-13-00 09:19:00 Test Item Value Reference Range Interpretation Comments RDW (test code = RDW) 17.7 11.5-14.5 [facility] HospitalYauiulhZNEVUSIVOW0876-09-90 09:19:00 Test Item Value Reference Range Interpretation Comments MCHC (test code = MCHC) 33.9 32.0-36.0 [facility] HospitalUxdcumfIMZSEOKWYP1174-14-03 09:19:00 Test Item Value Reference Range Interpretation Comments Segs (test code = Segs) 68.8 45.0-75.0 [facility] HospitalKlhudizYHUZAWDKYW4862-26-10 09:19:00 Test Item Value Reference Range Interpretation Comments Basophils (test code = 0.4 See_Comment [Aut omated message] The Basophils) system which ge nerated this result tra nsmitted reference range : <=1.0. The reference r bertha was not used to int erpret this result as normal/abnormal . [facility] HospitalLckvqksSOJUSZLLOI5988-73-92 09:19:00 Test Item Value Reference Range Interpretation Comments Lymphocytes # (test code = Lymphocytes 2.5 1.0-5.5 #) [facility] HospitalOtimpruGBISRJLBBA5176-20-60 09:19:00 Test Item Value Reference Range Interpretation Comments Segs-Bands # (test code = Segs-Bands #) 7.9 1.5-8.1 [facility] HospitalCzutlbyPYEEHIDJEJ3093-86-14 09:19:00 Test Item Value Reference Range Interpretation Comments Eosinophils # (test code 0.1 See_Comment [A utomated message] The = Eosinophils #) system whic h generated this result tra nsmitted reference range : <=0.5. The reference r bertha was not used to int erpret this result as normal/abnormal . [facility] HospitalIlfqrlhQLCJJAWDUL4601-82-34 09:19:00 Test Item Value Reference Range Interpretation Comments Monocytes # (test code 0.9 See_Comment [Aut omated message] The = Monocytes #) system which generated this result tra nsmitted reference range : <=0.8. The reference r bertha was not used to int erpret this result as normal/abnormal . [facility] HospitalWoxycllZAHWPYZTXS9319-87-30 09:19:00 Test Item Value Reference Range Interpretation Comments Eosinophils (test code = 1.1 See_Comment [A utomated message] The Eosinophils) system which ge nerated this result tra nsmitted reference range : <=4.0. The reference r bertha was not used to int erpret this result as normal/abnormal . [facility] HospitalSgsfcthRMCQKKGQUS2279-88-83 09:19:00 Test Item Value Reference Range Interpretation Comments Monocytes (test code = Monocytes) 8.1 2.0-12.0 [facility] HospitalNcilmabUKVNZQTNXK5433-70-52 09:19:00 Test Item Value Reference Range Interpretation Comments Lymphocytes (test code = Lymphocytes) 21.6 20.0-40.0 [facility]2016-10-28 09:19:00 Test Item Value Reference Range Interpretation Comments Procalcitonin Lvl <0.05 ng/mL See_Comment [Automate d message] (test code = The system whic h Procalcitonin Lvl) generated this result transmit daphne reference range : <=0.10. The reference range was not used to interpret this result as normal/abnormal . [facility] HospitalGpefjqkXCRKEAIAZW8115-68-83 09:19:00 Test Item Value Reference Range Interpretation Comments MPV (test code = MPV) 8.6 7.4-10.4 [facility] HospitalAurcjfaVFCRUUPOTA2932-74-16 09:19:00 Test Item Value Reference Range Interpretation Comments Platelet (test code = Platelet) 431 133-450 [facility] HospitalTtyhucuXFKSTKRQFK1289-94-07 09:19:00 Test Item Value Reference Range Interpretation Comments WBC X 10x3 (test code = WBC X 10x3) 11.5 3.7-10.4 [facility] HospitalIbtcgmbWOWQYZISJI7533-91-06 09:19:00 Test Item Value Reference Range Interpretation Comments RBC X 10x6 (test code = RBC X 10x6) 4.10 4.20-5.40 [facility] HospitalMusahgsEEGJVFALRE5579-34-80 09:19:00 Test Item Value Reference Range Interpretation Comments Hgb (test code = Hgb) 11.1 12.0-16.0 [facility] HospitalNxtccjxCDDULFDQOC7340-14-83 09:19:00 Test Item Value Reference Range Interpretation Comments MCH (test code = MCH) 27.0 pg 27.0-31.0 [facility] HospitalTkglyvhMBHTIVSLYG5225-61-91 09:19:00 Test Item Value Reference Range Interpretation Comments MCV (test code = MCV) 79.8 80.0-98.0 [facility] HospitalSbhuxshHIIAAEFGKQ3570-76-12 09:19:00 Test Item Value Reference Range Interpretation Comments Hct (test code = Hct) 32.7 36.0-48.0 [facility] HospitalKbzcgixFYJIWVFZHW6787-28-74 09:19:00 Test Item Value Reference Range Interpretation Comments RDW (test code = RDW) 17.7 11.5-14.5 [facility] HospitalJlhqsepCSOBSLUSLB7076-47-74 09:19:00 Test Item Value Reference Range Interpretation Comments MCHC (test code = MCHC) 33.9 32.0-36.0 [facility] HospitalLjovukxGYSYQIVHVX4045-11-46 09:19:00 Test Item Value Reference Range Interpretation Comments Segs (test code = Segs) 68.8 45.0-75.0 [facility] HospitalLcuejofFDXXIOZJYF1922-89-91 09:19:00 Test Item Value Reference Range Interpretation Comments Basophils (test code = 0.4 See_Comment [Aut omated message] The Basophils) system which ge nerated this result tra nsmitted reference range : <=1.0. The reference r bertha was not used to int erpret this result as normal/abnormal . [facility] HospitalXhgxwtxNMRSPCZWCU8245-23-70 09:19:00 Test Item Value Reference Range Interpretation Comments Lymphocytes # (test code = Lymphocytes 2.5 1.0-5.5 #) [facility] HospitalSzoiyqfQFSOZQIPEV1760-16-72 09:19:00 Test Item Value Reference Range Interpretation Comments Segs-Bands # (test code = Segs-Bands #) 7.9 1.5-8.1 [facility] HospitalMgzaundWNBGSWJJLB0380-32-47 09:19:00 Test Item Value Reference Range Interpretation Comments Eosinophils # (test code 0.1 See_Comment [A utomated message] The = Eosinophils #) system whic h generated this result tra nsmitted reference range : <=0.5. The reference r bertha was not used to int erpret this result as normal/abnormal . [facility] HospitalCxtrtoeADIYQOYFXA2143-72-47 09:19:00 Test Item Value Reference Range Interpretation Comments Monocytes # (test code 0.9 See_Comment [Aut omated message] The = Monocytes #) system which generated this result tra nsmitted reference range : <=0.8. The reference r bertha was not used to int erpret this result as normal/abnormal . [facility] HospitalJojkucrMWJUYUMMQA9620-97-12 09:19:00 Test Item Value Reference Range Interpretation Comments Eosinophils (test code = 1.1 See_Comment [A utomated message] The Eosinophils) system which ge nerated this result tra nsmitted reference range : <=4.0. The reference r bertha was not used to int erpret this result as normal/abnormal . [facility] HospitalTgmdhktEFMEJZVVED3330-50-97 09:19:00 Test Item Value Reference Range Interpretation Comments Monocytes (test code = Monocytes) 8.1 2.0-12.0 [facility] HospitalSwgetuxAXIYHNJQSG7696-06-54 09:19:00 Test Item Value Reference Range Interpretation Comments Lymphocytes (test code = Lymphocytes) 21.6 20.0-40.0 [facility]2016-10-28 09:19:00 Test Item Value Reference Range Interpretation Comments Procalcitonin Lvl <0.05 ng/mL See_Comment [Automate d message] (test code = The system [employer] Procalcitonin Lvl) generated this result transmit daphne reference range : <=0.10. The reference range was not used to interpret this result as normal/abnormal . [facility] HospitalOabnwkrBHHYIROOMI5256-46-05 09:19:00 Test Item Value Reference Range Interpretation Comments MPV (test code = MPV) 8.6 7.4-10.4 [facility] HospitalKgkjjfbJXMGQJCBES3894-57-85 09:19:00 Test Item Value Reference Range Interpretation Comments Platelet (test code = Platelet) 431 133-450 [facility] HospitalBscaadaGKBMMPJYYW5529-20-43 09:19:00 Test Item Value Reference Range Interpretation Comments WBC X 10x3 (test code = WBC X 10x3) 11.5 3.7-10.4 [facility] HospitalYavrikoHFPVICGVHZ7459-43-07 09:19:00 Test Item Value Reference Range Interpretation Comments RBC X 10x6 (test code = RBC X 10x6) 4.10 4.20-5.40 [facility] HospitalJrliqilEGHENCXYNT5706-45-27 09:19:00 Test Item Value Reference Range Interpretation Comments Hgb (test code = Hgb) 11.1 12.0-16.0 [facility] HospitalYdxsfhkASXZUMEEUP1503-90-80 09:19:00 Test Item Value Reference Range Interpretation Comments MCH (test code = MCH) 27.0 pg 27.0-31.0 [facility] HospitalHnzroziWFTPJYFLFN0884-56-95 09:19:00 Test Item Value Reference Range Interpretation Comments MCV (test code = MCV) 79.8 80.0-98.0 [facility] HospitalWmlinfeDXADPZILBV6932-85-07 09:19:00 Test Item Value Reference Range Interpretation Comments Hct (test code = Hct) 32.7 36.0-48.0 [facility] HospitalUorbyvxYMHZNRGKKD2674-02-19 09:19:00 Test Item Value Reference Range Interpretation Comments RDW (test code = RDW) 17.7 11.5-14.5 [facility] HospitalHsxawbfTCKIGOUUEA8718-93-85 09:19:00 Test Item Value Reference Range Interpretation Comments MCHC (test code = MCHC) 33.9 32.0-36.0 [facility] HospitalNjsxdwcUNMWFYKPJS5477-53-64 09:19:00 Test Item Value Reference Range Interpretation Comments Segs (test code = Segs) 68.8 45.0-75.0 [facility] HospitalTlnsbxzEXWGJRMODM0206-83-12 09:19:00 Test Item Value Reference Range Interpretation Comments Basophils (test code = 0.4 See_Comment [Aut omated message] The Basophils) system which ge nerated this result tra nsmitted reference range : <=1.0. The reference r bertha was not used to int erpret this result as normal/abnormal . [facility] HospitalXsdpwxsXMEQPDKTRC1614-48-18 09:19:00 Test Item Value Reference Range Interpretation Comments Lymphocytes # (test code = Lymphocytes 2.5 1.0-5.5 #) [facility] HospitalGytrkxkDBLBTHKOJM4254-72-24 09:19:00 Test Item Value Reference Range Interpretation Comments Segs-Bands # (test code = Segs-Bands #) 7.9 1.5-8.1 [facility] HospitalRimaiddWGEPIOZEDB3914-77-63 09:19:00 Test Item Value Reference Range Interpretation Comments Eosinophils # (test code 0.1 See_Comment [A utomated message] The = Eosinophils #) system [facility] generated this result tra nsmitted reference range : <=0.5. The reference r bertha was not used to int erpret this result as normal/abnormal . [facility] HospitalTywtfrvSACRXOUVFM1237-27-41 09:19:00 Test Item Value Reference Range Interpretation Comments Monocytes # (test code 0.9 See_Comment [Aut omated message] The = Monocytes #) system which generated this result tra nsmitted reference range : <=0.8. The reference r bertha was not used to int erpret this result as normal/abnormal . [facility] HospitalAbgvpydHALNLVNTDJ6120-97-95 09:19:00 Test Item Value Reference Range Interpretation Comments Eosinophils (test code = 1.1 See_Comment [A utomated message] The Eosinophils) system which ge nerated this result tra nsmitted reference range : <=4.0. The reference r bertha was not used to int erpret this result as normal/abnormal . [facility] HospitalLgfkcmvKFJDQCAFLL1020-03-66 09:19:00 Test Item Value Reference Range Interpretation Comments Monocytes (test code = Monocytes) 8.1 2.0-12.0 [facility] HospitalDapthvzRVJDWQFVBA5974-93-14 09:19:00 Test Item Value Reference Range Interpretation Comments Lymphocytes (test code = Lymphocytes) 21.6 20.0-40.0 [facility]2016-10-28 09:19:00 Test Item Value Reference Range Interpretation Comments Procalcitonin Lvl <0.05 ng/mL See_Comment [Automate d message] (test code = The system [facility] h Procalcitonin Lvl) generated this result transmit daphne reference range : <=0.10. The reference range was not used to interpret this result as normal/abnormal . [facility] HospitalCdnbieqGZHPKFPPWS4441-00-56 09:19:00 Test Item Value Reference Range Interpretation Comments MPV (test code = MPV) 8.6 7.4-10.4 [facility] HospitalEqjamnxVVXEDPXGRS0866-43-08 09:19:00 Test Item Value Reference Range Interpretation Comments Platelet (test code = Platelet) 431 133-450 [facility] HospitalAcmtwquRNSDITKLOW7447-74-19 09:19:00 Test Item Value Reference Range Interpretation Comments WBC X 10x3 (test code = WBC X 10x3) 11.5 3.7-10.4 [facility] HospitalCnlpujdWRSLACOMCS1028-02-89 09:19:00 Test Item Value Reference Range Interpretation Comments RBC X 10x6 (test code = RBC X 10x6) 4.10 4.20-5.40 [facility] HospitalZcezuqrAINDAJJBFT3008-46-69 09:19:00 Test Item Value Reference Range Interpretation Comments Hgb (test code = Hgb) 11.1 12.0-16.0 [facility] HospitalQrimqwxESNSUSCOIF8724-65-06 09:19:00 Test Item Value Reference Range Interpretation Comments MCH (test code = MCH) 27.0 pg 27.0-31.0 [facility] HospitalBbskntnPODYZRLEBL6001-68-24 09:19:00 Test Item Value Reference Range Interpretation Comments MCV (test code = MCV) 79.8 80.0-98.0 [facility] HospitalThrnrqtNKFJPXZQRD5902-95-67 09:19:00 Test Item Value Reference Range Interpretation Comments Hct (test code = Hct) 32.7 36.0-48.0 [facility] HospitalGacwzkpBCSRRPPKNP0528-07-25 09:19:00 Test Item Value Reference Range Interpretation Comments RDW (test code = RDW) 17.7 11.5-14.5 [facility] HospitalFrnzgcwYMJYZYFAWC0873-93-05 09:19:00 Test Item Value Reference Range Interpretation Comments MCHC (test code = MCHC) 33.9 32.0-36.0 [facility] HospitalWndirikFPZGVLOCVM5219-25-85 09:19:00 Test Item Value Reference Range Interpretation Comments Segs (test code = Segs) 68.8 45.0-75.0 [facility] HospitalZdfugbpHGVQETGHQN8557-26-08 09:19:00 Test Item Value Reference Range Interpretation Comments Basophils (test code = 0.4 See_Comment [Aut omated message] The Basophils) system which ge nerated this result tra nsmitted reference range : <=1.0. The reference r bertha was not used to int erpret this result as normal/abnormal . [facility] HospitalIuwdivlQPYLWMUUXO2340-68-62 09:19:00 Test Item Value Reference Range Interpretation Comments Lymphocytes # (test code = Lymphocytes 2.5 1.0-5.5 #) [facility] HospitalNkokftjJTJCKPVUTN7800-80-72 09:19:00 Test Item Value Reference Range Interpretation Comments Segs-Bands # (test code = Segs-Bands #) 7.9 1.5-8.1 [facility] HospitalWaastkkSUWMODUJQW9747-88-64 09:19:00 Test Item Value Reference Range Interpretation Comments Eosinophils # (test code 0.1 See_Comment [A utomated message] The = Eosinophils #) system [employer] generated this result tra nsmitted reference range : <=0.5. The reference r bertha was not used to int erpret this result as normal/abnormal . [facility] HospitalZihokkhGVDBVEUWQZ6294-81-67 09:19:00 Test Item Value Reference Range Interpretation Comments Monocytes # (test code 0.9 See_Comment [Aut omated message] The = Monocytes #) system which generated this result tra nsmitted reference range : <=0.8. The reference r bertha was not used to int erpret this result as normal/abnormal . [facility] HospitalOhnnrzbOKXJBKZWPO9595-06-80 09:19:00 Test Item Value Reference Range Interpretation Comments Eosinophils (test code = 1.1 See_Comment [A utomated message] The Eosinophils) system which ge nerated this result tra nsmitted reference range : <=4.0. The reference r bertha was not used to int erpret this result as normal/abnormal . [facility] HospitalPbkkfrsOFYRNCCJGL8995-06-62 09:19:00 Test Item Value Reference Range Interpretation Comments Monocytes (test code = Monocytes) 8.1 2.0-12.0 [facility] HospitalRkgjcavOPHJYABFDF3215-49-53 09:19:00 Test Item Value Reference Range Interpretation Comments Lymphocytes (test code = Lymphocytes) 21.6 20.0-40.0 [facility]2016-10-28 09:19:00 Test Item Value Reference Range Interpretation Comments Procalcitonin Lvl <0.05 ng/mL See_Comment [Automate d message] (test code = The system [facility] h Procalcitonin Lvl) generated this result transmit daphne reference range : <=0.10. The reference range was not used to interpret this result as normal/abnormal . [facility] HospitalYvgjoboFQBSKJIJGL4042-88-81 09:19:00 Test Item Value Reference Range Interpretation Comments MPV (test code = MPV) 8.6 7.4-10.4 [facility] HospitalBtdpysbWYHNHUMCZF6819-21-60 09:19:00 Test Item Value Reference Range Interpretation Comments Platelet (test code = Platelet) 431 133-450 [facility] HospitalNyvwgggTNRPILSHNT4195-75-45 09:19:00 Test Item Value Reference Range Interpretation Comments WBC X 10x3 (test code = WBC X 10x3) 11.5 3.7-10.4 [facility] HospitalEowhneeTYXGJMIEDV1981-91-26 09:19:00 Test Item Value Reference Range Interpretation Comments RBC X 10x6 (test code = RBC X 10x6) 4.10 4.20-5.40 [facility] HospitalFlfgpdaOGDGLUPYLM8541-55-19 09:19:00 Test Item Value Reference Range Interpretation Comments Hgb (test code = Hgb) 11.1 12.0-16.0 [facility] HospitalHdxdnroOPGSAENFWI0917-08-72 09:19:00 Test Item Value Reference Range Interpretation Comments MCH (test code = MCH) 27.0 pg 27.0-31.0 [facility] HospitalAbljceoKEVGHGIYNS0962-47-46 09:19:00 Test Item Value Reference Range Interpretation Comments MCV (test code = MCV) 79.8 80.0-98.0 [facility] HospitalRfsoaniKMLDSZQZZG0330-82-98 09:19:00 Test Item Value Reference Range Interpretation Comments Hct (test code = Hct) 32.7 36.0-48.0 [facility] HospitalEbatchoWNOTCVTTJC6703-57-40 09:19:00 Test Item Value Reference Range Interpretation Comments RDW (test code = RDW) 17.7 11.5-14.5 [facility] HospitalUmxpqudTBMHWAURAB2012-86-81 09:19:00 Test Item Value Reference Range Interpretation Comments MCHC (test code = MCHC) 33.9 32.0-36.0 [facility] HospitalCnvkrqcROGJJJLGWW3472-05-83 09:19:00 Test Item Value Reference Range Interpretation Comments Segs (test code = Segs) 68.8 45.0-75.0 [facility] HospitalVpeotgkYLRBIZNFNA3294-48-33 09:19:00 Test Item Value Reference Range Interpretation Comments Basophils (test code = 0.4 See_Comment [Aut omated message] The Basophils) system which ge nerated this result tra nsmitted reference range : <=1.0. The reference r bertha was not used to int erpret this result as normal/abnormal . [facility] HospitalMucbtnpVAECBSSKVJ5041-30-40 09:19:00 Test Item Value Reference Range Interpretation Comments Lymphocytes # (test code = Lymphocytes 2.5 1.0-5.5 #) [facility] HospitalZlxluwrBXUVTQYGEI8218-35-29 09:19:00 Test Item Value Reference Range Interpretation Comments Segs-Bands # (test code = Segs-Bands #) 7.9 1.5-8.1 [facility] HospitalWzgsgsrXSDGDAVKEP5842-95-01 09:19:00 Test Item Value Reference Range Interpretation Comments Eosinophils # (test code 0.1 See_Comment [A utomated message] The = Eosinophils #) system [employer] generated this result tra nsmitted reference range : <=0.5. The reference r bertha was not used to int erpret this result as normal/abnormal . [facility] HospitalFcjqwhwZPGDKJWUPQ9189-72-71 09:19:00 Test Item Value Reference Range Interpretation Comments Monocytes # (test code 0.9 See_Comment [Aut omated message] The = Monocytes #) system which generated this result tra nsmitted reference range : <=0.8. The reference r bertha was not used to int erpret this result as normal/abnormal . [facility] HospitalIqrgiwzCLISCIDOHP7513-70-09 09:19:00 Test Item Value Reference Range Interpretation Comments Eosinophils (test code = 1.1 See_Comment [A utomated message] The Eosinophils) system which ge nerated this result tra nsmitted reference range : <=4.0. The reference r bertha was not used to int erpret this result as normal/abnormal . [facility] HospitalQquzocoYPAMPYOCGF4761-85-86 09:19:00 Test Item Value Reference Range Interpretation Comments Monocytes (test code = Monocytes) 8.1 2.0-12.0 [facility] HospitalXynnixrACVURUJZWP4879-31-27 09:19:00 Test Item Value Reference Range Interpretation Comments Lymphocytes (test code = Lymphocytes) 21.6 20.0-40.0 [facility]2016-10-28 09:19:00 Test Item Value Reference Range Interpretation Comments Procalcitonin Lvl <0.05 ng/mL See_Comment [Automate d message] (test code = The system Five minutes h Procalcitonin Lvl) generated this result transmit daphne reference range : <=0.10. The reference range was not used to interpret this result as normal/abnormal . [facility]CeyvmnzBRKHMCIWRJ8985-[facility] 09:19:00 Test Item Value Reference Range Interpretation Comments MPV (test code = MPV) 8.6 7.4-10.4 [facility] HospitalAldciedOYLJAZESXS6604-35-63 09:19:00 Test Item Value Reference Range Interpretation Comments Platelet (test code = Platelet) 431 133-325 [facility]2016-10-28 09:19:00 Test Item Value Reference Range Interpretation Comments Procalcitonin Lvl <0.05 ng/mL See_Comment [Automate d message] (test code = The system whic h Procalcitonin Lvl) generated this result transmit daphne reference range : <=0.10. The reference range was not used to interpret this result as normal/abnormal . [facility] HospitalYofrtnxRELEVNMINJ1992-53-32 09:19:00 Test Item Value Reference Range Interpretation Comments WBC X 10x3 (test code = WBC X 10x3) 11.5 3.7-10.4 [facility] HospitalEbypalsTYNRAKZAFO5916-51-20 09:19:00 Test Item Value Reference Range Interpretation Comments MPV (test code = MPV) 8.6 7.4-10.4 [facility] HospitalUqoixngXPCEBMAIXB5080-61-78 09:19:00 Test Item Value Reference Range Interpretation Comments RBC X 10x6 (test code = RBC X 10x6) 4.10 4.20-5.40 [facility] HospitalAjqybkmCJLGMNUQQI2687-29-82 09:19:00 Test Item Value Reference Range Interpretation Comments Platelet (test code = Platelet) 431 133-731 [facility] HospitalBwzeiqwIDMTEDJVFM6087-92-91 09:19:00 Test Item Value Reference Range Interpretation Comments Hgb (test code = Hgb) 11.1 12.0-16.0 [facility] HospitalTvwmhbnUMVYXJIWFK8039-58-25 09:19:00 Test Item Value Reference Range Interpretation Comments WBC X 10x3 (test code = WBC X 10x3) 11.5 3.7-10.4 [facility] HospitalDlhelyrNZKVAHZUVM7392-00-69 09:19:00 Test Item Value Reference Range Interpretation Comments MCH (test code = MCH) 27.0 pg 27.0-31.0 [facility] HospitalMcdosvaOXTXLQKJGP6171-32-14 09:19:00 Test Item Value Reference Range Interpretation Comments RBC X 10x6 (test code = RBC X 10x6) 4.10 4.20-5.40 [facility] HospitalTcslzbgQZXYMQGRHL1163-40-48 09:19:00 Test Item Value Reference Range Interpretation Comments MCV (test code = MCV) 79.8 80.0-98.0 [facility] HospitalWkvajxqLHYUFPJAWW8388-60-31 09:19:00 Test Item Value Reference Range Interpretation Comments Hgb (test code = Hgb) 11.1 12.0-16.0 [facility] HospitalHayhyqjBJSAVDNUHR2462-08-19 09:19:00 Test Item Value Reference Range Interpretation Comments Hct (test code = Hct) 32.7 36.0-48.0 [facility] HospitalDcuseplQWTMGJVENW4565-88-45 09:19:00 Test Item Value Reference Range Interpretation Comments RDW (test code = RDW) 17.7 11.5-14.5 [facility] HospitalQbqwlxrGRLZIOIOLG1288-32-57 09:19:00 Test Item Value Reference Range Interpretation Comments MCH (test code = MCH) 27.0 pg 27.0-31.0 [facility] HospitalJgjfpuwVYGAIOALUB9994-50-12 09:19:00 Test Item Value Reference Range Interpretation Comments MCHC (test code = MCHC) 33.9 32.0-36.0 [facility] HospitalRxoyadyAQTUITRBWX6488-98-73 09:19:00 Test Item Value Reference Range Interpretation Comments MCV (test code = MCV) 79.8 80.0-98.0 [facility] HospitalErqyqsqFHTKTXDRMH2976-13-89 09:19:00 Test Item Value Reference Range Interpretation Comments Segs (test code = Segs) 68.8 45.0-75.0 [facility] HospitalQmbtdglRIMYMGTIWV8286-99-21 09:19:00 Test Item Value Reference Range Interpretation Comments Hct (test code = Hct) 32.7 36.0-48.0 [facility] HospitalLsrcshuSRSDBBKSGH1949-70-57 09:19:00 Test Item Value Reference Range Interpretation Comments RDW (test code = RDW) 17.7 11.5-14.5 [facility] HospitalSursmghYQVEKHHRFF3762-07-53 09:19:00 Test Item Value Reference Range Interpretation Comments Basophils (test code = 0.4 See_Comment [Aut omated message] The Basophils) system which ge nerated this result tra nsmitted reference range : <=1.0. The reference r bertha was not used to int erpret this result as normal/abnormal . [facility] HospitalSrfagbrZPEEXKPOVZ5002-83-34 09:19:00 Test Item Value Reference Range Interpretation Comments MCHC (test code = MCHC) 33.9 32.0-36.0 [facility] HospitalRcjmbltFTEODAZDEI5193-20-46 09:19:00 Test Item Value Reference Range Interpretation Comments Lymphocytes # (test code = Lymphocytes 2.5 1.0-5.5 #) [facility] HospitalLcojawdCNCGDZBRTR0842-54-75 09:19:00 Test Item Value Reference Range Interpretation Comments Segs-Bands # (test code = Segs-Bands #) 7.9 1.5-8.1 [facility] HospitalCdrvabyFGDUNRGBJU5402-31-13 09:19:00 Test Item Value Reference Range Interpretation Comments Segs (test code = Segs) 68.8 45.0-75.0 [facility] HospitalVhittrgNRDCIDKFET9280-19-70 09:19:00 Test Item Value Reference Range Interpretation Comments Eosinophils # (test code 0.1 See_Comment [A utomated message] The = Eosinophils #) system wh h generated this result tra nsmitted reference range : <=0.5. The reference r bertha was not used to int erpret this result as normal/abnormal . [facility] HospitalPknfvwxXBAYQNHXWS9871-95-48 09:19:00 Test Item Value Reference Range Interpretation Comments Basophils (test code = 0.4 See_Comment [Aut omated message] The Basophils) system which ge nerated this result tra nsmitted reference range : <=1.0. The reference r bertha was not used to int erpret this result as normal/abnormal . [facility] HospitalJkouudtHOKMXLTNOC0988-28-43 09:19:00 Test Item Value Reference Range Interpretation Comments Lymphocytes # (test code = Lymphocytes 2.5 1.0-5.5 #) [facility] HospitalBkqeqvkFCKXWRYJZM1719-76-73 09:19:00 Test Item Value Reference Range Interpretation Comments Monocytes # (test code 0.9 See_Comment [Aut omated message] The = Monocytes #) system which generated this result tra nsmitted reference range : <=0.8. The reference r bertha was not used to int erpret this result as normal/abnormal . [facility] HospitalMxxhjixGJFVJNQPBQ2239-82-53 09:19:00 Test Item Value Reference Range Interpretation Comments Segs-Bands # (test code = Segs-Bands #) 7.9 1.5-8.1 [facility] HospitalRwaueqhPLDTAYHNGB4151-87-18 09:19:00 Test Item Value Reference Range Interpretation Comments Eosinophils (test code = 1.1 See_Comment [A utomated message] The Eosinophils) system which ge nerated this result tra nsmitted reference range : <=4.0. The reference r bertha was not used to int erpret this result as normal/abnormal . [facility] HospitalUimmcnpCNPRRQQJHK8150-91-54 09:19:00 Test Item Value Reference Range Interpretation Comments Eosinophils # (test code 0.1 See_Comment [A utomated message] The = Eosinophils #) system [facility] h generated this result tra nsmitted reference range : <=0.5. The reference r bertha was not used to int erpret this result as normal/abnormal . [facility] HospitalGsixednRQDVOFRXBA4500-24-71 09:19:00 Test Item Value Reference Range Interpretation Comments Monocytes (test code = Monocytes) 8.1 2.0-12.0 [facility] HospitalWfzdmarLCOGKPBTGX8669-72-42 09:19:00 Test Item Value Reference Range Interpretation Comments Lymphocytes (test code = Lymphocytes) 21.6 20.0-40.0 [facility] HospitalBtstquwYEVSWFPRUM2491-50-09 09:19:00 Test Item Value Reference Range Interpretation Comments Monocytes # (test code 0.9 See_Comment [Aut omated message] The = Monocytes #) system which generated this result tra nsmitted reference range : <=0.8. The reference r bertha was not used to int erpret this result as normal/abnormal . [facility] HospitalOgdycsjPRAJACXXAP2421-38-39 09:19:00 Test Item Value Reference Range Interpretation Comments Eosinophils (test code = 1.1 See_Comment [A utomated message] The Eosinophils) system which ge nerated this result tra nsmitted reference range : <=4.0. The reference r bertha was not used to int erpret this result as normal/abnormal . [facility] HospitalHbmfohqHZKZOWHOAD1330-35-99 09:19:00 Test Item Value Reference Range Interpretation Comments Monocytes (test code = Monocytes) 8.1 2.0-12.0 [facility] HospitalVniizhzDLCWYUFBKF0160-80-30 09:19:00 Test Item Value Reference Range Interpretation Comments Lymphocytes (test code = Lymphocytes) 21.6 20.0-40.0 [facility]2016-10-28 09:19:00 Test Item Value Reference Range Interpretation Comments Procalcitonin Lvl <0.05 ng/mL See_Comment [Automate d message] (test code = The system whic h Procalcitonin Lvl) generated this result transmit daphne reference range : <=0.10. The reference range was not used to interpret this result as normal/abnormal . [facility] HospitalHjpemcqSBGEESSCZI2034-17-54 09:19:00 Test Item Value Reference Range Interpretation Comments MPV (test code = MPV) 8.6 7.4-10.4 [facility] HospitalLurnkacYZMNNHMIBN4705-36-02 09:19:00 Test Item Value Reference Range Interpretation Comments Platelet (test code = Platelet) 431 133-450 [facility] HospitalOywxfysTYEBIKKCEO4711-80-04 09:19:00 Test Item Value Reference Range Interpretation Comments WBC X 10x3 (test code = WBC X 10x3) 11.5 3.7-10.4 [facility] HospitalAklitdwKJGWQDNMNR4135-05-81 09:19:00 Test Item Value Reference Range Interpretation Comments RBC X 10x6 (test code = RBC X 10x6) 4.10 4.20-5.40 [facility] HospitalTtmqaxiWTIGTMFGZO9398-26-98 09:19:00 Test Item Value Reference Range Interpretation Comments Hgb (test code = Hgb) 11.1 12.0-16.0 [facility] HospitalJlxlgkfWZVYNULQSJ4792-71-70 09:19:00 Test Item Value Reference Range Interpretation Comments MCH (test code = MCH) 27.0 pg 27.0-31.0 [facility] HospitalJhetzpsWCXZOKSRRU7233-37-89 09:19:00 Test Item Value Reference Range Interpretation Comments MCV (test code = MCV) 79.8 80.0-98.0 [facility] HospitalFfuktxzPGGSFKIKHF5888-44-56 09:19:00 Test Item Value Reference Range Interpretation Comments Hct (test code = Hct) 32.7 36.0-48.0 [facility] HospitalIzdrzeaODXDSYRXLR7345-16-51 09:19:00 Test Item Value Reference Range Interpretation Comments RDW (test code = RDW) 17.7 11.5-14.5 [facility] HospitalXkpbjtlJVMFTBTHBR5899-07-91 09:19:00 Test Item Value Reference Range Interpretation Comments MCHC (test code = MCHC) 33.9 32.0-36.0 [facility] HospitalYbhrsqlOCDGSEHAQX2345-76-29 09:19:00 Test Item Value Reference Range Interpretation Comments Segs (test code = Segs) 68.8 45.0-75.0 [facility] HospitalBieshuaDLLLQCFZMU0624-18-77 09:19:00 Test Item Value Reference Range Interpretation Comments Basophils (test code = 0.4 See_Comment [Aut omated message] The Basophils) system which ge nerated this result tra nsmitted reference range : <=1.0. The reference r bertha was not used to int erpret this result as normal/abnormal . [facility] HospitalIaognecYFUOADPQGU5206-03-49 09:19:00 Test Item Value Reference Range Interpretation Comments Lymphocytes # (test code = Lymphocytes 2.5 1.0-5.5 #) [facility] HospitalXlvdhpzBDEBQVHKIB2728-67-66 09:19:00 Test Item Value Reference Range Interpretation Comments Segs-Bands # (test code = Segs-Bands #) 7.9 1.5-8.1 [facility] HospitalWdafmoiFMFIGSNWBD5794-22-78 09:19:00 Test Item Value Reference Range Interpretation Comments Eosinophils # (test code 0.1 See_Comment [A utomated message] The = Eosinophils #) system whic h generated this result tra nsmitted reference range : <=0.5. The reference r bertha was not used to int erpret this result as normal/abnormal . [facility] HospitalMzkvdqpMKIVTEGIMO5759-36-76 09:19:00 Test Item Value Reference Range Interpretation Comments Monocytes # (test code 0.9 See_Comment [Aut omated message] The = Monocytes #) system which generated this result tra nsmitted reference range : <=0.8. The reference r bertha was not used to int erpret this result as normal/abnormal . [facility] HospitalZyekzeaQIFVTXSBBW7501-58-77 09:19:00 Test Item Value Reference Range Interpretation Comments Eosinophils (test code = 1.1 See_Comment [A utomated message] The Eosinophils) system which ge nerated this result tra nsmitted reference range : <=4.0. The reference r bertha was not used to int erpret this result as normal/abnormal . [facility] HospitalLhmwyurBRVKMYUYQE1121-62-12 09:19:00 Test Item Value Reference Range Interpretation Comments Monocytes (test code = Monocytes) 8.1 2.0-12.0 [facility] HospitalFgdtuwcHOMYBFWNZN1182-99-76 09:19:00 Test Item Value Reference Range Interpretation Comments Lymphocytes (test code = Lymphocytes) 21.6 20.0-40.0 [facility]2016-10-28 09:19:00 Test Item Value Reference Range Interpretation Comments Procalcitonin Lvl <0.05 ng/mL See_Comment [Automate d message] (test code = The system whic h Procalcitonin Lvl) generated this result transmit daphne reference range : <=0.10. The reference range was not used to interpret this result as normal/abnormal . [facility] HospitalMsraqtrXYOXDRGDSX1656-15-30 09:19:00 Test Item Value Reference Range Interpretation Comments MPV (test code = MPV) 8.6 7.4-10.4 [facility] HospitalOkufrbuEUJCZJBBNV3853-24-93 09:19:00 Test Item Value Reference Range Interpretation Comments Platelet (test code = Platelet) 431 133-450 [facility] HospitalOxfcubpPQEUEYZODJ9280-05-89 09:19:00 Test Item Value Reference Range Interpretation Comments WBC X 10x3 (test code = WBC X 10x3) 11.5 3.7-10.4 [facility] HospitalLiykybtZUBMSVQKOJ8688-06-95 09:19:00 Test Item Value Reference Range Interpretation Comments RBC X 10x6 (test code = RBC X 10x6) 4.10 4.20-5.40 [facility] HospitalDrsevdgEEKXRQZTEO2645-48-27 09:19:00 Test Item Value Reference Range Interpretation Comments Hgb (test code = Hgb) 11.1 12.0-16.0 [facility] HospitalWamddndJBGCFQVPCD5434-55-96 09:19:00 Test Item Value Reference Range Interpretation Comments MCH (test code = MCH) 27.0 pg 27.0-31.0 [facility] HospitalRlcpoaaCDRYZKQCOP6655-06-36 09:19:00 Test Item Value Reference Range Interpretation Comments MCV (test code = MCV) 79.8 80.0-98.0 [facility] HospitalSdnblcpOTLBMZAROV5115-38-55 09:19:00 Test Item Value Reference Range Interpretation Comments Hct (test code = Hct) 32.7 36.0-48.0 [facility] HospitalUgmxqgbWJBBPZJLXE9156-36-98 09:19:00 Test Item Value Reference Range Interpretation Comments RDW (test code = RDW) 17.7 11.5-14.5 [facility] HospitalDvltdztXWWECKHXMG2613-38-23 09:19:00 Test Item Value Reference Range Interpretation Comments MCHC (test code = MCHC) 33.9 32.0-36.0 [facility] HospitalAbwcbczCPQSSENYGP2056-84-49 09:19:00 Test Item Value Reference Range Interpretation Comments Segs (test code = Segs) 68.8 45.0-75.0 [facility] HospitalYxuqjufPFRROTXWUY5424-50-85 09:19:00 Test Item Value Reference Range Interpretation Comments Basophils (test code = 0.4 See_Comment [Aut omated message] The Basophils) system which ge nerated this result tra nsmitted reference range : <=1.0. The reference r bertha was not used to int erpret this result as normal/abnormal . [facility] HospitalEtuzpryFFXOEVTVSD2818-84-83 09:19:00 Test Item Value Reference Range Interpretation Comments Lymphocytes # (test code = Lymphocytes 2.5 1.0-5.5 #) [facility] HospitalGmsvakrJLVBYQVXUO9097-92-95 09:19:00 Test Item Value Reference Range Interpretation Comments Segs-Bands # (test code = Segs-Bands #) 7.9 1.5-8.1 [facility] HospitalFfweesoOMXVXGASRH9317-13-89 09:19:00 Test Item Value Reference Range Interpretation Comments Eosinophils # (test code 0.1 See_Comment [A utomated message] The = Eosinophils #) system whic h generated this result tra nsmitted reference range : <=0.5. The reference r bertha was not used to int erpret this result as normal/abnormal . [facility] HospitalNdeotrcHAVZSVQBOY9619-45-83 09:19:00 Test Item Value Reference Range Interpretation Comments Monocytes # (test code 0.9 See_Comment [Aut omated message] The = Monocytes #) system which generated this result tra nsmitted reference range : <=0.8. The reference r bertha was not used to int erpret this result as normal/abnormal . [facility] HospitalQnmncueBMAHQEUENP0524-64-42 09:19:00 Test Item Value Reference Range Interpretation Comments Eosinophils (test code = 1.1 See_Comment [A utomated message] The Eosinophils) system which ge nerated this result tra nsmitted reference range : <=4.0. The reference r bertha was not used to int erpret this result as normal/abnormal . [facility] HospitalEokvzdoOIVOUVDHMH9195-23-93 09:19:00 Test Item Value Reference Range Interpretation Comments Monocytes (test code = Monocytes) 8.1 2.0-12.0 [facility] HospitalLdnwzkvWLVGYVHPEV1907-47-13 09:19:00 Test Item Value Reference Range Interpretation Comments Lymphocytes (test code = Lymphocytes) 21.6 20.0-40.0 [facility]2016-10-28 09:19:00 Test Item Value Reference Range Interpretation Comments Procalcitonin Lvl <0.05 ng/mL See_Comment [Automate d message] (test code = The system whic h Procalcitonin Lvl) generated this result transmit daphne reference range : <=0.10. The reference range was not used to interpret this result as normal/abnormal . [facility] HospitalZwsvoaqMXMDNXAOVB8567-44-05 09:19:00 Test Item Value Reference Range Interpretation Comments MPV (test code = MPV) 8.6 7.4-10.4 [facility] HospitalVekqvqkNMYVVXDMVI0900-41-13 09:19:00 Test Item Value Reference Range Interpretation Comments Platelet (test code = Platelet) 431 133-450 [facility] HospitalGjzewsrBOFPVBBZOO1158-64-93 09:19:00 Test Item Value Reference Range Interpretation Comments WBC X 10x3 (test code = WBC X 10x3) 11.5 3.7-10.4 [facility] HospitalWcnyujpSMSLZSYZQW2516-43-75 09:19:00 Test Item Value Reference Range Interpretation Comments RBC X 10x6 (test code = RBC X 10x6) 4.10 4.20-5.40 [facility] HospitalFejgjsxXESGRBUFAH7300-68-00 09:19:00 Test Item Value Reference Range Interpretation Comments Hgb (test code = Hgb) 11.1 12.0-16.0 [facility] HospitalMlpdqvrNUOZEJLFUH7446-20-98 09:19:00 Test Item Value Reference Range Interpretation Comments MCH (test code = MCH) 27.0 pg 27.0-31.0 [facility] HospitalXvkbmmvIUQCPJKGXL6814-03-64 09:19:00 Test Item Value Reference Range Interpretation Comments MCV (test code = MCV) 79.8 80.0-98.0 [facility] HospitalTyelzufSBOMBKNZZC7909-60-42 09:19:00 Test Item Value Reference Range Interpretation Comments Hct (test code = Hct) 32.7 36.0-48.0 [facility] HospitalMkqvhgvCXHVHKRQFU6808-59-99 09:19:00 Test Item Value Reference Range Interpretation Comments RDW (test code = RDW) 17.7 11.5-14.5 [facility] HospitalRqosyznBHDJXCFSHV1425-53-61 09:19:00 Test Item Value Reference Range Interpretation Comments MCHC (test code = MCHC) 33.9 32.0-36.0 [facility] HospitalXzjgabdAUTTXYRTNS4386-60-35 09:19:00 Test Item Value Reference Range Interpretation Comments Segs (test code = Segs) 68.8 45.0-75.0 [facility] HospitalVmltpvmRHXBFFCOMS3803-58-12 09:19:00 Test Item Value Reference Range Interpretation Comments Basophils (test code = 0.4 See_Comment [Aut omated message] The Basophils) system which ge nerated this result tra nsmitted reference range : <=1.0. The reference r bertha was not used to int erpret this result as normal/abnormal . [facility] HospitalErfyohjLFTAZFNCLU9309-19-14 09:19:00 Test Item Value Reference Range Interpretation Comments Lymphocytes # (test code = Lymphocytes 2.5 1.0-5.5 #) [facility] HospitalQaymvmaWSZOVPFEIR8608-88-97 09:19:00 Test Item Value Reference Range Interpretation Comments Segs-Bands # (test code = Segs-Bands #) 7.9 1.5-8.1 [facility] HospitalGikyupcWEPDBKKEDF9278-64-02 09:19:00 Test Item Value Reference Range Interpretation Comments Eosinophils # (test code 0.1 See_Comment [A utomated message] The = Eosinophils #) system whic h generated this result tra nsmitted reference range : <=0.5. The reference r bertha was not used to int erpret this result as normal/abnormal . [facility] HospitalAbeuczzXBTRETWAUC7917-50-27 09:19:00 Test Item Value Reference Range Interpretation Comments Monocytes # (test code 0.9 See_Comment [Aut omated message] The = Monocytes #) system which generated this result tra nsmitted reference range : <=0.8. The reference r bertha was not used to int erpret this result as normal/abnormal . [facility] HospitalGtqsxxkASLJGUNXHC0379-21-51 09:19:00 Test Item Value Reference Range Interpretation Comments Eosinophils (test code = 1.1 See_Comment [A utomated message] The Eosinophils) system which ge nerated this result tra nsmitted reference range : <=4.0. The reference r bertha was not used to int erpret this result as normal/abnormal . [facility] HospitalAnkjyqoVGSNJDNCWQ2815-96-28 09:19:00 Test Item Value Reference Range Interpretation Comments Monocytes (test code = Monocytes) 8.1 2.0-12.0 [facility] HospitalFxrnthbSHJPWVCNJC1771-47-69 09:19:00 Test Item Value Reference Range Interpretation Comments Lymphocytes (test code = Lymphocytes) 21.6 20.0-40.0 [facility]2016-10-28 09:19:00 Test Item Value Reference Range Interpretation Comments Procalcitonin Lvl <0.05 ng/mL See_Comment [Automate d message] (test code = The system whic h Procalcitonin Lvl) generated this result transmit daphne reference range : <=0.10. The reference range was not used to interpret this result as normal/abnormal . [facility] HospitalRrgtusdITVEQEUWXE6128-66-96 09:19:00 Test Item Value Reference Range Interpretation Comments MPV (test code = MPV) 8.6 7.4-10.4 [facility] HospitalNgtqvyfYQDZAOVJQB3796-52-85 09:19:00 Test Item Value Reference Range Interpretation Comments Platelet (test code = Platelet) 431 133-450 [facility] HospitalVhdxsizNJXBQEWMPH5145-99-26 09:19:00 Test Item Value Reference Range Interpretation Comments WBC X 10x3 (test code = WBC X 10x3) 11.5 3.7-10.4 [facility] HospitalBkgcfjsUBAOJFQSGQ1989 09:19:00 Test Item Value Reference Range Interpretation Comments RBC X 10x6 (test code = RBC X 10x6) 4.10 4.20-5.40 [facility] HospitalAzqpjukSSOGRSTAII0979-27-46 09:19:00 Test Item Value Reference Range Interpretation Comments Hgb (test code = Hgb) 11.1 12.0-16.0 [facility] HospitalJwgsmmiCIHKVVYUOO9636-10-65 09:19:00 Test Item Value Reference Range Interpretation Comments MCH (test code = MCH) 27.0 pg 27.0-31.0 [facility] HospitalBwuarfnMPCCGPLKLO1544-60-52 09:19:00 Test Item Value Reference Range Interpretation Comments MCV (test code = MCV) 79.8 80.0-98.0 [facility] HospitalDsrpqhuNLYNJTISBX2340-73-39 09:19:00 Test Item Value Reference Range Interpretation Comments Hct (test code = Hct) 32.7 36.0-48.0 [facility] HospitalKgnqwluYUGXCQBFDD5036-69-63 09:19:00 Test Item Value Reference Range Interpretation Comments RDW (test code = RDW) 17.7 11.5-14.5 [facility] HospitalBeqlyaiBHIAMJUFLK9009-71-00 09:19:00 Test Item Value Reference Range Interpretation Comments MCHC (test code = MCHC) 33.9 32.0-36.0 [facility] HospitalGzggfhmHPXVWYQCJI6591-85-87 09:19:00 Test Item Value Reference Range Interpretation Comments Segs (test code = Segs) 68.8 45.0-75.0 [facility] HospitalNwhqvpjLQGEFEHWVL7256-64-72 09:19:00 Test Item Value Reference Range Interpretation Comments Basophils (test code = 0.4 See_Comment [Aut omated message] The Basophils) system which ge nerated this result tra nsmitted reference range : <=1.0. The reference r bertha was not used to int erpret this result as normal/abnormal . [facility] HospitalBhfeimxGPCBAZAFYR4170-30-82 09:19:00 Test Item Value Reference Range Interpretation Comments Lymphocytes # (test code = Lymphocytes 2.5 1.0-5.5 #) [facility] HospitalCjppfmyBQLSXTYAGZ4594-20-86 09:19:00 Test Item Value Reference Range Interpretation Comments Segs-Bands # (test code = Segs-Bands #) 7.9 1.5-8.1 [facility]XoqhoguGCFPUNHJFM5654-22-93 09:19:00 Test Item Value Reference Range Interpretation Comments Eosinophils # (test code 0.1 See_Comment [A utomated message] The = Eosinophils #) system whic h generated this result tra nsmitted reference range : <=0.5. The reference r bertha was not used to int erpret this result as normal/abnormal . [facility] HospitalZelpwawQEXXLUUZDN9110-88-92 09:19:00 Test Item Value Reference Range Interpretation Comments Monocytes # (test code 0.9 See_Comment [Aut omated message] The = Monocytes #) system which generated this result tra nsmitted reference range : <=0.8. The reference r bertha was not used to int erpret this result as normal/abnormal . [facility] HospitalLvfqkihURAXKLOEBE9051-02-19 09:19:00 Test Item Value Reference Range Interpretation Comments Eosinophils (test code = 1.1 See_Comment [A utomated message] The Eosinophils) system which ge nerated this result tra nsmitted reference range : <=4.0. The reference r bertha was not used to int erpret this result as normal/abnormal . [facility] HospitalWevvsweTJDSPCKQQC6632-38-80 09:19:00 Test Item Value Reference Range Interpretation Comments Monocytes (test code = Monocytes) 8.1 2.0-12.0 [facility] HospitalJoxqeusHRZJXHLAPN8675-91-91 09:19:00 Test Item Value Reference Range Interpretation Comments Lymphocytes (test code = Lymphocytes) 21.6 20.0-40.0 [facility]2016-10-28 09:19:00 Test Item Value Reference Range Interpretation Comments Procalcitonin Lvl <0.05 ng/mL See_Comment [Automate d message] (test code = The system whic h Procalcitonin Lvl) generated this result transmit daphne reference range : <=0.10. The reference range was not used to interpret this result as normal/abnormal . [facility] HospitalZveqdrcVKTKTTRWNV4007-29-76 09:19:00 Test Item Value Reference Range Interpretation Comments MPV (test code = MPV) 8.6 7.4-10.4 [facility] HospitalUgqipyaODJJAOOQNJ6716-12-43 09:19:00 Test Item Value Reference Range Interpretation Comments Platelet (test code = Platelet) 431 133-450 [facility] HospitalBqbcpajLCCYRKZFLD3557-59-92 09:19:00 Test Item Value Reference Range Interpretation Comments WBC X 10x3 (test code = WBC X 10x3) 11.5 3.7-10.4 [facility] HospitalHjxsebhCLZUKFCFBI4687-85-60 09:19:00 Test Item Value Reference Range Interpretation Comments RBC X 10x6 (test code = RBC X 10x6) 4.10 4.20-5.40 [facility] HospitalTtbdscuACJPSJVCAE3814-88-27 09:19:00 Test Item Value Reference Range Interpretation Comments Hgb (test code = Hgb) 11.1 12.0-16.0 [facility] HospitalPukqxymPONKYONPSC0484-50-07 09:19:00 Test Item Value Reference Range Interpretation Comments MCH (test code = MCH) 27.0 pg 27.0-31.0 [facility] HospitalAthkawfDOJBCFTBYX2666-08-41 09:19:00 Test Item Value Reference Range Interpretation Comments MCV (test code = MCV) 79.8 80.0-98.0 [facility] HospitalJclifsuTZWPMSOSLL9562-01-74 09:19:00 Test Item Value Reference Range Interpretation Comments Hct (test code = Hct) 32.7 36.0-48.0 [facility] HospitalMrdfivrQUFHKPUQNB7286-24-01 09:19:00 Test Item Value Reference Range Interpretation Comments RDW (test code = RDW) 17.7 11.5-14.5 [facility] HospitalSwwfngoRVDURJALXN0506-21-21 09:19:00 Test Item Value Reference Range Interpretation Comments MCHC (test code = MCHC) 33.9 32.0-36.0 [facility] HospitalHepwahyGPCNTXODZZ6519-08-38 09:19:00 Test Item Value Reference Range Interpretation Comments Segs (test code = Segs) 68.8 45.0-75.0 [facility] HospitalSbhwugoSXADFWRVHO8333-74-67 09:19:00 Test Item Value Reference Range Interpretation Comments Basophils (test code = 0.4 See_Comment [Aut omated message] The Basophils) system which ge nerated this result tra nsmitted reference range : <=1.0. The reference r bertha was not used to int erpret this result as normal/abnormal . [facility] HospitalXaqxzbbDVQNTKYDMJ0553-43-58 09:19:00 Test Item Value Reference Range Interpretation Comments Lymphocytes # (test code = Lymphocytes 2.5 1.0-5.5 #) [facility] HospitalUfowzgvBVWOCIFADH0494-36-79 09:19:00 Test Item Value Reference Range Interpretation Comments Segs-Bands # (test code = Segs-Bands #) 7.9 1.5-8.1 [facility] HospitalJvmvgosFUGHMZPUHH0450-67-72 09:19:00 Test Item Value Reference Range Interpretation Comments Eosinophils # (test code 0.1 See_Comment [A utomated message] The = Eosinophils #) system whic h generated this result tra nsmitted reference range : <=0.5. The reference r bertha was not used to int erpret this result as normal/abnormal . [facility] HospitalFopetzxHGRNVJLBFB2257-40-60 09:19:00 Test Item Value Reference Range Interpretation Comments Monocytes # (test code 0.9 See_Comment [Aut omated message] The = Monocytes #) system which generated this result tra nsmitted reference range : <=0.8. The reference r bertha was not used to int erpret this result as normal/abnormal . [facility] HospitalIplzigjIDCRLBEJFV8778-31-08 09:19:00 Test Item Value Reference Range Interpretation Comments Eosinophils (test code = 1.1 See_Comment [A utomated message] The Eosinophils) system which ge nerated this result tra nsmitted reference range : <=4.0. The reference r bertha was not used to int erpret this result as normal/abnormal . [facility] HospitalVsvjcznVESHAGXTJQ6866-10-96 09:19:00 Test Item Value Reference Range Interpretation Comments Monocytes (test code = Monocytes) 8.1 2.0-12.0 [facility] HospitalLjixfcaPSHUEGCYZA4410-10-63 09:19:00 Test Item Value Reference Range Interpretation Comments Lymphocytes (test code = Lymphocytes) 21.6 20.0-40.0 [facility]2016-10-27 16:28:00 Test Item Value Reference Range Interpretation Comments Lipase Lvl (test code = Lipase Lvl) 129 73-393 [facility]OaiukujQJDNDFTUKVHI8352-33-34 16:28:00 Test Item Value Reference Range Interpretation Comments AGAP (test code = AGAP) 9.5 10.0-20.0 [facility] MichiganTpojuuvWJFEQIJNXOID8675-71-54 16:28:00 Test Item Value Reference Range Interpretation Comments B/C Ratio (test code = B/C Ratio) 8 6-25 [facility] MichiganGrzrkmeGQWUTMGTCWBU0793-03-00 16:28:00 Test Item Value Reference Range Interpretation Comments A/G Ratio (test code = A/G Ratio) 1.2 0.7-1.6 [facility] MichiganCbodhbnKOWHTJVBXTEB0076-05-65 16:28:00 Test Item Value Reference Range Interpretation Comments Globulin (test code = Globulin) 3.3 2.7-4.2 [facility] MichiganJdyrxnkZBSZBZWGNUIR2206-77-05 16:28:00 Test Item Value Reference Range Interpretation Comments CO2 (test code = CO2) 29 24-32 [facility] MichiganEadgpqnEFQSAAXPVMJZ7683-59-20 16:28:00 Test Item Value Reference Range Interpretation Comments Chloride Lvl (test code = Chloride Lvl) 106 95-109 [facility] MichiganFgavwhlLEARSHFBWOIX9550-97-41 16:28:00 Test Item Value Reference Range Interpretation Comments Bili Total (test code = Bili Total) 0.4 0.2-1.3 [facility] MichiganEbqbgejSTPECKZAJNRQ7320-80-92 16:28:00 Test Item Value Reference Range Interpretation Comments Calcium Lvl (test code = Calcium Lvl) 8.5 8.5-10.5 [facility] MichiganTajxzfjFZHEITDMKHRP1829-89-41 16:28:00 Test Item Value Reference Range Interpretation Comments Total Protein (test code = Total 7.1 6.4-8.4 Protein) [facility] MichiganNjetqrbYHJMBDLEJTZY6879-62-17 16:28:00 Test Item Value Reference Range Interpretation Comments ASPARTATE TRANSAMINASE 15 See_Comment [Aut omated message] (test code = ASPARTATE The s ystem which TRANSAMINASE) generated this result transmitted ref erence range: <=37. Th e reference range was not used to interpr et this result as normal/abnormal . [facility] MichiganOfdzkmlDGWSTASWJSHT5147-23-40 16:28:00 Test Item Value Reference Range Interpretation Comments eGFR (test code = eGFR) 117 [facility] MichiganBxpdajiBNJRMWLGFOXQ7813-09-12 16:28:00 Test Item Value Reference Range Interpretation Comments Albumin Lvl (test code = Albumin Lvl) 3.8 3.5-5.0 [facility] MichiganBohgwxzLHPRHVUGAAES8797-47-49 16:28:00 Test Item Value Reference Range Interpretation Comments Glucose Lvl (test code = Glucose Lvl) 114 70-99 [facility] MichiganYbnsodpFGKEOZYYSLBE7188-25-76 16:28:00 Test Item Value Reference Range Interpretation Comments ALANINE AMINOTRANSFERASE 20 See_Comment [A utomated message] (test code = ALANINE The sys tem which AMINOTRANSFERASE) generated this result transmitted ref erence range: <=65. Th e reference range was not used to int erpret this result as normal/abnormal . [facility] MichiganTrpvekjDSQMCTHRBUMG4251-19-81 16:28:00 Test Item Value Reference Range Interpretation Comments Alk Phos (test code = Alk Phos) 80 39-136 [facility] MichiganMjysturUBXZUUWEHBXR4301-59-47 16:28:00 Test Item Value Reference Range Interpretation Comments Potassium Lvl (test code = Potassium 3.5 3.5-5.1 Lvl) [facility] MichiganGdfleykYGQLJIGAMQVT8606-54-81 16:28:00 Test Item Value Reference Range Interpretation Comments BUN (test code = BUN) 6 7-22 [facility] MichiganWdugftlTNGHJGVJIRSV7427-38-81 16:28:00 Test Item Value Reference Range Interpretation Comments Sodium Lvl (test code = Sodium Lvl) 141 135-145 [facility] MichiganGsmsgmzASETVXOGSOAQ7570-87-46 16:28:00 Test Item Value Reference Range Interpretation Comments Creatinine Lvl (test code = Creatinine 0.71 0.50-1.40 Lvl) [facility] HospitalAygcpmpDYJSJEOLOJ2718-58-30 16:28:00 Test Item Value Reference Range Interpretation Comments Basophils (test code = 0.3 See_Comment [Aut omated message] The Basophils) system which ge nerated this result tra nsmitted reference range : <=1.0. The reference r bertha was not used to int erpret this result as normal/abnormal . [facility] HospitalKdxbxefAQPOPSGQHP2746-55-10 16:28:00 Test Item Value Reference Range Interpretation Comments Eosinophils # (test code 0.1 See_Comment [A utomated message] The = Eosinophils #) system whic h generated this result tra nsmitted reference range : <=0.5. The reference r bertha was not used to int erpret this result as normal/abnormal . [facility] HospitalAczuqhkUYBMXXCBXB3638-04-48 16:28:00 Test Item Value Reference Range Interpretation Comments Segs-Bands # (test code = Segs-Bands #) 10.1 1.5-8.1 [facility] HospitalVvxuesgOXIDVFIUUW5461-84-56 16:28:00 Test Item Value Reference Range Interpretation Comments Lymphocytes # (test code = Lymphocytes 1.7 1.0-5.5 #) [facility] HospitalYbhndzhMYGTSQSPTU2399-33-42 16:28:00 Test Item Value Reference Range Interpretation Comments Monocytes # (test code 0.7 See_Comment [Aut omated message] The = Monocytes #) system which generated this result tra nsmitted reference range : <=0.8. The reference r bertha was not used to int erpret this result as normal/abnormal . [facility] HospitalSlrhezyETDLBFEFCI1815-11-05 16:28:00 Test Item Value Reference Range Interpretation Comments Segs (test code = Segs) 80.1 45.0-75.0 [facility] HospitalUydwawxEYSHLQQWSW5730-93-95 16:28:00 Test Item Value Reference Range Interpretation Comments Monocytes (test code = Monocytes) 5.8 2.0-12.0 [facility] HospitalXnnbwyhWSPOJDKHGV4898-90-39 16:28:00 Test Item Value Reference Range Interpretation Comments Eosinophils (test code = 0.6 See_Comment [A utomated message] The Eosinophils) system which ge nerated this result tra nsmitted reference range : <=4.0. The reference r bertha was not used to int erpret this result as normal/abnormal . [facility] HospitalNvhoouhMFZRGYOJFY9894-11-94 16:28:00 Test Item Value Reference Range Interpretation Comments Lymphocytes (test code = Lymphocytes) 13.2 20.0-40.0 [facility] AND [id number] 16:28:00 Test Item Value Reference Range Interpretation Comments UA Sq Epi (test code = UA Sq Epi) Few /LPF [facility] AND [id number] 16:28:00 Test Item Value Reference Range Interpretation Comments UA Spec Grav (test code = UA Spec 1.015 1 Grav) [facility] AND [id number] 16:28:00 Test Item Value Reference Range Interpretation Comments UA Turbidity (test code = Clear (04/08/16 UA Turbidity) 11:28 AM) [facility] AND [id number] 16:28:00 Test Item Value Reference Range Interpretation Comments UA Color (test code = Yellow *NA*(04/08/16 UA Color) 11:28 AM) [facility] AND [id number] 16:28:00 Test Item Value Reference Range Interpretation Comments UA Bili (test code = Negative *NA*(04/08/16 UA Bili) 11:28 AM) [facility] AND [id number] 16:28:00 Test Item Value Reference Range Interpretation Comments UA Ketones (test code = UA Negative mg/dL Ketones) [facility] AND [id number] 16:28:00 Test Item Value Reference Range Interpretation Comments UA Glucose (test code = UA Negative mg/dL Glucose) [facility] AND [id number] 16:28:00 Test Item Value Reference Range Interpretation Comments UA pH (test code = UA pH) 8.5 1 5.0-8.0 [facility] [id number] 16:28:00 Test Item Value Reference Range Interpretation Comments UA Protein (test code = UA Negative mg/dL Protein) [facility] [id number] 16:28:00 Test Item Value Reference Range Interpretation Comments UA Leuk Est (test Negative (04/08/16 11:28 code = UA Leuk Est) AM) [facility] [id number] 16:28:00 Test Item Value Reference Range Interpretation Comments UA Nitrite (test code Negative (04/08/16 = UA Nitrite) 11:28 AM) [facility] [id number] 16:28:00 Test Item Value Reference Range Interpretation Comments UA Urobilinogen (test code = UA 0.2 0.1-1.0 Urobilinogen) [facility] [id number] 16:28:00 Test Item Value Reference Range Interpretation Comments UA Blood (test code = Negative (04/08/16 11:28 UA Blood) AM) [facility] [id number] 16:28:00 Test Item Value Reference Range Interpretation Comments U Preg (test code = U Negative (04/08/16 11:28 Preg) AM) [facility]CHE[facility] [id number] 16:28:00 Test Item Value Reference Range Interpretation Comments Lipase Lvl (test code = Lipase Lvl) 129 73-393 [facility] JhsahqePISKZQNUKZGR7587-87-99 16:28:00 Test Item Value Reference Range Interpretation Comments AGAP (test code = AGAP) 9.5 10.0-20.0 [facility] GlmsoaaUPLQYXIRZBYL5426-58-41 16:28:00 Test Item Value Reference Range Interpretation Comments B/C Ratio (test code = B/C Ratio) 8 6-25 [facility] RmpzjunMCGHOFUSGIGG8513-08-93 16:28:00 Test Item Value Reference Range Interpretation Comments A/G Ratio (test code = A/G Ratio) 1.2 0.7-1.6 [facility] CghhznfJRQUGXOIGDPC7137-68-77 16:28:00 Test Item Value Reference Range Interpretation Comments Globulin (test code = Globulin) 3.3 2.7-4.2 [facility] SngdmeaIVKFXKDUFZJA6221-08-33 16:28:00 Test Item Value Reference Range Interpretation Comments CO2 (test code = CO2) 29 24-32 [facility]ZwqxznpHMLMCOPYHXJU3369-67-72 16:28:00 Test Item Value Reference Range Interpretation Comments Chloride Lvl (test code = Chloride Lvl) 106 95-109 [facility] MichiganIsonuroITWYJEDGYHJM1421-88-41 16:28:00 Test Item Value Reference Range Interpretation Comments Bili Total (test code = Bili Total) 0.4 0.2-1.3 [facility] MichiganMeafrowTNMEAWEKSTHF1068-54-33 16:28:00 Test Item Value Reference Range Interpretation Comments Calcium Lvl (test code = Calcium Lvl) 8.5 8.5-10.5 [facility] MichiganMvopipsXJKRGCFHUBIG9703-48-19 16:28:00 Test Item Value Reference Range Interpretation Comments Total Protein (test code = Total 7.1 6.4-8.4 Protein) [facility] MichiganGhpjmhdLNBWONFQBCEV7813-94-34 16:28:00 Test Item Value Reference Range Interpretation Comments ASPARTATE TRANSAMINASE 15 See_Comment [Aut omated message] (test code = ASPARTATE The s ystem which TRANSAMINASE) generated this result transmitted ref erence range: <=37. Th e reference range was not used to interpr et this result as normal/abnormal . [facility] MichiganLyqwalnLFUQICQVRTCF8515-56-61 16:28:00 Test Item Value Reference Range Interpretation Comments eGFR (test code = eGFR) 117 [facility]ChvqshkKLKEVWIHZKLS4115-53-81 16:28:00 Test Item Value Reference Range Interpretation Comments Albumin Lvl (test code = Albumin Lvl) 3.8 3.5-5.0 [facility] MichiganBhjimafJQZFYUBYPGOE5845-90-25 16:28:00 Test Item Value Reference Range Interpretation Comments Glucose Lvl (test code = Glucose Lvl) 114 70-99 [facility] MichiganKnrkrhtLZHLHKREWBAX8416-85-97 16:28:00 Test Item Value Reference Range Interpretation Comments ALANINE AMINOTRANSFERASE 20 See_Comment [A utomated message] (test code = ALANINE The sys tem which AMINOTRANSFERASE) generated this result transmitted ref erence range: <=65. Th e reference range was not used to int erpret this result as normal/abnormal . [facility] MichiganQmtbhygXDARRCHRYTJW3697-07-02 16:28:00 Test Item Value Reference Range Interpretation Comments Alk Phos (test code = Alk Phos) 80 39-136 [facility]WxtbmzgYVODSYWWOLIE7246-47-89 16:28:00 Test Item Value Reference Range Interpretation Comments Potassium Lvl (test code = Potassium 3.5 3.5-5.1 Lvl) [facility]VueqyoyNMYENNDYURDI7081-32-42 16:28:00 Test Item Value Reference Range Interpretation Comments BUN (test code = BUN) 6 7-22 [facility]GrfhofwJUFTGOYXYKFX8602-71-23 16:28:00 Test Item Value Reference Range Interpretation Comments Sodium Lvl (test code = Sodium Lvl) 141 135-145 [facility] MichiganKvhokhlTASOLDKCGFBA8768-00-68 16:28:00 Test Item Value Reference Range Interpretation Comments Creatinine Lvl (test code = Creatinine 0.71 0.50-1.40 Lvl) [facility] HospitalVidddxxLXZFQPPJJS5384-96-78 16:28:00 Test Item Value Reference Range Interpretation Comments Basophils (test code = 0.3 See_Comment [Aut omated message] The Basophils) system which ge nerated this result tra nsmitted reference range : <=1.0. The reference r bertha was not used to int erpret this result as normal/abnormal . [facility] HospitalAccvmcfNWTUGTUSEU5957-56-59 16:28:00 Test Item Value Reference Range Interpretation Comments Eosinophils # (test code 0.1 See_Comment [A utomated message] The = Eosinophils #) system whic h generated this result tra nsmitted reference range : <=0.5. The reference r bertha was not used to int erpret this result as normal/abnormal . [facility] HospitalXcsrlxsMDIPYGREFM9660-65-87 16:28:00 Test Item Value Reference Range Interpretation Comments Segs-Bands # (test code = Segs-Bands #) 10.1 1.5-8.1 [facility] HospitalXwphbxuXIKPJPLRJP3693-92-78 16:28:00 Test Item Value Reference Range Interpretation Comments Lymphocytes # (test code = Lymphocytes 1.7 1.0-5.5 #) [facility] HospitalFzrgywqTIVNGVPQGH7419-70-64 16:28:00 Test Item Value Reference Range Interpretation Comments Monocytes # (test code 0.7 See_Comment [Aut omated message] The = Monocytes #) system which generated this result tra nsmitted reference range : <=0.8. The reference r bertha was not used to int erpret this result as normal/abnormal . [facility] HospitalLenilcjDBZWDNEPRD3003-71-94 16:28:00 Test Item Value Reference Range Interpretation Comments Segs (test code = Segs) 80.1 45.0-75.0 [facility] HospitalCvbrcgeEVDACASQEN2498-69-99 16:28:00 Test Item Value Reference Range Interpretation Comments Monocytes (test code = Monocytes) 5.8 2.0-12.0 [facility] HospitalTmivhdlPUHRENMVII9774-90-65 16:28:00 Test Item Value Reference Range Interpretation Comments Eosinophils (test code = 0.6 See_Comment [A utomated message] The Eosinophils) system which ge nerated this result tra nsmitted reference range : <=4.0. The reference r bertha was not used to int erpret this result as normal/abnormal . [facility] HospitalVgdwyqsVOSLEJYPCE9223-12-95 16:28:00 Test Item Value Reference Range Interpretation Comments Lymphocytes (test code = Lymphocytes) 13.2 20.0-40.0 [facility] AND [id number] 16:28:00 Test Item Value Reference Range Interpretation Comments UA Sq Epi (test code = UA Sq Epi) Few /LPF [facility] AND [id number] 16:28:00 Test Item Value Reference Range Interpretation Comments UA Spec Grav (test code = UA Spec 1.015 1 Grav) [facility] AND [id number] 16:28:00 Test Item Value Reference Range Interpretation Comments UA Turbidity (test code = Clear (04/08/16 UA Turbidity) 11:28 AM) [facility] AND [id number] 16:28:00 Test Item Value Reference Range Interpretation Comments UA Color (test code = Yellow *NA*(04/08/16 UA Color) 11:28 AM) [facility] AND [id number] 16:28:00 Test Item Value Reference Range Interpretation Comments UA Bili (test code = Negative *NA*(04/08/16 UA Bili) 11:28 AM) [facility] AND [id number] 16:28:00 Test Item Value Reference Range Interpretation Comments UA Ketones (test code = UA Negative mg/dL Ketones) [facility] AND [id number] 16:28:00 Test Item Value Reference Range Interpretation Comments UA Glucose (test code = UA Negative mg/dL Glucose) [facility] [id number] 16:28:00 Test Item Value Reference Range Interpretation Comments UA pH (test code = UA pH) 8.5 1 5.0-8.0 [facility] [id number] 16:28:00 Test Item Value Reference Range Interpretation Comments UA Protein (test code = UA Negative mg/dL Protein) [facility] [id number] 16:28:00 Test Item Value Reference Range Interpretation Comments UA Leuk Est (test Negative (04/08/16 11:28 code = UA Leuk Est) AM) [facility] [id number] 16:28:00 Test Item Value Reference Range Interpretation Comments UA Nitrite (test code Negative (04/08/16 = UA Nitrite) 11:28 AM) [facility] AND [id number] 16:28:00 Test Item Value Reference Range Interpretation Comments UA Urobilinogen (test code = UA 0.2 0.1-1.0 Urobilinogen) [facility] AND [id number] 16:28:00 Test Item Value Reference Range Interpretation Comments UA Blood (test code = Negative (04/08/16 11:28 UA Blood) AM) [facility] [id number] 16:28:00 Test Item Value Reference Range Interpretation Comments U Preg (test code = U Negative (04/08/16 11:28 Preg) AM) [facility]annCHE[facility] [id number] 16:28:00 Test Item Value Reference Range Interpretation Comments Lipase Lvl (test code = Lipase Lvl) 129 73-393 [facility] YcqzuivQFOZYKXUFXIH3780-04-49 16:28:00 Test Item Value Reference Range Interpretation Comments AGAP (test code = AGAP) 9.5 10.0-20.0 [facility] RguooluFINVJCDIACIZ3292-82-37 16:28:00 Test Item Value Reference Range Interpretation Comments B/C Ratio (test code = B/C Ratio) 8 6-25 [facility] HospitalFbwtgkxFTOGIOLWKMZY7090-68-18 16:28:00 Test Item Value Reference Range Interpretation Comments A/G Ratio (test code = A/G Ratio) 1.2 0.7-1.6 [facility] FdavakgTPLSOFHBXRTW3900-68-95 16:28:00 Test Item Value Reference Range Interpretation Comments Globulin (test code = Globulin) 3.3 2.7-4.2 [facility]NezxofpVSORMVVEIRUY7214-32-97 16:28:00 Test Item Value Reference Range Interpretation Comments CO2 (test code = CO2) 29 24-32 [facility] MichiganIlmknylDAKSMCAMYASB3837-68-83 16:28:00 Test Item Value Reference Range Interpretation Comments Chloride Lvl (test code = Chloride Lvl) 106 95-109 [facility] MichiganKqrfioeGYGRGSGDJGLF1866-19-24 16:28:00 Test Item Value Reference Range Interpretation Comments Bili Total (test code = Bili Total) 0.4 0.2-1.3 [facility] MichiganPcbacfnHHQGHJWSCNAG3812-26-80 16:28:00 Test Item Value Reference Range Interpretation Comments Calcium Lvl (test code = Calcium Lvl) 8.5 8.5-10.5 [facility]XinhmbrPLRSSMSTOEPB3683-64-66 16:28:00 Test Item Value Reference Range Interpretation Comments Total Protein (test code = Total 7.1 6.4-8.4 Protein) [facility]FgsdsalDUCWNSRYLCDW2081-77-75 16:28:00 Test Item Value Reference Range Interpretation Comments ASPARTATE TRANSAMINASE 15 See_Comment [Aut omated message] (test code = ASPARTATE The s ystem which TRANSAMINASE) generated this result transmitted ref erence range: <=37. Th e reference range was not used to interpr et this result as normal/abnormal . [facility] MichiganJsqqljkDEFDTVWSQDYS6448-16-63 16:28:00 Test Item Value Reference Range Interpretation Comments eGFR (test code = eGFR) 117 [facility]JkeovekRBVJMYOJBQIA4936-40-99 16:28:00 Test Item Value Reference Range Interpretation Comments Albumin Lvl (test code = Albumin Lvl) 3.8 3.5-5.0 [facility]BlybqnqQJQELFEMCIGU9441-16-00 16:28:00 Test Item Value Reference Range Interpretation Comments Glucose Lvl (test code = Glucose Lvl) 114 70-99 [facility]OnzrqjwFEZQUXASTSOP8664-83-95 16:28:00 Test Item Value Reference Range Interpretation Comments ALANINE AMINOTRANSFERASE 20 See_Comment [A utomated message] (test code = ALANINE The sys tem which AMINOTRANSFERASE) generated this result transmitted ref erence range: <=65. Th e reference range was not used to int erpret this result as normal/abnormal . [facility]XhardgqLBKXFHCRVKHM2150-08-49 16:28:00 Test Item Value Reference Range Interpretation Comments Alk Phos (test code = Alk Phos) 80 39-136 [facility]LaiwhxmQYFFXTNWKILN3859-36-59 16:28:00 Test Item Value Reference Range Interpretation Comments Potassium Lvl (test code = Potassium 3.5 3.5-5.1 Lvl) [facility]JwntowdSWXZGGNEDPDC1904-12-98 16:28:00 Test Item Value Reference Range Interpretation Comments BUN (test code = BUN) 6 7-22 [facility]BjxkvmoURSLMZSBGLPV5255-55-98 16:28:00 Test Item Value Reference Range Interpretation Comments Sodium Lvl (test code = Sodium Lvl) 141 135-145 [facility]GjnuzyfBIGGPMHOBHSJ6413-84-00 16:28:00 Test Item Value Reference Range Interpretation Comments Creatinine Lvl (test code = Creatinine 0.71 0.50-1.40 Lvl) [facility]FkvfetpLBEXVWFYPQ7524-10-62 16:28:00 Test Item Value Reference Range Interpretation Comments Basophils (test code = 0.3 See_Comment [Aut omated message] The Basophils) system which ge nerated this result tra nsmitted reference range : <=1.0. The reference r bertha was not used to int erpret this result as normal/abnormal . [facility] HospitalKqpyslrHRNUILVKNK7744-75-42 16:28:00 Test Item Value Reference Range Interpretation Comments Eosinophils # (test code 0.1 See_Comment [A utomated message] The = Eosinophils #) system whic h generated this result tra nsmitted reference range : <=0.5. The reference r bertha was not used to int erpret this result as normal/abnormal . [facility] HospitalHculpreINBDSUGNDY0985-95-37 16:28:00 Test Item Value Reference Range Interpretation Comments Segs-Bands # (test code = Segs-Bands #) 10.1 1.5-8.1 [facility] HospitalQrwiiwyIIGFZBNOSX8363-10-85 16:28:00 Test Item Value Reference Range Interpretation Comments Lymphocytes # (test code = Lymphocytes 1.7 1.0-5.5 #) [facility] HospitalBrgidijTDPDIVEGHO5054-79-03 16:28:00 Test Item Value Reference Range Interpretation Comments Monocytes # (test code 0.7 See_Comment [Aut omated message] The = Monocytes #) system which generated this result tra nsmitted reference range : <=0.8. The reference r bertha was not used to int erpret this result as normal/abnormal . [facility] HospitalCkhpmmmQDIZNXJIHS1817-62-79 16:28:00 Test Item Value Reference Range Interpretation Comments Segs (test code = Segs) 80.1 45.0-75.0 [facility] HospitalWeyxbmdRWDZVPWELN4011-85-14 16:28:00 Test Item Value Reference Range Interpretation Comments Monocytes (test code = Monocytes) 5.8 2.0-12.0 [facility] HospitalIgbuigdHAGSAZUYLC1407-25-19 16:28:00 Test Item Value Reference Range Interpretation Comments Eosinophils (test code = 0.6 See_Comment [A utomated message] The Eosinophils) system which ge nerated this result tra nsmitted reference range : <=4.0. The reference r bertha was not used to int erpret this result as normal/abnormal . [facility] HospitalEgtubkpZSMFYNXCOT4047-33-88 16:28:00 Test Item Value Reference Range Interpretation Comments Lymphocytes (test code = Lymphocytes) 13.2 20.0-40.0 [facility] AND [id number] 16:28:00 Test Item Value Reference Range Interpretation Comments UA Sq Epi (test code = UA Sq Epi) Few /LPF [facility] AND [id number] 16:28:00 Test Item Value Reference Range Interpretation Comments UA Spec Grav (test code = UA Spec 1.015 1 Grav) [facility] AND [id number] 16:28:00 Test Item Value Reference Range Interpretation Comments UA Turbidity (test code = Clear (04/08/16 UA Turbidity) 11:28 AM) [facility] AND [id number] 16:28:00 Test Item Value Reference Range Interpretation Comments UA Color (test code = Yellow *NA*(04/08/16 UA Color) 11:28 AM) [facility] AND [id number] 16:28:00 Test Item Value Reference Range Interpretation Comments UA Bili (test code = Negative *NA*(04/08/16 UA Bili) 11:28 AM) [facility] AND [id number] 16:28:00 Test Item Value Reference Range Interpretation Comments UA Ketones (test code = UA Negative mg/dL Ketones) [facility] AND [id number] 16:28:00 Test Item Value Reference Range Interpretation Comments UA Glucose (test code = UA Negative mg/dL Glucose) [facility] [id number] 16:28:00 Test Item Value Reference Range Interpretation Comments UA pH (test code = UA pH) 8.5 1 5.0-8.0 [facility] [id number] 16:28:00 Test Item Value Reference Range Interpretation Comments UA Protein (test code = UA Negative mg/dL Protein) [facility] [id number] 16:28:00 Test Item Value Reference Range Interpretation Comments UA Leuk Est (test Negative (04/08/16 11:28 code = UA Leuk Est) AM) [facility] [id number] 16:28:00 Test Item Value Reference Range Interpretation Comments UA Nitrite (test code Negative (04/08/16 = UA Nitrite) 11:28 AM) [facility] [id number] 16:28:00 Test Item Value Reference Range Interpretation Comments UA Urobilinogen (test code = UA 0.2 0.1-1.0 Urobilinogen) [facility] [id number] 16:28:00 Test Item Value Reference Range Interpretation Comments UA Blood (test code = Negative (04/08/16 11:28 UA Blood) AM) [facility] [id number] 16:28:00 Test Item Value Reference Range Interpretation Comments U Preg (test code = U Negative (04/08/16 11:28 Preg) AM) [facility]annCHEM [id number] 16:28:00 Test Item Value Reference Range Interpretation Comments Lipase Lvl (test code = Lipase Lvl) 129 73-393 [facility] JfcqnwrMDLMQOWUGSWL7359-98-13 16:28:00 Test Item Value Reference Range Interpretation Comments AGAP (test code = AGAP) 9.5 10.0-20.0 [facility] NopertdRSORPNZJVBBM0447-74-90 16:28:00 Test Item Value Reference Range Interpretation Comments B/C Ratio (test code = B/C Ratio) 8 6-25 [facility] VwkonleSHWYZSNDDVKT2056-82-54 16:28:00 Test Item Value Reference Range Interpretation Comments A/G Ratio (test code = A/G Ratio) 1.2 0.7-1.6 [facility]BxpiikaONPKISQVJFJS2541-74-57 16:28:00 Test Item Value Reference Range Interpretation Comments Globulin (test code = Globulin) 3.3 2.7-4.2 [facility] MichiganHiuzkieBFDCCSMTCKLU3056-12-11 16:28:00 Test Item Value Reference Range Interpretation Comments CO2 (test code = CO2) 29 24-32 [facility]LrznkhaUDVTXZVKASRB6019-23-88 16:28:00 Test Item Value Reference Range Interpretation Comments Chloride Lvl (test code = Chloride Lvl) 106 95-109 [facility]TrfgnogPFMZHZRMZVOM1113-79-99 16:28:00 Test Item Value Reference Range Interpretation Comments Bili Total (test code = Bili Total) 0.4 0.2-1.3 [facility]MeeyyhgZJACRRNYLHTK2213-18-47 16:28:00 Test Item Value Reference Range Interpretation Comments Calcium Lvl (test code = Calcium Lvl) 8.5 8.5-10.5 [facility]WxwthomCNGUVLKWCVXP0521-24-22 16:28:00 Test Item Value Reference Range Interpretation Comments Total Protein (test code = Total 7.1 6.4-8.4 Protein) [facility]LrqpbpbJUYCSQNRYAFC5260-02-14 16:28:00 Test Item Value Reference Range Interpretation Comments ASPARTATE TRANSAMINASE 15 See_Comment [Aut omated message] (test code = ASPARTATE The s ystem which TRANSAMINASE) generated this result transmitted ref erence range: <=37. Th e reference range was not used to interpr et this result as normal/abnormal . [facility] MichiganToptnzyKXCGJXOHFUHT5024-89-97 16:28:00 Test Item Value Reference Range Interpretation Comments eGFR (test code = eGFR) 117 [facility] MichiganTisoqtxFTNTIXIWXZEI4057-72-54 16:28:00 Test Item Value Reference Range Interpretation Comments Albumin Lvl (test code = Albumin Lvl) 3.8 3.5-5.0 [facility]MmwoevmDSMVOXNRCLTR2852-55-37 16:28:00 Test Item Value Reference Range Interpretation Comments Glucose Lvl (test code = Glucose Lvl) 114 70-99 [facility]EchwmofWFQVUDKSNSIV7537-07-37 16:28:00 Test Item Value Reference Range Interpretation Comments ALANINE AMINOTRANSFERASE 20 See_Comment [A utomated message] (test code = ALANINE The sys tem which AMINOTRANSFERASE) generated this result transmitted ref erence range: <=65. Th e reference range was not used to int erpret this result as normal/abnormal . [facility]IywozviTURXXLXGSOUN7695-63-10 16:28:00 Test Item Value Reference Range Interpretation Comments Alk Phos (test code = Alk Phos) 80 39-136 [facility]CrblhobPCVHWFRPQCAG7303-75-99 16:28:00 Test Item Value Reference Range Interpretation Comments Potassium Lvl (test code = Potassium 3.5 3.5-5.1 Lvl) [facility]SfpugooZPJAXYIIEJKN8413-74-24 16:28:00 Test Item Value Reference Range Interpretation Comments BUN (test code = BUN) 6 7-22 [facility]2016-10-27 16:28:00 Test Item Value Reference Range Interpretation Comments Lipase Lvl (test code = Lipase Lvl) 129 73-393 [facility]PthmkekBIZMOOVUNZDA6868-96-92 16:28:00 Test Item Value Reference Range Interpretation Comments AGAP (test code = AGAP) 9.5 10.0-20.0 [facility] MichiganMazsjnuSEGMVOQXUMTN0416-02-85 16:28:00 Test Item Value Reference Range Interpretation Comments B/C Ratio (test code = B/C Ratio) 8 6-25 [facility]AercyvqIMIMDOJTMXFG1728-91-30 16:28:00 Test Item Value Reference Range Interpretation Comments A/G Ratio (test code = A/G Ratio) 1.2 0.7-1.6 [facility]XkgpsggRHTEXWOVQZHZ4026-64-99 16:28:00 Test Item Value Reference Range Interpretation Comments Globulin (test code = Globulin) 3.3 2.7-4.2 [facility]SwcqiimPIVPSTNNJVNK2794-34-87 16:28:00 Test Item Value Reference Range Interpretation Comments CO2 (test code = CO2) 29 24-32 [facility]CfrwslyCCNQGKGMKDMY3935-27-67 16:28:00 Test Item Value Reference Range Interpretation Comments Chloride Lvl (test code = Chloride Lvl) 106 95-109 [facility]FmwocjuRPHQZIFYNEYD6530-55-47 16:28:00 Test Item Value Reference Range Interpretation Comments Bili Total (test code = Bili Total) 0.4 0.2-1.3 [facility]XdqtawbADPXAQNALFLL7294-14-91 16:28:00 Test Item Value Reference Range Interpretation Comments Sodium Lvl (test code = Sodium Lvl) 141 135-145 [facility]IkedzrePHJPROLCVEEG6614-19-87 16:28:00 Test Item Value Reference Range Interpretation Comments Calcium Lvl (test code = Calcium Lvl) 8.5 8.5-10.5 [facility]OypfbphQJDROIJLFMHC0004-65-25 16:28:00 Test Item Value Reference Range Interpretation Comments Total Protein (test code = Total 7.1 6.4-8.4 Protein) [facility] MichiganQxigifnPTOTFYENALEM5084-35-31 16:28:00 Test Item Value Reference Range Interpretation Comments ASPARTATE TRANSAMINASE 15 See_Comment [Aut omated message] (test code = ASPARTATE The s ystem which TRANSAMINASE) generated this result transmitted ref erence range: <=37. Th e reference range was not used to interpr et this result as normal/abnormal . [facility] MichiganHzxjsxuSVUSXAGBAVSM8017-69-20 16:28:00 Test Item Value Reference Range Interpretation Comments eGFR (test code = eGFR) 117 [facility] MichiganBsztajlTZYWLYQFGJDI5402-17-13 16:28:00 Test Item Value Reference Range Interpretation Comments Albumin Lvl (test code = Albumin Lvl) 3.8 3.5-5.0 [facility] MichiganRyfobjeMEKUDTOWMWUF8049-26-24 16:28:00 Test Item Value Reference Range Interpretation Comments Glucose Lvl (test code = Glucose Lvl) 114 70-99 [facility]QihespxUFGKHFFCGLRN9179-65-26 16:28:00 Test Item Value Reference Range Interpretation Comments ALANINE AMINOTRANSFERASE 20 See_Comment [A utomated message] (test code = ALANINE The sys tem which AMINOTRANSFERASE) generated this result transmitted ref erence range: <=65. Th e reference range was not used to int erpret this result as normal/abnormal . [facility] MichiganCkgbeqxYYDYAWTDLAHQ8386-31-04 16:28:00 Test Item Value Reference Range Interpretation Comments Alk Phos (test code = Alk Phos) 80 39-136 [facility]QqjzppoDWUIKDWOPVCD5505-74-18 16:28:00 Test Item Value Reference Range Interpretation Comments Potassium Lvl (test code = Potassium 3.5 3.5-5.1 Lvl) [facility]JjyiaorPOEOBNLVGBKI9391-79-12 16:28:00 Test Item Value Reference Range Interpretation Comments BUN (test code = BUN) 6 7-22 [facility] MichiganRoazyaxVQSEZLIPRFHF3456-57-59 16:28:00 Test Item Value Reference Range Interpretation Comments Creatinine Lvl (test code = Creatinine 0.71 0.50-1.40 Lvl) [facility] MichiganBphhfpcUQBCOSJYWBFW9693-51-58 16:28:00 Test Item Value Reference Range Interpretation Comments Sodium Lvl (test code = Sodium Lvl) 141 135-145 [facility]YzgrkubCQDNFRDASCHK4905-89-58 16:28:00 Test Item Value Reference Range Interpretation Comments Creatinine Lvl (test code = Creatinine 0.71 0.50-1.40 Lvl) [facility] HospitalXrdoqbkVUFRDGLKWL5052-67-53 16:28:00 Test Item Value Reference Range Interpretation Comments Basophils (test code = 0.3 See_Comment [Aut omated message] The Basophils) system which ge nerated this result tra nsmitted reference range : <=1.0. The reference r bertha was not used to int erpret this result as normal/abnormal . [facility] HospitalWfnnpssNLHBPESQVQ4516-10-72 16:28:00 Test Item Value Reference Range Interpretation Comments Eosinophils # (test code 0.1 See_Comment [A utomated message] The = Eosinophils #) system whic h generated this result tra nsmitted reference range : <=0.5. The reference r bertha was not used to int erpret this result as normal/abnormal . [facility] HospitalTyywoofIRWVEWYBOO5755-39-37 16:28:00 Test Item Value Reference Range Interpretation Comments Segs-Bands # (test code = Segs-Bands #) 10.1 1.5-8.1 [facility] HospitalVprrvbtOFYVEENDVF2380-45-25 16:28:00 Test Item Value Reference Range Interpretation Comments Lymphocytes # (test code = Lymphocytes 1.7 1.0-5.5 #) [facility] HospitalJdziovfSAGVUFOLGA7965-19-53 16:28:00 Test Item Value Reference Range Interpretation Comments Monocytes # (test code 0.7 See_Comment [Aut omated message] The = Monocytes #) system which generated this result tra nsmitted reference range : <=0.8. The reference r bertha was not used to int erpret this result as normal/abnormal . [facility] HospitalWncvfgcTSVUSOSBBH0714-21-67 16:28:00 Test Item Value Reference Range Interpretation Comments Segs (test code = Segs) 80.1 45.0-75.0 [facility] HospitalIjvimovKRYIQRNOIS7373-44-55 16:28:00 Test Item Value Reference Range Interpretation Comments Monocytes (test code = Monocytes) 5.8 2.0-12.0 [facility] HospitalLqncgpiJUBKXTAMRV4055-88-35 16:28:00 Test Item Value Reference Range Interpretation Comments Eosinophils (test code = 0.6 See_Comment [A utomated message] The Eosinophils) system which ge nerated this result tra nsmitted reference range : <=4.0. The reference r bertha was not used to int erpret this result as normal/abnormal . [facility] HospitalRgcfupoRGCTCECRTC7418-85-87 16:28:00 Test Item Value Reference Range Interpretation Comments Basophils (test code = 0.3 See_Comment [Aut omated message] The Basophils) system which ge nerated this result tra nsmitted reference range : <=1.0. The reference r bertha was not used to int erpret this result as normal/abnormal . [facility] HospitalMghcfslCJLDJSERTV0241-74-78 16:28:00 Test Item Value Reference Range Interpretation Comments Lymphocytes (test code = Lymphocytes) 13.2 20.0-40.0 [facility] AND [id number] 16:28:00 Test Item Value Reference Range Interpretation Comments UA Sq Epi (test code = UA Sq Epi) Few /LPF [facility] AND [id number] 16:28:00 Test Item Value Reference Range Interpretation Comments UA Spec Grav (test code = UA Spec 1.015 1 Grav) [facility] AND [id number] 16:28:00 Test Item Value Reference Range Interpretation Comments UA Turbidity (test code = Clear (04/08/16 UA Turbidity) 11:28 AM) [facility] AND [id number] 16:28:00 Test Item Value Reference Range Interpretation Comments UA Color (test code = Yellow *NA*(04/08/16 UA Color) 11:28 AM) [facility] AND [id number] 16:28:00 Test Item Value Reference Range Interpretation Comments UA Bili (test code = Negative *NA*(04/08/16 UA Bili) 11:28 AM) [facility] AND [id number] 16:28:00 Test Item Value Reference Range Interpretation Comments UA Ketones (test code = UA Negative mg/dL Ketones) [facility] AND [id number] 16:28:00 Test Item Value Reference Range Interpretation Comments UA Glucose (test code = UA Negative mg/dL Glucose) [facility] AND [id number] 16:28:00 Test Item Value Reference Range Interpretation Comments UA pH (test code = UA pH) 8.5 1 5.0-8.0 [facility] AND [id number] 16:28:00 Test Item Value Reference Range Interpretation Comments UA Protein (test code = UA Negative mg/dL Protein) [facility]ElpjunfOAOJHGCNHK2910-63-72 16:28:00 Test Item Value Reference Range Interpretation Comments Eosinophils # (test code 0.1 See_Comment [A utomated message] The = Eosinophils #) system Five minutes h generated this result tra nsmitted reference range : <=0.5. The reference r bertha was not used to int erpret this result as normal/abnormal . [facility] AND [id number] 16:28:00 Test Item Value Reference Range Interpretation Comments UA Leuk Est (test Negative (04/08/16 11:28 code = UA Leuk Est) AM) [facility] AND [id number] 16:28:00 Test Item Value Reference Range Interpretation Comments UA Nitrite (test code Negative (04/08/16 = UA Nitrite) 11:28 AM) [facility] AND [id number] 16:28:00 Test Item Value Reference Range Interpretation Comments UA Urobilinogen (test code = UA 0.2 0.1-1.0 Urobilinogen) [facility] AND [id number] 16:28:00 Test Item Value Reference Range Interpretation Comments UA Blood (test code = Negative (04/08/16 11:28 UA Blood) AM) [facility] [id number] 16:28:00 Test Item Value Reference Range Interpretation Comments U Preg (test code = U Negative (04/08/16 11:28 Preg) AM) [facility]doZASZRRHGUG3771-73-37 16:28:00 Test Item Value Reference Range Interpretation Comments Segs-Bands # (test code = Segs-Bands #) 10.1 1.5-8.1 [facility] HospitalAnvttgnFDIUQNEEEL5907-70-01 16:28:00 Test Item Value Reference Range Interpretation Comments Lymphocytes # (test code = Lymphocytes 1.7 1.0-5.5 #) [facility] HospitalHbntiuoXZUQVWVWTY7405-86-31 16:28:00 Test Item Value Reference Range Interpretation Comments Monocytes # (test code 0.7 See_Comment [Aut omated message] The = Monocytes #) system which generated this result tra nsmitted reference range : <=0.8. The reference r bertha was not used to int erpret this result as normal/abnormal . [facility] HospitalGtrlxcyERNNDBWFPD5499-66-88 16:28:00 Test Item Value Reference Range Interpretation Comments Segs (test code = Segs) 80.1 45.0-75.0 [facility] HospitalYtcxvfyCQSDDAXSRC4063-66-54 16:28:00 Test Item Value Reference Range Interpretation Comments Monocytes (test code = Monocytes) 5.8 2.0-12.0 [facility] HospitalDpbpvpoQRRPUKZHTK1034-35-96 16:28:00 Test Item Value Reference Range Interpretation Comments Eosinophils (test code = 0.6 See_Comment [A utomated message] The Eosinophils) system which ge nerated this result tra nsmitted reference range : <=4.0. The reference r bertha was not used to int erpret this result as normal/abnormal . [facility] HospitalKjsqhveWPIGTWEAEZ6349-98-91 16:28:00 Test Item Value Reference Range Interpretation Comments Lymphocytes (test code = Lymphocytes) 13.2 20.0-40.0 [facility] AND [id number] 16:28:00 Test Item Value Reference Range Interpretation Comments UA Sq Epi (test code = UA Sq Epi) Few /LPF [facility] AND [id number] 16:28:00 Test Item Value Reference Range Interpretation Comments UA Spec Grav (test code = UA Spec 1.015 1 Grav) [facility] AND [id number] 16:28:00 Test Item Value Reference Range Interpretation Comments UA Turbidity (test code = Clear (04/08/16 UA Turbidity) 11:28 AM) [facility] AND [id number] 16:28:00 Test Item Value Reference Range Interpretation Comments UA Color (test code = Yellow *NA*(04/08/16 UA Color) 11:28 AM) [facility] [id number] 16:28:00 Test Item Value Reference Range Interpretation Comments UA Bili (test code = Negative *NA*(04/08/16 UA Bili) 11:28 AM) [facility] [id number] 16:28:00 Test Item Value Reference Range Interpretation Comments UA Ketones (test code = UA Negative mg/dL Ketones) [facility] [id number] 16:28:00 Test Item Value Reference Range Interpretation Comments UA Glucose (test code = UA Negative mg/dL Glucose) [facility] [id number] 16:28:00 Test Item Value Reference Range Interpretation Comments UA pH (test code = UA pH) 8.5 1 5.0-8.0 [facility] [id number] 16:28:00 Test Item Value Reference Range Interpretation Comments UA Protein (test code = UA Negative mg/dL Protein) [facility] [id number] 16:28:00 Test Item Value Reference Range Interpretation Comments UA Leuk Est (test Negative (04/08/16 11:28 code = UA Leuk Est) AM) [facility] [id number] 16:28:00 Test Item Value Reference Range Interpretation Comments UA Nitrite (test code Negative (04/08/16 = UA Nitrite) 11:28 AM) [facility] [id number] 16:28:00 Test Item Value Reference Range Interpretation Comments UA Urobilinogen (test code = UA 0.2 0.1-1.0 Urobilinogen) [facility] AND [id number] 16:28:00 Test Item Value Reference Range Interpretation Comments UA Blood (test code = Negative (04/08/16 11:28 UA Blood) AM) [facility] [id number] 16:28:00 Test Item Value Reference Range Interpretation Comments U Preg (test code = U Negative (04/08/16 11:28 Preg) AM) [facility] [id number] 16:28:00 Test Item Value Reference Range Interpretation Comments Lipase Lvl (test code = Lipase Lvl) 129 73-393 [facility] UsekfzhLRQNGWFZEQJA9190-75-12 16:28:00 Test Item Value Reference Range Interpretation Comments AGAP (test code = AGAP) 9.5 10.0-20.0 [facility]FrbnnuoMQBREQYXMLCE7483-10-38 16:28:00 Test Item Value Reference Range Interpretation Comments B/C Ratio (test code = B/C Ratio) 8 6-25 [facility]ZaizscmDSGVFWSDGDIY0522-65-14 16:28:00 Test Item Value Reference Range Interpretation Comments A/G Ratio (test code = A/G Ratio) 1.2 0.7-1.6 [facility]WxyzpoaOBXRFUOXWMUH4375-92-17 16:28:00 Test Item Value Reference Range Interpretation Comments Globulin (test code = Globulin) 3.3 2.7-4.2 [facility]PhtmohtEFVWDNOHSRXJ1598-80-41 16:28:00 Test Item Value Reference Range Interpretation Comments CO2 (test code = CO2) 29 24-32 [facility]AcsquqcDTEQMMMCSTJE1911-58-81 16:28:00 Test Item Value Reference Range Interpretation Comments Chloride Lvl (test code = Chloride Lvl) 106 95-109 [facility]EhbnlzjCFSZHMWABVKH5457-86-50 16:28:00 Test Item Value Reference Range Interpretation Comments Bili Total (test code = Bili Total) 0.4 0.2-1.3 [facility]WmmawrsZEHVSNHKVTPV1012-28-97 16:28:00 Test Item Value Reference Range Interpretation Comments Calcium Lvl (test code = Calcium Lvl) 8.5 8.5-10.5 [facility]PofkmepRCECNJOTLBTA3192-94-51 16:28:00 Test Item Value Reference Range Interpretation Comments Total Protein (test code = Total 7.1 6.4-8.4 Protein) [facility] MichiganZcbxaagHWOBYDXEULDA6677-64-51 16:28:00 Test Item Value Reference Range Interpretation Comments ASPARTATE TRANSAMINASE 15 See_Comment [Aut omated message] (test code = ASPARTATE The s ystem which TRANSAMINASE) generated this result transmitted ref erence range: <=37. Th e reference range was not used to interpr et this result as normal/abnormal . [facility] MichiganGuvmgbyXEVLKXPHWSPF8388-05-40 16:28:00 Test Item Value Reference Range Interpretation Comments eGFR (test code = eGFR) 117 [facility]TgfuxqtKBHYEECHJYKB4211-50-00 16:28:00 Test Item Value Reference Range Interpretation Comments Albumin Lvl (test code = Albumin Lvl) 3.8 3.5-5.0 [facility]KlafczhIXDUOYYXXIIZ8310-76-41 16:28:00 Test Item Value Reference Range Interpretation Comments Glucose Lvl (test code = Glucose Lvl) 114 70-99 [facility] MichiganVhkxkpgLNYTVUGWKCZA4620-30-40 16:28:00 Test Item Value Reference Range Interpretation Comments ALANINE AMINOTRANSFERASE 20 See_Comment [A utomated message] (test code = ALANINE The sys tem which AMINOTRANSFERASE) generated this result transmitted ref erence range: <=65. Th e reference range was not used to int erpret this result as normal/abnormal . [facility] MichiganFqivnmxIBQXPSOFCIOB0190-63-42 16:28:00 Test Item Value Reference Range Interpretation Comments Alk Phos (test code = Alk Phos) 80 39-136 [facility]PkaswyxAQNGOEVRVZTB5706-49-89 16:28:00 Test Item Value Reference Range Interpretation Comments Potassium Lvl (test code = Potassium 3.5 3.5-5.1 Lvl) [facility]XdrfhjpOWHBLKIEJVKI9053-08-94 16:28:00 Test Item Value Reference Range Interpretation Comments BUN (test code = BUN) 6 7-22 [facility]EjtxydkEQNKKJRCMHGQ9841-35-06 16:28:00 Test Item Value Reference Range Interpretation Comments Sodium Lvl (test code = Sodium Lvl) 141 135-145 [facility]AjvjquyZDOUCCWXFCMQ0162-14-69 16:28:00 Test Item Value Reference Range Interpretation Comments Creatinine Lvl (test code = Creatinine 0.71 0.50-1.40 Lvl) [facility]JnueotpXJUDRHHGII5489-[facility]-20 16:28:00 Test Item Value Reference Range Interpretation Comments Basophils (test code = 0.3 See_Comment [Aut omated message] The Basophils) system which ge nerated this result tra nsmitted reference range : <=1.0. The reference r bertha was not used to int erpret this result as normal/abnormal . [facility] HospitalYjhxhdtCOVNRJNJHA6857-15-07 16:28:00 Test Item Value Reference Range Interpretation Comments Eosinophils # (test code 0.1 See_Comment [A utomated message] The = Eosinophils #) system whic h generated this result tra nsmitted reference range : <=0.5. The reference r bertha was not used to int erpret this result as normal/abnormal . [facility] HospitalOtdehgpFVELVESVTF8049-01-44 16:28:00 Test Item Value Reference Range Interpretation Comments Segs-Bands # (test code = Segs-Bands #) 10.1 1.5-8.1 [facility] HospitalOikvobxTWLMQGHVOR1081-23-45 16:28:00 Test Item Value Reference Range Interpretation Comments Lymphocytes # (test code = Lymphocytes 1.7 1.0-5.5 #) [facility] HospitalNlthujbOINDHFNKNZ2191-04-01 16:28:00 Test Item Value Reference Range Interpretation Comments Monocytes # (test code 0.7 See_Comment [Aut omated message] The = Monocytes #) system which generated this result tra nsmitted reference range : <=0.8. The reference r bertha was not used to int erpret this result as normal/abnormal . [facility] HospitalSahpqcdLUJATNOQLD2558-43-55 16:28:00 Test Item Value Reference Range Interpretation Comments Segs (test code = Segs) 80.1 45.0-75.0 [facility] HospitalIgmqrzvEODWUXHTZU8442-32-59 16:28:00 Test Item Value Reference Range Interpretation Comments Monocytes (test code = Monocytes) 5.8 2.0-12.0 [facility] HospitalZijmkjgJXXBHMVBWL0024-58-40 16:28:00 Test Item Value Reference Range Interpretation Comments Eosinophils (test code = 0.6 See_Comment [A utomated message] The Eosinophils) system which ge nerated this result tra nsmitted reference range : <=4.0. The reference r bertha was not used to int erpret this result as normal/abnormal . [facility] HospitalEkddmkuKJBGEAJKCW2572-72-65 16:28:00 Test Item Value Reference Range Interpretation Comments Lymphocytes (test code = Lymphocytes) 13.2 20.0-40.0 [facility] AND [id number] 16:28:00 Test Item Value Reference Range Interpretation Comments UA Sq Epi (test code = UA Sq Epi) Few /LPF [facility] AND [id number] 16:28:00 Test Item Value Reference Range Interpretation Comments UA Spec Grav (test code = UA Spec 1.015 1 Grav) [facility] AND [id number] 16:28:00 Test Item Value Reference Range Interpretation Comments UA Turbidity (test code = Clear (04/08/16 UA Turbidity) 11:28 AM) [facility] AND [id number] 16:28:00 Test Item Value Reference Range Interpretation Comments UA Color (test code = Yellow *NA*(04/08/16 UA Color) 11:28 AM) [facility] AND [id number] 16:28:00 Test Item Value Reference Range Interpretation Comments UA Bili (test code = Negative *NA*(04/08/16 UA Bili) 11:28 AM) [facility] AND [id number] 16:28:00 Test Item Value Reference Range Interpretation Comments UA Ketones (test code = UA Negative mg/dL Ketones) [facility] AND [id number] 16:28:00 Test Item Value Reference Range Interpretation Comments UA Glucose (test code = UA Negative mg/dL Glucose) [facility] AND [id number] 16:28:00 Test Item Value Reference Range Interpretation Comments UA pH (test code = UA pH) 8.5 1 5.0-8.0 [facility] AND [id number] 16:28:00 Test Item Value Reference Range Interpretation Comments UA Protein (test code = UA Negative mg/dL Protein) [facility] AND [id number] 16:28:00 Test Item Value Reference Range Interpretation Comments UA Leuk Est (test Negative (04/08/16 11:28 code = UA Leuk Est) AM) [facility] AND [id number] 16:28:00 Test Item Value Reference Range Interpretation Comments UA Nitrite (test code Negative (04/08/16 = UA Nitrite) 11:28 AM) [facility] AND [id number] 16:28:00 Test Item Value Reference Range Interpretation Comments UA Urobilinogen (test code = UA 0.2 0.1-1.0 Urobilinogen) [facility] AND [id number] 16:28:00 Test Item Value Reference Range Interpretation Comments UA Blood (test code = Negative (04/08/16 11:28 UA Blood) AM) [facility] [id number] 16:28:00 Test Item Value Reference Range Interpretation Comments U Preg (test code = U Negative (04/08/16 11:28 Preg) AM) [facility] [id number] 16:28:00 Test Item Value Reference Range Interpretation Comments Lipase Lvl (test code = Lipase Lvl) 129 73-393 [facility]EhuxdlmXNETZRIWFJPS4687-44-54 16:28:00 Test Item Value Reference Range Interpretation Comments AGAP (test code = AGAP) 9.5 10.0-20.0 [facility]SceiojfIMFQVGPXTIQI4528-27-60 16:28:00 Test Item Value Reference Range Interpretation Comments B/C Ratio (test code = B/C Ratio) 8 6-25 [facility] MichiganNlgtonzDRTZCCCPWCED6487-57-01 16:28:00 Test Item Value Reference Range Interpretation Comments A/G Ratio (test code = A/G Ratio) 1.2 0.7-1.6 [facility]EglmwmcDQXGIYUOQLTO3390-70-61 16:28:00 Test Item Value Reference Range Interpretation Comments Globulin (test code = Globulin) 3.3 2.7-4.2 [facility] MichiganQogifkyMASWVLNIFTXK8000-51-85 16:28:00 Test Item Value Reference Range Interpretation Comments CO2 (test code = CO2) 29 24-32 [facility]AuzhvsiMJQAUPRXRCYH6097-83-45 16:28:00 Test Item Value Reference Range Interpretation Comments Chloride Lvl (test code = Chloride Lvl) 106 95-109 [facility] MichiganGflzlrhJBTTZXGIDRCK6780-20-46 16:28:00 Test Item Value Reference Range Interpretation Comments Bili Total (test code = Bili Total) 0.4 0.2-1.3 [facility] MichiganAlsytkaQWLCODEPCNKN5680-10-76 16:28:00 Test Item Value Reference Range Interpretation Comments Calcium Lvl (test code = Calcium Lvl) 8.5 8.5-10.5 [facility]MfufrtfMZQDVMIYZQCQ5051-86-30 16:28:00 Test Item Value Reference Range Interpretation Comments Total Protein (test code = Total 7.1 6.4-8.4 Protein) [facility]AcifwskQFNLLUVRQHHI9579-29-82 16:28:00 Test Item Value Reference Range Interpretation Comments ASPARTATE TRANSAMINASE 15 See_Comment [Aut omated message] (test code = ASPARTATE The s ystem which TRANSAMINASE) generated this result transmitted ref erence range: <=37. Th e reference range was not used to interpr et this result as normal/abnormal . [facility] MichiganQiiwmohGXQVXPININXZ1822-81-76 16:28:00 Test Item Value Reference Range Interpretation Comments eGFR (test code = eGFR) 117 [facility]OuspvdlHOYCXQYOWDVL4924-20-83 16:28:00 Test Item Value Reference Range Interpretation Comments Albumin Lvl (test code = Albumin Lvl) 3.8 3.5-5.0 [facility]YqwnoadRLARVXUABLCV8957-92-72 16:28:00 Test Item Value Reference Range Interpretation Comments Glucose Lvl (test code = Glucose Lvl) 114 70-99 [facility] MichiganHvsjmdsVPBEJFLQCKTD6991-19-11 16:28:00 Test Item Value Reference Range Interpretation Comments ALANINE AMINOTRANSFERASE 20 See_Comment [A utomated message] (test code = ALANINE The sys tem which AMINOTRANSFERASE) generated this result transmitted ref erence range: <=65. Th e reference range was not used to int erpret this result as normal/abnormal . [facility] MichiganPbmpzodJLYREXGZDCOM1642-04-06 16:28:00 Test Item Value Reference Range Interpretation Comments Alk Phos (test code = Alk Phos) 80 39-136 [facility] MichiganLqgytcyYBPDHHWHUFIR0720-64-91 16:28:00 Test Item Value Reference Range Interpretation Comments Potassium Lvl (test code = Potassium 3.5 3.5-5.1 Lvl) [facility]JhebrjpIZGGVBSFEHDS8178-58-05 16:28:00 Test Item Value Reference Range Interpretation Comments BUN (test code = BUN) 6 7-22 [facility]IoqvhmnOTBFMIGFPJWB7955-91-89 16:28:00 Test Item Value Reference Range Interpretation Comments Sodium Lvl (test code = Sodium Lvl) 141 135-145 [facility]NeylywlYMHBBTQDWFOJ0438-62-27 16:28:00 Test Item Value Reference Range Interpretation Comments Creatinine Lvl (test code = Creatinine 0.71 0.50-1.40 Lvl) [facility] HospitalBosyhmlOTEULFVXYG7806-19-80 16:28:00 Test Item Value Reference Range Interpretation Comments Basophils (test code = 0.3 See_Comment [Aut omated message] The Basophils) system which ge nerated this result tra nsmitted reference range : <=1.0. The reference r bertha was not used to int erpret this result as normal/abnormal . [facility] HospitalFcnsvkeXHGFPANYBQ8944-88-63 16:28:00 Test Item Value Reference Range Interpretation Comments Eosinophils # (test code 0.1 See_Comment [A utomated message] The = Eosinophils #) system whic h generated this result tra nsmitted reference range : <=0.5. The reference r bertha was not used to int erpret this result as normal/abnormal . [facility] HospitalLjphjixSQSSAANLTG6806-19-26 16:28:00 Test Item Value Reference Range Interpretation Comments Segs-Bands # (test code = Segs-Bands #) 10.1 1.5-8.1 [facility] HospitalBgnhtagAQEPMYFTTM7184-34-79 16:28:00 Test Item Value Reference Range Interpretation Comments Lymphocytes # (test code = Lymphocytes 1.7 1.0-5.5 #) [facility] HospitalCzsovpuSUTGABXIML5986-36-84 16:28:00 Test Item Value Reference Range Interpretation Comments Monocytes # (test code 0.7 See_Comment [Aut omated message] The = Monocytes #) system which generated this result tra nsmitted reference range : <=0.8. The reference r bertha was not used to int erpret this result as normal/abnormal . [facility] HospitalFvelvrrQLWRPWBWKA8832-87-01 16:28:00 Test Item Value Reference Range Interpretation Comments Segs (test code = Segs) 80.1 45.0-75.0 [facility] HospitalSmjdtgbSBSPJSNGXX8709-57-60 16:28:00 Test Item Value Reference Range Interpretation Comments Monocytes (test code = Monocytes) 5.8 2.0-12.0 [facility] HospitalVpbjlgtLRZDKRYXRM2271-29-23 16:28:00 Test Item Value Reference Range Interpretation Comments Eosinophils (test code = 0.6 See_Comment [A utomated message] The Eosinophils) system which ge nerated this result tra nsmitted reference range : <=4.0. The reference r bertha was not used to int erpret this result as normal/abnormal . [facility] HospitalOdrqpdxDXPRXYKTJG5736-24-07 16:28:00 Test Item Value Reference Range Interpretation Comments Lymphocytes (test code = Lymphocytes) 13.2 20.0-40.0 [facility]2016-10-27 16:28:00 Test Item Value Reference Range Interpretation Comments UA Sq Epi (test code = UA Sq Epi) Few /LPF [facility]2016-10-27 16:28:00 Test Item Value Reference Range Interpretation Comments UA Spec Grav (test code = UA Spec 1.015 1 Grav) [facility] AND [id number] 16:28:00 Test Item Value Reference Range Interpretation Comments UA Turbidity (test code = Clear (04/08/16 UA Turbidity) 11:28 AM) [facility] AND [id number] 16:28:00 Test Item Value Reference Range Interpretation Comments UA Color (test code = Yellow *NA*(04/08/16 UA Color) 11:28 AM) [facility] AND [id number] 16:28:00 Test Item Value Reference Range Interpretation Comments UA Bili (test code = Negative *NA*(04/08/16 UA Bili) 11:28 AM) [facility] AND [id number] 16:28:00 Test Item Value Reference Range Interpretation Comments UA Ketones (test code = UA Negative mg/dL Ketones) [facility] AND [id number] 16:28:00 Test Item Value Reference Range Interpretation Comments UA Glucose (test code = UA Negative mg/dL Glucose) [facility] AND [id number] 16:28:00 Test Item Value Reference Range Interpretation Comments UA pH (test code = UA pH) 8.5 1 5.0-8.0 [facility] AND [id number] 16:28:00 Test Item Value Reference Range Interpretation Comments UA Protein (test code = UA Negative mg/dL Protein) [facility] AND [id number] 16:28:00 Test Item Value Reference Range Interpretation Comments UA Leuk Est (test Negative (04/08/16 11:28 code = UA Leuk Est) AM) [facility] AND [id number] 16:28:00 Test Item Value Reference Range Interpretation Comments UA Nitrite (test code Negative (04/08/16 = UA Nitrite) 11:28 AM) [facility] AND [id number] 16:28:00 Test Item Value Reference Range Interpretation Comments UA Urobilinogen (test code = UA 0.2 0.1-1.0 Urobilinogen) [facility] AND [id number] 16:28:00 Test Item Value Reference Range Interpretation Comments UA Blood (test code = Negative (04/08/16 11:28 UA Blood) AM) [facility] [id number] 16:28:00 Test Item Value Reference Range Interpretation Comments U Preg (test code = U Negative (04/08/16 11:28 Preg) AM) [facility] [id number] 16:28:00 Test Item Value Reference Range Interpretation Comments Lipase Lvl (test code = Lipase Lvl) 129 73-393 [facility]RwzvunvVVPPYBQNZTFH0961-24-60 16:28:00 Test Item Value Reference Range Interpretation Comments AGAP (test code = AGAP) 9.5 10.0-20.0 [facility]PpgjmhlVCKFUBPNEYEN2085-35-68 16:28:00 Test Item Value Reference Range Interpretation Comments B/C Ratio (test code = B/C Ratio) 8 6-25 [facility]GdyjbbgVZAKSWXALKUX9606-64-05 16:28:00 Test Item Value Reference Range Interpretation Comments A/G Ratio (test code = A/G Ratio) 1.2 0.7-1.6 [facility]FfzgczdLMBWPLORFPLO3530-55-98 16:28:00 Test Item Value Reference Range Interpretation Comments Globulin (test code = Globulin) 3.3 2.7-4.2 [facility] MichiganMohnceeWSWRBBCJVTTR2875-44-29 16:28:00 Test Item Value Reference Range Interpretation Comments CO2 (test code = CO2) 29 24-32 [facility] MichiganDfvvfuwRPPKMRGCWPWE2325-41-40 16:28:00 Test Item Value Reference Range Interpretation Comments Chloride Lvl (test code = Chloride Lvl) 106 95-109 [facility] MichiganNhnvxaqFVWRQWAENMBV6106-74-83 16:28:00 Test Item Value Reference Range Interpretation Comments Bili Total (test code = Bili Total) 0.4 0.2-1.3 [facility] MichiganCsivtdbXHGDDFNPLRZE5502-93-63 16:28:00 Test Item Value Reference Range Interpretation Comments Calcium Lvl (test code = Calcium Lvl) 8.5 8.5-10.5 [facility] MichiganVqtgkdiLDDPZAHUMUIR8442-25-34 16:28:00 Test Item Value Reference Range Interpretation Comments Total Protein (test code = Total 7.1 6.4-8.4 Protein) [facility] MichiganTolufseAFTLPYLCRHPH9520-15-03 16:28:00 Test Item Value Reference Range Interpretation Comments ASPARTATE TRANSAMINASE 15 See_Comment [Aut omated message] (test code = ASPARTATE The s ystem which TRANSAMINASE) generated this result transmitted ref erence range: <=37. Th e reference range was not used to interpr et this result as normal/abnormal . [facility]FpoijcqEBYKFSLRCSBO3990-16-48 16:28:00 Test Item Value Reference Range Interpretation Comments eGFR (test code = eGFR) 117 [facility] MichiganLfnzjxtFAAFJDUFKOVX6171-54-86 16:28:00 Test Item Value Reference Range Interpretation Comments Albumin Lvl (test code = Albumin Lvl) 3.8 3.5-5.0 [facility] MichiganZglyxihORRBLPOLSMBX0759-01-58 16:28:00 Test Item Value Reference Range Interpretation Comments Glucose Lvl (test code = Glucose Lvl) 114 70-99 [facility]VyfkqnwGEFSFEJBPEEE7653-22-20 16:28:00 Test Item Value Reference Range Interpretation Comments ALANINE AMINOTRANSFERASE 20 See_Comment [A utomated message] (test code = ALANINE The sys tem which AMINOTRANSFERASE) generated this result transmitted ref erence range: <=65. Th e reference range was not used to int erpret this result as normal/abnormal . [facility] MichiganUbxlpvoOKMIMXDHWUIG5261-69-56 16:28:00 Test Item Value Reference Range Interpretation Comments Alk Phos (test code = Alk Phos) 80 39-136 [facility] MichiganPggvrsyKCZUXRMVVANU7853-28-64 16:28:00 Test Item Value Reference Range Interpretation Comments Potassium Lvl (test code = Potassium 3.5 3.5-5.1 Lvl) [facility] MichiganWfgupjlPNCAQWQRPKII4846-34-84 16:28:00 Test Item Value Reference Range Interpretation Comments BUN (test code = BUN) 6 7-22 [facility] MichiganTeeipvsTGGMNRDDNFYG9473-62-86 16:28:00 Test Item Value Reference Range Interpretation Comments Sodium Lvl (test code = Sodium Lvl) 141 135-145 [facility]OwoovboNZWPLZBGLHMG2157-68-71 16:28:00 Test Item Value Reference Range Interpretation Comments Creatinine Lvl (test code = Creatinine 0.71 0.50-1.40 Lvl) [facility]UrjzpnvHESRGHXQDN5272-55-11 16:28:00 Test Item Value Reference Range Interpretation Comments Basophils (test code = 0.3 See_Comment [Aut omated message] The Basophils) system which ge nerated this result tra nsmitted reference range : <=1.0. The reference r bertha was not used to int erpret this result as normal/abnormal . [facility] HospitalUzdqqfjSBXZATPPQJ0908-75-60 16:28:00 Test Item Value Reference Range Interpretation Comments Eosinophils # (test code 0.1 See_Comment [A utomated message] The = Eosinophils #) system wh h generated this result tra nsmitted reference range : <=0.5. The reference r bertha was not used to int erpret this result as normal/abnormal . [facility] HospitalEzvyfouMGJTHTYVOW7577-00-33 16:28:00 Test Item Value Reference Range Interpretation Comments Segs-Bands # (test code = Segs-Bands #) 10.1 1.5-8.1 [facility] HospitalViflckrPWHFBLKRHJ6100-16-65 16:28:00 Test Item Value Reference Range Interpretation Comments Lymphocytes # (test code = Lymphocytes 1.7 1.0-5.5 #) [facility] HospitalEqnkqsiGGCDAZFXIQ5238-07-17 16:28:00 Test Item Value Reference Range Interpretation Comments Monocytes # (test code 0.7 See_Comment [Aut omated message] The = Monocytes #) system which generated this result tra nsmitted reference range : <=0.8. The reference r bertha was not used to int erpret this result as normal/abnormal . [facility] HospitalUnhxlmiXNWNQORVER0755-37-07 16:28:00 Test Item Value Reference Range Interpretation Comments Segs (test code = Segs) 80.1 45.0-75.0 [facility] HospitalJhlszzoMOUFCQLUIX6113-63-14 16:28:00 Test Item Value Reference Range Interpretation Comments Monocytes (test code = Monocytes) 5.8 2.0-12.0 [facility] HospitalUdmmrbgKBHLISFYZT2443-58-44 16:28:00 Test Item Value Reference Range Interpretation Comments Eosinophils (test code = 0.6 See_Comment [A utomated message] The Eosinophils) system which ge nerated this result tra nsmitted reference range : <=4.0. The reference r bertha was not used to int erpret this result as normal/abnormal . [facility] HospitalYvpdeznABDODCOQMZ8508-84-86 16:28:00 Test Item Value Reference Range Interpretation Comments Lymphocytes (test code = Lymphocytes) 13.2 20.0-40.0 [facility]2016-10-27 16:28:00 Test Item Value Reference Range Interpretation Comments UA Sq Epi (test code = UA Sq Epi) Few /LPF [facility] AND [id number] 16:28:00 Test Item Value Reference Range Interpretation Comments UA Spec Grav (test code = UA Spec 1.015 1 Grav) [facility] AND [id number] 16:28:00 Test Item Value Reference Range Interpretation Comments UA Turbidity (test code = Clear (04/08/16 UA Turbidity) 11:28 AM) [facility] AND [id number] 16:28:00 Test Item Value Reference Range Interpretation Comments UA Color (test code = Yellow *NA*(04/08/16 UA Color) 11:28 AM) [facility] AND [id number] 16:28:00 Test Item Value Reference Range Interpretation Comments UA Bili (test code = Negative *NA*(04/08/16 UA Bili) 11:28 AM) [facility] AND [id number] 16:28:00 Test Item Value Reference Range Interpretation Comments UA Ketones (test code = UA Negative mg/dL Ketones) [facility] AND [id number] 16:28:00 Test Item Value Reference Range Interpretation Comments UA Glucose (test code = UA Negative mg/dL Glucose) [facility] AND [id number] 16:28:00 Test Item Value Reference Range Interpretation Comments UA pH (test code = UA pH) 8.5 1 5.0-8.0 [facility] AND [id number] 16:28:00 Test Item Value Reference Range Interpretation Comments UA Protein (test code = UA Negative mg/dL Protein) [facility] AND [id number] 16:28:00 Test Item Value Reference Range Interpretation Comments UA Leuk Est (test Negative (04/08/16 11:28 code = UA Leuk Est) AM) [facility] AND [id number] 16:28:00 Test Item Value Reference Range Interpretation Comments UA Nitrite (test code Negative (04/08/16 = UA Nitrite) 11:28 AM) [facility] AND [id number] 16:28:00 Test Item Value Reference Range Interpretation Comments UA Urobilinogen (test code = UA 0.2 0.1-1.0 Urobilinogen) [facility] AND [id number] 16:28:00 Test Item Value Reference Range Interpretation Comments UA Blood (test code = Negative (04/08/16 11:28 [facility]A Blood) AM[facility] [id number] 16:28:00 Test Item Value Reference Range Interpretation Comments U Preg (test code = U Negative (04/08/16 11:28 Preg) AM) [facility] [id number] 16:28:00 Test Item Value Reference Range Interpretation Comments Lipase Lvl (test code = Lipase Lvl) 129 73-393 [facility]girzmnZGDRPBISQVPD8345-93-10 16:28:00 Test Item Value Reference Range Interpretation Comments AGAP (test code = AGAP) 9.5 10.0-20.0 [facility]JmhkjkcSYKATXNCZRND2100-75-81 16:28:00 Test Item Value Reference Range Interpretation Comments B/C Ratio (test code = B/C Ratio) 8 6-25 [facility]ShfnspnYBAJCAHRVVEE0939-34-47 16:28:00 Test Item Value Reference Range Interpretation Comments A/G Ratio (test code = A/G Ratio) 1.2 0.7-1.6 [facility]VcmzpqkNFZIHCYJSXHJ1436-82-50 16:28:00 Test Item Value Reference Range Interpretation Comments Globulin (test code = Globulin) 3.3 2.7-4.2 [facility]HufupivQFHJZGDROTSP3608-37-39 16:28:00 Test Item Value Reference Range Interpretation Comments CO2 (test code = CO2) 29 24-32 [facility]WbowpvvBYRZGLZGODMF0482-58-86 16:28:00 Test Item Value Reference Range Interpretation Comments Chloride Lvl (test code = Chloride Lvl) 106 95-109 [facility]YewcmtsYMLBVMLTXUEM2437-38-22 16:28:00 Test Item Value Reference Range Interpretation Comments Bili Total (test code = Bili Total) 0.4 0.2-1.3 [facility]FaqnhbsVKGQCMGQXPKQ7511-48-71 16:28:00 Test Item Value Reference Range Interpretation Comments Calcium Lvl (test code = Calcium Lvl) 8.5 8.5-10.5 [facility]EfvghrhBDZSZRCHVYSF6980-41-25 16:28:00 Test Item Value Reference Range Interpretation Comments Total Protein (test code = Total 7.1 6.4-8.4 Protein) [facility]CqtrmxwVZUMRKZQJBLQ0480-20-33 16:28:00 Test Item Value Reference Range Interpretation Comments ASPARTATE TRANSAMINASE 15 See_Comment [Aut omated message] (test code = ASPARTATE The s ystem which TRANSAMINASE) generated this result transmitted ref erence range: <=37. Th e reference range was not used to interpr et this result as normal/abnormal . [facility] MichiganSohxtedWXFKGKOXODPX1824-85-15 16:28:00 Test Item Value Reference Range Interpretation Comments eGFR (test code = eGFR) 117 [facility]ApjcyqkSCMGASUQGRWM4975-99-38 16:28:00 Test Item Value Reference Range Interpretation Comments Albumin Lvl (test code = Albumin Lvl) 3.8 3.5-5.0 [facility]YkjenziISGXAXTHVLDS3001-32-12 16:28:00 Test Item Value Reference Range Interpretation Comments Glucose Lvl (test code = Glucose Lvl) 114 70-99 [facility] MichiganZixkgdmLLTFXGPLHXJU0942-51-39 16:28:00 Test Item Value Reference Range Interpretation Comments ALANINE AMINOTRANSFERASE 20 See_Comment [A utomated message] (test code = ALANINE The sys tem which AMINOTRANSFERASE) generated this result transmitted ref erence range: <=65. Th e reference range was not used to int erpret this result as normal/abnormal . [facility] MichiganIspvnyrFPZKABVDHBBL3918-87-76 16:28:00 Test Item Value Reference Range Interpretation Comments Alk Phos (test code = Alk Phos) 80 39-136 [facility] MichiganZybnyjdIMAUSXSHSVCQ1845-06-08 16:28:00 Test Item Value Reference Range Interpretation Comments Potassium Lvl (test code = Potassium 3.5 3.5-5.1 Lvl) [facility]HhnzfplXZOXRMIYMDEC8022-60-53 16:28:00 Test Item Value Reference Range Interpretation Comments BUN (test code = BUN) 6 7-22 [facility]LasrtvoGNAZRAIOYQZW9078-02-23 16:28:00 Test Item Value Reference Range Interpretation Comments Sodium Lvl (test code = Sodium Lvl) 141 135-145 [facility]WkhsdsvPOFGQFRSPOLH8386-26-39 16:28:00 Test Item Value Reference Range Interpretation Comments Creatinine Lvl (test code = Creatinine 0.71 0.50-1.40 Lvl) [facility]NxebvfmXKYJFUHWIR5699-83-74 16:28:00 Test Item Value Reference Range Interpretation Comments Basophils (test code = 0.3 See_Comment [Aut omated message] The Basophils) system which ge nerated this result tra nsmitted reference range : <=1.0. The reference r bertha was not used to int erpret this result as normal/abnormal . [facility] HospitalTojpogpUXRTQJQIFF0303-21-08 16:28:00 Test Item Value Reference Range Interpretation Comments Eosinophils # (test code 0.1 See_Comment [A utomated message] The = Eosinophils #) system whic h generated this result tra nsmitted reference range : <=0.5. The reference r bertha was not used to int erpret this result as normal/abnormal . [facility] HospitalFkblqewNFSZISGYWH5944-73-61 16:28:00 Test Item Value Reference Range Interpretation Comments Segs-Bands # (test code = Segs-Bands #) 10.1 1.5-8.1 [facility] HospitalZhgnugkUIPQIELOTX8626-06-84 16:28:00 Test Item Value Reference Range Interpretation Comments Lymphocytes # (test code = Lymphocytes 1.7 1.0-5.5 #) [facility] HospitalZapcijkXKQSUUMYKX4432-94-92 16:28:00 Test Item Value Reference Range Interpretation Comments Monocytes # (test code 0.7 See_Comment [Aut omated message] The = Monocytes #) system which generated this result tra nsmitted reference range : <=0.8. The reference r bertha was not used to int erpret this result as normal/abnormal . [facility] HospitalXpvjgmrUFHZHNREMJ9337-30-91 16:28:00 Test Item Value Reference Range Interpretation Comments Segs (test code = Segs) 80.1 45.0-75.0 [facility] HospitalSlpekgiIKRBHZPQNZ5609-25-49 16:28:00 Test Item Value Reference Range Interpretation Comments Monocytes (test code = Monocytes) 5.8 2.0-12.0 [facility] HospitalLhjrgzaEFBRVTGVEW3483-89-27 16:28:00 Test Item Value Reference Range Interpretation Comments Eosinophils (test code = 0.6 See_Comment [A utomated message] The Eosinophils) system which ge nerated this result tra nsmitted reference range : <=4.0. The reference r bertha was not used to int erpret this result as normal/abnormal . [facility] HospitalQwvlrevKKMPXRDBHZ7411-65-45 16:28:00 Test Item Value Reference Range Interpretation Comments Lymphocytes (test code = Lymphocytes) 13.2 20.0-40.0 [facility] AND [id number] 16:28:00 Test Item Value Reference Range Interpretation Comments UA Sq Epi (test code = UA Sq Epi) Few /LPF [facility] AND [id number] 16:28:00 Test Item Value Reference Range Interpretation Comments UA Spec Grav (test code = UA Spec 1.015 1 Grav) [facility] AND [id number] 16:28:00 Test Item Value Reference Range Interpretation Comments UA Turbidity (test code = Clear (04/08/16 UA Turbidity) 11:28 AM) [facility] AND [id number] 16:28:00 Test Item Value Reference Range Interpretation Comments UA Color (test code = Yellow *NA*(04/08/16 UA Color) 11:28 AM) [facility] AND [id number] 16:28:00 Test Item Value Reference Range Interpretation Comments UA Bili (test code = Negative *NA*(04/08/16 UA Bili) 11:28 AM) [facility] AND [id number] 16:28:00 Test Item Value Reference Range Interpretation Comments UA Ketones (test code = UA Negative mg/dL Ketones) [facility] AND [id number] 16:28:00 Test Item Value Reference Range Interpretation Comments UA Glucose (test code = UA Negative mg/dL Glucose) [facility] AND [id number] 16:28:00 Test Item Value Reference Range Interpretation Comments UA pH (test code = UA pH) 8.5 1 5.0-8.0 [facility] AND [id number] 16:28:00 Test Item Value Reference Range Interpretation Comments UA Protein (test code = UA Negative mg/dL Protein) [facility] AND [id number] 16:28:00 Test Item Value Reference Range Interpretation Comments UA Leuk Est (test Negative (04/08/16 11:28 code = UA Leuk Est) AM) [facility] AND [id number] 16:28:00 Test Item Value Reference Range Interpretation Comments UA Nitrite (test code Negative (04/08/16 = UA Nitrite) 11:28 AM) [facility] [id number] 16:28:00 Test Item Value Reference Range Interpretation Comments UA Urobilinogen (test code = UA 0.2 0.1-1.0 Urobilinogen) [facility] [id number] 16:28:00 Test Item Value Reference Range Interpretation Comments UA Blood (test code = Negative (04/08/16 11:28 UA Blood) AM) [facility] [id number] 16:28:00 Test Item Value Reference Range Interpretation Comments U Preg (test code = U Negative (04/08/16 11:28 Preg) AM) [facility] [id number] 16:28:00 Test Item Value Reference Range Interpretation Comments Lipase Lvl (test code = Lipase Lvl) 129 73-393 [facility] HospitalKcbfrocYVVBBMMEGYGA7578-72-39 16:28:00 Test Item Value Reference Range Interpretation Comments AGAP (test code = AGAP) 9.5 10.0-20.0 [facility] HospitalRafahtmSZYVDLWSMHXQ8752-28-61 16:28:00 Test Item Value Reference Range Interpretation Comments B/C Ratio (test code = B/C Ratio) 8 6-25 [facility] HospitalQppapakHQTZQVVEEISY3851-17-62 16:28:00 Test Item Value Reference Range Interpretation Comments A/G Ratio (test code = A/G Ratio) 1.2 0.7-1.6 [facility] HospitalJjtgqimREQQZWLNVVBQ8975-85-26 16:28:00 Test Item Value Reference Range Interpretation Comments Globulin (test code = Globulin) 3.3 2.7-4.2 [facility] HospitalBohjmsxTDNXLKVBCVEG1968-41-50 16:28:00 Test Item Value Reference Range Interpretation Comments CO2 (test code = CO2) 29 24-32 [facility] HospitalNxudexoNFLTGTZHRBYO2572-88-93 16:28:00 Test Item Value Reference Range Interpretation Comments Chloride Lvl (test code = Chloride Lvl) 106 95-109 [facility] HospitalKgwqppxPOZVTALXQFPZ7998-21-32 16:28:00 Test Item Value Reference Range Interpretation Comments Bili Total (test code = Bili Total) 0.4 0.2-1.3 [facility] HospitalSpgjeexZQVORFSUAQCK2898-10-81 16:28:00 Test Item Value Reference Range Interpretation Comments Calcium Lvl (test code = Calcium Lvl) 8.5 8.5-10.5 [facility]CkbgupeDEIVXQIGBUXR9041-52-68 16:28:00 Test Item Value Reference Range Interpretation Comments Total Protein (test code = Total 7.1 6.4-8.4 Protein) [facility]LqdeabbNGVIBWFALOZX1438-16-31 16:28:00 Test Item Value Reference Range Interpretation Comments ASPARTATE TRANSAMINASE 15 See_Comment [Aut omated message] (test code = ASPARTATE The s ystem which TRANSAMINASE) generated this result transmitted ref erence range: <=37. Th e reference range was not used to interpr et this result as normal/abnormal . [facility] MichiganUroueksOCOXCLDAHIBD6438-81-37 16:28:00 Test Item Value Reference Range Interpretation Comments eGFR (test code = eGFR) 117 [facility]CdhpvypZORLNXCWSZTQ6174-09-62 16:28:00 Test Item Value Reference Range Interpretation Comments Albumin Lvl (test code = Albumin Lvl) 3.8 3.5-5.0 [facility]EnqpwpvXIVFYVDIWKCJ2835-54-45 16:28:00 Test Item Value Reference Range Interpretation Comments Glucose Lvl (test code = Glucose Lvl) 114 70-99 [facility] MichiganOlbvjydXNGFXZPKQLPR6817-84-29 16:28:00 Test Item Value Reference Range Interpretation Comments ALANINE AMINOTRANSFERASE 20 See_Comment [A utomated message] (test code = ALANINE The sys tem which AMINOTRANSFERASE) generated this result transmitted ref erence range: <=65. Th e reference range was not used to int erpret this result as normal/abnormal . [facility] MichiganLkpqrfdFCQDKKWGDLXJ8126-89-72 16:28:00 Test Item Value Reference Range Interpretation Comments Alk Phos (test code = Alk Phos) 80 39-136 [facility]WcsgjnmVYUQFBUZQSFU0820-34-34 16:28:00 Test Item Value Reference Range Interpretation Comments Potassium Lvl (test code = Potassium 3.5 3.5-5.1 Lvl) [facility]AyewcsaGELOLWETVIMF3414-62-41 16:28:00 Test Item Value Reference Range Interpretation Comments BUN (test code = BUN) 6 7-22 [facility]XvkhkgmYUXMXEPLREOY2695-80-88 16:28:00 Test Item Value Reference Range Interpretation Comments Sodium Lvl (test code = Sodium Lvl) 141 135-145 [facility] MichiganNtkxbzyFXNOWEMRMZTR6309-78-79 16:28:00 Test Item Value Reference Range Interpretation Comments Creatinine Lvl (test code = Creatinine 0.71 0.50-1.40 Lvl) [facility] HospitalWvummlcIZASAMFUSK1996-26-28 16:28:00 Test Item Value Reference Range Interpretation Comments Basophils (test code = 0.3 See_Comment [Aut omated message] The Basophils) system which ge nerated this result tra nsmitted reference range : <=1.0. The reference r bertha was not used to int erpret this result as normal/abnormal . [facility] HospitalJjtxhjvIURGQIZZAM3553-23-59 16:28:00 Test Item Value Reference Range Interpretation Comments Eosinophils # (test code 0.1 See_Comment [A utomated message] The = Eosinophils #) system whic h generated this result tra nsmitted reference range : <=0.5. The reference r bertha was not used to int erpret this result as normal/abnormal . [facility] HospitalNwjkyksGNVKGVJOFZ8826-51-35 16:28:00 Test Item Value Reference Range Interpretation Comments Segs-Bands # (test code = Segs-Bands #) 10.1 1.5-8.1 [facility] HospitalLunzfubLYYTZRTHEH1251-45-45 16:28:00 Test Item Value Reference Range Interpretation Comments Lymphocytes # (test code = Lymphocytes 1.7 1.0-5.5 #) [facility] HospitalHkacltaCPJDTIQMOO6361-91-00 16:28:00 Test Item Value Reference Range Interpretation Comments Monocytes # (test code 0.7 See_Comment [Aut omated message] The = Monocytes #) system which generated this result tra nsmitted reference range : <=0.8. The reference r bertha was not used to int erpret this result as normal/abnormal . [facility] HospitalOaoodsoOFKCWHUFXU6351-80-52 16:28:00 Test Item Value Reference Range Interpretation Comments Segs (test code = Segs) 80.1 45.0-75.0 [facility] HospitalDjrbeybEAJENTUAIF7326-33-26 16:28:00 Test Item Value Reference Range Interpretation Comments Monocytes (test code = Monocytes) 5.8 2.0-12.0 [facility] HospitalHlwkltqSGDTHOONQP7327-37-44 16:28:00 Test Item Value Reference Range Interpretation Comments Eosinophils (test code = 0.6 See_Comment [A utomated message] The Eosinophils) system which ge nerated this result tra nsmitted reference range : <=4.0. The reference r bertha was not used to int erpret this result as normal/abnormal . [facility]LfklgluZVRXQBHJXG4999-92-43 16:28:00 Test Item Value Reference Range Interpretation Comments Lymphocytes (test code = Lymphocytes) 13.2 20.0-40.0 [facility] AND [id number] 16:28:00 Test Item Value Reference Range Interpretation Comments UA Sq Epi (test code = UA Sq Epi) Few /LPF [facility] AND [id number] 16:28:00 Test Item Value Reference Range Interpretation Comments UA Spec Grav (test code = UA Spec 1.015 1 Grav) [facility] AND [id number] 16:28:00 Test Item Value Reference Range Interpretation Comments UA Turbidity (test code = Clear (04/08/16 UA Turbidity) 11:28 AM) [facility] AND [id number] 16:28:00 Test Item Value Reference Range Interpretation Comments UA Color (test code = Yellow *NA*(04/08/16 UA Color) 11:28 AM) [facility] AND [id number] 16:28:00 Test Item Value Reference Range Interpretation Comments UA Bili (test code = Negative *NA*(04/08/16 UA Bili) 11:28 AM) [facility] AND [id number] 16:28:00 Test Item Value Reference Range Interpretation Comments UA Ketones (test code = UA Negative mg/dL Ketones) [facility] AND [id number] 16:28:00 Test Item Value Reference Range Interpretation Comments UA Glucose (test code = UA Negative mg/dL Glucose) [facility] AND [id number] 16:28:00 Test Item Value Reference Range Interpretation Comments UA pH (test code = UA pH) 8.5 1 5.0-8.0 [facility] AND [id number] 16:28:00 Test Item Value Reference Range Interpretation Comments UA Protein (test code = UA Negative mg/dL Protein) [facility] AND [id number] 16:28:00 Test Item Value Reference Range Interpretation Comments UA Leuk Est (test Negative (10/27/16 11:28 code = UA Leuk Est) AM) [facility] [id number] 16:28:00 Test Item Value Reference Range Interpretation Comments UA Nitrite (test code Negative (04/08/16 = UA Nitrite) 11:28 AM) [facility] [id number] 16:28:00 Test Item Value Reference Range Interpretation Comments UA Urobilinogen (test code = UA 0.2 0.1-1.0 Urobilinogen) [facility] [id number] 16:28:00 Test Item Value Reference Range Interpretation Comments UA Blood (test code = Negative (04/08/16 11:28 UA Blood) AM) [facility] [id number] 16:28:00 Test Item Value Reference Range Interpretation Comments U Preg (test code = U Negative (04/08/16 11:28 Preg) AM) [facility] [id number] 16:28:00 Test Item Value Reference Range Interpretation Comments Lipase Lvl (test code = Lipase Lvl) 129 73-393 [facility] HospitalArvmsirGCNVDQICLJLC1232-26-69 16:28:00 Test Item Value Reference Range Interpretation Comments AGAP (test code = AGAP) 9.5 10.0-20.0 [facility] LnlxoymBMFUIWUSBKHQ1169-78-86 16:28:00 Test Item Value Reference Range Interpretation Comments B/C Ratio (test code = B/C Ratio) 8 6-25 [facility] TozlwkcIOSPUVQWLBFU9370-25-19 16:28:00 Test Item Value Reference Range Interpretation Comments A/G Ratio (test code = A/G Ratio) 1.2 0.7-1.6 [facility] KtqvgnpITQHIKFCKCDD0684-45-57 16:28:00 Test Item Value Reference Range Interpretation Comments Globulin (test code = Globulin) 3.3 2.7-4.2 [facility] YjhmpsnURLWYLFKNGUT2101-56-90 16:28:00 Test Item Value Reference Range Interpretation Comments CO2 (test code = CO2) 29 24-32 [facility] XqcrlevXJHEUMKDQEZS7087-35-28 16:28:00 Test Item Value Reference Range Interpretation Comments Chloride Lvl (test code = Chloride Lvl) 106 95-109 [facility] HospitalNmuxabrCALXOFXIBHDI1120-68-72 16:28:00 Test Item Value Reference Range Interpretation Comments Bili Total (test code = Bili Total) 0.4 0.2-1.3 [facility]VeffsqoZRISDNBFGCTD3101-87-08 16:28:00 Test Item Value Reference Range Interpretation Comments Calcium Lvl (test code = Calcium Lvl) 8.5 8.5-10.5 [facility] MichiganUyegyhfHLNXFLFJFLHY9575-87-19 16:28:00 Test Item Value Reference Range Interpretation Comments Total Protein (test code = Total 7.1 6.4-8.4 Protein) [facility] MichiganUbkwgljDPTYCOKAVJHA7127-53-44 16:28:00 Test Item Value Reference Range Interpretation Comments ASPARTATE TRANSAMINASE 15 See_Comment [Aut omated message] (test code = ASPARTATE The s ystem which TRANSAMINASE) generated this result transmitted ref erence range: <=37. Th e reference range was not used to interpr et this result as normal/abnormal . [facility] MichiganXwdpfjaCKPNKWIKGVIJ6160-49-56 16:28:00 Test Item Value Reference Range Interpretation Comments eGFR (test code = eGFR) 117 [facility] MichiganFcmmwbjMBHWKPATJTJP4913-62-26 16:28:00 Test Item Value Reference Range Interpretation Comments Albumin Lvl (test code = Albumin Lvl) 3.8 3.5-5.0 [facility]XirhsfbDYLHCIKSIDDG0617-85-46 16:28:00 Test Item Value Reference Range Interpretation Comments Glucose Lvl (test code = Glucose Lvl) 114 70-99 [facility] MichiganBmjasclPZVQAUOTLNST9801-69-84 16:28:00 Test Item Value Reference Range Interpretation Comments ALANINE AMINOTRANSFERASE 20 See_Comment [A utomated message] (test code = ALANINE The sys tem which AMINOTRANSFERASE) generated this result transmitted ref erence range: <=65. Th e reference range was not used to int erpret this result as normal/abnormal . [facility] MichiganCdrnpnbCCLGZFUDZLNX1659-72-56 16:28:00 Test Item Value Reference Range Interpretation Comments Alk Phos (test code = Alk Phos) 80 39-136 [facility] MichiganGundusqZGARNRUPPVCJ9975-84-28 16:28:00 Test Item Value Reference Range Interpretation Comments Potassium Lvl (test code = Potassium 3.5 3.5-5.1 Lvl) [facility] MichiganLnahtxcHBEILDXUWBKE2609-81-18 16:28:00 Test Item Value Reference Range Interpretation Comments BUN (test code = BUN) 6 7-22 [facility] MichiganLvwtqhcCOPIGWKWGBMS6011-09-46 16:28:00 Test Item Value Reference Range Interpretation Comments Sodium Lvl (test code = Sodium Lvl) 141 135-145 [facility] MichiganBjztcjdPCXALOZSJDAK1674-76-27 16:28:00 Test Item Value Reference Range Interpretation Comments Creatinine Lvl (test code = Creatinine 0.71 0.50-1.40 Lvl) [facility] HospitalStihbjmHATJPYBROC1723-47-86 16:28:00 Test Item Value Reference Range Interpretation Comments Basophils (test code = 0.3 See_Comment [Aut omated message] The Basophils) system which ge nerated this result tra nsmitted reference range : <=1.0. The reference r bertha was not used to int erpret this result as normal/abnormal . [facility] HospitalUtfrsctQSWXSOBCQH0213-32-51 16:28:00 Test Item Value Reference Range Interpretation Comments Eosinophils # (test code 0.1 See_Comment [A utomated message] The = Eosinophils #) system whic h generated this result tra nsmitted reference range : <=0.5. The reference r bertha was not used to int erpret this result as normal/abnormal . [facility] HospitalMbhvewyZVRLUKJRYX5458-70-42 16:28:00 Test Item Value Reference Range Interpretation Comments Segs-Bands # (test code = Segs-Bands #) 10.1 1.5-8.1 [facility] HospitalFdybdedFVDWNTBBHO6520-41-31 16:28:00 Test Item Value Reference Range Interpretation Comments Lymphocytes # (test code = Lymphocytes 1.7 1.0-5.5 #) [facility] HospitalQgrakomTUOYHZDOMG1794-51-59 16:28:00 Test Item Value Reference Range Interpretation Comments Monocytes # (test code 0.7 See_Comment [Aut omated message] The = Monocytes #) system which generated this result tra nsmitted reference range : <=0.8. The reference r bertha was not used to int erpret this result as normal/abnormal . [facility] HospitalWwsfjhpXCCFLCYKHP1844-60-18 16:28:00 Test Item Value Reference Range Interpretation Comments Segs (test code = Segs) 80.1 45.0-75.0 [facility] HospitalXhnunmcPHRVUIFPGL8815-94-14 16:28:00 Test Item Value Reference Range Interpretation Comments Monocytes (test code = Monocytes) 5.8 2.0-12.0 [facility] Hospital[facility]niyqyuZGCKJFZXWL2648-30-20 16:28:00 Test Item Value Reference Range Interpretation Comments Eosinophils (test code = 0.6 See_Comment [A utomated message] The Eosinophils) system which ge nerated this result tra nsmitted reference range : <=4.0. The reference r bertha was not used to int erpret this result as normal/abnormal . [facility] HospitalLhosbafUBIFGDLHOJ4240-87-86 16:28:00 Test Item Value Reference Range Interpretation Comments Lymphocytes (test code = Lymphocytes) 13.2 20.0-40.0 [facility] AND [id number] 16:28:00 Test Item Value Reference Range Interpretation Comments UA Sq Epi (test code = UA Sq Epi) Few /LPF [facility] AND [id number] 16:28:00 Test Item Value Reference Range Interpretation Comments UA Spec Grav (test code = UA Spec 1.015 1 Grav) [facility] AND [id number] 16:28:00 Test Item Value Reference Range Interpretation Comments UA Turbidity (test code = Clear (04/08/16 UA Turbidity) 11:28 AM) [facility] AND [id number] 16:28:00 Test Item Value Reference Range Interpretation Comments UA Color (test code = Yellow *NA*(04/08/16 UA Color) 11:28 AM) [facility] AND [id number] 16:28:00 Test Item Value Reference Range Interpretation Comments UA Bili (test code = Negative *NA*(04/08/16 UA Bili) 11:28 AM) [facility] AND [id number] 16:28:00 Test Item Value Reference Range Interpretation Comments UA Ketones (test code = UA Negative mg/dL Ketones) [facility] AND [id number] 16:28:00 Test Item Value Reference Range Interpretation Comments UA Glucose (test code = UA Negative mg/dL Glucose) [facility] AND [id number] 16:28:00 Test Item Value Reference Range Interpretation Comments UA pH (test code = UA pH) 8.5 1 5.0-8.0 [facility] AND [id number] 16:28:00 Test Item Value Reference Range Interpretation Comments UA Protein (test code = UA Negative mg/dL Protein) [facility] [id number] 16:28:00 Test Item Value Reference Range Interpretation Comments UA Leuk Est (test Negative (04/08/16 11:28 code = UA Leuk Est) AM) [facility] [id number] 16:28:00 Test Item Value Reference Range Interpretation Comments UA Nitrite (test code Negative (04/08/16 = UA Nitrite) 11:28 AM) [facility] [id number] 16:28:00 Test Item Value Reference Range Interpretation Comments UA Urobilinogen (test code = UA 0.2 0.1-1.0 Urobilinogen) [facility] [id number] 16:28:00 Test Item Value Reference Range Interpretation Comments UA Blood (test code = Negative (04/08/16 11:28 UA Blood) AM) [facility] [id number] 16:28:00 Test Item Value Reference Range Interpretation Comments U Preg (test code = U Negative (04/08/16 11:28 Preg) AM) [facility] [employer]annCHEM [id number] 16:28:00 Test Item Value Reference Range Interpretation Comments Lipase Lvl (test code = Lipase Lvl) 129 73393 [facility] HospitalAyumwltGMVQXTBKSFSN3385-60-88 16:28:00 Test Item Value Reference Range Interpretation Comments AGAP (test code = AGAP) 9.5 10.0-20.0 [facility] AbxvnktWLFMBZVRKZZZ8003-59-61 16:28:00 Test Item Value Reference Range Interpretation Comments B/C Ratio (test code = B/C Ratio) 8 6-25 [facility] ThmgmskFMXQAVSJZQLR4740-13-87 16:28:00 Test Item Value Reference Range Interpretation Comments A/G Ratio (test code = A/G Ratio) 1.2 0.7-1.6 [facility] [id number] 16:28:00 Test Item Value Reference Range Interpretation Comments Lipase Lvl (test code = Lipase Lvl) 129 73-393 [facility] HospitalGvheuuyBRQYEWAKFWIL5596-40-67 16:28:00 Test Item Value Reference Range Interpretation Comments Globulin (test code = Globulin) 3.3 2.7-4.2 [facility] BiydsdwWHPUKVHZTWMK5223-60-57 16:28:00 Test Item Value Reference Range Interpretation Comments AGAP (test code = AGAP) 9.5 10.0-20.0 [facility]ItumphhDJXZOCORKNQU6576-94-75 16:28:00 Test Item Value Reference Range Interpretation Comments CO2 (test code = CO2) [facility] MichiganHhqbapdFNYWOAFURCVK8756-65-86 16:28:00 Test Item Value Reference Range Interpretation Comments B/C Ratio (test code = B/C Ratio) 8 6-25 [facility] MichiganBlhyqgnNLJKAXIRKCIF3407-23-97 16:28:00 Test Item Value Reference Range Interpretation Comments Chloride Lvl (test code = Chloride Lvl) 106 95-109 [facility] MichiganLpdycdaXCECNAFWNVDP5547-86-86 16:28:00 Test Item Value Reference Range Interpretation Comments A/G Ratio (test code = A/G Ratio) 1.2 0.7-1.6 [facility] MichiganIgawcwsPWVRTYYNTEVR7459-68-75 16:28:00 Test Item Value Reference Range Interpretation Comments Bili Total (test code = Bili Total) 0.4 0.2-1.3 [facility] MichiganMdbvoaaRMQJNLQTPEQV6927-99-17 16:28:00 Test Item Value Reference Range Interpretation Comments Globulin (test code = Globulin) 3.3 2.7-4.2 [facility] MichiganObzbjfvBZABKSQQJDLO0237-88-47 16:28:00 Test Item Value Reference Range Interpretation Comments Calcium Lvl (test code = Calcium Lvl) 8.5 8.5-10.5 [facility] MichiganEffdtplATNPURHHSSDK1095-36-95 16:28:00 Test Item Value Reference Range Interpretation Comments CO2 (test code = CO2) [facility] MichiganWdxpksfMSTDEDUELBLT3219-36-06 16:28:00 Test Item Value Reference Range Interpretation Comments Total Protein (test code = Total 7.1 6.4-8.4 Protein) [facility] MichiganApxdyaeZAAKYLARGWCY0508-61-59 16:28:00 Test Item Value Reference Range Interpretation Comments Chloride Lvl (test code = Chloride Lvl) 106 95-109 [facility] MichiganPwstsmpONEMILSJXEMZ7507-26-80 16:28:00 Test Item Value Reference Range Interpretation Comments ASPARTATE TRANSAMINASE 15 See_Comment [Aut omated message] (test code = ASPARTATE The s ystem which TRANSAMINASE) generated this result transmitted ref erence range: <=37. Th e reference range was not used to interpr et this result as normal/abnormal . [facility] HospitalKhlvddnHZUIZFHEEQVH4940-73-39 16:28:00 Test Item Value Reference Range Interpretation Comments Bili Total (test code = Bili Total) 0.4 0.2-1.3 [facility] MichiganLkcasoqYODRUCNCEUYS8098-63-40 16:28:00 Test Item Value Reference Range Interpretation Comments eGFR (test code = eGFR) 117 [facility] MichiganJsnvwhlVLRKTOJSWZOV6406-84-91 16:28:00 Test Item Value Reference Range Interpretation Comments Calcium Lvl (test code = Calcium Lvl) 8.5 8.5-10.5 [facility] MichiganNqawkbnVFTZZSBSOWVT5478-05-96 16:28:00 Test Item Value Reference Range Interpretation Comments Albumin Lvl (test code = Albumin Lvl) 3.8 3.5-5.0 [facility] MichiganSlweacpCPEJSYJNCCZQ9497-02-55 16:28:00 Test Item Value Reference Range Interpretation Comments Total Protein (test code = Total 7.1 6.4-8.4 Protein) [facility] MichiganRhmpltyXWVGLCGTWKPL9612-47-87 16:28:00 Test Item Value Reference Range Interpretation Comments Glucose Lvl (test code = Glucose Lvl) 114 70-99 [facility] MichiganEocthzbDMGMJEQKNYRK1591-99-52 16:28:00 Test Item Value Reference Range Interpretation Comments ALANINE AMINOTRANSFERASE 20 See_Comment [A utomated message] (test code = ALANINE The sys tem which AMINOTRANSFERASE) generated this result transmitted ref erence range: <=65. Th e reference range was not used to int erpret this result as normal/abnormal . [facility] MichiganJdmtzrkEONTRUCXZWZA0551-40-89 16:28:00 Test Item Value Reference Range Interpretation Comments ASPARTATE TRANSAMINASE 15 See_Comment [Aut omated message] (test code = ASPARTATE The s ystem which TRANSAMINASE) generated this result transmitted ref erence range: <=37. Th e reference range was not used to interpr et this result as normal/abnormal . [facility] HospitalOwjhhrkNCRHFAMAEYMH9953-47-60 16:28:00 Test Item Value Reference Range Interpretation Comments Alk Phos (test code = Alk Phos) 80 39-136 [facility] MichiganPloskxmXSWJPOYGUWVJ8498-91-29 16:28:00 Test Item Value Reference Range Interpretation Comments eGFR (test code = eGFR) 117 [facility] MichiganPsywcfmCBUITQJKGWPT7792-29-05 16:28:00 Test Item Value Reference Range Interpretation Comments Potassium Lvl (test code = Potassium 3.5 3.5-5.1 Lvl) [facility] MichiganLhqzprlLKFYOQTMRXWQ6606-64-89 16:28:00 Test Item Value Reference Range Interpretation Comments Albumin Lvl (test code = Albumin Lvl) 3.8 3.5-5.0 [facility] MichiganNgjllplKKSXPFKVCSHY4176-43-64 16:28:00 Test Item Value Reference Range Interpretation Comments BUN (test code = BUN) 6 7-22 [facility] MichiganHixbiciWICUWYZCAZIN1518-45-98 16:28:00 Test Item Value Reference Range Interpretation Comments Glucose Lvl (test code = Glucose Lvl) 114 70-99 [facility] MichiganRkptvdaMFVRHYBXQVWX3399-71-06 16:28:00 Test Item Value Reference Range Interpretation Comments Sodium Lvl (test code = Sodium Lvl) 141 135-145 [facility] MichiganHqmiytvGUWSSIJRNYSP2557-25-11 16:28:00 Test Item Value Reference Range Interpretation Comments ALANINE AMINOTRANSFERASE 20 See_Comment [A utomated message] (test code = ALANINE The sys tem which AMINOTRANSFERASE) generated this result transmitted ref erence range: <=65. Th e reference range was not used to int erpret this result as normal/abnormal . [facility] MichiganSnwvzbjBNLCDSICJBRT9801-63-52 16:28:00 Test Item Value Reference Range Interpretation Comments Creatinine Lvl (test code = Creatinine 0.71 0.50-1.40 Lvl) [facility] MichiganCmqdwkxZOCZZMVYYSJK7623-23-93 16:28:00 Test Item Value Reference Range Interpretation Comments Alk Phos (test code = Alk Phos) 80 39-136 [facility] HospitalAuxvghySASIOQIHTM6753-46-57 16:28:00 Test Item Value Reference Range Interpretation Comments Basophils (test code = 0.3 See_Comment [Aut omated message] The Basophils) system which ge nerated this result tra nsmitted reference range : <=1.0. The reference r bertha was not used to int erpret this result as normal/abnormal . [facility] MichiganDxibnjrBWPCRTFPIJVG5307-42-92 16:28:00 Test Item Value Reference Range Interpretation Comments Potassium Lvl (test code = Potassium 3.5 3.5-5.1 Lvl) [facility] HospitalObervchWNONSNJNLX5438-75-45 16:28:00 Test Item Value Reference Range Interpretation Comments Eosinophils # (test code 0.1 See_Comment [A utomated message] The = Eosinophils #) system whic h generated this result tra nsmitted reference range : <=0.5. The reference r bertha was not used to int erpret this result as normal/abnormal . [facility] MichiganXqrlkorVUOLLJMQNCWV0215-93-86 16:28:00 Test Item Value Reference Range Interpretation Comments BUN (test code = BUN) 6 7-22 [facility] HospitalNnsgevlEAILAZCXNB7576-29-24 16:28:00 Test Item Value Reference Range Interpretation Comments Segs-Bands # (test code = Segs-Bands #) 10.1 1.5-8.1 [facility] MichiganYptrbouVHFSPTKMHFDP3444-04-94 16:28:00 Test Item Value Reference Range Interpretation Comments Sodium Lvl (test code = Sodium Lvl) 141 135-145 [facility] HospitalUxhniibIIFLSEZYYK6654-51-62 16:28:00 Test Item Value Reference Range Interpretation Comments Lymphocytes # (test code = Lymphocytes 1.7 1.0-5.5 #) [facility] MichiganGpnalthWGUUVUMFBXVR6588-26-72 16:28:00 Test Item Value Reference Range Interpretation Comments Creatinine Lvl (test code = Creatinine 0.71 0.50-1.40 Lvl) [facility] HospitalIlemwuuOPOYMFVZRK4894-42-84 16:28:00 Test Item Value Reference Range Interpretation Comments Monocytes # (test code 0.7 See_Comment [Aut omated message] The = Monocytes #) system which generated this result tra nsmitted reference range : <=0.8. The reference r bertha was not used to int erpret this result as normal/abnormal . [facility] HospitalWjtlbdeTSRZMLMASM8312-65-82 16:28:00 Test Item Value Reference Range Interpretation Comments Basophils (test code = 0.3 See_Comment [Aut omated message] The Basophils) system which ge nerated this result tra nsmitted reference range : <=1.0. The reference r bertha was not used to int erpret this result as normal/abnormal . [facility] HospitalGvbestrQZXAOPUBVC0031-25-48 16:28:00 Test Item Value Reference Range Interpretation Comments Segs (test code = Segs) 80.1 45.0-75.0 [facility] HospitalRwrhzuaLOPQZGDWDT5181-16-66 16:28:00 Test Item Value Reference Range Interpretation Comments Monocytes (test code = Monocytes) 5.8 2.0-12.0 [facility] HospitalZxrhsdvGZBGLBLGAE7909-51-23 16:28:00 Test Item Value Reference Range Interpretation Comments Eosinophils # (test code 0.1 See_Comment [A utomated message] The = Eosinophils #) system whic h generated this result tra nsmitted reference range : <=0.5. The reference r bertha was not used to int erpret this result as normal/abnormal . [facility] HospitalOdiqejjTCLCJCGPEV8902-76-53 16:28:00 Test Item Value Reference Range Interpretation Comments Eosinophils (test code = 0.6 See_Comment [A utomated message] The Eosinophils) system which ge nerated this result tra nsmitted reference range : <=4.0. The reference r bertha was not used to int erpret this result as normal/abnormal . [facility] HospitalNupvpcdVTZPKQDMZS2686-03-44 16:28:00 Test Item Value Reference Range Interpretation Comments Segs-Bands # (test code = Segs-Bands #) 10.1 1.5-8.1 [facility] HospitalFmpnshmPXDJGUIPLT0365-94-85 16:28:00 Test Item Value Reference Range Interpretation Comments Lymphocytes (test code = Lymphocytes) 13.2 20.0-40.0 [facility]2016-10-27 16:28:00 Test Item Value Reference Range Interpretation Comments UA Sq Epi (test code = UA Sq Epi) Few /LPF [facility] HospitalYspyeunJVGIAQSEXB7928-18-06 16:28:00 Test Item Value Reference Range Interpretation Comments Lymphocytes # (test code = Lymphocytes 1.7 1.0-5.5 #) [facility] AND [id number] 16:28:00 Test Item Value Reference Range Interpretation Comments UA Spec Grav (test code = UA Spec 1.015 1 Grav) [facility] AND [id number] 16:28:00 Test Item Value Reference Range Interpretation Comments UA Turbidity (test code = Clear (04/08/16 UA Turbidity) 11:28 AM) [facility] HospitalWotdzifAOJMYDTASG3284-56-28 16:28:00 Test Item Value Reference Range Interpretation Comments Monocytes # (test code 0.7 See_Comment [Aut omated message] The = Monocytes #) system which generated this result tra nsmitted reference range : <=0.8. The reference r bertha was not used to int erpret this result as normal/abnormal . [facility] AND [id number] 16:28:00 Test Item Value Reference Range Interpretation Comments UA Color (test code = Yellow *NA*(04/08/16 UA Color) 11:28 AM) [facility] AND [id number] 16:28:00 Test Item Value Reference Range Interpretation Comments UA Bili (test code = Negative *NA*(04/08/16 UA Bili) 11:28 AM) [facility] HospitalNxeomkvTWEVXAEKDM0120-12-46 16:28:00 Test Item Value Reference Range Interpretation Comments Segs (test code = Segs) 80.1 45.0-75.0 [facility]2016-10-27 16:28:00 Test Item Value Reference Range Interpretation Comments UA Ketones (test code = UA Negative mg/dL Ketones) [facility] HospitalFqsxwzoBCECTQQHXF6838-81-44 16:28:00 Test Item Value Reference Range Interpretation Comments Monocytes (test code = Monocytes) 5.8 2.0-12.0 [facility] AND [id number] 16:28:00 Test Item Value Reference Range Interpretation Comments UA Glucose (test code = UA Negative mg/dL Glucose) [facility]2016-10-27 16:28:00 Test Item Value Reference Range Interpretation Comments UA pH (test code = UA pH) 8.5 1 5.0-8.0 [facility] HospitalHaqkwcmDHEZKKUXCA4849-80-57 16:28:00 Test Item Value Reference Range Interpretation Comments Eosinophils (test code = 0.6 See_Comment [A utomated message] The Eosinophils) system which ge nerated this result tra nsmitted reference range : <=4.0. The reference r bertha was not used to int erpret this result as normal/abnormal . [facility]2016-10-27 16:28:00 Test Item Value Reference Range Interpretation Comments UA Protein (test code = UA Negative mg/dL Protein) [facility] HospitalIxekyckSPTLOUUEAW5871-44-61 16:28:00 Test Item Value Reference Range Interpretation Comments Lymphocytes (test code = Lymphocytes) 13.2 20.0-40.0 [facility]2016-10-27 16:28:00 Test Item Value Reference Range Interpretation Comments UA Leuk Est (test Negative (04/08/16 11:28 code = UA Leuk Est) AM) [facility] [id number] 16:28:00 Test Item Value Reference Range Interpretation Comments UA Sq Epi (test code = UA Sq Epi) Few /LPF [facility] [id number] 16:28:00 Test Item Value Reference Range Interpretation Comments UA Nitrite (test code Negative (04/08/16 = UA Nitrite) 11:28 AM) [facility] [id number] 16:28:00 Test Item Value Reference Range Interpretation Comments UA Urobilinogen (test code = UA 0.2 0.1-1.0 Urobilinogen) [facility] [id number] 16:28:00 Test Item Value Reference Range Interpretation Comments UA Spec Grav (test code = UA Spec 1.015 1 Grav) [facility] [id number] 16:28:00 Test Item Value Reference Range Interpretation Comments UA Blood (test code = Negative (04/08/16 11:28 UA Blood) AM) [facility] [id number] 16:28:00 Test Item Value Reference Range Interpretation Comments UA Turbidity (test code = Clear (04/08/16 UA Turbidity) 11:28 AM) [facility] [id number] 16:28:00 Test Item Value Reference Range Interpretation Comments U Preg (test code = U Negative (04/08/16 11:28 Preg) AM) [facility] [id number] 16:28:00 Test Item Value Reference Range Interpretation Comments UA Color (test code = Yellow *NA*(04/08/16 UA Color) 11:28 AM) [facility] [id number] 16:28:00 Test Item Value Reference Range Interpretation Comments UA Bili (test code = Negative *NA*(04/08/16 UA Bili) 11:28 AM) [facility] [id number] 16:28:00 Test Item Value Reference Range Interpretation Comments UA Ketones (test code = UA Negative mg/dL Ketones) [facility] [id number] 16:28:00 Test Item Value Reference Range Interpretation Comments UA Glucose (test code = UA Negative mg/dL Glucose) [facility] [id number] 16:28:00 Test Item Value Reference Range Interpretation Comments UA pH (test code = UA pH) 8.5 1 5.0-8.0 [facility] [id number] 16:28:00 Test Item Value Reference Range Interpretation Comments UA Protein (test code = UA Negative mg/dL Protein) [facility] [id number] 16:28:00 Test Item Value Reference Range Interpretation Comments UA Leuk Est (test Negative (04/08/16 11:28 code = UA Leuk Est) AM) [facility] [id number] 16:28:00 Test Item Value Reference Range Interpretation Comments UA Nitrite (test code Negative (04/08/16 = UA Nitrite) 11:28 AM) [facility] AND [id number] 16:28:00 Test Item Value Reference Range Interpretation Comments UA Urobilinogen (test code = UA 0.2 0.1-1.0 Urobilinogen) [facility] AND [id number] 16:28:00 Test Item Value Reference Range Interpretation Comments UA Blood (test code = Negative (04/08/16 11:28 UA Blood) AM[facility] [id number] 16:28:00 Test Item Value Reference Range Interpretation Comments U Preg (test code = U Negative (04/08/16 11:28 Preg) AM) [facility] [id number] 16:28:00 Test Item Value Reference Range Interpretation Comments Lipase Lvl (test code = Lipase Lvl) 129 73-393 [facility] GstcidsCGUDTUNHPDKH2613-25-20 16:28:00 Test Item Value Reference Range Interpretation Comments AGAP (test code = AGAP) 9.5 10.0-20.0 [facility] XffcgpwCNZBGWNUOFFM3490-86-65 16:28:00 Test Item Value Reference Range Interpretation Comments B/C Ratio (test code = B/C Ratio) 8 6-25 [facility] HospitalFiconkeHGZGHYSKTVOB5254-95-10 16:28:00 Test Item Value Reference Range Interpretation Comments A/G Ratio (test code = A/G Ratio) 1.2 0.7-1.6 [facility]EbhmtnuGNSEAJETCJPA8321-85-35 16:28:00 Test Item Value Reference Range Interpretation Comments Globulin (test code = Globulin) 3.3 2.7-4.2 [facility] MichiganUybeoswWOBWSCMOIZKF6716-39-16 16:28:00 Test Item Value Reference Range Interpretation Comments CO2 (test code = CO2) 29 24-32 [facility] MichiganYfvhfmoBNUBDBLNIECA2799-91-33 16:28:00 Test Item Value Reference Range Interpretation Comments Chloride Lvl (test code = Chloride Lvl) 106 95-109 [facility] MichiganMthppksBDABJJGTUJNN4513-87-16 16:28:00 Test Item Value Reference Range Interpretation Comments Bili Total (test code = Bili Total) 0.4 0.2-1.3 [facility] MichiganXnbatluMSTOPAEPMQLE3639-78-16 16:28:00 Test Item Value Reference Range Interpretation Comments Calcium Lvl (test code = Calcium Lvl) 8.5 8.5-10.5 [facility] MichiganVfmsfaaIDMWJCYUFRKJ3973-45-91 16:28:00 Test Item Value Reference Range Interpretation Comments Total Protein (test code = Total 7.1 6.4-8.4 Protein) [facility] MichiganFpznsqvBHMWDGYMTOQG7993-94-77 16:28:00 Test Item Value Reference Range Interpretation Comments ASPARTATE TRANSAMINASE 15 See_Comment [Aut omated message] (test code = ASPARTATE The s ystem which TRANSAMINASE) generated this result transmitted ref erence range: <=37. Th e reference range was not used to interpr et this result as normal/abnormal . [facility] MichiganEcaytqpAFSFMZVKXFRU7696-41-01 16:28:00 Test Item Value Reference Range Interpretation Comments eGFR (test code = eGFR) 117 [facility] MichiganTwiwdtzBNLWBZPXWUEG0026-36-01 16:28:00 Test Item Value Reference Range Interpretation Comments Albumin Lvl (test code = Albumin Lvl) 3.8 3.5-5.0 [facility] MichiganVtybltjQJLGMPCWAHCZ3731-03-12 16:28:00 Test Item Value Reference Range Interpretation Comments Glucose Lvl (test code = Glucose Lvl) 114 70-99 [facility] MichiganLyrtpkwVYUQPIARNQYF4323-35-25 16:28:00 Test Item Value Reference Range Interpretation Comments ALANINE AMINOTRANSFERASE 20 See_Comment [A utomated message] (test code = ALANINE The sys tem which AMINOTRANSFERASE) generated this result transmitted ref erence range: <=65. Th e reference range was not used to int erpret this result as normal/abnormal . [facility] MichiganNderpdrPVNBNEXEDLOV1797-07-63 16:28:00 Test Item Value Reference Range Interpretation Comments Alk Phos (test code = Alk Phos) 80 39-136 [facility] MichiganBphwzlvOTTTCHPTRTIZ9031-10-84 16:28:00 Test Item Value Reference Range Interpretation Comments Potassium Lvl (test code = Potassium 3.5 3.5-5.1 Lvl) [facility] MichiganEushkvuABYDVNUKXJWY2601-26-56 16:28:00 Test Item Value Reference Range Interpretation Comments BUN (test code = BUN) 6 7-22 [facility] MichiganAzxviomAQIWXJLSCLYU6782-81-61 16:28:00 Test Item Value Reference Range Interpretation Comments Sodium Lvl (test code = Sodium Lvl) 141 135-145 [facility] MichiganZpdyvleVXAJWTZVEAPO1725-21-72 16:28:00 Test Item Value Reference Range Interpretation Comments Creatinine Lvl (test code = Creatinine 0.71 0.50-1.40 Lvl) [facility] HospitalUcpgxpxMMEOBULOUY1277-02-11 16:28:00 Test Item Value Reference Range Interpretation Comments Basophils (test code = 0.3 See_Comment [Aut omated message] The Basophils) system which ge nerated this result tra nsmitted reference range : <=1.0. The reference r bertha was not used to int erpret this result as normal/abnormal . [facility] HospitalAcrgroeWDNPUZFASS8400-01-86 16:28:00 Test Item Value Reference Range Interpretation Comments Eosinophils # (test code 0.1 See_Comment [A utomated message] The = Eosinophils #) system whic h generated this result tra nsmitted reference range : <=0.5. The reference r bertha was not used to int erpret this result as normal/abnormal . [facility] HospitalItjgwixZXWLLKSKAU5348-60-85 16:28:00 Test Item Value Reference Range Interpretation Comments Segs-Bands # (test code = Segs-Bands #) 10.1 1.5-8.1 [facility] HospitalObszwdhWJJOGKBPYG0709-11-03 16:28:00 Test Item Value Reference Range Interpretation Comments Lymphocytes # (test code = Lymphocytes 1.7 1.0-5.5 #) [facility] HospitalMhuauepXBLFMFAMDK4284-63-34 16:28:00 Test Item Value Reference Range Interpretation Comments Monocytes # (test code 0.7 See_Comment [Aut omated message] The = Monocytes #) system which generated this result tra nsmitted reference range : <=0.8. The reference r bertha was not used to int erpret this result as normal/abnormal . [facility] HospitalVcyxsnaWCAFBUMWLN5693-20-78 16:28:00 Test Item Value Reference Range Interpretation Comments Segs (test code = Segs) 80.1 45.0-75.0 [facility] HospitalWcueeklPXCTPEDZJV1523-37-35 16:28:00 Test Item Value Reference Range Interpretation Comments Monocytes (test code = Monocytes) 5.8 2.0-12.0 [facility] HospitalYouxecrECFJRNGCGF1699-36-61 16:28:00 Test Item Value Reference Range Interpretation Comments Eosinophils (test code = 0.6 See_Comment [A utomated message] The Eosinophils) system which ge nerated this result tra nsmitted reference range : <=4.0. The reference r bertha was not used to int erpret this result as normal/abnormal . [facility] HospitalPavplojAFYOWNTEYK4513-41-43 16:28:00 Test Item Value Reference Range Interpretation Comments Lymphocytes (test code = Lymphocytes) 13.2 20.0-40.0 [facility] AND [id number] 16:28:00 Test Item Value Reference Range Interpretation Comments UA Sq Epi (test code = UA Sq Epi) Few /LPF [facility] AND [id number] 16:28:00 Test Item Value Reference Range Interpretation Comments UA Spec Grav (test code = UA Spec 1.015 1 Grav) [facility] AND [id number] 16:28:00 Test Item Value Reference Range Interpretation Comments UA Turbidity (test code = Clear (04/08/16 UA Turbidity) 11:28 AM) [facility] AND [id number] 16:28:00 Test Item Value Reference Range Interpretation Comments UA Color (test code = Yellow *NA*(04/08/16 UA Color) 11:28 AM) [facility] AND [id number] 16:28:00 Test Item Value Reference Range Interpretation Comments UA Bili (test code = Negative *NA*(04/08/16 UA Bili) 11:28 AM) [facility] AND [id number] 16:28:00 Test Item Value Reference Range Interpretation Comments UA Ketones (test code = UA Negative mg/dL Ketones) [facility] [id number] 16:28:00 Test Item Value Reference Range Interpretation Comments UA Glucose (test code = UA Negative mg/dL Glucose) [facility] [id number] 16:28:00 Test Item Value Reference Range Interpretation Comments UA pH (test code = UA pH) 8.5 1 5.0-8.0 [facility] [id number] 16:28:00 Test Item Value Reference Range Interpretation Comments UA Protein (test code = UA Negative mg/dL Protein) [facility] [id number] 16:28:00 Test Item Value Reference Range Interpretation Comments UA Leuk Est (test Negative (04/08/16 11:28 code = UA Leuk Est) AM) [facility] [id number] 16:28:00 Test Item Value Reference Range Interpretation Comments UA Nitrite (test code Negative (04/08/16 = UA Nitrite) 11:28 AM) [facility] [id number] 16:28:00 Test Item Value Reference Range Interpretation Comments UA Urobilinogen (test code = UA 0.2 0.1-1.0 Urobilinogen) [facility] [id number] 16:28:00 Test Item Value Reference Range Interpretation Comments UA Blood (test code = Negative (04/08/16 11:28 UA Blood) AM) [facility] [id number] 16:28:00 Test Item Value Reference Range Interpretation Comments U Preg (test code = U Negative (04/08/16 11:28 Preg) AM) [facility]annCHE[facility] [id number] 16:28:00 Test Item Value Reference Range Interpretation Comments Lipase Lvl (test code = Lipase Lvl) 129 73-393 [facility] QjwluloPHKRXHNQGXQQ6652-00-26 16:28:00 Test Item Value Reference Range Interpretation Comments AGAP (test code = AGAP) 9.5 10.0-20.0 [facility] NcnbebtVKYXDTPRVWUG3672-02-75 16:28:00 Test Item Value Reference Range Interpretation Comments B/C Ratio (test code = B/C Ratio) 8 6-25 [facility] QnesvkySNLPZWXCSUTA2148-05-22 16:28:00 Test Item Value Reference Range Interpretation Comments A/G Ratio (test code = A/G Ratio) 1.2 0.7-1.6 [facility]WvhwpewKPMEGWIFUQBK4802-21-59 16:28:00 Test Item Value Reference Range Interpretation Comments Globulin (test code = Globulin) 3.3 2.7-4.2 [facility] MichiganCejevnkVEOZZFNYOXML9053-38-05 16:28:00 Test Item Value Reference Range Interpretation Comments CO2 (test code = CO2) 29 24-32 [facility] MichiganRlrzbfzIXTAQEWNJYYH4286-19-38 16:28:00 Test Item Value Reference Range Interpretation Comments Chloride Lvl (test code = Chloride Lvl) 106 95-109 [facility] MichiganQlnhtphQYSNJLIEYDJE2611-43-66 16:28:00 Test Item Value Reference Range Interpretation Comments Bili Total (test code = Bili Total) 0.4 0.2-1.3 [facility] MichiganVjwyjelEXELXDRFHUKT5070-92-09 16:28:00 Test Item Value Reference Range Interpretation Comments Calcium Lvl (test code = Calcium Lvl) 8.5 8.5-10.5 [facility] MichiganOnnwujrOPFCLQLPOIUB6055-22-76 16:28:00 Test Item Value Reference Range Interpretation Comments Total Protein (test code = Total 7.1 6.4-8.4 Protein) [facility] MichiganTgyamftIYMMOKALUJAM1963-68-28 16:28:00 Test Item Value Reference Range Interpretation Comments ASPARTATE TRANSAMINASE 15 See_Comment [Aut omated message] (test code = ASPARTATE The s ystem which TRANSAMINASE) generated this result transmitted ref erence range: <=37. Th e reference range was not used to interpr et this result as normal/abnormal . [facility] MichiganHzlluxoRIASGDDWOPYE3719-11-78 16:28:00 Test Item Value Reference Range Interpretation Comments eGFR (test code = eGFR) 117 [facility] MichiganMybklihZOVXVSYTKIMC2405-07-65 16:28:00 Test Item Value Reference Range Interpretation Comments Albumin Lvl (test code = Albumin Lvl) 3.8 3.5-5.0 [facility]MvrmgykOIYMLCROEHFP1098-26-08 16:28:00 Test Item Value Reference Range Interpretation Comments Glucose Lvl (test code = Glucose Lvl) 114 70-99 [facility] MichiganBuaagsdDTECQNWTYZIT9983-75-27 16:28:00 Test Item Value Reference Range Interpretation Comments ALANINE AMINOTRANSFERASE 20 See_Comment [A utomated message] (test code = ALANINE The sys tem which AMINOTRANSFERASE) generated this result transmitted ref erence range: <=65. Th e reference range was not used to int erpret this result as normal/abnormal . [facility] MichiganPlymjxiNNFUYOKMJNVR1278-73-86 16:28:00 Test Item Value Reference Range Interpretation Comments Alk Phos (test code = Alk Phos) 80 39-136 [facility] MichiganQiavpxbFERCSUHEZEEX9772-97-12 16:28:00 Test Item Value Reference Range Interpretation Comments Potassium Lvl (test code = Potassium 3.5 3.5-5.1 Lvl) [facility] MichiganLwdndolPDHITSTFBLWA4245-40-10 16:28:00 Test Item Value Reference Range Interpretation Comments BUN (test code = BUN) 6 7-22 [facility] MichiganAqhnnvhCWMPJUKWZLNW8027-18-46 16:28:00 Test Item Value Reference Range Interpretation Comments Sodium Lvl (test code = Sodium Lvl) 141 135-145 [facility] MichiganGubickrNSEFNOTABNVE6840-34-81 16:28:00 Test Item Value Reference Range Interpretation Comments Creatinine Lvl (test code = Creatinine 0.71 0.50-1.40 Lvl) [facility] HospitalHidtbqpFRIMFVTVAU9953-11-68 16:28:00 Test Item Value Reference Range Interpretation Comments Basophils (test code = 0.3 See_Comment [Aut omated message] The Basophils) system which ge nerated this result tra nsmitted reference range : <=1.0. The reference r bertha was not used to int erpret this result as normal/abnormal . [facility] HospitalSrzxbjiYMTCNXXKQJ5419-12-36 16:28:00 Test Item Value Reference Range Interpretation Comments Eosinophils # (test code 0.1 See_Comment [A utomated message] The = Eosinophils #) system whic h generated this result tra nsmitted reference range : <=0.5. The reference r bertha was not used to int erpret this result as normal/abnormal . [facility] HospitalTujulsxQUMRACBXIM8648-66-21 16:28:00 Test Item Value Reference Range Interpretation Comments Segs-Bands # (test code = Segs-Bands #) 10.1 1.5-8.1 [facility] HospitalXlkhmvmWLTLHSWAUU5754-94-76 16:28:00 Test Item Value Reference Range Interpretation Comments Lymphocytes # (test code = Lymphocytes 1.7 1.0-5.5 #) [facility] HospitalUwgzobzHICPCIISSW1242-44-00 16:28:00 Test Item Value Reference Range Interpretation Comments Monocytes # (test code 0.7 See_Comment [Aut omated message] The = Monocytes #) system which generated this result tra nsmitted reference range : <=0.8. The reference r bertha was not used to int erpret this result as normal/abnormal . [facility] HospitalQxgcipqCPYZSGYZNA6319-84-54 16:28:00 Test Item Value Reference Range Interpretation Comments Segs (test code = Segs) 80.1 45.0-75.0 [facility] HospitalDmjctggRSGOBQOVSU7599-52-69 16:28:00 Test Item Value Reference Range Interpretation Comments Monocytes (test code = Monocytes) 5.8 2.0-12.0 [facility] HospitalNaggxidLPKHOPQWAZ0536-97-58 16:28:00 Test Item Value Reference Range Interpretation Comments Eosinophils (test code = 0.6 See_Comment [A utomated message] The Eosinophils) system which ge nerated this result tra nsmitted reference range : <=4.0. The reference r bertha was not used to int erpret this result as normal/abnormal . [facility] HospitalVwvjqhdVLOGNTWUKJ6415-55-79 16:28:00 Test Item Value Reference Range Interpretation Comments Lymphocytes (test code = Lymphocytes) 13.2 20.0-40.0 [facility] AND [id number] 16:28:00 Test Item Value Reference Range Interpretation Comments UA Sq Epi (test code = UA Sq Epi) Few /LPF [facility] AND [id number] 16:28:00 Test Item Value Reference Range Interpretation Comments UA Spec Grav (test code = UA Spec 1.015 1 Grav) [facility] AND [id number] 16:28:00 Test Item Value Reference Range Interpretation Comments UA Turbidity (test code = Clear (04/08/16 UA Turbidity) 11:28 AM) [facility] AND [id number] 16:28:00 Test Item Value Reference Range Interpretation Comments UA Color (test code = Yellow *NA*(04/08/16 UA Color) 11:28 AM) [facility] AND [id number] 16:28:00 Test Item Value Reference Range Interpretation Comments UA Bili (test code = Negative *NA*(04/08/16 UA Bili) 11:28 AM) [facility] [id number] 16:28:00 Test Item Value Reference Range Interpretation Comments UA Ketones (test code = UA Negative mg/dL Ketones) [facility] [id number] 16:28:00 Test Item Value Reference Range Interpretation Comments UA Glucose (test code = UA Negative mg/dL Glucose) [facility] [id number] 16:28:00 Test Item Value Reference Range Interpretation Comments UA pH (test code = UA pH) 8.5 1 5.0-8.0 [facility] [id number] 16:28:00 Test Item Value Reference Range Interpretation Comments UA Protein (test code = UA Negative mg/dL Protein) [facility] [id number] 16:28:00 Test Item Value Reference Range Interpretation Comments UA Leuk Est (test Negative (04/08/16 11:28 code = UA Leuk Est) AM) [facility] [id number] 16:28:00 Test Item Value Reference Range Interpretation Comments UA Nitrite (test code Negative (04/08/16 = UA Nitrite) 11:28 AM) [facility] [id number] 16:28:00 Test Item Value Reference Range Interpretation Comments UA Urobilinogen (test code = UA 0.2 0.1-1.0 Urobilinogen) [facility] [id number] 16:28:00 Test Item Value Reference Range Interpretation Comments UA Blood (test code = Negative (04/08/16 11:28 UA Blood) AM) [facility] [id number] 16:28:00 Test Item Value Reference Range Interpretation Comments U Preg (test code = U Negative (04/08/16 11:28 Preg) AM) [facility] [id number] 16:28:00 Test Item Value Reference Range Interpretation Comments Lipase Lvl (test code = Lipase Lvl) 129 73-393 [facility] DkuzytlCJZDYUKERDBQ0589-62-92 16:28:00 Test Item Value Reference Range Interpretation Comments AGAP (test code = AGAP) 9.5 10.0-20.0 [facility] CtqaeccJVHSPAEWAJGY5082-09-94 16:28:00 Test Item Value Reference Range Interpretation Comments B/C Ratio (test code = B/C Ratio) 8 6-25 [facility]UvjcvmjGCWULQKAKYYL8938-49-55 16:28:00 Test Item Value Reference Range Interpretation Comments A/G Ratio (test code = A/G Ratio) 1.2 0.7-1.6 [facility] MichiganWnjjeitOSOLJBDWCVJT4394-33-31 16:28:00 Test Item Value Reference Range Interpretation Comments Globulin (test code = Globulin) 3.3 2.7-4.2 [facility] MichiganTvqncbjWVULXFVJBQRF9827-81-91 16:28:00 Test Item Value Reference Range Interpretation Comments CO2 (test code = CO2) 29 24-32 [facility] MichiganRvivlkoZBNMNJAQTXHS3888-14-80 16:28:00 Test Item Value Reference Range Interpretation Comments Chloride Lvl (test code = Chloride Lvl) 106 95-109 [facility] MichiganQkuwgcxIYJSDJFNVDAC4802-88-43 16:28:00 Test Item Value Reference Range Interpretation Comments Bili Total (test code = Bili Total) 0.4 0.2-1.3 [facility] MichiganEcqrhkkACNCWWZSHNKD5693-77-69 16:28:00 Test Item Value Reference Range Interpretation Comments Calcium Lvl (test code = Calcium Lvl) 8.5 8.5-10.5 [facility] MichiganTdidqybIBMXTDXPWWVE4580-50-74 16:28:00 Test Item Value Reference Range Interpretation Comments Total Protein (test code = Total 7.1 6.4-8.4 Protein) [facility] MichiganDknqharKFICNMVGABQO4437-39-02 16:28:00 Test Item Value Reference Range Interpretation Comments ASPARTATE TRANSAMINASE 15 See_Comment [Aut omated message] (test code = ASPARTATE The s ystem which TRANSAMINASE) generated this result transmitted ref erence range: <=37. Th e reference range was not used to interpr et this result as normal/abnormal . [facility] MichiganQdwcoljKATGLHDXGJSC5211-11-59 16:28:00 Test Item Value Reference Range Interpretation Comments eGFR (test code = eGFR) 117 [facility] MichiganIfmvbxxZAYIMAGKISBY9090-62-96 16:28:00 Test Item Value Reference Range Interpretation Comments Albumin Lvl (test code = Albumin Lvl) 3.8 3.5-5.0 [facility] MichiganHledkujXWOASTXMKRIG6428-03-80 16:28:00 Test Item Value Reference Range Interpretation Comments Glucose Lvl (test code = Glucose Lvl) 114 70-99 [facility] MichiganGyeihiqFKCBLQKTXEFD3266-00-63 16:28:00 Test Item Value Reference Range Interpretation Comments ALANINE AMINOTRANSFERASE 20 See_Comment [A utomated message] (test code = ALANINE The sys tem which AMINOTRANSFERASE) generated this result transmitted ref erence range: <=65. Th e reference range was not used to int erpret this result as normal/abnormal . [facility] MichiganPjvntyaTEKQCFXROHTW3174-24-64 16:28:00 Test Item Value Reference Range Interpretation Comments Alk Phos (test code = Alk Phos) 80 39-136 [facility] MichiganSoxssesYRIGLWTOZMFX9227-87-18 16:28:00 Test Item Value Reference Range Interpretation Comments Potassium Lvl (test code = Potassium 3.5 3.5-5.1 Lvl) [facility] MichiganPixbvilFTNBKECFWNUE9999-82-21 16:28:00 Test Item Value Reference Range Interpretation Comments BUN (test code = BUN) 6 7-22 [facility] MichiganTqttjmuERQVXVPXBZVO9798-79-84 16:28:00 Test Item Value Reference Range Interpretation Comments Sodium Lvl (test code = Sodium Lvl) 141 135-145 [facility] MichiganOdjpxauZSWPQZFHNSMV2248-98-53 16:28:00 Test Item Value Reference Range Interpretation Comments Creatinine Lvl (test code = Creatinine 0.71 0.50-1.40 Lvl) [facility] HospitalTpmudpmKDLTKGNUPG5037-68-33 16:28:00 Test Item Value Reference Range Interpretation Comments Basophils (test code = 0.3 See_Comment [Aut omated message] The Basophils) system which ge nerated this result tra nsmitted reference range : <=1.0. The reference r bertha was not used to int erpret this result as normal/abnormal . [facility] HospitalLoyogyyKYERPQIBTL6084-91-46 16:28:00 Test Item Value Reference Range Interpretation Comments Eosinophils # (test code 0.1 See_Comment [A utomated message] The = Eosinophils #) system whic h generated this result tra nsmitted reference range : <=0.5. The reference r bertha was not used to int erpret this result as normal/abnormal . [facility] HospitalCqbhzfrFYDMMGBLTI0540-71-35 16:28:00 Test Item Value Reference Range Interpretation Comments Segs-Bands # (test code = Segs-Bands #) 10.1 1.5-8.1 [facility] HospitalRquyjrrWMGRXCYEIT7253-93-51 16:28:00 Test Item Value Reference Range Interpretation Comments Lymphocytes # (test code = Lymphocytes 1.7 1.0-5.5 #) [facility] HospitalVgfcxvaSSJGTJYGWT7665-60-74 16:28:00 Test Item Value Reference Range Interpretation Comments Monocytes # (test code 0.7 See_Comment [Aut omated message] The = Monocytes #) system which generated this result tra nsmitted reference range : <=0.8. The reference r bertha was not used to int erpret this result as normal/abnormal . [facility] HospitalNstvjxoCTPWQUEKXM5604-69-81 16:28:00 Test Item Value Reference Range Interpretation Comments Segs (test code = Segs) 80.1 45.0-75.0 [facility] HospitalXuetgyeCEWFFWYMEZ5868-66-77 16:28:00 Test Item Value Reference Range Interpretation Comments Monocytes (test code = Monocytes) 5.8 2.0-12.0 [facility] HospitalRgkgtphQEEMILVFQK6238-12-40 16:28:00 Test Item Value Reference Range Interpretation Comments Eosinophils (test code = 0.6 See_Comment [A utomated message] The Eosinophils) system which ge nerated this result tra nsmitted reference range : <=4.0. The reference r bertha was not used to int erpret this result as normal/abnormal . [facility] HospitalTewuivdLWGHGTNOWU1201-23-17 16:28:00 Test Item Value Reference Range Interpretation Comments Lymphocytes (test code = Lymphocytes) 13.2 20.0-40.0 [facility] AND [id number] 16:28:00 Test Item Value Reference Range Interpretation Comments UA Sq Epi (test code = UA Sq Epi) Few /LPF [facility] AND [id number] 16:28:00 Test Item Value Reference Range Interpretation Comments UA Spec Grav (test code = UA Spec 1.015 1 Grav) [facility] AND [id number] 16:28:00 Test Item Value Reference Range Interpretation Comments UA Turbidity (test code = Clear (04/08/16 UA Turbidity) 11:28 AM) [facility] AND [id number] 16:28:00 Test Item Value Reference Range Interpretation Comments UA Color (test code = Yellow *NA*(04/08/16 UA Color) 11:28 AM) [facility] [id number] 16:28:00 Test Item Value Reference Range Interpretation Comments UA Bili (test code = Negative *NA*(04/08/16 UA Bili) 11:28 AM) [facility] [id number] 16:28:00 Test Item Value Reference Range Interpretation Comments UA Ketones (test code = UA Negative mg/dL Ketones) [facility] [id number] 16:28:00 Test Item Value Reference Range Interpretation Comments UA Glucose (test code = UA Negative mg/dL Glucose) [facility] [id number] 16:28:00 Test Item Value Reference Range Interpretation Comments UA pH (test code = UA pH) 8.5 1 5.0-8.0 [facility] [id number] 16:28:00 Test Item Value Reference Range Interpretation Comments UA Protein (test code = UA Negative mg/dL Protein) [facility] [id number] 16:28:00 Test Item Value Reference Range Interpretation Comments UA Leuk Est (test Negative (04/08/16 11:28 code = UA Leuk Est) AM) [facility] [id number] 16:28:00 Test Item Value Reference Range Interpretation Comments UA Nitrite (test code Negative (04/08/16 = UA Nitrite) 11:28 AM) [facility] [id number] 16:28:00 Test Item Value Reference Range Interpretation Comments UA Urobilinogen (test code = UA 0.2 0.1-1.0 Urobilinogen) [facility] [id number] 16:28:00 Test Item Value Reference Range Interpretation Comments UA Blood (test code = Negative (04/08/16 11:28 UA Blood) AM) [facility] [id number] 16:28:00 Test Item Value Reference Range Interpretation Comments U Preg (test code = U Negative (04/08/16 11:28 Preg) AM) [facility] HermannCHEM [id number] 16:28:00 Test Item Value Reference Range Interpretation Comments Lipase Lvl (test code = Lipase Lvl) 129 73-393 [facility] MichiganVaoywpgCKIGVRMAGBGZ1827-57-00 16:28:00 Test Item Value Reference Range Interpretation Comments AGAP (test code = AGAP) 9.5 10.0-20.0 [facility] MichiganPdcutpfYOMNZBFXQIEE8533-29-18 16:28:00 Test Item Value Reference Range Interpretation Comments B/C Ratio (test code = B/C Ratio) 8 6-25 [facility] MichiganBnerxrfUXVXGEFIDLTZ3445-43-14 16:28:00 Test Item Value Reference Range Interpretation Comments A/G Ratio (test code = A/G Ratio) 1.2 0.7-1.6 [facility] MichiganDkcfbdmELLUILITDBWV3592-12-82 16:28:00 Test Item Value Reference Range Interpretation Comments Globulin (test code = Globulin) 3.3 2.7-4.2 [facility] MichiganNfvbykbBBQTRISZTXEF0142-46-69 16:28:00 Test Item Value Reference Range Interpretation Comments CO2 (test code = CO2) 29 24-32 [facility] MichiganKaljwklKWKAXXEYKQKZ3376-33-21 16:28:00 Test Item Value Reference Range Interpretation Comments Chloride Lvl (test code = Chloride Lvl) 106 95-109 [facility] MichiganSldbwxcITYAGKWCOGVP3020-33-38 16:28:00 Test Item Value Reference Range Interpretation Comments Bili Total (test code = Bili Total) 0.4 0.2-1.3 [facility] MichiganFixikntGGJVRQUREDGA2917-83-80 16:28:00 Test Item Value Reference Range Interpretation Comments Calcium Lvl (test code = Calcium Lvl) 8.5 8.5-10.5 [facility] MichiganPqgkjtoMERXDPNUJEDJ0422-90-23 16:28:00 Test Item Value Reference Range Interpretation Comments Total Protein (test code = Total 7.1 6.4-8.4 Protein) [facility] MichiganCufyzwpRNOIWNAAPWWO3721-07-79 16:28:00 Test Item Value Reference Range Interpretation Comments ASPARTATE TRANSAMINASE 15 See_Comment [Aut omated message] (test code = ASPARTATE The s ystem which TRANSAMINASE) generated this result transmitted ref erence range: <=37. Th e reference range was not used to interpr et this result as normal/abnormal . [facility] MichiganQtnzjnaPJMMSYPUTDTR0246-01-43 16:28:00 Test Item Value Reference Range Interpretation Comments eGFR (test code = eGFR) 117 [facility] MichiganCkxjuwvJNXLNBDWNSSO1830-98-48 16:28:00 Test Item Value Reference Range Interpretation Comments Albumin Lvl (test code = Albumin Lvl) 3.8 3.5-5.0 [facility] MichiganJjzutvnQYRBCKJYXWFZ6500-82-88 16:28:00 Test Item Value Reference Range Interpretation Comments Glucose Lvl (test code = Glucose Lvl) 114 70-99 [facility] MichiganLnrdgrqGAAIKSGFRPFJ0934-92-28 16:28:00 Test Item Value Reference Range Interpretation Comments ALANINE AMINOTRANSFERASE 20 See_Comment [A utomated message] (test code = ALANINE The sys tem which AMINOTRANSFERASE) generated this result transmitted ref erence range: <=65. Th e reference range was not used to int erpret this result as normal/abnormal . [facility]YqoheuuXIEKBNMBWXOZ2994-04-80 16:28:00 Test Item Value Reference Range Interpretation Comments Alk Phos (test code = Alk Phos) 80 39-136 [facility]PzedefyNITFRATTYFBH5213-82-00 16:28:00 Test Item Value Reference Range Interpretation Comments Potassium Lvl (test code = Potassium 3.5 3.5-5.1 Lvl) [facility]ZxshnymOXGXKRPUXTQO2705-69-86 16:28:00 Test Item Value Reference Range Interpretation Comments BUN (test code = BUN) 6 7-22 [facility]MaliqpyKEIDHJOYDEFC8443-17-29 16:28:00 Test Item Value Reference Range Interpretation Comments Sodium Lvl (test code = Sodium Lvl) 141 135-145 [facility]FgxoarhDPPVYZKFCFYR6819-94-47 16:28:00 Test Item Value Reference Range Interpretation Comments Creatinine Lvl (test code = Creatinine 0.71 0.50-1.40 Lvl) [facility]MxdopwpSLLRACERAI1271-92-18 16:28:00 Test Item Value Reference Range Interpretation Comments Basophils (test code = 0.3 See_Comment [Aut omated message] The Basophils) system which ge nerated this result tra nsmitted reference range : <=1.0. The reference r bertha was not used to int erpret this result as normal/abnormal . [facility] HospitalNylcmhfWSGJHCPYFH7756-79-76 16:28:00 Test Item Value Reference Range Interpretation Comments Eosinophils # (test code 0.1 See_Comment [A utomated message] The = Eosinophils #) system whic h generated this result tra nsmitted reference range : <=0.5. The reference r bertha was not used to int erpret this result as normal/abnormal . [facility] HospitalAgnvboyVHCDTCABCP2323-24-59 16:28:00 Test Item Value Reference Range Interpretation Comments Segs-Bands # (test code = Segs-Bands #) 10.1 1.5-8.1 [facility] HospitalIjoszvxXEXLHBJURR9105-61-81 16:28:00 Test Item Value Reference Range Interpretation Comments Lymphocytes # (test code = Lymphocytes 1.7 1.0-5.5 #) [facility] HospitalNtfkehxCRXIIJLYUZ6428-61-75 16:28:00 Test Item Value Reference Range Interpretation Comments Monocytes # (test code 0.7 See_Comment [Aut omated message] The = Monocytes #) system which generated this result tra nsmitted reference range : <=0.8. The reference r bertha was not used to int erpret this result as normal/abnormal . [facility] HospitalZqofodwUJFLNYGOHR1419-39-21 16:28:00 Test Item Value Reference Range Interpretation Comments Segs (test code = Segs) 80.1 45.0-75.0 [facility] HospitalUjckqqpCYZNQCKXPB5734-66-83 16:28:00 Test Item Value Reference Range Interpretation Comments Monocytes (test code = Monocytes) 5.8 2.0-12.0 [facility] HospitalEtbaniqUGBDADYKHN2027-56-89 16:28:00 Test Item Value Reference Range Interpretation Comments Eosinophils (test code = 0.6 See_Comment [A utomated message] The Eosinophils) system which ge nerated this result tra nsmitted reference range : <=4.0. The reference r bertha was not used to int erpret this result as normal/abnormal . [facility] HospitalIkqvkzuZJEADZKDRG6586-59-12 16:28:00 Test Item Value Reference Range Interpretation Comments Lymphocytes (test code = Lymphocytes) 13.2 20.0-40.0 [facility] AND [id number] 16:28:00 Test Item Value Reference Range Interpretation Comments UA Sq Epi (test code = UA Sq Epi) Few /LPF [facility] AND [id number] 16:28:00 Test Item Value Reference Range Interpretation Comments UA Spec Grav (test code = UA Spec 1.015 1 Grav) [facility] AND [id number] 16:28:00 Test Item Value Reference Range Interpretation Comments UA Turbidity (test code = Clear (04/08/16 UA Turbidity) 11:28 AM) [facility] [id number] 16:28:00 Test Item Value Reference Range Interpretation Comments UA Color (test code = Yellow *NA*(04/08/16 UA Color) 11:28 AM) [facility] AND [id number] 16:28:00 Test Item Value Reference Range Interpretation Comments UA Bili (test code = Negative *NA*(04/08/16 UA Bili) 11:28 AM) [facility] AND [id number] 16:28:00 Test Item Value Reference Range Interpretation Comments UA Ketones (test code = UA Negative mg/dL Ketones) [facility] AND [id number] 16:28:00 Test Item Value Reference Range Interpretation Comments UA Glucose (test code = UA Negative mg/dL Glucose) [facility] AND [id number] 16:28:00 Test Item Value Reference Range Interpretation Comments UA pH (test code = UA pH) 8.5 1 5.0-8.0 [facility] AND [id number] 16:28:00 Test Item Value Reference Range Interpretation Comments UA Protein (test code = UA Negative mg/dL Protein) [facility] AND [id number] 16:28:00 Test Item Value Reference Range Interpretation Comments UA Leuk Est (test Negative (04/08/16 11:28 code = UA Leuk Est) AM) [facility] AND [id number] 16:28:00 Test Item Value Reference Range Interpretation Comments UA Nitrite (test code Negative (04/08/16 = UA Nitrite) 11:28 AM) [facility] AND [id number] 16:28:00 Test Item Value Reference Range Interpretation Comments UA Urobilinogen (test code = UA 0.2 0.1-1.0 Urobilinogen) [facility] [id number] 16:28:00 Test Item Value Reference Range Interpretation Comments UA Blood (test code = Negative (04/08/16 11:28 UA Blood) AM) [facility] [id number] 16:28:00 Test Item Value Reference Range Interpretation Comments U Preg (test code = U Negative (04/08/16 11:28 Preg) AM) [facility]annCHE[facility] [id number] 16:28:00 Test Item Value Reference Range Interpretation Comments Lipase Lvl (test code = Lipase Lvl) 129 73-393 [facility]PitoqvmJVYYJQMHTQDF1074-32-76 16:28:00 Test Item Value Reference Range Interpretation Comments AGAP (test code = AGAP) 9.5 10.0-20.0 [facility]VbrdzsqXJBRFDZAIKTT7525-55-96 16:28:00 Test Item Value Reference Range Interpretation Comments B/C Ratio (test code = B/C Ratio) 8 6-25 [facility]NaxrcmrKUFAFUJJVMKC4189-00-82 16:28:00 Test Item Value Reference Range Interpretation Comments A/G Ratio (test code = A/G Ratio) 1.2 0.7-1.6 [facility] MichiganDmmumisSWKPTTBVSRPB7196-95-18 16:28:00 Test Item Value Reference Range Interpretation Comments Globulin (test code = Globulin) 3.3 2.7-4.2 [facility]MjbplxdQVEDFEDPHGEW9210-11-71 16:28:00 Test Item Value Reference Range Interpretation Comments CO2 (test code = CO2) 29 24-32 [facility]AalfmqnJGSJLAIEYPPP6669-16-99 16:28:00 Test Item Value Reference Range Interpretation Comments Chloride Lvl (test code = Chloride Lvl) 106 95-109 [facility]XurzlsxONZCVDTCOVNP7759-57-14 16:28:00 Test Item Value Reference Range Interpretation Comments Bili Total (test code = Bili Total) 0.4 0.2-1.3 [facility]WdcbnhvDBVNPEWBLIVX3949-70-58 16:28:00 Test Item Value Reference Range Interpretation Comments Calcium Lvl (test code = Calcium Lvl) 8.5 8.5-10.5 [facility]QwvqrebDYUTWMZQDUAF5275-74-12 16:28:00 Test Item Value Reference Range Interpretation Comments Total Protein (test code = Total 7.1 6.4-8.4 Protein) [facility]AleqhpkMQALIRJVFPOC4102-21-15 16:28:00 Test Item Value Reference Range Interpretation Comments ASPARTATE TRANSAMINASE 15 See_Comment [Aut omated message] (test code = ASPARTATE The s ystem which TRANSAMINASE) generated this result transmitted ref erence range: <=37. Th e reference range was not used to interpr et this result as normal/abnormal . [facility]XmpaevkUHAWYSMAJICA8694-56-58 16:28:00 Test Item Value Reference Range Interpretation Comments eGFR (test code = eGFR) 117 [facility]KbayuovEKUGVYAXTMKV9919-20-31 16:28:00 Test Item Value Reference Range Interpretation Comments Albumin Lvl (test code = Albumin Lvl) 3.8 3.5-5.0 [facility]DigxwmbWXWRRTAUDUCO5363-31-06 16:28:00 Test Item Value Reference Range Interpretation Comments Glucose Lvl (test code = Glucose Lvl) 114 70-99 [facility]NtrhfcfZOMIEEFWPLUU9154-89-14 16:28:00 Test Item Value Reference Range Interpretation Comments ALANINE AMINOTRANSFERASE 20 See_Comment [A utomated message] (test code = ALANINE The sys tem which AMINOTRANSFERASE) generated this result transmitted ref erence range: <=65. Th e reference range was not used to int erpret this result as normal/abnormal . [facility]JaxnwfiBUQIKNCYZVJB0220-01-22 16:28:00 Test Item Value Reference Range Interpretation Comments Alk Phos (test code = Alk Phos) 80 39-136 [facility]CbwwydeTSZDLHHFUDSV8938-56-99 16:28:00 Test Item Value Reference Range Interpretation Comments Potassium Lvl (test code = Potassium 3.5 3.5-5.1 Lvl) [facility]NihlhoxWKBJMKSERRYG2115-20-28 16:28:00 Test Item Value Reference Range Interpretation Comments BUN (test code = BUN) 6 7-22 [facility]QmclhpjZUIUVKAJTYBS9257-56-31 16:28:00 Test Item Value Reference Range Interpretation Comments Sodium Lvl (test code = Sodium Lvl) 141 135-145 [facility]FbtbovkVFJCSIHDLJGW3780-61-36 16:28:00 Test Item Value Reference Range Interpretation Comments Creatinine Lvl (test code = Creatinine 0.71 0.50-1.40 Lvl) [facility] HospitalAfymumaCAVHXNRVJX9257-44-82 16:28:00 Test Item Value Reference Range Interpretation Comments Basophils (test code = 0.3 See_Comment [Aut omated message] The Basophils) system which ge nerated this result tra nsmitted reference range : <=1.0. The reference r bertha was not used to int erpret this result as normal/abnormal . [facility] HospitalHquitycEUZEUZALQP8748-88-78 16:28:00 Test Item Value Reference Range Interpretation Comments Eosinophils # (test code 0.1 See_Comment [A utomated message] The = Eosinophils #) system whic h generated this result tra nsmitted reference range : <=0.5. The reference r bertha was not used to int erpret this result as normal/abnormal . [facility] HospitalNgycdduFBGLFYGEGA4176-41-25 16:28:00 Test Item Value Reference Range Interpretation Comments Segs-Bands # (test code = Segs-Bands #) 10.1 1.5-8.1 [facility] HospitalRnqpnyjHOTPHBXTPH2927-51-27 16:28:00 Test Item Value Reference Range Interpretation Comments Lymphocytes # (test code = Lymphocytes 1.7 1.0-5.5 #) [facility] HospitalTgrnhftVROGHXVVAK2984-41-35 16:28:00 Test Item Value Reference Range Interpretation Comments Monocytes # (test code 0.7 See_Comment [Aut omated message] The = Monocytes #) system which generated this result tra nsmitted reference range : <=0.8. The reference r bertha was not used to int erpret this result as normal/abnormal . [facility] HospitalRhppokwHSWUIIETXP5612-00-73 16:28:00 Test Item Value Reference Range Interpretation Comments Segs (test code = Segs) 80.1 45.0-75.0 [facility] HospitalBmfjgygVOJJJREHZW9603-39-45 16:28:00 Test Item Value Reference Range Interpretation Comments Monocytes (test code = Monocytes) 5.8 2.0-12.0 [facility] HospitalRsspnfwWERNEAUSOV6794-57-92 16:28:00 Test Item Value Reference Range Interpretation Comments Eosinophils (test code = 0.6 See_Comment [A utomated message] The Eosinophils) system which ge nerated this result tra nsmitted reference range : <=4.0. The reference r bertha was not used to int erpret this result as normal/abnormal . [facility] HospitalFbqccupXSDOWASKWK2312-90-75 16:28:00 Test Item Value Reference Range Interpretation Comments Lymphocytes (test code = Lymphocytes) 13.2 20.0-40.0 [facility]2016-10-27 16:28:00 Test Item Value Reference Range Interpretation Comments UA Sq Epi (test code = UA Sq Epi) Few /LPF [facility]2016-10-27 16:28:00 Test Item Value Reference Range Interpretation Comments UA Spec Grav (test code = UA Spec 1.015 1 Grav) [facility] AND [id number] 16:28:00 Test Item Value Reference Range Interpretation Comments UA Turbidity (test code = Clear (04/08/16 UA Turbidity) 11:28 AM) [facility] AND [id number] 16:28:00 Test Item Value Reference Range Interpretation Comments UA Color (test code = Yellow *NA*(04/08/16 UA Color) 11:28 AM) [facility] AND [id number] 16:28:00 Test Item Value Reference Range Interpretation Comments UA Bili (test code = Negative *NA*(04/08/16 UA Bili) 11:28 AM) [facility] AND [id number] 16:28:00 Test Item Value Reference Range Interpretation Comments UA Ketones (test code = UA Negative mg/dL Ketones) [facility] AND [id number] 16:28:00 Test Item Value Reference Range Interpretation Comments UA Glucose (test code = UA Negative mg/dL Glucose) [facility] AND [id number] 16:28:00 Test Item Value Reference Range Interpretation Comments UA pH (test code = UA pH) 8.5 1 5.0-8.0 [facility] AND [id number] 16:28:00 Test Item Value Reference Range Interpretation Comments UA Protein (test code = UA Negative mg/dL Protein) [facility] AND [id number] 16:28:00 Test Item Value Reference Range Interpretation Comments UA Leuk Est (test Negative (04/08/16 11:28 code = UA Leuk Est) AM) [facility] AND [id number] 16:28:00 Test Item Value Reference Range Interpretation Comments UA Nitrite (test code Negative (04/08/16 = UA Nitrite) 11:28 AM) [facility] AND [id number] 16:28:00 Test Item Value Reference Range Interpretation Comments UA Urobilinogen (test code = UA 0.2 0.1-1.0 Urobilinogen) [facility] AND [id number] 16:28:00 Test Item Value Reference Range Interpretation Comments UA Blood (test code = Negative (04/08/16 11:28 UA Blood) AM[facility] [id number] 16:28:00 Test Item Value Reference Range Interpretation Comments U Preg (test code = U Negative (04/08/16 11:28 Preg) AM) [facility]QtuabpzVBJJUTKUZLMD5688-75-25 11:08:00 Test Item Value Reference Range Interpretation Comments AGAP (test code = AGAP) 14.3 10.0-20.0 [facility] MichiganLbhsensYSRIIPOYZJIS7848-34-51 11:08:00 Test Item Value Reference Range Interpretation Comments Sodium Lvl (test code = Sodium Lvl) 140 135-145 [facility]GbqfzfmBDDGMLTQLEBB4244-19-45 11:08:00 Test Item Value Reference Range Interpretation Comments Potassium Lvl (test code = Potassium 3.3 3.5-5.1 Lvl) [facility] MichiganJfgarylRKOMGYZGYIEP8532-68-69 11:08:00 Test Item Value Reference Range Interpretation Comments CO2 (test code = CO2) 23 24-32 [facility]AfhayyyYJDRSXXPHBHC6731-47-90 11:08:00 Test Item Value Reference Range Interpretation Comments Calcium Lvl (test code = Calcium Lvl) 7.6 8.5-10.5 [facility] MichiganGlqiysrTWZGKYMXJVBX8865-69-87 11:08:00 Test Item Value Reference Range Interpretation Comments Creatinine Lvl (test code = Creatinine 0.64 0.50-1.40 Lvl) [facility] MichiganKehrzunVEIMLNNTAIUA7579-71-86 11:08:00 Test Item Value Reference Range Interpretation Comments BUN (test code = BUN) 5 7-22 [facility]PbneiimSUDYJNLCDEUT1207-58-48 11:08:00 Test Item Value Reference Range Interpretation Comments Chloride Lvl (test code = Chloride Lvl) 106 95-109 [facility]WddhmfgRBVMLWSGDNII8133-37-66 11:08:00 Test Item Value Reference Range Interpretation Comments eGFR (test code = eGFR) 123 [facility]BfbzhnqKRQYMDKIKXJV3034-02-53 11:08:00 Test Item Value Reference Range Interpretation Comments Glucose Lvl (test code = Glucose Lvl) 108 70-99 [facility] SystemFaklymbIHYTDZSWHF9130-52-26 11:08:00 Test Item Value Reference Range Interpretation Comments Platelet (test code = Platelet) 371 133-450 [facility] SystemFtiporxWVRILVMCND9215-62-22 11:08:00 Test Item Value Reference Range Interpretation Comments MPV (test code = MPV) 8.1 7.4-10.4 [facility] HospitalKjgquzfUVGEFDHHOA5287-11-04 11:08:00 Test Item Value Reference Range Interpretation Comments MCV (test code = MCV) 82.2 80.0-98.0 [facility] HospitalTerqsolRRYQLJITUZ8305-78-60 11:08:00 Test Item Value Reference Range Interpretation Comments MCHC (test code = MCHC) 32.4 32.0-36.0 [facility] HospitalBibdcsqQIDCBHOGVR0861-21-39 11:08:00 Test Item Value Reference Range Interpretation Comments RDW (test code = RDW) 17.7 11.5-14.5 [facility] HospitalBosspvxEAZYROOGCL4564-10-55 11:08:00 Test Item Value Reference Range Interpretation Comments MCH (test code = MCH) 26.7 pg 27.0-31.0 [facility] HospitalRwdogtqBQANEUDSOH4648-35-01 11:08:00 Test Item Value Reference Range Interpretation Comments RBC X 10x6 (test code = RBC X 10x6) 3.93 4.20-5.40 [facility] HospitalGpvghkkZZJSBGJXBG1897-95-03 11:08:00 Test Item Value Reference Range Interpretation Comments Hct (test code = Hct) 32.3 36.0-48.0 [facility] HospitalItqkjiiEIMDERCRUD2532-04-13 11:08:00 Test Item Value Reference Range Interpretation Comments Hgb (test code = Hgb) 10.5 12.0-16.0 [facility] HospitalBpwbekcCZTASYELJP5345-36-72 11:08:00 Test Item Value Reference Range Interpretation Comments WBC X 10x3 (test code = WBC X 10x3) 9.5 3.7-10.4 [facility]CehmbrwFSGWBTQTGOOG4357-96-31 11:08:00 Test Item Value Reference Range Interpretation Comments AGAP (test code = AGAP) 14.3 10.0-20.0 [facility] MichiganDssimasDVNQJORNAQWU2133-77-12 11:08:00 Test Item Value Reference Range Interpretation Comments Sodium Lvl (test code = Sodium Lvl) 140 135-145 [facility] MichiganLrbkrfuSAMQMBONLEST2674-75-88 11:08:00 Test Item Value Reference Range Interpretation Comments Potassium Lvl (test code = Potassium 3.3 3.5-5.1 Lvl) [facility]XcqdbztNHPNFOFNOHYE6869-62-15 11:08:00 Test Item Value Reference Range Interpretation Comments CO2 (test code = CO2) 23 24-32 [facility] MichiganUwdkhsfDNPCHITXLSYF6938-36-02 11:08:00 Test Item Value Reference Range Interpretation Comments Calcium Lvl (test code = Calcium Lvl) 7.6 8.5-10.5 [facility]XsicmdiDQZCQEFIZFOO4883-62-06 11:08:00 Test Item Value Reference Range Interpretation Comments Creatinine Lvl (test code = Creatinine 0.64 0.50-1.40 Lvl) [facility] MichiganNydelniAZATTPRYEJOD0774-55-23 11:08:00 Test Item Value Reference Range Interpretation Comments BUN (test code = BUN) 5 7-22 [facility]XmqnictEZQYYHVNEHPQ4605-26-25 11:08:00 Test Item Value Reference Range Interpretation Comments Chloride Lvl (test code = Chloride Lvl) 106 95-109 [facility] MichiganNhcwondUEHLWBYMEPRW6891-63-44 11:08:00 Test Item Value Reference Range Interpretation Comments eGFR (test code = eGFR) 123 [facility] MichiganMkhbslmULKPNEYULROG7751-04-57 11:08:00 Test Item Value Reference Range Interpretation Comments Glucose Lvl (test code = Glucose Lvl) 108 70-99 [facility] HospitalFajszslTCKTECERAM2723-21-72 11:08:00 Test Item Value Reference Range Interpretation Comments Platelet (test code = Platelet) 371 133-450 [facility] HospitalGxuyzmkWLEIGSJWIO3559-24-20 11:08:00 Test Item Value Reference Range Interpretation Comments MPV (test code = MPV) 8.1 7.4-10.4 [facility] HospitalCtrbxoyEIQSSNCNWD7626-89-15 11:08:00 Test Item Value Reference Range Interpretation Comments MCV (test code = MCV) 82.2 80.0-98.0 [facility] HospitalGtifwacQRYIBSBMDS7461-41-05 11:08:00 Test Item Value Reference Range Interpretation Comments MCHC (test code = MCHC) 32.4 32.0-36.0 [facility] HospitalGrfzlhyBEJGRXCELG7721-97-14 11:08:00 Test Item Value Reference Range Interpretation Comments RDW (test code = RDW) 17.7 11.5-14.5 [facility] HospitalGxzhfxtMUEODCCBMV4413-87-84 11:08:00 Test Item Value Reference Range Interpretation Comments MCH (test code = MCH) 26.7 pg 27.0-31.0 [facility] HospitalNpcbxilQFFJLQSCRZ7998-13-17 11:08:00 Test Item Value Reference Range Interpretation Comments RBC X 10x6 (test code = RBC X 10x6) 3.93 4.20-5.40 [facility] HospitalRmbkehnQWIUVCEKHB9936-04-21 11:08:00 Test Item Value Reference Range Interpretation Comments Hct (test code = Hct) 32.3 36.0-48.0 [facility] HospitalNyrwhnsGQLWSMTPNW1091-58-75 11:08:00 Test Item Value Reference Range Interpretation Comments Hgb (test code = Hgb) 10.5 12.0-16.0 [facility] HospitalCggwpdeXWRVIDFIST0706-86-32 11:08:00 Test Item Value Reference Range Interpretation Comments WBC X 10x3 (test code = WBC X 10x3) 9.5 3.7-10.4 [facility] MichiganUdndogoFKMRCJRFCHTA8143-17-07 11:08:00 Test Item Value Reference Range Interpretation Comments AGAP (test code = AGAP) 14.3 10.0-20.0 [facility] MichiganDhhyqncCSHXYWAEEJIY7189-77-54 11:08:00 Test Item Value Reference Range Interpretation Comments Sodium Lvl (test code = Sodium Lvl) 140 135-145 [facility]XbwqmqwYHUHRQANDITP3803-37-44 11:08:00 Test Item Value Reference Range Interpretation Comments Potassium Lvl (test code = Potassium 3.3 3.5-5.1 Lvl) [facility] MichiganGsknrcgTBSLLTYMRYVL4903-50-13 11:08:00 Test Item Value Reference Range Interpretation Comments CO2 (test code = CO2) 23 24-32 [facility]NfqdhxtBWIFMXJHIPEO9730-30-07 11:08:00 Test Item Value Reference Range Interpretation Comments Calcium Lvl (test code = Calcium Lvl) 7.6 8.5-10.5 [facility] MichiganKxphwqsBRTQQTXBGACC0318-33-90 11:08:00 Test Item Value Reference Range Interpretation Comments Creatinine Lvl (test code = Creatinine 0.64 0.50-1.40 Lvl) [facility] MichiganAdcpmxrWHESDCLJVBCF4201-22-24 11:08:00 Test Item Value Reference Range Interpretation Comments BUN (test code = BUN) 5 7-22 [facility] MichiganAmlkumbUKZVECMABPMI7559-87-22 11:08:00 Test Item Value Reference Range Interpretation Comments Chloride Lvl (test code = Chloride Lvl) 106 95-109 [facility] MichiganZrfwqkqKSKWEWTHLOXB3677-31-00 11:08:00 Test Item Value Reference Range Interpretation Comments eGFR (test code = eGFR) 123 [facility] MichiganMjqvpovGLWYYTHJKJRA1481-31-11 11:08:00 Test Item Value Reference Range Interpretation Comments Glucose Lvl (test code = Glucose Lvl) 108 70-99 [facility] HospitalCqacgbhDOMPDPIKJO8673-75-13 11:08:00 Test Item Value Reference Range Interpretation Comments Platelet (test code = Platelet) 371 133-450 [facility] HospitalMgqzfzwNPJPIDWUSO8865-25-57 11:08:00 Test Item Value Reference Range Interpretation Comments MPV (test code = MPV) 8.1 7.4-10.4 [facility] HospitalXjnrbuoGWALPFWGKK4851-96-78 11:08:00 Test Item Value Reference Range Interpretation Comments MCV (test code = MCV) 82.2 80.0-98.0 [facility] HospitalBagvhgiDCHCPQXGAM5769-26-08 11:08:00 Test Item Value Reference Range Interpretation Comments MCHC (test code = MCHC) 32.4 32.0-36.0 [facility] HospitalRmxcjobDCURBDSFNN4454-54-65 11:08:00 Test Item Value Reference Range Interpretation Comments RDW (test code = RDW) 17.7 11.5-14.5 [facility] HospitalUcywthkHSNZJWASZA4429-87-38 11:08:00 Test Item Value Reference Range Interpretation Comments MCH (test code = MCH) 26.7 pg 27.0-31.0 [facility] HospitalYiqeijwSVQMHCLANU0704-68-86 11:08:00 Test Item Value Reference Range Interpretation Comments RBC X 10x6 (test code = RBC X 10x6) 3.93 4.20-5.40 [facility] HospitalZzgyrahNZVUWADXEW8588-34-55 11:08:00 Test Item Value Reference Range Interpretation Comments Hct (test code = Hct) 32.3 36.0-48.0 [facility] HospitalAzgdmlbEAHUSATUMZ9738-37-66 11:08:00 Test Item Value Reference Range Interpretation Comments Hgb (test code = Hgb) 10.5 12.0-16.0 [facility]DqoiylfHUZMBPCFQB0270-98-10 11:08:00 Test Item Value Reference Range Interpretation Comments WBC X 10x3 (test code = WBC X 10x3) 9.5 3.7-10.4 [facility]BhdnsrvDGOSGIQPWUEW6708-86-91 11:08:00 Test Item Value Reference Range Interpretation Comments AGAP (test code = AGAP) 14.3 10.0-20.0 [facility]UtbntqwBTKNESZBFWKW2747-96-13 11:08:00 Test Item Value Reference Range Interpretation Comments Sodium Lvl (test code = Sodium Lvl) 140 135-145 [facility]IumztzqBPQVKJMOTFNL0132-11-86 11:08:00 Test Item Value Reference Range Interpretation Comments Potassium Lvl (test code = Potassium 3.3 3.5-5.1 Lvl) [facility]ZmewlmtIADOGSZQAWJW9099-85-01 11:08:00 Test Item Value Reference Range Interpretation Comments CO2 (test code = CO2) 23 24-32 [facility]PfnzxauBYCDHFHZXALD8788-36-83 11:08:00 Test Item Value Reference Range Interpretation Comments Calcium Lvl (test code = Calcium Lvl) 7.6 8.5-10.5 [facility]ZhtogleHQGHILPPOGSU6328-33-84 11:08:00 Test Item Value Reference Range Interpretation Comments Creatinine Lvl (test code = Creatinine 0.64 0.50-1.40 Lvl) [facility]UggrdvbOOQYHETWWSQL5401-49-84 11:08:00 Test Item Value Reference Range Interpretation Comments BUN (test code = BUN) 5 7-22 [facility]YsoxjwtLWPHVYNZJQHE7238-71-07 11:08:00 Test Item Value Reference Range Interpretation Comments Chloride Lvl (test code = Chloride Lvl) 106 95-109 [facility]FjewmwcPVBOKHSUOPWO9389-20-28 11:08:00 Test Item Value Reference Range Interpretation Comments eGFR (test code = eGFR) 123 [facility]JwycntdEKFCELSWYZAM0241-72-41 11:08:00 Test Item Value Reference Range Interpretation Comments Glucose Lvl (test code = Glucose Lvl) 108 70-99 [facility] HospitalLxtksfbDFHEIJMWSA3516-53-96 11:08:00 Test Item Value Reference Range Interpretation Comments Platelet (test code = Platelet) 371 133-450 [facility] HospitalNapmbovWRWNFUYPAA7161-36-85 11:08:00 Test Item Value Reference Range Interpretation Comments MPV (test code = MPV) 8.1 7.4-10.4 [facility] HospitalItumcxfZUUDUYPRLW8038-45-09 11:08:00 Test Item Value Reference Range Interpretation Comments MCV (test code = MCV) 82.2 80.0-98.0 [facility] HospitalQsrxdxkLTSHYFSPYD8178-19-59 11:08:00 Test Item Value Reference Range Interpretation Comments MCHC (test code = MCHC) 32.4 32.0-36.0 [facility] HospitalJzqbqdnIRMBXZEKNN8484-90-46 11:08:00 Test Item Value Reference Range Interpretation Comments RDW (test code = RDW) 17.7 11.5-14.5 [facility] HospitalKezbetiFDOTBXFRCL8188-64-72 11:08:00 Test Item Value Reference Range Interpretation Comments MCH (test code = MCH) 26.7 pg 27.0-31.0 [facility] HospitalRautiunATUKUOHXYL0332-45-64 11:08:00 Test Item Value Reference Range Interpretation Comments RBC X 10x6 (test code = RBC X 10x6) 3.93 4.20-5.40 [facility] HospitalZfjamynWCSCPRHABV3248-38-44 11:08:00 Test Item Value Reference Range Interpretation Comments Hct (test code = Hct) 32.3 36.0-48.0 [facility] HospitalBenrcpbXGNVECJMNG6445-00-88 11:08:00 Test Item Value Reference Range Interpretation Comments Hgb (test code = Hgb) 10.5 12.0-16.0 [facility] HospitalFgxybphAZSZBTBGSD0002-36-10 11:08:00 Test Item Value Reference Range Interpretation Comments WBC X 10x3 (test code = WBC X 10x3) 9.5 3.7-10.4 [facility]ApgmcyqUUPDXOXSWUYP8465-27-80 11:08:00 Test Item Value Reference Range Interpretation Comments AGAP (test code = AGAP) 14.3 10.0-20.0 [facility]SgjggozWFHUDNGKMYIW1495-11-80 11:08:00 Test Item Value Reference Range Interpretation Comments Sodium Lvl (test code = Sodium Lvl) 140 135-145 [facility]GdestjzBOJYKHCRMJRT8942-92-49 11:08:00 Test Item Value Reference Range Interpretation Comments Potassium Lvl (test code = Potassium 3.3 3.5-5.1 Lvl) [facility]MxdyqljZHEFYCVVIYOE7270-87-11 11:08:00 Test Item Value Reference Range Interpretation Comments CO2 (test code = CO2) 23 24-32 [facility]ZvuxqzbAYZPJNZAKNTO1141-97-97 11:08:00 Test Item Value Reference Range Interpretation Comments Calcium Lvl (test code = Calcium Lvl) 7.6 8.5-10.5 [facility]BglnedjGJMMNROUSZRT8757-73-83 11:08:00 Test Item Value Reference Range Interpretation Comments Creatinine Lvl (test code = Creatinine 0.64 0.50-1.40 Lvl) [facility]GekpwtaQVAXEMHODBDL8013-84-38 11:08:00 Test Item Value Reference Range Interpretation Comments BUN (test code = BUN) 5 7-22 [facility]MaxfsibURRJXGUUWPTY4014-88-96 11:08:00 Test Item Value Reference Range Interpretation Comments Chloride Lvl (test code = Chloride Lvl) 106 95-109 [facility]BdkimpiSFUTAKATLXUT3628-52-12 11:08:00 Test Item Value Reference Range Interpretation Comments eGFR (test code = eGFR) 123 [facility]ZtimsliSZZKDMYOITSV1009-27-79 11:08:00 Test Item Value Reference Range Interpretation Comments Glucose Lvl (test code = Glucose Lvl) 108 70-99 [facility] HospitalVsesitgWTJHXFFIPR2959-37-72 11:08:00 Test Item Value Reference Range Interpretation Comments Platelet (test code = Platelet) 371 133-450 [facility] HospitalBrwqqfcFJFKTKNKIJ9556-63-13 11:08:00 Test Item Value Reference Range Interpretation Comments MPV (test code = MPV) 8.1 7.4-10.4 [facility] HospitalBervieyQJZVFGYYWO3011-74-94 11:08:00 Test Item Value Reference Range Interpretation Comments MCV (test code = MCV) 82.2 80.0-98.0 [facility] HospitalEgpimlyJUKJLBXGXG3075-35-02 11:08:00 Test Item Value Reference Range Interpretation Comments MCHC (test code = MCHC) 32.4 32.0-36.0 [facility] HospitalTowodbiQXLKTIRCOF0549-11-34 11:08:00 Test Item Value Reference Range Interpretation Comments RDW (test code = RDW) 17.7 11.5-14.5 [facility] HospitalLmvwqzlBEBDPSVMBM2808-00-35 11:08:00 Test Item Value Reference Range Interpretation Comments MCH (test code = MCH) 26.7 pg 27.0-31.0 [facility] HospitalBbrxpbdAVEXHHWESE8993-82-90 11:08:00 Test Item Value Reference Range Interpretation Comments RBC X 10x6 (test code = RBC X 10x6) 3.93 4.20-5.40 [facility] HospitalZpkpnenZVVHUZXFKU9075-37-92 11:08:00 Test Item Value Reference Range Interpretation Comments Hct (test code = Hct) 32.3 36.0-48.0 [facility] HospitalQvximlrSVTGVEWITD1169-19-25 11:08:00 Test Item Value Reference Range Interpretation Comments Hgb (test code = Hgb) 10.5 12.0-16.0 [facility] HospitalBwusqfbZGAMMWEVMH0505-83-70 11:08:00 Test Item Value Reference Range Interpretation Comments WBC X 10x3 (test code = WBC X 10x3) 9.5 3.7-10.4 [facility]JmiwuzaYHNEQVGBCHEB0632-29-48 11:08:00 Test Item Value Reference Range Interpretation Comments AGAP (test code = AGAP) 14.3 10.0-20.0 [facility]PtlkeqwHZIMPATTTVLA5153-97-10 11:08:00 Test Item Value Reference Range Interpretation Comments Sodium Lvl (test code = Sodium Lvl) 140 135-145 [facility]ZlzmotgDKECFWRAVJCZ8304-11-30 11:08:00 Test Item Value Reference Range Interpretation Comments Potassium Lvl (test code = Potassium 3.3 3.5-5.1 Lvl) [facility]GdqaitzCFCVBKJODJGQ1570-85-57 11:08:00 Test Item Value Reference Range Interpretation Comments CO2 (test code = CO2) 23 24-32 [facility]GwaxwjnCSDFOHNTZOPS3526-99-13 11:08:00 Test Item Value Reference Range Interpretation Comments Calcium Lvl (test code = Calcium Lvl) 7.6 8.5-10.5 [facility]SmgzsqxBIWNPNRSKNSI1972-50-30 11:08:00 Test Item Value Reference Range Interpretation Comments Creatinine Lvl (test code = Creatinine 0.64 0.50-1.40 Lvl) [facility]DofhbigMZNGNGHRPGQQ6628-93-80 11:08:00 Test Item Value Reference Range Interpretation Comments BUN (test code = BUN) 5 7-22 [facility]FqnltayMBACQWNUXCQV2720-17-90 11:08:00 Test Item Value Reference Range Interpretation Comments Chloride Lvl (test code = Chloride Lvl) 106 95-109 [facility]ZnbfokhMGRBYXSWCMNQ0199-70-75 11:08:00 Test Item Value Reference Range Interpretation Comments eGFR (test code = eGFR) 123 [facility]ZqvzrazACAHULBKIHBL8260-11-54 11:08:00 Test Item Value Reference Range Interpretation Comments Glucose Lvl (test code = Glucose Lvl) 108 70-99 [facility] HospitalSzipkcwZCRTAXGIWC4380-38-78 11:08:00 Test Item Value Reference Range Interpretation Comments Platelet (test code = Platelet) 371 133-450 [facility] HospitalIrioxvvBYUCOXCHVY8286-51-82 11:08:00 Test Item Value Reference Range Interpretation Comments MPV (test code = MPV) 8.1 7.4-10.4 [facility] HospitalSmpggbdULWSPGQVWB0410-12-26 11:08:00 Test Item Value Reference Range Interpretation Comments MCV (test code = MCV) 82.2 80.0-98.0 [facility] HospitalZazzhltMSOUHNOSUL2949-53-66 11:08:00 Test Item Value Reference Range Interpretation Comments MCHC (test code = MCHC) 32.4 32.0-36.0 [facility] HospitalDdmgusgJCCRCSBYFK0239-34-01 11:08:00 Test Item Value Reference Range Interpretation Comments RDW (test code = RDW) 17.7 11.5-14.5 [facility] HospitalAmxdlolFRKDRHXHGB5841-86-03 11:08:00 Test Item Value Reference Range Interpretation Comments MCH (test code = MCH) 26.7 pg 27.0-31.0 [facility] HospitalRhrixwyJLRKRSJCXD7510-62-05 11:08:00 Test Item Value Reference Range Interpretation Comments RBC X 10x6 (test code = RBC X 10x6) 3.93 4.20-5.40 [facility] HospitalJdqmxujCWYFTILJEU8069-04-25 11:08:00 Test Item Value Reference Range Interpretation Comments Hct (test code = Hct) 32.3 36.0-48.0 [facility] HospitalNxmcprsKRCZLLHJLW9564-67-46 11:08:00 Test Item Value Reference Range Interpretation Comments Hgb (test code = Hgb) 10.5 12.0-16.0 [facility] HospitalOcxxouzGJRHEGYJGF8574-97-60 11:08:00 Test Item Value Reference Range Interpretation Comments WBC X 10x3 (test code = WBC X 10x3) 9.5 3.7-10.4 [facility]NybynflAOIQEGFCNTJI6201-60-71 11:08:00 Test Item Value Reference Range Interpretation Comments AGAP (test code = AGAP) 14.3 10.0-20.0 [facility]EutnvqaSVMTEVVKIGGW0894-11-14 11:08:00 Test Item Value Reference Range Interpretation Comments Sodium Lvl (test code = Sodium Lvl) 140 135-145 [facility]GhdeakjQNOVBFVLSWDD7929-58-27 11:08:00 Test Item Value Reference Range Interpretation Comments Potassium Lvl (test code = Potassium 3.3 3.5-5.1 Lvl) [facility]CgwxiidSHXSOKXHDHKQ2948-59-87 11:08:00 Test Item Value Reference Range Interpretation Comments CO2 (test code = CO2) 23 24-32 [facility]GklnssiGAOCWSWMOIKQ1082-89-79 11:08:00 Test Item Value Reference Range Interpretation Comments Calcium Lvl (test code = Calcium Lvl) 7.6 8.5-10.5 [facility]JxzqedbRVMDBLHKMSFS3592-87-98 11:08:00 Test Item Value Reference Range Interpretation Comments Creatinine Lvl (test code = Creatinine 0.64 0.50-1.40 Lvl) [facility]NfxcuxqRJNKZDFVZUUV4893-78-77 11:08:00 Test Item Value Reference Range Interpretation Comments BUN (test code = BUN) 5 7-22 [facility]QsllksgMJACVCEMFILB0003-08-50 11:08:00 Test Item Value Reference Range Interpretation Comments Chloride Lvl (test code = Chloride Lvl) 106 95-109 [facility]AquwpwqSVYWKUJFXKKH4389-52-42 11:08:00 Test Item Value Reference Range Interpretation Comments eGFR (test code = eGFR) 123 [facility]VhayaqcNKPQLILAGKBK1571-35-00 11:08:00 Test Item Value Reference Range Interpretation Comments Glucose Lvl (test code = Glucose Lvl) 108 70-99 [facility] HospitalZxmwxvjTWUMVIYFBM6363-87-99 11:08:00 Test Item Value Reference Range Interpretation Comments Platelet (test code = Platelet) 371 133-450 [facility] HospitalRrmgjbwLRDHQTPHFD5241-52-30 11:08:00 Test Item Value Reference Range Interpretation Comments MPV (test code = MPV) 8.1 7.4-10.4 [facility] HospitalErapekpAIMVGXFUBP2944-16-99 11:08:00 Test Item Value Reference Range Interpretation Comments MCV (test code = MCV) 82.2 80.0-98.0 [facility] HospitalVbkcgtiWSJJBUTXPT7726-54-96 11:08:00 Test Item Value Reference Range Interpretation Comments MCHC (test code = MCHC) 32.4 32.0-36.0 [facility] HospitalOppuezwPOYCWYQZET5902-08-85 11:08:00 Test Item Value Reference Range Interpretation Comments RDW (test code = RDW) 17.7 11.5-14.5 [facility] HospitalEymgekyOSZSRSWUHK7129-58-27 11:08:00 Test Item Value Reference Range Interpretation Comments MCH (test code = MCH) 26.7 pg 27.0-31.0 [facility] HospitalMsfknioSUSHMBATGR0501-83-80 11:08:00 Test Item Value Reference Range Interpretation Comments RBC X 10x6 (test code = RBC X 10x6) 3.93 4.20-5.40 [facility] HospitalQnakbonLZDXIDZHFC9590-17-32 11:08:00 Test Item Value Reference Range Interpretation Comments Hct (test code = Hct) 32.3 36.0-48.0 [facility] HospitalMcrjerlHOJRVNOTEO1034-36-48 11:08:00 Test Item Value Reference Range Interpretation Comments Hgb (test code = Hgb) 10.5 12.0-16.0 [facility] HospitalZrlkxlfDMFCFAPDWX7589-91-25 11:08:00 Test Item Value Reference Range Interpretation Comments WBC X 10x3 (test code = WBC X 10x3) 9.5 3.7-10.4 [facility]GcpmudpBDHMEQVQLRXB5063-47-25 11:08:00 Test Item Value Reference Range Interpretation Comments AGAP (test code = AGAP) 14.3 10.0-20.0 [facility]TlptvzcYILDWYTVEAYH7822-44-98 11:08:00 Test Item Value Reference Range Interpretation Comments Sodium Lvl (test code = Sodium Lvl) 140 135-145 [facility]GqpbmaiVOKLYWYSYZHZ8311-42-17 11:08:00 Test Item Value Reference Range Interpretation Comments Potassium Lvl (test code = Potassium 3.3 3.5-5.1 Lvl) [facility]CtrazpoBBSMEFGPSAIG9297-97-87 11:08:00 Test Item Value Reference Range Interpretation Comments CO2 (test code = CO2) 23 24-32 [facility]AxwinooPPNTKPPFGBNY9465-68-72 11:08:00 Test Item Value Reference Range Interpretation Comments Calcium Lvl (test code = Calcium Lvl) 7.6 8.5-10.5 [facility]ZdfweruXLGXXXTHGRLJ9950-75-32 11:08:00 Test Item Value Reference Range Interpretation Comments Creatinine Lvl (test code = Creatinine 0.64 0.50-1.40 Lvl) [facility]NbhbogpLJFVGWNETSLF1983-15-44 11:08:00 Test Item Value Reference Range Interpretation Comments BUN (test code = BUN) 5 7-22 [facility]VuuddprLXBPRRHMZQUX0870-34-10 11:08:00 Test Item Value Reference Range Interpretation Comments Chloride Lvl (test code = Chloride Lvl) 106 95-109 [facility]QpjcdeqNYPCGDRVZHNN3191-17-74 11:08:00 Test Item Value Reference Range Interpretation Comments eGFR (test code = eGFR) 123 [facility]SjnnqonAUIPPDHZFHMX6984-69-30 11:08:00 Test Item Value Reference Range Interpretation Comments Glucose Lvl (test code = Glucose Lvl) 108 70-99 [facility] HospitalTqjznnvEIZIKYNKPK8436-36-81 11:08:00 Test Item Value Reference Range Interpretation Comments Platelet (test code = Platelet) 371 133-450 [facility] HospitalSlamuldTHUASNMTBZ9462-39-66 11:08:00 Test Item Value Reference Range Interpretation Comments MPV (test code = MPV) 8.1 7.4-10.4 [facility] HospitalVxpyjjqUPOYTXQWSW9915-91-35 11:08:00 Test Item Value Reference Range Interpretation Comments MCV (test code = MCV) 82.2 80.0-98.0 [facility] HospitalKwagkudINJUXXRJRG5260-97-68 11:08:00 Test Item Value Reference Range Interpretation Comments MCHC (test code = MCHC) 32.4 32.0-36.0 [facility] HospitalLizkisxMXWXDCHAXL1375-88-09 11:08:00 Test Item Value Reference Range Interpretation Comments RDW (test code = RDW) 17.7 11.5-14.5 [facility] HospitalKswtpyzMHRHPXIQSU5086-64-15 11:08:00 Test Item Value Reference Range Interpretation Comments MCH (test code = MCH) 26.7 pg 27.0-31.0 [facility] HospitalJugcgvdLKWUMUXODX1084-73-87 11:08:00 Test Item Value Reference Range Interpretation Comments RBC X 10x6 (test code = RBC X 10x6) 3.93 4.20-5.40 [facility] HospitalBlyvmfpMPYVDUMREC2914-10-44 11:08:00 Test Item Value Reference Range Interpretation Comments Hct (test code = Hct) 32.3 36.0-48.0 [facility] HospitalQpesfscSOXPWBFXLH3224-59-08 11:08:00 Test Item Value Reference Range Interpretation Comments Hgb (test code = Hgb) 10.5 12.0-16.0 [facility] HospitalCzrhiflNLGMVEMMUY6099-92-89 11:08:00 Test Item Value Reference Range Interpretation Comments WBC X 10x3 (test code = WBC X 10x3) 9.5 3.7-10.4 [facility]ZtsbzzgBKAAVYJVIAXF0861-50-10 11:08:00 Test Item Value Reference Range Interpretation Comments AGAP (test code = AGAP) 14.3 10.0-20.0 [facility]EnmcqvuTUZQGBURLWNJ0182-97-21 11:08:00 Test Item Value Reference Range Interpretation Comments Sodium Lvl (test code = Sodium Lvl) 140 135-145 [facility] MichiganHnuuwknSIYFPFMZFINJ9977-75-66 11:08:00 Test Item Value Reference Range Interpretation Comments Potassium Lvl (test code = Potassium 3.3 3.5-5.1 Lvl) [facility]PmgttbvBYRRVNTUETSL9480-35-80 11:08:00 Test Item Value Reference Range Interpretation Comments CO2 (test code = CO2) 23 24-32 [facility]LjrrxdwMIOTFBVCULXT5773-46-94 11:08:00 Test Item Value Reference Range Interpretation Comments Calcium Lvl (test code = Calcium Lvl) 7.6 8.5-10.5 [facility]KgwcdnpEJLCFTBBGHDH6999-93-00 11:08:00 Test Item Value Reference Range Interpretation Comments Creatinine Lvl (test code = Creatinine 0.64 0.50-1.40 Lvl) [facility]OpbjslvKYBXLXWCCGRP0931-86-84 11:08:00 Test Item Value Reference Range Interpretation Comments BUN (test code = BUN) 5 7-22 [facility]BcycqtnJOEONTYSNJKK8024-24-78 11:08:00 Test Item Value Reference Range Interpretation Comments Chloride Lvl (test code = Chloride Lvl) 106 95-109 [facility] MichiganKyvfqsaWWUQFXIGYXNT6982-15-02 11:08:00 Test Item Value Reference Range Interpretation Comments eGFR (test code = eGFR) 123 [facility]EzokoefGSTTRVDJFCDB0029-05-64 11:08:00 Test Item Value Reference Range Interpretation Comments Glucose Lvl (test code = Glucose Lvl) 108 70-99 [facility] HospitalTnybcuzCABAFHQUFE9696-63-79 11:08:00 Test Item Value Reference Range Interpretation Comments Platelet (test code = Platelet) 371 133-450 [facility] HospitalPbwpfrmRCGYNJWXEU0852-54-43 11:08:00 Test Item Value Reference Range Interpretation Comments MPV (test code = MPV) 8.1 7.4-10.4 [facility] HospitalRdkvynmHRPEUTREIA8554-14-96 11:08:00 Test Item Value Reference Range Interpretation Comments MCV (test code = MCV) 82.2 80.0-98.0 [facility] HospitalZqpmukyGIYUMDJBLH6329-17-67 11:08:00 Test Item Value Reference Range Interpretation Comments MCHC (test code = MCHC) 32.4 32.0-36.0 [facility] HospitalIsydshqXODUWHFIMT3673-57-31 11:08:00 Test Item Value Reference Range Interpretation Comments RDW (test code = RDW) 17.7 11.5-14.5 [facility] HospitalOhrguybLKOJPNVXKJ1838-33-68 11:08:00 Test Item Value Reference Range Interpretation Comments MCH (test code = MCH) 26.7 pg 27.0-31.0 [facility] HospitalEgxcjrfDMORHRUMKM6666-08-15 11:08:00 Test Item Value Reference Range Interpretation Comments RBC X 10x6 (test code = RBC X 10x6) 3.93 4.20-5.40 [facility] HospitalSiypukuSDZCTXPYUE4164-68-45 11:08:00 Test Item Value Reference Range Interpretation Comments Hct (test code = Hct) 32.3 36.0-48.0 [facility] HospitalTqapynbEYINIIGUNI6113-02-54 11:08:00 Test Item Value Reference Range Interpretation Comments Hgb (test code = Hgb) 10.5 12.0-16.0 [facility] HospitalIhzblihRHNNAVMQLU8669-50-97 11:08:00 Test Item Value Reference Range Interpretation Comments WBC X 10x3 (test code = WBC X 10x3) 9.5 3.7-10.4 [facility]LswnfmxVELNOOENSHNZ5378-24-75 11:08:00 Test Item Value Reference Range Interpretation Comments AGAP (test code = AGAP) 14.3 10.0-20.0 [facility] MichiganTcuujlyHOPNWFHVQCGB4080-21-11 11:08:00 Test Item Value Reference Range Interpretation Comments Sodium Lvl (test code = Sodium Lvl) 140 135-145 [facility]TclaaqjYYZBBLHPUGGS7065-79-26 11:08:00 Test Item Value Reference Range Interpretation Comments Potassium Lvl (test code = Potassium 3.3 3.5-5.1 Lvl) [facility]ApcemwwSWDWIPEDYIDP3672-90-70 11:08:00 Test Item Value Reference Range Interpretation Comments CO2 (test code = CO2) 23 24-32 [facility]YppvoykYOZLYRTVWAND2746-21-52 11:08:00 Test Item Value Reference Range Interpretation Comments Calcium Lvl (test code = Calcium Lvl) 7.6 8.5-10.5 [facility] MichiganFojubbtYVXSDYKUYMEV1936-28-05 11:08:00 Test Item Value Reference Range Interpretation Comments Creatinine Lvl (test code = Creatinine 0.64 0.50-1.40 Lvl) [facility]WfejqduDTKXHNLYCXZF2788-24-92 11:08:00 Test Item Value Reference Range Interpretation Comments BUN (test code = BUN) 5 7-22 [facility] MichiganCtlrobgSWFOAKCPOUPP8583-89-16 11:08:00 Test Item Value Reference Range Interpretation Comments Chloride Lvl (test code = Chloride Lvl) 106 95-109 [facility] MichiganHyptckmCJBUERWDEIZF7301-76-74 11:08:00 Test Item Value Reference Range Interpretation Comments eGFR (test code = eGFR) 123 [facility]CsjggqmPWIQFTBSUWPK5104-20-06 11:08:00 Test Item Value Reference Range Interpretation Comments Glucose Lvl (test code = Glucose Lvl) 108 70-99 [facility] HospitalNuftuwnACNVCBDONH6103-96-39 11:08:00 Test Item Value Reference Range Interpretation Comments Platelet (test code = Platelet) 371 133-450 [facility] HospitalAlkhyxgJTGQJRVGGX6735-80-92 11:08:00 Test Item Value Reference Range Interpretation Comments MPV (test code = MPV) 8.1 7.4-10.4 [facility] HospitalLpqwfzuFZCYBZLURS4123-84-15 11:08:00 Test Item Value Reference Range Interpretation Comments MCV (test code = MCV) 82.2 80.0-98.0 [facility] HospitalLubetybTNOACRWBPZ1994-86-02 11:08:00 Test Item Value Reference Range Interpretation Comments MCHC (test code = MCHC) 32.4 32.0-36.0 [facility] HospitalIhuygnfWTGUDCGZBH1032-46-14 11:08:00 Test Item Value Reference Range Interpretation Comments RDW (test code = RDW) 17.7 11.5-14.5 [facility] HospitalWfubtmuLREHJLLQHC2145-49-50 11:08:00 Test Item Value Reference Range Interpretation Comments MCH (test code = MCH) 26.7 pg 27.0-31.0 [facility] HospitalBiedfhpPJDTUZBBPK9554-07-97 11:08:00 Test Item Value Reference Range Interpretation Comments RBC X 10x6 (test code = RBC X 10x6) 3.93 4.20-5.40 [facility] HospitalFpxjpviEKGKZZYWWE7467-53-53 11:08:00 Test Item Value Reference Range Interpretation Comments Hct (test code = Hct) 32.3 36.0-48.0 [facility] HospitalRrrfehqYQYTQZZDAR5218-97-34 11:08:00 Test Item Value Reference Range Interpretation Comments Hgb (test code = Hgb) 10.5 12.0-16.0 [facility] HospitalFsmherxDOJAMPFFJB5764-14-04 11:08:00 Test Item Value Reference Range Interpretation Comments WBC X 10x3 (test code = WBC X 10x3) 9.5 3.7-10.4 [facility]LlbqzlkPPFXLKMLWKTJ6346-89-20 11:08:00 Test Item Value Reference Range Interpretation Comments AGAP (test code = AGAP) 14.3 10.0-20.0 [facility] MichiganUpwurrsIDGSLXSRIZWE1463-59-60 11:08:00 Test Item Value Reference Range Interpretation Comments Sodium Lvl (test code = Sodium Lvl) 140 135-145 [facility]JdxmhriXSQSNBFCDSWR3741-68-09 11:08:00 Test Item Value Reference Range Interpretation Comments Potassium Lvl (test code = Potassium 3.3 3.5-5.1 Lvl) [facility]FfcwrxdXGBWZKKUSAID8719-50-04 11:08:00 Test Item Value Reference Range Interpretation Comments CO2 (test code = CO2) 23 24-32 [facility]NwipczgLGIMAEDBDLXB8997-53-55 11:08:00 Test Item Value Reference Range Interpretation Comments Calcium Lvl (test code = Calcium Lvl) 7.6 8.5-10.5 [facility]KtwwbljWRHADBXMZNOP8172-21-89 11:08:00 Test Item Value Reference Range Interpretation Comments Creatinine Lvl (test code = Creatinine 0.64 0.50-1.40 Lvl) [facility]RcvhsgsQOIJDEFJGXRE4874-99-86 11:08:00 Test Item Value Reference Range Interpretation Comments BUN (test code = BUN) 5 7-22 [facility]UdnyofmROICFLRXEJFU6299-30-55 11:08:00 Test Item Value Reference Range Interpretation Comments Chloride Lvl (test code = Chloride Lvl) 106 95-109 [facility]RetsnjbEUUVINICZWRQ2518-18-60 11:08:00 Test Item Value Reference Range Interpretation Comments eGFR (test code = eGFR) 123 [facility]HdilnezCKFCQVNDBRZE6335-23-20 11:08:00 Test Item Value Reference Range Interpretation Comments Glucose Lvl (test code = Glucose Lvl) 108 70-99 [facility]HqzapvyANZOHBSXOC8092-32-23 11:08:00 Test Item Value Reference Range Interpretation Comments Platelet (test code = Platelet) 371 133-450 [facility] HospitalNthzarhKQWBCZGHIL9609-49-68 11:08:00 Test Item Value Reference Range Interpretation Comments MPV (test code = MPV) 8.1 7.4-10.4 [facility] HospitalGcxxjufFJCXJYBUTY3170-68-80 11:08:00 Test Item Value Reference Range Interpretation Comments MCV (test code = MCV) 82.2 80.0-98.0 [facility] HospitalVyknxuvLQPNDGHOOK4464-45-96 11:08:00 Test Item Value Reference Range Interpretation Comments MCHC (test code = MCHC) 32.4 32.0-36.0 [facility] HospitalPpkmloxNCSKNYNHUI5522-04-42 11:08:00 Test Item Value Reference Range Interpretation Comments RDW (test code = RDW) 17.7 11.5-14.5 [facility] HospitalRtzrexmKGOBVTUTSJ3016-53-79 11:08:00 Test Item Value Reference Range Interpretation Comments MCH (test code = MCH) 26.7 pg 27.0-31.0 [facility] HospitalLyfeylbPCIGSLHWPQ9236-21-97 11:08:00 Test Item Value Reference Range Interpretation Comments RBC X 10x6 (test code = RBC X 10x6) 3.93 4.20-5.40 [facility] HospitalWkqwvmnXYEDLXIMZR8615-79-36 11:08:00 Test Item Value Reference Range Interpretation Comments Hct (test code = Hct) 32.3 36.0-48.0 [facility] HospitalRtaglghQFWDJTLCFO1467-36-45 11:08:00 Test Item Value Reference Range Interpretation Comments Hgb (test code = Hgb) 10.5 12.0-16.0 [facility] HospitalUgkscvjWJGSVRJXIO7405-28-33 11:08:00 Test Item Value Reference Range Interpretation Comments WBC X 10x3 (test code = WBC X 10x3) 9.5 3.7-10.4 [facility]JsezmtrYQUZBIJBFWOI7676-36-42 11:08:00 Test Item Value Reference Range Interpretation Comments AGAP (test code = AGAP) 14.3 10.0-20.0 [facility]AgvtogwWCEJTXARICEZ0720-35-66 11:08:00 Test Item Value Reference Range Interpretation Comments Sodium Lvl (test code = Sodium Lvl) 140 135-145 [facility]FowjdhjPBCDEBBKSDYZ3362-83-47 11:08:00 Test Item Value Reference Range Interpretation Comments Potassium Lvl (test code = Potassium 3.3 3.5-5.1 Lvl) [facility]VlyvyffOPOPALKETRIT6293-66-00 11:08:00 Test Item Value Reference Range Interpretation Comments CO2 (test code = CO2) 23 24-32 [facility]PireksiMZRETLTAPASJ1716-82-59 11:08:00 Test Item Value Reference Range Interpretation Comments Calcium Lvl (test code = Calcium Lvl) 7.6 8.5-10.5 [facility]CdhqjieNIUBYZEJTHNY1973-61-08 11:08:00 Test Item Value Reference Range Interpretation Comments Creatinine Lvl (test code = Creatinine 0.64 0.50-1.40 Lvl) [facility]ByyftxqFXIEVTBTFNYA4591-55-54 11:08:00 Test Item Value Reference Range Interpretation Comments BUN (test code = BUN) 5 7-22 [facility]QxlscfwZOJQNEJHGMFS7939-23-05 11:08:00 Test Item Value Reference Range Interpretation Comments Chloride Lvl (test code = Chloride Lvl) 106 95-109 [facility]OebqomqIEUAUREFEBBV1745-23-06 11:08:00 Test Item Value Reference Range Interpretation Comments eGFR (test code = eGFR) 123 [facility]HmgivelYNMNADNRFQKY9362-84-34 11:08:00 Test Item Value Reference Range Interpretation Comments Glucose Lvl (test code = Glucose Lvl) 108 70-99 [facility] HospitalQffivecMNWYLUTHXD8528-72-70 11:08:00 Test Item Value Reference Range Interpretation Comments Platelet (test code = Platelet) 371 133-450 [facility] HospitalWznainyTIIRMSKOOM2823-25-69 11:08:00 Test Item Value Reference Range Interpretation Comments MPV (test code = MPV) 8.1 7.4-10.4 [facility] HospitalSovdickSFNJNCSNML4335-11-09 11:08:00 Test Item Value Reference Range Interpretation Comments MCV (test code = MCV) 82.2 80.0-98.0 [facility] HospitalBhjcgjgIVZQBPQWJS1503-56-09 11:08:00 Test Item Value Reference Range Interpretation Comments MCHC (test code = MCHC) 32.4 32.0-36.0 [facility] HospitalMiscwxtDHCAEHNITB6807-27-99 11:08:00 Test Item Value Reference Range Interpretation Comments RDW (test code = RDW) 17.7 11.5-14.5 [facility] HospitalJiqrjewLCHKUMHMJA8323-43-81 11:08:00 Test Item Value Reference Range Interpretation Comments MCH (test code = MCH) 26.7 pg 27.0-31.0 [facility] HospitalJnlasxwIBXDFXNTEA2225-98-69 11:08:00 Test Item Value Reference Range Interpretation Comments RBC X 10x6 (test code = RBC X 10x6) 3.93 4.20-5.40 [facility] HospitalUxsvepaYLBYNWLIAE0015-31-01 11:08:00 Test Item Value Reference Range Interpretation Comments Hct (test code = Hct) 32.3 36.0-48.0 [facility] HospitalIlzxixjGQRWSPUHMS1498-41-73 11:08:00 Test Item Value Reference Range Interpretation Comments Hgb (test code = Hgb) 10.5 12.0-16.0 [facility]TggpqxqTIZTMBUHHISB6720-33-25 11:08:00 Test Item Value Reference Range Interpretation Comments AGAP (test code = AGAP) 14.3 10.0-20.0 [facility] HospitalNlfcrtyMVMSHFDBRS4179-46-89 11:08:00 Test Item Value Reference Range Interpretation Comments WBC X 10x3 (test code = WBC X 10x3) 9.5 3.7-10.4 [facility]OxqtrxfMVIAWBRZQEMS5341-06-21 11:08:00 Test Item Value Reference Range Interpretation Comments Sodium Lvl (test code = Sodium Lvl) 140 135-145 [facility]KqkcfdrCZLBXYMZUPXK9780-18-56 11:08:00 Test Item Value Reference Range Interpretation Comments Potassium Lvl (test code = Potassium 3.3 3.5-5.1 Lvl) [facility] MichiganLagnpkiKFITZXJGVYPD9871-44-39 11:08:00 Test Item Value Reference Range Interpretation Comments CO2 (test code = CO2) 23 24-32 [facility]ZgwfwcbATJMMZGKYLQJ3825-20-69 11:08:00 Test Item Value Reference Range Interpretation Comments Calcium Lvl (test code = Calcium Lvl) 7.6 8.5-10.5 [facility]XyjlgxdPQCUDATJESTB7029-23-39 11:08:00 Test Item Value Reference Range Interpretation Comments Creatinine Lvl (test code = Creatinine 0.64 0.50-1.40 Lvl) [facility]GlipjmiUHTMRPEMKJKX0420-75-86 11:08:00 Test Item Value Reference Range Interpretation Comments BUN (test code = BUN) 5 7-22 [facility]WmcivmjFIHGXXHDJHIJ9967-87-57 11:08:00 Test Item Value Reference Range Interpretation Comments Chloride Lvl (test code = Chloride Lvl) 106 95-109 [facility]ElxnqxoBZDNWWZSQERI2374-46-41 11:08:00 Test Item Value Reference Range Interpretation Comments eGFR (test code = eGFR) 123 [facility]WceokdqLZAKGOQVJLLS3235-21-21 11:08:00 Test Item Value Reference Range Interpretation Comments Glucose Lvl (test code = Glucose Lvl) 108 70-99 [facility] HospitalTczicoqROMLVQCGAB2083-53-66 11:08:00 Test Item Value Reference Range Interpretation Comments Platelet (test code = Platelet) 371 133-450 [facility] HospitalUerlgmoXSWCCKMHJM0538-76-48 11:08:00 Test Item Value Reference Range Interpretation Comments MPV (test code = MPV) 8.1 7.4-10.4 [facility] HospitalTofhrdsVSXTFQLBBM8132-93-65 11:08:00 Test Item Value Reference Range Interpretation Comments MCV (test code = MCV) 82.2 80.0-98.0 [facility] HospitalOqkozmoLAQUHBJDEB0867-16-99 11:08:00 Test Item Value Reference Range Interpretation Comments MCHC (test code = MCHC) 32.4 32.0-36.0 [facility] HospitalClmesalVEDRBXUYKP0834-47-12 11:08:00 Test Item Value Reference Range Interpretation Comments RDW (test code = RDW) 17.7 11.5-14.5 [facility] HospitalIdmdmltQVKPRACBXZ5536-03-89 11:08:00 Test Item Value Reference Range Interpretation Comments MCH (test code = MCH) 26.7 pg 27.0-31.0 [facility] HospitalSriemcmVGSYCGSAUH7768-79-13 11:08:00 Test Item Value Reference Range Interpretation Comments RBC X 10x6 (test code = RBC X 10x6) 3.93 4.20-5.40 [facility] HospitalFcjvocjCUJGRNMZFO6819-48-88 11:08:00 Test Item Value Reference Range Interpretation Comments Hct (test code = Hct) 32.3 36.0-48.0 [facility] HospitalCsavnslZIAAWJSYIH9640-43-13 11:08:00 Test Item Value Reference Range Interpretation Comments Hgb (test code = Hgb) 10.5 12.0-16.0 [facility] HospitalFucovrkGNGYBFMHAI4204-51-20 11:08:00 Test Item Value Reference Range Interpretation Comments WBC X 10x3 (test code = WBC X 10x3) 9.5 3.7-10.4 [facility]EzwnsfyZOVUDWUQGMNL5617-29-46 11:08:00 Test Item Value Reference Range Interpretation Comments AGAP (test code = AGAP) 14.3 10.0-20.0 [facility]ZmfqcdxYPIWXCQETLQH0366-02-69 11:08:00 Test Item Value Reference Range Interpretation Comments Sodium Lvl (test code = Sodium Lvl) 140 135-145 [facility]PfzghhoYQRLAJLRMOLC6982-83-09 11:08:00 Test Item Value Reference Range Interpretation Comments Potassium Lvl (test code = Potassium 3.3 3.5-5.1 Lvl) [facility]XpuhcgyYORORHPFTVZN5754-18-15 11:08:00 Test Item Value Reference Range Interpretation Comments CO2 (test code = CO2) 23 24-32 [facility]BymxdprUZYQZABDCOUG3676-22-12 11:08:00 Test Item Value Reference Range Interpretation Comments Calcium Lvl (test code = Calcium Lvl) 7.6 8.5-10.5 [facility]WbridnkJVJGFUCZTQPW1248-35-85 11:08:00 Test Item Value Reference Range Interpretation Comments Creatinine Lvl (test code = Creatinine 0.64 0.50-1.40 Lvl) [facility]GxmpvtmHARIYMJMSIDP4366-46-59 11:08:00 Test Item Value Reference Range Interpretation Comments BUN (test code = BUN) 5 7-22 [facility]SxazjwkVNUVHVTJUQSP0090-87-45 11:08:00 Test Item Value Reference Range Interpretation Comments Chloride Lvl (test code = Chloride Lvl) 106 95-109 [facility] MichiganIqishwdPDVWSISJOIIA4259-14-52 11:08:00 Test Item Value Reference Range Interpretation Comments eGFR (test code = eGFR) 123 [facility]EncydenZCIWZILFJDCH1526-67-95 11:08:00 Test Item Value Reference Range Interpretation Comments Glucose Lvl (test code = Glucose Lvl) 108 70-99 [facility] HospitalPwviygwVBQZVIAHEN2277-84-40 11:08:00 Test Item Value Reference Range Interpretation Comments Platelet (test code = Platelet) 371 133-450 [facility] HospitalEdgftkhBLHROPZVNT0184-25-29 11:08:00 Test Item Value Reference Range Interpretation Comments MPV (test code = MPV) 8.1 7.4-10.4 [facility] HospitalAmwrzdlGPPGOGFDYG8105-82-54 11:08:00 Test Item Value Reference Range Interpretation Comments MCV (test code = MCV) 82.2 80.0-98.0 [facility] HospitalCpbddmdYUMVXJRQVS3906-72-91 11:08:00 Test Item Value Reference Range Interpretation Comments MCHC (test code = MCHC) 32.4 32.0-36.0 [facility] HospitalJtlaknbKCXNODXESL2058-58-85 11:08:00 Test Item Value Reference Range Interpretation Comments RDW (test code = RDW) 17.7 11.5-14.5 [facility] HospitalKrjopimARFUXWUAAY9742-33-77 11:08:00 Test Item Value Reference Range Interpretation Comments MCH (test code = MCH) 26.7 pg 27.0-31.0 [facility] HospitalFmoigfvUIAWMEFSGA1637-49-23 11:08:00 Test Item Value Reference Range Interpretation Comments RBC X 10x6 (test code = RBC X 10x6) 3.93 4.20-5.40 [facility] HospitalRgrkcxsNKCHOTOMGZ7222-10-19 11:08:00 Test Item Value Reference Range Interpretation Comments Hct (test code = Hct) 32.3 36.0-48.0 [facility] HospitalGskledhXSRLXXRLBR3426-93-16 11:08:00 Test Item Value Reference Range Interpretation Comments Hgb (test code = Hgb) 10.5 12.0-16.0 [facility] HospitalOanbhdjIPYKKYQPFL8760-09-98 11:08:00 Test Item Value Reference Range Interpretation Comments WBC X 10x3 (test code = WBC X 10x3) 9.5 3.7-10.4 [facility]AaccssdIDHPBDCOIDOH8381-73-79 11:08:00 Test Item Value Reference Range Interpretation Comments AGAP (test code = AGAP) 14.3 10.0-20.0 [facility]CzxxdinLRWDBNKTEIXC1887-73-43 11:08:00 Test Item Value Reference Range Interpretation Comments Sodium Lvl (test code = Sodium Lvl) 140 135-145 [facility]JbnnfiiLUBFFGNWHGNW7040-39-10 11:08:00 Test Item Value Reference Range Interpretation Comments Potassium Lvl (test code = Potassium 3.3 3.5-5.1 Lvl) [facility]FgnojxlKILSCZABQBPZ1952-77-52 11:08:00 Test Item Value Reference Range Interpretation Comments CO2 (test code = CO2) 23 24-32 [facility]GxebqxvZCGQIQZUZBBW0895-08-84 11:08:00 Test Item Value Reference Range Interpretation Comments Calcium Lvl (test code = Calcium Lvl) 7.6 8.5-10.5 [facility]IvcsmreLOAYHXSEODTG1460-17-16 11:08:00 Test Item Value Reference Range Interpretation Comments Creatinine Lvl (test code = Creatinine 0.64 0.50-1.40 Lvl) [facility]JxnuydcLXTPNDNJVWEC9616-32-11 11:08:00 Test Item Value Reference Range Interpretation Comments BUN (test code = BUN) 5 7-22 [facility]PqehxfkCRNDYZCNBMRF7733-69-81 11:08:00 Test Item Value Reference Range Interpretation Comments Chloride Lvl (test code = Chloride Lvl) 106 95-109 [facility]TpabphgVJAFBKUUQPYF7913-17-46 11:08:00 Test Item Value Reference Range Interpretation Comments eGFR (test code = eGFR) 123 [facility]XefxzlgGGNWRNSVKZWG7620-95-88 11:08:00 Test Item Value Reference Range Interpretation Comments Glucose Lvl (test code = Glucose Lvl) 108 70-99 [facility] HospitalBhdwchoGYTCXCGLFB3111-30-57 11:08:00 Test Item Value Reference Range Interpretation Comments Platelet (test code = Platelet) 371 133-450 [facility] HospitalXvobxrkUNBIDGJCCM5184-05-32 11:08:00 Test Item Value Reference Range Interpretation Comments MPV (test code = MPV) 8.1 7.4-10.4 [facility] HospitalHzzitkqYZMVPQDTAX2051-99-23 11:08:00 Test Item Value Reference Range Interpretation Comments MCV (test code = MCV) 82.2 80.0-98.0 [facility] HospitalOtsdouiSBIJFPVVMQ9164-81-69 11:08:00 Test Item Value Reference Range Interpretation Comments MCHC (test code = MCHC) 32.4 32.0-36.0 [facility] HospitalZrufvzjLRDZCKYAVN0863-65-10 11:08:00 Test Item Value Reference Range Interpretation Comments RDW (test code = RDW) 17.7 11.5-14.5 [facility] HospitalHhvilhrZTTAEIVTEY9194-89-63 11:08:00 Test Item Value Reference Range Interpretation Comments MCH (test code = MCH) 26.7 pg 27.0-31.0 [facility] HospitalAjmcuteDPNZCXSVSS4358-81-67 11:08:00 Test Item Value Reference Range Interpretation Comments RBC X 10x6 (test code = RBC X 10x6) 3.93 4.20-5.40 [facility] HospitalXqhsybrEJZLDCAFKS8594-62-90 11:08:00 Test Item Value Reference Range Interpretation Comments Hct (test code = Hct) 32.3 36.0-48.0 [facility] HospitalErqucoiQLEGMWEAWB2847-50-60 11:08:00 Test Item Value Reference Range Interpretation Comments Hgb (test code = Hgb) 10.5 12.0-16.0 [facility] HospitalOxkhgejOMPTZEFXJB8224-07-04 11:08:00 Test Item Value Reference Range Interpretation Comments WBC X 10x3 (test code = WBC X 10x3) 9.5 3.7-10.4 [facility]BdfuluqFTHYGBALORAZ5110-88-80 11:08:00 Test Item Value Reference Range Interpretation Comments AGAP (test code = AGAP) 14.3 10.0-20.0 [facility]GvxsqsfBIMXCRFXFXOQ5572-18-08 11:08:00 Test Item Value Reference Range Interpretation Comments Sodium Lvl (test code = Sodium Lvl) 140 135-145 [facility]BicrbyfHOGIOJBGNDBW8167-38-64 11:08:00 Test Item Value Reference Range Interpretation Comments Potassium Lvl (test code = Potassium 3.3 3.5-5.1 Lvl) [facility]QyjgieaPTHYWQVWAMNE6537-13-98 11:08:00 Test Item Value Reference Range Interpretation Comments CO2 (test code = CO2) 23 24-32 [facility]GnklhquUOPQNTSOVDPA9852-55-10 11:08:00 Test Item Value Reference Range Interpretation Comments Calcium Lvl (test code = Calcium Lvl) 7.6 8.5-10.5 [facility]LwsnicjAHGWHUMEEAYE1073-96-09 11:08:00 Test Item Value Reference Range Interpretation Comments Creatinine Lvl (test code = Creatinine 0.64 0.50-1.40 Lvl) [facility]YkagfokIABURLDGUYLM9574-95-46 11:08:00 Test Item Value Reference Range Interpretation Comments BUN (test code = BUN) 5 7-22 [facility]UdtstsdQZSCWUXSEAIR5218-04-27 11:08:00 Test Item Value Reference Range Interpretation Comments Chloride Lvl (test code = Chloride Lvl) 106 95-109 [facility]OdeccqjKOYAGPGLTOGP2750-88-05 11:08:00 Test Item Value Reference Range Interpretation Comments eGFR (test code = eGFR) 123 [facility]IlwjqadPTFCPZHYOPLO5994-69-40 11:08:00 Test Item Value Reference Range Interpretation Comments Glucose Lvl (test code = Glucose Lvl) 108 70-99 [facility] HospitalGwccljfNYAAVVYUYR0320-18-34 11:08:00 Test Item Value Reference Range Interpretation Comments Platelet (test code = Platelet) 371 133-450 [facility] HospitalXjoybieSWMPTAXLTL4712-20-23 11:08:00 Test Item Value Reference Range Interpretation Comments MPV (test code = MPV) 8.1 7.4-10.4 [facility] HospitalAxbazxiCZBGUPWFTY1990-67-97 11:08:00 Test Item Value Reference Range Interpretation Comments MCV (test code = MCV) 82.2 80.0-98.0 [facility] HospitalKvwniqlLMNAUBATQR6486-13-39 11:08:00 Test Item Value Reference Range Interpretation Comments MCHC (test code = MCHC) 32.4 32.0-36.0 [facility] HospitalXshgnmmBHZNUBTXGI3922-21-91 11:08:00 Test Item Value Reference Range Interpretation Comments RDW (test code = RDW) 17.7 11.5-14.5 [facility] HospitalHwfhorjVQXCQPOMCR5039-32-76 11:08:00 Test Item Value Reference Range Interpretation Comments MCH (test code = MCH) 26.7 pg 27.0-31.0 [facility] HospitalPhkhawoLSKLHTGNUU5146-00-62 11:08:00 Test Item Value Reference Range Interpretation Comments RBC X 10x6 (test code = RBC X 10x6) 3.93 4.20-5.40 [facility] HospitalQfduzhiSVYHFAUPXC7669-36-34 11:08:00 Test Item Value Reference Range Interpretation Comments Hct (test code = Hct) 32.3 36.0-48.0 [facility] HospitalKdjkyuyDTVCTWZGHV7383-77-30 11:08:00 Test Item Value Reference Range Interpretation Comments Hgb (test code = Hgb) 10.5 12.0-16.0 [facility] HospitalOvmtkpiORFIWFFGOU6537-20-84 11:08:00 Test Item Value Reference Range Interpretation Comments WBC X 10x3 (test code = WBC X 10x3) 9.5 3.7-10.4 [facility]YudotggLEYVWIMPEKJX4721-85-48 11:08:00 Test Item Value Reference Range Interpretation Comments AGAP (test code = AGAP) 14.3 10.0-20.0 [facility]TemxqtiSOJUEAKGEFUB7176-92-19 11:08:00 Test Item Value Reference Range Interpretation Comments Sodium Lvl (test code = Sodium Lvl) 140 135-145 [facility]IcyerouESEVVCCDTCKG0857-24-35 11:08:00 Test Item Value Reference Range Interpretation Comments Potassium Lvl (test code = Potassium 3.3 3.5-5.1 Lvl) [facility]PzxqfinDWVJVYBEIZPR2618-68-42 11:08:00 Test Item Value Reference Range Interpretation Comments CO2 (test code = CO2) 23 24-32 [facility]LspcswsHVEQEMBHVFXV7596-11-36 11:08:00 Test Item Value Reference Range Interpretation Comments Calcium Lvl (test code = Calcium Lvl) 7.6 8.5-10.5 [facility]FcudeptRLVDERDOZQCP1203-52-11 11:08:00 Test Item Value Reference Range Interpretation Comments Creatinine Lvl (test code = Creatinine 0.64 0.50-1.40 Lvl) [facility]GdfgpcqGQQAZBKQGLJE0601-74-88 11:08:00 Test Item Value Reference Range Interpretation Comments BUN (test code = BUN) 5 7-22 [facility]XtjjtgaATNBQLSDKJLB5137-89-47 11:08:00 Test Item Value Reference Range Interpretation Comments Chloride Lvl (test code = Chloride Lvl) 106 95-109 [facility]FjaowghZYXIPXQBHLVX7851-99-24 11:08:00 Test Item Value Reference Range Interpretation Comments eGFR (test code = eGFR) 123 [facility]TyintaiQEMWQSTDFKLR6843-03-57 11:08:00 Test Item Value Reference Range Interpretation Comments Glucose Lvl (test code = Glucose Lvl) 108 70-99 [facility] HospitalNzgzeflMZFEJSJZZA0997-60-44 11:08:00 Test Item Value Reference Range Interpretation Comments Platelet (test code = Platelet) 371 133-450 [facility] HospitalYrxzsngBDARZBQACR8347-53-03 11:08:00 Test Item Value Reference Range Interpretation Comments MPV (test code = MPV) 8.1 7.4-10.4 [facility] HospitalCmipxhsVSWDPZHYYM9054-07-12 11:08:00 Test Item Value Reference Range Interpretation Comments MCV (test code = MCV) 82.2 80.0-98.0 [facility] HospitalSarkrloCFQGOSBGWG9127-94-01 11:08:00 Test Item Value Reference Range Interpretation Comments MCHC (test code = MCHC) 32.4 32.0-36.0 [facility] HospitalWxphffwRFBBSVMIIQ5770-91-64 11:08:00 Test Item Value Reference Range Interpretation Comments RDW (test code = RDW) 17.7 11.5-14.5 [facility] HospitalMskngufRWRQLVGLAI8524-09-87 11:08:00 Test Item Value Reference Range Interpretation Comments MCH (test code = MCH) 26.7 pg 27.0-31.0 [facility] HospitalFqhraciMXRTMZYECW9862-22-16 11:08:00 Test Item Value Reference Range Interpretation Comments RBC X 10x6 (test code = RBC X 10x6) 3.93 4.20-5.40 [facility] HospitalScybvuzVUNPZANMTL0818-26-82 11:08:00 Test Item Value Reference Range Interpretation Comments Hct (test code = Hct) 32.3 36.0-48.0 [facility] HospitalKtpiewgKWQDSHSUJX6082-92-95 11:08:00 Test Item Value Reference Range Interpretation Comments Hgb (test code = Hgb) 10.5 12.0-16.0 [facility] HospitalUtzawskSNMLNKTSUX5052-59-95 11:08:00 Test Item Value Reference Range Interpretation Comments WBC X 10x3 (test code = WBC X 10x3) 9.5 3.7-10.4 [facility]GwpepebHZOVIYPTHADN5511-87-49 11:08:00 Test Item Value Reference Range Interpretation Comments AGAP (test code = AGAP) 14.3 10.0-20.0 [facility] MichiganMuyppcuBAERCKBGMXLS2199-96-78 11:08:00 Test Item Value Reference Range Interpretation Comments Sodium Lvl (test code = Sodium Lvl) 140 135-145 [facility]MdfpztpAFNZWFMAAAHW9929-45-13 11:08:00 Test Item Value Reference Range Interpretation Comments Potassium Lvl (test code = Potassium 3.3 3.5-5.1 Lvl) [facility] MichiganCoegraoMPSGKDCMVFSB2205-35-71 11:08:00 Test Item Value Reference Range Interpretation Comments CO2 (test code = CO2) 23 24-32 [facility]OslfrbqVNGWMDKUGRTF6910-41-71 11:08:00 Test Item Value Reference Range Interpretation Comments Calcium Lvl (test code = Calcium Lvl) 7.6 8.5-10.5 [facility]ZrgzhwhYDGQUHDWWZWI7574-22-36 11:08:00 Test Item Value Reference Range Interpretation Comments Creatinine Lvl (test code = Creatinine 0.64 0.50-1.40 Lvl) [facility]FzoqmwuTEUSCPCPWETD4172-09-78 11:08:00 Test Item Value Reference Range Interpretation Comments BUN (test code = BUN) 5 7-22 [facility]VybjxnrFJJAOCZXAMRY4389-08-95 11:08:00 Test Item Value Reference Range Interpretation Comments Chloride Lvl (test code = Chloride Lvl) 106 95-109 [facility]ZtgtgtzOJFMDFBBTEUT4313-40-37 11:08:00 Test Item Value Reference Range Interpretation Comments eGFR (test code = eGFR) 123 [facility] MichiganBakdjasCBHTVKAUBPKX8405-74-09 11:08:00 Test Item Value Reference Range Interpretation Comments Glucose Lvl (test code = Glucose Lvl) 108 70-99 [facility] HospitalQbrbecyMQQWFQAWCT6380-04-39 11:08:00 Test Item Value Reference Range Interpretation Comments Platelet (test code = Platelet) 371 133-450 [facility] HospitalExjyzszRTOPXLHUAA0482-56-77 11:08:00 Test Item Value Reference Range Interpretation Comments MPV (test code = MPV) 8.1 7.4-10.4 [facility] HospitalUowrbhrLWGAWQPNUD1245-06-82 11:08:00 Test Item Value Reference Range Interpretation Comments MCV (test code = MCV) 82.2 80.0-98.0 [facility] HospitalVnlnskvQDESJSVLQR3075-16-17 11:08:00 Test Item Value Reference Range Interpretation Comments MCHC (test code = MCHC) 32.4 32.0-36.0 [facility] HospitalYunuxwrYFSCSJRGJQ8921-32-43 11:08:00 Test Item Value Reference Range Interpretation Comments RDW (test code = RDW) 17.7 11.5-14.5 [facility] HospitalTdulhtsURPDMCVXJD5248-42-16 11:08:00 Test Item Value Reference Range Interpretation Comments MCH (test code = MCH) 26.7 pg 27.0-31.0 [facility] HospitalHkapsjxNZVWZIBUOP7223-93-94 11:08:00 Test Item Value Reference Range Interpretation Comments RBC X 10x6 (test code = RBC X 10x6) 3.93 4.20-5.40 [facility] HospitalDpqaibqOOLHXAWQSY1350-59-45 11:08:00 Test Item Value Reference Range Interpretation Comments Hct (test code = Hct) 32.3 36.0-48.0 [facility] HospitalIrtepumNWAZBQDCHP3336-43-97 11:08:00 Test Item Value Reference Range Interpretation Comments Hgb (test code = Hgb) 10.5 12.0-16.0 [facility] HospitalYsyzpefBNHJLWBBCW0440-52-27 11:08:00 Test Item Value Reference Range Interpretation Comments WBC X 10x3 (test code = WBC X 10x3) 9.5 3.7-10.4 [facility]2016-07-11 07:33:00 Test Item Value Reference Range Interpretation Comments eGFR (test code = eGFR) 125 [facility]2016-07-11 07:33:00 Test Item Value Reference Range Interpretation Comments Potassium Lvl (test code = Potassium 3.9 3.5-5.1 Lvl) [facility]2016-07-11 07:33:00 Test Item Value Reference Range Interpretation Comments Chloride Lvl (test code = Chloride Lvl) 107 95-109 [facility]2016-07-11 07:33:00 Test Item Value Reference Range Interpretation Comments Creatinine Lvl (test code = Creatinine 0.61 0.50-1.40 Lvl) [facility]2016-07-11 07:33:00 Test Item Value Reference Range Interpretation Comments Sodium Lvl (test code = Sodium Lvl) 140 135-145 [facility]2016-07-11 07:33:00 Test Item Value Reference Range Interpretation Comments Calcium Lvl (test code = Calcium Lvl) 8.1 8.5-10.5 [facility]2016-07-11 07:33:00 Test Item Value Reference Range Interpretation Comments BUN (test code = BUN) 10 7-22 [facility]2016-07-11 07:33:00 Test Item Value Reference Range Interpretation Comments Glucose Lvl (test code = Glucose Lvl) 88 70-99 [facility]2016-07-11 07:33:00 Test Item Value Reference Range Interpretation Comments CO2 (test code = CO2) 23 24-32 [facility]2016-07-11 07:33:00 Test Item Value Reference Range Interpretation Comments AGAP (test code = AGAP) 13.9 10.0-20.0 [facility] HospitalOqejprhCYBOTFPBGI6654-97-97 07:33:00 Test Item Value Reference Range Interpretation Comments Platelet (test code = Platelet) 419 133-450 [facility] HospitalJhphhnmOIXBOJQLSL6420-79-88 07:33:00 Test Item Value Reference Range Interpretation Comments MPV (test code = MPV) 8.3 7.4-10.4 [facility] HospitalXqnzqxzCKELUAUNBU7510-89-52 07:33:00 Test Item Value Reference Range Interpretation Comments RDW (test code = RDW) 18.3 11.5-14.5 [facility] HospitalKptsrfuVYXHOWDUUS4891-86-77 07:33:00 Test Item Value Reference Range Interpretation Comments MCV (test code = MCV) 82.4 80.0-98.0 [facility] HospitalSxzesyzDOIUYKWTQZ8366-66-30 07:33:00 Test Item Value Reference Range Interpretation Comments MCHC (test code = MCHC) 32.1 32.0-36.0 [facility] HospitalUqmqqojIGKFGOBETS1619-12-66 07:33:00 Test Item Value Reference Range Interpretation Comments MCH (test code = MCH) 26.4 pg 27.0-31.0 [facility] HospitalIdflqqpXKDUYFXPQU0912-43-31 07:33:00 Test Item Value Reference Range Interpretation Comments Hct (test code = Hct) 34.7 36.0-48.0 [facility] HospitalVawsgreZYIBLDXFVC5668-06-45 07:33:00 Test Item Value Reference Range Interpretation Comments RBC X 10x6 (test code = RBC X 10x6) 4.21 4.20-5.40 [facility] HospitalHkwicllWPXXRYZUWW8148-60-76 07:33:00 Test Item Value Reference Range Interpretation Comments Hgb (test code = Hgb) 11.1 12.0-16.0 [facility] HospitalOzpipfyCDMGRNFTVJ0572-84-32 07:33:00 Test Item Value Reference Range Interpretation Comments WBC X 10x3 (test code = WBC X 10x3) 14.8 3.7-10.4 [facility] HospitalCfjrzglHRVPNQAFNQ0135-41-24 07:33:00 Test Item Value Reference Range Interpretation Comments Lymphocytes # (test code = Lymphocytes 2.1 1.0-5.5 #) [facility] HospitalUzkxshpRORDVXHLOB7563-29-07 07:33:00 Test Item Value Reference Range Interpretation Comments Monocytes # (test code 0.9 See_Comment [Aut omated message] The = Monocytes #) system which generated this result tra nsmitted reference range : <=0.8. The reference r bertha was not used to int erpret this result as normal/abnormal . [facility] HospitalDagtgefCIZHWRZWSL6913-56-14 07:33:00 Test Item Value Reference Range Interpretation Comments Segs-Bands # (test code = Segs-Bands #) 11.7 1.5-8.1 [facility] HospitalBngaaioXOLNFEWXQD7745-90-17 07:33:00 Test Item Value Reference Range Interpretation Comments Eosinophils (test code = 0.3 See_Comment [A utomated message] The Eosinophils) system which ge nerated this result tra nsmitted reference range : <=4.0. The reference r bertha was not used to int erpret this result as normal/abnormal . [facility] HospitalTycitzjRWPMLGWOPG5520-11-52 07:33:00 Test Item Value Reference Range Interpretation Comments Lymphocytes (test code = Lymphocytes) 14.1 20.0-40.0 [facility] HospitalFaouqldMAEABSSHIE5474-63-87 07:33:00 Test Item Value Reference Range Interpretation Comments Basophils (test code = 0.3 See_Comment [Aut omated message] The Basophils) system which ge nerated this result tra nsmitted reference range : <=1.0. The reference r bertha was not used to int erpret this result as normal/abnormal . [facility] HospitalLoxxoqhUJFSGNHWMJ5900-57-46 07:33:00 Test Item Value Reference Range Interpretation Comments Monocytes (test code = Monocytes) 6.3 2.0-12.0 [facility] HospitalGpsbkkqFDPONJBZBV5115-77-00 07:33:00 Test Item Value Reference Range Interpretation Comments Segs (test code = Segs) 79.0 45.0-75.0 [facility] VUFST3530-37-84 07:33:00 Test Item Value Reference Range Interpretation Comments eGFR (test code = eGFR) 125 [facility] VDLMR8467-82-76 07:33:00 Test Item Value Reference Range Interpretation Comments Potassium Lvl (test code = Potassium 3.9 3.5-5.1 Lvl) [facility]2016-07-11 07:33:00 Test Item Value Reference Range Interpretation Comments Chloride Lvl (test code = Chloride Lvl) 107 95-109 [facility]2016-07-11 07:33:00 Test Item Value Reference Range Interpretation Comments Creatinine Lvl (test code = Creatinine 0.61 0.50-1.40 Lvl) [facility]2016-07-11 07:33:00 Test Item Value Reference Range Interpretation Comments Sodium Lvl (test code = Sodium Lvl) 140 135-145 [facility]2016-07-11 07:33:00 Test Item Value Reference Range Interpretation Comments Calcium Lvl (test code = Calcium Lvl) 8.1 8.5-10.5 [facility]2016-07-11 07:33:00 Test Item Value Reference Range Interpretation Comments BUN (test code = BUN) 10 7-22 [facility]2016-07-11 07:33:00 Test Item Value Reference Range Interpretation Comments Glucose Lvl (test code = Glucose Lvl) 88 70-99 [facility]2016-07-11 07:33:00 Test Item Value Reference Range Interpretation Comments CO2 (test code = CO2) 23 24-32 [facility]2016-07-11 07:33:00 Test Item Value Reference Range Interpretation Comments AGAP (test code = AGAP) 13.9 10.0-20.0 [facility] HospitalWhatkjvCWYPLSMWGD1533-20-51 07:33:00 Test Item Value Reference Range Interpretation Comments Platelet (test code = Platelet) 419 133-450 [facility] HospitalFdcfptsEOSVHNFYNL9936-73-20 07:33:00 Test Item Value Reference Range Interpretation Comments MPV (test code = MPV) 8.3 7.4-10.4 [facility] HospitalLjonesyBUJUWTZQPF4295-86-75 07:33:00 Test Item Value Reference Range Interpretation Comments RDW (test code = RDW) 18.3 11.5-14.5 [facility] HospitalMqxkesuMIVZELIUAC1469-91-25 07:33:00 Test Item Value Reference Range Interpretation Comments MCV (test code = MCV) 82.4 80.0-98.0 [facility] HospitalKxuyrbgISEUNKDPKF2837-47-32 07:33:00 Test Item Value Reference Range Interpretation Comments MCHC (test code = MCHC) 32.1 32.0-36.0 [facility] HospitalUwseuirIPHEKSVONS5870-73-27 07:33:00 Test Item Value Reference Range Interpretation Comments MCH (test code = MCH) 26.4 pg 27.0-31.0 [facility] HospitalZbwchfeLVOMUAEECR3337-43-76 07:33:00 Test Item Value Reference Range Interpretation Comments Hct (test code = Hct) 34.7 36.0-48.0 [facility] HospitalIlvxjctMCQXJUIXSE3363-54-57 07:33:00 Test Item Value Reference Range Interpretation Comments RBC X 10x6 (test code = RBC X 10x6) 4.21 4.20-5.40 [facility] HospitalRamuzmvQBTGIMURLO3517-42-61 07:33:00 Test Item Value Reference Range Interpretation Comments Hgb (test code = Hgb) 11.1 12.0-16.0 [facility] HospitalUygziziGXPPSEJZDT1728-57-64 07:33:00 Test Item Value Reference Range Interpretation Comments WBC X 10x3 (test code = WBC X 10x3) 14.8 3.7-10.4 [facility] HospitalJocjayuINNZHXWHMH4183-71-92 07:33:00 Test Item Value Reference Range Interpretation Comments Lymphocytes # (test code = Lymphocytes 2.1 1.0-5.5 #) [facility] HospitalNwsbojuTNLEYTCCKD9989-71-79 07:33:00 Test Item Value Reference Range Interpretation Comments Monocytes # (test code 0.9 See_Comment [Aut omated message] The = Monocytes #) system which generated this result tra nsmitted reference range : <=0.8. The reference r bertha was not used to int erpret this result as normal/abnormal . [facility] HospitalGsunsybCCKHWHSFAR8098-36-45 07:33:00 Test Item Value Reference Range Interpretation Comments Segs-Bands # (test code = Segs-Bands #) 11.7 1.5-8.1 [facility] HospitalIsipmogMFNJLGSJVH5479-72-52 07:33:00 Test Item Value Reference Range Interpretation Comments Eosinophils (test code = 0.3 See_Comment [A utomated message] The Eosinophils) system which ge nerated this result tra nsmitted reference range : <=4.0. The reference r bertha was not used to int erpret this result as normal/abnormal . [facility] HospitalUvrczxmVHCYRBEOVO0332-44-02 07:33:00 Test Item Value Reference Range Interpretation Comments Lymphocytes (test code = Lymphocytes) 14.1 20.0-40.0 [facility] HospitalLghmvurZNDLXLQFBZ0760-09-42 07:33:00 Test Item Value Reference Range Interpretation Comments Basophils (test code = 0.3 See_Comment [Aut omated message] The Basophils) system which ge nerated this result tra nsmitted reference range : <=1.0. The reference r bertha was not used to int erpret this result as normal/abnormal . [facility] HospitalTjwfxtgCUQSHUHELE8282-24-31 07:33:00 Test Item Value Reference Range Interpretation Comments Monocytes (test code = Monocytes) 6.3 2.0-12.0 [facility] HospitalTqhnaymAWPPXPTMKQ1647-54-82 07:33:00 Test Item Value Reference Range Interpretation Comments Segs (test code = Segs) 79.0 45.0-75.0 [facility]2016-07-11 07:33:00 Test Item Value Reference Range Interpretation Comments eGFR (test code = eGFR) 125 [facility]2016-07-11 07:33:00 Test Item Value Reference Range Interpretation Comments Potassium Lvl (test code = Potassium 3.9 3.5-5.1 Lvl) [facility]2016-07-11 07:33:00 Test Item Value Reference Range Interpretation Comments Chloride Lvl (test code = Chloride Lvl) 107 95-109 [facility]2016-07-11 07:33:00 Test Item Value Reference Range Interpretation Comments Creatinine Lvl (test code = Creatinine 0.61 0.50-1.40 Lvl) [facility]2016-07-11 07:33:00 Test Item Value Reference Range Interpretation Comments Sodium Lvl (test code = Sodium Lvl) 140 135-145 [facility]2016-07-11 07:33:00 Test Item Value Reference Range Interpretation Comments Calcium Lvl (test code = Calcium Lvl) 8.1 8.5-10.5 [facility]2016-07-11 07:33:00 Test Item Value Reference Range Interpretation Comments BUN (test code = BUN) 10 7-22 [facility]2016-07-11 07:33:00 Test Item Value Reference Range Interpretation Comments Glucose Lvl (test code = Glucose Lvl) 88 70-99 [facility]2016-07-11 07:33:00 Test Item Value Reference Range Interpretation Comments CO2 (test code = CO2) 23 24-32 [facility]2016-07-11 07:33:00 Test Item Value Reference Range Interpretation Comments AGAP (test code = AGAP) 13.9 10.0-20.0 [facility] HospitalXlzacgmNGINNEFHSO3177-70-66 07:33:00 Test Item Value Reference Range Interpretation Comments Platelet (test code = Platelet) 419 133-450 [facility] HospitalEvwlthySONSPJYLQS0345-06-26 07:33:00 Test Item Value Reference Range Interpretation Comments MPV (test code = MPV) 8.3 7.4-10.4 [facility] HospitalTykdrjePCOPLOVMGG2476-59-53 07:33:00 Test Item Value Reference Range Interpretation Comments RDW (test code = RDW) 18.3 11.5-14.5 [facility] HospitalJgsbevaCIUWSPVQPD6413-97-67 07:33:00 Test Item Value Reference Range Interpretation Comments MCV (test code = MCV) 82.4 80.0-98.0 [facility] HospitalTirillgMGBCCGKDSW2766-49-45 07:33:00 Test Item Value Reference Range Interpretation Comments MCHC (test code = MCHC) 32.1 32.0-36.0 [facility] HospitalQdfsdaeIIGRWCESQT7597-75-65 07:33:00 Test Item Value Reference Range Interpretation Comments MCH (test code = MCH) 26.4 pg 27.0-31.0 [facility] HospitalIttcntqCPOEUFQWVE2956-38-44 07:33:00 Test Item Value Reference Range Interpretation Comments Hct (test code = Hct) 34.7 36.0-48.0 [facility] HospitalHgkzgqaOBVWKFJWIJ1612-06-18 07:33:00 Test Item Value Reference Range Interpretation Comments RBC X 10x6 (test code = RBC X 10x6) 4.21 4.20-5.40 [facility] HospitalZzivhplNNAAAJEQJX8920-25-22 07:33:00 Test Item Value Reference Range Interpretation Comments Hgb (test code = Hgb) 11.1 12.0-16.0 [facility] HospitalCneqmwxJENDTSREWL4678-88-63 07:33:00 Test Item Value Reference Range Interpretation Comments WBC X 10x3 (test code = WBC X 10x3) 14.8 3.7-10.4 [facility] HospitalGqhtbdpPVZZIXBWYM4247-36-69 07:33:00 Test Item Value Reference Range Interpretation Comments Lymphocytes # (test code = Lymphocytes 2.1 1.0-5.5 #) [facility] HospitalMcpepegJXRINIYGWG3960-15-46 07:33:00 Test Item Value Reference Range Interpretation Comments Monocytes # (test code 0.9 See_Comment [Aut omated message] The = Monocytes #) system which generated this result tra nsmitted reference range : <=0.8. The reference r bertha was not used to int erpret this result as normal/abnormal . [facility] HospitalMtlnuyrGIRYXVJGYA0232-06-22 07:33:00 Test Item Value Reference Range Interpretation Comments Segs-Bands # (test code = Segs-Bands #) 11.7 1.5-8.1 [facility] HospitalKhwewflAZBAMHASIV2744-65-33 07:33:00 Test Item Value Reference Range Interpretation Comments Eosinophils (test code = 0.3 See_Comment [A utomated message] The Eosinophils) system which ge nerated this result tra nsmitted reference range : <=4.0. The reference r bertha was not used to int erpret this result as normal/abnormal . [facility] HospitalZuwwrmjQBLBRJGUYD2573-75-67 07:33:00 Test Item Value Reference Range Interpretation Comments Lymphocytes (test code = Lymphocytes) 14.1 20.0-40.0 [facility] HospitalBdnmtwjXTUMYJDSCF8729-90-96 07:33:00 Test Item Value Reference Range Interpretation Comments Basophils (test code = 0.3 See_Comment [Aut omated message] The Basophils) system which ge nerated this result tra nsmitted reference range : <=1.0. The reference r bertha was not used to int erpret this result as normal/abnormal . [facility] HospitalGmrumrrGQTMFRSEMM4340-87-69 07:33:00 Test Item Value Reference Range Interpretation Comments Monocytes (test code = Monocytes) 6.3 2.0-12.0 [facility] HospitalTbqdibtZPGNLFWYEX1467-75-40 07:33:00 Test Item Value Reference Range Interpretation Comments Segs (test code = Segs) 79.0 45.0-75.0 [facility] FIKHO3027-71-43 07:33:00 Test Item Value Reference Range Interpretation Comments eGFR (test code = eGFR) 125 [facility] KBAEC1339-71-59 07:33:00 Test Item Value Reference Range Interpretation Comments Potassium Lvl (test code = Potassium 3.9 3.5-5.1 Lvl) [facility]2016-07-11 07:33:00 Test Item Value Reference Range Interpretation Comments Chloride Lvl (test code = Chloride Lvl) 107 95-109 [facility]2016-07-11 07:33:00 Test Item Value Reference Range Interpretation Comments Creatinine Lvl (test code = Creatinine 0.61 0.50-1.40 Lvl) [facility]2016-07-11 07:33:00 Test Item Value Reference Range Interpretation Comments Sodium Lvl (test code = Sodium Lvl) 140 135-145 [facility]2016-07-11 07:33:00 Test Item Value Reference Range Interpretation Comments Calcium Lvl (test code = Calcium Lvl) 8.1 8.5-10.5 [facility]2016-07-11 07:33:00 Test Item Value Reference Range Interpretation Comments BUN (test code = BUN) 10 7-22 [facility]2016-07-11 07:33:00 Test Item Value Reference Range Interpretation Comments Glucose Lvl (test code = Glucose Lvl) 88 70-99 [facility]2016-07-11 07:33:00 Test Item Value Reference Range Interpretation Comments CO2 (test code = CO2) 23 24-32 [facility]2016-07-11 07:33:00 Test Item Value Reference Range Interpretation Comments AGAP (test code = AGAP) 13.9 10.0-20.0 [facility] HospitalHcbvrppBUYUFUFHSG0694-28-39 07:33:00 Test Item Value Reference Range Interpretation Comments Platelet (test code = Platelet) 419 133-450 [facility] HospitalCdgsgscEYJDJECZDM3733-57-02 07:33:00 Test Item Value Reference Range Interpretation Comments MPV (test code = MPV) 8.3 7.4-10.4 [facility] HospitalDhwkdxdBKVNJGRFBU9391-58-57 07:33:00 Test Item Value Reference Range Interpretation Comments RDW (test code = RDW) 18.3 11.5-14.5 [facility] HospitalTjeojqoCEPFYRXRZZ5444-74-36 07:33:00 Test Item Value Reference Range Interpretation Comments MCV (test code = MCV) 82.4 80.0-98.0 [place] 923136-07-11 07:33:00 Test Item Value Reference Range Interpretation Comments MCHC (test code = MCHC) 32.1 32.0-36.0 [facility] HospitalZscdswhLAXNQHWDRW4155-60-87 07:33:00 Test Item Value Reference Range Interpretation Comments MCH (test code = MCH) 26.4 pg 27.0-31.0 [facility] HospitalZtnlzczWMJVWORCKV8951-07-86 07:33:00 Test Item Value Reference Range Interpretation Comments Hct (test code = Hct) 34.7 36.0-48.0 [facility] HospitalDhlhfmdWXTEOUDWTS3512-86-48 07:33:00 Test Item Value Reference Range Interpretation Comments RBC X 10x6 (test code = RBC X 10x6) 4.21 4.20-5.40 [facility] HospitalLaldlytPRLULIQTMH5522-63-53 07:33:00 Test Item Value Reference Range Interpretation Comments Hgb (test code = Hgb) 11.1 12.0-16.0 [facility] HospitalWhesruyKBFFYTPCIR0082-60-68 07:33:00 Test Item Value Reference Range Interpretation Comments WBC X 10x3 (test code = WBC X 10x3) 14.8 3.7-10.4 [facility] HospitalTkjbwprALKMKENGCB7515-22-15 07:33:00 Test Item Value Reference Range Interpretation Comments Lymphocytes # (test code = Lymphocytes 2.1 1.0-5.5 #) [facility] HospitalEneqvfbKPXVIIHLOF6466-86-75 07:33:00 Test Item Value Reference Range Interpretation Comments Monocytes # (test code 0.9 See_Comment [Aut omated message] The = Monocytes #) system which generated this result tra nsmitted reference range : <=0.8. The reference r bertha was not used to int erpret this result as normal/abnormal . [facility] HospitalUijphmlBDLCRMPQHH1279-95-16 07:33:00 Test Item Value Reference Range Interpretation Comments Segs-Bands # (test code = Segs-Bands #) 11.7 1.5-8.1 [facility] HospitalJfacnhiRGPVLOAHXO7501-33-42 07:33:00 Test Item Value Reference Range Interpretation Comments Eosinophils (test code = 0.3 See_Comment [A utomated message] The Eosinophils) system which ge nerated this result tra nsmitted reference range : <=4.0. The reference r bertha was not used to int erpret this result as normal/abnormal . [facility] HospitalRsgnikcGWWLDIFMDL1019-51-47 07:33:00 Test Item Value Reference Range Interpretation Comments Lymphocytes (test code = Lymphocytes) 14.1 20.0-40.0 [facility] HospitalSgfgmefHZGLEZJCHU8589-78-06 07:33:00 Test Item Value Reference Range Interpretation Comments Basophils (test code = 0.3 See_Comment [Aut omated message] The Basophils) system which ge nerated this result tra nsmitted reference range : <=1.0. The reference r bertha was not used to int erpret this result as normal/abnormal . [facility] HospitalNvwxcxlXNNJPFGNOM1113-13-19 07:33:00 Test Item Value Reference Range Interpretation Comments Monocytes (test code = Monocytes) 6.3 2.0-12.0 [facility] HospitalYyulzcvPGVPUMLTUA6958-62-72 07:33:00 Test Item Value Reference Range Interpretation Comments Segs (test code = Segs) 79.0 45.0-75.0 [facility]2016-07-11 07:33:00 Test Item Value Reference Range Interpretation Comments eGFR (test code = eGFR) 125 [facility]2016-07-11 07:33:00 Test Item Value Reference Range Interpretation Comments Potassium Lvl (test code = Potassium 3.9 3.5-5.1 Lvl) [facility]2016-07-11 07:33:00 Test Item Value Reference Range Interpretation Comments Chloride Lvl (test code = Chloride Lvl) 107 95-109 [facility]2016-07-11 07:33:00 Test Item Value Reference Range Interpretation Comments Creatinine Lvl (test code = Creatinine 0.61 0.50-1.40 Lvl) [facility]2016-07-11 07:33:00 Test Item Value Reference Range Interpretation Comments Sodium Lvl (test code = Sodium Lvl) 140 135-145 [facility]2016-07-11 07:33:00 Test Item Value Reference Range Interpretation Comments Calcium Lvl (test code = Calcium Lvl) 8.1 8.5-10.5 [place] 597326-07-11 07:33:00 Test Item Value Reference Range Interpretation Comments BUN (test code = BUN) 10 7-22 [facility]2016-07-11 07:33:00 Test Item Value Reference Range Interpretation Comments Glucose Lvl (test code = Glucose Lvl) 88 70-99 [facility]2016-07-11 07:33:00 Test Item Value Reference Range Interpretation Comments CO2 (test code = CO2) 23 24-32 [facility]2016-07-11 07:33:00 Test Item Value Reference Range Interpretation Comments AGAP (test code = AGAP) 13.9 10.0-20.0 [facility] HospitalYcglxttXTCQWBRFOX1899-80-84 07:33:00 Test Item Value Reference Range Interpretation Comments Platelet (test code = Platelet) 419 133-450 [facility] HospitalFjfclzjOQWXCXWGSX3933-57-81 07:33:00 Test Item Value Reference Range Interpretation Comments MPV (test code = MPV) 8.3 7.4-10.4 [facility] HospitalMyrpuqgRGNTUIDLOQ5233-46-90 07:33:00 Test Item Value Reference Range Interpretation Comments RDW (test code = RDW) 18.3 11.5-14.5 [facility] HospitalNnrkobhOJZMVAIKLL3374-36-19 07:33:00 Test Item Value Reference Range Interpretation Comments MCV (test code = MCV) 82.4 80.0-98.0 [facility] HospitalFijapswOPVYIENXZO9943-37-93 07:33:00 Test Item Value Reference Range Interpretation Comments MCHC (test code = MCHC) 32.1 32.0-36.0 [facility] HospitalVtoigdwYXLEWQSICU1840-42-81 07:33:00 Test Item Value Reference Range Interpretation Comments MCH (test code = MCH) 26.4 pg 27.0-31.0 [facility]2016-07-11 07:33:00 Test Item Value Reference Range Interpretation Comments eGFR (test code = eGFR) 125 [facility]2016-07-11 07:33:00 Test Item Value Reference Range Interpretation Comments Potassium Lvl (test code = Potassium 3.9 3.5-5.1 Lvl) [facility]2016-07-11 07:33:00 Test Item Value Reference Range Interpretation Comments Chloride Lvl (test code = Chloride Lvl) 107 95-109 [facility]2016-07-11 07:33:00 Test Item Value Reference Range Interpretation Comments Creatinine Lvl (test code = Creatinine 0.61 0.50-1.40 Lvl) [facility] HospitalRqcydfuCCJCLCCTGJ3334-70-33 07:33:00 Test Item Value Reference Range Interpretation Comments Hct (test code = Hct) 34.7 36.0-48.0 [facility] [facility]00 Test Item Value Reference Range Interpretation Comments Sodium Lvl (test code = Sodium Lvl) 140 135-145 [facility]2016-07-11 07:33:00 Test Item Value Reference Range Interpretation Comments Calcium Lvl (test code = Calcium Lvl) 8.1 8.5-10.5 [facility]2016-07-11 07:33:00 Test Item Value Reference Range Interpretation Comments BUN (test code = BUN) 10 7-22 [facility]2016-07-11 07:33:00 Test Item Value Reference Range Interpretation Comments Glucose Lvl (test code = Glucose Lvl) 88 70-99 [facility]2016-07-11 07:33:00 Test Item Value Reference Range Interpretation Comments CO2 (test code = CO2) 23 24-32 [facility]RuaxcnzBTXQSRMZGQ2241-15-55 07:33:00 Test Item Value Reference Range Interpretation Comments RBC X 10x6 (test code = RBC X 10x6) 4.21 4.20-5.40 [facility]2016-07-11 07:33:00 Test Item Value Reference Range Interpretation Comments AGAP (test code = AGAP) 13.9 10.0-20.0 [facility] HospitalVmjnkfbQVTPHDLSSX6170-34-13 07:33:00 Test Item Value Reference Range Interpretation Comments Platelet (test code = Platelet) 419 133-450 [facility] HospitalPpdkbixBWASXSZXOC5491-34-31 07:33:00 Test Item Value Reference Range Interpretation Comments MPV (test code = MPV) 8.3 7.4-10.4 [facility] HospitalLcjwstsXOLIFSQGZN2077-21-98 07:33:00 Test Item Value Reference Range Interpretation Comments RDW (test code = RDW) 18.3 11.5-14.5 [facility] HospitalBfwwvkfNIJVSTIHWX4128-74-15 07:33:00 Test Item Value Reference Range Interpretation Comments MCV (test code = MCV) 82.4 80.0-98.0 [facility] HospitalXyoxxiyZALYFJGZMI4757-27-04 07:33:00 Test Item Value Reference Range Interpretation Comments Hgb (test code = Hgb) 11.1 12.0-16.0 [facility] HospitalTarosyyNIUFMMQLJF3334-30-85 07:33:00 Test Item Value Reference Range Interpretation Comments MCHC (test code = MCHC) 32.1 32.0-36.0 [facility] HospitalImssihpEVNEAUPDIT0461-88-96 07:33:00 Test Item Value Reference Range Interpretation Comments MCH (test code = MCH) 26.4 pg 27.0-31.0 [facility] HospitalLpyaljqYMTCCCBCUZ8434-77-61 07:33:00 Test Item Value Reference Range Interpretation Comments Hct (test code = Hct) 34.7 36.0-48.0 [facility] HospitalFhvkdtaKIOHMBOEKI9166-37-22 07:33:00 Test Item Value Reference Range Interpretation Comments RBC X 10x6 (test code = RBC X 10x6) 4.21 4.20-5.40 [facility] HospitalQyumrosNHEZTEOHCQ9515-32-52 07:33:00 Test Item Value Reference Range Interpretation Comments Hgb (test code = Hgb) 11.1 12.0-16.0 [facility] HospitalUpjpqqdHVGSNRSOOL5593-62-15 07:33:00 Test Item Value Reference Range Interpretation Comments WBC X 10x3 (test code = WBC X 10x3) 14.8 3.7-10.4 [facility] HospitalKyprpuePDTQPRZVLP2595-03-24 07:33:00 Test Item Value Reference Range Interpretation Comments WBC X 10x3 (test code = WBC X 10x3) 14.8 3.7-10.4 [facility] HospitalBxcvgojNKEUDPAMPV9425-17-73 07:33:00 Test Item Value Reference Range Interpretation Comments Lymphocytes # (test code = Lymphocytes 2.1 1.0-5.5 #) [facility] HospitalLprvwweVYOXCKRUWF9477-03-77 07:33:00 Test Item Value Reference Range Interpretation Comments Monocytes # (test code 0.9 See_Comment [Aut omated message] The = Monocytes #) system which generated this result tra nsmitted reference range : <=0.8. The reference r ebrtha was not used to int erpret this result as normal/abnormal . [facility] HospitalRkwcblsQBSJPIXXXE0037-09-91 07:33:00 Test Item Value Reference Range Interpretation Comments Segs-Bands # (test code = Segs-Bands #) 11.7 1.5-8.1 [facility] HospitalApgbmzeEXXRMZCHHE5948-86-06 07:33:00 Test Item Value Reference Range Interpretation Comments Eosinophils (test code = 0.3 See_Comment [A utomated message] The Eosinophils) system which ge nerated this result tra nsmitted reference range : <=4.0. The reference r bertha was not used to int erpret this result as normal/abnormal . [facility] HospitalAuyjcykQRUWOOACKQ0169-64-42 07:33:00 Test Item Value Reference Range Interpretation Comments Lymphocytes # (test code = Lymphocytes 2.1 1.0-5.5 #) [facility] HospitalKwgujfyNYNESKZWAX7136-50-61 07:33:00 Test Item Value Reference Range Interpretation Comments Lymphocytes (test code = Lymphocytes) 14.1 20.0-40.0 [facility] HospitalLsfkwrkJQJYOJXEDR8889-80-56 07:33:00 Test Item Value Reference Range Interpretation Comments Basophils (test code = 0.3 See_Comment [Aut omated message] The Basophils) system which ge nerated this result tra nsmitted reference range : <=1.0. The reference r bertha was not used to int erpret this result as normal/abnormal . [facility] HospitalLzvznguQPGGIRMTMV5595-48-44 07:33:00 Test Item Value Reference Range Interpretation Comments Monocytes (test code = Monocytes) 6.3 2.0-12.0 [facility] HospitalZeqyzkxHIAJFBODVZ9713-17-44 07:33:00 Test Item Value Reference Range Interpretation Comments Segs (test code = Segs) 79.0 45.0-75.0 [facility] HospitalXubxlltAFKZRHNZHC0427-64-71 07:33:00 Test Item Value Reference Range Interpretation Comments Monocytes # (test code 0.9 See_Comment [Aut omated message] The = Monocytes #) system which generated this result tra nsmitted reference range : <=0.8. The reference r bertha was not used to int erpret this result as normal/abnormal . [facility] HospitalDuflumlGRPLVSNODP4203-63-34 07:33:00 Test Item Value Reference Range Interpretation Comments Segs-Bands # (test code = Segs-Bands #) 11.7 1.5-8.1 [facility] HospitalKoaarebHYZPVNUVJC4134-32-13 07:33:00 Test Item Value Reference Range Interpretation Comments Eosinophils (test code = 0.3 See_Comment [A utomated message] The Eosinophils) system which ge nerated this result tra nsmitted reference range : <=4.0. The reference r bertha was not used to int erpret this result as normal/abnormal . [facility] HospitalMhxsgxeZYWLODMDJK2813-85-37 07:33:00 Test Item Value Reference Range Interpretation Comments Lymphocytes (test code = Lymphocytes) 14.1 20.0-40.0 [facility] HospitalApkujhrUEEJCQZZJP2607-38-46 07:33:00 Test Item Value Reference Range Interpretation Comments Basophils (test code = 0.3 See_Comment [Aut omated message] The Basophils) system which ge nerated this result tra nsmitted reference range : <=1.0. The reference r bertha was not used to int erpret this result as normal/abnormal . [facility] HospitalOhidbtbDMTYFSYYBD3848-05-27 07:33:00 Test Item Value Reference Range Interpretation Comments Monocytes (test code = Monocytes) 6.3 2.0-12.0 [facility] HospitalKmigkywUTVXWSBEYY3744-11-76 07:33:00 Test Item Value Reference Range Interpretation Comments Segs (test code = Segs) 79.0 45.0-75.0 [facility]2016-07-11 07:33:00 Test Item Value Reference Range Interpretation Comments eGFR (test code = eGFR) 125 [facility]2016-07-11 07:33:00 Test Item Value Reference Range Interpretation Comments Potassium Lvl (test code = Potassium 3.9 3.5-5.1 Lvl) [facility]2016-07-11 07:33:00 Test Item Value Reference Range Interpretation Comments Chloride Lvl (test code = Chloride Lvl) 107 95-109 [facility]2016-07-11 07:33:00 Test Item Value Reference Range Interpretation Comments Creatinine Lvl (test code = Creatinine 0.61 0.50-1.40 Lvl) [facility]2016-07-11 07:33:00 Test Item Value Reference Range Interpretation Comments Sodium Lvl (test code = Sodium Lvl) 140 135-145 [facility]2016-07-11 07:33:00 Test Item Value Reference Range Interpretation Comments Calcium Lvl (test code = Calcium Lvl) 8.1 8.5-10.5 [facility]2016-07-11 07:33:00 Test Item Value Reference Range Interpretation Comments BUN (test code = BUN) 10 7-22 [place] 597326-07-11 07:33:00 Test Item Value Reference Range Interpretation Comments Glucose Lvl (test code = Glucose Lvl) 88 70-99 [facility]2016-07-11 07:33:00 Test Item Value Reference Range Interpretation Comments CO2 (test code = CO2) 23 24-32 [facility]2016-07-11 07:33:00 Test Item Value Reference Range Interpretation Comments AGAP (test code = AGAP) 13.9 10.0-20.0 [facility] HospitalHhpkpdzQJHJCWTZTB3912-61-83 07:33:00 Test Item Value Reference Range Interpretation Comments Platelet (test code = Platelet) 419 133-450 [facility] HospitalNjoitsyOSEYXWFOPP1061-93-30 07:33:00 Test Item Value Reference Range Interpretation Comments MPV (test code = MPV) 8.3 7.4-10.4 [facility] HospitalHkxgpeoYIAJKRZAGQ3610-92-97 07:33:00 Test Item Value Reference Range Interpretation Comments RDW (test code = RDW) 18.3 11.5-14.5 [facility] HospitalHomopaaTKWNWBTYBC4461-60-32 07:33:00 Test Item Value Reference Range Interpretation Comments MCV (test code = MCV) 82.4 80.0-98.0 [facility] HospitalMucqiehXSRHWRKOUH3387-50-20 07:33:00 Test Item Value Reference Range Interpretation Comments MCHC (test code = MCHC) 32.1 32.0-36.0 [facility] HospitalPfevibjHGGIXJCWDH4811-29-25 07:33:00 Test Item Value Reference Range Interpretation Comments MCH (test code = MCH) 26.4 pg 27.0-31.0 [facility] HospitalRqgmiccWPBWAQABZZ1120-95-38 07:33:00 Test Item Value Reference Range Interpretation Comments Hct (test code = Hct) 34.7 36.0-48.0 [facility] HospitalDfsqcadGLLJOXXHKW5326-71-83 07:33:00 Test Item Value Reference Range Interpretation Comments RBC X 10x6 (test code = RBC X 10x6) 4.21 4.20-5.40 [facility] HospitalGijfalzDIPDXGYCNG6358-04-67 07:33:00 Test Item Value Reference Range Interpretation Comments Hgb (test code = Hgb) 11.1 12.0-16.0 [facility] HospitalZcngkffCRYQQFIWNU9790-09-89 07:33:00 Test Item Value Reference Range Interpretation Comments WBC X 10x3 (test code = WBC X 10x3) 14.8 3.7-10.4 [facility] HospitalUgiuggdUNHPRKJVYH2507-97-14 07:33:00 Test Item Value Reference Range Interpretation Comments Lymphocytes # (test code = Lymphocytes 2.1 1.0-5.5 #) [facility] HospitalZhltvsnGKQCIOWTXR4236-10-75 07:33:00 Test Item Value Reference Range Interpretation Comments Monocytes # (test code 0.9 See_Comment [Aut omated message] The = Monocytes #) system which generated this result tra nsmitted reference range : <=0.8. The reference r bertha was not used to int erpret this result as normal/abnormal . [facility] HospitalTpylrymEJQQXDZFTE2892-27-38 07:33:00 Test Item Value Reference Range Interpretation Comments Segs-Bands # (test code = Segs-Bands #) 11.7 1.5-8.1 [facility] HospitalAaoiojhILSOAVGXVQ0889-06-30 07:33:00 Test Item Value Reference Range Interpretation Comments Eosinophils (test code = 0.3 See_Comment [A utomated message] The Eosinophils) system which ge nerated this result tra nsmitted reference range : <=4.0. The reference r bertha was not used to int erpret this result as normal/abnormal . [facility] HospitalQbmpdhrKYRXQOISJZ5303-99-57 07:33:00 Test Item Value Reference Range Interpretation Comments Lymphocytes (test code = Lymphocytes) 14.1 20.0-40.0 [facility] HospitalYfoohorJLLOFDWDQS4625-42-11 07:33:00 Test Item Value Reference Range Interpretation Comments Basophils (test code = 0.3 See_Comment [Aut omated message] The Basophils) system which ge nerated this result tra nsmitted reference range : <=1.0. The reference r bertha was not used to int erpret this result as normal/abnormal . [facility] HospitalSyjaihmUGGYXOZRTM6889-10-77 07:33:00 Test Item Value Reference Range Interpretation Comments Monocytes (test code = Monocytes) 6.3 2.0-12.0 [facility] HospitalWtdimzsYKETTFHUMI0125-05-93 07:33:00 Test Item Value Reference Range Interpretation Comments Segs (test code = Segs) 79.0 45.0-75.0 [facility]2016-07-11 07:33:00 Test Item Value Reference Range Interpretation Comments eGFR (test code = eGFR) 125 [facility]2016-07-11 07:33:00 Test Item Value Reference Range Interpretation Comments Potassium Lvl (test code = Potassium 3.9 3.5-5.1 Lvl) [facility]2016-07-11 07:33:00 Test Item Value Reference Range Interpretation Comments Chloride Lvl (test code = Chloride Lvl) 107 95-109 [facility]2016-07-11 07:33:00 Test Item Value Reference Range Interpretation Comments Creatinine Lvl (test code = Creatinine 0.61 0.50-1.40 Lvl) [facility]2016-07-11 07:33:00 Test Item Value Reference Range Interpretation Comments Sodium Lvl (test code = Sodium Lvl) 140 135-145 [facility]2016-07-11 07:33:00 Test Item Value Reference Range Interpretation Comments Calcium Lvl (test code = Calcium Lvl) 8.1 8.5-10.5 [facility]2016-07-11 07:33:00 Test Item Value Reference Range Interpretation Comments BUN (test code = BUN) 10 7-22 [facility]2016-07-11 07:33:00 Test Item Value Reference Range Interpretation Comments Glucose Lvl (test code = Glucose Lvl) 88 70-99 [facility]2016-07-11 07:33:00 Test Item Value Reference Range Interpretation Comments CO2 (test code = CO2) 23 24-32 [facility]2016-07-11 07:33:00 Test Item Value Reference Range Interpretation Comments AGAP (test code = AGAP) 13.9 10.0-20.0 [facility] HospitalWaixdqgKJDLTRLOYX0123-03-94 07:33:00 Test Item Value Reference Range Interpretation Comments Platelet (test code = Platelet) 419 133-450 [facility] HospitalAmilwpyVZUDJYDFRK9543-19-76 07:33:00 Test Item Value Reference Range Interpretation Comments MPV (test code = MPV) 8.3 7.4-10.4 [facility] HospitalDsdbjbjTQCSDHQKFE0310-44-18 07:33:00 Test Item Value Reference Range Interpretation Comments RDW (test code = RDW) 18.3 11.5-14.5 [facility] HospitalZridwysOMRCLLDUJV7422-02-25 07:33:00 Test Item Value Reference Range Interpretation Comments MCV (test code = MCV) 82.4 80.0-98.0 [facility] HospitalNkwpsknYDTZWKIWRT7278-09-54 07:33:00 Test Item Value Reference Range Interpretation Comments MCHC (test code = MCHC) 32.1 32.0-36.0 [facility] HospitalGevcltpTXEPADQZBY8400-71-90 07:33:00 Test Item Value Reference Range Interpretation Comments MCH (test code = MCH) 26.4 pg 27.0-31.0 [facility] HospitalOkhfzttRLJZWCEVWL2902-23-44 07:33:00 Test Item Value Reference Range Interpretation Comments Hct (test code = Hct) 34.7 36.0-48.0 [facility] HospitalUejnlzuDDVSOOTLBQ6882-76-42 07:33:00 Test Item Value Reference Range Interpretation Comments RBC X 10x6 (test code = RBC X 10x6) 4.21 4.20-5.40 [facility] HospitalExdnmeaQOADKLXUJY3779-17-93 07:33:00 Test Item Value Reference Range Interpretation Comments Hgb (test code = Hgb) 11.1 12.0-16.0 [facility] HospitalIzghvdeXWCWJTBCOL0473-19-83 07:33:00 Test Item Value Reference Range Interpretation Comments WBC X 10x3 (test code = WBC X 10x3) 14.8 3.7-10.4 [facility] HospitalByxgjjqRWALBOOMEU6529-78-07 07:33:00 Test Item Value Reference Range Interpretation Comments Lymphocytes # (test code = Lymphocytes 2.1 1.0-5.5 #) [facility] HospitalFjapmwgHOIKLTKICI0710-84-45 07:33:00 Test Item Value Reference Range Interpretation Comments Monocytes # (test code 0.9 See_Comment [Aut omated message] The = Monocytes #) system which generated this result tra nsmitted reference range : <=0.8. The reference r bertha was not used to int erpret this result as normal/abnormal . [facility] HospitalFwlssomVQURMVQBNO8957-14-15 07:33:00 Test Item Value Reference Range Interpretation Comments Segs-Bands # (test code = Segs-Bands #) 11.7 1.5-8.1 [facility] HospitalAshlnonUDEJJTLOHH2982-21-58 07:33:00 Test Item Value Reference Range Interpretation Comments Eosinophils (test code = 0.3 See_Comment [A utomated message] The Eosinophils) system which ge nerated this result tra nsmitted reference range : <=4.0. The reference r bertha was not used to int erpret this result as normal/abnormal . [facility] HospitalPjyjmxkYBOBOEGAXU5780-52-09 07:33:00 Test Item Value Reference Range Interpretation Comments Lymphocytes (test code = Lymphocytes) 14.1 20.0-40.0 [facility] HospitalCbeibpcDNKBAVMCES1416-28-41 07:33:00 Test Item Value Reference Range Interpretation Comments Basophils (test code = 0.3 See_Comment [Aut omated message] The Basophils) system which ge nerated this result tra nsmitted reference range : <=1.0. The reference r bertha was not used to int erpret this result as normal/abnormal . [facility] HospitalZfzdttbCFCMZCXQBF3746-73-95 07:33:00 Test Item Value Reference Range Interpretation Comments Monocytes (test code = Monocytes) 6.3 2.0-12.0 [facility] HospitalGgssbyvRCZCJMUKGS2932-42-18 07:33:00 Test Item Value Reference Range Interpretation Comments Segs (test code = Segs) 79.0 45.0-75.0 [facility]2016-07-11 07:33:00 Test Item Value Reference Range Interpretation Comments eGFR (test code = eGFR) 125 [facility]2016-07-11 07:33:00 Test Item Value Reference Range Interpretation Comments Potassium Lvl (test code = Potassium 3.9 3.5-5.1 Lvl) [facility]2016-07-11 07:33:00 Test Item Value Reference Range Interpretation Comments Chloride Lvl (test code = Chloride Lvl) 107 95-109 [facility]2016-07-11 07:33:00 Test Item Value Reference Range Interpretation Comments Creatinine Lvl (test code = Creatinine 0.61 0.50-1.40 Lvl) [facility]2016-07-11 07:33:00 Test Item Value Reference Range Interpretation Comments Sodium Lvl (test code = Sodium Lvl) 140 135-145 [facility]2016-07-11 07:33:00 Test Item Value Reference Range Interpretation Comments Calcium Lvl (test code = Calcium Lvl) 8.1 8.5-10.5 [facility]2016-07-11 07:33:00 Test Item Value Reference Range Interpretation Comments BUN (test code = BUN) 10 7-22 [facility]2016-07-11 07:33:00 Test Item Value Reference Range Interpretation Comments Glucose Lvl (test code = Glucose Lvl) 88 70-99 [facility]2016-07-11 07:33:00 Test Item Value Reference Range Interpretation Comments CO2 (test code = CO2) 23 24-32 [facility]2016-07-11 07:33:00 Test Item Value Reference Range Interpretation Comments AGAP (test code = AGAP) 13.9 10.0-20.0 [facility] HospitalTetospnQSCKMRVBYG2863-03-29 07:33:00 Test Item Value Reference Range Interpretation Comments Platelet (test code = Platelet) 419 133-450 [facility] HospitalEmdvfhjLFQNYEPWCI1604-41-45 07:33:00 Test Item Value Reference Range Interpretation Comments MPV (test code = MPV) 8.3 7.4-10.4 [facility] HospitalTihvemoUNCXZXMJFZ8097-14-83 07:33:00 Test Item Value Reference Range Interpretation Comments RDW (test code = RDW) 18.3 11.5-14.5 [facility] HospitalKtzfjzoEIRAOLMEJA9695-85-55 07:33:00 Test Item Value Reference Range Interpretation Comments MCV (test code = MCV) 82.4 80.0-98.0 [facility] HospitalErotuwsULWVROTHJN4119-96-40 07:33:00 Test Item Value Reference Range Interpretation Comments MCHC (test code = MCHC) 32.1 32.0-36.0 [facility] HospitalAipzklpEZAVFKNHYZ7585-87-07 07:33:00 Test Item Value Reference Range Interpretation Comments MCH (test code = MCH) 26.4 pg 27.0-31.0 [facility] HospitalYxmtobiFBGWPSJKPU7246-87-39 07:33:00 Test Item Value Reference Range Interpretation Comments Hct (test code = Hct) 34.7 36.0-48.0 [facility] HospitalBydwnczRDWIMQDTAR6652-78-95 07:33:00 Test Item Value Reference Range Interpretation Comments RBC X 10x6 (test code = RBC X 10x6) 4.21 4.20-5.40 [facility] HospitalEqitidrZYMANMQROU3397-09-16 07:33:00 Test Item Value Reference Range Interpretation Comments Hgb (test code = Hgb) 11.1 12.0-16.0 [facility] HospitalVuqpojwFZPIRISQGN1262-23-18 07:33:00 Test Item Value Reference Range Interpretation Comments WBC X 10x3 (test code = WBC X 10x3) 14.8 3.7-10.4 [facility] HospitalPaogvmqHPWNMYVBHH5301-65-39 07:33:00 Test Item Value Reference Range Interpretation Comments Lymphocytes # (test code = Lymphocytes 2.1 1.0-5.5 #) [facility] HospitalDbgfazrAGJHLPHEHM6403-73-29 07:33:00 Test Item Value Reference Range Interpretation Comments Monocytes # (test code 0.9 See_Comment [Aut omated message] The = Monocytes #) system which generated this result tra nsmitted reference range : <=0.8. The reference r bertha was not used to int erpret this result as normal/abnormal . [facility] HospitalKvqyxpmITRQKRPUAT0935-13-53 07:33:00 Test Item Value Reference Range Interpretation Comments Segs-Bands # (test code = Segs-Bands #) 11.7 1.5-8.1 [facility] HospitalAchzjgfSPANFNDSEC4512-03-88 07:33:00 Test Item Value Reference Range Interpretation Comments Eosinophils (test code = 0.3 See_Comment [A utomated message] The Eosinophils) system which ge nerated this result tra nsmitted reference range : <=4.0. The reference r bertha was not used to int erpret this result as normal/abnormal . [facility] HospitalZyjvisrOWYRXHHHTX5015-15-38 07:33:00 Test Item Value Reference Range Interpretation Comments Lymphocytes (test code = Lymphocytes) 14.1 20.0-40.0 [facility] HospitalAbytrptUBRYNKXKUL2884-21-40 07:33:00 Test Item Value Reference Range Interpretation Comments Basophils (test code = 0.3 See_Comment [Aut omated message] The Basophils) system which ge nerated this result tra nsmitted reference range : <=1.0. The reference r bertha was not used to int erpret this result as normal/abnormal . [facility] HospitalNdwzuxoTHXPYOYUZF6360-26-61 07:33:00 Test Item Value Reference Range Interpretation Comments Monocytes (test code = Monocytes) 6.3 2.0-12.0 [facility] HospitalIslqhakCVWGPRXOXY9252-42-40 07:33:00 Test Item Value Reference Range Interpretation Comments Segs (test code = Segs) 79.0 45.0-75.0 [facility]2016-07-11 07:33:00 Test Item Value Reference Range Interpretation Comments eGFR (test code = eGFR) 125 [facility]2016-07-11 07:33:00 Test Item Value Reference Range Interpretation Comments Potassium Lvl (test code = Potassium 3.9 3.5-5.1 Lvl) [facility]2016-07-11 07:33:00 Test Item Value Reference Range Interpretation Comments Chloride Lvl (test code = Chloride Lvl) 107 95-109 [facility]2016-07-11 07:33:00 Test Item Value Reference Range Interpretation Comments Creatinine Lvl (test code = Creatinine 0.61 0.50-1.40 Lvl) [facility]2016-07-11 07:33:00 Test Item Value Reference Range Interpretation Comments Sodium Lvl (test code = Sodium Lvl) 140 135-145 [facility]2016-07-11 07:33:00 Test Item Value Reference Range Interpretation Comments Calcium Lvl (test code = Calcium Lvl) 8.1 8.5-10.5 [facility]2016-07-11 07:33:00 Test Item Value Reference Range Interpretation Comments BUN (test code = BUN) 10 7-22 [facility]2016-07-11 07:33:00 Test Item Value Reference Range Interpretation Comments Glucose Lvl (test code = Glucose Lvl) 88 70-99 [facility]2016-07-11 07:33:00 Test Item Value Reference Range Interpretation Comments CO2 (test code = CO2) 23 24-32 [facility]2016-07-11 07:33:00 Test Item Value Reference Range Interpretation Comments AGAP (test code = AGAP) 13.9 10.0-20.0 [facility] HospitalPsobkxiLNXXZSMNUU6464-92-42 07:33:00 Test Item Value Reference Range Interpretation Comments Platelet (test code = Platelet) 419 133-450 [facility] HospitalRnqibrgXAZVIAGVYU7715-16-61 07:33:00 Test Item Value Reference Range Interpretation Comments MPV (test code = MPV) 8.3 7.4-10.4 [facility] HospitalGeuuvzpJQSSIGUFNI3656-38-54 07:33:00 Test Item Value Reference Range Interpretation Comments RDW (test code = RDW) 18.3 11.5-14.5 [facility] HospitalFmkodyqYXQLOVPWWE6566-80-09 07:33:00 Test Item Value Reference Range Interpretation Comments MCV (test code = MCV) 82.4 80.0-98.0 [facility] HospitalFqmeadoBTOPSKCBBM9609-90-60 07:33:00 Test Item Value Reference Range Interpretation Comments MCHC (test code = MCHC) 32.1 32.0-36.0 [facility] HospitalFbyysyzCGPDMMPGYJ3118-67-98 07:33:00 Test Item Value Reference Range Interpretation Comments MCH (test code = MCH) 26.4 pg 27.0-31.0 [facility] [facility]LG2065-14-59 07:33:00 Test Item Value Reference Range Interpretation Comments Hct (test code = Hct) 34.7 36.0-48.0 [facility] HospitalFosxjeeWVKBYOPHSP5763-95-64 07:33:00 Test Item Value Reference Range Interpretation Comments RBC X 10x6 (test code = RBC X 10x6) 4.21 4.20-5.40 [facility] HospitalXkwrrbbFDQPGZITWP7040-86-47 07:33:00 Test Item Value Reference Range Interpretation Comments Hgb (test code = Hgb) 11.1 12.0-16.0 [facility] HospitalSykftutXWKAJNPPZX8893-21-19 07:33:00 Test Item Value Reference Range Interpretation Comments WBC X 10x3 (test code = WBC X 10x3) 14.8 3.7-10.4 [facility] HospitalDkfqpynZRYOPRLUNW6640-28-23 07:33:00 Test Item Value Reference Range Interpretation Comments Lymphocytes # (test code = Lymphocytes 2.1 1.0-5.5 #) [facility] HospitalKdhjazfYSJWGDMRLN9862-43-32 07:33:00 Test Item Value Reference Range Interpretation Comments Monocytes # (test code 0.9 See_Comment [Aut omated message] The = Monocytes #) system which generated this result tra nsmitted reference range : <=0.8. The reference r bertha was not used to int erpret this result as normal/abnormal . [facility] HospitalIrrsvypHODSXZKQRV1954-59-61 07:33:00 Test Item Value Reference Range Interpretation Comments Segs-Bands # (test code = Segs-Bands #) 11.7 1.5-8.1 [facility] HospitalKwxflgkWKOBVDSTWP6818-04-84 07:33:00 Test Item Value Reference Range Interpretation Comments Eosinophils (test code = 0.3 See_Comment [A utomated message] The Eosinophils) system which ge nerated this result tra nsmitted reference range : <=4.0. The reference r bertha was not used to int erpret this result as normal/abnormal . [facility] HospitalEuvrzzcIFKAHVPXWG6976-42-41 07:33:00 Test Item Value Reference Range Interpretation Comments Lymphocytes (test code = Lymphocytes) 14.1 20.0-40.0 [facility] HospitalGmkpsxtYWHOAULCAM7078-99-00 07:33:00 Test Item Value Reference Range Interpretation Comments Basophils (test code = 0.3 See_Comment [Aut omated message] The Basophils) system which ge nerated this result tra nsmitted reference range : <=1.0. The reference r bertha was not used to int erpret this result as normal/abnormal . [facility] HospitalUnqdsimPSRZSGQOAY7464-54-71 07:33:00 Test Item Value Reference Range Interpretation Comments Monocytes (test code = Monocytes) 6.3 2.0-12.0 [facility] HospitalMtirmddOCKBLLUNNU7318-53-77 07:33:00 Test Item Value Reference Range Interpretation Comments Segs (test code = Segs) 79.0 45.0-75.0 [facility]2016-07-11 07:33:00 Test Item Value Reference Range Interpretation Comments eGFR (test code = eGFR) 125 [facility]2016-07-11 07:33:00 Test Item Value Reference Range Interpretation Comments Potassium Lvl (test code = Potassium 3.9 3.5-5.1 Lvl) [facility]2016-07-11 07:33:00 Test Item Value Reference Range Interpretation Comments Chloride Lvl (test code = Chloride Lvl) 107 95-109 [facility]2016-07-11 07:33:00 Test Item Value Reference Range Interpretation Comments Creatinine Lvl (test code = Creatinine 0.61 0.50-1.40 Lvl) [facility]2016-07-11 07:33:00 Test Item Value Reference Range Interpretation Comments Sodium Lvl (test code = Sodium Lvl) 140 135-145 [facility]2016-07-11 07:33:00 Test Item Value Reference Range Interpretation Comments Calcium Lvl (test code = Calcium Lvl) 8.1 8.5-10.5 [facility]2016-07-11 07:33:00 Test Item Value Reference Range Interpretation Comments BUN (test code = BUN) 10 7-22 [facility]2016-07-11 07:33:00 Test Item Value Reference Range Interpretation Comments Glucose Lvl (test code = Glucose Lvl) 88 70-99 [facility]2016-07-11 07:33:00 Test Item Value Reference Range Interpretation Comments CO2 (test code = CO2) 23 24-32 [facility]2016-07-11 07:33:00 Test Item Value Reference Range Interpretation Comments AGAP (test code = AGAP) 13.9 10.0-20.0 [facility] HospitalCazowslCQBPIPLTBS7648-85-07 07:33:00 Test Item Value Reference Range Interpretation Comments Platelet (test code = Platelet) 419 133-450 [facility] HospitalYmrglkxGUBOGYWDYW2270-27-65 07:33:00 Test Item Value Reference Range Interpretation Comments MPV (test code = MPV) 8.3 7.4-10.4 [facility] HospitalUqhtafaLADKDKZZHZ8290-35-27 07:33:00 Test Item Value Reference Range Interpretation Comments RDW (test code = RDW) 18.3 11.5-14.5 [facility] HospitalOezvhqbFUHQACOFTG1320-72-48 07:33:00 Test Item Value Reference Range Interpretation Comments MCV (test code = MCV) 82.4 80.0-98.0 [facility] HospitalCdccwicSZSYSBXRBV9152-29-78 07:33:00 Test Item Value Reference Range Interpretation Comments MCHC (test code = MCHC) 32.1 32.0-36.0 [facility] HospitalPumepcqNXVSFUNTRV4500-91-13 07:33:00 Test Item Value Reference Range Interpretation Comments MCH (test code = MCH) 26.4 pg 27.0-31.0 [facility] HospitalSqbgijeHEQXKLWFUM3790-84-74 07:33:00 Test Item Value Reference Range Interpretation Comments Hct (test code = Hct) 34.7 36.0-48.0 [facility] HospitalWaqliarCTGDMYMZMB3275-00-79 07:33:00 Test Item Value Reference Range Interpretation Comments RBC X 10x6 (test code = RBC X 10x6) 4.21 4.20-5.40 [facility] HospitalQnqutpyLTKRFHADHJ8199-81-00 07:33:00 Test Item Value Reference Range Interpretation Comments Hgb (test code = Hgb) 11.1 12.0-16.0 [facility] HospitalSaisolpMJUDKTDFCS4253-79-80 07:33:00 Test Item Value Reference Range Interpretation Comments WBC X 10x3 (test code = WBC X 10x3) 14.8 3.7-10.4 [facility] HospitalJhwylbhPXGHTVWWZV9013-69-82 07:33:00 Test Item Value Reference Range Interpretation Comments Lymphocytes # (test code = Lymphocytes 2.1 1.0-5.5 #) [facility] HospitalPtkjixdQLLOHKTAUU0528-82-17 07:33:00 Test Item Value Reference Range Interpretation Comments Monocytes # (test code 0.9 See_Comment [Aut omated message] The = Monocytes #) system which generated this result tra nsmitted reference range : <=0.8. The reference r bertha was not used to int erpret this result as normal/abnormal . [facility] HospitalZqfsqquDRIVOYNETG5995-05-96 07:33:00 Test Item Value Reference Range Interpretation Comments Segs-Bands # (test code = Segs-Bands #) 11.7 1.5-8.1 [facility] HospitalGugkjstTGDSZPFUKW9532-40-12 07:33:00 Test Item Value Reference Range Interpretation Comments Eosinophils (test code = 0.3 See_Comment [A utomated message] The Eosinophils) system which ge nerated this result tra nsmitted reference range : <=4.0. The reference r bertha was not used to int erpret this result as normal/abnormal . [facility] HospitalQnkfpqsTISVVSEFBP0473-91-70 07:33:00 Test Item Value Reference Range Interpretation Comments Lymphocytes (test code = Lymphocytes) 14.1 20.0-40.0 [facility] HospitalJylgjoyMFAXYLQXYQ4912-89-26 07:33:00 Test Item Value Reference Range Interpretation Comments Basophils (test code = 0.3 See_Comment [Aut omated message] The Basophils) system which ge nerated this result tra nsmitted reference range : <=1.0. The reference r bertha was not used to int erpret this result as normal/abnormal . [facility] HospitalMvvcnioYWONEYENEJ0763-80-59 07:33:00 Test Item Value Reference Range Interpretation Comments Monocytes (test code = Monocytes) 6.3 2.0-12.0 [facility] HospitalPtljtxnJAEVPXILYD3556-69-71 07:33:00 Test Item Value Reference Range Interpretation Comments Segs (test code = Segs) 79.0 45.0-75.0 [facility]2016-07-11 07:33:00 Test Item Value Reference Range Interpretation Comments eGFR (test code = eGFR) 125 [facility]2016-07-11 07:33:00 Test Item Value Reference Range Interpretation Comments Potassium Lvl (test code = Potassium 3.9 3.5-5.1 Lvl) [facility]2016-07-11 07:33:00 Test Item Value Reference Range Interpretation Comments Chloride Lvl (test code = Chloride Lvl) 107 95-109 [facility]2016-07-11 07:33:00 Test Item Value Reference Range Interpretation Comments Creatinine Lvl (test code = Creatinine 0.61 0.50-1.40 Lvl) [facility]2016-07-11 07:33:00 Test Item Value Reference Range Interpretation Comments Sodium Lvl (test code = Sodium Lvl) 140 135-145 [facility]2016-07-11 07:33:00 Test Item Value Reference Range Interpretation Comments Calcium Lvl (test code = Calcium Lvl) 8.1 8.5-10.5 [facility]2016-07-11 07:33:00 Test Item Value Reference Range Interpretation Comments BUN (test code = BUN) 10 7-22 [facility]2016-07-11 07:33:00 Test Item Value Reference Range Interpretation Comments Glucose Lvl (test code = Glucose Lvl) 88 70-99 [facility]2016-07-11 07:33:00 Test Item Value Reference Range Interpretation Comments CO2 (test code = CO2) 23 24-32 [facility]2016-07-11 07:33:00 Test Item Value Reference Range Interpretation Comments AGAP (test code = AGAP) 13.9 10.0-20.0 [facility] HospitalUmpblmfVYCMEHKJHK3811-51-21 07:33:00 Test Item Value Reference Range Interpretation Comments Platelet (test code = Platelet) 419 133-450 [facility] HospitalXctwzayAPPIYVCQYJ6835-86-16 07:33:00 Test Item Value Reference Range Interpretation Comments MPV (test code = MPV) 8.3 7.4-10.4 [facility] HospitalMcuthpaINVZGAPJLE6817-52-17 07:33:00 Test Item Value Reference Range Interpretation Comments RDW (test code = RDW) 18.3 11.5-14.5 [facility] HospitalMwlewqkXEUYCEOPSF8912-14-83 07:33:00 Test Item Value Reference Range Interpretation Comments MCV (test code = MCV) 82.4 80.0-98.0 [facility] HospitalLensofdEAITVQAVYP7331-82-14 07:33:00 Test Item Value Reference Range Interpretation Comments MCHC (test code = MCHC) 32.1 32.0-36.0 [facility] HospitalFoswkzzWDMOUDNNZR4226-71-55 07:33:00 Test Item Value Reference Range Interpretation Comments MCH (test code = MCH) 26.4 pg 27.0-31.0 [facility] HospitalZtllgtbZRKHHFGKBC2908-10-78 07:33:00 Test Item Value Reference Range Interpretation Comments Hct (test code = Hct) 34.7 36.0-48.0 [facility] HospitalBbsgmvlTAPMBFSKCL7353-07-18 07:33:00 Test Item Value Reference Range Interpretation Comments RBC X 10x6 (test code = RBC X 10x6) 4.21 4.20-5.40 [facility] HospitalZawuopkMLREKZPLTI6887-63-57 07:33:00 Test Item Value Reference Range Interpretation Comments Hgb (test code = Hgb) 11.1 12.0-16.0 [facility] HospitalPiujsuvIXKJEIOKOY4981-18-33 07:33:00 Test Item Value Reference Range Interpretation Comments WBC X 10x3 (test code = WBC X 10x3) 14.8 3.7-10.4 [facility] HospitalNujyzuuQGARLPDEXX8865-70-88 07:33:00 Test Item Value Reference Range Interpretation Comments Lymphocytes # (test code = Lymphocytes 2.1 1.0-5.5 #) [facility] HospitalAcfzdroTWXVUIIPYV1786-24-12 07:33:00 Test Item Value Reference Range Interpretation Comments Monocytes # (test code 0.9 See_Comment [Aut omated message] The = Monocytes #) system which generated this result tra nsmitted reference range : <=0.8. The reference r bertha was not used to int erpret this result as normal/abnormal . [facility] HospitalYogsylgPUQRQIFKJV9571-71-88 07:33:00 Test Item Value Reference Range Interpretation Comments Segs-Bands # (test code = Segs-Bands #) 11.7 1.5-8.1 [facility] HospitalGhzzzrkVMGRKABPPR8202-96-39 07:33:00 Test Item Value Reference Range Interpretation Comments Eosinophils (test code = 0.3 See_Comment [A utomated message] The Eosinophils) system which ge nerated this result tra nsmitted reference range : <=4.0. The reference r bertha was not used to int erpret this result as normal/abnormal . [facility] HospitalWriqoxxDOCUKOEYAL2798-37-67 07:33:00 Test Item Value Reference Range Interpretation Comments Lymphocytes (test code = Lymphocytes) 14.1 20.0-40.0 [facility] HospitalDzklhxdZXAZGFRHYO5051-91-52 07:33:00 Test Item Value Reference Range Interpretation Comments Basophils (test code = 0.3 See_Comment [Aut omated message] The Basophils) system which ge nerated this result tra nsmitted reference range : <=1.0. The reference r bertha was not used to int erpret this result as normal/abnormal . [facility] HospitalLukdxeaRBPSPHSZLH8924-65-80 07:33:00 Test Item Value Reference Range Interpretation Comments Monocytes (test code = Monocytes) 6.3 2.0-12.0 [facility] HospitalUyhplavORSFFLMWSO0386-86-98 07:33:00 Test Item Value Reference Range Interpretation Comments Segs (test code = Segs) 79.0 45.0-75.0 [facility]2016-07-11 07:33:00 Test Item Value Reference Range Interpretation Comments eGFR (test code = eGFR) 125 [facility]2016-07-11 07:33:00 Test Item Value Reference Range Interpretation Comments Potassium Lvl (test code = Potassium 3.9 3.5-5.1 Lvl) [facility]2016-07-11 07:33:00 Test Item Value Reference Range Interpretation Comments Chloride Lvl (test code = Chloride Lvl) 107 95-109 [facility]2016-07-11 07:33:00 Test Item Value Reference Range Interpretation Comments Creatinine Lvl (test code = Creatinine 0.61 0.50-1.40 Lvl) [facility]2016-07-11 07:33:00 Test Item Value Reference Range Interpretation Comments Sodium Lvl (test code = Sodium Lvl) 140 135-145 [facility]2016-07-11 07:33:00 Test Item Value Reference Range Interpretation Comments Calcium Lvl (test code = Calcium Lvl) 8.1 8.5-10.5 [facility]2016-07-11 07:33:00 Test Item Value Reference Range Interpretation Comments BUN (test code = BUN) 10 7-22 [facility]2016-07-11 07:33:00 Test Item Value Reference Range Interpretation Comments Glucose Lvl (test code = Glucose Lvl) 88 70-99 [facility]2016-07-11 07:33:00 Test Item Value Reference Range Interpretation Comments CO2 (test code = CO2) 23 24-32 [facility]2016-07-11 07:33:00 Test Item Value Reference Range Interpretation Comments AGAP (test code = AGAP) 13.9 10.0-20.0 [facility] HospitalDigiqwaKLQGJRPQCT9623-52-28 07:33:00 Test Item Value Reference Range Interpretation Comments Platelet (test code = Platelet) 419 133-450 [facility] HospitalWvahgaeUCTIRMWQXF4350-52-12 07:33:00 Test Item Value Reference Range Interpretation Comments MPV (test code = MPV) 8.3 7.4-10.4 [facility] HospitalIjnndueRNGSLMBUIN2698-24-22 07:33:00 Test Item Value Reference Range Interpretation Comments RDW (test code = RDW) 18.3 11.5-14.5 [facility] HospitalMhmwtxfJUJBFWSCPB1662-03-02 07:33:00 Test Item Value Reference Range Interpretation Comments MCV (test code = MCV) 82.4 80.0-98.0 [facility] HospitalTgufpdbDNGLJJRXQT0030-19-10 07:33:00 Test Item Value Reference Range Interpretation Comments MCHC (test code = MCHC) 32.1 32.0-36.0 [facility] HospitalZgbwdikGNYSUFTOPZ4156-77-80 07:33:00 Test Item Value Reference Range Interpretation Comments MCH (test code = MCH) 26.4 pg 27.0-31.0 [facility] HospitalUcgpuetREDUTTEDDY1146-53-25 07:33:00 Test Item Value Reference Range Interpretation Comments Hct (test code = Hct) 34.7 36.0-48.0 [facility] HospitalHgvqcqqMWHEEGIZVU5195-09-22 07:33:00 Test Item Value Reference Range Interpretation Comments RBC X 10x6 (test code = RBC X 10x6) 4.21 4.20-5.40 [facility] HospitalIfwpgtpRSMOPSWPNH2060-39-92 07:33:00 Test Item Value Reference Range Interpretation Comments Hgb (test code = Hgb) 11.1 12.0-16.0 [facility] HospitalEvzbbfxXCSKTXUHSU8047-17-62 07:33:00 Test Item Value Reference Range Interpretation Comments WBC X 10x3 (test code = WBC X 10x3) 14.8 3.7-10.4 [facility] HospitalGezljehXNVMDDAZJY0505-72-68 07:33:00 Test Item Value Reference Range Interpretation Comments Lymphocytes # (test code = Lymphocytes 2.1 1.0-5.5 #) [facility] HospitalItpkaakFZRPGKQTRM3523-35-95 07:33:00 Test Item Value Reference Range Interpretation Comments Monocytes # (test code 0.9 See_Comment [Aut omated message] The = Monocytes #) system which generated this result tra nsmitted reference range : <=0.8. The reference r bertha was not used to int erpret this result as normal/abnormal . [facility] HospitalNbvoahyDKIDPIGYIO5053-05-29 07:33:00 Test Item Value Reference Range Interpretation Comments Segs-Bands # (test code = Segs-Bands #) 11.7 1.5-8.1 [facility] HospitalFbltxszHOMWCRODDE0463-33-31 07:33:00 Test Item Value Reference Range Interpretation Comments Eosinophils (test code = 0.3 See_Comment [A utomated message] The Eosinophils) system which ge nerated this result tra nsmitted reference range : <=4.0. The reference r bertha was not used to int erpret this result as normal/abnormal . [facility] HospitalThzhjnwORCAHVAYJW1570-99-45 07:33:00 Test Item Value Reference Range Interpretation Comments Lymphocytes (test code = Lymphocytes) 14.1 20.0-40.0 [facility] HospitalOnykgmjKUAMYNUCYX6757-89-91 07:33:00 Test Item Value Reference Range Interpretation Comments Basophils (test code = 0.3 See_Comment [Aut omated message] The Basophils) system which ge nerated this result tra nsmitted reference range : <=1.0. The reference r bertha was not used to int erpret this result as normal/abnormal . [facility] HospitalIzclpoyTNNBVXYZMF9743-51-13 07:33:00 Test Item Value Reference Range Interpretation Comments Monocytes (test code = Monocytes) 6.3 2.0-12.0 [facility] HospitalZsagxfpSIFKEKVWZD0294-96-92 07:33:00 Test Item Value Reference Range Interpretation Comments Segs (test code = Segs) 79.0 45.0-75.0 [facility]2016-07-11 07:33:00 Test Item Value Reference Range Interpretation Comments eGFR (test code = eGFR) 125 [facility]2016-07-11 07:33:00 Test Item Value Reference Range Interpretation Comments Potassium Lvl (test code = Potassium 3.9 3.5-5.1 Lvl) [facility]2016-07-11 07:33:00 Test Item Value Reference Range Interpretation Comments Chloride Lvl (test code = Chloride Lvl) 107 95-109 [facility]2016-07-11 07:33:00 Test Item Value Reference Range Interpretation Comments Creatinine Lvl (test code = Creatinine 0.61 0.50-1.40 Lvl) [facility]2016-07-11 07:33:00 Test Item Value Reference Range Interpretation Comments Sodium Lvl (test code = Sodium Lvl) 140 135-145 [facility]2016-07-11 07:33:00 Test Item Value Reference Range Interpretation Comments Calcium Lvl (test code = Calcium Lvl) 8.1 8.5-10.5 [facility]2016-07-11 07:33:00 Test Item Value Reference Range Interpretation Comments BUN (test code = BUN) 10 7-22 [facility]2016-07-11 07:33:00 Test Item Value Reference Range Interpretation Comments Glucose Lvl (test code = Glucose Lvl) 88 70-99 [facility]2016-07-11 07:33:00 Test Item Value Reference Range Interpretation Comments CO2 (test code = CO2) 23 24-32 [facility]2016-07-11 07:33:00 Test Item Value Reference Range Interpretation Comments AGAP (test code = AGAP) 13.9 10.0-20.0 [facility] HospitalBlfnsbeRNYHYCHVWY4925-23-96 07:33:00 Test Item Value Reference Range Interpretation Comments Platelet (test code = Platelet) 419 133-450 [facility] HospitalZcvvrzuEUUNIJVNTO7645-81-74 07:33:00 Test Item Value Reference Range Interpretation Comments MPV (test code = MPV) 8.3 7.4-10.4 [facility] HospitalDshbvyrAWWZPAPQBZ7794-07-61 07:33:00 Test Item Value Reference Range Interpretation Comments RDW (test code = RDW) 18.3 11.5-14.5 [facility] HospitalIsmjuhwLTNOTCCCHZ0321-07-34 07:33:00 Test Item Value Reference Range Interpretation Comments MCV (test code = MCV) 82.4 80.0-98.0 [facility] HospitalLpctbhgNEMNMYKOZH5441-01-72 07:33:00 Test Item Value Reference Range Interpretation Comments MCHC (test code = MCHC) 32.1 32.0-36.0 [facility] HospitalQcoxawiVOAYCSUMRW9470-29-04 07:33:00 Test Item Value Reference Range Interpretation Comments MCH (test code = MCH) 26.4 pg 27.0-31.0 [facility] HospitalZwknsdjPKOEEOAPWN2728-01-16 07:33:00 Test Item Value Reference Range Interpretation Comments Hct (test code = Hct) 34.7 36.0-48.0 [facility] HospitalFwevwqnGZMRFPFNNC8894-77-87 07:33:00 Test Item Value Reference Range Interpretation Comments RBC X 10x6 (test code = RBC X 10x6) 4.21 4.20-5.40 [facility] HospitalJssbasmPDXWHZUIYI5101-36-61 07:33:00 Test Item Value Reference Range Interpretation Comments Hgb (test code = Hgb) 11.1 12.0-16.0 [facility] HospitalLwamcfuNMDUNQCJZP3586-27-56 07:33:00 Test Item Value Reference Range Interpretation Comments WBC X 10x3 (test code = WBC X 10x3) 14.8 3.7-10.4 [facility] HospitalJgeofmgCYCOIZMJZL5376-83-95 07:33:00 Test Item Value Reference Range Interpretation Comments Lymphocytes # (test code = Lymphocytes 2.1 1.0-5.5 #) [facility] HospitalCjxeruqHZQDJZLZRL6948-93-78 07:33:00 Test Item Value Reference Range Interpretation Comments Monocytes # (test code 0.9 See_Comment [Aut omated message] The = Monocytes #) system which generated this result tra nsmitted reference range : <=0.8. The reference r bertha was not used to int erpret this result as normal/abnormal . [facility] HospitalBqnlwwgIJMMJTQXXZ0656-76-79 07:33:00 Test Item Value Reference Range Interpretation Comments Segs-Bands # (test code = Segs-Bands #) 11.7 1.5-8.1 [facility] HospitalFthtqlcGDNCKCCCCP0345-46-80 07:33:00 Test Item Value Reference Range Interpretation Comments Eosinophils (test code = 0.3 See_Comment [A utomated message] The Eosinophils) system which ge nerated this result tra nsmitted reference range : <=4.0. The reference r bertha was not used to int erpret this result as normal/abnormal . [facility] HospitalTtrggrnTMGOOVFYLJ6861-72-64 07:33:00 Test Item Value Reference Range Interpretation Comments Lymphocytes (test code = Lymphocytes) 14.1 20.0-40.0 [facility] HospitalScpuylpMZXGLHHJRI7066-01-96 07:33:00 Test Item Value Reference Range Interpretation Comments Basophils (test code = 0.3 See_Comment [Aut omated message] The Basophils) system which ge nerated this result tra nsmitted reference range : <=1.0. The reference r bertha was not used to int erpret this result as normal/abnormal . [facility] HospitalZworoahMBOWYWVVEI5880-46-42 07:33:00 Test Item Value Reference Range Interpretation Comments Monocytes (test code = Monocytes) 6.3 2.0-12.0 [facility] HospitalNfbczqzJPEOOTMLDQ0419-66-11 07:33:00 Test Item Value Reference Range Interpretation Comments Segs (test code = Segs) 79.0 45.0-75.0 [facility]2016-07-11 07:33:00 Test Item Value Reference Range Interpretation Comments eGFR (test code = eGFR) 125 [facility]2016-07-11 07:33:00 Test Item Value Reference Range Interpretation Comments Potassium Lvl (test code = Potassium 3.9 3.5-5.1 Lvl) [facility]2016-07-11 07:33:00 Test Item Value Reference Range Interpretation Comments Chloride Lvl (test code = Chloride Lvl) 107 95-109 [facility]2016-07-11 07:33:00 Test Item Value Reference Range Interpretation Comments Creatinine Lvl (test code = Creatinine 0.61 0.50-1.40 Lvl) [facility]2016-07-11 07:33:00 Test Item Value Reference Range Interpretation Comments Sodium Lvl (test code = Sodium Lvl) 140 135-145 [facility]2016-07-11 07:33:00 Test Item Value Reference Range Interpretation Comments Calcium Lvl (test code = Calcium Lvl) 8.1 8.5-10.5 [facility]2016-07-11 07:33:00 Test Item Value Reference Range Interpretation Comments BUN (test code = BUN) 10 7-22 [facility]2016-07-11 07:33:00 Test Item Value Reference Range Interpretation Comments Glucose Lvl (test code = Glucose Lvl) 88 70-99 [facility]2016-07-11 07:33:00 Test Item Value Reference Range Interpretation Comments CO2 (test code = CO2) 23 24-32 [facility]2016-07-11 07:33:00 Test Item Value Reference Range Interpretation Comments AGAP (test code = AGAP) 13.9 10.0-20.0 [facility] HospitalApjqlzxZQYGWOIQFS5861-44-86 07:33:00 Test Item Value Reference Range Interpretation Comments Platelet (test code = Platelet) 419 133-450 [facility] HospitalIlkzgoaGPNGKMDXGO3333-50-14 07:33:00 Test Item Value Reference Range Interpretation Comments MPV (test code = MPV) 8.3 7.4-10.4 [facility] HospitalFltcmpwYIBVFFDRXE6997-76-33 07:33:00 Test Item Value Reference Range Interpretation Comments RDW (test code = RDW) 18.3 11.5-14.5 [facility] HospitalEovxiqjINAUQXNLZY2850-91-72 07:33:00 Test Item Value Reference Range Interpretation Comments MCV (test code = MCV) 82.4 80.0-98.0 [facility] HospitalYkrlpnvLUCOVFUGGT1608-02-41 07:33:00 Test Item Value Reference Range Interpretation Comments MCHC (test code = MCHC) 32.1 32.0-36.0 [facility] HospitalIrbrwasZWZUDNNSPP5469-43-51 07:33:00 Test Item Value Reference Range Interpretation Comments MCH (test code = MCH) 26.4 pg 27.0-31.0 [facility] HospitalOwyfiktVHMAASVLSC6322-00-40 07:33:00 Test Item Value Reference Range Interpretation Comments Hct (test code = Hct) 34.7 36.0-48.0 [facility] HospitalYgcstvkMNWGWCASDJ2501-97-92 07:33:00 Test Item Value Reference Range Interpretation Comments RBC X 10x6 (test code = RBC X 10x6) 4.21 4.20-5.40 [facility] HospitalEhphklvBJKETQYFFF5630-67-72 07:33:00 Test Item Value Reference Range Interpretation Comments Hgb (test code = Hgb) 11.1 12.0-16.0 [facility] HospitalLstcusnAHKCBVBBBP7419-34-42 07:33:00 Test Item Value Reference Range Interpretation Comments WBC X 10x3 (test code = WBC X 10x3) 14.8 3.7-10.4 [facility] HospitalSzbexkhZJNZPPWXCJ5401-86-44 07:33:00 Test Item Value Reference Range Interpretation Comments Lymphocytes # (test code = Lymphocytes 2.1 1.0-5.5 #) [facility] HospitalVghsratWRJNCNHZUW9875-21-72 07:33:00 Test Item Value Reference Range Interpretation Comments Monocytes # (test code 0.9 See_Comment [Aut omated message] The = Monocytes #) system which generated this result tra nsmitted reference range : <=0.8. The reference r bertha was not used to int erpret this result as normal/abnormal . [facility] HospitalVgnhpyaEEGVEMWRYY5130-38-29 07:33:00 Test Item Value Reference Range Interpretation Comments Segs-Bands # (test code = Segs-Bands #) 11.7 1.5-8.1 [facility] HospitalUhfjkjnJUWXGVXLTC9345-82-78 07:33:00 Test Item Value Reference Range Interpretation Comments Eosinophils (test code = 0.3 See_Comment [A utomated message] The Eosinophils) system which ge nerated this result tra nsmitted reference range : <=4.0. The reference r bertha was not used to int erpret this result as normal/abnormal . [facility] HospitalLarltsfFPXTJFJKOP5144-62-63 07:33:00 Test Item Value Reference Range Interpretation Comments Lymphocytes (test code = Lymphocytes) 14.1 20.0-40.0 [facility] HospitalJugeuhrRZGBMOCDSA4019-31-90 07:33:00 Test Item Value Reference Range Interpretation Comments Basophils (test code = 0.3 See_Comment [Aut omated message] The Basophils) system which ge nerated this result tra nsmitted reference range : <=1.0. The reference r bertha was not used to int erpret this result as normal/abnormal . [facility] HospitalVgttryaDORLSEBGGS0078-90-09 07:33:00 Test Item Value Reference Range Interpretation Comments Monocytes (test code = Monocytes) 6.3 2.0-12.0 [facility] HospitalApdylofRPNJKUKXGE7694-25-00 07:33:00 Test Item Value Reference Range Interpretation Comments Segs (test code = Segs) 79.0 45.0-75.0 [facility]2016-07-11 07:33:00 Test Item Value Reference Range Interpretation Comments eGFR (test code = eGFR) 125 [facility]2016-07-11 07:33:00 Test Item Value Reference Range Interpretation Comments Potassium Lvl (test code = Potassium 3.9 3.5-5.1 Lvl) [facility]2016-07-11 07:33:00 Test Item Value Reference Range Interpretation Comments Chloride Lvl (test code = Chloride Lvl) 107 95-109 [facility]2016-07-11 07:33:00 Test Item Value Reference Range Interpretation Comments Creatinine Lvl (test code = Creatinine 0.61 0.50-1.40 Lvl) [facility]2016-07-11 07:33:00 Test Item Value Reference Range Interpretation Comments Sodium Lvl (test code = Sodium Lvl) 140 135-145 [facility]2016-07-11 07:33:00 Test Item Value Reference Range Interpretation Comments Calcium Lvl (test code = Calcium Lvl) 8.1 8.5-10.5 [facility]2016-07-11 07:33:00 Test Item Value Reference Range Interpretation Comments BUN (test code = BUN) 10 7-22 [facility]2016-07-11 07:33:00 Test Item Value Reference Range Interpretation Comments Glucose Lvl (test code = Glucose Lvl) 88 70-99 [facility]2016-07-11 07:33:00 Test Item Value Reference Range Interpretation Comments CO2 (test code = CO2) 23 24-32 [facility]2016-07-11 07:33:00 Test Item Value Reference Range Interpretation Comments AGAP (test code = AGAP) 13.9 10.0-20.0 [facility] HospitalAuvsxywAAPUWCKXXW7039-28-98 07:33:00 Test Item Value Reference Range Interpretation Comments Platelet (test code = Platelet) 419 133-450 [facility] HospitalNmhiocoIOGDPKPOKI4859-22-63 07:33:00 Test Item Value Reference Range Interpretation Comments MPV (test code = MPV) 8.3 7.4-10.4 [facility] HospitalAcbloheHHSPREVOBL2795-28-41 07:33:00 Test Item Value Reference Range Interpretation Comments RDW (test code = RDW) 18.3 11.5-14.5 [facility] HospitalAxehnusKCKQMXVJBF5008-48-81 07:33:00 Test Item Value Reference Range Interpretation Comments MCV (test code = MCV) 82.4 80.0-98.0 [facility] HospitalEkdyepcPZJJUUGXOT6324-26-38 07:33:00 Test Item Value Reference Range Interpretation Comments MCHC (test code = MCHC) 32.1 32.0-36.0 [facility] HospitalUyherdoKSADJOYGUO4170-58-10 07:33:00 Test Item Value Reference Range Interpretation Comments MCH (test code = MCH) 26.4 pg 27.0-31.0 [facility] HospitalMkyqaugEVOQTGTKVO7790-15-81 07:33:00 Test Item Value Reference Range Interpretation Comments Hct (test code = Hct) 34.7 36.0-48.0 [facility] HospitalTkcfnxhCJBJFOOGBL0262-60-54 07:33:00 Test Item Value Reference Range Interpretation Comments RBC X 10x6 (test code = RBC X 10x6) 4.21 4.20-5.40 [facility] HospitalQjytbscJNWKRQVQFW5355-60-55 07:33:00 Test Item Value Reference Range Interpretation Comments Hgb (test code = Hgb) 11.1 12.0-16.0 [facility] HospitalEhpcfddVVXCGVHDYD4968-28-98 07:33:00 Test Item Value Reference Range Interpretation Comments WBC X 10x3 (test code = WBC X 10x3) 14.8 3.7-10.4 [facility] HospitalZrmvtqeRNRUFRKGFJ8622-18-49 07:33:00 Test Item Value Reference Range Interpretation Comments Lymphocytes # (test code = Lymphocytes 2.1 1.0-5.5 #) [facility] HospitalQxlxsozVEOGDCYBBD9180-87-94 07:33:00 Test Item Value Reference Range Interpretation Comments Monocytes # (test code 0.9 See_Comment [Aut omated message] The = Monocytes #) system which generated this result tra nsmitted reference range : <=0.8. The reference r bertha was not used to int erpret this result as normal/abnormal . [facility] HospitalPcjvmwcSNEGWUFYPA3632-59-87 07:33:00 Test Item Value Reference Range Interpretation Comments Segs-Bands # (test code = Segs-Bands #) 11.7 1.5-8.1 [facility] HospitalElvnljbEEBIIMOGDL7272-12-99 07:33:00 Test Item Value Reference Range Interpretation Comments Eosinophils (test code = 0.3 See_Comment [A utomated message] The Eosinophils) system which ge nerated this result tra nsmitted reference range : <=4.0. The reference r bertha was not used to int erpret this result as normal/abnormal . [facility] HospitalTqifagiKJFDWJFGTI4665-18-73 07:33:00 Test Item Value Reference Range Interpretation Comments Lymphocytes (test code = Lymphocytes) 14.1 20.0-40.0 [facility] HospitalTpdjybqTBNUTLIDZR2246-07-70 07:33:00 Test Item Value Reference Range Interpretation Comments Basophils (test code = 0.3 See_Comment [Aut omated message] The Basophils) system which ge nerated this result tra nsmitted reference range : <=1.0. The reference r bertha was not used to int erpret this result as normal/abnormal . [facility] HospitalJmfgqojGBPGAKNPQF6575-16-35 07:33:00 Test Item Value Reference Range Interpretation Comments Monocytes (test code = Monocytes) 6.3 2.0-12.0 [facility] HospitalEeaysnuRIBNDDLLSP1368-69-15 07:33:00 Test Item Value Reference Range Interpretation Comments Segs (test code = Segs) 79.0 45.0-75.0 [facility]2016-07-11 07:33:00 Test Item Value Reference Range Interpretation Comments eGFR (test code = eGFR) 125 [facility]2016-07-11 07:33:00 Test Item Value Reference Range Interpretation Comments Potassium Lvl (test code = Potassium 3.9 3.5-5.1 Lvl) [facility]2016-07-11 07:33:00 Test Item Value Reference Range Interpretation Comments Chloride Lvl (test code = Chloride Lvl) 107 95-109 [facility]2016-07-11 07:33:00 Test Item Value Reference Range Interpretation Comments Creatinine Lvl (test code = Creatinine 0.61 0.50-1.40 Lvl) [facility]2016-07-11 07:33:00 Test Item Value Reference Range Interpretation Comments Sodium Lvl (test code = Sodium Lvl) 140 135-145 [facility]2016-07-11 07:33:00 Test Item Value Reference Range Interpretation Comments Calcium Lvl (test code = Calcium Lvl) 8.1 8.5-10.5 [facility]2016-07-11 07:33:00 Test Item Value Reference Range Interpretation Comments BUN (test code = BUN) 10 7-22 [facility]2016-07-11 07:33:00 Test Item Value Reference Range Interpretation Comments Glucose Lvl (test code = Glucose Lvl) 88 70-99 [facility]2016-07-11 07:33:00 Test Item Value Reference Range Interpretation Comments CO2 (test code = CO2) 23 24-32 [facility]2016-07-11 07:33:00 Test Item Value Reference Range Interpretation Comments AGAP (test code = AGAP) 13.9 10.0-20.0 [facility] HospitalYczbtzbJZGDWKZYFW7041-95-49 07:33:00 Test Item Value Reference Range Interpretation Comments Platelet (test code = Platelet) 419 133450 [facility] HospitalYcobtasEIBWFVIOUC8824-59-41 07:33:00 Test Item Value Reference Range Interpretation Comments MPV (test code = MPV) 8.3 7.4-10.4 [facility] HospitalVbalofdOSGPINIUGX4571-54-60 07:33:00 Test Item Value Reference Range Interpretation Comments RDW (test code = RDW) 18.3 11.5-14.5 [facility] HospitalYrfxrweDWKQSQPQSW9104-21-12 07:33:00 Test Item Value Reference Range Interpretation Comments MCV (test code = MCV) 82.4 80.0-98.0 [facility] HospitalQjgqpvpXMXTPQPLKY3486-76-06 07:33:00 Test Item Value Reference Range Interpretation Comments MCHC (test code = MCHC) 32.1 32.0-36.0 [facility] HospitalOeanjsbZREIERNUDG9999-53-95 07:33:00 Test Item Value Reference Range Interpretation Comments MCH (test code = MCH) 26.4 pg 27.0-31.0 [facility] HospitalDwtokvcPSZTPJYNPR2850-39-01 07:33:00 Test Item Value Reference Range Interpretation Comments Hct (test code = Hct) 34.7 36.0-48.0 [facility] HospitalJepsqluOCCEMLKQPX3883-21-07 07:33:00 Test Item Value Reference Range Interpretation Comments RBC X 10x6 (test code = RBC X 10x6) 4.21 4.20-5.40 [facility] HospitalVysufdyMKQRNNVUZI9694-10-30 07:33:00 Test Item Value Reference Range Interpretation Comments Hgb (test code = Hgb) 11.1 12.0-16.0 [facility] HospitalGljramaLGOFWUBIQA2178-25-91 07:33:00 Test Item Value Reference Range Interpretation Comments WBC X 10x3 (test code = WBC X 10x3) 14.8 3.7-10.4 [facility] HospitalPbcrezzTGUOBWREDF4911-66-70 07:33:00 Test Item Value Reference Range Interpretation Comments Lymphocytes # (test code = Lymphocytes 2.1 1.0-5.5 #) [facility] HospitalGcagfvdJCXNTNRARH7750-69-65 07:33:00 Test Item Value Reference Range Interpretation Comments Monocytes # (test code 0.9 See_Comment [Aut omated message] The = Monocytes #) system which generated this result tra nsmitted reference range : <=0.8. The reference r bertha was not used to int erpret this result as normal/abnormal . [facility] HospitalTirumkjCRODXMDPKB3581-30-74 07:33:00 Test Item Value Reference Range Interpretation Comments Segs-Bands # (test code = Segs-Bands #) 11.7 1.5-8.1 [facility] HospitalEyjfxskNWEDBYTTOQ9712-74-61 07:33:00 Test Item Value Reference Range Interpretation Comments Eosinophils (test code = 0.3 See_Comment [A utomated message] The Eosinophils) system which ge nerated this result tra nsmitted reference range : <=4.0. The reference r bertha was not used to int erpret this result as normal/abnormal . [facility] HospitalWlhffwtDZPJOHARTW1819-62-62 07:33:00 Test Item Value Reference Range Interpretation Comments Lymphocytes (test code = Lymphocytes) 14.1 20.0-40.0 [facility] HospitalYoksbevFITQUFUSYE7157-90-03 07:33:00 Test Item Value Reference Range Interpretation Comments Basophils (test code = 0.3 See_Comment [Aut omated message] The Basophils) system which ge nerated this result tra nsmitted reference range : <=1.0. The reference r bertha was not used to int erpret this result as normal/abnormal . [facility] HospitalPwvcftfZHCSKSDUKS3551-50-86 07:33:00 Test Item Value Reference Range Interpretation Comments Monocytes (test code = Monocytes) 6.3 2.0-12.0 [facility] HospitalAkpymnhTUUMXYJNYG8019-17-92 07:33:00 Test Item Value Reference Range Interpretation Comments Segs (test code = Segs) 79.0 45.0-75.0 [facility]2016-07-11 07:33:00 Test Item Value Reference Range Interpretation Comments eGFR (test code = eGFR) 125 [facility]2016-07-11 07:33:00 Test Item Value Reference Range Interpretation Comments Potassium Lvl (test code = Potassium 3.9 3.5-5.1 Lvl) [facility]2016-07-11 07:33:00 Test Item Value Reference Range Interpretation Comments Chloride Lvl (test code = Chloride Lvl) 107 95-109 [facility]2016-07-11 07:33:00 Test Item Value Reference Range Interpretation Comments Creatinine Lvl (test code = Creatinine 0.61 0.50-1.40 Lvl) [facility]2016-07-11 07:33:00 Test Item Value Reference Range Interpretation Comments Sodium Lvl (test code = Sodium Lvl) 140 135-145 [facility]2016-07-11 07:33:00 Test Item Value Reference Range Interpretation Comments Calcium Lvl (test code = Calcium Lvl) 8.1 8.5-10.5 [facility]2016-07-11 07:33:00 Test Item Value Reference Range Interpretation Comments BUN (test code = BUN) 10 7-22 [facility]2016-07-11 07:33:00 Test Item Value Reference Range Interpretation Comments Glucose Lvl (test code = Glucose Lvl) 88 70-99 [facility]2016-07-11 07:33:00 Test Item Value Reference Range Interpretation Comments CO2 (test code = CO2) 23 24-32 [facility]2016-07-11 07:33:00 Test Item Value Reference Range Interpretation Comments AGAP (test code = AGAP) 13.9 10.0-20.0 [facility] HospitalVpflbrpQORZTQEJQD6031-65-46 07:33:00 Test Item Value Reference Range Interpretation Comments Platelet (test code = Platelet) 419 133-450 [facility] HospitalSbmzfelWPIGCTBTXR6360-35-51 07:33:00 Test Item Value Reference Range Interpretation Comments MPV (test code = MPV) 8.3 7.4-10.4 [facility] HospitalVdgqeckNLSRAGDJIH3786-59-63 07:33:00 Test Item Value Reference Range Interpretation Comments RDW (test code = RDW) 18.3 11.5-14.5 [facility] HospitalRtjpaqeRBEQYSNNTP1927-21-83 07:33:00 Test Item Value Reference Range Interpretation Comments MCV (test code = MCV) 82.4 80.0-98.0 [facility] HospitalIxatjdmWFLBZIAJCA4280-56-78 07:33:00 Test Item Value Reference Range Interpretation Comments MCHC (test code = MCHC) 32.1 32.0-36.0 [facility] HospitalOfwwfwgEDTSTLRRUX6471-10-79 07:33:00 Test Item Value Reference Range Interpretation Comments MCH (test code = MCH) 26.4 pg 27.0-31.0 [facility] HospitalEyvneouSJFDWFQGDE9734-76-10 07:33:00 Test Item Value Reference Range Interpretation Comments Hct (test code = Hct) 34.7 36.0-48.0 [facility] HospitalYfinbppMNITCTFQXN1009-77-80 07:33:00 Test Item Value Reference Range Interpretation Comments RBC X 10x6 (test code = RBC X 10x6) 4.21 4.20-5.40 [facility] HospitalCtknxztAMGEPTGBXR8087-85-20 07:33:00 Test Item Value Reference Range Interpretation Comments Hgb (test code = Hgb) 11.1 12.0-16.0 [facility] HospitalBrsnrzkUWGOKFNYCD5536-99-08 07:33:00 Test Item Value Reference Range Interpretation Comments WBC X 10x3 (test code = WBC X 10x3) 14.8 3.7-10.4 [facility] HospitalRsqxmraTJDIFZYTSY4609-73-56 07:33:00 Test Item Value Reference Range Interpretation Comments Lymphocytes # (test code = Lymphocytes 2.1 1.0-5.5 #) [facility] HospitalVxcbhubQXQGKVWXKP6545-71-03 07:33:00 Test Item Value Reference Range Interpretation Comments Monocytes # (test code 0.9 See_Comment [Aut omated message] The = Monocytes #) system which generated this result tra nsmitted reference range : <=0.8. The reference r bertha was not used to int erpret this result as normal/abnormal . [facility] HospitalWfzdcjiBHUQEWKCZP7911-22-97 07:33:00 Test Item Value Reference Range Interpretation Comments Segs-Bands # (test code = Segs-Bands #) 11.7 1.5-8.1 [facility] HospitalQvwbynoQMCFSAIEAO3172-67-74 07:33:00 Test Item Value Reference Range Interpretation Comments Eosinophils (test code = 0.3 See_Comment [A utomated message] The Eosinophils) system which ge nerated this result tra nsmitted reference range : <=4.0. The reference r bertha was not used to int erpret this result as normal/abnormal . [facility] HospitalHjrkhyiGWCFTJHVKT1306-88-48 07:33:00 Test Item Value Reference Range Interpretation Comments Lymphocytes (test code = Lymphocytes) 14.1 20.0-40.0 [facility] HospitalZqvphfsLJQTYVBHJF7963-11-21 07:33:00 Test Item Value Reference Range Interpretation Comments Basophils (test code = 0.3 See_Comment [Aut omated message] The Basophils) system which ge nerated this result tra nsmitted reference range : <=1.0. The reference r bertha was not used to int erpret this result as normal/abnormal . [facility] HospitalXdwpqydHNDOKIVFEI9515-37-62 07:33:00 Test Item Value Reference Range Interpretation Comments Monocytes (test code = Monocytes) 6.3 2.0-12.0 [facility] HospitalDvrotkkGLZFDNBQCA9959-25-73 07:33:00 Test Item Value Reference Range Interpretation Comments Segs (test code = Segs) 79.0 45.0-75.0 [facility] AND [id number] 22:21:00 Test Item Value Reference Range Interpretation Comments UA Color (test code = Yellow *NA*(12/21/15 UA Color) 5:21 PM) [facility] AND [id number] 22:21:00 Test Item Value Reference Range Interpretation Comments UA Turbidity (test code = Clear (12/21/15 5:21 UA Turbidity) PM) [facility] AND [id number] 22:21:00 Test Item Value Reference Range Interpretation Comments UA Urobilinogen (test code = UA 0.2 0.1-1.0 Urobilinogen) [facility] AND [id number] 22:21:00 Test Item Value Reference Range Interpretation Comments UA Nitrite (test code Negative (7/10/16 5:21 = UA Nitrite) PM) [facility] AND [id number] 22:21:00 Test Item Value Reference Range Interpretation Comments UA Sq Epi (test code = UA Sq Epi) Few /LPF [facility] AND [id number] 22:21:00 Test Item Value Reference Range Interpretation Comments UA WBC (test code = UA WBC) 0-2 /HPF [facility] AND [id number] 22:21:00 Test Item Value Reference Range Interpretation Comments UA pH (test code = UA pH) 8.0 1 5.0-8.0 [facility] AND [id number] 22:21:00 Test Item Value Reference Range Interpretation Comments UA Spec Grav (test code = UA Spec 1.015 1 Grav) [facility] AND [id number] 22:21:00 Test Item Value Reference Range Interpretation Comments UA Protein (test code Negative (12/21/15 5:21 = UA Protein) PM) [facility] AND [id number] 22:21:00 Test Item Value Reference Range Interpretation Comments UA Bili (test code = Negative *NA*(12/21/15 UA Bili) 5:21 PM) [facility] AND [id number] 22:21:00 Test Item Value Reference Range Interpretation Comments UA Glucose (test code Negative (12/21/15 5:21 = UA Glucose) PM) [facility] AND [id number] 22:21:00 Test Item Value Reference Range Interpretation Comments UA Leuk Est (test Negative (12/21/15 5:21 code = UA Leuk Est) PM) [facility] AND [id number] 22:21:00 Test Item Value Reference Range Interpretation Comments UA Blood (test code = Negative (12/21/15 5:21 UA Blood) PM) [facility] AND [id number] 22:21:00 Test Item Value Reference Range Interpretation Comments UA Ketones (test code = UA >=80 mg/dL Ketones) [facility] AND [id number] 22:21:00 Test Item Value Reference Range Interpretation Comments UA RBC (test code = 0-2 /HPF See_Comment [Automa daphne message] The UA RBC) system which ge nerated this result tra nsmitted reference range : <=2. The reference range was not used to interpr et this result as fatuma l/abnormal. [facility] [id number] 22:21:00 Test Item Value Reference Range Interpretation Comments UA Bacteria (test code = UA Occasional /HPF Bacteria) [facility] [id number] 22:21:00 Test Item Value Reference Range Interpretation Comments UA Mucus (test code = See Note (12/21/15 5:21 UA Mucus) PM) [facility] [id number] 22:21:00 Test Item Value Reference Range Interpretation Comments U Preg (test code = U Negative (12/21/15 5:21 Preg) PM) [facility] [id number] 22:21:00 Test Item Value Reference Range Interpretation Comments UA Color (test code = Yellow *NA*(12/21/15 UA Color) 5:21 PM) [facility] [id number] 22:21:00 Test Item Value Reference Range Interpretation Comments UA Turbidity (test code = Clear (12/21/15 5:21 UA Turbidity) PM) [facility] [id number] 22:21:00 Test Item Value Reference Range Interpretation Comments UA Urobilinogen (test code = UA 0.2 0.1-1.0 Urobilinogen) [facility] [id number] 22:21:00 Test Item Value Reference Range Interpretation Comments UA Nitrite (test code Negative (12/21/15 5:21 = UA Nitrite) PM) [facility] [id number] 22:21:00 Test Item Value Reference Range Interpretation Comments UA Sq Epi (test code = UA Sq Epi) Few /LPF [facility] [id number] 22:21:00 Test Item Value Reference Range Interpretation Comments UA WBC (test code = UA WBC) 0-2 /HPF [facility] [id number] 22:21:00 Test Item Value Reference Range Interpretation Comments UA pH (test code = UA pH) 8.0 1 5.0-8.0 [facility] [id number] 22:21:00 Test Item Value Reference Range Interpretation Comments UA Spec Grav (test code = UA Spec 1.015 1 Grav) [facility] [id number] 22:21:00 Test Item Value Reference Range Interpretation Comments UA Protein (test code Negative (12/21/15 5:21 = UA Protein) PM) [facility] [id number] 22:21:00 Test Item Value Reference Range Interpretation Comments UA Bili (test code = Negative *NA*(12/21/15 UA Bili) 5:21 PM) [facility] [id number] 22:21:00 Test Item Value Reference Range Interpretation Comments UA Glucose (test code Negative (12/21/15 5:21 = UA Glucose) PM) [facility] [id number] 22:21:00 Test Item Value Reference Range Interpretation Comments UA Leuk Est (test Negative (12/21/15 5:21 code = UA Leuk Est) PM) [facility] [id number] 22:21:00 Test Item Value Reference Range Interpretation Comments UA Blood (test code = Negative (12/21/15 5:21 UA Blood) PM) [facility] [id number] 22:21:00 Test Item Value Reference Range Interpretation Comments UA Ketones (test code = UA >=80 mg/dL Ketones) [facility] [id number] 22:21:00 Test Item Value Reference Range Interpretation Comments UA RBC (test code = 0-2 /HPF See_Comment [Automa daphne message] The UA RBC) system which ge nerated this result tra nsmitted reference range : <=2. The reference range was not used to interpr et this result as fatuma l/abnormal. [facility] [id number] 22:21:00 Test Item Value Reference Range Interpretation Comments UA Bacteria (test code = UA Occasional /HPF Bacteria) [facility] [id number] 22:21:00 Test Item Value Reference Range Interpretation Comments UA Mucus (test code = See Note (12/21/15 5:21 UA Mucus) PM) [facility] [id number] 22:21:00 Test Item Value Reference Range Interpretation Comments U Preg (test code = U Negative (12/21/15 5:21 Preg) PM) [facility] [id number] 22:21:00 Test Item Value Reference Range Interpretation Comments UA Color (test code = Yellow *NA*(12/21/15 UA Color) 5:21 PM) [facility] AND [id number] 22:21:00 Test Item Value Reference Range Interpretation Comments UA Turbidity (test code = Clear (12/21/15 5:21 UA Turbidity) PM) [facility] AND [id number] 22:21:00 Test Item Value Reference Range Interpretation Comments UA Urobilinogen (test code = UA 0.2 0.1-1.0 Urobilinogen) [facility] AND [id number] 22:21:00 Test Item Value Reference Range Interpretation Comments UA Nitrite (test code Negative (12/21/15 5:21 = UA Nitrite) PM) [facility] AND [id number] 22:21:00 Test Item Value Reference Range Interpretation Comments UA Sq Epi (test code = UA Sq Epi) Few /LPF [facility] AND [id number] 22:21:00 Test Item Value Reference Range Interpretation Comments UA WBC (test code = UA WBC) 0-2 /HPF [facility] AND [id number] 22:21:00 Test Item Value Reference Range Interpretation Comments UA pH (test code = UA pH) 8.0 1 5.0-8.0 [facility] AND [id number] 22:21:00 Test Item Value Reference Range Interpretation Comments UA Spec Grav (test code = UA Spec 1.015 1 Grav) [facility] AND [id number] 22:21:00 Test Item Value Reference Range Interpretation Comments UA Protein (test code Negative (12/21/15 5:21 = UA Protein) PM) [facility] AND [id number] 22:21:00 Test Item Value Reference Range Interpretation Comments UA Bili (test code = Negative *NA*(12/21/15 UA Bili) 5:21 PM) [facility] AND [id number] 22:21:00 Test Item Value Reference Range Interpretation Comments UA Glucose (test code Negative (12/21/15 5:21 = UA Glucose) PM) [facility] AND [id number] 22:21:00 Test Item Value Reference Range Interpretation Comments UA Leuk Est (test Negative (12/21/15 5:21 code = UA Leuk Est) PM) [facility] [id number] 22:21:00 Test Item Value Reference Range Interpretation Comments UA Blood (test code = Negative (12/21/15 5:21 UA Blood) PM) [facility] [id number] 22:21:00 Test Item Value Reference Range Interpretation Comments UA Ketones (test code = UA >=80 mg/dL Ketones) [facility] [id number] 22:21:00 Test Item Value Reference Range Interpretation Comments UA RBC (test code = 0-2 /HPF See_Comment [Automa daphne message] The UA RBC) system which ge nerated this result tra nsmitted reference range : <=2. The reference range was not used to interpr et this result as fatuma l/abnormal. [facility] [id number] 22:21:00 Test Item Value Reference Range Interpretation Comments UA Bacteria (test code = UA Occasional /HPF Bacteria) [facility] [id number] 22:21:00 Test Item Value Reference Range Interpretation Comments UA Mucus (test code = See Note (12/21/15 5:21 UA Mucus) PM) [facility] [id number] 22:21:00 Test Item Value Reference Range Interpretation Comments U Preg (test code = U Negative (12/21/15 5:21 Preg) PM) [facility] [id number] 22:21:00 Test Item Value Reference Range Interpretation Comments UA Color (test code = Yellow *NA*(12/21/15 UA Color) 5:21 PM) [facility] [id number] 22:21:00 Test Item Value Reference Range Interpretation Comments UA Turbidity (test code = Clear (12/21/15 5:21 UA Turbidity) PM) [facility] [id number] 22:21:00 Test Item Value Reference Range Interpretation Comments UA Urobilinogen (test code = UA 0.2 0.1-1.0 Urobilinogen) [facility] [id number] 22:21:00 Test Item Value Reference Range Interpretation Comments UA Nitrite (test code Negative (12/21/15 5:21 = UA Nitrite) PM) [facility] [id number] 22:21:00 Test Item Value Reference Range Interpretation Comments UA Sq Epi (test code = UA Sq Epi) Few /LPF [facility] AND [id number] 22:21:00 Test Item Value Reference Range Interpretation Comments UA WBC (test code = UA WBC) 0-2 /HPF [facility] AND [id number] 22:21:00 Test Item Value Reference Range Interpretation Comments UA pH (test code = UA pH) 8.0 1 5.0-8.0 [facility] AND [id number] 22:21:00 Test Item Value Reference Range Interpretation Comments UA Spec Grav (test code = UA Spec 1.015 1 Grav) [facility] AND [id number] 22:21:00 Test Item Value Reference Range Interpretation Comments UA Protein (test code Negative (12/21/15 5:21 = UA Protein) PM) [facility] AND [id number] 22:21:00 Test Item Value Reference Range Interpretation Comments UA Bili (test code = Negative *NA*(12/21/15 UA Bili) 5:21 PM) [facility] AND [id number] 22:21:00 Test Item Value Reference Range Interpretation Comments UA Glucose (test code Negative (12/21/15 5:21 = UA Glucose) PM) [facility] AND [id number] 22:21:00 Test Item Value Reference Range Interpretation Comments UA Leuk Est (test Negative (12/21/15 5:21 code = UA Leuk Est) PM) [facility] AND [id number] 22:21:00 Test Item Value Reference Range Interpretation Comments UA Blood (test code = Negative (12/21/15 5:21 UA Blood) PM) [facility] AND [id number] 22:21:00 Test Item Value Reference Range Interpretation Comments UA Ketones (test code = UA >=80 mg/dL Ketones) [facility] AND [id number] 22:21:00 Test Item Value Reference Range Interpretation Comments UA RBC (test code = 0-2 /HPF See_Comment [Automa daphne message] The UA RBC) system which ge nerated this result tra nsmitted reference range : <=2. The reference range was not used to interpr et this result as fatuma l/abnormal. [facility] [id number] 22:21:00 Test Item Value Reference Range Interpretation Comments UA Bacteria (test code = UA Occasional /HPF Bacteria) [facility] [id number] 22:21:00 Test Item Value Reference Range Interpretation Comments UA Mucus (test code = See Note (12/21/15 5:21 UA Mucus) PM) [facility] [id number] 22:21:00 Test Item Value Reference Range Interpretation Comments U Preg (test code = U Negative (12/21/15 5:21 Preg) PM) [facility] [id number] 22:21:00 Test Item Value Reference Range Interpretation Comments UA Color (test code = Yellow *NA*(12/21/15 UA Color) 5:21 PM) [facility] [id number] 22:21:00 Test Item Value Reference Range Interpretation Comments UA Turbidity (test code = Clear (12/21/15 5:21 UA Turbidity) PM) [facility] [id number] 22:21:00 Test Item Value Reference Range Interpretation Comments UA Urobilinogen (test code = UA 0.2 0.1-1.0 Urobilinogen) [facility] [id number] 22:21:00 Test Item Value Reference Range Interpretation Comments UA Nitrite (test code Negative (12/21/15 5:21 = UA Nitrite) PM) [facility] [id number] 22:21:00 Test Item Value Reference Range Interpretation Comments UA Sq Epi (test code = UA Sq Epi) Few /LPF [facility] [id number] 22:21:00 Test Item Value Reference Range Interpretation Comments UA WBC (test code = UA WBC) 0-2 /HPF [facility] [id number] 22:21:00 Test Item Value Reference Range Interpretation Comments UA pH (test code = UA pH) 8.0 1 5.0-8.0 [facility] [id number] 22:21:00 Test Item Value Reference Range Interpretation Comments UA Spec Grav (test code = UA Spec 1.015 1 Grav) [facility] [id number] 22:21:00 Test Item Value Reference Range Interpretation Comments UA Protein (test code Negative (12/21/15 5:21 = UA Protein) PM) [facility] [id number] 22:21:00 Test Item Value Reference Range Interpretation Comments UA Bili (test code = Negative *NA*(12/21/15 UA Bili) 5:21 PM) [facility] [id number] 22:21:00 Test Item Value Reference Range Interpretation Comments UA Glucose (test code Negative (12/21/15 5:21 = UA Glucose) PM) [facility] [id number] 22:21:00 Test Item Value Reference Range Interpretation Comments UA Leuk Est (test Negative (12/21/15 5:21 code = UA Leuk Est) PM) [facility] [id number] 22:21:00 Test Item Value Reference Range Interpretation Comments UA Blood (test code = Negative (12/21/15 5:21 UA Blood) PM) [facility] [id number] 22:21:00 Test Item Value Reference Range Interpretation Comments UA Ketones (test code = UA >=80 mg/dL Ketones) [facility] [id number] 22:21:00 Test Item Value Reference Range Interpretation Comments UA RBC (test code = 0-2 /HPF See_Comment [Automa daphne message] The UA RBC) system which ge nerated this result tra nsmitted reference range : <=2. The reference range was not used to interpr et this result as fatuma l/abnormal. [facility] [id number] 22:21:00 Test Item Value Reference Range Interpretation Comments UA Bacteria (test code = UA Occasional /HPF Bacteria) [facility] [id number] 22:21:00 Test Item Value Reference Range Interpretation Comments UA Mucus (test code = See Note (12/21/15 5:21 UA Mucus) PM) [facility] [id number] 22:21:00 Test Item Value Reference Range Interpretation Comments U Preg (test code = U Negative (12/21/15 5:21 Preg) PM) [facility] [id number] 22:21:00 Test Item Value Reference Range Interpretation Comments UA Color (test code = Yellow *NA*(12/21/15 UA Color) 5:21 PM) [facility] AND [id number] 22:21:00 Test Item Value Reference Range Interpretation Comments UA Turbidity (test code = Clear (12/21/15 5:21 UA Turbidity) PM) [facility] AND [id number] 22:21:00 Test Item Value Reference Range Interpretation Comments UA Urobilinogen (test code = UA 0.2 0.1-1.0 Urobilinogen) [facility] AND [id number] 22:21:00 Test Item Value Reference Range Interpretation Comments UA Nitrite (test code Negative (12/21/15 5:21 = UA Nitrite) PM) [facility] AND [id number] 22:21:00 Test Item Value Reference Range Interpretation Comments UA Sq Epi (test code = UA Sq Epi) Few /LPF [facility] AND [id number] 22:21:00 Test Item Value Reference Range Interpretation Comments UA WBC (test code = UA WBC) 0-2 /HPF [facility] AND [id number] 22:21:00 Test Item Value Reference Range Interpretation Comments UA pH (test code = UA pH) 8.0 1 5.0-8.0 [facility] AND [id number] 22:21:00 Test Item Value Reference Range Interpretation Comments UA Spec Grav (test code = UA Spec 1.015 1 Grav) [facility] AND [id number] 22:21:00 Test Item Value Reference Range Interpretation Comments UA Protein (test code Negative (12/21/15 5:21 = UA Protein) PM) [facility] AND [id number] 22:21:00 Test Item Value Reference Range Interpretation Comments UA Bili (test code = Negative *NA*(12/21/15 UA Bili) 5:21 PM) [facility] AND [id number] 22:21:00 Test Item Value Reference Range Interpretation Comments UA Glucose (test code Negative (12/21/15 5:21 = UA Glucose) PM) [facility] AND [id number] 22:21:00 Test Item Value Reference Range Interpretation Comments UA Color (test code = Yellow *NA*(12/21/15 UA Color) 5:21 PM) [facility] [id number] 22:21:00 Test Item Value Reference Range Interpretation Comments UA Turbidity (test code = Clear (12/21/15 5:21 UA Turbidity) PM) [facility] [id number] 22:21:00 Test Item Value Reference Range Interpretation Comments UA Urobilinogen (test code = UA 0.2 0.1-1.0 Urobilinogen) [facility] AND [id number] 22:21:00 Test Item Value Reference Range Interpretation Comments UA Leuk Est (test Negative (12/21/15 5:21 code = UA Leuk Est) PM) [facility] AND [id number] 22:21:00 Test Item Value Reference Range Interpretation Comments UA Nitrite (test code Negative (12/21/15 5:21 = UA Nitrite) PM) [facility] AND [id number] 22:21:00 Test Item Value Reference Range Interpretation Comments UA Sq Epi (test code = UA Sq Epi) Few /LPF [facility] AND [id number] 22:21:00 Test Item Value Reference Range Interpretation Comments UA WBC (test code = UA WBC) 0-2 /HPF [facility] AND [id number] 22:21:00 Test Item Value Reference Range Interpretation Comments UA pH (test code = UA pH) 8.0 1 5.0-8.0 [facility] AND [id number] 22:21:00 Test Item Value Reference Range Interpretation Comments UA Spec Grav (test code = UA Spec 1.015 1 Grav) [facility] AND [id number] 22:21:00 Test Item Value Reference Range Interpretation Comments UA Blood (test code = Negative (12/21/15 5:21 UA Blood) PM) [facility] AND [id number] 22:21:00 Test Item Value Reference Range Interpretation Comments UA Protein (test code Negative (12/21/15 5:21 = UA Protein) PM) [facility] AND [id number] 22:21:00 Test Item Value Reference Range Interpretation Comments UA Bili (test code = Negative *NA*(12/21/15 UA Bili) 5:21 PM) [facility] [id number] 22:21:00 Test Item Value Reference Range Interpretation Comments UA Glucose (test code Negative (12/21/15 5:21 = UA Glucose) PM) [facility] [id number] 22:21:00 Test Item Value Reference Range Interpretation Comments UA Leuk Est (test Negative (12/21/15 5:21 code = UA Leuk Est) PM) [facility] [id number] 22:21:00 Test Item Value Reference Range Interpretation Comments UA Blood (test code = Negative (12/21/15 5:21 UA Blood) PM) [facility] [id number] 22:21:00 Test Item Value Reference Range Interpretation Comments UA Ketones (test code = UA >=80 mg/dL Ketones) [facility] [id number] 22:21:00 Test Item Value Reference Range Interpretation Comments UA Ketones (test code = UA >=80 mg/dL Ketones) [facility] [id number] 22:21:00 Test Item Value Reference Range Interpretation Comments UA RBC (test code = 0-2 /HPF See_Comment [Automa daphne message] The UA RBC) system which ge nerated this result tra nsmitted reference range : <=2. The reference range was not used to interpr et this result as fatuma l/abnormal. [facility] [id number] 22:21:00 Test Item Value Reference Range Interpretation Comments UA Bacteria (test code = UA Occasional /HPF Bacteria) [facility] [id number] 22:21:00 Test Item Value Reference Range Interpretation Comments UA Mucus (test code = See Note (12/21/15 5:21 UA Mucus) PM) [facility] [id number] 22:21:00 Test Item Value Reference Range Interpretation Comments U Preg (test code = U Negative (12/21/15 5:21 Preg) PM) [facility] [id number] 22:21:00 Test Item Value Reference Range Interpretation Comments UA RBC (test code = 0-2 /HPF See_Comment [Automa daphne message] The UA RBC) system which ge nerated this result tra nsmitted reference range : <=2. The reference range was not used to interpr et this result as fatuma l/abnormal. [facility] [id number] 22:21:00 Test Item Value Reference Range Interpretation Comments UA Bacteria (test code = UA Occasional /HPF Bacteria) [facility] [id number] 22:21:00 Test Item Value Reference Range Interpretation Comments UA Mucus (test code = See Note (12/21/15 5:21 UA Mucus) PM) [facility] [id number] 22:21:00 Test Item Value Reference Range Interpretation Comments U Preg (test code = U Negative (12/21/15 5:21 Preg) PM) [facility] [id number] 22:21:00 Test Item Value Reference Range Interpretation Comments UA Color (test code = Yellow *NA*(12/21/15 UA Color) 5:21 PM) [facility] [id number] 22:21:00 Test Item Value Reference Range Interpretation Comments UA Turbidity (test code = Clear (12/21/15 5:21 UA Turbidity) PM) [facility] [id number] 22:21:00 Test Item Value Reference Range Interpretation Comments UA Urobilinogen (test code = UA 0.2 0.1-1.0 Urobilinogen) [facility] [id number] 22:21:00 Test Item Value Reference Range Interpretation Comments UA Nitrite (test code Negative (12/21/15 5:21 = UA Nitrite) PM) [facility] [id number] 22:21:00 Test Item Value Reference Range Interpretation Comments UA Sq Epi (test code = UA Sq Epi) Few /LPF [facility] [id number] 22:21:00 Test Item Value Reference Range Interpretation Comments UA WBC (test code = UA WBC) 0-2 /HPF [facility] [id number] 22:21:00 Test Item Value Reference Range Interpretation Comments UA pH (test code = UA pH) 8.0 1 5.0-8.0 [facility] [id number] 22:21:00 Test Item Value Reference Range Interpretation Comments UA Spec Grav (test code = UA Spec 1.015 1 Grav) [facility] [id number] 22:21:00 Test Item Value Reference Range Interpretation Comments UA Protein (test code Negative (12/21/15 5:21 = UA Protein) PM) [facility] [id number] 22:21:00 Test Item Value Reference Range Interpretation Comments UA Bili (test code = Negative *NA*(12/21/15 UA Bili) 5:21 PM) [facility] [id number] 22:21:00 Test Item Value Reference Range Interpretation Comments UA Glucose (test code Negative (12/21/15 5:21 = UA Glucose) PM) [facility] [id number] 22:21:00 Test Item Value Reference Range Interpretation Comments UA Leuk Est (test Negative (12/21/15 5:21 code = UA Leuk Est) PM) [facility] [id number] 22:21:00 Test Item Value Reference Range Interpretation Comments UA Blood (test code = Negative (12/21/15 5:21 UA Blood) PM) [facility] [id number] 22:21:00 Test Item Value Reference Range Interpretation Comments UA Ketones (test code = UA >=80 mg/dL Ketones) [facility] [id number] 22:21:00 Test Item Value Reference Range Interpretation Comments UA RBC (test code = 0-2 /HPF See_Comment [Automa daphne message] The UA RBC) system which ge nerated this result tra nsmitted reference range : <=2. The reference range was not used to interpr et this result as fatuma l/abnormal. [facility] AND [id number] 22:21:00 Test Item Value Reference Range Interpretation Comments UA Bacteria (test code = UA Occasional /HPF Bacteria) [facility] AND [id number] 22:21:00 Test Item Value Reference Range Interpretation Comments UA Mucus (test code = See Note (12/21/15 5:21 UA Mucus) PM) [facility] [id number] 22:21:00 Test Item Value Reference Range Interpretation Comments U Preg (test code = U Negative (12/21/15 5:21 Preg) PM) [facility] [id number] 22:21:00 Test Item Value Reference Range Interpretation Comments UA Color (test code = Yellow *NA*(12/21/15 UA Color) 5:21 PM) [facility] AND [id number] 22:21:00 Test Item Value Reference Range Interpretation Comments UA Turbidity (test code = Clear (12/21/15 5:21 UA Turbidity) PM) [facility] AND [id number] 22:21:00 Test Item Value Reference Range Interpretation Comments UA Urobilinogen (test code = UA 0.2 0.1-1.0 Urobilinogen) [facility] AND [id number] 22:21:00 Test Item Value Reference Range Interpretation Comments UA Nitrite (test code Negative (12/21/15 5:21 = UA Nitrite) PM) [facility] AND [id number] 22:21:00 Test Item Value Reference Range Interpretation Comments UA Sq Epi (test code = UA Sq Epi) Few /LPF [facility] AND [id number] 22:21:00 Test Item Value Reference Range Interpretation Comments UA WBC (test code = UA WBC) 0-2 /HPF [facility] AND [id number] 22:21:00 Test Item Value Reference Range Interpretation Comments UA pH (test code = UA pH) 8.0 1 5.0-8.0 [facility] AND [id number] 22:21:00 Test Item Value Reference Range Interpretation Comments UA Spec Grav (test code = UA Spec 1.015 1 Grav) [facility] AND [id number] 22:21:00 Test Item Value Reference Range Interpretation Comments UA Protein (test code Negative (12/21/15 5:21 = UA Protein) PM) [facility] AND [id number] 22:21:00 Test Item Value Reference Range Interpretation Comments UA Bili (test code = Negative *NA*(12/21/15 UA Bili) 5:21 PM) [facility] AND [id number] 22:21:00 Test Item Value Reference Range Interpretation Comments UA Glucose (test code Negative (12/21/15 5:21 = UA Glucose) PM) [facility] AND [id number] 22:21:00 Test Item Value Reference Range Interpretation Comments UA Leuk Est (test Negative (12/21/15 5:21 code = UA Leuk Est) PM) [facility] AND [id number] 22:21:00 Test Item Value Reference Range Interpretation Comments UA Blood (test code = Negative (12/21/15 5:21 UA Blood) PM) [facility] [id number] 22:21:00 Test Item Value Reference Range Interpretation Comments UA Ketones (test code = UA >=80 mg/dL Ketones) [facility] [id number] 22:21:00 Test Item Value Reference Range Interpretation Comments UA RBC (test code = 0-2 /HPF See_Comment [Automa daphne message] The UA RBC) system which ge nerated this result tra nsmitted reference range : <=2. The reference range was not used to interpr et this result as fatuma l/abnormal. [facility] [id number] 22:21:00 Test Item Value Reference Range Interpretation Comments UA Bacteria (test code = UA Occasional /HPF Bacteria) [facility] [id number] 22:21:00 Test Item Value Reference Range Interpretation Comments UA Mucus (test code = See Note (12/21/15 5:21 UA Mucus) PM) [facility] [id number] 22:21:00 Test Item Value Reference Range Interpretation Comments U Preg (test code = U Negative (12/21/15 5:21 Preg) PM) [facility] [id number] 22:21:00 Test Item Value Reference Range Interpretation Comments UA Color (test code = Yellow *NA*(12/21/15 UA Color) 5:21 PM) [facility] [id number] 22:21:00 Test Item Value Reference Range Interpretation Comments UA Turbidity (test code = Clear (12/21/15 5:21 UA Turbidity) PM) [facility] [id number] 22:21:00 Test Item Value Reference Range Interpretation Comments UA Urobilinogen (test code = UA 0.2 0.1-1.0 Urobilinogen) [facility] [id number] 22:21:00 Test Item Value Reference Range Interpretation Comments UA Nitrite (test code Negative (12/21/15 5:21 = UA Nitrite) PM) [facility] [id number] 22:21:00 Test Item Value Reference Range Interpretation Comments UA Sq Epi (test code = UA Sq Epi) Few /LPF [facility] AND [id number] 22:21:00 Test Item Value Reference Range Interpretation Comments UA WBC (test code = UA WBC) 0-2 /HPF [facility] AND [id number] 22:21:00 Test Item Value Reference Range Interpretation Comments UA pH (test code = UA pH) 8.0 1 5.0-8.0 [facility] AND [id number] 22:21:00 Test Item Value Reference Range Interpretation Comments UA Spec Grav (test code = UA Spec 1.015 1 Grav) [facility] AND [id number] 22:21:00 Test Item Value Reference Range Interpretation Comments UA Protein (test code Negative (12/21/15 5:21 = UA Protein) PM) [facility] AND [id number] 22:21:00 Test Item Value Reference Range Interpretation Comments UA Bili (test code = Negative *NA*(12/21/15 UA Bili) 5:21 PM) [facility] AND [id number] 22:21:00 Test Item Value Reference Range Interpretation Comments UA Glucose (test code Negative (12/21/15 5:21 = UA Glucose) PM) [facility] AND [id number] 22:21:00 Test Item Value Reference Range Interpretation Comments UA Leuk Est (test Negative (12/21/15 5:21 code = UA Leuk Est) PM) [facility] AND [id number] 22:21:00 Test Item Value Reference Range Interpretation Comments UA Blood (test code = Negative (12/21/15 5:21 UA Blood) PM) [facility] AND [id number] 22:21:00 Test Item Value Reference Range Interpretation Comments UA Ketones (test code = UA >=80 mg/dL Ketones) [facility] AND [id number] 22:21:00 Test Item Value Reference Range Interpretation Comments UA RBC (test code = 0-2 /HPF See_Comment [Automa daphne message] The UA RBC) system which ge nerated this result tra nsmitted reference range : <=2. The reference range was not used to interpr et this result as fatuma l/abnormal. [facility] AND [id number] 22:21:00 Test Item Value Reference Range Interpretation Comments UA Bacteria (test code = UA Occasional /HPF Bacteria) [facility] [id number] 22:21:00 Test Item Value Reference Range Interpretation Comments UA Mucus (test code = See Note (12/21/15 5:21 UA Mucus) PM) [facility] [id number] 22:21:00 Test Item Value Reference Range Interpretation Comments U Preg (test code = U Negative (12/21/15 5:21 Preg) PM) [facility] [id number] 22:21:00 Test Item Value Reference Range Interpretation Comments UA Color (test code = Yellow *NA*(12/21/15 UA Color) 5:21 PM) [facility] [id number] 22:21:00 Test Item Value Reference Range Interpretation Comments UA Turbidity (test code = Clear (12/21/15 5:21 UA Turbidity) PM) [facility] [id number] 22:21:00 Test Item Value Reference Range Interpretation Comments UA Urobilinogen (test code = UA 0.2 0.1-1.0 Urobilinogen) [facility] [id number] 22:21:00 Test Item Value Reference Range Interpretation Comments UA Nitrite (test code Negative (12/21/15 5:21 = UA Nitrite) PM) [facility] [id number] 22:21:00 Test Item Value Reference Range Interpretation Comments UA Sq Epi (test code = UA Sq Epi) Few /LPF [facility] [id number] 22:21:00 Test Item Value Reference Range Interpretation Comments UA WBC (test code = UA WBC) 0-2 /HPF [facility] [id number] 22:21:00 Test Item Value Reference Range Interpretation Comments UA pH (test code = UA pH) 8.0 1 5.0-8.0 [facility] [id number] 22:21:00 Test Item Value Reference Range Interpretation Comments UA Spec Grav (test code = UA Spec 1.015 1 Grav) [facility] [id number] 22:21:00 Test Item Value Reference Range Interpretation Comments UA Protein (test code Negative (12/21/15 5:21 = UA Protein) PM) [facility] [id number] 22:21:00 Test Item Value Reference Range Interpretation Comments UA Bili (test code = Negative *NA*(12/21/15 UA Bili) 5:21 PM) [facility] [id number] 22:21:00 Test Item Value Reference Range Interpretation Comments UA Glucose (test code Negative (12/21/15 5:21 = UA Glucose) PM) [facility] [id number] 22:21:00 Test Item Value Reference Range Interpretation Comments UA Leuk Est (test Negative (12/21/15 5:21 code = UA Leuk Est) PM) [facility] [id number] 22:21:00 Test Item Value Reference Range Interpretation Comments UA Blood (test code = Negative (12/21/15 5:21 UA Blood) PM) [facility] [id number] 22:21:00 Test Item Value Reference Range Interpretation Comments UA Ketones (test code = UA >=80 mg/dL Ketones) [facility] [id number] 22:21:00 Test Item Value Reference Range Interpretation Comments UA RBC (test code = 0-2 /HPF See_Comment [Automa daphne message] The UA RBC) system which ge nerated this result tra nsmitted reference range : <=2. The reference range was not used to interpr et this result as fatuma l/abnormal. [facility] [id number] 22:21:00 Test Item Value Reference Range Interpretation Comments UA Bacteria (test code = UA Occasional /HPF Bacteria) [facility] [id number] 22:21:00 Test Item Value Reference Range Interpretation Comments UA Mucus (test code = See Note (12/21/15 5:21 UA Mucus) PM) [facility] [id number] 22:21:00 Test Item Value Reference Range Interpretation Comments U Preg (test code = U Negative (12/21/15 5:21 Preg) PM) [facility] [id number] 22:21:00 Test Item Value Reference Range Interpretation Comments UA Color (test code = Yellow *NA*(12/21/15 UA Color) 5:21 PM) [facility] [id number] 22:21:00 Test Item Value Reference Range Interpretation Comments UA Turbidity (test code = Clear (12/21/15 5:21 UA Turbidity) PM) [facility] AND [id number] 22:21:00 Test Item Value Reference Range Interpretation Comments UA Urobilinogen (test code = UA 0.2 0.1-1.0 Urobilinogen) [facility] AND [id number] 22:21:00 Test Item Value Reference Range Interpretation Comments UA Nitrite (test code Negative (12/21/15 5:21 = UA Nitrite) PM) [facility] AND [id number] 22:21:00 Test Item Value Reference Range Interpretation Comments UA Sq Epi (test code = UA Sq Epi) Few /LPF [facility] AND [id number] 22:21:00 Test Item Value Reference Range Interpretation Comments UA WBC (test code = UA WBC) 0-2 /HPF [facility] AND [id number] 22:21:00 Test Item Value Reference Range Interpretation Comments UA pH (test code = UA pH) 8.0 1 5.0-8.0 [facility] AND [id number] 22:21:00 Test Item Value Reference Range Interpretation Comments UA Spec Grav (test code = UA Spec 1.015 1 Grav) [facility] AND [id number] 22:21:00 Test Item Value Reference Range Interpretation Comments UA Protein (test code Negative (12/21/15 5:21 = UA Protein) PM) [facility] AND [id number] 22:21:00 Test Item Value Reference Range Interpretation Comments UA Bili (test code = Negative *NA*(12/21/15 UA Bili) 5:21 PM) [facility] AND [id number] 22:21:00 Test Item Value Reference Range Interpretation Comments UA Glucose (test code Negative (12/21/15 5:21 = UA Glucose) PM) [facility] AND [id number] 22:21:00 Test Item Value Reference Range Interpretation Comments UA Leuk Est (test Negative (12/21/15 5:21 code = UA Leuk Est) PM) [facility] AND [id number] 22:21:00 Test Item Value Reference Range Interpretation Comments UA Blood (test code = Negative (12/21/15 5:21 UA Blood) PM) [facility] [id number] 22:21:00 Test Item Value Reference Range Interpretation Comments UA Ketones (test code = UA >=80 mg/dL Ketones) [facility] [id number] 22:21:00 Test Item Value Reference Range Interpretation Comments UA RBC (test code = 0-2 /HPF See_Comment [Automa daphne message] The UA RBC) system which ge nerated this result tra nsmitted reference range : <=2. The reference range was not used to interpr et this result as fatuma l/abnormal. [facility] AND [id number] 22:21:00 Test Item Value Reference Range Interpretation Comments UA Bacteria (test code = UA Occasional /HPF Bacteria) [facility] AND [id number] 22:21:00 Test Item Value Reference Range Interpretation Comments UA Mucus (test code = See Note (12/21/15 5:21 UA Mucus) PM) [facility] [id number] 22:21:00 Test Item Value Reference Range Interpretation Comments U Preg (test code = U Negative (12/21/15 5:21 Preg) PM) [facility] AND [id number] 22:21:00 Test Item Value Reference Range Interpretation Comments UA Color (test code = Yellow *NA*(12/21/15 UA Color) 5:21 PM) [facility] AND [id number] 22:21:00 Test Item Value Reference Range Interpretation Comments UA Turbidity (test code = Clear (12/21/15 5:21 UA Turbidity) PM) [facility] AND [id number] 22:21:00 Test Item Value Reference Range Interpretation Comments UA Urobilinogen (test code = UA 0.2 0.1-1.0 Urobilinogen) [facility] [id number] 22:21:00 Test Item Value Reference Range Interpretation Comments UA Nitrite (test code Negative (12/21/15 5:21 = UA Nitrite) PM) [facility] [id number] 22:21:00 Test Item Value Reference Range Interpretation Comments UA Sq Epi (test code = UA Sq Epi) Few /LPF [facility] AND [id number] 22:21:00 Test Item Value Reference Range Interpretation Comments UA WBC (test code = UA WBC) 0-2 /HPF [facility] AND [id number] 22:21:00 Test Item Value Reference Range Interpretation Comments UA pH (test code = UA pH) 8.0 1 5.0-8.0 [facility] AND [id number] 22:21:00 Test Item Value Reference Range Interpretation Comments UA Spec Grav (test code = UA Spec 1.015 1 Grav) [facility] AND [id number] 22:21:00 Test Item Value Reference Range Interpretation Comments UA Protein (test code Negative (12/21/15 5:21 = UA Protein) PM) [facility] AND [id number] 22:21:00 Test Item Value Reference Range Interpretation Comments UA Bili (test code = Negative *NA*(12/21/15 UA Bili) 5:21 PM) [facility] AND [id number] 22:21:00 Test Item Value Reference Range Interpretation Comments UA Glucose (test code Negative (12/21/15 5:21 = UA Glucose) PM) [facility] AND [id number] 22:21:00 Test Item Value Reference Range Interpretation Comments UA Leuk Est (test Negative (12/21/15 5:21 code = UA Leuk Est) PM) [facility] AND [id number] 22:21:00 Test Item Value Reference Range Interpretation Comments UA Blood (test code = Negative (12/21/15 5:21 UA Blood) PM) [facility] AND [id number] 22:21:00 Test Item Value Reference Range Interpretation Comments UA Ketones (test code = UA >=80 mg/dL Ketones) [facility] AND [id number] 22:21:00 Test Item Value Reference Range Interpretation Comments UA RBC (test code = 0-2 /HPF See_Comment [Automa daphne message] The UA RBC) system which ge nerated this result tra nsmitted reference range : <=2. The reference range was not used to interpr et this result as fatuma l/abnormal. [facility] AND [id number] 22:21:00 Test Item Value Reference Range Interpretation Comments UA Bacteria (test code = UA Occasional /HPF Bacteria) [facility] [id number] 22:21:00 Test Item Value Reference Range Interpretation Comments UA Mucus (test code = See Note (12/21/15 5:21 UA Mucus) PM) [facility] [id number] 22:21:00 Test Item Value Reference Range Interpretation Comments U Preg (test code = U Negative (12/21/15 5:21 Preg) PM) [facility] [id number] 22:21:00 Test Item Value Reference Range Interpretation Comments UA Color (test code = Yellow *NA*(12/21/15 UA Color) 5:21 PM) [facility] [id number] 22:21:00 Test Item Value Reference Range Interpretation Comments UA Turbidity (test code = Clear (12/21/15 5:21 UA Turbidity) PM) [facility] [id number] 22:21:00 Test Item Value Reference Range Interpretation Comments UA Urobilinogen (test code = UA 0.2 0.1-1.0 Urobilinogen) [facility] [id number] 22:21:00 Test Item Value Reference Range Interpretation Comments UA Nitrite (test code Negative (12/21/15 5:21 = UA Nitrite) PM) [facility] [id number] 22:21:00 Test Item Value Reference Range Interpretation Comments UA Sq Epi (test code = UA Sq Epi) Few /LPF [facility] [id number] 22:21:00 Test Item Value Reference Range Interpretation Comments UA WBC (test code = UA WBC) 0-2 /HPF [facility] [id number] 22:21:00 Test Item Value Reference Range Interpretation Comments UA pH (test code = UA pH) 8.0 1 5.0-8.0 [facility] [id number] 22:21:00 Test Item Value Reference Range Interpretation Comments UA Spec Grav (test code = UA Spec 1.015 1 Grav) [facility] [id number] 22:21:00 Test Item Value Reference Range Interpretation Comments UA Protein (test code Negative (12/21/15 5:21 = UA Protein) PM) [facility] [id number] 22:21:00 Test Item Value Reference Range Interpretation Comments UA Bili (test code = Negative *NA*(12/21/15 UA Bili) 5:21 PM) [facility] [id number] 22:21:00 Test Item Value Reference Range Interpretation Comments UA Glucose (test code Negative (12/21/15 5:21 = UA Glucose) PM) [facility] [id number] 22:21:00 Test Item Value Reference Range Interpretation Comments UA Leuk Est (test Negative (12/21/15 5:21 code = UA Leuk Est) PM) [facility] [id number] 22:21:00 Test Item Value Reference Range Interpretation Comments UA Blood (test code = Negative (12/21/15 5:21 UA Blood) PM) [facility] [id number] 22:21:00 Test Item Value Reference Range Interpretation Comments UA Ketones (test code = UA >=80 mg/dL Ketones) [facility] [id number] 22:21:00 Test Item Value Reference Range Interpretation Comments UA RBC (test code = 0-2 /HPF See_Comment [Automa dahpne message] The UA RBC) system which ge nerated this result tra nsmitted reference range : <=2. The reference range was not used to interpr et this result as fatuma l/abnormal. [facility] [id number] 22:21:00 Test Item Value Reference Range Interpretation Comments UA Bacteria (test code = UA Occasional /HPF Bacteria) [facility] [id number] 22:21:00 Test Item Value Reference Range Interpretation Comments UA Mucus (test code = See Note (12/21/15 5:21 UA Mucus) PM) [facility] [id number] 22:21:00 Test Item Value Reference Range Interpretation Comments U Preg (test code = U Negative (12/21/15 5:21 Preg) PM) [facility] [id number] 22:21:00 Test Item Value Reference Range Interpretation Comments UA Color (test code = Yellow *NA*(12/21/15 UA Color) 5:21 PM) [facility] [id number] 22:21:00 Test Item Value Reference Range Interpretation Comments UA Turbidity (test code = Clear (12/21/15 5:21 UA Turbidity) PM) [facility] AND [id number] 22:21:00 Test Item Value Reference Range Interpretation Comments UA Urobilinogen (test code = UA 0.2 0.1-1.0 Urobilinogen) [facility] AND [id number] 22:21:00 Test Item Value Reference Range Interpretation Comments UA Nitrite (test code Negative (12/21/15 5:21 = UA Nitrite) PM) [facility] AND [id number] 22:21:00 Test Item Value Reference Range Interpretation Comments UA Sq Epi (test code = UA Sq Epi) Few /LPF [facility] AND [id number] 22:21:00 Test Item Value Reference Range Interpretation Comments UA WBC (test code = UA WBC) 0-2 /HPF [facility] AND [id number] 22:21:00 Test Item Value Reference Range Interpretation Comments UA pH (test code = UA pH) 8.0 1 5.0-8.0 [facility] AND [id number] 22:21:00 Test Item Value Reference Range Interpretation Comments UA Spec Grav (test code = UA Spec 1.015 1 Grav) [facility] AND [id number] 22:21:00 Test Item Value Reference Range Interpretation Comments UA Protein (test code Negative (12/21/15 5:21 = UA Protein) PM) [facility] AND [id number] 22:21:00 Test Item Value Reference Range Interpretation Comments UA Bili (test code = Negative *NA*(12/21/15 UA Bili) 5:21 PM) [facility] AND [id number] 22:21:00 Test Item Value Reference Range Interpretation Comments UA Glucose (test code Negative (12/21/15 5:21 = UA Glucose) PM) [facility] AND [id number] 22:21:00 Test Item Value Reference Range Interpretation Comments UA Leuk Est (test Negative (12/21/15 5:21 code = UA Leuk Est) PM) [facility] AND [id number] 22:21:00 Test Item Value Reference Range Interpretation Comments UA Blood (test code = Negative (12/21/15 5:21 UA Blood) PM) [facility] [id number] 22:21:00 Test Item Value Reference Range Interpretation Comments UA Ketones (test code = UA >=80 mg/dL Ketones) [facility] [id number] 22:21:00 Test Item Value Reference Range Interpretation Comments UA RBC (test code = 0-2 /HPF See_Comment [Automa daphne message] The UA RBC) system which ge nerated this result tra nsmitted reference range : <=2. The reference range was not used to interpr et this result as fatuma l/abnormal. [facility] AND [id number] 22:21:00 Test Item Value Reference Range Interpretation Comments UA Bacteria (test code = UA Occasional /HPF Bacteria) [facility] AND [id number] 22:21:00 Test Item Value Reference Range Interpretation Comments UA Mucus (test code = See Note (12/21/15 5:21 UA Mucus) PM) [facility] [id number] 22:21:00 Test Item Value Reference Range Interpretation Comments U Preg (test code = U Negative (12/21/15 5:21 Preg) PM) [facility] AND [id number] 22:21:00 Test Item Value Reference Range Interpretation Comments UA Color (test code = Yellow *NA*(12/21/15 UA Color) 5:21 PM) [facility] AND [id number] 22:21:00 Test Item Value Reference Range Interpretation Comments UA Turbidity (test code = Clear (12/21/15 5:21 UA Turbidity) PM) [facility] [id number] 22:21:00 Test Item Value Reference Range Interpretation Comments UA Urobilinogen (test code = UA 0.2 0.1-1.0 Urobilinogen) [facility] [id number] 22:21:00 Test Item Value Reference Range Interpretation Comments UA Nitrite (test code Negative (12/21/15 5:21 = UA Nitrite) PM) [facility] [id number] 22:21:00 Test Item Value Reference Range Interpretation Comments UA Sq Epi (test code = UA Sq Epi) Few /LPF [facility] AND [id number] 22:21:00 Test Item Value Reference Range Interpretation Comments UA WBC (test code = UA WBC) 0-2 /HPF [facility] AND [id number] 22:21:00 Test Item Value Reference Range Interpretation Comments UA pH (test code = UA pH) 8.0 1 5.0-8.0 [facility] AND [id number] 22:21:00 Test Item Value Reference Range Interpretation Comments UA Spec Grav (test code = UA Spec 1.015 1 Grav) [facility] AND [id number] 22:21:00 Test Item Value Reference Range Interpretation Comments UA Protein (test code Negative (12/21/15 5:21 = UA Protein) PM) [facility] AND [id number] 22:21:00 Test Item Value Reference Range Interpretation Comments UA Bili (test code = Negative *NA*(12/21/15 UA Bili) 5:21 PM) [facility] AND [id number] 22:21:00 Test Item Value Reference Range Interpretation Comments UA Glucose (test code Negative (12/21/15 5:21 = UA Glucose) PM) [facility] AND [id number] 22:21:00 Test Item Value Reference Range Interpretation Comments UA Leuk Est (test Negative (12/21/15 5:21 code = UA Leuk Est) PM) [facility] AND [id number] 22:21:00 Test Item Value Reference Range Interpretation Comments UA Blood (test code = Negative (12/21/15 5:21 UA Blood) PM) [facility] AND [id number] 22:21:00 Test Item Value Reference Range Interpretation Comments UA Ketones (test code = UA >=80 mg/dL Ketones) [facility] AND [id number] 22:21:00 Test Item Value Reference Range Interpretation Comments UA RBC (test code = 0-2 /HPF See_Comment [Automa daphne message] The UA RBC) system which ge nerated this result tra nsmitted reference range : <=2. The reference range was not used to interpr et this result as fatuma l/abnormal. [facility] AND [id number] 22:21:00 Test Item Value Reference Range Interpretation Comments UA Bacteria (test code = UA Occasional /HPF Bacteria) [facility] [id number] 22:21:00 Test Item Value Reference Range Interpretation Comments UA Mucus (test code = See Note (12/21/15 5:21 UA Mucus) PM) [facility] [id number] 22:21:00 Test Item Value Reference Range Interpretation Comments U Preg (test code = U Negative (12/21/15 5:21 Preg) PM) [facility] [id number] 22:21:00 Test Item Value Reference Range Interpretation Comments UA Color (test code = Yellow *NA*(12/21/15 UA Color) 5:21 PM) [facility] [id number] 22:21:00 Test Item Value Reference Range Interpretation Comments UA Turbidity (test code = Clear (12/21/15 5:21 UA Turbidity) PM) [facility] [id number] 22:21:00 Test Item Value Reference Range Interpretation Comments UA Urobilinogen (test code = UA 0.2 0.1-1.0 Urobilinogen) [facility] [facility] [id number] 22:21:00 Test Item Value Reference Range Interpretation Comments UA Nitrite (test code Negative (12/21/15 5:21 = [facility]A Nitrite) PM) [facility] [id number] 22:21:00 Test Item Value Reference Range Interpretation Comments UA Sq Epi (test code = UA Sq Epi) Few /LPF [facility] [id number] 22:21:00 Test Item Value Reference Range Interpretation Comments UA WBC (test code = UA WBC) 0-2 /HPF [facility] [id number] 22:21:00 Test Item Value Reference Range Interpretation Comments UA pH (test code = UA pH) 8.0 1 5.0-8.0 [facility] [id number] 22:21:00 Test Item Value Reference Range Interpretation Comments UA Spec Grav (test code = UA Spec 1.015 1 Grav) [facility] [id number] 22:21:00 Test Item Value Reference Range Interpretation Comments UA Protein (test code Negative (12/21/15 5:21 = UA Protein) PM) [facility] [id number] 22:21:00 Test Item Value Reference Range Interpretation Comments UA Bili (test code = Negative *NA*(12/21/15 UA Bili) 5:21 PM) [facility] [id number] 22:21:00 Test Item Value Reference Range Interpretation Comments UA Glucose (test code Negative (12/21/15 5:21 = UA Glucose) PM) [facility] [id number] 22:21:00 Test Item Value Reference Range Interpretation Comments UA Leuk Est (test Negative (12/21/15 5:21 code = UA Leuk Est) PM) [facility] [id number] 22:21:00 Test Item Value Reference Range Interpretation Comments UA Blood (test code = Negative (12/21/15 5:21 UA Blood) PM) [facility] [id number] 22:21:00 Test Item Value Reference Range Interpretation Comments UA Ketones (test code = UA >=80 mg/dL Ketones) [facility] [id number] 22:21:00 Test Item Value Reference Range Interpretation Comments UA RBC (test code = 0-2 /HPF See_Comment [Automa daphne message] The UA RBC) system which ge nerated this result tra nsmitted reference range : <=2. The reference range was not used to interpr et this result as fatuma l/abnormal. [facility] [id number] 22:21:00 Test Item Value Reference Range Interpretation Comments UA Bacteria (test code = UA Occasional /HPF Bacteria) [facility] [id number] 22:21:00 Test Item Value Reference Range Interpretation Comments UA Mucus (test code = See Note (12/21/15 5:21 UA Mucus) PM) [facility] [id number] 22:21:00 Test Item Value Reference Range Interpretation Comments U Preg (test code = U Negative (12/21/15 5:21 Preg) PM) [facility] [id number] 22:21:00 Test Item Value Reference Range Interpretation Comments UA Color (test code = Yellow *NA*(12/21/15 UA Color) 5:21 PM) [facility] [id number] 22:21:00 Test Item Value Reference Range Interpretation Comments UA Turbidity (test code = Clear (12/21/15 5:21 UA Turbidity) PM) [facility] AND [id number] 22:21:00 Test Item Value Reference Range Interpretation Comments UA Urobilinogen (test code = UA 0.2 0.1-1.0 Urobilinogen) [facility] AND [id number] 22:21:00 Test Item Value Reference Range Interpretation Comments UA Nitrite (test code Negative (12/21/15 5:21 = UA Nitrite) PM) [facility] AND [id number] 22:21:00 Test Item Value Reference Range Interpretation Comments UA Sq Epi (test code = UA Sq Epi) Few /LPF [facility] AND [id number] 22:21:00 Test Item Value Reference Range Interpretation Comments UA WBC (test code = UA WBC) 0-2 /HPF [facility] AND [id number] 22:21:00 Test Item Value Reference Range Interpretation Comments UA pH (test code = UA pH) 8.0 1 5.0-8.0 [facility] AND [id number] 22:21:00 Test Item Value Reference Range Interpretation Comments UA Spec Grav (test code = UA Spec 1.015 1 Grav) [facility] AND [id number] 22:21:00 Test Item Value Reference Range Interpretation Comments UA Protein (test code Negative (12/21/15 5:21 = UA Protein) PM) [facility] AND [id number] 22:21:00 Test Item Value Reference Range Interpretation Comments UA Bili (test code = Negative *NA*(12/21/15 UA Bili) 5:21 PM) [facility] AND [id number] 22:21:00 Test Item Value Reference Range Interpretation Comments UA Glucose (test code Negative (12/21/15 5:21 = UA Glucose) PM) [facility] AND [id number] 22:21:00 Test Item Value Reference Range Interpretation Comments UA Leuk Est (test Negative (12/21/15 5:21 code = UA Leuk Est) PM) [facility] AND [id number] 22:21:00 Test Item Value Reference Range Interpretation Comments UA Blood (test code = Negative (12/21/15 5:21 UA Blood) PM) [facility] [id number] 22:21:00 Test Item Value Reference Range Interpretation Comments UA Ketones (test code = UA >=80 mg/dL Ketones) [facility] [id number] 22:21:00 Test Item Value Reference Range Interpretation Comments UA RBC (test code = 0-2 /HPF See_Comment [Automa daphne message] The UA RBC) system which ge nerated this result tra nsmitted reference range : <=2. The reference range was not used to interpr et this result as fatuma l/abnormal. [facility] [id number] 22:21:00 Test Item Value Reference Range Interpretation Comments UA Bacteria (test code = UA Occasional /HPF Bacteria) [facility] [id number] 22:21:00 Test Item Value Reference Range Interpretation Comments UA Mucus (test code = See Note (12/21/15 5:21 UA Mucus) PM) [facility] [id number] 22:21:00 Test Item Value Reference Range Interpretation Comments U Preg (test code = U Negative (12/21/15 5:21 Preg) PM) [facility] [id number] 21:21:00 Test Item Value Reference Range Interpretation Comments Lipase Lvl (test code = Lipase Lvl) 139 73-393 [facility] [id number] 21:21:00 Test Item Value Reference Range Interpretation Comments eGFR (test code = eGFR) 111 [facility] [id number] 21:21:00 Test Item Value Reference Range Interpretation Comments Albumin Lvl (test code = Albumin Lvl) 4.4 3.5-5.0 [facility] [id number] 21:21:00 Test Item Value Reference Range Interpretation Comments ALANINE AMINOTRANSFERASE 26 See_Comment [A utomated message] (test code = ALANINE The sys tem which AMINOTRANSFERASE) generated this result transmitted ref erence range: <=65. Th e reference range was not used to int erpret this result as normal/abnormal . [facility] [id number] 21:21:00 Test Item Value Reference Range Interpretation Comments BUN (test code = BUN) 9 7-22 [facility] [id number] 21:21:00 Test Item Value Reference Range Interpretation Comments Glucose Lvl (test code = Glucose Lvl) 103 70-99 [facility]2016-07-10 21:21:00 Test Item Value Reference Range Interpretation Comments Alk Phos (test code = Alk Phos) 91 39-136 [facility]2016-07-10 21:21:00 Test Item Value Reference Range Interpretation Comments Creatinine Lvl (test code = Creatinine 0.74 0.50-1.40 Lvl) [facility]2016-07-10 21:21:00 Test Item Value Reference Range Interpretation Comments ASPARTATE TRANSAMINASE 23 See_Comment [Aut omated message] (test code = ASPARTATE The s ystem which TRANSAMINASE) generated this result transmitted ref erence range: <=37. Th e reference range was not used to interpr et this result as normal/abnormal . [facility]2016-07-10 21:21:00 Test Item Value Reference Range Interpretation Comments Total Protein (test code = Total 8.4 6.4-8.4 Protein) [facility]2016-07-10 21:21:00 Test Item Value Reference Range Interpretation Comments Chloride Lvl (test code = Chloride Lvl) 104 95-109 [facility]2016-07-10 21:21:00 Test Item Value Reference Range Interpretation Comments Potassium Lvl (test code = Potassium 3.9 3.5-5.1 Lvl) [facility]2016-07-10 21:21:00 Test Item Value Reference Range Interpretation Comments Sodium Lvl (test code = Sodium Lvl) 136 135-145 [facility]2016-07-10 21:21:00 Test Item Value Reference Range Interpretation Comments Bili Total (test code = Bili Total) 0.6 0.2-1.3 [facility]2016-07-10 21:21:00 Test Item Value Reference Range Interpretation Comments Calcium Lvl (test code = Calcium Lvl) 8.8 8.5-10.5 [facility]2016-07-10 21:21:00 Test Item Value Reference Range Interpretation Comments CO2 (test code = CO2) 20 24-32 [facility]2016-07-10 21:21:00 Test Item Value Reference Range Interpretation Comments A/G Ratio (test code = A/G Ratio) 1.1 0.7-1.6 [facility]2016-07-10 21:21:00 Test Item Value Reference Range Interpretation Comments Globulin (test code = Globulin) 4.0 2.0-4.0 [facility]2016-07-10 21:21:00 Test Item Value Reference Range Interpretation Comments B/C Ratio (test code = B/C Ratio) 12 6-25 [facility]2016-07-10 21:21:00 Test Item Value Reference Range Interpretation Comments AGAP (test code = AGAP) 15.9 10.0-20.0 [id number] 21:21:00 Test Item Value Reference Range Interpretation Comments Lymphocytes # (test code = Lymphocytes 2.5 1.0-5.5 #) [id number] 21:21:00 Test Item Value Reference Range Interpretation Comments Basophils # (test code 0.1 See_Comment [Aut omated message] The = Basophils #) system which generated this result tra nsmitted reference range : <=0.2. The reference r bertha was not used to int erpret this result as normal/abnormal . [facility] HospitalUkwhlrtPUPITWBXHM9480-10-30 21:21:00 Test Item Value Reference Range Interpretation Comments Monocytes # (test code 0.8 See_Comment [Aut omated message] The = Monocytes #) system which generated this result tra nsmitted reference range : <=0.8. The reference r bertha was not used to int erpret this result as normal/abnormal . [facility] HospitalAwpppsgDVSTGCULRW7264-68-38 21:21:00 Test Item Value Reference Range Interpretation Comments Monocytes (test code = Monocytes) 5.1 2.0-12.0 [facility] Hos[id number] 21:21:00 Test Item Value Reference Range Interpretation Comments Lymphocytes (test code = Lymphocytes) 15.3 20.0-40.0 [facility] Ho[id number] 21:21:00 Test Item Value Reference Range Interpretation Comments Eosinophils (test code = 0.1 See_Comment [A utomated message] The Eosinophils) system which ge nerated this result tra nsmitted reference range : <=4.0. The reference r bertha was not used to int erpret this result as normal/abnormal . [facility] H[id number] 21:21:00 Test Item Value Reference Range Interpretation Comments Segs-Bands # (test code = Segs-Bands #) 13.1 1.5-8.1 [facility] H[id number] 21:21:00 Test Item Value Reference Range Interpretation Comments Basophils (test code = 0.6 See_Comment [Aut omated message] The Basophils) system which ge nerated this result tra nsmitted reference range : <=1.0. The reference r bertha was not used to int erpret this result as normal/abnormal . [facility] HospitalYcnksehPKILNWYVWY7241-91-13 21:21:00 Test Item Value Reference Range Interpretation Comments Segs (test code = Segs) 78.9 45.0-75.0 [facility] Hospit[id number] 21:21:00 Test Item Value Reference Range Interpretation Comments MPV (test code = MPV) 7.8 7.4-10.4 [facility] HospitalAguuyfvKVWLQIKKFX2268-91-30 21:21:00 Test Item Value Reference Range Interpretation Comments MCH (test code = MCH) 26.3 pg 27.0-31.0 [facility] Hospit[id number] 21:21:00 Test Item Value Reference Range Interpretation Comments RDW (test code = RDW) 18.0 11.5-14.5 [facility] H[id number] 21:21:00 Test Item Value Reference Range Interpretation Comments MCHC (test code = MCHC) 32.6 32.0-36.0 [facility] HospitalEciovjxJAUNDBMIYE8526-54-18 21:21:00 Test Item Value Reference Range Interpretation Comments Platelet (test code = Platelet) 497 133-450 [facility] HospitalEttgbmaNMEAQYBEZB4672-12-50 21:21:00 Test Item Value Reference Range Interpretation Comments WBC X 10x3 (test code = WBC X 10x3) 16.6 3.7-10.4 [facility] H[id number] 21:21:00 Test Item Value Reference Range Interpretation Comments RBC X 10x6 (test code = RBC X 10x6) 4.76 4.20-5.40 [facility] HospitalAdtxeizTOLPESYIOU1841-88-19 21:21:00 Test Item Value Reference Range Interpretation Comments Hgb (test code = Hgb) 12.5 12.0-16.0 [facility] HospitalXiwuwvyDLBMTZJGDX3294-06-13 21:21:00 Test Item Value Reference Range Interpretation Comments Hct (test code = Hct) 38.3 36.0-48.0 [facility] HospitalZypvqocIOBGZNRCCQ0027-79-49 21:21:00 Test Item Value Reference Range Interpretation Comments MCV (test code = MCV) 80.5 80.0-98.0 [facility]2016-07-10 21:21:00 Test Item Value Reference Range Interpretation Comments Lipase Lvl (test code = Lipase Lvl) 139 73-393 [facility]2016-07-10 21:21:00 Test Item Value Reference Range Interpretation Comments eGFR (test code = eGFR) 111 [facility]2016-07-10 21:21:00 Test Item Value Reference Range Interpretation Comments Albumin Lvl (test code = Albumin Lvl) 4.4 3.5-5.0 [facility]2016-07-10 21:21:00 Test Item Value Reference Range Interpretation Comments ALANINE AMINOTRANSFERASE 26 See_Comment [A utomated message] (test code = ALANINE The sys tem which AMINOTRANSFERASE) generated this result transmitted ref erence range: <=65. Th e reference range was not used to int erpret this result as normal/abnormal . [facility]2016-07-10 21:21:00 Test Item Value Reference Range Interpretation Comments BUN (test code = BUN) 9 7-22 [facility]2016-07-10 21:21:00 Test Item Value Reference Range Interpretation Comments Glucose Lvl (test code = Glucose Lvl) 103 70-99 [facility]2016-07-10 21:21:00 Test Item Value Reference Range Interpretation Comments Alk Phos (test code = Alk Phos) 91 39-136 [facility]2016-07-10 21:21:00 Test Item Value Reference Range Interpretation Comments Creatinine Lvl (test code = Creatinine 0.74 0.50-1.40 Lvl) [facility]2016-07-10 21:21:00 Test Item Value Reference Range Interpretation Comments ASPARTATE TRANSAMINASE 23 See_Comment [Aut omated message] (test code = ASPARTATE The s ystem which TRANSAMINASE) generated this result transmitted ref erence range: <=37. Th e reference range was not used to interpr et this result as normal/abnormal . [facility]2016-07-10 21:21:00 Test Item Value Reference Range Interpretation Comments Total Protein (test code = Total 8.4 6.4-8.4 Protein) [facility]2016-07-10 21:21:00 Test Item Value Reference Range Interpretation Comments Chloride Lvl (test code = Chloride Lvl) 104 95-109 [facility]2016-07-10 21:21:00 Test Item Value Reference Range Interpretation Comments Potassium Lvl (test code = Potassium 3.9 3.5-5.1 Lvl) [facility]2016-07-10 21:21:00 Test Item Value Reference Range Interpretation Comments Sodium Lvl (test code = Sodium Lvl) 136 135-145 [facility]2016-07-10 21:21:00 Test Item Value Reference Range Interpretation Comments Bili Total (test code = Bili Total) 0.6 0.2-1.3 [facility]2016-07-10 21:21:00 Test Item Value Reference Range Interpretation Comments Calcium Lvl (test code = Calcium Lvl) 8.8 8.5-10.5 [facility]2016-07-10 21:21:00 Test Item Value Reference Range Interpretation Comments CO2 (test code = CO2) 20 24-32 [facility]2016-07-10 21:21:00 Test Item Value Reference Range Interpretation Comments A/G Ratio (test code = A/G Ratio) 1.1 0.7-1.6 [facility]2016-07-10 21:21:00 Test Item Value Reference Range Interpretation Comments Globulin (test code = Globulin) 4.0 2.0-4.0 [facility]2016-07-10 21:21:00 Test Item Value Reference Range Interpretation Comments B/C Ratio (test code = B/C Ratio) 12 6-25 [facility]2016-07-10 21:21:00 Test Item Value Reference Range Interpretation Comments AGAP (test code = AGAP) 15.9 10.0-20.0 [facility] Hospit[id number] 21:21:00 Test Item Value Reference Range Interpretation Comments Lymphocytes # (test code = Lymphocytes 2.5 1.0-5.5 #) [facility] HospitalTtfhkibHBEJPAXAAV2802-18-68 21:21:00 Test Item Value Reference Range Interpretation Comments Basophils # (test code 0.1 See_Comment [Aut omated message] The = Basophils #) system which generated this result tra nsmitted reference range : <=0.2. The reference r bertha was not used to int erpret this result as normal/abnormal . [facility] HospitalCtpozriODFSONNDLE8907-78-79 21:21:00 Test Item Value Reference Range Interpretation Comments Monocytes # (test code 0.8 See_Comment [Aut omated message] The = Monocytes #) system which generated this result tra nsmitted reference range : <=0.8. The reference r bertha was not used to int erpret this result as normal/abnormal . [facility] HospitalBtlxgrbNSGNOQEBSN9327-52-00 21:21:00 Test Item Value Reference Range Interpretation Comments Monocytes (test code = Monocytes) 5.1 2.0-12.0 [facility] HospitalTbguubdSLMICQZHJZ4995-74-69 21:21:00 Test Item Value Reference Range Interpretation Comments Lymphocytes (test code = Lymphocytes) 15.3 20.0-40.0 [facility] HospitalHyhfskuVPHJEUASIJ1306-09-70 21:21:00 Test Item Value Reference Range Interpretation Comments Eosinophils (test code = 0.1 See_Comment [A utomated message] The Eosinophils) system which ge nerated this result tra nsmitted reference range : <=4.0. The reference r bertha was not used to int erpret this result as normal/abnormal . [facility] HospitalXcvmbxyWKMIOXNKBP8846-17-74 21:21:00 Test Item Value Reference Range Interpretation Comments Segs-Bands # (test code = Segs-Bands #) 13.1 1.5-8.1 [facility] HospitalVwmsraiUJUCYKARKC4874-60-60 21:21:00 Test Item Value Reference Range Interpretation Comments Basophils (test code = 0.6 See_Comment [Aut omated message] The Basophils) system which ge nerated this result tra nsmitted reference range : <=1.0. The reference r bertha was not used to int erpret this result as normal/abnormal . [facility] HospitalEwibmweYVNUGYEHET1125-59-50 21:21:00 Test Item Value Reference Range Interpretation Comments Segs (test code = Segs) 78.9 45.0-75.0 [facility] HospitalRniidduTVJYRLGYFE3546-24-21 21:21:00 Test Item Value Reference Range Interpretation Comments MPV (test code = MPV) 7.8 7.4-10.4 [facility] HospitalUqlwjqaLHLMQUQAVX1108-22-81 21:21:00 Test Item Value Reference Range Interpretation Comments MCH (test code = MCH) 26.3 pg 27.0-31.0 [facility] HospitalMhdmrmwTMLAAZQMXZ0332-99-15 21:21:00 Test Item Value Reference Range Interpretation Comments RDW (test code = RDW) 18.0 11.5-14.5 [facility] HospitalVrqkceoCLTBZQRLBU9981-56-35 21:21:00 Test Item Value Reference Range Interpretation Comments MCHC (test code = MCHC) 32.6 32.0-36.0 [facility] HospitalIaqgnhbEWUPRPRJRO8224-84-54 21:21:00 Test Item Value Reference Range Interpretation Comments Platelet (test code = Platelet) 497 133-450 [facility] HospitalHmkdiehUZCDALOLLR4451-76-44 21:21:00 Test Item Value Reference Range Interpretation Comments WBC X 10x3 (test code = WBC X 10x3) 16.6 3.7-10.4 [facility] HospitalEcjqllnRIARKSTFRO1212-30-92 21:21:00 Test Item Value Reference Range Interpretation Comments RBC X 10x6 (test code = RBC X 10x6) 4.76 4.20-5.40 [facility] HospitalRdgnqkdEGHDPUWKJG6742-35-23 21:21:00 Test Item Value Reference Range Interpretation Comments Hgb (test code = Hgb) 12.5 12.0-16.0 [facility] HospitalBzuqspaNGZLHSEURF5500-82-94 21:21:00 Test Item Value Reference Range Interpretation Comments Hct (test code = Hct) 38.3 36.0-48.0 [facility] HospitalWpsetxyTUYAYPXVBE7656-41-71 21:21:00 Test Item Value Reference Range Interpretation Comments MCV (test code = MCV) 80.5 80.0-98.0 [facility]2016-07-10 21:21:00 Test Item Value Reference Range Interpretation Comments Lipase Lvl (test code = Lipase Lvl) 139 73-393 [facility]2016-07-10 21:21:00 Test Item Value Reference Range Interpretation Comments eGFR (test code = eGFR) 111 [facility]2016-07-10 21:21:00 Test Item Value Reference Range Interpretation Comments Albumin Lvl (test code = Albumin Lvl) 4.4 3.5-5.0 [facility]2016-07-10 21:21:00 Test Item Value Reference Range Interpretation Comments ALANINE AMINOTRANSFERASE 26 See_Comment [A utomated message] (test code = ALANINE The sys tem which AMINOTRANSFERASE) generated this result transmitted ref erence range: <=65. Th e reference range was not used to int erpret this result as normal/abnormal . [facility]2016-07-10 21:21:00 Test Item Value Reference Range Interpretation Comments BUN (test code = BUN) 9 7-22 [facility]2016-07-10 21:21:00 Test Item Value Reference Range Interpretation Comments Glucose Lvl (test code = Glucose Lvl) 103 70-99 [facility]2016-07-10 21:21:00 Test Item Value Reference Range Interpretation Comments Alk Phos (test code = Alk Phos) 91 39-136 [facility]2016-07-10 21:21:00 Test Item Value Reference Range Interpretation Comments Creatinine Lvl (test code = Creatinine 0.74 0.50-1.40 Lvl) [facility]2016-07-10 21:21:00 Test Item Value Reference Range Interpretation Comments ASPARTATE TRANSAMINASE 23 See_Comment [Aut omated message] (test code = ASPARTATE The s ystem which TRANSAMINASE) generated this result transmitted ref erence range: <=37. Th e reference range was not used to interpr et this result as normal/abnormal . [facility]2016-07-10 21:21:00 Test Item Value Reference Range Interpretation Comments Total Protein (test code = Total 8.4 6.4-8.4 Protein) [facility]2016-07-10 21:21:00 Test Item Value Reference Range Interpretation Comments Chloride Lvl (test code = Chloride Lvl) 104 95-109 [facility]2016-07-10 21:21:00 Test Item Value Reference Range Interpretation Comments Potassium Lvl (test code = Potassium 3.9 3.5-5.1 Lvl) [facility]2016-07-10 21:21:00 Test Item Value Reference Range Interpretation Comments Sodium Lvl (test code = Sodium Lvl) 136 135-145 [facility]2016-07-10 21:21:00 Test Item Value Reference Range Interpretation Comments Bili Total (test code = Bili Total) 0.6 0.2-1.3 [facility]2016-07-10 21:21:00 Test Item Value Reference Range Interpretation Comments Calcium Lvl (test code = Calcium Lvl) 8.8 8.5-10.5 [facility]2016-07-10 21:21:00 Test Item Value Reference Range Interpretation Comments CO2 (test code = CO2) 20 24-32 [facility]2016-07-10 21:21:00 Test Item Value Reference Range Interpretation Comments A/G Ratio (test code = A/G Ratio) 1.1 0.7-1.6 [facility]2016-07-10 21:21:00 Test Item Value Reference Range Interpretation Comments Globulin (test code = Globulin) 4.0 2.0-4.0 [facility]2016-07-10 21:21:00 Test Item Value Reference Range Interpretation Comments B/C Ratio (test code = B/C Ratio) 12 6-25 [facility]2016-07-10 21:21:00 Test Item Value Reference Range Interpretation Comments AGAP (test code = AGAP) 15.9 10.0-20.0 [facility] HospitalVzpudpiRQGZVTATXD1589-35-25 21:21:00 Test Item Value Reference Range Interpretation Comments Lymphocytes # (test code = Lymphocytes 2.5 1.0-5.5 #) [facility] HospitalMvjyeowSDRUKOGXTM5718-57-29 21:21:00 Test Item Value Reference Range Interpretation Comments Basophils # (test code 0.1 See_Comment [Aut omated message] The = Basophils #) system which generated this result tra nsmitted reference range : <=0.2. The reference r bertha was not used to int erpret this result as normal/abnormal . [facility]EfsvssjTNBLHVWBJS1528-68-35 21:21:00 Test Item Value Reference Range Interpretation Comments Monocytes # (test code 0.8 See_Comment [Aut omated message] The = Monocytes #) system which generated this result tra nsmitted reference range : <=0.8. The reference r bertha was not used to int erpret this result as normal/abnormal . [facility] HospitalHioetnxWOSFTIVZAO1767-39-48 21:21:00 Test Item Value Reference Range Interpretation Comments Monocytes (test code = Monocytes) 5.1 2.0-12.0 [facility] HospitalLbbfeasPGEGTYNFQM4116-44-91 21:21:00 Test Item Value Reference Range Interpretation Comments Lymphocytes (test code = Lymphocytes) 15.3 20.0-40.0 [facility] HospitalCdkengsVOWLPRWSSE9124-97-60 21:21:00 Test Item Value Reference Range Interpretation Comments Eosinophils (test code = 0.1 See_Comment [A utomated message] The Eosinophils) system which ge nerated this result tra nsmitted reference range : <=4.0. The reference r bertha was not used to int erpret this result as normal/abnormal . [facility] HospitalYiajxdbVWPZDDKVFT0688-34-20 21:21:00 Test Item Value Reference Range Interpretation Comments Segs-Bands # (test code = Segs-Bands #) 13.1 1.5-8.1 [facility] HospitalMksowcqLVGMYBSUKC6268-22-55 21:21:00 Test Item Value Reference Range Interpretation Comments Basophils (test code = 0.6 See_Comment [Aut omated message] The Basophils) system which ge nerated this result tra nsmitted reference range : <=1.0. The reference r bertha was not used to int erpret this result as normal/abnormal . [facility] HospitalZsmdjzuBDJZLAESYY8658-12-68 21:21:00 Test Item Value Reference Range Interpretation Comments Segs (test code = Segs) 78.9 45.0-75.0 [facility] HospitalQsvecbcMCEKVDTERS3912-17-37 21:21:00 Test Item Value Reference Range Interpretation Comments MPV (test code = MPV) 7.8 7.4-10.4 [facility] HospitalJuubrlaUVUIGUKNVV4179-42-19 21:21:00 Test Item Value Reference Range Interpretation Comments MCH (test code = MCH) 26.3 pg 27.0-31.0 [facility] HospitalDlkqxicOEZIFYKEKP0949-53-89 21:21:00 Test Item Value Reference Range Interpretation Comments RDW (test code = RDW) 18.0 11.5-14.5 [facility] HospitalKiccrctICPQFDQRRL2581-93-68 21:21:00 Test Item Value Reference Range Interpretation Comments MCHC (test code = MCHC) 32.6 32.0-36.0 [facility] HospitalPywiqrqOXJMZBCNDF1878-24-85 21:21:00 Test Item Value Reference Range Interpretation Comments Platelet (test code = Platelet) 497 133-450 [facility] HospitalJeweyhgWUTUOJZHMM0395-28-20 21:21:00 Test Item Value Reference Range Interpretation Comments WBC X 10x3 (test code = WBC X 10x3) 16.6 3.7-10.4 [facility] HospitalDbbnvrnUUBHTAMHMR9358-36-08 21:21:00 Test Item Value Reference Range Interpretation Comments RBC X 10x6 (test code = RBC X 10x6) 4.76 4.20-5.40 [facility] HospitalVmyolniNLMJMZDVIG0311-40-63 21:21:00 Test Item Value Reference Range Interpretation Comments Hgb (test code = Hgb) 12.5 12.0-16.0 [facility] HospitalBiijnrnKEZEDQMGWR1031-39-61 21:21:00 Test Item Value Reference Range Interpretation Comments Hct (test code = Hct) 38.3 36.0-48.0 [facility] HospitalJqikkprUIYBFFSTBA3751-64-27 21:21:00 Test Item Value Reference Range Interpretation Comments MCV (test code = MCV) 80.5 80.0-98.0 [facility]2016-07-10 21:21:00 Test Item Value Reference Range Interpretation Comments Lipase Lvl (test code = Lipase Lvl) 139 73-393 [facility]2016-07-10 21:21:00 Test Item Value Reference Range Interpretation Comments eGFR (test code = eGFR) 111 [facility]2016-07-10 21:21:00 Test Item Value Reference Range Interpretation Comments Albumin Lvl (test code = Albumin Lvl) 4.4 3.5-5.0 [facility]2016-07-10 21:21:00 Test Item Value Reference Range Interpretation Comments ALANINE AMINOTRANSFERASE 26 See_Comment [A utomated message] (test code = ALANINE The sys tem which AMINOTRANSFERASE) generated this result transmitted ref erence range: <=65. Th e reference range was not used to int erpret this result as normal/abnormal . [facility]2016-07-10 21:21:00 Test Item Value Reference Range Interpretation Comments BUN (test code = BUN) 9 7-22 [facility]2016-07-10 21:21:00 Test Item Value Reference Range Interpretation Comments Glucose Lvl (test code = Glucose Lvl) 103 70-99 [facility]2016-07-10 21:21:00 Test Item Value Reference Range Interpretation Comments Alk Phos (test code = Alk Phos) 91 39-136 [facility]2016-07-10 21:21:00 Test Item Value Reference Range Interpretation Comments Creatinine Lvl (test code = Creatinine 0.74 0.50-1.40 Lvl) [facility]2016-07-10 21:21:00 Test Item Value Reference Range Interpretation Comments ASPARTATE TRANSAMINASE 23 See_Comment [Aut omated message] (test code = ASPARTATE The s ystem which TRANSAMINASE) generated this result transmitted ref erence range: <=37. Th e reference range was not used to interpr et this result as normal/abnormal . [facility]2016-07-10 21:21:00 Test Item Value Reference Range Interpretation Comments Total Protein (test code = Total 8.4 6.4-8.4 Protein) [facility]2016-07-10 21:21:00 Test Item Value Reference Range Interpretation Comments Chloride Lvl (test code = Chloride Lvl) 104 95-109 [facility]2016-07-10 21:21:00 Test Item Value Reference Range Interpretation Comments Potassium Lvl (test code = Potassium 3.9 3.5-5.1 Lvl) [facility]2016-07-10 21:21:00 Test Item Value Reference Range Interpretation Comments Sodium Lvl (test code = Sodium Lvl) 136 135-145 [facility]2016-07-10 21:21:00 Test Item Value Reference Range Interpretation Comments Bili Total (test code = Bili Total) 0.6 0.2-1.3 [facility]2016-07-10 21:21:00 Test Item Value Reference Range Interpretation Comments Calcium Lvl (test code = Calcium Lvl) 8.8 8.5-10.5 [facility]2016-07-10 21:21:00 Test Item Value Reference Range Interpretation Comments CO2 (test code = CO2) 20 24-32 [facility]2016-07-10 21:21:00 Test Item Value Reference Range Interpretation Comments A/G Ratio (test code = A/G Ratio) 1.1 0.7-1.6 [facility]2016-07-10 21:21:00 Test Item Value Reference Range Interpretation Comments Globulin (test code = Globulin) 4.0 2.0-4.0 [facility]2016-07-10 21:21:00 Test Item Value Reference Range Interpretation Comments B/C Ratio (test code = B/C Ratio) 12 6-25 [facility]2016-07-10 21:21:00 Test Item Value Reference Range Interpretation Comments AGAP (test code = AGAP) 15.9 10.0-20.0 [facility] HospitalAdghzkdYBXHKFZUCE4779-58-26 21:21:00 Test Item Value Reference Range Interpretation Comments Lymphocytes # (test code = Lymphocytes 2.5 1.0-5.5 #) [facility] HospitalCjlwbjhJBDCSNTXLS2904-89-51 21:21:00 Test Item Value Reference Range Interpretation Comments Basophils # (test code 0.1 See_Comment [Aut omated message] The = Basophils #) system which generated this result tra nsmitted reference range : <=0.2. The reference r bertha was not used to int erpret this result as normal/abnormal . [facility] HospitalFhvfennICFCQOMXRB3212-34-55 21:21:00 Test Item Value Reference Range Interpretation Comments Monocytes # (test code 0.8 See_Comment [Aut omated message] The = Monocytes #) system which generated this result tra nsmitted reference range : <=0.8. The reference r bertha was not used to int erpret this result as normal/abnormal . [facility] HospitalAxzjbjpKFDTTCDNSX7955-81-65 21:21:00 Test Item Value Reference Range Interpretation Comments Monocytes (test code = Monocytes) 5.1 2.0-12.0 [facility] HospitalVuglcjbFEWMWUKWVG9824-36-83 21:21:00 Test Item Value Reference Range Interpretation Comments Lymphocytes (test code = Lymphocytes) 15.3 20.0-40.0 [facility] HospitalOthiaikWCTJWTYCVF3298-65-01 21:21:00 Test Item Value Reference Range Interpretation Comments Eosinophils (test code = 0.1 See_Comment [A utomated message] The Eosinophils) system which ge nerated this result tra nsmitted reference range : <=4.0. The reference r bertha was not used to int erpret this result as normal/abnormal . [facility] HospitalAoiymeiBPOOTMZANP5295-73-61 21:21:00 Test Item Value Reference Range Interpretation Comments Segs-Bands # (test code = Segs-Bands #) 13.1 1.5-8.1 [facility] HospitalTkwuwfwTFTJOMEQEF9225-75-85 21:21:00 Test Item Value Reference Range Interpretation Comments Basophils (test code = 0.6 See_Comment [Aut omated message] The Basophils) system which ge nerated this result tra nsmitted reference range : <=1.0. The reference r bertha was not used to int erpret this result as normal/abnormal . [facility] HospitalEqzppffFLUOZDEJAT5722-48-60 21:21:00 Test Item Value Reference Range Interpretation Comments Segs (test code = Segs) 78.9 45.0-75.0 [facility] HospitalYngyywdFBRDNWOOXC6683-69-77 21:21:00 Test Item Value Reference Range Interpretation Comments MPV (test code = MPV) 7.8 7.4-10.4 [facility] HospitalRkypzjbZPOAXCWOKI9117-27-34 21:21:00 Test Item Value Reference Range Interpretation Comments MCH (test code = MCH) 26.3 pg 27.0-31.0 [facility] HospitalUowyldaEEAQCWVTMB5726-83-20 21:21:00 Test Item Value Reference Range Interpretation Comments RDW (test code = RDW) 18.0 11.5-14.5 [facility] HospitalWqilhdqUXBYMWKGXC2469-32-46 21:21:00 Test Item Value Reference Range Interpretation Comments MCHC (test code = MCHC) 32.6 32.0-36.0 [facility] HospitalVfpmsmzPLSHJVYPXK7691-36-39 21:21:00 Test Item Value Reference Range Interpretation Comments Platelet (test code = Platelet) 497 133-450 [facility] HospitalJipdkniLQGHSXJZZT7303-74-99 21:21:00 Test Item Value Reference Range Interpretation Comments WBC X 10x3 (test code = WBC X 10x3) 16.6 3.7-10.4 [facility] HospitalRszdbtcWWYNTBAYTI6488-07-76 21:21:00 Test Item Value Reference Range Interpretation Comments RBC X 10x6 (test code = RBC X 10x6) 4.76 4.20-5.40 [facility] HospitalUdynuhlGNPSJSLXUN1673-58-08 21:21:00 Test Item Value Reference Range Interpretation Comments Hgb (test code = Hgb) 12.5 12.0-16.0 [facility] HospitalYiesrjwPYUBAOZLIC8975-05-22 21:21:00 Test Item Value Reference Range Interpretation Comments Hct (test code = Hct) 38.3 36.0-48.0 [facility] HospitalGexudcvVLHUGIRQLH2127-03-90 21:21:00 Test Item Value Reference Range Interpretation Comments MCV (test code = MCV) 80.5 80.0-98.0 [facility]2016-07-10 21:21:00 Test Item Value Reference Range Interpretation Comments Lipase Lvl (test code = Lipase Lvl) 139 73-393 [facility]2016-07-10 21:21:00 Test Item Value Reference Range Interpretation Comments eGFR (test code = eGFR) 111 [facility]2016-07-10 21:21:00 Test Item Value Reference Range Interpretation Comments Albumin Lvl (test code = Albumin Lvl) 4.4 3.5-5.0 [facility]2016-07-10 21:21:00 Test Item Value Reference Range Interpretation Comments ALANINE AMINOTRANSFERASE 26 See_Comment [A utomated message] (test code = ALANINE The sys tem which AMINOTRANSFERASE) generated this result transmitted ref erence range: <=65. Th e reference range was not used to int erpret this result as normal/abnormal . [facility]2016-07-10 21:21:00 Test Item Value Reference Range Interpretation Comments BUN (test code = BUN) 9 7-22 [facility]2016-07-10 21:21:00 Test Item Value Reference Range Interpretation Comments Glucose Lvl (test code = Glucose Lvl) 103 70-99 [facility]2016-07-10 21:21:00 Test Item Value Reference Range Interpretation Comments Alk Phos (test code = Alk Phos) 91 39-136 [facility]2016-07-10 21:21:00 Test Item Value Reference Range Interpretation Comments Creatinine Lvl (test code = Creatinine 0.74 0.50-1.40 Lvl) [facility]2016-07-10 21:21:00 Test Item Value Reference Range Interpretation Comments ASPARTATE TRANSAMINASE 23 See_Comment [Aut omated message] (test code = ASPARTATE The s ystem which TRANSAMINASE) generated this result transmitted ref erence range: <=37. Th e reference range was not used to interpr et this result as normal/abnormal . [facility]2016-07-10 21:21:00 Test Item Value Reference Range Interpretation Comments Total Protein (test code = Total 8.4 6.4-8.4 Protein) [facility]2016-07-10 21:21:00 Test Item Value Reference Range Interpretation Comments Chloride Lvl (test code = Chloride Lvl) 104 95-109 [facility]2016-07-10 21:21:00 Test Item Value Reference Range Interpretation Comments Potassium Lvl (test code = Potassium 3.9 3.5-5.1 Lvl) [facility]2016-07-10 21:21:00 Test Item Value Reference Range Interpretation Comments Sodium Lvl (test code = Sodium Lvl) 136 135-145 [facility]2016-07-10 21:21:00 Test Item Value Reference Range Interpretation Comments Bili Total (test code = Bili Total) 0.6 0.2-1.3 [facility]2016-07-10 21:21:00 Test Item Value Reference Range Interpretation Comments Calcium Lvl (test code = Calcium Lvl) 8.8 8.5-10.5 [facility]2016-07-10 21:21:00 Test Item Value Reference Range Interpretation Comments CO2 (test code = CO2) 20 24-32 [facility]2016-07-10 21:21:00 Test Item Value Reference Range Interpretation Comments A/G Ratio (test code = A/G Ratio) 1.1 0.7-1.6 [facility]2016-07-10 21:21:00 Test Item Value Reference Range Interpretation Comments Globulin (test code = Globulin) 4.0 2.0-4.0 [facility]2016-07-10 21:21:00 Test Item Value Reference Range Interpretation Comments B/C Ratio (test code = B/C Ratio) 12 6-25 [facility]2016-07-10 21:21:00 Test Item Value Reference Range Interpretation Comments AGAP (test code = AGAP) 15.9 10.0-20.0 [facility] HospitalJvirisrBKBLRWFMFL3969-92-23 21:21:00 Test Item Value Reference Range Interpretation Comments Lymphocytes # (test code = Lymphocytes 2.5 1.0-5.5 #) [facility] HospitalZztfbqaPVBGVSXJLM1792-30-45 21:21:00 Test Item Value Reference Range Interpretation Comments Basophils # (test code 0.1 See_Comment [Aut omated message] The = Basophils #) system which generated this result tra nsmitted reference range : <=0.2. The reference r bertha was not used to int erpret this result as normal/abnormal . [facility] HospitalHbovkbrXMOFXGNGEV4884-92-38 21:21:00 Test Item Value Reference Range Interpretation Comments Monocytes # (test code 0.8 See_Comment [Aut omated message] The = Monocytes #) system which generated this result tra nsmitted reference range : <=0.8. The reference r bertha was not used to int erpret this result as normal/abnormal . [facility] HospitalOoesdjhGFCAAJJNGT7324-85-64 21:21:00 Test Item Value Reference Range Interpretation Comments Monocytes (test code = Monocytes) 5.1 2.0-12.0 [facility] HospitalBedajtwOHVQKHLMIR8012-63-86 21:21:00 Test Item Value Reference Range Interpretation Comments Lymphocytes (test code = Lymphocytes) 15.3 20.0-40.0 [facility] HospitalDeqeifcCLJQSGTBPD5812-80-45 21:21:00 Test Item Value Reference Range Interpretation Comments Eosinophils (test code = 0.1 See_Comment [A utomated message] The Eosinophils) system which ge nerated this result tra nsmitted reference range : <=4.0. The reference r bertha was not used to int erpret this result as normal/abnormal . [facility] HospitalJtqhowmXSIBNTFMTR4334-46-94 21:21:00 Test Item Value Reference Range Interpretation Comments Segs-Bands # (test code = Segs-Bands #) 13.1 1.5-8.1 [facility] HospitalPtzwbmuFLUMGLOOQQ0489-21-11 21:21:00 Test Item Value Reference Range Interpretation Comments Basophils (test code = 0.6 See_Comment [Aut omated message] The Basophils) system which ge nerated this result tra nsmitted reference range : <=1.0. The reference r bertha was not used to int erpret this result as normal/abnormal . [facility] HospitalXpnckuvLLMNEVIGZW5558-33-28 21:21:00 Test Item Value Reference Range Interpretation Comments Segs (test code = Segs) 78.9 45.0-75.0 [facility] HospitalDaxeunqCLFXUCKUUR0502-48-81 21:21:00 Test Item Value Reference Range Interpretation Comments MPV (test code = MPV) 7.8 7.4-10.4 [facility] HospitalHsvtdeoCXXYRYLWDN5454-68-93 21:21:00 Test Item Value Reference Range Interpretation Comments MCH (test code = MCH) 26.3 pg 27.0-31.0 [facility] HospitalLxuknjoZEAIBEQRZO5011-14-91 21:21:00 Test Item Value Reference Range Interpretation Comments RDW (test code = RDW) 18.0 11.5-14.5 [facility] HospitalKkrerpgYKKPTENTCO1597-31-57 21:21:00 Test Item Value Reference Range Interpretation Comments MCHC (test code = MCHC) 32.6 32.0-36.0 [facility] HospitalFvmfrjvFRFHEXMYOR6916-89-77 21:21:00 Test Item Value Reference Range Interpretation Comments Platelet (test code = Platelet) 497 133-450 [facility] HospitalThzkejmMMLFCVBJCG6969-14-76 21:21:00 Test Item Value Reference Range Interpretation Comments WBC X 10x3 (test code = WBC X 10x3) 16.6 3.7-10.4 [facility] HospitalTfdvarkYIQYIKGLZV4397-80-45 21:21:00 Test Item Value Reference Range Interpretation Comments RBC X 10x6 (test code = RBC X 10x6) 4.76 4.20-5.40 [facility] HospitalRoogmoyESVGKNPSOM4533-06-05 21:21:00 Test Item Value Reference Range Interpretation Comments Hgb (test code = Hgb) 12.5 12.0-16.0 [facility] HospitalGcbftiuGGTFTXZWVI2365-59-11 21:21:00 Test Item Value Reference Range Interpretation Comments Hct (test code = Hct) 38.3 36.0-48.0 [facility] HospitalQqlxplaPSUFWNRYMC5650-21-74 21:21:00 Test Item Value Reference Range Interpretation Comments MCV (test code = MCV) 80.5 80.0-98.0 [facility]2016-07-10 21:21:00 Test Item Value Reference Range Interpretation Comments Lipase Lvl (test code = Lipase Lvl) 139 73-393 [facility]2016-07-10 21:21:00 Test Item Value Reference Range Interpretation Comments eGFR (test code = eGFR) 111 [facility]2016-07-10 21:21:00 Test Item Value Reference Range Interpretation Comments Albumin Lvl (test code = Albumin Lvl) 4.4 3.5-5.0 [facility]2016-07-10 21:21:00 Test Item Value Reference Range Interpretation Comments ALANINE AMINOTRANSFERASE 26 See_Comment [A utomated message] (test code = ALANINE The sys tem which AMINOTRANSFERASE) generated this result transmitted ref erence range: <=65. Th e reference range was not used to int erpret this result as normal/abnormal . [facility]2016-07-10 21:21:00 Test Item Value Reference Range Interpretation Comments BUN (test code = BUN) 9 7-22 [facility]2016-07-10 21:21:00 Test Item Value Reference Range Interpretation Comments Glucose Lvl (test code = Glucose Lvl) 103 70-99 [facility]2016-07-10 21:21:00 Test Item Value Reference Range Interpretation Comments Alk Phos (test code = Alk Phos) 91 39-136 [facility]2016-07-10 21:21:00 Test Item Value Reference Range Interpretation Comments Creatinine Lvl (test code = Creatinine 0.74 0.50-1.40 Lvl) [facility]2016-07-10 21:21:00 Test Item Value Reference Range Interpretation Comments ASPARTATE TRANSAMINASE 23 See_Comment [Aut omated message] (test code = ASPARTATE The s ystem which TRANSAMINASE) generated this result transmitted ref erence range: <=37. Th e reference range was not used to interpr et this result as normal/abnormal . [facility]2016-07-10 21:21:00 Test Item Value Reference Range Interpretation Comments Total Protein (test code = Total 8.4 6.4-8.4 Protein) [facility]2016-07-10 21:21:00 Test Item Value Reference Range Interpretation Comments Chloride Lvl (test code = Chloride Lvl) 104 95-109 [facility]2016-07-10 21:21:00 Test Item Value Reference Range Interpretation Comments Potassium Lvl (test code = Potassium 3.9 3.5-5.1 Lvl) [facility]2016-07-10 21:21:00 Test Item Value Reference Range Interpretation Comments Sodium Lvl (test code = Sodium Lvl) 136 135-145 [facility]2016-07-10 21:21:00 Test Item Value Reference Range Interpretation Comments Bili Total (test code = Bili Total) 0.6 0.2-1.3 [facility]2016-07-10 21:21:00 Test Item Value Reference Range Interpretation Comments Calcium Lvl (test code = Calcium Lvl) 8.8 8.5-10.5 [facility]2016-07-10 21:21:00 Test Item Value Reference Range Interpretation Comments CO2 (test code = CO2) 20 24-32 [facility]2016-07-10 21:21:00 Test Item Value Reference Range Interpretation Comments A/G Ratio (test code = A/G Ratio) 1.1 0.7-1.6 [facility]2016-07-10 21:21:00 Test Item Value Reference Range Interpretation Comments Globulin (test code = Globulin) 4.0 2.0-4.0 [facility]2016-07-10 21:21:00 Test Item Value Reference Range Interpretation Comments B/C Ratio (test code = B/C Ratio) 12 6-25 [facility]2016-07-10 21:21:00 Test Item Value Reference Range Interpretation Comments AGAP (test code = AGAP) 15.9 10.0-20.0 [facility] HospitalDdakaozFBKPMICOUP7037-09-33 21:21:00 Test Item Value Reference Range Interpretation Comments Lymphocytes # (test code = Lymphocytes 2.5 1.0-5.5 #) [facility] HospitalEmhladtWOIOVWSCTG4756-29-75 21:21:00 Test Item Value Reference Range Interpretation Comments Basophils # (test code 0.1 See_Comment [Aut omated message] The = Basophils #) system which generated this result tra nsmitted reference range : <=0.2. The reference r bertha was not used to int erpret this result as normal/abnormal . [facility] HospitalCdmaqfdXNZWMLFYIA6518-18-13 21:21:00 Test Item Value Reference Range Interpretation Comments Monocytes # (test code 0.8 See_Comment [Aut omated message] The = Monocytes #) system which generated this result tra nsmitted reference range : <=0.8. The reference r bertha was not used to int erpret this result as normal/abnormal . [facility] HospitalNqpcsdbCRPHEBQBWY9896-14-40 21:21:00 Test Item Value Reference Range Interpretation Comments Monocytes (test code = Monocytes) 5.1 2.0-12.0 [facility] HospitalNqwaljcMWQYNWJIHT7311-54-66 21:21:00 Test Item Value Reference Range Interpretation Comments Lymphocytes (test code = Lymphocytes) 15.3 20.0-40.0 [facility] HospitalLgluchpTTACLRLQSJ0581-91-60 21:21:00 Test Item Value Reference Range Interpretation Comments Eosinophils (test code = 0.1 See_Comment [A utomated message] The Eosinophils) system which ge nerated this result tra nsmitted reference range : <=4.0. The reference r bertha was not used to int erpret this result as normal/abnormal . [facility] HospitalVvagzsuKJMBJHEIVH4835-36-67 21:21:00 Test Item Value Reference Range Interpretation Comments Segs-Bands # (test code = Segs-Bands #) 13.1 1.5-8.1 [facility] HospitalVyoqyndFXLLMCVUHB8226-68-85 21:21:00 Test Item Value Reference Range Interpretation Comments Basophils (test code = 0.6 See_Comment [Aut omated message] The Basophils) system which ge nerated this result tra nsmitted reference range : <=1.0. The reference r bertha was not used to int erpret this result as normal/abnormal . [facility] HospitalOcheatwGAOGTMNNQW3433-44-22 21:21:00 Test Item Value Reference Range Interpretation Comments Segs (test code = Segs) 78.9 45.0-75.0 [facility] HospitalWezptmwJZFVTPKNOA4325-11-98 21:21:00 Test Item Value Reference Range Interpretation Comments MPV (test code = MPV) 7.8 7.4-10.4 [facility] HospitalVlwjrtoPAIWZLKROM5787-22-28 21:21:00 Test Item Value Reference Range Interpretation Comments MCH (test code = MCH) 26.3 pg 27.0-31.0 [facility] HospitalDidchuuZLYQBRBOYB1957-65-09 21:21:00 Test Item Value Reference Range Interpretation Comments RDW (test code = RDW) 18.0 11.5-14.5 [facility] [facility]NA[facility]K6185-28-[facility] 21:21:00 Test Item Value Reference Range Interpretation Comments MCHC (test code = MCHC) 32.6 32.0-36.0 [facility]ZdklubxNALAOBZDJC2593-29-63 21:21:00 Test Item Value Reference Range Interpretation Comments Platelet (test code = Platelet) 497 133-450 [facility] HospitalXebcbxrQMXKBHTSGY5329-61-31 21:21:00 Test Item Value Reference Range Interpretation Comments WBC X 10x3 (test code = WBC X 10x3) 16.6 3.7-10.4 [facility] HospitalJhnwbozVUWEMTSGLX7093-36-38 21:21:00 Test Item Value Reference Range Interpretation Comments RBC X 10x6 (test code = RBC X 10x6) 4.76 4.20-5.40 [facility] HospitalFcvtgqaUAPSBUAZEO3220-81-74 21:21:00 Test Item Value Reference Range Interpretation Comments Hgb (test code = Hgb) 12.5 12.0-16.0 [facility] HospitalIhcmdnyXQULCHVLAS3176-41-95 21:21:00 Test Item Value Reference Range Interpretation Comments Hct (test code = Hct) 38.3 36.0-48.0 [facility]2016-07-10 21:21:00 Test Item Value Reference Range Interpretation Comments Lipase Lvl (test code = Lipase Lvl) 139 73-393 [facility] HospitalUjzdabtBCDNTYPGOX6636-46-96 21:21:00 Test Item Value Reference Range Interpretation Comments MCV (test code = MCV) 80.5 80.0-98.0 [facility]2016-07-10 21:21:00 Test Item Value Reference Range Interpretation Comments eGFR (test code = eGFR) 111 [facility]2016-07-10 21:21:00 Test Item Value Reference Range Interpretation Comments Albumin Lvl (test code = Albumin Lvl) 4.4 3.5-5.0 [facility]2016-07-10 21:21:00 Test Item Value Reference Range Interpretation Comments ALANINE AMINOTRANSFERASE 26 See_Comment [A utomated message] (test code = ALANINE The sys tem which AMINOTRANSFERASE) generated this result transmitted ref erence range: <=65. Th e reference range was not used to int erpret this result as normal/abnormal . [facility]2016-07-10 21:21:00 Test Item Value Reference Range Interpretation Comments BUN (test code = BUN) 9 7-22 [facility]2016-07-10 21:21:00 Test Item Value Reference Range Interpretation Comments Glucose Lvl (test code = Glucose Lvl) 103 70-99 [facility]2016-07-10 21:21:00 Test Item Value Reference Range Interpretation Comments Alk Phos (test code = Alk Phos) 91 39-136 [facility]2016-07-10 21:21:00 Test Item Value Reference Range Interpretation Comments Creatinine Lvl (test code = Creatinine 0.74 0.50-1.40 Lvl) [facility]2016-07-10 21:21:00 Test Item Value Reference Range Interpretation Comments ASPARTATE TRANSAMINASE 23 See_Comment [Aut omated message] (test code = ASPARTATE The s ystem which TRANSAMINASE) generated this result transmitted ref erence range: <=37. Th e reference range was not used to interpr et this result as normal/abnormal . [facility]2016-07-10 21:21:00 Test Item Value Reference Range Interpretation Comments Total Protein (test code = Total 8.4 6.4-8.4 Protein) [facility]2016-07-10 21:21:00 Test Item Value Reference Range Interpretation Comments Chloride Lvl (test code = Chloride Lvl) 104 95-109 [facility]2016-07-10 21:21:00 Test Item Value Reference Range Interpretation Comments Potassium Lvl (test code = Potassium 3.9 3.5-5.1 Lvl) [facility]2016-07-10 21:21:00 Test Item Value Reference Range Interpretation Comments Sodium Lvl (test code = Sodium Lvl) 136 135-145 [facility]2016-07-10 21:21:00 Test Item Value Reference Range Interpretation Comments Bili Total (test code = Bili Total) 0.6 0.2-1.3 [facility]2016-07-10 21:21:00 Test Item Value Reference Range Interpretation Comments Calcium Lvl (test code = Calcium Lvl) 8.8 8.5-10.5 [facility]2016-07-10 21:21:00 Test Item Value Reference Range Interpretation Comments CO2 (test code = CO2) 20 24-32 [facility]2016-07-10 21:21:00 Test Item Value Reference Range Interpretation Comments A/G Ratio (test code = A/G Ratio) 1.1 0.7-1.6 [facility]2016-07-10 21:21:00 Test Item Value Reference Range Interpretation Comments Globulin (test code = Globulin) 4.0 2.0-4.0 [facility]2016-07-10 21:21:00 Test Item Value Reference Range Interpretation Comments B/C Ratio (test code = B/C Ratio) 12 6-25 [facility]2016-07-10 21:21:00 Test Item Value Reference Range Interpretation Comments AGAP (test code = AGAP) 15.9 10.0-20.0 [facility] HospitalGssknliPGCVLFNCWL8757-39-39 21:21:00 Test Item Value Reference Range Interpretation Comments Lymphocytes # (test code = Lymphocytes 2.5 1.0-5.5 #) [facility] HospitalKxfjtikNGVYCONCCO0944-77-82 21:21:00 Test Item Value Reference Range Interpretation Comments Basophils # (test code 0.1 See_Comment [Aut omated message] The = Basophils #) system which generated this result tra nsmitted reference range : <=0.2. The reference r bertha was not used to int erpret this result as normal/abnormal . [facility] HospitalQkwqltlDJHXYXQYKW9693-62-03 21:21:00 Test Item Value Reference Range Interpretation Comments Monocytes # (test code 0.8 See_Comment [Aut omated message] The = Monocytes #) system which generated this result tra nsmitted reference range : <=0.8. The reference r bertha was not used to int erpret this result as normal/abnormal . [facility] HospitalIcettdbTKHTMIUEYT2855-47-14 21:21:00 Test Item Value Reference Range Interpretation Comments Monocytes (test code = Monocytes) 5.1 2.0-12.0 [facility] HospitalPkmevptJYJXJMBXTI6288-06-79 21:21:00 Test Item Value Reference Range Interpretation Comments Lymphocytes (test code = Lymphocytes) 15.3 20.0-40.0 [facility] HospitalIcywdtuBTBCKMRHVH7316-87-42 21:21:00 Test Item Value Reference Range Interpretation Comments Eosinophils (test code = 0.1 See_Comment [A utomated message] The Eosinophils) system which ge nerated this result tra nsmitted reference range : <=4.0. The reference r bertha was not used to int erpret this result as normal/abnormal . [facility] HospitalEnbgrryWQOHXEUDUZ4225-55-27 21:21:00 Test Item Value Reference Range Interpretation Comments Segs-Bands # (test code = Segs-Bands #) 13.1 1.5-8.1 [facility] HospitalIexisrvRSSZVEDQWV8674-25-52 21:21:00 Test Item Value Reference Range Interpretation Comments Basophils (test code = 0.6 See_Comment [Aut omated message] The Basophils) system which ge nerated this result tra nsmitted reference range : <=1.0. The reference r bertha was not used to int erpret this result as normal/abnormal . [facility] HospitalKsqmrquEZPLSCWFXG6898-46-55 21:21:00 Test Item Value Reference Range Interpretation Comments Segs (test code = Segs) 78.9 45.0-75.0 [facility] HospitalKkkugxaOVHEEKFIFX8085-81-55 21:21:00 Test Item Value Reference Range Interpretation Comments MPV (test code = MPV) 7.8 7.4-10.4 [facility] HospitalFcnmjedMSXUBPJMWJ5755-80-93 21:21:00 Test Item Value Reference Range Interpretation Comments MCH (test code = MCH) 26.3 pg 27.0-31.0 [facility] HospitalIoxjvrwFMZUZTGHJO4779-88-87 21:21:00 Test Item Value Reference Range Interpretation Comments RDW (test code = RDW) 18.0 11.5-14.5 [facility] HospitalMtcazyzCLTZMPSIVL2754-37-60 21:21:00 Test Item Value Reference Range Interpretation Comments MCHC (test code = MCHC) 32.6 32.0-36.0 [facility] HospitalKtjkwseWTCXNUTWGT5651-44-01 21:21:00 Test Item Value Reference Range Interpretation Comments Platelet (test code = Platelet) 497 133-450 [facility] HospitalNfznbcgAYIQSUWAMQ8560-01-44 21:21:00 Test Item Value Reference Range Interpretation Comments WBC X 10x3 (test code = WBC X 10x3) 16.6 3.7-10.4 [facility] HospitalYfpbzswHOXDYMQAIR6475-71-10 21:21:00 Test Item Value Reference Range Interpretation Comments RBC X 10x6 (test code = RBC X 10x6) 4.76 4.20-5.40 [facility]2016-07-10 21:21:00 Test Item Value Reference Range Interpretation Comments Lipase Lvl (test code = Lipase Lvl) 139 73-393 [facility]2016-07-10 21:21:00 Test Item Value Reference Range Interpretation Comments eGFR (test code = eGFR) 111 [facility] HospitalWekaevwJYBYMOILGT0846-32-61 21:21:00 Test Item Value Reference Range Interpretation Comments Hgb (test code = Hgb) 12.5 12.0-16.0 [facility]2016-07-10 21:21:00 Test Item Value Reference Range Interpretation Comments Albumin Lvl (test code = Albumin Lvl) 4.4 3.5-5.0 [facility]2016-07-10 21:21:00 Test Item Value Reference Range Interpretation Comments ALANINE AMINOTRANSFERASE 26 See_Comment [A utomated message] (test code = ALANINE The sys tem which AMINOTRANSFERASE) generated this result transmitted ref erence range: <=65. Th e reference range was not used to int erpret this result as normal/abnormal . [facility]2016-07-10 21:21:00 Test Item Value Reference Range Interpretation Comments BUN (test code = BUN) 9 7-22 [facility]2016-07-10 21:21:00 Test Item Value Reference Range Interpretation Comments Glucose Lvl (test code = Glucose Lvl) 103 70-99 [facility]2016-07-10 21:21:00 Test Item Value Reference Range Interpretation Comments Alk Phos (test code = Alk Phos) 91 39-136 [facility]2016-07-10 21:21:00 Test Item Value Reference Range Interpretation Comments Creatinine Lvl (test code = Creatinine 0.74 0.50-1.40 Lvl) [facility]2016-07-10 21:21:00 Test Item Value Reference Range Interpretation Comments ASPARTATE TRANSAMINASE 23 See_Comment [Aut omated message] (test code = ASPARTATE The s ystem which TRANSAMINASE) generated this result transmitted ref erence range: <=37. Th e reference range was not used to interpr et this result as normal/abnormal . [facility]2016-07-10 21:21:00 Test Item Value Reference Range Interpretation Comments Total Protein (test code = Total 8.4 6.4-8.4 Protein) [facility]2016-07-10 21:21:00 Test Item Value Reference Range Interpretation Comments Chloride Lvl (test code = Chloride Lvl) 104 95-109 [facility]2016-07-10 21:21:00 Test Item Value Reference Range Interpretation Comments Potassium Lvl (test code = Potassium 3.9 3.5-5.1 Lvl) [facility] HospitalUdyjktbRAIFDAPYDG4245-55-89 21:21:00 Test Item Value Reference Range Interpretation Comments Hct (test code = Hct) 38.3 36.0-48.0 [facility]2016-07-10 21:21:00 Test Item Value Reference Range Interpretation Comments Sodium Lvl (test code = Sodium Lvl) 136 135-145 [facility]2016-07-10 21:21:00 Test Item Value Reference Range Interpretation Comments Bili Total (test code = Bili Total) 0.6 0.2-1.3 [facility]2016-07-10 21:21:00 Test Item Value Reference Range Interpretation Comments Calcium Lvl (test code = Calcium Lvl) 8.8 8.5-10.5 [facility]2016-07-10 21:21:00 Test Item Value Reference Range Interpretation Comments CO2 (test code = CO2) 20 24-32 [facility]2016-07-10 21:21:00 Test Item Value Reference Range Interpretation Comments A/G Ratio (test code = A/G Ratio) 1.1 0.7-1.6 [facility]2016-07-10 21:21:00 Test Item Value Reference Range Interpretation Comments Globulin (test code = Globulin) 4.0 2.0-4.0 [facility]2016-07-10 21:21:00 Test Item Value Reference Range Interpretation Comments B/C Ratio (test code = B/C Ratio) 12 6-25 [facility]2016-07-10 21:21:00 Test Item Value Reference Range Interpretation Comments AGAP (test code = AGAP) 15.9 10.0-20.0 [facility] HospitalPoahgdlXKHUETZOMP5011-54-59 21:21:00 Test Item Value Reference Range Interpretation Comments Lymphocytes # (test code = Lymphocytes 2.5 1.0-5.5 #) [facility] HospitalAxwcpxyHFVOTOZHSW2997-34-32 21:21:00 Test Item Value Reference Range Interpretation Comments Basophils # (test code 0.1 See_Comment [Aut omated message] The = Basophils #) system which generated this result tra nsmitted reference range : <=0.2. The reference r bertha was not used to int erpret this result as normal/abnormal . [facility] HospitalHgaykzpNFKVPHTMFE0290-69-87 21:21:00 Test Item Value Reference Range Interpretation Comments MCV (test code = MCV) 80.5 80.0-98.0 [facility] HospitalLyrkorpQXRWWFVYYX5584-04-64 21:21:00 Test Item Value Reference Range Interpretation Comments Monocytes # (test code 0.8 See_Comment [Aut omated message] The = Monocytes #) system which generated this result tra nsmitted reference range : <=0.8. The reference r bertha was not used to int erpret this result as normal/abnormal . [facility] HospitalVxnxytuJZMRAOERLA6647-95-15 21:21:00 Test Item Value Reference Range Interpretation Comments Monocytes (test code = Monocytes) 5.1 2.0-12.0 [facility] HospitalWdjyyzmVLBENTGFWC9535-27-61 21:21:00 Test Item Value Reference Range Interpretation Comments Lymphocytes (test code = Lymphocytes) 15.3 20.0-40.0 [facility] HospitalAmwdfqjXFFCDTKBHN2699-30-13 21:21:00 Test Item Value Reference Range Interpretation Comments Eosinophils (test code = 0.1 See_Comment [A utomated message] The Eosinophils) system which ge nerated this result tra nsmitted reference range : <=4.0. The reference r bertha was not used to int erpret this result as normal/abnormal . [facility] HospitalBlaidwnRKEMBFTSFT6687-47-01 21:21:00 Test Item Value Reference Range Interpretation Comments Segs-Bands # (test code = Segs-Bands #) 13.1 1.5-8.1 [facility] HospitalWweskilMLOGJQUMQV0479-67-23 21:21:00 Test Item Value Reference Range Interpretation Comments Basophils (test code = 0.6 See_Comment [Aut omated message] The Basophils) system which ge nerated this result tra nsmitted reference range : <=1.0. The reference r bertha was not used to int erpret this result as normal/abnormal . [facility] HospitalAkvvdsoKNBLMNVREP7121-71-76 21:21:00 Test Item Value Reference Range Interpretation Comments Segs (test code = Segs) 78.9 45.0-75.0 [facility] HospitalPthcjckVEAMDWWKWB1979-01-42 21:21:00 Test Item Value Reference Range Interpretation Comments MPV (test code = MPV) 7.8 7.4-10.4 [facility] HospitalJndioihFUSYHFTQPB3350-88-53 21:21:00 Test Item Value Reference Range Interpretation Comments MCH (test code = MCH) 26.3 pg 27.0-31.0 [facility] HospitalWxvtvpyNFBFHAYFHW8725-66-01 21:21:00 Test Item Value Reference Range Interpretation Comments RDW (test code = RDW) 18.0 11.5-14.5 [facility] HospitalKlzrwbcSLNZJDKFUZ2314-04-95 21:21:00 Test Item Value Reference Range Interpretation Comments MCHC (test code = MCHC) 32.6 32.0-36.0 [facility] HospitalVdffhjpRWGWZYCFQC4446-00-68 21:21:00 Test Item Value Reference Range Interpretation Comments Platelet (test code = Platelet) 497 133450 [facility] HospitalIyinyszBSDBLPDYZF4616-73-41 21:21:00 Test Item Value Reference Range Interpretation Comments WBC X 10x3 (test code = WBC X 10x3) 16.6 3.7-10.4 [facility] HospitalArqigtePEPDBLIGQX0597-00-42 21:21:00 Test Item Value Reference Range Interpretation Comments RBC X 10x6 (test code = RBC X 10x6) 4.76 4.20-5.40 [facility] HospitalXdoauxmLOJLAKLNXW5691-65-75 21:21:00 Test Item Value Reference Range Interpretation Comments Hgb (test code = Hgb) 12.5 12.0-16.0 [facility] HospitalXvfrysvYPZLQXWYAL8515-01-79 21:21:00 Test Item Value Reference Range Interpretation Comments Hct (test code = Hct) 38.3 36.0-48.0 [facility] HospitalCnhwemuEVCBRVPZIN2872-24-69 21:21:00 Test Item Value Reference Range Interpretation Comments MCV (test code = MCV) 80.5 80.0-98.0 [facility]2016-07-10 21:21:00 Test Item Value Reference Range Interpretation Comments Lipase Lvl (test code = Lipase Lvl) 139 73-393 [facility]2016-07-10 21:21:00 Test Item Value Reference Range Interpretation Comments eGFR (test code = eGFR) 111 [facility]2016-07-10 21:21:00 Test Item Value Reference Range Interpretation Comments Albumin Lvl (test code = Albumin Lvl) 4.4 3.5-5.0 [facility]2016-07-10 21:21:00 Test Item Value Reference Range Interpretation Comments ALANINE AMINOTRANSFERASE 26 See_Comment [A utomated message] (test code = ALANINE The sys tem which AMINOTRANSFERASE) generated this result transmitted ref erence range: <=65. Th e reference range was not used to int erpret this result as normal/abnormal . [facility]2016-07-10 21:21:00 Test Item Value Reference Range Interpretation Comments BUN (test code = BUN) 9 7-22 [facility]2016-07-10 21:21:00 Test Item Value Reference Range Interpretation Comments Glucose Lvl (test code = Glucose Lvl) 103 70-99 [facility]2016-07-10 21:21:00 Test Item Value Reference Range Interpretation Comments Alk Phos (test code = Alk Phos) 91 39-136 [facility]2016-07-10 21:21:00 Test Item Value Reference Range Interpretation Comments Creatinine Lvl (test code = Creatinine 0.74 0.50-1.40 Lvl) [facility]2016-07-10 21:21:00 Test Item Value Reference Range Interpretation Comments ASPARTATE TRANSAMINASE 23 See_Comment [Aut omated message] (test code = ASPARTATE The s ystem which TRANSAMINASE) generated this result transmitted ref erence range: <=37. Th e reference range was not used to interpr et this result as normal/abnormal . [facility]2016-07-10 21:21:00 Test Item Value Reference Range Interpretation Comments Total Protein (test code = Total 8.4 6.4-8.4 Protein) [facility]2016-07-10 21:21:00 Test Item Value Reference Range Interpretation Comments Chloride Lvl (test code = Chloride Lvl) 104 95-109 [facility]2016-07-10 21:21:00 Test Item Value Reference Range Interpretation Comments Potassium Lvl (test code = Potassium 3.9 3.5-5.1 Lvl) [facility]2016-07-10 21:21:00 Test Item Value Reference Range Interpretation Comments Sodium Lvl (test code = Sodium Lvl) 136 135-145 [facility]2016-07-10 21:21:00 Test Item Value Reference Range Interpretation Comments Bili Total (test code = Bili Total) 0.6 0.2-1.3 [facility]2016-07-10 21:21:00 Test Item Value Reference Range Interpretation Comments Calcium Lvl (test code = Calcium Lvl) 8.8 8.5-10.5 [facility]2016-07-10 21:21:00 Test Item Value Reference Range Interpretation Comments CO2 (test code = CO2) 20 24-32 [facility]2016-07-10 21:21:00 Test Item Value Reference Range Interpretation Comments A/G Ratio (test code = A/G Ratio) 1.1 0.7-1.6 [place] 597326-07-10 21:21:00 Test Item Value Reference Range Interpretation Comments Globulin (test code = Globulin) 4.0 2.0-4.0 [place] 597326-07-10 21:21:00 Test Item Value Reference Range Interpretation Comments B/C Ratio (test code = B/C Ratio) 12 6-25 [place] 597326-07-10 21:21:00 Test Item Value Reference Range Interpretation Comments AGAP (test code = AGAP) 15.9 10.0-20.0 [facility] HospitalKtuorrrVIGUAVDVHB7216-84-76 21:21:00 Test Item Value Reference Range Interpretation Comments Lymphocytes # (test code = Lymphocytes 2.5 1.0-5.5 #) [facility] HospitalKmyrdvnNCXXVRUGWZ1632-97-54 21:21:00 Test Item Value Reference Range Interpretation Comments Basophils # (test code 0.1 See_Comment [Aut omated message] The = Basophils #) system which generated this result tra nsmitted reference range : <=0.2. The reference r bertha was not used to int erpret this result as normal/abnormal . [facility] HospitalVgrnchuADFWBAGZRW2640-56-99 21:21:00 Test Item Value Reference Range Interpretation Comments Monocytes # (test code 0.8 See_Comment [Aut omated message] The = Monocytes #) system which generated this result tra nsmitted reference range : <=0.8. The reference r bertha was not used to int erpret this result as normal/abnormal . [facility] HospitalHfsbogxAMGGDJWZYG2726-26-98 21:21:00 Test Item Value Reference Range Interpretation Comments Monocytes (test code = Monocytes) 5.1 2.0-12.0 [facility] HospitalTjirgwkPKPOTNJTVI7045-55-55 21:21:00 Test Item Value Reference Range Interpretation Comments Lymphocytes (test code = Lymphocytes) 15.3 20.0-40.0 [facility] HospitalQnamrnsTDSPQCRWZR0265-08-15 21:21:00 Test Item Value Reference Range Interpretation Comments Eosinophils (test code = 0.1 See_Comment [A utomated message] The Eosinophils) system which ge nerated this result tra nsmitted reference range : <=4.0. The reference r bertha was not used to int erpret this result as normal/abnormal . [facility] HospitalBduseqgSDHYIQXNUB3120-92-60 21:21:00 Test Item Value Reference Range Interpretation Comments Segs-Bands # (test code = Segs-Bands #) 13.1 1.5-8.1 [facility] HospitalJwzxwacEFSMQOUSNL1951-94-28 21:21:00 Test Item Value Reference Range Interpretation Comments Basophils (test code = 0.6 See_Comment [Aut omated message] The Basophils) system which ge nerated this result tra nsmitted reference range : <=1.0. The reference r bertha was not used to int erpret this result as normal/abnormal . [facility] HospitalEafkheqPSQLIPGZFB9539-88-72 21:21:00 Test Item Value Reference Range Interpretation Comments Segs (test code = Segs) 78.9 45.0-75.0 [facility] HospitalBodklxxPPEEFDAPLP7708-66-38 21:21:00 Test Item Value Reference Range Interpretation Comments MPV (test code = MPV) 7.8 7.4-10.4 [facility] HospitalNemasbrGBFOOBNOHI7446-47-09 21:21:00 Test Item Value Reference Range Interpretation Comments MCH (test code = MCH) 26.3 pg 27.0-31.0 [facility] HospitalSxuqytkTHRZJONPVL4126-26-43 21:21:00 Test Item Value Reference Range Interpretation Comments RDW (test code = RDW) 18.0 11.5-14.5 [facility] HospitalPqngoljJLHNYFHNBL4805-03-40 21:21:00 Test Item Value Reference Range Interpretation Comments MCHC (test code = MCHC) 32.6 32.0-36.0 [facility] HospitalHqstihaBCCYQOKWUH3272-04-50 21:21:00 Test Item Value Reference Range Interpretation Comments Platelet (test code = Platelet) 497 133-450 [facility] HospitalWguduviTOAHCJQHEB9089-71-88 21:21:00 Test Item Value Reference Range Interpretation Comments WBC X 10x3 (test code = WBC X 10x3) 16.6 3.7-10.4 [facility] HospitalBbmipknKBQARKBPQQ6349-48-58 21:21:00 Test Item Value Reference Range Interpretation Comments RBC X 10x6 (test code = RBC X 10x6) 4.76 4.20-5.40 [facility] HospitalLkwobirEFDCUHXRLO3854-74-41 21:21:00 Test Item Value Reference Range Interpretation Comments Hgb (test code = Hgb) 12.5 12.0-16.0 [facility] HospitalIehwoqjTIJKKRLTWH7474-77-84 21:21:00 Test Item Value Reference Range Interpretation Comments Hct (test code = Hct) 38.3 36.0-48.0 [facility] HospitalFztkftbBBIADVVBAZ6154-08-47 21:21:00 Test Item Value Reference Range Interpretation Comments MCV (test code = MCV) 80.5 80.0-98.0 [facility]2016-07-10 21:21:00 Test Item Value Reference Range Interpretation Comments Lipase Lvl (test code = Lipase Lvl) 139 73-393 [facility]2016-07-10 21:21:00 Test Item Value Reference Range Interpretation Comments eGFR (test code = eGFR) 111 [facility]2016-07-10 21:21:00 Test Item Value Reference Range Interpretation Comments Albumin Lvl (test code = Albumin Lvl) 4.4 3.5-5.0 [facility]2016-07-10 21:21:00 Test Item Value Reference Range Interpretation Comments ALANINE AMINOTRANSFERASE 26 See_Comment [A utomated message] (test code = ALANINE The sys tem which AMINOTRANSFERASE) generated this result transmitted ref erence range: <=65. Th e reference range was not used to int erpret this result as normal/abnormal . [facility]2016-07-10 21:21:00 Test Item Value Reference Range Interpretation Comments BUN (test code = BUN) 9 7-22 [facility]2016-07-10 21:21:00 Test Item Value Reference Range Interpretation Comments Glucose Lvl (test code = Glucose Lvl) 103 70-99 [facility]2016-07-10 21:21:00 Test Item Value Reference Range Interpretation Comments Alk Phos (test code = Alk Phos) 91 39-136 [facility]2016-07-10 21:21:00 Test Item Value Reference Range Interpretation Comments Creatinine Lvl (test code = Creatinine 0.74 0.50-1.40 Lvl) [facility]2016-07-10 21:21:00 Test Item Value Reference Range Interpretation Comments ASPARTATE TRANSAMINASE 23 See_Comment [Aut omated message] (test code = ASPARTATE The s ystem which TRANSAMINASE) generated this result transmitted ref erence range: <=37. Th e reference range was not used to interpr et this result as normal/abnormal . [facility]2016-07-10 21:21:00 Test Item Value Reference Range Interpretation Comments Total Protein (test code = Total 8.4 6.4-8.4 Protein) [facility]2016-07-10 21:21:00 Test Item Value Reference Range Interpretation Comments Chloride Lvl (test code = Chloride Lvl) 104 95-109 [facility]2016-07-10 21:21:00 Test Item Value Reference Range Interpretation Comments Potassium Lvl (test code = Potassium 3.9 3.5-5.1 Lvl) [facility]2016-07-10 21:21:00 Test Item Value Reference Range Interpretation Comments Sodium Lvl (test code = Sodium Lvl) 136 135-145 [facility]2016-07-10 21:21:00 Test Item Value Reference Range Interpretation Comments Bili Total (test code = Bili Total) 0.6 0.2-1.3 [facility]2016-07-10 21:21:00 Test Item Value Reference Range Interpretation Comments Calcium Lvl (test code = Calcium Lvl) 8.8 8.5-10.5 [facility]2016-07-10 21:21:00 Test Item Value Reference Range Interpretation Comments CO2 (test code = CO2) 20 24-32 [facility]2016-07-10 21:21:00 Test Item Value Reference Range Interpretation Comments A/G Ratio (test code = A/G Ratio) 1.1 0.7-1.6 [facility]2016-07-10 21:21:00 Test Item Value Reference Range Interpretation Comments Globulin (test code = Globulin) 4.0 2.0-4.0 [facility]2016-07-10 21:21:00 Test Item Value Reference Range Interpretation Comments B/C Ratio (test code = B/C Ratio) 12 6-25 [facility]2016-07-10 21:21:00 Test Item Value Reference Range Interpretation Comments AGAP (test code = AGAP) 15.9 10.0-20.0 [facility]VfgviihHYASBNBLDR2906-51-07 21:21:00 Test Item Value Reference Range Interpretation Comments Lymphocytes # (test code = Lymphocytes 2.5 1.0-5.5 #) [facility] HospitalOmsgwynRAZAOSZJIX5869-28-47 21:21:00 Test Item Value Reference Range Interpretation Comments Basophils # (test code 0.1 See_Comment [Aut omated message] The = Basophils #) system which generated this result tra nsmitted reference range : <=0.2. The reference r bertha was not used to int erpret this result as normal/abnormal . [facility] HospitalWwfxhjnHZWQMFAVQW7660-97-24 21:21:00 Test Item Value Reference Range Interpretation Comments Monocytes # (test code 0.8 See_Comment [Aut omated message] The = Monocytes #) system which generated this result tra nsmitted reference range : <=0.8. The reference r bertha was not used to int erpret this result as normal/abnormal . [facility] HospitalMwezsjhVJUWVMAPGC0769-92-57 21:21:00 Test Item Value Reference Range Interpretation Comments Monocytes (test code = Monocytes) 5.1 2.0-12.0 [facility] HospitalYxkjpjqIDGDQGLSUS2090-24-57 21:21:00 Test Item Value Reference Range Interpretation Comments Lymphocytes (test code = Lymphocytes) 15.3 20.0-40.0 [facility] HospitalHcymeyjLCEYEAKTKH4930-44-11 21:21:00 Test Item Value Reference Range Interpretation Comments Eosinophils (test code = 0.1 See_Comment [A utomated message] The Eosinophils) system which ge nerated this result tra nsmitted reference range : <=4.0. The reference r bertha was not used to int erpret this result as normal/abnormal . [facility] HospitalKhixlzlQEPVWPINHF9864-66-83 21:21:00 Test Item Value Reference Range Interpretation Comments Segs-Bands # (test code = Segs-Bands #) 13.1 1.5-8.1 [facility] HospitalLiiegeuZPYMHRHDUF5559-24-12 21:21:00 Test Item Value Reference Range Interpretation Comments Basophils (test code = 0.6 See_Comment [Aut omated message] The Basophils) system which ge nerated this result tra nsmitted reference range : <=1.0. The reference r bertha was not used to int erpret this result as normal/abnormal . [facility] HospitalVodjxikNSQDODIMFQ3340-25-64 21:21:00 Test Item Value Reference Range Interpretation Comments Segs (test code = Segs) 78.9 45.0-75.0 [facility] HospitalYlhiijiUUOOWAKOMK0559-15-00 21:21:00 Test Item Value Reference Range Interpretation Comments MPV (test code = MPV) 7.8 7.4-10.4 [facility] HospitalOcfpfjiPGSAORDLGP0741-00-93 21:21:00 Test Item Value Reference Range Interpretation Comments MCH (test code = MCH) 26.3 pg 27.0-31.0 [facility] HospitalOtwikwoJMHMFDBDVD8416-42-64 21:21:00 Test Item Value Reference Range Interpretation Comments RDW (test code = RDW) 18.0 11.5-14.5 [facility] HospitalQlkivttVUZGPTIUCV0552-20-50 21:21:00 Test Item Value Reference Range Interpretation Comments MCHC (test code = MCHC) 32.6 32.0-36.0 [facility] HospitalShjedfzATMWLWOWQC9807-10-86 21:21:00 Test Item Value Reference Range Interpretation Comments Platelet (test code = Platelet) 497 133-450 [facility] HospitalXzrtskdTUIUZYIEYC8173-73-76 21:21:00 Test Item Value Reference Range Interpretation Comments WBC X 10x3 (test code = WBC X 10x3) 16.6 3.7-10.4 [facility] HospitalJegrqsaOKQYMCBXEL3740-60-47 21:21:00 Test Item Value Reference Range Interpretation Comments RBC X 10x6 (test code = RBC X 10x6) 4.76 4.20-5.40 [facility] HospitalVtyqiqxDFIWFKJQUO0954-76-44 21:21:00 Test Item Value Reference Range Interpretation Comments Hgb (test code = Hgb) 12.5 12.0-16.0 [facility] HospitalHphxotyWZEJQXTMJL6934-22-15 21:21:00 Test Item Value Reference Range Interpretation Comments Hct (test code = Hct) 38.3 36.0-48.0 [facility] HospitalSkiandmREPFZQJGLZ1743-87-19 21:21:00 Test Item Value Reference Range Interpretation Comments MCV (test code = MCV) 80.5 80.0-98.0 [facility]2016-07-10 21:21:00 Test Item Value Reference Range Interpretation Comments Lipase Lvl (test code = Lipase Lvl) 139 73-393 [facility]2016-07-10 21:21:00 Test Item Value Reference Range Interpretation Comments eGFR (test code = eGFR) 111 [facility]2016-07-10 21:21:00 Test Item Value Reference Range Interpretation Comments Albumin Lvl (test code = Albumin Lvl) 4.4 3.5-5.0 [facility]2016-07-10 21:21:00 Test Item Value Reference Range Interpretation Comments ALANINE AMINOTRANSFERASE 26 See_Comment [A utomated message] (test code = ALANINE The sys tem which AMINOTRANSFERASE) generated this result transmitted ref erence range: <=65. Th e reference range was not used to int erpret this result as normal/abnormal . [facility]2016-07-10 21:21:00 Test Item Value Reference Range Interpretation Comments BUN (test code = BUN) 9 7-22 [facility]2016-07-10 21:21:00 Test Item Value Reference Range Interpretation Comments Glucose Lvl (test code = Glucose Lvl) 103 70-99 [facility]2016-07-10 21:21:00 Test Item Value Reference Range Interpretation Comments Alk Phos (test code = Alk Phos) 91 39-136 [facility]2016-07-10 21:21:00 Test Item Value Reference Range Interpretation Comments Creatinine Lvl (test code = Creatinine 0.74 0.50-1.40 Lvl) [facility]2016-07-10 21:21:00 Test Item Value Reference Range Interpretation Comments ASPARTATE TRANSAMINASE 23 See_Comment [Aut omated message] (test code = ASPARTATE The s ystem which TRANSAMINASE) generated this result transmitted ref erence range: <=37. Th e reference range was not used to interpr et this result as normal/abnormal . [facility]2016-07-10 21:21:00 Test Item Value Reference Range Interpretation Comments Total Protein (test code = Total 8.4 6.4-8.4 Protein) [facility]2016-07-10 21:21:00 Test Item Value Reference Range Interpretation Comments Chloride Lvl (test code = Chloride Lvl) 104 95-109 [facility]2016-07-10 21:21:00 Test Item Value Reference Range Interpretation Comments Potassium Lvl (test code = Potassium 3.9 3.5-5.1 Lvl) [facility]2016-07-10 21:21:00 Test Item Value Reference Range Interpretation Comments Sodium Lvl (test code = Sodium Lvl) 136 135-145 [facility]2016-07-10 21:21:00 Test Item Value Reference Range Interpretation Comments Bili Total (test code = Bili Total) 0.6 0.2-1.3 [facility]2016-07-10 21:21:00 Test Item Value Reference Range Interpretation Comments Calcium Lvl (test code = Calcium Lvl) 8.8 8.5-10.5 [facility]2016-07-10 21:21:00 Test Item Value Reference Range Interpretation Comments CO2 (test code = CO2) 20 24-32 [facility]2016-07-10 21:21:00 Test Item Value Reference Range Interpretation Comments A/G Ratio (test code = A/G Ratio) 1.1 0.7-1.6 [facility]2016-07-10 21:21:00 Test Item Value Reference Range Interpretation Comments Globulin (test code = Globulin) 4.0 2.0-4.0 [facility]2016-07-10 21:21:00 Test Item Value Reference Range Interpretation Comments B/C Ratio (test code = B/C Ratio) 12 6-25 [facility]2016-07-10 21:21:00 Test Item Value Reference Range Interpretation Comments AGAP (test code = AGAP) 15.9 10.0-20.0 [facility] HospitalNsryzfxOBLIGBYRAE7798-63-21 21:21:00 Test Item Value Reference Range Interpretation Comments Lymphocytes # (test code = Lymphocytes 2.5 1.0-5.5 #) [facility] HospitalKahvbiiYBZZKMSCGM2661-33-46 21:21:00 Test Item Value Reference Range Interpretation Comments Basophils # (test code 0.1 See_Comment [Aut omated message] The = Basophils #) system which generated this result tra nsmitted reference range : <=0.2. The reference r bertha was not used to int erpret this result as normal/abnormal . [facility] HospitalJvbwjdlZZOWGMJHMB1559-40-68 21:21:00 Test Item Value Reference Range Interpretation Comments Monocytes # (test code 0.8 See_Comment [Aut omated message] The = Monocytes #) system which generated this result tra nsmitted reference range : <=0.8. The reference r bertha was not used to int erpret this result as normal/abnormal . [facility] HospitalVahltyrTJLNELLCZP2014-10-07 21:21:00 Test Item Value Reference Range Interpretation Comments Monocytes (test code = Monocytes) 5.1 2.0-12.0 [facility] HospitalOltwxkpKASKYLLIXX3809-79-96 21:21:00 Test Item Value Reference Range Interpretation Comments Lymphocytes (test code = Lymphocytes) 15.3 20.0-40.0 [facility] HospitalGokbkojZGJCQCMUWJ4449-60-49 21:21:00 Test Item Value Reference Range Interpretation Comments Eosinophils (test code = 0.1 See_Comment [A utomated message] The Eosinophils) system which ge nerated this result tra nsmitted reference range : <=4.0. The reference r bertha was not used to int erpret this result as normal/abnormal . [facility] HospitalYhdmlxiJCGOORPZAA4803-18-53 21:21:00 Test Item Value Reference Range Interpretation Comments Segs-Bands # (test code = Segs-Bands #) 13.1 1.5-8.1 [facility] HospitalSazxstsVOEBKNJUDQ5604-84-28 21:21:00 Test Item Value Reference Range Interpretation Comments Basophils (test code = 0.6 See_Comment [Aut omated message] The Basophils) system which ge nerated this result tra nsmitted reference range : <=1.0. The reference r bertha was not used to int erpret this result as normal/abnormal . [facility] HospitalLmacfbkDLYCRLFKCW7268-80-41 21:21:00 Test Item Value Reference Range Interpretation Comments Segs (test code = Segs) 78.9 45.0-75.0 [facility] HospitalDtehyvoGNHVLDBFKY3603-15-80 21:21:00 Test Item Value Reference Range Interpretation Comments MPV (test code = MPV) 7.8 7.4-10.4 [facility] HospitalWjkyryjWJITLYKWRQ5326-99-49 21:21:00 Test Item Value Reference Range Interpretation Comments MCH (test code = MCH) 26.3 pg 27.0-31.0 [facility] HospitalFitdownDXPEJLONVO0407-06-91 21:21:00 Test Item Value Reference Range Interpretation Comments RDW (test code = RDW) 18.0 11.5-14.5 [facility] HospitalQnvplyxOBVKPGLDOU0492-19-05 21:21:00 Test Item Value Reference Range Interpretation Comments MCHC (test code = MCHC) 32.6 32.0-36.0 [facility] HospitalUztkkzpZZQNVTDUXY7398-69-60 21:21:00 Test Item Value Reference Range Interpretation Comments Platelet (test code = Platelet) 497 133-450 [facility] HospitalYyycwxxWEORYZHUYA9101-27-90 21:21:00 Test Item Value Reference Range Interpretation Comments WBC X 10x3 (test code = WBC X 10x3) 16.6 3.7-10.4 [facility] HospitalJloelbrEXPOEIAHZR6545-43-44 21:21:00 Test Item Value Reference Range Interpretation Comments RBC X 10x6 (test code = RBC X 10x6) 4.76 4.20-5.40 [facility] HospitalLbpsyxnICPLUXGTPE6472-15-64 21:21:00 Test Item Value Reference Range Interpretation Comments Hgb (test code = Hgb) 12.5 12.0-16.0 [facility] HospitalFcykttgRNMJMZYNNA9066-81-93 21:21:00 Test Item Value Reference Range Interpretation Comments Hct (test code = Hct) 38.3 36.0-48.0 [facility] HospitalVwcsvsbCOUKWSDDAM7874-13-63 21:21:00 Test Item Value Reference Range Interpretation Comments MCV (test code = MCV) 80.5 80.0-98.0 [facility]2016-07-10 21:21:00 Test Item Value Reference Range Interpretation Comments Lipase Lvl (test code = Lipase Lvl) 139 73-393 [facility]2016-07-10 21:21:00 Test Item Value Reference Range Interpretation Comments eGFR (test code = eGFR) 111 [facility]2016-07-10 21:21:00 Test Item Value Reference Range Interpretation Comments Albumin Lvl (test code = Albumin Lvl) 4.4 3.5-5.0 [facility]2016-07-10 21:21:00 Test Item Value Reference Range Interpretation Comments ALANINE AMINOTRANSFERASE 26 See_Comment [A utomated message] (test code = ALANINE The sys tem which AMINOTRANSFERASE) generated this result transmitted ref erence range: <=65. Th e reference range was not used to int erpret this result as normal/abnormal . [facility]2016-07-10 21:21:00 Test Item Value Reference Range Interpretation Comments BUN (test code = BUN) 9 7-22 [facility]2016-07-10 21:21:00 Test Item Value Reference Range Interpretation Comments Glucose Lvl (test code = Glucose Lvl) 103 70-99 [facility]2016-07-10 21:21:00 Test Item Value Reference Range Interpretation Comments Alk Phos (test code = Alk Phos) 91 39-136 [facility]2016-07-10 21:21:00 Test Item Value Reference Range Interpretation Comments Creatinine Lvl (test code = Creatinine 0.74 0.50-1.40 Lvl) [facility]2016-07-10 21:21:00 Test Item Value Reference Range Interpretation Comments ASPARTATE TRANSAMINASE 23 See_Comment [Aut omated message] (test code = ASPARTATE The s ystem which TRANSAMINASE) generated this result transmitted ref erence range: <=37. Th e reference range was not used to interpr et this result as normal/abnormal . [facility]2016-07-10 21:21:00 Test Item Value Reference Range Interpretation Comments Total Protein (test code = Total 8.4 6.4-8.4 Protein) [facility]2016-07-10 21:21:00 Test Item Value Reference Range Interpretation Comments Chloride Lvl (test code = Chloride Lvl) 104 95-109 [facility]2016-07-10 21:21:00 Test Item Value Reference Range Interpretation Comments Potassium Lvl (test code = Potassium 3.9 3.5-5.1 Lvl) [facility]2016-07-10 21:21:00 Test Item Value Reference Range Interpretation Comments Sodium Lvl (test code = Sodium Lvl) 136 135-145 [facility]2016-07-10 21:21:00 Test Item Value Reference Range Interpretation Comments Bili Total (test code = Bili Total) 0.6 0.2-1.3 [facility]2016-07-10 21:21:00 Test Item Value Reference Range Interpretation Comments Calcium Lvl (test code = Calcium Lvl) 8.8 8.5-10.5 [facility]2016-07-10 21:21:00 Test Item Value Reference Range Interpretation Comments CO2 (test code = CO2) 20 24-32 [facility]2016-07-10 21:21:00 Test Item Value Reference Range Interpretation Comments A/G Ratio (test code = A/G Ratio) 1.1 0.7-1.6 [facility]2016-07-10 21:21:00 Test Item Value Reference Range Interpretation Comments Globulin (test code = Globulin) 4.0 2.0-4.0 [facility]2016-07-10 21:21:00 Test Item Value Reference Range Interpretation Comments B/C Ratio (test code = B/C Ratio) 12 6-25 [facility]2016-07-10 21:21:00 Test Item Value Reference Range Interpretation Comments AGAP (test code = AGAP) 15.9 10.0-20.0 [facility] HospitalSfofldpRBPGUUMEPH8347-26-89 21:21:00 Test Item Value Reference Range Interpretation Comments Lymphocytes # (test code = Lymphocytes 2.5 1.0-5.5 #) [facility] HospitalYyytnqxRPEAXQUXDT5969-77-69 21:21:00 Test Item Value Reference Range Interpretation Comments Basophils # (test code 0.1 See_Comment [Aut omated message] The = Basophils #) system which generated this result tra nsmitted reference range : <=0.2. The reference r bertha was not used to int erpret this result as normal/abnormal . [facility] HospitalGtpdrzxFIHBWFBENX5679-26-68 21:21:00 Test Item Value Reference Range Interpretation Comments Monocytes # (test code 0.8 See_Comment [Aut omated message] The = Monocytes #) system which generated this result tra nsmitted reference range : <=0.8. The reference r bertha was not used to int erpret this result as normal/abnormal . [facility] HospitalFczcyajMCLUCCOQHR4435-13-94 21:21:00 Test Item Value Reference Range Interpretation Comments Monocytes (test code = Monocytes) 5.1 2.0-12.0 [facility] HospitalFiigcuqMHDTJENJFQ7478-26-16 21:21:00 Test Item Value Reference Range Interpretation Comments Lymphocytes (test code = Lymphocytes) 15.3 20.0-40.0 [facility] HospitalNyhjeyfHMHFRIZKWB9340-23-87 21:21:00 Test Item Value Reference Range Interpretation Comments Eosinophils (test code = 0.1 See_Comment [A utomated message] The Eosinophils) system which ge nerated this result tra nsmitted reference range : <=4.0. The reference r bertha was not used to int erpret this result as normal/abnormal . [facility] HospitalLlewciySZWPZTNITI8342-64-17 21:21:00 Test Item Value Reference Range Interpretation Comments Segs-Bands # (test code = Segs-Bands #) 13.1 1.5-8.1 [facility] HospitalMlzmjrxSRBEUFDDRV6823-49-11 21:21:00 Test Item Value Reference Range Interpretation Comments Basophils (test code = 0.6 See_Comment [Aut omated message] The Basophils) system which ge nerated this result tra nsmitted reference range : <=1.0. The reference r bertha was not used to int erpret this result as normal/abnormal . [facility] HospitalQfuzjgxEPYIPETORU7496-63-42 21:21:00 Test Item Value Reference Range Interpretation Comments Segs (test code = Segs) 78.9 45.0-75.0 [facility] HospitalIfsqkloFJRISOJHUE1997-01-46 21:21:00 Test Item Value Reference Range Interpretation Comments MPV (test code = MPV) 7.8 7.4-10.4 [facility] HospitalBxjmdmgJBNWKGDXBM7336-51-76 21:21:00 Test Item Value Reference Range Interpretation Comments MCH (test code = MCH) 26.3 pg 27.0-31.0 [facility] HospitalYuskcfdOJQMADJUFA1334-24-81 21:21:00 Test Item Value Reference Range Interpretation Comments RDW (test code = RDW) 18.0 11.5-14.5 [facility] HospitalFcbsxtzBYXJONABCD3534-35-65 21:21:00 Test Item Value Reference Range Interpretation Comments MCHC (test code = MCHC) 32.6 32.0-36.0 [facility] HospitalXvqdytkKNTWEGIYVU4414-44-95 21:21:00 Test Item Value Reference Range Interpretation Comments Platelet (test code = Platelet) 497 133-450 [facility] HospitalWsrfphjBSDSSRULHK2682-36-16 21:21:00 Test Item Value Reference Range Interpretation Comments WBC X 10x3 (test code = WBC X 10x3) 16.6 3.7-10.4 [facility] HospitalFcdhvqbTZKFFBPNGR4803-71-82 21:21:00 Test Item Value Reference Range Interpretation Comments RBC X 10x6 (test code = RBC X 10x6) 4.76 4.20-5.40 [facility] HospitalHccdfudLHCNQJVGRR8094-66-95 21:21:00 Test Item Value Reference Range Interpretation Comments Hgb (test code = Hgb) 12.5 12.0-16.0 [facility] HospitalOfzruovOIZZXENZVO8881-49-26 21:21:00 Test Item Value Reference Range Interpretation Comments Hct (test code = Hct) 38.3 36.0-48.0 [facility] HospitalUblrnkuHLGNLPJIFV4961-33-35 21:21:00 Test Item Value Reference Range Interpretation Comments MCV (test code = MCV) 80.5 80.0-98.0 [facility]2016-07-10 21:21:00 Test Item Value Reference Range Interpretation Comments Lipase Lvl (test code = Lipase Lvl) 139 73-393 [facility]2016-07-10 21:21:00 Test Item Value Reference Range Interpretation Comments eGFR (test code = eGFR) 111 [facility]2016-07-10 21:21:00 Test Item Value Reference Range Interpretation Comments Albumin Lvl (test code = Albumin Lvl) 4.4 3.5-5.0 [facility]2016-07-10 21:21:00 Test Item Value Reference Range Interpretation Comments ALANINE AMINOTRANSFERASE 26 See_Comment [A utomated message] (test code = ALANINE The sys tem which AMINOTRANSFERASE) generated this result transmitted ref erence range: <=65. Th e reference range was not used to int erpret this result as normal/abnormal . [facility]2016-07-10 21:21:00 Test Item Value Reference Range Interpretation Comments BUN (test code = BUN) 9 7-22 [facility]2016-07-10 21:21:00 Test Item Value Reference Range Interpretation Comments Glucose Lvl (test code = Glucose Lvl) 103 70-99 [facility]2016-07-10 21:21:00 Test Item Value Reference Range Interpretation Comments Alk Phos (test code = Alk Phos) 91 39-136 [facility]2016-07-10 21:21:00 Test Item Value Reference Range Interpretation Comments Creatinine Lvl (test code = Creatinine 0.74 0.50-1.40 Lvl) [facility]2016-07-10 21:21:00 Test Item Value Reference Range Interpretation Comments ASPARTATE TRANSAMINASE 23 See_Comment [Aut omated message] (test code = ASPARTATE The s ystem which TRANSAMINASE) generated this result transmitted ref erence range: <=37. Th e reference range was not used to interpr et this result as normal/abnormal . [facility]2016-07-10 21:21:00 Test Item Value Reference Range Interpretation Comments Total Protein (test code = Total 8.4 6.4-8.4 Protein) [facility]2016-07-10 21:21:00 Test Item Value Reference Range Interpretation Comments Chloride Lvl (test code = Chloride Lvl) 104 95-109 [facility]2016-07-10 21:21:00 Test Item Value Reference Range Interpretation Comments Potassium Lvl (test code = Potassium 3.9 3.5-5.1 Lvl) [facility]2016-07-10 21:21:00 Test Item Value Reference Range Interpretation Comments Sodium Lvl (test code = Sodium Lvl) 136 135-145 [facility]2016-07-10 21:21:00 Test Item Value Reference Range Interpretation Comments Bili Total (test code = Bili Total) 0.6 0.2-1.3 [facility]2016-07-10 21:21:00 Test Item Value Reference Range Interpretation Comments Calcium Lvl (test code = Calcium Lvl) 8.8 8.5-10.5 [facility]2016-07-10 21:21:00 Test Item Value Reference Range Interpretation Comments CO2 (test code = CO2) 20 24-32 [facility]2016-07-10 21:21:00 Test Item Value Reference Range Interpretation Comments A/G Ratio (test code = A/G Ratio) 1.1 0.7-1.6 [facility]2016-07-10 21:21:00 Test Item Value Reference Range Interpretation Comments Globulin (test code = Globulin) 4.0 2.0-4.0 [facility]2016-07-10 21:21:00 Test Item Value Reference Range Interpretation Comments B/C Ratio (test code = B/C Ratio) 12 6-25 [facility]2016-07-10 21:21:00 Test Item Value Reference Range Interpretation Comments AGAP (test code = AGAP) 15.9 10.0-20.0 [facility] HospitalAicaqkmMJVKMUZEMT9441-78-32 21:21:00 Test Item Value Reference Range Interpretation Comments Lymphocytes # (test code = Lymphocytes 2.5 1.0-5.5 #) [facility] HospitalVhpifxcALFAQHKGZV7005-77-91 21:21:00 Test Item Value Reference Range Interpretation Comments Basophils # (test code 0.1 See_Comment [Aut omated message] The = Basophils #) system which generated this result tra nsmitted reference range : <=0.2. The reference r bertha was not used to int erpret this result as normal/abnormal . [facility] HospitalHqcrgbwSOUVQZBCJT9824-45-95 21:21:00 Test Item Value Reference Range Interpretation Comments Monocytes # (test code 0.8 See_Comment [Aut omated message] The = Monocytes #) system which generated this result tra nsmitted reference range : <=0.8. The reference r bertha was not used to int erpret this result as normal/abnormal . [facility] HospitalEsdzminSBAOHFAENH0186-38-83 21:21:00 Test Item Value Reference Range Interpretation Comments Monocytes (test code = Monocytes) 5.1 2.0-12.0 [facility] HospitalIjfkzlmKXOXCMVQWZ2152-30-92 21:21:00 Test Item Value Reference Range Interpretation Comments Lymphocytes (test code = Lymphocytes) 15.3 20.0-40.0 [facility] HospitalQsgoqzqKRSBEJRINS3224-04-20 21:21:00 Test Item Value Reference Range Interpretation Comments Eosinophils (test code = 0.1 See_Comment [A utomated message] The Eosinophils) system which ge nerated this result tra nsmitted reference range : <=4.0. The reference r bertha was not used to int erpret this result as normal/abnormal . [facility] HospitalIwconeeFNWYBFVAYH5878-69-45 21:21:00 Test Item Value Reference Range Interpretation Comments Segs-Bands # (test code = Segs-Bands #) 13.1 1.5-8.1 [facility] HospitalYyksefeRFIJNWPXPN5398-08-43 21:21:00 Test Item Value Reference Range Interpretation Comments Basophils (test code = 0.6 See_Comment [Aut omated message] The Basophils) system which ge nerated this result tra nsmitted reference range : <=1.0. The reference r bertha was not used to int erpret this result as normal/abnormal . [facility] HospitalTguhvdnCUIOZTXMRX8316-83-97 21:21:00 Test Item Value Reference Range Interpretation Comments Segs (test code = Segs) 78.9 45.0-75.0 [facility] HospitalMchwagdNGWFEVLJYT0845-71-52 21:21:00 Test Item Value Reference Range Interpretation Comments MPV (test code = MPV) 7.8 7.4-10.4 [facility] HospitalYqicabzYWNPRCLVXH8098-25-64 21:21:00 Test Item Value Reference Range Interpretation Comments MCH (test code = MCH) 26.3 pg 27.0-31.0 [facility] HospitalWgremcvSGUWWRIQIT7970-89-56 21:21:00 Test Item Value Reference Range Interpretation Comments RDW (test code = RDW) 18.0 11.5-14.5 [facility] HospitalSxncrpjOCOOKYJNUD2444-37-44 21:21:00 Test Item Value Reference Range Interpretation Comments MCHC (test code = MCHC) 32.6 32.0-36.0 [facility] HospitalEnsgfohKBJOAVSIAE4465-20-30 21:21:00 Test Item Value Reference Range Interpretation Comments Platelet (test code = Platelet) 497 133-450 [facility] HospitalMxnmnqeQZYCMCINRD5566-40-60 21:21:00 Test Item Value Reference Range Interpretation Comments WBC X 10x3 (test code = WBC X 10x3) 16.6 3.7-10.4 [facility] HospitalOzrstkqXGOYGKEANO3563-65-76 21:21:00 Test Item Value Reference Range Interpretation Comments RBC X 10x6 (test code = RBC X 10x6) 4.76 4.20-5.40 [facility] HospitalZtfghmxRNPKSQKVDR0134-48-36 21:21:00 Test Item Value Reference Range Interpretation Comments Hgb (test code = Hgb) 12.5 12.0-16.0 [facility] HospitalLtmytysKMGTDEEOEW2857-46-68 21:21:00 Test Item Value Reference Range Interpretation Comments Hct (test code = Hct) 38.3 36.0-48.0 [facility] HospitalLzrphhlGTWXHCBKRD7594-12-51 21:21:00 Test Item Value Reference Range Interpretation Comments MCV (test code = MCV) 80.5 80.0-98.0 [facility]2016-07-10 21:21:00 Test Item Value Reference Range Interpretation Comments Lipase Lvl (test code = Lipase Lvl) 139 73-393 [facility]2016-07-10 21:21:00 Test Item Value Reference Range Interpretation Comments eGFR (test code = eGFR) 111 [facility]2016-07-10 21:21:00 Test Item Value Reference Range Interpretation Comments Albumin Lvl (test code = Albumin Lvl) 4.4 3.5-5.0 [facility]2016-07-10 21:21:00 Test Item Value Reference Range Interpretation Comments ALANINE AMINOTRANSFERASE 26 See_Comment [A utomated message] (test code = ALANINE The sys tem which AMINOTRANSFERASE) generated this result transmitted ref erence range: <=65. Th e reference range was not used to int erpret this result as normal/abnormal . [facility]2016-07-10 21:21:00 Test Item Value Reference Range Interpretation Comments BUN (test code = BUN) 9 7-22 [facility]2016-07-10 21:21:00 Test Item Value Reference Range Interpretation Comments Glucose Lvl (test code = Glucose Lvl) 103 70-99 [facility]2016-07-10 21:21:00 Test Item Value Reference Range Interpretation Comments Alk Phos (test code = Alk Phos) 91 39-136 [facility]2016-07-10 21:21:00 Test Item Value Reference Range Interpretation Comments Creatinine Lvl (test code = Creatinine 0.74 0.50-1.40 Lvl) [facility]2016-07-10 21:21:00 Test Item Value Reference Range Interpretation Comments ASPARTATE TRANSAMINASE 23 See_Comment [Aut omated message] (test code = ASPARTATE The s ystem which TRANSAMINASE) generated this result transmitted ref erence range: <=37. Th e reference range was not used to interpr et this result as normal/abnormal . [facility]2016-07-10 21:21:00 Test Item Value Reference Range Interpretation Comments Total Protein (test code = Total 8.4 6.4-8.4 Protein) [facility]2016-07-10 21:21:00 Test Item Value Reference Range Interpretation Comments Chloride Lvl (test code = Chloride Lvl) 104 95-109 [facility]2016-07-10 21:21:00 Test Item Value Reference Range Interpretation Comments Potassium Lvl (test code = Potassium 3.9 3.5-5.1 Lvl) [facility]2016-07-10 21:21:00 Test Item Value Reference Range Interpretation Comments Sodium Lvl (test code = Sodium Lvl) 136 135-145 [facility]2016-07-10 21:21:00 Test Item Value Reference Range Interpretation Comments Bili Total (test code = Bili Total) 0.6 0.2-1.3 [facility]2016-07-10 21:21:00 Test Item Value Reference Range Interpretation Comments Calcium Lvl (test code = Calcium Lvl) 8.8 8.5-10.5 [facility]2016-07-10 21:21:00 Test Item Value Reference Range Interpretation Comments CO2 (test code = CO2) 20 24-32 [facility]2016-07-10 21:21:00 Test Item Value Reference Range Interpretation Comments A/G Ratio (test code = A/G Ratio) 1.1 0.7-1.6 [facility]2016-07-10 21:21:00 Test Item Value Reference Range Interpretation Comments Globulin (test code = Globulin) 4.0 2.0-4.0 [facility]2016-07-10 21:21:00 Test Item Value Reference Range Interpretation Comments B/C Ratio (test code = B/C Ratio) 12 6-25 [facility]2016-07-10 21:21:00 Test Item Value Reference Range Interpretation Comments AGAP (test code = AGAP) 15.9 10.0-20.0 [facility] HospitalRaqfzkyXUNYIHFGYT0017-00-91 21:21:00 Test Item Value Reference Range Interpretation Comments Lymphocytes # (test code = Lymphocytes 2.5 1.0-5.5 #) [facility] HospitalWtysfttZZKKWUBSNV7624-01-14 21:21:00 Test Item Value Reference Range Interpretation Comments Basophils # (test code 0.1 See_Comment [Aut omated message] The = Basophils #) system which generated this result tra nsmitted reference range : <=0.2. The reference r bertha was not used to int erpret this result as normal/abnormal . [facility] HospitalXomsstsWBNEMHZNGZ3958-94-52 21:21:00 Test Item Value Reference Range Interpretation Comments Monocytes # (test code 0.8 See_Comment [Aut omated message] The = Monocytes #) system which generated this result tra nsmitted reference range : <=0.8. The reference r bertha was not used to int erpret this result as normal/abnormal . [facility] HospitalOpooidbLCVYWAVPCC2237-69-55 21:21:00 Test Item Value Reference Range Interpretation Comments Monocytes (test code = Monocytes) 5.1 2.0-12.0 [facility] HospitalSfqvmfrMWHGXQLGYL8207-52-31 21:21:00 Test Item Value Reference Range Interpretation Comments Lymphocytes (test code = Lymphocytes) 15.3 20.0-40.0 [facility] HospitalRcwczrhCXJAHXPNQO6435-48-44 21:21:00 Test Item Value Reference Range Interpretation Comments Eosinophils (test code = 0.1 See_Comment [A utomated message] The Eosinophils) system which ge nerated this result tra nsmitted reference range : <=4.0. The reference r bertha was not used to int erpret this result as normal/abnormal . [facility] HospitalXwzcnhqXZBBSASMNJ8016-98-95 21:21:00 Test Item Value Reference Range Interpretation Comments Segs-Bands # (test code = Segs-Bands #) 13.1 1.5-8.1 [facility] HospitalRjhcppcRPYZGVSWID3421-66-56 21:21:00 Test Item Value Reference Range Interpretation Comments Basophils (test code = 0.6 See_Comment [Aut omated message] The Basophils) system which ge nerated this result tra nsmitted reference range : <=1.0. The reference r bertha was not used to int erpret this result as normal/abnormal . [facility] HospitalTggsiodLMQELBJQEG7909-10-00 21:21:00 Test Item Value Reference Range Interpretation Comments Segs (test code = Segs) 78.9 45.0-75.0 [facility] HospitalOzjwvcyKXBYRQXLLX9902-07-37 21:21:00 Test Item Value Reference Range Interpretation Comments MPV (test code = MPV) 7.8 7.4-10.4 [facility] HospitalUgagcipGWHCETOOYB8131-81-85 21:21:00 Test Item Value Reference Range Interpretation Comments MCH (test code = MCH) 26.3 pg 27.0-31.0 [facility] HospitalEoeajosLJVEIRSXFH7047-22-07 21:21:00 Test Item Value Reference Range Interpretation Comments RDW (test code = RDW) 18.0 11.5-14.5 [facility] HospitalFmioyvhTVTOARPRHM2549-32-52 21:21:00 Test Item Value Reference Range Interpretation Comments MCHC (test code = MCHC) 32.6 32.0-36.0 [facility] HospitalLhvnjbeORCQZAPXPG5623-46-90 21:21:00 Test Item Value Reference Range Interpretation Comments Platelet (test code = Platelet) 497 133-450 [facility] HospitalObbemkaGDMVHYWSTD7205-50-79 21:21:00 Test Item Value Reference Range Interpretation Comments WBC X 10x3 (test code = WBC X 10x3) 16.6 3.7-10.4 [facility] HospitalYxoywlbSZEKUQJLQF8804-42-10 21:21:00 Test Item Value Reference Range Interpretation Comments RBC X 10x6 (test code = RBC X 10x6) 4.76 4.20-5.40 [facility] HospitalVbngbrlIIFGLAEVNM7911-15-01 21:21:00 Test Item Value Reference Range Interpretation Comments Hgb (test code = Hgb) 12.5 12.0-16.0 [facility] HospitalVwjhsioOHPSCIKMNU4198-51-64 21:21:00 Test Item Value Reference Range Interpretation Comments Hct (test code = Hct) 38.3 36.0-48.0 [facility] HospitalEuvivboRYONTTJZPS2279-34-82 21:21:00 Test Item Value Reference Range Interpretation Comments MCV (test code = MCV) 80.5 80.0-98.0 [facility]2016-07-10 21:21:00 Test Item Value Reference Range Interpretation Comments Lipase Lvl (test code = Lipase Lvl) 139 73-393 [facility]2016-07-10 21:21:00 Test Item Value Reference Range Interpretation Comments eGFR (test code = eGFR) 111 [facility]2016-07-10 21:21:00 Test Item Value Reference Range Interpretation Comments Albumin Lvl (test code = Albumin Lvl) 4.4 3.5-5.0 [facility]2016-07-10 21:21:00 Test Item Value Reference Range Interpretation Comments ALANINE AMINOTRANSFERASE 26 See_Comment [A utomated message] (test code = ALANINE The sys tem which AMINOTRANSFERASE) generated this result transmitted ref erence range: <=65. Th e reference range was not used to int erpret this result as normal/abnormal . [facility]2016-07-10 21:21:00 Test Item Value Reference Range Interpretation Comments BUN (test code = BUN) 9 7-22 [facility]2016-07-10 21:21:00 Test Item Value Reference Range Interpretation Comments Glucose Lvl (test code = Glucose Lvl) 103 70-99 [facility]2016-07-10 21:21:00 Test Item Value Reference Range Interpretation Comments Alk Phos (test code = Alk Phos) 91 39-136 [facility]2016-07-10 21:21:00 Test Item Value Reference Range Interpretation Comments Creatinine Lvl (test code = Creatinine 0.74 0.50-1.40 Lvl) [facility]2016-07-10 21:21:00 Test Item Value Reference Range Interpretation Comments ASPARTATE TRANSAMINASE 23 See_Comment [Aut omated message] (test code = ASPARTATE The s ystem which TRANSAMINASE) generated this result transmitted ref erence range: <=37. Th e reference range was not used to interpr et this result as normal/abnormal . [facility]2016-07-10 21:21:00 Test Item Value Reference Range Interpretation Comments Total Protein (test code = Total 8.4 6.4-8.4 Protein) [facility]2016-07-10 21:21:00 Test Item Value Reference Range Interpretation Comments Chloride Lvl (test code = Chloride Lvl) 104 95-109 [facility]2016-07-10 21:21:00 Test Item Value Reference Range Interpretation Comments Potassium Lvl (test code = Potassium 3.9 3.5-5.1 Lvl) [facility]2016-07-10 21:21:00 Test Item Value Reference Range Interpretation Comments Sodium Lvl (test code = Sodium Lvl) 136 135-145 [facility]2016-07-10 21:21:00 Test Item Value Reference Range Interpretation Comments Bili Total (test code = Bili Total) 0.6 0.2-1.3 [facility]2016-07-10 21:21:00 Test Item Value Reference Range Interpretation Comments Calcium Lvl (test code = Calcium Lvl) 8.8 8.5-10.5 [facility]2016-07-10 21:21:00 Test Item Value Reference Range Interpretation Comments CO2 (test code = CO2) 20 24-32 [facility]2016-07-10 21:21:00 Test Item Value Reference Range Interpretation Comments A/G Ratio (test code = A/G Ratio) 1.1 0.7-1.6 [facility]2016-07-10 21:21:00 Test Item Value Reference Range Interpretation Comments Globulin (test code = Globulin) 4.0 2.0-4.0 [facility]2016-07-10 21:21:00 Test Item Value Reference Range Interpretation Comments B/C Ratio (test code = B/C Ratio) 12 6-25 [facility]2016-07-10 21:21:00 Test Item Value Reference Range Interpretation Comments AGAP (test code = AGAP) 15.9 10.0-20.0 [facility] HospitalGjxcwdvSRPORAHZPG4670-62-70 21:21:00 Test Item Value Reference Range Interpretation Comments Lymphocytes # (test code = Lymphocytes 2.5 1.0-5.5 #) [facility] HospitalLqfamhfKVRNFMMDVU3932-85-47 21:21:00 Test Item Value Reference Range Interpretation Comments Basophils # (test code 0.1 See_Comment [Aut omated message] The = Basophils #) system which generated this result tra nsmitted reference range : <=0.2. The reference r bertha was not used to int erpret this result as normal/abnormal . [facility] HospitalPgtjultQPYYUCKCXW6522-62-06 21:21:00 Test Item Value Reference Range Interpretation Comments Monocytes # (test code 0.8 See_Comment [Aut omated message] The = Monocytes #) system which generated this result tra nsmitted reference range : <=0.8. The reference r bertha was not used to int erpret this result as normal/abnormal . [facility] HospitalDecsyurXUJXLZLCMR0814-31-54 21:21:00 Test Item Value Reference Range Interpretation Comments Monocytes (test code = Monocytes) 5.1 2.0-12.0 [facility] HospitalPsalmynVEZCAUEOCK6736-64-72 21:21:00 Test Item Value Reference Range Interpretation Comments Lymphocytes (test code = Lymphocytes) 15.3 20.0-40.0 [facility] HospitalLdaddmfPCYUFUZVLL5603-21-41 21:21:00 Test Item Value Reference Range Interpretation Comments Eosinophils (test code = 0.1 See_Comment [A utomated message] The Eosinophils) system which ge nerated this result tra nsmitted reference range : <=4.0. The reference r bertha was not used to int erpret this result as normal/abnormal . [facility] HospitalOlwwztgOOOQAIXYWC1586-76-67 21:21:00 Test Item Value Reference Range Interpretation Comments Segs-Bands # (test code = Segs-Bands #) 13.1 1.5-8.1 [facility] HospitalJofedtoCXTSASOQWH8436-75-89 21:21:00 Test Item Value Reference Range Interpretation Comments Basophils (test code = 0.6 See_Comment [Aut omated message] The Basophils) system which ge nerated this result tra nsmitted reference range : <=1.0. The reference r bertha was not used to int erpret this result as normal/abnormal . [facility] HospitalEmjdbucCHGSVTFIJC2711-28-21 21:21:00 Test Item Value Reference Range Interpretation Comments Segs (test code = Segs) 78.9 45.0-75.0 [facility] HospitalGmkjtlfAKTRAPWTYL4491-74-78 21:21:00 Test Item Value Reference Range Interpretation Comments MPV (test code = MPV) 7.8 7.4-10.4 [facility] HospitalHbnfmlkOCSCHPJTLA2400-56-14 21:21:00 Test Item Value Reference Range Interpretation Comments MCH (test code = MCH) 26.3 pg 27.0-31.0 [facility] HospitalOluokxzFGNGXCODNO4919-31-05 21:21:00 Test Item Value Reference Range Interpretation Comments RDW (test code = RDW) 18.0 11.5-14.5 [facility] HospitalQwipnqgBCUVXUBUIN1523-20-28 21:21:00 Test Item Value Reference Range Interpretation Comments MCHC (test code = MCHC) 32.6 32.0-36.0 [facility] HospitalWcmmxlaGAOVIOFSUR0834-02-20 21:21:00 Test Item Value Reference Range Interpretation Comments Platelet (test code = Platelet) 497 133-450 [facility] HospitalUbwalbiOGLDZCJAXO5177-70-28 21:21:00 Test Item Value Reference Range Interpretation Comments WBC X 10x3 (test code = WBC X 10x3) 16.6 3.7-10.4 [facility] HospitalGbyawouSZGJUTNUYV5429-17-35 21:21:00 Test Item Value Reference Range Interpretation Comments RBC X 10x6 (test code = RBC X 10x6) 4.76 4.20-5.40 [facility] HospitalNxxohywSIQUNTWOIS1126-96-87 21:21:00 Test Item Value Reference Range Interpretation Comments Hgb (test code = Hgb) 12.5 12.0-16.0 [facility] HospitalRsjwiqoIMCDJCZNMJ7159-69-99 21:21:00 Test Item Value Reference Range Interpretation Comments Hct (test code = Hct) 38.3 36.0-48.0 [facility] HospitalOuiqbzlDNXRAIXTPY3701-61-63 21:21:00 Test Item Value Reference Range Interpretation Comments MCV (test code = MCV) 80.5 80.0-98.0 [facility]2016-07-10 21:21:00 Test Item Value Reference Range Interpretation Comments Lipase Lvl (test code = Lipase Lvl) 139 73-393 [facility]2016-07-10 21:21:00 Test Item Value Reference Range Interpretation Comments eGFR (test code = eGFR) 111 [facility]2016-07-10 21:21:00 Test Item Value Reference Range Interpretation Comments Albumin Lvl (test code = Albumin Lvl) 4.4 3.5-5.0 [facility]2016-07-10 21:21:00 Test Item Value Reference Range Interpretation Comments ALANINE AMINOTRANSFERASE 26 See_Comment [A utomated message] (test code = ALANINE The sys tem which AMINOTRANSFERASE) generated this result transmitted ref erence range: <=65. Th e reference range was not used to int erpret this result as normal/abnormal . [facility]2016-07-10 21:21:00 Test Item Value Reference Range Interpretation Comments BUN (test code = BUN) 9 7-22 [facility]2016-07-10 21:21:00 Test Item Value Reference Range Interpretation Comments Glucose Lvl (test code = Glucose Lvl) 103 70-99 [facility]2016-07-10 21:21:00 Test Item Value Reference Range Interpretation Comments Alk Phos (test code = Alk Phos) 91 39-136 [facility]2016-07-10 21:21:00 Test Item Value Reference Range Interpretation Comments Creatinine Lvl (test code = Creatinine 0.74 0.50-1.40 Lvl) [facility]2016-07-10 21:21:00 Test Item Value Reference Range Interpretation Comments ASPARTATE TRANSAMINASE 23 See_Comment [Aut omated message] (test code = ASPARTATE The s ystem which TRANSAMINASE) generated this result transmitted ref erence range: <=37. Th e reference range was not used to interpr et this result as normal/abnormal . [facility]2016-07-10 21:21:00 Test Item Value Reference Range Interpretation Comments Total Protein (test code = Total 8.4 6.4-8.4 Protein) [facility]2016-07-10 21:21:00 Test Item Value Reference Range Interpretation Comments Chloride Lvl (test code = Chloride Lvl) 104 95-109 [facility]2016-07-10 21:21:00 Test Item Value Reference Range Interpretation Comments Potassium Lvl (test code = Potassium 3.9 3.5-5.1 Lvl) [facility]2016-07-10 21:21:00 Test Item Value Reference Range Interpretation Comments Sodium Lvl (test code = Sodium Lvl) 136 135-145 [facility]2016-07-10 21:21:00 Test Item Value Reference Range Interpretation Comments Bili Total (test code = Bili Total) 0.6 0.2-1.3 [facility]2016-07-10 21:21:00 Test Item Value Reference Range Interpretation Comments Calcium Lvl (test code = Calcium Lvl) 8.8 8.5-10.5 [facility]2016-07-10 21:21:00 Test Item Value Reference Range Interpretation Comments CO2 (test code = CO2) 20 24-32 [facility]2016-07-10 21:21:00 Test Item Value Reference Range Interpretation Comments A/G Ratio (test code = A/G Ratio) 1.1 0.7-1.6 [facility]2016-07-10 21:21:00 Test Item Value Reference Range Interpretation Comments Globulin (test code = Globulin) 4.0 2.0-4.0 [facility]2016-07-10 21:21:00 Test Item Value Reference Range Interpretation Comments B/C Ratio (test code = B/C Ratio) 12 6-25 [facility]2016-07-10 21:21:00 Test Item Value Reference Range Interpretation Comments AGAP (test code = AGAP) 15.9 10.0-20.0 [facility] HospitalDoozixpDEYMIUSKPY0787-36-05 21:21:00 Test Item Value Reference Range Interpretation Comments Lymphocytes # (test code = Lymphocytes 2.5 1.0-5.5 #) [facility] HospitalZfoqvhpMQQEOMSGQD4935-11-44 21:21:00 Test Item Value Reference Range Interpretation Comments Basophils # (test code 0.1 See_Comment [Aut omated message] The = Basophils #) system which generated this result tra nsmitted reference range : <=0.2. The reference r bertha was not used to int erpret this result as normal/abnormal . [facility] HospitalQwniynfEDEHQLBMLO8727-44-63 21:21:00 Test Item Value Reference Range Interpretation Comments Monocytes # (test code 0.8 See_Comment [Aut omated message] The = Monocytes #) system which generated this result tra nsmitted reference range : <=0.8. The reference r bertha was not used to int erpret this result as normal/abnormal . [facility] HospitalLopunmvQUQEHBCMVJ6195-18-35 21:21:00 Test Item Value Reference Range Interpretation Comments Monocytes (test code = Monocytes) 5.1 2.0-12.0 [facility] HospitalRrcghjcRCKSBOHXGP8174-95-82 21:21:00 Test Item Value Reference Range Interpretation Comments Lymphocytes (test code = Lymphocytes) 15.3 20.0-40.0 [facility] HospitalKouyggfKRRZJABWQA9844-90-51 21:21:00 Test Item Value Reference Range Interpretation Comments Eosinophils (test code = 0.1 See_Comment [A utomated message] The Eosinophils) system which ge nerated this result tra nsmitted reference range : <=4.0. The reference r bertha was not used to int erpret this result as normal/abnormal . [facility] HospitalAkchhwoIIFUXAAUGJ2840-48-18 21:21:00 Test Item Value Reference Range Interpretation Comments Segs-Bands # (test code = Segs-Bands #) 13.1 1.5-8.1 [facility] HospitalCgzzptoQWCETLCQIE0429-87-11 21:21:00 Test Item Value Reference Range Interpretation Comments Basophils (test code = 0.6 See_Comment [Aut omated message] The Basophils) system which ge nerated this result tra nsmitted reference range : <=1.0. The reference r bertha was not used to int erpret this result as normal/abnormal . [facility] HospitalZfzmfgyYIGEAMRINJ9800-94-20 21:21:00 Test Item Value Reference Range Interpretation Comments Segs (test code = Segs) 78.9 45.0-75.0 [facility] HospitalPgfxtusAZLUPZHELX2190-70-37 21:21:00 Test Item Value Reference Range Interpretation Comments MPV (test code = MPV) 7.8 7.4-10.4 [facility] HospitalLinfrvtCDKKEWDUSI7393-52-74 21:21:00 Test Item Value Reference Range Interpretation Comments MCH (test code = MCH) 26.3 pg 27.0-31.0 [facility] HospitalHcuvfbhOVZEITYFKX4329-87-43 21:21:00 Test Item Value Reference Range Interpretation Comments RDW (test code = RDW) 18.0 11.5-14.5 [facility] HospitalDdemqgaNADTMUZNZX7860-46-89 21:21:00 Test Item Value Reference Range Interpretation Comments MCHC (test code = MCHC) 32.6 32.0-36.0 [facility] HospitalUlsrsqlQYZTAUSCSO3373-50-38 21:21:00 Test Item Value Reference Range Interpretation Comments Platelet (test code = Platelet) 497 133-450 [facility] HospitalOsodertYQOUAHTWOA5057-07-59 21:21:00 Test Item Value Reference Range Interpretation Comments WBC X 10x3 (test code = WBC X 10x3) 16.6 3.7-10.4 [facility] [facility] 21:21:00 Test Item Value Reference Range Interpretation Comments RBC X 10x6 (test code = RBC X 10x6) 4.76 4.20-5.40 [facility]XtafpvrTXOIJXXCRF6398-17-74 21:21:00 Test Item Value Reference Range Interpretation Comments Hgb (test code = Hgb) 12.5 12.0-16.0 [facility]ZxdwvltUZEJDGHANE2797-53-30 21:21:00 Test Item Value Reference Range Interpretation Comments Hct (test code = Hct) 38.3 36.0-48.0 [facility]OSDJCCKXOT2719-66-66 21:21:00 Test Item Value Reference Range Interpretation Comments MCV (test code = MCV) 80.5 80.0-98.0 [facility]2016-07-10 21:21:00 Test Item Value Reference Range Interpretation Comments Lipase Lvl (test code = Lipase Lvl) 139 73-393 [facility]2016-07-10 21:21:00 Test Item Value Reference Range Interpretation Comments eGFR (test code = eGFR) 111 [facility]2016-07-10 21:21:00 Test Item Value Reference Range Interpretation Comments Albumin Lvl (test code = Albumin Lvl) 4.4 3.5-5.0 [facility]2016-07-10 21:21:00 Test Item Value Reference Range Interpretation Comments ALANINE AMINOTRANSFERASE 26 See_Comment [A utomated message] (test code = ALANINE The sys tem which AMINOTRANSFERASE) generated this result transmitted ref erence range: <=65. Th e reference range was not used to int erpret this result as normal/abnormal . [facility]2016-07-10 21:21:00 Test Item Value Reference Range Interpretation Comments BUN (test code = BUN) 9 7-22 [facility]2016-07-10 21:21:00 Test Item Value Reference Range Interpretation Comments Glucose Lvl (test code = Glucose Lvl) 103 70-99 [facility]2016-07-10 21:21:00 Test Item Value Reference Range Interpretation Comments Alk Phos (test code = Alk Phos) 91 39-136 [facility]2016-07-10 21:21:00 Test Item Value Reference Range Interpretation Comments Creatinine Lvl (test code = Creatinine 0.74 0.50-1.40 Lvl) [facility]2016-07-10 21:21:00 Test Item Value Reference Range Interpretation Comments ASPARTATE TRANSAMINASE 23 See_Comment [Aut omated message] (test code = ASPARTATE The s ystem which TRANSAMINASE) generated this result transmitted ref erence range: <=37. Th e reference range was not used to interpr et this result as normal/abnormal . [facility]2016-07-10 21:21:00 Test Item Value Reference Range Interpretation Comments Total Protein (test code = Total 8.4 6.4-8.4 Protein) [facility]2016-07-10 21:21:00 Test Item Value Reference Range Interpretation Comments Chloride Lvl (test code = Chloride Lvl) 104 95-109 [facility]2016-07-10 21:21:00 Test Item Value Reference Range Interpretation Comments Potassium Lvl (test code = Potassium 3.9 3.5-5.1 Lvl) [facility]2016-07-10 21:21:00 Test Item Value Reference Range Interpretation Comments Sodium Lvl (test code = Sodium Lvl) 136 135-145 [facility]2016-07-10 21:21:00 Test Item Value Reference Range Interpretation Comments Bili Total (test code = Bili Total) 0.6 0.2-1.3 [facility]2016-07-10 21:21:00 Test Item Value Reference Range Interpretation Comments Calcium Lvl (test code = Calcium Lvl) 8.8 8.5-10.5 [facility]2016-07-10 21:21:00 Test Item Value Reference Range Interpretation Comments CO2 (test code = CO2) 20 24-32 [facility]2016-07-10 21:21:00 Test Item Value Reference Range Interpretation Comments A/G Ratio (test code = A/G Ratio) 1.1 0.7-1.6 [facility]2016-07-10 21:21:00 Test Item Value Reference Range Interpretation Comments Globulin (test code = Globulin) 4.0 2.0-4.0 [facility]2016-07-10 21:21:00 Test Item Value Reference Range Interpretation Comments B/C Ratio (test code = B/C Ratio) 12 6-25 [facility]2016-07-10 21:21:00 Test Item Value Reference Range Interpretation Comments AGAP (test code = AGAP) 15.9 10.0-20.0 [facility] HospitalYlrrazfNVDMRZCZZL3483-79-26 21:21:00 Test Item Value Reference Range Interpretation Comments Lymphocytes # (test code = Lymphocytes 2.5 1.0-5.5 #) [facility] HospitalRftjjkyLSRHZKMPDI0212-09-70 21:21:00 Test Item Value Reference Range Interpretation Comments Basophils # (test code 0.1 See_Comment [Aut omated message] The = Basophils #) system which generated this result tra nsmitted reference range : <=0.2. The reference r bertha was not used to int erpret this result as normal/abnormal . [facility] HospitalPmpfgncTTRNCGEBQJ3448-69-44 21:21:00 Test Item Value Reference Range Interpretation Comments Monocytes # (test code 0.8 See_Comment [Aut omated message] The = Monocytes #) system which generated this result tra nsmitted reference range : <=0.8. The reference r bertha was not used to int erpret this result as normal/abnormal . [facility] HospitalTjknkhhXYCCEBCHYO3936-93-96 21:21:00 Test Item Value Reference Range Interpretation Comments Monocytes (test code = Monocytes) 5.1 2.0-12.0 [facility] HospitalVdtznvbYWOVBMCVNK8614-44-73 21:21:00 Test Item Value Reference Range Interpretation Comments Lymphocytes (test code = Lymphocytes) 15.3 20.0-40.0 [facility] HospitalGvdtgqjCJFLOEEUIM7877-73-15 21:21:00 Test Item Value Reference Range Interpretation Comments Eosinophils (test code = 0.1 See_Comment [A utomated message] The Eosinophils) system which ge nerated this result tra nsmitted reference range : <=4.0. The reference r bertha was not used to int erpret this result as normal/abnormal . [facility] HospitalAwsayqnKXGCESYGEX7753-47-15 21:21:00 Test Item Value Reference Range Interpretation Comments Segs-Bands # (test code = Segs-Bands #) 13.1 1.5-8.1 [facility] HospitalAhhbmhgKTLEEUOVEZ6398-83-50 21:21:00 Test Item Value Reference Range Interpretation Comments Basophils (test code = 0.6 See_Comment [Aut omated message] The Basophils) system which ge nerated this result tra nsmitted reference range : <=1.0. The reference r bertha was not used to int erpret this result as normal/abnormal . [facility] HospitalVhjwojdYOOKGDIFGX7984-14-25 21:21:00 Test Item Value Reference Range Interpretation Comments Segs (test code = Segs) 78.9 45.0-75.0 [facility] HospitalAlqmidxKZWHNCBJWD2222-88-03 21:21:00 Test Item Value Reference Range Interpretation Comments MPV (test code = MPV) 7.8 7.4-10.4 [facility] HospitalZqludkhXAFVEHSAQO5985-20-60 21:21:00 Test Item Value Reference Range Interpretation Comments MCH (test code = MCH) 26.3 pg 27.0-31.0 [facility] HospitalIbolwijJPTBOBOHNE7723-85-35 21:21:00 Test Item Value Reference Range Interpretation Comments RDW (test code = RDW) 18.0 11.5-14.5 [facility] HospitalMwsnaxlOJZKEZYTRW8218-18-03 21:21:00 Test Item Value Reference Range Interpretation Comments MCHC (test code = MCHC) 32.6 32.0-36.0 [facility] HospitalBjshgfbMVAMKWJSCG8907-62-51 21:21:00 Test Item Value Reference Range Interpretation Comments Platelet (test code = Platelet) 497 133-450 [facility] HospitalBxivpfsIABKQMZDTP6768-21-27 21:21:00 Test Item Value Reference Range Interpretation Comments WBC X 10x3 (test code = WBC X 10x3) 16.6 3.7-10.4 [facility] HospitalAkcaluxFSLOOICZXP4525-13-59 21:21:00 Test Item Value Reference Range Interpretation Comments RBC X 10x6 (test code = RBC X 10x6) 4.76 4.20-5.40 [facility] HospitalBcvagjbAFGFSFQCZO8580-62-33 21:21:00 Test Item Value Reference Range Interpretation Comments Hgb (test code = Hgb) 12.5 12.0-16.0 [facility] HospitalGmikhxgLVXOBVIFDJ0962-51-51 21:21:00 Test Item Value Reference Range Interpretation Comments Hct (test code = Hct) 38.3 36.0-48.0 [facility] HospitalFqgaeofWBWHBJEBZS1536-89-86 21:21:00 Test Item Value Reference Range Interpretation Comments MCV (test code = MCV) 80.5 80.0-98.0 [facility]2016-07-10 21:21:00 Test Item Value Reference Range Interpretation Comments Lipase Lvl (test code = Lipase Lvl) 139 73-393 [facility]2016-07-10 21:21:00 Test Item Value Reference Range Interpretation Comments eGFR (test code = eGFR) 111 [facility]2016-07-10 21:21:00 Test Item Value Reference Range Interpretation Comments Albumin Lvl (test code = Albumin Lvl) 4.4 3.5-5.0 [facility]2016-07-10 21:21:00 Test Item Value Reference Range Interpretation Comments ALANINE AMINOTRANSFERASE 26 See_Comment [A utomated message] (test code = ALANINE The sys tem which AMINOTRANSFERASE) generated this result transmitted ref erence range: <=65. Th e reference range was not used to int erpret this result as normal/abnormal . [facility]2016-07-10 21:21:00 Test Item Value Reference Range Interpretation Comments BUN (test code = BUN) 9 7-22 [facility]2016-07-10 21:21:00 Test Item Value Reference Range Interpretation Comments Glucose Lvl (test code = Glucose Lvl) 103 70-99 [facility]2016-07-10 21:21:00 Test Item Value Reference Range Interpretation Comments Alk Phos (test code = Alk Phos) 91 39-136 [facility]2016-07-10 21:21:00 Test Item Value Reference Range Interpretation Comments Creatinine Lvl (test code = Creatinine 0.74 0.50-1.40 Lvl) [facility]2016-07-10 21:21:00 Test Item Value Reference Range Interpretation Comments ASPARTATE TRANSAMINASE 23 See_Comment [Aut omated message] (test code = ASPARTATE The s ystem which TRANSAMINASE) generated this result transmitted ref erence range: <=37. Th e reference range was not used to interpr et this result as normal/abnormal . [facility]2016-07-10 21:21:00 Test Item Value Reference Range Interpretation Comments Total Protein (test code = Total 8.4 6.4-8.4 Protein) [facility]2016-07-10 21:21:00 Test Item Value Reference Range Interpretation Comments Chloride Lvl (test code = Chloride Lvl) 104 95-109 [facility]2016-07-10 21:21:00 Test Item Value Reference Range Interpretation Comments Potassium Lvl (test code = Potassium 3.9 3.5-5.1 Lvl) [facility]2016-07-10 21:21:00 Test Item Value Reference Range Interpretation Comments Sodium Lvl (test code = Sodium Lvl) 136 135-145 [facility]2016-07-10 21:21:00 Test Item Value Reference Range Interpretation Comments Bili Total (test code = Bili Total) 0.6 0.2-1.3 [facility]2016-07-10 21:21:00 Test Item Value Reference Range Interpretation Comments Calcium Lvl (test code = Calcium Lvl) 8.8 8.5-10.5 [facility]2016-07-10 21:21:00 Test Item Value Reference Range Interpretation Comments CO2 (test code = CO2) 20 24-32 [facility]2016-07-10 21:21:00 Test Item Value Reference Range Interpretation Comments A/G Ratio (test code = A/G Ratio) 1.1 0.7-1.6 [place] 597326-07-10 21:21:00 Test Item Value Reference Range Interpretation Comments Globulin (test code = Globulin) 4.0 2.0-4.0 [facility]2016-07-10 21:21:00 Test Item Value Reference Range Interpretation Comments B/C Ratio (test code = B/C Ratio) 12 6-25 [facility]2016-07-10 21:21:00 Test Item Value Reference Range Interpretation Comments AGAP (test code = AGAP) 15.9 10.0-20.0 [facility] HospitalSsewerzYIUXIGEBJI1188-80-69 21:21:00 Test Item Value Reference Range Interpretation Comments Lymphocytes # (test code = Lymphocytes 2.5 1.0-5.5 #) [facility] HospitalWzjkspcXBJNSZSGZF3297-24-67 21:21:00 Test Item Value Reference Range Interpretation Comments Basophils # (test code 0.1 See_Comment [Aut omated message] The = Basophils #) system which generated this result tra nsmitted reference range : <=0.2. The reference r bertha was not used to int erpret this result as normal/abnormal . [facility] HospitalTzlxcqhHHXAEFISBI1341-43-44 21:21:00 Test Item Value Reference Range Interpretation Comments Monocytes # (test code 0.8 See_Comment [Aut omated message] The = Monocytes #) system which generated this result tra nsmitted reference range : <=0.8. The reference r bertha was not used to int erpret this result as normal/abnormal . [facility] HospitalHmrzjfcBDNIGNKGUG5466-16-96 21:21:00 Test Item Value Reference Range Interpretation Comments Monocytes (test code = Monocytes) 5.1 2.0-12.0 [facility] HospitalQbrtudwNKJHHZMPIH3396-09-45 21:21:00 Test Item Value Reference Range Interpretation Comments Lymphocytes (test code = Lymphocytes) 15.3 20.0-40.0 [facility] HospitalVboqiwdRSOBJOEVGM3701-64-01 21:21:00 Test Item Value Reference Range Interpretation Comments Eosinophils (test code = 0.1 See_Comment [A utomated message] The Eosinophils) system which ge nerated this result tra nsmitted reference range : <=4.0. The reference r bertha was not used to int erpret this result as normal/abnormal . [facility] HospitalOjbumonCJDSYZIODP8255-40-54 21:21:00 Test Item Value Reference Range Interpretation Comments Segs-Bands # (test code = Segs-Bands #) 13.1 1.5-8.1 [facility] HospitalWvjhagtVUUIPBMSZT6453-61-57 21:21:00 Test Item Value Reference Range Interpretation Comments Basophils (test code = 0.6 See_Comment [Aut omated message] The Basophils) system which ge nerated this result tra nsmitted reference range : <=1.0. The reference r bertha was not used to int erpret this result as normal/abnormal . [facility] HospitalQrgpyzxBQEEJLTLIW3309-96-43 21:21:00 Test Item Value Reference Range Interpretation Comments Segs (test code = Segs) 78.9 45.0-75.0 [facility] HospitalPsecsasQKRQXPJWQA9112-67-68 21:21:00 Test Item Value Reference Range Interpretation Comments MPV (test code = MPV) 7.8 7.4-10.4 [facility] HospitalKcwxkpxGKDWIEELEG9990-00-22 21:21:00 Test Item Value Reference Range Interpretation Comments MCH (test code = MCH) 26.3 pg 27.0-31.0 [facility] HospitalQkenlanLTNLFMPPPD1781-24-04 21:21:00 Test Item Value Reference Range Interpretation Comments RDW (test code = RDW) 18.0 11.5-14.5 [facility] HospitalTpvgwdgMRDAWSCWQS1873-49-49 21:21:00 Test Item Value Reference Range Interpretation Comments MCHC (test code = MCHC) 32.6 32.0-36.0 [facility] HospitalPietkwxCRWHNZMEFD3829-87-35 21:21:00 Test Item Value Reference Range Interpretation Comments Platelet (test code = Platelet) 497 133-450 [facility] HospitalYmbfartCWZZOFFYLI4070-74-39 21:21:00 Test Item Value Reference Range Interpretation Comments WBC X 10x3 (test code = WBC X 10x3) 16.6 3.7-10.4 [facility] HospitalPomjxdyZHWGYNTZFO2363-39-24 21:21:00 Test Item Value Reference Range Interpretation Comments RBC X 10x6 (test code = RBC X 10x6) 4.76 4.20-5.40 [facility] HospitalKfyxrceJVQTSUOCMF7757-45-87 21:21:00 Test Item Value Reference Range Interpretation Comments Hgb (test code = Hgb) 12.5 12.0-16.0 [facility] HospitalVapcnggNGPFTNDHKS1487-63-58 21:21:00 Test Item Value Reference Range Interpretation Comments Hct (test code = Hct) 38.3 36.0-48.0 [facility] HospitalCmpwsozVZHRZWMFOI4521-34-49 21:21:00 Test Item Value Reference Range Interpretation Comments MCV (test code = MCV) 80.5 80.0-98.0 [facility]2016-07-10 00:23:00 Test Item Value Reference Range Interpretation Comments Lipase Lvl (test code = Lipase Lvl) 129 73-393 [facility]plmbVHZKFEUAPWOQ3417-60-27 00:23:00 Test Item Value Reference Range Interpretation Comments AGAP (test code = AGAP) 11.7 10.0-20.0 [facility]RaavqsoNPRFEFVNOXGW5394-45-58 00:23:00 Test Item Value Reference Range Interpretation Comments eGFR (test code = eGFR) 109 [facility]VcpwqyaYRAFBOYYMTQV4395-31-91 00:23:00 Test Item Value Reference Range Interpretation Comments BUN (test code = BUN) 8 7-22 [facility]SpnjetrZJYDJMMMZYNF5944-70-34 00:23:00 Test Item Value Reference Range Interpretation Comments Glucose Lvl (test code = Glucose Lvl) 95 70-99 [facility]DlrmyrkHLDUYDEPCGPB1347-98-16 00:23:00 Test Item Value Reference Range Interpretation Comments Sodium Lvl (test code = Sodium Lvl) 139 135-145 [facility]YmpikvcHYGPRBFQLZZF2776-09-84 00:23:00 Test Item Value Reference Range Interpretation Comments Creatinine Lvl (test code = Creatinine 0.76 0.50-1.40 Lvl) [facility]VqgbfcaJSQUNISCMVUY9900-37-81 00:23:00 Test Item Value Reference Range Interpretation Comments CO2 (test code = CO2) 25 24-32 [facility]QihunvgNXONLVSXNQTD0020-69-17 00:23:00 Test Item Value Reference Range Interpretation Comments Calcium Lvl (test code = Calcium Lvl) 8.8 8.5-10.5 [facility] MichiganRinpvtsLJKHITHHVPCW5140-20-76 00:23:00 Test Item Value Reference Range Interpretation Comments Chloride Lvl (test code = Chloride Lvl) 106 95-109 [facility]WznjreiEBXHYVKSLOVK5902-96-98 00:23:00 Test Item Value Reference Range Interpretation Comments Potassium Lvl (test code = Potassium 3.7 3.5-5.1 Lvl) [facility] HospitalKpdnjbnTDNWWSCMTW0267-75-37 00:23:00 Test Item Value Reference Range Interpretation Comments Hct (test code = Hct) 36.3 36.0-48.0 [facility] HospitalKmmribrACTBSNHUFH9875-26-53 00:23:00 Test Item Value Reference Range Interpretation Comments Hgb (test code = Hgb) 11.6 12.0-16.0 [facility] HospitalCbrquvsZVEBIFUVFR6352-92-00 00:23:00 Test Item Value Reference Range Interpretation Comments RBC X 10x6 (test code = RBC X 10x6) 4.47 4.20-5.40 [facility] HospitalRniilabFLXURXFVNV6576-94-35 00:23:00 Test Item Value Reference Range Interpretation Comments Platelet (test code = Platelet) 450 133-450 [facility] HospitalXhlizobWXHYIALTTI5655-81-98 00:23:00 Test Item Value Reference Range Interpretation Comments RDW (test code = RDW) 18.3 11.5-14.5 [facility] HospitalCeclcvxXUBMUABNGY5021-19-90 00:23:00 Test Item Value Reference Range Interpretation Comments MCHC (test code = MCHC) 31.9 32.0-36.0 [facility] HospitalBfiywgfBSKZTMUNSB7486-40-05 00:23:00 Test Item Value Reference Range Interpretation Comments MCH (test code = MCH) 25.9 pg 27.0-31.0 [facility] HospitalSkfsegmKIITEOTBJD6526-72-67 00:23:00 Test Item Value Reference Range Interpretation Comments MCV (test code = MCV) 81.3 80.0-98.0 [facility] HospitalJeizaypIEIEBGMBPC3821-48-85 00:23:00 Test Item Value Reference Range Interpretation Comments MPV (test code = MPV) 8.0 7.4-10.4 [facility] HospitalHlxokidWSFKGKHGOQ0849-09-84 00:23:00 Test Item Value Reference Range Interpretation Comments WBC X 10x3 (test code = WBC X 10x3) 16.4 3.7-10.4 [facility] HospitalJhglmcxZZULOWLLXA0852-59-21 00:23:00 Test Item Value Reference Range Interpretation Comments Eosinophils # (test code 0.1 See_Comment [A utomated message] The = Eosinophils #) system whic h generated this result tra nsmitted reference range : <=0.5. The reference r bertha was not used to int erpret this result as normal/abnormal . [facility] HospitalNyhuqdzOFEEOKUSVZ4667-12-67 00:23:00 Test Item Value Reference Range Interpretation Comments Monocytes # (test code 0.8 See_Comment [Aut omated message] The = Monocytes #) system which generated this result tra nsmitted reference range : <=0.8. The reference r bertha was not used to int erpret this result as normal/abnormal . [facility] HospitalDqkwozbDBAOSKLAQD8893-97-11 00:23:00 Test Item Value Reference Range Interpretation Comments Basophils # (test code 0.1 See_Comment [Aut omated message] The = Basophils #) system which generated this result tra nsmitted reference range : <=0.2. The reference r bertha was not used to int erpret this result as normal/abnormal . [facility] HospitalTrjgwfiOBRRQILADF0680-18-65 00:23:00 Test Item Value Reference Range Interpretation Comments Lymphocytes (test code = Lymphocytes) 14.3 20.0-40.0 [facility] HospitalTlxkvvhSAVZJNCFXM8269-20-81 00:23:00 Test Item Value Reference Range Interpretation Comments Segs (test code = Segs) 80.0 45.0-75.0 [facility] HospitalBpzkdoyKJSATTZJBP4280-32-33 00:23:00 Test Item Value Reference Range Interpretation Comments Monocytes (test code = Monocytes) 4.7 2.0-12.0 [facility] HospitalHszeylkDNGRMSGHKV2513-09-75 00:23:00 Test Item Value Reference Range Interpretation Comments Lymphocytes # (test code = Lymphocytes 2.4 1.0-5.5 #) [facility] HospitalHdfwwyxQNAOWNIHFB8843-30-40 00:23:00 Test Item Value Reference Range Interpretation Comments Segs-Bands # (test code = Segs-Bands #) 13.1 1.5-8.1 [facility] HospitalXnedsqzHCXBSUDUBF4350-57-78 00:23:00 Test Item Value Reference Range Interpretation Comments Basophils (test code = 0.4 See_Comment [Aut omated message] The Basophils) system which ge nerated this result tra nsmitted reference range : <=1.0. The reference r bertha was not used to int erpret this result as normal/abnormal . [facility] HospitalXluujvoNMTGIXDJDA3743-29-35 00:23:00 Test Item Value Reference Range Interpretation Comments Eosinophils (test code = 0.6 See_Comment [A utomated message] The Eosinophils) system which ge nerated this result tra nsmitted reference range : <=4.0. The reference r bertha was not used to int erpret this result as normal/abnormal . [facility]2016-07-10 00:23:00 Test Item Value Reference Range Interpretation Comments Lipase Lvl (test code = Lipase Lvl) 129 73-393 [facility]OzyhhgaPOATTBKGPTDC1396-35-45 00:23:00 Test Item Value Reference Range Interpretation Comments AGAP (test code = AGAP) 11.7 10.0-20.0 [facility]KophwhyNANCKGKLPRCV0107-46-18 00:23:00 Test Item Value Reference Range Interpretation Comments eGFR (test code = eGFR) 109 [facility]SvbibtwDWTHWEVKHHJJ2999-22-11 00:23:00 Test Item Value Reference Range Interpretation Comments BUN (test code = BUN) 8 7-22 [facility]FldxjvsHBPGSNIUQKKL9891-43-09 00:23:00 Test Item Value Reference Range Interpretation Comments Glucose Lvl (test code = Glucose Lvl) 95 70-99 [facility] MichiganBpiuhwhCTHABSLPYVVG3969-12-78 00:23:00 Test Item Value Reference Range Interpretation Comments Sodium Lvl (test code = Sodium Lvl) 139 135-145 [facility]JsombwaISDYLRAIKYYF2375-97-24 00:23:00 Test Item Value Reference Range Interpretation Comments Creatinine Lvl (test code = Creatinine 0.76 0.50-1.40 Lvl) [facility]JhdpuloIUAGLHKDTEZP8690-45-91 00:23:00 Test Item Value Reference Range Interpretation Comments CO2 (test code = CO2) 25 24-32 [facility]LlwtzvgTULLNFQOPKAC7273-40-77 00:23:00 Test Item Value Reference Range Interpretation Comments Calcium Lvl (test code = Calcium Lvl) 8.8 8.5-10.5 [facility] MichiganHmgxxopIXTOXUIPCGCL7088-28-17 00:23:00 Test Item Value Reference Range Interpretation Comments Chloride Lvl (test code = Chloride Lvl) 106 95-109 [facility] MichiganTfydyseAAZAEMONKNPU6146-02-98 00:23:00 Test Item Value Reference Range Interpretation Comments Potassium Lvl (test code = Potassium 3.7 3.5-5.1 Lvl) [facility] HospitalCgyxumtEFGPOTXTOO2351-54-21 00:23:00 Test Item Value Reference Range Interpretation Comments Hct (test code = Hct) 36.3 36.0-48.0 [facility] HospitalUyijqleDZNOZOLCTI8410-88-81 00:23:00 Test Item Value Reference Range Interpretation Comments Hgb (test code = Hgb) 11.6 12.0-16.0 [facility] HospitalZqpilqsVBBMRSKDGH5673-68-91 00:23:00 Test Item Value Reference Range Interpretation Comments RBC X 10x6 (test code = RBC X 10x6) 4.47 4.20-5.40 [facility] HospitalUxxzgyuLWVWCNOQAB2244-67-24 00:23:00 Test Item Value Reference Range Interpretation Comments Platelet (test code = Platelet) 450 133-450 [facility] HospitalZbiqkjlLZMBQOBLQO5925-18-97 00:23:00 Test Item Value Reference Range Interpretation Comments RDW (test code = RDW) 18.3 11.5-14.5 [facility] HospitalZzhoptcTVKNHIRYZL8544-31-52 00:23:00 Test Item Value Reference Range Interpretation Comments MCHC (test code = MCHC) 31.9 32.0-36.0 [facility] HospitalWkwdsnsEIMTPMLHBB6281-29-61 00:23:00 Test Item Value Reference Range Interpretation Comments MCH (test code = MCH) 25.9 pg 27.0-31.0 [facility] HospitalBnlceplFBYQRNQHVC0866-88-96 00:23:00 Test Item Value Reference Range Interpretation Comments MCV (test code = MCV) 81.3 80.0-98.0 [facility] HospitalWfjcwzhDUWNZQUIWT4385-40-39 00:23:00 Test Item Value Reference Range Interpretation Comments MPV (test code = MPV) 8.0 7.4-10.4 [facility] HospitalUsrrbldGNUNFYXHWY4720-64-91 00:23:00 Test Item Value Reference Range Interpretation Comments WBC X 10x3 (test code = WBC X 10x3) 16.4 3.7-10.4 [facility] HospitalChpbndoQEGYAGJABZ7655-95-45 00:23:00 Test Item Value Reference Range Interpretation Comments Eosinophils # (test code 0.1 See_Comment [A utomated message] The = Eosinophils #) system whic h generated this result tra nsmitted reference range : <=0.5. The reference r bertha was not used to int erpret this result as normal/abnormal . [facility] HospitalPjtlshbAZHRGZWVHD4696-15-53 00:23:00 Test Item Value Reference Range Interpretation Comments Monocytes # (test code 0.8 See_Comment [Aut omated message] The = Monocytes #) system which generated this result tra nsmitted reference range : <=0.8. The reference r bertha was not used to int erpret this result as normal/abnormal . [facility] HospitalVlorljuUSKUJZKMJP2943-51-57 00:23:00 Test Item Value Reference Range Interpretation Comments Basophils # (test code 0.1 See_Comment [Aut omated message] The = Basophils #) system which generated this result tra nsmitted reference range : <=0.2. The reference r bertha was not used to int erpret this result as normal/abnormal . [facility] HospitalHigdztxQCWGYNSERH6316-26-77 00:23:00 Test Item Value Reference Range Interpretation Comments Lymphocytes (test code = Lymphocytes) 14.3 20.0-40.0 [facility] HospitalRkjsujoZCLQDISAQZ1280-81-17 00:23:00 Test Item Value Reference Range Interpretation Comments Segs (test code = Segs) 80.0 45.0-75.0 [facility] HospitalLgztzzoFHLWEPAOSA2536-16-58 00:23:00 Test Item Value Reference Range Interpretation Comments Monocytes (test code = Monocytes) 4.7 2.0-12.0 [facility] HospitalTqydlujPKNDKSAEQI2038-42-05 00:23:00 Test Item Value Reference Range Interpretation Comments Lymphocytes # (test code = Lymphocytes 2.4 1.0-5.5 #) [facility] HospitalWbxejlnXRIHQQYFNM6706-59-26 00:23:00 Test Item Value Reference Range Interpretation Comments Segs-Bands # (test code = Segs-Bands #) 13.1 1.5-8.1 [facility] HospitalZgvyqyhCGWSROOODB5186-49-95 00:23:00 Test Item Value Reference Range Interpretation Comments Basophils (test code = 0.4 See_Comment [Aut omated message] The Basophils) system which ge nerated this result tra nsmitted reference range : <=1.0. The reference r bertha was not used to int erpret this result as normal/abnormal . [facility] HospitalBbvilnkUEDQRNLAHL0515-21-69 00:23:00 Test Item Value Reference Range Interpretation Comments Eosinophils (test code = 0.6 See_Comment [A utomated message] The Eosinophils) system which ge nerated this result tra nsmitted reference range : <=4.0. The reference r bertha was not used to int erpret this result as normal/abnormal . [facility] ZIEHF3697-43-87 00:23:00 Test Item Value Reference Range Interpretation Comments Lipase Lvl (test code = Lipase Lvl) 129 73-393 [facility]HkdazmnPDBSCOADVOST9685-90-77 00:23:00 Test Item Value Reference Range Interpretation Comments AGAP (test code = AGAP) 11.7 10.0-20.0 [facility]FoqjsxjMAYCWINMCJFS0410-96-12 00:23:00 Test Item Value Reference Range Interpretation Comments eGFR (test code = eGFR) 109 [facility]FzcvhxrOHVTJFVCFTLH2932-92-85 00:23:00 Test Item Value Reference Range Interpretation Comments BUN (test code = BUN) 8 7-22 [facility] MichiganZsentbxMBLIMJUXSTQH9810-70-89 00:23:00 Test Item Value Reference Range Interpretation Comments Glucose Lvl (test code = Glucose Lvl) 95 70-99 [facility] MichiganHposqnuOEHIDYONVLQQ3558-24-33 00:23:00 Test Item Value Reference Range Interpretation Comments Sodium Lvl (test code = Sodium Lvl) 139 135-145 [facility]BoxcbuzAGMIOYBLBTQP6512-13-87 00:23:00 Test Item Value Reference Range Interpretation Comments Creatinine Lvl (test code = Creatinine 0.76 0.50-1.40 Lvl) [facility]MpzwzvgKSHQBNVOGEHC1344-82-50 00:23:00 Test Item Value Reference Range Interpretation Comments CO2 (test code = CO2) 25 24-32 [facility] MichiganZpvhuvzKUSGPNIYAEKT8056-65-15 00:23:00 Test Item Value Reference Range Interpretation Comments Calcium Lvl (test code = Calcium Lvl) 8.8 8.5-10.5 [facility] MichiganBajurimWUUEULDYIJMV2328-31-27 00:23:00 Test Item Value Reference Range Interpretation Comments Chloride Lvl (test code = Chloride Lvl) 106 95-109 [facility] MichiganBoilvaqDLVKEEAHTAHO7746-51-85 00:23:00 Test Item Value Reference Range Interpretation Comments Potassium Lvl (test code = Potassium 3.7 3.5-5.1 Lvl) [facility] HospitalNbnvcfeTNHBSWEWBT1152-05-12 00:23:00 Test Item Value Reference Range Interpretation Comments Hct (test code = Hct) 36.3 36.0-48.0 [facility] HospitalFvcwdnnHATHGWDBSR9821-99-75 00:23:00 Test Item Value Reference Range Interpretation Comments Hgb (test code = Hgb) 11.6 12.0-16.0 [facility] HospitalRsenefhOXBUIKTAWF6168-97-61 00:23:00 Test Item Value Reference Range Interpretation Comments RBC X 10x6 (test code = RBC X 10x6) 4.47 4.20-5.40 [facility] HospitalYhpdjylGFAHTOGNED2415-31-18 00:23:00 Test Item Value Reference Range Interpretation Comments Platelet (test code = Platelet) 450 133-450 [facility] HospitalNhcsshlCKPDMYJULN8707-86-68 00:23:00 Test Item Value Reference Range Interpretation Comments RDW (test code = RDW) 18.3 11.5-14.5 [facility] HospitalYzwyyeoGNXQEFZEAG6534-79-95 00:23:00 Test Item Value Reference Range Interpretation Comments MCHC (test code = MCHC) 31.9 32.0-36.0 [facility] HospitalPhvkgolPTANGZENMA9206-87-30 00:23:00 Test Item Value Reference Range Interpretation Comments MCH (test code = MCH) 25.9 pg 27.0-31.0 [facility] HospitalNryrtbyPLNYVRSCIH9281-54-09 00:23:00 Test Item Value Reference Range Interpretation Comments MCV (test code = MCV) 81.3 80.0-98.0 [facility] HospitalTlhdiaoXATXZFJDEJ8662-80-48 00:23:00 Test Item Value Reference Range Interpretation Comments MPV (test code = MPV) 8.0 7.4-10.4 [facility] HospitalMhvaisgOVAGIOSAYB9785-39-70 00:23:00 Test Item Value Reference Range Interpretation Comments WBC X 10x3 (test code = WBC X 10x3) 16.4 3.7-10.4 [facility] HospitalKxcfseeBCVBJTSYRR1821-07-03 00:23:00 Test Item Value Reference Range Interpretation Comments Eosinophils # (test code 0.1 See_Comment [A utomated message] The = Eosinophils #) system whic h generated this result tra nsmitted reference range : <=0.5. The reference r bertha was not used to int erpret this result as normal/abnormal . [facility] HospitalPqhfobsFOGXEUZGLQ9692-84-26 00:23:00 Test Item Value Reference Range Interpretation Comments Monocytes # (test code 0.8 See_Comment [Aut omated message] The = Monocytes #) system which generated this result tra nsmitted reference range : <=0.8. The reference r bertha was not used to int erpret this result as normal/abnormal . [facility] HospitalDzkrymzZRQVQUWDSY1581-65-29 00:23:00 Test Item Value Reference Range Interpretation Comments Basophils # (test code 0.1 See_Comment [Aut omated message] The = Basophils #) system which generated this result tra nsmitted reference range : <=0.2. The reference r bertha was not used to int erpret this result as normal/abnormal . [facility] HospitalMmdqzdiXUIJEVYKJH0997-51-80 00:23:00 Test Item Value Reference Range Interpretation Comments Lymphocytes (test code = Lymphocytes) 14.3 20.0-40.0 [facility] HospitalAumgkduUGIGKSIJPM2789-17-24 00:23:00 Test Item Value Reference Range Interpretation Comments Segs (test code = Segs) 80.0 45.0-75.0 [facility] HospitalXyxardtROOMREWDBX2273-49-42 00:23:00 Test Item Value Reference Range Interpretation Comments Monocytes (test code = Monocytes) 4.7 2.0-12.0 [facility] HospitalCylibrgZZMANJRVDS9800-05-23 00:23:00 Test Item Value Reference Range Interpretation Comments Lymphocytes # (test code = Lymphocytes 2.4 1.0-5.5 #) [facility] HospitalGkovaxoRJVXPPTFSC0864-15-83 00:23:00 Test Item Value Reference Range Interpretation Comments Segs-Bands # (test code = Segs-Bands #) 13.1 1.5-8.1 [facility] HospitalRzmuanhDZGKLFOAHV2630-37-67 00:23:00 Test Item Value Reference Range Interpretation Comments Basophils (test code = 0.4 See_Comment [Aut omated message] The Basophils) system which ge nerated this result tra nsmitted reference range : <=1.0. The reference r bertha was not used to int erpret this result as normal/abnormal . [facility] HospitalDsgcldmZQVPYSBJQJ3592-95-00 00:23:00 Test Item Value Reference Range Interpretation Comments Eosinophils (test code = 0.6 See_Comment [A utomated message] The Eosinophils) system which ge nerated this result tra nsmitted reference range : <=4.0. The reference r bertha was not used to int erpret this result as normal/abnormal . [facility] HospitalCHEM REHPQ2962-73-57 00:23:00 Test Item Value Reference Range Interpretation Comments Lipase Lvl (test code = Lipase Lvl) 129 73-393 [facility]LnkxrxiZREEVEHXUKVK1310-82-05 00:23:00 Test Item Value Reference Range Interpretation Comments AGAP (test code = AGAP) 11.7 10.0-20.0 [facility] MichiganWtkkzcuXLWQWOBCSOCP7359-64-25 00:23:00 Test Item Value Reference Range Interpretation Comments eGFR (test code = eGFR) 109 [facility] MichiganEigilbiFRKCAPYYSZJY1300-47-25 00:23:00 Test Item Value Reference Range Interpretation Comments BUN (test code = BUN) 8 7-22 [facility]CffjfdsMPAYEHJOSOUH5402-59-40 00:23:00 Test Item Value Reference Range Interpretation Comments Glucose Lvl (test code = Glucose Lvl) 95 70-99 [facility]XvntdqoHGDAAVILXOXE6773-28-73 00:23:00 Test Item Value Reference Range Interpretation Comments Sodium Lvl (test code = Sodium Lvl) 139 135-145 [facility]KehzjpiHMIAXZWXIOMU1876-49-04 00:23:00 Test Item Value Reference Range Interpretation Comments Creatinine Lvl (test code = Creatinine 0.76 0.50-1.40 Lvl) [facility] MichiganHuzdacjKHTTLIHSZULZ5764-04-18 00:23:00 Test Item Value Reference Range Interpretation Comments CO2 (test code = CO2) 25 24-32 [facility] MichiganTceuhouTONCUIDSCFSD1774-42-68 00:23:00 Test Item Value Reference Range Interpretation Comments Calcium Lvl (test code = Calcium Lvl) 8.8 8.5-10.5 [facility]NvwwnnbBQIBSGDDKHVJ1364-26-58 00:23:00 Test Item Value Reference Range Interpretation Comments Chloride Lvl (test code = Chloride Lvl) 106 95-109 [facility]WgjnrnaBDKNGSFQDVJD3206-47-14 00:23:00 Test Item Value Reference Range Interpretation Comments Potassium Lvl (test code = Potassium 3.7 3.5-5.1 Lvl) [facility] SystemViahwhpDGOHJKIXYO2159-21-92 00:23:00 Test Item Value Reference Range Interpretation Comments Hct (test code = Hct) 36.3 36.0-48.0 [facility] HospitalJlnowqhAKFWHLORAO7023-37-60 00:23:00 Test Item Value Reference Range Interpretation Comments Hgb (test code = Hgb) 11.6 12.0-16.0 [facility] HospitalHsptysaJHOBRUGUNB7844-58-03 00:23:00 Test Item Value Reference Range Interpretation Comments RBC X 10x6 (test code = RBC X 10x6) 4.47 4.20-5.40 [facility] HospitalNajdsouKLGDWSNCEY7277-76-08 00:23:00 Test Item Value Reference Range Interpretation Comments Platelet (test code = Platelet) 450 133-450 [facility] HospitalOjyffxqUZISDWFKSD6824-04-29 00:23:00 Test Item Value Reference Range Interpretation Comments RDW (test code = RDW) 18.3 11.5-14.5 [facility] HospitalRuzebxwRZLXLUMLHC6460-52-57 00:23:00 Test Item Value Reference Range Interpretation Comments MCHC (test code = MCHC) 31.9 32.0-36.0 [facility] HospitalFwkgfmzLTMMYIDTTI8899-51-16 00:23:00 Test Item Value Reference Range Interpretation Comments MCH (test code = MCH) 25.9 pg 27.0-31.0 [facility] HospitalCejlhufXJQFTSMFUF5473-35-67 00:23:00 Test Item Value Reference Range Interpretation Comments MCV (test code = MCV) 81.3 80.0-98.0 [facility] HospitalLvlejilBMTHZLMNJH6159-33-42 00:23:00 Test Item Value Reference Range Interpretation Comments MPV (test code = MPV) 8.0 7.4-10.4 [facility] HospitalHweuezhCVRVPCSTML2109-42-75 00:23:00 Test Item Value Reference Range Interpretation Comments WBC X 10x3 (test code = WBC X 10x3) 16.4 3.7-10.4 [facility] HospitalLzsuvvaTPRSHOSCOK3782-58-77 00:23:00 Test Item Value Reference Range Interpretation Comments Eosinophils # (test code 0.1 See_Comment [A utomated message] The = Eosinophils #) system whic h generated this result tra nsmitted reference range : <=0.5. The reference r bertha was not used to int erpret this result as normal/abnormal . [facility] HospitalPkodyepAFHQFGBYJM6868-95-29 00:23:00 Test Item Value Reference Range Interpretation Comments Monocytes # (test code 0.8 See_Comment [Aut omated message] The = Monocytes #) system which generated this result tra nsmitted reference range : <=0.8. The reference r bertha was not used to int erpret this result as normal/abnormal . [facility] HospitalXuuslxkHUCRPQUWJZ9633-17-43 00:23:00 Test Item Value Reference Range Interpretation Comments Basophils # (test code 0.1 See_Comment [Aut omated message] The = Basophils #) system which generated this result tra nsmitted reference range : <=0.2. The reference r bertha was not used to int erpret this result as normal/abnormal . [facility] HospitalZtatlmbSFSWEYGMKL7727-90-51 00:23:00 Test Item Value Reference Range Interpretation Comments Lymphocytes (test code = Lymphocytes) 14.3 20.0-40.0 [facility] HospitalDjqhnydZYMIXQTXNQ6590-90-45 00:23:00 Test Item Value Reference Range Interpretation Comments Segs (test code = Segs) 80.0 45.0-75.0 [facility] HospitalPebcereLYHBQTADPJ8491-08-49 00:23:00 Test Item Value Reference Range Interpretation Comments Monocytes (test code = Monocytes) 4.7 2.0-12.0 [facility] HospitalIieonnpXTBRFXNQXI3803-16-09 00:23:00 Test Item Value Reference Range Interpretation Comments Lymphocytes # (test code = Lymphocytes 2.4 1.0-5.5 #) [facility] HospitalJawqotnEKNMDCICYX3161-52-05 00:23:00 Test Item Value Reference Range Interpretation Comments Segs-Bands # (test code = Segs-Bands #) 13.1 1.5-8.1 [facility] HospitalIcsliyoDTRNDGIYAM3910-14-30 00:23:00 Test Item Value Reference Range Interpretation Comments Basophils (test code = 0.4 See_Comment [Aut omated message] The Basophils) system which ge nerated this result tra nsmitted reference range : <=1.0. The reference r bertha was not used to int erpret this result as normal/abnormal . [facility] HospitalPnvokydTTHMNRXLXL0061-23-33 00:23:00 Test Item Value Reference Range Interpretation Comments Eosinophils (test code = 0.6 See_Comment [A utomated message] The Eosinophils) system which ge nerated this result tra nsmitted reference range : <=4.0. The reference r bertha was not used to int erpret this result as normal/abnormal . [facility]CHEM HIXQL9210-08-67 00:23:00 Test Item Value Reference Range Interpretation Comments Lipase Lvl (test code = Lipase Lvl) 129 73-393 [facility]NdtiofjOCYCWAVQFQYA8109-52-50 00:23:00 Test Item Value Reference Range Interpretation Comments AGAP (test code = AGAP) 11.7 10.0-20.0 [facility]WefsvilYXTTSQULKREV5734-36-94 00:23:00 Test Item Value Reference Range Interpretation Comments eGFR (test code = eGFR) 109 [facility] MichiganLbxpzjiJHMUTMEOMLAE7968-98-21 00:23:00 Test Item Value Reference Range Interpretation Comments BUN (test code = BUN) 8 7-22 [facility] MichiganUshzhpgDYUOJKTGWMVY9448-58-80 00:23:00 Test Item Value Reference Range Interpretation Comments Glucose Lvl (test code = Glucose Lvl) 95 70-99 [facility] MichiganTnzkxugPNHDCUPTOENE7253-35-21 00:23:00 Test Item Value Reference Range Interpretation Comments Sodium Lvl (test code = Sodium Lvl) 139 135-145 [facility] MichiganNiqcnbyZILPDKQTOMSZ7987-41-97 00:23:00 Test Item Value Reference Range Interpretation Comments Creatinine Lvl (test code = Creatinine 0.76 0.50-1.40 Lvl) [facility] MichiganJdtezpmQKFCQWSUXOYL4296-80-73 00:23:00 Test Item Value Reference Range Interpretation Comments CO2 (test code = CO2) 25 24-32 [facility] MichiganZtuegxlPWOGCYMLSLNV0478-40-87 00:23:00 Test Item Value Reference Range Interpretation Comments Calcium Lvl (test code = Calcium Lvl) 8.8 8.5-10.5 [facility] MichiganCxhrlagBRFWUETWWGJQ8037-62-55 00:23:00 Test Item Value Reference Range Interpretation Comments Chloride Lvl (test code = Chloride Lvl) 106 95-109 [facility] MichiganQwxpbeuTAFATOKJWZEO3694-63-08 00:23:00 Test Item Value Reference Range Interpretation Comments Potassium Lvl (test code = Potassium 3.7 3.5-5.1 Lvl) [facility] HospitalKxhxwinCHBCXPUMFK4029-80-64 00:23:00 Test Item Value Reference Range Interpretation Comments Hct (test code = Hct) 36.3 36.0-48.0 [facility] HospitalHgffekcEPHGVLJJOV1485-51-02 00:23:00 Test Item Value Reference Range Interpretation Comments Hgb (test code = Hgb) 11.6 12.0-16.0 [facility] HospitalOqrxodxQKBNWGWCYA3911-65-01 00:23:00 Test Item Value Reference Range Interpretation Comments RBC X 10x6 (test code = RBC X 10x6) 4.47 4.20-5.40 [facility] HospitalIksgqeyQNJQAITHVC0426-52-74 00:23:00 Test Item Value Reference Range Interpretation Comments Platelet (test code = Platelet) 450 133-450 [facility] HospitalZzucnvwIUVEBORRGG3755-21-64 00:23:00 Test Item Value Reference Range Interpretation Comments RDW (test code = RDW) 18.3 11.5-14.5 [facility] HospitalFsclnjrXBEOQZAOBL7067-39-88 00:23:00 Test Item Value Reference Range Interpretation Comments MCHC (test code = MCHC) 31.9 32.0-36.0 [facility] HospitalQhrgvmvCDDGIRDKID3993-29-12 00:23:00 Test Item Value Reference Range Interpretation Comments MCH (test code = MCH) 25.9 pg 27.0-31.0 [facility] HospitalQgyrjqaKPYDCKINLM8029-12-93 00:23:00 Test Item Value Reference Range Interpretation Comments MCV (test code = MCV) 81.3 80.0-98.0 [facility] HospitalSvkssocPOHHXZRZJY9673-32-47 00:23:00 Test Item Value Reference Range Interpretation Comments MPV (test code = MPV) 8.0 7.4-10.4 [facility] HospitalRmyntkxSHEVRDFHTG9033-96-23 00:23:00 Test Item Value Reference Range Interpretation Comments WBC X 10x3 (test code = WBC X 10x3) 16.4 3.7-10.4 [facility] HospitalJdqkcftTFMHTGKLUZ7598-22-96 00:23:00 Test Item Value Reference Range Interpretation Comments Eosinophils # (test code 0.1 See_Comment [A utomated message] The = Eosinophils #) system whic h generated this result tra nsmitted reference range : <=0.5. The reference r bertha was not used to int erpret this result as normal/abnormal . [facility] HospitalLgqugppSBMBKIFIWJ4577-38-52 00:23:00 Test Item Value Reference Range Interpretation Comments Monocytes # (test code 0.8 See_Comment [Aut omated message] The = Monocytes #) system which generated this result tra nsmitted reference range : <=0.8. The reference r bertha was not used to int erpret this result as normal/abnormal . [facility] HospitalCiutvxfHZTALNACXQ0991-57-29 00:23:00 Test Item Value Reference Range Interpretation Comments Basophils # (test code 0.1 See_Comment [Aut omated message] The = Basophils #) system which generated this result tra nsmitted reference range : <=0.2. The reference r bertha was not used to int erpret this result as normal/abnormal . [facility] HospitalGaxvxhdKLQVLRERID1796-40-76 00:23:00 Test Item Value Reference Range Interpretation Comments Lymphocytes (test code = Lymphocytes) 14.3 20.0-40.0 [facility] HospitalBhaovnkNJWIBMGTAY2221-47-21 00:23:00 Test Item Value Reference Range Interpretation Comments Segs (test code = Segs) 80.0 45.0-75.0 [facility] HospitalCwxpravLQNSMWHADT5330-68-05 00:23:00 Test Item Value Reference Range Interpretation Comments Monocytes (test code = Monocytes) 4.7 2.0-12.0 [facility] HospitalPcahkgrYZVWZFGJRK6034-34-78 00:23:00 Test Item Value Reference Range Interpretation Comments Lymphocytes # (test code = Lymphocytes 2.4 1.0-5.5 #) [facility] HospitalQssigyzOWNNYSKXEO9226-71-82 00:23:00 Test Item Value Reference Range Interpretation Comments Segs-Bands # (test code = Segs-Bands #) 13.1 1.5-8.1 [facility] HospitalTvhvietHXNZWIGSTP3168-01-24 00:23:00 Test Item Value Reference Range Interpretation Comments Basophils (test code = 0.4 See_Comment [Aut omated message] The Basophils) system which ge nerated this result tra nsmitted reference range : <=1.0. The reference r bertha was not used to int erpret this result as normal/abnormal . [facility] HospitalGjbpctfQNTAJSQSXF1802-42-60 00:23:00 Test Item Value Reference Range Interpretation Comments Eosinophils (test code = 0.6 See_Comment [A utomated message] The Eosinophils) system which ge nerated this result tra nsmitted reference range : <=4.0. The reference r bertha was not used to int erpret this result as normal/abnormal . [facility]CHEM NGZFS7496-87-27 00:23:00 Test Item Value Reference Range Interpretation Comments Lipase Lvl (test code = Lipase Lvl) 129 73-393 [facility] MichiganAtzysukCUCIJBHMPSOI0843-27-83 00:23:00 Test Item Value Reference Range Interpretation Comments AGAP (test code = AGAP) 11.7 10.0-20.0 [facility] MichiganVtggcvwKHYELZWHRGTG8241-73-21 00:23:00 Test Item Value Reference Range Interpretation Comments eGFR (test code = eGFR) 109 [facility] MichiganNuxqwgtIOHIMMZCEKXS0955-15-96 00:23:00 Test Item Value Reference Range Interpretation Comments BUN (test code = BUN) 8 7-22 [facility] MichiganErqnlovAGSADRIJLDSV8022-55-96 00:23:00 Test Item Value Reference Range Interpretation Comments Glucose Lvl (test code = Glucose Lvl) 95 70-99 [facility] MichiganRlaozsiRMBYVFYGLUOW9470-10-13 00:23:00 Test Item Value Reference Range Interpretation Comments Sodium Lvl (test code = Sodium Lvl) 139 135-145 [facility] MichiganTtogqdmSKPLXRYTZCMO5039-78-11 00:23:00 Test Item Value Reference Range Interpretation Comments Creatinine Lvl (test code = Creatinine 0.76 0.50-1.40 Lvl) [facility] MichiganNvhhtzaRZERTBMKENSO3691-26-62 00:23:00 Test Item Value Reference Range Interpretation Comments CO2 (test code = CO2) 25 24-32 [facility] MichiganUndmjizMADYWPMQHOKO1241-75-23 00:23:00 Test Item Value Reference Range Interpretation Comments Calcium Lvl (test code = Calcium Lvl) 8.8 8.5-10.5 [facility] MichiganYtarktcNZCYYZZHCJEG1923-87-42 00:23:00 Test Item Value Reference Range Interpretation Comments Chloride Lvl (test code = Chloride Lvl) 106 95-109 [facility] MichiganAgrmiitPUQAZJCDTZWV3793-34-90 00:23:00 Test Item Value Reference Range Interpretation Comments Potassium Lvl (test code = Potassium 3.7 3.5-5.1 Lvl) [facility] HospitalKntvyygQMGKDVJCDA4846-90-56 00:23:00 Test Item Value Reference Range Interpretation Comments Hct (test code = Hct) 36.3 36.0-48.0 [facility] HospitalHhmmiyyKZPNWHCYIM6222-90-23 00:23:00 Test Item Value Reference Range Interpretation Comments Hgb (test code = Hgb) 11.6 12.0-16.0 [facility] HospitalOgeiscgUZGXIKXODF6497-36-12 00:23:00 Test Item Value Reference Range Interpretation Comments RBC X 10x6 (test code = RBC X 10x6) 4.47 4.20-5.40 [facility] HospitalYtanexlBBBVTHAXDP2000-19-19 00:23:00 Test Item Value Reference Range Interpretation Comments Platelet (test code = Platelet) 450 133-450 [facility] HospitalLpxdgvqNGTKVUHPDB6482-63-58 00:23:00 Test Item Value Reference Range Interpretation Comments RDW (test code = RDW) 18.3 11.5-14.5 [facility] HospitalSwdthfqIEVMVKHHKL4632-60-18 00:23:00 Test Item Value Reference Range Interpretation Comments MCHC (test code = MCHC) 31.9 32.0-36.0 [facility] HospitalSysfrrnBEFJDXKDHT0482-59-70 00:23:00 Test Item Value Reference Range Interpretation Comments MCH (test code = MCH) 25.9 pg 27.0-31.0 [facility] HospitalCkklxsqUAQRFQOJRT6180-74-93 00:23:00 Test Item Value Reference Range Interpretation Comments MCV (test code = MCV) 81.3 80.0-98.0 [facility] HospitalWsmysuyLTBTGRJSIT6320-33-78 00:23:00 Test Item Value Reference Range Interpretation Comments MPV (test code = MPV) 8.0 7.4-10.4 [facility] HospitalOzplxckHPAOTRQIXT8159-07-26 00:23:00 Test Item Value Reference Range Interpretation Comments WBC X 10x3 (test code = WBC X 10x3) 16.4 3.7-10.4 [facility] HospitalFmxrnipUAPCJZMVGL8559-74-33 00:23:00 Test Item Value Reference Range Interpretation Comments Eosinophils # (test code 0.1 See_Comment [A utomated message] The = Eosinophils #) system whic h generated this result tra nsmitted reference range : <=0.5. The reference r bertha was not used to int erpret this result as normal/abnormal . [facility] HospitalHpxpcgrFDNMRYOEHT3375-60-33 00:23:00 Test Item Value Reference Range Interpretation Comments Monocytes # (test code 0.8 See_Comment [Aut omated message] The = Monocytes #) system which generated this result tra nsmitted reference range : <=0.8. The reference r bertha was not used to int erpret this result as normal/abnormal . [facility] HospitalRudzwppAIXNXBGEDD6350-25-24 00:23:00 Test Item Value Reference Range Interpretation Comments Basophils # (test code 0.1 See_Comment [Aut omated message] The = Basophils #) system which generated this result tra nsmitted reference range : <=0.2. The reference r bertha was not used to int erpret this result as normal/abnormal . [facility] HospitalMelvmquGXVSPIPISW2255-41-97 00:23:00 Test Item Value Reference Range Interpretation Comments Lymphocytes (test code = Lymphocytes) 14.3 20.0-40.0 [facility] HospitalVdvhihnCYYVRSHJVQ8062-43-14 00:23:00 Test Item Value Reference Range Interpretation Comments Segs (test code = Segs) 80.0 45.0-75.0 [facility] HospitalLyhzlhdNZFQCAGPXW8151-19-99 00:23:00 Test Item Value Reference Range Interpretation Comments Monocytes (test code = Monocytes) 4.7 2.0-12.0 [facility] HospitalEhbtopbMTOZZGAJZF3028-59-93 00:23:00 Test Item Value Reference Range Interpretation Comments Lymphocytes # (test code = Lymphocytes 2.4 1.0-5.5 #) [facility] HospitalIjyxfzpJURRVISORM9223-14-69 00:23:00 Test Item Value Reference Range Interpretation Comments Segs-Bands # (test code = Segs-Bands #) 13.1 1.5-8.1 [facility] HospitalSugweywSMQIUUFDXY2024-67-28 00:23:00 Test Item Value Reference Range Interpretation Comments Basophils (test code = 0.4 See_Comment [Aut omated message] The Basophils) system which ge nerated this result tra nsmitted reference range : <=1.0. The reference r bertha was not used to int erpret this result as normal/abnormal . [facility] HospitalZeifywtFFEISWTDAZ0365-77-78 00:23:00 Test Item Value Reference Range Interpretation Comments Eosinophils (test code = 0.6 See_Comment [A utomated message] The Eosinophils) system which ge nerated this result tra nsmitted reference range : <=4.0. The reference r bertha was not used to int erpret this result as normal/abnormal . [facility] URTBV9645-08-29 00:23:00 Test Item Value Reference Range Interpretation Comments Lipase Lvl (test code = Lipase Lvl) 129 73-393 [facility] DKZQW3103-95-98 00:23:00 Test Item Value Reference Range Interpretation Comments Lipase Lvl (test code = Lipase Lvl) 129 73-393 [facility]HohesfpLVPFRIASFUWE3852-28-71 00:23:00 Test Item Value Reference Range Interpretation Comments AGAP (test code = AGAP) 11.7 10.0-20.0 [facility] MichiganYkyrcxmQYJHQRGTKFMS7218-51-39 00:23:00 Test Item Value Reference Range Interpretation Comments eGFR (test code = eGFR) 109 [facility]CavkbibXXXYRPXPSRWC2476-27-05 00:23:00 Test Item Value Reference Range Interpretation Comments AGAP (test code = AGAP) 11.7 10.0-20.0 [facility] MichiganFuyqmeaFLAAAWLMYLDY5085-73-54 00:23:00 Test Item Value Reference Range Interpretation Comments BUN (test code = BUN) 8 7-22 [facility] MichiganBpdzgyiSCJRISGMSUFI5995-03-36 00:23:00 Test Item Value Reference Range Interpretation Comments Glucose Lvl (test code = Glucose Lvl) 95 70-99 [facility] MichiganJwredoiJHAKNNWSDPXA9569-45-75 00:23:00 Test Item Value Reference Range Interpretation Comments Sodium Lvl (test code = Sodium Lvl) 139 135-145 [facility]XhjbjbcIHRNQVPABOPY8598-51-49 00:23:00 Test Item Value Reference Range Interpretation Comments Creatinine Lvl (test code = Creatinine 0.76 0.50-1.40 Lvl) [facility] MichiganBobqlnwYDIAPEAWBOTS2391-25-41 00:23:00 Test Item Value Reference Range Interpretation Comments CO2 (test code = CO2) 25 24-32 [facility]CcbgwefSUMXUFDYLEYA8189-94-07 00:23:00 Test Item Value Reference Range Interpretation Comments Calcium Lvl (test code = Calcium Lvl) 8.8 8.5-10.5 [facility]PvihwugFZBQXDIPLKEL8864-13-42 00:23:00 Test Item Value Reference Range Interpretation Comments Chloride Lvl (test code = Chloride Lvl) 106 95-109 [facility] MichiganPrimjtvVIXPSATMMCUQ6798-69-83 00:23:00 Test Item Value Reference Range Interpretation Comments Potassium Lvl (test code = Potassium 3.7 3.5-5.1 Lvl) [facility] HospitalRnhevwfHANWRUFYTV2667-88-97 00:23:00 Test Item Value Reference Range Interpretation Comments Hct (test code = Hct) 36.3 36.0-48.0 [facility] HospitalXkrlkpvSUMMRJPRZX7136-67-37 00:23:00 Test Item Value Reference Range Interpretation Comments Hgb (test code = Hgb) 11.6 12.0-16.0 [facility] MichiganJfarsgeWSPSSUKLERPX1921-21-45 00:23:00 Test Item Value Reference Range Interpretation Comments eGFR (test code = eGFR) 109 [facility] HospitalCixrgenTJQLCCXCFJ4291-08-16 00:23:00 Test Item Value Reference Range Interpretation Comments RBC X 10x6 (test code = RBC X 10x6) 4.47 4.20-5.40 [facility] HospitalFeydogoFVKBYFYNSQ8676-34-03 00:23:00 Test Item Value Reference Range Interpretation Comments Platelet (test code = Platelet) 450 133-450 [facility] HospitalIecqvtzHORCKWGDRN7664-61-24 00:23:00 Test Item Value Reference Range Interpretation Comments RDW (test code = RDW) 18.3 11.5-14.5 [facility] HospitalWpzzwbzUSLCYMPYUI0706-20-31 00:23:00 Test Item Value Reference Range Interpretation Comments MCHC (test code = MCHC) 31.9 32.0-36.0 [facility] HospitalIophkvnDRHFATEAUK8562-92-69 00:23:00 Test Item Value Reference Range Interpretation Comments MCH (test code = MCH) 25.9 pg 27.0-31.0 [facility] HospitalEuqzzlsIEVSMQAPFL6405-61-97 00:23:00 Test Item Value Reference Range Interpretation Comments MCV (test code = MCV) 81.3 80.0-98.0 [facility] HospitalIlqhgfjOFNQWZTHDC0883-67-49 00:23:00 Test Item Value Reference Range Interpretation Comments MPV (test code = MPV) 8.0 7.4-10.4 [facility] HospitalQumhyiyKKZLUUUVOD1501-89-03 00:23:00 Test Item Value Reference Range Interpretation Comments WBC X 10x3 (test code = WBC X 10x3) 16.4 3.7-10.4 [facility] HospitalPjmdhfjJKWWWFYPGJ7070-04-69 00:23:00 Test Item Value Reference Range Interpretation Comments Eosinophils # (test code 0.1 See_Comment [A utomated message] The = Eosinophils #) system whic h generated this result tra nsmitted reference range : <=0.5. The reference r bertha was not used to int erpret this result as normal/abnormal . [facility] HospitalTyptsgeUJLOAYQGYC4010-49-82 00:23:00 Test Item Value Reference Range Interpretation Comments Monocytes # (test code 0.8 See_Comment [Aut omated message] The = Monocytes #) system which generated this result tra nsmitted reference range : <=0.8. The reference r bertha was not used to int erpret this result as normal/abnormal . [facility]LhngdcpPILZOXXACNTG3161-00-81 00:23:00 Test Item Value Reference Range Interpretation Comments BUN (test code = BUN) 8 7- [facility] HospitalCalxgozHTNWCYRHQM2312-17-86 00:23:00 Test Item Value Reference Range Interpretation Comments Basophils # (test code 0.1 See_Comment [Aut omated message] The = Basophils #) system which generated this result tra nsmitted reference range : <=0.2. The reference r bertha was not used to int erpret this result as normal/abnormal . [facility] HospitalEclyxjyLTOGWHEZLZ6035-96-42 00:23:00 Test Item Value Reference Range Interpretation Comments Lymphocytes (test code = Lymphocytes) 14.3 20.0-40.0 [facility] HospitalIsusgkpYJPSVFLSNK1931-82-63 00:23:00 Test Item Value Reference Range Interpretation Comments Segs (test code = Segs) 80.0 45.0-75.0 [facility] HospitalXrrsacaTUKPLPXHZL0834-06-19 00:23:00 Test Item Value Reference Range Interpretation Comments Monocytes (test code = Monocytes) 4.7 2.0-12.0 [facility] HospitalXqppkgvUMKAZNIMKA1069-64-64 00:23:00 Test Item Value Reference Range Interpretation Comments Lymphocytes # (test code = Lymphocytes 2.4 1.0-5.5 #) [facility] HospitalGnxpjoeGDFPGJGOKO3020-49-06 00:23:00 Test Item Value Reference Range Interpretation Comments Segs-Bands # (test code = Segs-Bands #) 13.1 1.5-8.1 [facility] HospitalIvkjpowMCFHXEAIPO7004-88-57 00:23:00 Test Item Value Reference Range Interpretation Comments Basophils (test code = 0.4 See_Comment [Aut omated message] The Basophils) system which ge nerated this result tra nsmitted reference range : <=1.0. The reference r bertha was not used to int erpret this result as normal/abnormal . [facility] HospitalTqqywvlMTKMWYZDBR6075-61-87 00:23:00 Test Item Value Reference Range Interpretation Comments Eosinophils (test code = 0.6 See_Comment [A utomated message] The Eosinophils) system which ge nerated this result tra nsmitted reference range : <=4.0. The reference r bertha was not used to int erpret this result as normal/abnormal . [facility] MichiganGlcnujhPESWBPWPSLRH7709-63-34 00:23:00 Test Item Value Reference Range Interpretation Comments Glucose Lvl (test code = Glucose Lvl) 95 70-99 [facility] MichiganUrsihhjCVRUUJQPWZLE4720-94-30 00:23:00 Test Item Value Reference Range Interpretation Comments Sodium Lvl (test code = Sodium Lvl) 139 135-145 [facility]VqwxgeeGKQTKQAKALNP7809-73-01 00:23:00 Test Item Value Reference Range Interpretation Comments Creatinine Lvl (test code = Creatinine 0.76 0.50-1.40 Lvl) [facility] MichiganFuihpwrOVXBAHGUAGZZ9861-70-95 00:23:00 Test Item Value Reference Range Interpretation Comments CO2 (test code = CO2) 25 24-32 [facility] MichiganBwbtumoFOZQQSHZIVIT8566-75-04 00:23:00 Test Item Value Reference Range Interpretation Comments Calcium Lvl (test code = Calcium Lvl) 8.8 8.5-10.5 [facility]PkbwiffUZWGTZYFRAUY2151-76-46 00:23:00 Test Item Value Reference Range Interpretation Comments Chloride Lvl (test code = Chloride Lvl) 106 95-109 [facility] MichiganLsfxfzjZWLOQHOYMNTY4670-77-39 00:23:00 Test Item Value Reference Range Interpretation Comments Potassium Lvl (test code = Potassium 3.7 3.5-5.1 Lvl) [facility] HospitalTifxuhhXARASTAVTS0220-84-08 00:23:00 Test Item Value Reference Range Interpretation Comments Hct (test code = Hct) 36.3 36.0-48.0 [facility] HospitalVcdjqktWUICZDBQPJ6226-66-76 00:23:00 Test Item Value Reference Range Interpretation Comments Hgb (test code = Hgb) 11.6 12.0-16.0 [facility] HospitalJsdzkifWCXNZDSUGL9801-64-83 00:23:00 Test Item Value Reference Range Interpretation Comments RBC X 10x6 (test code = RBC X 10x6) 4.47 4.20-5.40 [facility] HospitalEeynsrxZPYTJMVDBM3900-43-82 00:23:00 Test Item Value Reference Range Interpretation Comments Platelet (test code = Platelet) 450 133-450 [facility] HospitalTtgvszlHGYDLMQGGE0657-59-40 00:23:00 Test Item Value Reference Range Interpretation Comments RDW (test code = RDW) 18.3 11.5-14.5 [facility] HospitalXqgqvndRVYVDTLIMF9152-09-57 00:23:00 Test Item Value Reference Range Interpretation Comments MCHC (test code = MCHC) 31.9 32.0-36.0 [facility] HospitalBrdyxyaVIJDQGVYYX2807-24-55 00:23:00 Test Item Value Reference Range Interpretation Comments MCH (test code = MCH) 25.9 pg 27.0-31.0 [facility] HospitalQhbubodZASRDXLJMS6690-04-69 00:23:00 Test Item Value Reference Range Interpretation Comments MCV (test code = MCV) 81.3 80.0-98.0 [facility] HospitalSkbuallMAHHHUKKAC2942-62-60 00:23:00 Test Item Value Reference Range Interpretation Comments MPV (test code = MPV) 8.0 7.4-10.4 [facility] HospitalZrmqtckCJJPLEXJOU9637-16-46 00:23:00 Test Item Value Reference Range Interpretation Comments WBC X 10x3 (test code = WBC X 10x3) 16.4 3.7-10.4 [facility] HospitalZmrlopeJPFZXGITTR5946-49-04 00:23:00 Test Item Value Reference Range Interpretation Comments Eosinophils # (test code 0.1 See_Comment [A utomated message] The = Eosinophils #) system whic h generated this result tra nsmitted reference range : <=0.5. The reference r bertha was not used to int erpret this result as normal/abnormal . [facility] HospitalEkmregbIIKKNZTCEM0310-27-20 00:23:00 Test Item Value Reference Range Interpretation Comments Monocytes # (test code 0.8 See_Comment [Aut omated message] The = Monocytes #) system which generated this result tra nsmitted reference range : <=0.8. The reference r bertha was not used to int erpret this result as normal/abnormal . [facility] HospitalIcanhhiQAIPVTZDZY2289-84-17 00:23:00 Test Item Value Reference Range Interpretation Comments Basophils # (test code 0.1 See_Comment [Aut omated message] The = Basophils #) system which generated this result tra nsmitted reference range : <=0.2. The reference r bertha was not used to int erpret this result as normal/abnormal . [facility] HospitalIgxjlgbZCDZKAHYID2431-67-65 00:23:00 Test Item Value Reference Range Interpretation Comments Lymphocytes (test code = Lymphocytes) 14.3 20.0-40.0 [facility] HospitalOuznzlzKQQOFLKKBY0464-59-09 00:23:00 Test Item Value Reference Range Interpretation Comments Segs (test code = Segs) 80.0 45.0-75.0 [facility] HospitalAgswnynSNDDJJDEAC0247-44-14 00:23:00 Test Item Value Reference Range Interpretation Comments Monocytes (test code = Monocytes) 4.7 2.0-12.0 [facility] HospitalAkeuricTBLJWIQHKQ4177-45-11 00:23:00 Test Item Value Reference Range Interpretation Comments Lymphocytes # (test code = Lymphocytes 2.4 1.0-5.5 #) [facility] HospitalMmfbfbpZMYJVJPYLT5356-28-97 00:23:00 Test Item Value Reference Range Interpretation Comments Segs-Bands # (test code = Segs-Bands #) 13.1 1.5-8.1 [facility] HospitalKzfjrjyYCZBMFTNPS0491-82-06 00:23:00 Test Item Value Reference Range Interpretation Comments Basophils (test code = 0.4 See_Comment [Aut omated message] The Basophils) system which ge nerated this result tra nsmitted reference range : <=1.0. The reference r bertha was not used to int erpret this result as normal/abnormal . [facility] HospitalYnvlxbhAQRLDVFHPM2931-17-21 00:23:00 Test Item Value Reference Range Interpretation Comments Eosinophils (test code = 0.6 See_Comment [A utomated message] The Eosinophils) system which ge nerated this result tra nsmitted reference range : <=4.0. The reference r bertha was not used to int erpret this result as normal/abnormal . [facility]2016-07-10 00:23:00 Test Item Value Reference Range Interpretation Comments Lipase Lvl (test code = Lipase Lvl) 129 73-393 [facility]OtnkjkxLEFSFJEOOPLV5187-10-89 00:23:00 Test Item Value Reference Range Interpretation Comments AGAP (test code = AGAP) 11.7 10.0-20.0 [facility]EfgjbddXDECJVGPJGCM4176-47-30 00:23:00 Test Item Value Reference Range Interpretation Comments eGFR (test code = eGFR) 109 [facility] MichiganUcnhvhaVKHJRKCCJIPS5165-59-09 00:23:00 Test Item Value Reference Range Interpretation Comments BUN (test code = BUN) 8 7-22 [facility]NvdxokmHFRSEUIHYXBP9308-77-37 00:23:00 Test Item Value Reference Range Interpretation Comments Glucose Lvl (test code = Glucose Lvl) 95 70-99 [facility]VpzswifWBVTUWUIVIMG7001-40-04 00:23:00 Test Item Value Reference Range Interpretation Comments Sodium Lvl (test code = Sodium Lvl) 139 135-145 [facility] MichiganRarlwybTTVPRFQUSVXW3283-83-00 00:23:00 Test Item Value Reference Range Interpretation Comments Creatinine Lvl (test code = Creatinine 0.76 0.50-1.40 Lvl) [facility]PqttxwnADXFJJXWTWIM9649-64-28 00:23:00 Test Item Value Reference Range Interpretation Comments CO2 (test code = CO2) 25 24-32 [facility] MichiganGbfltqzRZFCAPCPJQFK0955-74-08 00:23:00 Test Item Value Reference Range Interpretation Comments Calcium Lvl (test code = Calcium Lvl) 8.8 8.5-10.5 [facility]NtjrvyxINEXROBYYRDF9861-61-49 00:23:00 Test Item Value Reference Range Interpretation Comments Chloride Lvl (test code = Chloride Lvl) 106 95-109 [facility] MichiganDqddvavJTTNFLYJLTNO8630-69-23 00:23:00 Test Item Value Reference Range Interpretation Comments Potassium Lvl (test code = Potassium 3.7 3.5-5.1 Lvl) [facility] HospitalOarotleKYQDDRIKLM9670-98-90 00:23:00 Test Item Value Reference Range Interpretation Comments Hct (test code = Hct) 36.3 36.0-48.0 [facility] HospitalZnorxlsZBQPLLNXDK7495-94-13 00:23:00 Test Item Value Reference Range Interpretation Comments Hgb (test code = Hgb) 11.6 12.0-16.0 [facility] HospitalUhoinvvOVBBBFLBVY7921-28-16 00:23:00 Test Item Value Reference Range Interpretation Comments RBC X 10x6 (test code = RBC X 10x6) 4.47 4.20-5.40 [facility] HospitalCpilboyXSFESZDWTD4205-72-03 00:23:00 Test Item Value Reference Range Interpretation Comments Platelet (test code = Platelet) 450 133-450 [facility] HospitalJbmoaknJJEAOJDKLU9422-93-45 00:23:00 Test Item Value Reference Range Interpretation Comments RDW (test code = RDW) 18.3 11.5-14.5 [facility] HospitalTfgkawlQQMTPDJICW6588-90-40 00:23:00 Test Item Value Reference Range Interpretation Comments MCHC (test code = MCHC) 31.9 32.0-36.0 [facility] HospitalKretevjZTDFJUMXFO9229-08-67 00:23:00 Test Item Value Reference Range Interpretation Comments MCH (test code = MCH) 25.9 pg 27.0-31.0 [facility] HospitalXqfdsvaPKCHABEAIG8072-84-75 00:23:00 Test Item Value Reference Range Interpretation Comments MCV (test code = MCV) 81.3 80.0-98.0 [facility] HospitalUeuboinKLUPPNYNKJ7966-14-53 00:23:00 Test Item Value Reference Range Interpretation Comments MPV (test code = MPV) 8.0 7.4-10.4 [facility] HospitalGozepyaMIFWYUQLDF7843-37-89 00:23:00 Test Item Value Reference Range Interpretation Comments WBC X 10x3 (test code = WBC X 10x3) 16.4 3.7-10.4 [facility] HospitalXloddjmLJEZDKPZWH8710-04-85 00:23:00 Test Item Value Reference Range Interpretation Comments Eosinophils # (test code 0.1 See_Comment [A utomated message] The = Eosinophils #) system whic h generated this result tra nsmitted reference range : <=0.5. The reference r bertha was not used to int erpret this result as normal/abnormal . [facility] HospitalVetjogbCWTUFBJRXF7412-19-67 00:23:00 Test Item Value Reference Range Interpretation Comments Monocytes # (test code 0.8 See_Comment [Aut omated message] The = Monocytes #) system which generated this result tra nsmitted reference range : <=0.8. The reference r bertha was not used to int erpret this result as normal/abnormal . [facility] HospitalGzunhexFMUWBVGPBW3216-81-25 00:23:00 Test Item Value Reference Range Interpretation Comments Basophils # (test code 0.1 See_Comment [Aut omated message] The = Basophils #) system which generated this result tra nsmitted reference range : <=0.2. The reference r bertha was not used to int erpret this result as normal/abnormal . [facility] HospitalDbxryuuIPTISZALYX2788-67-32 00:23:00 Test Item Value Reference Range Interpretation Comments Lymphocytes (test code = Lymphocytes) 14.3 20.0-40.0 [facility] HospitalSowhkqmXDXAORMKMC0628-37-22 00:23:00 Test Item Value Reference Range Interpretation Comments Segs (test code = Segs) 80.0 45.0-75.0 [facility] HospitalEpptyyvPTZFHUMERN5303-40-97 00:23:00 Test Item Value Reference Range Interpretation Comments Monocytes (test code = Monocytes) 4.7 2.0-12.0 [facility] HospitalDybfirkBDQNJZYECI5816-99-91 00:23:00 Test Item Value Reference Range Interpretation Comments Lymphocytes # (test code = Lymphocytes 2.4 1.0-5.5 #) [facility] HospitalQwedkiuCGIXXLAEPI8737-16-37 00:23:00 Test Item Value Reference Range Interpretation Comments Segs-Bands # (test code = Segs-Bands #) 13.1 1.5-8.1 [facility] HospitalNyedwzwEEKKDAUFRA2187-94-26 00:23:00 Test Item Value Reference Range Interpretation Comments Basophils (test code = 0.4 See_Comment [Aut omated message] The Basophils) system which ge nerated this result tra nsmitted reference range : <=1.0. The reference r bertha was not used to int erpret this result as normal/abnormal . [facility] HospitalPrwwxmdTERQVCBDEF1228-58-46 00:23:00 Test Item Value Reference Range Interpretation Comments Eosinophils (test code = 0.6 See_Comment [A utomated message] The Eosinophils) system which ge nerated this result tra nsmitted reference range : <=4.0. The reference r bertha was not used to int erpret this result as normal/abnormal . [facility]CHEM FCCNA1564-84-46 00:23:00 Test Item Value Reference Range Interpretation Comments Lipase Lvl (test code = Lipase Lvl) 129 73-393 [facility]ItmthpoYDMNAXHYBLQW1473-53-80 00:23:00 Test Item Value Reference Range Interpretation Comments AGAP (test code = AGAP) 11.7 10.0-20.0 [facility]XvudmcpRBALWUHFBWRO4324-67-41 00:23:00 Test Item Value Reference Range Interpretation Comments eGFR (test code = eGFR) 109 [facility] MichiganSkrxrvnPVKAXTMDTLCE8504-29-08 00:23:00 Test Item Value Reference Range Interpretation Comments BUN (test code = BUN) 8 7-22 [facility] MichiganTtgqdkwPGZRIXGBVZLO1361-07-48 00:23:00 Test Item Value Reference Range Interpretation Comments Glucose Lvl (test code = Glucose Lvl) 95 70-99 [facility]CxmuzajXOSMIYSPLBJV4203-77-40 00:23:00 Test Item Value Reference Range Interpretation Comments Sodium Lvl (test code = Sodium Lvl) 139 135-145 [facility]XkyghxcNWZJLMKSUELV5431-86-98 00:23:00 Test Item Value Reference Range Interpretation Comments Creatinine Lvl (test code = Creatinine 0.76 0.50-1.40 Lvl) [facility] MichiganWvasdjqXOWIDIECWDSR5698-63-29 00:23:00 Test Item Value Reference Range Interpretation Comments CO2 (test code = CO2) 25 24-32 [facility] MichiganHapkdwrNYRHOCPKMHKT3928-11-79 00:23:00 Test Item Value Reference Range Interpretation Comments Calcium Lvl (test code = Calcium Lvl) 8.8 8.5-10.5 [facility] MichiganZxfpvvtDCOMVDUASBTU8245-04-25 00:23:00 Test Item Value Reference Range Interpretation Comments Chloride Lvl (test code = Chloride Lvl) 106 95-109 [facility] MichiganWlpdkojKKSLOHVSTXKR3038-60-33 00:23:00 Test Item Value Reference Range Interpretation Comments Potassium Lvl (test code = Potassium 3.7 3.5-5.1 Lvl) [facility] HospitalJlvhzwwEVYSLXKYXU9048-48-43 00:23:00 Test Item Value Reference Range Interpretation Comments Hct (test code = Hct) 36.3 36.0-48.0 [facility] HospitalVdyrfgnBWAZNHEJMH5184-37-66 00:23:00 Test Item Value Reference Range Interpretation Comments Hgb (test code = Hgb) 11.6 12.0-16.0 [facility] HospitalYrlqhktIBAXLSNRDC1963-30-28 00:23:00 Test Item Value Reference Range Interpretation Comments RBC X 10x6 (test code = RBC X 10x6) 4.47 4.20-5.40 [facility] HospitalMxrigctWNSAQYZKPE3366-64-59 00:23:00 Test Item Value Reference Range Interpretation Comments Platelet (test code = Platelet) 450 133-450 [facility] HospitalEjwwxdtTKKTQXXGFS0945-47-25 00:23:00 Test Item Value Reference Range Interpretation Comments RDW (test code = RDW) 18.3 11.5-14.5 [facility] HospitalLznxfdtNLNTOHMJQI8135-34-77 00:23:00 Test Item Value Reference Range Interpretation Comments MCHC (test code = MCHC) 31.9 32.0-36.0 [facility] HospitalPfemgulUKHZIQNQMO3950-77-76 00:23:00 Test Item Value Reference Range Interpretation Comments MCH (test code = MCH) 25.9 pg 27.0-31.0 [facility] HospitalRiubptpQYWKXXGAWZ8266-45-84 00:23:00 Test Item Value Reference Range Interpretation Comments MCV (test code = MCV) 81.3 80.0-98.0 [facility] HospitalRqcacaxSUAKMEWZTF7311-28-72 00:23:00 Test Item Value Reference Range Interpretation Comments MPV (test code = MPV) 8.0 7.4-10.4 [facility] HospitalMlcqvqpYGUJNPOYBR6562-64-33 00:23:00 Test Item Value Reference Range Interpretation Comments WBC X 10x3 (test code = WBC X 10x3) 16.4 3.7-10.4 [facility] HospitalPsbkinfLEIUFSXBMC3851-27-87 00:23:00 Test Item Value Reference Range Interpretation Comments Eosinophils # (test code 0.1 See_Comment [A utomated message] The = Eosinophils #) system whic h generated this result tra nsmitted reference range : <=0.5. The reference r bertha was not used to int erpret this result as normal/abnormal . [facility] HospitalQluzomsACADUGPJTT3711-53-63 00:23:00 Test Item Value Reference Range Interpretation Comments Monocytes # (test code 0.8 See_Comment [Aut omated message] The = Monocytes #) system which generated this result tra nsmitted reference range : <=0.8. The reference r bertha was not used to int erpret this result as normal/abnormal . [facility] HospitalSdruxerQJIRVRIJOW1575-51-20 00:23:00 Test Item Value Reference Range Interpretation Comments Basophils # (test code 0.1 See_Comment [Aut omated message] The = Basophils #) system which generated this result tra nsmitted reference range : <=0.2. The reference r bertha was not used to int erpret this result as normal/abnormal . [facility] HospitalEtqsehwXBXAQHIHZJ8611-53-29 00:23:00 Test Item Value Reference Range Interpretation Comments Lymphocytes (test code = Lymphocytes) 14.3 20.0-40.0 [facility] HospitalLsanlnkRUBLAFBISP7494-95-11 00:23:00 Test Item Value Reference Range Interpretation Comments Segs (test code = Segs) 80.0 45.0-75.0 [facility] HospitalAgdqfxoSHTJINTVPM5670-38-91 00:23:00 Test Item Value Reference Range Interpretation Comments Monocytes (test code = Monocytes) 4.7 2.0-12.0 [facility] HospitalRdujrngPKBIGOQXZO8473-13-62 00:23:00 Test Item Value Reference Range Interpretation Comments Lymphocytes # (test code = Lymphocytes 2.4 1.0-5.5 #) [facility] HospitalKridozsPEHZPMDZGJ7307-15-78 00:23:00 Test Item Value Reference Range Interpretation Comments Segs-Bands # (test code = Segs-Bands #) 13.1 1.5-8.1 [facility] HospitalWqkbnccWMPGNJMTOB7843-49-68 00:23:00 Test Item Value Reference Range Interpretation Comments Basophils (test code = 0.4 See_Comment [Aut omated message] The Basophils) system which ge nerated this result tra nsmitted reference range : <=1.0. The reference r bertha was not used to int erpret this result as normal/abnormal . [facility] HospitalTygdplgZOHZSVRKBW4220-92-57 00:23:00 Test Item Value Reference Range Interpretation Comments Eosinophils (test code = 0.6 See_Comment [A utomated message] The Eosinophils) system which ge nerated this result tra nsmitted reference range : <=4.0. The reference r bertha was not used to int erpret this result as normal/abnormal . [facility] JHTIC5741-56-54 00:23:00 Test Item Value Reference Range Interpretation Comments Lipase Lvl (test code = Lipase Lvl) 129 73-393 [facility]LolpawiIOLWUDOGXAHS5715-69-19 00:23:00 Test Item Value Reference Range Interpretation Comments AGAP (test code = AGAP) 11.7 10.0-20.0 [facility]UmjbssqNEKTQBAILSYX5376-56-24 00:23:00 Test Item Value Reference Range Interpretation Comments eGFR (test code = eGFR) 109 [facility]TcgolihGZLYFVATKPNV3598-66-45 00:23:00 Test Item Value Reference Range Interpretation Comments BUN (test code = BUN) 8 7-22 [facility]YvrsplgFEFINRBJWQIT1746-13-19 00:23:00 Test Item Value Reference Range Interpretation Comments Glucose Lvl (test code = Glucose Lvl) 95 70-99 [facility] MichiganPsnpkndALNGZRSKIRLT4827-23-10 00:23:00 Test Item Value Reference Range Interpretation Comments Sodium Lvl (test code = Sodium Lvl) 139 135-145 [facility]ImkkjzqOBSDNZHOBMYA7028-94-09 00:23:00 Test Item Value Reference Range Interpretation Comments Creatinine Lvl (test code = Creatinine 0.76 0.50-1.40 Lvl) [facility] MichiganQwonhhsEYTDENYJTOPM2508-39-17 00:23:00 Test Item Value Reference Range Interpretation Comments CO2 (test code = CO2) 25 24-32 [facility] MichiganBrqcbulBCJOCPKJOKAS7167-20-50 00:23:00 Test Item Value Reference Range Interpretation Comments Calcium Lvl (test code = Calcium Lvl) 8.8 8.5-10.5 [facility]YhmgyrjEDQDMGDKOWFB7704-06-00 00:23:00 Test Item Value Reference Range Interpretation Comments Chloride Lvl (test code = Chloride Lvl) 106 95-109 [facility] MichiganEypdubfNGCVIRYGPKHE4346-12-79 00:23:00 Test Item Value Reference Range Interpretation Comments Potassium Lvl (test code = Potassium 3.7 3.5-5.1 Lvl) [facility] HospitalIjotsqbKVMBHMEULW4250-67-02 00:23:00 Test Item Value Reference Range Interpretation Comments Hct (test code = Hct) 36.3 36.0-48.0 [facility] HospitalKwrflluCRYVJSNUKL1531-68-71 00:23:00 Test Item Value Reference Range Interpretation Comments Hgb (test code = Hgb) 11.6 12.0-16.0 [facility] HospitalWbyttmlNQBHQBKPCF6251-41-05 00:23:00 Test Item Value Reference Range Interpretation Comments RBC X 10x6 (test code = RBC X 10x6) 4.47 4.20-5.40 [facility] HospitalFkjlaaiFITFAHDUAC1237-24-19 00:23:00 Test Item Value Reference Range Interpretation Comments Platelet (test code = Platelet) 450 133-450 [facility] HospitalNqygzfoYPSRJWOZKX3160-73-96 00:23:00 Test Item Value Reference Range Interpretation Comments RDW (test code = RDW) 18.3 11.5-14.5 [facility] HospitalWmrhiqnKYDZMCIZTJ7640-74-83 00:23:00 Test Item Value Reference Range Interpretation Comments MCHC (test code = MCHC) 31.9 32.0-36.0 [facility] HospitalPmivdobYTMDNIRWSG2457-09-50 00:23:00 Test Item Value Reference Range Interpretation Comments MCH (test code = MCH) 25.9 pg 27.0-31.0 [facility] HospitalMulksfdYQQOCGLHAP9579-90-79 00:23:00 Test Item Value Reference Range Interpretation Comments MCV (test code = MCV) 81.3 80.0-98.0 [facility] HospitalDvxoveuMMGBDQOFOG6758-64-39 00:23:00 Test Item Value Reference Range Interpretation Comments MPV (test code = MPV) 8.0 7.4-10.4 [facility] HospitalNnnhyphIBCUWFFQZS8907-60-45 00:23:00 Test Item Value Reference Range Interpretation Comments WBC X 10x3 (test code = WBC X 10x3) 16.4 3.7-10.4 [facility] HospitalUnmwcmsYADHEGLVSG7369-78-99 00:23:00 Test Item Value Reference Range Interpretation Comments Eosinophils # (test code 0.1 See_Comment [A utomated message] The = Eosinophils #) system whic h generated this result tra nsmitted reference range : <=0.5. The reference r bertha was not used to int erpret this result as normal/abnormal . [facility] HospitalZlklvdwTRRQSMZPVA6220-08-44 00:23:00 Test Item Value Reference Range Interpretation Comments Monocytes # (test code 0.8 See_Comment [Aut omated message] The = Monocytes #) system which generated this result tra nsmitted reference range : <=0.8. The reference r bertha was not used to int erpret this result as normal/abnormal . [facility] HospitalVcvkicpHZIXVYAVJQ5760-80-64 00:23:00 Test Item Value Reference Range Interpretation Comments Basophils # (test code 0.1 See_Comment [Aut omated message] The = Basophils #) system which generated this result tra nsmitted reference range : <=0.2. The reference r bertha was not used to int erpret this result as normal/abnormal . [facility] HospitalRuvqpqiEHJFLWUSOL6118-13-33 00:23:00 Test Item Value Reference Range Interpretation Comments Lymphocytes (test code = Lymphocytes) 14.3 20.0-40.0 [facility] HospitalAkorskgPQNYGQDMOJ5739-50-08 00:23:00 Test Item Value Reference Range Interpretation Comments Segs (test code = Segs) 80.0 45.0-75.0 [facility] HospitalQcuvodySGLVAUJDOR6577-21-47 00:23:00 Test Item Value Reference Range Interpretation Comments Monocytes (test code = Monocytes) 4.7 2.0-12.0 [facility] HospitalGcxnfaiRYRRFTQAVZ2544-02-95 00:23:00 Test Item Value Reference Range Interpretation Comments Lymphocytes # (test code = Lymphocytes 2.4 1.0-5.5 #) [facility] HospitalXycaclzJMPSILJZEL6515-24-25 00:23:00 Test Item Value Reference Range Interpretation Comments Segs-Bands # (test code = Segs-Bands #) 13.1 1.5-8.1 [facility] HospitalXzocbgaCZGLSXZPUE0253-84-41 00:23:00 Test Item Value Reference Range Interpretation Comments Basophils (test code = 0.4 See_Comment [Aut omated message] The Basophils) system which ge nerated this result tra nsmitted reference range : <=1.0. The reference r bertha was not used to int erpret this result as normal/abnormal . [facility] HospitalCozepytVLDRPAEWBN2728-32-65 00:23:00 Test Item Value Reference Range Interpretation Comments Eosinophils (test code = 0.6 See_Comment [A utomated message] The Eosinophils) system which ge nerated this result tra nsmitted reference range : <=4.0. The reference r bertha was not used to int erpret this result as normal/abnormal . [facility]CHEM BJTHN9227-49-95 00:23:00 Test Item Value Reference Range Interpretation Comments Lipase Lvl (test code = Lipase Lvl) 129 73-393 [facility]RyrltfkXSRJHJZPZBAC4332-18-56 00:23:00 Test Item Value Reference Range Interpretation Comments AGAP (test code = AGAP) 11.7 10.0-20.0 [facility] MichiganSjturlgCNBCKLZRABPH9144-39-51 00:23:00 Test Item Value Reference Range Interpretation Comments eGFR (test code = eGFR) 109 [facility]HpypirxEQQVHRXKLDYU9444-32-01 00:23:00 Test Item Value Reference Range Interpretation Comments BUN (test code = BUN) 8 7-22 [facility] MichiganIbulhmjHIEVSNXULYKK4147-13-36 00:23:00 Test Item Value Reference Range Interpretation Comments Glucose Lvl (test code = Glucose Lvl) 95 70-99 [facility]CmfxdhaFCMTLMBXZJRA0178-54-84 00:23:00 Test Item Value Reference Range Interpretation Comments Sodium Lvl (test code = Sodium Lvl) 139 135-145 [facility] MichiganZmtmixoEACMANUQNFVX0992-61-49 00:23:00 Test Item Value Reference Range Interpretation Comments Creatinine Lvl (test code = Creatinine 0.76 0.50-1.40 Lvl) [facility]ArjgnfeUNUOQWXOFKZZ8560-64-49 00:23:00 Test Item Value Reference Range Interpretation Comments CO2 (test code = CO2) 25 24-32 [facility]LolvhpzJLGWVFCQHIDC3070-97-26 00:23:00 Test Item Value Reference Range Interpretation Comments Calcium Lvl (test code = Calcium Lvl) 8.8 8.5-10.5 [facility] MichiganZpmrrexTEBXXHYJLOUK9785-37-53 00:23:00 Test Item Value Reference Range Interpretation Comments Chloride Lvl (test code = Chloride Lvl) 106 95-109 [facility]WnkygwkZGEOWVNOZLXV4095-59-28 00:23:00 Test Item Value Reference Range Interpretation Comments Potassium Lvl (test code = Potassium 3.7 3.5-5.1 Lvl) [facility] HospitalIgdkbccUTTZYTLJSU0864-88-55 00:23:00 Test Item Value Reference Range Interpretation Comments Hct (test code = Hct) 36.3 36.0-48.0 [facility] HospitalWwmcqvyELQDJGZQET4698-59-63 00:23:00 Test Item Value Reference Range Interpretation Comments Hgb (test code = Hgb) 11.6 12.0-16.0 [facility] HospitalNdznfvrHVPPKGZRWQ1550-73-15 00:23:00 Test Item Value Reference Range Interpretation Comments RBC X 10x6 (test code = RBC X 10x6) 4.47 4.20-5.40 [facility] HospitalPlrdqdcEDNTUZGMYT4547-78-20 00:23:00 Test Item Value Reference Range Interpretation Comments Platelet (test code = Platelet) 450 133-450 [facility] HospitalTxigcvwLGRFDKIAPB4156-91-81 00:23:00 Test Item Value Reference Range Interpretation Comments RDW (test code = RDW) 18.3 11.5-14.5 [facility] HospitalQxjlvxfFESQIHMSTM7010-68-37 00:23:00 Test Item Value Reference Range Interpretation Comments MCHC (test code = MCHC) 31.9 32.0-36.0 [facility] HospitalFhtusjuAZHZNNZZDC1432-36-17 00:23:00 Test Item Value Reference Range Interpretation Comments MCH (test code = MCH) 25.9 pg 27.0-31.0 [facility] HospitalThtkylpRLBSYQGPDL3504-95-41 00:23:00 Test Item Value Reference Range Interpretation Comments MCV (test code = MCV) 81.3 80.0-98.0 [facility] HospitalHcgmakrBLKHOEBGKX6969-29-12 00:23:00 Test Item Value Reference Range Interpretation Comments MPV (test code = MPV) 8.0 7.4-10.4 [facility] HospitalGyfzltqQMKNWIESPE5690-55-15 00:23:00 Test Item Value Reference Range Interpretation Comments WBC X 10x3 (test code = WBC X 10x3) 16.4 3.7-10.4 [facility] HospitalPfxcmczSEQABRPNIZ8703-65-41 00:23:00 Test Item Value Reference Range Interpretation Comments Eosinophils # (test code 0.1 See_Comment [A utomated message] The = Eosinophils #) system whic h generated this result tra nsmitted reference range : <=0.5. The reference r bertha was not used to int erpret this result as normal/abnormal . [facility] HospitalSqftalpNLNFJDRUYZ0316-75-07 00:23:00 Test Item Value Reference Range Interpretation Comments Monocytes # (test code 0.8 See_Comment [Aut omated message] The = Monocytes #) system which generated this result tra nsmitted reference range : <=0.8. The reference r bertha was not used to int erpret this result as normal/abnormal . [facility] HospitalCzvvtraRRGCASZZRS2197-26-40 00:23:00 Test Item Value Reference Range Interpretation Comments Basophils # (test code 0.1 See_Comment [Aut omated message] The = Basophils #) system which generated this result tra nsmitted reference range : <=0.2. The reference r bertha was not used to int erpret this result as normal/abnormal . [facility] HospitalChjfynxEMAKFLNMUL4126-32-48 00:23:00 Test Item Value Reference Range Interpretation Comments Lymphocytes (test code = Lymphocytes) 14.3 20.0-40.0 [facility] HospitalZnhsumzCAGINJOOMP6228-68-36 00:23:00 Test Item Value Reference Range Interpretation Comments Segs (test code = Segs) 80.0 45.0-75.0 [facility] HospitalBqiqhlyQZQXDRVDKX0496-66-54 00:23:00 Test Item Value Reference Range Interpretation Comments Monocytes (test code = Monocytes) 4.7 2.0-12.0 [facility] HospitalSbkbkbvZKUXLWQIOG9627-53-91 00:23:00 Test Item Value Reference Range Interpretation Comments Lymphocytes # (test code = Lymphocytes 2.4 1.0-5.5 #) [facility] HospitalTxixsbbHGFOVCTAYX1113-90-22 00:23:00 Test Item Value Reference Range Interpretation Comments Segs-Bands # (test code = Segs-Bands #) 13.1 1.5-8.1 [facility] HospitalGrjiqcgQSGSTQPGNQ1826-34-87 00:23:00 Test Item Value Reference Range Interpretation Comments Basophils (test code = 0.4 See_Comment [Aut omated message] The Basophils) system which ge nerated this result tra nsmitted reference range : <=1.0. The reference r bertha was not used to int erpret this result as normal/abnormal . [facility] HospitalWxchtemOZXFOEIEJG0452-04-87 00:23:00 Test Item Value Reference Range Interpretation Comments Eosinophils (test code = 0.6 See_Comment [A utomated message] The Eosinophils) system which ge nerated this result tra nsmitted reference range : <=4.0. The reference r bertha was not used to int erpret this result as normal/abnormal . [facility]CHEM ERJUW1077-56-83 00:23:00 Test Item Value Reference Range Interpretation Comments Lipase Lvl (test code = Lipase Lvl) 129 73-393 [facility]YhxhmjyFGGBDTXCAGNG4206-54-98 00:23:00 Test Item Value Reference Range Interpretation Comments AGAP (test code = AGAP) 11.7 10.0-20.0 [facility]ZkdmmfsXYLXGXPVGDVC9704-24-09 00:23:00 Test Item Value Reference Range Interpretation Comments eGFR (test code = eGFR) 109 [facility]AcrylpkUZMXSXISGNCQ7791-99-72 00:23:00 Test Item Value Reference Range Interpretation Comments BUN (test code = BUN) 8 7-22 [facility]YxfzkhbUVQLNZJSZGYV2779-07-74 00:23:00 Test Item Value Reference Range Interpretation Comments Glucose Lvl (test code = Glucose Lvl) 95 70-99 [facility] MichiganUgflddnAMMPDJPPIWOO4485-01-25 00:23:00 Test Item Value Reference Range Interpretation Comments Sodium Lvl (test code = Sodium Lvl) 139 135-145 [facility]QwtjfnrYNMZQWIJFQTK1040-91-10 00:23:00 Test Item Value Reference Range Interpretation Comments Creatinine Lvl (test code = Creatinine 0.76 0.50-1.40 Lvl) [facility]EwopuomARDBWVKWRREQ9873-63-68 00:23:00 Test Item Value Reference Range Interpretation Comments CO2 (test code = CO2) 25 24-32 [facility]BqhmjjsFQUNXHXDLNEJ4800-56-58 00:23:00 Test Item Value Reference Range Interpretation Comments Calcium Lvl (test code = Calcium Lvl) 8.8 8.5-10.5 [facility]XrkamokVPHRPYFGPRKB9536-75-17 00:23:00 Test Item Value Reference Range Interpretation Comments Chloride Lvl (test code = Chloride Lvl) 106 95-109 [facility] MichiganKhlbphkSMUGTKGJKCYR4798-66-98 00:23:00 Test Item Value Reference Range Interpretation Comments Potassium Lvl (test code = Potassium 3.7 3.5-5.1 Lvl) [facility] HospitalDjacoyuKGIKISPMQH1629-68-52 00:23:00 Test Item Value Reference Range Interpretation Comments Hct (test code = Hct) 36.3 36.0-48.0 [facility] HospitalFklgvnlAXIGHMWODJ0447-75-98 00:23:00 Test Item Value Reference Range Interpretation Comments Hgb (test code = Hgb) 11.6 12.0-16.0 [facility] HospitalDgxwolxUJALMZEDUK2085-50-20 00:23:00 Test Item Value Reference Range Interpretation Comments RBC X 10x6 (test code = RBC X 10x6) 4.47 4.20-5.40 [facility] HospitalWthlfsbPJAOEOMHIY5860-18-99 00:23:00 Test Item Value Reference Range Interpretation Comments Platelet (test code = Platelet) 450 133-450 [facility] HospitalZxsvtxiUILDKFCAST9565-21-95 00:23:00 Test Item Value Reference Range Interpretation Comments RDW (test code = RDW) 18.3 11.5-14.5 [facility] HospitalUeuknncYEYMIMYGAI8397-19-44 00:23:00 Test Item Value Reference Range Interpretation Comments MCHC (test code = MCHC) 31.9 32.0-36.0 [facility] HospitalUcrtwraEJRGKZEGSJ4126-08-71 00:23:00 Test Item Value Reference Range Interpretation Comments MCH (test code = MCH) 25.9 pg 27.0-31.0 [facility] HospitalCkwcisvSBGLPFCHII1421-78-69 00:23:00 Test Item Value Reference Range Interpretation Comments MCV (test code = MCV) 81.3 80.0-98.0 [facility] HospitalNluqmqrEEWGYBKDGT5652-59-51 00:23:00 Test Item Value Reference Range Interpretation Comments MPV (test code = MPV) 8.0 7.4-10.4 [facility] HospitalCxawobyDJBDQVZWXX5307-01-18 00:23:00 Test Item Value Reference Range Interpretation Comments WBC X 10x3 (test code = WBC X 10x3) 16.4 3.7-10.4 [facility] HospitalMpgvqvqMQBVHLQWNA8259-59-68 00:23:00 Test Item Value Reference Range Interpretation Comments Eosinophils # (test code 0.1 See_Comment [A utomated message] The = Eosinophils #) system whic h generated this result tra nsmitted reference range : <=0.5. The reference r bertha was not used to int erpret this result as normal/abnormal . [facility] HospitalJzcrtzvJHDKVYANQV8590-33-24 00:23:00 Test Item Value Reference Range Interpretation Comments Monocytes # (test code 0.8 See_Comment [Aut omated message] The = Monocytes #) system which generated this result tra nsmitted reference range : <=0.8. The reference r bertha was not used to int erpret this result as normal/abnormal . [facility] HospitalSggvjncSFMQQDCOKW5276-50-47 00:23:00 Test Item Value Reference Range Interpretation Comments Basophils # (test code 0.1 See_Comment [Aut omated message] The = Basophils #) system which generated this result tra nsmitted reference range : <=0.2. The reference r bertha was not used to int erpret this result as normal/abnormal . [facility] HospitalOhubnbmKSEGYWFKJN4174-72-60 00:23:00 Test Item Value Reference Range Interpretation Comments Lymphocytes (test code = Lymphocytes) 14.3 20.0-40.0 [facility] HospitalPwzizeeJRJNYGPUCE2964-58-73 00:23:00 Test Item Value Reference Range Interpretation Comments Segs (test code = Segs) 80.0 45.0-75.0 [facility] HospitalBfzsbzzMSXSWTTGGB3432-83-46 00:23:00 Test Item Value Reference Range Interpretation Comments Monocytes (test code = Monocytes) 4.7 2.0-12.0 [facility] HospitalRkvbulbSTYROKFVTZ9137-06-97 00:23:00 Test Item Value Reference Range Interpretation Comments Lymphocytes # (test code = Lymphocytes 2.4 1.0-5.5 #) [facility] HospitalTfeulftURIROGLUHB7126-69-19 00:23:00 Test Item Value Reference Range Interpretation Comments Segs-Bands # (test code = Segs-Bands #) 13.1 1.5-8.1 [facility] HospitalQayxtsyFOOTEUNUNM4833-80-54 00:23:00 Test Item Value Reference Range Interpretation Comments Basophils (test code = 0.4 See_Comment [Aut omated message] The Basophils) system which ge nerated this result tra nsmitted reference range : <=1.0. The reference r bertha was not used to int erpret this result as normal/abnormal . [facility] HospitalBvfxtikZQNCUNEFAH5993-82-75 00:23:00 Test Item Value Reference Range Interpretation Comments Eosinophils (test code = 0.6 See_Comment [A utomated message] The Eosinophils) system which ge nerated this result tra nsmitted reference range : <=4.0. The reference r bertha was not used to int erpret this result as normal/abnormal . [facility]CHEM BUFGZ3789-68-51 00:23:00 Test Item Value Reference Range Interpretation Comments Lipase Lvl (test code = Lipase Lvl) 129 73-393 [facility]XglsskrSCYTZGXPUDLM3415-07-93 00:23:00 Test Item Value Reference Range Interpretation Comments AGAP (test code = AGAP) 11.7 10.0-20.0 [facility]VmwpnaiDPHSUGCAQMVY2916-24-67 00:23:00 Test Item Value Reference Range Interpretation Comments eGFR (test code = eGFR) 109 [facility] MichiganWussmwfRYBEASWUCTEN3909-61-96 00:23:00 Test Item Value Reference Range Interpretation Comments BUN (test code = BUN) 8 7-22 [facility] MichiganDwdanknPKNJTNMNPXOQ5407-20-11 00:23:00 Test Item Value Reference Range Interpretation Comments Glucose Lvl (test code = Glucose Lvl) 95 70-99 [facility] MichiganGwqiccgONZVTJNCFEDC0527-32-54 00:23:00 Test Item Value Reference Range Interpretation Comments Sodium Lvl (test code = Sodium Lvl) 139 135-145 [facility]AfxcukjMQPZCPGCXTBF6154-45-19 00:23:00 Test Item Value Reference Range Interpretation Comments Creatinine Lvl (test code = Creatinine 0.76 0.50-1.40 Lvl) [facility]FblgeefIKDFTPQIXUQY3629-96-64 00:23:00 Test Item Value Reference Range Interpretation Comments CO2 (test code = CO2) 25 24-32 [facility] MichiganBxadopcKKZRWXCNEEOP7262-99-21 00:23:00 Test Item Value Reference Range Interpretation Comments Calcium Lvl (test code = Calcium Lvl) 8.8 8.5-10.5 [facility] MichiganRjuvtziUWQUMMGYSUBZ6486-13-88 00:23:00 Test Item Value Reference Range Interpretation Comments Chloride Lvl (test code = Chloride Lvl) 106 95-109 [facility]PglzgkpKZGNIPGIKBHT7602-85-59 00:23:00 Test Item Value Reference Range Interpretation Comments Potassium Lvl (test code = Potassium 3.7 3.5-5.1 Lvl) [facility] HospitalWrwjdjbBJEWFFXLFN5686-75-56 00:23:00 Test Item Value Reference Range Interpretation Comments Hct (test code = Hct) 36.3 36.0-48.0 [facility] HospitalAywalkxGFCPGQYSEH9627-43-03 00:23:00 Test Item Value Reference Range Interpretation Comments Hgb (test code = Hgb) 11.6 12.0-16.0 [facility] HospitalVlzzkytYNKGOFJPCD7224-00-32 00:23:00 Test Item Value Reference Range Interpretation Comments RBC X 10x6 (test code = RBC X 10x6) 4.47 4.20-5.40 [facility] HospitalIrduvupWCNDNUVHKC0427-62-94 00:23:00 Test Item Value Reference Range Interpretation Comments Platelet (test code = Platelet) 450 133-450 [facility] [facility]ogbl[facility]AGLOCMNMVP1092-47-83 00:23:00 Test Item Value Reference Range Interpretation Comments RDW (test code = RDW) 18.3 11.5-14.5 [facility] HospitalFvvnvknWUTIDNWQJU8421-54-64 00:23:00 Test Item Value Reference Range Interpretation Comments MCHC (test code = MCHC) 31.9 32.0-36.0 [facility] HospitalNxydfwgIFPKHAKTEA0162-58-95 00:23:00 Test Item Value Reference Range Interpretation Comments MCH (test code = MCH) 25.9 pg 27.0-31.0 [facility] HospitalSzkyzrlDITLICTEDZ0140-02-76 00:23:00 Test Item Value Reference Range Interpretation Comments MCV (test code = MCV) 81.3 80.0-98.0 [facility] HospitalSsjmeviLBLOSYLIWU9725-27-15 00:23:00 Test Item Value Reference Range Interpretation Comments MPV (test code = MPV) 8.0 7.4-10.4 [facility] HospitalUeenrdnNDAKXJMBCI5337-20-33 00:23:00 Test Item Value Reference Range Interpretation Comments WBC X 10x3 (test code = WBC X 10x3) 16.4 3.7-10.4 [facility] HospitalEbtjkgaADJOKLQOWG5817-61-17 00:23:00 Test Item Value Reference Range Interpretation Comments Eosinophils # (test code 0.1 See_Comment [A utomated message] The = Eosinophils #) system whic h generated this result tra nsmitted reference range : <=0.5. The reference r bertha was not used to int erpret this result as normal/abnormal . [facility] HospitalRmrzyhjYZIXHNGMEC3231-32-84 00:23:00 Test Item Value Reference Range Interpretation Comments Monocytes # (test code 0.8 See_Comment [Aut omated message] The = Monocytes #) system which generated this result tra nsmitted reference range : <=0.8. The reference r bertha was not used to int erpret this result as normal/abnormal . [facility] HospitalOetowjqTNWENXFUVV8916-24-44 00:23:00 Test Item Value Reference Range Interpretation Comments Basophils # (test code 0.1 See_Comment [Aut omated message] The = Basophils #) system which generated this result tra nsmitted reference range : <=0.2. The reference r bertha was not used to int erpret this result as normal/abnormal . [facility] HospitalGztjlbbJODPOUVUPR8318-36-50 00:23:00 Test Item Value Reference Range Interpretation Comments Lymphocytes (test code = Lymphocytes) 14.3 20.0-40.0 [facility] HospitalEuyfjtvCZCSFSPEIB6844-15-65 00:23:00 Test Item Value Reference Range Interpretation Comments Segs (test code = Segs) 80.0 45.0-75.0 [facility] HospitalGolbhvzMJIMTHDVZS1142-65-48 00:23:00 Test Item Value Reference Range Interpretation Comments Monocytes (test code = Monocytes) 4.7 2.0-12.0 [facility] HospitalMwjkdvdDSFOFQRXBG8273-80-31 00:23:00 Test Item Value Reference Range Interpretation Comments Lymphocytes # (test code = Lymphocytes 2.4 1.0-5.5 #) [facility] HospitalEtvoqnkNHFFRKJBTT7697-72-83 00:23:00 Test Item Value Reference Range Interpretation Comments Segs-Bands # (test code = Segs-Bands #) 13.1 1.5-8.1 [facility] HospitalSetjjjyFYDOLFIHWV4581-58-73 00:23:00 Test Item Value Reference Range Interpretation Comments Basophils (test code = 0.4 See_Comment [Aut omated message] The Basophils) system which ge nerated this result tra nsmitted reference range : <=1.0. The reference r bertha was not used to int erpret this result as normal/abnormal . [facility] HospitalAdqanrpLJFZOWKRGB8607-86-64 00:23:00 Test Item Value Reference Range Interpretation Comments Eosinophils (test code = 0.6 See_Comment [A utomated message] The Eosinophils) system which ge nerated this result tra nsmitted reference range : <=4.0. The reference r bertha was not used to int erpret this result as normal/abnormal . [facility] LVUOJ8769-96-61 00:23:00 Test Item Value Reference Range Interpretation Comments Lipase Lvl (test code = Lipase Lvl) 129 73-393 [facility]WtrayysONCNXGEHQZLL4215-22-97 00:23:00 Test Item Value Reference Range Interpretation Comments AGAP (test code = AGAP) 11.7 10.0-20.0 [facility]ZdefmhhUSRHBIYWPMEG5879-33-05 00:23:00 Test Item Value Reference Range Interpretation Comments eGFR (test code = eGFR) 109 [facility]PrkmhyjKYBSZZRNPDGF2249-51-68 00:23:00 Test Item Value Reference Range Interpretation Comments BUN (test code = BUN) 8 7-22 [facility] MichiganZuwddbrJMHFTSQXRGOL8485-54-92 00:23:00 Test Item Value Reference Range Interpretation Comments Glucose Lvl (test code = Glucose Lvl) 95 70-99 [place] 243956-07-10 00:23:00 Test Item Value Reference Range Interpretation Comments Sodium Lvl (test code = Sodium Lvl) 139 135-145 [facility]MxaxwuzXRRKSXISAWHZ0014-95-68 00:23:00 Test Item Value Reference Range Interpretation Comments Creatinine Lvl (test code = Creatinine 0.76 0.50-1.40 Lvl) [facility]GcnvhsbNNDGEKGVALQG8538-99-07 00:23:00 Test Item Value Reference Range Interpretation Comments CO2 (test code = CO2) 25 24-32 [facility]RbcrmfdQFSTTOOCEZAD8084-99-11 00:23:00 Test Item Value Reference Range Interpretation Comments Calcium Lvl (test code = Calcium Lvl) 8.8 8.5-10.5 [facility] MichiganLiytfgnGCIDYNZBOMYX1498-94-53 00:23:00 Test Item Value Reference Range Interpretation Comments Chloride Lvl (test code = Chloride Lvl) 106 95-109 [facility]ImvfbndHDEXDYEOHDDY4972-41-84 00:23:00 Test Item Value Reference Range Interpretation Comments Potassium Lvl (test code = Potassium 3.7 3.5-5.1 Lvl) [facility] HospitalBkzrexeKNBHCACUUQ4028-18-96 00:23:00 Test Item Value Reference Range Interpretation Comments Hct (test code = Hct) 36.3 36.0-48.0 [facility] HospitalNhnnxpwFWORHQRJWX1717-71-05 00:23:00 Test Item Value Reference Range Interpretation Comments Hgb (test code = Hgb) 11.6 12.0-16.0 [facility] HospitalIoozsazBQQEDYROZK9840-62-06 00:23:00 Test Item Value Reference Range Interpretation Comments RBC X 10x6 (test code = RBC X 10x6) 4.47 4.20-5.40 [facility] HospitalCqmrskjTBMKNNSQFT5922-31-39 00:23:00 Test Item Value Reference Range Interpretation Comments Platelet (test code = Platelet) 450 133-450 [facility] HospitalPsawmooUFKAFKFEIV9783-08-44 00:23:00 Test Item Value Reference Range Interpretation Comments RDW (test code = RDW) 18.3 11.5-14.5 [facility] HospitalLqfdwqdYJMYLVCCGH6342-77-02 00:23:00 Test Item Value Reference Range Interpretation Comments MCHC (test code = MCHC) 31.9 32.0-36.0 [facility] HospitalEgblvqaBJCWQRNOES9385-05-93 00:23:00 Test Item Value Reference Range Interpretation Comments MCH (test code = MCH) 25.9 pg 27.0-31.0 [facility] HospitalYhldocoGTHXNYKLWF6476-31-11 00:23:00 Test Item Value Reference Range Interpretation Comments MCV (test code = MCV) 81.3 80.0-98.0 [facility] HospitalFpunlqzYYWUDMNTHC4912-18-76 00:23:00 Test Item Value Reference Range Interpretation Comments MPV (test code = MPV) 8.0 7.4-10.4 [facility] HospitalHbprejfLUNSOHDSGI5231-69-76 00:23:00 Test Item Value Reference Range Interpretation Comments WBC X 10x3 (test code = WBC X 10x3) 16.4 3.7-10.4 [facility] HospitalSejqeebSHDRETEYON4796-77-55 00:23:00 Test Item Value Reference Range Interpretation Comments Eosinophils # (test code 0.1 See_Comment [A utomated message] The = Eosinophils #) system whic h generated this result tra nsmitted reference range : <=0.5. The reference r bertha was not used to int erpret this result as normal/abnormal . [facility] HospitalQqhnpjsQBSPMOOUNK5366-02-40 00:23:00 Test Item Value Reference Range Interpretation Comments Monocytes # (test code 0.8 See_Comment [Aut omated message] The = Monocytes #) system which generated this result tra nsmitted reference range : <=0.8. The reference r bertha was not used to int erpret this result as normal/abnormal . [facility] HospitalShgppqmFJSTUZGEWU5897-98-02 00:23:00 Test Item Value Reference Range Interpretation Comments Basophils # (test code 0.1 See_Comment [Aut omated message] The = Basophils #) system which generated this result tra nsmitted reference range : <=0.2. The reference r bertha was not used to int erpret this result as normal/abnormal . [facility] HospitalPpztdziWDQTHKZDDC3861-60-12 00:23:00 Test Item Value Reference Range Interpretation Comments Lymphocytes (test code = Lymphocytes) 14.3 20.0-40.0 [facility] HospitalIwxvyfwYEDAINOWKM9045-64-88 00:23:00 Test Item Value Reference Range Interpretation Comments Segs (test code = Segs) 80.0 45.0-75.0 [facility] HospitalMfbgodaIPSKMDVMWL8971-99-79 00:23:00 Test Item Value Reference Range Interpretation Comments Monocytes (test code = Monocytes) 4.7 2.0-12.0 [facility] HospitalSwqzmmjWBGMECRVUD9854-72-34 00:23:00 Test Item Value Reference Range Interpretation Comments Lymphocytes # (test code = Lymphocytes 2.4 1.0-5.5 #) [facility] HospitalRmfooazBUOJLUNGHY9881-35-81 00:23:00 Test Item Value Reference Range Interpretation Comments Segs-Bands # (test code = Segs-Bands #) 13.1 1.5-8.1 [facility] HospitalOujfwmnGNUMAOXNKH8074-24-54 00:23:00 Test Item Value Reference Range Interpretation Comments Basophils (test code = 0.4 See_Comment [Aut omated message] The Basophils) system which ge nerated this result tra nsmitted reference range : <=1.0. The reference r bertha was not used to int erpret this result as normal/abnormal . [facility] HospitalRnpvlaqERUIUCDUGL8590-78-34 00:23:00 Test Item Value Reference Range Interpretation Comments Eosinophils (test code = 0.6 See_Comment [A utomated message] The Eosinophils) system which ge nerated this result tra nsmitted reference range : <=4.0. The reference r bertha was not used to int erpret this result as normal/abnormal . [facility]2016-07-10 00:23:00 Test Item Value Reference Range Interpretation Comments Lipase Lvl (test code = Lipase Lvl) 129 73-393 [facility]UxjbvpzHYLPWRYJYMKW1640-43-32 00:23:00 Test Item Value Reference Range Interpretation Comments AGAP (test code = AGAP) 11.7 10.0-20.0 [facility]WcvhszfHDXKJNZGDMZK7125-93-33 00:23:00 Test Item Value Reference Range Interpretation Comments eGFR (test code = eGFR) 109 [facility]NltbtuxNSQRYOVCQBXW5264-38-73 00:23:00 Test Item Value Reference Range Interpretation Comments BUN (test code = BUN) 8 7-22 [facility]YgcpdsfUQBRITHPZWAX2237-09-37 00:23:00 Test Item Value Reference Range Interpretation Comments Glucose Lvl (test code = Glucose Lvl) 95 70-99 [facility]LfdfyecTAEBZGXJXVLN3450-65-95 00:23:00 Test Item Value Reference Range Interpretation Comments Sodium Lvl (test code = Sodium Lvl) 139 135-145 [facility] MichiganQuverpjTIDYFTTRAHBL7264-52-99 00:23:00 Test Item Value Reference Range Interpretation Comments Creatinine Lvl (test code = Creatinine 0.76 0.50-1.40 Lvl) [facility]NygtwmaITEYJBCVSAIT8532-59-40 00:23:00 Test Item Value Reference Range Interpretation Comments CO2 (test code = CO2) 25 24-32 [facility]RhgyanuYCTDWKRQEJYC3342-51-11 00:23:00 Test Item Value Reference Range Interpretation Comments Calcium Lvl (test code = Calcium Lvl) 8.8 8.5-10.5 [facility]LxhjeboKDRSFRYXJNQM3588-17-83 00:23:00 Test Item Value Reference Range Interpretation Comments Chloride Lvl (test code = Chloride Lvl) 106 95-109 [facility] MichiganBpzfnyiIERROMBWNGRH3601-87-35 00:23:00 Test Item Value Reference Range Interpretation Comments Potassium Lvl (test code = Potassium 3.7 3.5-5.1 Lvl) [facility] HospitalOhjoaqmLKLAJWGMBX2549-06-90 00:23:00 Test Item Value Reference Range Interpretation Comments Hct (test code = Hct) 36.3 36.0-48.0 [facility] HospitalVscrplvCDIKGVQVGQ0133-18-16 00:23:00 Test Item Value Reference Range Interpretation Comments Hgb (test code = Hgb) 11.6 12.0-16.0 [facility] HospitalFbaolkvNWCKTLUYPE6396-91-54 00:23:00 Test Item Value Reference Range Interpretation Comments RBC X 10x6 (test code = RBC X 10x6) 4.47 4.20-5.40 [facility] HospitalAejkmdmROBHRTUIZT5949-24-68 00:23:00 Test Item Value Reference Range Interpretation Comments Platelet (test code = Platelet) 450 133-450 [facility] HospitalIbphvdcZBQLTDJLTH8456-59-24 00:23:00 Test Item Value Reference Range Interpretation Comments RDW (test code = RDW) 18.3 11.5-14.5 [facility] HospitalQmbzclnXHDDQRBDXD8510-87-01 00:23:00 Test Item Value Reference Range Interpretation Comments MCHC (test code = MCHC) 31.9 32.0-36.0 [facility] HospitalEjqwgyhCRTOBBARJC5204-18-66 00:23:00 Test Item Value Reference Range Interpretation Comments MCH (test code = MCH) 25.9 pg 27.0-31.0 [facility] HospitalBnilaqcJANOIJWLJI4942-31-82 00:23:00 Test Item Value Reference Range Interpretation Comments MCV (test code = MCV) 81.3 80.0-98.0 [facility] HospitalGkuxrvdXIMXTZKDXY0339-76-81 00:23:00 Test Item Value Reference Range Interpretation Comments MPV (test code = MPV) 8.0 7.4-10.4 [facility] HospitalMebeilkZBUKBPDNYH7667-95-45 00:23:00 Test Item Value Reference Range Interpretation Comments WBC X 10x3 (test code = WBC X 10x3) 16.4 3.7-10.4 [facility] HospitalTaovteiDTTWJTQPHP0208-62-10 00:23:00 Test Item Value Reference Range Interpretation Comments Eosinophils # (test code 0.1 See_Comment [A utomated message] The = Eosinophils #) system whic h generated this result tra nsmitted reference range : <=0.5. The reference r bertha was not used to int erpret this result as normal/abnormal . [facility] HospitalFzxwfkyYPASVCZDKG1217-82-00 00:23:00 Test Item Value Reference Range Interpretation Comments Monocytes # (test code 0.8 See_Comment [Aut omated message] The = Monocytes #) system which generated this result tra nsmitted reference range : <=0.8. The reference r bertha was not used to int erpret this result as normal/abnormal . [facility] HospitalTmuvmopFWLSYCABKJ8088-97-79 00:23:00 Test Item Value Reference Range Interpretation Comments Basophils # (test code 0.1 See_Comment [Aut omated message] The = Basophils #) system which generated this result tra nsmitted reference range : <=0.2. The reference r bertha was not used to int erpret this result as normal/abnormal . [facility] HospitalIeojzzpCMTQVIYXNC5895-31-76 00:23:00 Test Item Value Reference Range Interpretation Comments Lymphocytes (test code = Lymphocytes) 14.3 20.0-40.0 [facility] HospitalGjykjdqKRLFVZWDMI7439-37-10 00:23:00 Test Item Value Reference Range Interpretation Comments Segs (test code = Segs) 80.0 45.0-75.0 [facility] HospitalEhkmagwPPPKWMSKNB6180-21-32 00:23:00 Test Item Value Reference Range Interpretation Comments Monocytes (test code = Monocytes) 4.7 2.0-12.0 [facility] HospitalSovyjygUAWZHQQFIA5273-21-73 00:23:00 Test Item Value Reference Range Interpretation Comments Lymphocytes # (test code = Lymphocytes 2.4 1.0-5.5 #) [facility] HospitalWrxeernBIIYWZIGMT9308-54-42 00:23:00 Test Item Value Reference Range Interpretation Comments Segs-Bands # (test code = Segs-Bands #) 13.1 1.5-8.1 [facility] HospitalHfwrvfaDWDXWVAFQO3048-28-47 00:23:00 Test Item Value Reference Range Interpretation Comments Basophils (test code = 0.4 See_Comment [Aut omated message] The Basophils) system which ge nerated this result tra nsmitted reference range : <=1.0. The reference r bertha was not used to int erpret this result as normal/abnormal . [facility] HospitalPhckrqxEWXKZNOAVV5331-34-28 00:23:00 Test Item Value Reference Range Interpretation Comments Eosinophils (test code = 0.6 See_Comment [A utomated message] The Eosinophils) system which ge nerated this result tra nsmitted reference range : <=4.0. The reference r bertha was not used to int erpret this result as normal/abnormal . [facility] QXKQW9768-62-68 00:23:00 Test Item Value Reference Range Interpretation Comments Lipase Lvl (test code = Lipase Lvl) 129 73-393 [facility]RzclnhsWHNDYWAAWJQL2508-44-11 00:23:00 Test Item Value Reference Range Interpretation Comments AGAP (test code = AGAP) 11.7 10.0-20.0 [facility]OqobeloIBQBZHNGOWVJ6965-46-19 00:23:00 Test Item Value Reference Range Interpretation Comments eGFR (test code = eGFR) 109 [facility]RfykpwpRAZGLFQALJZI8383-31-03 00:23:00 Test Item Value Reference Range Interpretation Comments BUN (test code = BUN) 8 7-22 [facility] MichiganZdvjuhgNCANZQCNGWQO7856-28-32 00:23:00 Test Item Value Reference Range Interpretation Comments Glucose Lvl (test code = Glucose Lvl) 95 70-99 [facility]GgumzmuSGYSEGSVQSTD5841-63-07 00:23:00 Test Item Value Reference Range Interpretation Comments Sodium Lvl (test code = Sodium Lvl) 139 135-145 [facility]QvmlvbaGNVLGONWDIVD7827-54-92 00:23:00 Test Item Value Reference Range Interpretation Comments Creatinine Lvl (test code = Creatinine 0.76 0.50-1.40 Lvl) [facility]MspnjmaWBNCJITDBKMU7881-00-40 00:23:00 Test Item Value Reference Range Interpretation Comments CO2 (test code = CO2) 25 24-32 [facility]QirzhhhCZCHNPPTEOKW1849-79-03 00:23:00 Test Item Value Reference Range Interpretation Comments Calcium Lvl (test code = Calcium Lvl) 8.8 8.5-10.5 [facility]OmarngzPQXBDQPDEOGX2075-76-13 00:23:00 Test Item Value Reference Range Interpretation Comments Chloride Lvl (test code = Chloride Lvl) 106 95-109 [facility] MichiganZzlonclEDCRLHEIKAUC6185-26-80 00:23:00 Test Item Value Reference Range Interpretation Comments Potassium Lvl (test code = Potassium 3.7 3.5-5.1 Lvl) [facility] HospitalJanmqfaZRBADPZJUA9130-89-52 00:23:00 Test Item Value Reference Range Interpretation Comments Hct (test code = Hct) 36.3 36.0-48.0 [facility] HospitalKrfyozcRTZKWRBTRJ6870-62-86 00:23:00 Test Item Value Reference Range Interpretation Comments Hgb (test code = Hgb) 11.6 12.0-16.0 [facility] HospitalVusykojFDFKVVLXOY6599-27-33 00:23:00 Test Item Value Reference Range Interpretation Comments RBC X 10x6 (test code = RBC X 10x6) 4.47 4.20-5.40 [facility] HospitalPyljsksVSGWMTDHZS3692-40-37 00:23:00 Test Item Value Reference Range Interpretation Comments Platelet (test code = Platelet) 450 133-450 [facility] HospitalQhltkjkQQQMZYYFZG0732-79-11 00:23:00 Test Item Value Reference Range Interpretation Comments RDW (test code = RDW) 18.3 11.5-14.5 [facility] HospitalSjykawkYCKIPGILVF8327-95-09 00:23:00 Test Item Value Reference Range Interpretation Comments MCHC (test code = MCHC) 31.9 32.0-36.0 [facility] HospitalDftnsycDKULWZRIAX5964-31-20 00:23:00 Test Item Value Reference Range Interpretation Comments MCH (test code = MCH) 25.9 pg 27.0-31.0 [facility] HospitalUhmpzkkLPXOCKUOPV5284-75-24 00:23:00 Test Item Value Reference Range Interpretation Comments MCV (test code = MCV) 81.3 80.0-98.0 [facility] HospitalWnkwxevANZJYNOFQM4167-69-05 00:23:00 Test Item Value Reference Range Interpretation Comments MPV (test code = MPV) 8.0 7.4-10.4 [facility] HospitalBhssqjhPTPENBZTJG8247-02-45 00:23:00 Test Item Value Reference Range Interpretation Comments WBC X 10x3 (test code = WBC X 10x3) 16.4 3.7-10.4 [facility] HospitalSyuiwfqRQFIMTSIWM6536-76-04 00:23:00 Test Item Value Reference Range Interpretation Comments Eosinophils # (test code 0.1 See_Comment [A utomated message] The = Eosinophils #) system whic h generated this result tra nsmitted reference range : <=0.5. The reference r bertha was not used to int erpret this result as normal/abnormal . [facility] HospitalTdamckrGZPXIBGSAK6818-88-27 00:23:00 Test Item Value Reference Range Interpretation Comments Monocytes # (test code 0.8 See_Comment [Aut omated message] The = Monocytes #) system which generated this result tra nsmitted reference range : <=0.8. The reference r bertha was not used to int erpret this result as normal/abnormal . [facility] HospitalIlkyocnPGGIYXPBPG8424-05-91 00:23:00 Test Item Value Reference Range Interpretation Comments Basophils # (test code 0.1 See_Comment [Aut omated message] The = Basophils #) system which generated this result tra nsmitted reference range : <=0.2. The reference r bertha was not used to int erpret this result as normal/abnormal . [facility] HospitalGnmxrrnHUJQTATAQN5987-73-02 00:23:00 Test Item Value Reference Range Interpretation Comments Lymphocytes (test code = Lymphocytes) 14.3 20.0-40.0 [facility] HospitalAkblvpnIWINMRXIBE9871-49-26 00:23:00 Test Item Value Reference Range Interpretation Comments Segs (test code = Segs) 80.0 45.0-75.0 [facility] HospitalHbrbvdfGAJBKRUDLS8364-53-71 00:23:00 Test Item Value Reference Range Interpretation Comments Monocytes (test code = Monocytes) 4.7 2.0-12.0 [facility] HospitalSyqtejtIPMQBJNVOO5660-66-90 00:23:00 Test Item Value Reference Range Interpretation Comments Lymphocytes # (test code = Lymphocytes 2.4 1.0-5.5 #) [facility] HospitalZmxzhfdCUTAYVGLZE4498-05-49 00:23:00 Test Item Value Reference Range Interpretation Comments Segs-Bands # (test code = Segs-Bands #) 13.1 1.5-8.1 [facility] HospitalYnbhhjoMZDEIZJRCT0022-18-24 00:23:00 Test Item Value Reference Range Interpretation Comments Basophils (test code = 0.4 See_Comment [Aut omated message] The Basophils) system which ge nerated this result tra nsmitted reference range : <=1.0. The reference r bertha was not used to int erpret this result as normal/abnormal . [facility] HospitalOoidpczYDTJIRYDMW9961-97-95 00:23:00 Test Item Value Reference Range Interpretation Comments Eosinophils (test code = 0.6 See_Comment [A utomated message] The Eosinophils) system which ge nerated this result tra nsmitted reference range : <=4.0. The reference r bertha was not used to int erpret this result as normal/abnormal . [facility]2016-07-10 00:23:00 Test Item Value Reference Range Interpretation Comments Lipase Lvl (test code = Lipase Lvl) 129 73-393 [facility]EtrsllpVMMMXRMYMNFD0844-17-26 00:23:00 Test Item Value Reference Range Interpretation Comments AGAP (test code = AGAP) 11.7 10.0-20.0 [facility]PkwrvwcNOZZZKDMFFZI2325-14-99 00:23:00 Test Item Value Reference Range Interpretation Comments eGFR (test code = eGFR) 109 [facility]YqjdosyWYBRUIOGFBMO9849-85-66 00:23:00 Test Item Value Reference Range Interpretation Comments BUN (test code = BUN) 8 7-22 [facility]FqsmrmhELMFVHXZVAQM9086-38-41 00:23:00 Test Item Value Reference Range Interpretation Comments Glucose Lvl (test code = Glucose Lvl) 95 70-99 [facility] MichiganDrobjvlPAAZMLOXABHG9170-50-26 00:23:00 Test Item Value Reference Range Interpretation Comments Sodium Lvl (test code = Sodium Lvl) 139 135-145 [facility] MichiganPlmkedeHAJCTLRVVTDP9841-72-83 00:23:00 Test Item Value Reference Range Interpretation Comments Creatinine Lvl (test code = Creatinine 0.76 0.50-1.40 Lvl) [facility]BrbveyaDRKXQSYBNXFV1574-76-74 00:23:00 Test Item Value Reference Range Interpretation Comments CO2 (test code = CO2) 25 24-32 [facility] MichiganJfuvmwvPYUNXDVABPTP4451-78-46 00:23:00 Test Item Value Reference Range Interpretation Comments Calcium Lvl (test code = Calcium Lvl) 8.8 8.5-10.5 [facility]YwvqqdxZVWYJCTWVFKG8274-44-15 00:23:00 Test Item Value Reference Range Interpretation Comments Chloride Lvl (test code = Chloride Lvl) 106 95-109 [facility] MichiganNwfnzhpECQTELKFLPWE6643-86-22 00:23:00 Test Item Value Reference Range Interpretation Comments Potassium Lvl (test code = Potassium 3.7 3.5-5.1 Lvl) [facility] HospitalApbbqpvOORXCXGJIB9339-04-88 00:23:00 Test Item Value Reference Range Interpretation Comments Hct (test code = Hct) 36.3 36.0-48.0 [facility] HospitalJetfycbNTWBZCNKVV0886-82-93 00:23:00 Test Item Value Reference Range Interpretation Comments Hgb (test code = Hgb) 11.6 12.0-16.0 [facility] HospitalEnpcqhoDPLQNTFRUK7966-74-55 00:23:00 Test Item Value Reference Range Interpretation Comments RBC X 10x6 (test code = RBC X 10x6) 4.47 4.20-5.40 [facility] HospitalWfvksnoZDINWBZJSC6709-50-43 00:23:00 Test Item Value Reference Range Interpretation Comments Platelet (test code = Platelet) 450 133-450 [id number] 00:23:00 Test Item Value Reference Range Interpretation Comments RDW (test code = RDW) 18.3 11.5-14.5 [facility] Hos[id number] 00:23:00 Test Item Value Reference Range Interpretation Comments MCHC (test code = MCHC) 31.9 32.0-36.0 [facility] [id number] 00:23:00 Test Item Value Reference Range Interpretation Comments MCH (test code = MCH) 25.9 pg 27.0-31.0 [facility] Hospit[id number] 00:23:00 Test Item Value Reference Range Interpretation Comments MCV (test code = MCV) 81.3 80.0-98.0 [facility] Hospit[id number] 00:23:00 Test Item Value Reference Range Interpretation Comments MPV (test code = MPV) 8.0 7.4-10.4 [facility] H[id number] 00:23:00 Test Item Value Reference Range Interpretation Comments WBC X 10x3 (test code = WBC X 10x3) 16.4 3.7-10.4 [facility] Hos[id number] 00:23:00 Test Item Value Reference Range Interpretation Comments Eosinophils # (test code 0.1 See_Comment [A utomated message] The = Eosinophils #) system whic h generated this result tra nsmitted reference range : <=0.5. The reference r bertha was not used to int erpret this result as normal/abnormal . [facility] HospitalPncwrubLYMYJCUHLE4515-11-23 00:23:00 Test Item Value Reference Range Interpretation Comments Monocytes # (test code 0.8 See_Comment [Aut omated message] The = Monocytes #) system which generated this result tra nsmitted reference range : <=0.8. The reference r bertha was not used to int erpret this result as normal/abnormal . [facility] HospitalFpzndylTPVDNBNQUO1319-49-58 00:23:00 Test Item Value Reference Range Interpretation Comments Basophils # (test code 0.1 See_Comment [Aut omated message] The = Basophils #) system which generated this result tra nsmitted reference range : <=0.2. The reference r bertha was not used to int erpret this result as normal/abnormal . [facility] Hos[id number] 00:23:00 Test Item Value Reference Range Interpretation Comments Lymphocytes (test code = Lymphocytes) 14.3 20.0-40.0 [facility] Ho[id number] 00:23:00 Test Item Value Reference Range Interpretation Comments Segs (test code = Segs) 80.0 45.0-75.0 [facility] HospitalSntwuikPHQFOGBLYP0712-14-21 00:23:00 Test Item Value Reference Range Interpretation Comments Monocytes (test code = Monocytes) 4.7 2.0-12.0 [facility] Hospit[id number] 00:23:00 Test Item Value Reference Range Interpretation Comments Lymphocytes # (test code = Lymphocytes 2.4 1.0-5.5 #) [facility] Hospit[id number] 00:23:00 Test Item Value Reference Range Interpretation Comments Segs-Bands # (test code = Segs-Bands #) 13.1 1.5-8.1 [facility] Hos[id number] 00:23:00 Test Item Value Reference Range Interpretation Comments Basophils (test code = 0.4 See_Comment [Aut omated message] The Basophils) system which ge nerated this result tra nsmitted reference range : <=1.0. The reference r bertha was not used to int erpret this result as normal/abnormal . [facility] HospitalIwglzbeUMCVLKLBMA2375-17-64 00:23:00 Test Item Value Reference Range Interpretation Comments Eosinophils (test code = 0.6 See_Comment [A utomated message] The Eosinophils) system which ge nerated this result tra nsmitted reference range : <=4.0. The reference r bertha was not used to int erpret this result as normal/abnormal . [facility] AND [id number] 23:17:00 Test Item Value Reference Range Interpretation Comments UA Bacteria (test code = UA Few /HPF Bacteria) [facility] AND [id number] 23:17:00 Test Item Value Reference Range Interpretation Comments UA RBC (test code = 0-2 /HPF See_Comment [Automa daphne message] The UA RBC) system which ge nerated this result tra nsmitted reference range : <=2. The reference range was not used to interpr et this result as fatuma l/abnormal. [facility] AND [id number] 23:17:00 Test Item Value Reference Range Interpretation Comments UA WBC (test code = UA WBC) 0-2 /HPF [facility] AND [id number] 23:17:00 Test Item Value Reference Range Interpretation Comments UA Sq Epi (test code = UA Sq Moderate /LPF Epi) [facility] AND [id number] 23:17:00 Test Item Value Reference Range Interpretation Comments UA Nitrite (test code Negative (12/20/15 6:17 = UA Nitrite) PM) [facility] AND [id number] 23:17:00 Test Item Value Reference Range Interpretation Comments UA Blood (test code = Negative (12/20/15 6:17 UA Blood) PM) [facility] AND [id number] 23:17:00 Test Item Value Reference Range Interpretation Comments UA Leuk Est (test Negative (12/20/15 6:17 code = UA Leuk Est) PM) [facility] AND [id number] 23:17:00 Test Item Value Reference Range Interpretation Comments UA Turbidity (test code = Clear (12/20/15 6:17 UA Turbidity) PM) [facility] AND [id number] 23:17:00 Test Item Value Reference Range Interpretation Comments UA Spec Grav (test code = UA Spec 1.015 1 Grav) [facility] AND [id number] 23:17:00 Test Item Value Reference Range Interpretation Comments UA Color (test code = Yellow *NA*(12/20/15 6:17 UA Color) PM) [facility] AND [id number] 23:17:00 Test Item Value Reference Range Interpretation Comments UA Urobilinogen (test code = UA 0.2 0.1-1.0 Urobilinogen) [facility] AND [id number] 23:17:00 Test Item Value Reference Range Interpretation Comments Micro? (test code = Performed (12/20/15 6:17 Micro?) PM) [facility] AND [id number] 23:17:00 Test Item Value Reference Range Interpretation Comments UA Glucose (test code Negative (12/20/15 6:17 = UA Glucose) PM) [facility] AND [id number] 23:17:00 Test Item Value Reference Range Interpretation Comments UA pH (test code = UA >=9.0 *ABN*(12/20/15 6:17 5.0-8.0 pH) PM) [facility] AND [id number] 23:17:00 Test Item Value Reference Range Interpretation Comments UA Ketones (test code Negative *NA*(12/20/15 = UA Ketones) 6:17 PM) [facility] AND [id number] 23:17:00 Test Item Value Reference Range Interpretation Comments UA Protein (test code = Trace *ABN*(12/20/15 UA Protein) 6:17 PM) [facility] AND [id number] 23:17:00 Test Item Value Reference Range Interpretation Comments UA Bili (test code = Negative *NA*(12/20/15 UA Bili) 6:17 PM) [facility] [id number] 23:17:00 Test Item Value Reference Range Interpretation Comments U Preg (test code = U Negative (12/20/15 6:17 Preg) PM) [facility] [id number] 23:17:00 Test Item Value Reference Range Interpretation Comments UA Bacteria (test code = UA Few /HPF Bacteria) [facility] [id number] 23:17:00 Test Item Value Reference Range Interpretation Comments UA RBC (test code = 0-2 /HPF See_Comment [Automa daphne message] The UA RBC) system which ge nerated this result tra nsmitted reference range : <=2. The reference range was not used to interpr et this result as fatuma l/abnormal. [facility] [id number] 23:17:00 Test Item Value Reference Range Interpretation Comments UA WBC (test code = UA WBC) 0-2 /HPF [facility] AND [id number] 23:17:00 Test Item Value Reference Range Interpretation Comments UA Sq Epi (test code = UA Sq Moderate /LPF Epi) [facility] AND [id number] 23:17:00 Test Item Value Reference Range Interpretation Comments UA Nitrite (test code Negative (12/20/15 6:17 = UA Nitrite) PM) [facility] [id number] 23:17:00 Test Item Value Reference Range Interpretation Comments UA Blood (test code = Negative (12/20/15 6:17 UA Blood) PM) [facility] AND [id number] 23:17:00 Test Item Value Reference Range Interpretation Comments UA Leuk Est (test Negative (12/20/15 6:17 code = UA Leuk Est) PM) [facility] AND [id number] 23:17:00 Test Item Value Reference Range Interpretation Comments UA Turbidity (test code = Clear (12/20/15 6:17 UA Turbidity) PM) [facility] [id number] 23:17:00 Test Item Value Reference Range Interpretation Comments UA Spec Grav (test code = UA Spec 1.015 1 Grav) [facility] AND [id number] 23:17:00 Test Item Value Reference Range Interpretation Comments UA Color (test code = Yellow *NA*(12/20/15 6:17 UA Color) PM) [facility] [id number] 23:17:00 Test Item Value Reference Range Interpretation Comments UA Urobilinogen (test code = UA 0.2 0.1-1.0 Urobilinogen) [facility] [id number] 23:17:00 Test Item Value Reference Range Interpretation Comments Micro? (test code = Performed (12/20/15 6:17 Micro?) PM) [facility] [id number] 23:17:00 Test Item Value Reference Range Interpretation Comments UA Glucose (test code Negative (12/20/15 6:17 = UA Glucose) PM) [facility] [id number] 23:17:00 Test Item Value Reference Range Interpretation Comments UA pH (test code = UA >=9.0 *ABN*(12/20/15 6:17 5.0-8.0 pH) PM) [facility] [id number] 23:17:00 Test Item Value Reference Range Interpretation Comments UA Ketones (test code Negative *NA*(12/20/15 = UA Ketones) 6:17 PM) [facility] [id number] 23:17:00 Test Item Value Reference Range Interpretation Comments UA Protein (test code = Trace *ABN*(12/20/15 UA Protein) 6:17 PM) [facility] [id number] 23:17:00 Test Item Value Reference Range Interpretation Comments UA Bili (test code = Negative *NA*(12/20/15 UA Bili) 6:17 PM) [facility] [id number] 23:17:00 Test Item Value Reference Range Interpretation Comments U Preg (test code = U Negative (12/20/15 6:17 Preg) PM) [facility] [id number] 23:17:00 Test Item Value Reference Range Interpretation Comments UA Bacteria (test code = UA Few /HPF Bacteria) [facility] [id number] 23:17:00 Test Item Value Reference Range Interpretation Comments UA RBC (test code = 0-2 /HPF See_Comment [Automa daphne message] The UA RBC) system which ge nerated this result tra nsmitted reference range : <=2. The reference range was not used to interpr et this result as fatuma l/abnormal. [facility] AND [id number] 23:17:00 Test Item Value Reference Range Interpretation Comments UA WBC (test code = UA WBC) 0-2 /HPF [facility] AND [id number] 23:17:00 Test Item Value Reference Range Interpretation Comments UA Sq Epi (test code = UA Sq Moderate /LPF Epi) [facility] AND [id number] 23:17:00 Test Item Value Reference Range Interpretation Comments UA Nitrite (test code Negative (12/20/15 6:17 = UA Nitrite) PM) [facility] AND [id number] 23:17:00 Test Item Value Reference Range Interpretation Comments UA Blood (test code = Negative (12/20/15 6:17 UA Blood) PM) [facility] AND [id number] 23:17:00 Test Item Value Reference Range Interpretation Comments UA Leuk Est (test Negative (12/20/15 6:17 code = UA Leuk Est) PM) [facility] AND [id number] 23:17:00 Test Item Value Reference Range Interpretation Comments UA Turbidity (test code = Clear (12/20/15 6:17 UA Turbidity) PM) [facility] AND [id number] 23:17:00 Test Item Value Reference Range Interpretation Comments UA Spec Grav (test code = UA Spec 1.015 1 Grav) [facility] AND [id number] 23:17:00 Test Item Value Reference Range Interpretation Comments UA Color (test code = Yellow *NA*(12/20/15 6:17 UA Color) PM) [facility] AND [id number] 23:17:00 Test Item Value Reference Range Interpretation Comments UA Urobilinogen (test code = UA 0.2 0.1-1.0 Urobilinogen) [facility] AND [id number] 23:17:00 Test Item Value Reference Range Interpretation Comments Micro? (test code = Performed (12/20/15 6:17 Micro?) PM) [facility] AND [id number] 23:17:00 Test Item Value Reference Range Interpretation Comments UA Glucose (test code Negative (12/20/15 6:17 = UA Glucose) PM) [facility] AND [id number] 23:17:00 Test Item Value Reference Range Interpretation Comments UA pH (test code = UA >=9.0 *ABN*(12/20/15 6:17 5.0-8.0 pH) PM) [facility] AND [id number] 23:17:00 Test Item Value Reference Range Interpretation Comments UA Ketones (test code Negative *NA*(12/20/15 = UA Ketones) 6:17 PM) [facility] AND [id number] 23:17:00 Test Item Value Reference Range Interpretation Comments UA Protein (test code = Trace *ABN*(12/20/15 UA Protein) 6:17 PM) [facility] AND [id number] 23:17:00 Test Item Value Reference Range Interpretation Comments UA Bili (test code = Negative *NA*(12/20/15 UA Bili) 6:17 PM) [facility] [id number] 23:17:00 Test Item Value Reference Range Interpretation Comments U Preg (test code = U Negative (12/20/15 6:17 Preg) PM) [facility] AND [id number] 23:17:00 Test Item Value Reference Range Interpretation Comments UA Bacteria (test code = UA Few /HPF Bacteria) [facility] AND [id number] 23:17:00 Test Item Value Reference Range Interpretation Comments UA RBC (test code = 0-2 /HPF See_Comment [Automa daphne message] The UA RBC) system which ge nerated this result tra nsmitted reference range : <=2. The reference range was not used to interpr et this result as fatuma l/abnormal. [facility] AND [id number] 23:17:00 Test Item Value Reference Range Interpretation Comments UA WBC (test code = UA WBC) 0-2 /HPF [facility] AND [id number] 23:17:00 Test Item Value Reference Range Interpretation Comments UA Sq Epi (test code = UA Sq Moderate /LPF Epi) [facility] AND [id number] 23:17:00 Test Item Value Reference Range Interpretation Comments UA Nitrite (test code Negative (12/20/15 6:17 = UA Nitrite) PM) [facility] AND [id number] 23:17:00 Test Item Value Reference Range Interpretation Comments UA Blood (test code = Negative (12/20/15 6:17 UA Blood) PM) [facility] AND [id number] 23:17:00 Test Item Value Reference Range Interpretation Comments UA Leuk Est (test Negative (12/20/15 6:17 code = UA Leuk Est) PM) [facility] AND [id number] 23:17:00 Test Item Value Reference Range Interpretation Comments UA Turbidity (test code = Clear (12/20/15 6:17 UA Turbidity) PM) [facility] AND [id number] 23:17:00 Test Item Value Reference Range Interpretation Comments UA Spec Grav (test code = UA Spec 1.015 1 Grav) [facility] AND [id number] 23:17:00 Test Item Value Reference Range Interpretation Comments UA Color (test code = Yellow *NA*(12/20/15 6:17 UA Color) PM) [facility] AND [id number] 23:17:00 Test Item Value Reference Range Interpretation Comments UA Urobilinogen (test code = UA 0.2 0.1-1.0 Urobilinogen) [facility] AND [id number] 23:17:00 Test Item Value Reference Range Interpretation Comments Micro? (test code = Performed (12/20/15 6:17 Micro?) PM) [facility] AND [id number] 23:17:00 Test Item Value Reference Range Interpretation Comments UA Glucose (test code Negative (12/20/15 6:17 = UA Glucose) PM) [facility] AND [id number] 23:17:00 Test Item Value Reference Range Interpretation Comments UA pH (test code = UA >=9.0 *ABN*(12/20/15 6:17 5.0-8.0 pH) PM) [facility] AND [id number] 23:17:00 Test Item Value Reference Range Interpretation Comments UA Ketones (test code Negative *NA*(12/20/15 = UA Ketones) 6:17 PM) [facility] AND [id number] 23:17:00 Test Item Value Reference Range Interpretation Comments UA Protein (test code = Trace *ABN*(12/20/15 UA Protein) 6:17 PM) [facility] [id number] 23:17:00 Test Item Value Reference Range Interpretation Comments UA Bili (test code = Negative *NA*(12/20/15 UA Bili) 6:17 PM) [facility] [id number] 23:17:00 Test Item Value Reference Range Interpretation Comments U Preg (test code = U Negative (12/20/15 6:17 Preg) PM) [facility] [id number] 23:17:00 Test Item Value Reference Range Interpretation Comments UA Bacteria (test code = UA Few /HPF Bacteria) [facility] [id number] 23:17:00 Test Item Value Reference Range Interpretation Comments UA RBC (test code = 0-2 /HPF See_Comment [Automa daphne message] The UA RBC) system which ge nerated this result tra nsmitted reference range : <=2. The reference range was not used to interpr et this result as fatuma l/abnormal. [facility] AND [id number] 23:17:00 Test Item Value Reference Range Interpretation Comments UA WBC (test code = UA WBC) 0-2 /HPF [facility] [id number] 23:17:00 Test Item Value Reference Range Interpretation Comments UA Sq Epi (test code = UA Sq Moderate /LPF Epi) [facility] [id number] 23:17:00 Test Item Value Reference Range Interpretation Comments UA Nitrite (test code Negative (12/20/15 6:17 = UA Nitrite) PM) [facility] AND [id number] 23:17:00 Test Item Value Reference Range Interpretation Comments UA Blood (test code = Negative (12/20/15 6:17 UA Blood) PM) [facility] [id number] 23:17:00 Test Item Value Reference Range Interpretation Comments UA Leuk Est (test Negative (12/20/15 6:17 code = UA Leuk Est) PM) [facility] [id number] 23:17:00 Test Item Value Reference Range Interpretation Comments UA Turbidity (test code = Clear (12/20/15 6:17 UA Turbidity) PM) [facility] [id number] 23:17:00 Test Item Value Reference Range Interpretation Comments UA Spec Grav (test code = UA Spec 1.015 1 Grav) [facility] [id number] 23:17:00 Test Item Value Reference Range Interpretation Comments UA Color (test code = Yellow *NA*(12/20/15 6:17 UA Color) PM) [facility] [id number] 23:17:00 Test Item Value Reference Range Interpretation Comments UA Urobilinogen (test code = UA 0.2 0.1-1.0 Urobilinogen) [facility] [id number] 23:17:00 Test Item Value Reference Range Interpretation Comments Micro? (test code = Performed (12/20/15 6:17 Micro?) PM) [facility] [id number] 23:17:00 Test Item Value Reference Range Interpretation Comments UA Glucose (test code Negative (12/20/15 6:17 = UA Glucose) PM) [facility] [id number] 23:17:00 Test Item Value Reference Range Interpretation Comments UA pH (test code = UA >=9.0 *ABN*(12/20/15 6:17 5.0-8.0 pH) PM) [facility] [id number] 23:17:00 Test Item Value Reference Range Interpretation Comments UA Ketones (test code Negative *NA*(12/20/15 = UA Ketones) 6:17 PM) [facility] [id number] 23:17:00 Test Item Value Reference Range Interpretation Comments UA Protein (test code = Trace *ABN*(12/20/15 UA Protein) 6:17 PM) [facility] [id number] 23:17:00 Test Item Value Reference Range Interpretation Comments UA Bili (test code = Negative *NA*(12/20/15 UA Bili) 6:17 PM) [facility] [id number] 23:17:00 Test Item Value Reference Range Interpretation Comments U Preg (test code = U Negative (12/20/15 6:17 Preg) PM) [facility] [id number] 23:17:00 Test Item Value Reference Range Interpretation Comments UA Bacteria (test code = UA Few /HPF Bacteria) [facility] AND [id number] 23:17:00 Test Item Value Reference Range Interpretation Comments UA RBC (test code = 0-2 /HPF See_Comment [Automa daphne message] The UA RBC) system which ge nerated this result tra nsmitted reference range : <=2. The reference range was not used to interpr et this result as fatuma l/abnormal. [facility] AND [id number] 23:17:00 Test Item Value Reference Range Interpretation Comments UA WBC (test code = UA WBC) 0-2 /HPF [facility] AND [id number] 23:17:00 Test Item Value Reference Range Interpretation Comments UA Sq Epi (test code = UA Sq Moderate /LPF Epi) [facility] AND [id number] 23:17:00 Test Item Value Reference Range Interpretation Comments UA Nitrite (test code Negative (12/20/15 6:17 = UA Nitrite) PM) [facility] AND [id number] 23:17:00 Test Item Value Reference Range Interpretation Comments UA Blood (test code = Negative (12/20/15 6:17 UA Blood) PM) [facility] AND [id number] 23:17:00 Test Item Value Reference Range Interpretation Comments UA Leuk Est (test Negative (12/20/15 6:17 code = UA Leuk Est) PM) [facility] AND [id number] 23:17:00 Test Item Value Reference Range Interpretation Comments UA Turbidity (test code = Clear (12/20/15 6:17 UA Turbidity) PM) [facility] AND [id number] 23:17:00 Test Item Value Reference Range Interpretation Comments UA Spec Grav (test code = UA Spec 1.015 1 Grav) [facility] AND [id number] 23:17:00 Test Item Value Reference Range Interpretation Comments UA Color (test code = Yellow *NA*(12/20/15 6:17 UA Color) PM) [facility] AND [id number] 23:17:00 Test Item Value Reference Range Interpretation Comments UA Urobilinogen (test code = UA 0.2 0.1-1.0 Urobilinogen) [facility] AND [id number] 23:17:00 Test Item Value Reference Range Interpretation Comments Micro? (test code = Performed (12/20/15 6:17 Micro?) PM) [facility] [id number] 23:17:00 Test Item Value Reference Range Interpretation Comments UA Glucose (test code Negative (12/20/15 6:17 = UA Glucose) PM) [facility] [id number] 23:17:00 Test Item Value Reference Range Interpretation Comments UA pH (test code = UA >=9.0 *ABN*(12/20/15 6:17 5.0-8.0 pH) PM) [facility] [id number] 23:17:00 Test Item Value Reference Range Interpretation Comments UA Ketones (test code Negative *NA*(12/20/15 = UA Ketones) 6:17 PM) [facility] [id number] 23:17:00 Test Item Value Reference Range Interpretation Comments UA Protein (test code = Trace *ABN*(12/20/15 UA Protein) 6:17 PM) [facility] [id number] 23:17:00 Test Item Value Reference Range Interpretation Comments UA Bili (test code = Negative *NA*(12/20/15 UA Bili) 6:17 PM) [facility] [id number] 23:17:00 Test Item Value Reference Range Interpretation Comments U Preg (test code = U Negative (12/20/15 6:17 Preg) PM) [facility] [id number] 23:17:00 Test Item Value Reference Range Interpretation Comments UA Bacteria (test code = UA Few /HPF Bacteria) [facility] [id number] 23:17:00 Test Item Value Reference Range Interpretation Comments UA RBC (test code = 0-2 /HPF See_Comment [Automa daphne message] The UA RBC) system which ge nerated this result tra nsmitted reference range : <=2. The reference range was not used to interpr et this result as fatuma l/abnormal. [facility] AND [id number] 23:17:00 Test Item Value Reference Range Interpretation Comments UA WBC (test code = UA WBC) 0-2 /HPF [facility]ann[facility] AND [id number] 23:17:00 Test Item Value Reference Range Interpretation Comments UA Sq Epi (test code = UA Sq Moderate /LPF Epi) [facility] AND [id number] 23:17:00 Test Item Value Reference Range Interpretation Comments UA Nitrite (test code Negative (12/20/15 6:17 = UA Nitrite) PM) [facility] AND [id number] 23:17:00 Test Item Value Reference Range Interpretation Comments UA Blood (test code = Negative (12/20/15 6:17 UA Blood) PM) [facility] AND [id number] 23:17:00 Test Item Value Reference Range Interpretation Comments UA Leuk Est (test Negative (12/20/15 6:17 code = UA Leuk Est) PM) [facility] AND [id number] 23:17:00 Test Item Value Reference Range Interpretation Comments UA Turbidity (test code = Clear (12/20/15 6:17 UA Turbidity) PM) [facility] AND [id number] 23:17:00 Test Item Value Reference Range Interpretation Comments UA Spec Grav (test code = UA Spec 1.015 1 Grav) [facility] AND [id number] 23:17:00 Test Item Value Reference Range Interpretation Comments UA Color (test code = Yellow *NA*(12/20/15 6:17 UA Color) PM) [facility] AND [id number] 23:17:00 Test Item Value Reference Range Interpretation Comments UA Urobilinogen (test code = UA 0.2 0.1-1.0 Urobilinogen) [facility] AND [id number] 23:17:00 Test Item Value Reference Range Interpretation Comments Micro? (test code = Performed (12/20/15 6:17 Micro?) PM) [facility] AND [id number] 23:17:00 Test Item Value Reference Range Interpretation Comments UA Glucose (test code Negative (12/20/15 6:17 = UA Glucose) PM) [facility] AND [id number] 23:17:00 Test Item Value Reference Range Interpretation Comments UA pH (test code = UA >=9.0 *ABN*(12/20/15 6:17 5.0-8.0 pH) PM) [facility] [id number] 23:17:00 Test Item Value Reference Range Interpretation Comments UA Ketones (test code Negative *NA*(12/20/15 = UA Ketones) 6:17 PM) [facility] [id number] 23:17:00 Test Item Value Reference Range Interpretation Comments UA Protein (test code = Trace *ABN*(12/20/15 UA Protein) 6:17 PM) [facility] [id number] 23:17:00 Test Item Value Reference Range Interpretation Comments UA Bili (test code = Negative *NA*(12/20/15 UA Bili) 6:17 PM) [facility] [id number] 23:17:00 Test Item Value Reference Range Interpretation Comments U Preg (test code = U Negative (12/20/15 6:17 Preg) PM) [facility] AND [id number] 23:17:00 Test Item Value Reference Range Interpretation Comments UA Bacteria (test code = UA Few /HPF Bacteria) [facility] [id number] 23:17:00 Test Item Value Reference Range Interpretation Comments UA RBC (test code = 0-2 /HPF See_Comment [Automa daphne message] The UA RBC) system which ge nerated this result tra nsmitted reference range : <=2. The reference range was not used to interpr et this result as fatuma l/abnormal. [facility] [id number] 23:17:00 Test Item Value Reference Range Interpretation Comments UA WBC (test code = UA WBC) 0-2 /HPF [facility] AND [id number] 23:17:00 Test Item Value Reference Range Interpretation Comments UA Sq Epi (test code = UA Sq Moderate /LPF Epi) [facility] AND [id number] 23:17:00 Test Item Value Reference Range Interpretation Comments UA Nitrite (test code Negative (12/20/15 6:17 = UA Nitrite) PM) [facility] [id number] 23:17:00 Test Item Value Reference Range Interpretation Comments UA Blood (test code = Negative (12/20/15 6:17 UA Blood) PM) [facility] [id number] 23:17:00 Test Item Value Reference Range Interpretation Comments UA Leuk Est (test Negative (12/20/15 6:17 code = UA Leuk Est) PM) [facility] AND [id number] 23:17:00 Test Item Value Reference Range Interpretation Comments UA Turbidity (test code = Clear (12/20/15 6:17 UA Turbidity) PM) [facility] AND [id number] 23:17:00 Test Item Value Reference Range Interpretation Comments UA Spec Grav (test code = UA Spec 1.015 1 Grav) [facility] AND [id number] 23:17:00 Test Item Value Reference Range Interpretation Comments UA Color (test code = Yellow *NA*(12/20/15 6:17 UA Color) PM) [facility] AND [id number] 23:17:00 Test Item Value Reference Range Interpretation Comments UA Urobilinogen (test code = UA 0.2 0.1-1.0 Urobilinogen) [facility] AND [id number] 23:17:00 Test Item Value Reference Range Interpretation Comments Micro? (test code = Performed (12/20/15 6:17 Micro?) PM) [facility] AND [id number] 23:17:00 Test Item Value Reference Range Interpretation Comments UA Bacteria (test code = UA Few /HPF Bacteria) [facility] AND [id number] 23:17:00 Test Item Value Reference Range Interpretation Comments UA RBC (test code = 0-2 /HPF See_Comment [Automa daphne message] The UA RBC) system which ge nerated this result tra nsmitted reference range : <=2. The reference range was not used to interpr et this result as fatuma l/abnormal. [facility] AND [id number] 23:17:00 Test Item Value Reference Range Interpretation Comments UA WBC (test code = UA WBC) 0-2 /HPF [facility] AND [id number] 23:17:00 Test Item Value Reference Range Interpretation Comments UA Glucose (test code Negative (12/20/15 6:17 = UA Glucose) PM) [facility] AND [id number] 23:17:00 Test Item Value Reference Range Interpretation Comments UA Sq Epi (test code = UA Sq Moderate /LPF Epi) [facility] AND [id number] 23:17:00 Test Item Value Reference Range Interpretation Comments UA Nitrite (test code Negative (12/20/15 6:17 = UA Nitrite) PM) [facility] AND [id number] 23:17:00 Test Item Value Reference Range Interpretation Comments UA Blood (test code = Negative (12/20/15 6:17 UA Blood) PM) [facility] AND [id number] 23:17:00 Test Item Value Reference Range Interpretation Comments UA Leuk Est (test Negative (12/20/15 6:17 code = UA Leuk Est) PM) [facility] AND [id number] 23:17:00 Test Item Value Reference Range Interpretation Comments UA Turbidity (test code = Clear (12/20/15 6:17 UA Turbidity) PM) [facility] AND [id number] 23:17:00 Test Item Value Reference Range Interpretation Comments UA Spec Grav (test code = UA Spec 1.015 1 Grav) [facility] AND [id number] 23:17:00 Test Item Value Reference Range Interpretation Comments UA Color (test code = Yellow *NA*(12/20/15 6:17 UA Color) PM) [facility] AND [id number] 23:17:00 Test Item Value Reference Range Interpretation Comments UA Urobilinogen (test code = UA 0.2 0.1-1.0 Urobilinogen) [facility] AND [id number] 23:17:00 Test Item Value Reference Range Interpretation Comments Micro? (test code = Performed (12/20/15 6:17 Micro?) PM) [facility] AND [id number] 23:17:00 Test Item Value Reference Range Interpretation Comments UA Glucose (test code Negative (12/20/15 6:17 = UA Glucose) PM) [facility] AND [id number] 23:17:00 Test Item Value Reference Range Interpretation Comments UA pH (test code = UA >=9.0 *ABN*(12/20/15 6:17 5.0-8.0 pH) PM) [facility] AND [id number] 23:17:00 Test Item Value Reference Range Interpretation Comments UA pH (test code = UA >=9.0 *ABN*(12/20/15 6:17 5.0-8.0 pH) PM) [facility] [id number] 23:17:00 Test Item Value Reference Range Interpretation Comments UA Ketones (test code Negative *NA*(12/20/15 = UA Ketones) 6:17 PM) [facility] [id number] 23:17:00 Test Item Value Reference Range Interpretation Comments UA Protein (test code = Trace *ABN*(12/20/15 UA Protein) 6:17 PM) [facility] [id number] 23:17:00 Test Item Value Reference Range Interpretation Comments UA Bili (test code = Negative *NA*(12/20/15 UA Bili) 6:17 PM) [facility] [id number] 23:17:00 Test Item Value Reference Range Interpretation Comments U Preg (test code = U Negative (12/20/15 6:17 Preg) PM) [facility] [id number] 23:17:00 Test Item Value Reference Range Interpretation Comments UA Ketones (test code Negative *NA*(12/20/15 = UA Ketones) 6:17 PM) [facility] AND [id number] 23:17:00 Test Item Value Reference Range Interpretation Comments UA Protein (test code = Trace *ABN*(12/20/15 UA Protein) 6:17 PM) [facility] AND [id number] 23:17:00 Test Item Value Reference Range Interpretation Comments UA Bili (test code = Negative *NA*(12/20/15 UA Bili) 6:17 PM) [facility] [id number] 23:17:00 Test Item Value Reference Range Interpretation Comments U Preg (test code = U Negative (12/20/15 6:17 Preg) PM) [facility] AND [id number] 23:17:00 Test Item Value Reference Range Interpretation Comments UA Bacteria (test code = UA Few /HPF Bacteria) [facility] AND [id number] 23:17:00 Test Item Value Reference Range Interpretation Comments UA RBC (test code = 0-2 /HPF See_Comment [Automa daphne message] The UA RBC) system which ge nerated this result tra nsmitted reference range : <=2. The reference range was not used to interpr et this result as fatuma l/abnormal. [facility] AND [id number] 23:17:00 Test Item Value Reference Range Interpretation Comments UA WBC (test code = UA WBC) 0-2 /HPF [facility] AND [id number] 23:17:00 Test Item Value Reference Range Interpretation Comments UA Sq Epi (test code = UA Sq Moderate /LPF Epi) [facility] AND [id number] 23:17:00 Test Item Value Reference Range Interpretation Comments UA Nitrite (test code Negative (12/20/15 6:17 = UA Nitrite) PM) [facility] AND [id number] 23:17:00 Test Item Value Reference Range Interpretation Comments UA Blood (test code = Negative (12/20/15 6:17 UA Blood) PM) [facility] AND [id number] 23:17:00 Test Item Value Reference Range Interpretation Comments UA Leuk Est (test Negative (12/20/15 6:17 code = UA Leuk Est) PM) [facility] AND [id number] 23:17:00 Test Item Value Reference Range Interpretation Comments UA Turbidity (test code = Clear (12/20/15 6:17 UA Turbidity) PM) [facility] AND [id number] 23:17:00 Test Item Value Reference Range Interpretation Comments UA Spec Grav (test code = UA Spec 1.015 1 Grav) [facility] AND [id number] 23:17:00 Test Item Value Reference Range Interpretation Comments UA Color (test code = Yellow *NA*(12/20/15 6:17 UA Color) PM) [facility] AND [id number] 23:17:00 Test Item Value Reference Range Interpretation Comments UA Urobilinogen (test code = UA 0.2 0.1-1.0 Urobilinogen) [facility] AND [id number] 23:17:00 Test Item Value Reference Range Interpretation Comments Micro? (test code = Performed (12/20/15 6:17 Micro?) PM) [facility] AND [id number] 23:17:00 Test Item Value Reference Range Interpretation Comments UA Glucose (test code Negative (12/20/15 6:17 = UA Glucose) PM) [facility] [id number] 23:17:00 Test Item Value Reference Range Interpretation Comments UA pH (test code = UA >=9.0 *ABN*(12/20/15 6:17 5.0-8.0 pH) PM) [facility] [id number] 23:17:00 Test Item Value Reference Range Interpretation Comments UA Ketones (test code Negative *NA*(12/20/15 = UA Ketones) 6:17 PM) [facility] [id number] 23:17:00 Test Item Value Reference Range Interpretation Comments UA Protein (test code = Trace *ABN*(12/20/15 UA Protein) 6:17 PM) [facility] [id number] 23:17:00 Test Item Value Reference Range Interpretation Comments UA Bili (test code = Negative *NA*(12/20/15 UA Bili) 6:17 PM) [facility] [id number] 23:17:00 Test Item Value Reference Range Interpretation Comments U Preg (test code = U Negative (12/20/15 6:17 Preg) PM) [facility] AND [id number] 23:17:00 Test Item Value Reference Range Interpretation Comments UA Bacteria (test code = UA Few /HPF Bacteria) [facility] [id number] 23:17:00 Test Item Value Reference Range Interpretation Comments UA RBC (test code = 0-2 /HPF See_Comment [Automa daphne message] The UA RBC) system which ge nerated this result tra nsmitted reference range : <=2. The reference range was not used to interpr et this result as fatuma l/abnormal. [facility] [id number] 23:17:00 Test Item Value Reference Range Interpretation Comments UA WBC (test code = UA WBC) 0-2 /HPF [facility] [id number] 23:17:00 Test Item Value Reference Range Interpretation Comments UA Sq Epi (test code = UA Sq Moderate /LPF Epi) [facility] [id number] 23:17:00 Test Item Value Reference Range Interpretation Comments UA Nitrite (test code Negative (12/20/15 6:17 = UA Nitrite) PM) [facility] AND [id number] 23:17:00 Test Item Value Reference Range Interpretation Comments UA Blood (test code = Negative (12/20/15 6:17 UA Blood) PM) [facility] AND [id number] 23:17:00 Test Item Value Reference Range Interpretation Comments UA Leuk Est (test Negative (12/20/15 6:17 code = UA Leuk Est) PM) [facility] AND [id number] 23:17:00 Test Item Value Reference Range Interpretation Comments UA Turbidity (test code = Clear (12/20/15 6:17 UA Turbidity) PM) [facility] AND [id number] 23:17:00 Test Item Value Reference Range Interpretation Comments UA Spec Grav (test code = UA Spec 1.015 1 Grav) [facility] AND [id number] 23:17:00 Test Item Value Reference Range Interpretation Comments UA Color (test code = Yellow *NA*(12/20/15 6:17 UA Color) PM) [facility] AND [id number] 23:17:00 Test Item Value Reference Range Interpretation Comments UA Urobilinogen (test code = UA 0.2 0.1-1.0 Urobilinogen) [facility] AND [id number] 23:17:00 Test Item Value Reference Range Interpretation Comments Micro? (test code = Performed (12/20/15 6:17 Micro?) PM) [facility] AND [id number] 23:17:00 Test Item Value Reference Range Interpretation Comments UA Glucose (test code Negative (12/20/15 6:17 = UA Glucose) PM) [facility] AND [id number] 23:17:00 Test Item Value Reference Range Interpretation Comments UA pH (test code = UA >=9.0 *ABN*(12/20/15 6:17 5.0-8.0 pH) PM) [facility] AND [id number] 23:17:00 Test Item Value Reference Range Interpretation Comments UA Ketones (test code Negative *NA*(12/20/15 = UA Ketones) 6:17 PM) [facility] AND [id number] 23:17:00 Test Item Value Reference Range Interpretation Comments UA Protein (test code = Trace *ABN*(12/20/15 UA Protein) 6:17 PM) [facility] [id number] 23:17:00 Test Item Value Reference Range Interpretation Comments UA Bili (test code = Negative *NA*(12/20/15 UA Bili) 6:17 PM) [facility] [id number] 23:17:00 Test Item Value Reference Range Interpretation Comments U Preg (test code = U Negative (12/20/15 6:17 Preg) PM) [facility] [id number] 23:17:00 Test Item Value Reference Range Interpretation Comments UA Bacteria (test code = UA Few /HPF Bacteria) [facility] [id number] 23:17:00 Test Item Value Reference Range Interpretation Comments UA RBC (test code = 0-2 /HPF See_Comment [Automa daphne message] The UA RBC) system which ge nerated this result tra nsmitted reference range : <=2. The reference range was not used to interpr et this result as fatuma l/abnormal. [facility] [id number] 23:17:00 Test Item Value Reference Range Interpretation Comments UA WBC (test code = UA WBC) 0-2 /HPF [facility] [id number] 23:17:00 Test Item Value Reference Range Interpretation Comments UA Sq Epi (test code = UA Sq Moderate /LPF Epi) [facility] [id number] 23:17:00 Test Item Value Reference Range Interpretation Comments UA Nitrite (test code Negative (12/20/15 6:17 = UA Nitrite) PM) [facility] [id number] 23:17:00 Test Item Value Reference Range Interpretation Comments UA Blood (test code = Negative (12/20/15 6:17 UA Blood) PM) [facility] [id number] 23:17:00 Test Item Value Reference Range Interpretation Comments UA Leuk Est (test Negative (12/20/15 6:17 code = UA Leuk Est) PM) [facility] [id number] 23:17:00 Test Item Value Reference Range Interpretation Comments UA Turbidity (test code = Clear (12/20/15 6:17 UA Turbidity) PM) [facility] [id number] 23:17:00 Test Item Value Reference Range Interpretation Comments UA Spec Grav (test code = UA Spec 1.015 1 Grav) [facility] [id number] 23:17:00 Test Item Value Reference Range Interpretation Comments UA Color (test code = Yellow *NA*(12/20/15 6:17 UA Color) PM) [facility] [id number] 23:17:00 Test Item Value Reference Range Interpretation Comments UA Urobilinogen (test code = UA 0.2 0.1-1.0 Urobilinogen) [facility] [id number] 23:17:00 Test Item Value Reference Range Interpretation Comments Micro? (test code = Performed (12/20/15 6:17 Micro?) PM) [facility] [id number] 23:17:00 Test Item Value Reference Range Interpretation Comments UA Glucose (test code Negative (12/20/15 6:17 = UA Glucose) PM) [facility] [id number] 23:17:00 Test Item Value Reference Range Interpretation Comments UA pH (test code = UA >=9.0 *ABN*(12/20/15 6:17 5.0-8.0 pH) PM) [facility] [id number] 23:17:00 Test Item Value Reference Range Interpretation Comments UA Ketones (test code Negative *NA*(12/20/15 = UA Ketones) 6:17 PM) [facility] [id number] 23:17:00 Test Item Value Reference Range Interpretation Comments UA Protein (test code = Trace *ABN*(12/20/15 UA Protein) 6:17 PM) [facility] [id number] 23:17:00 Test Item Value Reference Range Interpretation Comments UA Bili (test code = Negative *NA*(12/20/15 UA Bili) 6:17 PM) [facility] [id number] 23:17:00 Test Item Value Reference Range Interpretation Comments U Preg (test code = U Negative (12/20/15 6:17 Preg) PM) [facility] [id number] 23:17:00 Test Item Value Reference Range Interpretation Comments UA Bacteria (test code = UA Few /HPF Bacteria) [facility] [id number] 23:17:00 Test Item Value Reference Range Interpretation Comments UA RBC (test code = 0-2 /HPF See_Comment [Automa daphne message] The UA RBC) system which ge nerated this result tra nsmitted reference range : <=2. The reference range was not used to interpr et this result as fatuma l/abnormal. [facility] AND [id number] 23:17:00 Test Item Value Reference Range Interpretation Comments UA WBC (test code = UA WBC) 0-2 /HPF [facility] AND [id number] 23:17:00 Test Item Value Reference Range Interpretation Comments UA Sq Epi (test code = UA Sq Moderate /LPF Epi) [facility] AND [id number] 23:17:00 Test Item Value Reference Range Interpretation Comments UA Nitrite (test code Negative (12/20/15 6:17 = UA Nitrite) PM) [facility] AND [id number] 23:17:00 Test Item Value Reference Range Interpretation Comments UA Blood (test code = Negative (12/20/15 6:17 UA Blood) PM) [facility] AND [id number] 23:17:00 Test Item Value Reference Range Interpretation Comments UA Leuk Est (test Negative (12/20/15 6:17 code = UA Leuk Est) PM) [facility] AND [id number] 23:17:00 Test Item Value Reference Range Interpretation Comments UA Turbidity (test code = Clear (12/20/15 6:17 UA Turbidity) PM) [facility] AND [id number] 23:17:00 Test Item Value Reference Range Interpretation Comments UA Spec Grav (test code = UA Spec 1.015 1 Grav) [facility] AND [id number] 23:17:00 Test Item Value Reference Range Interpretation Comments UA Color (test code = Yellow *NA*(12/20/15 6:17 UA Color) PM) [facility] AND [id number] 23:17:00 Test Item Value Reference Range Interpretation Comments UA Urobilinogen (test code = UA 0.2 0.1-1.0 Urobilinogen) [facility] AND [id number] 23:17:00 Test Item Value Reference Range Interpretation Comments Micro? (test code = Performed (12/20/15 6:17 Micro?) PM) [facility] [id number] 23:17:00 Test Item Value Reference Range Interpretation Comments UA Glucose (test code Negative (12/20/15 6:17 = UA Glucose) PM) [facility] [id number] 23:17:00 Test Item Value Reference Range Interpretation Comments UA pH (test code = UA >=9.0 *ABN*(12/20/15 6:17 5.0-8.0 pH) PM) [facility] [id number] 23:17:00 Test Item Value Reference Range Interpretation Comments UA Ketones (test code Negative *NA*(12/20/15 = UA Ketones) 6:17 PM) [facility] [id number] 23:17:00 Test Item Value Reference Range Interpretation Comments UA Protein (test code = Trace *ABN*(12/20/15 UA Protein) 6:17 PM) [facility] [id number] 23:17:00 Test Item Value Reference Range Interpretation Comments UA Bili (test code = Negative *NA*(12/20/15 UA Bili) 6:17 PM) [facility] [id number] 23:17:00 Test Item Value Reference Range Interpretation Comments U Preg (test code = U Negative (12/20/15 6:17 Preg) PM) [facility] [id number] 23:17:00 Test Item Value Reference Range Interpretation Comments UA Bacteria (test code = UA Few /HPF Bacteria) [facility] [id number] 23:17:00 Test Item Value Reference Range Interpretation Comments UA RBC (test code = 0-2 /HPF See_Comment [Automa daphne message] The UA RBC) system which ge nerated this result tra nsmitted reference range : <=2. The reference range was not used to interpr et this result as fatuma l/abnormal. [facility] AND [id number] 23:17:00 Test Item Value Reference Range Interpretation Comments UA WBC (test code = UA WBC) 0-2 /HPF [facility] AND [id number] 23:17:00 Test Item Value Reference Range Interpretation Comments UA Sq Epi (test code = UA Sq Moderate /LPF Epi) [facility] AND [id number] 23:17:00 Test Item Value Reference Range Interpretation Comments UA Nitrite (test code Negative (12/20/15 6:17 = UA Nitrite) PM) [facility] AND [id number] 23:17:00 Test Item Value Reference Range Interpretation Comments UA Blood (test code = Negative (12/20/15 6:17 UA Blood) PM) [facility] AND [id number] 23:17:00 Test Item Value Reference Range Interpretation Comments UA Leuk Est (test Negative (12/20/15 6:17 code = UA Leuk Est) PM) [facility] AND [id number] 23:17:00 Test Item Value Reference Range Interpretation Comments UA Turbidity (test code = Clear (12/20/15 6:17 UA Turbidity) PM) [facility] AND [id number] 23:17:00 Test Item Value Reference Range Interpretation Comments UA Spec Grav (test code = UA Spec 1.015 1 Grav) [facility] AND [id number] 23:17:00 Test Item Value Reference Range Interpretation Comments UA Color (test code = Yellow *NA*(12/20/15 6:17 UA Color) PM) [facility] AND [id number] 23:17:00 Test Item Value Reference Range Interpretation Comments UA Urobilinogen (test code = UA 0.2 0.1-1.0 Urobilinogen) [facility] AND [id number] 23:17:00 Test Item Value Reference Range Interpretation Comments Micro? (test code = Performed (12/20/15 6:17 Micro?) PM) [facility] AND [id number] 23:17:00 Test Item Value Reference Range Interpretation Comments UA Glucose (test code Negative (12/20/15 6:17 = UA Glucose) PM) [facility] AND [id number] 23:17:00 Test Item Value Reference Range Interpretation Comments UA pH (test code = UA >=9.0 *ABN*(12/20/15 6:17 5.0-8.0 pH) PM) [facility] AND [id number] 23:17:00 Test Item Value Reference Range Interpretation Comments UA Ketones (test code Negative *NA*(12/20/15 = UA Ketones) 6:17 PM) [facility] [id number] 23:17:00 Test Item Value Reference Range Interpretation Comments UA Protein (test code = Trace *ABN*(12/20/15 UA Protein) 6:17 PM) [facility] AND [id number] 23:17:00 Test Item Value Reference Range Interpretation Comments UA Bili (test code = Negative *NA*(12/20/15 UA Bili) 6:17 PM) [facility] [id number] 23:17:00 Test Item Value Reference Range Interpretation Comments U Preg (test code = U Negative (12/20/15 6:17 Preg) PM) [facility] AND [id number] 23:17:00 Test Item Value Reference Range Interpretation Comments UA Bacteria (test code = UA Few /HPF Bacteria) [facility] AND [id number] 23:17:00 Test Item Value Reference Range Interpretation Comments UA RBC (test code = 0-2 /HPF See_Comment [Automa daphne message] The UA RBC) system which ge nerated this result tra nsmitted reference range : <=2. The reference range was not used to interpr et this result as fatuma l/abnormal. [facility] AND [id number] 23:17:00 Test Item Value Reference Range Interpretation Comments UA WBC (test code = UA WBC) 0-2 /HPF [facility] AND [id number] 23:17:00 Test Item Value Reference Range Interpretation Comments UA Sq Epi (test code = UA Sq Moderate /LPF Epi) [facility] AND [id number] 23:17:00 Test Item Value Reference Range Interpretation Comments UA Nitrite (test code Negative (12/20/15 6:17 = UA Nitrite) PM) [facility] AND [id number] 23:17:00 Test Item Value Reference Range Interpretation Comments UA Blood (test code = Negative (12/20/15 6:17 UA Blood) PM) [facility] AND [id number] 23:17:00 Test Item Value Reference Range Interpretation Comments UA Leuk Est (test Negative (12/20/15 6:17 code = UA Leuk Est) PM) [facility] [id number] 23:17:00 Test Item Value Reference Range Interpretation Comments UA Turbidity (test code = Clear (12/20/15 6:17 UA Turbidity) PM) [facility] [id number] 23:17:00 Test Item Value Reference Range Interpretation Comments UA Spec Grav (test code = UA Spec 1.015 1 Grav) [facility] [id number] 23:17:00 Test Item Value Reference Range Interpretation Comments UA Color (test code = Yellow *NA*(12/20/15 6:17 UA Color) PM) [facility] [id number] 23:17:00 Test Item Value Reference Range Interpretation Comments UA Urobilinogen (test code = UA 0.2 0.1-1.0 Urobilinogen) [facility] [id number] 23:17:00 Test Item Value Reference Range Interpretation Comments Micro? (test code = Performed (12/20/15 6:17 Micro?) PM) [facility] [id number] 23:17:00 Test Item Value Reference Range Interpretation Comments UA Glucose (test code Negative (12/20/15 6:17 = UA Glucose) PM) [facility] [id number] 23:17:00 Test Item Value Reference Range Interpretation Comments UA pH (test code = UA >=9.0 *ABN*(12/20/15 6:17 5.0-8.0 pH) PM) [facility] [id number] 23:17:00 Test Item Value Reference Range Interpretation Comments UA Ketones (test code Negative *NA*(12/20/15 = UA Ketones) 6:17 PM) [facility] [id number] 23:17:00 Test Item Value Reference Range Interpretation Comments UA Protein (test code = Trace *ABN*(12/20/15 UA Protein) 6:17 PM) [facility] [id number] 23:17:00 Test Item Value Reference Range Interpretation Comments UA Bili (test code = Negative *NA*(12/20/15 UA Bili) 6:17 PM) [facility] [id number] 23:17:00 Test Item Value Reference Range Interpretation Comments U Preg (test code = U Negative (12/20/15 6:17 Preg) PM) [facility] AND [id number] 23:17:00 Test Item Value Reference Range Interpretation Comments UA Bacteria (test code = UA Few /HPF Bacteria) [facility] AND [id number] 23:17:00 Test Item Value Reference Range Interpretation Comments UA RBC (test code = 0-2 /HPF See_Comment [Automa daphne message] The UA RBC) system which ge nerated this result tra nsmitted reference range : <=2. The reference range was not used to interpr et this result as fatuma l/abnormal. [facility] AND [id number] 23:17:00 Test Item Value Reference Range Interpretation Comments UA WBC (test code = UA WBC) 0-2 /HPF [facility] AND [id number] 23:17:00 Test Item Value Reference Range Interpretation Comments UA Sq Epi (test code = UA Sq Moderate /LPF Epi) [facility] AND [id number] 23:17:00 Test Item Value Reference Range Interpretation Comments UA Nitrite (test code Negative (12/20/15 6:17 = UA Nitrite) PM) [facility] AND [id number] 23:17:00 Test Item Value Reference Range Interpretation Comments UA Blood (test code = Negative (12/20/15 6:17 UA Blood) PM) [facility] AND [id number] 23:17:00 Test Item Value Reference Range Interpretation Comments UA Leuk Est (test Negative (12/20/15 6:17 code = UA Leuk Est) PM) [facility] AND [id number] 23:17:00 Test Item Value Reference Range Interpretation Comments UA Turbidity (test code = Clear (12/20/15 6:17 UA Turbidity) PM) [facility] AND [id number] 23:17:00 Test Item Value Reference Range Interpretation Comments UA Spec Grav (test code = UA Spec 1.015 1 Grav) [facility] AND [id number] 23:17:00 Test Item Value Reference Range Interpretation Comments UA Color (test code = Yellow *NA*(12/20/15 6:17 UA Color) PM) [facility] [id number] 23:17:00 Test Item Value Reference Range Interpretation Comments UA Urobilinogen (test code = UA 0.2 0.1-1.0 Urobilinogen) [facility] [id number] 23:17:00 Test Item Value Reference Range Interpretation Comments Micro? (test code = Performed (12/20/15 6:17 Micro?) PM) [facility] [id number] 23:17:00 Test Item Value Reference Range Interpretation Comments UA Glucose (test code Negative (12/20/15 6:17 = UA Glucose) PM) [facility] [id number] 23:17:00 Test Item Value Reference Range Interpretation Comments UA pH (test code = UA >=9.0 *ABN*(12/20/15 6:17 5.0-8.0 pH) PM) [facility] [id number] 23:17:00 Test Item Value Reference Range Interpretation Comments UA Ketones (test code Negative *NA*(12/20/15 = UA Ketones) 6:17 PM) [facility] [id number] 23:17:00 Test Item Value Reference Range Interpretation Comments UA Protein (test code = Trace *ABN*(12/20/15 UA Protein) 6:17 PM) [facility] [id number] 23:17:00 Test Item Value Reference Range Interpretation Comments UA Bili (test code = Negative *NA*(12/20/15 UA Bili) 6:17 PM[facility] [id number] 23:17:00 Test Item Value Reference Range Interpretation Comments U Preg (test code = U Negative (12/20/15 6:17 Preg) PM) [facility] [id number] 23:17:00 Test Item Value Reference Range Interpretation Comments UA Bacteria (test code = UA Few /HPF Bacteria) [facility] [id number] 23:17:00 Test Item Value Reference Range Interpretation Comments UA RBC (test code = 0-2 /HPF See_Comment [Automa daphne message] The UA RBC) system which ge nerated this result tra nsmitted reference range : <=2. The reference range was not used to interpr et this result as fatuma l/abnormal. [facility] AND [id number] 23:17:00 Test Item Value Reference Range Interpretation Comments UA WBC (test code = UA WBC) 0-2 /HPF [facility] AND [id number] 23:17:00 Test Item Value Reference Range Interpretation Comments UA Sq Epi (test code = UA Sq Moderate /LPF Epi) [facility] AND [id number] 23:17:00 Test Item Value Reference Range Interpretation Comments UA Nitrite (test code Negative (12/20/15 6:17 = UA Nitrite) PM) [facility] AND [id number] 23:17:00 Test Item Value Reference Range Interpretation Comments UA Blood (test code = Negative (12/20/15 6:17 UA Blood) PM) [facility] AND [id number] 23:17:00 Test Item Value Reference Range Interpretation Comments UA Leuk Est (test Negative (12/20/15 6:17 code = UA Leuk Est) PM) [facility] AND [id number] 23:17:00 Test Item Value Reference Range Interpretation Comments UA Turbidity (test code = Clear (12/20/15 6:17 UA Turbidity) PM) [facility] AND [id number] 23:17:00 Test Item Value Reference Range Interpretation Comments UA Spec Grav (test code = UA Spec 1.015 1 Grav) [facility] AND [id number] 23:17:00 Test Item Value Reference Range Interpretation Comments UA Color (test code = Yellow *NA*(12/20/15 6:17 UA Color) PM) [facility] AND [id number] 23:17:00 Test Item Value Reference Range Interpretation Comments UA Urobilinogen (test code = UA 0.2 0.1-1.0 Urobilinogen) [facility] AND [id number] 23:17:00 Test Item Value Reference Range Interpretation Comments Micro? (test code = Performed (12/20/15 6:17 Micro?) PM) [facility] AND [id number] 23:17:00 Test Item Value Reference Range Interpretation Comments UA Glucose (test code Negative (12/20/15 6:17 = UA Glucose) PM) [facility] [id number] 23:17:00 Test Item Value Reference Range Interpretation Comments UA pH (test code = UA >=9.0 *ABN*(12/20/15 6:17 5.0-8.0 pH) PM) [facility] [id number] 23:17:00 Test Item Value Reference Range Interpretation Comments UA Ketones (test code Negative *NA*(12/20/15 = UA Ketones) 6:17 PM) [facility] [id number] 23:17:00 Test Item Value Reference Range Interpretation Comments UA Protein (test code = Trace *ABN*(12/20/15 UA Protein) 6:17 PM) [facility] [id number] 23:17:00 Test Item Value Reference Range Interpretation Comments UA Bili (test code = Negative *NA*(12/20/15 UA Bili) 6:17 PM) [facility] [id number] 23:17:00 Test Item Value Reference Range Interpretation Comments U Preg (test code = U Negative (12/20/15 6:17 Preg) PM) [facility] [id number] 23:17:00 Test Item Value Reference Range Interpretation Comments UA Bacteria (test code = UA Few /HPF Bacteria) [facility] AND [id number] 23:17:00 Test Item Value Reference Range Interpretation Comments UA RBC (test code = 0-2 /HPF See_Comment [Automa daphne message] The UA RBC) system which ge nerated this result tra nsmitted reference range : <=2. The reference range was not used to interpr et this result as fatuma l/abnormal. [facility] [id number] 23:17:00 Test Item Value Reference Range Interpretation Comments UA WBC (test code = UA WBC) 0-2 /HPF [facility] [id number] 23:17:00 Test Item Value Reference Range Interpretation Comments UA Sq Epi (test code = UA Sq Moderate /LPF Epi) [facility] [id number] 23:17:00 Test Item Value Reference Range Interpretation Comments UA Nitrite (test code Negative (12/20/15 6:17 = UA Nitrite) PM) [facility] [id number] 23:17:00 Test Item Value Reference Range Interpretation Comments UA Blood (test code = Negative (12/20/15 6:17 UA Blood) PM) [facility] AND [id number] 23:17:00 Test Item Value Reference Range Interpretation Comments UA Leuk Est (test Negative (12/20/15 6:17 code = UA Leuk Est) PM) [facility] AND [id number] 23:17:00 Test Item Value Reference Range Interpretation Comments UA Turbidity (test code = Clear (12/20/15 6:17 UA Turbidity) PM) [facility] AND [id number] 23:17:00 Test Item Value Reference Range Interpretation Comments UA Spec Grav (test code = UA Spec 1.015 1 Grav) [facility] AND [id number] 23:17:00 Test Item Value Reference Range Interpretation Comments UA Color (test code = Yellow *NA*(12/20/15 6:17 UA Color) PM) [facility] AND [id number] 23:17:00 Test Item Value Reference Range Interpretation Comments UA Urobilinogen (test code = UA 0.2 0.1-1.0 Urobilinogen) [facility] AND [id number] 23:17:00 Test Item Value Reference Range Interpretation Comments Micro? (test code = Performed (12/20/15 6:17 Micro?) PM) [facility] AND [id number] 23:17:00 Test Item Value Reference Range Interpretation Comments UA Glucose (test code Negative (12/20/15 6:17 = UA Glucose) PM) [facility] AND [id number] 23:17:00 Test Item Value Reference Range Interpretation Comments UA pH (test code = UA >=9.0 *ABN*(12/20/15 6:17 5.0-8.0 pH) PM) [facility] AND [id number] 23:17:00 Test Item Value Reference Range Interpretation Comments UA Ketones (test code Negative *NA*(12/20/15 = UA Ketones) 6:17 PM) [facility] AND [id number] 23:17:00 Test Item Value Reference Range Interpretation Comments UA Protein (test code = Trace *ABN*(12/20/15 UA Protein) 6:17 PM) [facility] AND [id number] 23:17:00 Test Item Value Reference Range Interpretation Comments UA Bili (test code = Negative *NA*(12/20/15 UA Bili) 6:17 PM) Ani ParsonJASMINE [id number] 23:17:00 Test Item Value Reference Range Interpretation Comments U Preg (test code = U Negative (12/20/15 6:17 Preg) PM) Ani Parson Notes Date/Time Note Provider Source 2023-01-13 Formatting of this note might be differe nt from the original. Valentino Meraz [facility] 07:25:39-00:00 Went in to dispo patient and patient became very confrontational. States, "How are you going to discharge me I am sick and bleeding from my butt and vomiting blood. You did nothing for me. This [facility] RN does nothing for me." Went over labs and dc instructions. Informed patient she could follow up with GI. 2023-01-13 Formatting of this note might be differe nt from the original. Vicenta Walter RN [facility] 02:48:01-00:00 Pt arrives ambulatory report ing feeling sick for around 5 days, when today she says that she had a BM that was hard and white and than states that she began having diarrhea so bad she was unable to get off the toilet for 3 and a h shannon hrs, she also reports vomiting while on the toilet. 2023-01-13 Formatting of this note is different from the or iginal. [facility] 02:39:00-00:00 [facility] Emergency Department Note Patient Name: Donny Velez Date of : 1990 32 year old female Treatment Room: Room/bed info not found Primary Care Physician: Kaya Sanderson Patient Escorted by: Self [9] Mode of Arrival: Personal means [1] EMS Treatment Prior to ED Arrival: Travel and Exposure Screening: Symptoms Does patient have any of these symptoms?: (not r ecorded) Exposure Screening Has patient had contact with someone with a communicable disease in the last month?: (not recorded) Diseases exposed to:: (not recorded) Is Patient ?: (not recorded) Exposure Date: (not recorded) Chief Complaint: Chief Complaint Patient presents with Diarrhea Vomiting History of Present Illness: The patient presents from [facility] for evaluation for diarrhea for the past several hours and appears of blood in it. She denies any sick contacts. No bad food exposure. No recent trips or travel. No medica tions for her symptoms. She was seen here several days ago for nausea and vomiting. She reports she has vomited once today. She also complains of abdominal pain. No fevers or chills. She is not lighthea ded or dizzy. She was also s een here on January 06 and had an abnormal CT of her abdomen and pelvis. She does have follow-up with PURCHASING CLERK for later on this month regarding the abnormal CT of her abdomen pelvis. Here for evaluation. Past Medical History/Immunizations: Past Medical History: Diagnosis Date Asthma GERD (gastroesophageal reflux disease) Peptic ulcer Tetanus received in last 5 years: Unknown Allergies: Allergies Allergen Reactions Ciprofloxacin Nausea and/or Vomiting Other reaction(s): GI Intolerance Nausea & Vomiting Past Social History: Tobacco Use Every Day; Types: Cigarettes Smokeless Tobacco: Never used smokeless tobacco . Past Surgical History: History reviewed. No pertinent surgical history. Review of Systems: Review of Systems Constitutional: Negative for chills and fever. Respiratory: Negative for cough and shortness of breath. Cardiovascular: Negative for chest pain. Gastrointestinal: Positive for abdominal pain, d iarrhea, nausea and vomiting. Genitourinary: Negative for dysuria. Musculoskeletal: Negative for arthralgias, neck pain and neck stiffness. Skin: Negative for wound. Neurological: Negative for dizziness. Psychiatric/Behavioral: Negative for agitation. Endocrine: Negative for goiter. Physical Exam: ED Triage Vitals [01/13/23 0245] Weight 86.2 kg (190 lb) Actual or estimated Estimated by patient/family report Height 1.651 m (5' 5") BP 127/80 Pulse 131 Resp 18 Temp 36.7 ?C (98 ?F) Temp source Oral SpO2 98 % Measured on Room air Physical Exam Vitals and nursing note reviewed. Constitutional: Appearance: Normal appearance. She is obese. HENT: Head: Normocephalic and atraumatic. Mouth/Throat: Mouth: Mucous membranes are dry. Cardiovascular: Rate and Rhythm: Regular rhythm. Tachycardia pr esent. Pulmonary: Effort: Pulmonary effort is normal. No respirat ory distress. Breath sounds: No stridor. No wheezing or rhonc hi. Abdominal: General: There is no distension. Palpations: Abdomen is soft. There is no mass. Tenderness: There is no abdominal tenderness. T here is no guarding. Hernia: No hernia is present. Musculoskeletal: General: Normal range of motion. Cervical back: Normal range of motion and neck supple. Skin: General: Skin is warm and dry. Neurological: General: No focal deficit present. Mental Status: She is alert and oriented to per son, place, and time. Radiology: CT ABDOMEN PELVIS W CONTRAST Preliminary Result EXAM: CT ABDOMEN PELVIS W CONTRAST 01/13/2023 5:15 AM HISTORY: 32 years-old Female with Abdominal pain , acute, nonlocalized . COMPARISON: CT abdomen pelvis 01/06/2023. TECHNIQUE: Contiguous axial imaging from the lev el of the lung bases through the pubic symphysis was performed after the administration of intravenous nonionic iodinated contrast. Abdomen was scanned in venous phase. Corresponding coronal and sagittal MPR re constructions were obtained. Auto mA and/or iterative reconstructio n were used to reduce radiation dose. FINDINGS: LOWER THORAX: The lungs bases are clear. No pleu ral or pericardial effusions are visualized. LIVER: The liver has normal parenchyma and conto ur. No focal hepatic lesion. The portal veins are patent. GALLBLADDER AND BILIARY TREE: The gallbladder is unremarkable. There is no intra or extrahepatic biliary ductal dilation. SPLEEN: The spleen enhances normally. A 1.6 cm s plenunculus is seen at the inferior margin of the spleen. PANCREAS: The pancreas enhances normally without ductal dilation. ADRENAL GLANDS: No adrenal nodules. KIDNEYS: The kidneys enhance normally. No nephro lithiasis or hydronephrosis is seen. Subcentimeter hypodensities of the infe rior pole of the left kidney, too small to characterize, likely cyst. GI TRACT: Hyperdensities within the colon likely represent foreign ingested material. No wall thickening or bowel dilatation . A normal appendix is identified (2:105). LYMPH NODES: No lymphadenopathy. PERITONEUM AND RETROPERITONEUM: No free air or f ree fluid. PELVIS/BLADDER: Mild mural thickening of the uri nary bladder.. Anteverted uterus. Again noted is a right adnexal cystic ma ss with internal septations measuring 7.5 x 6.6 x 4.3 cm, unchanged (2: 1:15 ). The left ovary is unremarkable. VESSELS: Unremarkable. BONES AND SOFT TISSUES: No suspicious lytic or s clerotic bony lesions. IMPRESSION 1. Mild mural thickening of the urinary bladder may be due to underdistention or cystitis. Correlation with ur inalysis is recommended. 2. Unchanged right ovarian cystic mass measuring 7.5 cm. A pelvic ultrasound is recommended for further evaluation on an outpatient basis. Preliminary Report Dictated by Resident: Arleen salcedo Lab Results: Lab Results CBC WITH DIFF - Abnormal Result Value Ref Range WBC 24.27 (*) 4.30 - 11.10 10*3/?L RBC 3.49 (*) 3.93 - 5.25 10*6/?L HGB 10.7 (*) 11.6 - 15.0 g/dL HCT 30.3 (*) 35.7 - 45.2 % MCV 86.8 80.6 - 95.5 fL MCH 30.7 25.9 - 32.8 pg MCHC 35.3 (*) 31.6 - 35.1 g/dL RDW-SD 44.4 39.0 - 49.9 fL RDW-CV 14.2 12.0 - 15.5 % PLT 439 (*) 166 - 358 10*3/?L MPV 9.9 9.5 - 12.9 fL NRBC/100 WBC 0.0 0.0 - 10.0 /100 WBCs NRBC x10^3 <0.01 10*3/?L GRAN MAT (NEUT) % 80.0 % IMM GRAN % 0.80 % LYMPH % 11.7 % MONO % 6.8 % EOS % 0.4 % BASO % 0.3 % GRAN MAT x10^3(ANC) 19.40 (*) 1.88 - 7.09 10*3/ uL IMM GRAN x10^3 0.19 (*) 0.00 - 0.06 10*3/uL LYMPH x10^3 2.85 1.32 - 3.29 10*3/uL MONO x10^3 1.66 (*) 0.33 - 0.92 10*3/uL EOS x10^3 0.10 0.03 - 0.39 10*3/uL BASO x10^3 0.07 0.01 - 0.07 10*3/uL COMP. METABOLIC PANEL (25234) - Abnormal NA 133 (*) 135 - 145 mmol/L K 3.6 3.5 - 5.0 mmol/L CL 97 (*) 98 - 108 mmol/L CO2 TOTAL 26 23 - 31 mmol/L AGAP 10 2 - 16 BUN 31 (*) 7 - 23 mg/dL GLUCOSE 152 (*) 70 - 110 mg/dL CREATININE 0.84 0.50 - 1.04 mg/dL TOTAL BILI 0.4 0.1 - 1.1 mg/dL CALCIUM 9.0 8.6 - 10.6 mg/dL T PROTEIN 7.4 6.3 - 8.2 g/dL ALBUMIN 4.2 3.5 - 5.0 g/dL ALK PHOS 77 34 - 122 U/L ALTv 23 5 - 35 U/L AST(SGOT) 24 13 - 40 U/L eGFR 78.1 mL/min/1.73m2 MAGNESIUM - Normal MAGNESIUM 2.0 1.7 - 2.4 mg/dL LIPASE - Normal LIPASE 82 0 - 220 U/L EKG: If EKG completed, see Procedure Note. Orders and Treatments: Orders Placed This Encounter Procedures CT ABDOMEN PELVIS W CONTRAST CBC WITH DIFF COMP. METABOLIC PANEL (61129) MAGNESIUM LIPASE Orders Placed This Encounter Medications NaCl 0.9% (NS) bolus infusion 1,000 mL famotidine (PEPCID (PF)) injection 20 mg proMETHazine (PHENERGAN) 12.5 mg in NaCl 0.9% ( NS) 50 mL IV piggyback metoclopramide HCl (REGLAN) injection 10 mg iopamidol (ISOVUE 370-500 mL) injection 70 mL ondansetron 4 mg disintegrating tablet First Provider Eval: ED Events Date/Time Event User Comments 01/13/23241 Medical Screening Begins NEHAL WALTER DO -- 01/13/23241 First Provider Evaluation NEHAL FUENTES DO -- No notes of EC Admission Criteria type on file. ED COURSE Diagnosis/Impression as of 01/13/23 0600 Diarrhea, unspecified type Leukocytosis, unspecified type Nausea Procedures: Procedures MDM: Medical Decision Making The patient presents from [facility] for evaluation for diarrhea for the past several hours. She reports there has been blood in her stool. She has had nausea and vomiting the past but admits to only vomiting once today. No sick contact s. No bad food exposure. No recent trips or travel or antibiotics. She was recently seen here on January 06 and has an abnormal CT of her abdomen and pelvis showing a right ovar steven cystic structure. She murguia s follow-up scheduled to see PURCHASING CLERK later on this month. The patient is tachycardic here in the ER. The patient is obese. Her abdomen is soft and nontender on examination . We will give the patient IV fluids with antiemetics for her nausea and vomiting. We will check laboratory studies. We will repeat the CT of her abdomen pelvis to eval for any possible changes since her CT scan on January 06. Final disposition pending. 0558 - the patient is doing well here in the EC. Her laboratory studies show a leukocytosis which she has consistently had for the last week or so. Her hgb has had a slight thao p from several days ago and is 10.7 today and previously was 14.7 on 01/06. CT a/p shows the right adnex al cystic structure and no other acute intraabdominal pathology. She has f/u with telephone technician for 01/18. She states her n/v has resolved and her diarrhea is much improved. She was given a po challenge here in the EC and able to tolerate by mouth without difficulty. She takes nexium daily. Advised to avoid NSAIDs. Zofran odt prn. BRAT diet. She remains stable here in the EC and is ok for dc home with pcp f/u. Problems Addressed: Diarrhea, unspecified type: acute illness or inj ury Leukocytosis, unspecified type: acute illness or injury Nausea: acute illness or injury Amount and/or Complexity of Data Reviewed Labs: ordered. Decision-making details documente d in ED Course. Radiology: ordered and indep endent interpretation performed. Decision-making details documented in ED Course. Risk OTC drugs. Prescription drug management. Flowsheet Documentation: Scoring Tools: No data recorded Disposition/Condition: ED Disposition ED Disposition Disch - Home Condition Stable Comment -- Discharge Medications: Current Discharge Medication List CONTINUE these medications which have CHANGED Details ondansetron 4 mg disintegrat ing tablet Take 1 tablet by mouth every 8 (eight) hours as needed for Nausea and Vomiting (N/V). Qty: 14 tablet, Refills: 0 Associated Diagnoses: Nausea and vomiting, unsp ecified vomiting type CONTINUE these medications which have NOT CHANGE D Details proMETHazine 12.5 mg supposi tory Insert 1 Suppository into rectum every 6 (six) hours as needed for Nausea and Vomiting (N/V). Qty: 14 Suppository, Refills: 0 Associated Diagnoses: Nausea and vomiting, unsp ecified vomiting type ALBUTEROL 90 mcg/actuation i nhaler INHALE TWO PUFFS BY MOUTH EVERY 6 HOURS NEEDED FOR WHEEZING OR SHORTNESS OF BREATH Qty: 18 g, Refills: 0 Associated Diagnoses: Mild persistent asthma wi th acute exacerbation FLUTICASONE PROPION-SALMETER OL 55-14 mcg/actuation AePB INHALE ONE PUFF BY MOUTH TWICE A DAY Qty: 1 Each, Refills: 0 Associated Diagnoses: Mild persistent asthma wi th acute exacerbation albuterol 2.5 mg /3 mL (0.08 3 %) nebulizer solution Inhale 3 mL every 6 (six) hours as needed for Wheezing or Shortness of Breath. May also nebulize one extra every 6 hours. Qty: 1 Box, Refills: 3 Associated Diagnoses: SOB ( shortness of breath); Acute bronchitis with wheezing cetirizine HCl (ZYRTEC ORAL) Take by mouth. esomeprazole magnesium (NEXIUM ORAL) Take by sue th. STOP taking these medications HYDROcodone-acetaminophen (NORCO) 10-325 mg tab let Comments: Reason for Stopping: Follow-up: Electronically signed by: Nehal Walter DO 01/13/23 0600 2023-01-11 Formatting of this note might be differe nt from the original. Stacy Ruano MA [facility] 17:25:15-00:00 Spoke with pt and was able to move apt sooner Stacy Ruano MA 01/11/2023 5:25 PM Electronically signed by Stacy Ruano MA a t 01/11/2023 5:25 PM CDT 2023-01-11 Formatting of this note might be differe nt from the original. Gregorio Simon [facility] 16:55:09-00:00 Pt calling to make an appoin tment but the next available appt is in February. She states she's in a lot of pain for her hemorrhagic cyst and needs a sooner appointment if some one from clinic please reach out to the pt Electronically signed by Gregorio Simon at 06/2022 4:57 PM CDT 2023-01-06 Formatting of this note might be differe nt from the original. Maddie Hillman RN [facility] 03:20:59-00:00 Pt given printed and verbal discharge instructions regarding abdominal pain, ovarian mass, hemorrhagic cyst, dehydrated Prescriptions provided Discussed ibuprofen and to take with food to abraham id GI distress. Pt verbalized understanding of instructions, pt awake alert oriented, resp reg unlabored, skin w/d, color appropriate for race, moves all ext well,pt encouraged to follow up with pcp Advised to seek medical attention for new/prolon ged/worsening of symptoms No adverse reaction to meds given in ER noted up on discharge PIV d'cd, dressing to site, catheter in tact. Awake, alert oriented, resp reg unlabored, skin w/d, pt leaving amb with steady gait, in no apparent distress, pt's girlfriend is driving her home. T 2023-01-06 Formatting of this note might be differe nt from the original. Marjan Rowe RN [facility] 01:13:21-00:00 Pt to ed via pov. Vss. Alert and ambulatory . C/o R upper quad pain for approx 1 day. Confirms n/v. Denies fevers. BM normal. Denies any difficulty with urination. Pepto taken gm video. Appendix still in tact Electronically signed by Marjan Rowe RN at 0 01/06/2023 1:14 AM T 2023-01-06 Formatting of this note is different from the or iginal. [facility] 01:06:00-00:00 [facility] Emergency Department Note Patient Name: Donny Velez Date of : 1990 32 year old female Treatment Room: TX1/TX1 Primary Care Physician: Kaya Sanderson Patient Escorted by: Self [9] Mode of Arrival: Personal means [1] EMS Treatment Prior to ED Arrival: CATERING SERVER treatment: None Travel and Exposure Screening: Symptoms Does patient have any of these symptoms?: (not r ecorded) Exposure Screening Has patient had contact with someone with a communicable disease in the last month?: (not recorded) Diseases exposed to:: (not recorded) Is Patient ?: (not recorded) Exposure Date: (not recorded) Chief Complaint: Chief Complaint Patient presents with Abdominal Pain R upper History of Present Illness: Donny Velez is a 32 ye ar old female who presents to the ED for evaluation of RLQ pain X 1 day. Pain is severe and is associated with N/V. No fever or chills. No known aggravating or relieving fact ors. Pt took Pepto Bismol wi thout relief. Denies any trauma. No urinary symptoms. No constipation or diarrhea. Pain began gradually and then intensified, and is non radiating and pt has never has simila r pain in the past. No pelvic pain. No vaginal b leeding or spotting Abdominal Pain Pain location: RLQ Pain quality: sharp Pain radiates to: Chest Pain severity: Severe Onset quality: Gradual Duration: 1 day Timing: Constant Progression: Worsening Chronicity: New Context: not alcohol use, no t awakening from sleep, not diet changes, not eating, not laxative use, not medication withdrawal, not previous surgeries, not recent illness, not recent travel, not retching , not sick contacts, not suspicious food intake and not trauma Relieved by: Nothing Worsened by: Nothing Ineffective treatments: OTC medications Associated symptoms: nausea and vomiting Associated symptoms: no anor exia, no belching, no chest pain, no chills, no constipation, no cough, no diarrhea, no dysuria, no fatigue, no fever, no flatus, no hematemesis, no hematochezia, no hematuri a, no melena, no shortness o f breath, no sore throat, no vaginal bleeding and no vaginal discharge Risk factors: has not had mu ltiple surgeries, no NSAID use, not obese, not and no recent hospitalization Past Medical History/Immunizations: Past Medical History: Diagnosis Date Asthma GERD (gastroesophageal reflux disease) Peptic ulcer Tetanus received in last 5 years: Unknown Childhood immunizations: Up-to-date Allergies: Allergies Allergen Reactions Ciprofloxacin Nausea and/or Vomiting Other reaction(s): GI Intolerance Nausea & Vomiting Past Social History: Tobacco Use Every Day; Types: Cigarettes Smokeless Tobacco: Never used smokeless tobacco . Past Surgical History: History reviewed. No pertinent surgical history. Review of Systems: Review of Systems Constitutional: Negative. Negative for chills, f atigue and fever. HENT: Negative. Negative for sore throat. Eyes: Negative. Respiratory: Negative. Negative for cough and sh ortness of breath. Breasts: Negative. Cardiovascular: Negative. Negative for chest art n. Gastrointestinal: Positive f or abdominal pain, nausea and vomiting. Negative for anorexia, constipation, diarrhea, flatus, hematemesis, hematochezia and melena. Genitourinary: Negative. Neg ative for dysuria, hematuria, vaginal bleeding and vaginal discharge. Musculoskeletal: Negative. Skin: Negative. Neurological: Negative. Psychiatric/Behavioral: Negative. All other systems reviewed and are negative. Endocrine: Endocrine negative Physical Exam: ED Triage Vitals [01/06/23 0111] Weight 88.5 kg (195 lb) Actual or estimated Actual Height 1.651 m (5' 5") BP (!) 132/102 Pulse 96 Resp 20 Temp 36.8 ?C (98.2 ?F) Temp source Oral SpO2 100 % Measured on Room air Physical Exam Vitals and nursing note reviewed. Constitutional: General: She is not in acute distress. Appearance: Normal appearan ce. She is well-developed and normal weight. She is not ill-appearing, toxic-appearing or diaphoretic. HENT: Head: Normocephalic and atraumatic. Right Ear: External ear normal. Left Ear: External ear normal. Nose: Nose normal. Mouth/Throat: Mouth: Mucous membranes are dry. Pharynx: Oropharynx is beth r. No oropharyngeal exudate or posterior oropharyngeal erythema. Eyes: General: No scleral icterus. Right eye: No discharge. Left eye: No discharge. Conjunctiva/sclera: Conjunctivae normal. Pupils: Pupils are equal, round, and reactive t o light. Neck: Thyroid: No thyromegaly. Cardiovascular: Rate and Rhythm: Normal rate and regular rhythm . Pulses: Normal pulses. Heart sounds: Normal heart sounds. No murmur he wali. Pulmonary: Effort: Pulmonary effort is normal. No respirat ory distress. Breath sounds: Normal breat h sounds. No stridor. No wheezing, rhonchi or rales. Chest: Chest wall: No tenderness. Abdominal: General: Bowel sounds are normal. There is no d istension. Palpations: Abdomen is soft. Tenderness: There is no abd ominal tenderness. There is no right CVA tenderness, guarding or rebound. Musculoskeletal: General: No swelling, tende rness, deformity or signs of injury. Normal range of motion. Cervical back: Normal range of motion and neck supple. No rigidity or tenderness. Right lower leg: No edema. Left lower leg: No edema. Lymphadenopathy: Cervical: No cervical adenopathy. Skin: General: Skin is warm and dry. Capillary Refill: Capillary refill takes less t ndiaye 2 seconds. Coloration: Skin is not jaundiced or pale. Findings: No bruising, erythema, lesion or rash . Neurological: General: No focal deficit present. Mental Status: She is alert and oriented to per son, place, and time. Cranial Nerves: No cranial nerve deficit. Sensory: No sensory deficit. Motor: No weakness or abnormal muscle tone. Coordination: Coordination normal. Gait: Gait normal. Deep Tendon Reflexes: Reflexes normal. Psychiatric: Behavior: Behavior normal. Thought Content: Thought content normal. Judgment: Judgment normal. Radiology: CT ABDOMEN PELVIS W CONTRAST Final Result ORDERING PHYSICIAN: AMY JEONG CLINICAL HISTORY: Right lower quadrant abdominal pain COMPARISON: None available. TECHNIQUE: Helical CT images of the abdomen and pelvis obtained with IV contrast. CT scan performed according to ALARA ( As low as reasonably achievable) principles. FINDINGS: Heart size is normal. Lower lungs are clear. The liver is mildly fatty infiltrated. The gallbladder, pancreas, spleen, adrenals, and kidneys are unremarkable. There is no hydronephrosis. The ut erus and the left adnexa are unremarkable. Bladder is unremarkable. There is a cystic mass in the right adnexa with internal septations, measuring 7.9 x 6.2 cm. This could reflect a hemorrhagic cyst. Ovarian cystic neopl asm is in the differential diagnosis. Pelvic ultrasound is recommended for further evaluation. There are no dilated loops of bowel or bowel wal l thickening. The appendix is normal. There is no free fluid. IMPRESSION There is a cystic mass in the right adnexa with internal septations, measuring 7.9 x 6.2 cm. This could reflect a hem orrhagic cyst. Ovarian cystic neoplasm is in the differential diagnosis . Pelvic ultrasound is recommended for further evaluation. No free fluid Normal appendix No dilated loops of bowel RL: [id number] Electronically signed by Angel Ontiveros MD at 12/12 2:47 AM Lab Results: Lab Results URINALYSIS - Abnormal Result Value Ref Range APPEARANCE Hazy (*) Clear COLOR Yellow Yellow PH 5.0 4.8 - 8.0 SP GRAVITY 1.023 1.003 - 1.030 GLU U QUAL Normal Normal BLOOD Negative Negative KETONES 80 mg/dL (*) Negative PROTEIN Negative Negative UROBILIN Normal Normal BILIRUBIN Negative Negative NITRITE Negative Negative LEUK DARWIN Negative Negative RBC/HPF 4 (*) 0 - 3 HPF WBC/HPF 8 (*) 0 - 5 HPF BACTERIA Negative Negative MUCOUS Slight (*) Negative LPF SQ EPITH 18 HPF CBC WITH DIFF - Abnormal WBC 19.00 (*) 4.30 - 11.10 10*3/?L RBC 5.25 3.93 - 5.25 10*6/?L HGB 15.6 (*) 11.6 - 15.0 g/dL HCT 45.2 35.7 - 45.2 % MCV 86.1 80.6 - 95.5 fL MCH 29.7 25.9 - 32.8 pg MCHC 34.5 31.6 - 35.1 g/dL RDW-SD 46.3 39.0 - 49.9 fL RDW-CV 14.6 12.0 - 15.5 % PLT 432 (*) 166 - 358 10*3/?L MPV 9.4 (*) 9.5 - 12.9 fL NRBC/100 WBC 0.0 0.0 - 10.0 /100 WBCs NRBC x10^3 <0.01 10*3/?L GRAN MAT (NEUT) % 79.2 % IMM GRAN % 0.30 % LYMPH % 13.0 % MONO % 5.4 % EOS % 1.6 % BASO % 0.5 % GRAN MAT x10^3(ANC) 15.05 (*) 1.88 - 7.09 10*3/ uL IMM GRAN x10^3 0.06 0.00 - 0.06 10*3/uL LYMPH x10^3 2.47 1.32 - 3.29 10*3/uL MONO x10^3 1.02 (*) 0.33 - 0.92 10*3/uL EOS x10^3 0.31 0.03 - 0.39 10*3/uL BASO x10^3 0.09 (*) 0.01 - 0.07 10*3/uL COMP. METABOLIC PANEL (28425) - Abnormal NA 137 135 - 145 mmol/L K 4.0 3.5 - 5.0 mmol/L CL 103 98 - 108 mmol/L CO2 TOTAL 24 23 - 31 mmol/L AGAP 10 2 - 16 BUN 15 7 - 23 mg/dL GLUCOSE 121 (*) 70 - 110 mg/dL CREATININE 0.59 0.50 - 1.04 mg/dL TOTAL BILI 0.8 0.1 - 1.1 mg/dL CALCIUM 9.7 8.6 - 10.6 mg/dL T PROTEIN 8.6 (*) 6.3 - 8.2 g/dL ALBUMIN 4.8 3.5 - 5.0 g/dL ALK PHOS 86 34 - 122 U/L ALTv 32 5 - 35 U/L AST(SGOT) 29 13 - 40 U/L eGFR 117.4 mL/min/1.73m2 POCT TEST - Normal POCT PREG Negative On board controls acceptable with C Line Yes LIPASE - Normal LIPASE 73 0 - 220 U/L Orders and Treatments: Orders Placed This Encounter Procedures CT ABDOMEN PELVIS W CONTRAST URINALYSIS POCT TEST CBC WITH DIFF COMP. METABOLIC PANEL (37045) LIPASE Orders Placed This Encounter Medications ketorolac (TORADOL) injection 30 mg ondansetron (ZOFRAN (PF)) injection 4 mg DISCONTD: ketorolac (TORADOL) injection 30 mg NaCl 0.9% (NS) IV infusion 1,000 mL DISCONTD: ondansetron (ZOFRAN (PF)) injection 4 mg iopamidol (ISOVUE 370-500 mL) injection 75 mL FENTanyl PF (SUBLIMAZE (PF)) injection 50 mcg ibuprofen 800 mg tablet HYDROcodone-acetaminophen (NORCO) 10-325 mg tab let ondansetron (ZOFRAN) 4 mg tablet First Provider Eval: ED Events Date/Time Event User Comments 01/06/23118 Medical Screening Begins AMY MCCAIN -- 01/06/23118 First Provider Evaluation AMY JEONG MD -- ED COURSE Diagnosis/Impression as of 01/06/23 0315 Abdominal pain, unspecified abdominal location Ovarian mass, right Hemorrhagic cyst of right ovary Dehydration Procedures: Procedures MDM: Medical Decision Making Donny Velez is a 32 ye ar old female who presents to the ED with right- sided lower abdominal pain X 1 day Problems Addressed: Abdominal pain, unspecified abdominal location: acute illness or injury Details: ED evaluation, Laboratory results and management as documented Dehydration: acute illness or injury Details: Encouraged pt to stay hydrated Hemorrhagic cyst of right ovary: acute illness o r injury Details: Will follow-up with OB-PACKING MACHINE OPERATOR VIRGILIO Ovarian mass, right: chronic illness or injury Details: Encouraged OB-PACKING MACHINE OPERATOR follow-up in AM for further evaluation to inclue a pelvic US Amount and/or Complexity of Data Reviewed Labs: ordered. Decision-making details documente d in ED Course. Radiology: ordered. Decision-making details docu mented in ED Course. Risk OTC drugs. Prescription drug management. Parenteral controlled substances. Flowsheet Documentation: Scoring Tools: No data recorded Disposition/Condition: ED Disposition ED Disposition Disch - Home Condition Stable Comment -- Discharge Medications: Patient's Medications START taking these medications HYDROCODONE-ACETAMINOPHEN ( NORCO) 10-325 MG TABLET Take 1 tablet by mouth every 6 (six) hours as needed for Pain (scale 7-10) for up to 7 days. Indications: acute pain IBUPROFEN 800 MG TABLET Ahsan e 1 tablet by mouth every 8 (eight) hours as needed for Alternate with [place] for pain scale 1-3. ONDANSETRON (ZOFRAN) 4 MG T ABLET Take 1 tablet by mouth every 8 (eight) hours as needed for Nausea and Vomiting (N/V). CONTINUE taking these medications which have NOT CHANGED ACETAMINOPHEN-CODEINE 300-3 0 MG TABLET Take 1 tablet by mouth every 6 (six) hours as needed for Pain (scale 7-10). Indications: acute pain ALBUTEROL 2.5 MG /3 ML (0.0 83 %) NEBULIZER SOLUTION Inhale 3 mL every 6 (six) hours as needed for Wheezing or Shortness of Breath. May also nebulize one extra every 6 hours. ALBUTEROL 90 MCG/ACTUATION INHALER INHALE TWO PUFFS BY MOUTH EVERY 6 HOURS NEEDED FOR WHEEZING OR SHORTNESS OF BREATH AZITHROMYCIN (ZITHROMAX Z-P AK) 250 MG TABLET Take 1 tablet by mouth daily. Take 500 mg day 1, then 250 mg days 2 to 5. AZITHROMYCIN (ZITHROMAX Z-P AK) 250 MG TABLET Z-Carissa = 500 mg day 1, then 250 mg days 2 to 5. AZITHROMYCIN 250 MG TABLET Take 1 tablet daily x 4 days. BENZONATATE 100 MG CAPSULE Take 1 capsule by mouth 3 (three) times daily as needed for Cough. CETIRIZINE HCL (ZYRTEC ORAL) Take by mouth. ESOMEPRAZOLE MAGNESIUM (NEXIUM ORAL) Take by mo [facility]. FLUTICASONE PROPION-SALMETE ROL 55-14 MCG/ACTUATION AEPB INHALE ONE PUFF BY MOUTH TWICE A DAY METHYLPREDNISOLONE (MEDROL, CARISSA,) 4 MG TABLETS Take by mouth SEE-INSTRUCTIONS. follow package directions START taking Modified Medications as Prescribed No medications on file STOP taking these medications No medications on file Follow-up: Contact information for follow-up Marlen Ramírez MD Specialty: OG-OBSTETRICS & GYNECOLOGY [facility] [address] [place] [address] [address]osto [facility] [address] Kaya Sanderson Specialty: WIND TURBINE ENGINEER-FAMILY [address] [place] [id number] Electronically signed by: Amy Jeong MD 01/06/23314 2021-12-04 EXAM: US PELVIS TRANSABDOMINAL [facility] 18:49:12-00:00 EXAM: US PELVIS TRANSVAGINAL WITH DOPPLER Center DATE: 12/04/2021 14:33 INDICATION: - RLQ pain, hx of large ovarian cyst ADDITIONAL INFORMATION: Right-sided pain for 3 d ays.. LMP: 11/18/2021; COMPARISON: Abdomen pelvis CT 12/21/2015. TECHNIQUE: Multiplanar jen al and color Doppler ultrasound of the pelvis were obtained transabdominally through a distended urinary bladder followed by transvaginal examination postvoid. FINDINGS: Uterus: Size: 7.6 x 3.5 x 4.2 cm Orientation: Anteverted. Myometrium: Mildly heterogeneous. Masses: None. Cervix: There are small nabothian cysts. Endometrium: 1.1 cm. Endometrial vascularity:Absent. Homogeneity:Normal. Focal lesions: None. IUD: None. Right ovary: Size: 8.0 x 6.7 x 6.1 cm Ovary/adnexa: 7.0 x 3.9 x 5. 1 cm complex cyst with vascular flow within the septations with low-level internal echoes within portions of it. Obscures the right ovary soft tissue. Left ovary: Seen transabdominally only. Size: 3.1 x 1.7 x 2.6 cm Cysts: None. Doppler: Normal. Free fluid: None. Other findings: None. IMPRESSION: 1. Complex right adnexal cys tic structure with vascular septations and low- level internal echoes. This may represent a complex ovarian cystic mass, versus a hydrosalpinx or pyosalpinx. Further evaluatio n with MRI with and without contrast and gynecologic consultation recommended. Critical finding of adnexal cystic mass to be included in the differential was communicated to and acknowledged by Dr. Collins via telephone at 12/05/2021 11:[address] Nathan. 2021-12-04 EXAM: US PELVIS TRANSABDOMINAL [facility] 18:49:12-00:00 EXAM: US PELVIS TRANSVAGINAL WITH DOPPLER Center DATE: 12/04/2021 14:33 INDICATION: - RLQ pain, hx of large ovarian cyst ADDITIONAL INFORMATION: Right-sided pain for 3 d ays.. LMP: 11/18/2021; COMPARISON: Abdomen pelvis CT 12/21/2015. TECHNIQUE: Multiplanar jen al and color Doppler ultrasound of the pelvis were obtained transabdominally through a distended urinary bladder followed by transvaginal examination postvoid. FINDINGS: Uterus: Size: 7.6 x 3.5 x 4.2 cm Orientation: Anteverted. Myometrium: Mildly heterogeneous. Masses: None. Cervix: There are small nabothian cysts. Endometrium: 1.1 cm. Endometrial vascularity:Absent. Homogeneity:Normal. Focal lesions: None. IUD: None. Right ovary: Size: 8.0 x 6.7 x 6.1 cm Ovary/adnexa: 7.0 x 3.9 x 5. 1 cm complex cyst with vascular flow within the septations with low-level internal echoes within portions of it. Obscures the right ovary soft tissue. Left ovary: Seen transabdominally only. Size: 3.1 x 1.7 x 2.6 cm Cysts: None. Doppler: Normal. Free fluid: None. Other findings: None. IMPRESSION: 1. Complex right adnexal cys tic structure with vascular septations and low- level internal echoes. This may represent a complex ovarian cystic mass, versus a hydrosalpinx or pyosalpinx. Further evaluatio n with MRI with and without contrast and gynecologic consultation recommended. Critical finding of adnexal cystic mass to be included in the differential was communicated to and acknowledged by Dr. Collins via telephone at 12/05/2021 11:[address] Nathan. 2021-12-04 EXAM: US PELVIS TRANSABDOMINAL [facility] 18:49:12-00:00 EXAM: US PELVIS TRANSVAGINAL WITH DOPPLER Center DATE: 12/04/2021 14:33 INDICATION: - RLQ pain, hx of large ovarian cyst ADDITIONAL INFORMATION: Right-sided pain for 3 d ays.. LMP: 11/18/2021; COMPARISON: Abdomen pelvis CT 12/21/2015. TECHNIQUE: Multiplanar jen al and color Doppler ultrasound of the pelvis were obtained transabdominally through a distended urinary bladder followed by transvaginal examination postvoid. FINDINGS: Uterus: Size: 7.6 x 3.5 x 4.2 cm Orientation: Anteverted. Myometrium: Mildly heterogeneous. Masses: None. Cervix: There are small nabothian cysts. Endometrium: 1.1 cm. Endometrial vascularity:Absent. Homogeneity:Normal. Focal lesions: None. IUD: None. Right ovary: Size: 8.0 x 6.7 x 6.1 cm Ovary/adnexa: 7.0 x 3.9 x 5. 1 cm complex cyst with vascular flow within the septations with low-level internal echoes within portions of it. Obscures the right ovary soft tissue. Left ovary: Seen transabdominally only. Size: 3.1 x 1.7 x 2.6 cm Cysts: None. Doppler: Normal. Free fluid: None. Other findings: None. IMPRESSION: 1. Complex right adnexal cys tic structure with vascular septations and low- level internal echoes. This may represent a complex ovarian cystic mass, versus a hydrosalpinx or pyosalpinx. Further evaluatio n with MRI with and without contrast and gynecologic consultation recommended. Critical finding of adnexal cystic mass to be included in the differential was communicated to and acknowledged by Dr. Collins via telephone at 12/05/2021 11:[address] Nathan. 2021-12-04 EXAM: US PELVIS TRANSABDOMINAL [facility] 18:49:12-00:00 EXAM: US PELVIS TRANSVAGINAL WITH DOPPLER Center DATE: 12/04/2021 14:33 INDICATION: - RLQ pain, hx of large ovarian cyst ADDITIONAL INFORMATION: Right-sided pain for 3 d ays.. LMP: 11/18/2021; COMPARISON: Abdomen pelvis CT 12/21/2015. TECHNIQUE: Multiplanar jen al and color Doppler ultrasound of the pelvis were obtained transabdominally through a distended urinary bladder followed by transvaginal examination postvoid. FINDINGS: Uterus: Size: 7.6 x 3.5 x 4.2 cm Orientation: Anteverted. Myometrium: Mildly heterogeneous. Masses: None. Cervix: There are small nabothian cysts. Endometrium: 1.1 cm. Endometrial vascularity:Absent. Homogeneity:Normal. Focal lesions: None. IUD: None. Right ovary: Size: 8.0 x 6.7 x 6.1 cm Ovary/adnexa: 7.0 x 3.9 x 5. 1 cm complex cyst with vascular flow within the septations with low-level internal echoes within portions of it. Obscures the right ovary soft tissue. Left ovary: Seen transabdominally only. Size: 3.1 x 1.7 x 2.6 cm Cysts: None. Doppler: Normal. Free fluid: None. Other findings: None. IMPRESSION: 1. Complex right adnexal cys tic structure with vascular septations and low- level internal echoes. This may represent a complex ovarian cystic mass, versus a hydrosalpinx or pyosalpinx. Further evaluatio n with MRI with and without contrast and gynecologic consultation recommended. Critical finding of adnexal cystic mass to be included in the differential was communicated to and acknowledged by Dr. Collins via telephone at 12/05/2021 11:[address] Nathan. 2021-12-04 EXAM: US PELVIS TRANSABDOMINAL [facility] 18:49:12-00:00 EXAM: US PELVIS TRANSVAGINAL WITH DOPPLER Center DATE: 12/04/2021 14:33 INDICATION: - RLQ pain, hx of large ovarian cyst ADDITIONAL INFORMATION: Right-sided pain for 3 d ays.. LMP: 11/18/2021; COMPARISON: Abdomen pelvis CT 12/21/2015. TECHNIQUE: Multiplanar jen al and color Doppler ultrasound of the pelvis were obtained transabdominally through a distended urinary bladder followed by transvaginal examination postvoid. FINDINGS: Uterus: Size: 7.6 x 3.5 x 4.2 cm Orientation: Anteverted. Myometrium: Mildly heterogeneous. Masses: None. Cervix: There are small nabothian cysts. Endometrium: 1.1 cm. Endometrial vascularity:Absent. Homogeneity:Normal. Focal lesions: None. IUD: None. Right ovary: Size: 8.0 x 6.7 x 6.1 cm Ovary/adnexa: 7.0 x 3.9 x 5. 1 cm complex cyst with vascular flow within the septations with low-level internal echoes within portions of it. Obscures the right ovary soft tissue. Left ovary: Seen transabdominally only. Size: 3.1 x 1.7 x 2.6 cm Cysts: None. Doppler: Normal. Free fluid: None. Other findings: None. IMPRESSION: 1. Complex right adnexal cys tic structure with vascular septations and low- level internal echoes. This may represent a complex ovarian cystic mass, versus a hydrosalpinx or pyosalpinx. Further evaluatio n with MRI with and without contrast and gynecologic consultation recommended. Critical finding of adnexal cystic mass to be included in the differential was communicated to and acknowledged by Dr. Collins via telephone at 12/05/2021 11:[address] Nathan. 2021-12-04 EXAM: US PELVIS TRANSABDOMINAL [facility] 18:49:12-00:00 EXAM: US PELVIS TRANSVAGINAL WITH DOPPLER Center DATE: 12/04/2021 14:33 INDICATION: - RLQ pain, hx of large ovarian cyst ADDITIONAL INFORMATION: Right-sided pain for 3 d ays.. LMP: 11/18/2021; COMPARISON: Abdomen pelvis CT 12/21/2015. TECHNIQUE: Multiplanar jen al and color Doppler ultrasound of the pelvis were obtained transabdominally through a distended urinary bladder followed by transvaginal examination postvoid. FINDINGS: Uterus: Size: 7.6 x 3.5 x 4.2 cm Orientation: Anteverted. Myometrium: Mildly heterogeneous. Masses: None. Cervix: There are small nabothian cysts. Endometrium: 1.1 cm. Endometrial vascularity:Absent. Homogeneity:Normal. Focal lesions: None. IUD: None. Right ovary: Size: 8.0 x 6.7 x 6.1 cm Ovary/adnexa: 7.0 x 3.9 x 5. 1 cm complex cyst with vascular flow within the septations with low-level internal echoes within portions of it. Obscures the right ovary soft tissue. Left ovary: Seen transabdominally only. Size: 3.1 x 1.7 x 2.6 cm Cysts: None. Doppler: Normal. Free fluid: None. Other findings: None. IMPRESSION: 1. Complex right adnexal cys tic structure with vascular septations and low- level internal echoes. This may represent a complex ovarian cystic mass, versus a hydrosalpinx or pyosalpinx. Further evaluatio n with MRI with and without contrast and gynecologic consultation recommended. Critical finding of adnexal cystic mass to be included in the differential was communicated to and acknowledged by Dr. Collins via telephone at 12/05/2021 11:[address] Nathan. 2021-12-04 EXAM: US PELVIS TRANSABDOMINAL [facility] 18:49:12-00:00 EXAM: US PELVIS TRANSVAGINAL WITH DOPPLER Center DATE: 12/04/2021 14:33 INDICATION: - RLQ pain, hx of large ovarian cyst ADDITIONAL INFORMATION: Right-sided pain for 3 d ays.. LMP: 11/18/2021; COMPARISON: Abdomen pelvis CT 12/21/2015. TECHNIQUE: Multiplanar jen al and color Doppler ultrasound of the pelvis were obtained transabdominally through a distended urinary bladder followed by transvaginal examination postvoid. FINDINGS: Uterus: Size: 7.6 x 3.5 x 4.2 cm Orientation: Anteverted. Myometrium: Mildly heterogeneous. Masses: None. Cervix: There are small nabothian cysts. Endometrium: 1.1 cm. Endometrial vascularity:Absent. Homogeneity:Normal. Focal lesions: None. IUD: None. Right ovary: Size: 8.0 x 6.7 x 6.1 cm Ovary/adnexa: 7.0 x 3.9 x 5. 1 cm complex cyst with vascular flow within the septations with low-level internal echoes within portions of it. Obscures the right ovary soft tissue. Left ovary: Seen transabdominally only. Size: 3.1 x 1.7 x 2.6 cm Cysts: None. Doppler: Normal. Free fluid: None. Other findings: None. IMPRESSION: 1. Complex right adnexal cys tic structure with vascular septations and low- level internal echoes. This may represent a complex ovarian cystic mass, versus a hydrosalpinx or pyosalpinx. Further evaluatio n with MRI with and without contrast and gynecologic consultation recommended. Critical finding of adnexal cystic mass to be included in the differential was communicated to and acknowledged by Dr. Collins via telephone at 12/05/2021 11:[address] Nathan. 2021-12-04 EXAM: US PELVIS TRANSABDOMINAL [facility] 18:49:12-00:00 EXAM: US PELVIS TRANSVAGINAL WITH DOPPLER Center DATE: 12/04/2021 14:33 INDICATION: - RLQ pain, hx of large ovarian cyst ADDITIONAL INFORMATION: Right-sided pain for 3 d ays.. LMP: 11/18/2021; COMPARISON: Abdomen pelvis CT 12/21/2015. TECHNIQUE: Multiplanar jen al and color Doppler ultrasound of the pelvis were obtained transabdominally through a distended urinary bladder followed by transvaginal examination postvoid. FINDINGS: Uterus: Size: 7.6 x 3.5 x 4.2 cm Orientation: Anteverted. Myometrium: Mildly heterogeneous. Masses: None. Cervix: There are small nabothian cysts. Endometrium: 1.1 cm. Endometrial vascularity:Absent. Homogeneity:Normal. Focal lesions: None. IUD: None. Right ovary: Size: 8.0 x 6.7 x 6.1 cm Ovary/adnexa: 7.0 x 3.9 x 5. 1 cm complex cyst with vascular flow within the septations with low-level internal echoes within portions of it. Obscures the right ovary soft tissue. Left ovary: Seen transabdominally only. Size: 3.1 x 1.7 x 2.6 cm Cysts: None. Doppler: Normal. Free fluid: None. Other findings: None. IMPRESSION: 1. Complex right adnexal cys tic structure with vascular septations and low- level internal echoes. This may represent a complex ovarian cystic mass, versus a hydrosalpinx or pyosalpinx. Further evaluatio n with MRI with and without contrast and gynecologic consultation recommended. Critical finding of adnexal cystic mass to be included in the differential was communicated to and acknowledged by Dr. Collins via telephone at 12/05/2021 11:[address] Nathan. 2021-12-04 EXAM: US PELVIS TRANSABDOMINAL [facility] 18:49:12-00:00 EXAM: US PELVIS TRANSVAGINAL WITH DOPPLER Center DATE: 12/04/2021 14:33 INDICATION: - RLQ pain, hx of large ovarian cyst ADDITIONAL INFORMATION: Right-sided pain for 3 d ays.. LMP: 11/18/2021; COMPARISON: Abdomen pelvis CT 12/21/2015. TECHNIQUE: Multiplanar jen al and color Doppler ultrasound of the pelvis were obtained transabdominally through a distended urinary bladder followed by transvaginal examination postvoid. FINDINGS: Uterus: Size: 7.6 x 3.5 x 4.2 cm Orientation: Anteverted. Myometrium: Mildly heterogeneous. Masses: None. Cervix: There are small nabothian cysts. Endometrium: 1.1 cm. Endometrial vascularity:Absent. Homogeneity:Normal. Focal lesions: None. IUD: None. Right ovary: Size: 8.0 x 6.7 x 6.1 cm Ovary/adnexa: 7.0 x 3.9 x 5. 1 cm complex cyst with vascular flow within the septations with low-level internal echoes within portions of it. Obscures the right ovary soft tissue. Left ovary: Seen transabdominally only. Size: 3.1 x 1.7 x 2.6 cm Cysts: None. Doppler: Normal. Free fluid: None. Other findings: None. IMPRESSION: 1. Complex right adnexal cys tic structure with vascular septations and low- level internal echoes. This may represent a complex ovarian cystic mass, versus a hydrosalpinx or pyosalpinx. Further evaluatio n with MRI with and without contrast and gynecologic consultation recommended. Critical finding of adnexal cystic mass to be included in the differential was communicated to and acknowledged by Dr. Collins via telephone at 12/05/2021 11:[address] Nathan. 2021-12-04 EXAM: US PELVIS TRANSABDOMINAL [facility] 18:49:12-00:00 EXAM: US PELVIS TRANSVAGINAL WITH DOPPLER Center DATE: 12/04/2021 14:33 INDICATION: - RLQ pain, hx of large ovarian cyst ADDITIONAL INFORMATION: Right-sided pain for 3 d ays.. LMP: 11/18/2021; COMPARISON: Abdomen pelvis CT 12/21/2015. TECHNIQUE: Multiplanar jen al and color Doppler ultrasound of the pelvis were obtained transabdominally through a distended urinary bladder followed by transvaginal examination postvoid. FINDINGS: Uterus: Size: 7.6 x 3.5 x 4.2 cm Orientation: Anteverted. Myometrium: Mildly heterogeneous. Masses: None. Cervix: There are small nabothian cysts. Endometrium: 1.1 cm. Endometrial vascularity:Absent. Homogeneity:Normal. Focal lesions: None. IUD: None. Right ovary: Size: 8.0 x 6.7 x 6.1 cm Ovary/adnexa: 7.0 x 3.9 x 5. 1 cm complex cyst with vascular flow within the septations with low-level internal echoes within portions of it. Obscures the right ovary soft tissue. Left ovary: Seen transabdominally only. Size: 3.1 x 1.7 x 2.6 cm Cysts: None. Doppler: Normal. Free fluid: None. Other findings: None. IMPRESSION: 1. Complex right adnexal cys tic structure with vascular septations and low- level internal echoes. This may represent a complex ovarian cystic mass, versus a hydrosalpinx or pyosalpinx. Further evaluatio n with MRI with and without contrast and gynecologic consultation recommended. Critical finding of adnexal cystic mass to be included in the differential was communicated to and acknowledged by Dr. Collins via telephone at 12/05/2021 11:[address] Nathan. 2021-12-04 EXAM: US PELVIS TRANSABDOMINAL [facility] 18:49:12-00:00 EXAM: US PELVIS TRANSVAGINAL WITH DOPPLER Center DATE: 12/04/2021 14:33 INDICATION: - RLQ pain, hx of large ovarian cyst ADDITIONAL INFORMATION: Right-sided pain for 3 d ays.. LMP: 11/18/2021; COMPARISON: Abdomen pelvis CT 12/21/2015. TECHNIQUE: Multiplanar jen al and color Doppler ultrasound of the pelvis were obtained transabdominally through a distended urinary bladder followed by transvaginal examination postvoid. FINDINGS: Uterus: Size: 7.6 x 3.5 x 4.2 cm Orientation: Anteverted. Myometrium: Mildly heterogeneous. Masses: None. Cervix: There are small nabothian cysts. Endometrium: 1.1 cm. Endometrial vascularity:Absent. Homogeneity:Normal. Focal lesions: None. IUD: None. Right ovary: Size: 8.0 x 6.7 x 6.1 cm Ovary/adnexa: 7.0 x 3.9 x 5. 1 cm complex cyst with vascular flow within the septations with low-level internal echoes within portions of it. Obscures the right ovary soft tissue. Left ovary: Seen transabdominally only. Size: 3.1 x 1.7 x 2.6 cm Cysts: None. Doppler: Normal. Free fluid: None. Other findings: None. IMPRESSION: 1. Complex right adnexal cys tic structure with vascular septations and low- level internal echoes. This may represent a complex ovarian cystic mass, versus a hydrosalpinx or pyosalpinx. Further evaluatio n with MRI with and without contrast and gynecologic consultation recommended. Critical finding of adnexal cystic mass to be included in the differential was communicated to and acknowledged by Dr. Collins via telephone at 12/05/2021 11:[address] Nathan. 2021-12-04 EXAM: US PELVIS TRANSABDOMINAL [facility] 18:49:12-00:00 EXAM: US PELVIS TRANSVAGINAL WITH DOPPLER Center DATE: 12/04/2021 14:33 INDICATION: - RLQ pain, hx of large ovarian cyst ADDITIONAL INFORMATION: Right-sided pain for 3 d ays.. LMP: 11/18/2021; COMPARISON: Abdomen pelvis CT 12/21/2015. TECHNIQUE: Multiplanar jen al and color Doppler ultrasound of the pelvis were obtained transabdominally through a distended urinary bladder followed by transvaginal examination postvoid. FINDINGS: Uterus: Size: 7.6 x 3.5 x 4.2 cm Orientation: Anteverted. Myometrium: Mildly heterogeneous. Masses: None. Cervix: There are small nabothian cysts. Endometrium: 1.1 cm. Endometrial vascularity:Absent. Homogeneity:Normal. Focal lesions: None. IUD: None. Right ovary: Size: 8.0 x 6.7 x 6.1 cm Ovary/adnexa: 7.0 x 3.9 x 5. 1 cm complex cyst with vascular flow within the septations with low-level internal echoes within portions of it. Obscures the right ovary soft tissue. Left ovary: Seen transabdominally only. Size: 3.1 x 1.7 x 2.6 cm Cysts: None. Doppler: Normal. Free fluid: None. Other findings: None. IMPRESSION: 1. Complex right adnexal cys tic structure with vascular septations and low- level internal echoes. This may represent a complex ovarian cystic mass, versus a hydrosalpinx or pyosalpinx. Further evaluatio n with MRI with and without contrast and gynecologic consultation recommended. Critical finding of adnexal cystic mass to be included in the differential was communicated to and acknowledged by Dr. Collins via telephone at 12/05/2021 11:[address] Nathan. 2021-12-04 EXAM: US PELVIS TRANSABDOMINAL [facility] 18:49:12-00:00 EXAM: US PELVIS TRANSVAGINAL WITH DOPPLER Center DATE: 12/04/2021 14:33 INDICATION: - RLQ pain, hx of large ovarian cyst ADDITIONAL INFORMATION: Right-sided pain for 3 d ays.. LMP: 11/18/2021; COMPARISON: Abdomen pelvis CT 12/21/2015. TECHNIQUE: Multiplanar jen al and color Doppler ultrasound of the pelvis were obtained transabdominally through a distended urinary bladder followed by transvaginal examination postvoid. FINDINGS: Uterus: Size: 7.6 x 3.5 x 4.2 cm Orientation: Anteverted. Myometrium: Mildly heterogeneous. Masses: None. Cervix: There are small nabothian cysts. Endometrium: 1.1 cm. Endometrial vascularity:Absent. Homogeneity:Normal. Focal lesions: None. IUD: None. Right ovary: Size: 8.0 x 6.7 x 6.1 cm Ovary/adnexa: 7.0 x 3.9 x 5. 1 cm complex cyst with vascular flow within the septations with low-level internal echoes within portions of it. Obscures the right ovary soft tissue. Left ovary: Seen transabdominally only. Size: 3.1 x 1.7 x 2.6 cm Cysts: None. Doppler: Normal. Free fluid: None. Other findings: None. IMPRESSION: 1. Complex right adnexal cys tic structure with vascular septations and low- level internal echoes. This may represent a complex ovarian cystic mass, versus a hydrosalpinx or pyosalpinx. Further evaluatio n with MRI with and without contrast and gynecologic consultation recommended. Critical finding of adnexal cystic mass to be included in the differential was communicated to and acknowledged by Dr. Collins via telephone at 12/05/2021 11:[address] Nathan. 2021-12-04 EXAM: US PELVIS TRANSABDOMINAL [facility] 18:49:12-00:00 EXAM: US PELVIS TRANSVAGINAL WITH DOPPLER Center DATE: 12/04/2021 14:33 INDICATION: - RLQ pain, hx of large ovarian cyst ADDITIONAL INFORMATION: Right-sided pain for 3 d ays.. LMP: 11/18/2021; COMPARISON: Abdomen pelvis CT 12/21/2015. TECHNIQUE: Multiplanar jen al and color Doppler ultrasound of the pelvis were obtained transabdominally through a distended urinary bladder followed by transvaginal examination postvoid. FINDINGS: Uterus: Size: 7.6 x 3.5 x 4.2 cm Orientation: Anteverted. Myometrium: Mildly heterogeneous. Masses: None. Cervix: There are small nabothian cysts. Endometrium: 1.1 cm. Endometrial vascularity:Absent. Homogeneity:Normal. Focal lesions: None. IUD: None. Right ovary: Size: 8.0 x 6.7 x 6.1 cm Ovary/adnexa: 7.0 x 3.9 x 5. 1 cm complex cyst with vascular flow within the septations with low-level internal echoes within portions of it. Obscures the right ovary soft tissue. Left ovary: Seen transabdominally only. Size: 3.1 x 1.7 x 2.6 cm Cysts: None. Doppler: Normal. Free fluid: None. Other findings: None. IMPRESSION: 1. Complex right adnexal cys tic structure with vascular septations and low- level internal echoes. This may represent a complex ovarian cystic mass, versus a hydrosalpinx or pyosalpinx. Further evaluatio n with MRI with and without contrast and gynecologic consultation recommended. Critical finding of adnexal cystic mass to be included in the differential was communicated to and acknowledged by Dr. Collins via telephone at 12/05/2021 11:[address] Nathan. 2016-04-08 Clinical Indication: Worseni ng right upper quadrant pain, had EGD this morning; [facility] 12:16:22-: Comparison: None FINDINGS: The single view of [...] acute radiographic abnormalities of the ab domen. : [id number] 2016-04-08 Clinical Indication: Worseni ng right upper quadrant pain, had EGD this morning; [facility] 12:16:-: Comparison: None FINDINGS: The single view of [...] acute radiographic abnormalities of the ab domen. : [id number] 2016-04-08 Clinical Indication: Worseni ng right upper quadrant pain, had EGD this morning; [facility] 12:16:22-:00 Comparison: None FINDINGS: The single view of [...] acute radiographic abnormalities of the ab domen. : [id number] 2016-04-08 Clinical Indication: Worseni ng right upper quadrant pain, had EGD this morning; [facility] 12:16:22-00:00 Comparison: None FINDINGS: The single view of [...] acute radiographic abnormalities of the ab domen. : [id number] 2016-04-08 Clinical Indication: Worseni ng right upper quadrant pain, had EGD this morning; [facility] 12:16:22-00:00 Comparison: None FINDINGS: The single view of [...] acute radiographic abnormalities of the ab domen. : [id number] 2016-04-08 Clinical Indication: Worseni ng right upper quadrant pain, had EGD this morning; [facility] 12:16:22-00:00 Comparison: None FINDINGS: The single view of [...] acute radiographic abnormalities of the ab domen. : [id number] 2016-04-08 Clinical Indication: Worseni ng right upper quadrant pain, had EGD this morning; [facility] 12:16:22-00:00 Comparison: None FINDINGS: The single view of [...] acute radiographic abnormalities of the ab domen. : [id number] 2016-04-08 Clinical Indication: Worseni ng right upper quadrant pain, had EGD this morning; [facility] 12:16:22-00:00 Comparison: None FINDINGS: The single view of [...] acute radiographic abnormalities of the ab domen. : [id number] 2016-04-08 Clinical Indication: Worseni ng right upper quadrant pain, had EGD this morning; [facility] 12:16:22-00:00 Comparison: None FINDINGS: The single view of [...] radiographic abnormalities of the ab domen. SL: [id number] 2016-04-08 Clinical Indication: Worseni ng right upper quadrant pain, had EGD this morning; [facility] 12:16:22-00:00 Comparison: None FINDINGS: The single view of [...] radiographic abnormalities of the ab domen. SL: [id number] 2016-04-08 Clinical Indication: Worseni ng right upper quadrant pain, had EGD this morning; [facility] 12:16:22-00:00 Comparison: None FINDINGS: The single view of [...] radiographic abnormalities of the ab domen. SL: [id number] 2016-04-08 Clinical Indication: Worseni ng right upper quadrant pain, had EGD this morning; [facility] 12:16:22-00:00 Comparison: None FINDINGS: The single view of [...] acute radiographic abnormalities of the ab domen. : [id number] 2016-04-08 Clinical Indication: Worseni ng right upper quadrant pain, had EGD this morning; [facility] 12:16:22-00:00 Comparison: None FINDINGS: The single view of [...] acute radiographic abnormalities of the ab domen. : [id number] 2016-04-08 Clinical Indication: Worseni ng right upper quadrant pain, had EGD this morning; [facility] 12:16:22-00:00 Comparison: None FINDINGS: The single view of [...] acute radiographic abnormalities of the ab domen. : [id number] 2015-12-23 HEPATOBILIARY SCAN: [facility] 09:08:00-00:00 HISTORY: Acute right upper q uadrant pain, no evidence of gallstones by ultrasound.. PROCEDURE: 6.4 mCi of techne tium 99m Choletec were given intravenously followed by anterior imaging over the upper abdomen. FINDINGS: There is prompt up take and excretion of activity by the liver with prompt visualization of the biliary tree, gallbladder and small bowel. IMPRESSION: Normal hepatobiliary scan. [id number] 2015-12-23 HEPATOBILIARY SCAN: [facility] 09:08:00-00:00 HISTORY: Acute right upper q uadrant pain, no evidence of gallstones by ultrasound.. PROCEDURE: 6.4 mCi of techne tium 99m Choletec were given intravenously followed by anterior imaging over the upper abdomen. FINDINGS: There is prompt up take and excretion of activity by the liver with prompt visualization of the biliary tree, gallbladder and small bowel. IMPRESSION: Normal hepatobiliary scan. [id number] 2015-12-23 HEPATOBILIARY SCAN: [facility] 09:08:00-00:00 HISTORY: Acute right upper q uadrant pain, no evidence of gallstones by ultrasound.. PROCEDURE: 6.4 mCi of techne tium 99m Choletec were given intravenously followed by anterior imaging over the upper abdomen. FINDINGS: There is prompt up take and excretion of activity by the liver with prompt visualization of the biliary tree, gallbladder and small bowel. IMPRESSION: Normal hepatobiliary scan. [id number] 2015-12-23 HEPATOBILIARY SCAN: [facility] 09:08:00-00:00 HISTORY: Acute right upper q uadrant pain, no evidence of gallstones by ultrasound.. PROCEDURE: 6.4 mCi of techne tium 99m Choletec were given intravenously followed by anterior imaging over the upper abdomen. FINDINGS: There is prompt up take and excretion of activity by the liver with prompt visualization of the biliary tree, gallbladder and small bowel. IMPRESSION: Normal hepatobiliary scan. [id number] 2015-12-23 HEPATOBILIARY SCAN: [facility] 09:08:00-00:00 HISTORY: Acute right upper q uadrant pain, no evidence of gallstones by ultrasound.. PROCEDURE: 6.4 mCi of techne tium 99m Choletec were given intravenously followed by anterior imaging over the upper abdomen. FINDINGS: There is prompt up take and excretion of activity by the liver with prompt visualization of the biliary tree, gallbladder and small bowel. IMPRESSION: Normal hepatobiliary scan. [id number] 2015-12-23 HEPATOBILIARY SCAN: [facility] 09:08:00-00:00 HISTORY: Acute right upper q uadrant pain, no evidence of gallstones by ultrasound.. PROCEDURE: 6.4 mCi of techne tium 99m Choletec were given intravenously followed by anterior imaging over the upper abdomen. FINDINGS: There is prompt up take and excretion of activity by the liver with prompt visualization of the biliary tree, gallbladder and small bowel. IMPRESSION: Normal hepatobiliary scan. [id number] 2015-12-23 HEPATOBILIARY SCAN: [facility] 09:08:00-00:00 HISTORY: Acute right upper q uadrant pain, no evidence of gallstones by ultrasound.. PROCEDURE: 6.4 mCi of techne tium 99m Choletec were given intravenously followed by anterior imaging over the upper abdomen. FINDINGS: There is prompt up take and excretion of activity by the liver with prompt visualization of the biliary tree, gallbladder and small bowel. IMPRESSION: Normal hepatobiliary scan. [id number] 2015-12-23 HEPATOBILIARY SCAN: [facility] 09:08:00-00:00 HISTORY: Acute right upper q uadrant pain, no evidence of gallstones by ultrasound.. PROCEDURE: 6.4 mCi of techne tium 99m Choletec were given intravenously followed by anterior imaging over the upper abdomen. FINDINGS: There is prompt up take and excretion of activity by the liver with prompt visualization of the biliary tree, gallbladder and small bowel. IMPRESSION: Normal hepatobiliary scan. [id number] 2015-12-23 HEPATOBILIARY SCAN: [facility] 09:08:00-00:00 HISTORY: Acute right upper q uadrant pain, no evidence of gallstones by ultrasound.. PROCEDURE: 6.4 mCi of techne tium 99m Choletec were given intravenously followed by anterior imaging over the upper abdomen. FINDINGS: There is prompt up take and excretion of activity by the liver with prompt visualization of the biliary tree, gallbladder and small bowel. IMPRESSION: Normal hepatobiliary scan. [id number] 2015-12-23 HEPATOBILIARY SCAN: [facility] 09:08:00-00:00 HISTORY: Acute right upper q uadrant pain, no evidence of gallstones by ultrasound.. PROCEDURE: 6.4 mCi of techne tium 99m Choletec were given intravenously followed by anterior imaging over the upper abdomen. FINDINGS: There is prompt up take and excretion of activity by the liver with prompt visualization of the biliary tree, gallbladder and small bowel. IMPRESSION: Normal hepatobiliary scan. [id number] 2015-12-23 HEPATOBILIARY SCAN: [facility] 09:08:00-00:00 HISTORY: Acute right upper q uadrant pain, no evidence of gallstones by ultrasound.. PROCEDURE: 6.4 mCi of techne tium 99m Choletec were given intravenously followed by anterior imaging over the upper abdomen. FINDINGS: There is prompt up take and excretion of activity by the liver with prompt visualization of the biliary tree, gallbladder and small bowel. IMPRESSION: Normal hepatobiliary scan. [id number] 2015-12-23 HEPATOBILIARY SCAN: [facility] 09:08:00-00:00 HISTORY: Acute right upper q uadrant pain, no evidence of gallstones by ultrasound.. PROCEDURE: 6.4 mCi of techne tium 99m Choletec were given intravenously followed by anterior imaging over the upper abdomen. FINDINGS: There is prompt up take and excretion of activity by the liver with prompt visualization of the biliary tree, gallbladder and small bowel. IMPRESSION: Normal hepatobiliary scan. [id number] 2015-12-23 HEPATOBILIARY SCAN: [facility] 09:08:00-00:00 HISTORY: Acute right upper q uadrant pain, no evidence of gallstones by ultrasound.. PROCEDURE: 6.4 mCi of techne tium 99m Choletec were given intravenously followed by anterior imaging over the upper abdomen. FINDINGS: There is prompt up take and excretion of activity by the liver with prompt visualization of the biliary tree, gallbladder and small bowel. IMPRESSION: Normal hepatobiliary scan. [id number] 2015-12-23 HEPATOBILIARY SCAN: [facility] 09:08:00-00:00 HISTORY: Acute right upper q uadrant pain, no evidence of gallstones by ultrasound.. PROCEDURE: 6.4 mCi of techne tium 99m Choletec were given intravenously followed by anterior imaging over the upper abdomen. FINDINGS: There is prompt up take and excretion of activity by the liver with prompt visualization of the biliary tree, gallbladder and small bowel. IMPRESSION: Normal hepatobiliary scan. [id number] 2015-12-21 Study: Abdomen/Pelvis wo IV contrast CT 6 5:29 PM [facility] 18:20:00-00:00 Patient Name: DONNY VELEZ MR: [id number] 436 : 1990; Age: 25 years y/o [...] mildly complex left ovarian cys t. SL: [facility] 2015-12-21 Study: Abdomen/Pelvis wo IV contrast CT 6 5:29 PM T [facility] 18:20:00-00:00 Patient Name: DONNY VELEZ MR: [id number] : 1990; Age: 25 years y/o [...] mildly complex left ovarian cys t. SL: [facility] 2015-12-21 Study: Abdomen/Pelvis wo IV contrast CT 6 5:29 PM [facility] 18:20:00-00:00 Patient Name: DONNY VELEZ MR: [id number] : 1990; Age: 25 years y/o [...] mildly complex left ovarian cys t. SL: [facility] 2015-12-21 Study: Abdomen/Pelvis wo IV contrast CT 6 5:29 PM [facility] 18:20:00-00:00 Patient Name: DONNY VELEZ MR: [id number] : 1990; Age: 25 years y/o [...] mildly complex left ovarian cys t. SL: [facility] 2015-12-21 Study: Abdomen/Pelvis wo IV contrast CT 6 5:29 PM [facility] 18:20:00-00:00 Patient Name: DONNY VELEZ MR: [id number] : 1990; Age: 25 years y/o [...] mildly complex left ovarian cys t. SL: [facility] 2015-12-21 Study: Abdomen/Pelvis wo IV contrast CT 6 5:29 PM [facility] 18:20:00-00:00 Patient Name: DONNY VELEZ MR: [id number] : 1990; Age: 25 years y/o [...] mildly complex left ovarian cys t. SL: [facility] 2015-12-21 Study: Abdomen/Pelvis wo IV contrast CT 6 5:29 PM [facility] 18:20:00-00:00 Patient Name: DONNY VELEZ MR: [id number] 436 : 1990; Age: 25 years y/o [...] mildly complex left ovarian cys t. SL: [facility] 2015-12-21 Study: Abdomen/Pelvis wo IV contrast CT 6 5:29 PM [facility] 18:20:00-00:00 Patient Name: DONNY VELEZ MR: [id number] 436 : 1990; Age: 25 years y/o [...] mildly complex left ovarian cys t. SL: [facility] 2015-12-21 Study: Abdomen/Pelvis wo IV contrast CT 6 5:29 PM T [facility] 18:20:00-00:00 Patient Name: DONNY VELEZ MR: [id number] 436 : 1990; Age: 25 years y/o [...] mildly complex left ovarian cys t. SL: [facility] 2015-12-21 Study: Abdomen/Pelvis wo IV contrast CT 6 5:29 PM [facility] 18:20:00-00:00 Patient Name: DONNY VELEZ MR: [id number] 436 : 1990; Age: 25 years y/o [...] mildly complex left ovarian cys t. SL: [facility] 2015-12-21 Study: Abdomen/Pelvis wo IV contrast CT 6 5:29 PM [facility] 18:20:00-00:00 Patient Name: DONNY VELEZ MR: [id number] 436 : 1990; Age: 25 years y/o [...] mildly complex left ovarian cys t. [facility] Study: Abdomen/Pelvis wo IV contrast CT 6 5:29 PM [facility] 18:20:00-00:00 Patient Name: DONNY VELEZ MR: [id number] : 1990; Age: 25 years y/o [...] mildly complex left ovarian cys t. SL: [facility] 2015-12-21 Study: Abdomen/Pelvis wo IV contrast CT 6 5:29 PM [facility] 18:20:00-00:00 Patient Name: DONNY VELEZ MR: [id number] 436 : 1990; Age: 25 years y/o [...] mildly complex left ovarian cys t. SL: [facility] 2015-12-21 Study: Abdomen/Pelvis wo IV contrast CT 6 5:29 PM [facility] 18:20:00-00:00 Patient Name: DONNY VELEZ MR: [id number] 436 : 1990; Age: 25 years y/o [...] mildly complex left ovarian cys t. SL: [facility] 2015-12-21 Patient Name: DONNY BABB [facility] 17:55:00-00:00 : 1990; Age: 25 years y/o Female MR: [id number] Study: Abdomen RUQ US dated 12/21/2015 Clinical [...] right upper quadrant abdominal u ltrasound. SL: [facility] 2015-12-21 Patient Name: DONNY BABB [facility] 17:55:00-00:00 : 1990; Age: 25 years y/o Female MR: [id number] Study: Abdomen RUQ US dated 12/21/2015 Clinical [...] Unremarkable right upper quadrant abdominal u ltrasound. : [facility] 2015-12-21 Patient Name: DONNY BABB [facility] 17:55:00-00:00 : 1990; Age: 25 years y/o Female MR: [id number] Study: Abdomen RUQ US dated 12/21/2015 Clinical [...] Unremarkable right upper quadrant abdominal [facility]trasound. : [facility] : 1990; Age: 25 years y/o Female MR: [id number] Study: Abdomen RUQ US dated 12/21/2015 Clinical [...] right upper quadrant abdominal u ltrasound. SL: [facility] 2015-12-21 Patient Name: DONNY [facility]LE[facility] 17:55:00-00:00 : 1990; Age: 25 years y/o Female MR: [id number] Study: Abdomen RUQ US dated 12/21/2015 Clinical [...] right upper quadrant abdominal u ltrasound. SL: [facility] 2015-12-21 Patient Name: DONNY BABB [facility] 17:55:00-00:00 : 1990; Age: 25 years y/o Female MR: [id number] Study: Abdomen RUQ US dated 12/21/2015 Clinical [...] right upper quadrant abdominal u [facility]trasound. [facility] Patient Name: DONNY BABB [facility] 17:55:00-00:00 : 1990; Age: 25 years y/o Female MR: [id number] Study: Abdomen RUQ US dated 12/21/2015 Clinical [...] right upper quadrant abdominal u ltrasound. SL: [facility] 2015-12-21 Patient Name: DONNY BABB [facility] 17:55:00-00:00 : 1990; Age: 25 years y/o Female MR: [id number] Study: Abdomen RUQ US dated 12/21/2015 Clinical [...] right upper quadrant abdominal [facility]trasound. [facility] Patient Name: DONNY BABB [facility] 17:55:00-00:00 : 1990; Age: 25 years y/o Female MR: [id number] Study: Abdomen RUQ US dated 12/21/2015 Clinical [...] right upper quadrant abdominal u ltrasound. SL: [facility] 2015-12-21 Patient Name: DONNY [facility] 17:55:00-00:00 : 1990; Age: 25 years y/o Female MR: [id number] Study: Abdomen RUQ US dated 12/21/2015 Clinical [...] right upper quadrant abdominal u ltrasound. [facility] Patient Name: DONNY BABB [facility] 17:55:00-00:00 : 1990; Age: 25 years y/o Female MR: [id number] Study: Abdomen RUQ US dated 12/21/2015 Clinical [...] upper quadrant abdominal u ltrasound. SL: [facility] 2015-12-21 Patient Name: DONNY BABB [facility] 17:55:00-00:00 : 1990; Age: 25 years y/o Female MR: [id number] Study: Abdomen RUQ US dated 12/21/2015 Clinical [...] right upper quadrant abdominal u ltrasound. SL: [facility] 2015-12-21 Patient Name: DONNY [facility]LE[facility] 17:55:00-00:00 : 1990; Age: 25 years y/o Female MR: [id number] Study: Abdomen RUQ US dated 12/21/2015 Clinical [...] right upper quadrant abdominal u ltrasound. [facility] 2015-12-21 Patient Name: DONNY BABB [facility] 17:55:00-00:00 : 1990; Age: 25 years y/o Female MR: [id number] Study: Abdomen RUQ US dated 12/21/2015 Clinical [...] right upper quadrant abdominal u ltrasound. SL: [facility] 2015-12-20 Patient Name: DONNY BABB [facility] 21:36:00-00:00 : 1990; Age: 25 years y/o Female MR: [id number] Study: Pelvis w Transvag and Pelvis Doppler [...] detected. No definite adnexal mass detected. SL: [facility] 2015-12-20 Patient Name: DONNY VELEZ [facility] 21:36:00-00:00 : 1990; Age: 25 years y/o Female MR: [id number] Study: Pelvis w Transvag and Pelvis Doppler [...] detected. No definite adnexal mass detected. SL: [facility] 2015-12-20 Patient Name: DONNY [facility] 21:36:00-00:00 : 1990; Age: 25 years y/o Female MR: [id number] Study: Pelvis w Transvag and Pelvis Doppler [...] detected. No definite adnexal mass detected. SL: [facility] 2015-12-20 Patient Name: DONNY VELEZ [facility] 21:36:00-00:00 : 1990; Age: 25 years y/o Female MR: [id number] Study: Pelvis w Transvag and Pelvis Doppler [...] detected. No definite adnexal mass detected. SL: [facility] 2015-12-20 Patient Name: DONNY VELEZ [facility] 21:36:00-00:00 : 1990; Age: 25 years y/o Female MR: [id number] Study: Pelvis w Transvag and Pelvis Doppler [...] detected. No definite adnexal mass detected. SL: [facility] 2015-12-20 Patient Name: DONNY BABB [facility] 21:36:00-00:00 : 1990; Age: 25 years y/o Female MR: [id number] Study: Pelvis w Transvag and Pelvis Doppler [...] detected. No definite adnexal mass detected. SL: [facility] 2015-12-20 [facility]:00 : 1990; Age: 25 years y/o Female MR: [id number] Study: Pelvis w Transvag and Pelvis Doppler [...] detected. No definite adnexal mass detected. SL: [facility] 2015-12-20 [facility]00 : 1990; Age: 25 years y/o Female MR: [id number] Study: Pelvis w Transvag and Pelvis Doppler US 9:23 PM CDT Ordering Physician: Yarelis Hekc Clinical Indication: Abdominal pain, acute; Comparison: None [...] detected. No definite adnexal mass detected. SL: [facility] 2015-12-20 Patient Name: DONNY BABB [facility] 21:36:00-00:00 : 1990; Age: 25 years y/o Female MR: [id number] Study: Pelvis w Transvag and Pelvis Doppler [...] detected. No definite adnexal mass detected. SL: [facility] 2015-12-20 Patient Name: DONNY BABB [facility] 21:36:00-00:00 : 1990; Age: 25 years y/o Female MR: [id number] Study: Pelvis w Transvag and Pelvis Doppler [...] detected. No definite adnexal mass detected. SL: [facility] 2015-12-20 Patient Name: DONNY BABB [facility] 21:36:00-00:00 : 1990; Age: 25 years y/o Female MR: [id number] Study: Pelvis w Transvag and Pelvis Doppler [...] detected. No definite adnexal mass detected. SL: [facility] 2015-12-20 Patient Name: DONNY BABB [facility] 21:36:00-00:00 : 1990; Age: 25 years y/o Female MR: [id number] Study: Pelvis w Transvag and Pelvis Doppler [...] detected. No definite adnexal mass detected. SL: [facility] 2015-12-20 Patient Name: DONNY BABB [facility] 21:36:00-00:00 : 1990; Age: 25 years y/o Female MR: [id number] Study: Pelvis w Transvag and Pelvis Doppler [...] detected. No definite adnexal mass detected. SL: [facility] 2015-12-20 Patient Name: DONNY BABB [facility] 21:36:00-00:00 : 1990; Age: 25 years y/o Female MR: [id number] Study: Pelvis w Transvag and Pelvis Doppler [...] detected. No definite adnexal mass detected. SL: [facility] 2015-12-20 CT SCAN OF THE ABDOMEN AND PELVIS WITH CONTRAST. [facility] 19:55:00-00:00 HX: Clinical Indication: Low er abdominal pain. [...] acute abdominal or pelvic process detected. SL: [facility]- 2015-12-20 CT SCAN OF THE ABDOMEN AND PELVIS WITH CONTRAST. [facility] 19:55:00-00:00 HX: Clinical Indication: Low er abdominal pain. [...] acute abdominal or pelvic process detected. [facility] CT SCAN OF THE ABDOMEN AND PELVIS WITH CONTRAST. [facility] 19:55:00-00:00 HX: Clinical Indication: Low er abdominal pain. [...] acute abdominal or pelvic process detected. [facility] CT SCAN OF THE ABDOMEN AND PELVIS WITH CONTRAST. [facility] 19:55:00-00:00 HX: Clinical Indication: Low er abdominal pain. [...] acute abdominal or pelvic process detected. [facility] CT SCAN OF THE ABDOMEN AND PELVIS WITH CONTRAST. [facility] 19:55:00-00:00 HX: Clinical Indication: Low er abdominal pain. [...] definite acute abdominal or pelvic process detected. : [facility] SC[facility] OF THE ABDOMEN AND PELVIS WITH CONTRAST. [facility] 19:55:00-00:00 HX: Clinical Indication: Low er abdominal pain. [...] acute abdominal or pelvic process detected. [facility] SCAN OF THE ABDOMEN AND PELVIS WITH CONTRAST. [facility] 19:55:00-00:00 HX: Clinical Indication: Low er abdominal pain. [...] definite acute abdominal or pelvic process detected. : [facility] CT SCAN OF THE ABDOMEN AND PELVIS WITH CONTRAST. [facility] 19:55:00-00:00 HX: Clinical Indication: Low er abdominal pain. [...] acute abdominal or pelvic process detected. [facility] CT SCAN OF THE ABDOMEN AND PELVIS WITH CONTRAST. [facility] 19:55:00-00:00 HX: Clinical Indication: Low er abdominal pain. [...] definite acute abdominal or pelvic process detected. : [facility] CT SCAN OF THE ABDOMEN AND PELVIS WITH CONTRAST. [facility] :55:00-00:00 HX: Clinical Indication: Low er abdominal pain. [...] acute abdominal or pelvic process detected. [facility] CT SCAN OF THE ABDOMEN AND PELVIS WITH CONTRAST. [facility] 19:55:00-00:00 HX: Clinical Indication: Low er abdominal pain. [...] acute abdominal or pelvic process detected. SL: [facility]- 2015-12-20 CT SCAN OF THE ABDOMEN AND PELVIS WITH CONTRAST. [facility] 19:55:00-00:00 HX: Clinical Indication: Low er abdominal pain. [...] acute abdominal or pelvic process detected. SL: [facility]- 2015-12-20 CT SCAN OF THE ABDOMEN AND PELVIS WITH CONTRAST. [facility] 19:55:00-00:00 HX: Clinical Indication: Low er abdominal pain. [...] abdominal or pelvic process detected. SL: [facility] 2015-12-20 CT SCAN OF THE ABDOMEN AND PELVIS WITH CONTRAST. [facility] 19:55:00-00:00 HX: Clinical Indication: Low er abdominal pain. [...]
[2023-01-15] MEDS ORDERED: NA CHLORIDE 0.9% 250 ML ONE ×2 (10:06→15:34)
[2023-01-15] MEDS ORDERED: MORPHINE 4 MG/ML SYR ONE (10:06)
[2023-01-15 10:08] LABS: Protime INR 1.03
--- NOTE | 2023-01-15 10:22 | RAD REPORT ---
EXAM DESCRIPTION: US - Abdomen Exam Limited - 01/15/2023 10:10 am CLINICAL HISTORY: ABD PAIN COMPARISON: <Comparisons> FINDINGS: The gallbladder demonstrates no gallstones. No pericholecystic fluid or gallbladder wall t hickening. The common bile duct is normal measuring 4 mm. The liver demonstrates no findings of intrahepatic biliary dilatation. IMPRESSION: Unremarkable examination.
[2023-01-15] MEDS ORDERED: PANTOPRAZOLE 40 MG INJ ONE ×2 (10:36→11:27)
[2023-01-15] MEDS ORDERED: METRONIDAZOLE 500mg IVPB 500 MG/100 ML BAG IV ONE (10:37)
[2023-01-15] MEDS ORDERED: CIPROFLOXACIN 400mg IV 400 MG/200 ML BAG IV ONE (10:37)
[2023-01-15] MEDS ORDERED: PANTOPRAZOLE INJ 80 MG in NA CHLORIDE 0.9% 250 ML IV SCH (11:00)
[2023-01-15 11:31] LABS: Specific Gravity 1.019 (1.005-1.030); Urine Bacteria <20 /HPF (<20); Urine Bilirubin NEGATIVE (Negative); Urine Blood Negative (Negative); Urine Clarity Extremely Turbid (Clear); Urine Color Light-Yellow (Yellow); Urine Glucose NEGATIVE (Negative); Urine Protein NEGATIVE (Negative); Urine RBC <5 /HPF (None Seen); Urine Urobilinogen Normal (Normal)
[2023-01-15 11:36] LABS: Specific Gravity 1.019 (1.005-1.030)
--- NOTE | 2023-01-15 11:52 | RAD REPORT ---
EXAM DESCRIPTION: CTAbdomen Pelvis W Contrast - 01/15/2023 11:44 am CLINICAL HISTORY: Abdominal pain. ABD PAIN COMPARISON: Abdomen Pelvis W Contrast dated 12/10/2021; Abdomen Pelvis W Contrast dated 12/03/2021 ; Abdomen Pelvis W Contrast dated 12/23/2017; Abdomen Pelvis W Contrast dated 12/31/2016; Transvagi nal Study Probe dated 12/03/2021 TECHNIQUE: Biphasic CT imaging of the abdomen and pelvis was performed with 100 ml non-ionic IV cont rast. All CT scans are performed using dose optimization technique as appropriate and may include automated exposure control or mA/KV adjustment according to patient size. FINDINGS: The lung bases are clear. The liver shows mild fatty infiltration. Spleen, pancreas, adrenal glands and kidneys are within norm al limits. No bowel obstruction, free air, free fluid or abscess. Moderate stool without throughout the colon. T he appendix is normal. No evidence of significant lymphadenopathy. 8 cm right adnexal mass again see n. No suspicious bony findings. IMPRESSION: No acute intra-abdominal or pelvic finding. 8 cm right adnexal mass again noted.
[2023-01-15 12:15] LABS: Absolute Lymphocytes (CBC) 2.9 K/uL (0.7-4.9); Hematocrit 16.7 % (36.0-45.0); Lymphocytes % 15.8 % (15.3-44.8); MCV 90.3 fL (80-100); MPV 7.7 fL (7.6-11.3); RBC Red Blood Cell Count 1.85 M/uL (3.86-4.86)
--- NOTE | 2023-01-15 14:00 | EDPHYS ---
Physician Documentation [facility] Name: Jaye Pérez Age: 32 yrs Sex: Female : 1990 Arrival Date: 01/15/2023 Time: 08:51 Bed 13 Private MD: ED Physician Best Paniagua HPI: 01/15 09:00 This 32 yrs old Female presents to ER via Unassigned with complaints of abd pain. kb 09:00 The patient has not recently seen a physician. Patient is a 32-year-old female with a kb history of peptic ulcers, asthma and ovarian cyst who presents for right upper quadrant pain that started 1 week ago and has gotten worse. Reports nausea and vomiting. Denies fever, diarrhea, constipation. Denies having this pain in the past. Abdominal surgeries include ovarian cyst removal.. 12:58 Patient reports she has had episodes of hematemesis and blood in her stool over the kb last week.. Historical: - Allergies: 09:01 No Known Allergies; iw - PMHx: 09:03 asthma; iw 09:04 PUD; iw - PSHx: 09:04 ovarian cyst removed; iw - Immunization history:: Adult Immunizations not up to date. - Social history:: Smoking status: Patient reports the use of cigarette tobacco products. ROS: 09:00 Constitutional: Negative for fever, chills, and weight loss. kb 09:00 Abdomen/GI: Positive for abdominal pain, nausea and vomiting, hematemesis, black/tarry stool, rectal bleeding, Negative for diarrhea, constipation. 09:00 All other systems are negative. Exam: 09:00 Constitutional: This is a well developed, well nourished patient who is awake, alert, kb and in no acute distress. Head/Face: Normocephalic, atraumatic. ENT: Moist Mucous membranes Cardiovascular: Regular rate and rhythm with a normal S1 and S2. No gallops, murmurs, or rubs. No pulse deficits. Respiratory: Respirations even and unlabored. No increased work of breathing. Talking in full sentences Skin: Warm, dry with normal turgor. Normal color. MS/ Extremity: Pulses equal, no cyanosis. Neurovascular intact. Full, normal range of motion. Neuro: Awake and alert, GCS 15, oriented to person, place, time, and situation. Moves all extremities. Normal gait. 09:00 Abdomen/GI: Inspection: obese Bowel sounds: normal, Palpation: soft, in all quadrants, mild abdominal tenderness, in the left upper quadrant and right lower quadrant, moderate abdominal tenderness, in the right upper quadrant. 10:23 ECG was reviewed by the Attending Physician. kb 12:59 Abdomen/GI: Rectal exam: is unremarkable, the exam is chaperoned by the nurse. kb Vital Signs: 09:02 Weight 86.18 kg; Height 5 ft. 5 in. ; Pain 9/10; iw 09:03 BP 144 / 83; Pulse 102; Resp 19; Temp 98.5; Pulse Ox 100% ; dd1 10:07 BP 130 / 78; Pulse 100; Resp 12 S; Pulse Ox 99% on R/A; Pain 9/10; kc6 10:51 BP 127 / 81; Pulse 93; Resp 14 S; Pulse Ox 100% on R/A; kc6 12:11 BP 122 / 68; Pulse 94; Resp 17 S; Pulse Ox 100% on R/A; kc6 12:55 BP 118 / 64; Pulse 91; Resp 18 S; Pulse Ox 100% on R/A; kc6 14:00 BP 119 / 70; Pulse 91; Resp 20 S; Pulse Ox 100% on R/A; kc6 15:09 BP 133 / 78; Pulse 93; Resp 17 S; Temp 98.6(O); Pulse Ox 100% on R/A; kc6 09:02 Body Mass Index 31.62 (86.18 kg, 165.1 cm) iw 09:02 Pain Scale: Adult iw 10:07 Pain Scale: Adult kc6 MDM: 08:54 Patient medically screened. kb 09:01 Data reviewed: vital signs, nurses notes. kb 10:47 ED course: ED attending note: Patient is a 32-year-old female who endorses right upper cp3 abdominal pain for the last 3 to 4 days. The patient has a history of peptic ulcer disease and asthma and endorses that she has been having dark stool for several days and vomiting some bright red blood intermittently. Patient endorses that she has not vomited any blood today. The patient endorses she was seen at [facility] within the last 2 days and had a negative CT scan done and advised that she had gastroenteritis. On exam patient is hemodynamically stable blood pressure within normal range pulse of 100 and is not showing any signs of hypoxia on exam patient with mild right upper quadrant tenderness with no rebound or guarding. Patient is anemic with a hemoglobin of 6.5. Labs CT is pending. Plan is to admit with blood transfusion, IV fluids, Protonix drip and is pending CT abdomen pelvis for admission. 12:55 Differential diagnosis: bowel obstruction, cholecystitis, Cholelithiasis, kb gastroesophageal reflux disease, GI Bleed, non-specific abd pain, Peptic Ulcer Disease. Consideration of Admission/Observation Escalation of care including admission/observation considered. pt will be transferred for GI . External Records Reviewed: Outside ED record: Labs from [facility] received via fax and reviewed. Hemoglobin on January 06 was 15.6 hematocrit 45.2. On January 09 hemoglobin 14.7 hematocrit 41.9. On January 13 hemoglobin 10.7 hematocrit 30.3. . Counseling: I had a detailed discussion with the patient and/or guardian regarding: the historical points, exam findings, and any diagnostic results supporting the discharge/admit diagnosis, lab results, radiology results, the need to transfer to another facility, [facility] does not immediately have the required specialist. ED course: Today's hemoglobin 6.5 on initial draw, repeated and was 5.5. 2 units of packed red blood cells ordered and transfer initiated. 13:11 Management of patient was discussed with the following: Dr Jacques, hospitalist at [facility]. Wants the case discussed with hair designer prior to his acceptance. If hair designer does not think pt needs ICU at this time he will accept to his service. 13:59 Management of patient was discussed with the following: Discussed with Dr Nguyen, hair designer, who does not think pt needs an ICU bed at this time. Pt is accepted to tele. . 01/15 08:57 Order name: CBC with Diff; Complete Time: 09:30 kb 01/15 08:57 Order name: CMP; Complete Time: 09:46 kb 01/15 08:57 Order name: Lipase; Complete Time: 09:46 kb 01/15 08:57 Order name: Test, Urine; Complete Time: 11:42 kb 01/15 08:57 Order name: Urinalysis w/ reflexes; Complete Time: 11:42 kb 01/15 09:31 Order name: Blood Culture Adult (2) kb 01/15 09:31 Order name: Lactate w/ 2H reflex if indic.; Complete Time: 10:21 kb 01/15 09:31 Order name: Protime (+inr); Complete Time: 10:17 kb 01/15 09:31 Order name: Ptt, Activated; Complete Time: 10:17 kb 01/15 09:53 Order name: Type And Screen kb 01/15 10:56 Order name: ABO/RH no charge; Complete Time: 10:56 EDMS 01/15 10:59 Order name: Packed RBC Leukored EDMS 01/15 11:58 Order name: CBC with Diff; Complete Time: 12:28 kb 01/15 12:31 Order name: Bb Add On eb 01/15 12:40 Order name: Packed RBCs (Additional Unit) EDMS 01/15 08:57 Order name: US Abdomen Limited; Complete Time: 10:23 kb 01/15 11:04 Order name: CT Abd/Pelvis - IV Contrast Only; Complete Time: 11:57 kb 01/15 09:31 Order name: EKG; Complete Time: 09:32 kb 01/15 08:57 Order name: IV Saline Lock; Complete Time: 09:08 kb 01/15 08:57 Order name: Labs collected and sent; Complete Time: 09:08 kb 01/15 09:31 Order name: Accucheck; Complete Time: 09:32 kb 01/15 09:31 Order name: Cardiac monitoring; Complete Time: 09:54 kb 01/15 09:31 Order name: EKG - Nurse/Tech; Complete Time: 09:54 kb 01/15 09:31 Order name: IV Saline Lock - Large Bore; Complete Time: 09:54 kb 01/15 09:31 Order name: O2 Per Protocol; Complete Time: 09:32 kb 01/15 09:31 Order name: O2 Sat Monitoring; Complete Time: 09:32 kb 01/15 09:31 Order name: Vital Signs; Complete Time: 09:32 kb EC:23 Rate is 100 beats/min. Rhythm is regular. QRS Hamilton is Normal. VA interval is normal at kb 130 msec. QRS interval is normal at 78 msec. QT interval is normal at 474 msec. Administered Medications: 09:09 Drug: NS 0.9% IV 1000 ml Route: IV; Rate: 1 bolus; Site: right antecubital; iw 11:01 Follow up: Response: No adverse reaction; IV Status: Completed infusion; IV Intake: kc6 1000ml 09:09 Drug: Famotidine IVP 20 mg Route: IVP; Site: right antecubital; iw 10:23 Follow up: Response: No adverse reaction kc6 09:09 Drug: TORadol - Ketorolac IVP 15 mg Route: IVP; Site: right antecubital; iw 10:22 Follow up: Response: No adverse reaction; Pain is unchanged, physician notified kc6 09:09 Drug: Ondansetron IVP 4 mg Route: IVP; Site: right antecubital; iw 10:22 Follow up: Response: No adverse reaction; Nausea is decreased kc6 10:07 Drug: morphine IVP or IV 4 mg Route: IVP; Infused Over: 4 mins; Site: right antecubital;kc6 10:34 Follow up: Response: No adverse reaction; Pain is decreased; RASS: Alert and Calm (0) kc6 10:30 Drug: Pantoprazole IVP 80 mg Route: IVP; Site: right antecubital; kc6 11:23 Follow up: Response: No adverse reaction kc6 10:30 Drug: metroNIDAZOLE IVPB 500 mg Volume: 100 ml; Route: IVPB; Rate: 200 ml/hr; Infused kc6 Over: 30 mins; Site: right antecubital; 12:11 Follow up: Response: No adverse reaction; IV Status: Completed infusion; IV Intake: kc6 100ml 10:45 Drug: Ciprofloxacin IVPB 400 mg Volume: 200 ml; Route: IVPB; Infused Over: 60 mins; kc6 Site: right antecubital; 13:48 Follow up: Response: No adverse reaction; IV Status: Completed infusion; IV Intake: kc6 200ml 10:59 Drug: Pantoprazole IV 8 mg/hr Route: IV; Rate: 25 ml/hr; Site: left antecubital; kc6 15:09 Follow up: Response: No adverse reaction; IV Status: Infusion continued upon transfer; kc6 IV Intake: 250ml 14:50 Drug: Acetaminophen PO 1000 mg Route: PO; kc6 15:48 Follow up: Response: No adverse reaction; Pain is decreased kc6 Disposition: 11:18 I reviewed the patient's care provided by Advanced Practice Provider \T\ agree w/ the cp3 diagnosis \T\ care plan. I personally saw the pt \T\ performed a substantive portion of the visit, incldng all aspects of the (History/Exam/Medical Decision Making). Disposition Summary: 01/15/23 14:00 Transfer Ordered Transfer Location: [facility] kb Reason: Higher level of care kb Condition: Stable kb Problem: new kb Symptoms: are unchanged kb Accepting Physician: Dr Jacques(01/15/23 16:59) kc6 Diagnosis - GI Bleed/ Gastrointestinal hemorrhage, unspecified kb - Anemia, unspecified kb Forms: - Medication Reconciliation Form kb - SBAR form kb Signatures: Dispatcher [employer] EDMS Ana Paula Simon, INSPECTOR BALL POINTS-C INSPECTOR BALL POINTS-Best Troy MD MD cp3 Svetlana Rowe RN RN iw Rima Chan RN RN kc6 Corrections: (The following items were deleted from the chart) 10:32 10:22 Abdomen Pelvis W Con+CT.RAD.BRZ ordered. EDMS EDMS 11:09 10:10 Abdomen Pelvis W Con+CT.RAD.BRZ ordered. EDMS EDMS 12:58 09:00 Patient is a 32-year-old female with a history of peptic ulcers, asthma and kb ovarian cyst who presents for right upper quadrant pain that started 1 week ago and has gotten worse. Reports nausea and vomiting. Denies fever, diarrhea, constipation. Denies having this pain in the past. Abdominal surgeries include ovarian cyst removal.. kb 12:59 09:00 Abdomen/GI: Positive for abdominal pain, nausea and vomiting, Negative for kb diarrhea, constipation, kb 16:59 14:00 Dr Jacques kb kc6
--- NOTE | 2023-01-15 14:00 | ER ---
Nurse's Notes [facility] Name: Jaye Pérez Age: 32 yrs Sex: Female : 1990 Arrival Date: 01/15/2023 Time: 08:51 Bed 13 Private MD: Diagnosis: GI Bleed/ Gastrointestinal hemorrhage, unspecified;Anemia, unspecified Presentation: 01/15 09:01 Chief complaint: Patient states: upper abd pain , n/v X 1 week. Coronavirus screen: At this time, the client does not indicate any symptoms associated with coronavirus-19. Ebola Screen: Patient negative for fever greater than or equal to 101.5 degrees Fahrenheit, and additional compatible Ebola Virus Disease symptoms Patient denies exposure to infectious person. Patient denies travel to an Ebola-affected area in the 21 days before illness onset. No symptoms or risks identified at this time. Risk Assessment: Do you want to hurt yourself or someone else? Patient reports no desire to harm self or others. Onset of symptoms was January 09, 2023. 09:01 Method Of Arrival: Ambulatory iw 09: Acuity: JEREMIAH 3 iw 09:02 Initial Sepsis Screen: Does the patient meet any 2 criteria? No. Patient's initial iw sepsis screen is negative. Does the patient have a suspected source of infection? No. Patient's initial sepsis screen is negative. Historical: - Allergies: 09:01 No Known Allergies; iw - PMHx: 09:03 asthma; iw 09:04 PUD; iw - PSHx: 09:04 ovarian cyst removed; iw - Immunization history:: Adult Immunizations not up to date. - Social history:: Smoking status: Patient reports the use of cigarette tobacco products. Screenin:09 [facility] ED Fall Risk Assessment (Adult) History of falling in the last 3 months, iw including since admission No falls in past 3 months (0 pts) Confusion or Disorientation No (0 pts) Intoxicated or Sedated No (0 pts) Impaired Gait No (0 pts) Mobility Assist Device Used No (0 pt) Altered Elimination No (0 pt) Score/Fall Risk Level 0 - 2 = Low Risk. Abuse screen: Denies threats or abuse. Denies injuries from another. Nutritional screening: No deficits noted. Tuberculosis screening: No symptoms or risk factors identified. Assessment: 09:11 General: Appears in no apparent distress. uncomfortable, ill, Behavior is calm, kc6 cooperative, appropriate for age. Pain: Complains of pain in abdomen Pain does not radiate. Pain currently is 9 out of 10 on a pain scale. Pain began 2-3 days ago. Is continuous, Noted to be moaning, restless. Neuro: Level of Consciousness is awake, alert, obeys commands, Oriented to person, place, time, situation, Appropriate for age. Cardiovascular: Capillary refill < 3 seconds. Respiratory: Airway is patent Trachea midline Respiratory effort is even, unlabored, Respiratory pattern is regular, symmetrical. GI: Abdomen is round non-distended, Bowel sounds present X 4 quads. Abd is soft X 4 quads Abdomen is tender to palpation in right lower quadrant and left upper quadrant and right upper quadrant Reports diarrhea, bloody stool, nausea, vomiting. : No signs and/or symptoms were reported regarding the genitourinary system. EENT: No signs and/or symptoms were reported regarding the EENT system. Derm: No signs and/or symptoms reported regarding the dermatologic system. Skin is intact, is healthy with good turgor, Skin is pink, warm \T\ dry. Musculoskeletal: No signs and/or symptoms reported regarding the musculoskeletal system. Circulation, motion, and sensation intact. Capillary refill < 3 seconds, Range of motion: intact in all extremities. 10:07 Reassessment: Patient appears in no apparent distress at this time. No changes from kc6 previously documented assessment. Patient and/or family updated on plan of care and expected duration. Pain level reassessed. Patient is alert, oriented x 3, equal unlabored respirations, skin warm/dry/pink. 11:00 Reassessment: Patient appears in no apparent distress at this time. No changes from kc6 previously documented assessment. Patient and/or family updated on plan of care and expected duration. Pain level reassessed. Patient is alert, oriented x 3, equal unlabored respirations, skin warm/dry/pink. Patient states feeling better. 12:00 Reassessment: Patient appears in no apparent distress at this time. No changes from kc6 previously documented assessment. Patient and/or family updated on plan of care and expected duration. Pain level reassessed. Patient is alert, oriented x 3, equal unlabored respirations, skin warm/dry/pink. 12:10 Reassessment: per JENNIFER Dong recheck H\T\H prior to starting blood transfusion. repeat kc6 labs drawn and sent at this time. 12:55 Reassessment: blood transfusion initiated. please see flow sheet for further vital kc6 signs. 13:00 Reassessment: Patient appears in no apparent distress at this time. No changes from kc6 previously documented assessment. Patient and/or family updated on plan of care and expected duration. Pain level reassessed. Patient is alert, oriented x 3, equal unlabored respirations, skin warm/dry/pink. 14:00 Reassessment: Patient appears in no apparent distress at this time. No changes from kc6 previously documented assessment. Patient and/or family updated on plan of care and expected duration. Pain level reassessed. Patient is alert, oriented x 3, equal unlabored respirations, skin warm/dry/pink. 15:00 Reassessment: Patient appears in no apparent distress at this time. No changes from kc6 previously documented assessment. Patient and/or family updated on plan of care and expected duration. Pain level reassessed. Patient is alert, oriented x 3, equal unlabored respirations, skin warm/dry/pink. Vital Signs: 09:02 Weight 86.18 kg; Height 5 ft. 5 in. ; Pain 9/10; iw 09:03 BP 144 / 83; Pulse 102; Resp 19; Temp 98.5; Pulse Ox 100% ; dd1 10:07 BP 130 / 78; Pulse 100; Resp 12 S; Pulse Ox 99% on R/A; Pain 9/10; kc6 10:51 BP 127 / 81; Pulse 93; Resp 14 S; Pulse Ox 100% on R/A; kc6 12:11 BP 122 / 68; Pulse 94; Resp 17 S; Pulse Ox 100% on R/A; kc6 12:55 BP 118 / 64; Pulse 91; Resp 18 S; Pulse Ox 100% on R/A; kc6 14:00 BP 119 / 70; Pulse 91; Resp 20 S; Pulse Ox 100% on R/A; kc6 15:09 BP 133 / 78; Pulse 93; Resp 17 S; Temp 98.6(O); Pulse Ox 100% on R/A; kc6 09:02 Body Mass Index 31.62 (86.18 kg, 165.1 cm) iw 09:02 Pain Scale: Adult iw 10:07 Pain Scale: Adult kc6 ED Course: 08:54 Patient arrived in ED. mg5 08:54 Ana Paula Simon FNP-C is PHCP. kb 08:54 Best Paniagua MD is Attending Physician. kb 09:01 Triage completed. iw 09:01 Arm band placed on. iw 09:03 Inserted saline lock: 20 gauge in right antecubital area, using aseptic technique. db Blood collected. 09:03 Initial lab(s) drawn, by me, sent to lab. db 09:08 Svetlana Rowe, MARCIA is Primary Nurse. iw 09:12 Patient has correct armband on for positive identification. Bed in low position. Call kc6 light in reach. Side rails up X2. Adult w/ patient. 09:54 Inserted saline lock: 20 gauge in left antecubital area, using aseptic technique. Blood kc6 collected. 10:12 US Abdomen Limited In Process Unspecified. EDMS 10:20 Served as a conference service coordinator during rectal exam. kc6 10:22 Rima Chan, MARCIA is Primary Nurse. kc6 10:54 Radiology exam delayed due to test not completed at this time. mw3 11:46 CT Abd/Pelvis - IV Contrast Only In Process Unspecified. EDMS 12:10 Inserted saline lock: 20 gauge in right hand, using aseptic technique. ,using aseptic kc6 technique. placed by MARCIA Russell Blood collected. 12:35 initiated a transfer with [facility] from the [facility]. eb 13:[address] Jacques the hospitalist airborne operations superintendent for [facility] with Ana Paula Chaves for eb patient transfer consultation. 14:27 ADMINISTRATIVE APPROVAL GIVEN BY PONCE RAMIREZ/ PATIENT HAS BEEN ACCEPTED TO [facility] RM [id number]/ DR. MAYNOR TORRES HAS ACCEPTED THE PATIENT IN TRANSFER/ REPORT TO BE CALLED TO [phone]. 16:58 Patient transferred, IV remains in place. kc6 Administered Medications: 09:09 Drug: NS 0.9% IV 1000 ml Route: IV; Rate: 1 bolus; Site: right antecubital; iw 11:01 Follow up: Response: No adverse reaction; IV Status: Completed infusion; IV Intake: kc6 1000ml 09:09 Drug: Famotidine IVP 20 mg Route: IVP; Site: right antecubital; iw 10:23 Follow up: Response: No adverse reaction kc6 09:09 Drug: TORadol - Ketorolac IVP 15 mg Route: IVP; Site: right antecubital; iw 10:22 Follow up: Response: No adverse reaction; Pain is unchanged, physician notified kc6 09:09 Drug: Ondansetron IVP 4 mg Route: IVP; Site: right antecubital; iw 10:22 Follow up: Response: No adverse reaction; Nausea is decreased kc6 10:07 Drug: morphine IVP or IV 4 mg Route: IVP; Infused Over: 4 mins; Site: right antecubital;kc6 10:34 Follow up: Response: No adverse reaction; Pain is decreased; RASS: Alert and Calm (0) kc6 10:30 Drug: Pantoprazole IVP 80 mg Route: IVP; Site: right antecubital; kc6 11:23 Follow up: Response: No adverse reaction kc6 10:30 Drug: metroNIDAZOLE IVPB 500 mg Volume: 100 ml; Route: IVPB; Rate: 200 ml/hr; Infused kc6 Over: 30 mins; Site: right antecubital; 12:11 Follow up: Response: No adverse reaction; IV Status: Completed infusion; IV Intake: kc6 100ml 10:45 Drug: Ciprofloxacin IVPB 400 mg Volume: 200 ml; Route: IVPB; Infused Over: 60 mins; kc6 Site: right antecubital; 13:48 Follow up: Response: No adverse reaction; IV Status: Completed infusion; IV Intake: kc6 200ml 10:59 Drug: Pantoprazole IV 8 mg/hr Route: IV; Rate: 25 ml/hr; Site: left antecubital; kc6 15:09 Follow up: Response: No adverse reaction; IV Status: Infusion continued upon transfer; kc6 IV Intake: 250ml 14:50 Drug: Acetaminophen PO 1000 mg Route: PO; kc6 15:48 Follow up: Response: No adverse reaction; Pain is decreased kc6 Medication: 16:58 VIS not applicable for this client. kc6 Intake: 11:01 IV: 1000ml; Total: 1000ml. kc6 12:11 IV: 100ml; Total: 1100ml. kc6 13:48 IV: 200ml; Total: 1300ml. kc6 15:09 IV: 250ml; Total: 1550ml. kc6 Outcome: 14:00 ER care complete, transfer ordered by MD. goodman 16:58 Transferred by ground EMS to [facility], Transfer form completed. kc6 Note: report called to MARCIA Cordova 16:58 Condition: improved 16:58 Instructed on the need for transfer. 16:59 Patient left the ED. kc6 Signatures: Dispatcher [employer] EDMS Ana Paula Simon, CLERICAL GRADER-C CLERICAL GRADER-CkSvetlana Rojas, RN RN iw Guera Ling Michelle mw3 Rima Chan RN RN kc6 Vickie Avila, RN RN Kelly Miranda mg5 Drew Stevens, RN RN dd1 Corrections: (The following items were deleted from the chart) 09:05 09:01 Acuity: JEREMIAH 2 [facility] 10:07 09:11 GI: Abdomen is round non-distended, Bowel sounds present X 4 quads. Abd is soft X kc6 4 quads Abdomen is tender to palpation in right lower quadrant and left upper quadrant and right upper quadrant Reports diarrhea, nausea, vomiting, kc6
[2023-01-15] MEDS ORDERED: ACETAMINOPHEN 500 MG TAB ONE (14:56)
[2023-01-15 17:15] VITALS: O2SAT 100
[2023-01-15 17:22] VITALS: BP 133/78; TEMP 98.6
--- NOTE | 2023-01-17 13:06 | EKG ---
Test Date: 2023-01-15 Test Time: 09:41:34 Food Counter Worker: ELEUTERIO MEASUREMENT RESULTS: Intervals: Rate: 100 MO: 130 QRSD: 78 QT: 368 QTc: 474 [place]: P: 69 MO: 130 QRS: 80 T: 19 INTERPRETIVE STATEMENTS: Normal sinus rhythm Normal ECG Compared to ECG 09/03/2022 23:27:27 No significant changes Electronically Signed On 01-17-23 13:04:55 CDT by Ramo Jaramillo
== END 2023-01-15 16:59 | disposition short-term general hospital (02) ==
LOC: ER 08:51
PROC: 30233N1 Transfusion of Nonautologous Red Blood Cells into Peripheral Vein, Percutaneous Approach (ICD-10-PCS; principal; 2023-01-15)
DX: D64.9 Anemia, unspecified (principal); R10.11 Right upper quadrant pain; Z72.0 Tobacco use
CPT/HCPCS: 93005; 87040 ×2; 85025 ×2; 81001; 36415; 86900; 86850; 81025; 85610; 86901; 83605; 85730; 86920 ×2; 83690; 80053; 74177; 76705; 99285; 36430; Q9967; C9113 ×2; J2405; J0744; P9016 ×2; J7050 ×2; J7030

== ENCOUNTER 2023-12-12 12:07 | Emergency (ER) | payer BC, OTHER ==
[2023-12-12] MEDS ORDERED: NA CHLORIDE 0.9% 1,000 ML ONE (12:46)
[2023-12-12] MEDS ORDERED: METOCLOPRAMIDE 10 MG/2mL INJ ONE (12:46)
[2023-12-12 13:16] LABS: Absolute Basophils 0.1 K/uL (0-0.5); Absolute Eosinophils 0.5 K/uL (0-0.5); Absolute Lymphocytes (CBC) 2.3 K/uL (0.7-4.9); Absolute Monocytes 0.7 K/uL (0.1-1.3); Absolute Neutrophil 6.1 K/uL (1.8-8.0); Basophils % 0.6 % (0-1.3); Eosinophils % 4.9 % (0-4.4); Hematocrit 42.1 % (36.0-45.0); Hemoglobin 14.2 g/dL (12.0-15.0); Lymphocytes % 24.1 % (15.3-44.8); MCH 31.9 pg (27.0-35.0); MCHC 33.8 g/dL (32.0-36.0); MCV 94.3 fL (80-100); MPV 8.4 fL (7.6-11.3); Monocytes % 7.6 % (3.3-12.3); Neutrophils % 62.8 % (41.7-73.7); Nucleated Red Blood Cells % 0.4 % (0-0); Platelets 378 thou/uL (152-406); RBC Red Blood Cell Count 4.46 M/uL (3.86-4.86); Red Cell Distribution Width 13.4 % (12.1-15.2)
[2023-12-12 13:17] LABS: Specific Gravity 1.027 (1.005-1.030); Urine Bacteria None Seen /HPF (<20); Urine Bilirubin NEGATIVE (Negative); Urine Blood Negative (Negative); Urine Clarity Extremely Turbid (Clear); Urine Color Yellow (Yellow); Urine Culture Reflex Order NOT NEEDED; Urine Glucose NEGATIVE (Negative); Urine Ketones NEGATIVE (Negative); Urine Micro Reflex YN NO BILL MICROSCOPIC; Urine Mucus Slight /HPF (None Seen); Urine Nitrite NEGATIVE (Negative); Urine Protein TRACE (Negative); Urine RBC <5 /HPF (None Seen); Urine Urobilinogen Normal (Normal); Urine WBC <5 /HPF (<5)
[2023-12-12 13:40] LABS: Albumin 3.8 g/dL (3.4-5.0); Albumin/Globulin Ratio 1.1 (1.1-1.8); Bilirubin Total 0.5 mg/dL (0.2-1.0); Globulin 3.5 g/dL (2.3-3.5); Protein, Total 7.3 g/dL (6.4-8.2)
--- NOTE | 2023-12-12 13:55 | RAD REPORT ---
EXAM DESCRIPTION: CT - Chest Abdomen Pelvis W Cont - 12/12/2023 1:43 pm CLINICAL HISTORY: Chest and abdomen pain. Chest pain;Abdominal distention COMPARISON: <Comparisons> TECHNIQUE: Approximately 100 mL nonionic IV contrast was administered to the patient. All CT scans are performed using dose optimization technique as appropriate and may include automated exposure control or mA/KV adjustment according to patient size. FINDINGS: The lungs are clear.No pleural or pericardial effusion.No intrathoracic adenopathy.Clips a re present distal stomach region. The liver, spleen, pancreas, adrenal glands and kidneys are within normal limits. No bowel obstruction, free air, free fluid or abscess. Normal appendix. No pathologic lymphadenopath y in the abdomen or pelvis. 8 cm right adnexal cystic mass with septations present appearing essentia lly unchanged since 01/15/2023. Presumably this is ovarian mass. No worrisome osseous finding. IMPRESSION: No acute abnormality is discerned. Stable 8 cm right adnexal mass presumably an ovarian cystic mass.
--- NOTE | 2023-12-12 15:39 | RAD REPORT ---
EXAM DESCRIPTION: US - Transvaginal Study Probe - 12/12/2023 2:32 pm CLINICAL HISTORY: ABD PAIN Pelvic pain. COMPARISON: Transvaginal Study Probe dated 12/03/2021; Chest Abdomen Pelvis W Cont dated 12/12/2023 FINDINGS: The uterus is normal in size, shape and echotexture. The uterus measures 9.2 x 4.8 x 3.9 c m. The endometrial stripe measures 6 mm, normal. Both ovaries are normal in size, shape and echotexture. There is a large right ovarian or adnexal le sangeetha present measuring 8.0 x 6.0 cm with low-level internal echoes. This would favor endometrioma or hemorrhagic cyst. Normal Doppler flow seen of the right ovary. Left ovary is normal in size with normal Doppler flow. No significant pelvic ascites. IMPRESSION: 8 cm right ovarian/adnexal lesion is present favored to represent an endometrioma or hem orrhagic cyst.
--- NOTE | 2023-12-12 16:00 | EDPHYS ---
Physician Documentation [facility] Name: Jaye Pérez Age: 33 yrs Sex: Female : 1990 Arrival Date: 12/12/2023 Time: 12:07 Bed 7 Private MD: ED Physician Santos Majano HPI: 12/11 12:29 This 33 yrs old Female presents to ER via Ambulatory with complaints of Abdominal Pain, sb4 Nausea/Vomiting/Diarrhea. 12:29 The patient presents with abdominal pain in the lower abdomen, in the right upper sb4 quadrant. Onset: The symptoms/episode began/occurred yesterday. The symptoms do not radiate. Associated signs and symptoms: Pertinent positives: nausea, vomiting, and diarrhea. 12:30 The patient has experienced similar episodes in the past, a few times. The patient has sb4 not recently seen a physician. 12:32 patient with history of bleeding ulcers. reports n/v/d/abd pain x 1 day. denies sb4 hematemesis. states stool has been darker than usual but she does take daily iron supplements. takes omeprazole and pepcid daily. Historical: - Allergies: 12:12 NKDA; ll1 12:12 Red Dye; ll1 - PMHx: 12:12 Asthma; bronchitis/asthma; GERD; PUD; ovarian cysts; ll1 - PSHx: 12:12 Dentures; ovarian cyst removed; Tonsillectomy; cauterized artery; ll1 - Immunization history:: Adult Immunizations up to date. - Infectious Disease History:: Denies. - Social history:: Smoking status: Patient reports the use of cigarette tobacco products, smokes one-half pack cigarettes per day. ROS: 12:30 Constitutional: Negative for fever, chills, and weight loss, sb4 12:30 Abdomen/GI: Positive for abdominal pain, nausea, vomiting, and diarrhea, 12:30 All other systems are negative, Exam: 12:30 Constitutional: This is a well developed, well nourished patient who is awake, alert, sb4 and in no acute distress. Head/Face: Normocephalic, atraumatic. Eyes: Extra-ocular motions intact. Periorbital areas with no swelling, redness, or edema. ENT: Mucous membranes moist. Cardiovascular: Regular rate and rhythm with a normal S1 and S2. Respiratory: Lungs have equal breath sounds bilaterally, clear to auscultation and percussion. No rales, rhonchi or wheezes noted. No increased work of breathing, no retractions or nasal flaring. Skin: Warm, dry with normal turgor. Normal color with no rashes, no lesions, and no evidence of cellulitis. MS/ Extremity: Pulses equal, no cyanosis. Neurovascular intact. Full, normal range of motion. 12:30 Abdomen/GI: Inspection: abdomen appears normal, Bowel sounds: normal, Palpation: soft, mild abdominal tenderness, in the right upper quadrant, voluntary guarding, is elicited in the right upper quadrant, Vital Signs: 12:13 BP 144 / 79; Pulse 87; Resp 17; Temp 97.9; Pulse Ox 97% ; Weight 90.72 kg; Height 5 ft. ph 4 in. ; Pain 7/10; 12:31 BP 128 / 90; Pulse 85; Resp 16; Temp 98.2; Pulse Ox 98% on R/A; Pain 7/10; al5 15:13 Pulse 77; Resp 16 S; Pulse Ox 97% on R/A; kc6 12:13 Body Mass Index 34.33 (90.72 kg, 162.56 cm) ph 12:13 Pain Scale: Adult ph 12:31 Pain Scale: Adult al5 MDM: 12:12 Patient medically screened. sb4 16:00 Data reviewed: vital signs, nurses notes, lab test result(s), radiologic studies, and sb4 as a result, I will discharge patient. Counseling: I had a detailed discussion with the patient and/or guardian regarding the historical points, exam findings, and any diagnostic results supporting the discharge/admit diagnosis, lab results, radiology results, to return to the emergency department if symptoms worsen or persist or if there are any questions or concerns that arise at home. 12/11 12:28 Order name: CBC with Diff; Complete Time: 13:18 sb4 12/11 12:28 Order name: CMP; Complete Time: 13:41 sb4 12/11 12:28 Order name: Lipase; Complete Time: 13:41 sb4 12/11 12:28 Order name: Type And Screen; Complete Time: 13:44 sb4 12/11 12:28 Order name: UAM; Complete Time: 13:18 sb4 12/11 12:28 Order name: Test, Urine; Complete Time: 13:18 sb4 12/11 12:28 Order name: CT Chest, Abdomen, Pelvis - W/Contrast; Complete Time: 14:00 sb4 12/11 14:00 Order name: Transvaginal Study (probe); Complete Time: 15:42 sb4 12/11 12:28 Order name: IV Saline Lock; Complete Time: 12:44 sb4 12/11 12:28 Order name: Labs collected and sent; Complete Time: 12:44 sb4 Administered Medications: 12:55 Drug: NS 0.9% IV 1000 ml IV at 1 bolus Per protocol; 1000 mL bolus Route: IV; Rate: 1 al5 bolus; Site: left antecubital; 16:47 Follow up: Response: No adverse reaction; IV Status: Completed infusion; IV Intake: kc6 1000ml 12:55 Drug: metoCLOPramide IVP 10 mg IVP once; over 1 to 2 minutes Route: IVP; Site: left al5 antecubital; 16:46 Follow up: Response: No adverse reaction; Nausea is decreased kc6 Disposition: 13:07 I was immediately available on-site in the Emergency Department for consultation in the ms3 care of the patient. Disposition Summary: 12/12/23 15:59 Discharge Ordered Notes: Location: Home sb4 Problem: new sb4 Symptoms: have improved sb4 Condition: Stable sb4 Diagnosis - Other ovarian cysts sb4 - Nausea with vomiting, unspecified sb4 Followup: sb4 - With: Shelby Snell MD - When: As needed - Reason: Recheck today's complaints, Re-evaluation by your physician Discharge Instructions: - Discharge Summary Sheet sb4 - Nausea and Vomiting, Adult sb4 - Ovarian Cyst, [id number] sb4 Forms: - Work release form kc6 - Patient Portal Instructions sb4 - Leadership Thank You Letter sb4 Signatures: Dispatcher [employer] Shadi Trejo RN RN ll1 Santos Majano DO DO ms3 Sherri Lockett PAKennedyC PACorinna sb4 Vicenta Mendoza RN RN al5 Rima Chan RN kc6 Corrections: (The following items were deleted from the chart) 14:00 14:00 Transvaginal Study (Probe)+[email or web address] ordered. EDMS EDMS
--- NOTE | 2023-12-12 16:00 | ER ---
Nurse's Notes [facility] Name: Jaye Pérez Age: 33 yrs Sex: Female : 1990 Arrival Date: 12/12/2023 Time: 12:07 Bed 7 Private MD: Diagnosis: Other ovarian cysts;Nausea with vomiting, unspecified Presentation: 12/11 12:13 Chief complaint: Patient states: N/V/D with abdominal pain since Tuesday evening. ll1 Coronavirus screen: Client denies travel out of the [place] in the last 14 days. At this time, the client does not indicate any symptoms associated with coronavirus-19. Ebola Screen: Patient denies travel to an Ebola-affected area in the 21 days before illness onset. Initial Sepsis Screen: Does the patient meet any 2 criteria? No. Patient's initial sepsis screen is negative. Does the patient have a suspected source of infection? No. Patient's initial sepsis screen is negative. Risk Assessment: Do you want to hurt yourself or someone else? Patient reports no desire to harm self or others. Onset of symptoms was December 10, 2023. 12:13 Method Of Arrival: Ambulatory ll1 12:13 Acuity: JEREMIAH 3 ll1 Triage Assessment: 12:13 General: Appears uncomfortable, Behavior is calm, cooperative, appropriate for age. ll1 Pain: Complains of pain in abdomen. GI: Reports lower abdominal pain, upper abdominal pain, cramping, diarrhea, nausea, vomiting. Historical: - Allergies: 12:12 NKDA; ll1 12:12 Red Dye; ll1 - PMHx: 12:12 Asthma; bronchitis/asthma; GERD; PUD; ovarian cysts; ll1 - PSHx: 12:12 Dentures; ovarian cyst removed; Tonsillectomy; cauterized artery; ll1 - Immunization history:: Adult Immunizations up to date. - Infectious Disease History:: Denies. - Social history:: Smoking status: Patient reports the use of cigarette tobacco products, smokes one-half pack cigarettes per day. Screenin:32 [facility] ED Fall Risk Assessment (Adult) History of falling in the last 3 months, al5 including since admission No falls in past 3 months (0 pts) Confusion or Disorientation No (0 pts) Intoxicated or Sedated No (0 pts) Impaired Gait No (0 pts) Mobility Assist Device Used No (0 pt) Altered Elimination No (0 pt) Score/Fall Risk Level 0 - 2 = Low Risk Oriented to surroundings, Maintained a safe environment, Hourly rounding (assess needs \T\ fall precautionary measures) done. Abuse screen: Denies threats or abuse. Denies injuries from another. Nutritional screening: No deficits noted. Tuberculosis screening: No symptoms or risk factors identified. Assessment: 12:27 General: Appears in no apparent distress. Behavior is calm, cooperative. Pain: al5 Complains of pain in right upper quadrant and right lower quadrant Pain radiates to posterior aspect of right lateral abdomen and anterior aspect of right lateral abdomen. Neuro: Level of Consciousness is awake, alert, obeys commands, Oriented to person, place, time, situation, Gait is steady, Speech is normal, Facial symmetry appears normal. Cardiovascular: No deficits noted. Patient's skin is warm and dry. Rhythm is sinus rhythm. Respiratory: No deficits noted. Airway is patent Trachea midline Respiratory effort is even, unlabored, Respiratory pattern is regular, symmetrical. GI: Abdomen is flat, Abd is soft X 4 quads Abdomen is tender to palpation in right upper quadrant and right lower quadrant Reports lower abdominal pain, upper abdominal pain, bloating, diarrhea, nausea, Pain is 7 out of 10 on a pain scale. vomiting. : No deficits noted. No signs and/or symptoms were reported regarding the genitourinary system. EENT: No deficits noted. No signs and/or symptoms were reported regarding the EENT system. Derm: No deficits noted. No signs and/or symptoms reported regarding the dermatologic system. Skin is intact, Skin is dry, Skin is pink, warm \T\ dry. normal, Skin temperature is warm. Musculoskeletal: No deficits noted. No signs and/or symptoms reported regarding the musculoskeletal system. 13:27 Reassessment: Patient appears in no apparent distress at this time. No changes from kc6 previously documented assessment. Patient and/or family updated on plan of care and expected duration. Pain level reassessed. Patient is alert, oriented x 3, equal unlabored respirations, skin warm/dry/pink. 14:27 Reassessment: Patient appears in no apparent distress at this time. No changes from kc6 previously documented assessment. Patient and/or family updated on plan of care and expected duration. Pain level reassessed. Patient is alert, oriented x 3, equal unlabored respirations, skin warm/dry/pink. 16:47 Reassessment: Patient appears in no apparent distress at this time. No changes from kc6 previously documented assessment. Patient and/or family updated on plan of care and expected duration. Pain level reassessed. Patient is alert, oriented x 3, equal unlabored respirations, skin warm/dry/pink. Vital Signs: 12:13 BP 144 / 79; Pulse 87; Resp 17; Temp 97.9; Pulse Ox 97% ; Weight 90.72 kg; Height 5 ft. ph 4 in. ; Pain 7/10; 12:31 BP 128 / 90; Pulse 85; Resp 16; Temp 98.2; Pulse Ox 98% on R/A; Pain 7/10; al5 15:13 Pulse 77; Resp 16 S; Pulse Ox 97% on R/A; kc6 12:13 Body Mass Index 34.33 (90.72 kg, 162.56 cm) ph 12:13 Pain Scale: Adult ph 12:31 Pain Scale: Adult al5 ED Course: 12:10 Patient arrived in ED. mg5 12:10 Sherri Lockett PA-C is PHCP. sb4 12:10 Santos Majano DO is Attending Physician. sb4 12:14 Triage completed. ll1 12:14 Arm band placed on Patient placed in an exam room, on a stretcher. ll1 12:32 Patient has correct armband on for positive identification. Bed in low position. Call al5 light in reach. Side rails up X 1. 12:32 No provider procedures requiring assistance completed. al5 12:44 CBC with Diff Sent. al5 12:44 CMP Sent. al5 12:44 Lipase Sent. al5 12:44 Type And Screen Sent. al5 12:44 Initial lab(s) drawn, by sd, sent to lab. Inserted saline lock: 20 gauge in left al5 antecubital area, using aseptic technique. 12:50 Vicenta Mendoza, MARCIA is Primary Nurse. al5 12:55 Test, Urine Sent. al5 12:55 UAM Sent. al5 13:09 Tia Gregory, RN is Primary Nurse. ph 13:44 CT Chest, Abdomen, Pelvis - W/Contrast In Process Unspecified. EDMS 14:34 Transvaginal Study (probe) In Process Unspecified. EDMS 15:59 Shelby Snell MD is Referral Physician. sb4 16:47 IV discontinued, intact, bleeding controlled, No redness/swelling at site. Pressure kc6 dressing applied. Administered Medications: 12:55 Drug: NS 0.9% IV 1000 ml IV at 1 bolus Per protocol; 1000 mL bolus Route: IV; Rate: 1 al5 bolus; Site: left antecubital; 16:47 Follow up: Response: No adverse reaction; IV Status: Completed infusion; IV Intake: kc6 1000ml 12:55 Drug: metoCLOPramide IVP 10 mg IVP once; over 1 to 2 minutes Route: IVP; Site: left al5 antecubital; 16:46 Follow up: Response: No adverse reaction; Nausea is decreased kc6 Medication: 16:47 VIS not applicable for this client. kc6 Intake: 16:47 IV: 1000ml; Total: 1000ml. kc6 Outcome: 15:59 Discharge ordered by MD. sb4 16:47 Discharged to home ambulatory, kc6 16:47 Condition: good 16:47 Discharge instructions given to patient, Instructed on discharge instructions, follow up and referral plans. Demonstrated understanding of instructions, follow-up care, 16:47 Patient left the ED. kc6 Signatures: Dispatcher [employer] EDTN Tia Gregory RN RN Shadi Dominguez RN RN ll1 Rima Chan RN RN kc6 Sherri Lockett, PA-C PA-C [id number] Kelly Miranda 5 Vicenta Mendoza RN RN al5 Corrections: (The following items were deleted from the chart) 12:17 12:13 BP 144 / 79; Pulse 87bpm; Resp 17bpm; Pulse Ox 97%; 90.72 kg; Height 5 ft. 4 in.; ph BMI: 34.3; Pain 7/10, Adult; ll1
[2023-12-12 17:51] VITALS: BP 128/90; TEMP 98.2; O2SAT 97
== END 2023-12-12 16:47 | disposition home or self-care (01) ==
LOC: ER 12:07
DX: N83.299 Other ovarian cyst, unspecified side (principal); R11.2 Nausea with vomiting, unspecified; F17.210 Nicotine dependence, cigarettes, uncomplicated; Z91.02 Food additives allergy status
CPT/HCPCS: 96361; 85025; 81001; 36415; 86900; 86850; 81025; 86901; 83690; 80053; 71260; 74177; 76830; 96374; 99284; Q9967; J2765; J7030

== ENCOUNTER 2024-04-13 15:02 | Inpatient (IN) | payer BC ==
[2024-04-13] MEDS ORDERED: ONDANSETRON 4 MG/2 ML VIAL ONE (17:41)
[2024-04-13] MEDS ORDERED: NA CHLORIDE 0.9% 1,000 ML ONE (17:41)
[2024-04-13] MEDS ORDERED: MORPHINE 4 MG/ML SYR ONE (17:41)
[2024-04-13 18:08] LABS: Specific Gravity 1.009 (1.005-1.030)
[2024-04-13 18:10] LABS: Urine Bacteria <20 /HPF (<20); Urine Crystals Unidentified Few /HPF (None Seen); Urine Culture Reflex Order NOT NEEDED; Urine RBC <5 /HPF (None Seen); Urine WBC <5 /HPF (<5); Urine WBC Clump Rare /HPF (None Seen); Urine Yeast (Budding) Trace /HPF (None Seen)
[2024-04-13 18:12] LABS: Specific Gravity 1.009 (1.005-1.030); Urine Bilirubin NEGATIVE (Negative); Urine Blood 3+ (Negative); Urine Clarity Extremely Turbid (Clear); Urine Color Light-Yellow (Yellow); Urine Glucose NEGATIVE (Negative); Urine Ketones TRACE (Negative); Urine Microscopic Reflex YN NO UMIC; Urine Nitrite NEGATIVE (Negative); Urine Protein NEGATIVE (Negative); Urine Urobilinogen Normal (Normal)
[2024-04-13 18:22] LABS: Absolute Basophils 0.1 K/uL (0-0.5); Absolute Eosinophils 0.3 K/uL (0-0.5); Absolute Lymphocytes (CBC) 3.4 K/uL (0.7-4.9); Absolute Neutrophil 8.3 K/uL (1.8-8.0); Basophils % 0.7 % (0-1.3); Eosinophils % 2.4 % (0-4.4); Hematocrit 44.3 % (36.0-45.0); Lymphocytes % 25.8 % (15.3-44.8); MCH 31.7 pg (27.0-35.0); MCHC 33.8 g/dL (32.0-36.0); MCV 93.8 fL (80-100); Monocytes % 7.6 % (3.3-12.3); Neutrophils % 63.5 % (41.7-73.7); Nucleated Red Blood Cells % 0.1 % (0-0); Platelets 366 thou/uL (152-406); RBC Red Blood Cell Count 4.72 M/uL (3.86-4.86); Red Cell Distribution Width 13.2 % (12.1-15.2)
[2024-04-13 18:25] LABS: Albumin 4.3 g/dL (3.4-5.0); Anion Gap 10.1 mEq/L (5.0-15.0); Bilirubin Total 0.5 mg/dL (0.2-1.0); Globulin 4.3 g/dL (2.3-3.5); Potassium 4.1 mEq/L (3.5-5.1); Protein, Total 8.6 g/dL (6.4-8.2)
[2024-04-13] MEDS ORDERED: HYDROMORPHONE HCL 1 MG/ML INJ ONE ×2 (18:41→23:01)
--- NOTE | 2024-04-13 19:24 | RAD REPORT ---
EXAMINATION: CT ABDOMEN AND PELVIS WITH CONTRAST CLINICAL INDICATION: Female, 34 years old.ABD PAIN TECHNIQUE: CT abdomen and pelvis was performed, after the administration of IV contrast, as per depar tment protocol. Axial, sagittal and coronal reconstructions were obtained. One or more of the following dose reduction techniques were used: Automated exposure control, adjustment of the mA and/o r kV according to patient size, and/or iterative reconstruction. Unless otherwise specified, incidental findings do not require dedicated imaging follow-up. [id number]. COMPARISON: 12/12/2023 FINDINGS: LOWER CHEST: Mild circumferential thickening distal esophagus which could reflect mild esophagitis. LIVER: Normal in size and contour. No focal lesion. GALLBLADDER/BILE DUCT: No biliary ductal dilatation.? PANCREAS: No significant abnormality. SPLEEN: Normal size. No focal lesion. ADRENALS: Normal; no mass. KIDNEYS AND URETERS: Normal size and contour. No hydronephrosis. GASTROINTESTINAL TRACT: Stomach is non-dilated. Small bowel has normal course and caliber. No colonic wall thickening or pericolonic inflammatory changes. Embolization coils along the lower margin of the gastric antrum. PERITONEUM: No ascites. LYMPH NODES: No lymphadenopathy. ABDOMINAL AORTA AND OTHER VESSELS: Normal caliber aorta and IVC. URINARY BLADDER: Normal contour. REPRODUCTIVE ORGANS: Complex right adnexal structure measuring 5.6 x 3.4 cm. MUSCULOSKELETAL: No acute or suspicious osseous abnormality. ADDITIONAL FINDINGS: None. IMPRESSION: Complex cystic right adnexal structure. Reportedly, the patient had an endometrioma and surgical foll owing the most recent comparison from 12/12/23. This could represent either residual/recurrent endometrioma versus a physiologic ovarian cyst (or cysts). Without a post-operative comparison exam o r detailed operative note, differentiating the two may not be possible.
[2024-04-13] MEDS ORDERED: KETOROLAC 30 MG/ML INJ ONE (20:50)
--- NOTE | 2024-04-13 20:53 | RAD REPORT ---
Abdomen Exam Limited: 04/13/2024 8:38 PM CLINICAL HISTORY: ABD PAIN STUDY: Limited right upper quadrant ultrasound of abdomen. COMPARISON: None. FINDINGS: Liver: No significant abnormality. Bile ducts: No intrahepatic or extrahepatic biliary dilatation. Common bile duct measures 3 mm. Gallbladder: Normal. IMPRESSION: Unremarkable exam.
--- NOTE | 2024-04-13 21:40 | RAD REPORT ---
Pelvis Complete CLINICAL INDICATION: Female 34 years old ABD PAIN TECHNIQUE: Real-time ultrasonography of the pelvis was performed. Color and spectral Doppler evaluati on of the ovaries was performed. [id number]. COMPARISON: Same day CT FINDINGS: UTERUS AND CERVIX: The uterus measures 8.2 x 3.5 x 5 cm (cervix to fundus x AP x transverse). The campo sharmin is normal. No masses seen The endometrium is normal,0.6 cm in thickness. Hypoechoic structure in the right adnexa measures 4.3 x 3 x 4.5 cm. Vascular flow present around the periphery. This is presumably the right ovary with a complex cyst versus endometrioma. The former is favored. The left ovary was not visualized. IMPRESSION: Complex cystic structure at the right ovary may represent a hemorrhagic cyst or endometrioma. The for steffi is favored as the patient reportedly had a recent endometrioma resection and it would be unlikely to recur so quickly. Vascular flow is present in the right ovary. Nonvisualized left ovary. Follow-up imaging is suggested in 4-6 weeks.
--- NOTE | 2024-04-13 22:47 | EDPHYS ---
Physician Documentation [facility] Name: Jaye Pérez Age: 34 yrs Sex: Female : 1990 Arrival Date: 04/13/2024 Time: 15:02 Bed 4 Private MD: ED Physician Montrell Li HPI: 04/13 16:25 This 34 yrs old Female presents to ER via Ambulatory with complaints of Post Surgical cp Pain - ABD PAIN. 16:25 The patient presents with abdominal pain in the lower abdomen. Onset: The cp symptoms/episode began/occurred this past Tuesday. 16:25 The symptoms do not radiate. Associated signs and symptoms: Pertinent positives: cp nausea, Pertinent negatives: constipation, diarrhea, fever, vaginal discharge, vomiting. The symptoms are described as constant. Modifying factors: the symptoms are aggravated by movement. Severity of pain: in the emergency department the pain is unchanged despite home interventions. 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 - Infectious Disease History:: Denies. - Social history:: Smoking status: unknown. ROS: 16:30 Abdomen/GI: Positive for abdominal pain, nausea, cp 16:30 Constitutional: HX per hpi cp 16:30 All other systems are negative, Exam: 13:47 ECG was reviewed by the Attending Physician. cp 16:33 Constitutional: The patient appears in no acute distress, alert, awake, non-toxic, well cp developed, well nourished, uncomfortable, 16:33 Head/Face: Normocephalic, atraumatic. cp 16:33 Chest/axilla: Inspection: normal, 16:33 Cardiovascular: Rate: normal, Rhythm: regular, 16:33 Respiratory: the patient does not display signs of respiratory distress, Respirations: normal, no use of accessory muscles, no retractions, labored breathing, is not present, Breath sounds: are clear throughout, no decreased breath sounds, no stridor, no wheezing, 16:33 Abdomen/GI: Inspection: abdomen appears normal, Bowel sounds: active, all quadrants, Palpation: soft, in all quadrants, severe abdominal tenderness, in the right lower quadrant, 16:33 Back: pain, is absent, ROM is normal, 16:33 Neuro: Orientation: to person, place \T\ time. Mentation: is normal, 16:48 ECG was reviewed by the Attending Physician. cp Vital Signs: 15:33 BP 138 / 88; Pulse 86; Resp 20 S; Temp 98.1(O); Pulse Ox 96% on R/A; Weight 92.99 kg aa5 (R); Height 5 ft. 5 in. (R); 17:42 BP 176 / 103; Pulse 80; Pulse Ox 98% on R/A; MAP 118 mmHg; Pain 10/10; tm6 18:35 BP 141 / 86; Pulse 69; Resp 16; Pulse Ox 99% on R/A; ss 19:09 BP 143 / 96; Pulse 80; Resp 17; Temp 98.1; Pulse Ox 97% ; Pain 6/10; bm8 20:18 BP 133 / 90; Pulse 71; Resp 17; Temp 98.1; Pulse Ox 97% ; Pain 6/10; bm8 23:03 BP 142 / 92; Pulse 70; Resp 17; Temp 98; Pulse Ox 97% ; Pain 8/10; bm8 23:46 BP 133 / 84; Pulse 76; Resp 17; Temp 98.1; Pulse Ox 95% ; Pain 6/10; bm8 15:33 Body Mass Index 34.11 (92.99 kg, 165.1 cm) aa5 17:42 Pain Scale: Adult tm6 19:09 Pain Scale: Adult bm8 20:18 Pain Scale: Adult bm8 23:03 Pain Scale: Adult bm8 23:46 Pain Scale: Adult bm8 Mckenzie Coma Score: 19:09 Eye Response: spontaneous(4). Motor Response: obeys commands(6). Verbal Response: bm8 oriented(5). Total: 15. 20:18 Eye Response: spontaneous(4). Motor Response: obeys commands(6). Verbal Response: bm8 oriented(5). Total: 15. 23:03 Eye Response: spontaneous(4). Motor Response: obeys commands(6). Verbal Response: bm8 oriented(5). Total: 15. 23:46 Eye Response: spontaneous(4). Motor Response: obeys commands(6). Verbal Response: bm8 oriented(5). Total: 15. MDM: 15:32 Medical Screening Exam initiated cp 22:50 Data reviewed: vital signs, nurses notes, lab test result(s), radiologic studies, CT cp scan, ultrasound, and as a result, I will admit patient. 22:50 Management of patient was discussed with the following: Assembler Watch Train: DR Snell. 04/13 16:22 Order name: CBC with Diff; Complete Time: 18:23 04/13 18:37 Interpretation: Normal except: WBC 13.10; NEUT A 8.3. 04/13 16:22 Order name: CMP; Complete Time: 18:36 04/13 18:36 Interpretation: Normal except: NA 134; TP 8.6; GLOB 4.3; A/G 1.0. 04/13 16:22 Order name: Lipase; Complete Time: 18:36 04/13 16:22 Order name: Test, Urine; Complete Time: 18:23 04/13 16:22 Order name: Urinalysis w/ reflexes; Complete Time: 18:23 04/13 18:37 Interpretation: Normal except: [facility] Extremely Turbid; UKET TRACE; UBLD 3+; BYST Trace. 04/13 23:22 Order name: Basic Metabolic Panel EDMD 04/13 23:22 Order name: CBC with Automated Diff EDMD 04/13 23:22 Order name: Lactate w/ 2H reflex if indic. EDMD 04/13 23:22 Order name: Liver (Hepatic) Function EDMD 04/13 23:22 Order name: Magnesium EDMS 04/13 23:22 Order name: Phosphorus EDMS 04/13 23:22 Order name: Thyroid Stimulating Hormone EDMS 04/13 23:22 Order name: Urinalysis w/ reflexes EDMS 04/13 23:22 Order name: Lipid Profile EDMS 04/13 23:22 Order name: Lipid Profile EDMS 04/13 23:24 Order name: Stool Culture EDMS 04/13 23:24 Order name: C.difficile GDH Ag EDMS 04/13 23:24 Order name: C.DIFF TOX B QUAL PCR EDMS 04/13 23:26 Order name: Fecal Leukocyte Stain [facility] 04/13 18:25 Order name: CT Abd/Pelvis - IV Contrast Only; Complete Time: 19:27 04/13 19:29 Order name: US Pelvis Complete; Complete Time: 22:04 04/13 19:29 Order name: US Abdomen Limited: gallbladder; Complete Time: 22:04 04/13 22:05 Interpretation: Report reviewed. 04/13 23:22 Order name: CONS Physician Consult [facility] 04/13 16:22 Order name: IV Saline Lock; Complete Time: 18:05 04/13 16:22 Order name: Labs collected and sent; Complete Time: 18:15 cp EC:47 Rate is 68 beats/min. Rhythm is regular. CO interval is normal. QRS interval is normal. cp QT interval is normal. T waves are Inverted in lead aVR. Interpreted by me. Reviewed by me. 16:48 Rate is 75 beats/min. Rhythm is regular. CO interval is normal. QRS interval is normal. cp QT interval is normal. T waves are Inverted in leads III, aVR. Interpreted by me. Reviewed by me. Administered Medications: 18:14 Drug: NS 0.9% IV 1000 ml IV at 1 bolus Per protocol; to be given as a bolus over 60 tm6 minutes Route: IV; Rate: 1 bolus; Site: right antecubital; 23:53 Follow up: Response: No adverse reaction; IV Status: Completed infusion; IV Intake: bm8 1000ml 18:15 Drug: morphine IVP or IV 4 mg IVP once over 4 mins Route: IVP; Infused Over: 4 mins; tm6 Site: right antecubital; 18:44 Follow up: Response: No adverse reaction; Pain is increased tm6 18:15 Drug: Ondansetron IVP 4 mg IVP once; over 2 minutes Route: IVP; Site: right antecubital;tm6 18:44 Follow up: Response: No adverse reaction tm6 18:43 Drug: HYDROmorphone IVP 1 mg IVP once Route: IVP; Site: right antecubital; tm6 20:46 Follow up: Response: No adverse reaction bm8 20:57 Drug: Ketorolac IVP 15 mg IVP once Route: IVP; Site: left antecubital; bm8 23:05 Follow up: Response: No adverse reaction bm8 23:05 Drug: HYDROmorphone IVP 1 mg IVP once Route: IVP; Site: right antecubital; bm8 23:53 Follow up: Response: No adverse reaction bm8 Disposition Summary: 04/13/24 22:47 Hospitalization Ordered Notes: Hospitalization Status: Inpatient Admission cp Provider: Arnold Roman cp Location: Telemetry/MedSur (Inpatient) cp Condition: Stable cp Problem: new cp Symptoms: have improved cp Bed/Room Type: Standard cp Room Assignment: 406(04/13/24 23:28) kl Diagnosis - Right lower quadrant abdominal swelling, mass and lump cp - Elevated white blood cell count cp Forms: - Medication Reconciliation Form cp - SBAR form cp - Leadership Thank You Letter cp Signatures: Dispatcher [employer] Susana Trejo RN RN Nimo Benito RN RN aa5 Montrell Hilton PA PA cp Masterson, Tawney, RN RN tm6 Getachew Mcconnell RN RN bm8 Corrections: (The following items were deleted from the chart) 16:22 16:22 CBC+H.LAB.BRZ ordered. EDMS EDMS 16:22 16:22 COMPREHENSIVE METABOLIC PANEL+C.LAB.BRZ ordered. EDMS EDMS 16:22 16:22 LIPASE+C.LAB.BRZ ordered. EDMS EDMS 16:22 16:22 Test, Urine+UC.LAB.BRZ ordered. EDMS EDMS 16:22 16:22 Urinalysis+U.LAB.BRZ ordered. EDMS EDMS 23:28 22:47 cp kl
--- NOTE | 2024-04-13 22:47 | ER ---
Nurse's Notes [facility] Name: Jaye Pérez Age: 34 yrs Sex: Female : 1990 Arrival Date: 04/13/2024 Time: 15:02 Bed 4 Private MD: Diagnosis: Right lower quadrant abdominal swelling, mass and lump;Elevated white blood cell count Presentation: 04/13 15:33 Chief complaint: Patient states: "I had surgery for endometriosis and they removed some aa5 cyst from ovaries on March 19, I am having abdominal pain since Tuesday evening". Coronavirus screen: At this time, the client does not indicate any symptoms associated with coronavirus-19. Ebola Screen: Patient denies travel to an Ebola-affected area in the 21 days before illness onset. Initial Sepsis Screen: Does the patient meet any 2 criteria? No. Patient's initial sepsis screen is negative. Does the patient have a suspected source of infection? No. Patient's initial sepsis screen is negative. Risk Assessment: Do you want to hurt yourself or someone else? Patient reports no desire to harm self or others. Onset of symptoms was March 2024. 15:33 Acuity: JEREMIAH 3 aa5 15:33 Method Of Arrival: Ambulatory aa5 SERVICE LEARNING COORDINATOR: 23:48 unknown bm8 Historical: - Allergies: 15:33 NKDA; aa5 15:33 Red Dye; aa5 - PMHx: 15:33 Asthma; bronchitis/asthma; GERD; Ovarian cysts; PUD; PUD; aa5 - PSHx: 15:33 cauterized artery; Dentures; ovarian cyst removed; Tonsillectomy; aa5 - Immunization history:: Client reports receiving the 2nd dose of the Covid vaccine. - Infectious Disease History:: Denies. - Social history:: Smoking status: unknown. Screenin:43 [facility] ED Fall Risk Assessment (Adult) History of falling in the last 3 months, tm6 including since admission No falls in past 3 months (0 pts) Confusion or Disorientation No (0 pts) Intoxicated or Sedated No (0 pts) Impaired Gait No (0 pts) Mobility Assist Device Used No (0 pt) Altered Elimination No (0 pt) Score/Fall Risk Level 0 - 2 = Low Risk Oriented to surroundings, Maintained a safe environment, Educated pt \\T\\ family on fall prevention, incl call for assistance when getting out of bed. Abuse screen: Denies threats or abuse. Denies injuries from another. Nutritional screening: No deficits noted. Tuberculosis screening: No symptoms or risk factors identified. Assessment: 17:43 General: Appears distressed, uncomfortable, Behavior is cooperative. Pain: Complains of tm6 pain in right upper quadrant and right lower quadrant Pain currently is 10 out of 10 on a pain scale. Neuro: Level of Consciousness is awake, alert, obeys commands, Oriented to person, place, time, situation. Cardiovascular: Patient's skin is warm and dry. Respiratory: Airway is patent Respiratory effort is even, unlabored, Respiratory pattern is regular, symmetrical. GI: Abdomen is round non-distended, Reports lower abdominal pain, upper abdominal pain, bloating, diarrhea, nausea, Pain is 10 out of 10 on a pain scale. vomiting. : No signs and/or symptoms were reported regarding the genitourinary system. EENT: No signs and/or symptoms were reported regarding the EENT system. Derm: No signs and/or symptoms reported regarding the dermatologic system. Musculoskeletal: No signs and/or symptoms reported regarding the musculoskeletal system. 18:55 Reassessment: Pt back from CT at this time. ss 19:09 Reassessment: Patient appears in no apparent distress at this time. Patient and/or bm8 family updated on plan of care and expected duration. Pain level reassessed. Patient is alert, oriented x 3, equal unlabored respirations, skin warm/dry/pink. Pain: Complains of pain in abdomen Pain currently is 6 out of 10 on a pain scale. GI: Abdomen is round non-distended, Reports lower abdominal pain, upper abdominal pain, bloating, diarrhea, nausea, Pain is 6 out of 10 on a pain scale. vomiting, Patient currently denies. 20:18 Reassessment: Patient appears in no apparent distress at this time. No changes from bm8 previously documented assessment. Patient and/or family updated on plan of care and expected duration. Pain level reassessed. Patient is alert, oriented x 3, equal unlabored respirations, skin warm/dry/pink. 21:04 Reassessment: pt to ultrasound. bm8 23:03 Reassessment: Patient appears in no apparent distress at this time. Patient and/or bm8 family updated on plan of care and expected duration. Pain level reassessed. Patient is alert, oriented x 3, equal unlabored respirations, skin warm/dry/pink. states that the pain is back and asking for something to help with it, provider informed and new orders received. pt to be admitted. Vital Signs: 15:33 BP 138 / 88; Pulse 86; Resp 20 S; Temp 98.1(O); Pulse Ox 96% on R/A; Weight 92.99 kg aa5 (R); Height 5 ft. 5 in. (R); 17:42 BP 176 / 103; Pulse 80; Pulse Ox 98% on R/A; MAP 118 mmHg; Pain 10/10; tm6 18:35 BP 141 / 86; Pulse 69; Resp 16; Pulse Ox 99% on R/A; ss 19:09 BP 143 / 96; Pulse 80; Resp 17; Temp 98.1; Pulse Ox 97% ; Pain 6/10; bm8 20:18 BP 133 / 90; Pulse 71; Resp 17; Temp 98.1; Pulse Ox 97% ; Pain 6/10; bm8 23:03 BP 142 / 92; Pulse 70; Resp 17; Temp 98; Pulse Ox 97% ; Pain 8/10; bm8 23:46 BP 133 / 84; Pulse 76; Resp 17; Temp 98.1; Pulse Ox 95% ; Pain 6/10; bm8 15:33 Body Mass Index 34.11 (92.99 kg, 165.1 cm) aa5 17:42 Pain Scale: Adult tm6 19:09 Pain Scale: Adult bm8 20:18 Pain Scale: Adult bm8 23:03 Pain Scale: Adult bm8 23:46 Pain Scale: Adult bm8 Francois Coma Score: 19:09 Eye Response: spontaneous(4). Motor Response: obeys commands(6). Verbal Response: bm8 oriented(5). Total: 15. 20:18 Eye Response: spontaneous(4). Motor Response: obeys commands(6). Verbal Response: bm8 oriented(5). Total: 15. 23:03 Eye Response: spontaneous(4). Motor Response: obeys commands(6). Verbal Response: bm8 oriented(5). Total: 15. 23:46 Eye Response: spontaneous(4). Motor Response: obeys commands(6). Verbal Response: bm8 oriented(5). Total: 15. ED Course: 15:05 Patient arrived in ED. mg5 15:10 Montrell Hilton PA is PHCP. cp 15:10 Nikita Kendall MD is Attending Physician. cp 15:33 Arm band placed on. aa5 15:34 Triage completed. aa5 17:33 Lisette Balderrama, RN is Primary Nurse. tm6 17:43 Patient has correct armband on for positive identification. Bed in low position. Call tm6 light in reach. Side rails up X 1. Provided Education on: use of call murdock. Client placed on continuous cardiac and pulse oximetry monitoring. NIBP monitoring applied. Pulse ox on. NIBP on. Door closed. Noise minimized. Warm blanket given. Pillow given. 18:05 Inserted saline lock: 20 gauge in right antecubital area, using aseptic technique. em1 Flushed with 10 mL NS. 18:55 CT Abd/Pelvis - IV Contrast Only In Process Unspecified. EDMS 19:09 No provider procedures requiring assistance completed. Patient maintains SpO2 bm8 saturation greater than 95% on room air. 19:27 Era Hutson MD is Attending Physician. cp 20:32 Montrell Li MD is Attending Physician. cp 20:40 US Abdomen Limited: gallbladder In Process Unspecified. EDMS 21:28 US Pelvis Complete In Process Unspecified. EDMS 22:46 Arnold Roman MD is Hospitalizing Provider. cp 23:03 Provided Education on: need for admission. bm8 23:03 Patient admitted, IV remains in place. bm8 23:46 Provided Education on: post er care. bm8 Administered Medications: 18:14 Drug: NS 0.9% IV 1000 ml IV at 1 bolus Per protocol; to be given as a bolus over 60 tm6 minutes Route: IV; Rate: 1 bolus; Site: right antecubital; 23:53 Follow up: Response: No adverse reaction; IV Status: Completed infusion; IV Intake: bm8 1000ml 18:15 Drug: morphine IVP or IV 4 mg IVP once over 4 mins Route: IVP; Infused Over: 4 mins; tm6 Site: right antecubital; 18:44 Follow up: Response: No adverse reaction; Pain is increased tm6 18:15 Drug: Ondansetron IVP 4 mg IVP once; over 2 minutes Route: IVP; Site: right antecubital;tm6 18:44 Follow up: Response: No adverse reaction tm6 18:43 Drug: HYDROmorphone IVP 1 mg IVP once Route: IVP; Site: right antecubital; tm6 20:46 Follow up: Response: No adverse reaction bm8 20:57 Drug: Ketorolac IVP 15 mg IVP once Route: IVP; Site: left antecubital; bm8 23:05 Follow up: Response: No adverse reaction bm8 23:05 Drug: HYDROmorphone IVP 1 mg IVP once Route: IVP; Site: right antecubital; bm8 23:53 Follow up: Response: No adverse reaction bm8 Medication: 17:43 VIS not applicable for this client. tm6 Intake: 23:53 IV: 1000ml; Total: 1000ml. bm8 Outcome: 22:47 Decision to Hospitalize by Provider. cp 23:46 Admitted to Tele accompanied by nurse, via wheelchair, room 406, 8 23:46 Condition: stable 23:46 Instructed on the need for admit, Demonstrated understanding of instructions, follow-up care, medications, 23:54 Patient left the ED. 8 Signatures: Dispatcher [employer] EDMS Edgardo Lara em1 Nimo Pugh, RN RN aa5 Sandra Cardenas, MARCIA RN ss Montrell Hilton, VENUS PA [facility] Lisette Balderrama RN RN 6 Getachew Mcconnell RN RN 8 Corrections: (The following items were deleted from the chart) 15:36 15:33 BP 138 / 88; Pulse 86bpm; Resp 20bpm; Spontaneous; Pulse Ox 96% RA; aa5 aa5 23:48 23:46 Discharged to [place] [id number]
--- NOTE | 2024-04-13 23:30 | P.HP ---
Certification for Inpatient With expected LOS: <2 Midnights <Ericka Garcia - Last Filed: 04/13/24 23:24> Patient History Date of Service: 04/13/24 Reason for admission: abdominal pain History of Present Illness: 34-year-old woman with a past medical history significant for asthma, GERD, and PUD presented to the emergency department complaining of abdominal pain x 4 days. The patient is status post removal of endometrioma on 03/19/[address] Snell. The patient states she had done well postprocedure until this Tuesday. She reports at least 5 episodes of vomiting on Tuesday and 5 episodes of vomiting on Tuesday. Also, she reports nonbloody diarrhea since Tuesday (5+ episodes) but today only had 3 episodes. The patient has been passing flatus, but feels bloated. She has not attempted anything to improve her abdo bolivar pain, vomiting, or diarrhea since onset. Nothing worsens her abdominal pain. The patient denies fever. Home medications list reviewed: Yes - Past Medical/Surgical History Diabetic: No -: peptic ulcers -: gerd -: Asthma -: tonsillectomy -: ovarian cyst removal -: endometrioma removal 03/19/24 Psychosocial/ Personal History: Patient lives at home. She has a significant other. - Social History Smoking Status: Current every day smoker (7 packs/week) Counseled patient to stop smoking for: less than 10 minutes Alcohol use: No CD- Drugs: No Caffeine use: Yes <Ericka Garcia - Last Filed: 04/13/24 23:24> Date of Service: 04/13/24 <Arnold Roman - Last Filed: 04/16/24 13:42> Allergies ciprofloxacin [From Cipro] Adverse Reaction (Intermediate, Verified 12/24/17 11:41) Nausea/Vomiting Home Medications: Albuterol Inhaler [Ventolin Inhaler*] 2 puff IN [id number] PRN 08/06/20 Esomeprazole Magnesium [Nexium 24Hr] 1 tab PO DAILY 12/10/21 Ethinyl Estradiol/Drospirenone [Jo Ann 28 Tablet] 1 each PO DAILY 04/14/24 Famotidine/Ca Carb/Mag Hydrox [Acid Director Of Accounting Complete Tab Chew] 1 each PO BEDTIME 04/14/24 Mv-Min/Iron/Folic/Calcium/Vitk [Women's Multivitamin Tablet] 1 tab PO DAILY 04/14/24 Amox/Clavulanate [Augmentin 875-125 Tab] 875 mg PO BID #24 tab 04/16/24 Ondansetron [Zofran] 4 mg PO Q6H PRN #20 tab 04/16/24 Review of Systems Gastrointestinal: Nausea, Vomiting, Abdominal Pain, Diarrhea <Ericka Garcia Q - Last Filed: 04/13/24 23:24> Physical Examination - Vital Signs Temperature: 98 F Blood Pressure: 142/82 Pulse: 82 Respirations: 18 Pulse Ox (%): 97 - Physical Exam General: Alert, Oriented x3 HEENT: Normocephalic Neck: JVD not distended Respiratory: Clear to auscultation bilaterally Cardiovascular: Regular rate/rhythm, No gallops, No rubs, No murmurs Gastrointestinal: Normal bowel sounds, Distended, Guarding (guarding noted on palpation of b/l upper abd quadrants) Musculoskeletal: No swelling, No tenderness, No warmth Neurological: Normal strength at 5/5 x4 extr, Sensation intact - Studies Laboratory Data (last 24 hrs) 04/13/24 04/13/24 17:52 17:52 WBC 13.10 H Hgb 15.0 Hct 44.3 Plt Count 366 Sodium 134 L Potassium 4.1 BUN 13 Creatinine 0.75 Glucose 99 Total Bilirubin 0.5 AST 23 ALT 30 Alkaline Phosphatase 78 Lipase 67 <Garcia,Ericka Q - Last Filed: 04/13/24 23:24> Assessment and Plan - Problems (Diagnosis) (1) Encounter for smoking cessation counseling Current Visit: Yes Status: Acute (2) Abdominal pain Current Visit: No Status: Acute Qualifiers: Abdominal location: generalized Qualified Code(s): R10.84 - Generalized abdominal pain - Plan Abdominal pain: Dr. Snell consulted IV Zosyn ordered IV Solu-Medrol 40 once ordered C. difficile studies ordered Stool studies ordered IVF ordered Simethicone ordered N.p.o. at midnight diet Smoking cessation: The patient has been counseled on the importance of smoking cessation, especially during the perioperative period. The patient voiced understanding, and all her questions were answered to her satisfaction. - Advance Directives Does patient have a Living Will: No Does patient have a Durable POA for Healthcare: No - Code Status/Comfort Care Code Status Assessed: Yes Code Status: Full Code <Ericka Garcia - Last Filed: 04/13/24 23:24> Date of Service: 04/13/24 Patient was seen and examined. Events of the last 24 hours have been noted. Spoke with with MARIELA regarding patient's clinical picture after evaluating and examining the patient independently. I performed a substantial part of the MDM during this patient's care today. I personally made or approved the documented management plan and acknowledge its risk of complications. I agree with the findings and documentation provided in the MARIELA's notes. Patient admitted by gynecology. Status post surgical intervention for possible endometriosis. Patient's surgery was done at the outside facility. Comes in with complaints of abdominal pain and imaging studies revealed endometrioma versus ovarian cyst. Patient admitted for IV antibiotic therapy. Gynecology to follow patient. <Arnold Roman - Last Filed: 04/16/24 13:42>
[2024-04-14 00:29] VITALS: BMI 26.9
[2024-04-14] MEDS: ONDANSETRON 4 MG (ODT) TAB PO PRN (00:55)
[2024-04-14] MEDS: PIPER TAZO 2.25 GM in NA CHLORIDE 0.9% 50 ML IV SCH ×2 (00:56→08:20)
[2024-04-14] MEDS: SIMETHICONE 80 MG CHEWABLE TAB PO PRN (00:56)
[2024-04-14] MEDS: NA CHLORIDE 0.9% 1,000 ML IV SCH (00:56)
[2024-04-14] MEDS: METHYLPRED NA SUC 40 MG in NA CHLORIDE 0.9% 100 ML IV ONE (00:57)
[2024-04-14 01:04] VITALS: O2SAT 95
[2024-04-14] MEDS: ACETAMINOPHEN 325 MG TABLET PO PRN (01:40)
[2024-04-14] MEDS: ZOLPIDEM TARTRATE 5 MG TABLET PO PRN (04:27)
[2024-04-14] MEDS: FAMOTIDINE 20 MG/2 ML VIAL IV SCH (04:37)
[2024-04-14 06:37] LABS: Absolute Monocytes 0.1 K/uL (0.1-1.3); Absolute Neutrophil 8.5 K/uL (1.8-8.0); Basophils % 0.3 % (0-1.3); Eosinophils % 0.3 % (0-4.4); Hematocrit 42.3 % (36.0-45.0); Hemoglobin 14.5 g/dL (12.0-15.0); Lymphocytes % 10.1 % (15.3-44.8); MCH 31.9 pg (27.0-35.0); MCHC 34.2 g/dL (32.0-36.0); MCV 93.3 fL (80-100); MPV 7.8 fL (7.6-11.3); Neutrophils % 88.3 % (41.7-73.7); Nucleated Red Blood Cells % 0.1 % (0-0); Platelets 356 thou/uL (152-406); RBC Red Blood Cell Count 4.53 M/uL (3.86-4.86); Red Cell Distribution Width 12.9 % (12.1-15.2)
[2024-04-14 06:49] LABS: Albumin 3.5 g/dL (3.4-5.0); Anion Gap 9.3 mEq/L (5.0-15.0); Phosphorus 2.5 mg/dL (2.5-4.9); Potassium 4.3 mEq/L (3.5-5.1)
[2024-04-14 07:01] LABS: ALT/SGPT 26 U/L (13-56); AST/SGOT 18 U/L (15-37); Albumin 3.4 g/dL (3.4-5.0); Albumin/Globulin Ratio 0.9 (1.1-1.8); Alkaline Phosphatase 70 U/L (45-117); Anion Gap 7.2 mEq/L (5.0-15.0); BUN Blood Urea Nitrogen 12 mg/dL (7-18); Bicarbonate 22 mEq/L (21-32); Bilirubin Total 0.5 mg/dL (0.2-1.0); Globulin 3.8 g/dL (2.3-3.5); Glomerular Filtration Rate 108 ml/min (=/>90); Glucose Level 128 mg/dL (74-106); Magnesium 2.2 mg/dL (1.6-2.4); Phosphorus 2.5 mg/dL (2.5-4.9); Potassium 4.2 mEq/L (3.5-5.1); Protein, Total 7.2 g/dL (6.4-8.2); Sodium Level 134 mEq/L (136-145); Thyroid Stimulating Hormone 0.315 uIU/mL (0.358-3.740)
[2024-04-14 07:02] LABS: Bilirubin Direct < 0.2 mg/dL (0-0.2); Bilirubin Indirect, Calculated 0.3 mg/dL (0.2-0.8)
--- NOTE | 2024-04-14 08:01 | P.PN ---
Date of Service: 04/14/24 subjective Admitted with abdominal pain nausea vomiting, patient discussed imaging with Dr. Montes, can start clear liquid diet Review of Systems 10 point review of system negative unless listed in HPI Physical Examination - Vital Signs Reviewed - Physical Exam General: Alert, Oriented x3 HEENT: Normocephalic Neck: JVD not distended Respiratory: Clear to auscultation bilaterally Cardiovascular: Regular rate/rhythm, No gallops, No rubs, No murmurs Gastrointestinal: Normal bowel sounds, Distended, Guarding (guarding noted on palpation of b/l upper abd quadrants) Musculoskeletal: No swelling, No tenderness, No warmth Neurological: Normal strength at 5/5 x4 extr, Sensation intact Assessment and Plan - Problems (Diagnosis) Gastroenteritis Acute right lower quadrant abdominal swelling, mass and lump Postoperative complications from abdominal surgery abdominal endometriosis procedure-5 days postop History of ovarian cyst Leukocytosis Acute abdominal pain Acute nausea vomiting diarrhea Dr. Snell consulted IV Zosyn ordered Stool studies, C. difficile studies ordered IVF ordered, as needed analgesics, as needed antiemetic Advance diet as tolerated, start with full liquid Dr. Montes reviewed CT with patient, think symptoms are gastroenteritis Asthma History of bronchitis As needed nebs, resume home inhalers GERD Peptic ulcer disease Resume home meds Tobacco use encounter for smoking cessation counseling Educated on tobacco cessation Full code DVT SCD Diet n.p.o. Time spent with patient 35-minute
[2024-04-14] MEDS: ENOXAPARIN 40 MG/0.4 ML SQ SCH (08:20)
[2024-04-14 08:41] LABS: Blood Morphology Comment NOT SEEN (NOT SEEN); Platelet Estimate ADEQ; White Blood Cell Scan OK (OK)
[2024-04-14] MEDS: HYDROMORPHONE HCL 0.5 MG/0.5 ML INJ IV PRN (09:28)
[2024-04-14] MEDS ORDERED: SODIUM CHLORIDE 0.9% 10ML INJ IV PRN (11:13)
--- NOTE | 2024-04-14 12:15 | CON ---
Date of Consultation: 04/14/2024 History Of Present Illness: The patient is a 34-year-old 0, status post diagnostic hysteroscopy, diagnostic laparoscopy for right ovarian cyst, endometrioma drainage, and lysis of adhesions from the sigmoid colon where she had nodular endometriosis infiltration to the sigmoid colon with diagnosis of stage IV endometriosis on March 19, 2024, in [place] at the [facility]. The patient has done well in her first 3 weeks of postop and currently since last Tuesday started to have nausea, vomiting as the first symptom and then noticed pain come on as she was vomiting. Reports a lower abdominal pain mostly on the right side. No fever or chills. She also started having diarrhea on the same day and this has progressively continued over the past few days in the intermittent fashion. She was asked to come to the ER for evaluation when she called the office on Tuesday, which is yesterday. Currently, not on her period. No lower urinary tract symptoms. Review of Systems: No upper respiratory tract symptoms like wheezing, acute cough, chest pain, or shortness of breath. She has been using her inhaler without any issues. All other review of systems is mostly negative. Past Medical History: Significant for asthma, allergies, and peptic ulcers. Past Surgical History: Significant for a tonsillectomy, ovarian cyst removal in the past and most recently diagnostic hysteroscopy, diagnostic laparoscopy, left ovarian cystectomy and cyst drainage and lysis of adhesions of the colon from the right ovarian endometrioma. Allergies: CIPROFLOXACIN, HAS NAUSEA AND VOMITING. Home Medications: Albuterol, Cetirizine, esomeprazole, fluticasone, salmeterol inhaler. She has been on postop pain medication and nausea medication, hydrocodone and promethazine. Social History: She is a current smoker, 1 pack per day. No alcohol or other illicit drug use. Physical Examination: Vital Signs: Temperature of 97.6, that is a T-max; heart rate mostly in the 70s; blood pressure 108/66 this morning; and O2 saturation of 96% on room air. Her pain level at 9:30 was 8 and is down to a 1 after being given pain medication. General: The patient has no pallor. Not in any acute distress. Seems anxious and flushed. Head and Neck: Unremarkable. Abdomen: Softly distended, tender, but no rebound. Tenderness is most significant in the right lower quadrant. No palpable mass. Extremities: No edema or calf tenderness. No evidence of any hernia on the abdomen. Neurological: Intact. Psychological: The patient is significantly anxious, but alert, oriented, and has good amount of concentration, but comprehension is normal. Laboratory Data: Her white cell count was 13.1 with a slight left shift at admission yesterday. Then, this morning was 9.6, still with a significant left shift. Her chemistries, her sodium is still at 134, chloride elevated at 108, and glucose is 132. Her liver labs were within normal limits. TSH is very low at 0.3. Her urine was tested yesterday with some blood and trace ketones, nitrite negative. Deferred culture as there were no white cells and nitrites negative. Her CT report shows a 5.6 x 3.4 cm right adnexal complex mass. Then, no other major abnormalities were seen. Images reviewed as well and there is no apparent air bubble in the mass or any enhancement around it, bowel seemed unremarkable in the surrounding area as well. Report mostly c/w this as well Assessment: 1. Pelvic pain 2. Right adnexal mass 3. Leukocytosis 4. diarrhea 5. Asthma 6. Smoker Plan: 1. The patient with right lower quadrant and pelvic pain, most likely either from her pelvic mass that is recurrent, which is an endometrioma. For this, the other differential could be that there is a pelvic abscess. The other tubo- ovarian abscess or a consequence of the dissection from the sigmoid colon leading to a pericolonic abscess. Pain control with medication while we clinically follow patient on iv antibiotics for 24-48 hours 2. As the white cell count was elevated, the patient did not have a fever. Mostly really has GI symptoms of nausea and vomiting with diarrhea. Clostridium difficile toxin is being checked, but she would benefit from a General Surgery consult, which can determine the likelihood of a pelvic abscess from the bowel injury or delayed manifestation of a bowel injury. Dr. Montes has been informed about the consult and we will continue IV antibiotics, Zosyn as ordered for 24-48 hours. Repeat a white cell count tomorrow and clinically follow the patient's pain. Pain medication, clear liquid diet, ambulation, and smoking cessation recommended. We will follow this patient closely. This has been communicated with the primary care team, nurse practitioner. 3. Continue general medical care with asthma and anxiety. Smoking cessation AME/LAVELLE Voice ID: [id number] Report ID: [id number] BILL
[2024-04-14] MEDS: PANTOPRAZOLE 40 MG INJ IVP SCH (12:17)
[2024-04-14] MEDS: ONDANSETRON 4 MG/2 ML VIAL IV PRN (19:17)
[2024-04-15 05:49] LABS: Absolute Eosinophils 0.1 K/uL (0-0.5); Absolute Lymphocytes (CBC) 2.8 K/uL (0.7-4.9); Absolute Monocytes 0.9 K/uL (0.1-1.3); Absolute Neutrophil 8.4 K/uL (1.8-8.0); Basophils % 0.3 % (0-1.3); Eosinophils % 1.1 % (0-4.4); Hemoglobin 13.1 g/dL (12.0-15.0); Lymphocytes % 22.6 % (15.3-44.8); MCH 31.4 pg (27.0-35.0); MCHC 33.5 g/dL (32.0-36.0); MCV 93.6 fL (80-100); MPV 8.2 fL (7.6-11.3); Monocytes % 7.3 % (3.3-12.3); Neutrophils % 68.7 % (41.7-73.7); Platelets 326 thou/uL (152-406); RBC Red Blood Cell Count 4.16 M/uL (3.86-4.86); Red Cell Distribution Width 12.7 % (12.1-15.2)
[2024-04-15] MEDS: METOCLOPRAMIDE 10MG/10ML UCUP PO SCH (06:00)
[2024-04-15 06:02] LABS: Albumin 3.3 g/dL (3.4-5.0); Anion Gap 8.7 mEq/L (5.0-15.0); Phosphorus 2.6 mg/dL (2.5-4.9); Potassium 3.7 mEq/L (3.5-5.1)
--- NOTE | 2024-04-15 06:37 | P.PN ---
Date of Service: 04/15/24 subjective can start clear liquid diet, pain controlled as needed allergy Review of Systems 10 point review of system negative unless listed in HPI Physical Examination - Vital Signs Reviewed - Physical Exam General: Alert, Oriented x3, no acute distress noted HEENT: Normocephalic Neck: JVD not distended Respiratory: Clear to auscultation bilaterally, unlabored Cardiovascular: Regular rate/rhythm, No gallops, No rubs, No murmurs Gastrointestinal: Normal bowel sounds, Distended, epigastric tenderness Musculoskeletal: No swelling, No tenderness, No warmth Neurological: Normal strength at 5/5 x4 extr, Sensation intact Assessment and Plan - Problems (Diagnosis) Gastroenteritis Acute right lower quadrant abdominal swelling, mass and lump Postoperative complications from abdominal surgery abdominal endometriosis procedure-5 days postop History of ovarian cyst Leukocytosis Acute abdominal pain Acute nausea vomiting diarrhea Dr. Snell consulted IV Zosyn ordered Stool studies, C. difficile studies ordered IVF ordered, as needed analgesics, as needed antiemetic Advance diet as tolerated, start with full liquid Dr. Montes reviewed CT with patient, think symptoms are gastroenteritis Asthma stable History of bronchitis stable As needed nebs, resume home inhalers 97% on room air GERD stable Peptic ulcer disease Resume home meds Tobacco use encounter for smoking cessation counseling Educated on tobacco cessation Full code DVT SCD Diet n.p.o. Time spent with patient 35-minute
--- NOTE | 2024-04-15 20:41 | PN ---
Date of Progress Note: 04/15/2024 Hospital day #3. The patient is a 34-year-old with a pelvic mass, recurrent postop from drainage of right adnexal endo metrioma. Admitted with pain, nausea, vomiting, and diarrhea; elevated white count and is being obse rved. Subjective: Pain is much better. Occasional nausea, needed pain medication, once in the last 12 aniya rs. Had a loose bowel movement today. No bowel movements yesterday, passing flatus. No other signi ficant urinary problems on her. Objective: Vital Signs: Temperature of 98.1, blood pressure 133/77, pulse of 64, and saturating 95% on room air with a pain score of 0.4. Voiding well and has been getting Zosyn every 8 hours. General: The patient in no acute distress, lying in her bed with a pillow on her tummy. Abdomen: Soft, nondistended, very minimally tender, significantly improved as compared to yesterday. No rebound. No mass. Extremities: Unremarkable. Pelvic: Not performed. She is improving. Laboratory Data: White count remarkable for a WBC of 12.3 with a neutrophil count of 68% and absolut e neutrophil still at 8.4. Her electrolytes are all within normal limits and her calcium level is sl ightly well, same with albumin. Assessment And Plan: Pelvic pain is subjectively and objectively improved. However, leukocytosis is ongoing. Therefore, continue IV antibiotics for a total of 48 hours followed by switch over to Augm entin for oral antibiotics, on which she will be discharged home tomorrow potentially if she continue s to clinically do better for another 12 days and follow up in the office at 1 week from discharge. Repeat a CBC tomorrow to see the trend of the white cells and then plan any potential change in manag ement. Diarrhea. This is resolved in the number of bowel movements that the patient has had since she has b een in the hospital. However, she still has loose stool when she does move her bowels. The Clostrid [facility] difficile toxin assay, there are no results on this yet. It is pending, so we will continue to malena rodríguez until we have the results. Patient was placed on a low residue diet and is instructed to ambul ate. When she is discharged, we can refer her to Colorectal Surgery after the antibiotics are comple te so that we can plan her future management. If there is a persistent leukocytosis tomorrow, then w e will repeat a CT scan of the abdomen and pelvis with IV and oral contrast before we decide on the m anagement and if there is any potential need for an interventional drain for that collection. AME/LAVELLE Voice ID: [id number] Report ID: [id number]
[2024-04-16 05:46] LABS: Absolute Basophils 0.1 K/uL (0-0.5); Absolute Eosinophils 0.3 K/uL (0-0.5); Absolute Monocytes 0.9 K/uL (0.1-1.3); Absolute Neutrophil 5.8 K/uL (1.8-8.0); Basophils % 0.9 % (0-1.3); Eosinophils % 2.5 % (0-4.4); Hematocrit 38.6 % (36.0-45.0); Hemoglobin 13.4 g/dL (12.0-15.0); Lymphocytes % 30.1 % (15.3-44.8); MCH 32.4 pg (27.0-35.0); MCHC 34.8 g/dL (32.0-36.0); MCV 93.3 fL (80-100); MPV 7.9 fL (7.6-11.3); Monocytes % 8.7 % (3.3-12.3); Neutrophils % 57.8 % (41.7-73.7); Nucleated Red Blood Cells % 0.1 % (0-0); Platelets 325 thou/uL (152-406); RBC Red Blood Cell Count 4.14 M/uL (3.86-4.86); Red Cell Distribution Width 12.9 % (12.1-15.2)
[2024-04-16 06:03] LABS: Albumin 3.3 g/dL (3.4-5.0); Anion Gap 6.8 mEq/L (5.0-15.0); Phosphorus 2.5 mg/dL (2.5-4.9); Potassium 3.8 mEq/L (3.5-5.1)
[2024-04-16 13:21] VITALS: BP 141/73; TEMP 98.2
--- NOTE | 2024-04-16 14:07 | P.DS ---
Admission Date: 04/13/24 Discharge Date: 04/16/24 Disposition: ROUTINE DISCHARGE Discharge Condition: GOOD Reason for Admission: abdominal pain Consultations: Dr. Dunham Brief History of Present Illness: 34-year-old woman with a past medical history significant for asthma, GERD, and PUD presented to the emergency department complaining of abdominal pain x 4 days. The patient is status post removal of endometrioma on 03/19/[address] Dunham. The patient states she had done well postprocedure until this Tuesday. She reports at least 5 episodes of vomiting on Tuesday and 5 episodes of vomiting on Tuesday. Also, she reports nonbloody diarrhea since Tuesday (5+ episodes) but today only had 3 episodes. The patient has been passing flatus, but feels bloated. She has not attempted anything to improve her abdominal pain, vomiting, or diarrhea since onset. Nothing worsens her abdominal pain. The patient denies fever. Hospital Course: Patient aware that we are watching her white blood cell count (down to normal at 10.1), she states she is feeling better but still is very sore, diarrhea has not continued. We discussed need to follow-up with Dr. Dunham in 1 week and she voices understanding. Offered 24 more hours of IV antibiotics, patient states she really needs to get home and feels like she can tolerate oral antibiotics, fluids, and a bland diet. Requests discharge. Vital signs stable. Vital Signs/Physical Exam: Temp Pulse Resp BP Pulse Ox 98.2 F 65 18 141/73 H 97 04/16/24 12:00 04/16/24 12:00 04/16/24 12:00 04/16/24 12:00 04/16/24 12:00 General: Alert, In no apparent distress, Oriented x3 HEENT: Atraumatic, Normocephalic, PERRLA Neck: Supple Respiratory: Clear to auscultation bilaterally Cardiovascular: No edema, Normal pulses Capillary refill: <2 Seconds Gastrointestinal: No ascites, Tenderness (improved but still with some suprapubic tenderness and some right mid abdominal soreness) Musculoskeletal: No clubbing, No swelling Integumentary: No rashes Neurological: Normal speech, Normal affect Lymphatics: No axilla or inguinal lymphadenopathy External genitalia: Deferred Rectal: Deferred Laboratory Data at Discharge: WBC 10.10 thou/uL (4.3-10.9) 04/16/24 05:35 Hgb 13.4 g/dL (12.0-15.0) 04/16/24 05:35 Hct 38.6 % (36.0-45.0) 04/16/24 05:35 Plt Count 325 thou/uL (152-406) 04/16/24 05:35 Sodium 136 mEq/L (136-145) 04/16/24 05:35 Potassium 3.8 mEq/L (3.5-5.1) 04/16/24 05:35 BUN 8 mg/dL (7-18) 04/16/24 05:35 Creatinine 0.70 mg/dL (0.55-1.02) 04/16/24 05:35 Glucose 99 mg/dL (74-106) 04/16/24 05:35 Phosphorus 2.5 mg/dL (2.5-4.9) 04/16/24 05:35 Magnesium 2.2 mg/dL (1.6-2.4) 04/14/24 06:20 Total Bilirubin 0.5 mg/dL (0.2-1.0) 04/14/24 06:20 AST 18 U/L (15-37) 04/14/24 06:20 ALT 26 U/L (13-56) 04/14/24 06:20 Alkaline Phosphatase 70 U/L (45-117) 04/14/24 06:20 Triglycerides 77 mg/dL (<150) 04/14/24 06:20 Cholesterol 193 mg/dL (<200) 04/14/24 06:20 HDL Cholesterol 48 mg/dL (40-60) 04/14/24 06:20 Cholesterol/HDL Ratio 4.02 04/14/24 06:20 Lipase 67 U/L (13-75) 04/13/24 17:52 Home Medications: Albuterol Inhaler [Ventolin Inhaler*] 2 puff IN [id number] PRN 08/06/20 Esomeprazole Magnesium [Nexium 24Hr] 1 tab PO DAILY 12/10/21 Ethinyl Estradiol/Drospirenone [Jo Ann 28 Tablet] 1 each PO DAILY 04/14/24 Famotidine/Ca Carb/Mag Hydrox [[employer] Complete Tab Chew] 1 each PO BEDTIME 04/14/24 Mv-Min/Iron/Folic/Calcium/Vitk [Women's Multivitamin Tablet] 1 tab PO DAILY 04/14/24 Amox/Clavulanate [Augmentin 875-125 Tab] 875 mg PO BID #24 tab 04/16/24 Ondansetron [Zofran] 4 mg PO Q6H PRN #20 tab 04/16/24 New Medications: Amox/Clavulanate [Augmentin 875-125 Tab] 875 mg PO BID #24 tab Ondansetron [Zofran] 4 mg PO Q6H PRN #20 tab PRN Reason: Nausea / Vomiting Physician Discharge Instructions: -DC IV and DC home -Follow-up with PCP in 1 to 2 weeks -Follow-up with GYNECOLOGY, DR. DUNHAM in 1 to 2 weeks -Please call Dr. Roman at [phone] if any questions regarding hospital stay -Please call nursing station at [phone] if any nursing or medication questions -Return to the emergency room if symptoms worsen Diet: Regular Activity: Fall precautions Followup: [facility] [Primary Care Provider] - Shelby Dunham MD [ACTIVE - CAN ADMIT] -
[2024-04-16] MEDS ORDERED: PIPER TAZO 3.375 GM in NA CHLORIDE 0.9% 100 ML IV SCH (17:00)
== END 2024-04-16 14:45 | disposition home or self-care (01) | DRG 392 ==
LOC: ER 15:02 → 4TH 23:13 → 2ND 04-14 17:42
PROVIDERS: ADMIT Internal Medicine Sleep Medicine; ATTEND Hospitalist
DX: K52.9 Noninfective gastroenteritis and colitis, unspecified (principal); F41.9 Anxiety disorder, unspecified; N80.121 Deep endometriosis of right ovary; J45.909 Unspecified asthma, uncomplicated; K21.9 Gastro-esophageal reflux disease without esophagitis; D72.829 Elevated white blood cell count, unspecified; N94.9 Unspecified condition associated with female genital organs and menstrual cycle; K27.9 Peptic ulcer, site unspecified, unspecified as acute or chronic, without hemorrhage or perforation; N99.85 Post endometrial ablation syndrome; T81.89XA Other complications of procedures, not elsewhere classified, initial encounter; F17.200 Nicotine dependence, unspecified, uncomplicated; R10.2 Pelvic and perineal pain; Z71.6 Tobacco abuse counseling; Z88.1 Allergy status to other antibiotic agents; Z79.899 Other long term (current) drug therapy
CPT/HCPCS: 36415; 74177; 76705; 76856; 80048; 80053; 80061; 80069; 80076; 81003; 81025; 83605; 83690; 83735; 84100; 84443; 85025; 99285; J1171; J1650; J2405; J2470; J2543; J7030; Q9967